=== PATIENT | female | born 1965 | race Caucasian/White ===

== ENCOUNTER → 2017-06-14 | Outpatient (CLI) | payer BC ==
--- NOTE | 2017-06-14 17:01 | Diagnostic Imaging Report ---
PROCEDURE: CT chest without contrast. TECHNIQUE: Multiple contiguous axial images were obtained through the chest without the use of intravenous contrast. INDICATION: Chronic bronchitis. Asthma. COPD. Dyspnea. Shortness of air. History of tuberculosis. COMPARISON: Chest radiograph dated 04/28/2006. FINDINGS: Evaluation of the lung windows demonstrates no focal consolidation, pleural effusion, nor pneumothorax. There is minimal scarring and/or atelectasis on the left. No pulmonary nodules or masses are identified. No central endobronchial obstructive lesions are seen. Evaluation of the remainder of the cardiomediastinal structures demonstrates normal heart size. There is no large pericardial effusion. No pathologically enlarged or morphologically abnormal adenopathy is seen within the mediastinum, saul, nor axilla. Note is made of rounded hyperdensity at the level of the thoracic inlet just inferior to the left thyroid. It measures approximately 1.7 x 1.4 cm. Bony structures show no acute abnormalities. Included portions of the upper abdomen show hypodense appearance of the hepatic parenchyma consistent with background of hepatic steatosis. There is also hepatosplenomegaly. IMPRESSION: 1. No acute cardiopulmonary process. 2. Hyperdensity at the level of the thoracic inlet inferior to the left thyroid lobe. Conceivably, this could be of thyroid origin. Other soft tissue lesion or adenopathy is not excluded. Correlation with dedicated thyroid sonogram is recommended. 3. Hepatic steatosis with hepatosplenomegaly. Dictated by: Dictated on workstation # [id number]
== END ==
LOC: RAD 15:28
PROVIDERS: ATTEND Nurse Practitioner Family
DX: K76.0 Fatty (change of) liver, not elsewhere classified (principal); R16.2 Hepatomegaly with splenomegaly, not elsewhere classified; J45.909 Unspecified asthma, uncomplicated; J44.9 Chronic obstructive pulmonary disease, unspecified; J42 Unspecified chronic bronchitis; G47.30 Sleep apnea, unspecified; Z86.11 Personal history of tuberculosis
CPT/HCPCS: 71250; 94060; 94726; 94729

== ENCOUNTER → 2017-06-29 | Outpatient (CLI) | payer BC, OTHER ==
[~2017-06-29] MED LIST: CATHETER FLUSH 10 ML SYR IV PRN; IOHEXOL 350 MG/ML 150 ML (OMNIPAQUE 350) VIAL IV ONE; NS 100 ML (IVPB) BAG IV ONE
--- NOTE | 2017-06-29 15:48 | Diagnostic Imaging Report ---
PROCEDURE: CT angiography of the chest with contrast. TECHNIQUE: Multiple contiguous axial images were obtained through the chest after uneventful bolus administration of intravenous contrast. Reconstructed CTA MIP acquisitions were also performed. INDICATION: COPD. History of old aortic dissection repaired with an aortic graft. CONTRAST: 125 mL of Omnipaque 350 was administered intravenously. FINDINGS: There is a soft tissue nodule seen measuring 1.7 cm along the inferior aspect of the right thyroid lobe. This could be arising from the thyroid gland although it is difficult to confirm on this study. There is normal appearance and caliber of the thoracic aorta with no dissection flap seen. No evidence of a stent graft. The pulmonary arteries are well opacified with patent pulmonary trunk, right and left main pulmonary arteries, and lobar branches. At the branch point, however, of the right lower lobe branch, there is a nonocclusive embolus seen extending to the proximal aspect of the segmental branches in the right lower lobe. There is no mediastinal mass or lymphadenopathy. No hilar lymphadenopathy is seen. The heart size is normal. No pleural or pericardial effusion. The axilla demonstrates no significantly enlarged lymph node. The lungs demonstrate no significant consolidation or mass. Sections of the upper abdomen demonstrate diffuse hepatic steatosis. The liver size is also mildly enlarged. Surgical clips around the liver are seen. The spleen is mildly enlarged measuring 14.9 x 6.7 x 14 cm. A small upper abdominal ventral hernia containing fat is noted. There is minimal right convexity scoliotic curvature seen in the thoracic spine. IMPRESSION: 1. There is a nonocclusive pulmonary embolism involving the right lower lobe artery branch point seen. 2. A 1.7 cm soft tissue nodule abutting the undersurface of the left thyroid lobe could be arising from the thyroid although it is not clear on this exam. This could be verified with a thyroid ultrasound. 3. Mild hepatosplenomegaly. The patient has a fatty liver. 4. Small upper abdominal fat-containing ventral hernia. 5. The findings of pulmonary embolism were discussed with Dr. Avila by phone at the time of dictation. Dictated by: Dictated on workstation # [id number]
--- NOTE | 2017-06-29 15:49 | Diagnostic Imaging Report ---
EXAMINATION: Bilateral lower extremity duplex venous ultrasound. TECHNIQUE: DVT protocol. Multiple sonographic images with color Doppler and waveform interrogation were performed of the lower extremity veins, bilaterally, with compression and augmentation maneuvers. INDICATION: Bilateral leg swelling and shortness of breath. FINDINGS: The lower extremity veins from the common femoral veins to below the knee veins were examined with normal color-flow, compressibility and normal waveform demonstrated. The great saphenous vein bilaterally is patent. IMPRESSION: No evidence of DVT in either lower extremity. Dictated by: Dictated on workstation # [id number]
== END ==
LOC: RAD 14:43
PROVIDERS: ATTEND Internal Medicine Critical Care Medicine
DX: I26.99 Other pulmonary embolism without acute cor pulmonale (principal); R22.43 Localized swelling, mass and lump, lower limb, bilateral; E04.1 Nontoxic single thyroid nodule; K76.0 Fatty (change of) liver, not elsewhere classified; K43.9 Ventral hernia without obstruction or gangrene
CPT/HCPCS: 71275; 93970

== ENCOUNTER → 2017-06-30 | Outpatient (CLI) | payer BC ==
[2017-06-30 08:56] LABS: BASOPHILS % (AUTO) 1 % (0-10); EOSINOPHILS # (AUTO) 0.3 10^3/uL (0.0-0.3); EOSINOPHILS % (AUTO) 6 % (0-10); LYMPHOCYTES # (AUTO) 1.1 X 10^3 (1.0-4.0); LYMPHOCYTES % (AUTO) 24 % (12-44); MEAN CORPUSCULAR HEMOGLOBIN 26 PG (25-34); MEAN CORPUSCULAR HGB CONC 32 G/DL (32-36); MEAN CORPUSCULAR VOLUME 83 FL (80-99); MEAN PLATELET VOLUME 9.6 FL (7.4-10.4); MONOCYTES # (AUTO) 0.5 X 10^3 (0.0-1.0); MONOCYTES % (AUTO) 10 % (0-12); NEUTROPHILS # (AUTO) 2.9 X 10^3 (1.8-7.8); NEUTROPHILS % (AUTO) 60 % (42-75); PLATELET COUNT 223 10^3/uL (130-400); RED BLOOD COUNT 4.57 10^6/uL (4.35-5.85); RED CELL DISTRIBUTION WIDTH 14.1 % (10.0-14.5); WHITE BLOOD COUNT 4.8 10^3/uL (4.3-11.0)
[2017-06-30 09:16] LABS: ALANINE AMINOTRANSFERASE 14 U/L (0-55); ALBUMIN 3.7 GM/DL (3.2-4.5); ANION GAP 7 MMOL/L (5-14); ASPARTATE AMINO TRANSFERASE 16 U/L (5-34); BILIRUBIN,TOTAL 0.3 MG/DL (0.1-1.0); BLOOD UREA NITROGEN 10 MG/DL (7-18); BUN/CREATININE RATIO 14; CALCIUM 9.6 MG/DL (8.5-10.1); CARBON DIOXIDE 31 MMOL/L (21-32); CHLORIDE 106 MMOL/L (98-107); CREATININE SERUM 0.74 MG/DL (0.60-1.30); GFR ESTIMATED > 60; GLUCOSE 106 MG/DL (70-105); POTASSIUM 4.2 MMOL/L (3.6-5.0); SODIUM 144 MMOL/L (135-145); TOTAL PROTEIN 6.9 GM/DL (6.4-8.2)
[2017-06-30 10:00] LABS: EOSINOPHILS % (MANUAL) 5 %; LYMPHOCYTES % (MANUAL) 33 %; NEUTROPHILS % (MANUAL) 54 %
== END ==
LOC: LAB 08:37
PROVIDERS: ATTEND Nurse Practitioner Family
DX: J44.9 Chronic obstructive pulmonary disease, unspecified (principal)
CPT/HCPCS: 36415; 80053; 85007; 85027

== ENCOUNTER → 2017-10-19 | Outpatient (CLI) | payer BC ==
[2017-10-19 15:39] LABS: BASOPHILS % (AUTO) 0 % (0-10); EOSINOPHILS # (AUTO) 0.2 10^3/uL (0.0-0.3); EOSINOPHILS % (AUTO) 3 % (0-10); HEMATOCRIT 40 % (35-52); HEMOGLOBIN 12.4 G/DL (11.5-16.0); LYMPHOCYTES # (AUTO) 1.9 X 10^3 (1.0-4.0); LYMPHOCYTES % (AUTO) 27 % (12-44); MEAN CORPUSCULAR HEMOGLOBIN 25 PG (25-34); MEAN CORPUSCULAR HGB CONC 31 G/DL (32-36); MEAN CORPUSCULAR VOLUME 81 FL (80-99); MEAN PLATELET VOLUME 9.8 FL (7.4-10.4); MONOCYTES # (AUTO) 0.6 X 10^3 (0.0-1.0); MONOCYTES % (AUTO) 9 % (0-12); NEUTROPHILS # (AUTO) 4.3 X 10^3 (1.8-7.8); NEUTROPHILS % (AUTO) 61 % (42-75); PLATELET COUNT 243 10^3/uL (130-400); RED BLOOD COUNT 4.89 10^6/uL (4.35-5.85); RED CELL DISTRIBUTION WIDTH 13.7 % (10.0-14.5)
== END ==
LOC: LAB 15:24
PROVIDERS: ATTEND Nurse Practitioner Family
DX: J44.9 Chronic obstructive pulmonary disease, unspecified (principal); R09.02 Hypoxemia; I26.99 Other pulmonary embolism without acute cor pulmonale; J98.4 Other disorders of lung
CPT/HCPCS: 36415; 85025

== ENCOUNTER 2017-11-30 13:00 | Outpatient (RCR) | payer BC, OTHER | END 2017-12-03 | disposition home or self-care (01) | LOC: PULM 13:00 | PROVIDERS: ATTEND Nurse Practitioner Family | DX: F41.9 Anxiety disorder, unspecified (principal); J45.909 Unspecified asthma, uncomplicated; J44.9 Chronic obstructive pulmonary disease, unspecified; E07.9 Disorder of thyroid, unspecified; G47.30 Sleep apnea, unspecified; J98.4 Other disorders of lung; R94.2 Abnormal results of pulmonary function studies; R09.02 Hypoxemia | CPT/HCPCS: 99211 ==

== ENCOUNTER → 2017-12-05 | Outpatient (CLI) | payer BC, OTHER ==
[2017-12-05 14:24] LABS: HEMOGLOBIN 12.6 G/DL (11.5-16.0); MEAN PLATELET VOLUME 10.5 FL (7.4-10.4); RED BLOOD COUNT 4.93 10^6/uL (4.35-5.85); RED CELL DISTRIBUTION WIDTH 14.3 % (10.0-14.5); WHITE BLOOD COUNT 8.3 10^3/uL (4.3-11.0)
[2017-12-05 14:43] LABS: BUN/CREATININE RATIO 15; CREATININE SERUM 0.81 MG/DL (0.60-1.30); GFR ESTIMATED > 60
--- NOTE | 2017-12-05 16:10 | Diagnostic Imaging Report ---
PROCEDURE: CT angiography of the chest with contrast. TECHNIQUE: Multiple contiguous axial images were obtained through the chest after uneventful bolus administration of intravenous contrast. Reconstructed CTA MIP acquisitions were also performed. 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 COMPARISON: Comparison is made to study of 06/29/2017. FINDINGS: On the current examination, there is good opacification of pulmonary arteries without evidence of persistent or recurrent filling defect to indicate embolism. There are also persistent focal areas of pleural thickening and subpleural parenchymal densities in the left lung. Calcification is seen along the right diaphragmatic dome. There is a persistent 1.1 cm nodule projecting along the inferior margin of the left lobe of the thyroid gland. Otherwise, there is no evidence of significant pleural or pericardial fluid. No pathologic adenopathy is seen in the thorax. IMPRESSION: No CTA evidence of pulmonary embolism. Subpleural density likely represents scarring in the left lung. There has been mild overall increase in size of nodule along the inferior margin of the left lobe of the thyroid gland. Ultrasonography could be performed for further assessment. Dictated by: Dictated on workstation # [id number]
== END ==
LOC: RAD 10-19 15:21
PROVIDERS: ATTEND Nurse Practitioner Family
DX: J44.9 Chronic obstructive pulmonary disease, unspecified (principal); I26.99 Other pulmonary embolism without acute cor pulmonale; E04.1 Nontoxic single thyroid nodule; J98.4 Other disorders of lung; F41.9 Anxiety disorder, unspecified
CPT/HCPCS: 36415; 71275; 82565; 84520; 85027

== ENCOUNTER → 2017-12-12 | Outpatient (CLI) | payer BC ==
[2017-12-12 17:00] LABS: ABG BASE EXCESS 2.8 MMOL/L (-2.5-2.5); ABG OXYGEN SATURATION 97 % (94-100); ABG PCO2 47 MMHG (35-45); ABG PH 7.39 (7.37-7.43); ABG PO2 81 MMHG (79-93); ABG TCO2 28.9 MMOL/L (21.0-31.0); ALLENS TEST YES-POS; INSPIRED O2 3L; VENTILATOR NO
[2017-12-12 17:01] LABS: PATIENT TEMP 98.2
== END ==
LOC: PULM 15:37
PROVIDERS: ATTEND Nurse Practitioner Family
DX: J45.909 Unspecified asthma, uncomplicated (principal); J42 Unspecified chronic bronchitis; R94.2 Abnormal results of pulmonary function studies; R09.02 Hypoxemia; J98.4 Other disorders of lung
CPT/HCPCS: 82805

== ENCOUNTER → 2017-12-18 | Outpatient (CLI) | payer BC | LOC: RT 11:38 | PROVIDERS: ATTEND Nurse Practitioner Family | DX: J98.4 Other disorders of lung (principal); J45.909 Unspecified asthma, uncomplicated; J42 Unspecified chronic bronchitis | CPT/HCPCS: 94060; 94726; 94729 ==

== ENCOUNTER 2017-12-19 13:00 | Outpatient (RCR) | payer BC, OTHER | END 2018-03-07 | disposition home or self-care (01) | LOC: PULM 13:00 | PROVIDERS: ATTEND Nurse Practitioner Family | DX: F41.9 Anxiety disorder, unspecified (principal); J45.909 Unspecified asthma, uncomplicated; J44.9 Chronic obstructive pulmonary disease, unspecified; E07.9 Disorder of thyroid, unspecified; G47.30 Sleep apnea, unspecified; J98.4 Other disorders of lung; R94.2 Abnormal results of pulmonary function studies; R09.02 Hypoxemia ==

== ENCOUNTER 2018-07-17 14:37 | Outpatient (CLI) | payer BC ==
[~2018-07-17] VITALS: Ht 162.6 cm; Wt 129.3 kg
[2018-07-17] MEDS ORDERED: ARMO150T2 PO (14:50)
[2018-07-17] MEDS ORDERED: FLUT9.9S NS (14:50)
[2018-07-17] MEDS ORDERED: LOVA40TA2 PO (14:50)
[2018-07-17] MEDS ORDERED: PANT40TA3 PO (14:50)
[2018-07-17] MEDS ORDERED: NAPR220T66 PO (14:50)
[2018-07-17] MEDS ORDERED: TIOT18CA2 IH (14:50)
[2018-07-17] MEDS ORDERED: NF-ROPIN4T PO (14:50)
[2018-07-17] MEDS ORDERED: LEVO5TAB28 PO (14:50)
[2018-07-17] MEDS ORDERED: CETI10TA17 PO (14:50)
[2018-07-17] MEDS ORDERED: FESO8TAB PO (14:50)
[2018-07-17] MEDS ORDERED: TRAZ150T72 PO (14:50)
[2018-07-17] MEDS ORDERED: ACET-2650 PO (14:50)
[2018-07-17] MEDS ORDERED: BISA5TAB8 PO (14:50)
[2018-07-17] MEDS ORDERED: MILN100T PO (14:50)
[2018-07-17] MEDS ORDERED: FLUT1BLS IH (14:50)
[2018-07-17] MEDS ORDERED: LAMO100T69 PO (14:50)
[2018-07-17] MEDS ORDERED: ARIP5TAB12 PO (14:50)
[2018-07-17] MEDS ORDERED: THYR60TA27 PO (14:57)
== END 2018-07-17 15:09 | disposition home or self-care (01) ==
LOC: PREOP 14:37
PROVIDERS: ATTEND Surgery
DX: Z01.818 Encounter for other preprocedural examination (principal)

== ENCOUNTER 2018-07-18 11:37 | Day surgery (SDC) | payer BC ==
[~2018-07-18] VITALS: Ht 162.6 cm; Wt 129.3 kg
[~2018-07-18 11:37] MED LIST changes: +ACET-2650 PO; +ARIP5TAB12 PO; +ARMO150T2 PO; +BISA5TAB8 PO; -CATHETER FLUSH 10 ML SYR IV PRN; +CETI10TA17 PO; +FESO8TAB PO; +FLUT1BLS IH; +FLUT9.9S NS; -IOHEXOL 350 MG/ML 150 ML (OMNIPAQUE 350) VIAL IV ONE; +LAMO100T69 PO; +LEVO5TAB28 PO; +LOVA40TA2 PO; +MILN100T PO; +NAPR220T66 PO; +NF-ROPIN4T PO; -NS 100 ML (IVPB) BAG IV ONE; +PANT40TA3 PO; +THYR60TA27 PO; +TIOT18CA2 IH; +TRAZ150T72 PO
--- OUTSIDE RECORDS SUMMARY | 2018-07-18 11:41 | XMS REPORT | CCD ---
Author Author CYRUS INMAN Organization Unknown Address [address] [place] [address] Care Team Providers Care Threshing Department Supervisor Name Role Phone PURVI GRULLON, HUSAM SINGH Attphys Allergies Allergy Code Allergy Type Reaction Status PERCOCET 34328 Drug allergy ITCHING Active ALBUTEROL 435 Drug allergy TACHYCARDIA Active Active Medications No Active Medications Problems Unknown or Not Available. Procedures Procedure Code Procedure Type Date Arthrs kne surg w/meniscectomy med/lat w/shvg; (-LT Left side of body) 08403 CPT 05/27/2016 Results Unknown or Not Available. Function Status Unknown or Not Available. History of Immunizations Unknown or Not Available. Plan of Treatment Unknown or Not Available. Social History Smoking Status Code Start Date End Date Never smoker [id number] Vital Signs Vital Sign Value Unit Date/Time Recent/Initial? Weight Measured 260 [lb_av] 05/12/2016 12:23 Initial VS Height 65 [in_i] 05/12/2016 12:23 Initial VS BMI (Body Mass Index) 43.27 kg/m2 05/12/2016 12:23 Initial VS BSA (Body Surface Area) 2.33 m2 05/12/2016 12:23 Initial VS Respiratory Rate 16 /min 05/27/2016 09:53 Initial VS Heart Rate 82 /min 05/27/2016 09:53 Initial VS O2 % BldC Oximetry 90 % 05/27/2016 09:53 Initial VS BP Systolic 116 mm[Hg] 05/27/2016 09:54 Initial VS BP Diastolic 45 mm[Hg] 05/27/2016 09:54 Initial VS BP Systolic 130 mm[Hg] 05/27/2016 10:29 Most Recent VS BP Diastolic 57 mm[Hg] 05/27/2016 10:29 Most Recent VS Respiratory Rate 16 /min 05/27/2016 10:29 Most Recent VS Heart Rate 72 /min 05/27/2016 10:29 Most Recent VS O2 % BldC Oximetry 96 % 05/27/2016 10:29 Most Recent VS Function Status Unknown or Not Available. Goals Unknown or Not Available. ASSESSMENTS Unknown or Not Available. Health Concerns Section Unknown or Not Available.
--- OUTSIDE RECORDS SUMMARY | 2018-07-18 11:41 | XMS REPORT | CCD ---
Author Author IJEOMA BURT Organization Unknown Address [address] [address] [place] [address] Care Team Providers Care Cancer Registrar Name Role Phone HOLLI PHYS, JO ER Attphys HOLLI PHYS, JO ER Prisurg Allergies Allergy Code Allergy Type Reaction Status PERCOCET 32492 Drug allergy ITCHING Active ALBUTEROL 435 Drug allergy TACHYCARDIA Active Active Medications Unknown or Not Available. Problems Unknown or Not Available. Procedures Procedure Code Procedure Type Date FOOT [id number] 12/28/2016 KNEE [id number] 12/28/2016 Results Unknown or Not Available. Encounters Encounter Diagnosis Diagnosis Code Start Date Abrasion, left knee, initial encounter [id number] 12/28/2016 Function Status Unknown or Not Available. History of Immunizations Immunization Code Date influenza, split (incl. purified surface antigen) 15 07/25/2008 influenza, split (incl. purified surface antigen) 15 07/06/2009 Tdap 115 04/26/2012 Plan of Treatment Unknown or Not Available. Social History Smoking Status Code Start Date End Date Never smoker [id number] Vital Signs Unknown or Not Available. Function Status Unknown or Not Available. Goals Unknown or Not Available. ASSESSMENTS Unknown or Not Available. Health Concerns Section Unknown or Not Available.
--- OUTSIDE RECORDS SUMMARY | 2018-07-18 11:46 | XMS REPORT ---
Author Author Sean Marie [facility] Address [address] [place], [place] [id number] Care Team Providers Care Student Dean Name Role Phone Sean Marie PCP Sean Marie PreferredProvider Allergies and Adverse Reactions Name Reaction Notes Albuterol tachycardia increases heart rate too much Percocet "head crawling" Adhesive Tape Plan of Treatment Planned Activity Comments Planned Date Planned Time Plan/Goal Mammography; bilateral 11/13/2017 12:00 AM CBC With Auto Differential 01/08/2013 12:00 AM CBC With Auto Differential 05/22/2018 12:00 AM CMP 05/22/2018 12:00 AM Thyroid stimulating hormone (TSH) 05/22/2018 12:00 AM T4 FREE 05/22/2018 12:00 AM T3 FREE 05/22/2018 12:00 AM EKG (12-lead electrocardiogram) 06/26/2013 12:00 AM fibromyalgia, RLS EKG (12-lead electrocardiogram) 04/01/2015 12:00 AM Medications Active Name Start Date Estimated Completion Date SIG Comments pravastatin 20 mg oral tablet 02/03/2014 TAKE ONE TABLET BY MOUTH EVERY DAY AT BEDTIME lovastatin 40 mg oral tablet 06/12/2014 take 1 tablet by oral route daily baclofen 10 mg oral tablet 08/22/2014 take 1 tablet by oral route 3 times a day as needed lovastatin 40 mg oral tablet 10/06/2014 TAKE ONE TABLET BY MOUTH ONCE DAILY AT BEDTIME lovastatin 40 mg oral tablet 11/10/2014 TAKE ONE TABLET BY MOUTH ONCE DAILY AT BEDTIME lovastatin 40 mg oral tablet 02/03/2015 TAKE ONE TABLET BY MOUTH ONCE DAILY AT BEDTIME lovastatin 40 mg oral tablet 05/11/2015 TAKE ONE TABLET BY MOUTH ONCE DAILY AT BEDTIME ropinirole 2 mg oral tablet 07/13/2015 TAKE ONE TABLET BY MOUTH ONCE DAILY AT BEDTIME furosemide 40 mg oral tablet 09/21/2015 TAKE ONE TABLET BY MOUTH ONCE DAILY IN THE MORNING NEEDED lovastatin 40 mg oral tablet 11/02/2015 TAKE ONE TABLET BY MOUTH ONCE DAILY AT BEDTIME pantoprazole 40 mg oral tablet,delayed release (DR/EC) 12/08/2015 TAKE ONE TABLET BY MOUTH ONCE DAILY Xopenex HFA 45 mcg/actuation inhalation HFA aerosol inhaler 09/19/2016 inhale 2 puffs (90 mcg) by inhalation route every 6 hours furosemide 40 mg oral tablet 03/20/2017 take 1-2 tablets by oral route daily as needed Flonase Allergy Relief 50 mcg/actuation nasal spray,suspension Singulair oral Zyrtec oral Breo Ellipta 100-25 mcg/dose inhalation blister with device 07/07/2017 inhale 1 puff by inhalation route once daily at the same time each day Xanax 0.25 mg oral tablet 09/11/2017 take 1 tablet by oral route 2 times a day as needed Toviaz 8 mg oral tablet extended release 24 hr 02/27/2018 TAKE ONE TABLET BY MOUTH ONCE DAILY Nuvigil 150 mg oral tablet 02/28/2018 06/28/2018 take 1 tablet (150 mg) by oral route once daily in the morning for 30 days lamotrigine 100 mg oral tablet 03/26/2018 TAKE ONE TABLET BY MOUTH ONCE DAILY (FILL AFTER TAPER OF 25 MG IS COMPLETE) Savella 50 mg oral tablet take 1 tablet (50 mg) by oral route 2 times per day Tylenol Arthritis Pain 650 mg oral tablet extended release take 2 tablets (1,300 mg) by oral route every 8 hours swallowing whole with water. Do not break, crush, dissolve and/or chew. Aleve 220 mg oral tablet take 2 tablet by oral route every 12 hours as needed trazodone 150 mg oral tablet take 1 tablet at bedtime aripiprazole 5 mg oral tablet 05/14/2018 TAKE 1 TABLET BY MOUTH ONCE DAILY Name Start Date Expiration Date SIG Comments Synthroid 50 mcg oral tablet 11/16/2009 02/14/2010 1QD - TAKE ONE TABLET BY MOUTH EVERY DAY Bactrim DS 800-160 mg oral tablet 02/08/2010 02/22/2010 take 1 tablet by oral route every 12 hours for 14 days Medrol (Jeronimo) 4 mg oral tablets,dose pack 03/03/2010 03/13/2010 take as directed for 5 days Levaquin 500 mg oral tablet 03/03/2010 03/10/2010 take 1 tablet (500 mg) by oral route once daily for 7 days SYNTHROID 50MCG TAB 50 each 12/13/2010 03/13/2011 1QD - TAKE ONE TABLET BY MOUTH EVERY DAY Flagyl 500 mg oral tablet 03/03/2011 03/10/2011 take 1 tablet (500 mg) by oral route every 12 hours for 7 days Lunesta 3 mg oral tablet 03/08/2011 03/08/2011 take 1 tablet (3 mg) by oral route once daily at bedtime Requip 2 mg oral tablet 04/19/2011 04/13/2012 1HS - TAKE ONE TABLET BY MOUTH AT BEDTIME Zithromax Z-Jeronimo 250 mg oral tablet 07/12/2011 07/17/2011 take 2 tablets ( 500 mg) by oral route once daily for 1 day then 1 tablet (250 mg) by oral route once daily for 4 days Levaquin 500 mg oral tablet 08/05/2011 08/12/2011 take 1 tablet (500 mg) by oral route once daily for 7 days Tussionex Pennkinetic ER 10-8 mg/5 mL oral suspension,extended rel 12 hr 201008/15/2011 take 5 milliliters by oral route every 12 hours for 10 days Levaquin 750 mg oral tablet 10/24/2011 10/31/2011 take 1 tablet by oral route daily for 7 days venlafaxine 150 mg oral capsule,extended release 24hr 03/05/2012 06/03/2012 TAKE ONE CAPSULE BY MOUTH EVERY DAY amoxicillin 500 mg oral capsule 10/30/2012 11/09/2012 take 2 capsules by oral route 3 times a day for 5 days Dexilant 60 mg oral capsule,biphase delayed releas 01/08/2013 01/03/2014 take 1 capsule (60 mg) by oral route once daily for 90 days prednisone 20 mg oral tablet 05/03/2013 05/12/2013 take 3 tabs PO x 3 days, then 2 tabs PO x 3 days, and then 1 tab PO x 3 days ropinirole 2 mg oral tablet 07/01/2013 08/30/2013 TAKE ONE TABLET BY MOUTH AT BEDTIME levothyroxine 75 mcg oral tablet 05/06/2013 06/05/2013 TAKE ONE TABLET BY MOUTH EVERY DAY loratadine 10 mg oral tablet 06/17/2013 07/17/2013 TAKE ONE TABLET BY MOUTH EVERY DAY Zithromax Z-Jeronimo 250 mg oral tablet 07/24/2013 07/29/2013 take 2 tablets ( 500 mg) by oral route once daily for 1 day then 1 tablet (250 mg) by oral route once daily for 4 days Cymbalta 60 mg oral capsule,delayed release(DR/EC) 11/14/2013 11/09/2014 TAKE ONE CAPSULE BY MOUTH EVERY DAY pravastatin 20 mg oral tablet 11/21/2013 02/19/2014 take 1 tablet (20 mg) by oral route once daily at bedtime for 30 days Naprosyn 500 mg oral tablet 08/01/2014 08/31/2014 take 1 tablet (500 mg) by oral route 2 times per day with food for 30 days Keflex 500 mg oral capsule 10/22/2014 10/29/2014 take 1 capsule (500 mg) by oral route every 12 hours for 7 days Vibramycin 100 mg oral capsule 01/26/2015 02/09/2015 take 1 capsule (100 mg) by oral route every 12 hours for 14 days Protonix 40 mg oral tablet,delayed release (DR/EC) 03/19/2015 06/11/2016 take 1 tablet (40 mg) by oral route once daily for 90 days Levaquin 500 mg oral tablet 04/01/2015 04/08/2015 take 1 tablet by oral route daily for 7 days Skelaxin 800 mg oral tablet 06/05/2015 07/05/2015 take 1 tablet (800 mg) by oral route 3 times per day as needed for 30 days Toviaz 8 mg oral tablet extended release 24 hr 08/25/2015 11/17/2016 take 1 tablet (8 mg) by oral route once daily for 90 days Flagyl 500 mg oral tablet 11/03/2015 11/10/2015 take 1 tablet (500 mg) by oral route every 12 hours for 7 days azithromycin 250 mg oral tablet 12/09/2015 12/14/2015 take 2 tablets (500 mg) by oral route once daily for 1 day then 1 tablet (250 mg) by oral route once daily for 4 days orphenadrine citrate 100 mg oral tablet extended release 12/31/2015 04/29/2016 take 1 tablet (100 mg) by oral route 2 times per day in the morning and evening for 30 days prednisone 20 mg oral tablet 01/16/2016 01/20/2016 take 2 tabs daily x 2 days then 1 tab daily x 2 days triamcinolone acetonide 0.1 % topical cream 01/16/2016 01/23/2016 apply a thin layer to the affected area(s) by topical route 2 times per day for 7 days Lyrica 75 mg oral capsule 02/25/2016 03/10/2016 take 2 capsules (150 mg) by oral route 2 times per day for 14 days amitriptyline 50 mg oral tablet 05/20/2016 09/17/2016 take 1 tablet (50 mg) by oral route once daily at bedtime for 30 days Brovana 15 mcg/2 mL inhalation solution for nebulization 09/19/20162016 inhale 2 milliliters (15 mcg) by inhalation route 2 times per day for 30 days Bactrim DS 800-160 mg oral tablet 03/03/2017 03/10/2017 take 1 tablet by oral route 2 times per day for 7 days Cymbalta 30 mg oral capsule,delayed release(DR/EC) 03/20/2017 07/18/2017 take 1 capsule (30 mg) by oral route once daily for 30 days oxycodone 15 mg oral tablet 07/31/2017 take 1 tablet (15 mg) by oral route every 4 hours HAND PICKER Thyroid 60 mg oral tablet 07/31/2017 07/31/2017 TAKE ONE TABLET BY MOUTH ONCE DAILY Toviaz 8 mg oral tablet extended release 24 hr 09/26/2017 09/26/2017 TAKE ONE TABLET BY MOUTH ONCE DAILY ropinirole 4 mg oral tablet 10/10/2017 10/10/2017 TAKE ONE TABLET BY MOUTH ONCE DAILY 1-3 HOURS BEFORE BEDTIME OxyContin 40 mg oral tablet,oral only,ext.rel.12 hr 10/23/2017 11/22/2017 take 1 tablet (40 mg) by oral route every 12 hours for 30 days lovastatin 40 mg oral tablet 10/30/2017 10/30/2017 TAKE ONE TABLET BY MOUTH ONCE DAILY AT BEDTIME lamotrigine 100 mg oral tablet 10/30/2017 10/30/2017 TAKE ONE TABLET BY MOUTH ONCE DAILY Spiriva Respimat 2.5 mcg/actuation inhalation mist 11/29/2017 11/29/2017 INHALE TWO SPRAY(S) BY MOUTH ONCE DAILY AT THE SAME TIME EACH DAY levalbuterol tartrate 45 mcg/actuation inhalation HFA aerosol inhaler 201711/29/2017 INHALE TWO PUFFS INTO LUNGS EVERY 6 HOURS pantoprazole 40 mg oral tablet,delayed release (DR/EC) 12/04/2017 12/04/2017 TAKE ONE TABLET BY MOUTH ONCE DAILY duloxetine 60 mg oral capsule,delayed release(DR/EC) 12/25/2017 12/25/2017 TAKE ONE CAPSULE BY MOUTH ONCE DAILY Movantik 25 mg oral tablet 12/25/2017 12/25/2017 TAKE ONE TABLET BY MOUTH IN THE MORNING tizanidine 4 mg oral tablet 01/01/2018 01/01/2018 TAKE ONE TABLET BY MOUTH EVERY 8 HOURS NEEDED FOR 30 DAYS (NOT TO EXCEED 3 DOSES IN 24 HOURS) OxyContin 40 mg oral tablet,oral only,ext.rel.12 hr 03/09/2018 04/08/2018 take 1 tablet (40 mg) by oral route every 12 hours for 30 days Lunesta 3 mg oral tablet 03/29/2018 04/28/2018 take 1 tablet (3 mg) by oral route once daily at bedtime for 30 days Discontinued Name Start Date Discontinued Date SIG Comments Lortab 5-500 mg oral tablet 02/08/2010 03/03/2010 take 1 tablet by oral route every 4 hours as needed for pain Ambien 10 mg oral tablet 02/08/2010 03/08/2011 take 1 tablet (10 mg) by oral route once daily at bedtime AMBIEN 10MG TAB 10 each 01/03/2011 03/08/2011 1HSPRN FOR INSOMNIA - TAKE ONE TABLET BY MOUTH AT BEDTIME NEEDED FOR INSOMNIA Dexilant 60 mg oral capsule,biphase delayed releas 03/03/2011 03/23/2011 take 1 capsule (60 mg) by oral route once daily for 90 days Seroquel 50 mg oral tablet 03/17/2011 03/23/2011 take 1 tablet by oral route once a day (at bedtime) Ambien 10 mg oral tablet 04/13/2011 take 1 tablet (10 mg) by oral route once daily at bedtime tramadol 50 mg oral tablet 07/12/2011 take 1 tablet by oral route every 6 hours Mobic 7.5 mg oral tablet 07/12/2011 take 1 tablet (7.5 mg) by oral route once daily folic acid 800 mcg oral tablet 02/27/2013 take 1 tablet (0.8 mg) by oral route once daily niacin 500 mg oral tablet 02/27/2013 take 1 tab @ HS aspirin 81 mg oral tablet,delayed release (DR/EC) 07/07/2017 take 1 tablet (81 mg) by oral route once daily triamcinolone acetonide 0.1 % topical cream 07/12/2011 05/03/2013 apply a thin layer to the affected area(s) by topical route 2 times per day Alen DM Cough and Chest 10-200 mg/5 mL oral liquid 07/12/2011 07/13/2011 take 5 milliliters by oral route 2 times a day hydrocodone-chlorpheniramine 10-8 mg/5 mL oral suspension,extended rel 12 hr 07/13/2011 02/27/2013 take 5 milliliters by oral route every 12 hours Toviaz 8 mg oral tablet extended release 24 hr 06/26/2013 take 1 tablet (8 mg) by oral route once daily Lortab 5-500 mg oral tablet 10/30/2012 06/09/2014 take 1 tablet by oral route 4 times a day as needed Premarin 0.625 mg/gram vaginal cream 10/30/2012 05/03/2013 insert 0.5 gram by vaginal route twice weekly Provera 5 mg oral tablet 03/05/2013 05/03/2013 take 1 tablet (5 mg) by oral route once daily promethazine-codeine 6.25-10 mg/5 mL oral syrup 03/28/2013 05/03/2013 take 5 milliliters by oral route every 6 hours as needed, not to exceed 30 mL in 24 hours Singulair 10 mg oral tablet 03/27/2013 11/24/2014 take 1 tablet (10 mg) by oral route once daily in the evening tramadol 50 mg oral tablet 11/14/2013 06/09/2014 take 1 tablet by oral route 3 times a day Estrace 0.01 % (0.1 mg/gram) vaginal cream 11/14/2013 06/09/2014 use vaginally twice a week Lyrica 75 mg oral capsule 11/25/2013 12/02/2013 take 1 capsule (75 mg) by oral route 2 times per day Lamar Thyroid 60 mg oral tablet 12/02/2013 take 1 tablet by oral route daily for 30 days Lamar Thyroid 60 mg oral tablet 04/07/2014 TAKE ONE TABLET BY MOUTH ONCE DAILY milk thistle oral 11/24/2014 chromium picolinate oral 06/09/2014 Zofran ODT oral 10/09/2015 Dexilant 60 mg oral capsule,biphase delayed releas 07/09/2014 11/24/2014 TAKE ONE CAPSULE BY MOUTH EVERY DAY Lamar Thyroid 60 mg oral tablet 08/04/2014 TAKE ONE TABLET BY MOUTH ONCE DAILY Abilify 5 mg oral tablet 11/24/2014 take 1 tablet (5 mg) by oral route once daily Naprosyn 500 mg oral tablet 08/11/2014 08/22/2014 take 1 tablet (500 mg) by oral route 2 times per day with food for 30 days Zantac 150 mg oral tablet 08/11/2014 03/04/2015 take 1 tablet (150 mg) by oral route 2 times per day for 90 days starting dexilant Dulera 200-5 mcg/actuation inhalation HFA aerosol inhaler 08/11/20142014 inhale 2 puffs by inhalation route 2 times a day Ambien 5 mg oral tablet 10/09/2015 take 1 tablet (5 mg) by oral route once daily at bedtime [place] 5-325 mg oral tablet 08/22/2014 11/24/2014 take 1 tablet by oral route every 6 hours as needed for pain trazodone 150 mg oral tablet 11/17/2014 04/01/2015 TAKE ONE TABLET BY MOUTH EVERY DAY AT BEDTIME Abilify 2 mg oral tablet 05/20/2016 phentermine 37.5 mg oral tablet 10/09/2015 take 1 tablet in morning Dexilant 60 mg oral capsule,biphase delayed releas 03/05/2015 take 1 capsule (60 mg) by oral route once daily Requip 2 mg oral tablet 03/19/2015 10/09/2015 take 1 tablet by mouth at bedtime. for 90 days Garcinia Cambogia 200-500 mcg-mg oral tablet 10/09/2015 triamcinolone acetonide 0.1 % topical cream 05/06/2015 10/09/2015 apply a thin layer to the affected area(s) by topical route 2 times per day Lamar Thyroid 60 mg oral tablet 07/13/2015 TAKE ONE TABLET BY MOUTH ONCE DAILY Xopenex 1.25 mg/3 mL inhalation solution for nebulization 08/21/20152016 inhale 3 milliliters (1.25 mg) by nebulization route 3 times per day promethazine-codeine 6.25-10 mg/5 mL oral syrup 08/25/2015 10/09/2015 take 5 milliliters by oral route every 6 hours as needed, not to exceed 30 mL in 24 hours Pennsaid 20 mg/gram /actuation(2 %) topical solution in metered-dose pump 11/03/2015 apply 2 pumps (40 mg) to the affected knee(s) by topical route 2 times per day Saxenda 3 mg/0.5 mL (18 mg/3 mL) subcutaneous pen injector 09/10/20152015 inject 0.5 milliliter (3 mg) by subcutaneous route once daily in the abdomen, thigh, or upper arm metaxalone 800 mg oral tablet 10/12/2015 11/17/2015 TAKE ONE TABLET BY MOUTH THREE TIMES DAILY NEEDED Lyrica 75 mg oral capsule 10/12/2015 11/17/2015 take 1 capsule by oral route 3 times a day for 30 days Movantik 25 mg oral tablet 07/01/2016 09/19/2016 take 1 tablet (25 mg) by oral route once daily in the morning for 30 days Lamar Thyroid 60 mg oral tablet 07/11/2016 08/09/2017 TAKE ONE TABLET BY MOUTH ONCE DAILY Abilify 10 mg oral tablet 09/23/2016 03/03/2017 take 1 tablet (10 mg) by oral route once daily Amitiza 8 mcg oral capsule 03/03/2017 take 1 capsule (8 mcg) by oral route 2 times per day with food and water Premarin 0.3 mg oral tablet 01/09/2017 07/07/2017 take 1 tablet (0.3 mg) by oral route once daily for 30 days Xarelto 15 mg oral tablet 08/31/2017 take 1 tablet (15 mg) by oral route 2 times per day with food Lamictal 100 mg oral tablet 07/07/2017 04/30/2018 take 1 tablet (100 mg) by oral route once daily for 30 days duloxetine 30 mg oral capsule,delayed release(DR/EC) 07/10/2017 04/11/2018 TAKE ONE CAPSULE BY MOUTH ONCE DAILY cyclobenzaprine 10 mg oral tablet 08/09/2017 10/27/2017 take 1 tablet by oral route 3 times a day as needed Saxenda 3 mg/0.5 mL (18 mg/3 mL) subcutaneous pen injector 08/09/20172017 inject 3 mg by subcutaneous route once daily in the abdomen, thigh, or upper arm Xarelto 20 mg oral tablet 01/29/2018 take 1 tablet (20 mg) by oral route once daily with the evening meal [place] 10-325 mg oral tablet 01/19/2018 04/30/2018 take 1 tablet by oral route every 6 hours as needed for pain Abilify 5 mg oral tablet 01/19/2018 05/22/2018 take 1 tablet (5 mg) by oral route once daily Ambien 10 mg oral tablet 03/26/2018 04/30/2018 take 1 tablet (10 mg) by oral route once daily at bedtime for 30 days gabapentin 600 mg oral tablet 03/29/2018 04/11/2018 take 1 tablet (600 mg) by oral route at HS gabapentin 300 mg oral capsule 03/29/2018 04/11/2018 take 1 capsule (300 mg) by oral route 2 times per day Belsomra 10 mg oral tablet 04/30/2018 TAKE 1 TABLET BY MOUTH AT BEDTIME FOR INSOMNIA clonidine HCl 0.1 mg oral tablet 04/23/2018 05/22/2018 take 1 tablet by oral route 3 times a day as needed for 30 days Belsomra 15 mg oral tablet 04/23/2018 04/30/2018 TAKE 1 TABLET BY MOUTH AT BEDTIME Belsomra 20 mg oral tablet 05/04/2018 05/09/2018 TAKE 1 TABLET BY MOUTH AT BEDTIME Problem List Description Status Onset Hypothyroidism, acquired Active Allergic rhinitis; due to other allergen Active Chronic Obstructive Pulmonary Disease Active 10/24/2011 Osteoarthritis Active 11/14/2013 Hyperlipidemia, unspecified Active 06/11/2014 Vital Signs Date Time BP-Sys(mm[Hg] BP-Jocelyn(mm[Hg]) HR(bpm) RR(rpm) Temp WT HT HC BMI BSA BMI Percentile O2 Sat(%) 05/22/2018 2:37:00 PM 146 mmHg 98 mmHg 87 bpm 18 rpm 97.9 F 289.25 lbs 65 in 48.1332 kg/m 2.453 m 97 % 04/30/2018 2:17:00 PM 140 mmHg 92 mmHg 95 bpm 20 rpm 98.2 F 286.375 lbs 65 in 47.65 kg/m2 2.44 m2 97 % 04/11/2018 1:12:00 PM 138 mmHg 84 mmHg 92 bpm 98.2 F 282.125 lbs 65 in 46.9476 kg/m 2.4226 m 97 % 03/29/2018 3:06:00 PM 138 mmHg 78 mmHg 84 bpm 18 rpm 98.4 F 278 lbs 65 in 46.26 kg/m2 2.40 m2 98 % 03/09/2018 8:58:00 AM 151 mmHg 85 mmHg 94 bpm 18 rpm 98.8 F 271.25 lbs 65 in 45.1379 kg/m 2.3754 m 95 % 02/28/2018 8:02:00 AM 130 mmHg 74 mmHg 89 bpm 18 rpm 97.9 F 268.125 lbs 65 in 44.62 kg/m2 2.36 m2 97 % 01/29/2018 3:32:00 PM 149 mmHg 81 mmHg 89 bpm 98.6 F 263.375 lbs 65 in 43.8274 kg/m 2.3407 m 10/27/2017 9:06:00 AM 130 mmHg 75 mmHg 90 bpm 20 rpm 99.2 F 264 lbs 65 in 43.93 kg/m2 2.34 m2 97 % 10/23/2017 8:32:00 AM 166 mmHg 84 mmHg 87 bpm 16 rpm 98.9 F 270 lbs 65 in 44.9299 kg/m 2.3699 m 97 % 09/20/2017 11:24:00 AM 150 mmHg 80 mmHg 83 bpm 98.8 F 268.25 lbs 97 % 08/31/2017 2:54:00 PM 140 mmHg 82 mmHg 87 bpm 99 F 276.125 lbs 96 % 08/09/2017 9:19:00 AM 144 mmHg 82 mmHg 34 bpm 83 rpm 97.5 F 274 lbs 65 in 45.5955 kg/m 2.3874 m 97 % 07/07/2017 8:42:00 AM 152 mmHg 76 mmHg 77 bpm 16 rpm 96.7 F 273 lbs 65 in 45.43 kg/m2 2.38 m2 93 % 06/16/2017 10:22:00 AM 142 mmHg 82 mmHg 78 bpm 18 rpm 97.7 F 274 lbs 65 in 45.5955 kg/m 2.3874 m 95 % 05/15/2017 8:51:00 AM 132 mmHg 76 mmHg 81 bpm 14 rpm 97 F 275 lbs 65 in 45.76 kg/m2 2.39 m2 99 % 04/23/2017 2:37:00 PM 126 mmHg 82 mmHg 84 bpm 18 rpm 98 F 280 lbs 65 in 46.594 kg/m 2.4134 m 91 % 04/14/2017 8:26:00 AM 140 mmHg 82 mmHg 84 bpm 16 rpm 97.8 F 273 lbs 65 in 45.43 kg/m2 2.38 m2 96 % 03/20/2017 2:26:00 PM 122 mmHg 86 mmHg 94 bpm 16 rpm 96.6 F 280.375 lbs 65 in 46.6564 kg/m 2.415 m 96 % 03/03/2017 5:08:00 PM 122 mmHg 78 mmHg 90 bpm 18 rpm 99.3 F 270 lbs 65 in 44.93 kg/m2 2.37 m2 91 % 01/09/2017 1:43:00 PM 140 mmHg 90 mmHg 88 bpm 16 rpm 98.5 F 274 lbs 65 in 45.5955 kg/m 2.3874 m 98 % 01/02/2017 1:38:00 PM 134 mmHg 86 mmHg 90 bpm 16 rpm 98.9 F 276 lbs 65 in 45.93 kg/m2 2.40 m2 98 % 12/27/2016 3:11:00 PM 132 mmHg 86 mmHg 83 bpm 18 rpm 97.5 F 273 lbs 65 in 45.4291 kg/m 2.3831 m 95 % 2016 8:49:00 AM 140 mmHg 84 mmHg 87 bpm 16 rpm 97.1 F 270 lbs 65 in 44.93 kg/m2 2.37 m2 96 % 09/19/2016 10:12:00 AM 140 mmHg 74 mmHg 86 bpm 18 rpm 97.8 F 263.25 lbs 65 in 43.8066 kg/m 2.3401 m 97 % 07/01/2016 8:25:00 AM 146 mmHg 78 mmHg 93 bpm 20 rpm 97 F 271 lbs 65 in 45.10 kg/m2 2.37 m2 95 % 06/17/2016 10:55:00 AM 140 mmHg 82 mmHg 78 bpm 18 rpm 98.2 F 268 lbs 65 in 44.5971 kg/m 2.3611 m 95 % 05/20/2016 9:29:00 AM 128 mmHg 82 mmHg 85 bpm 17 rpm 97.8 F 269 lbs 65 in 44.76 kg/m2 2.37 m2 95 % 04/01/2016 9:58:00 AM 142 mmHg 88 mmHg 80 bpm 16 rpm 97.9 F 259 lbs 65 in 43.0994 kg/m 2.3212 m 94 % 02/25/2016 3:55:00 PM 152 mmHg 88 mmHg 81 bpm 18 rpm 97.8 F 265.25 lbs 65 in 44.14 kg/m2 2.35 m2 93 % 01/16/2016 10:58:00 AM 136 mmHg 76 mmHg 78 bpm 16 rpm 99.1 F 263 lbs 65 in 43.765 kg/m 2.339 m 98 % 12/31/2015 2:34:00 PM 144 mmHg 82 mmHg 87 bpm 16 rpm 97.9 F 264 lbs 65 in 43.93 kg/m2 2.34 m2 95 % 12/09/2015 5:15:00 PM 138 mmHg 74 mmHg 89 bpm 98.3 F 262 lbs 65 in 43.5986 kg/m 2.3346 m 95 % 11/17/2015 3:00:00 PM 110 mmHg 68 mmHg 86 bpm 19 rpm 269 lbs 65 in 44.76 kg/m2 2.37 m2 98 % 11/03/2015 8:34:00 AM 136 mmHg 84 mmHg 83 bpm 16 rpm 98.1 F 271 lbs 65 in 45.0963 kg/m 2.3743 m 95 % 10/09/2015 8:47:00 AM 144 mmHg 84 mmHg 82 bpm 18 rpm 97.2 F 268 lbs 65 in 44.60 kg/m2 2.36 m2 95 % 08/31/2015 3:10:00 PM 132 mmHg 76 mmHg 84 bpm 18 rpm 98.3 F 259 lbs 65 in 43.0994 kg/m 2.3212 m 94 % 08/25/2015 10:09:00 AM 110 mmHg 80 mmHg 90 bpm 18 rpm 98 F 265 lbs 65 in 44.10 kg/m2 2.35 m2 90 % 06/05/2015 9:52:00 AM 138 mmHg 82 mmHg 90 bpm 18 rpm 97.8 F 256 lbs 65 in 42.6002 kg/m 2.3077 m 94 % 05/07/2015 6:36:00 PM 132 mmHg 68 mmHg 84 bpm 18 rpm 97 F 257.437 lbs 65 in 42.84 kg/m2 2.31 m2 99 % 05/06/2015 1:29:00 PM 134 mmHg 74 mmHg 71 bpm 18 rpm 97.8 F 257.25 lbs 65 in 42.8082 kg/m 2.3133 m 96 % 04/01/2015 8:38:00 AM 128 mmHg 72 mmHg 73 bpm 18 rpm 98.2 F 252 lbs 65 in 41.93 kg/m2 2.29 m2 93 % 04/01/2015 8:38:00 AM 102 mmHg 68 mmHg 03/26/2015 3:01:00 PM 124 mmHg 76 mmHg 72 bpm 18 rpm 97.8 F 253 lbs 65 in 42.101 kg/m 2.2941 m 03/19/2015 1:09:00 PM 118 mmHg 72 mmHg 88 bpm 18 rpm 96.8 F 254 lbs 65 in 42.27 kg/m2 2.30 m2 93 % 02/13/2015 8:55:00 AM 152 mmHg 84 mmHg 80 bpm 16 rpm 98.2 F 258 lbs 65 in 42.933 kg/m 2.3167 m 01/26/2015 3:23:00 PM 121 mmHg 84 mmHg 81 bpm 20 rpm 97.2 F 259 lbs 65 in 43.10 kg/m2 2.32 m2 99 % 01/12/2015 9:01:00 AM 152 mmHg 86 mmHg 88 bpm 18 rpm 98.6 F 273 lbs 65 in 45.4291 kg/m 2.3831 m 11/24/2014 1:54:00 PM 126 mmHg 72 mmHg 88 bpm 18 rpm 98.9 F 260 lbs 65 in 43.27 kg/m2 2.33 m2 98 % 10/22/2014 1:46:00 PM 128 mmHg 80 mmHg 92 bpm 16 rpm 96.8 F 262 lbs 65 in 43.5986 kg/m 2.3346 m 97 % 08/22/2014 8:44:00 AM 156 mmHg 80 mmHg 94 bpm 18 rpm 98.4 F 256 lbs 65 in 42.60 kg/m2 2.31 m2 08/01/2014 10:05:00 AM 156 mmHg 98 mmHg 78 bpm 18 rpm 98.1 F 262 lbs 65 in 43.5986 kg/m 2.3346 m 06/09/2014 2:55:00 PM 138 mmHg 64 mmHg 85 bpm 18 rpm 96.6 F 260.062 lbs 65 in 43.28 kg/m2 2.33 m2 98 % 03/14/2014 8:23:00 AM 124 mmHg 64 mmHg 86 bpm 18 rpm 97.3 F 260.4 lbs 65 in 43.3324 kg/m 2.3274 m 96 % 02/27/2014 2:29:00 PM 122 mmHg 81 mmHg 81 bpm 20 rpm 97.3 F 259.2 lbs 65 in 43.13 kg/m2 2.32 m2 95 % 12/02/2013 9:53:00 AM 152 mmHg 88 mmHg 92 bpm 18 rpm 97 F 263 lbs 65 in 43.765 kg/m 2.339 m 11/25/2013 9:20:00 AM 140 mmHg 82 mmHg 92 bpm 18 rpm 97.6 F 264.375 lbs 65 in 43.99 kg/m2 2.35 m2 95 % 11/14/2013 2:23:00 PM 128 mmHg 72 mmHg 92 bpm 18 rpm 98 F 264.125 lbs 65 in 43.9522 kg/m 2.344 m 97 % 08/21/2013 10:18:00 AM 138 mmHg 88 mmHg 81 bpm 20 rpm 97.9 F 257 lbs 65 in 42.77 kg/m2 2.31 m2 94 % 08/09/2013 10:53:00 AM 136 mmHg 74 mmHg 89 bpm 18 rpm 97.7 F 259.25 lbs 65 in 43.141 kg/m 2.3223 m 99 % 06/26/2013 8:55:00 AM 122 mmHg 84 mmHg 78 bpm 18 rpm 98 F 264 lbs 65 in 43.93 kg/m2 2.34 m2 06/21/2013 8:48:00 AM 148 mmHg 72 mmHg 68 bpm 18 rpm 98.3 F 265.25 lbs 65 in 44.1395 kg/m 2.349 m 05/31/2013 8:03:00 AM 140 mmHg 82 mmHg 90 bpm 18 rpm 98.1 F 266 lbs 95 % 05/10/2013 7:59:00 AM 132 mmHg 70 mmHg 74 bpm 18 rpm 97.6 F 267 lbs 65 in 44.43 kg/m2 2.36 m2 98 % 05/03/2013 11:36:00 AM 131 mmHg 72 mmHg 87 bpm 20 rpm 98.5 F 267 lbs 65 in 44.4307 kg/m 2.3567 m 96 % 03/27/2013 8:08:00 AM 138 mmHg 78 mmHg 76 bpm 18 rpm 98.2 F 262.125 lbs 65 in 43.62 kg/m2 2.34 m2 97 % 03/05/2013 11:10:00 AM 140 mmHg 68 mmHg 70 bpm 18 rpm 98 F 266.125 lbs 65 in 44.2851 kg/m 2.3529 m 02/27/2013 11:02:00 AM 142 mmHg 74 mmHg 74 bpm 18 rpm 98.1 F 267.5 lbs 65 in 44.51 kg/m2 2.36 m2 01/08/2013 10:50:00 AM 142 mmHg 82 mmHg 88 bpm 18 rpm 98.6 F 268 lbs 65 in 44.5971 kg/m 2.3611 m 10/30/2012 1:48:00 PM 148 mmHg 80 mmHg 88 bpm 20 rpm 97.6 F 274 lbs 65 in 45.60 kg/m2 2.39 m2 02/07/2012 10:33:00 AM 126 mmHg 84 mmHg 80 bpm 20 rpm 98.6 F 284 lbs 65 in 47.2596 kg/m 2.4306 m 12/13/2011 1:59:00 PM 128 mmHg 72 mmHg 82 bpm 18 rpm 97.8 F 278 lbs 65 in 46.26 kg/m2 2.40 m2 11/08/2011 8:50:00 AM 146 mmHg 80 mmHg 84 bpm 18 rpm 97.5 F 285 lbs 65 in 47.426 kg/m 2.4349 m 10/24/2011 9:12:00 AM 160 mmHg 92 mmHg 80 bpm 20 rpm 99 F 280 lbs 65 in 46.59 kg/m2 2.41 m2 08/05/2011 9:17:00 AM 156 mmHg 88 mmHg 80 bpm 20 rpm 98.6 F 280 lbs 65 in 46.594 kg/m 2.4134 m 07/12/2011 8:58:00 AM 142 mmHg 70 mmHg 68 bpm 20 rpm 97 F 280 lbs 65 in 46.59 kg/m2 2.41 m2 05/11/2011 8:58:00 AM 146 mmHg 88 mmHg 78 bpm 20 rpm 97.9 F 285 lbs 04/19/2011 10:25:00 AM 140 mmHg 88 mmHg 80 bpm 20 rpm 96.3 F 282 lbs 65 in 46.9268 kg/m 2.422 m 03/17/2011 8:43:00 AM 152 mmHg 80 mmHg 80 bpm 20 rpm 97.8 F 277 lbs 03/03/2011 8:50:00 AM 144 mmHg 84 mmHg 80 bpm 20 rpm 97.8 F 277 lbs 07/12/2010 11:23:00 AM 120 mmHg 76 mmHg 80 bpm 16 rpm 98 F 266 lbs 05/11/2010 10:23:00 AM 140 mmHg 84 mmHg 88 bpm 20 rpm 98.1 F 268 lbs 03/15/2010 8:54:00 AM 114 mmHg 74 mmHg 78 bpm 96.8 F 268 lbs 03/03/2010 10:44:00 AM 130 mmHg 80 mmHg 86 bpm 18 rpm 97.8 F 268 lbs 95 % 02/08/2010 10:53:00 AM 142 mmHg 88 mmHg 72 bpm 20 rpm 98.8 F 271 lbs Social History Name Description Comments Alcohol Use - Rare Lives with spouse Tobacco Never smoker History of Procedures Date Ordered Description Order Status 08/25/2015 12:00 AM Decadron, Per 1 Mg [facility]# [id number] Reviewed 08/25/2015 12:00 AM Depo-Medrol, Per 80 Mg [facility]#[address]-63 Reviewed 08/25/2015 12:00 AM Rocephin 1 gram [facility]#0453-3909-37 Reviewed 10/09/2015 12:00 AM COMPLETE CBC W/AUTO DIFF WBC Reviewed 10/09/2015 12:00 AM COMPREHEN METABOLIC PANEL Reviewed 10/09/2015 12:00 AM GLYCOSYLATED HEMOGLOBIN TEST Reviewed 10/09/2015 12:00 AM ASSAY THYROID STIM HORMONE Reviewed 11/03/2015 8:54 AM URINALYSIS AUTO W/O SCOPE Reviewed 11/03/2015 12:[address] HEAD/BRAIN W/O & W/DYE Reviewed 11/17/2015 12:00 AM Rocephin 1 gram [facility]#[id number] Reviewed 08/05/2011 12:00 AM CHEST X-RAY 2VW FRONTAL&LATL Reviewed 12/09/2015 12:00 AM THER/PROPH/DIAG INJ SC/IM Reviewed 12/09/2015 12:00 AM Rocephin 1 gram [facility]#[id number] Reviewed 11/08/2011 12:00 AM Decadron Inj. per 1mg-[facility] [id number] Reviewed 11/08/2011 12:00 AM Depo-Medrol 80 Mg [facility] [id number] Reviewed 05/20/2016 12:00 AM COMPLETE CBC W/AUTO DIFF WBC Reviewed 05/20/2016 12:00 AM COMPREHEN METABOLIC PANEL Reviewed 05/20/2016 12:00 AM ASSAY THYROID STIM HORMONE Reviewed 05/20/2016 12:00 AM ASSAY OF TOTAL THYROXINE Reviewed 12/13/2011 12:00 AM X-RAY EXAM OF FINGER(S) Reviewed 02/07/2012 12:00 AM ASSAY THYROID STIM HORMONE Reviewed 02/07/2012 12:00 AM BREATHING CAPACITY TEST Reviewed 02/07/2012 12:00 AM ELECTROCARDIOGRAM COMPLETE Reviewed 02/07/2012 12:00 AM ASSAY OF TOTAL THYROXINE Reviewed 12/27/2016 12:00 AM COMPLETE CBC W/AUTO DIFF WBC Reviewed 12/27/2016 12:00 AM COMPREHEN METABOLIC PANEL Reviewed 12/27/2016 12:00 AM ASSAY THYROID STIM HORMONE Reviewed 04/26/2012 12:00 AM IMMUNIZATION ADMIN Reviewed 04/26/2012 12:00 AM TDAP VACCINE 7 YRS/> IM Reviewed 03/24/2017 12:[address] SFT TSUE NCK W/O & W/DYE Returned 03/03/2017 12:00 AM THER/PROPH/DIAG INJ SC/IM Reviewed 03/03/2017 12:00 AM Rocephin 1 gram Injection Reviewed 03/03/2017 12:00 AM CUL BACT XCPT URINE BLOOD/STOOL AEROBIC ISOL Reviewed 05/15/2017 12:[address] ABD & PELV W/CONTRAST Returned 04/23/2017 12:00 AM THER/PROPH/DIAG INJ SC/IM Reviewed 04/23/2017 12:00 AM Depo-Medrol 40mg Injection Reviewed 04/23/2017 12:00 AM Decadron 4mg Injection Reviewed 05/18/2017 12:00 AM US EXAM PELVIC COMPLETE Returned 06/16/2017 12:00 AM COMPLETE CBC W/AUTO DIFF WBC Returned 06/16/2017 12:00 AM COMPREHEN METABOLIC PANEL Returned 06/16/2017 12:00 AM ASSAY THYROID STIM HORMONE Returned 06/16/2017 12:00 AM ASSAY OF MAGNESIUM Returned 07/07/2017 12:00 AM FLU VACC 4 ANJEL 3 YRS PLUS IM Reviewed 08/31/2017 12:00 AM US EXAM ABDO BACK WALL COMP Returned 10/09/2017 12:00 AM URNLS DIP STICK/TABLET RGNT AUTO W/O MICROSCOPY Returned 10/30/2012 12:00 AM Depo-Medrol 80 Mg Im/C'pancho Reviewed 10/30/2012 12:00 AM Decadron, Per 1 Mg [facility]# [address]-50 Reviewed 10/30/2012 12:00 AM COMPLETE CBC W/AUTO DIFF WBC Reviewed 10/30/2012 12:00 AM COMPREHEN METABOLIC PANEL Reviewed 10/30/2012 12:00 AM LIPID PANEL Reviewed 10/30/2012 12:00 AM ASSAY THYROID STIM HORMONE Reviewed 01/19/2018 12:00 AM COMPLETE CBC W/AUTO DIFF WBC Returned 01/19/2018 12:00 AM COMPREHEN METABOLIC PANEL Returned 01/19/2018 12:00 AM ANTINUCLEAR ANTIBODIES DOMINGA Returned 01/19/2018 12:00 AM RHEUMATOID FACTOR TEST QUAL Returned 01/08/2013 12:00 AM Depo-Medrol 80 Mg Im/C'pancho Reviewed 01/08/2013 12:00 AM Decadron, Per 1 Mg [facility]# [address]-86 Reviewed 01/08/2013 12:00 AM Rocephin 1 gram [facility]#[id number] Reviewed 01/08/2013 12:00 AM COMPREHEN METABOLIC PANEL Reviewed 01/08/2013 12:00 AM GLYCOSYLATED HEMOGLOBIN TEST Reviewed 01/08/2013 12:00 AM ASSAY THYROID STIM HORMONE Reviewed 01/08/2013 12:00 AM ASSAY OF PARATHORMONE Reviewed 01/08/2013 12:00 AM LIPID PANEL Reviewed 04/30/2018 12:00 AM US EXAM OF HEAD AND NECK Returned 04/30/2018 12:[address] ABD & PELV W/CONTRAST Returned 02/27/2013 12:00 AM THER/PROPH/DIAG INJ SC/IM Reviewed 02/27/2013 12:00 AM Decadron, Per 1 Mg [facility]# [address]-18 Reviewed 02/27/2013 12:00 AM Depo-Medrol, Per 80 Mg [facility]#6331-5778-73 Reviewed 03/04/2013 12:00 AM MAMMOGRAM SCREENING Reviewed 03/05/2013 12:00 AM CYTOPATH TBS C/V MANUAL Reviewed 03/05/2013 12:00 AM MAMMOGRAM BOTH BREASTS Reviewed 03/27/2013 12:00 AM THER/PROPH/DIAG INJ SC/IM Reviewed 03/27/2013 12:00 AM Bicillin CR, 1.2 million units [facility]# 27181-715-23 Reviewed 05/10/2013 12:00 AM X-RAY EXAM KNEE 4 OR MORE Reviewed 05/10/2013 12:00 AM Physical Therapy Consult Reviewed 06/26/2013 12:00 AM METABOLIC PANEL TOTAL CA Reviewed 06/26/2013 12:00 AM COMPLETE CBC W/AUTO DIFF WBC Reviewed 02/08/2010 12:00 AM COMPLETE CBC W/AUTO DIFF WBC Reviewed 02/08/2010 12:00 AM COMPREHEN METABOLIC PANEL Reviewed 02/08/2010 12:00 AM LIPID PANEL Reviewed 08/09/2013 12:00 AM THER/PROPH/DIAG INJ SC/IM Reviewed 08/09/2013 12:00 AM Decadron, Per 1 Mg [facility]# [address]-66 Reviewed 08/09/2013 12:00 AM Depo-Medrol, Per 80 Mg [facility]#3587-6278-12 Reviewed 08/21/2013 12:00 AM X-RAY EXAM OF HAND Reviewed 11/14/2013 12:00 AM COMPREHEN METABOLIC PANEL Reviewed 11/14/2013 12:00 AM LIPID PANEL Reviewed 11/14/2013 12:00 AM ANTINUCLEAR ANTIBODIES Reviewed 11/14/2013 12:00 AM RHEUMATOID FACTOR TEST QUAL Reviewed 11/14/2013 12:00 AM C-REACTIVE PROTEIN Reviewed 11/14/2013 12:00 AM RBC SED RATE AUTOMATED Reviewed 11/25/2013 12:00 AM X-RAY EXAM OF FOOT Reviewed 02/27/2014 12:00 AM CHEST X-RAY 2VW FRONTAL&LATL Reviewed 02/27/2014 12:00 AM COMPLETE CBC W/AUTO DIFF WBC Reviewed 02/27/2014 12:00 AM COMPREHEN METABOLIC PANEL Reviewed 02/27/2014 12:00 AM Culture-Sputum Reviewed 02/27/2014 12:00 AM MYCOPLASMA ANTIBODY Reviewed 05/11/2010 12:00 AM COMPLETE CBC W/AUTO DIFF WBC Reviewed 05/11/2010 12:00 AM COMPREHEN METABOLIC PANEL Reviewed 05/11/2010 12:00 AM LIPID PANEL Reviewed 05/11/2010 12:00 AM ASSAY THYROID STIM HORMONE Reviewed 05/11/2010 12:00 AM VITAMIN B-12 Reviewed 07/12/2010 12:00 AM X-RAY EXAM OF WRIST Reviewed 03/14/2014 12:00 AM TDAP VACCINE 7 YRS/> IM Reviewed 03/14/2014 12:00 AM THER/PROPH/DIAG INJ SC/IM Reviewed 06/09/2014 12:00 AM LIPID PANEL Reviewed 11/24/2014 12:00 AM RADEX HAND MINIMUM 3 VIEWS Reviewed 01/12/2015 12:00 AM BREATHING CAPACITY TEST Reviewed 03/03/2011 12:00 AM COMPLETE CBC W/AUTO DIFF WBC Reviewed 03/03/2011 12:00 AM COMPREHEN METABOLIC PANEL Reviewed 03/03/2011 12:00 AM LIPID PANEL Reviewed 03/03/2011 12:00 AM ASSAY THYROID STIM HORMONE Reviewed 01/26/2015 12:00 AM Tick Panel Reviewed 03/26/2015 12:00 AM Rocephin 1 gram [facility]#9366-7465-66 Reviewed 04/01/2015 12:00 AM COMPLETE CBC W/AUTO DIFF WBC Reviewed 04/01/2015 12:00 AM COMPREHEN METABOLIC PANEL Reviewed 04/01/2015 12:00 AM ASSAY THYROID STIM HORMONE Reviewed 04/01/2015 12:00 AM CHEST X-RAY 2VW FRONTAL&LATL Reviewed 05/07/2015 12:00 AM THER/PROPH/DIAG INJ SC/IM Reviewed 05/07/2015 12:00 AM Decadron injection Reviewed 05/07/2015 12:00 AM Depo-Medrol 40mg Reviewed 05/11/2011 12:00 AM Depo-Medrol 80 Mg [facility] [id number] Reviewed 05/11/2011 12:00 AM Decadron Inj. per 1mg-[facility] [id number] Reviewed Results Summary Date and Description Results 05/12/2010 5:55 AM TRIGLYCERIDES 397.0 mg/dLCHOLESTEROL 190.0 mg/dLHDL 39.0 mg/ dLTOT CHOL/HDL 4.9 LDL (CALC) 72.0 mg/dLTSH 2.270 uIU/mLVITAMIN B12 493.0 pg/ mLGLUCOSE 98.0 mg/dLSODIUM 142.0 mmol/LPOTASSIUM 4.40 mmol/LCHLORIDE 106.0 mmol/ LCO2 29.0 mmol/LBUN 19.0 mg/dLCREATININE 0.70 mg/dLSGOT/AST 21.0 IU/LSGPT/ALT 25.0 IU/LALK PHOS 81.0 IU/LTOTAL PROTEIN 6.90 g/dLALBUMIN 3.80 g/dLTOTAL BILI 0.30 mg/dLCALCIUM 10.0 mg/dLAGE 44 GFR NonAA 90 GFR AA 109 eGFR >60 mL/min/1.73 m2eGFR AA* >60 WBC 6.0 RBC 4.98 HGB 13.60 g/dLHCT 41.50 %MCV 83.0 fLMCH 27.30 pgMCHC 32.80 g/dLRDW SD 42 RDW CV 13.90 %MPV 11.20 fLPLT 226 NRBC# 0.00 NRBC% 0.0 %NEUT 56.60 %%LYMP 31.40 %%MONO 9.20 %%EOS 2.30 %%BASO 0.50 %#NEUT 3.38 # LYMP 1.88 #MONO 0.55 #EOS 0.14 #BASO 0.03 MANUAL DIFF NOT IND 02/07/2012 11:20 AM TSH 2.440 uIU/mLT4 8.60 ug/dL 10/31/2012 8:25 AM WBC 8.4 RBC 4.86 HGB 13.40 g/dLHCT 42.0 %MCV 86.0 fLMCH 27.60 pgMCHC 31.90 g/dLRDW SD 44 RDW CV 14.0 %MPV 11.20 fLPLT 245 NRBC# 0.00 NRBC% 0.0 %NEUT 77.50 %%LYMP 14.80 %%MONO 7.40 %%EOS 0.10 %%BASO 0.20 %#NEUT 6.49 #LYMP 1.24 #MONO 0.62 #EOS 0.01 #BASO 0.02 MANUAL DIFF NOT IND TRIGLYCERIDES 231.0 mg/dLCHOLESTEROL 229.0 mg/dLHDL 47.0 mg/dLTOT CHOL/HDL 4.9 LDL (CALC) 136.0 mg/dLGLUCOSE 109.0 mg/dLSODIUM 142.0 mmol/LPOTASSIUM 4.10 mmol/ LCHLORIDE 106.0 mmol/LCO2 27.0 mmol/LBUN 16.0 mg/dLCREATININE 0.80 mg/dLSGOT/ AST 20.0 IU/LSGPT/ALT 26.0 IU/LALK PHOS 94.0 IU/LTOTAL PROTEIN 7.90 g/dLALBUMIN 4.40 g/dLTOTAL BILI 0.30 mg/dLCALCIUM 10.90 mg/dLAGE 47 GFR NonAA 76 GFR AA 92 eGFR 60 eGFR AA* 60 TSH 0.960 uIU/mL 02/15/2013 8:55 AM TRIGLYCERIDES 196.0 mg/dLCHOLESTEROL 213.0 mg/dLHDL 43.0 mg/ dLTOT CHOL/HDL 5.0 LDL (CALC) 131.0 mg/dLGLUCOSE 107.0 mg/dLSODIUM 145.0 mmol/ LPOTASSIUM 4.30 mmol/LCHLORIDE 106.0 mmol/LCO2 29.0 mmol/LBUN 17.0 mg/ dLCREATININE 0.80 mg/dLSGOT/AST 20.0 IU/LSGPT/ALT 26.0 IU/LALK PHOS 82.0 IU/ LTOTAL PROTEIN 7.10 g/dLALBUMIN 3.90 g/dLTOTAL BILI 0.30 mg/dLCALCIUM 10.30 mg/ dLAGE 47 GFR NonAA 76 GFR AA 92 eGFR 60 eGFR AA* 60 TSH 1.230 uIU/ mLGLYCOHEMOGLOBIN A1C 6.0 % 06/26/2013 9:40 AM WBC 4.7 RBC 4.88 HGB 13.40 g/dLHCT 41.50 %MCV 85.0 fLMCH 27.50 pgMCHC 32.30 g/dLRDW SD 44 RDW CV 14.30 %MPV 11.0 fLPLT 209 NRBC# 0.00 NRBC% 0.0 %NEUT 54.20 %%LYMP 31.50 %%MONO 10.50 %%EOS 3.40 %%BASO 0.40 %#NEUT 2.53 #LYMP 1.47 #MONO 0.49 #EOS 0.16 #BASO 0.02 MANUAL DIFF NOT IND GLUCOSE 113.0 mg/dLSODIUM 146.0 mmol/LPOTASSIUM 5.30 mmol/LCHLORIDE 106.0 mmol/LCO2 29.0 mmol/LBUN 14.0 mg/dLCREATININE 0.80 mg/dLCALCIUM 10.20 mg/dLAGE 47 GFR NonAA 76 GFR AA 92 eGFR >60 mL/min/1.73 m2eGFR AA* >60 11/19/2013 8:10 AM RA Factor 16.30 IU/mLSEDRATE 29.0 mm/hrGLUCOSE 105.0 mg/ dLSODIUM 143.0 mmol/LPOTASSIUM 4.70 mmol/LCHLORIDE 105.0 mmol/LCO2 28.0 mmol/ LBUN 13.0 mg/dLCREATININE 0.80 mg/dLSGOT/AST 26.0 IU/LSGPT/ALT 27.0 IU/LALK PHOS 109.0 IU/LTOTAL PROTEIN 7.50 g/dLALBUMIN 4.20 g/dLTOTAL BILI 0.40 mg/ dLCALCIUM 9.80 mg/dLAGE 48 GFR NonAA 76 GFR AA 92 eGFR >60 mL/min/1.73 m2eGFR AA * >60 TRIGLYCERIDES 250.0 mg/dLCHOLESTEROL 180.0 mg/dLHDL 39.0 mg/dLTOT CHOL/ HDL 4.6 LDL (CALC) 91.0 mg/Leanna REACTIVE PROTEIN 15.0 mg/BREONNA Direct Negative 02/27/2014 3:24 PM WBC 8.7 RBC 5.12 HGB 13.90 g/dLHCT 42.50 %MCV 83.0 fLMCH 27.10 pgMCHC 32.70 g/dLRDW SD 41 RDW CV 13.60 %MPV 11.10 fLPLT 237 NRBC# 0.00 NRBC% 0.0 %NEUT 67.70 %%LYMP 21.70 %%MONO 8.30 %%EOS 1.80 %%BASO 0.50 %#NEUT 5.88 #LYMP 1.89 #MONO 0.72 #EOS 0.16 #BASO 0.04 MANUAL DIFF NOT IND GLUCOSE 99.0 mg/dLSODIUM 143.0 mmol/LPOTASSIUM 4.10 mmol/LCHLORIDE 103.0 mmol/LCO2 29.0 mmol/LBUN 14.0 mg/dLCREATININE 0.80 mg/dLSGOT/AST 16.0 IU/LSGPT/ALT 15.0 IU/ LALK PHOS 104.0 IU/LTOTAL PROTEIN 7.20 g/dLALBUMIN 3.90 g/dLTOTAL BILI 0.40 mg/ dLCALCIUM 9.90 mg/dLAGE 48 GFR NonAA 76 GFR AA 92 eGFR 60 eGFR AA* 60 M pneumoniae IgG Abs 1201.0 U/mLM pneumoniae IgM Abs <770 U/mL 06/11/2014 5:23 AM TRIGLYCERIDES 244.0 mg/dLCHOLESTEROL 165.0 mg/dLHDL 40.0 mg/ dLTOT CHOL/HDL 4.1 LDL (CALC) 76.0 mg/dL 04/01/2015 9:55 AM GLUCOSE 100.0 mg/dLSODIUM 144.0 mmol/LPOTASSIUM 4.50 mmol/ LCHLORIDE 105.0 mmol/LCO2 29.0 mmol/LBUN 13.0 mg/dLCREATININE 0.90 mg/dLSGOT/ AST 20.0 IU/LSGPT/ALT 17.0 IU/LALK PHOS 76.0 IU/LTOTAL PROTEIN 7.10 g/dLALBUMIN 4.10 g/dLTOTAL BILI 0.40 mg/dLCALCIUM 10.40 mg/dLAGE 49 GFR NonAA 66 GFR AA 80 eGFR >60 mL/min/1.73 m2eGFR AA* >60 WBC 5.0 RBC 4.94 HGB 13.40 g/dLHCT 42.40 % MCV 86.0 fLMCH 27.10 pgMCHC 31.60 g/dLRDW SD 43 RDW CV 13.70 %MPV 10.60 fLPLT 224 NRBC# 0.00 NRBC% 0.0 %NEUT 59.60 %%LYMP 28.60 %%MONO 8.20 %%EOS 3.0 %%BASO 0.60 %#NEUT 2.98 #LYMP 1.43 #MONO 0.41 #EOS 0.15 #BASO 0.03 MANUAL DIFF NOT IND TSH 1.210 uIU/mL 10/09/2015 9:52 AM WBC 4.7 RBC 5.07 HGB 13.50 g/dLHCT 42.70 %MCV 84.0 fLMCH 26.60 pgMCHC 31.60 g/dLRDW SD 42 RDW CV 13.90 %MPV 10.80 fLPLT 195 NRBC# 0.00 NRBC% 0.0 %NEUT 57.70 %%LYMP 28.40 %%MONO 10.50 %%EOS 2.80 %%BASO 0.60 %#NEUT 2.68 #LYMP 1.32 #MONO 0.49 #EOS 0.13 #BASO 0.03 MANUAL DIFF NOT IND GLUCOSE 100.0 mg/dLSODIUM 141.0 mmol/LPOTASSIUM 4.30 mmol/LCHLORIDE 105.0 mmol/LCO2 30.0 mmol/LBUN 12.0 mg/dLCREATININE 0.80 mg/dLSGOT/AST 23.0 IU/LSGPT/ALT 22.0 IU /LALK PHOS 88.0 IU/LTOTAL PROTEIN 6.80 g/dLALBUMIN 4.0 g/dLTOTAL BILI 0.30 mg/ dLCALCIUM 9.70 mg/dLAGE 50 GFR NonAA 75 GFR AA 91 eGFR >60 mL/min/1.73meGFR AA * >60 TSH 1.80 uIU/mLHemoglobin A1c 5.80 %Estim. Avg Glu (eAG) 120 11/03/2015 8:54 AM Clarity Ur clear Color Ur yellow Glucose Ur-sCnc negative Bilirub Ur Ql Strip neg Ketones Ur Ql Strip neg Sp Gr Ur Qn 1.005 Hgb Ur Ql Strip neg pH Ur-LsCnc 5.5 Urobilinogen Ur-mCnc 0.2 Nitrite Ur Ql Strip neg WBC Est Ur Ql Strip neg 05/20/2016 10:32 AM WBC 4.7 RBC 5.48 HGB 14.10 g/dLHCT 45.40 %MCV 83.0 fLMCH 25.70 pgMCHC 31.10 g/dLRDW SD 41 RDW CV 13.60 %MPV 10.0 fLPLT 234 NRBC# 0.00 NRBC% 0.0 %NEUT 56.0 %%LYMP 30.30 %%MONO 9.70 %%EOS 3.0 %%BASO 0.60 %#NEUT 2.64 #LYMP 1.43 #MONO 0.46 #EOS 0.14 #BASO 0.03 MANUAL DIFF NOT IND GLUCOSE 85.0 mg/ dLSODIUM 144.0 mmol/LPOTASSIUM 4.30 mmol/LCHLORIDE 105.0 mmol/LCO2 30.0 mmol/ LBUN 12.0 mg/dLCREATININE 0.80 mg/dLSGOT/AST 26.0 IU/LSGPT/ALT 31.0 IU/LALK PHOS 95.0 IU/LTOTAL PROTEIN 7.20 g/dLALBUMIN 4.20 g/dLTOTAL BILI 0.40 mg/ dLCALCIUM 10.10 mg/dLAGE 50 GFR NonAA 75 GFR AA 91 eGFR >60 mL/min/1.73meGFR AA* >60 TSH 2.370 uIU/mLT4 6.10 ug/dL 12/27/2016 4:54 PM TSH 1.740 uIU/mLWBC 7.5 RBC 4.93 HGB 13.20 g/dLHCT 41.10 % MCV 83.0 fLMCH 26.80 pgMCHC 32.10 g/dLRDW SD 40 RDW CV 13.30 %MPV 10.60 fLPLT 229 NRBC# 0.00 NRBC% 0.0 %NEUT 64.20 %%LYMP 24.40 %%MONO 8.20 %%EOS 2.40 %%BASO 0.50 %#NEUT 4.80 #LYMP 1.82 #MONO 0.61 #EOS 0.18 #BASO 0.04 MANUAL DIFF NOT IND GLUCOSE 97.0 mg/dLSODIUM 142.0 mmol/LPOTASSIUM 3.80 mmol/LCHLORIDE 103.0 mmol/ LCO2 29.0 mmol/LBUN 16.0 mg/dLCREATININE 0.80 mg/dLSGOT/AST 21.0 IU/LSGPT/ALT 18.0 IU/LALK PHOS 112.0 IU/LTOTAL PROTEIN 7.0 g/dLALBUMIN 3.90 g/dLTOTAL BILI 0.30 mg/dLCALCIUM 9.40 mg/dLAGE 51 GFR NonAA 75 GFR AA 91 eGFR >60 mL/min/1.73m eGFR AA* >60 03/03/2017 7:43 PM SPECIMEN SOURCE: CUTANEOUS ABSCESS LIMB History Of Immunizations Name Date Admin Mfg Name Mfg Code Trade Name Lot# Route Inj Vis Given Vis Pub CVX Tdap 04/26/2012 [employer] SKB ADACEL [id number] Intramuscular Left Arm 04/26/2012 08/19/2008 115 Tdap 03/14/2014 [employer] SKB BOOSTRIX [id number] Intramuscular Left Deltoid 03/14/2014 02/07/2013 115 Influenza 06/22/2015 [email or web address] Pamela. NOV FLUVIRIN [id number] Intramuscular Left Deltoid 06/23/2015 05/08/2015 140 Pneumococcal 09/16/2015 Not Entered NE PNEUMOVAX 23 Intramuscular Not Entered 11/11/2016 10/02/2017 33 Influenza 07/07/2017 [employer] pasteur PMC Fluzone Quadrivalent [id number] Intramuscular Left Deltoid 07/07/2017 05/08/2015 150 History of Past Illness Name Date of Onset Comments Allergic rhinitis; due to other allergen Hypothyroidism, acquired Otitis Media, Acute Feb 08 2010 11:02AM Cystitis, Acute Feb 08 2010 11:02AM Insomnia, unspecified Feb 08 2010 11:02AM Chronic Obstructive Pulmonary Disease 10/24/2011 Obesity Mar 03 2010 10:54AM Depression and anxiety Mar 03 2010 10:54AM Hypothyroidism, Acquired Mar 03 2010 10:54AM Cystitis Mar 03 2010 10:54AM Depression and anxiety Mar 15 2010 8:57AM Hypothyroidism, Acquired May 11 2010 10:27AM Fatigue May 11 2010 10:27AM Chest Pain May 11 2010 10:27AM Osteoarthritis 11/14/2013 Wrist pain Jul 12 2010 11:25AM Hyperlipidemia, unspecified 06/11/2014 Abdominal Pain Mar 03 2011 8:53AM Depression and anxiety Mar 03 2011 8:53AM Insomnia, unspecified Mar 03 2011 8:53AM Low Back Pain Mar 03 2011 8:53AM Bacterial Vaginitis Mar 03 2011 8:53AM Depression and anxiety Mar 17 2011 8:46AM Insomnia, unspecified Mar 17 2011 8:46AM Hypothyroidism, Acquired Apr 19 2011 10:26AM Edema, bilateral lower extremity Apr 19 2011 10:26AM Contact Dermatitis May 11 2011 8:57AM Edema May 11 2011 8:57AM Pulmonary embolism 06/29/17 right lung Bronchitis, Acute Jul 12 2011 8:56AM Asthma Head Injury, Closed Anxiety GERD Bronchitis, Acute Aug 05 2011 9:17AM Chronic Obstructive Pulmonary Disease Aug 05 2011 9:17AM Bronchitis, Acute Oct 24 2011 9:21AM Chronic Obstructive Pulmonary Disease Oct 24 2011 9:21AM Otitis Media, Acute Nov 08 2011 8:55AM Finger Contusion Dec 13 2011 2:03PM Hypothyroidism, Acquired Feb 07 2012 10:41AM Dyspnea Feb 07 2012 10:41AM Palpitations Feb 07 2012 10:41AM Adacel Apr 26 2012 8:11AM Incontinence of Urine Oct 30 2012 1:53PM Joint Pain Oct 30 2012 1:53PM Hormone Replacement Therapy Oct 30 2012 1:53PM Otitis Media, Acute Oct 30 2012 1:53PM Depression and anxiety Oct 30 2012 1:53PM Hypothyroidism, Acquired Oct 30 2012 1:53PM Hyperglycemia Jan 08 2013 10:53AM Hypercalcemia Jan 08 2013 10:53AM Upper Respiratory Infection Jan 08 2013 10:53AM Esophageal Reflux Jan 08 2013 10:53AM Osteoarthritis Jan 08 2013 10:53AM Joint Pain Feb 27 2013 11:04AM Allergic Rhinitis Feb 27 2013 11:04AM Dyspareunia Feb 27 2013 11:04AM Screening Mammogram Mar 04 2013 1:07PM Gynecological Exam Mar 05 2013 11:14AM Menopausal Syndrome Mar 05 2013 11:14AM Cystocele Mar 05 2013 11:14AM Rhinitis, Allergic Mar 27 2013 8:11AM Upper Respiratory Infections Mar 27 2013 8:11AM Right knee sprain May 03 2013 11:45AM Right knee sprain May 10 2013 8:04AM Right knee sprain/pain May 31 2013 8:07AM Eustachian Tube Dysfunction, Bilateral Jun 21 2013 8:51AM pre-operative examination, unspecified Jun 26 2013 9:01AM Upper Respiratory Infections Aug 09 2013 10:55AM Pain in joint; hand-Left Aug 21 2013 10:25AM Hypothyroidism, Acquired Nov 14 2013 2:25PM Chronic Obstructive Pulmonary Disease Nov 14 2013 2:25PM Osteoarthritis Nov 14 2013 2:25PM Dyspareunia, female Nov 14 2013 2:25PM Joint Pain Nov 14 2013 2:25PM Depression Nov 14 2013 2:25PM Pain in foot, Left Heel Nov 25 2013 9:26AM Myalgia Nov 25 2013 9:26AM Myalgia Dec 02 2013 9:58AM Hypothyroidism, Acquired Dec 02 2013 9:58AM Plantar fasciitis Dec 02 2013 9:58AM Cough Feb 27 2014 2:30PM Fever Feb 27 2014 2:30PM Abrasion Mar 14 2014 8:26AM Hyperlipidemia, unspecified Jun 09 2014 2:57PM Osteoarthritis Jun 09 2014 2:57PM Depression and anxiety Aug 01 2014 10:11AM Esophageal Reflux Aug 01 2014 10:11AM Depression and anxiety Aug 22 2014 8:56AM Osteoarthritis Aug 22 2014 8:56AM Sternal pain Aug 22 2014 8:56AM Great toe pain, left Oct 22 2014 1:48PM Hand pain, right Nov 24 2014 1:56PM Chronic Obstructive Pulmonary Disease Jan 12 2015 9:05AM Tick bite Jan 26 2015 3:24PM Suture granuloma Jan 26 2015 3:24PM Gastroenteritis Feb 13 2015 9:06AM Chronic Obstructive Pulmonary Disease Mar 19 2015 1:13PM Esophageal Reflux Mar 19 2015 1:13PM Chronic pain Mar 19 2015 1:13PM Sinusitis Mar 26 2015 3:06PM Bronchitis, Acute Apr 01 2015 8:38AM Orthostatic hypotension Apr 01 2015 8:38AM Syncope Apr 01 2015 8:38AM Hypothyroidism, Acquired Apr 01 2015 8:38AM Insomnia, unspecified Apr 01 2015 8:38AM Insect bites May 06 2015 1:31PM Poison agnes May 07 2015 6:39PM Low Back Pain Jun 05 2015 9:56AM Depression and anxiety Aug 25 2015 10:13AM Pneumonia Aug 25 2015 10:13AM Incontinence of urine in female Aug 25 2015 10:13AM Bursitis of knee, left Aug 31 2015 3:15PM Hyperlipidemia, unspecified Oct 09 2015 8:55AM Hypothyroidism, Acquired Oct 09 2015 8:55AM Hyperglycemia Oct 09 2015 8:55AM Fibromyalgia Oct 09 2015 8:55AM Chronic Obstructive Pulmonary Disease Oct 09 2015 8:55AM Altered mental state b 2015 8:47AM Bacterial vaginosis Nov 03 2015 8:47AM Left shoulder pain Nov 03 2015 8:47AM Memory loss, short term Nov 03 2015 8:47AM Sinusitis Nov 17 2015 3:04PM Altered mental status Nov 17 2015 3:04PM Upper respiratory tract infection, unspecified type Dec 09 2015 5:20PM Fibromyalgia Dec 31 2015 2:40PM Allergic reaction Jan 16 2016 11:00AM Fibromyalgia Feb 25 2016 4:00PM Fibromyalgia Apr 01 2016 10:02AM Hypothyroidism, Acquired May 20 2016 9:46AM Fibromyalgia May 20 2016 9:46AM Chronic Obstructive Pulmonary Disease May 20 2016 9:46AM Fibromyalgia Jun 17 2016 10:59AM Opioid abuse with opioid-induced disorder Jul 01 2016 8:25AM Fibromyalgia muscle pain Jul 01 2016 8:25AM Left Lower Hematoma Jul 01 2016 8:25AM Chronic Obstructive Pulmonary Disease Sep 19 2016 10:18AM Anxiety Sep 19 2016 10:18AM Drug induced constipation Sep 19 2016 10:18AM Adverse effect of other opioids, initial encounter Sep 19 2016 10:18AM Depression 2016 8:57AM Fibromyalgia Dec 27 2016 3:12PM Dyspareunia in female Dec 27 2016 3:12PM Hormone replacement therapy Dec 27 2016 3:12PM Hypothyroidism, Acquired Dec 27 2016 3:12PM Hormone replacement therapy Jan 02 2017 1:41PM Chest pain Jan 09 2017 1:49PM Left Cutaneous abscess of limb, unspecified Mar 03 2017 5:13PM Left Cellulitis of unspecified part of limb Mar 03 2017 5:13PM Edema Mar 20 2017 2:30PM Dyspnea Mar 20 2017 2:30PM Low Back Pain Mar 20 2017 2:30PM Thyroid nodule Mar 24 2017 9:34AM Low Back Pain Apr 14 2017 8:32AM Dyspnea Apr 14 2017 8:32AM Contact dermatitis due to [place] Apr 23 2017 2:41PM Right lower quadrant abdominal pain May 15 2017 8:53AM Low Back Pain May 15 2017 8:53AM RLS (restless legs syndrome) May 15 2017 8:53AM Right upper quadrant abdominal pain May 15 2017 1:44PM Left Ovarian cyst May 18 2017 1:42PM Chronic Obstructive Pulmonary Disease Jun 16 2017 10:24AM Hypothyroidism, Acquired Jun 16 2017 10:24AM Fatigue Jun 16 2017 10:24AM Abdominal hernia Jun 16 2017 10:24AM Myalgia Jun 16 2017 10:24AM Depression Jun 16 2017 10:24AM Chronic Obstructive Pulmonary Disease Jul 07 2017 8:53AM Pulmonary embolism Jul 07 2017 8:53AM Depression Jul 07 2017 8:53AM Fibromyalgia Aug 09 2017 9:27AM Drug induced constipation Aug 09 2017 9:27AM Adverse effect of other opioids, initial encounter Aug 09 2017 9:27AM Pulmonary embolism Aug 09 2017 9:27AM Morbidly obese Aug 09 2017 9:27AM Anterior spinal artery compression syndrome of lumbar region Aug 31 2017 3: 00PM Paraparesis of both lower limbs Aug 31 2017 3:00PM Anesthesia Aug 31 2017 3:00PM Neuropathic pain Aug 31 2017 3:00PM Neurogenic bladder Aug 31 2017 3:00PM Neurogenic bowel Aug 31 2017 3:00PM Fibromyalgia Aug 31 2017 3:00PM Chronic pain syndrome Aug 31 2017 3:00PM Anterior spinal artery compression syndrome of lumbar region Sep 20 2017 11: 28AM Paraparesis of both lower limbs Sep 20 2017 11:28AM Anesthesia Sep 20 2017 11:28AM Neuropathic pain Sep 20 2017 11:28AM Neurogenic bladder Sep 20 2017 11:28AM Neurogenic bowel Sep 20 2017 11:28AM Fibromyalgia Sep 20 2017 11:28AM Chronic pain syndrome Sep 20 2017 11:28AM Dysuria Oct 09 2017 10:40AM Fibromyalgia Oct 23 2017 8:38AM Pulmonary embolism Oct 23 2017 8:38AM Anterior spinal artery compression syndrome of lumbar region Oct 27 2017 9: 09AM Paraparesis of both lower limbs Oct 27 2017 9:09AM Anesthesia Oct 27 2017 9:09AM Neuropathic pain Oct 27 2017 9:09AM Neurogenic bladder Oct 27 2017 9:09AM Neurogenic bowel Oct 27 2017 9:09AM Fibromyalgia Oct 27 2017 9:09AM Chronic pain syndrome Oct 27 2017 9:09AM Encounter for screening mammogram for breast cancer Nov 13 2017 4:10PM Fibromyalgia Jan 19 2018 11:03AM Chronic pain Jan 19 2018 11:03AM Dyspareunia in female Jan 19 2018 11:03AM Depression (emotion) Jan 19 2018 11:03AM Dyspareunia in female Jan 29 2018 3:37PM Vaginal atrophy Jan 29 2018 3:37PM Anesthesia Feb 28 2018 8:09AM Neuropathic pain Feb 28 2018 8:09AM Fibromyalgia Feb 28 2018 8:09AM Chronic pain syndrome Feb 28 2018 8:09AM Cervicalgia Feb 28 2018 8:09AM Chronic pain Mar 09 2018 9:02AM Menopausal flushing Mar 09 2018 9:02AM Hypothyroidism, Acquired Mar 29 2018 3:07PM Insomnia, unspecified Mar 29 2018 3:07PM Cervicalgia Apr 11 2018 1:14PM Anesthesia Apr 11 2018 1:14PM Neuropathic pain Apr 11 2018 1:14PM Fibromyalgia Apr 11 2018 1:14PM Chronic pain syndrome Apr 11 2018 1:14PM Thyroid nodule Apr 30 2018 10:25AM Right lower quadrant abdominal pain Apr 30 2018 2:18PM Constipation Apr 30 2018 2:18PM Hypothyroidism, Acquired May 22 2018 2:38PM Weight gain May 22 2018 2:38PM Payers Insurance Name Company Name Plan Name Plan Number Policy Number Policy Group Number Start Date [employer] [place] [id number] N/A [employer] Alex 100 PERCENT Tuesday, November 21, 2017 [employer] Alex 100 percent Tuesday, November 21, 2017 [employer] [place] [id number] Friday, October 02, 2009 [employer] [place] [id number] November State Self Insurance Fund *INVALID State Self Insurance [id number] N /A State Self Insurance Fund *INVALID State Self Insurance [id number] N /A [employer] [place] [id number] July [employer] [place] [id number] September History of Encounters Visit Date Visit Type Provider 05/22/2018 Office visit Sean Marie MD 04/30/2018 Office visit Sean Marie MD 04/11/2018 Office visit Fredissuzan Lama DO 03/29/2018 Office visit Sean Marie MD 03/09/2018 Office visit Sean Marie MD 02/28/2018 Office visit Fredissuzan Lama DO 01/29/[address] Laine Siegel MD 01/19/2018 Office visit Sean Marie MD 10/27/2017 Office visit Fredissuzan Lama DO 10/23/2017 Office visit Sean Marie MD 09/20/2017 Office visit Fredissuzan Lama DO 08/31/2017 Office visit Fredissuzan Lama DO 08/09/2017 Office visit Sean Marie MD 07/07/2017 Office visit Sean Marie MD 06/16/2017 Office visit Sean Marie MD 05/15/2017 Office visit Sean Marie MD 04/23/2017 Office visit Aurora Martin HEAD OPERATOR SULFIDE 04/14/2017 Office visit Sean Marie MD 03/20/2017 Office visit Sean Marie MD 03/03/2017 Office visit Aurora Martin HEAD OPERATOR SULFIDE 01/09/2017 Office visit Sean Marie MD 01/02/2017 Office visit Sean Marie MD 12/27/2016 Office visit Sean Marie MD 2016 Office visit Sean Marie MD 09/19/2016 Office visit Sean Marie MD 07/01/2016 Office visit Sean Marie MD 06/17/2016 Office visit Sean Marie MD 05/20/2016 Office visit 05/20/2016 Office visit Sean Marie MD 05/16/2016 [facility] Gre[facility] MD 04/01/2016 Office visit Sean Marie MD 02/25/2016 Office visit Sean Marie MD 01/16/2016 Office visit Jania Stanley HEAD OPERATOR SULFIDE 01/07/2016 [facility] MD 12/31/2015 Office visit Sean Marie MD 12/09/2015 Office visit Miguel A Munoz HEAD OPERATOR SULFIDE 11/17/2015 Office visit Sean Marie MD 11/03/2015 Office visit Sean Marie MD 10/09/2015 Office visit 10/09/2015 Office visit Sean Marie MD 08/31/2015 Office visit Sean Marie MD 08/25/2015 Office visit Sean aMrie MD 06/05/2015 Office visit Sean Marie MD 05/07/2015 Office visit Amaris Gentile HEAD OPERATOR SULFIDE 05/06/2015 Office visit Kiarra Ramos HEAD OPERATOR SULFIDE 04/01/2015 Office visit 04/01/2015 Office visit Sean Marie MD 04/01/2015 [facility] MD 03/26/2015 Office visit Sean Marie MD 03/19/2015 Office visit Sean Marie MD 02/13/2015 Office visit Sean Marie MD 01/26/2015 Office visit Leena Haddad HEAD OPERATOR SULFIDE 01/12/2015 Office visit Sean Marie MD 11/24/2014 Office visit Kiarra Ramos HEAD OPERATOR SULFIDE 10/22/2014 Office visit Miguel A Munoz HEAD OPERATOR SULFIDE 08/22/2014 Office visit Sean Marie MD 08/01/2014 Office visit Sean Marie MD 06/09/2014 Office visit Kiarra Ramos HEAD OPERATOR SULFIDE 03/14/2014 Office visit Leena Haddad HEAD OPERATOR SULFIDE 02/27/2014 Office visit Leena Haddad HEAD OPERATOR SULFIDE 12/02/2013 Office visit Sean Marie MD 11/25/2013 Office visit Sean Marie MD 11/14/2013 Office visit Kiarra Ramos HEAD OPERATOR SULFIDE 08/21/2013 Office visit Leena Haddad HEAD OPERATOR SULFIDE 08/09/2013 Office visit Kiarra Ramos HEAD OPERATOR SULFIDE 06/26/2013 [facility] MD 06/26/2013 Office visit Sean Marie MD 06/21/2013 Office visit Kiarra Ramos HEAD OPERATOR SULFIDE 05/31/2013 Office visit Leena Haddad HEAD OPERATOR SULFIDE 05/10/2013 Office visit Leena Haddad HEAD OPERATOR SULFIDE 05/03/2013 Office visit Leena Haddad HEAD OPERATOR SULFIDE 03/27/2013 Office visit Kiarra Ramos HEAD OPERATOR SULFIDE 03/05/2013 Office visit Kiarra Ramos HEAD OPERATOR SULFIDE 02/27/2013 Office visit Kiarra Ramos HEAD OPERATOR SULFIDE 01/08/2013 Office visit Sean Marie MD 10/30/2012 Office visit Sean Marie MD 04/26/2012 Nurse visit Maria Antonia Barakat HEAD OPERATOR SULFIDE 02/07/2012 Office visit Sean Marie MD 02/07/2012 [facility]co MD 12/13/2011 Office visit Sean Marie MD 11/08/2011 Office visit Sean Marie MD 10/24/2011 Office visit Sean Marie MD 08/05/2011 Office visit Sean Marie MD 07/12/2011 Office visit Kiarra Ramos HEAD OPERATOR SULFIDE 05/11/2011 Office visit Sean Marie MD 04/19/2011 Office visit Sean Marie MD 03/17/2011 Office visit Sean Marie MD 03/03/2011 Office visit Sean Marie MD 07/12/2010 Office visit Maggie CH 05/11/2010 Office visit Sean Marie MD 03/15/2010 Office visit Sean Marie MD 03/03/2010 Office visit Sean Marie MD 02/08/2010 Office visit Sean Marie MD 08/21/2009 Laboratory Sean Marie MD 08/21/2009 Voided Sean Marie MD 07/27/2009 Office visit Sean Marie MD 07/06/2009 Nurse visit Sean Marie MD
--- OUTSIDE RECORDS SUMMARY | 2018-07-18 11:48 | XMS REPORT ---
Author Author [facility] Address [address] [place], [place] [id number] Care Team Providers Care Calciminer Name Role Phone Sean Marie PCP Sean Marie PreferredProvider Allergies and Adverse Reactions Name Reaction Notes Albuterol tachycardia increases heart rate too much Percocet "head crawling" Adhesive Tape Plan of Treatment Planned Activity Comments Planned Date Planned Time Plan/Goal Mammography; bilateral 11/13/2017 12:00 AM CBC With Auto Differential 01/08/2013 12:00 AM US SOFT TISSUES HEAD AND NECK 04/30/2018 12:[address] ABD AND PELVIS W/CONTRAST 04/30/2018 12:00 AM EKG (12-lead electrocardiogram) 06/26/2013 12:00 [...] TABLET BY MOUTH ONCE DAILY AT BEDTIME trazodone 150 mg oral tablet take 1/2 tablet at bedtime lovastatin 40 mg oral tablet 05/11/2015 TAKE [...] route 2 times a day as needed Abilify 5 mg oral tablet 01/19/2018 take 1 tablet (5 mg) by oral route once daily Toviaz 8 mg oral tablet extended release [...] oral route every 12 hours as needed clonidine HCl 0.1 mg oral tablet 04/23/2018 take 1 tablet by oral route 3 times a day as needed for 30 days Name Start Date Expiration Date SIG Comments [...] mg) by oral route every 4 hours [employer] Thyroid 60 mg oral tablet 07/31/2017 07/31/2017 [...] topical route 2 times per day Alen BATRES Cough and Chest 10-200 mg/5 mL oral [...] by oral route 2 times per day [place] Thyroid 60 mg oral tablet 12/02/2013 take 1 tablet by oral route daily for 30 days [place] Thyroid 60 mg oral tablet 04/07/2014 TAKE ONE TABLET BY MOUTH ONCE DAILY milk thistle oral 11/24/2014 chromium picolinate oral 06/09/2014 Zofran ODT oral 10/09/2015 Dexilant 60 mg oral capsule,biphase delayed releas 07/09/2014 11/24/2014 TAKE ONE CAPSULE BY MOUTH EVERY DAY [place] Thyroid 60 mg oral tablet 08/04/2014 TAKE [...] by oral route once daily at bedtime Murray 5-325 mg oral tablet 08/22/2014 11/24/2014 take [...] by topical route 2 times per day [place] Thyroid 60 mg oral tablet 07/13/2015 TAKE [...] daily in the morning for 30 days [place] Thyroid 60 mg oral tablet 07/11/2016 08/09/2017 [...] route once daily with the evening meal Murray 10-325 mg oral tablet 01/19/2018 04/30/2018 take 1 tablet by oral route every 6 hours as needed for pain Ambien 10 mg oral tablet 03/26/2018 04/30/2018 [...] TABLET BY MOUTH AT BEDTIME FOR INSOMNIA Belsomra 15 mg oral tablet 04/23/2018 04/30/2018 TAKE 1 TABLET BY MOUTH AT BEDTIME Problem List Description Status Onset Hypothyroidism, acquired Active Allergic rhinitis; due to other allergen Active Chronic Obstructive Pulmonary Disease Active 10/24/2011 Osteoarthritis Active 11/14/2013 Hyperlipidemia, unspecified Active 06/11/2014 Vital Signs Date Time BP-Sys(mm[Hg] BP-Jocelyn(mm[Hg]) HR(bpm) RR(rpm) Temp WT HT HC BMI BSA BMI Percentile O2 Sat(%) 04/30/2018 2:17:00 PM 140 mmHg 92 mmHg 95 bpm 20 rpm 98.2 F 286.375 lbs 65 in 47.6548 kg/m 2.4408 m 97 % 04/11/2018 1:12:00 PM 138 mmHg 84 mmHg 92 bpm 98.2 F 282.125 lbs 65 in 46.95 kg/m2 2.42 m2 97 % 03/29/2018 3:06:00 PM 138 mmHg 78 mmHg 84 bpm 18 rpm 98.4 F 278 lbs 65 in 46.2611 kg/m 2.4048 m 98 % 03/09/2018 8:58:00 AM 151 mmHg 85 mmHg 94 bpm 18 rpm 98.8 F 271.25 lbs 65 in 45.14 kg/m2 2.38 m2 95 % 02/28/2018 8:02:00 AM 130 mmHg 74 mmHg 89 bpm 18 rpm 97.9 F 268.125 lbs 65 in 44.6179 kg/m 2.3617 m 97 % 01/29/2018 3:32:00 PM 149 mmHg 81 mmHg 89 bpm 98.6 F 263.375 lbs 65 in 43.83 kg/m2 2.34 m2 10/27/2017 9:06:00 AM 130 mmHg 75 mmHg 90 bpm 20 rpm 99.2 F 264 lbs 65 in 43.9314 kg/m 2.3435 m 97 % 10/23/2017 8:32:00 AM 166 mmHg 84 mmHg 87 bpm 16 rpm 98.9 F 270 lbs 65 in 44.93 kg/m2 2.37 m2 97 % 09/20/2017 11:24:00 AM 150 mmHg [...] 12:00 AM Decadron, Per 1 Mg [facility]# [address]-02 Reviewed 08/25/2015 12:00 AM Depo-Medrol, Per 80 Mg [facility]#[address]-23 Reviewed 08/25/2015 12:00 AM Rocephin 1 gram [facility]#6086-4749-28 Reviewed 10/09/2015 12:00 AM COMPLETE CBC W/AUTO DIFF WBC Reviewed 10/09/2015 12:00 AM COMPREHEN METABOLIC PANEL Reviewed 10/09/2015 12:00 AM GLYCOSYLATED HEMOGLOBIN TEST Reviewed 10/09/2015 12:00 AM ASSAY THYROID STIM HORMONE Reviewed 11/03/2015 8:54 AM URINALYSIS AUTO W/O SCOPE Reviewed 11/03/2015 12:[address] HEAD/BRAIN W/O & W/DYE Reviewed 11/17/2015 12:00 AM Rocephin 1 gram [facility]#6307-2072-05 Reviewed 08/05/2011 12:00 AM CHEST X-RAY 2VW FRONTAL&LATL Reviewed 12/09/2015 12:00 AM THER/PROPH/DIAG INJ SC/IM Reviewed 12/09/2015 12:00 AM Rocephin 1 gram [facility]#8793-2862-48 Reviewed 11/08/2011 12:00 AM Decadron Inj. per 1mg-[facility] [id number] Reviewed 11/08/2011 12:00 AM Depo-Medrol 80 Mg [facility] [id number] Reviewed 05/20/2016 12:00 AM COMPLETE CBC W/AUTO [...] 12:00 AM Decadron, Per 1 Mg [facility]# [address]-45 Reviewed 10/30/2012 12:00 AM COMPLETE CBC W/AUTO [...] 12:00 AM Decadron, Per 1 Mg [facility]# [address]-38 Reviewed 01/08/2013 12:00 AM Rocephin 1 gram [facility]#7861-8116-96 Reviewed 01/08/2013 12:00 AM COMPREHEN METABOLIC PANEL Reviewed 01/08/2013 12:00 AM GLYCOSYLATED HEMOGLOBIN TEST Reviewed 01/08/2013 12:00 AM ASSAY THYROID STIM HORMONE Reviewed 01/08/2013 12:00 AM ASSAY OF PARATHORMONE Reviewed 01/08/2013 12:00 AM LIPID PANEL Reviewed 02/27/2013 12:00 AM THER/PROPH/DIAG INJ SC/IM Reviewed 02/27/2013 12:00 AM Decadron, Per 1 Mg [facility]# [address]-41 Reviewed 02/27/2013 12:00 AM Depo-Medrol, Per 80 Mg [facility]#1184-2406-27 Reviewed 03/04/2013 12:00 AM MAMMOGRAM SCREENING Reviewed 03/05/2013 12:00 AM CYTOPATH TBS C/V MANUAL Reviewed 03/05/2013 12:00 AM MAMMOGRAM BOTH BREASTS Reviewed 03/27/2013 12:00 AM THER/PROPH/DIAG INJ SC/IM Reviewed 03/27/2013 12:00 AM Bicillin CR, 1.2 million units [facility]# 35254-489-05 Reviewed 05/10/2013 12:00 AM X-RAY EXAM KNEE [...] 12:00 AM Decadron, Per 1 Mg [facility]# [address]-33 Reviewed 08/09/2013 12:00 AM Depo-Medrol, Per 80 Mg [facility]#7688-2928-61 Reviewed 08/21/2013 12:00 AM X-RAY EXAM OF [...] 03/26/2015 12:00 AM Rocephin 1 gram [facility]#9338-2463-23 Reviewed 04/01/2015 12:00 AM COMPLETE CBC W/AUTO DIFF WBC Reviewed 04/01/2015 12:00 AM COMPREHEN METABOLIC PANEL Reviewed 04/01/2015 12:00 AM ASSAY THYROID STIM HORMONE Reviewed 04/01/2015 12:00 AM CHEST X-RAY 2VW FRONTAL&LATL Reviewed 05/07/2015 12:00 AM THER/PROPH/DIAG INJ SC/IM Reviewed 05/07/2015 12:00 AM Decadron injection Reviewed 05/07/2015 12:00 AM Depo-Medrol 40mg Reviewed 05/11/2011 12:00 AM Depo-Medrol 80 Mg [facility] [id number] Reviewed 05/11/2011 12:00 AM Decadron Inj. per 1mg-[facility] [id number]-Rryuppcpj Reviewed Results Summary Date and Description Results [...] Vis Given Vis Pub CVX Tdap 04/26/2012 [employer] ADACEL [id number] Intramuscular Left Arm 04/26/2012 08/19/2008 115 Tdap 03/14/2014 test company [employer] [id number] Intramuscular Left Deltoid 03/14/2014 02/07/2013 115 Influenza 06/22/2015 [facility] NOV FLUVIRIN [id number] Intramuscular Left Deltoid 06/23/2015 05/08/2015 140 Pneumococcal 09/16/2015 Not Entered NE PNEUMOVAX 23 Intramuscular Not Entered 11/11/2016 10/02/2017 33 Influenza 07/07/2017 [employer]of[employer] pasteur [employer]C Fluzone Quadrivalent [id number] Intramuscular Left Deltoid 07/07/2017 05/08/2015 150 History [...] Oct 09 2015 8:55AM Altered mental state Nov 03 2015 8:47AM Bacterial vaginosis Nov 03 2015 [...] 2018 2:18PM Constipation Apr 30 2018 2:18PM Payers Insurance Name Company Name Plan Name Plan Number Policy Number Policy Group Number Start Date [employer] [place] [id number] N/A [employer] 100 PERCENT Tuesday, November 21, 2017 [employer] Assistance [employer] Alex 100 percent Tuesday, November 21, 2017 [employer] [place] [id number] Friday, October 02, 2009 [employer] [place] [id number] November State Self Insurance Fund *INVALID State Self Insurance [id number] N /A State Self Insurance Fund *INVALID State Self Insurance [id number] N /A [employer] [place] [id number] July [employer] [place] [id number] September History of Encounters Visit Date Visit Type Provider 04/30/2018 Office visit Sean Marie MD 04/11/2018 Office visit Fredis Rico DO 03/29/2018 Office visit Sean Marie MD 03/09/2018 Office visit Sean Marie MD 02/28/2018 Office visit Fredis Rico DO 01/29/[address] Laine Siegel MD 01/19/2018 Office visit Sean Marie MD 10/27/2017 Office visit Fredis Rico DO 10/23/2017 Office visit Sean Marie MD 09/20/2017 Office visit Fredis Rico DO 08/31/2017 Office visit Fredis Rico DO 08/09/2017 Office visit Sean Marie MD 07/07/2017 Office visit Sean Marie MD 06/16/2017 Office visit Sean Marie MD 05/15/2017 Office visit Sean Marie MD 04/23/2017 Office visit Aurora Martin APRN 04/14/2017 Office visit Sean Marie MD 03/20/2017 Office visit Sean Marie MD 03/03/2017 Office visit Aurora Martin AUGER OPERATOR 01/09/2017 Office visit Sean Marie MD 01/02/2017 [...] Marie MD 01/16/2016 Office visit Jania Stanley AUGER OPERATOR 01/07/2016 [facility] MD 12/31/2015 Office visit Sean Marie MD 12/09/2015 Office visit Miguel A Munoz AUGER OPERATOR 11/17/2015 Office visit Sean Marie MD 11/03/2015 Office visit Sean Marie MD 10/09/2015 Office visit 10/09/2015 Office visit Sean Marie MD 08/31/2015 Office visit Sean Marie MD 08/25/2015 Office visit Sean Marie MD 06/05/2015 Office visit Sean Marie MD 05/07/2015 Office visit Amaris Gentile AUGER OPERATOR 05/06/2015 Office visit Kiarra Ramos AUGER OPERATOR 04/01/2015 Office visit 04/01/2015 Office visit Sean Marie MD 04/01/2015 [facility]co MD 03/26/2015 Office visit Sean Marie MD 03/19/2015 Office visit Sean Marie MD 02/13/2015 Office visit Sean Marie MD 01/26/2015 Office visit Leena Haddad AUGER OPERATOR 01/12/2015 Office visit Sean Marie MD 11/24/2014 Office visit Kiarra Ramos AUGER OPERATOR 10/22/2014 Office visit Miguel A Munoz AUGER OPERATOR 08/22/2014 Office visit Sean Marie MD 08/01/2014 Office visit Sean Marie MD 06/09/2014 Office visit Kiarra Ramos AUGER OPERATOR 03/14/2014 Office visit Leena Haddad AUGER OPERATOR 02/27/2014 Office visit Leena Mona Haddad AUGER OPERATOR 12/02/2013 Office visit Sean Marie MD 11/25/2013 Office visit Sean Marie MD 11/14/2013 Office visit Kiarra Ramos AUGER OPERATOR 08/21/2013 Office visit Leena Haddad AUGER OPERATOR 08/09/2013 Office visit Kiarra Ramos AUGER OPERATOR 06/26/2013 [facility] Greco MD 06/26/2013 Office visit Sean Marie MD 06/21/2013 Office visit Kiarra Ramos AUGER OPERATOR 05/31/2013 Office visit Leena Haddad AUGER OPERATOR 05/10/2013 Office visit Leena Haddad AUGER OPERATOR 05/03/2013 Office visit Leena RodriguezEd Haddad AUGER OPERATOR 03/27/2013 Office visit Kiarra Ramos AUGER OPERATOR 03/05/2013 Office visit Kiarra Ramos AUGER OPERATOR 02/27/2013 Office visit Kiarra Ramos AUGER OPERATOR 01/08/2013 Office visit Sean Marie MD 10/30/2012 Office visit Sean Marie MD 04/26/2012 Nurse visit Maria Antonia Barakat AUGER OPERATOR 02/07/2012 Office visit Sean Marie MD 02/07/2012 [facility] Michelle Greco MD 12/13/2011 Office visit Sean Marie MD 11/08/2011 Office visit Sean Marie MD 10/24/2011 Office visit Sean Marie MD 08/05/2011 Office visit Sean Marie MD 07/12/2011 Office visit Kiarra Ramos AUGER OPERATOR 05/11/2011 Office visit Sean Marie MD 04/19/2011 [...]
--- OUTSIDE RECORDS SUMMARY | 2018-07-18 11:51 | XMS REPORT ---
Author Author Fredis Rico [facility] Address [address] [place] [id number] Care Team Providers Care Sight Effects Specialist Name Role Phone Fredis Rico PCP Sean Marie PreferredProvider Allergies and Adverse Reactions Name Reaction Notes Albuterol tachycardia increases heart rate too much Percocet "head crawling" Adhesive Tape Plan of Treatment Planned Activity Comments Planned Date Planned Time Plan/Goal Mammography; bilateral 11/13/2017 12:00 AM CBC With Auto Differential 01/08/2013 12:00 AM US SOFT TISSUES HEAD AND NECK 04/30/2018 12:00 AM EKG (12-lead electrocardiogram) 06/26/2013 [...] mcg/actuation nasal spray,suspension Singulair oral Zyrtec oral Lamictal 100 mg oral tablet 07/07/2017 take 1 tablet (100 mg) by oral route once daily for 30 days Breo Ellipta 100-25 mcg/dose inhalation blister with device 07/07/2017 inhale 1 puff by inhalation route once daily at the same time each day Xanax 0.25 mg oral tablet 09/11/2017 take 1 tablet by oral route 2 times a day as needed [place] 10-325 mg oral tablet 01/19/2018 take 1 tablet by oral route every 6 hours as needed for pain Abilify 5 mg oral tablet 01/19/2018 take [...] AFTER TAPER OF 25 MG IS COMPLETE) Ambien 10 mg oral tablet 03/26/2018 07/24/2018 take 1 tablet (10 mg) by oral route once daily at bedtime for 30 days Savella 50 mg oral tablet take 1 [...] oral route every 12 hours as needed Belsomra 10 mg oral tablet TAKE 1 TABLET BY MOUTH AT BEDTIME FOR INSOMNIA clonidine HCl 0.1 mg oral tablet 04/23/2018 take 1 tablet by oral route 3 times a day as needed for 30 days Belsomra 15 mg oral tablet 04/23/2018 TAKE 1 TABLET BY MOUTH AT BEDTIME Name Start Date Expiration Date SIG Comments [...] mg) by oral route every 4 hours 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 Thyroid 60 mg oral tablet 07/31/2017 07/31/2017 [...] by oral route 2 times per day [place] Thyroid 60 mg oral tablet 12/02/2013 take 1 tablet by oral route daily for 30 days [place] Thyroid 60 mg oral tablet 04/07/2014 TAKE ONE TABLET BY MOUTH ONCE DAILY milk thistle oral 11/24/2014 chromium picolinate oral 06/09/2014 Zofran ODT oral 10/09/2015 Dexilant 60 mg oral capsule,biphase delayed releas 07/09/2014 11/24/2014 TAKE ONE CAPSULE BY MOUTH EVERY DAY [place] Thyroid 60 mg oral tablet 08/04/2014 TAKE [...] by oral route once daily at bedtime [place] 5-325 mg oral tablet 08/22/2014 11/24/2014 take [...] by mouth at bedtime. for 90 days Jennifer Armentaogia 200-500 mcg-mg oral tablet 10/09/2015 triamcinolone acetonide 0.1 % topical cream 05/06/2015 10/09/2015 apply a thin layer to the affected area(s) by topical route 2 times per day [place] Thyroid 60 mg oral tablet 07/13/2015 TAKE [...] daily in the morning for 30 days [place] Thyroid 60 mg oral tablet 07/11/2016 08/09/2017 [...] route 2 times per day with food duloxetine 30 mg oral capsule,delayed release(DR/EC) 07/10/2017 [...] route once daily with the evening meal gabapentin 600 mg oral tablet 03/29/2018 04/11/2018 take 1 tablet (600 mg) by oral route at HS gabapentin 300 mg oral capsule 03/29/2018 04/11/2018 take 1 capsule (300 mg) by oral route 2 times per day Problem List Description Status Onset Hypothyroidism, acquired Active Allergic rhinitis; due to other allergen Active Chronic Obstructive Pulmonary Disease Active 10/24/2011 Osteoarthritis Active 11/14/2013 Hyperlipidemia, unspecified Active 06/11/2014 Vital Signs Date Time BP-Sys(mm[Hg] BP-Jocelyn(mm[Hg]) HR(bpm) RR(rpm) Temp WT HT HC BMI BSA BMI Percentile O2 Sat(%) 04/11/2018 1:12:00 PM 138 mmHg 84 mmHg [...] 08/25/2015 12:00 AM Decadron, Per 1 Mg [facility]# [address]-20 Reviewed 08/25/2015 12:00 AM Depo-Medrol, Per 80 Mg [facility]#[address]-86 Reviewed 08/25/2015 12:00 AM Rocephin 1 gram [facility]#6710-1102-80 Reviewed 10/09/2015 12:00 AM COMPLETE CBC W/AUTO DIFF WBC Reviewed 10/09/2015 12:00 AM COMPREHEN METABOLIC PANEL Reviewed 10/09/2015 12:00 AM GLYCOSYLATED HEMOGLOBIN TEST Reviewed 10/09/2015 12:00 AM ASSAY THYROID STIM HORMONE Reviewed 11/03/2015 8:54 AM URINALYSIS AUTO W/O SCOPE Reviewed 11/03/2015 12:[address] HEAD/BRAIN W/O & W/DYE Reviewed 11/17/2015 12:00 AM Rocephin 1 gram [facility]#7072-9134-35 Reviewed 08/05/2011 12:00 AM CHEST X-RAY 2VW FRONTAL&LATL Reviewed 12/09/2015 12:00 AM THER/PROPH/DIAG INJ SC/IM Reviewed 12/09/2015 12:00 AM Rocephin 1 gram [facility]#9482-1656-35 Reviewed 11/08/2011 12:00 AM Decadron Inj. per 1mg-[facility] [id number] Reviewed 11/08/2011 12:00 AM Depo-Medrol 80 Mg [facility] [id number] Reviewed 05/20/2016 12:00 AM COMPLETE CBC W/AUTO [...] 10/30/2012 12:00 AM Decadron, Per 1 Mg [facility]# [address]-37 Reviewed 10/30/2012 12:00 AM COMPLETE CBC W/AUTO [...] 01/08/2013 12:00 AM Decadron, Per 1 Mg [facility]# [address]-29 Reviewed 01/08/2013 12:00 AM Rocephin 1 gram [facility]#1762-6957-58 Reviewed 01/08/2013 12:00 AM COMPREHEN METABOLIC PANEL Reviewed 01/08/2013 12:00 AM GLYCOSYLATED HEMOGLOBIN TEST Reviewed 01/08/2013 12:00 AM ASSAY THYROID STIM HORMONE Reviewed 01/08/2013 12:00 AM ASSAY OF PARATHORMONE Reviewed 01/08/2013 12:00 AM LIPID PANEL Reviewed 02/27/2013 12:00 AM THER/PROPH/DIAG INJ SC/IM Reviewed 02/27/2013 12:00 AM Decadron, Per 1 Mg [facility]# [address]-01 Reviewed 02/27/2013 12:00 AM Depo-Medrol, Per 80 Mg [facility]#9102-0661-72 Reviewed 03/04/2013 12:00 AM MAMMOGRAM SCREENING Reviewed 03/05/2013 12:00 AM CYTOPATH TBS C/V MANUAL Reviewed 03/05/2013 12:00 AM MAMMOGRAM BOTH BREASTS Reviewed 03/27/2013 12:00 AM THER/PROPH/DIAG INJ SC/IM Reviewed 03/27/2013 12:00 AM Bicillin CR, 1.2 million units [facility]# 63130-079-98 Reviewed 05/10/2013 12:00 AM X-RAY EXAM KNEE [...] 08/09/2013 12:00 AM Decadron, Per 1 Mg [facility]# [address]-96 Reviewed 08/09/2013 12:00 AM Depo-Medrol, Per 80 Mg [facility]#6527-1958-36 Reviewed 08/21/2013 12:00 AM X-RAY EXAM OF [...] Reviewed 03/26/2015 12:00 AM Rocephin 1 gram [facility]#8715-6271-43 Reviewed 04/01/2015 12:00 AM COMPLETE CBC W/AUTO DIFF WBC Reviewed 04/01/2015 12:00 AM COMPREHEN METABOLIC PANEL Reviewed 04/01/2015 12:00 AM ASSAY THYROID STIM HORMONE Reviewed 04/01/2015 12:00 AM CHEST X-RAY 2VW FRONTAL&LATL Reviewed 05/07/2015 12:00 AM THER/PROPH/DIAG INJ SC/IM Reviewed 05/07/2015 12:00 AM Decadron injection Reviewed 05/07/2015 12:00 AM Depo-Medrol 40mg Reviewed 05/11/2011 12:00 AM Depo-Medrol 80 Mg [facility] [id number] Reviewed 05/11/2011 12:00 AM Decadron Inj. per 1mg-[facility] [id number] Reviewed Results Summary Date and Description Results [...] HGB 13.20 g/dLHCT 41.10 % MCV 83.0 fLH 26.80 pgMCHC 32.10 g/dLRDW SD 40 RDW [...] Vis Given Vis Pub CVX Tdap 04/26/2012 [email or web address] SKB ADACEL [id number] Intramuscular Left Arm 04/26/2012 08/19/2008 115 Tdap 03/14/2014 [email or web address] SKB BOOSTRIX [id number] Intramuscular Left Deltoid 03/14/2014 02/07/2013 115 Influenza 06/22/2015 [employer] NOV FLUVIRIN [id number] Intramuscular Left Deltoid 06/23/2015 05/08/2015 140 Pneumococcal 09/16/2015 Not Entered [place] PNEUMOVAX 23 Intramuscular Not Entered 11/11/2016 10/02/2017 33 Influenza 07/07/2017 sanofi pasteur [facility] Fluzone Quadrivalent [id number] Intramuscular Left Deltoid 07/07/2017 05/08/2015 150 History [...] 1:14PM Thyroid nodule Apr 30 2018 10:25AM Payers Insurance Name Company Name Plan Name Plan Number Policy Number Policy Group Number Start Date [employer] [place] [id number] N/A [facility] [employer] Alex 100 PERCENT Tuesday, November 21, 2017 [employer] [employer] Alex 100 percent Tuesday, November 21, 2017 [employer] [place] [id number] Friday, October 02, 2009 [employer] [place] [id number] November [place] Self Insurance Fund *INVALID [place] Self Insurance [id number] N /A State Self Insurance Fund *INVALID State Self Insurance [id number] N /A [employer] [place] [id number] July [employer] [place] [id number] September History of Encounters Visit Date Visit Type Provider 04/11/2018 Office visit Fredis Lama DO 03/29/2018 Office visit Sean Marie MD 03/09/2018 Office visit Sean Marie MD 02/28/2018 Office visit Fredis Rico DO 01/29/[address] Laine Siegel MD 01/19/2018 Office visit Sean Marie MD 10/27/2017 Office visit Fredis Lama DO 10/23/2017 Office visit Sean Marie MD 09/20/2017 Office visit Fredis Lama DO 08/31/2017 Office visit Fredis Rico DO 08/09/2017 Office visit Sean Marie MD 07/07/2017 Office visit Sean Marie MD 06/16/2017 Office visit Sean Marie MD 05/15/2017 Office visit Sean Marie MD 04/23/2017 Office visit Aurora Martin APRN 04/14/2017 Office visit Sean Marie MD 03/20/2017 Office visit Sean Marie MD 03/03/2017 Office visit Aurora Martin APRN 01/09/2017 Office visit Sean Marie MD 01/02/2017 [...] Marie MD 01/16/2016 Office visit Jania Stanley STAKING TECHNICIAN 01/07/2016 Hospital Michelle Greco MD 12/31/2015 Office visit Sean Marie MD 12/09/2015 Office visit Miguel A Munoz STAKING TECHNICIAN 11/17/2015 Office visit Sean Marie MD 11/03/2015 Office visit Sean Marie MD 10/09/2015 Office visit 10/09/2015 Office visit Sean Marie MD 08/31/2015 Office visit Sean Marie MD 08/25/2015 Office visit Sean Marie MD 06/05/2015 Office visit Saen Marie MD 05/07/2015 Office visit Amaris Gentile STAKING TECHNICIAN 05/06/2015 Office visit Kiarra Ramos STAKING TECHNICIAN 04/01/2015 Office visit 04/01/2015 Office visit Sean Marie MD 04/01/2015 Hospital Michelle Greco MD 03/26/2015 Office visit Sean Marie MD 03/19/2015 Office visit Sean Marie MD 02/13/2015 Office visit Sean Marie MD 01/26/2015 Office visit Leena Haddad STAKING TECHNICIAN 01/12/2015 Office visit Sean Marie MD 11/24/2014 Office visit Kiarra Ramos STAKING TECHNICIAN 10/22/2014 Office visit Miguel A Munoz STAKING TECHNICIAN 08/22/2014 Office visit Sean Marie MD 08/01/2014 Office visit Sean Marie MD 06/09/2014 Office visit Kiarra Ramos STAKING TECHNICIAN 03/14/2014 Office visit Leena Haddad STAKING TECHNICIAN 02/27/2014 Office visit Leena Haddad STAKING TECHNICIAN 12/02/2013 Office visit Sean Marie MD 11/25/2013 Office visit Sean Marie MD 11/14/2013 Office visit Kiarra Ramos STAKING TECHNICIAN 08/21/2013 Office visit Leena Haddad STAKING TECHNICIAN 08/09/2013 Office visit Kiarra Ramos STAKING TECHNICIAN 06/26/2013 Hospital Michelle Greco MD 06/26/2013 Office visit Sean Marie MD 06/21/2013 Office visit Kiarra Ramos STAKING TECHNICIAN 05/31/2013 Office visit Leena Haddad STAKING TECHNICIAN 05/10/2013 Office visit Leena Haddad STAKING TECHNICIAN 05/03/2013 Office visit Leena Haddad STAKING TECHNICIAN 03/27/2013 Office visit Kiarra Ramos STAKING TECHNICIAN 03/05/2013 Office visit Kiarra Ramos STAKING TECHNICIAN 02/27/2013 Office visit Kiarra Ramos STAKING TECHNICIAN 01/08/2013 Office visit Sean Marie MD 10/30/2012 Office visit Sean Marie MD 04/26/2012 Nurse visit Maria Antonia Barakat STAKING TECHNICIAN 02/07/2012 Office visit Sean Marie MD 02/07/2012 [facility] Michelle Greco MD 12/13/2011 Office visit Sean Marie MD 11/08/2011 Office visit Sean Marie MD 10/24/2011 Office visit Sean Marie MD 08/05/2011 Office visit Sean Marie MD 07/12/2011 Office visit Kiarra Ramos STAKING TECHNICIAN 05/11/2011 Office visit Sean Marie MD 04/19/2011 [...]
--- OUTSIDE RECORDS SUMMARY | 2018-07-18 11:54 | XMS REPORT ---
Author Author Fredis Rico Organization [facility] Address [address] [place] [id number] Care Team Providers Care Incident Response Engineer Name Role Phone Fredis Rico PCP Sean Marie PreferredProvider Allergies and Adverse Reactions Name Reaction Notes Albuterol tachycardia increases heart rate too much Percocet "head crawling" Adhesive Tape Plan of Treatment Planned Activity Comments Planned Date Planned Time Plan/Goal Mammography; bilateral 11/13/2017 12:00 AM CBC With Auto Differential 01/08/2013 12:00 AM EKG (12-lead electrocardiogram) 06/26/2013 12:00 [...] route 2 times a day as needed [place] 10-325 mg oral tablet 01/19/2018 take 1 [...] once daily at bedtime for 30 days Lunesta 3 mg oral [...] oral route every 12 hours as needed Name Start Date Expiration Date SIG Comments [...] mg) by oral route every 4 hours [employer] Thyroid 60 mg oral tablet 07/31/2017 07/31/2017 [...] TO EXCEED 3 DOSES IN 24 HOURS) clonidine HCl 0.1 mg oral tablet 03/09/2018 04/08/2018 take 1 tablet by oral route 3 times a day as needed for 30 days OxyContin 40 mg oral tablet,oral only,ext.rel.12 hr 03/09/2018 04/08/2018 take 1 tablet (40 mg) by oral route every 12 hours for 30 days Discontinued Name Start Date [...] by oral route 2 times per day [place] Thyroid 60 mg oral tablet 12/02/2013 take 1 tablet by oral route daily for 30 days [place] Thyroid 60 mg oral tablet 04/07/2014 TAKE ONE TABLET BY MOUTH ONCE DAILY milk thistle oral 11/24/2014 chromium picolinate oral 06/09/2014 Zofran ODT oral 10/09/2015 Dexilant 60 mg oral capsule,biphase delayed releas 07/09/2014 11/24/2014 TAKE ONE CAPSULE BY MOUTH EVERY DAY [place] Thyroid 60 mg oral tablet 08/04/2014 TAKE [...] by oral route once daily at bedtime [place] 5-325 mg oral tablet 08/22/2014 11/24/2014 take [...] by topical route 2 times per day [place] Thyroid 60 mg oral tablet 07/13/2015 TAKE [...] daily in the morning for 30 days [place] Thyroid 60 mg oral tablet 07/11/2016 08/09/2017 [...] day Problem List Description Status Onset Hypothyroidism, Acquired Active Allergic rhinitis; due to other allergen [...] 08/25/2015 12:00 AM Decadron, Per 1 Mg [facility]# [address]-81 Reviewed 08/25/2015 12:00 AM Depo-Medrol, Per 80 Mg [facility]#[address]-04 Reviewed 08/25/2015 12:00 AM Rocephin 1 gram [facility]#5572-0532-57 Reviewed 10/09/2015 12:00 AM COMPLETE CBC W/AUTO DIFF WBC Reviewed 10/09/2015 12:00 AM COMPREHEN METABOLIC PANEL Reviewed 10/09/2015 12:00 AM GLYCOSYLATED HEMOGLOBIN TEST Reviewed 10/09/2015 12:00 AM ASSAY THYROID STIM HORMONE Reviewed 11/03/2015 8:54 AM URINALYSIS AUTO W/O SCOPE Reviewed 11/03/2015 12:[address] HEAD/BRAIN W/O & W/DYE Reviewed 11/17/2015 12:00 AM Rocephin 1 gram [facility]#0349-4576-10 Reviewed 08/05/2011 12:00 AM CHEST X-RAY 2VW FRONTAL&LATL Reviewed 12/09/2015 12:00 AM THER/PROPH/DIAG INJ SC/IM Reviewed 12/09/2015 12:00 AM Rocephin 1 gram [facility]#4484-7488-53 Reviewed 11/08/2011 12:00 AM Decadron Inj. per 1mg-[facility] [id number] Reviewed 11/08/2011 12:00 AM Depo-Medrol 80 Mg [facility] [id number]-Hoeoursnl Reviewed 05/20/2016 12:00 AM COMPLETE CBC W/AUTO [...] 10/30/2012 12:00 AM Decadron, Per 1 Mg [facility]# [address]-46 Reviewed 10/30/2012 12:00 AM COMPLETE CBC W/AUTO [...] 01/08/2013 12:00 AM Decadron, Per 1 Mg [facility]# [address]-85 Reviewed 01/08/2013 12:00 AM Rocephin 1 gram [facility]#3642-3562-86 Reviewed 01/08/2013 12:00 AM COMPREHEN METABOLIC PANEL Reviewed 01/08/2013 12:00 AM GLYCOSYLATED HEMOGLOBIN TEST Reviewed 01/08/2013 12:00 AM ASSAY THYROID STIM HORMONE Reviewed 01/08/2013 12:00 AM ASSAY OF PARATHORMONE Reviewed 01/08/2013 12:00 AM LIPID PANEL Reviewed 02/27/2013 12:00 AM THER/PROPH/DIAG INJ SC/IM Reviewed 02/27/2013 12:00 AM Decadron, Per 1 Mg [facility]# [address]-13 Reviewed 02/27/2013 12:00 AM Depo-Medrol, Per 80 Mg [facility]#7791-9347-36 Reviewed 03/04/2013 12:00 AM MAMMOGRAM SCREENING Reviewed 03/05/2013 12:00 AM CYTOPATH TBS C/V MANUAL Reviewed 03/05/2013 12:00 AM MAMMOGRAM BOTH BREASTS Reviewed 03/27/2013 12:00 AM THER/PROPH/DIAG INJ SC/IM Reviewed 03/27/2013 12:00 AM Bicillin CR, 1.2 million units [facility]# 19488-112-68 Reviewed 05/10/2013 12:00 AM X-RAY EXAM KNEE [...] 08/09/2013 12:00 AM Decadron, Per 1 Mg [facility]# [address]-54 Reviewed 08/09/2013 12:00 AM Depo-Medrol, Per 80 Mg [facility]#6847-2927-34 Reviewed 08/21/2013 12:00 AM X-RAY EXAM OF [...] Reviewed 03/26/2015 12:00 AM Rocephin 1 gram [facility]#8595-7761-39 Reviewed 04/01/2015 12:00 AM COMPLETE CBC W/AUTO DIFF WBC Reviewed 04/01/2015 12:00 AM COMPREHEN METABOLIC PANEL Reviewed 04/01/2015 12:00 AM ASSAY THYROID STIM HORMONE Reviewed 04/01/2015 12:00 AM CHEST X-RAY 2VW FRONTAL&LATL Reviewed 05/07/2015 12:00 AM THER/PROPH/DIAG INJ SC/IM Reviewed 05/07/2015 12:00 AM Decadron injection Reviewed 05/07/2015 12:00 AM Depo-Medrol 40mg Reviewed 05/11/2011 12:00 AM Depo-Medrol 80 Mg [facility] [id number] Reviewed 05/11/2011 12:00 AM Decadron Inj. per 1mg-[facility] [id number] Reviewed Results Summary Date and Description Results [...] Vis Given Vis Pub CVX Tdap 04/26/2012 [employer] SKB ADACEL [id number] Intramuscular Left Arm 04/26/2012 08/19/2008 115 Tdap 03/14/2014 [facility] SKB BOOSTRIX [id number] Intramuscular Left Deltoid 03/14/2014 02/07/2013 115 Influenza 06/22/2015 [employer] NOV FLUVIRIN [id number] Intramuscular Left Deltoid 06/23/2015 05/08/2015 140 Pneumococcal 09/16/2015 Not Entered [place] PNEUMOVAX 23 Intramuscular Not Entered 11/11/2016 10/02/2017 33 Influenza 07/07/2017 [facility] Fluzone Quadrivalent [id number] Intramuscular Left Deltoid 07/07/2017 05/08/2015 150 History of Past Illness Name Date of Onset Comments Allergic rhinitis; due to other allergen Hypothyroidism, Acquired Otitis Media, Acute Feb 08 2010 11:02AM [...] Chronic pain syndrome Apr 11 2018 1:14PM Payers Insurance Name Company Name Plan Name Plan Number Policy Number Policy Group Number Start Date BCBS [facility] [id number] N/A [employer] Financial Assistance [employer] Alex 100 PERCENT Tuesday, November 21, 2017 [employer] Alex 100 percent Tuesday, November 21, 2017 [employer] [place] [id number] Friday, October 02, 2009 [employer] [place] [id number] November [facility] Self Insurance Fund *INVALID State Self Insurance [id number] N/A [employer] Self Insurance Fund *INVALID State Self Insurance [id number] N/A [employer] [place] [id number] July [employer] [place] [id number] September History of Encounters Visit Date Visit Type Provider 04/11/2018 Office visit Fredis Rico DO 03/29/2018 [...] 05/20/2016 Office visit Sean Marie MD 05/16/2016 [facility] Marcela Greco MD 04/01/2016 Office visit Sean Marie MD 02/25/2016 Office visit Sean Marie MD 01/16/2016 Office visit Jania Stanley TRAFFIC INSPECTOR 01/07/2016 [facility] Michelle Greco MD 12/31/2015 Office visit Sean Marie MD 12/09/2015 Office visit Miguel A Munoz TRAFFIC INSPECTOR 11/17/2015 Office visit Sean Marie MD 11/03/2015 Office visit Sean Marie MD 10/09/2015 Office visit 10/09/2015 Office visit Sean Marie MD 08/31/2015 Office visit Sean Marie MD 08/25/2015 Office visit Sean Marie MD 06/05/2015 Office visit Sean Marie MD 05/07/2015 Office visit Amaris Gentile TRAFFIC INSPECTOR 05/06/2015 Office visit Kiarra Ramos TRAFFIC INSPECTOR 04/01/2015 Office visit 04/01/2015 Office visit Sean Marie MD 04/01/2015 Hospital Michelle Greco MD 03/26/2015 Office visit Sean Marie MD 03/19/2015 Office visit Sean Marie MD 02/13/2015 Office visit Sean Marie MD 01/26/2015 Office visit Leena Haddad TRAFFIC INSPECTOR 01/12/2015 Office visit Sean Marie MD 11/24/2014 Office visit Kiarra Ramos TRAFFIC INSPECTOR 10/22/2014 Office visit Miguel A Munoz TRAFFIC INSPECTOR 08/22/2014 Office visit Sean Marie MD 08/01/2014 Office visit Sean Marie MD 06/09/2014 Office visit Kiarra Ramos TRAFFIC INSPECTOR 03/14/2014 Office visit Leena Haddad TRAFFIC INSPECTOR 02/27/2014 Office visit Leena Haddad TRAFFIC INSPECTOR 12/02/2013 Office visit Sean Marie MD 11/25/2013 Office visit Sean Marie MD 11/14/2013 Office visit Kiarra Ramos TRAFFIC INSPECTOR 08/21/2013 Office visit Leena Haddad TRAFFIC INSPECTOR 08/09/2013 Office visit Kiarra Ramos TRAFFIC INSPECTOR 06/26/2013 Hospital Michelle Greco MD 06/26/2013 Office visit Sean Marie MD 06/21/2013 Office visit Kiarra Ramos TRAFFIC INSPECTOR 05/31/2013 Office visit Leena Haddad TRAFFIC INSPECTOR 05/10/2013 Office visit Leena Haddad TRAFFIC INSPECTOR 05/03/2013 Office visit Leena Haddad TRAFFIC INSPECTOR 03/27/2013 Office visit Kiarra Richard TRAFFIC INSPECTOR 03/05/2013 Office visit Kiarra Richard TRAFFIC INSPECTOR 02/27/2013 Office visit Kiarra Richard TRAFFIC INSPECTOR 01/08/2013 Office visit Sean Marie MD 10/30/2012 Office visit Sean Marie MD 04/26/2012 Nurse visit Maria Antonia Barakat TRAFFIC INSPECTOR 02/07/2012 Office visit Sean Marie MD 02/07/2012 [facility] Marcela Greco MD 12/13/2011 Office visit Sean Marie MD 11/08/2011 Office visit Sean Marie MD 10/24/2011 Office visit Sean Marie MD 08/05/2011 Office visit Sean Marie MD 07/12/2011 Office visit Kiarra Ramos TRAFFIC INSPECTOR 05/11/2011 Office visit Sean Marie MD 04/19/2011 [...]
--- OUTSIDE RECORDS SUMMARY | 2018-07-18 11:56 | XMS REPORT ---
Author Author Fredis Rico Organization [facility] Address [address] [place] [id number] Care Team Providers Care Plate Painter Name Role Phone Fredis Rico PCP Sean Marie PreferredProvider Allergies and Adverse Reactions Name Reaction Notes Albuterol tachycardia increases heart rate too much Percocet "head crawling" Adhesive Tape Plan of Treatment Planned Activity Comments Planned Date Planned Time Plan/Goal URINALYSIS ROUTINE C&S IF IND 10/09/2017 12:00 AM CBC With Auto Differential 01/08/2013 [...] TAKE ONE TABLET BY MOUTH ONCE DAILY lovastatin 40 mg oral tablet 08/08/2016 TAKE ONE TABLET BY MOUTH ONCE DAILY AT BEDTIME Xopenex HFA 45 mcg/actuation inhalation HFA aerosol inhaler 09/19/2016 inhale 2 puffs (90 mcg) by inhalation route every 6 hours pantoprazole 40 mg oral tablet,delayed release (DR/EC) 12/05/2016 TAKE ONE TABLET BY MOUTH ONCE DAILY duloxetine 60 mg oral capsule,delayed release(DR/EC) 01/30/2017 TAKE ONE CAPSULE BY MOUTH ONCE DAILY furosemide 40 mg oral tablet 03/20/2017 take 1-2 tablets by oral route daily as needed ropinirole 4 mg oral tablet 05/15/2017 10/12/2017 take 1 tablet (4 mg) by oral route 1-3 hours before bedtime for 30 days Flonase Allergy Relief 50 mcg/actuation nasal spray,suspension Singulair oral Zyrtec oral Lamictal 100 mg oral tablet 07/07/2017 take 1 tablet (100 mg) by oral route once daily for 30 days Breo Ellipta 100-25 mcg/dose inhalation blister with device 07/07/2017 inhale 1 puff by inhalation route once daily at the same time each day Spiriva Respimat 2.5 mcg/actuation inhalation mist 07/07/2017 inhale 2 puffs (5 mcg) by inhalation route once daily at the same time each day duloxetine 30 mg oral capsule,delayed release(DR/EC) 07/10/2017 07/05/2018 TAKE ONE CAPSULE BY MOUTH ONCE DAILY oxycodone 15 mg oral tablet 07/31/2017 take 1 tablet (15 mg) by oral route every 4 hours Movantik 25 mg oral tablet 08/09/2017 take 1 tablet (25 mg) by oral route once daily in the morning cyclobenzaprine 10 mg oral tablet 08/09/2017 take 1 tablet by oral route 3 times a day as needed Saxenda 3 mg/0.5 mL (18 mg/3 mL) subcutaneous pen injector 08/09/2017 inject 3 mg by subcutaneous route once daily in the abdomen, thigh, or upper arm Nuvigil 150 mg oral tablet 08/28/2017 12/26/2017 take 1 tablet (150 mg) by oral route once daily in the morning for 30 days Xarelto 20 mg oral tablet take 1 tablet (20 mg) by oral route once daily with the evening meal Xanax 0.25 mg oral tablet 09/11/2017 take 1 tablet by oral route 2 times a day as needed tizanidine 4 mg oral tablet 09/20/2017 take 1 tablet (4 mg) by oral route every 8 hours as needed not to exceed 3 doses in 24 hours for 30 days gabapentin 300 mg oral capsule 09/20/2017 Take one by mouth in the morning and two by mouth at bedtime. Name Start Date Expiration Date SIG Comments [...] oral route once daily for 30 days Ambien 10 mg oral tablet 05/01/2017 08/29/2017 take 1 tablet (10 mg) by oral route once daily at bedtime for 30 days [employer] Thyroid 60 mg oral tablet 07/31/2017 07/31/2017 TAKE ONE TABLET BY MOUTH ONCE DAILY OxyContin 40 mg oral tablet,oral only,ext.rel.12 hr 08/09/2017 09/08/2017 take 1 tablet (40 mg) by oral route every 12 hours for 30 days Toviaz 8 mg oral tablet extended release 24 hr 09/26/2017 09/26/2017 TAKE ONE TABLET BY MOUTH ONCE DAILY Discontinued Name Start Date Discontinued Date SIG [...] by oral route 2 times per day [place] Thyroid 60 mg oral tablet 12/02/2013 take 1 tablet by oral route daily for 30 days [place] Thyroid 60 mg oral tablet 04/07/2014 TAKE ONE TABLET BY MOUTH ONCE DAILY milk thistle oral 11/24/2014 chromium picolinate oral 06/09/2014 Zofran ODT oral 10/09/2015 Dexilant 60 mg oral capsule,biphase delayed releas 07/09/2014 11/24/2014 TAKE ONE CAPSULE BY MOUTH EVERY DAY [place] Thyroid 60 mg oral tablet 08/04/2014 TAKE [...] by oral route once daily at bedtime Coleman 5-325 mg oral tablet 08/22/2014 11/24/2014 take [...] by topical route 2 times per day [place] Thyroid 60 mg oral tablet 07/13/2015 TAKE [...] daily in the morning for 30 days [place] Thyroid 60 mg oral tablet 07/11/2016 08/09/2017 [...] route 2 times per day with food Problem List Description Status Onset Hypothyroidism, Acquired Active Allergic rhinitis; due to other allergen Active Chronic Obstructive Pulmonary Disease Active 10/24/2011 Osteoarthritis Active 11/14/2013 Hyperlipidemia, unspecified Active 06/11/2014 Vital Signs Date Time BP-Sys(mm[Hg] BP-Jocelyn(mm[Hg]) HR(bpm) RR(rpm) Temp WT HT HC BMI BSA BMI Percentile O2 Sat(%) 09/20/2017 11:24:00 AM 150 mmHg 80 mmHg 83 bpm 98.8 F 268.25 lbs 97 % 08/31/2017 2:54:00 PM 140 mmHg 82 mmHg 87 bpm 99 F 276.125 lbs 96 % 08/09/2017 9:19:00 AM 144 mmHg 82 mmHg 34 bpm 83 rpm 97.5 F 274 lbs 65 in 45.60 kg/m2 2.39 m2 97 % 07/07/2017 8:42:00 AM 152 mmHg 76 mmHg 77 bpm 16 rpm 96.7 F 273 lbs 65 in 45.4291 kg/m 2.3831 m 93 % 06/16/2017 10:22:00 AM 142 mmHg 82 mmHg 78 bpm 18 rpm 97.7 F 274 lbs 65 in 45.60 kg/m2 2.39 m2 95 % 05/15/2017 8:51:00 AM 132 mmHg 76 mmHg 81 bpm 14 rpm 97 F 275 lbs 65 in 45.7619 kg/m 2.3918 m 99 % 04/23/2017 2:37:00 PM 126 mmHg 82 mmHg 84 bpm 18 rpm 98 F 280 lbs 65 in 46.59 kg/m2 2.41 m2 91 % 04/14/2017 8:26:00 AM 140 mmHg 82 mmHg 84 bpm 16 rpm 97.8 F 273 lbs 65 in 45.4291 kg/m 2.3831 m 96 % 03/20/2017 2:26:00 PM 122 mmHg 86 mmHg 94 bpm 16 rpm 96.6 F 280.375 lbs 65 in 46.66 kg/m2 2.42 m2 96 % 03/03/2017 5:08:00 PM 122 mmHg 78 mmHg 90 bpm 18 rpm 99.3 F 270 lbs 65 in 44.9299 kg/m 2.3699 m 91 % 01/09/2017 1:43:00 PM 140 mmHg 90 mmHg 88 bpm 16 rpm 98.5 F 274 lbs 65 in 45.60 kg/m2 2.39 m2 98 % 01/02/2017 1:38:00 PM 134 mmHg 86 mmHg 90 bpm 16 rpm 98.9 F 276 lbs 65 in 45.9283 kg/m 2.3961 m 98 % 12/27/2016 3:11:00 PM 132 mmHg 86 mmHg 83 bpm 18 rpm 97.5 F 273 lbs 65 in 45.43 kg/m2 2.38 m2 95 % 2016 8:49:00 AM 140 mmHg 84 mmHg 87 bpm 16 rpm 97.1 F 270 lbs 65 in 44.9299 kg/m 2.3699 m 96 % 09/19/2016 10:12:00 AM 140 mmHg 74 mmHg 86 bpm 18 rpm 97.8 F 263.25 lbs 65 in 43.81 kg/m2 2.34 m2 97 % 07/01/2016 8:25:00 AM 146 mmHg 78 mmHg 93 bpm 20 rpm 97 F 271 lbs 65 in 45.0963 kg/m 2.3743 m 95 % 06/17/2016 10:55:00 AM 140 mmHg 82 mmHg 78 bpm 18 rpm 98.2 F 268 lbs 65 in 44.60 kg/m2 2.36 m2 95 % 05/20/2016 9:29:00 AM 128 mmHg 82 mmHg 85 bpm 17 rpm 97.8 F 269 lbs 65 in 44.7635 kg/m 2.3656 m 95 % 04/01/2016 9:58:00 AM 142 mmHg 88 mmHg 80 bpm 16 rpm 97.9 F 259 lbs 65 in 43.10 kg/m2 2.32 m2 94 % 02/25/2016 3:55:00 PM 152 mmHg 88 mmHg 81 bpm 18 rpm 97.8 F 265.25 lbs 65 in 44.1395 kg/m 2.349 m 93 % 01/16/2016 10:58:00 AM 136 mmHg 76 mmHg 78 bpm 16 rpm 99.1 F 263 lbs 65 in 43.77 kg/m2 2.34 m2 98 % 12/31/2015 2:34:00 PM 144 mmHg 82 mmHg 87 bpm 16 rpm 97.9 F 264 lbs 65 in 43.9314 kg/m 2.3435 m 95 % 12/09/2015 5:15:00 PM 138 mmHg 74 mmHg 89 bpm 98.3 F 262 lbs 65 in 43.60 kg/m2 2.33 m2 95 % 11/17/2015 3:00:00 PM 110 mmHg 68 mmHg 86 bpm 19 rpm 269 lbs 65 in 44.7635 kg/m 2.3656 m 98 % 11/03/2015 8:34:00 AM 136 mmHg 84 mmHg 83 bpm 16 rpm 98.1 F 271 lbs 65 in 45.10 kg/m2 2.37 m2 95 % 10/09/2015 8:47:00 AM 144 mmHg 84 mmHg 82 bpm 18 rpm 97.2 F 268 lbs 65 in 44.5971 kg/m 2.3611 m 95 % 08/31/2015 3:10:00 PM 132 mmHg 76 mmHg 84 bpm 18 rpm 98.3 F 259 lbs 65 in 43.10 kg/m2 2.32 m2 94 % 08/25/2015 10:09:00 AM 110 mmHg 80 mmHg 90 bpm 18 rpm 98 F 265 lbs 65 in 44.0979 kg/m 2.3479 m 90 % 06/05/2015 9:52:00 AM 138 mmHg 82 mmHg 90 bpm 18 rpm 97.8 F 256 lbs 65 in 42.60 kg/m2 2.31 m2 94 % 05/07/2015 6:36:00 PM 132 mmHg 68 mmHg 84 bpm 18 rpm 97 F 257.437 lbs 65 in 42.8394 kg/m 2.3142 m 99 % 05/06/2015 1:29:00 PM 134 mmHg 74 mmHg 71 bpm 18 rpm 97.8 F 257.25 lbs 65 in 42.81 kg/m2 2.31 m2 96 % 04/01/2015 8:38:00 AM 128 mmHg 72 mmHg 73 bpm 18 rpm 98.2 F 252 lbs 65 in 41.9346 kg/m 2.2896 m 93 % 04/01/2015 8:38:00 AM 102 mmHg 68 mmHg 03/26/2015 3:01:00 PM 124 mmHg 76 mmHg 72 bpm 18 rpm 97.8 F 253 lbs 65 in 42.10 kg/m2 2.29 m2 03/19/2015 1:09:00 PM 118 mmHg 72 mmHg 88 bpm 18 rpm 96.8 F 254 lbs 65 in 42.2674 kg/m 2.2987 m 93 % 02/13/2015 8:55:00 AM 152 mmHg 84 mmHg 80 bpm 16 rpm 98.2 F 258 lbs 65 in 42.93 kg/m2 2.32 m2 01/26/2015 3:23:00 PM 121 mmHg 84 mmHg 81 bpm 20 rpm 97.2 F 259 lbs 65 in 43.0994 kg/m 2.3212 m 99 % 01/12/2015 9:01:00 AM 152 mmHg 86 mmHg 88 bpm 18 rpm 98.6 F 273 lbs 65 in 45.43 kg/m2 2.38 m2 11/24/2014 1:54:00 PM 126 mmHg 72 mmHg 88 bpm 18 rpm 98.9 F 260 lbs 65 in 43.2658 kg/m 2.3256 m 98 % 10/22/2014 1:46:00 PM 128 mmHg 80 mmHg 92 bpm 16 rpm 96.8 F 262 lbs 65 in 43.60 kg/m2 2.33 m2 97 % 08/22/2014 8:44:00 AM 156 mmHg 80 mmHg 94 bpm 18 rpm 98.4 F 256 lbs 65 in 42.6002 kg/m 2.3077 m 08/01/2014 10:05:00 AM 156 mmHg 98 mmHg 78 bpm 18 rpm 98.1 F 262 lbs 65 in 43.60 kg/m2 2.33 m2 06/09/2014 2:55:00 PM 138 mmHg 64 mmHg 85 bpm 18 rpm 96.6 F 260.062 lbs 65 in 43.2762 kg/m 2.3259 m 98 % 03/14/2014 8:23:00 AM 124 mmHg 64 mmHg 86 bpm 18 rpm 97.3 F 260.4 lbs 65 in 43.33 kg/m2 2.33 m2 96 % 02/27/2014 2:29:00 PM 122 mmHg 81 mmHg 81 bpm 20 rpm 97.3 F 259.2 lbs 65 in 43.1327 kg/m 2.3221 m 95 % 12/02/2013 9:53:00 AM 152 mmHg 88 mmHg 92 bpm 18 rpm 97 F 263 lbs 65 in 43.77 kg/m2 2.34 m2 11/25/2013 9:20:00 AM 140 mmHg 82 mmHg 92 bpm 18 rpm 97.6 F 264.375 lbs 65 in 43.9939 kg/m 2.3451 m 95 % 11/14/2013 2:23:00 PM 128 mmHg 72 mmHg 92 bpm 18 rpm 98 F 264.125 lbs 65 in 43.95 kg/m2 2.34 m2 97 % 08/21/2013 10:18:00 AM 138 mmHg 88 mmHg 81 bpm 20 rpm 97.9 F 257 lbs 65 in 42.7666 kg/m 2.3122 m 94 % 08/09/2013 10:53:00 AM 136 mmHg 74 mmHg 89 bpm 18 rpm 97.7 F 259.25 lbs 65 in 43.14 kg/m2 2.32 m2 99 % 06/26/2013 8:55:00 AM 122 mmHg 84 mmHg 78 bpm 18 rpm 98 F 264 lbs 65 in 43.9314 kg/m 2.3435 m 06/21/2013 8:48:00 AM 148 mmHg 72 mmHg 68 bpm 18 rpm 98.3 F 265.25 lbs 65 in 44.14 kg/m2 2.35 m2 05/31/2013 8:03:00 AM 140 mmHg 82 mmHg [...] rpm 96.3 F 282 lbs 65 in 46.93 kg/m2 2.42 m2 03/17/2011 8:43:00 AM 152 mmHg 80 mmHg [...] 08/25/2015 12:00 AM Decadron, Per 1 Mg [facility]# [address]-34 Reviewed 08/25/2015 12:00 AM Depo-Medrol, Per 80 Mg [facility]#[address]-55 Reviewed 08/25/2015 12:00 AM Rocephin 1 gram [facility]#7740-3313-02 Reviewed 10/09/2015 12:00 AM COMPLETE CBC W/AUTO DIFF WBC Reviewed 10/09/2015 12:00 AM COMPREHEN METABOLIC PANEL Reviewed 10/09/2015 12:00 AM GLYCOSYLATED HEMOGLOBIN TEST Reviewed 10/09/2015 12:00 AM ASSAY THYROID STIM HORMONE Reviewed 11/03/2015 8:54 AM URINALYSIS AUTO W/O SCOPE Reviewed 11/03/2015 12:[address] HEAD/BRAIN W/O & W/DYE Reviewed 11/17/2015 12:00 AM Rocephin 1 gram [facility]#2961-3448-33 Reviewed 08/05/2011 12:00 AM CHEST X-RAY 2VW FRONTAL&LATL Reviewed 12/09/2015 12:00 AM THER/PROPH/DIAG INJ SC/IM Reviewed 12/09/2015 12:00 AM Rocephin 1 gram [facility]#3670-7705-88 Reviewed 11/08/2011 12:00 AM Decadron Inj. per 1mg-[facility] [id number] Reviewed 11/08/2011 12:00 AM Depo-Medrol 80 Mg [facility] [id number] Reviewed 05/20/2016 12:00 AM COMPLETE CBC W/AUTO [...] US EXAM ABDO BACK WALL COMP Returned 10/30/2012 12:00 AM Depo-Medrol 80 Mg Im/C'pancho Reviewed 10/30/2012 12:00 AM Decadron, Per 1 Mg [facility]# [address]-02 Reviewed 10/30/2012 12:00 AM COMPLETE CBC W/AUTO DIFF WBC Reviewed 10/30/2012 12:00 AM COMPREHEN METABOLIC PANEL Reviewed 10/30/2012 12:00 AM LIPID PANEL Reviewed 10/30/2012 12:00 AM ASSAY THYROID STIM HORMONE Reviewed 01/08/2013 12:00 AM Depo-Medrol 80 Mg Im/C'pancho Reviewed 01/08/2013 12:00 AM Decadron, Per 1 Mg [facility]# [address]-13 Reviewed 01/08/2013 12:00 AM Rocephin 1 gram [facility]#6868-4921-39 Reviewed 01/08/2013 12:00 AM COMPREHEN METABOLIC PANEL Reviewed 01/08/2013 12:00 AM GLYCOSYLATED HEMOGLOBIN TEST Reviewed 01/08/2013 12:00 AM ASSAY THYROID STIM HORMONE Reviewed 01/08/2013 12:00 AM ASSAY OF PARATHORMONE Reviewed 01/08/2013 12:00 AM LIPID PANEL Reviewed 02/27/2013 12:00 AM THER/PROPH/DIAG INJ SC/IM Reviewed 02/27/2013 12:00 AM Decadron, Per 1 Mg [facility]# [address]-07 Reviewed 02/27/2013 12:00 AM Depo-Medrol, Per 80 Mg [facility]#4728-7176-62 Reviewed 03/04/2013 12:00 AM MAMMOGRAM SCREENING Reviewed 03/05/2013 12:00 AM CYTOPATH TBS C/V MANUAL Reviewed 03/05/2013 12:00 AM MAMMOGRAM BOTH BREASTS Reviewed 03/27/2013 12:00 AM THER/PROPH/DIAG INJ SC/IM Reviewed 03/27/2013 12:00 AM Bicillin CR, 1.2 million units [facility]# 57026-549-06 Reviewed 05/10/2013 12:00 AM X-RAY EXAM KNEE [...] 08/09/2013 12:00 AM Decadron, Per 1 Mg [facility]# [address]-05 Reviewed 08/09/2013 12:00 AM Depo-Medrol, Per 80 Mg [facility]#8664-5926-83 Reviewed 08/21/2013 12:00 AM X-RAY EXAM OF [...] Reviewed 03/26/2015 12:00 AM Rocephin 1 gram [facility]#1376-6483-14 Reviewed 04/01/2015 12:00 AM COMPLETE CBC W/AUTO DIFF WBC Reviewed 04/01/2015 12:00 AM COMPREHEN METABOLIC PANEL Reviewed 04/01/2015 12:00 AM ASSAY THYROID STIM HORMONE Reviewed 04/01/2015 12:00 AM CHEST X-RAY 2VW FRONTAL&LATL Reviewed 05/07/2015 12:00 AM THER/PROPH/DIAG INJ SC/IM Reviewed 05/07/2015 12:00 AM Decadron injection Reviewed 05/07/2015 12:00 AM Depo-Medrol 40mg Reviewed 05/11/2011 12:00 AM Depo-Medrol 80 Mg [facility] [id number] Reviewed 05/11/2011 12:00 AM Decadron Inj. per 1mg-[facility] [id number] Reviewed Results Summary Date and Description Results [...] Vis Given Vis Pub CVX Tdap 04/26/2012 [employer] SKB ADACEL [id number] Intramuscular Left Arm 04/26/2012 08/19/2008 115 Tdap 03/14/2014 [id number] SKB BOOSTRIX [id number] Intramuscular Left Deltoid 03/14/2014 02/07/2013 115 Influenza 06/22/2015 [employer] NOV Fluvirin [id number] Intramuscular Left Deltoid 06/23/2015 05/08/2015 140 Pneumococcal 09/16/2015 Not Entered NE Pneumovax 23 Intramuscular Not Entered 11/11/2016 10/02/2017 33 Influenza 07/07/2017 [employer] pasteur PMC Fluzone Quadrivalent [id number] Intramuscular Left Deltoid 07/07/2017 05/08/2015 150 History [...] lung Bronchitis, Acute Jul 12 2011 8:56AM Bronchitis, Acute Aug 05 2011 9:17AM Chronic [...] 2017 11:28AM Dysuria Oct 09 2017 10:40AM Payers Insurance Name Company Name Plan Name Plan Number Policy Number Policy Group Number Start Date [employer] [place] [id number] September [employer] Alex 40 percent clinic October [employer] [place] [id number] Friday, October 02, 2009 [employer] [place] [id number] November [employer] Self Insurance Fund *[place] Self Insurance [id number] N/A [facility] Self Insurance Fund *[place] Self Insurance [id number] N/A [employer] [place] [id number] July History of Encounters Visit Date Visit Type Provider 09/20/2017 Office visit Fredis Rico DO 08/31/2017 Office visit Fredis Rico DO 08/09/2017 Office visit Sean Marie MD 07/07/2017 Office visit Sean Marie MD 06/16/2017 Office visit Sean Marie MD 05/15/2017 Office visit Sean Marie MD 04/23/2017 Office visit Aurora Martin ENGINEERING INTERN 04/14/2017 Office visit Sean Marie MD 03/20/2017 Office visit Sean Marie MD 03/03/2017 Office visit Aurora Martin ENGINEERING INTERN 01/09/2017 Office visit Sean Marie MD 01/02/2017 [...] Marie MD 01/16/2016 Office visit Jania Stanley ENGINEERING INTERN 01/07/2016 [facility] Greco MD 12/31/2015 Office visit Sean Marie MD 12/09/2015 Office visit Miguel A Munoz ENGINEERING INTERN 11/17/2015 Office visit Sean Marie MD 11/03/2015 Office visit Sean Marie MD 10/09/2015 Office visit 10/09/2015 Office visit Sean Marie MD 08/31/2015 Office visit Sean Marie MD 08/25/2015 Office visit Sean Marie MD 06/05/2015 Office visit Sean Marie MD 05/07/2015 Office visit Amaris Gentile ENGINEERING INTERN 05/06/2015 Office visit Kiarra Ramos ENGINEERING INTERN 04/01/2015 Office visit 04/01/2015 Office visit Sean Marie MD 04/01/2015 [facility] MD 03/26/2015 Office visit Sean Marie MD 03/19/2015 Office visit Sean Marie MD 02/13/2015 Office visit Sean Marie MD 01/26/2015 Office visit Leena Haddad ENGINEERING INTERN 01/12/2015 Office visit Sean Marie MD 11/24/2014 Office visit Kiarra Ramos ENGINEERING INTERN 10/22/2014 Office visit Miguel A Munoz ENGINEERING INTERN 08/22/2014 Office visit Sean Marie MD 08/01/2014 Office visit Sean Marie MD 06/09/2014 Office visit Kiarra Ramos ENGINEERING INTERN 03/14/2014 Office visit Leena Haddad ENGINEERING INTERN 02/27/2014 Office visit Leena Haddad ENGINEERING INTERN 12/02/2013 Office visit Sean Marie MD 11/25/2013 Office visit Sean Marie MD 11/14/2013 Office visit Kiarra Ramos ENGINEERING INTERN 08/21/2013 Office visit Leena Mona Boo ENGINEERING INTERN 08/09/2013 Office visit Kiarra Ramos ENGINEERING INTERN 06/26/2013 [facility] Gre[facility] MD 06/26/2013 Office visit Sean Marie MD 06/21/2013 Office visit Kiarra Ramos ENGINEERING INTERN 05/31/2013 Office visit Leena Mona Boo ENGINEERING INTERN 05/10/2013 Office visit Leena Dunn Boo ENGINEERING INTERN 05/03/2013 Office visit Leena Haddad ENGINEERING INTERN 03/27/2013 Office visit Kiarra Ramos ENGINEERING INTERN 03/05/2013 Office visit Kiarra Ramos ENGINEERING INTERN 02/27/2013 Office visit Kiarra Ramos ENGINEERING INTERN 01/08/2013 Office visit Sean Marie MD 10/30/2012 Office visit Sean Marie MD 04/26/2012 Nurse visit Maria Antonia Barakat ENGINEERING INTERN 02/07/2012 Office visit Sean Marie MD 02/07/2012 Hospital Michelle Greco MD 12/13/2011 Office visit Sean Marie MD 11/08/2011 Office visit Sean Marie MD 10/24/2011 Office visit Sean Marie MD 08/05/2011 Office visit Sean Marie MD 07/12/2011 Office visit Kiarra Ramos ENGINEERING INTERN 05/11/2011 Office visit Sean Marie MD 04/19/2011 [...]
[2018-07-18] MEDS ORDERED: NS IV 500 ML 500 ML ONE (11:58)
--- OUTSIDE RECORDS SUMMARY | 2018-07-18 11:58 | XMS REPORT ---
Author Author Sean Marie [facility] Address [address] [place], [place] [id number] Care Team Providers Care Software Systems Engineer Name Role Phone Sean Marie PCP Unavailable Allergies and Adverse Reactions Name Reaction Notes Albuterol tachycardia increases heart rate too much Percocet "head crawling" Plan of Treatment Planned Activity Comments Planned Date Planned Time Plan/Goal COMPLETE CBC W/AUTO DIFF WBC 01/08/2013 12:00 AM ELECTROCARDIOGRAM COMPLETE 06/26/2013 12:00 AM ELECTROCARDIOGRAM COMPLETE 04/01/2015 12:00 AM Medications Active Name Start Date Estimated Completion Date SIG Comments aspirin 81 mg oral tablet,delayed release (DR/EC) take 1 tablet (81 mg) by oral route once daily pravastatin 20 mg oral tablet 02/03/2014 TAKE ONE TABLET BY MOUTH EVERY DAY AT BEDTIME Paragon Thyroid 60 mg oral tablet 04/07/2014 TAKE ONE TABLET BY MOUTH ONCE DAILY Zofran ODT oral lovastatin 40 mg oral tablet 06/12/2014 take 1 tablet by oral route daily Paragon Thyroid 60 mg oral tablet 08/04/2014 TAKE ONE TABLET BY MOUTH ONCE DAILY Xanax 0.25 mg oral tablet may take 1 tablet as needed daily baclofen 10 mg oral tablet 08/22/2014 take 1 tablet by oral route 3 times a day as needed lovastatin 40 mg oral tablet 10/06/2014 TAKE ONE TABLET BY MOUTH ONCE DAILY AT BEDTIME lovastatin 40 mg oral tablet 11/10/2014 TAKE ONE TABLET BY MOUTH ONCE DAILY AT BEDTIME Abilify 2 mg oral tablet Xopenex HFA 45 mcg/actuation inhalation HFA aerosol inhaler 01/12/2015 inhale 2 puffs (90 mcg) by inhalation route every 6 hours Spiriva Respimat 2.5 mcg/actuation inhalation mist 01/12/2015 inhale 2 puffs (5 mcg) by inhalation route once daily at the same time each day lovastatin 40 mg oral tablet 02/03/2015 TAKE ONE TABLET BY MOUTH ONCE DAILY AT BEDTIME phentermine 37.5 mg oral tablet take 1 tablet in morning Protonix 40 mg oral tablet,delayed release (DR/EC) 03/19/2015 06/11/2016 take 1 tablet (40 mg) by oral route once daily for 90 days Requip 2 mg oral tablet 03/19/2015 03/13/2016 take 1 tablet by mouth at bedtime. for 90 days Garcinia Cambogia 200-500 mcg-mg oral tablet Lyrica 75 mg oral capsule 04/15/2015 take 1 capsule (75 mg) by oral route 2 times per day trazodone 150 mg oral tablet take 1/2 tablet at bedtime triamcinolone acetonide 0.1 % topical cream 05/06/2015 apply a thin layer to the affected area(s) by topical route 2 times per day lovastatin 40 mg oral tablet 05/11/2015 TAKE ONE TABLET BY MOUTH ONCE DAILY AT BEDTIME Abilify 5 mg oral tablet 06/22/2015 TAKE ONE TABLET BY MOUTH ONCE DAILY Paragon Thyroid 60 mg oral tablet 07/13/2015 TAKE ONE TABLET BY MOUTH ONCE DAILY ropinirole 2 mg oral tablet 07/13/2015 TAKE ONE TABLET BY MOUTH ONCE DAILY AT BEDTIME Xopenex 1.25 mg/3 mL inhalation solution for nebulization 08/21/2015 inhale 3 milliliters (1.25 mg) by nebulization route 3 times per day Nuvigil 150 mg oral tablet take 1 tablet (150 mg) by oral route once daily in the morning promethazine-codeine 6.25-10 mg/5 mL oral syrup 08/25/2015 take 5 milliliters by oral route every 6 hours as needed, not to exceed 30 mL in 24 hours Brintellix 10 mg oral tablet 08/25/2015 09/24/2015 take 1 tablet (10 mg) by oral route once daily at the same time each day for 30 days Toviaz 8 mg oral tablet extended release 24 hr 08/25/2015 11/17/2016 take 1 tablet (8 mg) by oral route once daily for 90 days Name Start Date Expiration Date SIG [...] once daily at bedtime for 30 days Paragon Thyroid 60 mg oral tablet 12/02/2013 04/01/2014 take 1 tablet by oral route daily for 30 days Naprosyn 500 mg oral [...] route every 12 hours for 14 days Levaquin 500 mg oral tablet 04/01/2015 04/08/2015 take 1 tablet by oral route daily for 7 days Skelaxin 800 mg oral tablet 06/05/2015 07/05/2015 take 1 tablet (800 mg) by oral route 3 times per day as needed for 30 days Discontinued Name Start Date [...] tablet 02/27/2013 take 1 tab @ HS triamcinolone acetonide 0.1 % topical cream 07/12/2011 05/03/2013 apply a thin layer to the affected area(s) by topical route 2 times per day Alen BATRES Cough & Chest 10-200 mg/5 mL oral liquid 07/12/2011 [...] by oral route 2 times per day milk thistle oral 11/24/2014 chromium picolinate oral 06/09/2014 Dexilant 60 mg oral capsule,biphase delayed releas 07/09/2014 11/24/2014 TAKE ONE CAPSULE BY MOUTH EVERY DAY Abilify 5 mg oral tablet 11/24/2014 take [...] by inhalation route 2 times a day Weott 5-325 mg oral tablet 08/22/2014 11/24/2014 take 1 tablet by oral route every 6 hours as needed for pain trazodone 150 mg oral tablet 11/17/2014 04/01/2015 TAKE ONE TABLET BY MOUTH EVERY DAY AT BEDTIME Dexilant 60 mg oral capsule,biphase delayed releas 03/05/2015 take 1 capsule (60 mg) by oral route once daily Problem List Description Status Onset Hypothyroidism, Acquired Active Allergic rhinitis; due to other allergen Active Chronic Obstructive Pulmonary Disease Active 10/24/2011 Osteoarthritis Active 11/14/2013 Hyperlipidemia, unspecified Active 06/11/2014 Vital Signs Date Time BP-Sys(mm[Hg] BP-Jocelyn(mm[Hg]) HR(bpm) RR(rpm) Temp WT HT HC BMI BSA BMI Percentile O2 Sat(%) 08/25/2015 10:09:00 AM 110 mmHg 80 mmHg [...] rpm 97.6 F 267 lbs 65 in 44.4307 kg/m 2.3567 m 98 % 05/03/2013 11:36:00 AM 131 mmHg 72 mmHg 87 bpm 20 rpm 98.5 F 267 lbs 65 in 44.43 kg/m2 2.36 m2 96 % 03/27/2013 8:08:00 AM 138 mmHg 78 mmHg 76 bpm 18 rpm 98.2 F 262.125 lbs 65 in 43.6194 kg/m 2.3351 m 97 % 03/05/2013 11:10:00 AM 140 mmHg 68 mmHg 70 bpm 18 rpm 98 F 266.125 lbs 65 in 44.29 kg/m2 2.35 m2 02/27/2013 11:02:00 AM 142 mmHg 74 mmHg 74 bpm 18 rpm 98.1 F 267.5 lbs 65 in 44.5139 kg/m 2.3589 m 01/08/2013 10:50:00 AM 142 mmHg 82 mmHg 88 bpm 18 rpm 98.6 F 268 lbs 65 in 44.60 kg/m2 2.36 m2 10/30/2012 1:48:00 PM 148 mmHg 80 mmHg 88 bpm 20 rpm 97.6 F 274 lbs 65 in 45.5955 kg/m 2.3874 m 02/07/2012 10:33:00 AM 126 mmHg 84 mmHg 80 bpm 20 rpm 98.6 F 284 lbs 65 in 47.26 kg/m2 2.43 m2 12/13/2011 1:59:00 PM 128 mmHg 72 mmHg 82 bpm 18 rpm 97.8 F 278 lbs 65 in 46.2611 kg/m 2.4048 m 11/08/2011 8:50:00 AM 146 mmHg 80 mmHg 84 bpm 18 rpm 97.5 F 285 lbs 65 in 47.43 kg/m2 2.43 m2 10/24/2011 9:12:00 AM 160 mmHg 92 mmHg 80 bpm 20 rpm 99 F 280 lbs 65 in 46.594 kg/m 2.4134 m 08/05/2011 9:17:00 AM 156 mmHg 88 mmHg 80 bpm 20 rpm 98.6 F 280 lbs 65 in 46.59 kg/m2 2.41 m2 07/12/2011 8:58:00 AM 142 mmHg 70 mmHg 68 bpm 20 rpm 97 F 280 lbs 65 in 46.594 kg/m 2.4134 m 05/11/2011 8:58:00 AM 146 mmHg 88 mmHg [...] of Procedures Date Ordered Description Order Status 08/05/2011 12:00 AM CHEST X-RAY 2VW FRONTAL&LATL Reviewed 12/13/2011 12:00 AM X-RAY EXAM OF FINGER(S) Reviewed 02/07/2012 12:00 AM ASSAY THYROID STIM HORMONE Reviewed 02/07/2012 12:00 AM BREATHING CAPACITY TEST Reviewed 02/07/2012 12:00 AM ELECTROCARDIOGRAM COMPLETE Reviewed 02/07/2012 12:00 AM ASSAY OF TOTAL THYROXINE Reviewed 04/26/2012 12:00 AM IMMUNIZATION ADMIN Reviewed 04/26/2012 12:00 AM TDAP VACCINE 7 YRS/> IM Reviewed 10/30/2012 12:00 AM Depo-Medrol 80 Mg Im/C'pancho Reviewed 10/30/2012 12:00 AM Decadron, Per 1 Mg [facility] [place] [id number] Reviewed 10/30/2012 12:00 AM COMPLETE CBC W/AUTO DIFF WBC Reviewed 10/30/2012 12:00 AM COMPREHEN METABOLIC PANEL Reviewed 10/30/2012 12:00 AM LIPID PANEL Reviewed 10/30/2012 12:00 AM ASSAY THYROID STIM HORMONE Reviewed 01/08/2013 12:00 AM Depo-Medrol 80 Mg Im/C'pancho Reviewed 01/08/2013 12:00 AM Decadron, Per 1 Mg [facility] [place] [id number] Reviewed 01/08/2013 12:00 AM Rocephin 1 gram [facility] [place]2086-0847-87 Reviewed 01/08/2013 12:00 AM COMPREHEN METABOLIC PANEL Reviewed 01/08/2013 12:00 AM GLYCOSYLATED HEMOGLOBIN TEST Reviewed 01/08/2013 12:00 AM ASSAY THYROID STIM HORMONE Reviewed 01/08/2013 12:00 AM ASSAY OF PARATHORMONE Reviewed 01/08/2013 12:00 AM LIPID PANEL Reviewed 02/27/2013 12:00 AM THER/PROPH/DIAG INJ SC/IM Reviewed 02/27/2013 12:00 AM Decadron, Per 1 Mg [facility] [place] [address]-20 Reviewed 02/27/2013 12:00 AM Depo-Medrol, Per 80 Mg [facility] [place]8047-[address]-79 Reviewed 03/04/2013 12:00 AM MAMMOGRAM SCREENING Returned 03/05/2013 12:00 AM CYTOPATH TBS C/V MANUAL Returned 03/05/2013 12:00 AM MAMMOGRAM BOTH BREASTS Returned 03/27/2013 12:00 AM THER/PROPH/DIAG INJ SC/IM Reviewed 03/27/2013 12:00 AM Bicillin CR, 1.2 million units [facility] [place]# [address]8718-727-01 Reviewed 05/10/2013 12:00 AM X-RAY EXAM KNEE 4 OR MORE Returned 05/10/2013 12:00 AM Physical Therapy Consult Reviewed 06/26/2013 12:00 AM METABOLIC PANEL TOTAL CA Reviewed 06/26/2013 12:00 AM COMPLETE CBC W/AUTO DIFF WBC Reviewed 02/08/2010 12:00 AM COMPLETE CBC W/AUTO DIFF WBC Reviewed 02/08/2010 12:00 AM COMPREHEN METABOLIC PANEL Reviewed 02/08/2010 12:00 AM LIPID PANEL Reviewed 08/09/2013 12:00 AM THER/PROPH/DIAG INJ SC/IM Reviewed 08/09/2013 12:00 AM Decadron, Per 1 Mg [facility] [place] [address]-88 Reviewed 08/09/2013 12:00 AM Depo-Medrol, Per 80 Mg [facility] [place]6085-7989-17 Reviewed 08/21/2013 12:00 AM X-RAY EXAM OF HAND Returned 11/14/2013 12:00 AM COMPREHEN METABOLIC PANEL Returned 11/14/2013 12:00 AM LIPID PANEL Returned 11/14/2013 12:00 AM ANTINUCLEAR ANTIBODIES Returned 11/14/2013 12:00 AM RHEUMATOID FACTOR TEST QUAL Returned 11/14/2013 12:00 AM C-REACTIVE PROTEIN Returned 11/14/2013 12:00 AM RBC SED RATE AUTOMATED Returned 11/25/2013 12:00 AM X-RAY EXAM OF FOOT Reviewed 02/27/2014 12:00 AM CHEST X-RAY 2VW FRONTAL&LATL Returned 02/27/2014 12:00 AM COMPLETE CBC W/AUTO DIFF WBC Returned 02/27/2014 12:00 AM COMPREHEN METABOLIC PANEL Returned 02/27/2014 12:00 AM Culture-Sputum Returned 02/27/2014 12:00 AM MYCOPLASMA ANTIBODY Returned 05/11/2010 12:00 AM COMPLETE CBC W/AUTO DIFF [...] SC/IM Reviewed 06/09/2014 12:00 AM LIPID PANEL Returned 11/24/2014 12:00 AM RADEX HAND MINIMUM 3 VIEWS Returned 01/12/2015 12:00 AM BREATHING CAPACITY TEST Reviewed 03/03/2011 12:00 AM COMPLETE CBC W/AUTO DIFF WBC Reviewed 03/03/2011 12:00 AM COMPREHEN METABOLIC PANEL Reviewed 03/03/2011 12:00 AM LIPID PANEL Reviewed 03/03/2011 12:00 AM ASSAY THYROID STIM HORMONE Reviewed 03/26/2015 12:00 AM Rocephin 1 gram [facility] [place][id number] Reviewed 04/01/2015 12:00 AM COMPLETE CBC W/AUTO DIFF WBC Reviewed 04/01/2015 12:00 AM COMPREHEN METABOLIC PANEL Reviewed 04/01/2015 12:00 AM ASSAY THYROID STIM HORMONE Reviewed 04/01/2015 12:00 AM CHEST X-RAY 2VW FRONTAL&LATL Reviewed 05/07/2015 12:00 AM THER/PROPH/DIAG INJ SC/IM Reviewed 05/07/2015 12:00 AM Decadron injection Reviewed 05/07/2015 12:00 AM Depo-Medrol 40mg Reviewed 05/11/2011 12:00 AM Depo-Medrol 80 Mg [facility] [place] [id number] Reviewed 05/11/2011 12:00 AM Decadron Inj. per 1mg-[facility] [id number] Reviewed Results Summary Data and Description Results 05/12/2010 5:55 AM TRIGLYCERIDES 397.0 mg/dLCHOLESTEROL 190.0 mg/dLHDL 39.0 mg/ dLLDL (CALC) 72.0 mg/dLTSH 2.270 uIU/mLVITAMIN B12 493.0 pg/mLGLUCOSE 98.0 mg/ dLSODIUM 142.0 mmol/LPOTASSIUM 4.40 mmol/LCHLORIDE 106.0 mmol/LCO2 29.0 mmol/ LBUN 19.0 mg/dLCREATININE 0.70 mg/dLSGOT/AST 21.0 IU/LSGPT/ALT 25.0 IU/LALK PHOS 81.0 IU/LTOTAL PROTEIN 6.90 g/dLALBUMIN 3.80 g/dLTOTAL BILI 0.30 mg/ dLCALCIUM 10.0 mg/dLeGFR >60 mL/min/1.73 m2WBC 6.0 RBC 4.98 HGB 13.60 g/dLHCT 41.50 %MCV 83.0 fLMCH 27.30 pgMCHC 32.80 g/dLRDW CV 13.90 %MPV 11.20 fLPLT 226 % NEUT 56.60 %%LYMP 31.40 %%MONO 9.20 %%EOS 2.30 %%BASO 0.50 %#NEUT 3.38 #LYMP 1.88 #MONO 0.55 #EOS 0.14 #BASO 0.03 02/07/2012 11:20 AM TSH 2.440 uIU/mLT4 8.60 ug/dL 10/31/2012 8:25 AM WBC 8.4 RBC 4.86 HGB 13.40 g/dLHCT 42.0 %MCV 86.0 fLMCH 27.60 pgMCHC 31.90 g/dLRDW CV 14.0 %MPV 11.20 fLPLT 245 %NEUT 77.50 %%LYMP 14.80 %%MONO 7.40 %%EOS 0.10 %%BASO 0.20 %#NEUT 6.49 #LYMP 1.24 #MONO 0.62 #EOS 0.01 #BASO 0.02 TRIGLYCERIDES 231.0 mg/dLCHOLESTEROL 229.0 mg/dLHDL 47.0 mg/ dLLDL (CALC) 136.0 mg/dLGLUCOSE 109.0 mg/dLSODIUM 142.0 mmol/LPOTASSIUM 4.10 mmol/LCHLORIDE 106.0 mmol/LCO2 27.0 mmol/LBUN 16.0 mg/dLCREATININE 0.80 mg/ dLSGOT/AST 20.0 IU/LSGPT/ALT 26.0 IU/LALK PHOS 94.0 IU/LTOTAL PROTEIN 7.90 g/ dLALBUMIN 4.40 g/dLTOTAL BILI 0.30 mg/dLCALCIUM 10.90 mg/dLeGFR 60 TSH 0.960 uIU /mL 02/15/2013 8:55 AM WBC 5.1 RBC 4.78 HGB 12.90 g/dLHCT 41.40 %MCV 87.0 fLMCH 27.0 pgMCHC 31.20 g/dLRDW CV 14.90 %MPV 11.10 fLPLT 207 %NEUT 63.90 %%LYMP 25.40 %%MONO 8.0 %%EOS 2.30 %%BASO 0.40 %#NEUT 3.26 #LYMP 1.30 #MONO 0.41 #EOS 0.12 #BASO 0.02 TRIGLYCERIDES 196.0 mg/dLCHOLESTEROL 213.0 mg/dLHDL 43.0 mg/ dLLDL (CALC) 131.0 mg/dLGLUCOSE 107.0 mg/dLSODIUM 145.0 mmol/LPOTASSIUM 4.30 mmol/LCHLORIDE 106.0 mmol/LCO2 29.0 mmol/LBUN 17.0 mg/dLCREATININE 0.80 mg/ dLSGOT/AST 20.0 IU/LSGPT/ALT 26.0 IU/LALK PHOS 82.0 IU/LTOTAL PROTEIN 7.10 g/ dLALBUMIN 3.90 g/dLTOTAL BILI 0.30 mg/dLCALCIUM 10.30 mg/dLeGFR 60 TSH 1.230 uIU /mL 06/26/2013 9:40 AM WBC 4.7 RBC 4.88 HGB 13.40 g/dLHCT 41.50 %MCV 85.0 fLMCH 27.50 pgMCHC 32.30 g/dLRDW CV 14.30 %MPV 11.0 fLPLT 209 %NEUT 54.20 %%LYMP 31.50 %%MONO 10.50 %%EOS 3.40 %%BASO 0.40 %#NEUT 2.53 #LYMP 1.47 #MONO 0.49 # EOS 0.16 #BASO 0.02 GLUCOSE 113.0 mg/dLSODIUM 146.0 mmol/LPOTASSIUM 5.30 mmol/ LCHLORIDE 106.0 mmol/LCO2 29.0 mmol/LBUN 14.0 mg/dLCREATININE 0.80 mg/dLCALCIUM 10.20 mg/dLeGFR >60 mL/min/1.73 m2 11/19/2013 8:10 AM RA Factor 16.30 IU/mLSEDRATE 29.0 mm/hrGLUCOSE 105.0 mg/ dLSODIUM 143.0 mmol/LPOTASSIUM 4.70 mmol/LCHLORIDE 105.0 mmol/LCO2 28.0 mmol/ LBUN 13.0 mg/dLCREATININE 0.80 mg/dLSGOT/AST 26.0 IU/LSGPT/ALT 27.0 IU/LALK PHOS 109.0 IU/LTOTAL PROTEIN 7.50 g/dLALBUMIN 4.20 g/dLTOTAL BILI 0.40 mg/ dLCALCIUM 9.80 mg/dLeGFR >60 mL/min/1.73 [id number] 250.0 mg/dLCHOLESTEROL 180.0 mg/dLHDL 39.0 mg/dLLDL (CALC) 91.0 mg/Leanna REACTIVE PROTEIN 15.0 mg/BREONNA Direct Negative 02/27/2014 3:24 PM WBC 8.7 RBC 5.12 HGB 13.90 g/dLHCT 42.50 %MCV 83.0 fLMCH 27.10 pgMCHC 32.70 g/dLRDW CV 13.60 %MPV 11.10 fLPLT 237 %NEUT 67.70 %%LYMP 21.70 %%MONO 8.30 %%EOS 1.80 %%BASO 0.50 %#NEUT 5.88 #LYMP 1.89 #MONO 0.72 #EOS 0.16 #BASO 0.04 GLUCOSE 99.0 mg/dLSODIUM 143.0 mmol/LPOTASSIUM 4.10 mmol/ LCHLORIDE 103.0 mmol/LCO2 29.0 mmol/LBUN 14.0 mg/dLCREATININE 0.80 mg/dLSGOT/ AST 16.0 IU/LSGPT/ALT 15.0 IU/LALK PHOS 104.0 IU/LTOTAL PROTEIN 7.20 g/ dLALBUMIN 3.90 g/dLTOTAL BILI 0.40 mg/dLCALCIUM 9.90 mg/dLeGFR 60 M pneumoniae IgG Abs 1201.0 U/mLM pneumoniae IgM Abs <770 U/mL 06/11/2014 5:23 AM TRIGLYCERIDES 244.0 mg/dLCHOLESTEROL 165.0 mg/dLHDL 40.0 mg/ dLLDL (CALC) 76.0 mg/dL 04/01/2015 9:55 AM GLUCOSE 100.0 mg/dLSODIUM 144.0 mmol/LPOTASSIUM 4.50 mmol/ LCHLORIDE 105.0 mmol/LCO2 29.0 mmol/LBUN 13.0 mg/dLCREATININE 0.90 mg/dLSGOT/ AST 20.0 IU/LSGPT/ALT 17.0 IU/LALK PHOS 76.0 IU/LTOTAL PROTEIN 7.10 g/dLALBUMIN 4.10 g/dLTOTAL BILI 0.40 mg/dLCALCIUM 10.40 mg/dLeGFR >60 mL/min/1.73 m2WBC 5.0 RBC 4.94 HGB 13.40 g/dLHCT 42.40 %MCV 86.0 fLMCH 27.10 pgMCHC 31.60 g/dLRDW CV 13.70 %MPV 10.60 fLPLT 224 %NEUT 59.60 %%LYMP 28.60 %%MONO 8.20 %%EOS 3.0 %% BASO 0.60 %#NEUT 2.98 #LYMP 1.43 #MONO 0.41 #EOS 0.15 #BASO 0.03 TSH 1.210 uIU/ mL History Of Immunizations Name Date Admin Mfg Name Mfg Code Trade Name Lot# Route Inj Vis Given Vis Pub CVX Tdap 04/26/2012 [employer]fly LISETTE ADACEL [id number] Intramuscular Left Arm 04/26/2012 08/19/2008 115 Tdap 03/14/2014 [employer]fly SKB BOOSTRIX [id number] Intramuscular Left Deltoid 03/14/2014 02/07/2013 115 Influenza 06/22/2015 [employer]. NOV Fluvirin [id number] Intramuscular Left Deltoid 06/23/2015 05/08/2015 140 History of Past Illness Name Date of [...] 2011 8:57AM Edema May 11 2011 8:57AM Bronchitis, Acute Jul 12 2011 8:56AM Bronchitis, [...] urine in female Aug 25 2015 10:13AM Payers Insurance Name Company Name Plan Name Plan Number Policy Number Policy Group Number Start Date [employer] [place] [id number] September [facility] Financial Assistance [facility] Financial Alex 40 percent clinic October [employer] [place] [id number] Tuesday, August 30, 2011 [employer] [place] [id number] November State Self Insurance Fund *INVALID State Self Insurance [id number] N /A [facility] Self Insurance Fund *INVALID State Self Insurance [id number] N /A [employer] [place] [id number] July History of Encounters Visit Date Visit Type Provider 08/25/2015 Office visit Sean Marie MD 06/05/2015 Office visit Sean Marie MD 05/07/2015 Office visit Amaris Gentile [employer] UPHOLSTERER 05/06/2015 Office visit Kiarra Ramos [employer] SEAT UPHOLSTERER 04/01/2015 Office visit Sean Marie MD 04/01/2015 [facility] Michelle Greco MD 03/26/2015 Office visit Sean Marie MD 03/19/2015 Office visit Sean Marie MD 02/13/2015 Office visit Sean Marie MD 01/26/2015 Office visit Leena Haddad CAR SEAT UPHOLSTERER 01/12/2015 Office visit Sean Marie MD 11/24/2014 Office visit Kiarra Ramos CAR SEAT UPHOLSTERER 10/22/2014 Office visit Miguel A Munoz CAR SEAT UPHOLSTERER 08/22/2014 Office visit Sean Marie MD 08/01/2014 Office visit Sean Marie MD 06/09/2014 Office visit Kiarra Ramos CAR SEAT UPHOLSTERER 03/14/2014 Office visit Leena Haddad CAR SEAT UPHOLSTERER 02/27/2014 Office visit Leena Haddad CAR SEAT UPHOLSTERER 12/02/2013 Office visit Sean Marie MD 11/25/2013 Office visit Sean Marie MD 11/14/2013 Office visit Kiarra Ramos CAR SEAT UPHOLSTERER 08/21/2013 Office visit Leena NEd Haddad CAR SEAT UPHOLSTERER 08/09/2013 Office visit Kiarra Richard CAR SEAT UPHOLSTERER 06/26/2013 Hospital Michelle Greco MD 06/26/2013 Office visit Sean Marie MD 06/21/2013 Office visit Kiarra Richard CAR SEAT UPHOLSTERER 05/31/2013 Office visit Leena RodriguezEd Boo CAR SEAT UPHOLSTERER 05/10/2013 Office visit Leenaallison Haddad CAR SEAT UPHOLSTERER 05/03/2013 Office visit Leena Haddad CAR SEAT UPHOLSTERER 03/27/2013 Office visit Kiarra Ramos CAR SEAT UPHOLSTERER 03/05/2013 Office visit Kiarra Ramos CAR SEAT UPHOLSTERER 02/27/2013 Office visit Kiarra Ramos CAR SEAT UPHOLSTERER 01/08/2013 Office visit Sean Marie MD 10/30/2012 Office visit Sean Marie MD 04/26/2012 Nurse visit Maria Antonia Barakat CAR SEAT UPHOLSTERER 02/07/2012 Office visit Sean Marie MD 02/07/2012 [facility] Michelle Greco MD 12/13/2011 Office visit Sean Marie MD 11/08/2011 Office visit Sean Marie MD 10/24/2011 Office visit Sean Marie MD 08/05/2011 Office visit Sean Marie MD 07/12/2011 Office visit Kiarra Ramos CAR SEAT UPHOLSTERER 05/11/2011 Office visit Sean Marie MD 04/19/2011 [...]
--- OUTSIDE RECORDS SUMMARY | 2018-07-18 11:59 | XMS REPORT ---
Author Author Sean Marie [facility] Address [address] [place], [place] [id number] Care Team Providers Care Glassware Maker Name Role Phone Sean Marie PCP Unavailable [...] TABLET BY MOUTH EVERY DAY AT BEDTIME [facility] Thyroid 60 mg oral tablet 04/07/2014 TAKE ONE TABLET BY MOUTH ONCE DAILY lovastatin 40 mg oral tablet 06/12/2014 take 1 tablet by oral route daily [facility] Thyroid 60 mg oral tablet 08/04/2014 TAKE [...] TABLET BY MOUTH ONCE DAILY AT BEDTIME Protonix 40 mg oral tablet,delayed release (DR/EC) 03/19/2015 06/11/2016 take 1 tablet (40 mg) by oral route once daily for 90 days trazodone 150 mg oral tablet take 1/2 tablet at bedtime lovastatin 40 mg oral tablet 05/11/2015 TAKE ONE TABLET BY MOUTH ONCE DAILY AT BEDTIME Abilify 5 mg oral tablet 06/22/2015 TAKE ONE TABLET BY MOUTH ONCE DAILY [facility] Thyroid 60 mg oral tablet 07/13/2015 TAKE [...] oral route once daily in the morning Toviaz 8 mg oral tablet extended release 24 hr 08/25/2015 11/17/2016 take 1 tablet (8 mg) by oral route once daily for 90 days trazodone 150 mg oral tablet 08/31/2015 TAKE ONE TABLET BY MOUTH ONCE DAILY AT BEDTIME furosemide 40 mg oral tablet 09/21/2015 TAKE ONE TABLET BY MOUTH ONCE DAILY IN THE MORNING NEEDED Brovana 15 mcg/2 mL inhalation solution for nebulization 10/09/2015 inhale 2 milliliters (15 mcg) by inhalation route 2 times per day furosemide 40 mg oral tablet 10/19/2015 TAKE ONE TABLET BY MOUTH ONCE DAILY IN THE MORNING NEEDED lovastatin 40 mg oral tablet 11/02/2015 TAKE ONE TABLET BY MOUTH ONCE DAILY AT BEDTIME Name Start Date Expiration Date [...] once daily at bedtime for 30 days [facility] Thyroid 60 mg oral tablet 12/02/2013 04/01/2014 [...] per day as needed for 30 days Brintellix 10 mg oral tablet 08/25/2015 09/24/2015 take 1 tablet (10 mg) by oral route once daily at the same time each day for 30 days Flagyl 500 mg oral tablet 11/03/2015 11/10/2015 take 1 tablet (500 mg) by oral route every 12 hours for 7 days Discontinued Name Start Date Discontinued Date [...] by inhalation route 2 times a day [place] 5-325 mg oral tablet 08/22/2014 11/24/2014 take 1 tablet by oral route every 6 hours as needed for pain trazodone 150 mg oral tablet 11/17/2014 04/01/2015 TAKE ONE TABLET BY MOUTH EVERY DAY AT BEDTIME phentermine 37.5 mg oral tablet 10/09/2015 take [...] by topical route 2 times per day promethazine-codeine 6.25-10 mg/5 mL [...] 3 times a day for 30 days Problem List Description Status Onset Hypothyroidism, Acquired Active Allergic rhinitis; due to other allergen Active Chronic Obstructive Pulmonary Disease Active 10/24/2011 Osteoarthritis Active 11/14/2013 Hyperlipidemia, unspecified Active 06/11/2014 Vital Signs Date Time BP-Sys(mm[Hg] BP-Jocelyn(mm[Hg]) HR(bpm) RR(rpm) Temp WT HT HC BMI BSA BMI Percentile O2 Sat(%) 11/17/2015 3:00:00 PM 110 mmHg 68 mmHg [...] 08/25/2015 12:00 AM Decadron, Per 1 Mg [facility] [place] [id number] Reviewed 08/25/2015 12:00 AM Depo-Medrol, Per 80 Mg [facility] [id number] Reviewed 08/25/2015 12:00 AM Rocephin 1 gram [facility] [place][id number] Reviewed 10/09/2015 12:00 AM COMPLETE CBC W/AUTO DIFF WBC Returned 10/09/2015 12:00 AM COMPREHEN METABOLIC PANEL Returned 10/09/2015 12:00 AM GLYCOSYLATED HEMOGLOBIN TEST Returned 10/09/2015 12:00 AM ASSAY THYROID STIM HORMONE Returned 11/03/2015 8:54 AM URINALYSIS AUTO W/O SCOPE Reviewed 11/03/2015 12:[address] HEAD/BRAIN W/O & W/DYE Returned 08/05/2011 12:00 AM CHEST X-RAY 2VW FRONTAL&LATL [...] Mg [facility] [place] [id number] Reviewed 10/30/2012 12:00 AM COMPLETE CBC W/AUTO DIFF WBC Reviewed 10/30/2012 12:00 AM COMPREHEN METABOLIC PANEL Reviewed 10/30/2012 12:00 AM LIPID PANEL Reviewed 10/30/2012 12:00 AM ASSAY THYROID STIM HORMONE Reviewed 01/08/2013 12:00 AM Depo-Medrol 80 Mg Im/C'pancho Reviewed 01/08/2013 12:00 AM Decadron, Per 1 Mg [facility] [place] [id number] Reviewed 01/08/2013 12:00 AM Rocephin 1 gram [facility] [place][id number] Reviewed 01/08/2013 12:00 AM COMPREHEN METABOLIC PANEL Reviewed 01/08/2013 12:00 AM GLYCOSYLATED HEMOGLOBIN TEST Reviewed 01/08/2013 12:00 AM ASSAY THYROID STIM HORMONE Reviewed 01/08/2013 12:00 AM ASSAY OF PARATHORMONE Reviewed 01/08/2013 12:00 AM LIPID PANEL Reviewed 02/27/2013 12:00 AM THER/PROPH/DIAG INJ SC/IM Reviewed 02/27/2013 12:00 AM Decadron, Per 1 Mg [facility] [place] [id number] Reviewed 02/27/2013 12:00 AM Depo-Medrol, Per 80 Mg [facility] [place]#[id number] Reviewed 03/04/2013 12:00 AM MAMMOGRAM SCREENING Returned 03/05/2013 12:00 AM CYTOPATH TBS C/V MANUAL Returned 03/05/2013 12:00 AM MAMMOGRAM BOTH BREASTS Returned 03/27/2013 12:00 AM THER/PROPH/DIAG INJ SC/IM Reviewed 03/27/2013 12:00 AM Bicillin CR, 1.2 million units [facility] [place]# [id number] Reviewed 05/10/2013 12:00 AM X-RAY EXAM KNEE [...] Mg [facility] [place] [id number] Reviewed 08/09/2013 12:00 AM Depo-Medrol, Per 80 Mg [facility] [place]#[id number] Reviewed 08/21/2013 12:00 AM X-RAY EXAM OF [...] 1 gram [facility] [place]#[id number] Reviewed 04/01/2015 12:00 AM COMPLETE CBC W/AUTO [...] Mg [facility] [place] [id number] Reviewed 05/11/2011 12:00 AM Decadron Inj. per 1mg-[facility] [id number] Reviewed Results Summary Data and Description Results [...] 0.40 mg/ dLCALCIUM 9.80 mg/dLeGFR >60 mL/min/1.73 [id number] 250.0 mg/dLCHOLESTEROL 180.0 mg/dLHDL 39.0 mg/dLLDL (CALC) [...] 0.15 #BASO 0.03 TSH 1.210 uIU/ mL 10/09/2015 9:52 AM WBC 4.7 RBC 5.07 HGB 13.50 g/dLHCT 42.70 %MCV 84.0 fLMCH 26.60 pgHC 31.60 g/dLRDW CV 13.90 %MPV 10.80 fLPLT 195 %NEUT 57.70 %%LYMP 28.40 %%MONO 10.50 %%EOS 2.80 %%BASO 0.60 %#NEUT 2.68 #LYMP 1.32 #MONO 0.49 # EOS 0.13 #BASO 0.03 GLUCOSE 100.0 mg/dLSODIUM 141.0 mmol/LPOTASSIUM 4.30 mmol/ LCHLORIDE 105.0 mmol/LCO2 30.0 mmol/LBUN 12.0 mg/dLCREATININE 0.80 mg/dLSGOT/ AST 23.0 IU/LSGPT/ALT 22.0 IU/LALK PHOS 88.0 IU/LTOTAL PROTEIN 6.80 g/dLALBUMIN 4.0 g/dLTOTAL BILI 0.30 mg/dLCALCIUM 9.70 mg/dLeGFR >60 mL/min/1.73mTSH 1.80 uIU/mL 11/03/2015 8:54 AM Clarity Ur clear Color Ur yellow Glucose Ur-sCnc negative Bilirub Ur Ql Strip neg Ketones Ur Ql Strip neg Sp Gr Ur Qn 1.005 Hgb Ur Ql Strip neg pH Ur-LsCnc 5.5 Urobilinogen Ur-mCnc 0.2 Nitrite Ur Ql Strip neg WBC Est Ur Ql Strip neg History Of Immunizations Name Date Admin Mfg Name Mfg Code Trade Name Lot# Route Inj Vis Given Vis Pub CVX Tdap 04/26/2012 NuPatheine SKB ADACEL [id number] Intramuscular Left Arm 04/26/2012 08/19/2008 115 Tdap 03/14/2014 NuPatheine SKB BOOSTRIX [id number] Intramuscular Left Deltoid 03/14/2014 02/07/2013 115 Influenza 06/22/2015 Deolan. NOV Fluvirin [id number] Intramuscular Left Deltoid 06/23/2015 05/08/2015 140 History [...] Altered mental status Nov 17 2015 3:04PM Payers Insurance Name Company Name Plan Name Plan Number Policy Number Policy Group Number Start Date [employer] [place] [id number] September [facility] Financial Assistance [facility] Financial Alex 40 percent clinic October [employer] [place] [id number] Tuesday, August 30, 2011 [employer] [place] [id number] November State Self Insurance Fund *INVALID State Self Insurance [id number] N /A State Self Insurance Fund *INVALID State Self Insurance [id number] N /A [employer] [place] [id number] July History of Encounters Visit Date Visit Type Provider 11/17/2015 Office visit Sean Marie MD 11/03/2015 Office visit Sean Marie MD 10/09/2015 Office visit 10/09/2015 Office visit Sean Marie MD 08/31/2015 Office visit Sean Marie MD 08/25/2015 Office visit Sean Marie MD 06/05/2015 Office visit Sean Marie MD 05/07/2015 Office visit Amaris Gentile THERAPEUTIC PROGRAM WORKER 05/06/2015 Office visit Kiarra Ramos THERAPEUTIC PROGRAM WORKER 04/01/2015 Office visit 04/01/2015 Office visit Sean Marie MD 04/01/2015 [facility] Michelle Greco MD 03/26/2015 Office visit Sean Marie MD 03/19/2015 Office visit Sean Marie MD 02/13/2015 Office visit Sean Marie MD 01/26/2015 Office visit Leena Haddad THERAPEUTIC PROGRAM WORKER 01/12/2015 Office visit Sean Marie MD 11/24/2014 Office visit Kiarra Ramos THERAPEUTIC PROGRAM WORKER 10/22/2014 Office visit Miguel A Munoz THERAPEUTIC PROGRAM WORKER 08/22/2014 Office visit Sean Marie MD 08/01/2014 Office visit Sean Marie MD 06/09/2014 Office visit Kiarra Ramos THERAPEUTIC PROGRAM WORKER 03/14/2014 Office visit Leena Haddad THERAPEUTIC PROGRAM WORKER 02/27/2014 Office visit Leena Haddad THERAPEUTIC PROGRAM WORKER 12/02/2013 Office visit Sean Marie MD 11/25/2013 Office visit Sean Marie MD 11/14/2013 Office visit Kiarra Ramos THERAPEUTIC PROGRAM WORKER 08/21/2013 Office visit Leena Haddad THERAPEUTIC PROGRAM WORKER 08/09/2013 Office visit Kiarra Ramos THERAPEUTIC PROGRAM WORKER 06/26/2013 Hospital Michelle Greco MD 06/26/2013 Office visit Sean Marie MD 06/21/2013 Office visit Kiarra Ramos THERAPEUTIC PROGRAM WORKER 05/31/2013 Office visit Leena Haddad THERAPEUTIC PROGRAM WORKER 05/10/2013 Office visit Leena Haddad THERAPEUTIC PROGRAM WORKER 05/03/2013 Office visit Leena Haddad THERAPEUTIC PROGRAM WORKER 03/27/2013 Office visit Kiarra Ramos THERAPEUTIC PROGRAM WORKER 03/05/2013 Office visit Kiarra Ramos THERAPEUTIC PROGRAM WORKER 02/27/2013 Office visit Kiarra Ramos THERAPEUTIC PROGRAM WORKER 01/08/2013 Office visit Sean Marie MD 10/30/2012 Office visit Sean Marie MD 04/26/2012 Nurse visit Maria Antonia Barakat THERAPEUTIC PROGRAM WORKER 02/07/2012 Office visit Sean Marie MD 02/07/2012 Hospital Michelle Greco MD 12/13/2011 Office visit Sean Marie MD 11/08/2011 Office visit Sean Marie MD 10/24/2011 Office visit Sean Marie MD 08/05/2011 Office visit Sean Marie MD 07/12/2011 Office visit Kiarra Ramos APRN 05/11/2011 Office visit Sean Marie MD 04/19/2011 [...]
--- OUTSIDE RECORDS SUMMARY | 2018-07-18 12:01 | XMS REPORT ---
Author Author Sean Marie [facility] Address [address] [place], [place] [address] Care Team Providers Care Check Inspector Name Role Phone Sean Marie PCP Unavailable Sean Marie PreferredProvider Unavailable Allergies and Adverse Reactions Name Reaction Notes Albuterol tachycardia increases heart rate too much Percocet "head crawling" Adhesive Tape Plan of Treatment Planned Activity Comments Planned Date Planned Time Plan/Goal CBC With Auto Differential 01/08/2013 12:00 AM [...] TABLET BY MOUTH ONCE DAILY AT BEDTIME Toviaz 8 mg oral tablet extended release 24 hr 09/05/2016 TAKE ONE TABLET BY MOUTH ONCE DAILY [...] tablets by oral route daily as needed Ambien 10 mg oral tablet 05/01/2017 08/29/2017 take 1 tablet (10 mg) by oral route once daily at bedtime for 30 days Xanax 0.25 mg oral tablet 05/01/2017 take 1 tablet by oral route 2 times a day as needed ropinirole 4 mg oral tablet 05/15/2017 10/12/2017 take 1 tablet (4 mg) by oral route 1-3 hours before bedtime for 30 days Flonase Allergy Relief 50 mcg/actuation nasal spray,suspension Singulair oral Zyrtec oral Xarelto 15 mg oral tablet take 1 tablet (15 mg) by oral route 2 times per day with food Lamictal 100 mg oral tablet 07/07/2017 take [...] oral route once daily in the morning OxyContin 40 mg oral tablet,oral only,ext.rel.12 hr 08/09/2017 09/08/2017 take 1 tablet (40 mg) by oral route every 12 hours for 30 days cyclobenzaprine 10 mg oral tablet 08/09/2017 take 1 tablet by oral route 3 times a day as needed Saxenda 3 mg/0.5 mL (18 mg/3 mL) subcutaneous pen injector 08/09/2017 inject 3 mg by subcutaneous route once daily in the abdomen, thigh, or upper arm Name Start Date Expiration Date SIG Comments [...] 2 times per day for 30 days Nuvigil 250 mg oral tablet 09/19/2016 01/17/2017 take 1 tablet (250 mg) by oral route once daily in the morning for 30 days Bactrim DS 800-160 mg oral tablet 03/03/2017 03/10/2017 take 1 tablet by oral route 2 times per day for 7 days Cymbalta 30 mg oral capsule,delayed release(DR/EC) 03/20/2017 07/18/2017 take 1 capsule (30 mg) by oral route once daily for 30 days [employer]AX SERVICES MA[employer] Thyroid 60 mg oral tablet 07/31/2017 07/31/2017 [...] by oral route 2 times per day [place] Thyroid 60 mg oral tablet 12/02/2013 take 1 tablet by oral route daily for 30 days [place] Thyroid 60 mg oral tablet 04/07/2014 TAKE ONE TABLET BY MOUTH ONCE DAILY milk thistle oral 11/24/2014 chromium picolinate oral 06/09/2014 Zofran ODT oral 10/09/2015 Dexilant 60 mg oral capsule,biphase delayed releas 07/09/2014 11/24/2014 TAKE ONE CAPSULE BY MOUTH EVERY DAY [place] Thyroid 60 mg oral tablet 08/04/2014 TAKE [...] by oral route once daily at bedtime [place] 5-325 mg oral tablet 08/22/2014 11/24/2014 take [...] by topical route 2 times per day [place] Thyroid 60 mg oral tablet 07/13/2015 TAKE [...] daily in the morning for 30 days [place] Thyroid 60 mg oral tablet 07/11/2016 08/09/2017 [...] oral route once daily for 30 days Problem List Description Status Onset Hypothyroidism, Acquired Active Allergic rhinitis; due to other allergen Active Chronic Obstructive Pulmonary Disease Active 10/24/2011 Osteoarthritis Active 11/14/2013 Hyperlipidemia, unspecified Active 06/11/2014 Vital Signs Date Time BP-Sys(mm[Hg] BP-Jocelyn(mm[Hg]) HR(bpm) RR(rpm) Temp WT HT HC BMI BSA BMI Percentile O2 Sat(%) 08/09/2017 9:19:00 AM 144 mmHg 82 mmHg [...] 08/25/2015 12:00 AM Decadron, Per 1 Mg [facility]# [id number] Reviewed 08/25/2015 12:00 AM Depo-Medrol, Per 80 Mg [facility]#[address]-54 Reviewed 08/25/2015 12:00 AM Rocephin 1 gram [facility]#8873-8321-76 Reviewed 10/09/2015 12:00 AM COMPLETE CBC W/AUTO DIFF WBC Reviewed 10/09/2015 12:00 AM COMPREHEN METABOLIC PANEL Reviewed 10/09/2015 12:00 AM GLYCOSYLATED HEMOGLOBIN TEST Reviewed 10/09/2015 12:00 AM ASSAY THYROID STIM HORMONE Reviewed 11/03/2015 8:54 AM URINALYSIS AUTO W/O SCOPE Reviewed 11/03/2015 12:[address] HEAD/BRAIN W/O & W/DYE Reviewed 11/17/2015 12:00 AM Rocephin 1 gram [facility]#[id number] Reviewed 08/05/2011 12:00 AM CHEST X-RAY 2VW FRONTAL&LATL Reviewed 12/09/2015 12:00 AM THER/PROPH/DIAG INJ SC/IM Reviewed 12/09/2015 12:00 AM Rocephin 1 gram [facility]#4782-9574-89 Reviewed 11/08/2011 12:00 AM Decadron Inj. per 1mg-[facility] [id number] Reviewed 11/08/2011 12:00 AM Depo-Medrol 80 Mg [facility] [id number] Reviewed 05/20/2016 12:00 AM COMPLETE CBC W/AUTO [...] 4 ANJEL 3 YRS PLUS IM Reviewed 10/30/2012 12:00 AM Depo-Medrol 80 Mg Im/C'pancho Reviewed 10/30/2012 12:00 AM Decadron, Per 1 Mg [facility]# [address]-59 Reviewed 10/30/2012 12:00 AM COMPLETE CBC W/AUTO DIFF WBC Reviewed 10/30/2012 12:00 AM COMPREHEN METABOLIC PANEL Reviewed 10/30/2012 12:00 AM LIPID PANEL Reviewed 10/30/2012 12:00 AM ASSAY THYROID STIM HORMONE Reviewed 01/08/2013 12:00 AM Depo-Medrol 80 Mg Im/C'pancho Reviewed 01/08/2013 12:00 AM Decadron, Per 1 Mg [facility]# [id number] Reviewed 01/08/2013 12:00 AM Rocephin 1 gram [facility]#7780-3045-88 Reviewed 01/08/2013 12:00 AM COMPREHEN METABOLIC PANEL Reviewed 01/08/2013 12:00 AM GLYCOSYLATED HEMOGLOBIN TEST Reviewed 01/08/2013 12:00 AM ASSAY THYROID STIM HORMONE Reviewed 01/08/2013 12:00 AM ASSAY OF PARATHORMONE Reviewed 01/08/2013 12:00 AM LIPID PANEL Reviewed 02/27/2013 12:00 AM THER/PROPH/DIAG INJ SC/IM Reviewed 02/27/2013 12:00 AM Decadron, Per 1 Mg [facility]# [address]-38 Reviewed 02/27/2013 12:00 AM Depo-Medrol, Per 80 Mg [facility]#[id number] Reviewed 03/04/2013 12:00 AM MAMMOGRAM SCREENING Reviewed 03/05/2013 12:00 AM CYTOPATH TBS C/V MANUAL Reviewed 03/05/2013 12:00 AM MAMMOGRAM BOTH BREASTS Reviewed 03/27/2013 12:00 AM THER/PROPH/DIAG INJ SC/IM Reviewed 03/27/2013 12:00 AM Bicillin CR, 1.2 million units [facility]# 53337-143-41 Reviewed 05/10/2013 12:00 AM X-RAY EXAM KNEE [...] 08/09/2013 12:00 AM Decadron, Per 1 Mg [facility]# [address]-06 Reviewed 08/09/2013 12:00 AM Depo-Medrol, Per 80 Mg [facility]#7506-7485-60 Reviewed 08/21/2013 12:00 AM X-RAY EXAM OF [...] Reviewed 03/26/2015 12:00 AM Rocephin 1 gram [facility]#[id number] Reviewed 04/01/2015 12:00 AM COMPLETE CBC W/AUTO DIFF WBC Reviewed 04/01/2015 12:00 AM COMPREHEN METABOLIC PANEL Reviewed 04/01/2015 12:00 AM ASSAY THYROID STIM HORMONE Reviewed 04/01/2015 12:00 AM CHEST X-RAY 2VW FRONTAL&LATL Reviewed 05/07/2015 12:00 AM THER/PROPH/DIAG INJ SC/IM Reviewed 05/07/2015 12:00 AM Decadron injection Reviewed 05/07/2015 12:00 AM Depo-Medrol 40mg Reviewed 05/11/2011 12:00 AM Depo-Medrol 80 Mg [facility] [id number] Reviewed 05/11/2011 12:00 AM Decadron Inj. per 1mg[facility] [id number] Reviewed Results Summary Date and Description Results [...] Vis Given Vis Pub CVX Tdap 04/26/2012 [employer] SKB ADACEL [id number] Intramuscular Left Arm 04/26/2012 08/19/2008 115 Tdap 03/14/2014 [employer] SKB BOOSTRIX [id number] Intramuscular Left Deltoid 03/14/2014 02/07/2013 115 Influenza 06/22/2015 [employer]. NOV Fluvirin [id number] Intramuscular Left Deltoid 06/23/2015 05/08/2015 140 Pneumococcal 09/16/2015 Not Entered NE Pneumovax 23 Intramuscular Not Entered 11/11/2016 10/02/2017 33 Influenza 07/07/2017 sanofi pasteur PMC Fluzone Quadrivalent [id number] Intramuscular Left Deltoid 07/07/2017 05/08/2015 150 History [...] 9:27AM Morbidly obese Aug 09 2017 9:27AM Payers Insurance Name Company Name Plan Name Plan Number Policy Number Policy Group Number [id number] September [facility] Financial Assistance [facility] Financial Alex 40 percent clinic October [employer] [place] [id number] Friday, October 02, 2009 [employer] [place] [id number] November [place] *INVALID [place] Self Insurance [id number] N/A [employer] [employer] [place] *INVALID State Self Insurance [id number] N/A [employer] [place] [id number] July History of Encounters Visit Date Visit Type Provider 08/09/2017 Office visit Sean Marie MD 07/07/2017 Office visit Sean Marie MD 06/16/2017 Office visit Sean Marie MD 05/15/2017 Office visit Sean Marie MD 04/23/2017 Office visit Aurora Martin REEL CART OPERATOR 04/14/2017 Office visit Sean Marie MD 03/20/2017 Office visit Sean Marie MD 03/03/2017 Office visit Aurora Martin REEL CART OPERATOR 01/09/2017 Office visit Sean Marie MD [...] Marie MD 01/16/2016 Office visit Jania Stanley REEL CART OPERATOR 01/07/2016 [facility] Michelle Greco MD 12/31/2015 Office visit Sean Marie MD 12/09/2015 Office visit Miguel A Munoz REEL CART OPERATOR 11/17/2015 Office visit Sean Marie MD 11/03/2015 Office visit Sean Marie MD 10/09/2015 Office visit 10/09/2015 Office visit Sean Marie MD 08/31/2015 Office visit Sean Marie MD 08/25/2015 Office visit Sean Marie MD 06/05/2015 Office visit Sean Marie MD 05/07/2015 Office visit Amaris Gentile REEL CART OPERATOR 05/06/2015 Office visit Kiarra Ramos REEL CART OPERATOR 04/01/2015 Office visit 04/01/2015 Office visit Sean Marie MD 04/01/2015 [facility] Michelle Greco MD 03/26/2015 Office visit Sean Marie MD 03/19/2015 Office visit Sean Marie MD 02/13/2015 Office visit Sean Marie MD 01/26/2015 Office visit Leena Haddad REEL CART OPERATOR 01/12/2015 Office visit Sean Marie MD 11/24/2014 Office visit Kiarra Ramos REEL CART OPERATOR 10/22/2014 Office visit Miguel A Munoz REEL CART OPERATOR 08/22/2014 Office visit Sean Marie MD 08/01/2014 Office visit Sean Marie MD 06/09/2014 Office visit Kiarra Ramos REEL CART OPERATOR 03/14/2014 Office visit Leena Haddad REEL CART OPERATOR 02/27/2014 Office visit Leena Haddad REEL CART OPERATOR 12/02/2013 Office visit Sean Marie MD 11/25/2013 Office visit Sean Marie MD 11/14/2013 Office visit Kiarra Ramos REEL CART OPERATOR 08/21/2013 Office visit Leena Haddad REEL CART OPERATOR 08/09/2013 Office visit Kiarra Ramos REEL CART OPERATOR 06/26/2013 Hospital Michelle Greco MD 06/26/2013 Office visit Sean Marie MD 06/21/2013 Office visit Kiarra Ramos REEL CART OPERATOR 05/31/2013 Office visit Leena Haddad REEL CART OPERATOR 05/10/2013 Office visit Leena Haddad REEL CART OPERATOR 05/03/2013 Office visit Leena Haddad REEL CART OPERATOR 03/27/2013 Office visit Kiarra Ramos REEL CART OPERATOR 03/05/2013 Office visit Kiarra Ramos REEL CART OPERATOR 02/27/2013 Office visit Kiarra Ramos REEL CART OPERATOR 01/08/2013 Office visit Sean Marie MD 10/30/2012 Office visit Sean Marie MD 04/26/2012 Nurse visit Maria Antonia Barakat REEL CART OPERATOR 02/07/2012 Office visit Sean Marie MD [...]
--- OUTSIDE RECORDS SUMMARY | 2018-07-18 12:04 | XMS REPORT ---
Author Author Fredis Rico Organization [facility] Address [address] [place] [id number] Care Team Providers Care Lay Out Drafter Name Role Phone Fredis Rico PCP Sean [...] TAKE ONE CAPSULE BY MOUTH ONCE DAILY Xanax 0.25 mg oral tablet 09/11/2017 take 1 tablet by oral route 2 times a day as needed Melvin 10-325 mg oral tablet 01/19/2018 take 1 [...] daily in the morning for 30 days gabapentin 600 mg oral tablet 02/28/2018 03/30/2018 take 1 tablet (600 mg) by oral route 3 times per day for 30 days Name Start Date Expiration [...] once daily at bedtime for 30 days oxycodone 15 mg oral tablet 07/31/2017 take 1 tablet (15 mg) by oral route every 4 hours RANGER AIDE Thyroid 60 mg oral tablet 07/31/2017 07/31/2017 [...] TO EXCEED 3 DOSES IN 24 HOURS) Discontinued Name Start Date Discontinued Date SIG [...] by oral route 2 times per day [place] Thyroid 60 mg oral tablet 12/02/2013 take 1 tablet by oral route daily for 30 days [place] Thyroid 60 mg oral tablet 04/07/2014 TAKE ONE TABLET BY MOUTH ONCE DAILY milk thistle oral 11/24/2014 chromium picolinate oral 06/09/2014 Zofran ODT oral 10/09/2015 Dexilant 60 mg oral capsule,biphase delayed releas 07/09/2014 11/24/2014 TAKE ONE CAPSULE BY MOUTH EVERY DAY [place] Thyroid 60 mg oral tablet 08/04/2014 TAKE [...] by oral route once daily at bedtime Melvin 5-325 mg oral tablet 08/22/2014 11/24/2014 take [...] by topical route 2 times per day [place] Thyroid 60 mg oral tablet 07/13/2015 TAKE [...] daily in the morning for 30 days [place] Thyroid 60 mg oral tablet 07/11/2016 08/09/2017 [...] route 2 times per day with food cyclobenzaprine 10 mg oral tablet 08/09/2017 10/27/2017 [...] route once daily with the evening meal Problem List Description Status Onset Hypothyroidism, Acquired Active Allergic rhinitis; due to other allergen Active Chronic Obstructive Pulmonary Disease Active 10/24/2011 Osteoarthritis Active 11/14/2013 Hyperlipidemia, unspecified Active 06/11/2014 Vital Signs Date Time BP-Sys(mm[Hg] BP-Jocelyn(mm[Hg]) HR(bpm) RR(rpm) Temp WT HT HC BMI BSA BMI Percentile O2 Sat(%) 02/28/2018 8:02:00 AM 130 mmHg 74 mmHg [...] 08/25/2015 12:00 AM Decadron, Per 1 Mg [facility]# [address]-19 Reviewed 08/25/2015 12:00 AM Depo-Medrol, Per 80 Mg [facility]#[address]-52 Reviewed 08/25/2015 12:00 AM Rocephin 1 gram [facility]#8570-3437-80 Reviewed 10/09/2015 12:00 AM COMPLETE CBC W/AUTO DIFF WBC Reviewed 10/09/2015 12:00 AM COMPREHEN METABOLIC PANEL Reviewed 10/09/2015 12:00 AM GLYCOSYLATED HEMOGLOBIN TEST Reviewed 10/09/2015 12:00 AM ASSAY THYROID STIM HORMONE Reviewed 11/03/2015 8:54 AM URINALYSIS AUTO W/O SCOPE Reviewed 11/03/2015 12:[address] HEAD/BRAIN W/O & W/DYE Reviewed 11/17/2015 12:00 AM Rocephin 1 gram [facility]#1709-6144-56 Reviewed 08/05/2011 12:00 AM CHEST X-RAY 2VW FRONTAL&LATL Reviewed 12/09/2015 12:00 AM THER/PROPH/DIAG INJ SC/IM Reviewed 12/09/2015 12:00 AM Rocephin 1 gram [facility]#6968-6090-75 Reviewed 11/08/2011 12:00 AM Decadron Inj. per 1mg-[facility] [id number] Reviewed 11/08/2011 12:00 AM Depo-Medrol 80 Mg [facility] [id number] Reviewed 05/20/2016 12:00 AM COMPLETE CBC W/AUTO [...] 10/30/2012 12:00 AM Decadron, Per 1 Mg [facility]# [address]-27 Reviewed 10/30/2012 12:00 AM COMPLETE CBC W/AUTO [...] 01/08/2013 12:00 AM Decadron, Per 1 Mg [facility]# [address]-14 Reviewed 01/08/2013 12:00 AM Rocephin 1 gram [facility]#4481-9065-69 Reviewed 01/08/2013 12:00 AM COMPREHEN METABOLIC PANEL Reviewed 01/08/2013 12:00 AM GLYCOSYLATED HEMOGLOBIN TEST Reviewed 01/08/2013 12:00 AM ASSAY THYROID STIM HORMONE Reviewed 01/08/2013 12:00 AM ASSAY OF PARATHORMONE Reviewed 01/08/2013 12:00 AM LIPID PANEL Reviewed 02/27/2013 12:00 AM THER/PROPH/DIAG INJ SC/IM Reviewed 02/27/2013 12:00 AM Decadron, Per 1 Mg [facility]# [address]-99 Reviewed 02/27/2013 12:00 AM Depo-Medrol, Per 80 Mg [facility]#7621-3612-24 Reviewed 03/04/2013 12:00 AM MAMMOGRAM SCREENING Reviewed 03/05/2013 12:00 AM CYTOPATH TBS C/V MANUAL Reviewed 03/05/2013 12:00 AM MAMMOGRAM BOTH BREASTS Reviewed 03/27/2013 12:00 AM THER/PROPH/DIAG INJ SC/IM Reviewed 03/27/2013 12:00 AM Bicillin CR, 1.2 million units [facility]# 29068-053-52 Reviewed 05/10/2013 12:00 AM X-RAY EXAM KNEE [...] 08/09/2013 12:00 AM Decadron, Per 1 Mg [facility]# [address]-97 Reviewed 08/09/2013 12:00 AM Depo-Medrol, Per 80 Mg [facility]#0781-0309-08 Reviewed 08/21/2013 12:00 AM X-RAY EXAM OF [...] Reviewed 03/26/2015 12:00 AM Rocephin 1 gram [facility]#6891-6228-85 Reviewed 04/01/2015 12:00 AM COMPLETE CBC W/AUTO DIFF WBC Reviewed 04/01/2015 12:00 AM COMPREHEN METABOLIC PANEL Reviewed 04/01/2015 12:00 AM ASSAY THYROID STIM HORMONE Reviewed 04/01/2015 12:00 AM CHEST X-RAY 2VW FRONTAL&LATL Reviewed 05/07/2015 12:00 AM THER/PROPH/DIAG INJ SC/IM Reviewed 05/07/2015 12:00 AM Decadron injection Reviewed 05/07/2015 12:00 AM Depo-Medrol 40mg Reviewed 05/11/2011 12:00 AM Depo-Medrol 80 Mg [facility] [id number] Reviewed 05/11/2011 12:00 AM Decadron Inj. per 1mg-[facility] [id number]-[id number] Reviewed Results Summary Date and Description Results [...] Vis Given Vis Pub CVX Tdap 04/26/2012 [employer] SKB ADACEL [id number] Intramuscular Left Arm 04/26/2012 08/19/2008 115 Tdap 03/14/2014 [employer] SKB BOOSTRIX [id number] Intramuscular Left Deltoid 03/14/2014 02/07/2013 115 Influenza 06/22/2015 [employer]. NOV FLUVIRIN [id number] Intramuscular Left Deltoid 06/23/2015 05/08/2015 140 Pneumococcal 09/16/2015 Not Entered NE PNEUMOVAX 23 Intramuscular Not Entered 11/11/2016 10/02/2017 33 Influenza 07/07/2017 sanofi pasteur PMC Fluzone Quadrivalent [id number] Intramuscular Left Deltoid 07/07/2017 05/08/2015 150 History [...] 2018 8:09AM Cervicalgia Feb 28 2018 8:09AM Payers Insurance Name Company Name Plan Name Plan Number Policy Number Policy Group Number Start Date [employer] [place] [id number] N/A [facility] [employer] Alex 100 PERCENT Tuesday, November 21, 2017 [facility] [employer] [facility] [employer] Alex 100 percent Tuesday, November 21, 2017 [employer] [place] [id number] Friday, October 02, 2009 [employer] [place] [id number] November [employer] Self Insurance Fund *INVALID State Self Insurance [id number] N/A [employer] Fund *INVALID [place] Self Insurance [id number] N/A [employer] [place] [id number] July [employer] [place] [id number] September History of Encounters Visit Date Visit Type Provider 02/28/2018 Office visit Fredis Rico DO 01/29/2018 [...] Marie MD 01/16/2016 Office visit Jania Stanley AUTO FINANCE SALES REP 01/07/2016 Hospital Michelle Greco MD 12/31/2015 Office visit Sean Marie MD 12/09/2015 Office visit Miguel A Munoz AUTO FINANCE SALES REP 11/17/2015 Office visit Sean Marie MD 11/03/2015 Office visit Sean Marie MD 10/09/2015 Office visit 10/09/2015 Office visit Sean Marie MD 08/31/2015 Office visit Sean Marie MD 08/25/2015 Office visit Sean Marie MD 06/05/2015 Office visit Sean Marie MD 05/07/2015 Office visit Amaris Gentile AUTO FINANCE SALES REP 05/06/2015 Office visit Kiarra Ramos AUTO FINANCE SALES REP 04/01/2015 Office visit 04/01/2015 Office visit Sean Marie MD 04/01/2015 [facility] Michelle Greco MD 03/26/2015 Office visit Sean Marie MD 03/19/2015 Office visit Sean Marie MD 02/13/2015 Office visit Sean Marie MD 01/26/2015 Office visit Leena Haddad AUTO FINANCE SALES REP 01/12/2015 Office visit Sean Marie MD 11/24/2014 Office visit Kiarra Ramos AUTO FINANCE SALES REP 10/22/2014 Office visit Miguel A Munoz AUTO FINANCE SALES REP 08/22/2014 Office visit Sean Marie MD 08/01/2014 Office visit Sean Marie MD 06/09/2014 Office visit Kiarra Ramos AUTO FINANCE SALES REP 03/14/2014 Office visit Leena Haddad AUTO FINANCE SALES REP 02/27/2014 Office visit Leena Haddad AUTO FINANCE SALES REP 12/02/2013 Office visit Sean Marei MD 11/25/2013 Office visit Sean Marie MD 11/14/2013 Office visit Kiarra Ramos AUTO FINANCE SALES REP 08/21/2013 Office visit Leena Haddad AUTO FINANCE SALES REP 08/09/2013 Office visit Kiarra Ramos AUTO FINANCE SALES REP 06/26/2013 Hospital Michelle Greco MD 06/26/2013 Office visit Sean Marie MD 06/21/2013 Office visit Kiarra Ramos AUTO FINANCE SALES REP 05/31/2013 Office visit Leena Haddad AUTO FINANCE SALES REP 05/10/2013 Office visit Leena Haddad AUTO FINANCE SALES REP 05/03/2013 Office visit Leena Haddad AUTO FINANCE SALES REP 03/27/2013 Office visit Kiarra Richard AUTO FINANCE SALES REP 03/05/2013 Office visit Kiarra Richard AUTO FINANCE SALES REP 02/27/2013 Office visit Kiarra Ramos AUTO FINANCE SALES REP 01/08/2013 Office visit Sean Marie MD 10/30/2012 Office visit Sean Marie MD 04/26/2012 Nurse visit Maria Antonia Barakat AUTO FINANCE SALES REP 02/07/2012 Office visit Sean Marie MD 02/07/2012 [facility] Marcela Greco MD 12/13/2011 Office visit Sean Marie MD 11/08/2011 Office visit Sean Marie MD 10/24/2011 Office visit Sean Marie MD 08/05/2011 Office visit Sean Marie MD 07/12/2011 Office visit Kiarra Ramos AUTO FINANCE SALES REP 05/11/2011 Office visit Sean Marie MD 04/19/2011 [...]
--- OUTSIDE RECORDS SUMMARY | 2018-07-18 12:06 | XMS REPORT ---
Author Author Miguel A Munoz [facility] Address [address] [place], [place] [id number] Care Team Providers Care Director Volunteer Services Name Role Phone Miguel A Munoz PCP Allergies and Adverse Reactions Name Reaction Notes [...] TABLET BY MOUTH EVERY DAY AT BEDTIME Barry Thyroid 60 mg oral tablet 04/07/2014 TAKE ONE TABLET BY MOUTH ONCE DAILY lovastatin 40 mg oral tablet 06/12/2014 take 1 tablet by oral route daily Barry Thyroid 60 mg oral tablet 08/04/2014 TAKE [...] TAKE ONE TABLET BY MOUTH ONCE DAILY Barry Thyroid 60 mg oral tablet 07/13/2015 TAKE [...] TAKE ONE TABLET BY MOUTH ONCE DAILY Name Start [...] once daily at bedtime for 30 days Barry Thyroid 60 mg oral tablet 12/02/2013 04/01/2014 [...] oral route once daily for 4 days Discontinued Name Start Date Discontinued Date [...] by oral route once daily at bedtime [place] 5-325 mg oral tablet 08/22/2014 11/24/2014 take [...] HC BMI BSA BMI Percentile O2 Sat(%) 12/09/2015 5:15:00 PM 138 mmHg 74 mmHg [...] 08/25/2015 12:00 AM Decadron, Per 1 Mg [facility]# [address]-51 Reviewed 08/25/2015 12:00 AM Depo-Medrol, Per 80 Mg [facility]#[address]-76 Reviewed 08/25/2015 12:00 AM Rocephin 1 gram [facility]#9895-4800-54 Reviewed 10/09/2015 12:00 AM COMPLETE CBC W/AUTO DIFF WBC Reviewed 10/09/2015 12:00 AM COMPREHEN METABOLIC PANEL Reviewed 10/09/2015 12:00 AM GLYCOSYLATED HEMOGLOBIN TEST Reviewed 10/09/2015 12:00 AM ASSAY THYROID STIM HORMONE Reviewed 11/03/2015 8:54 AM URINALYSIS AUTO W/O SCOPE Reviewed 11/03/2015 12:[address] HEAD/BRAIN W/O & W/DYE Reviewed 11/17/2015 12:00 AM Rocephin 1 gram [facility]#7312-5648-38 Reviewed 08/05/2011 12:00 AM CHEST X-RAY 2VW FRONTAL&LATL Reviewed 12/09/2015 12:00 AM THER/PROPH/DIAG INJ SC/IM Reviewed 12/09/2015 12:00 AM Rocephin 1 gram [facility]#6257-6834-61 Reviewed 12/13/2011 12:00 AM X-RAY EXAM OF [...] 10/30/2012 12:00 AM Decadron, Per 1 Mg [facility]# [address]-38 Reviewed 10/30/2012 12:00 AM COMPLETE CBC W/AUTO DIFF WBC Reviewed 10/30/2012 12:00 AM COMPREHEN METABOLIC PANEL Reviewed 10/30/2012 12:00 AM LIPID PANEL Reviewed 10/30/2012 12:00 AM ASSAY THYROID STIM HORMONE Reviewed 01/08/2013 12:00 AM Depo-Medrol 80 Mg Im/C'pancho Reviewed 01/08/2013 12:00 AM Decadron, Per 1 Mg [facility]# [address]-98 Reviewed 01/08/2013 12:00 AM Rocephin 1 gram [facility]#4166-8115-19 Reviewed 01/08/2013 12:00 AM COMPREHEN METABOLIC PANEL Reviewed 01/08/2013 12:00 AM GLYCOSYLATED HEMOGLOBIN TEST Reviewed 01/08/2013 12:00 AM ASSAY THYROID STIM HORMONE Reviewed 01/08/2013 12:00 AM ASSAY OF PARATHORMONE Reviewed 01/08/2013 12:00 AM LIPID PANEL Reviewed 02/27/2013 12:00 AM THER/PROPH/DIAG INJ SC/IM Reviewed 02/27/2013 12:00 AM Decadron, Per 1 Mg [facility]# [address]-95 Reviewed 02/27/2013 12:00 AM Depo-Medrol, Per 80 Mg [facility]#7574-5084-47 Reviewed 03/04/2013 12:00 AM MAMMOGRAM SCREENING Returned 03/05/2013 12:00 AM CYTOPATH TBS C/V MANUAL Returned 03/05/2013 12:00 AM MAMMOGRAM BOTH BREASTS Returned 03/27/2013 12:00 AM THER/PROPH/DIAG INJ SC/IM Reviewed 03/27/2013 12:00 AM Bicillin CR, 1.2 million units [facility]# 56212-738-12 Reviewed 05/10/2013 12:00 AM X-RAY EXAM KNEE [...] 08/09/2013 12:00 AM Decadron, Per 1 Mg [facility]# [address]-30 Reviewed 08/09/2013 12:00 AM Depo-Medrol, Per 80 Mg [facility]#3157-9928-18 Reviewed 08/21/2013 12:00 AM X-RAY EXAM OF [...] Reviewed 03/26/2015 12:00 AM Rocephin 1 gram [facility]#2576-6096-06 Reviewed 04/01/2015 12:00 AM COMPLETE CBC W/AUTO DIFF WBC Reviewed 04/01/2015 12:00 AM COMPREHEN METABOLIC PANEL Reviewed 04/01/2015 12:00 AM ASSAY THYROID STIM HORMONE Reviewed 04/01/2015 12:00 AM CHEST X-RAY 2VW FRONTAL&LATL Reviewed 05/07/2015 12:00 AM THER/PROPH/DIAG INJ SC/IM Reviewed 05/07/2015 12:00 AM Decadron injection Reviewed 05/07/2015 12:00 AM Depo-Medrol 40mg Reviewed 05/11/2011 12:00 AM Depo-Medrol 80 Mg [facility] [id number] Reviewed 05/11/2011 12:00 AM Decadron Inj. per 1mg-[facility] [id number]-Gvwtejwdo Reviewed Results Summary Data and Description Results [...] 0.40 mg/ dLCALCIUM 9.80 mg/dLeGFR >60 mL/min/1.73 e7LLEOGBVUVPAAN 250.0 mg/dLCHOLESTEROL 180.0 mg/dLHDL 39.0 mg/dLLDL (CALC) [...] %MCV 84.0 fLMCH 26.60 pgMCHC 31.60 g/dLRDW CV 13.90 %MPV 10.80 fLPLT [...] neg WBC Est Ur Ql Strip neg 11/28/2015 6:35 AM WBC 7.0 RBC 5.54 HGB 14.50 g/dLHCT 47.10 %MCV 85.0 fLMCH 26.20 pgMCHC 30.80 g/dLRDW CV 14.10 %MPV 10.90 fLPLT 223 %NEUT 68.30 %%LYMP 22.20 %%MONO 7.40 %%EOS 1.70 %%BASO 0.40 %#NEUT 4.79 #LYMP 1.56 #MONO 0.52 #EOS 0.12 #BASO 0.03 GLUCOSE 95.0 mg/dLSODIUM 141.0 mmol/LPOTASSIUM 4.0 mmol/ LCHLORIDE 103.0 mmol/LCO2 27.0 mmol/LBUN 19.0 mg/dLCREATININE 0.80 mg/dLSGOT/ AST 14.0 IU/LSGPT/ALT 16.0 IU/LALK PHOS 106.0 IU/LTOTAL PROTEIN 7.40 g/ dLALBUMIN 4.30 g/dLTOTAL BILI 0.30 mg/dLCALCIUM 10.0 mg/dLeGFR >60 mL/min/1.73m TSH 2.160 uIU/mLVITAMIN B12 513.0 pg/mLRPR Non Reactive VITAMIN D 52.40 ng/ mLCopper, Serum 140.0 ug/dL 11/28/2015 12:10 PM AChR Binding Abs, Serum <0.03 nmol/L History Of Immunizations Name Date Admin Mfg Name Mfg Code Trade Name Lot# Route Inj Vis Given Vis Pub CVX Tdap 04/26/2012 [employer] SKB ADACEL [id number] Intramuscular Left Arm 04/26/2012 08/19/2008 115 Tdap 03/14/2014 [employer] SKB BOOSTRIX [id number] Intramuscular Left Deltoid 03/14/2014 02/07/2013 115 Influenza 06/22/2015 [employer]. NOV Fluvirin [id number] Intramuscular Left Deltoid 06/23/2015 05/08/2015 140 History [...] infection, unspecified type Dec 09 2015 5:20PM Payers Insurance Name Company Name Plan Name Plan Number Policy Number Policy Group Number Start Date [facility] [id number] September [facility] Financial Assistance [facility] Financial Alex 40 percent clinic October [facility] [id number] Tuesday, August 30, [id number] November [employer] Self [employer] Fund *[place] Self Insurance [id number] N/A [employer] Fund *[place] Self Insurance [id number] N/A [facility] [id number] July History of Encounters Visit Date Visit Type Provider 12/09/2015 Office visit Miguel A Munoz APRN 11/17/2015 Office visit Sean Marie MD 11/03/2015 Office visit Sean Marie MD 10/09/2015 Office visit 10/09/2015 Office visit Sean Marie MD 08/31/2015 Office visit Sean Marie MD 08/25/2015 Office visit Sean Marie MD 06/05/2015 Office visit Sean Marie MD 05/07/2015 Office visit Amaris Gentile INTAKE MANAGER 05/06/2015 Office visit Kiarra Ramos INTAKE MANAGER 04/01/2015 Office visit 04/01/2015 Office visit Sean Marie MD 04/01/2015 Hospital Michelle Greco MD 03/26/2015 Office visit Sean Marie MD 03/19/2015 Office visit Sean Marie MD 02/13/2015 Office visit Sean Marie MD 01/26/2015 Office visit Leena Haddad INTAKE MANAGER 01/12/2015 Office visit Sean Marie MD 11/24/2014 Office visit Kiarra Ramos INTAKE MANAGER 10/22/2014 Office visit Miguel A Munoz INTAKE MANAGER 08/22/2014 Office visit Sean Marie MD 08/01/2014 Office visit Sean Marie MD 06/09/2014 Office visit Kiarra Ramos INTAKE MANAGER 03/14/2014 Office visit Leena Haddad INTAKE MANAGER 02/27/2014 Office visit Leena Haddad INTAKE MANAGER 12/02/2013 Office visit Sean Marie MD 11/25/2013 Office visit Sean Marie MD 11/14/2013 Office visit Kiarra Ramos INTAKE MANAGER 08/21/2013 Office visit Leena Haddad INTAKE MANAGER 08/09/2013 Office visit Kiarra Ramos INTAKE MANAGER 06/26/2013 Hospital Michelle Greco MD 06/26/2013 Office visit Sean Marie MD 06/21/2013 Office visit Kiarra Ramos INTAKE MANAGER 05/31/2013 Office visit Leean Haddad INTAKE MANAGER 05/10/2013 Office visit Leena Haddad INTAKE MANAGER 05/03/2013 Office visit Lenea Haddad INTAKE MANAGER 03/27/2013 Office visit Kiarra Ramos INTAKE MANAGER 03/05/2013 Office visit Kiarra Ramos INTAKE MANAGER 02/27/2013 Office visit Kiarra Ramos INTAKE MANAGER 01/08/2013 Office visit Sean Marie MD 10/30/2012 Office visit Sean Marie MD 04/26/2012 Nurse visit Maria Antonia Barakat INTAKE MANAGER 02/07/2012 Office visit Sean Marie MD 02/07/2012 [facility] Marcela Greco MD 12/13/2011 Office visit [...]
--- OUTSIDE RECORDS SUMMARY | 2018-07-18 12:08 | XMS REPORT ---
Author Author Sean Marie [facility] Address [address] [place], [place] [id number] Care Team Providers Care Sliver Cutter Name Role Phone Sean Marie PCP Unavailable Allergies and Adverse Reactions Name Reaction Notes Albuterol tachycardia increases heart rate too much Percocet "head crawling" Plan of Treatment Planned Activity Comments Planned Date Planned Time Plan/Goal COMPLETE CBC W/AUTO DIFF WBC 10/09/2015 12:00 AM COMPREHEN METABOLIC PANEL 10/09/2015 12:00 AM GLYCOSYLATED HEMOGLOBIN TEST 10/09/2015 12:00 AM ASSAY THYROID STIM HORMONE 10/09/2015 12:00 AM COMPLETE CBC W/AUTO DIFF WBC 01/08/2013 12:00 AM ELECTROCARDIOGRAM COMPLETE 06/26/2013 12:00 AM ELECTROCARDIOGRAM COMPLETE 04/01/2015 12:00 AM Medications Active Name Start Date Estimated Completion Date SIG Comments aspirin 81 mg oral tablet,delayed release (DR/EC) take 1 tablet (81 mg) by oral route once daily pravastatin 20 mg oral tablet 02/03/2014 TAKE ONE TABLET BY MOUTH EVERY DAY AT BEDTIME [place] Thyroid 60 mg oral tablet 04/07/2014 TAKE ONE TABLET BY MOUTH ONCE DAILY lovastatin 40 mg oral tablet 06/12/2014 take 1 tablet by oral route daily [place] Thyroid 60 mg oral tablet 08/04/2014 TAKE [...] TAKE ONE TABLET BY MOUTH ONCE DAILY [place] Thyroid 60 mg oral tablet 07/13/2015 TAKE [...] TABLET BY MOUTH ONCE DAILY AT BEDTIME Pen[place]aid 20 mg/gram /actuation(2 %) topical solution in metered-dose pump apply 2 pumps (40 mg) to the affected knee(s) by topical route 2 times per day Saxenda 3 mg/0.5 mL (18 mg/3 mL) subcutaneous pen injector 09/10/2015 inject 0.5 milliliter (3 mg) by subcutaneous route once daily in the abdomen, thigh, or upper arm furosemide 40 mg oral tablet 09/21/2015 TAKE ONE TABLET BY MOUTH ONCE DAILY IN THE MORNING NEEDED Brovana 15 mcg/2 mL inhalation solution for nebulization 10/09/2015 inhale 2 milliliters (15 mcg) by inhalation route 2 times per day Lyrica 75 mg oral capsule 10/09/2015 04/06/2016 take 1 capsule by oral route 3 times a day for 30 days Name Start Date [...] 4 days Cymbalta 60 mg oral capsule,delayed release(/EC) 11/14/2013 11/09/2014 TAKE ONE CAPSULE BY MOUTH EVERY DAY pravastatin 20 mg oral tablet 11/21/2013 02/19/2014 take 1 tablet (20 mg) by oral route once daily at bedtime for 30 days [place] Thyroid 60 mg oral tablet 12/02/2013 04/01/2014 [...] same time each day for 30 days Discontinued Name Start Date [...] by inhalation route 2 times a day [place] 5-325 mg oral tablet 08/22/2014 11/24/2014 take [...] to exceed 30 mL in 24 hours Problem List Description Status Onset Hypothyroidism, Acquired Active Allergic rhinitis; due to other allergen Active Chronic Obstructive Pulmonary Disease Active 10/24/2011 Osteoarthritis Active 11/14/2013 Hyperlipidemia, unspecified Active 06/11/2014 Vital Signs Date Time BP-Sys(mm[Hg] BP-Jocelyn(mm[Hg]) HR(bpm) RR(rpm) Temp WT HT HC BMI BSA BMI Percentile O2 Sat(%) 10/09/2015 8:47:00 AM 144 mmHg 84 mmHg [...] 1 Mg [facility]# [address]-58 Reviewed 08/25/2015 12:00 AM Depo-Medrol, Per 80 Mg [facility]#[address]-96 Reviewed 08/25/2015 12:00 AM Rocephin 1 gram [facility]#4723-4314-00 Reviewed 08/05/2011 12:00 AM CHEST X-RAY 2VW [...] 1 Mg [facility]# [address]-90 Reviewed 10/30/2012 12:00 AM COMPLETE CBC W/AUTO DIFF WBC Reviewed 10/30/2012 12:00 AM COMPREHEN METABOLIC PANEL Reviewed 10/30/2012 12:00 AM LIPID PANEL Reviewed 10/30/2012 12:00 AM ASSAY THYROID STIM HORMONE Reviewed 01/08/2013 12:00 AM Depo-Medrol 80 Mg Im/C'pancho Reviewed 01/08/2013 12:00 AM Decadron, Per 1 Mg [facility]# [address]-57 Reviewed 01/08/2013 12:00 AM Rocephin 1 gram [facility]#4913-5197-30 Reviewed 01/08/2013 12:00 AM COMPREHEN METABOLIC PANEL Reviewed 01/08/2013 12:00 AM GLYCOSYLATED HEMOGLOBIN TEST Reviewed 01/08/2013 12:00 AM ASSAY THYROID STIM HORMONE Reviewed 01/08/2013 12:00 AM ASSAY OF PARATHORMONE Reviewed 01/08/2013 12:00 AM LIPID PANEL Reviewed 02/27/2013 12:00 AM THER/PROPH/DIAG INJ SC/IM Reviewed 02/27/2013 12:00 AM Decadron, Per 1 Mg [facility]# [address]-17 Reviewed 02/27/2013 12:00 AM Depo-Medrol, Per 80 Mg [facility]#5865-4339-50 Reviewed 03/04/2013 12:00 AM MAMMOGRAM SCREENING Returned 03/05/2013 12:00 AM CYTOPATH TBS C/V MANUAL Returned 03/05/2013 12:00 AM MAMMOGRAM BOTH BREASTS Returned 03/27/2013 12:00 AM THER/PROPH/DIAG INJ SC/IM Reviewed 03/27/2013 12:00 AM Bicillin CR, 1.2 million units [facility]# 17829-659-95 Reviewed 05/10/2013 12:00 AM X-RAY EXAM KNEE [...] 1 Mg [facility]# [address]-92 Reviewed 08/09/2013 12:00 AM Depo-Medrol, Per 80 Mg [facility]#9364-5566-98 Reviewed 08/21/2013 12:00 AM X-RAY EXAM OF [...] Rocephin 1 gram [facility]#6525-8056-91 Reviewed 04/01/2015 12:00 AM COMPLETE CBC W/AUTO DIFF WBC Reviewed 04/01/2015 12:00 AM COMPREHEN METABOLIC PANEL Reviewed 04/01/2015 12:00 AM ASSAY THYROID STIM HORMONE Reviewed 04/01/2015 12:00 AM CHEST X-RAY 2VW FRONTAL&LATL Reviewed 05/07/2015 12:00 AM THER/PROPH/DIAG INJ SC/IM Reviewed 05/07/2015 12:00 AM Decadron injection Reviewed 05/07/2015 12:00 AM Depo-Medrol 40mg Reviewed 05/11/2011 12:00 AM Depo-Medrol 80 Mg [facility] [id number] Reviewed 05/11/2011 12:00 AM Decadron Inj. per 1mg-[facility] [id number] Reviewed Results Summary Data and Description Results [...] 0.40 mg/ dLCALCIUM 9.80 mg/dLeGFR >60 mL/min/1.73 [id number] 250.0 mg/dLCHOLESTEROL 180.0 mg/dLHDL 39.0 mg/dLLDL (CALC) [...] Vis Given Vis Pub CVX Tdap 04/26/2012 GlaxEvaluAgentine SKB ADACEL [id number] Intramuscular Left Arm 04/26/2012 08/19/2008 115 Tdap 03/14/2014 GlaxEvaluAgentine SKB BOOSTRIX [id number] Intramuscular Left Deltoid 03/14/2014 02/07/2013 115 Influenza 06/22/2015 [employer] Pamela. NOV Fluvirin [id number] Intramuscular Left Deltoid 06/23/2015 05/08/2015 140 History of Past Illness Name Date of Onset Comments Allergic rhinitis; due to other allergen Hypothyroidism, Acquired Otitis Media, Acute May 10 2010 11:02AM Cystitis, Acute Feb 08 2010 [...] Obstructive Pulmonary Disease Oct 09 2015 8:55AM Payers Insurance Name Company Name Plan Name Plan Number Policy Number Policy Group Number Start Date [employer] [place] [id number] September [facility] Financial Assistance [facility] Financial Alex 40 percent clinic October [employer] [place] [id number] Tuesday, August 30, 2011 [employer] [place] [id number] November State Self Insurance Fund *INVALID State Self Insurance [id number] N /A State Self Insurance Fund *INVALID State Self Insurance [id number] N /A [employer] [place] [id number] July History of Encounters Visit Date Visit Type Provider 10/09/2015 Office visit Sean Marie MD 08/31/2015 Office visit Sean Marie MD 08/25/2015 Office visit Sean Marie MD 06/05/2015 Office visit Sean Marie MD 05/07/2015 Office visit Amaris Gentile APPLICATION SUPPORT TECHNICIAN 05/06/2015 Office visit Kiarra Ramos APPLICATION SUPPORT TECHNICIAN 04/01/2015 Office visit Sean Marie MD 04/01/2015 [facility] Michelle Greco MD 03/26/2015 Office visit Sean Marie MD 03/19/2015 Office visit Sean Marie MD 02/13/2015 Office visit Sean Marie MD 01/26/2015 Office visit Leena Haddad APPLICATION SUPPORT TECHNICIAN 01/12/2015 Office visit Sean Marie MD 11/24/2014 Office visit Kiarra Ramos APRN 10/22/2014 Office visit Miguel A Munoz APRN 08/22/2014 Office visit Sean Marie MD 08/01/2014 Office visit Sean Marie MD 06/09/2014 Office visit Kiarra Ramos APPLICATION SUPPORT TECHNICIAN 03/14/2014 Office visit Leena Haddad APPLICATION SUPPORT TECHNICIAN 02/27/2014 Office visit Leena Haddad APPLICATION SUPPORT TECHNICIAN 12/02/2013 Office visit Sean Marie MD 11/25/2013 Office visit Sean Marie MD 11/14/2013 Office visit Kiarra Ramos APPLICATION SUPPORT TECHNICIAN 08/21/2013 Office visit Leena Haddad APPLICATION SUPPORT TECHNICIAN 08/09/2013 Office visit Kiarra Ramos APPLICATION SUPPORT TECHNICIAN 06/26/2013 Hospital Michelle Greco MD 06/26/2013 Office visit Sean Marie MD 06/21/2013 Office visit Kiarra Ramos APPLICATION SUPPORT TECHNICIAN 05/31/2013 Office visit Leena Haddad APPLICATION SUPPORT TECHNICIAN 05/10/2013 Office visit Leena Haddad APPLICATION SUPPORT TECHNICIAN 05/03/2013 Office visit Leena Haddad APPLICATION SUPPORT TECHNICIAN 03/27/2013 Office visit Kiarra Ramos APPLICATION SUPPORT TECHNICIAN 03/05/2013 Office visit Kiarra Ramos APPLICATION SUPPORT TECHNICIAN 02/27/2013 Office visit Kiarra Richard APPLICATION SUPPORT TECHNICIAN 01/08/2013 Office visit Sean Marie MD 10/30/2012 Office visit Sean Marie MD 04/26/2012 Nurse visit Maria Antonia Barakat APPLICATION SUPPORT TECHNICIAN 02/07/2012 Office visit Sean Marie MD 02/07/2012 Hospital Michelle Greco MD 12/13/2011 Office visit Sean Marie MD 11/08/2011 Office visit Sean Marie MD 10/24/2011 Office visit Sean Marie MD 08/05/2011 Office visit Sean Marie MD 07/12/2011 Office visit Kiarra Ramos APPLICATION SUPPORT TECHNICIAN 05/11/2011 Office visit Sean Marei MD 04/19/2011 Office visit Sean Marie MD [...]
--- OUTSIDE RECORDS SUMMARY | 2018-07-18 12:10 | XMS REPORT ---
Author Author Sean Marie [facility] Address [address] [place], [place] [id number] Care Team Providers Care Manager Of [facility] Services Name Role Phone Sean Marie PCP Unavailable Sean Marie PreferredProvider Unavailable Allergies and Adverse Reactions Name Reaction Notes Albuterol tachycardia increases heart rate too much Percocet "head crawling" Adhesive Tape Plan of Treatment Planned Activity Comments Planned Date Planned Time Plan/Goal US PELVIC NON-OB 05/18/2017 12:00 AM CBC With Auto Differential 01/08/2013 12:00 AM EKG (12-lead electrocardiogram) 06/26/2013 12:00 AM EKG (12-lead electrocardiogram) 04/01/2015 12:00 AM Medications Active Name Start Date Estimated Completion Date SIG Comments aspirin 81 mg oral tablet,delayed release (DR/EC) take 1 tablet (81 mg) by oral route once daily pravastatin 20 mg oral tablet 02/03/2014 TAKE ONE TABLET BY MOUTH EVERY DAY AT BEDTIME Goodrich Thyroid 60 mg oral tablet 04/07/2014 TAKE ONE TABLET BY MOUTH ONCE DAILY lovastatin 40 mg oral tablet 06/12/2014 take 1 tablet by oral route daily Goodrich Thyroid 60 mg oral tablet 08/04/2014 TAKE ONE TABLET BY MOUTH ONCE DAILY baclofen 10 mg oral tablet 08/22/2014 take [...] TABLET BY MOUTH ONCE DAILY AT BEDTIME Goodrich Thyroid 60 mg oral tablet 07/13/2015 TAKE [...] TAKE ONE TABLET BY MOUTH ONCE DAILY Goodrich Thyroid 60 mg oral tablet 07/11/2016 TAKE ONE TABLET BY MOUTH ONCE DAILY lovastatin 40 mg oral tablet 08/08/2016 TAKE ONE TABLET BY MOUTH ONCE DAILY AT BEDTIME Toviaz 8 mg oral tablet extended release 24 hr 09/05/2016 TAKE ONE TABLET BY MOUTH ONCE DAILY Spiriva Respimat 2.5 mcg/actuation inhalation mist 09/19/2016 inhale 2 puffs (5 mcg) by inhalation route once daily at the same time each day Xopenex HFA 45 mcg/actuation inhalation HFA aerosol inhaler 09/19/2016 inhale 2 puffs (90 mcg) by inhalation route every 6 hours pantoprazole 40 mg oral tablet,delayed release (DR/EC) 12/05/2016 TAKE ONE TABLET BY MOUTH ONCE DAILY Premarin 0.3 mg oral tablet 01/09/2017 08/07/2017 take 1 tablet (0.3 mg) by oral route once daily for 30 days duloxetine 60 mg oral capsule,delayed release(DR/EC) 01/30/2017 TAKE ONE CAPSULE BY MOUTH ONCE DAILY furosemide 40 mg oral tablet 03/20/2017 take 1-2 tablets by oral route daily as needed Cymbalta 30 mg oral capsule,delayed release(DR/EC) 03/20/2017 07/18/2017 take 1 capsule (30 mg) by oral route once daily for 30 days Ambien 10 mg oral tablet 05/01/2017 08/29/2017 take 1 tablet (10 mg) by oral route once daily at bedtime for 30 days Xanax 0.25 mg oral tablet 05/01/2017 take 1 tablet by oral route 2 times a day as needed oxycodone 15 mg oral tablet 05/15/2017 take 1 tablet (15 mg) by oral route every 4 hours OxyContin 40 mg oral tablet,oral only,ext.rel.12 hr 05/15/2017 06/14/2017 take 1 tablet (40 mg) by oral route every 12 hours for 30 days ropinirole 4 mg oral tablet 05/15/2017 10/12/2017 take 1 tablet (4 mg) by oral route 1-3 hours before bedtime for 30 days Name Start Date Expiration [...] once daily at bedtime for 30 days Goodrich Thyroid 60 mg oral tablet 12/02/2013 04/01/2014 [...] 2 times per day for 7 days Discontinued Name Start Date [...] by oral route once daily at bedtime [place] 5-325 mg oral tablet 08/22/2014 11/24/2014 take [...] by topical route 2 times per day Xopenex 1.25 mg/3 mL inhalation solution for [...] daily in the morning for 30 days Abilify 10 mg oral tablet 09/23/2016 03/03/2017 take 1 tablet (10 mg) by oral route once daily Amitiza 8 mcg oral capsule 03/03/2017 take 1 capsule (8 mcg) by oral route 2 times per day with food and water Problem List Description Status Onset Hypothyroidism, Acquired Active Allergic rhinitis; due to other allergen Active Chronic Obstructive Pulmonary Disease Active 10/24/2011 Osteoarthritis Active 11/14/2013 Hyperlipidemia, unspecified Active 06/11/2014 Vital Signs Date Time BP-Sys(mm[Hg] BP-Jocelyn(mm[Hg]) HR(bpm) RR(rpm) Temp WT HT HC BMI BSA BMI Percentile O2 Sat(%) 05/15/2017 8:51:00 AM 132 mmHg 76 mmHg [...] 08/25/2015 12:00 AM Decadron, Per 1 Mg [facility]# [id number] Reviewed 08/25/2015 12:00 AM Depo-Medrol, Per 80 Mg [facility]#[address]-70 Reviewed 08/25/2015 12:00 AM Rocephin 1 gram [facility]#9587-0028-88 Reviewed 10/09/2015 12:00 AM COMPLETE CBC W/AUTO DIFF WBC Reviewed 10/09/2015 12:00 AM COMPREHEN METABOLIC PANEL Reviewed 10/09/2015 12:00 AM GLYCOSYLATED HEMOGLOBIN TEST Reviewed 10/09/2015 12:00 AM ASSAY THYROID STIM HORMONE Reviewed 11/03/2015 8:54 AM URINALYSIS AUTO W/O SCOPE Reviewed 11/03/2015 12:[address] HEAD/BRAIN W/O & W/DYE Reviewed 11/17/2015 12:00 AM Rocephin 1 gram [facility]#[id number] Reviewed 08/05/2011 12:00 AM CHEST X-RAY 2VW FRONTAL&LATL Reviewed 12/09/2015 12:00 AM THER/PROPH/DIAG INJ SC/IM Reviewed 12/09/2015 12:00 AM Rocephin 1 gram [facility]#1478-6391-34 Reviewed 11/08/2011 12:00 AM Decadron Inj. per 1mg-[facility] [id number] Reviewed 11/08/2011 12:00 AM Depo-Medrol 80 Mg [facility] [id number] Reviewed 05/20/2016 12:00 AM COMPLETE CBC W/AUTO [...] 04/23/2017 12:00 AM Decadron 4mg Injection Reviewed 10/30/2012 12:00 AM Depo-Medrol 80 Mg Im/C'pancho Reviewed 10/30/2012 12:00 AM Decadron, Per 1 Mg [facility]# [address]-16 Reviewed 10/30/2012 12:00 AM COMPLETE CBC W/AUTO DIFF WBC Reviewed 10/30/2012 12:00 AM COMPREHEN METABOLIC PANEL Reviewed 10/30/2012 12:00 AM LIPID PANEL Reviewed 10/30/2012 12:00 AM ASSAY THYROID STIM HORMONE Reviewed 01/08/2013 12:00 AM Depo-Medrol 80 Mg Im/C'pancho Reviewed 01/08/2013 12:00 AM Decadron, Per 1 Mg [facility]# [id number] Reviewed 01/08/2013 12:00 AM Rocephin 1 gram [facility]#3358-6808-15 Reviewed 01/08/2013 12:00 AM COMPREHEN METABOLIC PANEL Reviewed 01/08/2013 12:00 AM GLYCOSYLATED HEMOGLOBIN TEST Reviewed 01/08/2013 12:00 AM ASSAY THYROID STIM HORMONE Reviewed 01/08/2013 12:00 AM ASSAY OF PARATHORMONE Reviewed 01/08/2013 12:00 AM LIPID PANEL Reviewed 02/27/2013 12:00 AM THER/PROPH/DIAG INJ SC/IM Reviewed 02/27/2013 12:00 AM Decadron, Per 1 Mg [facility]# [address]-85 Reviewed 02/27/2013 12:00 AM Depo-Medrol, Per 80 Mg [facility]#0746-9456-50 Reviewed 03/04/2013 12:00 AM MAMMOGRAM SCREENING Reviewed 03/05/2013 12:00 AM CYTOPATH TBS C/V MANUAL Reviewed 03/05/2013 12:00 AM MAMMOGRAM BOTH BREASTS Reviewed 03/27/2013 12:00 AM THER/PROPH/DIAG INJ SC/IM Reviewed 03/27/2013 12:00 AM Bicillin CR, 1.2 million units [facility]# 20062-752-38 Reviewed 05/10/2013 12:00 AM X-RAY EXAM KNEE [...] 08/09/2013 12:00 AM Decadron, Per 1 Mg [facility]# [address]-22 Reviewed 08/09/2013 12:00 AM Depo-Medrol, Per 80 Mg [facility]#4895-0559-24 Reviewed 08/21/2013 12:00 AM X-RAY EXAM OF [...] Reviewed 03/26/2015 12:00 AM Rocephin 1 gram [facility]#[id number] Reviewed 04/01/2015 12:00 AM COMPLETE CBC W/AUTO DIFF WBC Reviewed 04/01/2015 12:00 AM COMPREHEN METABOLIC PANEL Reviewed 04/01/2015 12:00 AM ASSAY THYROID STIM HORMONE Reviewed 04/01/2015 12:00 AM CHEST X-RAY 2VW FRONTAL&LATL Reviewed 05/07/2015 12:00 AM THER/PROPH/DIAG INJ SC/IM Reviewed 05/07/2015 12:00 AM Decadron injection Reviewed 05/07/2015 12:00 AM Depo-Medrol 40mg Reviewed 05/11/2011 12:00 AM Depo-Medrol 80 Mg [facility] [id number] Reviewed 05/11/2011 12:00 AM Decadron Inj. per 1mg-[facility] [id number] Reviewed Results Summary Date and Description Results [...] 60 TSH 0.960 uIU/mL 02/15/2013 8:55 AM WBC 5.1 RBC 4.78 HGB 12.90 g/dLHCT 41.40 %MCV 87.0 fLMCH 27.0 pgMCHC 31.20 g/dLRDW SD 47 RDW CV 14.90 %MPV 11.10 fLPLT 207 NRBC# 0.00 NRBC% 0.0 %NEUT 63.90 %%LYMP 25.40 %%MONO 8.0 %%EOS 2.30 %%BASO 0.40 %#NEUT 3.26 #LYMP 1.30 #MONO 0.41 #EOS 0.12 #BASO 0.02 MANUAL DIFF NOT IND TRIGLYCERIDES 196.0 mg/dLCHOLESTEROL 213.0 mg/dLHDL 43.0 mg/dLTOT CHOL/HDL 5.0 LDL (CALC) 131.0 mg/dLGLUCOSE 107.0 mg/dLSODIUM 145.0 mmol/LPOTASSIUM 4.30 mmol/ LCHLORIDE 106.0 mmol/LCO2 29.0 mmol/LBUN 17.0 mg/dLCREATININE 0.80 mg/dLSGOT/ AST 20.0 IU/LSGPT/ALT 26.0 IU/LALK PHOS 82.0 IU/LTOTAL PROTEIN 7.10 g/dLALBUMIN 3.90 g/dLTOTAL BILI 0.30 mg/dLCALCIUM 10.30 mg/dLAGE 47 GFR NonAA 76 GFR AA 92 eGFR 60 eGFR AA* 60 TSH 1.230 uIU/mLGLYCOHEMOGLOBIN A1C 6.0 % 06/26/2013 9:40 AM WBC [...] %MCV 85.0 fLMCH 26.20 pgMCHC 30.80 g/dLRDW SD 44 RDW CV 14.10 %MPV 10.90 fLPLT 223 NRBC# 0.00 NRBC% 0.0 %NEUT 68.30 %%LYMP 22.20 %%MONO 7.40 %%EOS 1.70 %%BASO 0.40 %#NEUT 4.79 #LYMP 1.56 #MONO 0.52 #EOS 0.12 #BASO 0.03 MANUAL DIFF NOT IND GLUCOSE 95.0 mg/dLSODIUM 141.0 mmol/LPOTASSIUM 4.0 mmol/LCHLORIDE 103.0 mmol/LCO2 27.0 mmol/LBUN 19.0 mg/dLCREATININE 0.80 mg/dLSGOT/AST 14.0 IU/LSGPT/ALT 16.0 IU/ LALK PHOS 106.0 IU/LTOTAL PROTEIN 7.40 g/dLALBUMIN 4.30 g/dLTOTAL BILI 0.30 mg/ dLCALCIUM 10.0 mg/dLAGE 50 GFR NonAA 75 GFR AA 91 eGFR >60 mL/min/1.73meGFR AA * >60 FREE T4 0.89 TSH 2.160 uIU/mLVITAMIN B12 513.0 pg/mLHemoglobin A1c 6.10 % Estim. Avg Glu (eAG) 128 RPR Non Reactive VITAMIN D 52.40 ng/mLHomocyst(e)ine, Plasma 15.5 Copper, Serum 140.0 ug/dLMethylmalonic Acid, Serum 349 11/28/2015 12:10 PM AChR Binding Abs, Serum <0.03 nmol/LAnti-striation Abs Negative 01/07/2016 12:10 PM WBC 5.4 RBC 4.86 HGB 12.90 g/dLHCT 41.70 %MCV 86.0 fLMCH 26.50 pgMCHC 30.90 g/dLRDW SD 46 RDW CV 14.80 %MPV 11.0 fLPLT 207 NRBC# 0.00 NRBC% 0.0 %NEUT 60.90 %%LYMP 28.0 %%MONO 7.40 %%EOS 2.60 %%BASO 0.70 %#NEUT 3.28 #LYMP 1.51 #MONO 0.40 #EOS 0.14 #BASO 0.04 MANUAL DIFF NOT IND GLUCOSE 101.0 mg/dLSODIUM 144.0 mmol/LPOTASSIUM 4.10 mmol/LCHLORIDE 106.0 mmol/LCO2 28.0 mmol/LBUN 12.0 mg/dLCREATININE 0.90 mg/dLCALCIUM 10.0 mg/dLAGE 50 GFR NonAA 66 GFR AA 80 eGFR >60 mL/min/1.73meGFR AA* >60 05/20/2016 10:32 AM WBC 4.7 RBC 5.48 [...] 91 eGFR >60 mL/min/1.73m eGFR AA* >60 01/23/2017 2:20 PM GLUCOSE 109.0 mg/dLSODIUM 142.0 mmol/LPOTASSIUM 3.70 mmol/ LCHLORIDE 106.0 mmol/LCO2 25.0 mmol/LBUN 10.0 mg/dLCREATININE 0.80 mg/dLCALCIUM 9.60 mg/dLAGE 51 GFR NonAA 75 GFR AA 91 eGFR >60 mL/min/1.73meGFR AA* >60 03/03/2017 7:43 PM SPECIMEN SOURCE: CUTANEOUS ABSCESS LIMB History Of Immunizations Name Date Admin Mfg Name Mfg Code Trade Name Lot# Route Inj Vis Given Vis Pub CVX Tdap 04/26/2012 [employer] SKB ADACEL [id number] Intramuscular Left Arm 04/26/2012 08/19/2008 115 Tdap 03/14/2014 [employer] SKB BOOSTRIX [id number] Intramuscular Left Deltoid 03/14/2014 02/07/2013 115 Influenza 06/22/2015 [employer]. NOV Fluvirin [id number] Intramuscular Left Deltoid 06/23/2015 05/08/2015 140 Pneumococcal 09/16/2015 Not Entered NE Pneumovax 23 Intramuscular Not Entered 11/11/2016 10/02/2017 33 History of Past Illness Name Date of [...] mental state b 2015 8:47AM Bacterial vaginosis b 2015 8:47AM Left shoulder pain Nov 03 2015 8:47AM Memory loss, short term b 2015 8:47AM Sinusitis Nov 17 2015 3:04PM [...] Left Ovarian cyst May 18 2017 1:42PM Payers Insurance Name Company Name Plan Name Plan Number Policy Number Policy Group Number Start Date [employer] [place] [id number] September [facility] Financial Assistance [facility] Financial Alex 40 percent clinic October [employer] [place] [id number] Friday, October 02, 2009 [employer] [place] [id number] November [employer] Self [employer] Fund *INVALID [place] Self Insurance [id number] N/A [facility] Self Insurance Fund *INVALID State Self Insurance [id number] N/A [employer] [place] [id number] July History of Encounters Visit Date Visit Type Provider 05/15/2017 Office visit Sean Marie MD 04/23/2017 Office visit Aurora Martin [employer] 04/14/2017 Office visit Sean Marie MD 03/20/2017 Office visit Sean Marie MD 03/03/2017 Office visit Aurora Martin [employer]INE[employer] 01/09/2017 Office visit Sean Marie MD 01/02/2017 [...] Marie MD 01/16/2016 Office visit Jania Stanley [employer] 01/07/2016 Hospital Michelle Greco MD 12/31/2015 Office visit Sean Marie MD 12/09/2015 Office visit Miguel A Munoz [employer] 11/17/2015 Office visit Sean Marie MD 11/03/2015 Office visit Sean Marie MD 10/09/2015 Office visit 10/09/2015 Office visit Sean Marie MD 08/31/2015 Office visit Sean Marie MD 08/25/2015 Office visit Sean Marie MD 06/05/2015 Office visit Sean Marie MD 05/07/2015 Office visit Amaris Gentile [employer] 05/06/2015 Office visit Kiarra Ramos [employer]ATION ENGINEER 04/01/2015 Office visit 04/01/2015 Office visit Sean Marie MD 04/01/2015 Hospital Michelle Greco MD 03/26/2015 Office visit Sean Marie MD 03/19/2015 Office visit Sean Marie MD 02/13/2015 Office visit Sean Marie MD 01/26/2015 Office visit Leena Haddad [employer]INEER 01/12/2015 Office visit Sean Marie MD 11/24/2014 Office visit Kiarra Ramos [employer]ATION ENGINEER 10/22/2014 Office visit Miguel A Munoz [employer] INTE[employer]ATION ENGINEER 08/22/2014 Office visit Sean Marie MD 08/01/2014 Office visit Sean Marie MD 06/09/2014 Office visit Kiarra Ramos [employer]TE[employer]ATION ENGINEER 03/14/2014 Office visit Leena Haddad [employer] INTE[employer]ATION ENGINEER 02/27/2014 Office visit Leena Haddad [employer] INTEGRATION ENGINEER 12/02/2013 Office visit Sean Marie MD 11/25/2013 Office visit Sean Marie MD 11/14/2013 Office visit Kiarra Ramos [employer]TE[employer]ATION ENGINEER 08/21/2013 Office visit Leena Haddad [employer] INTEGRATION ENGINEER 08/09/2013 Office visit Kiarra Ramos [employer] INTE[employer]ATION ENGINEER 06/26/2013 Hospital Michelle Greco MD 06/26/2013 Office visit Sean Marie MD 06/21/2013 Office visit Kiarra Ramos [employer]TE[employer]ATION ENGINEER 05/31/2013 Office visit Leena Haddad [employer] INTE[employer]ATION ENGINEER 05/10/2013 Office visit Leena Haddad [employer] INTE[employer]ATION ENGINEER 05/03/2013 Office visit Leena Haddad [employer] INTEGRATION ENGINEER 03/27/2013 Office visit Kiarra Richard [employer]TE[employer]ATION ENGINEER 03/05/2013 Office visit Kiarra Ramos [employer] INTE[employer]ATION ENGINEER 02/27/2013 Office visit Kiarra Richard [employer] INTE[employer]ATION ENGINEER 01/08/2013 Office visit Sean Marie MD 10/30/2012 Office visit Sean Marie MD 04/26/2012 Nurse visit Maria Antonia Barakat [employer] 02/07/2012 Office visit Sean Marie MD 02/07/2012 [facility] Marcela Greco MD 12/13/2011 Office visit Sean Marie MD 11/08/2011 Office visit Sean Marie MD 10/24/2011 Office visit Sean Marie MD 08/05/2011 Office visit Sean Marie MD 07/12/2011 Office visit Kiarra Ramos [employer]INEER 05/11/2011 Office visit Sean Marie MD 04/19/2011 [...]
--- NOTE | 2018-07-18 12:12 | Conscious Sedation/ASA ---
Conscious Sedation Pre-Proced Time 12:00 ASA Score 2 For ASA 3 and 4: Consider anesthesia and medical clearance. Also, for patients with a history of failed moderate sedation consider anesthesia. Airway Lungs Heart ASA score ASA 1: a normal healthy patient ASA 2: a patient with a mild systemic disease (mid diabetes, controlled hypertension, obesity ASA 3: a patient with a severe systemic disease that limits activity (angina , COPD, prior Myocardial infarction) ASA 4: a patient with an incapacitating disease that is a constant threat to life (CHF, renal failure) ASA 5: a moribund patient not expected to survive 24 hrs. (ruptured aneurysm) ASA 6: a declared brain patient whose organs are being harvested. For emergent operations, add the letter E after the classification Mallampati Classification Grade 2 Sedation Plan Analgesia, Amnesia, Plan communicated to team members, Discussed options with patient/fam, Discussed risks with patient/fam The patient is an appropriate candidate to undergo the planned procedure, sedation, and anesthesia. The patient immediately re-assessed prior to indication. MATILDE ADAMS MD Jul 18, 2018 12:12 pm
--- NOTE | 2018-07-18 12:12 | Progress Note-Pre Operative ---
Pre-Operative Progress Note H&P Reviewed The H&P was reviewed, patient examined and no changes noted. Date Seen by Provider: Jul 18, 2018 Time Seen by Provider: 12:00 Date H&P Reviewed: Jul 18, 2018 Time H&P Reviewed: 12:00 Pre-Operative Diagnosis: MATILDE DAVIS MD Jul 18, 2018 12:12 pm
--- OUTSIDE RECORDS SUMMARY | 2018-07-18 12:12 | XMS REPORT ---
Author Author Aurora Martin Organization [facility] Address [address] [place], [place] [id number] Care Team Providers Care Administrative Accountant Name Role Phone Aurora Martin PCP Unavailable Sean Marie PreferredProvider Unavailable Allergies [...] TABLET BY MOUTH EVERY DAY AT BEDTIME [place] Thyroid 60 mg oral tablet 04/07/2014 TAKE ONE TABLET BY MOUTH ONCE DAILY lovastatin 40 mg oral tablet 06/12/2014 take 1 tablet by oral route daily [place] Thyroid 60 mg oral tablet 08/04/2014 TAKE [...] TABLET BY MOUTH ONCE DAILY AT BEDTIME [place] Thyroid 60 mg oral tablet 07/13/2015 TAKE ONE TABLET BY MOUTH ONCE DAILY ropinirole 2 mg oral tablet 07/13/2015 TAKE ONE TABLET BY MOUTH ONCE DAILY AT BEDTIME Xopenex 1.25 mg/3 mL inhalation solution for nebulization 08/21/2015 inhale 3 milliliters (1.25 mg) by nebulization route 3 times per day furosemide 40 mg oral tablet 09/21/2015 TAKE ONE TABLET BY MOUTH ONCE DAILY IN THE MORNING NEEDED furosemide 40 mg oral tablet 10/19/2015 TAKE ONE TABLET BY MOUTH ONCE DAILY IN THE MORNING NEEDED lovastatin 40 mg oral tablet 11/02/2015 TAKE ONE TABLET BY MOUTH ONCE DAILY AT BEDTIME pantoprazole 40 mg oral tablet,delayed release (DR/EC) 12/08/2015 TAKE ONE TABLET BY MOUTH ONCE DAILY ropinirole 2 mg oral tablet 06/13/2016 TAKE ONE TABLET BY MOUTH ONCE DAILY AT BEDTIME [place] Thyroid 60 mg oral tablet 07/11/2016 TAKE [...] each day Xanax 0.25 mg oral tablet 09/19/2016 take 1 tablet by oral route 2 times a day as needed Xopenex HFA 45 mcg/actuation inhalation HFA aerosol inhaler 09/19/2016 inhale 2 puffs (90 mcg) by inhalation route every 6 hours pantoprazole 40 mg oral tablet,delayed release (DR/EC) 12/05/2016 TAKE ONE TABLET BY MOUTH ONCE DAILY Ambien 10 mg oral tablet 01/04/2017 05/04/2017 take 1 tablet (10 mg) by oral route once daily at bedtime for 30 days Premarin 0.3 mg oral tablet 01/09/2017 08/07/2017 take 1 tablet (0.3 mg) by oral route once daily for 30 days duloxetine 60 mg oral capsule,delayed release(DR/EC) 01/30/2017 TAKE ONE CAPSULE BY MOUTH ONCE DAILY Bactrim DS 800-160 mg oral tablet 03/03/2017 03/10/2017 take 1 tablet by oral route 2 times per day for 7 days oxycodone 15 mg oral tablet 03/06/2017 take 1 tablet (15 mg) by oral route every 4 hours Name Start Date Expiration Date SIG Comments [...] once daily at bedtime for 30 days [place] Thyroid 60 mg oral tablet 12/02/2013 04/01/2014 [...] daily in the morning for 30 days Cymbalta 60 mg oral capsule,delayed release(DR/EC) 2016 02/04/2017 take 1 capsule (60 mg) by oral route once daily for 30 days Discontinued Name Start Date [...] by oral route once daily at bedtime Leonore 5-325 mg oral tablet 08/22/2014 11/24/2014 take [...] HC BMI BSA BMI Percentile O2 Sat(%) 03/03/2017 5:08:00 PM 122 mmHg 78 mmHg [...] 08/25/2015 12:00 AM Decadron, Per 1 Mg [facility]# [address]-95 Reviewed 08/25/2015 12:00 AM Depo-Medrol, Per 80 Mg [facility]#[address]-92 Reviewed 08/25/2015 12:00 AM Rocephin 1 gram [facility]#4838-0055-55 Reviewed 10/09/2015 12:00 AM COMPLETE CBC W/AUTO DIFF WBC Reviewed 10/09/2015 12:00 AM COMPREHEN METABOLIC PANEL Reviewed 10/09/2015 12:00 AM GLYCOSYLATED HEMOGLOBIN TEST Reviewed 10/09/2015 12:00 AM ASSAY THYROID STIM HORMONE Reviewed 11/03/2015 8:54 AM URINALYSIS AUTO W/O SCOPE Reviewed 11/03/2015 12:[address] HEAD/BRAIN W/O & W/DYE Reviewed 11/17/2015 12:00 AM Rocephin 1 gram [facility]#8955-9404-09 Reviewed 08/05/2011 12:00 AM CHEST X-RAY 2VW FRONTAL&LATL Reviewed 12/09/2015 12:00 AM THER/PROPH/DIAG INJ SC/IM Reviewed 12/09/2015 12:00 AM Rocephin 1 gram [facility]#1166-6332-62 Reviewed 11/08/2011 12:00 AM Decadron Inj. per 1mg-[facility] [id number] Reviewed 11/08/2011 12:00 AM Depo-Medrol 80 Mg [facility] [id number] Reviewed 05/20/2016 12:00 AM COMPLETE CBC W/AUTO [...] AM TDAP VACCINE 7 YRS/> IM Reviewed 03/03/2017 12:00 AM THER/PROPH/DIAG INJ SC/IM Reviewed 03/03/2017 12:00 AM Rocephin 1 gram Injection Reviewed 03/03/2017 12:00 AM CUL BACT XCPT URINE BLOOD/STOOL AEROBIC ISOL Returned 10/30/2012 12:00 AM Depo-Medrol 80 Mg Im/[place] Reviewed 10/30/2012 12:00 AM Decadron, Per 1 Mg [facility]# [address]-58 Reviewed 10/30/2012 12:00 AM COMPLETE CBC W/AUTO DIFF WBC Reviewed 10/30/2012 12:00 AM COMPREHEN METABOLIC PANEL Reviewed 10/30/2012 12:00 AM LIPID PANEL Reviewed 10/30/2012 12:00 AM ASSAY THYROID STIM HORMONE Reviewed 01/08/2013 12:00 AM Depo-Medrol 80 Mg Im/C'pancho Reviewed 01/08/2013 12:00 AM Decadron, Per 1 Mg [facility]# [address]-15 Reviewed 01/08/2013 12:00 AM Rocephin 1 gram [facility]#0651-2916-69 Reviewed 01/08/2013 12:00 AM COMPREHEN METABOLIC PANEL Reviewed 01/08/2013 12:00 AM GLYCOSYLATED HEMOGLOBIN TEST Reviewed 01/08/2013 12:00 AM ASSAY THYROID STIM HORMONE Reviewed 01/08/2013 12:00 AM ASSAY OF PARATHORMONE Reviewed 01/08/2013 12:00 AM LIPID PANEL Reviewed 02/27/2013 12:00 AM THER/PROPH/DIAG INJ SC/IM Reviewed 02/27/2013 12:00 AM Decadron, Per 1 Mg [facility]# [address]-52 Reviewed 02/27/2013 12:00 AM Depo-Medrol, Per 80 Mg [facility]#6834-7445-44 Reviewed 03/04/2013 12:00 AM MAMMOGRAM SCREENING Reviewed 03/05/2013 12:00 AM CYTOPATH TBS C/V MANUAL Reviewed 03/05/2013 12:00 AM MAMMOGRAM BOTH BREASTS Reviewed 03/27/2013 12:00 AM THER/PROPH/DIAG INJ SC/IM Reviewed 03/27/2013 12:00 AM Bicillin CR, 1.2 million units [facility]# 99288-757-78 Reviewed 05/10/2013 12:00 AM X-RAY EXAM KNEE [...] 08/09/2013 12:00 AM Decadron, Per 1 Mg [facility]# [address]-16 Reviewed 08/09/2013 12:00 AM Depo-Medrol, Per 80 Mg [facility]#4843-9797-85 Reviewed 08/21/2013 12:00 AM X-RAY EXAM OF [...] Reviewed 03/26/2015 12:00 AM Rocephin 1 gram [facility]#9388-8976-63 Reviewed 04/01/2015 12:00 AM COMPLETE CBC W/AUTO DIFF WBC Reviewed 04/01/2015 12:00 AM COMPREHEN METABOLIC PANEL Reviewed 04/01/2015 12:00 AM ASSAY THYROID STIM HORMONE Reviewed 04/01/2015 12:00 AM CHEST X-RAY 2VW FRONTAL&LATL Reviewed 05/07/2015 12:00 AM THER/PROPH/DIAG INJ SC/IM Reviewed 05/07/2015 12:00 AM Decadron injection Reviewed 05/07/2015 12:00 AM Depo-Medrol 40mg Reviewed 05/11/2011 12:00 AM Depo-Medrol 80 Mg [facility] [id number] Reviewed 05/11/2011 12:00 AM Decadron Inj. per 1mg-[facility] [id number]-Oqgppmhbu Reviewed Results Summary Date and Description Results [...] Vis Given Vis Pub CVX Tdap 04/26/2012 Glax[employer]ollen[employer] SKB ADACEL [id number] Intramuscular Left Arm 04/26/2012 08/19/2008 115 Tdap 03/14/2014 GlaxPollenizer SKB BOOSTRIX [id number] Intramuscular Left Deltoid 03/14/2014 02/07/2013 115 Influenza 06/22/2015 [facility]. NOV Fluvirin [id number] Intramuscular Left Deltoid 06/23/2015 05/08/2015 140 Pneumococcal 09/16/2015 Not Entered [place] Pneumovax 23 Intramuscular Not Entered 11/11/2016 10/02/2016 33 History of Past Illness Name Date [...] 1:41PM Chest pain Jan 09 2017 1:49PM Cutaneous abscess of limb, unspecified Mar 03 2017 5:13PM Cellulitis of unspecified part of limb Mar 03 2017 5:13PM Payers Insurance Name Company Name Plan Name Plan Number Policy Number Policy Group Number Start Date BCBS [employer] [facility] [id number] September [facility] Financial Assistance [facility] Financial Alex 40 percent clinic October BCBS [employer] [facility] [id number] Friday, October 02, 2009 BCBS [employer] [facility] [id number] November [employer] Self Insurance Fund *INVALID State Self Insurance [id number] N/A [facility] Self Insurance Fund *INVALID State Self Insurance [id number] N/A BCBS [facility] [id number] July History of Encounters Visit Date Visit Type Provider 03/03/2017 Office visit Aurora Martin SECURITIES COUNSELOR 01/09/2017 Office visit Sean Marie MD 01/02/2017 [...] Marie MD 01/16/2016 Office visit Jania Stanley SECURITIES COUNSELOR 01/07/2016 Hospital Michelle Greco MD 12/31/2015 Office visit Sean Marie MD 12/09/2015 Office visit Miguel A Munoz SECURITIES COUNSELOR 11/17/2015 Office visit Sean Marie MD 11/03/2015 Office visit Sean Marie MD 10/09/2015 Office visit 10/09/2015 Office visit Sean Marie MD 08/31/2015 Office visit Sean Marie MD 08/25/2015 Office visit Sean Marie MD 06/05/2015 Office visit Sean Marie MD 05/07/2015 Office visit Amaris Gentile SECURITIES COUNSELOR 05/06/2015 Office visit Kiarra Ramos SECURITIES COUNSELOR 04/01/2015 Office visit 04/01/2015 Office visit Sean Marie MD 04/01/2015 Hospital Michelle Greco MD 03/26/2015 Office visit Sean Marie MD 03/19/2015 Office visit Sean Marie MD 02/13/2015 Office visit Sean Marie MD 01/26/2015 Office visit Leena Haddad SECURITIES COUNSELOR 01/12/2015 Office visit Sean Marie MD 11/24/2014 Office visit Kiarra Ramos SECURITIES COUNSELOR 10/22/2014 Office visit Miguel A Munoz SECURITIES COUNSELOR 08/22/2014 Office visit Sean Marie MD 08/01/2014 Office visit Sean Marie MD 06/09/2014 Office visit Kiarra Ramos SECURITIES COUNSELOR 03/14/2014 Office visit Leena Haddad SECURITIES COUNSELOR 02/27/2014 Office visit Leena Haddad SECURITIES COUNSELOR 12/02/2013 Office visit Sean Marie MD 11/25/2013 Office visit Sean Marie MD 11/14/2013 Office visit Kiarra Ramos SECURITIES COUNSELOR 08/21/2013 Office visit Leena Haddad SECURITIES COUNSELOR 08/09/2013 Office visit Kiarra Ramos SECURITIES COUNSELOR 06/26/2013 [facility] Michelle Greco MD 06/26/2013 Office visit Sean Marie MD 06/21/2013 Office visit Kiarra Ramos SECURITIES COUNSELOR 05/31/2013 Office visit Leena Haddad SECURITIES COUNSELOR 05/10/2013 Office visit Leena Haddad SECURITIES COUNSELOR 05/03/2013 Office visit Leena Haddad SECURITIES COUNSELOR 03/27/2013 Office visit Kiarra Ramos SECURITIES COUNSELOR 03/05/2013 Office visit Kiarra Richard SECURITIES COUNSELOR 02/27/2013 Office visit Kiarra Richard SECURITIES COUNSELOR 01/08/2013 Office visit Sean Marie MD 10/30/2012 Office visit Sean Marie MD 04/26/2012 Nurse visit Maria Antonia Barakat SECURITIES COUNSELOR 02/07/2012 Office visit Sean Marie MD 02/07/2012 [facility] Marcela Greco MD 12/13/2011 Office visit Sean Marie MD 11/08/2011 Office visit Sean Marie MD 10/24/2011 Office visit Sean Marie MD 08/05/2011 Office visit Sean Marie MD 07/12/2011 Office visit Kiarra Ramos SECURITIES COUNSELOR 05/11/2011 Office visit Sean Marie MD 04/19/2011 [...]
[2018-07-18] MEDS ORDERED: ONDANSETRON 4 MG/2 ML (SDV) Z0FRAN IV PRN (12:15)
[2018-07-18] MEDS ORDERED: morphine INJ 10 MG/ML 1ML (SYR OR VIAL) IV PRN (12:15)
--- OUTSIDE RECORDS SUMMARY | 2018-07-18 12:15 | XMS REPORT ---
Author Author Sean Marie [facility] Address [address] [place], [place] [id number] Care Team Providers Care Recycling Operator Name Role Phone Sean Marie PCP Sean [...] route 2 times a day as needed [place] 10-325 mg oral tablet 01/19/2018 take 1 [...] 3 times per day for 30 days clonidine HCl 0.1 mg oral tablet 03/09/2018 04/08/2018 take 1 tablet by oral route 3 times a day as needed for 30 days OxyContin 40 mg oral tablet,oral only,ext.rel.12 hr 03/09/2018 04/08/2018 take 1 tablet (40 mg) by oral route every 12 hours for 30 days Name Start Date Expiration [...] mg) by oral route every 4 hours BOTTOM [employer] LATHE [employer]ER Thyroid 60 mg oral tablet 07/31/2017 07/31/2017 [...] by oral route 2 times per day [place] Thyroid 60 mg oral tablet 12/02/2013 take 1 tablet by oral route daily for 30 days [place] Thyroid 60 mg oral tablet 04/07/2014 TAKE ONE TABLET BY MOUTH ONCE DAILY milk thistle oral 11/24/2014 chromium picolinate oral 06/09/2014 Zofran ODT oral 10/09/2015 Dexilant 60 mg oral capsule,biphase delayed releas 07/09/2014 11/24/2014 TAKE ONE CAPSULE BY MOUTH EVERY DAY [place] Thyroid 60 mg oral tablet 08/04/2014 TAKE [...] by oral route once daily at bedtime [place] 5-325 mg oral tablet 08/22/2014 11/24/2014 take [...] by topical route 2 times per day [place] Thyroid 60 mg oral tablet 07/13/2015 TAKE [...] daily in the morning for 30 days [place] Thyroid 60 mg oral tablet 07/11/2016 08/09/2017 [...] HC BMI BSA BMI Percentile O2 Sat(%) 03/09/2018 8:58:00 AM 151 mmHg 85 mmHg [...] 08/25/2015 12:00 AM Decadron, Per 1 Mg [facility]# [address]-88 Reviewed 08/25/2015 12:00 AM Depo-Medrol, Per 80 Mg [facility]#[address]-22 Reviewed 08/25/2015 12:00 AM Rocephin 1 gram [facility]#6451-6531-55 Reviewed 10/09/2015 12:00 AM COMPLETE CBC W/AUTO DIFF WBC Reviewed 10/09/2015 12:00 AM COMPREHEN METABOLIC PANEL Reviewed 10/09/2015 12:00 AM GLYCOSYLATED HEMOGLOBIN TEST Reviewed 10/09/2015 12:00 AM ASSAY THYROID STIM HORMONE Reviewed 11/03/2015 8:54 AM URINALYSIS AUTO W/O SCOPE Reviewed 11/03/2015 12:[address] HEAD/BRAIN W/O & W/DYE Reviewed 11/17/2015 12:00 AM Rocephin 1 gram [facility]#0089-8909-12 Reviewed 08/05/2011 12:00 AM CHEST X-RAY 2VW FRONTAL&LATL Reviewed 12/09/2015 12:00 AM THER/PROPH/DIAG INJ SC/IM Reviewed 12/09/2015 12:00 AM Rocephin 1 gram [facility]#2730-9235-68 Reviewed 11/08/2011 12:00 AM Decadron Inj. per 1mg-[facility] [id number] Reviewed 11/08/2011 12:00 AM Depo-Medrol 80 Mg [facility] [id number] Reviewed 05/20/2016 12:00 AM COMPLETE CBC W/AUTO [...] 10/30/2012 12:00 AM Decadron, Per 1 Mg [facility]# [address]-76 Reviewed 10/30/2012 12:00 AM COMPLETE CBC W/AUTO [...] 01/08/2013 12:00 AM Decadron, Per 1 Mg [facility]# [address]-11 Reviewed 01/08/2013 12:00 AM Rocephin 1 gram [facility]#3759-5823-16 Reviewed 01/08/2013 12:00 AM COMPREHEN METABOLIC PANEL Reviewed 01/08/2013 12:00 AM GLYCOSYLATED HEMOGLOBIN TEST Reviewed 01/08/2013 12:00 AM ASSAY THYROID STIM HORMONE Reviewed 01/08/2013 12:00 AM ASSAY OF PARATHORMONE Reviewed 01/08/2013 12:00 AM LIPID PANEL Reviewed 02/27/2013 12:00 AM THER/PROPH/DIAG INJ SC/IM Reviewed 02/27/2013 12:00 AM Decadron, Per 1 Mg [facility]# [address]-15 Reviewed 02/27/2013 12:00 AM Depo-Medrol, Per 80 Mg [facility]#3594-4573-65 Reviewed 03/04/2013 12:00 AM MAMMOGRAM SCREENING Reviewed 03/05/2013 12:00 AM CYTOPATH TBS C/V MANUAL Reviewed 03/05/2013 12:00 AM MAMMOGRAM BOTH BREASTS Reviewed 03/27/2013 12:00 AM THER/PROPH/DIAG INJ SC/IM Reviewed 03/27/2013 12:00 AM Bicillin CR, 1.2 million units [facility]# 24580-307-53 Reviewed 05/10/2013 12:00 AM X-RAY EXAM KNEE [...] 08/09/2013 12:00 AM Decadron, Per 1 Mg [facility]# [address]-89 Reviewed 08/09/2013 12:00 AM Depo-Medrol, Per 80 Mg [facility]#0351-2358-59 Reviewed 08/21/2013 12:00 AM X-RAY EXAM OF [...] Reviewed 03/26/2015 12:00 AM Rocephin 1 gram [facility]#5017-8371-67 Reviewed 04/01/2015 12:00 AM COMPLETE CBC W/AUTO DIFF WBC Reviewed 04/01/2015 12:00 AM COMPREHEN METABOLIC PANEL Reviewed 04/01/2015 12:00 AM ASSAY THYROID STIM HORMONE Reviewed 04/01/2015 12:00 AM CHEST X-RAY 2VW FRONTAL&LATL Reviewed 05/07/2015 12:00 AM THER/PROPH/DIAG INJ SC/IM Reviewed 05/07/2015 12:00 AM Decadron injection Reviewed 05/07/2015 12:00 AM Depo-Medrol 40mg Reviewed 05/11/2011 12:00 AM Depo-Medrol 80 Mg [facility] [id number] Reviewed 05/11/2011 12:00 AM Decadron Inj. per 1mg-[facility] [id number]-Jyshxfxti Reviewed Results Summary Date and Description Results [...] Vis Given Vis Pub CVX Tdap 04/26/2012 [employer] SKB ADACEL [id number] Intramuscular Left Arm 04/26/2012 08/19/2008 115 Tdap 03/14/2014 [employer] BOOSTRIX [id number] Intramuscular Left Deltoid 03/14/2014 02/07/2013 115 Influenza 06/22/2015 [employer] Pamela. NOV FLUVIRIN [id number] Intramuscular Left Deltoid 06/23/2015 05/08/2015 140 Pneumococcal 09/16/2015 Not Entered [place] PNEUMOVAX 23 Intramuscular Not Entered 11/11/2016 10/02/2017 33 Influenza 07/07/2017 sanofi pasteur PMC Fluzone Quadrivalent [id number] Intramuscular Left Deltoid 07/07/2017 05/08/2015 150 History [...] 9:02AM Menopausal flushing Mar 09 2018 9:02AM Payers Insurance Name Company Name Plan Name Plan Number Policy Number Policy Group Number Start Date [employer]BS [employer] [place] [id number] N/A [employer] Financial Assistance [employer] Alex 100 PERCENT Tuesday, November 21, 2017 [employer] Financial Assistance [employer] Alex 100 percent Tuesday, November 21, 2017 [employer] [place] [id number] Friday, October 02, 2009 [employer] [place] [id number] November [place] Self Insurance Fund *INVALID [place] Self Insurance [id number] N/A [facility] *INVALID State Self Insurance [id number] N/A [employer] [place] [id number] July [employer] [place] [id number] September History of Encounters Visit Date Visit Type Provider 03/09/2018 Office visit Sean Marie MD 02/28/2018 Office visit Fredis Rico DO 01/29/[address] Laine Siegel MD 01/19/2018 Office visit Sean Marie MD 10/27/2017 Office visit Fredis Rioc DO 10/23/2017 Office visit Sean Marie MD [...] Marie MD 03/03/2017 Office visit Aurora Martin LINE CAMERA OPERATOR 01/09/2017 Office visit Sean Marie MD [...] Marie MD 01/16/2016 Office visit Jania Stanley LINE CAMERA OPERATOR 01/07/2016 Hospital Michelle Greco MD 12/31/2015 Office visit Sean Marie MD 12/09/2015 Office visit Miguel A Munoz LINE CAMERA OPERATOR 11/17/2015 Office visit Sean Marie MD 11/03/2015 Office visit Sean Marie MD 10/09/2015 Office visit 10/09/2015 Office visit Sean Marie MD 08/31/2015 Office visit Sean Marie MD 08/25/2015 Office visit Sean Marie MD 06/05/2015 Office visit Sean Marie MD 05/07/2015 Office visit Amaris Gentiel LINE CAMERA OPERATOR 05/06/2015 Office visit Kiarra Ramos LINE CAMERA OPERATOR 04/01/2015 Office visit 04/01/2015 Office visit Sean Marie MD 04/01/2015 Hospital Michelle Greco MD 03/26/2015 Office visit Sean Marie MD 03/19/2015 Office visit Sean Marie MD 02/13/2015 Office visit Sean Marie MD 01/26/2015 Office visit Leena Haddad LINE CAMERA OPERATOR 01/12/2015 Office visit Sean Marie MD 11/24/2014 Office visit Kiarra Ramos LINE CAMERA OPERATOR 10/22/2014 Office visit Miguel A Munoz LINE CAMERA OPERATOR 08/22/2014 Office visit Sean Marie MD 08/01/2014 Office visit Sean Marie MD 06/09/2014 Office visit Kiarra Ramos LINE CAMERA OPERATOR 03/14/2014 Office visit Leena Haddad LINE CAMERA OPERATOR 02/27/2014 Office visit Leena RodriguezEd Boo LINE CAMERA OPERATOR 12/02/2013 Office visit Sean Marie MD 11/25/2013 Office visit Sean Marie MD 11/14/2013 Office visit Kiarra Ramos LINE CAMERA OPERATOR 08/21/2013 Office visit Leena Haddad LINE CAMERA OPERATOR 08/09/2013 Office visit Kiarra Ramos LINE CAMERA OPERATOR 06/26/2013 Hospital Michelle Greco MD 06/26/2013 Office visit Sean Marie MD 06/21/2013 Office visit Kiarra Ramos LINE CAMERA OPERATOR 05/31/2013 Office visit Leena Haddad LINE CAMERA OPERATOR 05/10/2013 Office visit Leena Haddad LINE CAMERA OPERATOR 05/03/2013 Office visit Leena RodriguezEd Boo LINE CAMERA OPERATOR 03/27/2013 Office visit Kiarra Ramos LINE CAMERA OPERATOR 03/05/2013 Office visit Kiarra Ramos LINE CAMERA OPERATOR 02/27/2013 Office visit Kiarra Ramos LINE CAMERA OPERATOR 01/08/2013 Office visit Sean Marie MD 10/30/2012 Office visit Sean Marie MD 04/26/2012 Nurse visit Maria Antonia Barakat LINE CAMERA OPERATOR 02/07/2012 Office visit Sean Marie MD 02/07/2012 [facility] Michelle Greco MD 12/13/2011 Office visit Saen Marie MD 11/08/2011 Office visit Sean Marie MD 10/24/2011 Office visit Sean Marie MD 08/05/2011 Office visit Sean Marie MD 07/12/2011 Office visit Kiarra Ramos LINE CAMERA OPERATOR 05/11/2011 Office visit Sean Marie MD [...]
--- OUTSIDE RECORDS SUMMARY | 2018-07-18 12:16 | XMS REPORT ---
Author Author Sean Marie [facility] Address [address] [place], [place] [id number] Care Team Providers Care Advertising Account Executive Name Role Phone Sean Marie PCP Unavailable Allergies and Adverse Reactions Name Reaction Notes NO KNOWN DRUG ALLERGIES Albuterol increases heart rate too much Plan of Treatment Planned Activity Comments Planned Date Planned Time Plan/Goal COMPLETE CBC W/AUTO DIFF WBC 01/08/2013 12:00 AM Medications Active Name Start Date Estimated Completion Date SIG Comments aspirin Oral Tablet, Delayed Release (E.C.) 81 mg take 1 tablet (81 mg) by oral route once daily Xopenex Inhalation Solution for Nebulization 1.25 mg/3 mL 08/09/2013 inhale 3 milliliters (1.25 mg) by nebulization route 3 times per day pravastatin oral tablet 20 mg 02/03/2014 TAKE ONE TABLET BY MOUTH EVERY DAY AT BEDTIME Coleman Thyroid oral tablet 60 mg 04/07/2014 TAKE ONE TABLET BY MOUTH ONCE DAILY Zofran ODT oral lovastatin oral tablet 40 mg 06/12/2014 take 1 tablet by oral route daily Coleman Thyroid oral tablet 60 mg 08/04/2014 TAKE ONE TABLET BY MOUTH ONCE DAILY trazodone Oral tablet 150 mg 08/11/2014 11/04/2015 TAKE ONE TABLET BY MOUTH EVERY DAY AT BEDTIME Xanax oral tablet 0.25 mg may take 1 tablet as needed daily baclofen oral tablet 10 mg 08/22/2014 take 1 tablet by oral route 3 times a day as needed lovastatin oral tablet 40 mg 10/06/2014 TAKE ONE TABLET BY MOUTH ONCE DAILY AT BEDTIME Cymbalta oral capsule,delayed release(DR/EC) 60 mg 11/03/2014 10/29/2015 TAKE ONE CAPSULE BY MOUTH EVERY DAY for 90 days lovastatin oral tablet 40 mg 11/10/2014 TAKE ONE TABLET BY MOUTH ONCE DAILY AT BEDTIME trazodone oral tablet 150 mg 11/17/2014 TAKE ONE TABLET BY MOUTH EVERY DAY AT BEDTIME Abilify oral tablet 2 mg Xopenex HFA inhalation HFA aerosol inhaler 45 mcg/actuation 01/12/2015 inhale 2 puffs (90 mcg) by inhalation route every 6 hours Spiriva Respimat inhalation mist 2.5 mcg/actuation 01/12/2015 inhale 2 puffs (5 mcg) by inhalation route once daily at the same time each day baclofen oral tablet 10 mg 02/02/2015 TAKE ONE TABLET BY MOUTH THREE TIMES DAILY NEEDED lovastatin oral tablet 40 mg 02/03/2015 TAKE ONE TABLET BY MOUTH ONCE DAILY AT BEDTIME phentermine oral tablet 37.5 mg take 1 tablet in morning Protonix oral tablet,delayed release (DR/EC) 40 mg 03/19/2015 06/11/2016 take 1 tablet (40 mg) by oral route once daily for 90 days Requip oral tablet 2 mg 03/19/2015 03/13/2016 take 1 tablet by mouth at bedtime. for 90 days Toviaz oral tablet extended release 24 hr 8 mg 03/19/2015 06/11/2016 take 1 tablet (8 mg) by oral route once daily for 90 days Lyrica oral capsule 75 mg 03/19/2015 take 1 capsule (75 mg) by oral route 2 times per day Name Start Date Expiration Date SIG Comments Synthroid Oral Tablet 50 mcg 11/16/2009 02/14/2010 1QD - TAKE ONE TABLET BY MOUTH EVERY DAY Bactrim DS Oral Tablet 160-800 mg 02/08/2010 02/22/2010 take 1 tablet by oral route every 12 hours for 14 days Medrol (Jeronimo) Oral Tablets, Dose Pack 4 mg 03/03/2010 03/13/2010 take as directed for 5 days Levaquin Oral Tablet 500 mg 03/03/2010 03/10/2010 take 1 tablet (500 mg) by oral route once daily for 7 days SYNTHROID 50MCG TAB 50 each 12/13/2010 03/13/2011 1QD - TAKE ONE TABLET BY MOUTH EVERY DAY Flagyl Oral Tablet 500 mg 03/03/2011 03/10/2011 take 1 tablet (500 mg) by oral route every 12 hours for 7 days Lunesta Oral Tablet 3 mg 03/08/2011 03/08/2011 take 1 tablet (3 mg) by oral route once daily at bedtime Requip Oral Tablet 2 mg 04/19/2011 04/13/2012 1HS - TAKE ONE TABLET BY MOUTH AT BEDTIME Zithromax Z-Jeronimo Oral Tablet 250 mg 07/12/2011 07/17/2011 take 2 tablets ( 500 mg) by oral route once daily for 1 day then 1 tablet (250 mg) by oral route once daily for 4 days Levaquin Oral Tablet 500 mg 08/05/2011 08/12/2011 take 1 tablet (500 mg) by oral route once daily for 7 days Tussionex Pennkinetic ER Oral Suspension, Extended Rel 12 hr 8-10 mg/5 mL 08/0508/15/2011 take 5 milliliters by oral route every 12 hours for 10 days Levaquin Oral Tablet 750 mg 10/24/2011 10/31/2011 take 1 tablet by oral route daily for 7 days venlafaxine Oral Capsule, Ext Release 24 hr 150 mg 03/05/2012 06/03/2012 TAKE ONE CAPSULE BY MOUTH EVERY DAY Amoxicillin Oral Capsule 500 mg 10/30/2012 11/09/2012 take 2 capsules by oral route 3 times a day for 5 days Dexilant Oral cap, multiphase delay release 60 mg 01/08/2013 01/03/2014 take 1 capsule (60 mg) by oral route once daily for 90 days prednisone Oral tablet 20 mg 05/03/2013 05/12/2013 take 3 tabs PO x 3 days, then 2 tabs PO x 3 days, and then 1 tab PO x 3 days ropinirole Oral tablet 2 mg 07/01/2013 08/30/2013 TAKE ONE TABLET BY MOUTH AT BEDTIME levothyroxine Oral tablet 75 mcg 05/06/2013 06/05/2013 TAKE ONE TABLET BY MOUTH EVERY DAY loratadine Oral tablet 10 mg 06/17/2013 07/17/2013 TAKE ONE TABLET BY MOUTH EVERY DAY Zithromax Z-Jeronimo Oral tablet 250 mg 07/24/2013 07/29/2013 take 2 tablets ( 500 mg) by oral route once daily for 1 day then 1 tablet (250 mg) by oral route once daily for 4 days Cymbalta oral capsule,delayed release(DR/EC) 60 mg 11/14/2013 11/09/2014 TAKE ONE CAPSULE BY MOUTH EVERY DAY pravastatin oral tablet 20 mg 11/21/2013 02/19/2014 take 1 tablet (20 mg) by oral route once daily at bedtime for 30 days Coleman Thyroid oral tablet 60 mg 12/02/2013 04/01/2014 take 1 tablet by oral route daily for 30 days Naprosyn oral tablet 500 mg 08/01/2014 08/31/2014 take 1 tablet (500 mg) by oral route 2 times per day with food for 30 days Keflex oral capsule 500 mg 10/22/2014 10/29/2014 take 1 capsule (500 mg) by oral route every 12 hours for 7 days Vibramycin oral capsule 100 mg 01/26/2015 02/09/2015 take 1 capsule (100 mg) by oral route every 12 hours for 14 days Discontinued Name Start Date Discontinued Date SIG Comments Lortab Oral Tablet 5-500 mg 02/08/2010 03/03/2010 take 1 tablet by oral route every 4 hours as needed for pain Ambien Oral Tablet 10 mg 02/08/2010 03/08/2011 take 1 tablet (10 mg) by oral route once daily at bedtime AMBIEN 10MG TAB 10 each 01/03/2011 03/08/2011 1HSPRN FOR INSOMNIA - TAKE ONE TABLET BY MOUTH AT BEDTIME NEEDED FOR INSOMNIA Dexilant Oral Cap, Delayed Rel., Multiphasic 60 mg 03/03/2011 03/23/2011 take 1 capsule (60 mg) by oral route once daily for 90 days Seroquel Oral Tablet 50 mg 03/17/2011 03/23/2011 take 1 tablet by oral route once a day (at bedtime) Ambien Oral Tablet 10 mg 04/13/2011 take 1 tablet (10 mg) by oral route once daily at bedtime tramadol Oral Tablet 50 mg 07/12/2011 take 1 tablet by oral route every 6 hours Mobic Oral Tablet 7.5 mg 07/12/2011 take 1 tablet (7.5 mg) by oral route once daily folic acid Oral Tablet 800 mcg 02/27/2013 take 1 tablet (0.8 mg) by oral route once daily niacin Oral Tablet 500 mg 02/27/2013 take 1 tab @ HS triamcinolone acetonide Topical Cream 0.1 % 07/12/2011 05/03/2013 apply a thin layer to the affected area(s) by topical route 2 times per day Alen DM Cough & Chest Oral Liquid 10-200 mg/5 mL 07/12/2011 07/13/2011 take 5 milliliters by oral route 2 times a day chlorpheniramine-hydrocodone Oral Suspension, Extended Rel 12 hr 8-10 mg/5 mL 07/13/2011 02/27/2013 take 5 milliliters by oral route every 12 hours Toviaz Oral Tablet Extended Release 24 hr 8 mg 06/26/2013 take 1 tablet (8 mg) by oral route once daily Lortab Oral tablet 5-500 mg 10/30/2012 06/09/2014 take 1 tablet by oral route 4 times a day as needed Premarin Vaginal Cream 0.625 mg/gram 10/30/2012 05/03/2013 insert 0.5 gram by vaginal route twice weekly Provera Oral tablet 5 mg 03/05/2013 05/03/2013 take 1 tablet (5 mg) by oral route once daily promethazine-codeine Oral Syrup 6.25-10 mg/5 mL 03/28/2013 05/03/2013 take 5 milliliters by oral route every 6 hours as needed, not to exceed 30 mL in 24 hours Singulair oral tablet 10 mg 03/27/2013 11/24/2014 take 1 tablet (10 mg) by oral route once daily in the evening tramadol oral tablet 50 mg 11/14/2013 06/09/2014 take 1 tablet by oral route 3 times a day Estrace vaginal cream 0.01 % (0.1 mg/gram) 11/14/2013 06/09/2014 use vaginally twice a week Lyrica oral capsule 75 mg 11/25/2013 12/02/2013 take 1 capsule (75 mg) by oral route 2 times per day milk thistle oral 11/24/2014 chromium picolinate oral 06/09/2014 Dexilant oral cap, multiphase delay release 60 mg 07/09/2014 11/24/2014 TAKE ONE CAPSULE BY MOUTH EVERY DAY Abilify oral tablet 5 mg 11/24/2014 take 1 tablet (5 mg) by oral route once daily Naprosyn oral tablet 500 mg 08/11/2014 08/22/2014 take 1 tablet (500 mg) by oral route 2 times per day with food for 30 days Zantac oral tablet 150 mg 08/11/2014 03/04/2015 take 1 tablet (150 mg) by oral route 2 times per day for 90 days starting dexilant Dulera Inhalation HFA Aerosol Inhaler 200-5 mcg/actuation 08/11/20142014 inhale 2 puffs by inhalation route 2 times a day Bevier oral tablet 5-325 mg 08/22/2014 11/24/2014 take 1 tablet by oral route every 6 hours as needed for pain Dexilant oral capsule,biphase delayed releas 60 mg 03/05/2015 take 1 capsule (60 mg) by oral route once daily Problem List Description Status Onset Hypothyroidism, Acquired Active Allergic rhinitis; due to other allergen Active Chronic obstructive pulmonary disease Active 10/24/2011 Osteoarthritis Active 11/14/2013 Hyperlipidemia, unspecified Active 06/11/2014 Vital Signs Date Time BP-Sys(mm[Hg] BP-Jocelyn(mm[Hg]) HR(bpm) RR(rpm) Temp WT HT HC BMI BSA BMI Percentile O2 Sat(%) 03/26/2015 3:01:00 PM 124 mmHg 76 mmHg [...] 7 YRS/> IM Reviewed 10/30/2012 12:00 AM COMPLETE CBC W/AUTO DIFF WBC Reviewed 10/30/2012 12:00 AM COMPREHEN METABOLIC PANEL Reviewed 10/30/2012 12:00 AM LIPID PANEL Reviewed 10/30/2012 12:00 AM ASSAY THYROID STIM HORMONE Reviewed 01/08/2013 12:00 AM COMPREHEN METABOLIC PANEL Reviewed 01/08/2013 12:00 AM GLYCOSYLATED HEMOGLOBIN TEST Reviewed 01/08/2013 12:00 AM ASSAY THYROID STIM HORMONE Reviewed 01/08/2013 12:00 AM ASSAY OF PARATHORMONE Reviewed 01/08/2013 12:00 AM LIPID PANEL Reviewed 02/27/2013 12:00 AM THER/PROPH/DIAG INJ SC/IM Reviewed 03/04/2013 12:00 AM MAMMOGRAM SCREENING Returned 03/05/2013 12:00 AM CYTOPATH TBS C/V MANUAL Returned 03/05/2013 12:00 AM MAMMOGRAM BOTH BREASTS Returned 03/27/2013 12:00 AM THER/PROPH/DIAG INJ SC/IM Reviewed 05/10/2013 12:00 AM X-RAY EXAM KNEE 4 OR MORE Returned 06/26/2013 12:00 AM METABOLIC PANEL TOTAL CA Reviewed 06/26/2013 12:00 AM COMPLETE CBC W/AUTO DIFF WBC Reviewed 02/08/2010 12:00 AM COMPLETE CBC W/AUTO DIFF WBC Reviewed 02/08/2010 12:00 AM COMPREHEN METABOLIC PANEL Reviewed 02/08/2010 12:00 AM LIPID PANEL Reviewed 08/09/2013 12:00 AM THER/PROPH/DIAG INJ SC/IM Reviewed 08/21/2013 12:00 AM X-RAY EXAM OF [...] COMPREHEN METABOLIC PANEL Returned 02/27/2014 12:00 AM MYCOPLASMA ANTIBODY Returned [...] Reviewed 06/09/2014 12:00 AM LIPID PANEL Returned 01/12/2015 12:00 AM BREATHING CAPACITY TEST Reviewed 03/03/2011 12:00 AM COMPLETE CBC W/AUTO DIFF WBC Reviewed 03/03/2011 12:00 AM COMPREHEN METABOLIC PANEL Reviewed 03/03/2011 12:00 AM LIPID PANEL Reviewed 03/03/2011 12:00 AM ASSAY THYROID STIM HORMONE Reviewed Results Summary Data and Description Results [...] mg/dLCALCIUM 10.30 mg/dLeGFR 60 TSH 1.230 uIU /mLGLYCOHEMOGLOBIN A1C 6.0 % 06/26/2013 9:40 AM WBC [...] 0.40 mg/ dLCALCIUM 9.80 mg/dLeGFR >60 mL/min/1.73 [id number] 250.0 mg/dLCHOLESTEROL 180.0 mg/dLHDL 39.0 mg/dLLDL (CALC) [...] g/dLTOTAL BILI 0.40 mg/dLCALCIUM 9.90 mg/dLeGFR 60 06/11/2014 5:23 AM TRIGLYCERIDES 244.0 mg/dLCHOLESTEROL 165.0 mg/dLHDL 40.0 mg/ dLLDL (CALC) 76.0 mg/dL History Of Immunizations Name Date Admin Mfg Name Mfg Code Trade Name Lot# Route Inj Vis Given Vis Pub CVX Tdap 04/26/2012 GlaxRed Stamp SKB ADACEL [id number] Intramuscular Left Arm 04/26/2012 08/19/2008 115 Tdap 03/14/2014 GlaxCEGA InnovationsKline SKB BOOSTRIX [id number] Intramuscular Left Deltoid 03/14/2014 02/07/2013 115 History of Past Illness Name Date of Onset Comments Allergic rhinitis; due to other allergen Hypothyroidism, Acquired Otitis Media, Acute Feb 08 2010 11:02AM Cystitis, Acute Feb 08 2010 11:02AM Insomnia, unspecified Feb 08 2010 11:02AM Chronic obstructive pulmonary disease 10/24/2011 Obesity Mar 03 2010 10:54AM Depression [...] 2015 1:13PM Sinusitis Mar 26 2015 3:06PM Payers Insurance Name Company Name Plan Name Plan Number Policy Number Policy Group Number Start Date Bcbs [facility] [id number] September [facility] Financial Assistance [facility] Financial Alex 40 percent clinic October Bcbs [facility] [id number] Tuesday, August 30, 2011 Bcbs [facility] [id number] November State Self Insurance Fund *INVALID State Self Insurance [id number] N /A State Self Insurance Fund *INVALID State Self Insurance [id number] N /A Bcbs [facility] [id number] July History of Encounters Visit Date Visit Type Provider 03/26/2015 Office visit Sean Marie MD 03/19/2015 Office visit Sean Marie MD 02/13/2015 Office visit Sean Marie MD 01/26/2015 Office visit Leena Haddad LOAN REVIEW OFFICER 01/12/2015 Office visit Sean Marie MD 11/24/2014 Office visit Kiarra Ramos LOAN REVIEW OFFICER 10/22/2014 Office visit Miguel A Munoz LOAN REVIEW OFFICER 08/22/2014 Office visit Sean Marie MD 08/01/2014 Office visit Sean Marie MD 06/09/2014 Office visit Kiarra Ramos LOAN REVIEW OFFICER 03/14/2014 Office visit Leena Haddad LOAN REVIEW OFFICER 02/27/2014 Office visit Leena Haddad LOAN REVIEW OFFICER 12/02/2013 Office visit Sean Marie MD 11/25/2013 Office visit Sean Marie MD 11/14/2013 Office visit Kiarra Ramos LOAN REVIEW OFFICER 08/21/2013 Office visit Leena Haddad LOAN REVIEW OFFICER 08/09/2013 Office visit Kiarra Ramos LOAN REVIEW OFFICER 06/26/2013 Office visit Sean Marie MD 06/26/2013 [facility] Michelle Greco MD 06/21/2013 Office visit Kiarra Ramos LOAN REVIEW OFFICER 05/31/2013 Office visit Leena Dunn Boo LOAN REVIEW OFFICER 05/10/2013 Office visit Leena Haddad LOAN REVIEW OFFICER 05/03/2013 Office visit Leena Haddad LOAN REVIEW OFFICER 03/27/2013 Office visit Kiarra Ramos LOAN REVIEW OFFICER 03/05/2013 Office visit Kiarra Ramos LOAN REVIEW OFFICER 02/27/2013 Office visit Kiarra Ramos LOAN REVIEW OFFICER 01/08/2013 Office visit Sean Marie MD 10/30/2012 Office visit Sean Marie MD 04/26/2012 Nurse visit Maria Antonia Barakat LOAN REVIEW OFFICER 02/07/2012 Office visit Sean Marie MD 02/07/2012 [facility] Michelle Greco MD 12/13/2011 Office visit Sean Marie MD 11/08/2011 Office visit Sean Marie MD 10/24/2011 Office visit Sean Marie MD 08/05/2011 Office visit Sean Marie MD 07/12/2011 Office visit Kiarra Ramos LOAN REVIEW OFFICER 05/11/2011 Office visit Sean Marie MD 04/19/2011 Office visit Sean Marie MD 03/17/2011 Office visit Sean Marie MD 03/03/2011 Office visit Sean Marie MD 07/12/2010 Office visit Maggie CH 05/11/2010 Office visit Sean Marie MD 03/15/2010 Office visit Sean Marie MD 03/03/2010 Office visit Sean Marie MD 02/08/2010 Office visit Sean Marie MD 08/21/2009 Voided Sean Marie MD 08/21/2009 Laboratory Sean Marie MD 07/27/2009 Office visit Sean Marie MD 07/06/2009 Nurse visit Sean Marie MD
--- OUTSIDE RECORDS SUMMARY | 2018-07-18 12:18 | XMS REPORT ---
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 Name Role Phone Sean Marie PCP Unavailable [...] TABLET BY MOUTH EVERY DAY AT BEDTIME Junior Thyroid 60 mg oral tablet 04/07/2014 TAKE ONE TABLET BY MOUTH ONCE DAILY lovastatin 40 mg oral tablet 06/12/2014 take 1 tablet by oral route daily Junior Thyroid 60 mg oral tablet 08/04/2014 TAKE [...] mcg) by inhalation route every 6 hours lovastatin 40 mg oral tablet 02/03/2015 TAKE ONE TABLET BY MOUTH ONCE DAILY AT BEDTIME trazodone 150 mg oral tablet take 1/2 tablet at bedtime lovastatin 40 mg oral tablet 05/11/2015 TAKE ONE TABLET BY MOUTH ONCE DAILY AT BEDTIME Abilify 5 mg oral tablet 06/22/2015 TAKE ONE TABLET BY MOUTH ONCE DAILY Junior Thyroid 60 mg oral tablet 07/13/2015 TAKE [...] TAKE ONE TABLET BY MOUTH ONCE DAILY amitriptyline 50 mg oral tablet 05/20/2016 09/17/2016 take 1 tablet (50 mg) by oral route once daily at bedtime for 30 days Spiriva Respimat 2.5 mcg/actuation inhalation mist 05/20/2016 inhale 2 puffs (5 mcg) by inhalation route once daily at the same time each day ropinirole 2 mg oral tablet 06/13/2016 TAKE ONE TABLET BY MOUTH ONCE DAILY AT BEDTIME oxycodone 15 mg oral tablet 06/17/2016 take 1 tablet (15 mg) by oral route every 6 hours Name Start Date Expiration Date SIG [...] once daily at bedtime for 30 days Junior Thyroid 60 mg oral tablet 12/02/2013 04/01/2014 [...] 2 times per day for 14 days Discontinued Name Start Date [...] by topical route 2 times per day Tussin DM Cough and Chest 10-200 mg/5 mL [...] by oral route once daily at bedtime [place] 5-325 mg oral tablet 08/22/2014 11/24/2014 take [...] HC BMI BSA BMI Percentile O2 Sat(%) 06/17/2016 10:55:00 AM 140 mmHg 82 mmHg [...] 08/25/2015 12:00 AM Decadron, Per 1 Mg [facility]# [address]-67 Reviewed 08/25/2015 12:00 AM Depo-Medrol, Per 80 Mg [facility]#[address]-06 Reviewed 08/25/2015 12:00 AM Rocephin 1 gram [facility]#8093-7691-64 Reviewed 10/09/2015 12:00 AM COMPLETE CBC W/AUTO DIFF WBC Reviewed 10/09/2015 12:00 AM COMPREHEN METABOLIC PANEL Reviewed 10/09/2015 12:00 AM GLYCOSYLATED HEMOGLOBIN TEST Reviewed 10/09/2015 12:00 AM ASSAY THYROID STIM HORMONE Reviewed 11/03/2015 8:54 AM URINALYSIS AUTO W/O SCOPE Reviewed 11/03/2015 12:[address] HEAD/BRAIN W/O & W/DYE Reviewed 11/17/2015 12:00 AM Rocephin 1 gram [facility]#9188-0929-40 Reviewed 08/05/2011 12:00 AM CHEST X-RAY 2VW FRONTAL&LATL Reviewed 12/09/2015 12:00 AM THER/PROPH/DIAG INJ SC/IM Reviewed 12/09/2015 12:00 AM Rocephin 1 gram [facility]#1139-2442-92 Reviewed 05/20/2016 12:00 AM COMPLETE CBC W/AUTO DIFF WBC Returned 05/20/2016 12:00 AM COMPREHEN METABOLIC PANEL Returned 05/20/2016 12:00 AM ASSAY THYROID STIM HORMONE Returned 05/20/2016 12:00 AM ASSAY OF TOTAL THYROXINE Returned 12/13/2011 12:00 AM X-RAY EXAM OF FINGER(S) [...] 10/30/2012 12:00 AM Decadron, Per 1 Mg [facility]# [address]-53 Reviewed 10/30/2012 12:00 AM COMPLETE CBC W/AUTO DIFF WBC Reviewed 10/30/2012 12:00 AM COMPREHEN METABOLIC PANEL Reviewed 10/30/2012 12:00 AM LIPID PANEL Reviewed 10/30/2012 12:00 AM ASSAY THYROID STIM HORMONE Reviewed 01/08/2013 12:00 AM Depo-Medrol 80 Mg Im/C'pancho Reviewed 01/08/2013 12:00 AM Decadron, Per 1 Mg [facility]# [address]-02 Reviewed 01/08/2013 12:00 AM Rocephin 1 gram [facility]#3049-2285-92 Reviewed 01/08/2013 12:00 AM COMPREHEN METABOLIC PANEL Reviewed 01/08/2013 12:00 AM GLYCOSYLATED HEMOGLOBIN TEST Reviewed 01/08/2013 12:00 AM ASSAY THYROID STIM HORMONE Reviewed 01/08/2013 12:00 AM ASSAY OF PARATHORMONE Reviewed 01/08/2013 12:00 AM LIPID PANEL Reviewed 02/27/2013 12:00 AM THER/PROPH/DIAG INJ SC/IM Reviewed 02/27/2013 12:00 AM Decadron, Per 1 Mg [facility]# [address]-88 Reviewed 02/27/2013 12:00 AM Depo-Medrol, Per 80 Mg [facility]#6885-3933-64 Reviewed 03/04/2013 12:00 AM MAMMOGRAM SCREENING Returned 03/05/2013 12:00 AM CYTOPATH TBS C/V MANUAL Returned 03/05/2013 12:00 AM MAMMOGRAM BOTH BREASTS Returned 03/27/2013 12:00 AM THER/PROPH/DIAG INJ SC/IM Reviewed 03/27/2013 12:00 AM Bicillin CR, 1.2 million units [facility]# 81220-641-34 Reviewed 05/10/2013 12:00 AM X-RAY EXAM KNEE [...] 08/09/2013 12:00 AM Decadron, Per 1 Mg [facility]# [address]-73 Reviewed 08/09/2013 12:00 AM Depo-Medrol, Per 80 Mg [facility]#4990-1279-85 Reviewed 08/21/2013 12:00 AM X-RAY EXAM OF [...] Reviewed 03/26/2015 12:00 AM Rocephin 1 gram [facility]#5066-9672-19 Reviewed 04/01/2015 12:00 AM COMPLETE CBC W/AUTO DIFF WBC Reviewed 04/01/2015 12:00 AM COMPREHEN METABOLIC PANEL Reviewed 04/01/2015 12:00 AM ASSAY THYROID STIM HORMONE Reviewed 04/01/2015 12:00 AM CHEST X-RAY 2VW FRONTAL&LATL Reviewed 05/07/2015 12:00 AM THER/PROPH/DIAG INJ SC/IM Reviewed 05/07/2015 12:00 AM Decadron injection Reviewed 05/07/2015 12:00 AM Depo-Medrol 40mg Reviewed 05/11/2011 12:00 AM Depo-Medrol 80 Mg [facility] [id number] Reviewed 05/11/2011 12:00 AM Decadron Inj. per 1mg-[facility] [id number] Reviewed Results Summary Data and Description Results [...] 0.40 mg/ dLCALCIUM 9.80 mg/dLeGFR >60 mL/min/1.73 [id number] 250.0 mg/dLCHOLESTEROL 180.0 mg/dLHDL 39.0 mg/dLLDL (CALC) [...] PM AChR Binding Abs, Serum <0.03 nmol/L 01/07/2016 12:10 PM WBC 5.4 RBC 4.86 HGB 12.90 g/dLHCT 41.70 %MCV 86.0 fLMCH 26.50 pgMCHC 30.90 g/dLRDW CV 14.80 %MPV 11.0 fLPLT 207 %NEUT 60.90 %%LYMP 28.0 %%MONO 7.40 %%EOS 2.60 %%BASO 0.70 %#NEUT 3.28 #LYMP 1.51 #MONO 0.40 #EOS 0.14 # BASO 0.04 GLUCOSE 101.0 mg/dLSODIUM 144.0 mmol/LPOTASSIUM 4.10 mmol/LCHLORIDE 106.0 mmol/LCO2 28.0 mmol/LBUN 12.0 mg/dLCREATININE 0.90 mg/dLCALCIUM 10.0 mg/ dLeGFR >60 mL/min/1.73m 05/20/2016 10:32 AM WBC 4.7 RBC 5.48 HGB 14.10 g/dLHCT 45.40 %MCV 83.0 fLMCH 25.70 pgMCHC 31.10 g/dLRDW CV 13.60 %MPV 10.0 fLPLT 234 %NEUT 56.0 %%LYMP 30.30 %%MONO 9.70 %%EOS 3.0 %%BASO 0.60 %#NEUT 2.64 #LYMP 1.43 #MONO 0.46 #EOS 0.14 # BASO 0.03 GLUCOSE 85.0 mg/dLSODIUM 144.0 mmol/LPOTASSIUM 4.30 mmol/LCHLORIDE 105.0 mmol/LCO2 30.0 mmol/LBUN 12.0 mg/dLCREATININE 0.80 mg/dLSGOT/AST 26.0 IU/ LSGPT/ALT 31.0 IU/LALK PHOS 95.0 IU/LTOTAL PROTEIN 7.20 g/dLALBUMIN 4.20 g/ dLTOTAL BILI 0.40 mg/dLCALCIUM 10.10 mg/dLeGFR >60 mL/min/1.73mTSH 2.370 uIU/ mLT4 6.10 ug/dL History Of Immunizations Name Date Admin Mfg Name Mfg Code Trade Name Lot# Route Inj Vis Given Vis Pub CVX Tdap 04/26/2012 [employer] SKB ADACEL [id number] Intramuscular Left Arm 04/26/2012 08/19/2008 115 Tdap 03/14/2014 [employer]ax[employer] SKB BOOSTRIX [id number] Intramuscular Left Deltoid 03/14/2014 02/07/2013 115 Influenza 06/22/2015 [employer]. NOV Fluvirin [id number] Intramuscular Left Deltoid 06/23/2015 05/08/2015 140 History [...] 2016 9:46AM Fibromyalgia Jun 17 2016 10:59AM Payers Insurance Name Company Name Plan Name Plan Number Policy Number Policy Group Number [id number] September [employer] Alex 40 percent clinic October [facility] [id number] Tuesday, August 30, 2011 [facility] [id number] November [facility] Self Insurance Fund *[place] State Self Insurance [id number] N/A [facility] Self Insurance [facility] *INVALID State Self Insurance [id number] N/A BCBS [facility] [id number] July History of Encounters Visit Date Visit Type Provider 06/17/2016 Office visit Sean Marie MD 05/20/2016 Office visit 05/20/2016 Office visit Sean Marie MD 05/16/2016 Hospital Michelle Greco MD 04/01/2016 Office visit Sean Marie MD 02/25/2016 Office visit Sean Marie MD 01/16/2016 Office visit Jania Stanley CENTRAL LAB TECHNICIAN 01/07/2016 Hospital Michelle Greco MD 12/31/2015 Office visit Sean Marie MD 12/09/2015 Office visit Miguel A Munoz CENTRAL LAB TECHNICIAN 11/17/2015 Office visit Sean Marie MD 11/03/2015 Office visit Sean Marie MD 10/09/2015 Office visit 10/09/2015 Office visit Sean Marie MD 08/31/2015 Office visit Sean Marie MD 08/25/2015 Office visit Sean Marie MD 06/05/2015 Office visit Sean Marie MD 05/07/2015 Office visit Amaris Gentile CENTRAL LAB TECHNICIAN 05/06/2015 Office visit Kiarra Ramos CENTRAL LAB TECHNICIAN 04/01/2015 Office visit 04/01/2015 Office visit Sean Marie MD 04/01/2015 Hospital Michelle Greco MD 03/26/2015 Office visit Sean Marie MD 03/19/2015 Office visit Sean Marie MD 02/13/2015 Office visit Sean Marie MD 01/26/2015 Office visit Leena Haddad CENTRAL LAB TECHNICIAN 01/12/2015 Office visit Sean Marie MD 11/24/2014 Office visit Kiarra Ramos CENTRAL LAB TECHNICIAN 10/22/2014 Office visit Miguel A Munoz CENTRAL LAB TECHNICIAN 08/22/2014 Office visit Sean Marie MD 08/01/2014 Office visit Sean Marie MD 06/09/2014 Office visit Kiarra Ramos CENTRAL LAB TECHNICIAN 03/14/2014 Office visit Leena Haddad CENTRAL LAB TECHNICIAN 02/27/2014 Office visit Leena Haddad CENTRAL LAB TECHNICIAN 12/02/2013 Office visit Sean Marie MD 11/25/2013 Office visit Sean Marie MD 11/14/2013 Office visit Kiarra Ramos CENTRAL LAB TECHNICIAN 08/21/2013 Office visit Leena Haddad CENTRAL LAB TECHNICIAN 08/09/2013 Office visit Kiarra Richard CENTRAL LAB TECHNICIAN 06/26/2013 Hospital Michelle Greco MD 06/26/2013 Office visit Sean Marie MD 06/21/2013 Office visit Kiarra Ramos CENTRAL LAB TECHNICIAN 05/31/2013 Office visit Leena NEd Haddad CENTRAL LAB TECHNICIAN 05/10/2013 Office visit Leena RodriguezEd Haddad CENTRAL LAB TECHNICIAN 05/03/2013 Office visit Leena Haddad CENTRAL LAB TECHNICIAN 03/27/2013 Office visit Kiarra Ramos CENTRAL LAB TECHNICIAN 03/05/2013 Office visit Kiarra Ramos CENTRAL LAB TECHNICIAN 02/27/2013 Office visit Kiarra Ramos CENTRAL LAB TECHNICIAN 01/08/2013 Office visit Sean Marie MD 10/30/2012 Office visit Sean Marie MD 04/26/2012 Nurse visit Maria Antonia Barakat CENTRAL LAB TECHNICIAN 02/07/2012 Office visit Sean Marie MD 02/07/2012 [facility] Michelle Greco MD 12/13/2011 Office visit Sean Marie MD 11/08/2011 Office visit Sean Marie MD 10/24/2011 Office visit Sean Marie MD 08/05/2011 Office visit Sean Marie MD 07/12/2011 Office visit Kiarra Ramos CENTRAL LAB TECHNICIAN 05/11/2011 Office visit Sean Marie MD [...]
--- OUTSIDE RECORDS SUMMARY | 2018-07-18 12:21 | XMS REPORT ---
Author Author Sean Marie [facility] Address [address] [place], [place] [id number] Care Team Providers Care German Tutor Name Role Phone Sean Marie PCP Unavailable Sean Marie PreferredProvider Unavailable Allergies and Adverse Reactions Name Reaction Notes Albuterol tachycardia increases heart rate too much Percocet "head crawling" Adhesive Tape Plan of Treatment Planned Activity Comments Planned Date Planned Time Plan/Goal CBC With Auto Differential 06/16/2017 12:00 AM CMP 06/16/2017 12:00 AM Thyroid stimulating hormone (TSH) 06/16/2017 12:00 AM MAGNESIUM. 06/16/2017 12:00 AM CBC With Auto Differential 01/08/2013 12:00 AM EKG (12-lead electrocardiogram) 06/26/2013 12:00 AM EKG (12-lead electrocardiogram) 04/01/2015 12:00 AM Medications Active Name Start Date Estimated Completion Date SIG Comments aspirin 81 mg oral tablet,delayed release (DR/EC) take 1 tablet (81 mg) by oral route once daily pravastatin 20 mg oral tablet 02/03/2014 TAKE ONE TABLET BY MOUTH EVERY DAY AT BEDTIME Mikana Thyroid 60 mg oral tablet 04/07/2014 TAKE ONE TABLET BY MOUTH ONCE DAILY lovastatin 40 mg oral tablet 06/12/2014 take 1 tablet by oral route daily Mikana Thyroid 60 mg oral tablet 08/04/2014 TAKE [...] TABLET BY MOUTH ONCE DAILY AT BEDTIME Mikana Thyroid 60 mg oral tablet 07/13/2015 TAKE [...] TAKE ONE TABLET BY MOUTH ONCE DAILY Mikana Thyroid 60 mg oral tablet 07/11/2016 TAKE [...] mg) by oral route every 4 hours ropinirole 4 mg oral tablet 05/15/2017 10/12/2017 take 1 tablet (4 mg) by oral route 1-3 hours before bedtime for 30 days Flonase Allergy Relief 50 mcg/actuation nasal spray,suspension Breo Ellipta inhalation Singulair oral Zyrtec oral Lamictal 25 mg oral tablet 06/16/2017 1 po ad for a week, then 2 po qd for a week, then 3 po qd for a week, then 4 po qd Name Start Date Expiration Date SIG Comments [...] once daily at bedtime for 30 days Mikana Thyroid 60 mg oral tablet 12/02/2013 04/01/2014 [...] 2 times per day for 7 days OxyContin 40 mg oral tablet,oral only,ext.rel.12 [...] by oral route once daily at bedtime [place] 5-325 mg oral tablet 08/22/2014 11/24/2014 take [...] HC BMI BSA BMI Percentile O2 Sat(%) 06/16/2017 10:22:00 AM 142 mmHg 82 mmHg [...] 12:00 AM Decadron, Per 1 Mg [facility]# [address]-78 Reviewed 08/25/2015 12:00 AM Depo-Medrol, Per 80 Mg [facility]#[address]-83 Reviewed 08/25/2015 12:00 AM Rocephin 1 gram [facility]#0200-1147-14 Reviewed 10/09/2015 12:00 AM COMPLETE CBC W/AUTO DIFF WBC Reviewed 10/09/2015 12:00 AM COMPREHEN METABOLIC PANEL Reviewed 10/09/2015 12:00 AM GLYCOSYLATED HEMOGLOBIN TEST Reviewed 10/09/2015 12:00 AM ASSAY THYROID STIM HORMONE Reviewed 11/03/2015 8:54 AM URINALYSIS AUTO W/O SCOPE Reviewed 11/03/2015 12:[address] HEAD/BRAIN W/O & W/DYE Reviewed 11/17/2015 12:00 AM Rocephin 1 gram [facility]#4719-6013-38 Reviewed 08/05/2011 12:00 AM CHEST X-RAY 2VW FRONTAL&LATL Reviewed 12/09/2015 12:00 AM THER/PROPH/DIAG INJ SC/IM Reviewed 12/09/2015 12:00 AM Rocephin 1 gram [facility]#6511-4855-52 Reviewed 11/08/2011 12:00 AM Decadron Inj. per 1mg-[facility] [id number] Reviewed 11/08/2011 12:00 AM Depo-Medrol 80 Mg [facility] [id number] Reviewed 05/20/2016 12:00 AM COMPLETE CBC W/AUTO [...] 12:00 AM US EXAM PELVIC COMPLETE Returned 10/30/2012 12:00 AM Depo-Medrol 80 Mg Im/C'pancho Reviewed 10/30/2012 12:00 AM Decadron, Per 1 Mg [facility]# [address]-26 Reviewed 10/30/2012 12:00 AM COMPLETE CBC W/AUTO DIFF WBC Reviewed 10/30/2012 12:00 AM COMPREHEN METABOLIC PANEL Reviewed 10/30/2012 12:00 AM LIPID PANEL Reviewed 10/30/2012 12:00 AM ASSAY THYROID STIM HORMONE Reviewed 01/08/2013 12:00 AM Depo-Medrol 80 Mg Im/C'pancho Reviewed 01/08/2013 12:00 AM Decadron, Per 1 Mg [facility]# [address]-60 Reviewed 01/08/2013 12:00 AM Rocephin 1 gram [facility]#0093-4599-24 Reviewed 01/08/2013 12:00 AM COMPREHEN METABOLIC PANEL Reviewed 01/08/2013 12:00 AM GLYCOSYLATED HEMOGLOBIN TEST Reviewed 01/08/2013 12:00 AM ASSAY THYROID STIM HORMONE Reviewed 01/08/2013 12:00 AM ASSAY OF PARATHORMONE Reviewed 01/08/2013 12:00 AM LIPID PANEL Reviewed 02/27/2013 12:00 AM THER/PROPH/DIAG INJ SC/IM Reviewed 02/27/2013 12:00 AM Decadron, Per 1 Mg [facility]# [address]-20 Reviewed 02/27/2013 12:00 AM Depo-Medrol, Per 80 Mg [facility]#9014-5916-55 Reviewed 03/04/2013 12:00 AM MAMMOGRAM SCREENING Reviewed 03/05/2013 12:00 AM CYTOPATH TBS C/V MANUAL Reviewed 03/05/2013 12:00 AM MAMMOGRAM BOTH BREASTS Reviewed 03/27/2013 12:00 AM THER/PROPH/DIAG INJ SC/IM Reviewed 03/27/2013 12:00 AM Bicillin CR, 1.2 million units [facility]# 74353-270-99 Reviewed 05/10/2013 12:00 AM X-RAY EXAM KNEE [...] 12:00 AM Decadron, Per 1 Mg [facility]# [address]-67 Reviewed 08/09/2013 12:00 AM Depo-Medrol, Per 80 Mg [facility]#6159-8222-67 Reviewed 08/21/2013 12:00 AM X-RAY EXAM OF [...] 03/26/2015 12:00 AM Rocephin 1 gram [facility]#1755-8544-53 Reviewed 04/01/2015 12:00 AM COMPLETE CBC W/AUTO DIFF WBC Reviewed 04/01/2015 12:00 AM COMPREHEN METABOLIC PANEL Reviewed 04/01/2015 12:00 AM ASSAY THYROID STIM HORMONE Reviewed 04/01/2015 12:00 AM CHEST X-RAY 2VW FRONTAL&LATL Reviewed 05/07/2015 12:00 AM THER/PROPH/DIAG INJ SC/IM Reviewed 05/07/2015 12:00 AM Decadron injection Reviewed 05/07/2015 12:00 AM Depo-Medrol 40mg Reviewed 05/11/2011 12:00 AM Depo-Medrol 80 Mg [facility] [id number] Reviewed 05/11/2011 12:00 AM Decadron Inj. per 1mg-[facility] [id number] Reviewed Results Summary Date and Description Results [...] Vis Given Vis Pub CVX Tdap 04/26/2012 [employer] SKB ADACEL [id number] Intramuscular Left Arm 04/26/2012 08/19/2008 115 Tdap 03/14/2014 [employer] SKB BOOSTRIX [id number] Intramuscular Left Deltoid 03/14/2014 02/07/2013 115 Influenza 06/22/2015 [employer] Pamela. NOV Fluvirin [id number] Intramuscular Left Deltoid 06/23/2015 05/08/2015 140 Pneumococcal [...] 2017 10:24AM Depression Jun 16 2017 10:24AM Payers Insurance Name Company Name Plan Name Plan Number Policy Number Policy Group Number Start Date [employer] [facility] [place] [id number] September [employer] Assistance [employer] Alex 40 percent clinic October [employer] [facility] [place] [id number] Friday, October 02, 2009 [employer] [place] [id number] November [employer] Self Insurance Fund *INVALID State Self Insurance [id number] N/A [employer] Self Insurance Fund *[place] State Self Insurance [id number] N/A [employer]BS [employer] [place] [id number] July History of Encounters Visit Date Visit Type Provider 06/16/2017 Office visit Sean Marie MD 05/15/2017 Office visit Sean Marie MD 04/23/2017 Office visit Aurora Martin TRANSITIONS MANAGER 04/14/2017 Office visit Sean Marie MD 03/20/2017 Office visit Sean Marie MD 03/03/2017 Office visit Aurora Martin TRANSITIONS MANAGER 01/09/2017 Office visit Sean Marie MD 01/02/2017 [...] Marie MD 01/16/2016 Office visit Jania Stanley TRANSITIONS MANAGER 01/07/2016 [facility] Michelle Greco MD 12/31/2015 Office visit Sean Marie MD 12/09/2015 Office visit Miguel A Munoz TRANSITIONS MANAGER 11/17/2015 Office visit Sean Marie MD 11/03/2015 Office visit Sean Marie MD 10/09/2015 Office visit 10/09/2015 Office visit Sean Marie MD 08/31/2015 Office visit Sean Marie MD 08/25/2015 Office visit Sean Marie MD 06/05/2015 Office visit Sean Marie MD 05/07/2015 Office visit Amaris Gentile TRANSITIONS MANAGER 05/06/2015 Office visit Kiarra Ramos TRANSITIONS MANAGER 04/01/2015 Office visit 04/01/2015 Office visit Sean Marie MD 04/01/2015 Hospital Michelle Greco MD 03/26/2015 Office visit Sean Marie MD 03/19/2015 Office visit Sean Marie MD 02/13/2015 Office visit Sean Marie MD 01/26/2015 Office visit Leena Haddad TRANSITIONS MANAGER 01/12/2015 Office visit Sean Marie MD 11/24/2014 Office visit Kiarra Ramos TRANSITIONS MANAGER 10/22/2014 Office visit Miguel A Munoz TRANSITIONS MANAGER 08/22/2014 Office visit Sean Marie MD 08/01/2014 Office visit Sean Marie MD 06/09/2014 Office visit Kiarra Ramos TRANSITIONS MANAGER 03/14/2014 Office visit Leena Haddad TRANSITIONS MANAGER 02/27/2014 Office visit Leena Haddad TRANSITIONS MANAGER 12/02/2013 Office visit Sean Marie MD 11/25/2013 Office visit Sean Marie MD 11/14/2013 Office visit Kiarra Ramos TRANSITIONS MANAGER 08/21/2013 Office visit Leena Haddad TRANSITIONS MANAGER 08/09/2013 Office visit Kiarra Ramos TRANSITIONS MANAGER 06/26/2013 Hospital Michelle Greco MD 06/26/2013 Office visit Sean Marie MD 06/21/2013 Office visit Kiarra Ramos TRANSITIONS MANAGER 05/31/2013 Office visit Leena Haddad TRANSITIONS MANAGER 05/10/2013 Office visit Leena Haddad TRANSITIONS MANAGER 05/03/2013 Office visit Leena Haddad TRANSITIONS MANAGER 03/27/2013 Office visit Kiarra Ramos TRANSITIONS MANAGER 03/05/2013 Office visit Kiarra Ramos TRANSITIONS MANAGER 02/27/2013 Office visit Kiarra Ramos TRANSITIONS MANAGER 01/08/2013 Office visit Sean Marie MD 10/30/2012 Office visit Sean Marie MD 04/26/2012 Nurse visit Maria Antonia Barakat TRANSITIONS MANAGER 02/07/2012 Office visit Sean Marie MD [...] Sean Marie MD 02/08/2010 Office visit Sean aMrie MD 08/21/2009 Laboratory Sean Marie MD 08/21/2009 Voided Sean Marie MD 07/27/2009 Office visit Sean Marie MD 07/06/2009 Nurse visit Sean Marie MD
--- OUTSIDE RECORDS SUMMARY | 2018-07-18 12:23 | XMS REPORT ---
Author Author Sean Marie [facility] Address [address] [place], [place] [id number] Care Team Providers Care Upholstery Cutter Name Role Phone Sean Marie PCP [...] TABLET BY MOUTH EVERY DAY AT BEDTIME [place] Thyroid 60 mg oral tablet 04/07/2014 TAKE ONE TABLET BY MOUTH ONCE DAILY lovastatin 40 mg oral tablet 06/12/2014 take 1 tablet by oral route daily [place] Thyroid 60 mg oral tablet 08/04/2014 TAKE [...] TAKE ONE TABLET BY MOUTH ONCE DAILY [place] Thyroid 60 mg oral tablet 07/13/2015 TAKE [...] TABLET BY MOUTH ONCE DAILY AT BEDTIME Movantik 25 mg oral tablet 07/01/2016 10/29/2016 take 1 tablet (25 mg) by oral route once daily in the morning for 30 days oxycodone 15 mg oral tablet 07/01/2016 take 1 tablet (15 mg) by oral [...] once daily at bedtime for 30 days [place] Thyroid 60 mg oral tablet 12/02/2013 04/01/2014 [...] by oral route once daily at bedtime [place] 5-325 mg oral tablet 08/22/2014 11/24/2014 take [...] HC BMI BSA BMI Percentile O2 Sat(%) 07/01/2016 8:25:00 AM 146 mmHg 78 mmHg [...] AM Decadron, Per 1 Mg [facility]# [address]-32 Reviewed 08/25/2015 12:00 AM Depo-Medrol, Per 80 Mg [facility]#[address]-54 Reviewed 08/25/2015 12:00 AM Rocephin 1 gram [facility]#4288-6737-25 Reviewed 10/09/2015 12:00 AM COMPLETE CBC W/AUTO DIFF WBC Reviewed 10/09/2015 12:00 AM COMPREHEN METABOLIC PANEL Reviewed 10/09/2015 12:00 AM GLYCOSYLATED HEMOGLOBIN TEST Reviewed 10/09/2015 12:00 AM ASSAY THYROID STIM HORMONE Reviewed 11/03/2015 8:54 AM URINALYSIS AUTO W/O SCOPE Reviewed 11/03/2015 12:[address] HEAD/BRAIN W/O & W/DYE Reviewed 11/17/2015 12:00 AM Rocephin 1 gram [facility]#6540-6850-95 Reviewed 08/05/2011 12:00 AM CHEST X-RAY 2VW FRONTAL&LATL Reviewed 12/09/2015 12:00 AM THER/PROPH/DIAG INJ SC/IM Reviewed 12/09/2015 12:00 AM Rocephin 1 gram [facility]#9495-8422-91 Reviewed 05/20/2016 12:00 AM COMPLETE CBC W/AUTO [...] AM Decadron, Per 1 Mg [facility]# [address]-07 Reviewed 10/30/2012 12:00 AM COMPLETE CBC W/AUTO DIFF WBC Reviewed 10/30/2012 12:00 AM COMPREHEN METABOLIC PANEL Reviewed 10/30/2012 12:00 AM LIPID PANEL Reviewed 10/30/2012 12:00 AM ASSAY THYROID STIM HORMONE Reviewed 01/08/2013 12:00 AM Depo-Medrol 80 Mg Im/C'pancho Reviewed 01/08/2013 12:00 AM Decadron, Per 1 Mg [facility]# [address]-03 Reviewed 01/08/2013 12:00 AM Rocephin 1 gram [facility]#0261-3820-94 Reviewed 01/08/2013 12:00 AM COMPREHEN METABOLIC PANEL Reviewed 01/08/2013 12:00 AM GLYCOSYLATED HEMOGLOBIN TEST Reviewed 01/08/2013 12:00 AM ASSAY THYROID STIM HORMONE Reviewed 01/08/2013 12:00 AM ASSAY OF PARATHORMONE Reviewed 01/08/2013 12:00 AM LIPID PANEL Reviewed 02/27/2013 12:00 AM THER/PROPH/DIAG INJ SC/IM Reviewed 02/27/2013 12:00 AM Decadron, Per 1 Mg [facility]# [address]-55 Reviewed 02/27/2013 12:00 AM Depo-Medrol, Per 80 Mg [facility]#7149-1454-21 Reviewed 03/04/2013 12:00 AM MAMMOGRAM SCREENING Returned 03/05/2013 12:00 AM CYTOPATH TBS C/V MANUAL Returned 03/05/2013 12:00 AM MAMMOGRAM BOTH BREASTS Returned 03/27/2013 12:00 AM THER/PROPH/DIAG INJ SC/IM Reviewed 03/27/2013 12:00 AM Bicillin CR, 1.2 million units [facility]# 45142-190-17 Reviewed 05/10/2013 12:00 AM X-RAY EXAM KNEE [...] AM Decadron, Per 1 Mg [facility]# [address]-31 Reviewed 08/09/2013 12:00 AM Depo-Medrol, Per 80 Mg [facility]#0952-3270-56 Reviewed 08/21/2013 12:00 AM X-RAY EXAM OF [...] 03/26/2015 12:00 AM Rocephin 1 gram [facility]#5147-6597-00 Reviewed 04/01/2015 12:00 AM COMPLETE CBC W/AUTO DIFF WBC Reviewed 04/01/2015 12:00 AM COMPREHEN METABOLIC PANEL Reviewed 04/01/2015 12:00 AM ASSAY THYROID STIM HORMONE Reviewed 04/01/2015 12:00 AM CHEST X-RAY 2VW FRONTAL&LATL Reviewed 05/07/2015 12:00 AM THER/PROPH/DIAG INJ SC/IM Reviewed 05/07/2015 12:00 AM Decadron injection Reviewed 05/07/2015 12:00 AM Depo-Medrol 40mg Reviewed 05/11/2011 12:00 AM Depo-Medrol 80 Mg [facility] [id number] Reviewed 05/11/2011 12:00 AM Decadron Inj. per 1mg-[facility] [id number] Reviewed Results Summary Data and Description Results [...] 0.40 mg/ dLCALCIUM 9.80 mg/dLeGFR >60 mL/min/1.73 [id number] 250.0 mg/dLCHOLESTEROL 180.0 mg/dLHDL 39.0 mg/dLLDL (CALC) [...] Vis Given Vis Pub CVX Tdap 04/26/2012 [employer] SKB ADACEL [id number] Intramuscular Left Arm 04/26/2012 08/19/2008 115 Tdap 03/14/2014 [employer] BOOSTRIX [id number] Intramuscular Left Deltoid 03/14/2014 02/07/2013 115 Influenza 06/22/2015 [employer] NOV Fluvirin [id number] Intramuscular Left Deltoid 06/23/2015 05/08/2015 140 History [...] Left Lower Hematoma Jul 01 2016 8:25AM Payers Insurance Name Company Name Plan Name Plan Number Policy Number Policy Group Number Start Date [employer] [place] [id number] September [facility] Financial Assistance [facility] Financial Alex 40 percent clinic October [employer] [place] [id number] Friday, October 02, 2009 [employer] [place] [id number] November [employer] Self Insurance Fund *INVALID State Self Insurance [id number] N/A [employer] Self Insurance Fund *INVALID State Self Insurance [id number] N/A [employer] [place] [id number] July History of Encounters Visit Date Visit Type Provider 07/01/2016 Office visit Sean Marie MD 06/17/2016 Office visit Sean Marie MD 05/20/2016 Office visit 05/20/2016 Office visit Sean Marie MD 05/16/2016 [facility] Michelle Greco MD 04/01/2016 Office visit Sean Marie MD 02/25/2016 Office visit Sean Marie MD 01/16/2016 Office visit Jania Stanley FLY WINDER 01/07/2016 [facility] MD 12/31/2015 Office visit Sean Marie MD 12/09/2015 Office visit Miguel A Munoz FLY WINDER 11/17/2015 Office visit Sean Marie MD 11/03/2015 Office visit Sean Marie MD 10/09/2015 Office visit 10/09/2015 Office visit Sean Marie MD 08/31/2015 Office visit Sean Marie MD 08/25/2015 Office visit Sean Marie MD 06/05/2015 Office visit Sean Marie MD 05/07/2015 Office visit Amaris Gentile FLY WINDER 05/06/2015 Office visit Kiarra Ramos FL[facility] WINDER 04/01/2015 Office visit 04/01/2015 Office visit Sean Marie MD 04/01/2015 Hospital Michelle Greco MD 03/26/2015 Office visit Sean Marie MD 03/19/2015 Office visit Sean Marie MD 02/13/2015 Office visit Sean Marie MD 01/26/2015 Office visit Leena Haddad FL[employer] WINDER 01/12/2015 Office visit Sean Marie MD 11/24/2014 Office visit Kiarra Ramos FL[employer] WINDER 10/22/2014 Office visit Miguel A Munoz FL[employer] WINDER 08/22/2014 Office visit Sean Marie MD 08/01/2014 Office visit Sean Marie MD 06/09/2014 Office visit Kiarra Ramos FL[employer] WINDER 03/14/2014 Office visit Leenaallison Haddad FL[employer] WINDER 02/27/2014 Office visit Leena Haddad FLY WINDER 12/02/2013 Office visit Sean Marie MD 11/25/2013 Office visit Sean Marie MD 11/14/2013 Office visit Kiarra Ramos FL[employer] WINDER 08/21/2013 Office visit Leena Dunn Boo FLY WINDER 08/09/2013 Office visit Kiarra Ramos FLY WINDER 06/26/2013 Hospital [facility] Greco MD 06/26/2013 Office visit Sean Marie MD 06/21/2013 Office visit Kiarra Ramso FLY WINDER 05/31/2013 Office visit Leena Haddad FLY WINDER 05/10/2013 Office visit Leena Haddad FLY WINDER 05/03/2013 Office visit Leena Haddad FLY WINDER 03/27/2013 Office visit Kiarra Ramos FLY WINDER 03/05/2013 Office visit Kiarra Ramos FLY WINDER 02/27/2013 Office visit Kiarra Ramos FLY WINDER 01/08/2013 Office visit Sean Marie MD 10/30/2012 Office visit Sean Marie MD 04/26/2012 Nurse visit Maria Antonia Barakat FLY WINDER 02/07/2012 Office visit Sean Marie MD 02/07/2012 [facility] Michelle Greco MD 12/13/2011 Office visit Sean Marie MD 11/08/2011 Office visit Sean Marie MD 10/24/2011 Office visit Sean Marie MD 08/05/2011 Office visit Sean Marie MD 07/12/2011 Office visit Kiarra Ramos FLY WINDER 05/11/2011 Office visit Sean Marie MD 04/19/2011 [...]
--- OUTSIDE RECORDS SUMMARY | 2018-07-18 12:25 | XMS REPORT ---
Author Author Sean Marie [facility] Address [address] [place], [place] [address] Care Team Providers Care Health Services Coordinator Name Role Phone Sean Marie PCP Sean Marie PreferredProvider Allergies and Adverse Reactions Name Reaction Notes Albuterol tachycardia increases heart rate too much Percocet "head crawling" Adhesive Tape Plan of Treatment Planned Activity Comments Planned Date Planned Time Plan/Goal Mammography; bilateral 11/13/2017 12:00 AM CBC With Auto Differential 01/19/2018 12:00 AM CMP 01/19/2018 12:00 AM DOMINGA W/REFLEX 01/19/2018 12:00 AM Rheumatoid factor screening test 01/19/2018 12:00 AM CBC With Auto Differential 01/08/2013 [...] TAKE ONE CAPSULE BY MOUTH ONCE DAILY Xarelto 20 mg oral tablet take 1 tablet (20 mg) by oral route once daily with the evening meal Xanax 0.25 mg oral tablet 09/11/2017 take 1 tablet by oral route 2 times a day as needed gabapentin 300 mg oral capsule 01/09/2018 TAKE ONE CAPSULE BY MOUTH IN THE MORNING AND TWO AT BEDTIME [place] 10-325 mg oral tablet 01/19/2018 take 1 tablet by oral route every 6 hours as needed for pain Abilify 5 mg oral tablet 01/19/2018 take 1 tablet (5 mg) by oral route once daily Name Start Date Expiration Date SIG Comments [...] mg) by oral route every 4 hours [employer] Thyroid 60 mg oral tablet 07/31/2017 07/31/2017 TAKE ONE TABLET BY MOUTH ONCE DAILY Nuvigil 150 mg oral tablet 08/28/2017 12/26/2017 take 1 tablet (150 mg) by oral route once daily in the morning for 30 days Toviaz 8 mg oral [...] by oral route 2 times per day [place] Thyroid 60 mg oral tablet 12/02/2013 take 1 tablet by oral route daily for 30 days [place] Thyroid 60 mg oral tablet 04/07/2014 TAKE ONE TABLET BY MOUTH ONCE DAILY milk thistle oral 11/24/2014 chromium picolinate oral 06/09/2014 Zofran ODT oral 10/09/2015 Dexilant 60 mg oral capsule,biphase delayed releas 07/09/2014 11/24/2014 TAKE ONE CAPSULE BY MOUTH EVERY DAY [place] Thyroid 60 mg oral tablet 08/04/2014 TAKE [...] by oral route once daily at bedtime [place] 5-325 mg oral tablet 08/22/2014 11/24/2014 take [...] by topical route 2 times per day [place] Thyroid 60 mg oral tablet 07/13/2015 TAKE [...] daily in the morning for 30 days [place] Thyroid 60 mg oral tablet 07/11/2016 08/09/2017 [...] in the abdomen, thigh, or upper arm Problem List Description Status Onset Hypothyroidism, Acquired Active Allergic rhinitis; due to other allergen Active Chronic Obstructive Pulmonary Disease Active 10/24/2011 Osteoarthritis Active 11/14/2013 Hyperlipidemia, unspecified Active 06/11/2014 Vital Signs Date Time BP-Sys(mm[Hg] BP-Jocelyn(mm[Hg]) HR(bpm) RR(rpm) Temp WT HT HC BMI BSA BMI Percentile O2 Sat(%) 10/27/2017 9:06:00 AM 130 mmHg 75 mmHg [...] Ordered Description Order Status 08/25/2015 12:00 AM Decadtamir, Per 1 Mg [facility]# [address]-25 Reviewed 08/25/2015 12:00 AM Depo-Medrol, Per 80 Mg [facility]#[address]-66 Reviewed 08/25/2015 12:00 AM Rocephin 1 gram [facility]#6010-3158-74 Reviewed 10/09/2015 12:00 AM COMPLETE CBC W/AUTO DIFF WBC Reviewed 10/09/2015 12:00 AM COMPREHEN METABOLIC PANEL Reviewed 10/09/2015 12:00 AM GLYCOSYLATED HEMOGLOBIN TEST Reviewed 10/09/2015 12:00 AM ASSAY THYROID STIM HORMONE Reviewed 11/03/2015 8:54 AM URINALYSIS AUTO W/O SCOPE Reviewed 11/03/2015 12:[address] HEAD/BRAIN W/O & W/DYE Reviewed 11/17/2015 12:00 AM Rocephin 1 gram [facility]#4487-0310-93 Reviewed 08/05/2011 12:00 AM CHEST X-RAY 2VW FRONTAL&LATL Reviewed 12/09/2015 12:00 AM THER/PROPH/DIAG INJ SC/IM Reviewed 12/09/2015 12:00 AM Rocephin 1 gram [facility]#0808-1608-21 Reviewed 11/08/2011 12:00 AM Decadron Inj. per 1mg-[facility] [id number] Reviewed 11/08/2011 12:00 AM Depo-Medrol 80 Mg [facility] [id number] Reviewed 05/20/2016 12:00 AM COMPLETE CBC W/AUTO [...] 12:00 AM Decadron, Per 1 Mg [facility]# [address]-29 Reviewed 10/30/2012 12:00 AM COMPLETE CBC W/AUTO DIFF WBC Reviewed 10/30/2012 12:00 AM COMPREHEN METABOLIC PANEL Reviewed 10/30/2012 12:00 AM LIPID PANEL Reviewed 10/30/2012 12:00 AM ASSAY THYROID STIM HORMONE Reviewed 01/08/2013 12:00 AM Depo-Medrol 80 Mg Im/C'pancho Reviewed 01/08/2013 12:00 AM Decadron, Per 1 Mg [facility]# [address]-52 Reviewed 01/08/2013 12:00 AM Rocephin 1 gram [facility]#9269-4115-32 Reviewed 01/08/2013 12:00 AM COMPREHEN METABOLIC PANEL Reviewed 01/08/2013 12:00 AM GLYCOSYLATED HEMOGLOBIN TEST Reviewed 01/08/2013 12:00 AM ASSAY THYROID STIM HORMONE Reviewed 01/08/2013 12:00 AM ASSAY OF PARATHORMONE Reviewed 01/08/2013 12:00 AM LIPID PANEL Reviewed 02/27/2013 12:00 AM THER/PROPH/DIAG INJ SC/IM Reviewed 02/27/2013 12:00 AM Decadron, Per 1 Mg [facility]# [address]-39 Reviewed 02/27/2013 12:00 AM Depo-Medrol, Per 80 Mg [facility]#9141-0437-07 Reviewed 03/04/2013 12:00 AM MAMMOGRAM SCREENING Reviewed 03/05/2013 12:00 AM CYTOPATH TBS C/V MANUAL Reviewed 03/05/2013 12:00 AM MAMMOGRAM BOTH BREASTS Reviewed 03/27/2013 12:00 AM THER/PROPH/DIAG INJ SC/IM Reviewed 03/27/2013 12:00 AM Bicillin CR, 1.2 million units [facility]# 32628-336-13 Reviewed 05/10/2013 12:00 AM X-RAY EXAM KNEE [...] 12:00 AM Decadron, Per 1 Mg [facility]# [address]-50 Reviewed 08/09/2013 12:00 AM Depo-Medrol, Per 80 Mg [facility]#0893-8652-06 Reviewed 08/21/2013 12:00 AM X-RAY EXAM OF [...] 03/26/2015 12:00 AM Rocephin 1 gram [facility]#6936-7833-66 Reviewed 04/01/2015 12:00 AM COMPLETE CBC W/AUTO DIFF WBC Reviewed 04/01/2015 12:00 AM COMPREHEN METABOLIC PANEL Reviewed 04/01/2015 12:00 AM ASSAY THYROID STIM HORMONE Reviewed 04/01/2015 12:00 AM CHEST X-RAY 2VW FRONTAL&LATL Reviewed 05/07/2015 12:00 AM THER/PROPH/DIAG INJ SC/IM Reviewed 05/07/2015 12:00 AM Decadron injection Reviewed 05/07/2015 12:00 AM Depo-Medrol 40mg Reviewed 05/11/2011 12:00 AM Depo-Medrol 80 Mg [facility] [id number] Reviewed 05/11/2011 12:00 AM Decadron Inj. per 1mg-[facility] [id number] Reviewed Results Summary Date and Description Results [...] Vis Given Vis Pub CVX Tdap 04/26/2012 [email or web address] SKB ADACEL [id number] Intramuscular Left Arm 04/26/2012 08/19/2008 115 Tdap 03/14/2014 [email or web address] SKB BOOSTRIX [id number] Intramuscular Left Deltoid 03/14/2014 02/07/2013 115 Influenza 06/22/2015 [employer] NOV FLUVIRIN [id number] Intramuscular Left Deltoid 06/23/2015 05/08/2015 140 Pneumococcal 09/16/2015 Not Entered [place] PNEUMOVAX 23 Intramuscular Not Entered 11/11/2016 10/02/2017 33 Influenza 07/07/2017 [facility] Fluzone Quadrivalent [id number] Intramuscular Left Deltoid 07/07/2017 05/08/2015 150 History [...] 11:03AM Depression (emotion) Jan 19 2018 11:03AM Payers Insurance Name Company Name Plan Name Plan Number Policy Number Policy Group Number Start Date [employer] [place] [id number] N/A [employer] Financial Assistance [employer] Financial Alex 100 percent Tuesday, November 21, 2017 [employer] Financial Assistance [employer] Financial Alex 100 percent Tuesday, November 21, 2017 [employer] [place] [id number] Friday, October 02, 2009 [employer] [place] [id number] November [employer] Self Insurance Fund *INVALID [place] Self Insurance [id number] N/A [employer] Self Insurance Fund *[place] Self Insurance [id number] N/A [employer] [place] [id number] July [employer] [place] [id number] September History of Encounters Visit Date Visit Type Provider 01/19/2018 Office visit Sean Marie MD 10/27/2017 Office visit Fredis Rico DO 10/23/2017 Office visit Sean Marie MD 09/20/2017 Office visit Fredis Rico DO 08/31/2017 Office visit Fredis Rico DO 08/09/2017 Office visit Sean Marie MD 07/07/2017 Office visit Sean Marie MD 06/16/2017 Office visit Sean Marie MD 05/15/2017 Office visit Sean Marie MD 04/23/2017 Office visit Aurora Martin PROTOCOL OFFICER 04/14/2017 Office visit Sean Marie MD 03/20/2017 Office visit Sean Marie MD 03/03/2017 Office visit Aurora Martin PROTOCOL OFFICER 01/09/2017 Office visit Sean Marie MD 01/02/2017 [...] Marie MD 01/16/2016 Office visit Jania Stanley PROTOCOL OFFICER 01/07/2016 Hospital Michelle Greco MD 12/31/2015 Office visit Sean Marie MD 12/09/2015 Office visit Miguel A Munoz PROTOCOL OFFICER 11/17/2015 Office visit Sean Marie MD 11/03/2015 Office visit Sean Marie MD 10/09/2015 Office visit 10/09/2015 Office visit Sean Marie MD 08/31/2015 Office visit Sean Marie MD 08/25/2015 Office visit Sean Marie MD 06/05/2015 Office visit Sean Marie MD 05/07/2015 Office visit Amaris Gentile PROTOCOL OFFICER 05/06/2015 Office visit Kiarra Ramos PROTOCOL OFFICER 04/01/2015 Office visit 04/01/2015 Office visit Sean Marie MD 04/01/2015 Hospital Michelle Greco MD 03/26/2015 Office visit Sean Marie MD 03/19/2015 Office visit Sean Marie MD 02/13/2015 Office visit Sean Marie MD 01/26/2015 Office visit Leena Haddad PROTOCOL OFFICER 01/12/2015 Office visit Sean Marie MD 11/24/2014 Office visit Kiarra Ramos PROTOCOL OFFICER 10/22/2014 Office visit Miguel A Munoz PROTOCOL OFFICER 08/22/2014 Office visit Sean Marie MD 08/01/2014 Office visit Sean Marie MD 06/09/2014 Office visit Kiarra Ramos PROTOCOL OFFICER 03/14/2014 Office visit Leena Haddad PROTOCOL OFFICER 02/27/2014 Office visit Leena Dunn Boo PROTOCOL OFFICER 12/02/2013 Office visit Sean Marie MD 11/25/2013 Office visit Sean Marie MD 11/14/2013 Office visit Kiarra Ramos PROTOCOL OFFICER 08/21/2013 Office visit Leena N. Boo PROTOCOL OFFICER 08/09/2013 Office visit Kiarra Ramos PROTOCOL OFFICER 06/26/2013 Hospital Michelle Greco MD 06/26/2013 Office visit Sean Marie MD 06/21/2013 Office visit Kiarra Ramos PROTOCOL OFFICER 05/31/2013 Office visit Leena Mona Boo PROTOCOL OFFICER 05/10/2013 Office visit Leena Dunn Boo PROTOCOL OFFICER 05/03/2013 Office visit Leena Haddad PROTOCOL OFFICER 03/27/2013 Office visit Kiarra Ramos PROTOCOL OFFICER 03/05/2013 Office visit Kiarra Ramos PROTOCOL OFFICER 02/27/2013 Office visit Kiarra Ramos PROTOCOL OFFICER 01/08/2013 Office visit Sean Marie MD 10/30/2012 Office visit Sean Marie MD 04/26/2012 Nurse visit Maria Antonia Barakat PROTOCOL OFFICER 02/07/2012 Office visit Sean Marie MD 02/07/2012 Hospital Michelle Greco MD 12/13/2011 Office visit Sean Marie MD 11/08/2011 Office visit Sean Marie MD 10/24/2011 Office visit Sean Marie MD 08/05/2011 Office visit Sean Marie MD 07/12/2011 Office visit Kiarra Ramos PROTOCOL OFFICER 05/11/2011 Office visit Sean Marie MD [...]
--- OUTSIDE RECORDS SUMMARY | 2018-07-18 12:27 | XMS REPORT ---
Author Author Fredis Rico Organization [facility] Address [address] [place] [id number] Care Team Providers Care Ccu Nurse Name Role Phone Fredis Rico PCP Sean Marie PreferredProvider Allergies and Adverse Reactions Name Reaction Notes Albuterol tachycardia increases heart rate too much Percocet "head crawling" Adhesive Tape Plan of Treatment Planned Activity Comments Planned Date Planned Time Plan/Goal Renal Ultrasound 08/31/2017 12:00 AM CBC With Auto Differential 01/08/2013 [...] tablets by oral route daily as needed Xanax 0.25 mg oral tablet 05/01/2017 take [...] once daily with the evening meal gabapentin 300 mg oral capsule 08/31/2017 take 1 capsule by oral route once a day (at bedtime) for 7 days Name Start Date Expiration Date SIG [...] once daily at bedtime for 30 days CURATOR OF MANUSCRIPTS Thyroid 60 mg oral tablet 07/31/2017 07/31/2017 [...] by oral route 2 times per day Hall Thyroid 60 mg oral tablet 12/02/2013 take 1 tablet by oral route daily for 30 days [place] Thyroid 60 mg oral tablet 04/07/2014 TAKE ONE TABLET BY MOUTH ONCE DAILY milk thistle oral 11/24/2014 chromium picolinate oral 06/09/2014 Zofran ODT oral 10/09/2015 Dexilant 60 mg oral capsule,biphase delayed releas 07/09/2014 11/24/2014 TAKE ONE CAPSULE BY MOUTH EVERY DAY [place] Thyroid 60 mg oral tablet 08/04/2014 TAKE [...] by oral route once daily at bedtime [place] 5-325 mg oral tablet 08/22/2014 11/24/2014 take [...] by topical route 2 times per day [place] Thyroid 60 mg oral tablet 07/13/2015 TAKE [...] daily in the morning for 30 days [place] Thyroid 60 mg oral tablet 07/11/2016 08/09/2017 [...] HC BMI BSA BMI Percentile O2 Sat(%) 08/31/2017 2:54:00 PM 140 mmHg 82 mmHg [...] 08/25/2015 12:00 AM Decadron, Per 1 Mg [facility]# [address]-71 Reviewed 08/25/2015 12:00 AM Depo-Medrol, Per 80 Mg [facility]#[address]-41 Reviewed 08/25/2015 12:00 AM Rocephin 1 gram [facility]#8697-4428-68 Reviewed 10/09/2015 12:00 AM COMPLETE CBC W/AUTO DIFF WBC Reviewed 10/09/2015 12:00 AM COMPREHEN METABOLIC PANEL Reviewed 10/09/2015 12:00 AM GLYCOSYLATED HEMOGLOBIN TEST Reviewed 10/09/2015 12:00 AM ASSAY THYROID STIM HORMONE Reviewed 11/03/2015 8:54 AM URINALYSIS AUTO W/O SCOPE Reviewed 11/03/2015 12:[address] HEAD/BRAIN W/O & W/DYE Reviewed 11/17/2015 12:00 AM Rocephin 1 gram [facility]#8830-6289-37 Reviewed 08/05/2011 12:00 AM CHEST X-RAY 2VW FRONTAL&LATL Reviewed 12/09/2015 12:00 AM THER/PROPH/DIAG INJ SC/IM Reviewed 12/09/2015 12:00 AM Rocephin 1 gram [facility]#0248-3998-66 Reviewed 11/08/2011 12:00 AM Decadron Inj. per 1mg-[facility] [id number] Reviewed 11/08/2011 12:00 AM Depo-Medrol 80 Mg [facility] [id number] Reviewed 05/20/2016 12:00 AM COMPLETE CBC W/AUTO [...] 10/30/2012 12:00 AM Decadron, Per 1 Mg [facility]# [address]-86 Reviewed 10/30/2012 12:00 AM COMPLETE CBC W/AUTO DIFF WBC Reviewed 10/30/2012 12:00 AM COMPREHEN METABOLIC PANEL Reviewed 10/30/2012 12:00 AM LIPID PANEL Reviewed 10/30/2012 12:00 AM ASSAY THYROID STIM HORMONE Reviewed 01/08/2013 12:00 AM Depo-Medrol 80 Mg Im/C'pancho Reviewed 01/08/2013 12:00 AM Decadron, Per 1 Mg [facility]# [address]-32 Reviewed 01/08/2013 12:00 AM Rocephin 1 gram [facility]#5569-2647-55 Reviewed 01/08/2013 12:00 AM COMPREHEN METABOLIC PANEL Reviewed 01/08/2013 12:00 AM GLYCOSYLATED HEMOGLOBIN TEST Reviewed 01/08/2013 12:00 AM ASSAY THYROID STIM HORMONE Reviewed 01/08/2013 12:00 AM ASSAY OF PARATHORMONE Reviewed 01/08/2013 12:00 AM LIPID PANEL Reviewed 02/27/2013 12:00 AM THER/PROPH/DIAG INJ SC/IM Reviewed 02/27/2013 12:00 AM Decadron, Per 1 Mg [facility]# [address]-98 Reviewed 02/27/2013 12:00 AM Depo-Medrol, Per 80 Mg [facility]#3211-4254-07 Reviewed 03/04/2013 12:00 AM MAMMOGRAM SCREENING Reviewed 03/05/2013 12:00 AM CYTOPATH TBS C/V MANUAL Reviewed 03/05/2013 12:00 AM MAMMOGRAM BOTH BREASTS Reviewed 03/27/2013 12:00 AM THER/PROPH/DIAG INJ SC/IM Reviewed 03/27/2013 12:00 AM Bicillin CR, 1.2 million units [facility]# 37775-670-83 Reviewed 05/10/2013 12:00 AM X-RAY EXAM KNEE [...] 08/09/2013 12:00 AM Decadron, Per 1 Mg [facility]# [address]-73 Reviewed 08/09/2013 12:00 AM Depo-Medrol, Per 80 Mg [facility]#0740-0560-64 Reviewed 08/21/2013 12:00 AM X-RAY EXAM OF [...] Reviewed 03/26/2015 12:00 AM Rocephin 1 gram [facility]#9331-2695-06 Reviewed 04/01/2015 12:00 AM COMPLETE CBC W/AUTO DIFF WBC Reviewed 04/01/2015 12:00 AM COMPREHEN METABOLIC PANEL Reviewed 04/01/2015 12:00 AM ASSAY THYROID STIM HORMONE Reviewed 04/01/2015 12:00 AM CHEST X-RAY 2VW FRONTAL&LATL Reviewed 05/07/2015 12:00 AM THER/PROPH/DIAG INJ SC/IM Reviewed 05/07/2015 12:00 AM Decadron injection Reviewed 05/07/2015 12:00 AM Depo-Medrol 40mg Reviewed 05/11/2011 12:00 AM Depo-Medrol 80 Mg [facility] [id number] Reviewed 05/11/2011 12:00 AM Decadron Inj. per 1mg-[facility] [id number]-[id number] Reviewed Results Summary Date and Description Results [...] Vis Given Vis Pub CVX Tdap 04/26/2012 xTurion ADACEL [id number] Intramuscular Left Arm 04/26/2012 08/19/2008 115 Tdap 03/14/2014 OleOle BOOSTRIX [id number] Intramuscular Left Deltoid 03/14/2014 02/07/2013 115 Influenza 06/22/2015 im3D. NOV Fluvirin [id number] Intramuscular Left Deltoid 06/23/2015 05/08/2015 140 Pneumococcal 09/16/2015 Not Entered NE Pneumovax 23 Intramuscular Not Entered 11/11/2016 10/02/2017 33 Influenza 07/07/2017 [facility] Fluzone Quadrivalent [id number] Intramuscular Left Deltoid 07/07/2017 05/08/2015 150 History [...] state Nov 03 2015 8:47AM Bacterial vaginosis Fe 2 2016 8:47AM Left shoulder pain Nov 03 2015 [...] Chronic pain syndrome Aug 31 2017 3:00PM Payers Insurance Name Company Name Plan Name Plan Number Policy Number Policy Group Number Start Date [employer] [place] [id number] September IMN Financial Assistance IMN Financial Alex 40 percent clinic October [employer] [place] [id number] Friday, October 02, 2009 [employer] [place] [id number] November [place] Self Insurance Fund *INVALID State Self Insurance [id number] N/A [facility] Self [facility] Fund *INVALID State Self Insurance [id number] N/A [employer] [place] [id number] July History of Encounters Visit Date Visit Type Provider 08/31/2017 Office visit Fredis Rico DO 08/09/2017 Office visit Sean Marie MD 07/07/2017 Office visit Sean Marie MD 06/16/2017 Office visit Sean Marie MD 05/15/2017 Office visit Sean Marie MD 04/23/2017 Office visit Aurora Martin CHAIRMAN & CHIEF EXECUTIVE OFFICER 04/14/2017 Office visit Sean Marie MD 03/20/2017 Office visit Sean Marie MD 03/03/2017 Office visit Aurora Martin CHAIRMAN & CHIEF EXECUTIVE OFFICER 01/09/2017 Office visit Sean Marie MD 01/02/2017 Office visit Sean Marie MD 12/27/2016 Office visit Sean Marie MD 2016 Office visit Sean Marie MD 09/19/2016 Office visit eSan Marie MD 07/01/2016 Office visit Sean Marie MD 06/17/2016 Office visit Sean Marie MD 05/20/2016 Office visit 05/20/2016 Office visit Sean Marie MD 05/16/2016 [facility] Greco MD 04/01/2016 Office visit Sean Marie MD 02/25/2016 Office visit Sean Marie MD 01/16/2016 Office visit Jania Stanley CHAIRMAN & CHIEF EXECUTIVE OFFICER 01/07/2016 [facility] MD 12/31/2015 Office visit Sean Marie MD 12/09/2015 Office visit Miguel A Munoz CHAIRMAN & CHIEF EXECUTIVE OFFICER 11/17/2015 Office visit Sean Marie MD 11/03/2015 Office visit Sean Marie MD 10/09/2015 Office visit 10/09/2015 Office visit Sean Marie MD 08/31/2015 Office visit Sean Marie MD 08/25/2015 Office visit Sean Marie MD 06/05/2015 Office visit Sean Marie MD 05/07/2015 Office visit Amaris Gentile CHAIRMAN & CHIEF EXECUTIVE OFFICER 05/06/2015 Office visit Kiarra Ramos CHAIRMAN & CHIEF EXECUTIVE OFFICER 04/01/2015 Office visit 04/01/2015 Office visit Sean Marie MD 04/01/2015 [facility] Greco MD 03/26/2015 Office visit Sean Marie MD 03/19/2015 Office visit Sean Marie MD 02/13/2015 Office visit Sean Marie MD 01/26/2015 Office visit Leena Haddad CHAIRMAN & CHIEF EXECUTIVE OFFICER 01/12/2015 Office visit Sean Marie MD 11/24/2014 Office visit Kiarra Ramos CHAIRMAN & CHIEF EXECUTIVE OFFICER 10/22/2014 Office visit Miguel A Munoz CHAIRMAN & CHIEF EXECUTIVE OFFICER 08/22/2014 Office visit Sean Marie MD 08/01/2014 Office visit Sean Marie MD 06/09/2014 Office visit Kiarra Ramos CHAIRMAN & CHIEF EXECUTIVE OFFICER 03/14/2014 Office visit Leena Haddad CHAIRMAN & CHIEF EXECUTIVE OFFICER 02/27/2014 Office visit Leena Haddad CHAIRMAN & CHIEF EXECUTIVE OFFICER 12/02/2013 Office visit Sean Marie MD 11/25/2013 Office visit Sean Marie MD 11/14/2013 Office visit Kiarra Ramos CHAIRMAN & CHIEF EXECUTIVE OFFICER 08/21/2013 Office visit Leena Haddad CHAIRMAN & CHIEF EXECUTIVE OFFICER 08/09/2013 Office visit Kiarra Ramos CHAIRMAN & CHIEF EXECUTIVE OFFICER 06/26/2013 [facility] Greco MD 06/26/2013 Office visit Sean Marie MD 06/21/2013 Office visit Kiarra Richard CHAIRMAN & CHIEF EXECUTIVE OFFICER 05/31/2013 Office visit Leena Haddad CHAIRMAN & CHIEF EXECUTIVE OFFICER 05/10/2013 Office visit Leena Haddad CHAIRMAN & CHIEF EXECUTIVE OFFICER 05/03/2013 Office visit Leena Haddad CHAIRMAN & CHIEF EXECUTIVE OFFICER 03/27/2013 Office visit Kiarra Ramos CHAIRMAN & CHIEF EXECUTIVE OFFICER 03/05/2013 Office visit Kiarra Ramos CHAIRMAN & CHIEF EXECUTIVE OFFICER 02/27/2013 Office visit Kiarra Richard CHAIRMAN & CHIEF EXECUTIVE OFFICER 01/08/2013 Office visit Sean Marie MD 10/30/2012 Office visit Sean Marie MD 04/26/2012 Nurse visit Maria Antonia Barakat CHAIRMAN & CHIEF EXECUTIVE OFFICER 02/07/2012 Office visit Sean Marie MD 02/07/2012 [facility] Marcela Greco MD 12/13/2011 Office visit Sean Marie MD 11/08/2011 Office visit Sean Marie MD 10/24/2011 Office visit Sean Marie MD 08/05/2011 Office visit Sean Marie MD 07/12/2011 Office visit Kiarra Ramos CHAIRMAN & CHIEF EXECUTIVE OFFICER 05/11/2011 Office visit Sean Marie MD [...]
--- OUTSIDE RECORDS SUMMARY | 2018-07-18 12:30 | XMS REPORT ---
Author Author Sean Marie [facility] Address [address] [place], [place] [id number] Care Team Providers Care Compensation And Benefits Manager Name Role Phone Sean Marie PCP Sean [...] route 2 times a day as needed [place] 10-325 mg oral tablet 01/19/2018 take 1 [...] daily in the morning for 30 days clonidine HCl 0.1 mg oral tablet 03/09/2018 04/08/2018 take 1 tablet by oral route 3 times a day as needed for 30 days OxyContin 40 mg oral tablet,oral only,ext.rel.12 hr 03/09/2018 04/08/2018 take 1 tablet (40 mg) by oral route every 12 hours for 30 days lamotrigine 100 mg oral tablet 03/26/2018 TAKE ONE TABLET BY MOUTH ONCE DAILY (FILL AFTER TAPER OF 25 MG IS COMPLETE) Ambien 10 mg oral tablet 03/26/2018 07/24/2018 take 1 tablet (10 mg) by oral route once daily at bedtime for 30 days gabapentin 600 mg oral tablet 03/29/2018 04/28/2018 take 1 tablet (600 mg) by oral route at HS gabapentin 300 mg oral capsule 03/29/2018 04/28/2018 take 1 capsule (300 mg) by oral route 2 times per day Lunesta 3 mg oral tablet 03/29/2018 04/28/2018 take 1 tablet (3 mg) by oral route once daily at bedtime for 30 days Name Start Date [...] mg) by oral route every 4 hours DURABLE MEDICAL EQUIPMENT REPAIRER Thyroid 60 mg oral tablet 07/31/2017 07/31/2017 [...] by oral route daily for 30 days [place] Thyroid 60 mg oral tablet 04/07/2014 TAKE ONE TABLET BY MOUTH ONCE DAILY milk thistle oral 11/24/2014 chromium picolinate oral 06/09/2014 Zofran ODT oral 10/09/2015 Dexilant 60 mg oral capsule,biphase delayed releas 07/09/2014 11/24/2014 TAKE ONE CAPSULE BY MOUTH EVERY DAY [place] Thyroid 60 mg oral tablet 08/04/2014 TAKE [...] by oral route once daily at bedtime [place] 5-325 mg oral tablet 08/22/2014 11/24/2014 take [...] by topical route 2 times per day [place] Thyroid 60 mg oral tablet 07/13/2015 TAKE [...] daily in the morning for 30 days [place] Thyroid 60 mg oral tablet 07/11/2016 08/09/2017 [...] HC BMI BSA BMI Percentile O2 Sat(%) 03/29/2018 3:06:00 PM 138 mmHg 78 mmHg [...] Decadron, Per 1 Mg [facility]# [address]-35 Reviewed 08/25/2015 12:00 AM Depo-Medrol, Per 80 Mg [facility]#[address]-10 Reviewed 08/25/2015 12:00 AM Rocephin 1 gram [facility]#0914-4938-38 Reviewed 10/09/2015 12:00 AM COMPLETE CBC W/AUTO DIFF WBC Reviewed 10/09/2015 12:00 AM COMPREHEN METABOLIC PANEL Reviewed 10/09/2015 12:00 AM GLYCOSYLATED HEMOGLOBIN TEST Reviewed 10/09/2015 12:00 AM ASSAY THYROID STIM HORMONE Reviewed 11/03/2015 8:54 AM URINALYSIS AUTO W/O SCOPE Reviewed 11/03/2015 12:[address] HEAD/BRAIN W/O & W/DYE Reviewed 11/17/2015 12:00 AM Rocephin 1 gram [facility]#6217-2680-52 Reviewed 08/05/2011 12:00 AM CHEST X-RAY 2VW FRONTAL&LATL Reviewed 12/09/2015 12:00 AM THER/PROPH/DIAG INJ SC/IM Reviewed 12/09/2015 12:00 AM Rocephin 1 gram [facility]#6730-8230-95 Reviewed 11/08/2011 12:00 AM Decadron Inj. per 1mg-[facility] [id number] Reviewed 11/08/2011 12:00 AM Depo-Medrol 80 Mg [facility] [id number] Reviewed 05/20/2016 12:00 AM COMPLETE CBC W/AUTO [...] Decadron, Per 1 Mg [facility]# [address]-00 Reviewed 10/30/2012 12:00 AM COMPLETE CBC W/AUTO [...] Decadron, Per 1 Mg [facility]# [address]-46 Reviewed 01/08/2013 12:00 AM Rocephin 1 gram [facility]#3413-3526-52 Reviewed 01/08/2013 12:00 AM COMPREHEN METABOLIC PANEL Reviewed 01/08/2013 12:00 AM GLYCOSYLATED HEMOGLOBIN TEST Reviewed 01/08/2013 12:00 AM ASSAY THYROID STIM HORMONE Reviewed 01/08/2013 12:00 AM ASSAY OF PARATHORMONE Reviewed 01/08/2013 12:00 AM LIPID PANEL Reviewed 02/27/2013 12:00 AM THER/PROPH/DIAG INJ SC/IM Reviewed 02/27/2013 12:00 AM Decadron, Per 1 Mg [facility]# [address]-12 Reviewed 02/27/2013 12:00 AM Depo-Medrol, Per 80 Mg [facility]#5790-7857-96 Reviewed 03/04/2013 12:00 AM MAMMOGRAM SCREENING Reviewed 03/05/2013 12:00 AM CYTOPATH TBS C/V MANUAL Reviewed 03/05/2013 12:00 AM MAMMOGRAM BOTH BREASTS Reviewed 03/27/2013 12:00 AM THER/PROPH/DIAG INJ SC/IM Reviewed 03/27/2013 12:00 AM Bicillin CR, 1.2 million units [facility]# 04179-137-50 Reviewed 05/10/2013 12:00 AM X-RAY EXAM KNEE [...] Decadron, Per 1 Mg [facility]# [address]-45 Reviewed 08/09/2013 12:00 AM Depo-Medrol, Per 80 Mg [facility]#3593-4548-70 Reviewed 08/21/2013 12:00 AM X-RAY EXAM OF [...] AM Rocephin 1 gram [facility]#6856-1185-64 Reviewed 04/01/2015 12:00 AM COMPLETE CBC W/AUTO DIFF WBC Reviewed 04/01/2015 12:00 AM COMPREHEN METABOLIC PANEL Reviewed 04/01/2015 12:00 AM ASSAY THYROID STIM HORMONE Reviewed 04/01/2015 12:00 AM CHEST X-RAY 2VW FRONTAL&LATL Reviewed 05/07/2015 12:00 AM THER/PROPH/DIAG INJ SC/IM Reviewed 05/07/2015 12:00 AM Decadron injection Reviewed 05/07/2015 12:00 AM Depo-Medrol 40mg Reviewed 05/11/2011 12:00 AM Depo-Medrol 80 Mg [facility] [id number] Reviewed 05/11/2011 12:00 AM Decadron Inj. per 1mg-[facility] [id number] Reviewed Results Summary Date and Description Results [...] Vis Given Vis Pub CVX Tdap 04/26/2012 [employer] [facility] ADACEL [id number] Intramuscular Left Arm 04/26/2012 08/19/2008 115 Tdap 03/14/2014 [employer]ive SKB BOOSTRIX [id number] Intramuscular Left Deltoid 03/14/2014 02/07/2013 115 Influenza 06/22/2015 [employer]. NOV FLUVIRIN [id number] Intramuscular Left Deltoid 06/23/2015 05/08/2015 140 Pneumococcal 09/16/2015 Not Entered [place] PNEUMOVAX 23 Intramuscular Not Entered 11/11/2016 10/02/2017 33 Influenza 07/07/2017 [facility] Fluzone Quadrivalent [id number] Intramuscular Left Deltoid 07/07/2017 05/08/2015 150 History [...] vaginosis b 2015 8:47AM Left shoulder pain Feb 2015 8:47AM Memory loss, short term b 2015 8:47AM Sinusitis Nov 17 2015 3:04PM Altered mental status b 2015 3:04PM Upper respiratory tract infection, unspecified [...] 3:07PM Insomnia, unspecified Mar 29 2018 3:07PM Payers Insurance Name Company Name Plan Name Plan Number Policy Number Policy Group Number Start Date [employer] [place] [id number] N/A [employer] Alex 100 PERCENT Tuesday, November 21, 2017 [facility] Financial Assistance [employer] Alex 100 percent Tuesday, November 21, 2017 [employer] [place] [id number] Friday, October 02, 2009 [employer] [place] [id number] November [employer] Self Insurance Fund *INVALID State Self Insurance [id number] N/A [employer] Self Insurance Fund *INVALID State Self Insurance [id number] N/A [employer] [place] [id number] July [employer] [place] [id number] September History of Encounters Visit Date Visit Type Provider 03/29/2018 Office visit Sean Marie MD 03/09/2018 [...] Marie MD 04/23/2017 Office visit Aurora Martin DIGITAL FIELD SERVICE TECHNICIAN 04/14/2017 Office visit Sean Marie MD 03/20/2017 Office visit Sean Marie MD 03/03/2017 Office visit Aurora Martin DIGITAL FIELD SERVICE TECHNICIAN 01/09/2017 Office visit Sean Marie MD 01/02/2017 [...] Marie MD 01/16/2016 Office visit Jania Stanley DIGITAL FIELD SERVICE TECHNICIAN 01/07/2016 Hospital Michelle Greco MD 12/31/2015 Office visit Sean Marie MD 12/09/2015 Office visit Miguel A Munoz DIGITAL FIELD SERVICE TECHNICIAN 11/17/2015 Office visit Sean Marie MD 11/03/2015 Office visit Sean Marie MD 10/09/2015 Office visit 10/09/2015 Office visit Sean Marie MD 08/31/2015 Office visit Sean Marie MD 08/25/2015 Office visit Sean Marie MD 06/05/2015 Office visit Sean Marie MD 05/07/2015 Office visit mAaris Gentile DIGITAL FIELD SERVICE TECHNICIAN 05/06/2015 Office visit Kiarra Ramos DIGITAL FIELD SERVICE TECHNICIAN 04/01/2015 Office visit 04/01/2015 Office visit Sean Marie MD 04/01/2015 [facility] Greco MD 03/26/2015 Office visit Sean Marie MD 03/19/2015 Office visit Sean Marie MD 02/13/2015 Office visit Sean Marie MD 01/26/2015 Office visit Leena Haddad DIGITAL FIELD SERVICE TECHNICIAN 01/12/2015 Office visit Sean Marie MD 11/24/2014 Office visit Kiarra Ramos DIGITAL FIELD SERVICE TECHNICIAN 10/22/2014 Office visit Miguel A Munoz DIGITAL FIELD SERVICE TECHNICIAN 08/22/2014 Office visit Sean Marie MD 08/01/2014 Office visit Sean Marie MD 06/09/2014 Office visit Kiarra Ramos DIGITAL FIELD SERVICE TECHNICIAN 03/14/2014 Office visit Leena Haddad DIGITAL FIELD SERVICE TECHNICIAN 02/27/2014 Office visit Leena Haddad DIGITAL FIELD SERVICE TECHNICIAN 12/02/2013 Office visit Sean Marie MD 11/25/2013 Office visit Sean Marie MD 11/14/2013 Office visit Kiarra Ramos DIGITAL FIELD SERVICE TECHNICIAN 08/21/2013 Office visit Leena Haddad DIGITAL FIELD SERVICE TECHNICIAN 08/09/2013 Office visit Kiarra Ramos DIGITAL FIELD SERVICE TECHNICIAN 06/26/2013 Hospital Michelle Greco MD 06/26/2013 Office visit Sean Marie MD 06/21/2013 Office visit Kiarra Ramos DIGITAL FIELD SERVICE TECHNICIAN 05/31/2013 Office visit Leena Haddad DIGITAL FIELD SERVICE TECHNICIAN 05/10/2013 Office visit Leena Haddad DIGITAL FIELD SERVICE TECHNICIAN 05/03/2013 Office visit Leena Haddad DIGITAL FIELD SERVICE TECHNICIAN 03/27/2013 Office visit Kiarra Ramos DIGITAL FIELD SERVICE TECHNICIAN 03/05/2013 Office visit Kiarra Ramos DIGITAL FIELD SERVICE TECHNICIAN 02/27/2013 Office visit Kiarra Ramos DIGITAL FIELD SERVICE TECHNICIAN 01/08/2013 Office visit Sean Marie MD 10/30/2012 Office visit Sean Marie MD 04/26/2012 Nurse visit Maria Antonia Barakat DIGITAL FIELD SERVICE TECHNICIAN 02/07/2012 Office visit Sean Marie MD 02/07/2012 Hospital Michelle Greco MD 12/13/2011 Office visit Sean Marie MD 11/08/2011 Office visit Sean Marie MD 10/24/2011 Office visit Sean Marie MD 08/05/2011 Office visit Sean Marie MD 07/12/2011 Office visit Kiarra Ramos DIGITAL FIELD SERVICE TECHNICIAN 05/11/2011 Office visit Sean Marie MD [...]
--- OUTSIDE RECORDS SUMMARY | 2018-07-18 12:32 | XMS REPORT ---
Author Author Sean Marie [facility] Address [address] [place], [place] [id number] Care Team Providers Care Flat Locker Name Role Phone Sean Marie PCP Unavailable [...] TABLET BY MOUTH EVERY DAY AT BEDTIME [place] Thyroid 60 mg oral tablet 04/07/2014 TAKE ONE TABLET BY MOUTH ONCE DAILY lovastatin 40 mg oral tablet 06/12/2014 take 1 tablet by oral route daily [place] Thyroid 60 mg oral tablet 08/04/2014 TAKE [...] TABLET BY MOUTH ONCE DAILY AT BEDTIME [place] Thyroid 60 mg oral tablet 07/13/2015 TAKE [...] TAKE ONE TABLET BY MOUTH ONCE DAILY [place] Thyroid 60 mg oral tablet 07/11/2016 TAKE [...] once daily at bedtime for 30 days [place] Thyroid 60 mg oral tablet 12/02/2013 04/01/2014 [...] by oral route once daily at bedtime [place] 5-325 mg oral tablet 08/22/2014 11/24/2014 take [...] 12:00 AM Decadron, Per [address] [facility]# [address]-79 Reviewed 08/25/2015 12:00 AM Depo-Medrol, Per [address] [facility]#[address]-26 Reviewed 08/25/2015 12:00 AM Rocephin [address] [facility]#4544-3271-00 Reviewed 10/09/2015 12:00 AM COMPLETE CBC W/AUTO DIFF WBC Reviewed 10/09/2015 12:00 AM COMPREHEN METABOLIC PANEL Reviewed 10/09/2015 12:00 AM GLYCOSYLATED HEMOGLOBIN TEST Reviewed 10/09/2015 12:00 AM ASSAY THYROID STIM HORMONE Reviewed 11/03/2015 8:54 AM URINALYSIS AUTO W/O SCOPE Reviewed 11/03/2015 12:[address] HEAD/BRAIN W/O & W/DYE Reviewed 11/17/2015 12:00 AM Rocephin [address] [facility]#2162-8784-67 Reviewed 08/05/2011 12:00 AM CHEST X-RAY 2VW FRONTAL&LATL Reviewed 12/09/2015 12:00 AM THER/PROPH/DIAG INJ SC/IM Reviewed 12/09/2015 12:00 AM Rocephin [address] [facility]#6414-4091-78 Reviewed 11/08/2011 12:00 AM Decadron Inj. per 1mg-[facility] [id number]-Kbwrocugs Reviewed 11/08/2011 12:00 AM Depo-Medrol [address] [facility] [id number] Reviewed 05/20/2016 12:00 AM COMPLETE CBC W/AUTO [...] 12:00 AM Decadron, Per [address] [facility]# [address]-05 Reviewed 10/30/2012 12:00 AM COMPLETE CBC W/AUTO DIFF WBC Reviewed 10/30/2012 12:00 AM COMPREHEN METABOLIC PANEL Reviewed 10/30/2012 12:00 AM LIPID PANEL Reviewed 10/30/2012 12:00 AM ASSAY THYROID STIM HORMONE Reviewed 01/08/2013 12:00 AM Depo-Medrol 80 Mg Im/C'pancho Reviewed 01/08/2013 12:00 AM Decadron, Per [address] [facility]# [address]-21 Reviewed 01/08/2013 12:00 AM Rocephin 1 gram [facility]#2526-5582-68 Reviewed 01/08/2013 12:00 AM COMPREHEN METABOLIC PANEL Reviewed 01/08/2013 12:00 AM GLYCOSYLATED HEMOGLOBIN TEST Reviewed 01/08/2013 12:00 AM ASSAY THYROID STIM HORMONE Reviewed 01/08/2013 12:00 AM ASSAY OF PARATHORMONE Reviewed 01/08/2013 12:00 AM LIPID PANEL Reviewed 02/27/2013 12:00 AM THER/PROPH/DIAG INJ SC/IM Reviewed 02/27/2013 12:00 AM Decadron, Per [address] [facility]# [address]-87 Reviewed 02/27/2013 12:00 AM Depo-Medrol, Per [address] [facility]#0012-8077-13 Reviewed 03/04/2013 12:00 AM MAMMOGRAM SCREENING Reviewed 03/05/2013 12:00 AM CYTOPATH TBS C/V MANUAL Reviewed 03/05/2013 12:00 AM MAMMOGRAM BOTH BREASTS Reviewed 03/27/2013 12:00 AM THER/PROPH/DIAG INJ SC/IM Reviewed 03/27/2013 12:00 AM Bicillin CR, 1.[address] [facility]# 28828-606-40 Reviewed 05/10/2013 12:00 AM X-RAY EXAM KNEE [...] 12:00 AM Decadron, Per [address] [facility]# [address]-84 Reviewed 08/09/2013 12:00 AM Depo-Medrol, Per [address] [facility]#9034-9585-04 Reviewed 08/21/2013 12:00 AM X-RAY EXAM OF [...] 03/26/2015 12:00 AM Rocephin [address] [facility]#6457-7996-25 Reviewed 04/01/2015 12:00 AM COMPLETE CBC W/AUTO DIFF WBC Reviewed 04/01/2015 12:00 AM COMPREHEN METABOLIC PANEL Reviewed 04/01/2015 12:00 AM ASSAY THYROID STIM HORMONE Reviewed 04/01/2015 12:00 AM CHEST X-RAY 2VW FRONTAL&LATL Reviewed 05/07/2015 12:00 AM THER/PROPH/DIAG INJ SC/IM Reviewed 05/07/2015 12:00 AM Decadron injection Reviewed 05/07/2015 12:00 AM Depo-Medrol 40mg Reviewed 05/11/2011 12:00 AM Depo-Medrol [address] [facility] [id number] Reviewed 05/11/2011 12:00 AM Decadron Inj. per 1mg-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 NOV Fluvirin [id number] Intramuscular Left Deltoid 06/23/2015 05/08/2015 140 Pneumococcal [...] Oct 09 2015 8:55AM Altered mental state Feb 2 2015 8:47AM Bacterial vaginosis Feb 2 2015 8:47AM Left shoulder pain Feb 2015 8:47AM Memory loss, short term Feb 2 2015 8:47AM Sinusitis Nov 17 2015 3:04PM [...] quadrant abdominal pain May 15 2017 1:44PM Payers Insurance Name Company Name Plan Name Plan Number Policy Number Policy Group Number Start Date [employer] [place] [id number] September [employer] [facility] Financial Assistance [facility] Financial Alex 40 percent clinic October [employer] [place] [id number] Friday, October 02, 2009 [employer] [place] [id number] November [employer] Self Insurance Fund *INVALID State Self Insurance [id number] N/A [facility] Self Insurance Fund *INVALID State Self Insurance [id number] N/A [employer] [place] [id number] July History of Encounters Visit Date Visit Type Provider 05/15/2017 Office visit Sean Marie MD 04/23/2017 Office visit Aurora Martin APRN 04/14/2017 Office visit Sean Marie MD 03/20/2017 Office visit Sean Marie MD 03/03/2017 Office visit Aurora Martin C APPLICATION DEVELOPER 01/09/2017 Office visit Sean Marie MD 01/02/2017 Office visit Sean Marie MD 12/27/2016 Office visit Sean Marie MD 2016 Office visit Sean Marie MD 09/19/2016 Office visit Sean Marie MD 07/01/2016 Office visit Sean Mraie MD 06/17/2016 Office visit Sean Marie MD 05/20/2016 Office visit 05/20/2016 Office visit Sean Marie MD 05/16/2016 [facility] Greco MD 04/01/2016 Office visit Sean Marie MD 02/25/2016 Office visit Sean Marie MD 01/16/2016 Office visit Jania Stanley C APPLICATION DEVELOPER 01/07/2016 [facility] MD 12/31/2015 Office visit Sean Marie MD 12/09/2015 Office visit Miguel A Munoz C APPLICATION DEVELOPER 11/17/2015 Office visit Sean Marie MD 11/03/2015 Office visit Sean Marie MD 10/09/2015 Office visit 10/09/2015 Office visit Sean Marie MD 08/31/2015 Office visit Sean Marie MD 08/25/2015 Office visit Sean Marie MD 06/05/2015 Office visit Sean Marie MD 05/07/2015 Office visit Aamris Gentile C APPLICATION DEVELOPER 05/06/2015 Office visit Kiarra Ramos C APPLICATION DEVELOPER 04/01/2015 Office visit 04/01/2015 Office visit Sean Marie MD 04/01/2015 [facility] Greco MD 03/26/2015 Office visit Sean Marie MD 03/19/2015 Office visit Sean Marie MD 02/13/2015 Office visit Sean Marie MD 01/26/2015 Office visit Leena Haddad C APPLICATION DEVELOPER 01/12/2015 Office visit Sean Marie MD 11/24/2014 Office visit Kiarra Ramos C APPLICATION DEVELOPER 10/22/2014 Office visit Miguel A Munoz C APPLICATION DEVELOPER 08/22/2014 Office visit Sean Marie MD 08/01/2014 Office visit Sean Marie MD 06/09/2014 Office visit Kiarra Ramos C APPLICATION DEVELOPER 03/14/2014 Office visit Leena Haddad C APPLICATION DEVELOPER 02/27/2014 Office visit Leena Haddad C APPLICATION DEVELOPER 12/02/2013 Office visit Sean Marie MD 11/25/2013 Office visit Sean Marie MD 11/14/2013 Office visit Kiarra Ramos C APPLICATION DEVELOPER 08/21/2013 Office visit Leena Haddad C APPLICATION DEVELOPER 08/09/2013 Office visit Kiarra Ramos C APPLICATION DEVELOPER 06/26/2013 [facility] MD 06/26/2013 Office visit Sean Marie MD 06/21/2013 Office visit Kiarra Ramos C APPLICATION DEVELOPER 05/31/2013 Office visit Leena Haddad C APPLICATION DEVELOPER 05/10/2013 Office visit Leena Haddad C APPLICATION DEVELOPER 05/03/2013 Office visit Leena Haddad C APPLICATION DEVELOPER 03/27/2013 Office visit Kiarra Richard C APPLICATION DEVELOPER 03/05/2013 Office visit Kiarra Richard C APPLICATION DEVELOPER 02/27/2013 Office visit Kiarra Richard C APPLICATION DEVELOPER 01/08/2013 Office visit Sean Marie MD 10/30/2012 Office visit Sean Marie MD 04/26/2012 Nurse visit Maria Antonia Barakat C APPLICATION DEVELOPER 02/07/2012 Office visit Sean Marie MD 02/07/2012 [facility] Marcela Greco MD 12/13/2011 Office visit Sean Marie MD 11/08/2011 Office visit Sean Marie MD 10/24/2011 Office visit Sean Marie MD 08/05/2011 Office visit Sean Marie MD 07/12/2011 Office visit Kiarra Ramos C APPLICATION DEVELOPER 05/11/2011 Office visit Sean Marie MD 04/19/2011 [...]
--- OUTSIDE RECORDS SUMMARY | 2018-07-18 12:35 | XMS REPORT ---
Author Author Fredis Rico Organization [facility] Address [address] [place] [id number] Care Team Providers Care [employer] Name Role Phone Fredis Rico PCP Sean [...] oral route once daily in the morning Nuvigil 150 mg oral tablet 08/28/2017 12/26/2017 [...] 30 days gabapentin 300 mg oral capsule 10/23/2017 10/18/2018 Take one by mouth in the morning and two by mouth at bedtime. OxyContin 40 mg oral tablet,oral only,ext.rel.12 hr [...] once daily at bedtime for 30 days [facility] Thyroid 60 mg oral tablet 07/31/2017 07/31/2017 TAKE ONE TABLET BY MOUTH ONCE DAILY Toviaz 8 mg oral tablet extended release 24 hr 09/26/2017 09/26/2017 TAKE ONE TABLET BY MOUTH ONCE DAILY ropinirole 4 mg oral tablet 10/10/2017 10/10/2017 TAKE ONE TABLET BY MOUTH ONCE DAILY 1-3 HOURS BEFORE BEDTIME lovastatin 40 mg oral tablet 10/30/2017 10/30/2017 [...] by oral route 2 times per day [place] Thyroid 60 mg oral tablet 12/02/2013 take 1 tablet by oral route daily for 30 days [place] Thyroid 60 mg oral tablet 04/07/2014 TAKE ONE TABLET BY MOUTH ONCE DAILY milk thistle oral 11/24/2014 chromium picolinate oral 06/09/2014 Zofran ODT oral 10/09/2015 Dexilant 60 mg oral capsule,biphase delayed releas 07/09/2014 11/24/2014 TAKE ONE CAPSULE BY MOUTH EVERY DAY [place] Thyroid 60 mg oral tablet 08/04/2014 TAKE [...] by oral route once daily at bedtime [place] 5-325 mg oral tablet 08/22/2014 11/24/2014 take [...] by topical route 2 times per day [place] Thyroid 60 mg oral tablet 07/13/2015 TAKE [...] daily in the morning for 30 days [place] Thyroid 60 mg oral tablet 07/11/2016 08/09/2017 [...] 08/25/2015 12:00 AM Decadron, Per 1 Mg [facility]# [address]-33 Reviewed 08/25/2015 12:00 AM Depo-Medrol, Per 80 Mg [facility]#[address]-20 Reviewed 08/25/2015 12:00 AM Rocephin 1 gram [facility]#0213-7967-54 Reviewed 10/09/2015 12:00 AM COMPLETE CBC W/AUTO DIFF WBC Reviewed 10/09/2015 12:00 AM COMPREHEN METABOLIC PANEL Reviewed 10/09/2015 12:00 AM GLYCOSYLATED HEMOGLOBIN TEST Reviewed 10/09/2015 12:00 AM ASSAY THYROID STIM HORMONE Reviewed 11/03/2015 8:54 AM URINALYSIS AUTO W/O SCOPE Reviewed 11/03/2015 12:[address] HEAD/BRAIN W/O & W/DYE Reviewed 11/17/2015 12:00 AM Rocephin 1 gram [facility]#0392-8920-38 Reviewed 08/05/2011 12:00 AM CHEST X-RAY 2VW FRONTAL&LATL Reviewed 12/09/2015 12:00 AM THER/PROPH/DIAG INJ SC/IM Reviewed 12/09/2015 12:00 AM Rocephin 1 gram [facility]#2181-1857-71 Reviewed 11/08/2011 12:00 AM Decadron Inj. per 1mg-[facility] [id number] Reviewed 11/08/2011 12:00 AM Depo-Medrol 80 Mg [facility] [id number] Reviewed 05/20/2016 12:00 AM COMPLETE CBC W/AUTO [...] 10/30/2012 12:00 AM Decadron, Per 1 Mg [facility]# [address]-08 Reviewed 10/30/2012 12:00 AM COMPLETE CBC W/AUTO DIFF WBC Reviewed 10/30/2012 12:00 AM COMPREHEN METABOLIC PANEL Reviewed 10/30/2012 12:00 AM LIPID PANEL Reviewed 10/30/2012 12:00 AM ASSAY THYROID STIM HORMONE Reviewed 01/08/2013 12:00 AM Depo-Medrol 80 Mg Im/C'pancho Reviewed 01/08/2013 12:00 AM Decadron, Per 1 Mg [facility]# [address]-98 Reviewed 01/08/2013 12:00 AM Rocephin 1 gram [facility]#4051-3183-62 Reviewed 01/08/2013 12:00 AM COMPREHEN METABOLIC PANEL Reviewed 01/08/2013 12:00 AM GLYCOSYLATED HEMOGLOBIN TEST Reviewed 01/08/2013 12:00 AM ASSAY THYROID STIM HORMONE Reviewed 01/08/2013 12:00 AM ASSAY OF PARATHORMONE Reviewed 01/08/2013 12:00 AM LIPID PANEL Reviewed 02/27/2013 12:00 AM THER/PROPH/DIAG INJ SC/IM Reviewed 02/27/2013 12:00 AM Decadron, Per 1 Mg [facility]# [address]-12 Reviewed 02/27/2013 12:00 AM Depo-Medrol, Per 80 Mg [facility]#0421-3906-86 Reviewed 03/04/2013 12:00 AM MAMMOGRAM SCREENING Reviewed 03/05/2013 12:00 AM CYTOPATH TBS C/V MANUAL Reviewed 03/05/2013 12:00 AM MAMMOGRAM BOTH BREASTS Reviewed 03/27/2013 12:00 AM THER/PROPH/DIAG INJ SC/IM Reviewed 03/27/2013 12:00 AM Bicillin CR, 1.2 million units [facility]# 32857-370-23 Reviewed 05/10/2013 12:00 AM X-RAY EXAM KNEE [...] 08/09/2013 12:00 AM Decadron, Per 1 Mg [facility]# [address]-06 Reviewed 08/09/2013 12:00 AM Depo-Medrol, Per 80 Mg [facility]#3727-6228-73 Reviewed 08/21/2013 12:00 AM X-RAY EXAM OF [...] Reviewed 03/26/2015 12:00 AM Rocephin 1 gram [facility]#5068-9624-93 Reviewed 04/01/2015 12:00 AM COMPLETE CBC W/AUTO DIFF WBC Reviewed 04/01/2015 12:00 AM COMPREHEN METABOLIC PANEL Reviewed 04/01/2015 12:00 AM ASSAY THYROID STIM HORMONE Reviewed 04/01/2015 12:00 AM CHEST X-RAY 2VW FRONTAL&LATL Reviewed 05/07/2015 12:00 AM THER/PROPH/DIAG INJ SC/IM Reviewed 05/07/2015 12:00 AM Decadron injection Reviewed 05/07/2015 12:00 AM Depo-Medrol 40mg Reviewed 05/11/2011 12:00 AM Depo-Medrol 80 Mg [facility] [id number] Reviewed 05/11/2011 12:00 AM Decadron Inj. per 1mg-[facility] [id number]-Savmvktly Reviewed Results Summary Date and Description Results [...] Vis Given Vis Pub CVX Tdap 04/26/2012 [employer] SKB ADACEL [id number] Intramuscular Left Arm 04/26/2012 08/19/2008 115 Tdap 03/14/2014 [employer] SKB BOOSTRIX [id number] Intramuscular Left Deltoid 03/14/2014 02/07/2013 115 Influenza 06/22/2015 unamia. NOV Fluvirin [id number] Intramuscular Left Deltoid 06/23/2015 05/08/2015 140 Pneumococcal 09/16/2015 Not Entered NE Pneumovax 23 Intramuscular Not Entered 11/11/2016 10/02/2018 33 Influenza 07/07/2017 [facility] Fluzone Quadrivalent [id number] Intramuscular Left Deltoid 07/07/2017 05/08/2015 150 History [...] for breast cancer Nov 13 2017 4:10PM Payers Insurance Name Company Name Plan Name Plan Number Policy Number Policy Group Number Start Date [employer] [place] [id number] N/A [employer] Financial Assistance [employer] [facility] Financial Alex 40 percent clinic October [employer] [place] [id number] Friday, October 02, 2009 [employer] [place] [id number] November [employer] Self Insurance Fund *INVALID State Self Insurance [id number] N/A [facility] Self Insurance Fund *INVALID State Self Insurance [id number] N/A [employer] [place] [id number] July [employer] [place] [id number] September History of Encounters Visit Date Visit Type Provider 10/27/2017 Office visit Fredis Rico DO 10/23/2017 Office visit Sean Marie MD 09/20/2017 Office visit Fredis Rico DO 08/31/2017 Office visit Fredis Rico DO 08/09/2017 Office visit Sean aMrie MD 07/07/2017 Office visit Sean Marie MD 06/16/2017 Office visit Sean Marie MD 05/15/2017 Office visit Sean Marie MD 04/23/2017 Office visit Aurora Martin SYSTEMS ANALYST 04/14/2017 Office visit Sean Marie MD 03/20/2017 Office visit Sean Marie MD 03/03/2017 Office visit Aurora Martin SYSTEMS ANALYST 01/09/2017 Office visit Sean Marie MD 01/02/2017 [...] Marie MD 01/16/2016 Office visit Jania Stanley SYSTEMS ANALYST 01/07/2016 [facility] Michelle Greco MD 12/31/2015 Office visit Sean Marie MD 12/09/2015 Office visit Miguel A Munoz SYSTEMS ANALYST 11/17/2015 Office visit Sean Marie MD 11/03/2015 Office visit Sean Marie MD 10/09/2015 Office visit 10/09/2015 Office visit Sean Marie MD 08/31/2015 Office visit Sean Marie MD 08/25/2015 Office visit Sean Marie MD 06/05/2015 Office visit Sean Marie MD 05/07/2015 Office visit Amaris Gentile SYSTEMS ANALYST 05/06/2015 Office visit Kiarra Ramos SYSTEMS ANALYST 04/01/2015 Office visit 04/01/2015 Office visit Sean Marie MD 04/01/2015 [facility] Greco MD 03/26/2015 Office visit Sean Marie MD 03/19/2015 Office visit Sean Marie MD 02/13/2015 Office visit Sean Marie MD 01/26/2015 Office visit Leena Haddad SYSTEMS ANALYST 01/12/2015 Office visit Sean Marie MD 11/24/2014 Office visit Kiarra Ramos SYSTEMS ANALYST 10/22/2014 Office visit Miguel A Munoz SYSTEMS ANALYST 08/22/2014 Office visit Sean Marie MD 08/01/2014 Office visit Sean Marie MD 06/09/2014 Office visit Kiarra Ramos SYSTEMS ANALYST 03/14/2014 Office visit Leena Haddad SYSTEMS ANALYST 02/27/2014 Office visit Leena Haddad SYSTEMS ANALYST 12/02/2013 Office visit Sean Marie MD 11/25/2013 Office visit Sean Marie MD 11/14/2013 Office visit Kiarra Ramos SYSTEMS ANALYST 08/21/2013 Office visit Leena Haddad SYSTEMS ANALYST 08/09/2013 Office visit Kiarra Ramos SYSTEMS ANALYST 06/26/2013 [facility] Greco MD 06/26/2013 Office visit Sean Marie MD 06/21/2013 Office visit Kiarra Richard SYSTEMS ANALYST 05/31/2013 Office visit Leena Haddad SYSTEMS ANALYST 05/10/2013 Office visit Leena Haddad SYSTEMS ANALYST 05/03/2013 Office visit Leena Haddad SYSTEMS ANALYST 03/27/2013 Office visit Kiarra Ramos SYSTEMS ANALYST 03/05/2013 Office visit Kiarra Ramos SYSTEMS ANALYST 02/27/2013 Office visit Kiarra Ramos SYSTEMS ANALYST 01/08/2013 Office visit Sean Marie MD 10/30/2012 Office visit Sean Marie MD 04/26/2012 Nurse visit Maria Antonia Barakat SYSTEMS ANALYST 02/07/2012 Office visit Sean Marie MD 02/07/2012 [facility] Marcela Greco MD 12/13/2011 Office visit Sean Marie MD 11/08/2011 Office visit Sean Marie MD 10/24/2011 Office visit Sean Marie MD 08/05/2011 Office visit Sean Marie MD 07/12/2011 Office visit Kiarra Ramos SYSTEMS ANALYST 05/11/2011 Office visit Sean Marie MD 04/19/2011 [...]
--- OUTSIDE RECORDS SUMMARY | 2018-07-18 12:37 | XMS REPORT ---
Author Author Sean Marie [facility] Address [address] [place], [place] [id number] Care Team Providers Care Psychological Examiner Name Role Phone Sean Marie PCP Unavailable [...] TABLET BY MOUTH EVERY DAY AT BEDTIME [place] Thyroid 60 mg oral tablet 04/07/2014 TAKE ONE TABLET BY MOUTH ONCE DAILY lovastatin 40 mg oral tablet 06/12/2014 take 1 tablet by oral route daily [place] Thyroid 60 mg oral tablet 08/04/2014 TAKE [...] TAKE ONE TABLET BY MOUTH ONCE DAILY [place] Thyroid 60 mg oral tablet 07/13/2015 TAKE [...] TAKE ONE TABLET BY MOUTH ONCE DAILY orphenadrine citrate 100 mg oral tablet extended release 12/31/2015 04/29/2016 take 1 tablet (100 mg) by oral route 2 times per day in the morning and evening for 30 days Name Start Date Expiration [...] once daily at bedtime for 30 days [place] Thyroid 60 mg oral tablet 12/02/2013 04/01/2014 [...] by oral route once daily at bedtime [place] 5-325 mg oral tablet 08/22/2014 11/24/2014 take [...] HC BMI BSA BMI Percentile O2 Sat(%) 12/31/2015 2:34:00 PM 144 mmHg 82 mmHg [...] 12:00 AM Decadron, Per 1 Mg [facility]# [address]-42 Reviewed 08/25/2015 12:00 AM Depo-Medrol, Per 80 Mg [facility]#[address]-37 Reviewed 08/25/2015 12:00 AM Rocephin 1 gram [facility]#6063-5494-23 Reviewed 10/09/2015 12:00 AM COMPLETE CBC W/AUTO DIFF WBC Reviewed 10/09/2015 12:00 AM COMPREHEN METABOLIC PANEL Reviewed 10/09/2015 12:00 AM GLYCOSYLATED HEMOGLOBIN TEST Reviewed 10/09/2015 12:00 AM ASSAY THYROID STIM HORMONE Reviewed 11/03/2015 8:54 AM URINALYSIS AUTO W/O SCOPE Reviewed 11/03/2015 12:[address] HEAD/BRAIN W/O & W/DYE Reviewed 11/17/2015 12:00 AM Rocephin 1 gram [facility]#5348-0987-29 Reviewed 08/05/2011 12:00 AM CHEST X-RAY 2VW FRONTAL&LATL Reviewed 12/09/2015 12:00 AM THER/PROPH/DIAG INJ SC/IM Reviewed 12/09/2015 12:00 AM Rocephin 1 gram [facility]#0368-7083-37 Reviewed 12/13/2011 12:00 AM X-RAY EXAM OF [...] 12:00 AM Decadron, Per 1 Mg [facility]# [address]-94 Reviewed 10/30/2012 12:00 AM COMPLETE CBC W/AUTO DIFF WBC Reviewed 10/30/2012 12:00 AM COMPREHEN METABOLIC PANEL Reviewed 10/30/2012 12:00 AM LIPID PANEL Reviewed 10/30/2012 12:00 AM ASSAY THYROID STIM HORMONE Reviewed 01/08/2013 12:00 AM Depo-Medrol 80 Mg Im/C'pancho Reviewed 01/08/2013 12:00 AM Decadron, Per 1 Mg [facility]# [address]-35 Reviewed 01/08/2013 12:00 AM Rocephin 1 gram [facility]#4963-4791-25 Reviewed 01/08/2013 12:00 AM COMPREHEN METABOLIC PANEL Reviewed 01/08/2013 12:00 AM GLYCOSYLATED HEMOGLOBIN TEST Reviewed 01/08/2013 12:00 AM ASSAY THYROID STIM HORMONE Reviewed 01/08/2013 12:00 AM ASSAY OF PARATHORMONE Reviewed 01/08/2013 12:00 AM LIPID PANEL Reviewed 02/27/2013 12:00 AM THER/PROPH/DIAG INJ SC/IM Reviewed 02/27/2013 12:00 AM Decadron, Per 1 Mg [facility]# [address]-06 Reviewed 02/27/2013 12:00 AM Depo-Medrol, Per 80 Mg [facility]#9671-8820-78 Reviewed 03/04/2013 12:00 AM MAMMOGRAM SCREENING Returned 03/05/2013 12:00 AM CYTOPATH TBS C/V MANUAL Returned 03/05/2013 12:00 AM MAMMOGRAM BOTH BREASTS Returned 03/27/2013 12:00 AM THER/PROPH/DIAG INJ SC/IM Reviewed 03/27/2013 12:00 AM Bicillin CR, 1.2 million units [facility]# 84205-496-75 Reviewed 05/10/2013 12:00 AM X-RAY EXAM KNEE [...] 12:00 AM Decadron, Per 1 Mg [facility]# [address]-09 Reviewed 08/09/2013 12:00 AM Depo-Medrol, Per 80 Mg [facility]#7805-8248-56 Reviewed 08/21/2013 12:00 AM X-RAY EXAM OF [...] 03/26/2015 12:00 AM Rocephin 1 gram [facility]#4306-2152-97 Reviewed 04/01/2015 12:00 AM COMPLETE CBC W/AUTO DIFF WBC Reviewed 04/01/2015 12:00 AM COMPREHEN METABOLIC PANEL Reviewed 04/01/2015 12:00 AM ASSAY THYROID STIM HORMONE Reviewed 04/01/2015 12:00 AM CHEST X-RAY 2VW FRONTAL&LATL Reviewed 05/07/2015 12:00 AM THER/PROPH/DIAG INJ SC/IM Reviewed 05/07/2015 12:00 AM Decadron injection Reviewed 05/07/2015 12:00 AM Depo-Medrol 40mg Reviewed 05/11/2011 12:00 AM Depo-Medrol 80 Mg [facility] [id number] Reviewed 05/11/2011 12:00 AM Decadron Inj. per 1mg-[facility] [id number] Reviewed Results Summary Data and Description Results [...] 0.40 mg/ dLCALCIUM 9.80 mg/dLeGFR >60 mL/min/1.73 [id number] 250.0 mg/dLCHOLESTEROL 180.0 mg/dLHDL 39.0 mg/dLLDL (CALC) [...] 0.30 mg/dLCALCIUM 9.70 mg/dLeGFR >60 mL/min/1.73mTSH 1.80 uIU/mLHemoglobin A1c 5.80 % 11/03/2015 8:54 AM Clarity Ur clear Color [...] >60 mL/min/1.73m TSH 2.160 uIU/mLVITAMIN B12 513.0 pg/mLHemoglobin A1c 6.10 %RPR Non Reactive VITAMIN D 52.40 ng/mLCopper, Serum 140.0 ug/dL 11/28/2015 12:10 PM AChR Binding Abs, Serum <0.03 nmol/L History Of Immunizations Name Date Admin Mfg Name Mfg Code Trade Name Lot# Route Inj Vis Given Vis Pub CVX Tdap 04/26/2012 GlaxBuzzoole SKB ADACEL [id number] Intramuscular Left Arm 04/26/2012 08/19/2008 115 Tdap 03/14/2014 GlaxBuzzoole SKB BOOSTRIX [id number] Intramuscular Left Deltoid 03/14/2014 02/07/2013 115 Influenza 06/22/2015 Tastemade. NOV Fluvirin [id number] Intramuscular Left Deltoid 06/23/2015 05/08/2015 140 History [...] 2015 5:20PM Fibromyalgia Dec 31 2015 2:40PM Payers Insurance Name Company Name Plan Name Plan Number Policy Number Policy Group Number [id number] September [employer] Alex 40 percent clinic October [facility] [id number] Tuesday, August 30, 2011 [facility] [id number] November [employer] Self Insurance Fund *INVALID State Self Insurance [id number] N/A [employer] Self Insurance Fund *INVALID State Self Insurance [id number] N/A BCBS [facility] [id number] July History of Encounters Visit Date Visit Type Provider 12/31/2015 Office visit Sean aMrie MD 12/09/2015 Office visit Miguel A Munoz LABELING SPECIALIST 11/17/2015 Office visit Sean Marie MD 11/03/2015 Office visit Sean Marie MD 10/09/2015 Office visit 10/09/2015 Office visit Sean Marie MD 08/31/2015 Office visit Sean Marie MD 08/25/2015 Office visit Sean Marie MD 06/05/2015 Office visit Sean Marie MD 05/07/2015 Office visit Amaris Gentile LABELING SPECIALIST 05/06/2015 Office visit Kiarra Ramos LABELING SPECIALIST 04/01/2015 Office visit 04/01/2015 Office visit Sean Marie MD 04/01/2015 Hospital Michelle Greco MD 03/26/2015 Office visit Sean Marie MD 03/19/2015 Office visit Sean Marie MD 02/13/2015 Office visit Sean Marie MD 01/26/2015 Office visit Leena Haddad LABELING SPECIALIST 01/12/2015 Office visit Sean Marie MD 11/24/2014 Office visit Kiarra Ramos LABELING SPECIALIST 10/22/2014 Office visit Miguel A Munoz LABELING SPECIALIST 08/22/2014 Office visit Sean Marie MD 08/01/2014 Office visit Sean Marie MD 06/09/2014 Office visit Kiarra Ramos LABELING SPECIALIST 03/14/2014 Office visit Leena Haddad LABELING SPECIALIST 02/27/2014 Office visit Leena Haddad LABELING SPECIALIST 12/02/2013 Office visit Sean Marie MD 11/25/2013 Office visit Sean Marie MD 11/14/2013 Office visit Kiarra Ramos LABELING SPECIALIST 08/21/2013 Office visit Leena Haddad LABELING SPECIALIST 08/09/2013 Office visit Kiarra Ramos LABELING SPECIALIST 06/26/2013 [facility] Michelle Greco MD 06/26/2013 Office visit Sean Marie MD 06/21/2013 Office visit Kiarra Ramos LABELING SPECIALIST 05/31/2013 Office visit Leena Haddad LABELING SPECIALIST 05/10/2013 Office visit Leena Haddad LABELING SPECIALIST 05/03/2013 Office visit Leena Haddad LABELING SPECIALIST 03/27/2013 Office visit Kiarra Ramos LABELING SPECIALIST 03/05/2013 Office visit Kiarra Richard LABELING SPECIALIST 02/27/2013 Office visit Kiarra Ramos LABELING SPECIALIST 01/08/2013 Office visit Sean Marie MD 10/30/2012 Office visit Sean Marie MD 04/26/2012 Nurse visit Maria Antonia Barakat LABELING SPECIALIST 02/07/2012 Office visit Sean Marie MD 02/07/2012 [facility] Marcela Greco MD 12/13/2011 Office visit Sean Marie MD 11/08/2011 Office visit Sean Marie MD 10/24/2011 Office visit Sean Marie MD 08/05/2011 Office visit Sean Marie MD 07/12/2011 Office visit Kiarra Ramos LABELING SPECIALIST 05/11/2011 Office visit Sean Marie MD 04/19/2011 [...]
--- OUTSIDE RECORDS SUMMARY | 2018-07-18 12:39 | XMS REPORT ---
Author Author Sean Marie [facility] Address [address] [place], [place] [id number] Care Team Providers Care Cage Fighter Name Role Phone Sean Marie PCP Unavailable [...] TABLET BY MOUTH EVERY DAY AT BEDTIME [place] Thyroid 60 mg oral tablet 04/07/2014 TAKE ONE TABLET BY MOUTH ONCE DAILY lovastatin 40 mg oral tablet 06/12/2014 take 1 tablet by oral route daily [place] Thyroid 60 mg oral tablet 08/04/2014 TAKE [...] TABLET BY MOUTH ONCE DAILY AT BEDTIME [place] Thyroid 60 mg oral tablet 07/13/2015 TAKE [...] TABLET BY MOUTH ONCE DAILY AT BEDTIME [place] Thyroid 60 mg oral tablet 07/11/2016 TAKE [...] 30 days oxycodone 15 mg oral tablet 04/10/2017 take 1 tablet (15 mg) by oral route every 4 hours OxyContin 40 mg oral tablet,oral only,ext.rel.12 hr 04/14/2017 05/14/2017 take 1 tablet (40 mg) by oral [...] once daily at bedtime for 30 days [place] Thyroid 60 mg oral tablet 12/02/2013 04/01/2014 [...] by oral route once daily at bedtime [place] 5-325 mg oral tablet 08/22/2014 11/24/2014 take [...] HC BMI BSA BMI Percentile O2 Sat(%) 04/14/2017 8:26:00 AM 140 mmHg 82 mmHg [...] 08/25/2015 12:00 AM Decadron, Per 1 Mg [facility]# [address]-59 Reviewed 08/25/2015 12:00 AM Depo-Medrol, Per 80 Mg [facility]#[address]-53 Reviewed 08/25/2015 12:00 AM Rocephin 1 gram [facility]#1762-4210-97 Reviewed 10/09/2015 12:00 AM COMPLETE CBC W/AUTO DIFF WBC Reviewed 10/09/2015 12:00 AM COMPREHEN METABOLIC PANEL Reviewed 10/09/2015 12:00 AM GLYCOSYLATED HEMOGLOBIN TEST Reviewed 10/09/2015 12:00 AM ASSAY THYROID STIM HORMONE Reviewed 11/03/2015 8:54 AM URINALYSIS AUTO W/O SCOPE Reviewed 11/03/2015 12:[address] HEAD/BRAIN W/O & W/DYE Reviewed 11/17/2015 12:00 AM Rocephin 1 gram [facility]#8058-3738-72 Reviewed 08/05/2011 12:00 AM CHEST X-RAY 2VW FRONTAL&LATL Reviewed 12/09/2015 12:00 AM THER/PROPH/DIAG INJ SC/IM Reviewed 12/09/2015 12:00 AM Rocephin 1 gram [facility]#6443-1124-29 Reviewed 11/08/2011 12:00 AM Decadron Inj. per 1mg-[facility] [id number] Reviewed 11/08/2011 12:00 AM Depo-Medrol 80 Mg [facility] [id number] Reviewed 05/20/2016 12:00 AM COMPLETE CBC W/AUTO [...] BACT XCPT URINE BLOOD/STOOL AEROBIC ISOL Reviewed 10/30/2012 12:00 AM Depo-Medrol 80 Mg Im/C'pancho Reviewed 10/30/2012 12:00 AM Decadron, Per 1 Mg [facility]# [address]-33 Reviewed 10/30/2012 12:00 AM COMPLETE CBC W/AUTO DIFF WBC Reviewed 10/30/2012 12:00 AM COMPREHEN METABOLIC PANEL Reviewed 10/30/2012 12:00 AM LIPID PANEL Reviewed 10/30/2012 12:00 AM ASSAY THYROID STIM HORMONE Reviewed 01/08/2013 12:00 AM Depo-Medrol 80 Mg Im/C'pancho Reviewed 01/08/2013 12:00 AM Decadron, Per 1 Mg [facility]# [address]-63 Reviewed 01/08/2013 12:00 AM Rocephin 1 gram [facility]#2467-1699-62 Reviewed 01/08/2013 12:00 AM COMPREHEN METABOLIC PANEL Reviewed 01/08/2013 12:00 AM GLYCOSYLATED HEMOGLOBIN TEST Reviewed 01/08/2013 12:00 AM ASSAY THYROID STIM HORMONE Reviewed 01/08/2013 12:00 AM ASSAY OF PARATHORMONE Reviewed 01/08/2013 12:00 AM LIPID PANEL Reviewed 02/27/2013 12:00 AM THER/PROPH/DIAG INJ SC/IM Reviewed 02/27/2013 12:00 AM Decadron, Per 1 Mg [place]# [address]-04 Reviewed 02/27/2013 12:00 AM Depo-Medrol, Per 80 Mg [facility]#9513-1418-99 Reviewed 03/04/2013 12:00 AM MAMMOGRAM SCREENING Reviewed 03/05/2013 12:00 AM CYTOPATH TBS C/V MANUAL Reviewed 03/05/2013 12:00 AM MAMMOGRAM BOTH BREASTS Reviewed 03/27/2013 12:00 AM THER/PROPH/DIAG INJ SC/IM Reviewed 03/27/2013 12:00 AM Bicillin CR, 1.2 million units [facility]# 81617-837-81 Reviewed 05/10/2013 12:00 AM X-RAY EXAM KNEE [...] 08/09/2013 12:00 AM Decadron, Per 1 Mg [facility]# [address]-43 Reviewed 08/09/2013 12:00 AM Depo-Medrol, Per 80 Mg [facility]#9999-5497-44 Reviewed 08/21/2013 12:00 AM X-RAY EXAM OF [...] Reviewed 03/26/2015 12:00 AM Rocephin 1 gram [facility]#3160-6595-53 Reviewed 04/01/2015 12:00 AM COMPLETE CBC W/AUTO DIFF WBC Reviewed 04/01/2015 12:00 AM COMPREHEN METABOLIC PANEL Reviewed 04/01/2015 12:00 AM ASSAY THYROID STIM HORMONE Reviewed 04/01/2015 12:00 AM CHEST X-RAY 2VW FRONTAL&LATL Reviewed 05/07/2015 12:00 AM THER/PROPH/DIAG INJ SC/IM Reviewed 05/07/2015 12:00 AM Decadron injection Reviewed 05/07/2015 12:00 AM Depo-Medrol 40mg Reviewed 05/11/2011 12:00 AM Depo-Medrol 80 Mg [facility] [id number] Reviewed 05/11/2011 12:00 AM Decadron Inj. per 1mg-[facility] [id number] Reviewed Results Summary Date and Description Results [...] Vis Given Vis Pub CVX Tdap 04/26/2012 GlaxClovis Oncologyine SKB ADACEL [id number] Intramuscular Left Arm 04/26/2012 08/19/2008 115 Tdap 03/14/2014 GlaxoSmithKline SKB BOOSTRIX [id number] Intramuscular Left Deltoid 03/14/2014 02/07/2013 115 Influenza 06/22/2015 [employer] Pamela. NOV Fluvirin [id number] Intramuscular Left Deltoid 06/23/2015 05/08/2015 140 Pneumococcal [...] 2017 8:32AM Dyspnea Apr 14 2017 8:32AM Payers Insurance Name Company Name Plan Name Plan Number Policy Number Policy Group Number [facility] Date [id number] September [employer] Alex 40 percent clinic October [facility] [id number] Friday, October 02, 2009 BCBS [facility] [facility] [employer] [id number] November [employer] Self Insurance Fund *INVALID State Self Insurance [id number] N/A [employer] Self Insurance Fund *INVALID State Self Insurance [id number] N/A BCBS [facility] [facility] [employer] [id number] July History of Encounters Visit Date Visit Type Provider 04/14/2017 Office visit Sean Marie MD 03/20/2017 Office visit Sean Marie MD 03/03/2017 Office visit Aurora SalmeornEd Martin PEDIATRIC LPN 01/09/2017 Office visit Sean Marie MD 01/02/2017 [...] Marie MD 01/16/2016 Office visit Jania Stanley PEDIATRIC LPN 01/07/2016 Hospital Michelle Greco MD 12/31/2015 Office visit Sean Marie MD 12/09/2015 Office visit Miguel A Munoz PEDIATRIC LPN 11/17/2015 Office visit Sean Marie MD 11/03/2015 Office visit Sean Marie MD 10/09/2015 Office visit 10/09/2015 Office visit Sean Marie MD 08/31/2015 Office visit Sean Marie MD 08/25/2015 Office visit Sean Marie MD 06/05/2015 Office visit Sean Marie MD 05/07/2015 Office visit Amaris Gentile PEDIATRIC LPN 05/06/2015 Office visit Kiarra Ramos PEDIATRIC LPN 04/01/2015 Office visit 04/01/2015 Office visit Sean Marie MD 04/01/2015 Hospital Michelle Greco MD 03/26/2015 Office visit Sean Marie MD 03/19/2015 Office visit Sean Marie MD 02/13/2015 Office visit Sean Marie MD 01/26/2015 Office visit Leena Haddad PEDIATRIC LPN 01/12/2015 Office visit Sean Marie MD 11/24/2014 Office visit Kiarra Ramos PEDIATRIC LPN 10/22/2014 Office visit Miguel A Munoz PEDIATRIC LPN 08/22/2014 Office visit Sean Marie MD 08/01/2014 Office visit Sean Marie MD 06/09/2014 Office visit Kiarra Ramos PEDIATRIC LPN 03/14/2014 Office visit Leena Haddad PEDIATRIC LPN 02/27/2014 Office visit Leena Haddad PEDIATRIC LPN 12/02/2013 Office visit Sean Marie MD 11/25/2013 Office visit Sean Marie MD 11/14/2013 Office visit Kiarra Ramos PEDIATRIC LPN 08/21/2013 Office visit Leena Haddad PEDIATRIC LPN 08/09/2013 Office visit Kiarra Ramos PEDIATRIC LPN 06/26/2013 Hospital Michelle Greco MD 06/26/2013 Office visit Sean Marie MD 06/21/2013 Office visit Kiarra Ramos PEDIATRIC LPN 05/31/2013 Office visit Leena Haddad PEDIATRIC LPN 05/10/2013 Office visit Leena Haddad PEDIATRIC LPN 05/03/2013 Office visit Leena Haddad PEDIATRIC LPN 03/27/2013 Office visit Kiarra Ramos PEDIATRIC LPN 03/05/2013 Office visit Kiarra Ramos PEDIATRIC LPN 02/27/2013 Office visit Kiarra Ramos PEDIATRIC LPN 01/08/2013 Office visit Sean Marie MD 10/30/2012 Office visit Sean Marie MD 04/26/2012 Nurse visit Maria Antonia Barakat PEDIATRIC LPN 02/07/2012 Office visit Sean Marie MD 02/07/2012 Hospital Michelle Greco MD 12/13/2011 Office visit Sean Marie MD 11/08/2011 Office visit Sean Marie MD 10/24/2011 Office visit Sean Marie MD 08/05/2011 Office visit Sean Marie MD 07/12/2011 Office visit Kiarra Ramos PEDIATRIC LPN 05/11/2011 Office visit Sean Marie MD 04/19/2011 [...]
--- OUTSIDE RECORDS SUMMARY | 2018-07-18 12:42 | XMS REPORT ---
Author Author Sean Marie [facility] Address [address] [place], [place] [id number] Care Team Providers Care Grade Teacher Name Role Phone Sean Marie PCP Sean [...] once daily at bedtime for 30 days CLASSIFIED ADVERTISING CLERK Thyroid 60 mg oral tablet 07/31/2017 07/31/2017 TAKE ONE TABLET BY MOUTH ONCE DAILY Toviaz 8 mg oral tablet extended release 24 hr 09/26/2017 09/26/2017 TAKE ONE TABLET BY MOUTH ONCE DAILY ropinirole 4 mg oral tablet 10/10/2017 10/10/2017 TAKE ONE TABLET BY MOUTH ONCE DAILY 1-3 HOURS BEFORE BEDTIME Discontinued Name Start Date Discontinued Date SIG [...] by oral route 2 times per day [place] Thyroid 60 mg oral tablet 12/02/2013 take 1 tablet by oral route daily for 30 days [place] Thyroid 60 mg oral tablet 04/07/2014 TAKE ONE TABLET BY MOUTH ONCE DAILY milk thistle oral 11/24/2014 chromium picolinate oral 06/09/2014 Zofran ODT oral 10/09/2015 Dexilant 60 mg oral capsule,biphase delayed releas 07/09/2014 11/24/2014 TAKE ONE CAPSULE BY MOUTH EVERY DAY [place] Thyroid 60 mg oral tablet 08/04/2014 TAKE [...] by oral route once daily at bedtime Bert[place] 5-325 mg oral tablet 08/22/2014 11/24/2014 take [...] by topical route 2 times per day [place] Thyroid 60 mg oral tablet 07/13/2015 TAKE [...] daily in the morning for 30 days [place] Thyroid 60 mg oral tablet 07/11/2016 08/09/2017 [...] HC BMI BSA BMI Percentile O2 Sat(%) 10/23/2017 8:32:00 AM 166 mmHg 84 mmHg [...] 12:00 AM Decadron, Per 1 Mg [facility]# [address]-67 Reviewed 08/25/2015 12:00 AM Depo-Medrol, Per 80 Mg [facility]#[address]-52 Reviewed 08/25/2015 12:00 AM Rocephin 1 gram [facility]#5887-4247-19 Reviewed 10/09/2015 12:00 AM COMPLETE CBC W/AUTO DIFF WBC Reviewed 10/09/2015 12:00 AM COMPREHEN METABOLIC PANEL Reviewed 10/09/2015 12:00 AM GLYCOSYLATED HEMOGLOBIN TEST Reviewed 10/09/2015 12:00 AM ASSAY THYROID STIM HORMONE Reviewed 11/03/2015 8:54 AM URINALYSIS AUTO W/O SCOPE Reviewed 11/03/2015 12:[address] HEAD/BRAIN W/O & W/DYE Reviewed 11/17/2015 12:00 AM Rocephin 1 gram [facility]#6754-1273-41 Reviewed 08/05/2011 12:00 AM CHEST X-RAY 2VW FRONTAL&LATL Reviewed 12/09/2015 12:00 AM THER/PROPH/DIAG INJ SC/IM Reviewed 12/09/2015 12:00 AM Rocephin 1 gram [facility]#0431-5050-72 Reviewed 11/08/2011 12:00 AM Decadron Inj. per 1mg-[facility] [id number] Reviewed 11/08/2011 12:00 AM Depo-Medrol 80 Mg [facility] [id number] Reviewed 05/20/2016 12:00 AM COMPLETE CBC W/AUTO [...] 12:00 AM Decadron, Per 1 Mg [facility]# [address]-48 Reviewed 10/30/2012 12:00 AM COMPLETE CBC W/AUTO DIFF WBC Reviewed 10/30/2012 12:00 AM COMPREHEN METABOLIC PANEL Reviewed 10/30/2012 12:00 AM LIPID PANEL Reviewed 10/30/2012 12:00 AM ASSAY THYROID STIM HORMONE Reviewed 01/08/2013 12:00 AM Depo-Medrol 80 Mg Im/C'pancho Reviewed 01/08/2013 12:00 AM Decadron, Per 1 Mg [facility]# [address]-82 Reviewed 01/08/2013 12:00 AM Rocephin 1 gram [facility]#1804-6022-42 Reviewed 01/08/2013 12:00 AM COMPREHEN METABOLIC PANEL Reviewed 01/08/2013 12:00 AM GLYCOSYLATED HEMOGLOBIN TEST Reviewed 01/08/2013 12:00 AM ASSAY THYROID STIM HORMONE Reviewed 01/08/2013 12:00 AM ASSAY OF PARATHORMONE Reviewed 01/08/2013 12:00 AM LIPID PANEL Reviewed 02/27/2013 12:00 AM THER/PROPH/DIAG INJ SC/IM Reviewed 02/27/2013 12:00 AM Decadron, Per 1 Mg [facility]# [address]-12 Reviewed 02/27/2013 12:00 AM Depo-Medrol, Per 80 Mg [facility]#6212-0888-35 Reviewed 03/04/2013 12:00 AM MAMMOGRAM SCREENING Reviewed 03/05/2013 12:00 AM CYTOPATH TBS C/V MANUAL Reviewed 03/05/2013 12:00 AM MAMMOGRAM BOTH BREASTS Reviewed 03/27/2013 12:00 AM THER/PROPH/DIAG INJ SC/IM Reviewed 03/27/2013 12:00 AM Bicillin CR, 1.2 million units [facility]# 70908-576-07 Reviewed 05/10/2013 12:00 AM X-RAY EXAM KNEE [...] 12:00 AM Decadron, Per 1 Mg [facility]# [address]-40 Reviewed 08/09/2013 12:00 AM Depo-Medrol, Per 80 Mg [facility]#0240-065[address]-38 Reviewed 08/21/2013 12:00 AM X-RAY EXAM OF [...] 03/26/2015 12:00 AM Rocephin 1 gram [facility]#2367-2237-32 Reviewed 04/01/2015 12:00 AM COMPLETE CBC W/AUTO DIFF WBC Reviewed 04/01/2015 12:00 AM COMPREHEN METABOLIC PANEL Reviewed 04/01/2015 12:00 AM ASSAY THYROID STIM HORMONE Reviewed 04/01/2015 12:00 AM CHEST X-RAY 2VW FRONTAL&LATL Reviewed 05/07/2015 12:00 AM THER/PROPH/DIAG INJ SC/IM Reviewed 05/07/2015 12:00 AM Decadron injection Reviewed 05/07/2015 12:00 AM Depo-Medrol 40mg Reviewed 05/11/2011 12:00 AM Depo-Medrol 80 Mg [facility] [id number] Reviewed 05/11/2011 12:00 AM Decadron Inj. per 1mg-[facility] [id number] Reviewed Results Summary Date and Description Results [...] Vis Given Vis Pub CVX Tdap 04/26/2012 sarvaMAIL SKB ADACEL [id number] Intramuscular Left Arm 04/26/2012 08/19/2008 115 Tdap 03/14/2014 sarvaMAIL SKB BOOSTRIX [id number] Intramuscular Left Deltoid 03/14/2014 02/07/2013 115 Influenza 06/22/2015 [place]. NOV Fluvirin [id number] Intramuscular Left Deltoid 06/23/2015 05/08/2015 140 Pneumococcal 09/16/2015 Not Entered NE Pneumovax 23 Intramuscular Not Entered 11/11/2016 10/02/2018 33 Influenza 07/07/2017 sanofi pasteur PMC Fluzone Quadrivalent [id number] Intramuscular Left Deltoid 07/07/2017 05/08/2015 150 History [...] 8:38AM Pulmonary embolism Oct 23 2017 8:38AM Payers Insurance Name Company Name Plan Name Plan Number Policy Number Policy Group Number Start Date BCBS Bcbs [facility] [id number] N/A [employer] Alex 40 percent clinic October BCBS Bcbs [facility] [id number] Friday, October 02, 2009 BCBS [employer]cbs [facility] [id number] November [place] Self Insurance Fund *INVALID State Self Insurance [id number] N/A [employer] Self Insurance Fund *INVALID State Self Insurance [id number] N/A BCBS [employer] [place] [id number] July BCBS [employer] [place] [id number] September History of Encounters Visit Date Visit Type Provider 10/23/2017 Office visit Sean Marie MD 09/20/2017 Office visit Fredis Rico DO 08/31/2017 Office visit Fredis Rico DO 08/09/2017 Office visit Sean Marie MD 07/07/2017 Office visit Sean Marie MD 06/16/2017 Office visit Sean Marie MD 05/15/2017 Office visit Sean Marie MD 04/23/2017 Office visit Aurora Martin CAKE WASHER 04/14/2017 Office visit Sean Marie MD 03/20/2017 Office visit Sean Marie MD 03/03/2017 Office visit Aurora Martin CAKE WASHER 01/09/2017 Office visit Sean Marie MD 01/02/2017 [...] Marie MD 01/16/2016 Office visit Jania Stanley CAKE WASHER 01/07/2016 Hospital Michelle Greco MD 12/31/2015 Office visit Sean Marie MD 12/09/2015 Office visit Miguel A Munoz CAKE WASHER 11/17/2015 Office visit Sean Marie MD 11/03/2015 Office visit Sean Marie MD 10/09/2015 Office visit 10/09/2015 Office visit Sean Maire MD 08/31/2015 Office visit Sean Marie MD 08/25/2015 Office visit Sean Marie MD 06/05/2015 Office visit Sean Marie MD 05/07/2015 Office visit Amaris Gentile CAKE WASHER 05/06/2015 Office visit Kiarra Ramos CAKE WASHER 04/01/2015 Office visit 04/01/2015 Office visit Sean Marie MD 04/01/2015 Hospital Michelle Greco MD 03/26/2015 Office visit Sean Marie MD 03/19/2015 Office visit Sean Marie MD 02/13/2015 Office visit Sean Marie MD 01/26/2015 Office visit Leena Haddad CAKE WASHER 01/12/2015 Office visit Sean Marie MD 11/24/2014 Office visit Kiarra Ramos CAKE WASHER 10/22/2014 Office visit Miguel A Munoz CAKE WASHER 08/22/2014 Office visit Sean Marie MD 08/01/2014 Office visit Sean Marie MD 06/09/2014 Office visit Kiarra Ramos CAKE WASHER 03/14/2014 Office visit Leena Haddad CAKE WASHER 02/27/2014 Office visit Leena Haddad CAKE WASHER 12/02/2013 Office visit Sean Marie MD 11/25/2013 Office visit Sean Marie MD 11/14/2013 Office visit Kiarra Ramos CAKE WASHER 08/21/2013 Office visit Leena Haddad CAKE WASHER 08/09/2013 Office visit Kiarra Ramos CAKE WASHER 06/26/2013 Hospital Michelle Greco MD 06/26/2013 Office visit Sean Marie MD 06/21/2013 Office visit iKarra Ramos CAKE WASHER 05/31/2013 Office visit Leena Haddad CAKE WASHER 05/10/2013 Office visit Leena Haddad CAKE WASHER 05/03/2013 Office visit Leena Haddad CAKE WASHER 03/27/2013 Office visit Kiarra Ramos CAKE WASHER 03/05/2013 Office visit Kiarra Ramos CAKE WASHER 02/27/2013 Office visit Kiarra Ramos CAKE WASHER 01/08/2013 Office visit Sean Marie MD 10/30/2012 Office visit Sean Marie MD 04/26/2012 Nurse visit Maria Antonia Barakat CAKE WASHER 02/07/2012 Office visit Sean Marie MD 02/07/2012 Hospital Michelle Greco MD 12/13/2011 Office visit Sean Marie MD 11/08/2011 Office visit Sean Marie MD 10/24/2011 Office visit Sean Marie MD 08/05/2011 Office visit Sean Marie MD 07/12/2011 Office visit Kiarra Ramos CAKE WASHER 05/11/2011 Office visit Sean Marie MD 04/19/2011 [...]
--- OUTSIDE RECORDS SUMMARY | 2018-07-18 12:43 | XMS REPORT ---
Author Author Sean Marie [facility] Address [address] [place], [place] [id number] Care Team Providers Care Ironing Pleater Name Role Phone Sean Marie PCP Unavailable [...] TABLET BY MOUTH EVERY DAY AT BEDTIME [place] Thyroid 60 mg oral tablet 04/07/2014 TAKE ONE TABLET BY MOUTH ONCE DAILY Zofran ODT oral lovastatin 40 mg oral tablet 06/12/2014 take 1 tablet by oral route daily [place] Thyroid 60 mg oral tablet 08/04/2014 TAKE [...] TAKE ONE TABLET BY MOUTH ONCE DAILY [place] Thyroid 60 mg oral tablet 07/13/2015 TAKE [...] by topical route 2 times per day Name Start [...] once daily at bedtime for 30 days [place] Thyroid 60 mg oral tablet 12/02/2013 04/01/2014 [...] per day Alen DM Cough & Chest 10-200 mg/5 mL oral [...] to exceed 30 mL in 24 hours Sauravir 10 mg oral tablet 03/27/2013 11/24/2014 take [...] by inhalation route 2 times a day [place] 5-325 mg oral tablet 08/22/2014 11/24/2014 take [...] HC BMI BSA BMI Percentile O2 Sat(%) 08/31/2015 3:10:00 PM 132 mmHg 76 mmHg [...] Decadron, Per 1 Mg [facility]# [address]-40 Reviewed 08/25/2015 12:00 AM Depo-Medrol, Per 80 Mg [facility]#[address]-37 Reviewed 08/25/2015 12:00 AM Rocephin 1 gram [facility]#8881-7679-49 Reviewed 08/05/2011 12:00 AM CHEST X-RAY 2VW [...] Decadron, Per 1 Mg [facility]# [address]-37 Reviewed 10/30/2012 12:00 AM COMPLETE CBC W/AUTO DIFF WBC Reviewed 10/30/2012 12:00 AM COMPREHEN METABOLIC PANEL Reviewed 10/30/2012 12:00 AM LIPID PANEL Reviewed 10/30/2012 12:00 AM ASSAY THYROID STIM HORMONE Reviewed 01/08/2013 12:00 AM Depo-Medrol 80 Mg Im/C'pancho Reviewed 01/08/2013 12:00 AM Decadron, Per 1 Mg [facility]# [address]-87 Reviewed 01/08/2013 12:00 AM Rocephin 1 gram [facility]#5261-9262-32 Reviewed 01/08/2013 12:00 AM COMPREHEN METABOLIC PANEL Reviewed 01/08/2013 12:00 AM GLYCOSYLATED HEMOGLOBIN TEST Reviewed 01/08/2013 12:00 AM ASSAY THYROID STIM HORMONE Reviewed 01/08/2013 12:00 AM ASSAY OF PARATHORMONE Reviewed 01/08/2013 12:00 AM LIPID PANEL Reviewed 02/27/2013 12:00 AM THER/PROPH/DIAG INJ SC/IM Reviewed 02/27/2013 12:00 AM Decadron, Per 1 Mg [facility]# [address]-12 Reviewed 02/27/2013 12:00 AM Depo-Medrol, Per 80 Mg [facility]#8506-3812-94 Reviewed 03/04/2013 12:00 AM MAMMOGRAM SCREENING Returned 03/05/2013 12:00 AM CYTOPATH TBS C/V MANUAL Returned 03/05/2013 12:00 AM MAMMOGRAM BOTH BREASTS Returned 03/27/2013 12:00 AM THER/PROPH/DIAG INJ SC/IM Reviewed 03/27/2013 12:00 AM Bicillin CR, 1.2 million units [facility]# 64262-487-17 Reviewed 05/10/2013 12:00 AM X-RAY EXAM KNEE [...] Decadron, Per 1 Mg [facility]# [address]-80 Reviewed 08/09/2013 12:00 AM Depo-Medrol, Per 80 Mg [facility]#2062-7350-72 Reviewed 08/21/2013 12:00 AM X-RAY EXAM OF [...] AM Rocephin 1 gram [facility]#5254-6264-48 Reviewed 04/01/2015 12:00 AM COMPLETE CBC W/AUTO DIFF WBC Reviewed 04/01/2015 12:00 AM COMPREHEN METABOLIC PANEL Reviewed 04/01/2015 12:00 AM ASSAY THYROID STIM HORMONE Reviewed 04/01/2015 12:00 AM CHEST X-RAY 2VW FRONTAL&LATL Reviewed 05/07/2015 12:00 AM THER/PROPH/DIAG INJ SC/IM Reviewed 05/07/2015 12:00 AM Decadron injection Reviewed 05/07/2015 12:00 AM Depo-Medrol 40mg Reviewed 05/11/2011 12:00 AM Depo-Medrol 80 Mg [facility] [id number] Reviewed 05/11/2011 12:00 AM Decadron Inj. per 1mg-[facility] [id number] Reviewed Results Summary Data and Description Results [...] 0.40 mg/ dLCALCIUM 9.80 mg/dLeGFR >60 mL/min/1.73 [id number] 250.0 mg/dLCHOLESTEROL 180.0 mg/dLHDL 39.0 mg/dLLDL (CALC) [...] Vis Given Vis Pub CVX Tdap 04/26/2012 [employer] SKB ADACEL [id number] Intramuscular Left Arm 04/26/2012 08/19/2008 115 Tdap 03/14/2014 [employer] SKB BOOSTRIX [id number] Intramuscular Left Deltoid 03/14/2014 02/07/2013 115 Influenza 06/22/2015 [place]. NOV Fluvirin [id number] Intramuscular Left Deltoid 06/23/2015 05/08/2015 140 History [...] of knee, left Aug 31 2015 3:15PM Payers Insurance Name Company Name Plan Name Plan Number Policy Number Policy Group Number Start Date [facility] [id number] September [facility] Financial Assistance [facility] Financial Alex 40 percent clinic October Bcbs [employer] [place] [id number] Tuesday, August 30, 2011 [employer] [place] [id number] November State Self Insurance Fund *INVALID State Self Insurance [id number] N /A State Self Insurance Fund *INVALID State Self Insurance [id number] N /A Bcbs [employer] [place] [id number] July History of Encounters Visit Date Visit Type Provider 08/31/2015 Office visit Sean Marie MD 08/25/2015 Office visit Sean Marie MD 06/05/2015 Office visit Sean Marie MD 05/07/2015 Office visit Amaris Gentile PREPARED FOODS SUPERVISOR 05/06/2015 Office visit Kiarra Ramos PREPARED FOODS SUPERVISOR 04/01/2015 Office visit Sean Marie MD 04/01/2015 Hospital Michelle Greco MD 03/26/2015 Office visit Sean Marie MD 03/19/2015 Office visit Sean Marie MD 02/13/2015 Office visit Sean Marie MD 01/26/2015 Office visit Leena Haddad PREPARED FOODS SUPERVISOR 01/12/2015 Office visit Sean Marie MD 11/24/2014 Office visit Kiarra Ramos PREPARED FOODS SUPERVISOR 10/22/2014 Office visit Miguel A Munoz PREPARED FOODS SUPERVISOR 08/22/2014 Office visit Sean Marie MD 08/01/2014 Office visit Sean Marie MD 06/09/2014 Office visit Kiarra Ramos PREPARED FOODS SUPERVISOR 03/14/2014 Office visit Leena Haddad PREPARED FOODS SUPERVISOR 02/27/2014 Office visit Leena Haddad PREPARED FOODS SUPERVISOR 12/02/2013 Office visit Sean Marie MD 11/25/2013 Office visit Sean Marie MD 11/14/2013 Office visit Kiarra Ramos PREPARED FOODS SUPERVISOR 08/21/2013 Office visit Leena Haddad PREPARED FOODS SUPERVISOR 08/09/2013 Office visit Kiarra Ramos PREPARED FOODS SUPERVISOR 06/26/2013 Hospital Michelle Greco MD 06/26/2013 Office visit Sean Marie MD 06/21/2013 Office visit Kiarra Ramos PREPARED FOODS SUPERVISOR 05/31/2013 Office visit Leena Haddad PREPARED FOODS SUPERVISOR 05/10/2013 Office visit Leena Haddad PREPARED FOODS SUPERVISOR 05/03/2013 Office visit Leena Haddad PREPARED FOODS SUPERVISOR 03/27/2013 Office visit Kiarra Ramos PREPARED FOODS SUPERVISOR 03/05/2013 Office visit Kiarra Ramos PREPARED FOODS SUPERVISOR 02/27/2013 Office visit Kiarra Ramos PREPARED FOODS SUPERVISOR 01/08/2013 Office visit Sean Marie MD 10/30/2012 Office visit Sean Marie MD 04/26/2012 Nurse visit Maria Antonia Barakat PREPARED FOODS SUPERVISOR 02/07/2012 Office visit Sean Marie MD 02/07/2012 [...]
--- OUTSIDE RECORDS SUMMARY | 2018-07-18 12:46 | XMS REPORT ---
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 Thyroid 60 mg oral tablet 07/31/2017 07/31/2017 [...] by oral route 2 times per day [place] Thyroid 60 mg oral tablet 12/02/2013 take 1 tablet by oral route daily for 30 days [place] Thyroid 60 mg oral tablet 04/07/2014 TAKE ONE TABLET BY MOUTH ONCE DAILY milk thistle oral 11/24/2014 chromium picolinate oral 06/09/2014 Zofran ODT oral 10/09/2015 Dexilant 60 mg oral capsule,biphase delayed releas 07/09/2014 11/24/2014 TAKE ONE CAPSULE BY MOUTH EVERY DAY [place] Thyroid 60 mg oral tablet 08/04/2014 TAKE [...] by oral route once daily at bedtime [place] 5-325 mg oral tablet 08/22/2014 11/24/2014 take [...] by topical route 2 times per day [place] Thyroid 60 mg oral tablet 07/13/2015 TAKE [...] daily in the morning for 30 days [place] Thyroid 60 mg oral tablet 07/11/2016 08/09/2017 [...] HC BMI BSA BMI Percentile O2 Sat(%) 01/29/2018 3:32:00 PM 149 mmHg 81 mmHg [...] 08/25/2015 12:00 AM Decadtamir, Per 1 Mg [facility]# [address]-66 Reviewed 08/25/2015 12:00 AM Depo-Medrol, Per 80 Mg [facility]#[address]-36 Reviewed 08/25/2015 12:00 AM Rocephin 1 gram [facility]#3618-5307-71 Reviewed 10/09/2015 12:00 AM COMPLETE CBC W/AUTO DIFF WBC Reviewed 10/09/2015 12:00 AM COMPREHEN METABOLIC PANEL Reviewed 10/09/2015 12:00 AM GLYCOSYLATED HEMOGLOBIN TEST Reviewed 10/09/2015 12:00 AM ASSAY THYROID STIM HORMONE Reviewed 11/03/2015 8:54 AM URINALYSIS AUTO W/O SCOPE Reviewed 11/03/2015 12:[address] HEAD/BRAIN W/O & W/DYE Reviewed 11/17/2015 12:00 AM Rocephin 1 gram [facility]#2495-0200-63 Reviewed 08/05/2011 12:00 AM CHEST X-RAY 2VW FRONTAL&LATL Reviewed 12/09/2015 12:00 AM THER/PROPH/DIAG INJ SC/IM Reviewed 12/09/2015 12:00 AM Rocephin 1 gram [facility]#5580-4633-94 Reviewed 11/08/2011 12:00 AM Decadron Inj. per 1mg-[facility] [id number]-[id number] Reviewed 11/08/2011 12:00 AM Depo-Medrol 80 Mg [facility] [id number] Reviewed 05/20/2016 12:00 AM COMPLETE CBC W/AUTO [...] Decadron, Per 1 Mg [facility]# [address]-74 Reviewed 10/30/2012 12:00 AM COMPLETE CBC W/AUTO [...] Decadron, Per 1 Mg [facility]# [address]-46 Reviewed 01/08/2013 12:00 AM Rocephin 1 gram [facility]#1310-9735-65 Reviewed 01/08/2013 12:00 AM COMPREHEN METABOLIC PANEL Reviewed 01/08/2013 12:00 AM GLYCOSYLATED HEMOGLOBIN TEST Reviewed 01/08/2013 12:00 AM ASSAY THYROID STIM HORMONE Reviewed 01/08/2013 12:00 AM ASSAY OF PARATHORMONE Reviewed 01/08/2013 12:00 AM LIPID PANEL Reviewed 02/27/2013 12:00 AM THER/PROPH/DIAG INJ SC/IM Reviewed 02/27/2013 12:00 AM Decadron, Per 1 Mg [facility]# [address]-56 Reviewed 02/27/2013 12:00 AM Depo-Medrol, Per 80 Mg [facility]#2386-6029-05 Reviewed 03/04/2013 12:00 AM MAMMOGRAM SCREENING Reviewed 03/05/2013 12:00 AM CYTOPATH TBS C/V MANUAL Reviewed 03/05/2013 12:00 AM MAMMOGRAM BOTH BREASTS Reviewed 03/27/2013 12:00 AM THER/PROPH/DIAG INJ SC/IM Reviewed 03/27/2013 12:00 AM Bicillin CR, 1.2 million units [facility]# 07102-864-91 Reviewed 05/10/2013 12:00 AM X-RAY EXAM KNEE [...] Decadron, Per 1 Mg [facility]# [address]-52 Reviewed 08/09/2013 12:00 AM Depo-Medrol, Per 80 Mg [facility]#3766-5748-84 Reviewed 08/21/2013 12:00 AM X-RAY EXAM OF [...] 12:00 AM Rocephin 1 gram [facility]#6284-9374-38 Reviewed 04/01/2015 12:00 AM COMPLETE CBC W/AUTO DIFF WBC Reviewed 04/01/2015 12:00 AM COMPREHEN METABOLIC PANEL Reviewed 04/01/2015 12:00 AM ASSAY THYROID STIM HORMONE Reviewed 04/01/2015 12:00 AM CHEST X-RAY 2VW FRONTAL&LATL Reviewed 05/07/2015 12:00 AM THER/PROPH/DIAG INJ SC/IM Reviewed 05/07/2015 12:00 AM Decadron injection Reviewed 05/07/2015 12:00 AM Depo-Medrol 40mg Reviewed 05/11/2011 12:00 AM Depo-Medrol 80 Mg [facility] [id number] Reviewed 05/11/2011 12:00 AM Decadron Inj. per 1mg-[facility] [id number]-Jnulwgxts Reviewed Results Summary Date and Description Results [...] Vis Given Vis Pub CVX Tdap 04/26/2012 [employer] SK[employer] ADACEL [id number] Intramuscular Left Arm 04/26/2012 08/19/2008 115 Tdap 03/14/2014 [employer] SKB BOOSTRIX [id number] Intramuscular Left Deltoid 03/14/2014 02/07/2013 115 Influenza 06/22/2015 [employer] NOV FLUVIRIN [id number] Intramuscular Left Deltoid 06/23/2015 05/08/2015 140 Pneumococcal 09/16/2015 Not Entered [place] PNEUMOVAX 23 Intramuscular Not Entered 11/11/2016 10/02/2017 33 Influenza 07/07/2017 [employer] [facility] Fluzone Quadrivalent [id number] Intramuscular Left Deltoid 07/07/2017 05/08/2015 150 History [...] 3:37PM Vaginal atrophy Jan 29 2018 3:37PM Payers Insurance Name Company Name Plan Name Plan Number Policy Number Policy Group Number Start Date [employer] [place] [id number] N/A [employer] Financial Assistance [employer] Financial Alex 100 percent Tuesday, November 21, 2017 [employer] Financial Assistance [employer] Financial Alex 100 percent Tuesday, November 21, 2017 [employer] [place] [id number] Friday, October 02, 2009 [employer] [place] [id number] November [facility] Self Insurance Fund *[place] Self Insurance [id number] N/A [facility] Self Insurance Fund *[place] Self Insurance [id number] N/A [employer] [place] [id number] July [employer] [place] [id number] September History of Encounters Visit Date Visit Type Provider 01/29/[address] Laine Siegel MD 01/19/2018 Office visit Sean Marie MD 10/27/2017 Office visit Fredissuzan Rico DO 10/23/2017 Office visit Sean Marie MD 09/20/2017 Office visit Fredissuzan Lama DO 08/31/2017 Office visit Fredis Rico DO 08/09/2017 Office visit Sean Marie MD 07/07/2017 Office visit Sean Marie MD 06/16/2017 Office visit Sean Marie MD 05/15/2017 Office visit Sean Marie MD 04/23/2017 Office visit Aurora Martin SURGERY SPECIALIST 04/14/2017 Office visit Sean Marie MD 03/20/2017 Office visit Sean Marie MD 03/03/2017 Office visit Aurora Martin SURGERY SPECIALIST 01/09/2017 Office visit Sean Marie MD 01/02/2017 [...] Marie MD 01/16/2016 Office visit Jania Stanley SURGERY SPECIALIST 01/07/2016 Hospital Michelle Greco MD 12/31/2015 Office visit Sean Marie MD 12/09/2015 Office visit Miguel A Munoz SURGERY SPECIALIST 11/17/2015 Office visit Sean Marie MD 11/03/2015 Office visit Sean Marie MD 10/09/2015 Office visit 10/09/2015 Office visit Sean Marie MD 08/31/2015 Office visit Sean Marie MD 08/25/2015 Office visit Sean Marie MD 06/05/2015 Office visit Sean Marie MD 05/07/2015 Office visit Amaris Gentile SURGERY SPECIALIST 05/06/2015 Office visit Kiarra Ramos SURGERY SPECIALIST 04/01/2015 Office visit 04/01/2015 Office visit Sean Marie MD 04/01/2015 Hospital Michelle Greco MD 03/26/2015 Office visit Sean Marie MD 03/19/2015 Office visit Sean Marie MD 02/13/2015 Office visit Sean Marie MD 01/26/2015 Office visit Leena Haddad SURGERY SPECIALIST 01/12/2015 Office visit Sean Marie MD 11/24/2014 Office visit Kiarra Ramos SURGERY SPECIALIST 10/22/2014 Office visit Miguel A Munoz SURGERY SPECIALIST 08/22/2014 Office visit Sean Marie MD 08/01/2014 Office visit Sean Marie MD 06/09/2014 Office visit Kiarra Ramos SURGERY SPECIALIST 03/14/2014 Office visit Leena Haddad SURGERY SPECIALIST 02/27/2014 Office visit Leena Haddad SURGERY SPECIALIST 12/02/2013 Office visit Sean Marie MD 11/25/2013 Office visit Sean Marie MD 11/14/2013 Office visit Kiarra Ramos SURGERY SPECIALIST 08/21/2013 Office visit Leena Haddad SURGERY SPECIALIST 08/09/2013 Office visit Kiarra Ramos SURGERY SPECIALIST 06/26/2013 Hospital Michelle Greco MD 06/26/2013 Office visit Sean Marie MD 06/21/2013 Office visit Kiarra Ramos SURGERY SPECIALIST 05/31/2013 Office visit Leena Haddad SURGERY SPECIALIST 05/10/2013 Office visit Leena Haddad SURGERY SPECIALIST 05/03/2013 Office visit Leena Haddad SURGERY SPECIALIST 03/27/2013 Office visit Kiarra Ramos SURGERY SPECIALIST 03/05/2013 Office visit Kiarra Ramos SURGERY SPECIALIST 02/27/2013 Office visit Kiarra Ramos SURGERY SPECIALIST 01/08/2013 Office visit Sean Marie MD 10/30/2012 Office visit Sean Marie MD 04/26/2012 Nurse visit Maria Antonia Barakat SURGERY SPECIALIST 02/07/2012 Office visit Sean Marie MD [...]
--- OUTSIDE RECORDS SUMMARY | 2018-07-18 12:49 | XMS REPORT ---
Author Author Sean Marie [facility] Address [address] [place], [place] [id number] Care Team Providers Care Slider Assembler Name Role Phone Sean Marie PCP Unavailable [...] TABLET BY MOUTH EVERY DAY AT BEDTIME [place] Thyroid 60 mg oral tablet 04/07/2014 TAKE ONE TABLET BY MOUTH ONCE DAILY lovastatin 40 mg oral tablet 06/12/2014 take 1 tablet by oral route daily [place] Thyroid 60 mg oral tablet 08/04/2014 TAKE [...] TABLET BY MOUTH ONCE DAILY AT BEDTIME [place] Thyroid 60 mg oral tablet 07/13/2015 TAKE [...] TABLET BY MOUTH ONCE DAILY AT BEDTIME [place] Thyroid 60 mg oral tablet 07/11/2016 TAKE [...] ONCE DAILY oxycodone 15 mg oral tablet 03/06/2017 take 1 tablet (15 mg) by oral route every 4 hours furosemide 40 mg oral tablet 03/20/2017 take 1-2 tablets by oral route daily as needed Cymbalta 30 mg oral capsule,delayed release(DR/EC) 03/20/2017 07/18/2017 take 1 capsule (30 mg) by oral route once daily for 30 days Name Start Date Expiration [...] once daily at bedtime for 30 days [place] Thyroid 60 mg oral tablet 12/02/2013 04/01/2014 [...] by oral route once daily at bedtime [place] 5-325 mg oral tablet 08/22/2014 11/24/2014 take [...] HC BMI BSA BMI Percentile O2 Sat(%) 03/20/2017 2:26:00 PM 122 mmHg 86 mmHg [...] F 268 lbs 65 in 44.60 kg/m2 2.3611 m 10/30/2012 1:48:00 PM 148 mmHg 80 mmHg 88 bpm 20 rpm 97.6 F 274 lbs 65 in 45.5955 kg/m 2.39 m2 02/07/2012 10:33:00 AM 126 mmHg 84 mmHg 80 bpm 20 rpm 98.6 F 284 lbs 65 in 47.26 kg/m2 2.4306 m 12/13/2011 1:59:00 PM 128 mmHg 72 mmHg 82 bpm 18 rpm 97.8 F 278 lbs 65 in 46.2611 kg/m 2.40 m2 11/08/2011 8:50:00 AM 146 mmHg 80 mmHg 84 bpm 18 rpm 97.5 F 285 lbs 65 in 47.43 kg/m2 2.4349 m 10/24/2011 9:12:00 AM 160 mmHg 92 mmHg 80 bpm 20 rpm 99 F 280 lbs 65 in 46.594 kg/m 2.41 m2 08/05/2011 9:17:00 AM 156 mmHg 88 mmHg 80 bpm 20 rpm 98.6 F 280 lbs 65 in 46.59 kg/m2 2.4134 m 07/12/2011 8:58:00 AM 142 mmHg 70 mmHg 68 bpm 20 rpm 97 F 280 lbs 65 in 46.594 kg/m 2.41 m2 05/11/2011 8:58:00 AM 146 mmHg 88 mmHg 78 bpm 20 rpm 97.9 F 285 lbs 04/19/2011 10:25:00 AM 140 mmHg 88 mmHg 80 bpm 20 rpm 96.3 F 282 lbs 65 in 46.9268 kg/m 2.42 m2 03/17/2011 8:43:00 AM 152 mmHg [...] 08/25/2015 12:00 AM Decadron, Per [address] [facility]# [address]-05 Reviewed 08/25/2015 12:00 AM Depo-Medrol, Per [address] [facility]#[address]-35 Reviewed 08/25/2015 12:00 AM Rocephin [address] [facility]#1257-7684-56 Reviewed 10/09/2015 12:00 AM COMPLETE CBC W/AUTO DIFF WBC Reviewed 10/09/2015 12:00 AM COMPREHEN METABOLIC PANEL Reviewed 10/09/2015 12:00 AM GLYCOSYLATED HEMOGLOBIN TEST Reviewed 10/09/2015 12:00 AM ASSAY THYROID STIM HORMONE Reviewed 11/03/2015 8:54 AM URINALYSIS AUTO W/O SCOPE Reviewed 11/03/2015 12:[address] HEAD/BRAIN W/O & W/DYE Reviewed 11/17/2015 12:00 AM Rocephin [address] [facility]#9232-0328-13 Reviewed 08/05/2011 12:00 AM CHEST X-RAY 2VW FRONTAL&LATL Reviewed 12/09/2015 12:00 AM THER/PROPH/DIAG INJ SC/IM Reviewed 12/09/2015 12:00 AM Rocephin [address] [facility]#6481-0984-99 Reviewed 11/08/2011 12:00 AM Decadron Inj. per 1mg-[facility] [id number]-Kmerqniud Reviewed 11/08/2011 12:00 AM Depo-Medrol [address] [facility] [id number]-Pifrlihal Reviewed 05/20/2016 12:00 AM COMPLETE CBC W/AUTO [...] 10/30/2012 12:00 AM Decadron, Per [address] [facility]# [address]-68 Reviewed 10/30/2012 12:00 AM COMPLETE CBC W/AUTO DIFF WBC Reviewed 10/30/2012 12:00 AM COMPREHEN METABOLIC PANEL Reviewed 10/30/2012 12:00 AM LIPID PANEL Reviewed 10/30/2012 12:00 AM ASSAY THYROID STIM HORMONE Reviewed 01/08/2013 12:00 AM Depo-Medrol 80 Mg Im/C'pancho Reviewed 01/08/2013 12:00 AM Decadron, Per [address] [facility]# [address]-20 Reviewed 01/08/2013 12:00 AM Rocephin [address] [facility]#9193-1335-96 Reviewed 01/08/2013 12:00 AM COMPREHEN METABOLIC PANEL Reviewed 01/08/2013 12:00 AM GLYCOSYLATED HEMOGLOBIN TEST Reviewed 01/08/2013 12:00 AM ASSAY THYROID STIM HORMONE Reviewed 01/08/2013 12:00 AM ASSAY OF PARATHORMONE Reviewed 01/08/2013 12:00 AM LIPID PANEL Reviewed 02/27/2013 12:00 AM THER/PROPH/DIAG INJ SC/IM Reviewed 02/27/2013 12:00 AM Decadron, Per [address] [facility]# [address]-90 Reviewed 02/27/2013 12:00 AM Depo-Medrol, Per [address] [facility]#4253-0821-55 Reviewed 03/04/2013 12:00 AM MAMMOGRAM SCREENING Reviewed 03/05/2013 12:00 AM CYTOPATH TBS C/V MANUAL Reviewed 03/05/2013 12:00 AM MAMMOGRAM BOTH BREASTS Reviewed 03/27/2013 12:00 AM THER/PROPH/DIAG INJ SC/IM Reviewed 03/27/2013 12:00 AM Bicillin CR, 1.2 million units [facility]# 07626-519-34 Reviewed 05/10/2013 12:00 AM X-RAY EXAM KNEE [...] 08/09/2013 12:00 AM Decadron, Per [address] [facility]# [address]-87 Reviewed 08/09/2013 12:00 AM Depo-Medrol, Per [address] [facility]#4803-8000-23 Reviewed 08/21/2013 12:00 AM X-RAY EXAM OF [...] Reviewed 03/26/2015 12:00 AM Rocephin [address] [facility]#4168-3511-82 Reviewed 04/01/2015 12:00 AM COMPLETE CBC W/AUTO DIFF WBC Reviewed 04/01/2015 12:00 AM COMPREHEN METABOLIC PANEL Reviewed 04/01/2015 12:00 AM ASSAY THYROID STIM HORMONE Reviewed 04/01/2015 12:00 AM CHEST X-RAY 2VW FRONTAL&LATL Reviewed 05/07/2015 12:00 AM THER/PROPH/DIAG INJ SC/IM Reviewed 05/07/2015 12:00 AM Decadron injection Reviewed 05/07/2015 12:00 AM Depo-Medrol 40mg Reviewed 05/11/2011 12:00 AM Depo-Medrol [address] [facility] [id number] Reviewed 05/11/2011 12:00 AM Decadron Inj. per 1mg-[facility] [id number]-Whfxygzcu Reviewed Results Summary Date and Description Results [...] HGB 13.20 g/dLHCT 41.10 % MCV 83.0 [facility] 26.80 pgHC 32.10 g/dLRDW SD 40 RDW CV 13.30 [...] Vis Given Vis Pub CVX Tdap 04/26/2012 [employer] SKB ADACEL [id number] Intramuscular Left Arm 04/26/2012 08/19/2008 115 Tdap 03/14/2014 [employer] SK[employer] BOOSTRIX [id number] Intramuscular Left Deltoid 03/14/2014 02/07/2013 115 Influenza 06/22/2015 Results [employer] NOV Fluvirin [id number] Intramuscular Left Deltoid 06/23/2015 05/08/2015 140 Pneumococcal [...] 2:30PM Thyroid nodule Mar 24 2017 9:34AM Payers Insurance Name Company Name Plan Name Plan Number Policy Number Policy Group Number Start Date [employer] [place] [id number] September [facility] Financial Assistance [facility] Financial Alex 40 percent clinic October [employer] [place] [id number] Friday, October 02, 2009 [employer] [place] [id number] November [employer] Self [employer] Fund *[place] Self Insurance [id number] N/A zCount includes the [facility] Self Insurance Fund *[place] Self Insurance [id number] N/A [employer] [place] [id number] July History of Encounters Visit Date Visit Type Provider 03/20/2017 Office visit Sean Marie MD 03/03/2017 Office visit Aurora Martin NUCLEAR EQUIPMENT DESIGN ENGINEER 01/09/2017 Office visit Sean Marie MD [...] Marie MD 01/16/2016 Office visit Jania Stanley NUCLEAR EQUIPMENT DESIGN ENGINEER 01/07/2016 Hospital Michelle Greco MD 12/31/2015 Office visit Sean Marie MD 12/09/2015 Office visit Miguel A Munoz NUCLEAR EQUIPMENT DESIGN ENGINEER 11/17/2015 Office visit Sean Marie MD 11/03/2015 Office visit Sean Marie MD 10/09/2015 Office visit 10/09/2015 Office visit Sean Marie MD 08/31/2015 Office visit Sean Marie MD 08/25/2015 Office visit Sean Marie MD 06/05/2015 Office visit Sean Marie MD 05/07/2015 Office visit Amaris Gentile NUCLEAR EQUIPMENT DESIGN ENGINEER 05/06/2015 Office visit Kiarra Ramos NUCLEAR EQUIPMENT DESIGN ENGINEER 04/01/2015 Office visit 04/01/2015 Office visit Sean Marie MD 04/01/2015 [facility] Michelle Greco MD 03/26/2015 Office visit Sean Marie MD 03/19/2015 Office visit Sean Marie MD 02/13/2015 Office visit Sean Marie MD 01/26/2015 Office visit Leena Haddad NUCLEAR EQUIPMENT DESIGN ENGINEER 01/12/2015 Office visit Sean Marie MD 11/24/2014 Office visit Kiarra Ramos NUCLEAR EQUIPMENT DESIGN ENGINEER 10/22/2014 Office visit Miguel A Munoz NUCLEAR EQUIPMENT DESIGN ENGINEER 08/22/2014 Office visit Sean Marie MD 08/01/2014 Office visit Sean Marie MD 06/09/2014 Office visit Kiarra Ramos NUCLEAR EQUIPMENT DESIGN ENGINEER 03/14/2014 Office visit Leena Haddad NUCLEAR EQUIPMENT DESIGN ENGINEER 02/27/2014 Office visit Leena Haddad NUCLEAR EQUIPMENT DESIGN ENGINEER 12/02/2013 Office visit Sean Marie MD 11/25/2013 Office visit Sean Marie MD 11/14/2013 Office visit Kiarra Richard NUCLEAR EQUIPMENT DESIGN ENGINEER 08/21/2013 Office visit Leena NEd Boo NUCLEAR EQUIPMENT DESIGN ENGINEER 08/09/2013 Office visit Kiarra Ramos NUCLEAR EQUIPMENT DESIGN ENGINEER 06/26/2013 [facility] Michelle Greco MD 06/26/2013 Office visit Sean Marie MD 06/21/2013 Office visit Kiarra Ramos NUCLEAR EQUIPMENT DESIGN ENGINEER 05/31/2013 Office visit Leena Haddad NUCLEAR EQUIPMENT DESIGN ENGINEER 05/10/2013 Office visit Leena RodriguezEd Boo NUCLEAR EQUIPMENT DESIGN ENGINEER 05/03/2013 Office visit Leenaallison Haddad NUCLEAR EQUIPMENT DESIGN ENGINEER 03/27/2013 Office visit Kiarra Ramos NUCLEAR EQUIPMENT DESIGN ENGINEER 03/05/2013 Office visit Kiarra Ramos NUCLEAR EQUIPMENT DESIGN ENGINEER 02/27/2013 Office visit Kiarra Ramos NUCLEAR EQUIPMENT DESIGN ENGINEER 01/08/2013 Office visit Sean Marie MD 10/30/2012 Office visit Sean Marie MD 04/26/2012 Nurse visit Maria Antonia Barakat NUCLEAR EQUIPMENT DESIGN ENGINEER 02/07/2012 Office visit Sean Marie MD 02/07/2012 [facility] Michelle Greco MD 12/13/2011 Office visit Sean Marie MD 11/08/2011 Office visit Sean Marie MD 10/24/2011 Office visit Sean Marie MD 08/05/2011 Office visit Sean Marie MD 07/12/2011 Office visit Kiarra Ramos NUCLEAR EQUIPMENT DESIGN ENGINEER 05/11/2011 Office visit Sean Marie MD [...]
--- OUTSIDE RECORDS SUMMARY | 2018-07-18 12:52 | XMS REPORT ---
Author Author Fredis Rico Organization [facility] Address [address] [place] [id number] Care Team Providers Care Inorganic Chemistry Professor Name Role Phone Fredis Rico PCP Sean [...] once daily at bedtime for 30 days PERFUMER Thyroid 60 mg oral tablet 07/31/2017 07/31/2017 [...] topical route 2 times per day Alen BATRSE Cough and Chest 10-200 mg/5 mL oral [...] by oral route 2 times per day [place] Thyroid 60 mg oral tablet 12/02/2013 take 1 tablet by oral route daily for 30 days [place] Thyroid 60 mg oral tablet 04/07/2014 TAKE ONE TABLET BY MOUTH ONCE DAILY milk thistle oral 11/24/2014 chromium picolinate oral 06/09/2014 Zofran ODT oral 10/09/2015 Dexilant 60 mg oral capsule,biphase delayed releas 07/09/2014 11/24/2014 TAKE ONE CAPSULE BY MOUTH EVERY DAY [place] Thyroid 60 mg oral tablet 08/04/2014 TAKE [...] by oral route once daily at bedtime [place] 5-325 mg oral tablet 08/22/2014 11/24/2014 take [...] by topical route 2 times per day [place] Thyroid 60 mg oral tablet 07/13/2015 TAKE [...] daily in the morning for 30 days [place] Thyroid 60 mg oral tablet 07/11/2016 08/09/2017 [...] 08/25/2015 12:00 AM Decadron, Per 1 Mg [facility]# [address]-68 Reviewed 08/25/2015 12:00 AM Depo-Medrol, Per 80 Mg [facility]#[address]-13 Reviewed 08/25/2015 12:00 AM Rocephin 1 gram [facility]#7416-2457-82 Reviewed 10/09/2015 12:00 AM COMPLETE CBC W/AUTO DIFF WBC Reviewed 10/09/2015 12:00 AM COMPREHEN METABOLIC PANEL Reviewed 10/09/2015 12:00 AM GLYCOSYLATED HEMOGLOBIN TEST Reviewed 10/09/2015 12:00 AM ASSAY THYROID STIM HORMONE Reviewed 11/03/2015 8:54 AM URINALYSIS AUTO W/O SCOPE Reviewed 11/03/2015 12:[address] HEAD/BRAIN W/O & W/DYE Reviewed 11/17/2015 12:00 AM Rocephin 1 gram [facility]#3834-9860-03 Reviewed 08/05/2011 12:00 AM CHEST X-RAY 2VW FRONTAL&LATL Reviewed 12/09/2015 12:00 AM THER/PROPH/DIAG INJ SC/IM Reviewed 12/09/2015 12:00 AM Rocephin 1 gram [facility]#7641-7398-84 Reviewed 11/08/2011 12:00 AM Decadron Inj. per 1mg-[facility] [id number] Reviewed 11/08/2011 12:00 AM Depo-Medrol 80 Mg [facility] [id number] Reviewed 05/20/2016 12:00 AM COMPLETE CBC W/AUTO [...] 10/30/2012 12:00 AM Decadron, Per 1 Mg [facility]# [address]-81 Reviewed 10/30/2012 12:00 AM COMPLETE CBC W/AUTO DIFF WBC Reviewed 10/30/2012 12:00 AM COMPREHEN METABOLIC PANEL Reviewed 10/30/2012 12:00 AM LIPID PANEL Reviewed 10/30/2012 12:00 AM ASSAY THYROID STIM HORMONE Reviewed 01/08/2013 12:00 AM Depo-Medrol 80 Mg Im/C'pancho Reviewed 01/08/2013 12:00 AM Decadron, Per 1 Mg [facility]# [address]-44 Reviewed 01/08/2013 12:00 AM Rocephin 1 gram [facility]#8463-1693-96 Reviewed 01/08/2013 12:00 AM COMPREHEN METABOLIC PANEL Reviewed 01/08/2013 12:00 AM GLYCOSYLATED HEMOGLOBIN TEST Reviewed 01/08/2013 12:00 AM ASSAY THYROID STIM HORMONE Reviewed 01/08/2013 12:00 AM ASSAY OF PARATHORMONE Reviewed 01/08/2013 12:00 AM LIPID PANEL Reviewed 02/27/2013 12:00 AM THER/PROPH/DIAG INJ SC/IM Reviewed 02/27/2013 12:00 AM Decadron, Per 1 Mg [facility]# [address]-64 Reviewed 02/27/2013 12:00 AM Depo-Medrol, Per 80 Mg [facility]#8822-2351-16 Reviewed 03/04/2013 12:00 AM MAMMOGRAM SCREENING Reviewed 03/05/2013 12:00 AM CYTOPATH TBS C/V MANUAL Reviewed 03/05/2013 12:00 AM MAMMOGRAM BOTH BREASTS Reviewed 03/27/2013 12:00 AM THER/PROPH/DIAG INJ SC/IM Reviewed 03/27/2013 12:00 AM Bicillin CR, 1.2 million units [facility]# 76522-312-31 Reviewed 05/10/2013 12:00 AM X-RAY EXAM KNEE [...] 08/09/2013 12:00 AM Decadron, Per 1 Mg [facility]# [address]-47 Reviewed 08/09/2013 12:00 AM Depo-Medrol, Per 80 Mg [facility]#7215-7340-99 Reviewed 08/21/2013 12:00 AM X-RAY EXAM OF [...] Reviewed 03/26/2015 12:00 AM Rocephin 1 gram [facility]#2400-3453-20 Reviewed 04/01/2015 12:00 AM COMPLETE CBC W/AUTO DIFF WBC Reviewed 04/01/2015 12:00 AM COMPREHEN METABOLIC PANEL Reviewed 04/01/2015 12:00 AM ASSAY THYROID STIM HORMONE Reviewed 04/01/2015 12:00 AM CHEST X-RAY 2VW FRONTAL&LATL Reviewed 05/07/2015 12:00 AM THER/PROPH/DIAG INJ SC/IM Reviewed 05/07/2015 12:00 AM Decadron injection Reviewed 05/07/2015 12:00 AM Depo-Medrol 40mg Reviewed 05/11/2011 12:00 AM Depo-Medrol 80 Mg [facility] [id number]-Ffjzejoos Reviewed 05/11/2011 12:00 AM Decadron Inj. per 1mg-[facility] [id number]-Wbbtdawed Reviewed Results Summary Date and Description Results [...] Vis Given Vis Pub CVX Tdap 04/26/2012 Savv[employer] SKB ADACEL [id number] Intramuscular Left Arm 04/26/2012 08/19/2008 115 Tdap 03/14/2014 GlaxBuddyine SKB BOOSTRIX [id number] Intramuscular Left Deltoid 03/14/2014 02/07/2013 115 Influenza 06/22/2015 [employer] Pamela. NOV Fluvirin [id number] Intramuscular Left Deltoid 06/23/2015 05/08/2015 140 Pneumococcal 09/16/2015 Not Entered NE Pneumovax 23 Intramuscular Not Entered 11/11/2016 10/02/2018 33 Influenza 07/07/2017 [facility] Fluzone Quadrivalent [id number] Intramuscular Left Deltoid 07/07/2017 05/08/2015 150 History [...] Chronic pain syndrome Oct 27 2017 9:09AM Payers Insurance Name Company Name Plan Name Plan Number Policy Number Policy Group Number Start Date [employer] [place] [id number] N/A [employer] [facility] Financial Alex 40 percent clinic October [employer] [place] [id number] Friday, October 02, 2009 [employer] [place] [id number] November [employer] Self Insurance Fund *INVALID State Self Insurance [id number] N/A [employer] Self Insurance Fund *INVALID State Self Insurance [id number] N/A [employer] [place] [id number] July [employer] [place] [id number] September History of Encounters Visit Date Visit [...] 05/20/2016 Office visit Sean Marie MD 05/16/2016 [facility] Marcela Greco MD 04/01/2016 Office visit Sean Marie MD 02/25/2016 Office visit Sean Marie MD 01/16/2016 Office visit Jania Stanley CURATOR [employer]URAL HISTORY MUSEUM 01/07/2016 [facility] Michelle Greco MD 12/31/2015 Office visit Sean Marie MD 12/09/2015 Office visit Miguel A Munoz [employer]ATOR [employer]ORY [employer] 11/17/2015 Office visit Sean Marie MD 11/03/2015 Office visit Sean Marie MD 10/09/2015 Office visit 10/09/2015 Office visit Sean Marie MD 08/31/2015 Office visit Sean Marie MD 08/25/2015 Office visit Sean Marie MD 06/05/2015 Office visit Sean Marie MD 05/07/2015 Office visit Amaris Gentile [employer]ATOR [employer]ORY [employer] 05/06/2015 Office visit Kiarra Ramos CURATOR [employer]ORY [employer]USEUM 04/01/2015 Office visit 04/01/2015 Office visit Sean Marie MD 04/01/2015 [facility] Michelle Greco MD 03/26/2015 Office visit Sean Marie MD 03/19/2015 Office visit Sean Marie MD 02/13/2015 Office visit Sean Marie MD 01/26/2015 Office visit Leena Haddad [employer]ATOR [employer]ORY [employer]USE[employer] 01/12/2015 Office visit Sean Marie MD 11/24/2014 Office visit Kiarra Ramos [employer]ATOR [employer]ORY [employer] 10/22/2014 Office visit Miguel A Munoz [employer]ATOR [employer]ORY [employer]USEUM 08/22/2014 Office visit Sean Marie MD 08/01/2014 Office visit Sean Marie MD 06/09/2014 Office visit Kiarra Ramos [employer]ATOR [employer]ORY [employer] 03/14/2014 Office visit Leena Haddad CURATOR [employer] HISTORY MUSEUM 02/27/2014 Office visit Leena Haddad CURATOR [employer] H[employer]ORY MUSEUM 12/02/2013 Office visit Sean Marie MD 11/25/2013 Office visit Sean Marie MD 11/14/2013 Office visit Kiarra Ramos [employer]ATOR [employer]ORY [employer]USE[employer] 08/21/2013 Office visit Leena Haddad CURATOR [employer] HISTORY MUSEUM 08/09/2013 Office visit Kiarra Ramos CURATOR [employer] H[employer]ORY MUSEUM 06/26/2013 Hospital Michelle Greco MD 06/26/2013 Office visit Sean Marie MD 06/21/2013 Office visit Kiarra Ramos [employer]ATOR [employer]ORY [employer]USEUM 05/31/2013 Office visit Leena Haddad CURATOR [employer] HISTORY MUSEUM 05/10/2013 Office visit Leena Haddad CURATOR [employer] H[employer]ORY MUSEUM 05/03/2013 Office visit Leena Haddad CURATOR [employer] H[employer]ORY MUSEUM 03/27/2013 Office visit Kiarra Richard [employer]ATOR [employer] HISTORY MUSEUM 03/05/2013 Office visit Kiarra Richard [employer]ATOR [employer] HISTORY MUSEUM 02/27/2013 Office visit Kiarra Richard [employer]ATOR [employer]ORY [employer]USEUM 01/08/2013 Office visit Sean Marie MD 10/30/2012 Office visit Sean Marie MD 04/26/2012 Nurse visit Maria Antonia Barakat [employer]ATOR [employer]ORY [employer]USEUM 02/07/2012 Office visit Sean Marie MD 02/07/2012 [facility] Marcela Greco MD 12/13/2011 Office visit Sean Marie MD 11/08/2011 Office visit Sean Marie MD 10/24/2011 Office visit Sean Marie MD 08/05/2011 Office visit Sean Marie MD 07/12/2011 Office visit Kiarra Ramos [employer] 05/11/2011 Office visit Sean Marie MD 04/19/2011 Office visit Sean Marie MD 03/17/2011 Office visit Sean Marie MD 03/03/2011 Office visit Sean Marie MD 07/12/2010 Office visit Maggie CH 05/11/2010 Office visit Saen Marie MD 03/15/2010 Office visit Sean Marie MD 03/03/2010 Office visit Sean Marie MD 02/08/2010 Office visit Sean Marie MD 08/21/2009 Laboratory Sean Marie MD 08/21/2009 Voided Sean Marie MD 07/27/2009 Office visit Sean Marie MD 07/06/2009 Nurse visit Sean Marie MD
--- OUTSIDE RECORDS SUMMARY | 2018-07-18 12:53 | XMS REPORT ---
Author Author Sean Marie [facility] Address [address] [place], [place] [address] Care Team Providers Care Hedge Fund Accountant Name Role Phone Sean Marie PCP Unavailable [...] TABLET BY MOUTH EVERY DAY AT BEDTIME [place] Thyroid oral tablet 60 mg 04/07/2014 TAKE ONE TABLET BY MOUTH ONCE DAILY Zofran ODT oral lovastatin oral tablet 40 mg 06/12/2014 take 1 tablet by oral route daily [place] Thyroid oral tablet 60 mg 08/04/2014 TAKE [...] ONE TABLET BY MOUTH AT BEDTIME Zithromax Z-Ejronimo Oral Tablet 250 mg 07/12/2011 07/17/2011 take [...] once daily at bedtime for 30 days [place] Thyroid oral tablet 60 mg 12/02/2013 04/01/2014 [...] by inhalation route 2 times a day [place] oral tablet 5-325 mg 08/22/2014 11/24/2014 take [...] HC BMI BSA BMI Percentile O2 Sat(%) 03/19/2015 1:09:00 PM 118 mmHg 72 mmHg [...] 0.40 mg/ dLCALCIUM 9.80 mg/dLeGFR >60 mL/min/1.73 [id number] 250.0 mg/dLCHOLESTEROL 180.0 mg/dLHDL 39.0 mg/dLLDL (CALC) [...] Vis Given Vis Pub CVX Tdap 04/26/2012 [employer] SKB ADACEL [id number] Intramuscular Left Arm 04/26/2012 08/19/2008 115 Tdap 03/14/2014 [email or web address] SKB BOOSTRIX [id number] Intramuscular Left Deltoid 03/14/2014 [...] 1:13PM Chronic pain Mar 19 2015 1:13PM Payers Insurance Name Company Name Plan Name Plan Number Policy Number Policy Group Number Start Date [employer] [place] [id number] September [facility] Financial Assistance [facility] Financial Alex 40 percent clinic October [employer] [place] [id number] Tuesday, August 30, 2011 [employer] [place] [id number] November State Self Insurance Fund *INVALID State Self Insurance [id number] N /A State Self Insurance Fund *INVALID State Self Insurance [id number] N /A [employer] [place] [id number] July History of Encounters Visit Date Visit Type Provider 03/19/2015 Office visit Sean Marie MD 02/13/2015 Office visit Sean Marie MD 01/26/2015 Office visit Leena Haddad HIGH SCHOOL MATH TUTOR 01/12/2015 Office visit Sean Marie MD 11/24/2014 Office visit Kiarra Ramos HIGH SCHOOL MATH TUTOR 10/22/2014 Office visit Miguel A Munoz HIGH SCHOOL MATH TUTOR 08/22/2014 Office visit Sean Marie MD 08/01/2014 Office visit Sean Marie MD 06/09/2014 Office visit Kiarra Ramos HIGH SCHOOL MATH TUTOR 03/14/2014 Office visit Leena Haddad HIGH SCHOOL MATH TUTOR 02/27/2014 Office visit Leena Haddad HIGH SCHOOL MATH TUTOR 12/02/2013 Office visit Sean Marie MD 11/25/2013 Office visit Sean Marie MD 11/14/2013 Office visit Kiarra Ramos HIGH SCHOOL MATH TUTOR 08/21/2013 Office visit Leena Mona Haddad HIGH SCHOOL MATH TUTOR 08/09/2013 Office visit Kiarra Ramos HIGH SCHOOL MATH TUTOR 06/26/2013 Office visit Sean Marie MD 06/26/2013 [facility] Michelle Greco MD 06/21/2013 Office visit Kiarra Ramos HIGH SCHOOL MATH TUTOR 05/31/2013 Office visit Leena Haddad HIGH SCHOOL MATH TUTOR 05/10/2013 Office visit Leena Haddad HIGH SCHOOL MATH TUTOR 05/03/2013 Office visit Leena N. Boo HIGH SCHOOL MATH TUTOR 03/27/2013 Office visit Kiarra Ramos HIGH SCHOOL MATH TUTOR 03/05/2013 Office visit Kiarra Ramos HIGH SCHOOL MATH TUTOR 02/27/2013 Office visit Kiarra Ramos HIGH SCHOOL MATH TUTOR 01/08/2013 Office visit Sean Marie MD 10/30/2012 Office visit Sean Marie MD 04/26/2012 Nurse visit Maria Antonia Barakat HIGH SCHOOL MATH TUTOR 02/07/2012 Office visit Sean Marie MD 02/07/2012 [facility] Michelle Greco MD 12/13/2011 Office visit Sean Maire MD 11/08/2011 Office visit Sean Marie MD 10/24/2011 Office visit Sean Marie MD 08/05/2011 Office visit Sean Marie MD 07/12/2011 Office visit Kiarra Ramos HIGH SCHOOL MATH TUTOR 05/11/2011 Office visit Sean Marie MD 04/19/2011 [...]
[2018-07-18] MEDS ORDERED: NS IV 500 ML 500 ML IV PRN (12:54)
--- OUTSIDE RECORDS SUMMARY | 2018-07-18 12:55 | XMS REPORT ---
Author Author Sean Marie [facility] Address [address] [place], [place] [id number] Care Team Providers Care Lead Embedded Software Engineer Name Role Phone Sean Marie PCP [...] TABLET BY MOUTH EVERY DAY AT BEDTIME [place] Thyroid 60 mg oral tablet 04/07/2014 TAKE ONE TABLET BY MOUTH ONCE DAILY lovastatin 40 mg oral tablet 06/12/2014 take 1 tablet by oral route daily [place] Thyroid 60 mg oral tablet 08/04/2014 TAKE [...] TABLET BY MOUTH ONCE DAILY AT BEDTIME [place] Thyroid 60 mg oral tablet 07/13/2015 TAKE ONE TABLET BY MOUTH ONCE DAILY ropinirole 2 mg oral tablet 07/13/2015 TAKE ONE TABLET BY MOUTH ONCE DAILY AT BEDTIME Xopenex 1.25 mg/3 mL inhalation solution for nebulization 08/21/2015 inhale 3 milliliters (1.25 mg) by nebulization route 3 times per day Toviaz 8 mg oral tablet extended release 24 hr 08/25/2015 11/17/2016 take 1 tablet (8 mg) by oral route once daily for 90 days furosemide 40 mg oral tablet 09/21/2015 TAKE [...] TABLET BY MOUTH ONCE DAILY AT BEDTIME [place] Thyroid 60 mg oral tablet 07/11/2016 TAKE ONE TABLET BY MOUTH ONCE DAILY lovastatin 40 mg oral tablet 08/08/2016 TAKE ONE TABLET BY MOUTH ONCE DAILY AT BEDTIME Toviaz 8 mg oral tablet extended release 24 hr 09/05/2016 TAKE ONE TABLET BY MOUTH ONCE DAILY Brovana 15 mcg/2 mL inhalation solution for nebulization 09/19/20162016 inhale 2 milliliters (15 mcg) by inhalation route 2 times per day for 30 days Nuvigil 250 mg oral tablet 09/19/2016 01/17/2017 take 1 tablet (250 mg) by oral route once daily in the morning for 30 days oxycodone 15 mg oral tablet 09/19/2016 take 1 tablet (15 mg) by oral route every 6 hours Spiriva Respimat 2.5 mcg/actuation inhalation mist 09/19/2016 inhale 2 puffs (5 mcg) by inhalation route once daily at the same time each day Xanax 0.25 mg oral tablet 09/19/2016 take 1 tablet by oral route 2 times a day as needed Xopenex HFA 45 mcg/actuation inhalation HFA aerosol inhaler 09/19/2016 inhale 2 puffs (90 mcg) by inhalation route every 6 hours Abilify 10 mg oral tablet 09/23/2016 take 1 tablet (10 mg) by oral route once daily Ambien 10 mg oral tablet 2016 01/05/2017 take 1 tablet (10 mg) by oral route once daily at bedtime for 30 days Cymbalta 60 mg oral [...] once daily at bedtime for 30 days [place] Thyroid 60 mg oral tablet 12/02/2013 04/01/2014 [...] per day as needed for 30 days Flagyl 500 mg oral [...] by oral route once daily at bedtime [place] 5-325 mg oral tablet 08/22/2014 11/24/2014 take [...] daily in the morning for 30 days Problem List Description Status Onset Hypothyroidism, Acquired Active Allergic rhinitis; due to other allergen Active Chronic Obstructive Pulmonary Disease Active 10/24/2011 Osteoarthritis Active 11/14/2013 Hyperlipidemia, unspecified Active 06/11/2014 Vital Signs Date Time BP-Sys(mm[Hg] BP-Jocelyn(mm[Hg]) HR(bpm) RR(rpm) Temp WT HT HC BMI BSA BMI Percentile O2 Sat(%) 2016 8:49:00 AM 140 mmHg 84 mmHg [...] Decadron, Per 1 Mg [facility]# [address]-10 Reviewed 08/25/2015 12:00 AM Depo-Medrol, Per 80 Mg [facility]#[address]-92 Reviewed 08/25/2015 12:00 AM Rocephin 1 gram [facility]#9995-7652-02 Reviewed 10/09/2015 12:00 AM COMPLETE CBC W/AUTO DIFF WBC Reviewed 10/09/2015 12:00 AM COMPREHEN METABOLIC PANEL Reviewed 10/09/2015 12:00 AM GLYCOSYLATED HEMOGLOBIN TEST Reviewed 10/09/2015 12:00 AM ASSAY THYROID STIM HORMONE Reviewed 11/03/2015 8:54 AM URINALYSIS AUTO W/O SCOPE Reviewed 11/03/2015 12:[address] HEAD/BRAIN W/O & W/DYE Reviewed 11/17/2015 12:00 AM Rocephin 1 gram [facility]#2066-2014-14 Reviewed 08/05/2011 12:00 AM CHEST X-RAY 2VW FRONTAL&LATL Reviewed 12/09/2015 12:00 AM THER/PROPH/DIAG INJ SC/IM Reviewed 12/09/2015 12:00 AM Rocephin 1 gram [facility]#4975-3682-96 Reviewed 11/08/2011 12:00 AM Decadron Inj. per 1mg-[facility] [id number] Reviewed 11/08/2011 12:00 AM Depo-Medrol 80 Mg [facility] [id number] Reviewed 05/20/2016 12:00 AM COMPLETE CBC W/AUTO [...] Decadron, Per 1 Mg [facility]# [address]-41 Reviewed 10/30/2012 12:00 AM COMPLETE CBC W/AUTO DIFF WBC Reviewed 10/30/2012 12:00 AM COMPREHEN METABOLIC PANEL Reviewed 10/30/2012 12:00 AM LIPID PANEL Reviewed 10/30/2012 12:00 AM ASSAY THYROID STIM HORMONE Reviewed 01/08/2013 12:00 AM Depo-Medrol 80 Mg Im/C'pancho Reviewed 01/08/2013 12:00 AM Decadron, Per 1 Mg [facility]# [address]-39 Reviewed 01/08/2013 12:00 AM Rocephin 1 gram [facility]#1293-7338-90 Reviewed 01/08/2013 12:00 AM COMPREHEN METABOLIC PANEL Reviewed 01/08/2013 12:00 AM GLYCOSYLATED HEMOGLOBIN TEST Reviewed 01/08/2013 12:00 AM ASSAY THYROID STIM HORMONE Reviewed 01/08/2013 12:00 AM ASSAY OF PARATHORMONE Reviewed 01/08/2013 12:00 AM LIPID PANEL Reviewed 02/27/2013 12:00 AM THER/PROPH/DIAG INJ SC/IM Reviewed 02/27/2013 12:00 AM Decadron, Per 1 Mg [facility]# [address]-74 Reviewed 02/27/2013 12:00 AM Depo-Medrol, Per 80 Mg [facility]#7192-5601-44 Reviewed 03/04/2013 12:00 AM MAMMOGRAM SCREENING Reviewed 03/05/2013 12:00 AM CYTOPATH TBS C/V MANUAL Reviewed 03/05/2013 12:00 AM MAMMOGRAM BOTH BREASTS Reviewed 03/27/2013 12:00 AM THER/PROPH/DIAG INJ SC/IM Reviewed 03/27/2013 12:00 AM Bicillin CR, 1.2 million units [facility]# 18001-477-19 Reviewed 05/10/2013 12:00 AM X-RAY EXAM KNEE [...] Decadron, Per 1 Mg [facility]# [address]-55 Reviewed 08/09/2013 12:00 AM Depo-Medrol, Per 80 Mg [facility]#3133-8163-22 Reviewed 08/21/2013 12:00 AM X-RAY EXAM OF [...] 12:00 AM Rocephin 1 gram [facility]#4481-7949-94 Reviewed 04/01/2015 12:00 AM COMPLETE CBC W/AUTO DIFF WBC Reviewed 04/01/2015 12:00 AM COMPREHEN METABOLIC PANEL Reviewed 04/01/2015 12:00 AM ASSAY THYROID STIM HORMONE Reviewed 04/01/2015 12:00 AM CHEST X-RAY 2VW FRONTAL&LATL Reviewed 05/07/2015 12:00 AM THER/PROPH/DIAG INJ SC/IM Reviewed 05/07/2015 12:00 AM Decadron injection Reviewed 05/07/2015 12:00 AM Depo-Medrol 40mg Reviewed 05/11/2011 12:00 AM Depo-Medrol 80 Mg [facility] [id number] Reviewed 05/11/2011 12:00 AM Decadron Inj. per 1mg-[facility] [id number] Reviewed Results Summary Data and Description Results [...] 5.54 HGB 14.50 g/dLHCT 47.10 %MCV 85.0 [facility] 26.20 pgMCHC 30.80 g/dLRDW SD 44 RDW [...] AA* >60 TSH 2.370 uIU/mLT4 6.10 ug/dL History Of Immunizations Name Date Admin Mfg Name Mfg Code Trade Name Lot# Route Inj Vis Given Vis Pub CVX Tdap 04/26/2012 [employer] SKB ADACEL [id number] Intramuscular Left Arm 04/26/2012 08/19/2008 115 Tdap 03/14/2014 [employer] SKB BOOSTRIX [id number] Intramuscular Left Deltoid 03/14/2014 02/07/2013 115 Influenza 06/22/2015 [employer] NOV Fluvirin [id number] Intramuscular Left Deltoid 06/23/2015 05/08/2015 140 History [...] Sep 19 2016 10:18AM Depression 2016 8:57AM Payers Insurance Name Company Name Plan Name Plan Number Policy Number Policy Group Number Start Date [employer] [place] [id number] September [employer] Financial Assistance [facility] Financial Alex 40 percent clinic October [employer] [place] [id number] Friday, October 02, 2009 [employer] [place] [id number] November [employer] Self Insurance Fund *INVALID State Self Insurance [id number] N/A [employer] Self Insurance Fund *INVALID State Self Insurance [id number] N/A [employer] [place] [id number] July History of Encounters Visit Date Visit Type Provider 2016 Office visit Sean Marie MD 09/19/2016 Office visit Sean Marie MD 07/01/2016 Office visit Sean Marie MD 06/17/2016 Office visit Sean Marie MD 05/20/2016 Office visit 05/20/2016 Office visit Sean Marie MD 05/16/2016 Hospital Michelle Greco MD 04/01/2016 Office visit Sean Marie MD 02/25/2016 Office visit Sean Marie MD 01/16/2016 Office visit Jania Stanley PRINCIPAL CYBER ENGINEER 01/07/2016 Hospital Michelle Greco MD 12/31/2015 Office visit Sean Marie MD 12/09/2015 Office visit Miguel A Munoz PRINCIPAL CYBER ENGINEER 11/17/2015 Office visit Sean Marie MD 11/03/2015 Office visit Sean Marie MD 10/09/2015 Office visit 10/09/2015 Office visit Sean Marie MD 08/31/2015 Office visit Sean Marie MD 08/25/2015 Office visit Sean Marie MD 06/05/2015 Office visit Sean Marie MD 05/07/2015 Office visit Amaris Gentile PRINCIPAL CYBER ENGINEER 05/06/2015 Office visit Kiarra Ramos PRINCIPAL CYBER ENGINEER 04/01/2015 Office visit 04/01/2015 Office visit Sean Marie MD 04/01/2015 Hospital Michelle Greco MD 03/26/2015 Office visit Sean Marie MD 03/19/2015 Office visit Sean Marie MD 02/13/2015 Office visit Sean Marie MD 01/26/2015 Office visit Leena Haddad PRINCIPAL CYBER ENGINEER 01/12/2015 Office visit Sean Marie MD 11/24/2014 Office visit Kiarra Ramos PRINCIPAL CYBER ENGINEER 10/22/2014 Office visit Miguel A Munoz PRINCIPAL CYBER ENGINEER 08/22/2014 Office visit Sean Marie MD 08/01/2014 Office visit Sean Marie MD 06/09/2014 Office visit Kiarra Ramos PRINCIPAL CYBER ENGINEER 03/14/2014 Office visit Leena Haddad PRINCIPAL CYBER ENGINEER 02/27/2014 Office visit Leena Haddad PRINCIPAL CYBER ENGINEER 12/02/2013 Office visit Sean Marie MD 11/25/2013 Office visit Sean Marie MD 11/14/2013 Office visit Kiarra Ramos PRINCIPAL CYBER ENGINEER 08/21/2013 Office visit Leena Haddad PRINCIPAL CYBER ENGINEER 08/09/2013 Office visit Kiarra Ramos PRINCIPAL CYBER ENGINEER 06/26/2013 [facility] Michelle Greco MD 06/26/2013 Office visit Sean Marie MD 06/21/2013 Office visit Kiarra Ramos PRINCIPAL CYBER ENGINEER 05/31/2013 Office visit Leena Haddad PRINCIPAL CYBER ENGINEER 05/10/2013 Office visit Leena Haddad PRINCIPAL CYBER ENGINEER 05/03/2013 Office visit Leena Haddad PRINCIPAL CYBER ENGINEER 03/27/2013 Office visit Kiarra Ramos PRINCIPAL CYBER ENGINEER 03/05/2013 Office visit Kiarra Richard PRINCIPAL CYBER ENGINEER 02/27/2013 Office visit Kiarra Richard PRINCIPAL CYBER ENGINEER 01/08/2013 Office visit Sean Marie MD 10/30/2012 Office visit Sean Marie MD 04/26/2012 Nurse visit Maria Antonia Barakat PRINCIPAL CYBER ENGINEER 02/07/2012 Office visit Sean Marie MD 02/07/2012 [facility] Marcela Greco MD 12/13/2011 Office visit Sean Marie MD 11/08/2011 Office visit Sean Marie MD 10/24/2011 Office visit Sean Marie MD 08/05/2011 Office visit Sean Marie MD 07/12/2011 Office visit Kiarra Ramos PRINCIPAL CYBER ENGINEER 05/11/2011 Office visit Sean Marei MD 04/19/2011 Office visit Sean Marie MD 03/17/2011 Office visit Sean Marie MD 03/03/2011 Office visit Sean Maire MD 07/12/2010 Office visit Maggie CH 05/11/2010 Office visit Sean Marie MD 03/15/2010 Office visit Sean Marie MD 03/03/2010 Office visit Sean Marie MD 02/08/2010 Office visit Sean Marie MD 08/21/2009 Laboratory Sean Marie MD 08/21/2009 Voided Sean Marie MD 07/27/2009 Office visit Sean Marie MD 07/06/2009 Nurse visit Sean Marie MD
--- OUTSIDE RECORDS SUMMARY | 2018-07-18 12:58 | XMS REPORT ---
Author Author Sean Marie [facility] Address [address] [place], [place] [address] Care Team Providers Care Liquid Sugar Fortifier Name Role Phone Sean Marie PCP Unavailable Sean Marie PreferredProvider Unavailable Allergies and Adverse Reactions Name Reaction Notes Albuterol tachycardia increases heart rate too much Percocet "head crawling" Adhesive Tape Plan of Treatment Planned Activity Comments Planned Date Planned Time Plan/Goal CT NECK SOFT TISSUE W/WO CONTRAST 03/24/2017 12:00 AM CBC With Auto Differential 01/08/2013 12:00 AM EKG (12-lead electrocardiogram) 06/26/2013 12:00 AM EKG (12-lead electrocardiogram) 04/01/2015 12:00 AM Medications Active Name Start Date Estimated Completion Date SIG Comments aspirin 81 mg oral tablet,delayed release (DR/EC) take 1 tablet (81 mg) by oral route once daily pravastatin 20 mg oral tablet 02/03/2014 TAKE ONE TABLET BY MOUTH EVERY DAY AT BEDTIME [place] Thyroid 60 mg oral tablet 04/07/2014 TAKE ONE TABLET BY MOUTH ONCE DAILY lovastatin 40 mg oral tablet 06/12/2014 take 1 tablet by oral route daily [place] Thyroid 60 mg oral tablet 08/04/2014 TAKE [...] TABLET BY MOUTH ONCE DAILY AT BEDTIME [place] Thyroid 60 mg oral tablet 07/13/2015 TAKE [...] TABLET BY MOUTH ONCE DAILY AT BEDTIME [place] Thyroid 60 mg oral tablet 07/11/2016 TAKE [...] once daily at bedtime for 30 days [place] Thyroid 60 mg oral tablet 12/02/2013 04/01/2014 [...] by oral route once daily at bedtime [place] 5-325 mg oral tablet 08/22/2014 11/24/2014 take [...] 1 Mg [facility]# [address]-06 Reviewed 08/25/2015 12:00 AM Depo-Medrol, Per 80 Mg [facility]#[address]-72 Reviewed 08/25/2015 12:00 AM Rocephin 1 gram [facility]#7052-2851-05 Reviewed 10/09/2015 12:00 AM COMPLETE CBC W/AUTO DIFF WBC Reviewed 10/09/2015 12:00 AM COMPREHEN METABOLIC PANEL Reviewed 10/09/2015 12:00 AM GLYCOSYLATED HEMOGLOBIN TEST Reviewed 10/09/2015 12:00 AM ASSAY THYROID STIM HORMONE Reviewed 11/03/2015 8:54 AM URINALYSIS AUTO W/O SCOPE Reviewed 11/03/2015 12:[address] HEAD/BRAIN W/O & W/DYE Reviewed 11/17/2015 12:00 AM Rocephin 1 gram [facility]#2004-3286-17 Reviewed 08/05/2011 12:00 AM CHEST X-RAY 2VW FRONTAL&LATL Reviewed 12/09/2015 12:00 AM THER/PROPH/DIAG INJ SC/IM Reviewed 12/09/2015 12:00 AM Rocephin 1 gram [facility]#5478-7835-26 Reviewed 11/08/2011 12:00 AM Decadron Inj. per 1mg-[facility] [id number] Reviewed 11/08/2011 12:00 AM Depo-Medrol 80 Mg [facility] [id number] Reviewed 05/20/2016 12:00 AM COMPLETE CBC W/AUTO [...] 1 Mg [facility]# [address]-66 Reviewed 10/30/2012 12:00 AM COMPLETE CBC W/AUTO DIFF WBC Reviewed 10/30/2012 12:00 AM COMPREHEN METABOLIC PANEL Reviewed 10/30/2012 12:00 AM LIPID PANEL Reviewed 10/30/2012 12:00 AM ASSAY THYROID STIM HORMONE Reviewed 01/08/2013 12:00 AM Depo-Medrol 80 Mg Im/C'pancho Reviewed 01/08/2013 12:00 AM Decadron, Per 1 Mg [facility]# [address]-78 Reviewed 01/08/2013 12:00 AM Rocephin 1 gram [facility]#0487-1349-11 Reviewed 01/08/2013 12:00 AM COMPREHEN METABOLIC PANEL Reviewed 01/08/2013 12:00 AM GLYCOSYLATED HEMOGLOBIN TEST Reviewed 01/08/2013 12:00 AM ASSAY THYROID STIM HORMONE Reviewed 01/08/2013 12:00 AM ASSAY OF PARATHORMONE Reviewed 01/08/2013 12:00 AM LIPID PANEL Reviewed 02/27/2013 12:00 AM THER/PROPH/DIAG INJ SC/IM Reviewed 02/27/2013 12:00 AM Decadron, Per 1 Mg [facility]# [address]-75 Reviewed 02/27/2013 12:00 AM Depo-Medrol, Per 80 Mg [facility]#7284-0654-68 Reviewed 03/04/2013 12:00 AM MAMMOGRAM SCREENING Reviewed 03/05/2013 12:00 AM CYTOPATH TBS C/V MANUAL Reviewed 03/05/2013 12:00 AM MAMMOGRAM BOTH BREASTS Reviewed 03/27/2013 12:00 AM THER/PROPH/DIAG INJ SC/IM Reviewed 03/27/2013 12:00 AM Bicillin CR, 1.2 million units [facility]# 58331-882-08 Reviewed 05/10/2013 12:00 AM X-RAY EXAM KNEE [...] 1 Mg [facility]# [address]-30 Reviewed 08/09/2013 12:00 AM Depo-Medrol, Per 80 Mg [facility]#2303-7723-84 Reviewed 08/21/2013 12:00 AM X-RAY EXAM OF [...] Rocephin 1 gram [facility]#5882-3884-21 Reviewed 04/01/2015 12:00 AM COMPLETE CBC W/AUTO DIFF WBC Reviewed 04/01/2015 12:00 AM COMPREHEN METABOLIC PANEL Reviewed 04/01/2015 12:00 AM ASSAY THYROID STIM HORMONE Reviewed 04/01/2015 12:00 AM CHEST X-RAY 2VW FRONTAL&LATL Reviewed 05/07/2015 12:00 AM THER/PROPH/DIAG INJ SC/IM Reviewed 05/07/2015 12:00 AM Decadron injection Reviewed 05/07/2015 12:00 AM Depo-Medrol 40mg Reviewed 05/11/2011 12:00 AM Depo-Medrol 80 Mg [facility] [id number] Reviewed 05/11/2011 12:00 AM Decadron Inj. per 1mg-[facility] [id number]-Mtzeyocdw Reviewed Results Summary Date and Description Results [...] Vis Given Vis Pub CVX Tdap 04/26/2012 [employer] SKB ADACEL [id number] Intramuscular Left Arm 04/26/2012 08/19/2008 115 Tdap 03/14/2014 [employer] SKB BOOSTRIX [id number] Intramuscular Left Deltoid 03/14/2014 02/07/2013 115 Influenza 06/22/2015 [employer] NOV Fluvirin [id number] Intramuscular Left Deltoid 06/23/2015 05/08/2015 140 Pneumococcal [...] Number Start Date [employer] [place] [id number] September [place] [facility] Financial Assistance [facility] Financial Alex 40 percent clinic October [employer] [place] [id number] Friday, October 02, 2009 [employer] [place] [id number] November [employer] Self Insurance Fund *INVALID State Self Insurance [id number] N/A [employer] Self Insurance Fund *INVALID State Self Insurance [id number] N/A [employer] [place] [id number] July History of Encounters Visit Date Visit Type Provider 03/20/2017 Office visit Sean Marie MD 03/03/2017 Office visit Aurora Martin AUDIT OFFICER 01/09/2017 Office visit Saen Marie MD 01/02/2017 Office visit Sean Marie [...] Marie MD 01/16/2016 Office visit Jania Stanley AUDIT OFFICER 01/07/2016 Hospital Michelle Greco MD 12/31/2015 Office visit Sean Marie MD 12/09/2015 Office visit Miguel A Munoz AUDIT OFFICER 11/17/2015 Office visit Sean Marie MD 11/03/2015 Office visit Sean Marie MD 10/09/2015 Office visit 10/09/2015 Office visit Sean Marie MD 08/31/2015 Office visit Sean Marie MD 08/25/2015 Office visit Sean Marie MD 06/05/2015 Office visit Sean Marie MD 05/07/2015 Office visit Amaris Gentile AUDIT OFFICER 05/06/2015 Office visit Kiarra Ramos AUDIT OFFICER 04/01/2015 Office visit 04/01/2015 Office visit Sean Marie MD 04/01/2015 Hospital Michelle Greco MD 03/26/2015 Office visit Sean Marie MD 03/19/2015 Office visit Sean Marie MD 02/13/2015 Office visit Sean Marie MD 01/26/2015 Office visit Leena Haddad AUDIT OFFICER 01/12/2015 Office visit Sean Marie MD 11/24/2014 Office visit Kiarra Ramos AUDIT OFFICER 10/22/2014 Office visit Miguel A Munoz AUDIT OFFICER 08/22/2014 Office visit Sean Marie MD 08/01/2014 Office visit Sean Marie MD 06/09/2014 Office visit Kiarra Ramos AUDIT OFFICER 03/14/2014 Office visit Leena Haddad AUDIT OFFICER 02/27/2014 Office visit Leena Haddad AUDIT OFFICER 12/02/2013 Office visit Sean Marie MD 11/25/2013 Office visit Sean Marie MD 11/14/2013 Office visit Kiarra Richard AUDIT OFFICER 08/21/2013 Office visit Leena Haddad AUDIT OFFICER 08/09/2013 Office visit Kiarra Ramos AUDIT OFFICER 06/26/2013 Hospital Michelle Greco MD 06/26/2013 Office visit Sean Marie MD 06/21/2013 Office visit Kiarra Ramos AUDIT OFFICER 05/31/2013 Office visit Leenaluis miguel Haddad AUDIT OFFICER 05/10/2013 Office visit Leena RodriguezEd Boo AUDIT OFFICER 05/03/2013 Office visit Leena N. Boo AUDIT OFFICER 03/27/2013 Office visit Kiarra Ramos AUDIT OFFICER 03/05/2013 Office visit Kiarra Ramos AUDIT OFFICER 02/27/2013 Office visit Kiarra Ramos AUDIT OFFICER 01/08/2013 Office visit Sean Marie MD 10/30/2012 Office visit Sean Marie MD 04/26/2012 Nurse visit Maria Antonia Barakat AUDIT OFFICER 02/07/2012 Office visit Sean Marie MD 02/07/2012 [facility] Michelle Greco MD 12/13/2011 Office visit Sean Marie MD 11/08/2011 Office visit Sean Marie MD 10/24/2011 Office visit Sean Marie MD 08/05/2011 Office visit Sean Marie MD 07/12/2011 Office visit Kiarra Ramos AUDIT OFFICER 05/11/2011 Office visit Sean Marie MD [...]
[2018-07-18] MEDS ORDERED: LIDOCAINE JELLY 2% 6 ML SYRINGE MM PRN (13:00)
[2018-07-18] MEDS ORDERED: MIDAZOLAM 2 MG/2 ML (VERSED) VIAL IVP ONE (13:00)
[2018-07-18] MEDS ORDERED: fentaNYL INJECTION 100 MCG/2 ML AMP IVP ONE (13:00)
[2018-07-18] MEDS ORDERED: HURRICAINE EXT TUBE (BENZOCAINE) XX PRN (13:00)
--- OUTSIDE RECORDS SUMMARY | 2018-07-18 13:01 | XMS REPORT ---
Author Author Sean Marie [facility] Address [address] [place], [place] [id number] Care Team Providers Care Motel Front Desk Attendant Name Role Phone Sean Marie PCP Unavailable [...] TABLET BY MOUTH EVERY DAY AT BEDTIME [place] Thyroid 60 mg oral tablet 04/07/2014 TAKE ONE TABLET BY MOUTH ONCE DAILY lovastatin 40 mg oral tablet 06/12/2014 take 1 tablet by oral route daily [place] Thyroid 60 mg oral tablet 08/04/2014 TAKE [...] TABLET BY MOUTH ONCE DAILY AT BEDTIME [place] Thyroid 60 mg oral tablet 07/13/2015 TAKE [...] TAKE ONE TABLET BY MOUTH ONCE DAILY [place] Thyroid 60 mg oral tablet 07/11/2016 TAKE [...] once daily at bedtime for 30 days [place] Thyroid 60 mg oral tablet 12/02/2013 04/01/2014 [...] by oral route once daily at bedtime [place] 5-325 mg oral tablet 08/22/2014 11/24/2014 take [...] 08/25/2015 12:00 AM Decadron, Per 1 Mg [facility]# [address]-18 Reviewed 08/25/2015 12:00 AM Depo-Medrol, Per 80 Mg [facility]#[address]-10 Reviewed 08/25/2015 12:00 AM Rocephin 1 gram [facility]#2929-1001-30 Reviewed 10/09/2015 12:00 AM COMPLETE CBC W/AUTO DIFF WBC Reviewed 10/09/2015 12:00 AM COMPREHEN METABOLIC PANEL Reviewed 10/09/2015 12:00 AM GLYCOSYLATED HEMOGLOBIN TEST Reviewed 10/09/2015 12:00 AM ASSAY THYROID STIM HORMONE Reviewed 11/03/2015 8:54 AM URINALYSIS AUTO W/O SCOPE Reviewed 11/03/2015 12:[address] HEAD/BRAIN W/O & W/DYE Reviewed 11/17/2015 12:00 AM Rocephin 1 gram [facility]#4131-6409-28 Reviewed 08/05/2011 12:00 AM CHEST X-RAY 2VW FRONTAL&LATL Reviewed 12/09/2015 12:00 AM THER/PROPH/DIAG INJ SC/IM Reviewed 12/09/2015 12:00 AM Rocephin 1 gram [facility]#4282-8886-74 Reviewed 11/08/2011 12:00 AM Decadron Inj. per 1mg-[facility] [id number] Reviewed 11/08/2011 12:00 AM Depo-Medrol 80 Mg [facility] [id number] Reviewed 05/20/2016 12:00 AM COMPLETE CBC W/AUTO [...] 10/30/2012 12:00 AM Decadron, Per 1 Mg [facility]# [address]-83 Reviewed 10/30/2012 12:00 AM COMPLETE CBC W/AUTO DIFF WBC Reviewed 10/30/2012 12:00 AM COMPREHEN METABOLIC PANEL Reviewed 10/30/2012 12:00 AM LIPID PANEL Reviewed 10/30/2012 12:00 AM ASSAY THYROID STIM HORMONE Reviewed 01/08/2013 12:00 AM Depo-Medrol 80 Mg Im/C'pancho Reviewed 01/08/2013 12:00 AM Decadron, Per 1 Mg [facility]# [address]-99 Reviewed 01/08/2013 12:00 AM Rocephin 1 gram [facility]#2195-0675-82 Reviewed 01/08/2013 12:00 AM COMPREHEN METABOLIC PANEL Reviewed 01/08/2013 12:00 AM GLYCOSYLATED HEMOGLOBIN TEST Reviewed 01/08/2013 12:00 AM ASSAY THYROID STIM HORMONE Reviewed 01/08/2013 12:00 AM ASSAY OF PARATHORMONE Reviewed 01/08/2013 12:00 AM LIPID PANEL Reviewed 02/27/2013 12:00 AM THER/PROPH/DIAG INJ SC/IM Reviewed 02/27/2013 12:00 AM Decadron, Per 1 Mg [facility]# [address]-54 Reviewed 02/27/2013 12:00 AM Depo-Medrol, Per 80 Mg [facility]#8918-3287-26 Reviewed 03/04/2013 12:00 AM MAMMOGRAM SCREENING Reviewed 03/05/2013 12:00 AM CYTOPATH TBS C/V MANUAL Reviewed 03/05/2013 12:00 AM MAMMOGRAM BOTH BREASTS Reviewed 03/27/2013 12:00 AM THER/PROPH/DIAG INJ SC/IM Reviewed 03/27/2013 12:00 AM Bicillin CR, 1.2 million units [facility]# 12297-652-92 Reviewed 05/10/2013 12:00 AM X-RAY EXAM KNEE [...] 08/09/2013 12:00 AM Decadron, Per 1 Mg [facility]# [address]-61 Reviewed 08/09/2013 12:00 AM Depo-Medrol, Per 80 Mg [facility]#6750-0478-90 Reviewed 08/21/2013 12:00 AM X-RAY EXAM OF [...] Reviewed 03/26/2015 12:00 AM Rocephin 1 gram [facility]#2390-2588-70 Reviewed 04/01/2015 12:00 AM COMPLETE CBC W/AUTO DIFF WBC Reviewed 04/01/2015 12:00 AM COMPREHEN METABOLIC PANEL Reviewed 04/01/2015 12:00 AM ASSAY THYROID STIM HORMONE Reviewed 04/01/2015 12:00 AM CHEST X-RAY 2VW FRONTAL&LATL Reviewed 05/07/2015 12:00 AM THER/PROPH/DIAG INJ SC/IM Reviewed 05/07/2015 12:00 AM Decadron injection Reviewed 05/07/2015 12:00 AM Depo-Medrol 40mg Reviewed 05/11/2011 12:00 AM Depo-Medrol 80 Mg [facility] [id number] Reviewed 05/11/2011 12:00 AM Decadron Inj. per 1mg-[facility] [id number] Reviewed Results Summary Date and Description Results [...] Vis Given Vis Pub CVX Tdap 04/26/2012 [employer] SKB ADACEL [id number] Intramuscular Left Arm 04/26/2012 08/19/2008 115 Tdap 03/14/2014 [employer] SKB BOOSTRIX [id number] Intramuscular Left Deltoid 03/14/2014 02/07/2013 115 Influenza 06/22/2015 [employer]. NOV Fluvirin [id number] Intramuscular Left Deltoid 06/23/2015 05/08/2015 140 Pneumococcal [...] Number Start Date [employer] [place] [id number] September [facility] Financial Assistance [facility] Financial Alex 40 percent clinic October [employer] [place] [id number] Friday, October 02, 2009 [employer] [place] [id number] November [place] *INVALID State Self Insurance [id number] N/A [facility] Self Insurance Fund *INVALID State Self Insurance [id number] N/A [employer] [place] [id number] July History of Encounters Visit Date Visit Type Provider 05/15/2017 Office visit Sean Marie MD 04/23/2017 Office visit Aurora Martin ENERGY CONSERVATION REPRESENTATIVE 04/14/2017 Office visit Sean aMrie MD 03/20/2017 Office visit Sean Marie MD 03/03/2017 Office visit Aurora Martin ENERGY CONSERVATION REPRESENTATIVE 01/09/2017 Office visit Sean Marie MD 01/02/2017 Office visit Sean Marie MD 12/27/2016 Office visit Sean Marie MD 2016 Office visit Sean Mraie MD 09/19/2016 Office visit Sean Marie MD 07/01/2016 Office visit Sean Marie MD 06/17/2016 Office visit Sean Marie MD 05/20/2016 Office visit 05/20/2016 Office visit Sean Marie MD 05/16/2016 Hospital Michelle Greco MD 04/01/2016 Office visit Sean Marie MD 02/25/2016 Office visit Sean Marie MD 01/16/2016 Office visit Jania Stanley ENERGY CONSERVATION REPRESENTATIVE 01/07/2016 Hospital Michelle Greco MD 12/31/2015 Office visit Sean Marie MD 12/09/2015 Office visit Miguel A Munoz ENERGY CONSERVATION REPRESENTATIVE 11/17/2015 Office visit Sean Marie MD 11/03/2015 Office visit Sean Marie MD 10/09/2015 Office visit 10/09/2015 Office visit Sean Marie MD 08/31/2015 Office visit Sean Marie MD 08/25/2015 Office visit Sean Marie MD 06/05/2015 Office visit Sean Marie MD 05/07/2015 Office visit Amaris Gentile ENERGY CONSERVATION REPRESENTATIVE 05/06/2015 Office visit Kiarra Ramos ENERGY CONSERVATION REPRESENTATIVE 04/01/2015 Office visit 04/01/2015 Office visit Sean Marie MD 04/01/2015 Hospital Michelle Greco MD 03/26/2015 Office visit Sean Marie MD 03/19/2015 Office visit Sean Marie MD 02/13/2015 Office visit Sean Marie MD 01/26/2015 Office visit Leena Haddad ENERGY CONSERVATION REPRESENTATIVE 01/12/2015 Office visit Sean Marie MD 11/24/2014 Office visit Kiarra Ramos ENERGY CONSERVATION REPRESENTATIVE 10/22/2014 Office visit Miguel A Munoz ENERGY CONSERVATION REPRESENTATIVE 08/22/2014 Office visit Sean Marie MD 08/01/2014 Office visit Sean Marie MD 06/09/2014 Office visit Kiarra Ramos ENERGY CONSERVATION REPRESENTATIVE 03/14/2014 Office visit Leena Haddad ENERGY CONSERVATION REPRESENTATIVE 02/27/2014 Office visit Leena Haddad ENERGY CONSERVATION REPRESENTATIVE 12/02/2013 Office visit Sean Marie MD 11/25/2013 Office visit Sean Marie MD 11/14/2013 Office visit Kiarra Ramos ENERGY CONSERVATION REPRESENTATIVE 08/21/2013 Office visit Leena Haddad ENERGY CONSERVATION REPRESENTATIVE 08/09/2013 Office visit Kiarra Ramos ENERGY CONSERVATION REPRESENTATIVE 06/26/2013 Hospital Michelle Greco MD 06/26/2013 Office visit Sean Marie MD 06/21/2013 Office visit Kiarra Ramos ENERGY CONSERVATION REPRESENTATIVE 05/31/2013 Office visit Leena Haddad ENERGY CONSERVATION REPRESENTATIVE 05/10/2013 Office visit Leena Haddad ENERGY CONSERVATION REPRESENTATIVE 05/03/2013 Office visit Leena Haddad ENERGY CONSERVATION REPRESENTATIVE 03/27/2013 Office visit Kiarra Richard ENERGY CONSERVATION REPRESENTATIVE 03/05/2013 Office visit Kiarra Ramos ENERGY CONSERVATION REPRESENTATIVE 02/27/2013 Office visit Kiarra Richard ENERGY CONSERVATION REPRESENTATIVE 01/08/2013 Office visit Sean Marie MD 10/30/2012 Office visit Sean Marie MD 04/26/2012 Nurse visit Maria Antonia Barakat ENERGY CONSERVATION REPRESENTATIVE 02/07/2012 Office visit Sean Marie MD 02/07/2012 [facility] Marcela Greco MD 12/13/2011 Office visit Sean Marie MD 11/08/2011 Office visit Sean Marie MD 10/24/2011 Office visit Sean Marie MD 08/05/2011 Office visit Sean Marie MD 07/12/2011 Office visit Kiarra Ramos ENERGY CONSERVATION REPRESENTATIVE 05/11/2011 Office visit Sean Marie MD 04/19/2011 [...]
[2018-07-18 13:02] VITALS: BP 173/68
--- OUTSIDE RECORDS SUMMARY | 2018-07-18 13:03 | XMS REPORT ---
Author Author Sean Marie [facility] Address [address] [place], [place] [id number] Care Team Providers Care Laundry Presser Name Role Phone Sean Marie PCP Unavailable [...] TABLET BY MOUTH EVERY DAY AT BEDTIME [place] Thyroid 60 mg oral tablet 04/07/2014 TAKE ONE TABLET BY MOUTH ONCE DAILY Zofran ODT oral lovastatin 40 mg oral tablet 06/12/2014 take 1 tablet by oral route daily [place] Thyroid 60 mg oral tablet 08/04/2014 TAKE ONE TABLET BY MOUTH ONCE DAILY Xanax 0.25 mg oral tablet may take 1 tablet as needed daily baclofen 10 mg oral tablet 08/22/2014 take 1 tablet by oral route 3 times a day as needed lovastatin 40 mg oral tablet 10/06/2014 TAKE ONE TABLET BY MOUTH ONCE DAILY AT BEDTIME Cymbalta 60 mg oral capsule,delayed release(DR/EC) 11/03/2014 10/29/2015 TAKE ONE CAPSULE BY MOUTH EVERY DAY for 90 days lovastatin 40 mg oral tablet 11/10/2014 TAKE [...] mouth at bedtime. for 90 days Toviaz 8 mg oral tablet extended release 24 hr 03/19/2015 06/11/2016 take 1 tablet (8 mg) by oral route once daily for 90 days Xopenex 1.25 mg/3 mL inhalation solution for nebulization 03/27/2015 inhale 3 milliliters (1.25 mg) by nebulization route 3 times per day Garcinia Cambogia 200-500 mcg-mg oral tablet Lyrica [...] TABLET BY MOUTH ONCE DAILY AT BEDTIME Skelaxin 800 mg oral tablet 06/05/2015 07/05/2015 take 1 tablet (800 mg) by oral route 3 times per day as needed for 30 days Name [...] once daily at bedtime for 30 days [place] Thyroid 60 mg oral tablet 12/02/2013 04/01/2014 [...] by oral route daily for 7 days Discontinued Name Start Date [...] by inhalation route 2 times a day [place] 5-325 mg oral tablet 08/22/2014 11/24/2014 take [...] HC BMI BSA BMI Percentile O2 Sat(%) 06/05/2015 9:52:00 AM 138 mmHg 82 mmHg [...] 10/30/2012 12:00 AM Decadron, Per 1 Mg [facility]# [address]-07 Reviewed 10/30/2012 12:00 AM COMPLETE CBC W/AUTO DIFF WBC Reviewed 10/30/2012 12:00 AM COMPREHEN METABOLIC PANEL Reviewed 10/30/2012 12:00 AM LIPID PANEL Reviewed 10/30/2012 12:00 AM ASSAY THYROID STIM HORMONE Reviewed 01/08/2013 12:00 AM Depo-Medrol 80 Mg Im/C'pancho Reviewed 01/08/2013 12:00 AM Decadron, Per 1 Mg [facility]# [address]-44 Reviewed 01/08/2013 12:00 AM Rocephin 1 gram [facility]#9301-2804-24 Reviewed 01/08/2013 12:00 AM COMPREHEN METABOLIC PANEL Reviewed 01/08/2013 12:00 AM GLYCOSYLATED HEMOGLOBIN TEST Reviewed 01/08/2013 12:00 AM ASSAY THYROID STIM HORMONE Reviewed 01/08/2013 12:00 AM ASSAY OF PARATHORMONE Reviewed 01/08/2013 12:00 AM LIPID PANEL Reviewed 02/27/2013 12:00 AM THER/PROPH/DIAG INJ SC/IM Reviewed 02/27/2013 12:00 AM Decadron, Per 1 Mg [facility]# [address]-62 Reviewed 02/27/2013 12:00 AM Depo-Medrol, Per 80 Mg [facility]#9144-1812-94 Reviewed 03/04/2013 12:00 AM MAMMOGRAM SCREENING Returned 03/05/2013 12:00 AM CYTOPATH TBS C/V MANUAL Returned 03/05/2013 12:00 AM MAMMOGRAM BOTH BREASTS Returned 03/27/2013 12:00 AM THER/PROPH/DIAG INJ SC/IM Reviewed 03/27/2013 12:00 AM Bicillin CR, 1.2 million units [facility]# 01334-875-33 Reviewed 05/10/2013 12:00 AM X-RAY EXAM KNEE [...] 08/09/2013 12:00 AM Decadron, Per 1 Mg [facility]# [address]-54 Reviewed 08/09/2013 12:00 AM Depo-Medrol, Per 80 Mg [facility]#2898-3212-39 Reviewed 08/21/2013 12:00 AM X-RAY EXAM OF [...] Reviewed 03/26/2015 12:00 AM Rocephin 1 gram [facility]#3413-8723-28 Reviewed 04/01/2015 12:00 AM COMPLETE CBC W/AUTO DIFF WBC Reviewed 04/01/2015 12:00 AM COMPREHEN METABOLIC PANEL Reviewed 04/01/2015 12:00 AM ASSAY THYROID STIM HORMONE Reviewed 04/01/2015 12:00 AM CHEST X-RAY 2VW FRONTAL&LATL Reviewed 05/07/2015 12:00 AM THER/PROPH/DIAG INJ SC/IM Reviewed 05/07/2015 12:00 AM Decadron injection Reviewed 05/07/2015 12:00 AM Depo-Medrol 40mg Reviewed 05/11/2011 12:00 AM Depo-Medrol 80 Mg [facility] [id number] Reviewed 05/11/2011 12:00 AM Decadron Inj. per 1mg-[facility] [id number] Reviewed Results Summary Data and Description Results [...] 0.40 mg/ dLCALCIUM 9.80 mg/dLeGFR >60 mL/min/1.73 [id number] 250.0 mg/dLCHOLESTEROL 180.0 mg/dLHDL 39.0 mg/dLLDL (CALC) [...] Vis Given Vis Pub CVX Tdap 04/26/2012 [employer] SKB ADACEL [id number] Intramuscular Left Arm 04/26/2012 08/19/2008 115 Tdap 03/14/2014 [employer] SKB BOOSTRIX [id number] Intramuscular Left Deltoid 03/14/2014 [...] Low Back Pain Jun 05 2015 9:56AM Payers Insurance Name Company Name Plan Name Plan Number Policy Number Policy Group Number [id number] September [employer] Financial Assistance [facility] Financial Alex 40 percent clinic October [facility] [id number] Tuesday, August 30, 2011 [facility] [id number] November State Self Insurance Fund *INVALID State Self Insurance [id number] N /A State Self Insurance Fund *INVALID State Self Insurance [id number] N /A [facility] [id number] July History of Encounters Visit Date Visit Type Provider 06/05/2015 Office visit Sean Marie MD 05/07/2015 Office visit Amaris Gentile STEAM SETTER 05/06/2015 Office visit Kiarra Ramos STEAM SETTER 04/01/2015 Office visit Sean Marie MD 04/01/2015 [facility] Michelle Greco MD 03/26/2015 Office visit Sean Marie MD 03/19/2015 Office visit Sean Marie MD 02/13/2015 Office visit Sean Marie MD 01/26/2015 Office visit Leena Haddad STEAM SETTER 01/12/2015 Office visit Sean Marie MD 11/24/2014 Office visit Kiarra Ramos STEAM SETTER 10/22/2014 Office visit Miguel A Munoz STEAM SETTER 08/22/2014 Office visit Sean Marie MD 08/01/2014 Office visit Sean Marie MD 06/09/2014 Office visit Kiarra Ramos STEAM SETTER 03/14/2014 Office visit Leena Haddad STEAM SETTER 02/27/2014 Office visit Leena Haddad STEAM SETTER 12/02/2013 Office visit Sean Marie MD 11/25/2013 Office visit Sean Marie MD 11/14/2013 Office visit Kiarra Ramos STEAM SETTER 08/21/2013 Office visit Leena Haddad STEAM SETTER 08/09/2013 Office visit Kiarra Ramos STEAM SETTER 06/26/2013 Hospital Michelle rGeco MD 06/26/2013 Office visit Sean Marie MD 06/21/2013 Office visit Kiarra Ramos STEAM SETTER 05/31/2013 Office visit Leena Haddad STEAM SETTER 05/10/2013 Office visit Leena Haddad STEAM SETTER 05/03/2013 Office visit Leena Haddad STEAM SETTER 03/27/2013 Office visit Kiarra Ramos STEAM SETTER 03/05/2013 Office visit Kiarra Ramos STEAM SETTER 02/27/2013 Office visit Kiarra Ramos STEAM SETTER 01/08/2013 Office visit Sean Marie MD 10/30/2012 Office visit Sean Marie MD 04/26/2012 Nurse visit Maria Antonia Barakat STEAM SETTER 02/07/2012 Office visit Sean Marie MD 02/07/2012 [facility] Marcela Greco MD 12/13/2011 Office visit Sean Marie MD 11/08/2011 Office visit Sean Marie MD 10/24/2011 Office visit Sean Marie MD 08/05/2011 Office visit Sean Marie MD 07/12/2011 Office visit Kiarra Ramos STEAM SETTER 05/11/2011 Office visit Sean Marie MD 04/19/2011 [...]
--- OUTSIDE RECORDS SUMMARY | 2018-07-18 13:05 | XMS REPORT ---
Author Author Sean Marie [facility] Address [address] [place], [place] [id number] Care Team Providers Care Emt Intermediate Name Role Phone Sean Marie PCP Unavailable [...] TABLET BY MOUTH EVERY DAY AT BEDTIME [place] Thyroid 60 mg oral tablet 04/07/2014 TAKE ONE TABLET BY MOUTH ONCE DAILY lovastatin 40 mg oral tablet 06/12/2014 take 1 tablet by oral route daily [place] Thyroid 60 mg oral tablet 08/04/2014 TAKE [...] TABLET BY MOUTH ONCE DAILY AT BEDTIME [place] Thyroid 60 mg oral tablet 07/13/2015 TAKE [...] TABLET BY MOUTH ONCE DAILY AT BEDTIME [place] Thyroid 60 mg oral tablet 07/11/2016 TAKE [...] daily in the morning for 30 days Spiriva Respimat 2.5 mcg/actuation inhalation mist 09/19/2016 [...] oral route once daily for 30 days Amitiza 8 mcg oral capsule take 1 capsule (8 mcg) by oral route 2 times per day with food and water pantoprazole 40 mg oral tablet,delayed release (DR/EC) 12/05/2016 TAKE ONE TABLET BY MOUTH ONCE DAILY oxycodone 15 mg oral tablet 12/27/2016 take 1 tablet (15 mg) by oral route every 4 hours Premarin 0.3 mg oral tablet 01/02/2017 01/07/2017 take 1 tablet (0.3 mg) by oral route once daily for 5 days Name Start Date Expiration Date SIG [...] once daily at bedtime for 30 days [place] Thyroid 60 mg oral tablet 12/02/2013 04/01/2014 [...] by oral route once daily at bedtime Bruni 5-325 mg oral tablet 08/22/2014 11/24/2014 take [...] HC BMI BSA BMI Percentile O2 Sat(%) 01/02/2017 1:38:00 PM 134 mmHg 86 mmHg [...] 12:00 AM Decadron, Per 1 Mg [facility]# [address]-21 Reviewed 08/25/2015 12:00 AM Depo-Medrol, Per 80 Mg [facility]#[address]-00 Reviewed 08/25/2015 12:00 AM Rocephin 1 gram [facility]#5249-7822-29 Reviewed 10/09/2015 12:00 AM COMPLETE CBC W/AUTO DIFF WBC Reviewed 10/09/2015 12:00 AM COMPREHEN METABOLIC PANEL Reviewed 10/09/2015 12:00 AM GLYCOSYLATED HEMOGLOBIN TEST Reviewed 10/09/2015 12:00 AM ASSAY THYROID STIM HORMONE Reviewed 11/03/2015 8:54 AM URINALYSIS AUTO W/O SCOPE Reviewed 11/03/2015 12:[address] HEAD/BRAIN W/O & W/DYE Reviewed 11/17/2015 12:00 AM Rocephin 1 gram [facility]#1064-0683-72 Reviewed 08/05/2011 12:00 AM CHEST X-RAY 2VW FRONTAL&LATL Reviewed 12/09/2015 12:00 AM THER/PROPH/DIAG INJ SC/IM Reviewed 12/09/2015 12:00 AM Rocephin 1 gram [facility]#5166-1936-04 Reviewed 11/08/2011 12:00 AM Decadron Inj. per 1mg-[facility] [id number] Reviewed 11/08/2011 12:00 AM Depo-Medrol 80 Mg [facility] [id number] Reviewed 05/20/2016 12:00 AM COMPLETE CBC W/AUTO [...] 12:00 AM Decadron, Per 1 Mg [facility]# [address]-87 Reviewed 10/30/2012 12:00 AM COMPLETE CBC W/AUTO DIFF WBC Reviewed 10/30/2012 12:00 AM COMPREHEN METABOLIC PANEL Reviewed 10/30/2012 12:00 AM LIPID PANEL Reviewed 10/30/2012 12:00 AM ASSAY THYROID STIM HORMONE Reviewed 01/08/2013 12:00 AM Depo-Medrol 80 Mg Im/C'pancho Reviewed 01/08/2013 12:00 AM Decadron, Per 1 Mg [facility]# [address]-63 Reviewed 01/08/2013 12:00 AM Rocephin 1 gram [facility]#6780-8517-40 Reviewed 01/08/2013 12:00 AM COMPREHEN METABOLIC PANEL Reviewed 01/08/2013 12:00 AM GLYCOSYLATED HEMOGLOBIN TEST Reviewed 01/08/2013 12:00 AM ASSAY THYROID STIM HORMONE Reviewed 01/08/2013 12:00 AM ASSAY OF PARATHORMONE Reviewed 01/08/2013 12:00 AM LIPID PANEL Reviewed 02/27/2013 12:00 AM THER/PROPH/DIAG INJ SC/IM Reviewed 02/27/2013 12:00 AM Decadron, Per 1 Mg [facility]# [address]-79 Reviewed 02/27/2013 12:00 AM Depo-Medrol, Per 80 Mg [facility]#5990-8253-09 Reviewed 03/04/2013 12:00 AM MAMMOGRAM SCREENING Reviewed 03/05/2013 12:00 AM CYTOPATH TBS C/V MANUAL Reviewed 03/05/2013 12:00 AM MAMMOGRAM BOTH BREASTS Reviewed 03/27/2013 12:00 AM THER/PROPH/DIAG INJ SC/IM Reviewed 03/27/2013 12:00 AM Bicillin CR, 1.2 million units [facility]# 23171-775-18 Reviewed 05/10/2013 12:00 AM X-RAY EXAM KNEE [...] 12:00 AM Decadron, Per 1 Mg [facility]# [address]-00 Reviewed 08/09/2013 12:00 AM Depo-Medrol, Per 80 Mg [facility]#0625-9659-86 Reviewed 08/21/2013 12:00 AM X-RAY EXAM OF [...] 03/26/2015 12:00 AM Rocephin 1 gram [facility]#7976-1163-99 Reviewed 04/01/2015 12:00 AM COMPLETE CBC W/AUTO DIFF WBC Reviewed 04/01/2015 12:00 AM COMPREHEN METABOLIC PANEL Reviewed 04/01/2015 12:00 AM ASSAY THYROID STIM HORMONE Reviewed 04/01/2015 12:00 AM CHEST X-RAY 2VW FRONTAL&LATL Reviewed 05/07/2015 12:00 AM THER/PROPH/DIAG INJ SC/IM Reviewed 05/07/2015 12:00 AM Decadron injection Reviewed 05/07/2015 12:00 AM Depo-Medrol 40mg Reviewed 05/11/2011 12:00 AM Depo-Medrol 80 Mg [facility] [id number] Reviewed 05/11/2011 12:00 AM Decadron Inj. per 1mg-[facility] [id number] Reviewed Results Summary Data and Description Results [...] 91 eGFR >60 mL/min/1.73m eGFR AA* >60 History Of Immunizations Name Date Admin Mfg Name Mfg Code Trade Name Lot# Route Inj Vis Given Vis Pub CVX Tdap 04/26/2012 [employer] SKB ADACEL [id number] Intramuscular Left Arm 04/26/2012 08/19/2008 115 Tdap 03/14/2014 [employer] SKB BOOSTRIX [id number] Intramuscular Left Deltoid 03/14/2014 02/07/2013 115 Influenza 06/22/2015 [employer] Pamela. NOV Fluvirin [id number] Intramuscular Left Deltoid 06/23/2015 05/08/2015 140 Pneumococcal [...] 2015 10:13AM Incontinence of urine in female Nov 24 2015 10:13AM Bursitis of knee, left Aug [...] Hormone replacement therapy Jan 02 2017 1:41PM Payers Insurance Name Company Name Plan Name Plan Number Policy Number Policy Group Number Start Date BCBS Bcbs [facility] [id number] September [employer] Financial Assistance [employer] Financial Alex 40 percent clinic October BCBS [employer] [place] [id number] Friday, October 02, 2009 BCBS [employer] [place] [id number] November [id number] Self Insurance Fund *INVALID State Self Insurance [id number] N/A [facility] Self Insurance Fund *INVALID State Self Insurance [id number] N/A BCBS [facility] [id number] July History of Encounters Visit Date Visit Type Provider 01/02/2017 Office visit Sean Marie MD 12/27/2016 [...] Marie MD 01/16/2016 Office visit Jania Stanley LOADING RACK SUPERVISOR 01/07/2016 Hospital Michelle Greco MD 12/31/2015 Office visit Sean Marie MD 12/09/2015 Office visit Miguel A Munoz LOADING RACK SUPERVISOR 11/17/2015 Office visit Sean Marie MD 11/03/2015 Office visit Sean Marie MD 10/09/2015 Office visit 10/09/2015 Office visit Sean Marie MD 08/31/2015 Office visit Sean Marie MD 08/25/2015 Office visit Sean Marie MD 06/05/2015 Office visit Sean Marie MD 05/07/2015 Office visit Amaris Gnetile LOADING RACK SUPERVISOR 05/06/2015 Office visit Kiarra Ramos LOADING RACK SUPERVISOR 04/01/2015 Office visit 04/01/2015 Office visit Sean Marie MD 04/01/2015 Hospital Michelle Greco MD 03/26/2015 Office visit Sean Marie MD 03/19/2015 Office visit Sean Marie MD 02/13/2015 Office visit Sean Marie MD 01/26/2015 Office visit Leena Haddad LOADING RACK SUPERVISOR 01/12/2015 Office visit Sean Marie MD 11/24/2014 Office visit Kiarra Ramos LOADING RACK SUPERVISOR 10/22/2014 Office visit Miguel A Munoz LOADING RACK SUPERVISOR 08/22/2014 Office visit Sean Marie MD 08/01/2014 Office visit Sean Marie MD 06/09/2014 Office visit Kiarra Ramos LOADING RACK SUPERVISOR 03/14/2014 Office visit Leena Haddad LOADING RACK SUPERVISOR 02/27/2014 Office visit Leena Haddad LOADING RACK SUPERVISOR 12/02/2013 Office visit Sean Marie MD 11/25/2013 Office visit Sean Marie MD 11/14/2013 Office visit Kiarra Richard LOADING RACK SUPERVISOR 08/21/2013 Office visit Leena RodriguezEd Boo LOADING RACK SUPERVISOR 08/09/2013 Office visit Kiarra Ramos LOADING RACK SUPERVISOR 06/26/2013 [facility] Michelle Greco MD 06/26/2013 Office visit Sean Marie MD 06/21/2013 Office visit Kiarra Ramos LOADING RACK SUPERVISOR 05/31/2013 Office visit Leena Haddad LOADING RACK SUPERVISOR 05/10/2013 Office visit Leena Mona Boo LOADING RACK SUPERVISOR 05/03/2013 Office visit Elena N. Boo LOADING RACK SUPERVISOR 03/27/2013 Office visit Kiarra Ramos LOADING RACK SUPERVISOR 03/05/2013 Office visit Kiarra Ramos LOADING RACK SUPERVISOR 02/27/2013 Office visit Kiarra Richard LOADING RACK SUPERVISOR 01/08/2013 Office visit Sean Marie MD 10/30/2012 Office visit Sean Marie MD 04/26/2012 Nurse visit Maria Antonia Barakat LOADING RACK SUPERVISOR 02/07/2012 Office visit Sean Marie MD 02/07/2012 [facility] Michelle Greco MD 12/13/2011 Office visit Sean Marie MD 11/08/2011 Office visit Sean Marie MD 10/24/2011 Office visit Sean Marie MD 08/05/2011 Office visit Sean Marie MD 07/12/2011 Office visit Kiarra Ramos LOADING RACK SUPERVISOR 05/11/2011 Office visit Sean Marie MD 04/19/2011 [...]
--- OUTSIDE RECORDS SUMMARY | 2018-07-18 13:07 | XMS REPORT ---
Author Author Sean Marie [facility] Address [address] [place], [place] [id number] Care Team Providers Care Metal Casket Maker Name Role Phone Sean Marie PCP Unavailable Allergies and Adverse Reactions Name Reaction Notes Albuterol tachycardia increases heart rate too much Percocet "head crawling" Plan of Treatment Planned Activity Comments Planned Date Planned Time Plan/Goal CT HEAD/BRAIN W/O & W/DYE 11/03/2015 12:00 AM COMPLETE CBC W/AUTO DIFF WBC 01/08/2013 12:00 AM ELECTROCARDIOGRAM COMPLETE 06/26/2013 12:00 AM ELECTROCARDIOGRAM COMPLETE 04/01/2015 12:00 AM Medications Active Name Start Date Estimated Completion Date SIG Comments aspirin 81 mg oral tablet,delayed release (DR/EC) take 1 tablet (81 mg) by oral route once daily pravastatin 20 mg oral tablet 02/03/2014 TAKE ONE TABLET BY MOUTH EVERY DAY AT BEDTIME [place] Thyroid 60 mg oral tablet 04/07/2014 TAKE ONE TABLET BY MOUTH ONCE DAILY lovastatin 40 mg oral tablet 06/12/2014 take 1 tablet by oral route daily [place] Thyroid 60 mg oral tablet 08/04/2014 TAKE [...] TAKE ONE TABLET BY MOUTH ONCE DAILY [place] Thyroid 60 mg oral tablet 07/13/2015 TAKE [...] by inhalation route 2 times per day metaxalone 800 mg oral tablet 10/12/2015 TAKE ONE TABLET BY MOUTH THREE TIMES DAILY NEEDED Lyrica 75 mg oral capsule 10/12/2015 04/09/2016 take 1 capsule by oral route 3 times a day for 30 days furosemide 40 mg oral tablet 10/19/2015 TAKE ONE TABLET BY MOUTH ONCE DAILY IN THE MORNING NEEDED lovastatin 40 mg oral tablet 11/02/2015 TAKE ONE TABLET BY MOUTH ONCE DAILY AT BEDTIME Flagyl 500 mg oral tablet 11/03/2015 11/10/2015 take 1 tablet (500 mg) by oral route every 12 hours for 7 days Name Start Date Expiration [...] once daily at bedtime for 30 days [place] Thyroid 60 mg oral tablet 12/02/2013 04/01/2014 [...] by inhalation route 2 times a day [place] 5-325 mg oral tablet 08/22/2014 11/24/2014 take [...] HC BMI BSA BMI Percentile O2 Sat(%) 11/03/2015 8:34:00 AM 136 mmHg 84 mmHg [...] Mg [facility]# [address]-46 Reviewed 08/25/2015 12:00 AM Depo-Medrol, Per 80 Mg [facility]#[address]-56 Reviewed 08/25/2015 12:00 AM Rocephin 1 gram [facility]#3678-6924-76 Reviewed 10/09/2015 12:00 AM COMPLETE CBC W/AUTO DIFF WBC Returned 10/09/2015 12:00 AM COMPREHEN METABOLIC PANEL Returned 10/09/2015 12:00 AM GLYCOSYLATED HEMOGLOBIN TEST Returned 10/09/2015 12:00 AM ASSAY THYROID STIM HORMONE Returned 11/03/2015 8:54 AM URINALYSIS AUTO W/O SCOPE Reviewed 08/05/2011 12:00 AM CHEST X-RAY 2VW [...] Mg [facility]# [address]-33 Reviewed 10/30/2012 12:00 AM COMPLETE CBC W/AUTO DIFF WBC Reviewed 10/30/2012 12:00 AM COMPREHEN METABOLIC PANEL Reviewed 10/30/2012 12:00 AM LIPID PANEL Reviewed 10/30/2012 12:00 AM ASSAY THYROID STIM HORMONE Reviewed 01/08/2013 12:00 AM Depo-Medrol 80 Mg Im/C'pancho Reviewed 01/08/2013 12:00 AM Decadron, Per 1 Mg [facility]# [address]-94 Reviewed 01/08/2013 12:00 AM Rocephin 1 gram [facility]#9945-7265-60 Reviewed 01/08/2013 12:00 AM COMPREHEN METABOLIC PANEL Reviewed 01/08/2013 12:00 AM GLYCOSYLATED HEMOGLOBIN TEST Reviewed 01/08/2013 12:00 AM ASSAY THYROID STIM HORMONE Reviewed 01/08/2013 12:00 AM ASSAY OF PARATHORMONE Reviewed 01/08/2013 12:00 AM LIPID PANEL Reviewed 02/27/2013 12:00 AM THER/PROPH/DIAG INJ SC/IM Reviewed 02/27/2013 12:00 AM Decadron, Per 1 Mg [facility]# [address]-56 Reviewed 02/27/2013 12:00 AM Depo-Medrol, Per 80 Mg [facility]#8660-9547-42 Reviewed 03/04/2013 12:00 AM MAMMOGRAM SCREENING Returned 03/05/2013 12:00 AM CYTOPATH TBS C/V MANUAL Returned 03/05/2013 12:00 AM MAMMOGRAM BOTH BREASTS Returned 03/27/2013 12:00 AM THER/PROPH/DIAG INJ SC/IM Reviewed 03/27/2013 12:00 AM Bicillin CR, 1.2 million units [facility]# 96720-124-86 Reviewed 05/10/2013 12:00 AM X-RAY EXAM KNEE [...] Mg [facility]# [address]-10 Reviewed 08/09/2013 12:00 AM Depo-Medrol, Per 80 Mg [facility]#9702-1066-32 Reviewed 08/21/2013 12:00 AM X-RAY EXAM OF [...] 1 gram [facility]#7872-9904-14 Reviewed 04/01/2015 12:00 AM COMPLETE CBC W/AUTO [...] Mg [facility] [id number] Reviewed 05/11/2011 12:00 AM Decadron Inj. per 1mg-[facility] [id number] Reviewed Results Summary Data and Description Results [...] 0.40 mg/ dLCALCIUM 9.80 mg/dLeGFR >60 mL/min/1.73 [id number] 250.0 mg/dLCHOLESTEROL 180.0 mg/dLHDL 39.0 mg/dLLDL (CALC) [...] Vis Given Vis Pub CVX Tdap 04/26/2012 [employer]medi[employer] SK[employer] ADACEL [id number] Intramuscular Left Arm 04/26/2012 08/19/2008 115 Tdap 03/14/2014 [employer] SKB BOOSTRIX [id number] Intramuscular Left Deltoid 03/14/2014 02/07/2013 115 Influenza 06/22/2015 [employer]. NOV Fluvirin [id number] Intramuscular Left Deltoid 06/23/2015 05/08/2015 140 History [...] Left shoulder pain Nov 03 2015 8:47AM Payers Insurance Name Company Name Plan Name Plan Number Policy Number Policy Group Number Start Date BCBS [employer] [place] [id number] September [facility] Financial Assistance [facility] Financial Alex 40 percent clinic October [employer]BS [employer] [place] [id number] Tuesday, August 30, 2011 BCBS [employer] [place] [id number] November State Self Insurance Fund *INVALID State Self Insurance [id number] N /A State Self Insurance Fund *INVALID State Self Insurance [id number] N /A BCBS [employer] [place] [id number] July History of Encounters Visit Date Visit Type Provider 11/03/2015 Office visit Sean Marie MD 10/09/2015 Office visit 10/09/2015 Office visit Sean Marie MD 08/31/2015 Office visit Sean Marie MD 08/25/2015 Office visit Sean Marie MD 06/05/2015 Office visit Sean Marie MD 05/07/2015 Office visit Amaris Gnetile [employer] CONSULTANT 05/06/2015 Office visit Kiarra Ramos [employer] CONSULTANT 04/01/2015 Office visit 04/01/2015 Office visit Sean Marie MD 04/01/2015 [facility] Michelle Greco MD 03/26/2015 Office visit Sean Marie MD 03/19/2015 Office visit Sean Marie MD 02/13/2015 Office visit Sean Marie MD 01/26/2015 Office visit Leena Haddad [employer] CONSULTANT 01/12/2015 Office visit Sean Marie MD 11/24/2014 Office visit Kiarra Ramos [employer] CONSULTANT 10/22/2014 Office visit Miguel A Munoz [employer] CONSULTANT 08/22/2014 Office visit Sean Marie MD 08/01/2014 Office visit Sean Marie MD 06/09/2014 Office visit Kiarra Ramos [employer] CONSULTANT 03/14/2014 Office visit Leena Haddad [employer] CONSULTANT 02/27/2014 Office visit Leena Haddad [employer] CONSULTANT 12/02/2013 Office visit Sean Marie MD 11/25/2013 Office visit Sean Marie MD 11/14/2013 Office visit Kiarra Ramos [employer] CONSULTANT 08/21/2013 Office visit Leena Dunn Boo [employer] CONSULTANT 08/09/2013 Office visit Kiarra Ramos [employer] 365 CONSULTANT 06/26/2013 [facility] Michelle Greco MD 06/26/2013 Office visit Sean Marie MD 06/21/2013 Office visit Kiarra Ramos [employer] CONSULTANT 05/31/2013 Office visit Leena Haddad [employer] CONSULTANT 05/10/2013 Office visit Leena Dunn Obo [employer] CONSULTANT 05/03/2013 Office visit Leena Hadadd [employer] CONSULTANT 03/27/2013 Office visit Kiarra Ramos [employer] CONSULTANT 03/05/2013 Office visit Kiarra Ramos [employer] CONSULTANT 02/27/2013 Office visit Kiarra Ramos [employer] CONSULTANT 01/08/2013 Office visit Sean Marie MD 10/30/2012 Office visit Sean Marie MD 04/26/2012 Nurse visit Maria Antonia Barakat [employer] CONSULTANT 02/07/2012 Office visit Sean Marie MD 02/07/2012 Hospital Michelle Greco MD 12/13/2011 Office visit Sean Marie MD 11/08/2011 Office visit Sean Marie MD 10/24/2011 Office visit Sean Marie MD 08/05/2011 Office visit Sean Marie MD 07/12/2011 Office visit Kiarra Ramos [employer] CONSULTANT 05/11/2011 Office visit Sean Marie MD 04/19/2011 [...]
--- OUTSIDE RECORDS SUMMARY | 2018-07-18 13:10 | XMS REPORT ---
Author Author Sean Marie [facility] Address [address] [place], [place] [id number] Care Team Providers Care Business Initiatives Manager Name Role Phone Sean Marie PCP Unavailable [...] TABLET BY MOUTH EVERY DAY AT BEDTIME [place] Thyroid 60 mg oral tablet 04/07/2014 TAKE ONE TABLET BY MOUTH ONCE DAILY lovastatin 40 mg oral tablet 06/12/2014 take 1 tablet by oral route daily [place] Thyroid 60 mg oral tablet 08/04/2014 TAKE [...] TABLET BY MOUTH ONCE DAILY AT BEDTIME [place] Thyroid 60 mg oral tablet 07/13/2015 TAKE [...] TABLET BY MOUTH ONCE DAILY AT BEDTIME [place] Thyroid 60 mg oral tablet 07/11/2016 TAKE [...] once daily at bedtime for 30 days [place] Thyroid 60 mg oral tablet 12/02/2013 04/01/2014 [...] by oral route once daily at bedtime [place] 5-325 mg oral tablet 08/22/2014 11/24/2014 take [...] Per 1 Mg [facility]# [address]-41 Reviewed 08/25/2015 12:00 AM Depo-Medrol, Per 80 Mg [facility]#[address]-83 Reviewed 08/25/2015 12:00 AM Rocephin 1 gram [facility]#6882-6931-86 Reviewed 10/09/2015 12:00 AM COMPLETE CBC W/AUTO DIFF WBC Reviewed 10/09/2015 12:00 AM COMPREHEN METABOLIC PANEL Reviewed 10/09/2015 12:00 AM GLYCOSYLATED HEMOGLOBIN TEST Reviewed 10/09/2015 12:00 AM ASSAY THYROID STIM HORMONE Reviewed 11/03/2015 8:54 AM URINALYSIS AUTO W/O SCOPE Reviewed 11/03/2015 12:[address] HEAD/BRAIN W/O & W/DYE Reviewed 11/17/2015 12:00 AM Rocephin 1 gram [facility]#0467-6124-93 Reviewed 08/05/2011 12:00 AM CHEST X-RAY 2VW FRONTAL&LATL Reviewed 12/09/2015 12:00 AM THER/PROPH/DIAG INJ SC/IM Reviewed 12/09/2015 12:00 AM Rocephin 1 gram [facility]#9052-6055-34 Reviewed 11/08/2011 12:00 AM Decadron Inj. per 1mg-[facility] [id number] Reviewed 11/08/2011 12:00 AM Depo-Medrol 80 Mg [facility] [id number] Reviewed 05/20/2016 12:00 AM COMPLETE CBC W/AUTO [...] Per 1 Mg [facility]# [address]-91 Reviewed 10/30/2012 12:00 AM COMPLETE CBC W/AUTO DIFF WBC Reviewed 10/30/2012 12:00 AM COMPREHEN METABOLIC PANEL Reviewed 10/30/2012 12:00 AM LIPID PANEL Reviewed 10/30/2012 12:00 AM ASSAY THYROID STIM HORMONE Reviewed 01/08/2013 12:00 AM Depo-Medrol 80 Mg Im/C'pancho Reviewed 01/08/2013 12:00 AM Decadron, Per 1 Mg [facility]# [address]-50 Reviewed 01/08/2013 12:00 AM Rocephin 1 gram [facility]#2039-7483-09 Reviewed 01/08/2013 12:00 AM COMPREHEN METABOLIC PANEL Reviewed 01/08/2013 12:00 AM GLYCOSYLATED HEMOGLOBIN TEST Reviewed 01/08/2013 12:00 AM ASSAY THYROID STIM HORMONE Reviewed 01/08/2013 12:00 AM ASSAY OF PARATHORMONE Reviewed 01/08/2013 12:00 AM LIPID PANEL Reviewed 02/27/2013 12:00 AM THER/PROPH/DIAG INJ SC/IM Reviewed 02/27/2013 12:00 AM Decadron, Per 1 Mg [facility]# [address]-31 Reviewed 02/27/2013 12:00 AM Depo-Medrol, Per 80 Mg [facility]#4862-9720-59 Reviewed 03/04/2013 12:00 AM MAMMOGRAM SCREENING Reviewed 03/05/2013 12:00 AM CYTOPATH TBS C/V MANUAL Reviewed 03/05/2013 12:00 AM MAMMOGRAM BOTH BREASTS Reviewed 03/27/2013 12:00 AM THER/PROPH/DIAG INJ SC/IM Reviewed 03/27/2013 12:00 AM Bicillin CR, 1.2 million units [facility]# 11668-902-73 Reviewed 05/10/2013 12:00 AM X-RAY EXAM KNEE [...] Per 1 Mg [facility]# [address]-25 Reviewed 08/09/2013 12:00 AM Depo-Medrol, Per 80 Mg [facility]#2536-6354-02 Reviewed 08/21/2013 12:00 AM X-RAY EXAM OF [...] AM Rocephin 1 gram [facility]#3111-2390-84 Reviewed 04/01/2015 12:00 AM COMPLETE CBC W/AUTO DIFF WBC Reviewed 04/01/2015 12:00 AM COMPREHEN METABOLIC PANEL Reviewed 04/01/2015 12:00 AM ASSAY THYROID STIM HORMONE Reviewed 04/01/2015 12:00 AM CHEST X-RAY 2VW FRONTAL&LATL Reviewed 05/07/2015 12:00 AM THER/PROPH/DIAG INJ SC/IM Reviewed 05/07/2015 12:00 AM Decadron injection Reviewed 05/07/2015 12:00 AM Depo-Medrol 40mg Reviewed 05/11/2011 12:00 AM Depo-Medrol 80 Mg [facility] [id number] Reviewed 05/11/2011 12:00 AM Decadron Inj. per 1mg-[facility] [id number] Reviewed Results Summary Date and Description Results [...] Vis Given Vis Pub CVX Tdap 04/26/2012 [employer] [facility] ADACEL [id number] Intramuscular Left Arm 04/26/2012 08/19/2008 115 Tdap 03/14/2014 [employer] [facility] BOOSTRIX [id number] Intramuscular Left Deltoid 03/14/2014 02/07/2013 115 Influenza 06/22/2015 [employer]. NOV Fluvirin [id number] Intramuscular Left Deltoid 06/23/2015 05/08/2015 140 Pneumococcal [...] Start Date [employer] [place] [id number] September [facility] Financial Assistance [facility] Financial Alex 40 percent clinic October [employer] [place] [id number] Friday, October 02, 2009 [employer] [place] [id number] November [employer] Self [employer] Fund *INVALID State Self Insurance [id number] N/A [employer] Self [employer] Fund *INVALID State Self Insurance [id number] N/A [employer] [place] [id number] July History of Encounters Visit Date Visit Type Provider 03/20/2017 Office visit Sean Marie MD 03/03/2017 Office visit Aurora Martin PROFESSOR OF FORESTRY 01/09/2017 Office visit Sean Marie MD 01/02/2017 [...] Marie MD 01/16/2016 Office visit Jania Stanley PROFESSOR OF FORESTRY 01/07/2016 Hospital Michelle Greco MD 12/31/2015 Office visit Sean Marie MD 12/09/2015 Office visit Miguel A Munoz PROFESSOR OF FORESTRY 11/17/2015 Office visit Sean Marie MD 11/03/2015 Office visit Sean Marie MD 10/09/2015 Office visit 10/09/2015 Office visit Sean Marie MD 08/31/2015 Office visit Sean Marie MD 08/25/2015 Office visit Sean Marie MD 06/05/2015 Office visit Sean Marie MD 05/07/2015 Office visit Amaris Gentile PROFESSOR OF FORESTRY 05/06/2015 Office visit Kiarra Ramos PROFESSOR OF FORESTRY 04/01/2015 Office visit 04/01/2015 Office visit Sean Marie MD 04/01/2015 Hospital Michelle Greco MD 03/26/2015 Office visit Sean Marie MD 03/19/2015 Office visit Sean Marie MD 02/13/2015 Office visit Sean Marie MD 01/26/2015 Office visit Leena Haddad PROFESSOR OF FORESTRY 01/12/2015 Office visit Sean Marie MD 11/24/2014 Office visit Kiarra Ramos PROFESSOR OF FORESTRY 10/22/2014 Office visit Miguel A Munoz PROFESSOR OF FORESTRY 08/22/2014 Office visit Sean Marie MD 08/01/2014 Office visit Sean Marie MD 06/09/2014 Office visit Kiarra Ramos PROFESSOR OF FORESTRY 03/14/2014 Office visit Leena Haddad PROFESSOR OF FORESTRY 02/27/2014 Office visit Leena Haddad PROFESSOR OF FORESTRY 12/02/2013 Office visit Sean Marie MD 11/25/2013 Office visit Sean Marie MD 11/14/2013 Office visit Kiarra Richard PROFESSOR OF FORESTRY 08/21/2013 Office visit Leena Haddad PROFESSOR OF FORESTRY 08/09/2013 Office visit Kiarra Ramos PROFESSOR OF FORESTRY 06/26/2013 Hospital Michelle Greco MD 06/26/2013 Office visit Sean Marie MD 06/21/2013 Office visit Kiarra Ramos PROFESSOR OF FORESTRY 05/31/2013 Office visit Leenaluis miguel Haddad PROFESSOR OF FORESTRY 05/10/2013 Office visit Leena RodriguezEd Boo PROFESSOR OF FORESTRY 05/03/2013 Office visit Leena N. Boo PROFESSOR OF FORESTRY 03/27/2013 Office visit Kiarra Ramos PROFESSOR OF FORESTRY 03/05/2013 Office visit Kiarra Ramos PROFESSOR OF FORESTRY 02/27/2013 Office visit Kiarra Ramos PROFESSOR OF FORESTRY 01/08/2013 Office visit Sean Marie MD 10/30/2012 Office visit Sean Marie MD 04/26/2012 Nurse visit Maria Antonia Barakat PROFESSOR OF FORESTRY 02/07/2012 Office visit Sean Marie MD 02/07/2012 [facility] Michelle Greco MD 12/13/2011 Office visit Sean Marie MD 11/08/2011 Office visit Sean Marie MD 10/24/2011 Office visit Sean Marie MD 08/05/2011 Office visit Sean Marie MD 07/12/2011 Office visit Kiarra Ramos PROFESSOR OF FORESTRY 05/11/2011 Office visit Sean Marie MD 04/19/2011 [...]
--- OUTSIDE RECORDS SUMMARY | 2018-07-18 13:12 | XMS REPORT ---
Author Author Sean Marie [facility] Address [address] [place], [place] [id number] Care Team Providers Care Public [employer] Teacher Name Role Phone Sean Marie PCP Unavailable Sean Marie PreferredProvider Unavailable Allergies and Adverse Reactions Name Reaction Notes Albuterol tachycardia increases heart rate too much Percocet "head crawling" Adhesive Tape Plan of Treatment Planned Activity Comments Planned Date Planned Time Plan/Goal CBC With Auto Differential 12/27/2016 12:00 AM CMP 12/27/2016 12:00 AM Thyroid stimulating hormone (TSH) 12/27/2016 12:00 AM CBC With Auto Differential 01/08/2013 12:00 AM EKG (12-lead electrocardiogram) 06/26/2013 12:00 AM EKG (12-lead electrocardiogram) 04/01/2015 12:00 AM Medications Active Name Start Date Estimated Completion Date SIG Comments aspirin 81 mg oral tablet,delayed release (DR/EC) take 1 tablet (81 mg) by oral route once daily pravastatin 20 mg oral tablet 02/03/2014 TAKE ONE TABLET BY MOUTH EVERY DAY AT BEDTIME [place] Thyroid 60 mg oral tablet 04/07/2014 TAKE ONE TABLET BY MOUTH ONCE DAILY lovastatin 40 mg oral tablet 06/12/2014 take 1 tablet by oral route daily [place] Thyroid 60 mg oral tablet 08/04/2014 TAKE [...] TABLET BY MOUTH ONCE DAILY AT BEDTIME [place] Thyroid 60 mg oral tablet 07/13/2015 TAKE [...] TABLET BY MOUTH ONCE DAILY AT BEDTIME [place] Thyroid 60 mg oral tablet 07/11/2016 TAKE [...] mg) by oral route every 4 hours Prempro 0.3-1.5 mg oral tablet 12/27/2016 take 1 tablet by oral route once daily Name Start [...] once daily at bedtime for 30 days [place] Thyroid 60 mg oral tablet 12/02/2013 04/01/2014 [...] by oral route once daily at bedtime [place] 5-325 mg oral tablet 08/22/2014 11/24/2014 take [...] HC BMI BSA BMI Percentile O2 Sat(%) 12/27/2016 3:11:00 PM 132 mmHg 86 mmHg [...] AM Decadron, Per 1 Mg [facility]# [address]-44 Reviewed 08/25/2015 12:00 AM Depo-Medrol, Per 80 Mg [facility]#[address]-37 Reviewed 08/25/2015 12:00 AM Rocephin 1 gram [facility]#4160-9220-47 Reviewed 10/09/2015 12:00 AM COMPLETE CBC W/AUTO DIFF WBC Reviewed 10/09/2015 12:00 AM COMPREHEN METABOLIC PANEL Reviewed 10/09/2015 12:00 AM GLYCOSYLATED HEMOGLOBIN TEST Reviewed 10/09/2015 12:00 AM ASSAY THYROID STIM HORMONE Reviewed 11/03/2015 8:54 AM URINALYSIS AUTO W/O SCOPE Reviewed 11/03/2015 12:[address] HEAD/BRAIN W/O & W/DYE Reviewed 11/17/2015 12:00 AM Rocephin 1 gram [facility]#2696-5434-27 Reviewed 08/05/2011 12:00 AM CHEST X-RAY 2VW FRONTAL&LATL Reviewed 12/09/2015 12:00 AM THER/PROPH/DIAG INJ SC/IM Reviewed 12/09/2015 12:00 AM Rocephin 1 gram [facility]#1841-1522-97 Reviewed 11/08/2011 12:00 AM Decadron Inj. per 1mg-[facility] [id number] Reviewed 11/08/2011 12:00 AM Depo-Medrol 80 Mg [facility] [id number] Reviewed 05/20/2016 12:00 AM COMPLETE CBC W/AUTO [...] AM Decadron, Per 1 Mg [facility]# [address]-39 Reviewed 10/30/2012 12:00 AM COMPLETE CBC W/AUTO DIFF WBC Reviewed 10/30/2012 12:00 AM COMPREHEN METABOLIC PANEL Reviewed 10/30/2012 12:00 AM LIPID PANEL Reviewed 10/30/2012 12:00 AM ASSAY THYROID STIM HORMONE Reviewed 01/08/2013 12:00 AM Depo-Medrol 80 Mg Im/C'pancho Reviewed 01/08/2013 12:00 AM Decadron, Per 1 Mg [facility]# [address]-18 Reviewed 01/08/2013 12:00 AM Rocephin 1 gram [facility]#1471[address]57[address]-68 Reviewed 01/08/2013 12:00 AM COMPREHEN METABOLIC PANEL Reviewed 01/08/2013 12:00 AM GLYCOSYLATED HEMOGLOBIN TEST Reviewed 01/08/2013 12:00 AM ASSAY THYROID STIM HORMONE Reviewed 01/08/2013 12:00 AM ASSAY OF PARATHORMONE Reviewed 01/08/2013 12:00 AM LIPID PANEL Reviewed 02/27/2013 12:00 AM THER/PROPH/DIAG INJ SC/IM Reviewed 02/27/2013 12:00 AM Decadron, Per 1 Mg [facility]# [address]-78 Reviewed 02/27/2013 12:00 AM Depo-Medrol, Per 80 Mg [facility]#2588-3613-84 Reviewed 03/04/2013 12:00 AM MAMMOGRAM SCREENING Reviewed 03/05/2013 12:00 AM CYTOPATH TBS C/V MANUAL Reviewed 03/05/2013 12:00 AM MAMMOGRAM BOTH BREASTS Reviewed 03/27/2013 12:00 AM THER/PROPH/DIAG INJ SC/IM Reviewed 03/27/2013 12:00 AM Bicillin CR, 1.2 million units [facility]# [address]-541-10 Reviewed 05/10/2013 12:00 AM X-RAY EXAM KNEE [...] AM Decadron, Per 1 Mg [facility]# [address]-60 Reviewed 08/09/2013 12:00 AM Depo-Medrol, Per 80 Mg [facility]#1097-6887-60 Reviewed 08/21/2013 12:00 AM X-RAY EXAM OF [...] 12:00 AM Rocephin 1 gram [facility]#0736-3580-18 Reviewed 04/01/2015 12:00 AM COMPLETE CBC W/AUTO DIFF WBC Reviewed 04/01/2015 12:00 AM COMPREHEN METABOLIC PANEL Reviewed 04/01/2015 12:00 AM ASSAY THYROID STIM HORMONE Reviewed 04/01/2015 12:00 AM CHEST X-RAY 2VW FRONTAL&LATL Reviewed 05/07/2015 12:00 AM THER/PROPH/DIAG INJ SC/IM Reviewed 05/07/2015 12:00 AM Decadron injection Reviewed 05/07/2015 12:00 AM Depo-Medrol 40mg Reviewed 05/11/2011 12:00 AM Depo-Medrol 80 Mg [facility] [id number] Reviewed 05/11/2011 12:00 AM Decadron Inj. per 1mg-[facility] [id number] Reviewed Results Summary Data and Description Results [...] Vis Given Vis Pub CVX Tdap 04/26/2012 [facility] ADACEL [id number] Intramuscular Left Arm 04/26/2012 08/19/2008 115 Tdap 03/14/2014 [facility] BOOSTRIX [id number] Intramuscular Left Deltoid 03/14/2014 02/07/2013 115 Influenza 06/22/2015 [facility]. NOV Fluvirin [id number] Intramuscular Left Deltoid 06/23/2015 05/08/2015 140 Pneumococcal [...] mental state b 2015 8:47AM Bacterial vaginosis Feb 2015 8:47AM Left shoulder pain b 2015 8:47AM Memory loss, short term b [...] 3:12PM Hypothyroidism, Acquired Dec 27 2016 3:12PM Payers Insurance Name Company Name Plan Name Plan Number Policy Number Policy Group Number Start Date [employer] [place] [id number] September [facility] Financial Assistance [facility] Financial Alex 40 percent clinic October [employer] [place] [id number] Friday, October 02, 2009 [employer] [place] [id number] November [employer] Self Insurance Fund *INVALID State Self Insurance [id number] N/A [employer] Self Insurance Fund *INVALID State Self Insurance [id number] N/A [employer] [place] [id number] July History of Encounters Visit Date Visit Type Provider 12/27/2016 Office visit Sean Marie MD 2016 Office visit Sean Marie MD 09/19/2016 Office visit Sean Marie MD 07/01/2016 Office visit Sean Marie MD 06/17/2016 Office visit Sean Marie MD 05/20/2016 Office visit 05/20/2016 Office visit Sean Marie MD 05/16/2016 [facility] Michelle Greco MD 04/01/2016 Office visit Sean Marie MD 02/25/2016 Office visit Sean Marie MD 01/16/2016 Office visit Jania Stanley PLANNER/SCHEDULER 01/07/2016 [facility] MD 12/31/2015 Office visit Sean Marie MD 12/09/2015 Office visit Miguel A Munoz PLANNER/SCHEDULER 11/17/2015 Office visit Sean Marie MD 11/03/2015 Office visit Sean Marie MD 10/09/2015 Office visit 10/09/2015 Office visit Sean Marie MD 08/31/2015 Office visit Sean Marie MD 08/25/2015 Office visit Sean Marie MD 06/05/2015 Office visit Sean Marie MD 05/07/2015 Office visit Amaris Gentile PLANNER/SCHEDULER 05/06/2015 Office visit Kiarra Ramos PLANNER/SCHEDULER 04/01/2015 Office visit 04/01/2015 Office visit Sean Marie MD 04/01/2015 [facility] Greco MD 03/26/2015 Office visit Sean Marie MD 03/19/2015 Office visit Sean Marie MD 02/13/2015 Office visit Sean Marie MD 01/26/2015 Office visit Leena Haddad PLANNER/SCHEDULER 01/12/2015 Office visit Sean Marie MD 11/24/2014 Office visit Kiarra Ramos PLANNER/SCHEDULER 10/22/2014 Office visit Miguel A Munoz PLANNER/SCHEDULER 08/22/2014 Office visit Sean Marie MD 08/01/2014 Office visit Sean Marie MD 06/09/2014 Office visit Kiarra Ramos PLANNER/SCHEDULER 03/14/2014 Office visit Leena Haddad PLANNER/SCHEDULER 02/27/2014 Office visit Leena Haddad PLANNER/SCHEDULER 12/02/2013 Office visit Sean Marie MD 11/25/2013 Office visit Sean Marie MD 11/14/2013 Office visit Kiarra Ramos PLANNER/SCHEDULER 08/21/2013 Office visit Leena Mona Boo PLANNER/SCHEDULER 08/09/2013 Office visit Kiarra Ramos PLANNER/SCHEDULER 06/26/2013 Hospital Michelle Greco MD 06/26/2013 Office visit Sean Marie MD 06/21/2013 Office visit Kiarra Ramos PLANNER/SCHEDULER 05/31/2013 Office visit Leena Mona Boo PLANNER/SCHEDULER 05/10/2013 Office visit Leena Dunn Boo PLANNER/SCHEDULER 05/03/2013 Office visit Leena Haddad PLANNER/SCHEDULER 03/27/2013 Office visit Kiarra Ramos PLANNER/SCHEDULER 03/05/2013 Office visit Kiarra Ramos PLANNER/SCHEDULER 02/27/2013 Office visit Kiarra Ramos PLANNER/SCHEDULER 01/08/2013 Office visit Sean Marie MD 10/30/2012 Office visit Sean Marie MD 04/26/2012 Nurse visit Maria Antonia Barakat PLANNER/SCHEDULER 02/07/2012 Office visit Sean Marie MD 02/07/2012 Hospital Michelle Greco MD 12/13/2011 Office visit Sean Marie MD 11/08/2011 Office visit Sean Marie MD 10/24/2011 Office visit Sean Marie MD 08/05/2011 Office visit Sean Marie MD 07/12/2011 Office visit Kiarra Ramos PLANNER/SCHEDULER 05/11/2011 Office visit Sean Marie MD 04/19/2011 [...]
--- OUTSIDE RECORDS SUMMARY | 2018-07-18 13:15 | XMS REPORT ---
Author Author Sean Marie [facility] Address [address] [place], [place] [id number] Care Team Providers Care Catering Cook Name Role Phone Sean Marie PCP Unavailable [...] TABLET BY MOUTH EVERY DAY AT BEDTIME [place] Thyroid 60 mg oral tablet 04/07/2014 TAKE ONE TABLET BY MOUTH ONCE DAILY lovastatin 40 mg oral tablet 06/12/2014 take 1 tablet by oral route daily [place] Thyroid 60 mg oral tablet 08/04/2014 TAKE [...] TABLET BY MOUTH ONCE DAILY AT BEDTIME [place] Thyroid 60 mg oral tablet 07/13/2015 TAKE [...] TABLET BY MOUTH ONCE DAILY AT BEDTIME [place] Thyroid 60 mg oral tablet 07/11/2016 TAKE [...] (10 mg) by oral route once daily Cymbalta 60 mg oral capsule,delayed release(DR/EC) 2016 [...] mg) by oral route every 4 hours Ambien 10 mg oral tablet 01/04/2017 05/04/2017 [...] once daily at bedtime for 30 days [place] Thyroid 60 mg oral tablet 12/02/2013 04/01/2014 [...] by oral route once daily at bedtime [place] 5-325 mg oral tablet 08/22/2014 11/24/2014 take [...] HC BMI BSA BMI Percentile O2 Sat(%) 01/09/2017 1:43:00 PM 140 mmHg 90 mmHg [...] F 267 lbs 65 in 44.4307 kg/m 2.36 m2 98 % 05/03/2013 11:36:00 AM 131 mmHg 72 mmHg 87 bpm 20 rpm 98.5 F 267 lbs 65 in 44.43 kg/m2 2.3567 m 96 % 03/27/2013 8:08:00 AM 138 mmHg 78 mmHg 76 bpm 18 rpm 98.2 F 262.125 lbs 65 in 43.6194 kg/m 2.34 m2 97 % 03/05/2013 11:10:00 AM 140 mmHg 68 mmHg 70 bpm 18 rpm 98 F 266.125 lbs 65 in 44.29 kg/m2 2.3529 m 02/27/2013 11:02:00 AM 142 mmHg 74 mmHg 74 bpm 18 rpm 98.1 F 267.5 lbs 65 in 44.5139 kg/m 2.36 m2 01/08/2013 10:50:00 AM 142 mmHg [...] Decadron, Per 1 Mg [facility]# [address]-37 Reviewed 08/25/2015 12:00 AM Depo-Medrol, Per 80 Mg [facility]#[address]-32 Reviewed 08/25/2015 12:00 AM Rocephin 1 gram [facility]#2075-3882-45 Reviewed 10/09/2015 12:00 AM COMPLETE CBC W/AUTO DIFF WBC Reviewed 10/09/2015 12:00 AM COMPREHEN METABOLIC PANEL Reviewed 10/09/2015 12:00 AM GLYCOSYLATED HEMOGLOBIN TEST Reviewed 10/09/2015 12:00 AM ASSAY THYROID STIM HORMONE Reviewed 11/03/2015 8:54 AM URINALYSIS AUTO W/O SCOPE Reviewed 11/03/2015 12:[address] HEAD/BRAIN W/O & W/DYE Reviewed 11/17/2015 12:00 AM Rocephin 1 gram [facility]#4402-6615-75 Reviewed 08/05/2011 12:00 AM CHEST X-RAY 2VW FRONTAL&LATL Reviewed 12/09/2015 12:00 AM THER/PROPH/DIAG INJ SC/IM Reviewed 12/09/2015 12:00 AM Rocephin 1 gram [facility]#1711-9364-44 Reviewed 11/08/2011 12:00 AM Decadron Inj. per 1mg-[facility] [id number] Reviewed 11/08/2011 12:00 AM Depo-Medrol 80 Mg [facility] [id number] Reviewed 05/20/2016 12:00 AM COMPLETE CBC W/AUTO [...] Decadron, Per 1 Mg [facility]# [address]-03 Reviewed 10/30/2012 12:00 AM COMPLETE CBC W/AUTO DIFF WBC Reviewed 10/30/2012 12:00 AM COMPREHEN METABOLIC PANEL Reviewed 10/30/2012 12:00 AM LIPID PANEL Reviewed 10/30/2012 12:00 AM ASSAY THYROID STIM HORMONE Reviewed 01/08/2013 12:00 AM Depo-Medrol 80 Mg Im/C'pancho Reviewed 01/08/2013 12:00 AM Decadron, Per 1 Mg [facility]# [address]-66 Reviewed 01/08/2013 12:00 AM Rocephin 1 gram [facility]#1440-3820-73 Reviewed 01/08/2013 12:00 AM COMPREHEN METABOLIC PANEL Reviewed 01/08/2013 12:00 AM GLYCOSYLATED HEMOGLOBIN TEST Reviewed 01/08/2013 12:00 AM ASSAY THYROID STIM HORMONE Reviewed 01/08/2013 12:00 AM ASSAY OF PARATHORMONE Reviewed 01/08/2013 12:00 AM LIPID PANEL Reviewed 02/27/2013 12:00 AM THER/PROPH/DIAG INJ SC/IM Reviewed 02/27/2013 12:00 AM Decadron, Per 1 Mg [facility]# [address]-85 Reviewed 02/27/2013 12:00 AM Depo-Medrol, Per 80 Mg [facility]#2608-7572-71 Reviewed 03/04/2013 12:00 AM MAMMOGRAM SCREENING Reviewed 03/05/2013 12:00 AM CYTOPATH TBS C/V MANUAL Reviewed 03/05/2013 12:00 AM MAMMOGRAM BOTH BREASTS Reviewed 03/27/2013 12:00 AM THER/PROPH/DIAG INJ SC/IM Reviewed 03/27/2013 12:00 AM Bicillin CR, 1.2 million units [facility]# 48050-414-33 Reviewed 05/10/2013 12:00 AM X-RAY EXAM KNEE [...] Decadron, Per 1 Mg [facility]# [address]-19 Reviewed 08/09/2013 12:00 AM Depo-Medrol, Per 80 Mg [facility]#7349-5841-08 Reviewed 08/21/2013 12:00 AM X-RAY EXAM OF [...] AM Rocephin 1 gram [facility]#2002-1265-06 Reviewed 04/01/2015 12:00 AM COMPLETE CBC W/AUTO DIFF WBC Reviewed 04/01/2015 12:00 AM COMPREHEN METABOLIC PANEL Reviewed 04/01/2015 12:00 AM ASSAY THYROID STIM HORMONE Reviewed 04/01/2015 12:00 AM CHEST X-RAY 2VW FRONTAL&LATL Reviewed 05/07/2015 12:00 AM THER/PROPH/DIAG INJ SC/IM Reviewed 05/07/2015 12:00 AM Decadron injection Reviewed 05/07/2015 12:00 AM Depo-Medrol 40mg Reviewed 05/11/2011 12:00 AM Depo-Medrol 80 Mg [facility] [id number] Reviewed 05/11/2011 12:00 AM Decadron Inj. per 1mg-[facility] [id number] Reviewed Results Summary Data and Description Results [...] Vis Given Vis Pub CVX Tdap 04/26/2012 GlaxOrdoro SKB ADACEL [id number] Intramuscular Left Arm 04/26/2012 08/19/2008 115 Tdap 03/14/2014 OneCard SKB BOOSTRIX [id number] Intramuscular Left Deltoid 03/14/2014 02/07/2013 115 Influenza 06/22/2015 [facility]. NOV Fluvirin [id number] Intramuscular Left Deltoid 06/23/2015 05/08/2015 140 Pneumococcal [...] 1:41PM Chest pain Jan 09 2017 1:49PM Payers Insurance Name Company Name Plan Name Plan Number Policy Number Policy Group Number Start Date [facility] [id number] September [employer] Financial Assistance [facility] Financial Alex 40 percent clinic October [facility] [id number] Friday, October 02, 2009 [facility] [id number] November [employer] Self Insurance Fund *INVALID State Self Insurance [id number] N/A [employer] Self Insurance Fund *INVALID State Self Insurance [id number] N/A BCBS [employer] [place] [id number] July History of Encounters Visit Date Visit Type Provider 01/09/2017 Office visit Sean Marie MD 01/02/2017 Office visit Sean Marie MD 12/27/2016 Office visit Sean Marie MD 2016 Office visit Sean Marie MD 09/19/2016 Office visit Sean Marie MD 07/01/2016 Office visit Sean Marie MD 06/17/2016 Office visit Sean Marie MD 05/20/2016 Office visit 05/20/2016 Office visit Sean Marei MD 05/16/2016 Hospital Michelle Greco MD 04/01/2016 Office visit Sean Marie MD 02/25/2016 Office visit Sean Marie MD 01/16/2016 Office visit Jania Stanley BOOKKEEPING ASSISTANT 01/07/2016 [facility] Michelle Greco MD 12/31/2015 Office visit Sean Marie MD 12/09/2015 Office visit Miguel A Munoz BOOKKEEPING ASSISTANT 11/17/2015 Office visit Sean Marie MD 11/03/2015 Office visit Sean Marie MD 10/09/2015 Office visit 10/09/2015 Office visit Sean Marie MD 08/31/2015 Office visit Sean Marie MD 08/25/2015 Office visit Sean Marie MD 06/05/2015 Office visit Sean Marie MD 05/07/2015 Office visit Amaris Gentile BOOKKEEPING ASSISTANT 05/06/2015 Office visit Kiarra Ramos BOOKKEEPING ASSISTANT 04/01/2015 Office visit 04/01/2015 Office visit Sean Marie MD 04/01/2015 [facility] Michelle Greco MD 03/26/2015 Office visit Sean Marie MD 03/19/2015 Office visit Sean Marie MD 02/13/2015 Office visit Sean Marie MD 01/26/2015 Office visit Leena Haddad BOOKKEEPING ASSISTANT 01/12/2015 Office visit Sean Marie MD 11/24/2014 Office visit Kiarra Ramos BOOKKEEPING ASSISTANT 10/22/2014 Office visit Miguel A Munoz BOOKKEEPING ASSISTANT 08/22/2014 Office visit Sean Marie MD 08/01/2014 Office visit Sean Marie MD 06/09/2014 Office visit Kiarra Ramos BOOKKEEPING ASSISTANT 03/14/2014 Office visit Leena Dunn Boo BOOKKEEPING ASSISTANT 02/27/2014 Office visit Leena Haddad BOOKKEEPING ASSISTANT 12/02/2013 Office visit Sean Marie MD 11/25/2013 Office visit Sean Marie MD 11/14/2013 Office visit Kiarra Ramos BOOKKEEPING ASSISTANT 08/21/2013 Office visit Leena Dunn Boo BOOKKEEPING ASSISTANT 08/09/2013 Office visit Kiarra Richard BOOKKEEPING ASSISTANT 06/26/2013 [facility] Michelle Greco MD 06/26/2013 Office visit Sean Marie MD 06/21/2013 Office visit Kiarra Ramos BOOKKEEPING ASSISTANT 05/31/2013 Office visit Leena Dunn Boo BOOKKEEPING ASSISTANT 05/10/2013 Office visit Leena Haddad BOOKKEEPING ASSISTANT 05/03/2013 Office visit Leena Haddad BOOKKEEPING ASSISTANT 03/27/2013 Office visit Kiarra Ramos BOOKKEEPING ASSISTANT 03/05/2013 Office visit Kiarra Ramos BOOKKEEPING ASSISTANT 02/27/2013 Office visit Kiarra Ramos BOOKKEEPING ASSISTANT 01/08/2013 Office visit Sean Marie MD 10/30/2012 Office visit Sean Marie MD 04/26/2012 Nurse visit Maria Antonia Barakat BOOKKEEPING ASSISTANT 02/07/2012 Office visit Sean Marie MD 02/07/2012 [facility] Michelle Greco MD 12/13/2011 Office visit Sean Marie MD 11/08/2011 Office visit Sean Marie MD 10/24/2011 Office visit Sean Marie MD 08/05/2011 Office visit Sean Marie MD 07/12/2011 Office visit Kiarra Ramos BOOKKEEPING ASSISTANT 05/11/2011 Office visit Sean Marie MD 04/19/2011 [...]
--- OUTSIDE RECORDS SUMMARY | 2018-07-18 13:18 | XMS REPORT ---
Author Author Sean Marie [facility] Address [address] [place], [place] [address] Care Team Providers Care Waffle Machine Operator Name Role Phone Sean Marie [...] TABLET BY MOUTH EVERY DAY AT BEDTIME [place] Thyroid 60 mg oral tablet 04/07/2014 TAKE ONE TABLET BY MOUTH ONCE DAILY lovastatin 40 mg oral tablet 06/12/2014 take 1 tablet by oral route daily [place] Thyroid 60 mg oral tablet 08/04/2014 TAKE [...] TABLET BY MOUTH ONCE DAILY AT BEDTIME [place] Thyroid 60 mg oral tablet 07/13/2015 TAKE [...] TABLET BY MOUTH ONCE DAILY AT BEDTIME [place] Thyroid 60 mg oral tablet 07/11/2016 TAKE ONE TABLET BY MOUTH ONCE DAILY lovastatin 40 mg oral tablet 08/08/2016 TAKE ONE TABLET BY MOUTH ONCE DAILY AT BEDTIME Toviaz 8 mg oral tablet extended release 24 hr 09/05/2016 TAKE ONE TABLET BY MOUTH ONCE DAILY Abilify 5 mg oral tablet 09/19/2016 TAKE ONE TABLET BY MOUTH ONCE DAILY [...] mcg) by inhalation route every 6 hours Name Start Date [...] once daily at bedtime for 30 days [place] Thyroid 60 mg oral tablet 12/02/2013 04/01/2014 [...] by oral route once daily at bedtime [place] 5-325 mg oral tablet 08/22/2014 11/24/2014 take [...] HC BMI BSA BMI Percentile O2 Sat(%) 09/19/2016 10:12:00 AM 140 mmHg 74 mmHg [...] Per 1 Mg [facility]# [address]-17 Reviewed 08/25/2015 12:00 AM Depo-Medrol, Per 80 Mg [facility]#[address]-13 Reviewed 08/25/2015 12:00 AM Rocephin 1 gram [facility]#9420-4492-10 Reviewed 10/09/2015 12:00 AM COMPLETE CBC W/AUTO DIFF WBC Reviewed 10/09/2015 12:00 AM COMPREHEN METABOLIC PANEL Reviewed 10/09/2015 12:00 AM GLYCOSYLATED HEMOGLOBIN TEST Reviewed 10/09/2015 12:00 AM ASSAY THYROID STIM HORMONE Reviewed 11/03/2015 8:54 AM URINALYSIS AUTO W/O SCOPE Reviewed 11/03/2015 12:[address] HEAD/BRAIN W/O & W/DYE Reviewed 11/17/2015 12:00 AM Rocephin 1 gram [facility]#3891-0802-97 Reviewed 08/05/2011 12:00 AM CHEST X-RAY 2VW FRONTAL&LATL Reviewed 12/09/2015 12:00 AM THER/PROPH/DIAG INJ SC/IM Reviewed 12/09/2015 12:00 AM Rocephin 1 gram [facility]#3787-0181-70 Reviewed 11/08/2011 12:00 AM Decadron Inj. per 1mg-[facility] [id number] Reviewed 11/08/2011 12:00 AM Depo-Medrol 80 Mg [facility] [id number] Reviewed 05/20/2016 12:00 AM COMPLETE CBC W/AUTO [...] Per 1 Mg [facility]# [address]-83 Reviewed 10/30/2012 12:00 AM COMPLETE CBC W/AUTO DIFF WBC Reviewed 10/30/2012 12:00 AM COMPREHEN METABOLIC PANEL Reviewed 10/30/2012 12:00 AM LIPID PANEL Reviewed 10/30/2012 12:00 AM ASSAY THYROID STIM HORMONE Reviewed 01/08/2013 12:00 AM Depo-Medrol 80 Mg Im/C'pancho Reviewed 01/08/2013 12:00 AM Decadron, Per 1 Mg [facility]# [address]-64 Reviewed 01/08/2013 12:00 AM Rocephin 1 gram [facility]#8135-1842-86 Reviewed 01/08/2013 12:00 AM COMPREHEN METABOLIC PANEL Reviewed 01/08/2013 12:00 AM GLYCOSYLATED HEMOGLOBIN TEST Reviewed 01/08/2013 12:00 AM ASSAY THYROID STIM HORMONE Reviewed 01/08/2013 12:00 AM ASSAY OF PARATHORMONE Reviewed 01/08/2013 12:00 AM LIPID PANEL Reviewed 02/27/2013 12:00 AM THER/PROPH/DIAG INJ SC/IM Reviewed 02/27/2013 12:00 AM Decadron, Per 1 Mg [facility]# [address]-95 Reviewed 02/27/2013 12:00 AM Depo-Medrol, Per 80 Mg [facility]#3721-2209-89 Reviewed 03/04/2013 12:00 AM MAMMOGRAM SCREENING Reviewed 03/05/2013 12:00 AM CYTOPATH TBS C/V MANUAL Reviewed 03/05/2013 12:00 AM MAMMOGRAM BOTH BREASTS Reviewed 03/27/2013 12:00 AM THER/PROPH/DIAG INJ SC/IM Reviewed 03/27/2013 12:00 AM Bicillin CR, 1.2 million units [facility]# 19794-776-08 Reviewed 05/10/2013 12:00 AM X-RAY EXAM KNEE [...] Per 1 Mg [facility]# [address]-57 Reviewed 08/09/2013 12:00 AM Depo-Medrol, Per 80 Mg [facility]#6963-2963-70 Reviewed 08/21/2013 12:00 AM X-RAY EXAM OF [...] AM Rocephin 1 gram [facility]#5535-3742-18 Reviewed 04/01/2015 12:00 AM COMPLETE CBC W/AUTO DIFF WBC Reviewed 04/01/2015 12:00 AM COMPREHEN METABOLIC PANEL Reviewed 04/01/2015 12:00 AM ASSAY THYROID STIM HORMONE Reviewed 04/01/2015 12:00 AM CHEST X-RAY 2VW FRONTAL&LATL Reviewed 05/07/2015 12:00 AM THER/PROPH/DIAG INJ SC/IM Reviewed 05/07/2015 12:00 AM Decadron injection Reviewed 05/07/2015 12:00 AM Depo-Medrol 40mg Reviewed 05/11/2011 12:00 AM Depo-Medrol 80 Mg [facility] [id number] Reviewed 05/11/2011 12:00 AM Decadron Inj. per 1mg-[facility] [id number] Reviewed Results Summary Data and Description Results [...] 13.40 g/dLHCT 41.50 %MCV 85.0 fLMCH 27.50 pgHC 32.30 g/dLRDW SD 44 RDW CV 14.30 [...] Vis Given Vis Pub CVX Tdap 04/26/2012 GlaxDiabetes [place] SKB ADACEL [id number] Intramuscular Left Arm 04/26/2012 08/19/2008 115 Tdap 03/14/2014 GlaxDiabetes [place] SKB BOOSTRIX [id number] Intramuscular Left Deltoid 03/14/2014 02/07/2013 115 Influenza 06/22/2015 [email or web address]. NOV Fluvirin [id number] Intramuscular Left Deltoid 06/23/2015 05/08/2015 140 History [...] opioids, initial encounter Sep 19 2016 10:18AM Payers Insurance Name Company Name Plan Name Plan Number Policy Number Policy Group Number Start Date [employer] [place] [id number] September [employer] Financial Assistance [facility] Financial Alex 40 percent clinic October [employer] [place] [id number] Friday, October 02, 2009 [employer] [place] [id number] November [employer] Self Insurance Fund *INVALID State Self Insurance [id number] N/A [facility] Self Insurance Fund *INVALID State Self Insurance [id number] N/A [employer] [place] [id number] July History of Encounters Visit Date Visit Type Provider 09/19/2016 Office visit Sean Marie MD 07/01/2016 Office visit Sean Marie MD 06/17/2016 Office visit Sean Marie MD 05/20/2016 Office visit 05/20/2016 Office visit Sean Marie MD 05/16/2016 [facility] Greco MD 04/01/2016 Office visit Sean Marie MD 02/25/2016 Office visit Sean Marie MD 01/16/2016 Office visit Jania Stanley APRN 01/07/2016 [facility] MD 12/31/2015 Office visit Sean Marie MD 12/09/2015 Office visit Miguel A Munoz BISCUIT MAKER 11/17/2015 Office visit Sean Marie MD 11/03/2015 Office visit Sean Marie MD 10/09/2015 Office visit 10/09/2015 Office visit Sean Marie MD 08/31/2015 Office visit Sean Marie MD 08/25/2015 Office visit Sean Marie MD 06/05/2015 Office visit Sean Marie MD 05/07/2015 Office visit Amaris Gentile BISCUIT MAKER 05/06/2015 Office visit Kiarra Ramos BISCUIT MAKER 04/01/2015 Office visit 04/01/2015 Office visit Sean Marie MD 04/01/2015 [facility] Greco MD 03/26/2015 Office visit Sean Marie MD 03/19/2015 Office visit Sean Marie MD 02/13/2015 Office visit Sean Marie MD 01/26/2015 Office visit Leena Haddad BISCUIT MAKER 01/12/2015 Office visit Sean Marie MD 11/24/2014 Office visit Kiarra Ramos BISCUIT MAKER 10/22/2014 Office visit Miguel A Munoz BISCUIT MAKER 08/22/2014 Office visit Sean Marie MD 08/01/2014 Office visit Sean Marie MD 06/09/2014 Office visit Kiarra Ramos BISCUIT MAKER 03/14/2014 Office visit Leena Haddad BISCUIT MAKER 02/27/2014 Office visit Leena Haddad BISCUIT MAKER 12/02/2013 Office visit Sean Marie MD 11/25/2013 Office visit Sean Marie MD 11/14/2013 Office visit Kairra Ramos BISCUIT MAKER 08/21/2013 Office visit Leena Haddad BISCUIT MAKER 08/09/2013 Office visit Kiarra Ramos BISCUIT MAKER 06/26/2013 [facility] Michelle Greco MD 06/26/2013 Office visit Sean Marie MD 06/21/2013 Office visit Kiarra Ramos BISCUIT MAKER 05/31/2013 Office visit Leena Haddad BISCUIT MAKER 05/10/2013 Office visit Lenea Haddad BISCUIT MAKER 05/03/2013 Office visit Leena Haddad BISCUIT MAKER 03/27/2013 Office visit Kiarra Ramos BISCUIT MAKER 03/05/2013 Office visit Kiarra Ramos BISCUIT MAKER 02/27/2013 Office visit Kiarra Ramos BISCUIT MAKER 01/08/2013 Office visit Sean Marie MD 10/30/2012 Office visit Sean Marie MD 04/26/2012 Nurse visit Maria Antonia Barakat APRN 02/07/2012 Office visit Sean Marie MD 02/07/2012 [facility] Marcela Greco MD 12/13/2011 Office visit Sean Marie MD 11/08/2011 Office visit Sean Marie MD 10/24/2011 Office visit Sean Marie MD 08/05/2011 Office visit Sean Marie MD 07/12/2011 Office visit Kiarra Ramos BISCUIT MAKER 05/11/2011 Office visit Sean Marie MD 04/19/2011 [...]
--- OUTSIDE RECORDS SUMMARY | 2018-07-18 13:19 | XMS REPORT ---
Author Author Sean Marie [facility] Address [address] [place], [place] [address] Care Team Providers Care Community Arts Worker Name Role Phone Sean Marie PCP Unavailable [...] TABLET BY MOUTH EVERY DAY AT BEDTIME [place] Thyroid oral tablet 60 mg 04/07/2014 TAKE ONE TABLET BY MOUTH ONCE DAILY Zofran ODT oral lovastatin oral tablet 40 mg 06/12/2014 take 1 tablet by oral route daily [place] Thyroid oral tablet 60 mg 08/04/2014 TAKE ONE TABLET BY MOUTH ONCE DAILY trazodone Oral tablet 150 mg 08/11/2014 11/04/2015 TAKE ONE TABLET BY MOUTH EVERY DAY AT BEDTIME Requip oral tablet 2 mg 08/11/2014 08/06/2015 take 1 tablet by mouth at bedtime. for 90 days Zantac oral tablet 150 mg 08/11/2014 08/06/2015 take 1 tablet (150 mg) by oral route 2 times per day for 90 days Xanax oral tablet 0.25 mg may take [...] 37.5 mg take 1 tablet in morning Name Start Date Expiration Date SIG Comments [...] once daily at bedtime for 30 days [place] Thyroid oral tablet 60 mg 12/02/2013 04/01/2014 take 1 tablet by oral route daily for 30 days Naprosyn oral tablet 500 mg 08/01/2014 08/31/2014 take 1 tablet (500 mg) by oral route 2 times per day with food for 30 days Toviaz oral tablet extended release 24 hr 8 mg 09/29/2014 10/29/2014 take 1 tablet (8 mg) by oral route once daily for 30 days Keflex oral capsule 500 [...] per day Alen BATRES Cough & Chest Oral Liquid 10-200 mg/5 [...] per day with food for 30 days Dulera Inhalation HFA Aerosol Inhaler 200-5 mcg/actuation 08/11/20142014 inhale 2 puffs by inhalation route 2 times a day [place] oral tablet 5-325 mg 08/22/2014 11/24/2014 take 1 tablet by oral route every 6 hours as needed for pain Problem List Description Status Onset Hypothyroidism, Acquired Active Allergic rhinitis; due to other allergen Active Chronic Obstructive Pulmonary Disease Active 10/24/2011 Osteoarthritis Active 11/14/2013 Hyperlipidemia, unspecified Active 06/11/2014 Vital Signs Date Time BP-Sys(mm[Hg] BP-Jocelyn(mm[Hg]) HR(bpm) RR(rpm) Temp WT HT HC BMI BSA BMI Percentile O2 Sat(%) 02/13/2015 8:55:00 AM 152 mmHg 84 mmHg [...] 0.40 mg/ dLCALCIUM 9.80 mg/dLeGFR >60 mL/min/1.73 [id number] 250.0 mg/dLCHOLESTEROL 180.0 mg/dLHDL 39.0 mg/dLLDL (CALC) [...] Vis Given Vis Pub CVX Tdap 04/26/2012 GlaxEndoShapeine SKB ADACEL [id number] Intramuscular Left Arm 04/26/2012 08/19/2008 115 Tdap 03/14/2014 GlaxPainting With A Twist SKB BOOSTRIX [id number] Intramuscular Left Deltoid 03/14/2014 [...] 2015 3:24PM Gastroenteritis Feb 13 2015 9:06AM Payers Insurance Name Company Name Plan Name Plan Number Policy Number Policy Group Number Start Date [employer] [place] [id number] September [facility] Financial Assistance [facility] Financial Alex 40 percent clinic October [employer]bs [employer] [place] [id number] Tuesday, August 30, 2011 [employer] [place] [id number] November State Self Insurance Fund *INVALID State Self Insurance [id number] N /A State Self Insurance Fund *INVALID State Self Insurance [id number] N /A [employer]bs [employer] [place] [id number] July History of Encounters Visit Date Visit Type Provider 02/13/2015 Office visit Sean Marie MD 01/26/2015 Office visit Leena Haddad APRN 01/12/2015 Office visit Sean Marie MD 11/24/2014 Office visit Kiarra Ramos SCREEN CLEANER 10/22/2014 Office visit Miguel A Munoz SCREEN CLEANER 08/22/2014 Office visit Sean Marie MD 08/01/2014 Office visit Sean Marie MD 06/09/2014 Office visit Kiarra Ramos SCREEN CLEANER 03/14/2014 Office visit Leena Haddad SCREEN CLEANER 02/27/2014 Office visit Leena Haddad SCREEN CLEANER 12/02/2013 Office visit Sean Marie MD 11/25/2013 Office visit Sean Marie MD 11/14/2013 Office visit Kiarra Ramos SCREEN CLEANER 08/21/2013 Office visit Leena Haddad SCREEN CLEANER 08/09/2013 Office visit Kiarra Ramos SCREEN CLEANER 06/26/2013 Office visit Sean Marie MD 06/26/2013 [facility] Michelle Greco MD 06/21/2013 Office visit Kiarra Ramos SCREEN CLEANER 05/31/2013 Office visit Leena Haddad SCREEN CLEANER 05/10/2013 Office visit Leena Haddad SCREEN CLEANER 05/03/2013 Office visit Leena Haddad SCREEN CLEANER 03/27/2013 Office visit Kiarra Ramos SCREEN CLEANER 03/05/2013 Office visit Kiarra Ramos APRN 02/27/2013 Office visit Kiarra Ramos SCREEN CLEANER 01/08/2013 Office visit Sean Marie MD 10/30/2012 Office visit Sean Marie MD 04/26/2012 Nurse visit Maria Antonia Yuval SCREEN CLEANER 02/07/2012 Office visit Sean Marie MD 02/07/2012 [facility] Marcela Greco MD 12/13/2011 Office visit Sean Marie MD 11/08/2011 Office visit Sean Marie MD 10/24/2011 Office visit Sean Marie MD 08/05/2011 Office visit Sean Marie MD 07/12/2011 Office visit Kiarra Ramos SCREEN CLEANER 05/11/2011 Office visit Sean Marie MD 04/19/2011 [...]
--- OUTSIDE RECORDS SUMMARY | 2018-07-18 13:22 | XMS REPORT ---
Author Author Sean Marie [facility] Address [address] [place], [place] [id number] Care Team Providers Care Console Attendant Name Role Phone Sean Marie PCP [...] TABLET BY MOUTH EVERY DAY AT BEDTIME [place] Thyroid 60 mg oral tablet 04/07/2014 TAKE ONE TABLET BY MOUTH ONCE DAILY lovastatin 40 mg oral tablet 06/12/2014 take 1 tablet by oral route daily [place] Thyroid 60 mg oral tablet 08/04/2014 TAKE [...] TABLET BY MOUTH ONCE DAILY AT BEDTIME [place] Thyroid 60 mg oral tablet 07/13/2015 TAKE [...] TAKE ONE TABLET BY MOUTH ONCE DAILY [place] Thyroid 60 mg oral tablet 07/11/2016 TAKE [...] once daily at bedtime for 30 days [place] Thyroid 60 mg oral tablet 12/02/2013 04/01/2014 [...] by oral route once daily at bedtime [place] 5-325 mg oral tablet 08/22/2014 11/24/2014 take [...] 12:00 AM Decadron, Per 1 Mg [facility]# [address]-65 Reviewed 08/25/2015 12:00 AM Depo-Medrol, Per 80 Mg [facility]#[address]-42 Reviewed 08/25/2015 12:00 AM Rocephin 1 gram [facility]#9728-7300-24 Reviewed 10/09/2015 12:00 AM COMPLETE CBC W/AUTO DIFF WBC Reviewed 10/09/2015 12:00 AM COMPREHEN METABOLIC PANEL Reviewed 10/09/2015 12:00 AM GLYCOSYLATED HEMOGLOBIN TEST Reviewed 10/09/2015 12:00 AM ASSAY THYROID STIM HORMONE Reviewed 11/03/2015 8:54 AM URINALYSIS AUTO W/O SCOPE Reviewed 11/03/2015 12:[address] HEAD/BRAIN W/O & W/DYE Reviewed 11/17/2015 12:00 AM Rocephin 1 gram [facility]#5999-1635-79 Reviewed 08/05/2011 12:00 AM CHEST X-RAY 2VW FRONTAL&LATL Reviewed 12/09/2015 12:00 AM THER/PROPH/DIAG INJ SC/IM Reviewed 12/09/2015 12:00 AM Rocephin 1 gram [facility]#2944-8246-02 Reviewed 11/08/2011 12:00 AM Decadron Inj. per 1[place] [place] [facility] [id number] Reviewed 11/08/2011 12:00 AM Depo-Medrol 80 Mg [facility] [id number] Reviewed 05/20/2016 12:00 AM COMPLETE CBC W/AUTO [...] BACT XCPT URINE BLOOD/STOOL AEROBIC ISOL Reviewed 04/23/2017 12:00 AM THER/PROPH/DIAG INJ SC/IM Reviewed 04/23/2017 12:00 AM Depo-Medrol 40mg Injection Reviewed 04/23/2017 12:00 AM Decadron 4mg Injection Reviewed 10/30/2012 12:00 AM Depo-Medrol 80 Mg Im/C'pancho Reviewed 10/30/2012 12:00 AM Decadron, Per 1 Mg [facility]# [address]-02 Reviewed 10/30/2012 12:00 AM COMPLETE CBC W/AUTO DIFF WBC Reviewed 10/30/2012 12:00 AM COMPREHEN METABOLIC PANEL Reviewed 10/30/2012 12:00 AM LIPID PANEL Reviewed 10/30/2012 12:00 AM ASSAY THYROID STIM HORMONE Reviewed 01/08/2013 12:00 AM Depo-Medrol 80 Mg Im/C'pancho Reviewed 01/08/2013 12:00 AM Decadron, Per 1 Mg [facility]# [address]-63 Reviewed 01/08/2013 12:00 AM Rocephin 1 gram [facility]#1385-6497-83 Reviewed 01/08/2013 12:00 AM COMPREHEN METABOLIC PANEL Reviewed 01/08/2013 12:00 AM GLYCOSYLATED HEMOGLOBIN TEST Reviewed 01/08/2013 12:00 AM ASSAY THYROID STIM HORMONE Reviewed 01/08/2013 12:00 AM ASSAY OF PARATHORMONE Reviewed 01/08/2013 12:00 AM LIPID PANEL Reviewed 02/27/2013 12:00 AM THER/PROPH/DIAG INJ SC/IM Reviewed 02/27/2013 12:00 AM Decadron, Per 1 Mg [facility]# [address]-58 Reviewed 02/27/2013 12:00 AM Depo-Medrol, Per 80 Mg [facility]#3213-4574-87 Reviewed 03/04/2013 12:00 AM MAMMOGRAM SCREENING Reviewed 03/05/2013 12:00 AM CYTOPATH TBS C/V MANUAL Reviewed 03/05/2013 12:00 AM MAMMOGRAM BOTH BREASTS Reviewed 03/27/2013 12:00 AM THER/PROPH/DIAG INJ SC/IM Reviewed 03/27/2013 12:00 AM Bicillin CR, 1.2 million units [facility]# 58907-166-59 Reviewed 05/10/2013 12:00 AM X-RAY EXAM KNEE [...] 12:00 AM Decadron, Per 1 Mg [facility]# [address]-27 Reviewed 08/09/2013 12:00 AM Depo-Medrol, Per 80 Mg [facility]#2950-4287-77 Reviewed 08/21/2013 12:00 AM X-RAY EXAM OF [...] 03/26/2015 12:00 AM Rocephin 1 gram [facility]#6196-0958-52 Reviewed 04/01/2015 12:00 AM COMPLETE CBC W/AUTO DIFF WBC Reviewed 04/01/2015 12:00 AM COMPREHEN METABOLIC PANEL Reviewed 04/01/2015 12:00 AM ASSAY THYROID STIM HORMONE Reviewed 04/01/2015 12:00 AM CHEST X-RAY 2VW FRONTAL&LATL Reviewed 05/07/2015 12:00 AM THER/PROPH/DIAG INJ SC/IM Reviewed 05/07/2015 12:00 AM Decadron injection Reviewed 05/07/2015 12:00 AM Depo-Medrol 40mg Reviewed 05/11/2011 12:00 AM Depo-Medrol 80 Mg [facility] [id number] Reviewed 05/11/2011 12:00 AM Decadron Inj. per 1mg-[facility] [place] [facility] [id number] Reviewed Results Summary Date and Description Results [...] 5.48 HGB 14.10 g/dLHCT 45.40 %MCV 83.0 [facility] 25.70 pgHC 31.10 g/dLRDW SD 41 RDW CV 13.60 [...] Vis Given Vis Pub CVX Tdap 04/26/2012 [employer] SKB ADACEL [id number] Intramuscular Left Arm 04/26/2012 08/19/2008 115 Tdap 03/14/2014 [employer] SKB BOOSTRIX [id number] Intramuscular Left Deltoid 03/14/2014 02/07/2013 115 Influenza 06/22/2015 [employer] NOV Fluvirin [id number] Intramuscular Left Deltoid 06/23/2015 05/08/2015 140 Pneumococcal [...] 09 2015 8:55AM Altered mental state Feb 2015 8:47AM Bacterial vaginosis Feb 2 2015 8:47AM Left shoulder pain Feb 2 2015 8:47AM Memory loss, short term Feb 2015 8:47AM Sinusitis Fe2015 3:04PM Altered mental status b 2015 3:04PM [...] (restless legs syndrome) May 15 2017 8:53AM Payers Insurance Name Company Name Plan Name Plan Number Policy Number Policy Group Number Start Date [employer] [place] [id number] September [facility] Financial Assistance [facility] Financial Alex 40 percent clinic October [employer] [place] [id number] Friday, October 02, 2009 [employer] [place] [id number] November [employer] Self Insurance Fund *INVALID State Self Insurance [id number] N/A [employer] Self Insurance Fund *INVALID State Self Insurance [id number] N/A [employer] [place] [id number] July History of Encounters Visit Date Visit Type Provider 05/15/2017 Office visit Sean Marie MD 04/23/2017 Office visit Aurora Martin DRILLER BRAKE LINING 04/14/2017 Office visit Sean Marie MD 03/20/2017 Office visit Sean Marie MD 03/03/2017 Office visit Aurora Martin [employer]ING 01/09/2017 Office visit Sean Marie MD 01/02/2017 Office visit Sean Marie MD 12/27/2016 Office visit Sean Marie MD 2016 Office visit Sean Marie MD 09/19/2016 Office visit Sean Marie MD 07/01/2016 Office visit Sean Marie MD 06/17/2016 Office visit Sean Marie MD 05/20/2016 Office visit 05/20/2016 Office visit Sean Marie MD 05/16/2016 [facility] Michelle Greco MD 04/01/2016 Office visit Sean Marie MD 02/25/2016 Office visit Sean Marie MD 01/16/2016 Office visit Jania Stanley [employer]RI[employer] BRAKE LINING 01/07/2016 Hospital Michelle Greco MD 12/31/2015 Office visit Sean Marie MD 12/09/2015 Office visit Miguel A Munoz [employer]RI[employer]RA[employer] LINING 11/17/2015 Office visit Sean Marie MD 11/03/2015 Office visit Sean Marie MD 10/09/2015 Office visit 10/09/2015 Office visit Sean Marie MD 08/31/2015 Office visit Sean Marie MD 08/25/2015 Office visit Sean Marie MD 06/05/2015 Office visit Sean Marie MD 05/07/2015 Office visit Amaris Gentile [employer] LINING 05/06/2015 Office visit Kiarra Ramos [employer]RI[employer] BRAKE LINING 04/01/2015 Office visit 04/01/2015 Office visit Sean Marie MD 04/01/2015 Hospital Michelle Greco MD 03/26/2015 Office visit Sean Marie MD 03/19/2015 Office visit Sean Marie MD 02/13/2015 Office visit Sean Marie MD 01/26/2015 Office visit Leena Hadadd [employer] LINING 01/12/2015 Office visit Sena Marie MD 11/24/2014 Office visit Kiarra Ramos [employer]ING 10/22/2014 Office visit Miguel A Munoz [employer]ING 08/22/2014 Office visit Sean Marie MD 08/01/2014 Office visit Sean Marie MD 06/09/2014 Office visit Kiarra Ramos [employer] BRAKE LINING 03/14/2014 Office visit Leena Haddad [employer] LINING 02/27/2014 Office visit Leena Haddad [employer] LINING 12/02/2013 Office visit Sean Marie MD 11/25/2013 Office visit Sean Marie MD 11/14/2013 Office visit Kiarra Ramos [employer] 08/21/2013 Office visit Leena Haddad [employer]ING 08/09/2013 Office visit Kiarra Ramos [employer]ING 06/26/2013 Hospital Michelle Greco MD 06/26/2013 Office visit Sean Marie MD 06/21/2013 Office visit Kiarra Ramos [employer]RI[employer]RA[employer] LINING 05/31/2013 Office visit Leena Haddad [employer]RA[employer] LINING 05/10/2013 Office visit Leena Haddad [employer]RI[employer] BRA[employer] LINING 05/03/2013 Office visit Leena Haddad [employer]RI[employer]RA[employer] LINING 03/27/2013 Office visit Kiarra Ramos [employer]RA[employer] LINING 03/05/2013 Office visit Kiarra Ramos [employer]RAKE LINING 02/27/2013 Office visit Kiarra Richard [employer]ING 01/08/2013 Office visit Sean Marie MD 10/30/2012 Office visit Sean Marie MD 04/26/2012 Nurse visit Maria Antonia Yuval [employer]ING 02/07/2012 Office visit Sean Marie MD 02/07/2012 [facility] Marcela Greco MD 12/13/2011 Office visit Sean Marie MD 11/08/2011 Office visit Sean Marie MD 10/24/2011 Office visit Sean Marie MD 08/05/2011 Office visit Sean Marie MD 07/12/2011 Office visit Kiarra Ramos [employer]RI[employer] BRAKE LINING 05/11/2011 Office visit Sean Marie MD 04/19/2011 [...]
--- OUTSIDE RECORDS SUMMARY | 2018-07-18 13:24 | XMS REPORT ---
Author Author Sean Marie [facility] Address [address] [place], [place] [address] Care Team Providers Care Instructional Assistant Name Role Phone Sean Marie PCP Unavailable Allergies and Adverse Reactions Name Reaction Notes Albuterol tachycardia increases heart rate too much Percocet "head crawling" Adhesive Tape Plan of Treatment Planned Activity Comments Planned Date Planned Time Plan/Goal COMPLETE CBC W/AUTO DIFF WBC 05/20/2016 12:00 AM COMPREHEN METABOLIC PANEL 05/20/2016 12:00 AM ASSAY THYROID STIM HORMONE 05/20/2016 12:00 AM ASSAY OF TOTAL THYROXINE 05/20/2016 12:00 AM COMPLETE CBC W/AUTO DIFF WBC 01/08/2013 12:00 AM ELECTROCARDIOGRAM COMPLETE 06/26/2013 12:00 AM ELECTROCARDIOGRAM COMPLETE 04/01/2015 12:00 AM Medications Active Name Start Date Estimated Completion Date SIG Comments aspirin 81 mg oral tablet,delayed release (DR/EC) take 1 tablet (81 mg) by oral route once daily pravastatin 20 mg oral tablet 02/03/2014 TAKE ONE TABLET BY MOUTH EVERY DAY AT BEDTIME [place] Thyroid 60 mg oral tablet 04/07/2014 TAKE ONE TABLET BY MOUTH ONCE DAILY lovastatin 40 mg oral tablet 06/12/2014 take 1 tablet by oral route daily [place] Thyroid 60 mg oral tablet 08/04/2014 TAKE [...] TAKE ONE TABLET BY MOUTH ONCE DAILY [place] Thyroid 60 mg oral tablet 07/13/2015 TAKE [...] daily at the same time each day Name Start Date Expiration Date SIG [...] once daily at bedtime for 30 days [place] Thyroid 60 mg oral tablet 12/02/2013 04/01/2014 [...] by oral route once daily at bedtime [place] 5-325 mg oral tablet 08/22/2014 11/24/2014 take [...] HC BMI BSA BMI Percentile O2 Sat(%) 05/20/2016 9:29:00 AM 128 mmHg 82 mmHg [...] 08/25/2015 12:00 AM Decadron, Per 1 Mg [facility]# [address]-73 Reviewed 08/25/2015 12:00 AM Depo-Medrol, Per 80 Mg [facility]#[address]-70 Reviewed 08/25/2015 12:00 AM Rocephin 1 gram [facility]#1595-5272-53 Reviewed 10/09/2015 12:00 AM COMPLETE CBC W/AUTO DIFF WBC Reviewed 10/09/2015 12:00 AM COMPREHEN METABOLIC PANEL Reviewed 10/09/2015 12:00 AM GLYCOSYLATED HEMOGLOBIN TEST Reviewed 10/09/2015 12:00 AM ASSAY THYROID STIM HORMONE Reviewed 11/03/2015 8:54 AM URINALYSIS AUTO W/O SCOPE Reviewed 11/03/2015 12:[address] HEAD/BRAIN W/O & W/DYE Reviewed 11/17/2015 12:00 AM Rocephin 1 gram [facility]#8476-7154-44 Reviewed 08/05/2011 12:00 AM CHEST X-RAY 2VW FRONTAL&LATL Reviewed 12/09/2015 12:00 AM THER/PROPH/DIAG INJ SC/IM Reviewed 12/09/2015 12:00 AM Rocephin 1 gram [facility]#7092-6760-42 Reviewed 12/13/2011 12:00 AM X-RAY EXAM OF [...] 10/30/2012 12:00 AM Decadron, Per 1 Mg [facility]# [address]-89 Reviewed 10/30/2012 12:00 AM COMPLETE CBC W/AUTO DIFF WBC Reviewed 10/30/2012 12:00 AM COMPREHEN METABOLIC PANEL Reviewed 10/30/2012 12:00 AM LIPID PANEL Reviewed 10/30/2012 12:00 AM ASSAY THYROID STIM HORMONE Reviewed 01/08/2013 12:00 AM Depo-Medrol 80 Mg Im/C'pancho Reviewed 01/08/2013 12:00 AM Decadron, Per 1 Mg [facility]# [address]-58 Reviewed 01/08/2013 12:00 AM Rocephin 1 gram [facility]#7984-5804-58 Reviewed 01/08/2013 12:00 AM COMPREHEN METABOLIC PANEL Reviewed 01/08/2013 12:00 AM GLYCOSYLATED HEMOGLOBIN TEST Reviewed 01/08/2013 12:00 AM ASSAY THYROID STIM HORMONE Reviewed 01/08/2013 12:00 AM ASSAY OF PARATHORMONE Reviewed 01/08/2013 12:00 AM LIPID PANEL Reviewed 02/27/2013 12:00 AM THER/PROPH/DIAG INJ SC/IM Reviewed 02/27/2013 12:00 AM Decadron, Per 1 Mg [facility]# [address]-83 Reviewed 02/27/2013 12:00 AM Depo-Medrol, Per 80 Mg [facility]#3655-6722-42 Reviewed 03/04/2013 12:00 AM MAMMOGRAM SCREENING Returned 03/05/2013 12:00 AM CYTOPATH TBS C/V MANUAL Returned 03/05/2013 12:00 AM MAMMOGRAM BOTH BREASTS Returned 03/27/2013 12:00 AM THER/PROPH/DIAG INJ SC/IM Reviewed 03/27/2013 12:00 AM Bicillin CR, 1.2 million units [facility]# 70006-101-05 Reviewed 05/10/2013 12:00 AM X-RAY EXAM KNEE [...] 08/09/2013 12:00 AM Decadron, Per 1 Mg [facility]# [address]-21 Reviewed 08/09/2013 12:00 AM Depo-Medrol, Per 80 Mg [facility]#4278-4988-79 Reviewed 08/21/2013 12:00 AM X-RAY EXAM OF [...] Reviewed 03/26/2015 12:00 AM Rocephin 1 gram [facility]#9761-8520-39 Reviewed 04/01/2015 12:00 AM COMPLETE CBC W/AUTO DIFF WBC Reviewed 04/01/2015 12:00 AM COMPREHEN METABOLIC PANEL Reviewed 04/01/2015 12:00 AM ASSAY THYROID STIM HORMONE Reviewed 04/01/2015 12:00 AM CHEST X-RAY 2VW FRONTAL&LATL Reviewed 05/07/2015 12:00 AM THER/PROPH/DIAG INJ SC/IM Reviewed 05/07/2015 12:00 AM Decadron injection Reviewed 05/07/2015 12:00 AM Depo-Medrol 40mg Reviewed 05/11/2011 12:00 AM Depo-Medrol 80 Mg [facility] [id number] Reviewed 05/11/2011 12:00 AM Decadron Inj. per 1mg-[facility] [place] [id number] Reviewed Results Summary Data and Description Results [...] 0.40 mg/ dLCALCIUM 9.80 mg/dLeGFR >60 mL/min/1.73 [id number] 250.0 mg/dLCHOLESTEROL 180.0 mg/dLHDL 39.0 mg/dLLDL (CALC) [...] 0.90 mg/dLCALCIUM 10.0 mg/ dLeGFR >60 mL/min/1.73m History Of Immunizations Name Date Admin Mfg Name Mfg Code Trade Name Lot# Route Inj Vis Given Vis Pub CVX Tdap 04/26/2012 [employer] SKB ADACEL [id number] Intramuscular Left Arm 04/26/2012 08/19/2008 115 Tdap 03/14/2014 [employer] SKB BOOSTRIX [id number] Intramuscular Left Deltoid 03/14/2014 02/07/2013 115 Influenza 06/22/2015 [employer]. NOV Fluvirin [id number] Intramuscular Left Deltoid 06/23/2015 05/08/2015 140 History [...] Obstructive Pulmonary Disease May 20 2016 9:46AM Payers Insurance Name Company Name Plan Name Plan Number Policy Number Policy Group Number Start Date [employer] [place] [id number] September [employer] Financial Assistance [facility] Financial Alex 40 percent clinic October [employer] [id number] Tuesday, August 30, 2011 [employer] [place] [id number] November [employer] Self Insurance Fund *[place] State Self Insurance [id number] N/A [facility] Self Insurance Fund *INVALID [place] Self Insurance [id number] N/A [employer] [place] [id number] July History of Encounters Visit Date Visit Type Provider 05/20/2016 Office visit 05/20/2016 Office visit Sean Marie MD 04/01/2016 Office visit Sean Marie MD 02/25/2016 Office visit Sean Marie MD 01/16/2016 Office visit Jania Stanley BINDERY CUTTER OPERATOR 01/07/2016 Hospital Michelle Greco MD 12/31/2015 Office visit Sean Marie MD 12/09/2015 Office visit Miguel A Munoz BINDERY CUTTER OPERATOR 11/17/2015 Office visit Sean Marie MD 11/03/2015 Office visit Sean Marie MD 10/09/2015 Office visit 10/09/2015 Office visit Sean Marie MD 08/31/2015 Office visit Sean Marie MD 08/25/2015 Office visit Sean Marie MD 06/05/2015 Office visit Sean Marie MD 05/07/2015 Office visit Amaris Gentile BINDERY CUTTER OPERATOR 05/06/2015 Office visit Kiarra Ramos BINDERY CUTTER OPERATOR 04/01/2015 Office visit 04/01/2015 Office visit Sean Marie MD 04/01/2015 Hospital Michelle Greco MD 03/26/2015 Office visit Sean Marie MD 03/19/2015 Office visit Sean Marie MD 02/13/2015 Office visit Sean Marie MD 01/26/2015 Office visit Leena Haddad BINDERY CUTTER OPERATOR 01/12/2015 Office visit Sean Marie MD 11/24/2014 Office visit Kiarra Ramos BINDERY CUTTER OPERATOR 10/22/2014 Office visit Miguel A Munoz BINDERY CUTTER OPERATOR 08/22/2014 Office visit Sean Marie MD 08/01/2014 Office visit Sean Marie MD 06/09/2014 Office visit Kiarra Ramos BINDERY CUTTER OPERATOR 03/14/2014 Office visit Leena Dunn Boo BINDERY CUTTER OPERATOR 02/27/2014 Office visit Leena Haddad BINDERY CUTTER OPERATOR 12/02/2013 Office visit Sean Marie MD 11/25/2013 Office visit Sean Marie MD 11/14/2013 Office visit Kiarra Ramos BINDERY CUTTER OPERATOR 08/21/2013 Office visit Leena Dunn Boo BINDERY CUTTER OPERATOR 08/09/2013 Office visit Kiarra Ramos BINDERY CUTTER OPERATOR 06/26/2013 Hospital Michelle Greco MD 06/26/2013 Office visit Sean Marie MD 06/21/2013 Office visit Kiarra Ramos BINDERY CUTTER OPERATOR 05/31/2013 Office visit Leena Haddad BINDERY CUTTER OPERATOR 05/10/2013 Office visit Leena Haddad BINDERY CUTTER OPERATOR 05/03/2013 Office visit Leena Haddad BINDERY CUTTER OPERATOR 03/27/2013 Office visit Kiarra Ramos BINDERY CUTTER OPERATOR 03/05/2013 Office visit Kiarra Ramos BINDERY CUTTER OPERATOR 02/27/2013 Office visit Kiarra Ramos BINDERY CUTTER OPERATOR 01/08/2013 Office visit Sean Marie MD 10/30/2012 Office visit Sean Marie MD 04/26/2012 Nurse visit Maria Antonia Barakat BINDERY CUTTER OPERATOR 02/07/2012 Office visit Sean Marie MD 02/07/2012 [facility] Michelle Greco MD 12/13/2011 Office visit Sean Marie MD 11/08/2011 Office visit Sean Marie MD 10/24/2011 Office visit Sean Marie MD 08/05/2011 Office visit Sean Marie MD 07/12/2011 Office visit Kiarra Ramos BINDERY CUTTER OPERATOR 05/11/2011 Office visit Sean Marie MD [...]
[2018-07-18] MEDS ORDERED: LIDOCAINE JELLY 2% 6 ML SYRINGE ONE (13:29)
[2018-07-18] MEDS ORDERED: fentaNYL INJECTION 100 MCG/2 ML AMP ONE (13:29)
[2018-07-18] MEDS ORDERED: HURRICAINE EXT TUBE (BENZOCAINE) ONE (13:29)
[2018-07-18] MEDS ORDERED: MIDAZOLAM 2 MG/2 ML (VERSED) VIAL ONE ×3 (13:29)
--- OUTSIDE RECORDS SUMMARY | 2018-07-18 13:32 | XMS REPORT ---
Author Author Sean Marie [facility] Address [address] [place], [place] [id number] Care Team Providers Care Rheostat Assembler Name Role Phone Sean Marie PCP [...] TABLET BY MOUTH EVERY DAY AT BEDTIME [place] Thyroid 60 mg oral tablet 04/07/2014 TAKE ONE TABLET BY MOUTH ONCE DAILY lovastatin 40 mg oral tablet 06/12/2014 take 1 tablet by oral route daily [place] Thyroid 60 mg oral tablet 08/04/2014 TAKE [...] TAKE ONE TABLET BY MOUTH ONCE DAILY [place] Thyroid 60 mg oral tablet 07/13/2015 TAKE [...] the morning and evening for 30 days Lyrica 75 mg oral capsule 02/25/2016 03/10/2016 take 2 capsules (150 mg) by oral route 2 times per day for 14 days Name Start Date Expiration Date SIG [...] once daily at bedtime for 30 days [place] Thyroid 60 mg oral tablet 12/02/2013 04/01/2014 [...] oral route once daily for 4 days prednisone 20 mg oral tablet 01/16/2016 [...] by topical route 2 times per day Juvencioin DM Cough and Chest 10-200 mg/5 mL [...] oral route once daily at bedtime [place] 5-325 mg oral tablet 08/22/2014 11/24/2014 take [...] HC BMI BSA BMI Percentile O2 Sat(%) 02/25/2016 3:55:00 PM 152 mmHg 88 mmHg [...] Per 1 Mg [facility]# [address]-64 Reviewed 08/25/2015 12:00 AM Depo-Medrol, Per 80 Mg [facility]#[address]-12 Reviewed 08/25/2015 12:00 AM Rocephin 1 gram [facility]#9254-4355-47 Reviewed 10/09/2015 12:00 AM COMPLETE CBC W/AUTO DIFF WBC Reviewed 10/09/2015 12:00 AM COMPREHEN METABOLIC PANEL Reviewed 10/09/2015 12:00 AM GLYCOSYLATED HEMOGLOBIN TEST Reviewed 10/09/2015 12:00 AM ASSAY THYROID STIM HORMONE Reviewed 11/03/2015 8:54 AM URINALYSIS AUTO W/O SCOPE Reviewed 11/03/2015 12:[address] HEAD/BRAIN W/O & W/DYE Reviewed 11/17/2015 12:00 AM Rocephin 1 gram [facility]#4897-2239-44 Reviewed 08/05/2011 12:00 AM CHEST X-RAY 2VW FRONTAL&LATL Reviewed 12/09/2015 12:00 AM THER/PROPH/DIAG INJ SC/IM Reviewed 12/09/2015 12:00 AM Rocephin 1 gram [facility]#3945-6684-74 Reviewed 12/13/2011 12:00 AM X-RAY EXAM OF [...] Per 1 Mg [facility]# [address]-64 Reviewed 10/30/2012 12:00 AM COMPLETE CBC W/AUTO DIFF WBC Reviewed 10/30/2012 12:00 AM COMPREHEN METABOLIC PANEL Reviewed 10/30/2012 12:00 AM LIPID PANEL Reviewed 10/30/2012 12:00 AM ASSAY THYROID STIM HORMONE Reviewed 01/08/2013 12:00 AM Depo-Medrol 80 Mg Im/C'pancho Reviewed 01/08/2013 12:00 AM Decadron, Per 1 Mg [facility]# [address]-08 Reviewed 01/08/2013 12:00 AM Rocephin 1 gram [facility]#7340-1593-42 Reviewed 01/08/2013 12:00 AM COMPREHEN METABOLIC PANEL Reviewed 01/08/2013 12:00 AM GLYCOSYLATED HEMOGLOBIN TEST Reviewed 01/08/2013 12:00 AM ASSAY THYROID STIM HORMONE Reviewed 01/08/2013 12:00 AM ASSAY OF PARATHORMONE Reviewed 01/08/2013 12:00 AM LIPID PANEL Reviewed 02/27/2013 12:00 AM THER/PROPH/DIAG INJ SC/IM Reviewed 02/27/2013 12:00 AM Decadron, Per 1 Mg [facility]# [address]-19 Reviewed 02/27/2013 12:00 AM Depo-Medrol, Per 80 Mg [facility]#4458-3846-31 Reviewed 03/04/2013 12:00 AM MAMMOGRAM SCREENING Returned 03/05/2013 12:00 AM CYTOPATH TBS C/V MANUAL Returned 03/05/2013 12:00 AM MAMMOGRAM BOTH BREASTS Returned 03/27/2013 12:00 AM THER/PROPH/DIAG INJ SC/IM Reviewed 03/27/2013 12:00 AM Bicillin CR, 1.2 million units [facility]# 77613-127-60 Reviewed 05/10/2013 12:00 AM X-RAY EXAM KNEE [...] Per 1 Mg [facility]# [address]-64 Reviewed 08/09/2013 12:00 AM Depo-Medrol, Per 80 Mg [facility]#7493-3461-17 Reviewed 08/21/2013 12:00 AM X-RAY EXAM OF [...] AM Rocephin 1 gram [facility]#9904-2684-00 Reviewed 04/01/2015 12:00 AM COMPLETE CBC W/AUTO DIFF WBC Reviewed 04/01/2015 12:00 AM COMPREHEN METABOLIC PANEL Reviewed 04/01/2015 12:00 AM ASSAY THYROID STIM HORMONE Reviewed 04/01/2015 12:00 AM CHEST X-RAY 2VW FRONTAL&LATL Reviewed 05/07/2015 12:00 AM THER/PROPH/DIAG INJ SC/IM Reviewed 05/07/2015 12:00 AM Decadron injection Reviewed 05/07/2015 12:00 AM Depo-Medrol 40mg Reviewed 05/11/2011 12:00 AM Depo-Medrol 80 Mg [facility] [id number] Reviewed 05/11/2011 12:00 AM Decadron Inj. per 1mg-[facility] [id number] Reviewed Results Summary Data and Description Results [...] 0.40 mg/ dLCALCIUM 9.80 mg/dLeGFR >60 mL/min/1.73 [id number] 250.0 mg/dLCHOLESTEROL 180.0 mg/dLHDL 39.0 mg/dLLDL (CALC) 91.0 mg/[place] REACTIVE PROTEIN 15.0 mg/BREONNA Direct Negative 02/27/2014 [...] Vis Given Vis Pub CVX Tdap 04/26/2012 [employer] SKB ADACEL [id number] Intramuscular Left Arm 04/26/2012 08/19/2008 115 Tdap 03/14/2014 [employer] SKB BOOSTRIX [id number] Intramuscular Left Deltoid 03/14/2014 02/07/2013 115 Influenza 06/22/2015 RAREFORM. NOV Fluvirin [id number] Intramuscular Left Deltoid 06/23/2015 05/08/2015 140 History [...] 2016 11:00AM Fibromyalgia Feb 25 2016 4:00PM Payers Insurance Name Company Name Plan Name Plan Number Policy Number Policy Group Number Start Date [facility] [id number] September [facility] Financial Assistance [facility] Financial Alex 40 percent clinic [facility] [id number] Tuesday, August 30, 2011 [facility] [id number] November [employer] Self Insurance Fund *INVALID State Self Insurance [id number] N/A [employer] Self Insurance Fund *INVALID State Self Insurance [id number] N/A BCBS [facility] [id number] July History of Encounters Visit Date Visit Type Provider 02/25/2016 Office visit Sean Marie MD 01/16/2016 Office visit Jania Vacadez PHARMACEUTICAL PHYSICIAN 12/31/2015 Office visit Sean Marie MD 12/09/2015 Office visit Miguel A Munoz PHARMACEUTICAL PHYSICIAN 11/17/2015 Office visit Sean Marie MD 11/03/2015 Office visit Sean Marie MD 10/09/2015 Office visit 10/09/2015 Office visit Sean Marie MD 08/31/2015 Office visit Sean Marie MD 08/25/2015 Office visit Sean Marie MD 06/05/2015 Office visit Sean Marie MD 05/07/2015 Office visit Amaris Gentile PHARMACEUTICAL PHYSICIAN 05/06/2015 Office visit Kiarra Ramos PHARMACEUTICAL PHYSICIAN 04/01/2015 Office visit 04/01/2015 Office visit Sean Marie MD 04/01/2015 Hospital Michelle Greco MD 03/26/2015 Office visit Sean Marie MD 03/19/2015 Office visit Sean Marie MD 02/13/2015 Office visit Sean Marie MD 01/26/2015 Office visit Leena Haddad PHARMACEUTICAL PHYSICIAN 01/12/2015 Office visit Sean Marie MD 11/24/2014 Office visit Kiarra Ramos PHARMACEUTICAL PHYSICIAN 10/22/2014 Office visit Miguel A Munoz PHARMACEUTICAL PHYSICIAN 08/22/2014 Office visit Sean Marie MD 08/01/2014 Office visit Sean Marie MD 06/09/2014 Office visit Kiarra Ramos PHARMACEUTICAL PHYSICIAN 03/14/2014 Office visit Leena Haddad PHARMACEUTICAL PHYSICIAN 02/27/2014 Office visit Leena Haddad PHARMACEUTICAL PHYSICIAN 12/02/2013 Office visit Sean Marie MD 11/25/2013 Office visit Sean Marie MD 11/14/2013 Office visit Kiarra Ramos PHARMACEUTICAL PHYSICIAN 08/21/2013 Office visit Leena Haddad PHARMACEUTICAL PHYSICIAN 08/09/2013 Office visit Kiarra Ramos PHARMACEUTICAL PHYSICIAN 06/26/2013 Hospital Michelle Greco MD 06/26/2013 Office visit Sean Marie MD 06/21/2013 Office visit Kiarra Ramos PHARMACEUTICAL PHYSICIAN 05/31/2013 Office visit Leena Haddad PHARMACEUTICAL PHYSICIAN 05/10/2013 Office visit Leena Haddad PHARMACEUTICAL PHYSICIAN 05/03/2013 Office visit Leena Haddad PHARMACEUTICAL PHYSICIAN 03/27/2013 Office visit Kiarra Ramos PHARMACEUTICAL PHYSICIAN 03/05/2013 Office visit Kiarra Ramos PHARMACEUTICAL PHYSICIAN 02/27/2013 Office visit Kiarra Ramos PHARMACEUTICAL PHYSICIAN 01/08/2013 Office visit Sean Marie MD 10/30/2012 Office visit Sean Marie MD 04/26/2012 Nurse visit Maria Antonia Barakat APRN 02/07/2012 Office visit Sean Marie MD 02/07/2012 [facility] Marcela Greco MD 12/13/2011 Office visit [...]
--- OUTSIDE RECORDS SUMMARY | 2018-07-18 13:34 | XMS REPORT ---
Author Author Sean Marie [facility] Address [address] [place], [place] [address] Care Team Providers Care Spray I Painter Name Role Phone Sean Marie PCP Unavailable [...] TABLET BY MOUTH EVERY DAY AT BEDTIME [place] Thyroid 60 mg oral tablet 04/07/2014 TAKE ONE TABLET BY MOUTH ONCE DAILY lovastatin 40 mg oral tablet 06/12/2014 take 1 tablet by oral route daily [place] Thyroid 60 mg oral tablet 08/04/2014 TAKE [...] TAKE ONE TABLET BY MOUTH ONCE DAILY [place] Thyroid 60 mg oral tablet 07/13/2015 TAKE [...] every 12 hours for 14 days Medrol (Ejronimo) 4 mg oral tablets,dose pack 03/03/2010 03/13/2010 [...] once daily at bedtime for 30 days [place] Thyroid 60 mg oral tablet 12/02/2013 04/01/2014 [...] by inhalation route 2 times a day [place] 5-325 mg oral tablet 08/22/2014 11/24/2014 take [...] Decadron, Per 1 Mg [facility]# [address]-03 Reviewed 08/25/2015 12:00 AM Depo-Medrol, Per 80 Mg [facility]#[address]-85 Reviewed 08/25/2015 12:00 AM Rocephin 1 gram [facility]#3106-0095-97 Reviewed 10/09/2015 12:00 AM COMPLETE CBC W/AUTO [...] Decadron, Per 1 Mg [facility]# [address]-74 Reviewed 10/30/2012 12:00 AM COMPLETE CBC W/AUTO DIFF WBC Reviewed 10/30/2012 12:00 AM COMPREHEN METABOLIC PANEL Reviewed 10/30/2012 12:00 AM LIPID PANEL Reviewed 10/30/2012 12:00 AM ASSAY THYROID STIM HORMONE Reviewed 01/08/2013 12:00 AM Depo-Medrol 80 Mg Im/C'pancho Reviewed 01/08/2013 12:00 AM Decadron, Per 1 Mg [facility]# [address]-09 Reviewed 01/08/2013 12:00 AM Rocephin 1 gram [facility]#5082-0216-96 Reviewed 01/08/2013 12:00 AM COMPREHEN METABOLIC PANEL Reviewed 01/08/2013 12:00 AM GLYCOSYLATED HEMOGLOBIN TEST Reviewed 01/08/2013 12:00 AM ASSAY THYROID STIM HORMONE Reviewed 01/08/2013 12:00 AM ASSAY OF PARATHORMONE Reviewed 01/08/2013 12:00 AM LIPID PANEL Reviewed 02/27/2013 12:00 AM THER/PROPH/DIAG INJ SC/IM Reviewed 02/27/2013 12:00 AM Decadron, Per 1 Mg [facility]# [address]-21 Reviewed 02/27/2013 12:00 AM Depo-Medrol, Per 80 Mg [facility]#7329-2572-73 Reviewed 03/04/2013 12:00 AM MAMMOGRAM SCREENING Returned 03/05/2013 12:00 AM CYTOPATH TBS C/V MANUAL Returned 03/05/2013 12:00 AM MAMMOGRAM BOTH BREASTS Returned 03/27/2013 12:00 AM THER/PROPH/DIAG INJ SC/IM Reviewed 03/27/2013 12:00 AM Bicillin CR, 1.2 million units [facility]# 37191-466-32 Reviewed 05/10/2013 12:00 AM X-RAY EXAM KNEE [...] Decadron, Per 1 Mg [facility]# [address]-12 Reviewed 08/09/2013 12:00 AM Depo-Medrol, Per 80 Mg [facility]#5489-6403-30 Reviewed 08/21/2013 12:00 AM X-RAY EXAM OF [...] 12:00 AM Rocephin 1 gram [facility]#1280-9291-20 Reviewed 04/01/2015 12:00 AM COMPLETE CBC W/AUTO DIFF WBC Reviewed 04/01/2015 12:00 AM COMPREHEN METABOLIC PANEL Reviewed 04/01/2015 12:00 AM ASSAY THYROID STIM HORMONE Reviewed 04/01/2015 12:00 AM CHEST X-RAY 2VW FRONTAL&LATL Reviewed 05/07/2015 12:00 AM THER/PROPH/DIAG INJ SC/IM Reviewed 05/07/2015 12:00 AM Decadron injection Reviewed 05/07/2015 12:00 AM Depo-Medrol 40mg Reviewed 05/11/2011 12:00 AM Depo-Medrol 80 Mg [facility] [id number] Reviewed 05/11/2011 12:00 AM Decadron Inj. per 1mg-[facility] [id number] Reviewed Results Summary Data and Description Results [...] 0.40 mg/ dLCALCIUM 9.80 mg/dLeGFR >60 mL/min/1.73 [id number] 250.0 mg/dLCHOLESTEROL 180.0 mg/dLHDL 39.0 mg/dLLDL (CALC) [...] Vis Given Vis Pub CVX Tdap 04/26/2012 [employer] SKB ADACEL [id number] Intramuscular Left Arm 04/26/2012 08/19/2008 115 Tdap 03/14/2014 [employer] SKB BOOSTRIX [id number] Intramuscular Left Deltoid 03/14/2014 02/07/2013 115 Influenza 06/22/2015 [employer]. NOV Fluvirin [id number] Intramuscular Left Deltoid 06/23/2015 05/08/2015 140 History [...] Nov 03 2015 8:47AM Left shoulder pain b 2015 8:47AM Memory loss, short term b 2015 8:47AM Payers Insurance Name Company Name Plan Name Plan Number Policy Number Policy Group Number Start Date [employer] [place] [id number] September [facility] Financial Assistance [facility] Financial Alex 40 percent clinic October [employer] [place] [id number] Tuesday, August 30, 2011 [employer] [place] [id number] November State Self Insurance Fund *INVALID State Self Insurance [id number] N /A State Self Insurance Fund *INVALID State Self Insurance [id number] N /A [employer] [employer] [place] [id number] July History of Encounters Visit Date Visit Type Provider 11/03/2015 Office visit Sean Marie MD 10/09/2015 Office visit 10/09/2015 Office visit Sean Marie MD 08/31/2015 Office visit Sean Marie MD 08/25/2015 Office visit Sean Marie MD 06/05/2015 Office visit Sean Marie MD 05/07/2015 Office visit Amaris Gentile FRONT END DEVELOPER DESIGNER 05/06/2015 Office visit Kiarra Ramos FRONT END DEVELOPER DESIGNER 04/01/2015 Office visit 04/01/2015 Office visit Sean aMrie MD 04/01/2015 [facility] Michelle Greco MD 03/26/2015 Office visit Sean Marie MD 03/19/2015 Office visit Sean Marie MD 02/13/2015 Office visit Sean Marie MD 01/26/2015 Office visit Leena Haddad FRONT END DEVELOPER DESIGNER 01/12/2015 Office visit Sean Marie MD 11/24/2014 Office visit Kiarra Ramos FRONT END DEVELOPER DESIGNER 10/22/2014 Office visit Miguel A Munoz FRONT END DEVELOPER DESIGNER 08/22/2014 Office visit Sean Marie MD 08/01/2014 Office visit Sean Marie MD 06/09/2014 Office visit Kiarra Ramos FRONT END DEVELOPER DESIGNER 03/14/2014 Office visit Leena Dunn Boo FRONT END DEVELOPER DESIGNER 02/27/2014 Office visit Leena Dunn Boo FRONT END DEVELOPER DESIGNER 12/02/2013 Office visit Sean Marie MD 11/25/2013 Office visit Sean Marie MD 11/14/2013 Office visit Kiarra Ramos FRONT END DEVELOPER DESIGNER 08/21/2013 Office visit Leenaluis miguel Haddad FRONT END DEVELOPER DESIGNER 08/09/2013 Office visit Kiarra Ramos FRONT END DEVELOPER DESIGNER 06/26/2013 Hospital Michelle Greco MD 06/26/2013 Office visit Sean Marie MD 06/21/2013 Office visit Kiarra Ramos FRONT END DEVELOPER DESIGNER 05/31/2013 Office visit Leena NEd Boo FRONT END DEVELOPER DESIGNER 05/10/2013 Office visit Leena Mona Boo FRONT END DEVELOPER DESIGNER 05/03/2013 Office visit Leena Dunn Boo FRONT END DEVELOPER DESIGNER 03/27/2013 Office visit Kiarra Ramos FRONT END DEVELOPER DESIGNER 03/05/2013 Office visit Kiarra Ramos FRONT END DEVELOPER DESIGNER 02/27/2013 Office visit Kiarra Ramos FRONT END DEVELOPER DESIGNER 01/08/2013 Office visit Sean Marie MD 10/30/2012 Office visit Sean Marie MD 04/26/2012 Nurse visit Maria Antonia Barakat FRONT END DEVELOPER DESIGNER 02/07/2012 Office visit Sean Marie MD 02/07/2012 Hospital Michelle Greco MD 12/13/2011 Office visit Sean Marie MD 11/08/2011 Office visit Sean Marie MD 10/24/2011 Office visit Sean Marie MD 08/05/2011 Office visit Sean Marie MD 07/12/2011 Office visit Kiarra Ramos FRONT END DEVELOPER DESIGNER 05/11/2011 Office visit Sean Marie MD 04/19/2011 [...]
--- OUTSIDE RECORDS SUMMARY | 2018-07-18 13:38 | XMS REPORT ---
Author Author Sean Marie [facility] Address [address] [place], [place] [address] Care Team Providers Care Window Display Designer Name Role Phone Sean Marie PCP Unavailable [...] TABLET BY MOUTH EVERY DAY AT BEDTIME [place] Thyroid 60 mg oral tablet 04/07/2014 TAKE ONE TABLET BY MOUTH ONCE DAILY lovastatin 40 mg oral tablet 06/12/2014 take 1 tablet by oral route daily [place] Thyroid 60 mg oral tablet 08/04/2014 TAKE [...] TAKE ONE TABLET BY MOUTH ONCE DAILY [place] Thyroid 60 mg oral tablet 07/13/2015 TAKE [...] the morning and evening for 30 days amitriptyline 25 mg oral tablet 04/01/2016 07/30/2016 take 1 tablet (25 mg) by oral route once daily at [...] once daily at bedtime for 30 days [place] Thyroid 60 mg oral tablet 12/02/2013 04/01/2014 [...] by oral route once daily at bedtime [place] 5-325 mg oral tablet 08/22/2014 11/24/2014 take [...] HC BMI BSA BMI Percentile O2 Sat(%) 04/01/2016 9:58:00 AM 142 mmHg 88 mmHg [...] 12:00 AM Decadron, Per 1 Mg [facility]# [address]-74 Reviewed 08/25/2015 12:00 AM Depo-Medrol, Per 80 Mg [facility]#[address]-52 Reviewed 08/25/2015 12:00 AM Rocephin 1 gram [facility]#7532-3593-14 Reviewed 10/09/2015 12:00 AM COMPLETE CBC W/AUTO DIFF WBC Reviewed 10/09/2015 12:00 AM COMPREHEN METABOLIC PANEL Reviewed 10/09/2015 12:00 AM GLYCOSYLATED HEMOGLOBIN TEST Reviewed 10/09/2015 12:00 AM ASSAY THYROID STIM HORMONE Reviewed 11/03/2015 8:54 AM URINALYSIS AUTO W/O SCOPE Reviewed 11/03/2015 12:[address] HEAD/BRAIN W/O & W/DYE Reviewed 11/17/2015 12:00 AM Rocephin 1 gram [facility]#1925-8905-64 Reviewed 08/05/2011 12:00 AM CHEST X-RAY 2VW FRONTAL&LATL Reviewed 12/09/2015 12:00 AM THER/PROPH/DIAG INJ SC/IM Reviewed 12/09/2015 12:00 AM Rocephin 1 gram [facility]#6030-5395-29 Reviewed 12/13/2011 12:00 AM X-RAY EXAM OF [...] 12:00 AM Decadron, Per 1 Mg [facility]# [address]-45 Reviewed 10/30/2012 12:00 AM COMPLETE CBC W/AUTO DIFF WBC Reviewed 10/30/2012 12:00 AM COMPREHEN METABOLIC PANEL Reviewed 10/30/2012 12:00 AM LIPID PANEL Reviewed 10/30/2012 12:00 AM ASSAY THYROID STIM HORMONE Reviewed 01/08/2013 12:00 AM Depo-Medrol 80 Mg Im/C'pancho Reviewed 01/08/2013 12:00 AM Decadron, Per 1 Mg [facility]# [address]-16 Reviewed 01/08/2013 12:00 AM Rocephin 1 gram [facility]#4682-9800-18 Reviewed 01/08/2013 12:00 AM COMPREHEN METABOLIC PANEL Reviewed 01/08/2013 12:00 AM GLYCOSYLATED HEMOGLOBIN TEST Reviewed 01/08/2013 12:00 AM ASSAY THYROID STIM HORMONE Reviewed 01/08/2013 12:00 AM ASSAY OF PARATHORMONE Reviewed 01/08/2013 12:00 AM LIPID PANEL Reviewed 02/27/2013 12:00 AM THER/PROPH/DIAG INJ SC/IM Reviewed 02/27/2013 12:00 AM Decadron, Per 1 Mg [facility]# [address]-81 Reviewed 02/27/2013 12:00 AM Depo-Medrol, Per 80 Mg [facility]#3035-4090-10 Reviewed 03/04/2013 12:00 AM MAMMOGRAM SCREENING Returned 03/05/2013 12:00 AM CYTOPATH TBS C/V MANUAL Returned 03/05/2013 12:00 AM MAMMOGRAM BOTH BREASTS Returned 03/27/2013 12:00 AM THER/PROPH/DIAG INJ SC/IM Reviewed 03/27/2013 12:00 AM Bicillin CR, 1.2 million units [facility]# 01058-794-52 Reviewed 05/10/2013 12:00 AM X-RAY EXAM KNEE [...] 12:00 AM Decadron, Per 1 Mg [facility]# [address]-27 Reviewed 08/09/2013 12:00 AM Depo-Medrol, Per 80 Mg [facility]#1235-3272-00 Reviewed 08/21/2013 12:00 AM X-RAY EXAM OF [...] 03/26/2015 12:00 AM Rocephin 1 gram [facility]#0618-8355-65 Reviewed 04/01/2015 12:00 AM COMPLETE CBC W/AUTO DIFF WBC Reviewed 04/01/2015 12:00 AM COMPREHEN METABOLIC PANEL Reviewed 04/01/2015 12:00 AM ASSAY THYROID STIM HORMONE Reviewed 04/01/2015 12:00 AM CHEST X-RAY 2VW FRONTAL&LATL Reviewed 05/07/2015 12:00 AM THER/PROPH/DIAG INJ SC/IM Reviewed 05/07/2015 12:00 AM Decadron injection Reviewed 05/07/2015 12:00 AM Depo-Medrol 40mg Reviewed 05/11/2011 12:00 AM Depo-Medrol 80 Mg [facility] [id number] Reviewed 05/11/2011 12:00 AM Decadron Inj. per 1mg[facility] [id number] Reviewed Results Summary Data and Description Results [...] 0.40 mg/ dLCALCIUM 9.80 mg/dLeGFR >60 mL/min/1.73 [id number] 250.0 mg/dLCHOLESTEROL 180.0 mg/dLHDL 39.0 mg/dLLDL (CALC) [...] Vis Given Vis Pub CVX Tdap 04/26/2012 [employer] SKB ADACEL [id number] Intramuscular Left Arm 04/26/2012 08/19/2008 115 Tdap 03/14/2014 [employer] SKB BOOSTRIX [id number] Intramuscular Left Deltoid 03/14/2014 02/07/2013 115 Influenza 06/22/2015 Cell Therapy. NOV Fluvirin [id number] Intramuscular Left Deltoid 06/23/2015 05/08/2015 140 History [...] 2016 4:00PM Fibromyalgia Apr 01 2016 10:02AM Payers Insurance Name Company Name Plan Name Plan Number Policy Number Policy Group Number Start Date [employer]BS [facility] [id number] September [employer] Financial Assistance [employer] Financial Alex 40 percent clinic October [employer]BS [employer] [facility] [id number] Tuesday, August 30, 2011 BCBS [employer] [facility] [id number] November [employer] Self Insurance Fund *INVALID State Self Insurance [id number] N/A [employer] Self Insurance Fund *INVALID State Self Insurance [id number] N/A BCBS [employer] [place] [id number] July History of Encounters Visit Date Visit Type Provider 04/01/2016 Office visit Sean Marie MD 02/25/2016 Office visit Sean Marie MD 01/16/2016 Office visit Jania Stanley CALENDAR CONTROL CLERK BLOOD BANK 01/07/2016 Hospital Michelle Greco MD 12/31/2015 Office visit Sean Marie MD 12/09/2015 Office visit Miguel A Munoz CALENDAR CONTROL CLERK BLOOD BANK 11/17/2015 Office visit Sean Marie MD 11/03/2015 Office visit Sean Marie MD 10/09/2015 Office visit 10/09/2015 Office visit Sean Marie MD 08/31/2015 Office visit Sean Marie MD 08/25/2015 Office visit Sean Marie MD 06/05/2015 Office visit Sean Marie MD 05/07/2015 Office visit Amaris Gentile CALENDAR CONTROL CLERK BLOOD BANK 05/06/2015 Office visit Kiarra Ramos CALENDAR CONTROL CLERK BLOOD BANK 04/01/2015 Office visit 04/01/2015 Office visit Sean Marie MD 04/01/2015 Hospital Michelle Greco MD 03/26/2015 Office visit Sean Marie MD 03/19/2015 Office visit Sean Marie MD 02/13/2015 Office visit Sean Marie MD 01/26/2015 Office visit Leena Haddad CALENDAR CONTROL CLERK BLOOD BANK 01/12/2015 Office visit Sean Marie MD 11/24/2014 Office visit Kiarra Ramos CALENDAR CONTROL CLERK BLOOD BANK 10/22/2014 Office visit Miguel A Munoz CALENDAR CONTROL CLERK BLOOD BANK 08/22/2014 Office visit Sean Marie MD 08/01/2014 Office visit Sean Marie MD 06/09/2014 Office visit Kiarra Ramos CALENDAR CONTROL CLERK BLOOD BANK 03/14/2014 Office visit Leena Haddad CALENDAR CONTROL CLERK BLOOD BANK 02/27/2014 Office visit Leena Haddad CALENDAR CONTROL CLERK BLOOD BANK 12/02/2013 Office visit Sean Marie MD 11/25/2013 Office visit Sean Marie MD 11/14/2013 Office visit Kiarra Ramos CALENDAR CONTROL CLERK BLOOD BANK 08/21/2013 Office visit Leena Haddad CALENDAR CONTROL CLERK BLOOD BANK 08/09/2013 Office visit Kiarra Ramos CALENDAR CONTROL CLERK BLOOD BANK 06/26/2013 Hospital Michelle Greco MD 06/26/2013 Office visit Sean Marie MD 06/21/2013 Office visit Kiarra Ramos CALENDAR CONTROL CLERK BLOOD BANK 05/31/2013 Office visit Leena Haddad CALENDAR CONTROL CLERK BLOOD BANK 05/10/2013 Office visit Leenaluis miguel Haddad CALENDAR CONTROL CLERK BLOOD BANK 05/03/2013 Office visit Leena Haddad CALENDAR CONTROL CLERK BLOOD BANK 03/27/2013 Office visit Kiarra Ramos CALENDAR CONTROL CLERK BLOOD BANK 03/05/2013 Office visit Kiarra Ramos CALENDAR CONTROL CLERK BLOOD BANK 02/27/2013 Office visit Kiarra Ramos CALENDAR CONTROL CLERK BLOOD BANK 01/08/2013 Office visit Sean Marie MD 10/30/2012 Office visit Sean Marie MD 04/26/2012 Nurse visit Maria Antonia Barakat CALENDAR CONTROL CLERK BLOOD BANK 02/07/2012 Office visit Sean Marie MD 02/07/2012 [facility] Michelle Greco MD 12/13/2011 Office visit Sean Marie MD 11/08/2011 Office visit Sean Marie MD 10/24/2011 Office visit Sean Marie MD 08/05/2011 Office visit Sean Marie MD 07/12/2011 Office visit Kiarra Ramos CALENDAR CONTROL CLERK BLOOD BANK 05/11/2011 Office visit Sean Marie MD 04/19/2011 [...]
--- OUTSIDE RECORDS SUMMARY | 2018-07-18 13:40 | XMS REPORT ---
Author Author Sean Marie [facility] Address [address] [place], [place] [id number] Care Team Providers Care Manager Employee Benefits Name Role Phone Sean Marie PCP Unavailable Allergies and Adverse Reactions Name Reaction Notes NO KNOWN DRUG ALLERGIES Albuterol increases heart rate too much Plan of Treatment Planned Activity Comments Planned Date Planned Time Plan/Goal COMPLETE CBC W/AUTO DIFF WBC 01/08/2013 12:00 AM COMPLETE CBC W/AUTO DIFF WBC 04/01/2015 12:00 AM COMPREHEN METABOLIC PANEL 04/01/2015 12:00 AM ASSAY THYROID STIM HORMONE 04/01/2015 12:00 AM CHEST X-RAY 2VW FRONTAL&LATL 04/01/2015 12:00 AM Medications Active Name Start Date Estimated Completion Date SIG Comments aspirin Oral Tablet, Delayed Release (E.C.) 81 mg take 1 tablet (81 mg) by oral route once daily pravastatin oral tablet 20 mg 02/03/2014 TAKE ONE TABLET BY MOUTH EVERY DAY AT BEDTIME [place] Thyroid oral tablet 60 mg 04/07/2014 TAKE ONE TABLET BY MOUTH ONCE DAILY Zofran ODT oral lovastatin oral tablet 40 mg 06/12/2014 take 1 tablet by oral route daily [place] Thyroid oral tablet 60 mg 08/04/2014 TAKE [...] BY MOUTH ONCE DAILY AT BEDTIME Abilify oral tablet 2 mg [...] by oral route 2 times per day Xopenex Inhalation Solution for Nebulization 1.25 mg/3 mL 03/27/2015 inhale 3 milliliters (1.25 mg) by nebulization route 3 times per day Garcinia Cambogia oral tablet 200-500 mcg-mg Levaquin oral tablet 500 mg 04/01/2015 04/08/2015 take 1 tablet by oral route daily for 7 days Name Start Date Expiration [...] once daily at bedtime for 30 days [place] Thyroid oral tablet 60 mg 12/02/2013 04/01/2014 [...] by inhalation route 2 times a day [place] oral tablet 5-325 mg 08/22/2014 11/24/2014 take 1 tablet by oral route every 6 hours as needed for pain trazodone oral tablet 150 mg 11/17/2014 04/01/2015 TAKE ONE TABLET BY MOUTH EVERY DAY AT BEDTIME Dexilant oral capsule,biphase delayed releas 60 mg [...] HC BMI BSA BMI Percentile O2 Sat(%) 04/01/2015 8:38:00 AM 128 mmHg 72 mmHg [...] 0.40 mg/ dLCALCIUM 9.80 mg/dLeGFR >60 mL/min/1.73 [id number] 250.0 mg/dLCHOLESTEROL 180.0 mg/dLHDL 39.0 mg/dLLDL (CALC) [...] Vis Given Vis Pub CVX Tdap 04/26/2012 GlaxMunetrix SKB ADACEL [id number] Intramuscular Left Arm 04/26/2012 08/19/2008 115 Tdap 03/14/2014 Tonx SKB BOOSTRIX [id number] Intramuscular Left Deltoid 03/14/2014 [...] 8:38AM Insomnia, unspecified Apr 01 2015 8:38AM Payers Insurance Name Company Name Plan Name Plan Number Policy Number Policy Group Number [id number] September [email or web address] Financial Assistance [facility] Financial Alex 40 percent clinic October [employer] [place] [id number] Tuesday, August 30, 2011 [employer] [place] [id number] November State Self Insurance Fund *INVALID State Self Insurance [id number] N /A State Self Insurance Fund *INVALID State Self Insurance [id number] N /A [employer] [place] [id number] July History of Encounters Visit Date Visit Type Provider 04/01/2015 Office visit Sean Marie MD 03/26/2015 Office visit Sean Marie MD 03/19/2015 Office visit Sean Marie MD 02/13/2015 Office visit Sean Marie MD 01/26/2015 Office visit Leena Haddad COMMERCIAL CENTER MANAGER 01/12/2015 Office visit Sean Marie MD 11/24/2014 Office visit Kiarra Ramos COMMERCIAL CENTER MANAGER 10/22/2014 Office visit Miguel A Munoz COMMERCIAL CENTER MANAGER 08/22/2014 Office visit Sean Marie MD 08/01/2014 Office visit Sean Marie MD 06/09/2014 Office visit Kiarra Ramos COMMERCIAL CENTER MANAGER 03/14/2014 Office visit Leena Haddad COMMERCIAL CENTER MANAGER 02/27/2014 Office visit Leena Haddad COMMERCIAL CENTER MANAGER 12/02/2013 Office visit Sean Marie MD 11/25/2013 Office visit Sean Marie MD 11/14/2013 Office visit Kiarra Ramos COMMERCIAL CENTER MANAGER 08/21/2013 Office visit Leena Haddad COMMERCIAL CENTER MANAGER 08/09/2013 Office visit Kiarra Ramos COMMERCIAL CENTER MANAGER 06/26/2013 Office visit Sean Marie MD 06/26/2013 [facility] Michelle Greco MD 06/21/2013 Office visit Kiarra Ramos COMMERCIAL CENTER MANAGER 05/31/2013 Office visit Leena Haddad COMMERCIAL CENTER MANAGER 05/10/2013 Office visit Leena Haddad COMMERCIAL CENTER MANAGER 05/03/2013 Office visit Leena Haddad COMMERCIAL CENTER MANAGER 03/27/2013 Office visit Kiarra Ramos COMMERCIAL CENTER MANAGER 03/05/2013 Office visit Kiarra Ramos COMMERCIAL CENTER MANAGER 02/27/2013 Office visit Kiarra Ramos COMMERCIAL CENTER MANAGER 01/08/2013 Office visit Sean Marie MD 10/30/2012 Office visit Sean Marie MD 04/26/2012 Nurse visit Maria Antonia Barakat COMMERCIAL CENTER MANAGER 02/07/2012 Office visit Sean Marie MD 02/07/2012 [facility] Marcela Greco MD 12/13/2011 Office visit Sean [...]
--- OUTSIDE RECORDS SUMMARY | 2018-07-18 13:42 | XMS REPORT ---
Author Author Sean Marie [facility] Address [address] [place], [place] [address] Care Team Providers Care Manager Shipping Name Role Phone Sean Marie PCP Unavailable [...] TABLET BY MOUTH EVERY DAY AT BEDTIME [place] Thyroid oral tablet 60 mg 04/07/2014 TAKE ONE TABLET BY MOUTH ONCE DAILY Zofran ODT oral lovastatin oral tablet 40 mg 06/12/2014 take 1 tablet by oral route daily [place] Thyroid oral tablet 60 mg 08/04/2014 TAKE [...] daily at the same time each day Vibramycin oral capsule 100 mg 01/26/2015 02/09/2015 take 1 capsule (100 mg) by oral route every 12 hours for 14 days Name Start Date Expiration [...] once daily at bedtime for 30 days [place] Thyroid oral tablet 60 mg 12/02/2013 04/01/2014 [...] by inhalation route 2 times a day [place] oral tablet 5-325 mg 08/22/2014 11/24/2014 take [...] HC BMI BSA BMI Percentile O2 Sat(%) 01/26/2015 3:23:00 PM 121 mmHg 84 mmHg [...] THYROID STIM HORMONE Reviewed 02/07/2012 12:00 AM ELECTROCARDIOGRAM COMPLETE Reviewed [...] 0.40 mg/ dLCALCIUM 9.80 mg/dLeGFR >60 mL/min/1.73 [id number] 250.0 mg/dLCHOLESTEROL 180.0 mg/dLHDL 39.0 mg/dLLDL (CALC) [...] Vis Given Vis Pub CVX Tdap 04/26/2012 [employer] SKB ADACEL [id number] Intramuscular Left Arm 04/26/2012 08/19/2008 115 Tdap 03/14/2014 [employer] SKB BOOSTRIX [id number] Intramuscular Left Deltoid 03/14/2014 [...] 3:24PM Suture granuloma Jan 26 2015 3:24PM Payers Insurance Name Company Name Plan Name Plan Number Policy Number Policy Group Number Start Date [facility] [id number] September [employer] Financial Assistance [facility] Financial Alex 40 percent clinic October [facility] [id number] Tuesday, August 30, 2011 [facility] [id number] November State Self Insurance Fund State Self Insurance Fund [id number] N/A State Self Insurance Fund State Self Insurance Fund [id number] N/A [employer]cbs [employer] [facility] [id number] July History of Encounters Visit Date Visit Type Provider 01/26/2015 Office visit Leena Haddad FISHING BOAT MATE 01/12/2015 Office visit Sean Marie MD 11/24/2014 Office visit Kiarra Ramos FISHING BOAT MATE 10/22/2014 Office visit Miguel A Munoz FISHING BOAT MATE 08/22/2014 Office visit Sean Marie MD 08/01/2014 Office visit Sean Marie MD 06/09/2014 Office visit Kiarra Ramos FISHING BOAT MATE 03/14/2014 Office visit Leena Haddad FISHING BOAT MATE 02/27/2014 Office visit Leena Haddad FISHING BOAT MATE 12/02/2013 Office visit Sean Marie MD 11/25/2013 Office visit Sean Marie MD 11/14/2013 Office visit Kiarra Ramos FISHING BOAT MATE 08/21/2013 Office visit Leena Haddad FISHING BOAT MATE 08/09/2013 Office visit Kiarra Ramos FISHING BOAT MATE 06/26/2013 Office visit Sean Marie MD 06/26/2013 Hospital Michelle Greco MD 06/21/2013 Office visit Kiarra Ramos FISHING BOAT MATE 05/31/2013 Office visit Leena Haddad FISHING BOAT MATE 05/10/2013 Office visit Leena Haddad FISHING BOAT MATE 05/03/2013 Office visit Leena Haddad FISHING BOAT MATE 03/27/2013 Office visit Kiarra Ramos FISHING BOAT MATE 03/05/2013 Office visit Kiarra Ramos FISHING BOAT MATE 02/27/2013 Office visit Kiarra Ramos FISHING BOAT MATE 01/08/2013 Office visit Sean Marie MD 10/30/2012 Office visit Sean Marie MD 04/26/2012 Nurse visit Maria Antonia Barakat FISHING BOAT MATE 02/07/2012 Office visit Sean Marie MD 02/07/2012 Hospital Michelle Greco MD 12/13/2011 Office visit Sean Marie MD 11/08/2011 Office visit Sean Marie MD 10/24/2011 Office visit Sean Marie MD 08/05/2011 Office visit Sean Marie MD 07/12/2011 Office visit Kiarra Ramos FISHING BOAT MATE 05/11/2011 Office visit Sean Marie MD 04/19/2011 [...]
--- OUTSIDE RECORDS SUMMARY | 2018-07-18 13:46 | XMS REPORT ---
Author Author Sean Marie [facility] Address [address] [place], [place] [id number] Care Team Providers Care Sweat Band Sewer Name Role Phone Sean Marie PCP Unavailable [...] TABLET BY MOUTH EVERY DAY AT BEDTIME [place] Thyroid 60 mg oral tablet 04/07/2014 TAKE ONE TABLET BY MOUTH ONCE DAILY lovastatin 40 mg oral tablet 06/12/2014 take 1 tablet by oral route daily [place] Thyroid 60 mg oral tablet 08/04/2014 TAKE [...] TABLET BY MOUTH ONCE DAILY AT BEDTIME [place] Thyroid 60 mg oral tablet 07/13/2015 TAKE [...] TABLET BY MOUTH ONCE DAILY AT BEDTIME [place] Thyroid 60 mg oral tablet 07/11/2016 TAKE [...] once daily at bedtime for 30 days [place] Thyroid 60 mg oral tablet 12/02/2013 04/01/2014 [...] by oral route once daily at bedtime [place] 5-325 mg oral tablet 08/22/2014 11/24/2014 [...] Decadron, Per [address] [facility]# [id number] Reviewed 08/25/2015 12:00 AM Depo-Medrol, Per [address] [facility]#[id number] Reviewed 08/25/2015 12:00 AM Rocephin [address] [facility]#[id number] Reviewed 10/09/2015 12:00 AM COMPLETE CBC W/AUTO DIFF WBC Reviewed 10/09/2015 12:00 AM COMPREHEN METABOLIC PANEL Reviewed 10/09/2015 12:00 AM GLYCOSYLATED HEMOGLOBIN TEST Reviewed 10/09/2015 12:00 AM ASSAY THYROID STIM HORMONE Reviewed 11/03/2015 8:54 AM URINALYSIS AUTO W/O SCOPE Reviewed 11/03/2015 12:[address] HEAD/BRAIN W/O & W/DYE Reviewed 11/17/2015 12:00 AM Rocephin [address] [facility]#[id number] Reviewed 08/05/2011 12:00 AM CHEST X-RAY 2VW FRONTAL&LATL Reviewed 12/09/2015 12:00 AM THER/PROPH/DIAG INJ SC/IM Reviewed 12/09/2015 12:00 AM Rocephin [address] [facility]#[id number] Reviewed 11/08/2011 12:00 AM Decadron Inj. per 1mg-[facility] [id number] Reviewed 11/08/2011 12:00 AM Depo-Medrol [address] [facility] [id number] Reviewed 05/20/2016 12:00 AM COMPLETE CBC W/AUTO [...] Decadron, Per [address] [facility]# [id number] Reviewed 10/30/2012 12:00 AM COMPLETE CBC W/AUTO DIFF WBC Reviewed 10/30/2012 12:00 AM COMPREHEN METABOLIC PANEL Reviewed 10/30/2012 12:00 AM LIPID PANEL Reviewed 10/30/2012 12:00 AM ASSAY THYROID STIM HORMONE Reviewed 01/08/2013 12:00 AM Depo-Medrol 80 Mg Im/C'pancho Reviewed 01/08/2013 12:00 AM Decadron, Per [address] [facility]# [id number] Reviewed 01/08/2013 12:00 AM Rocephin [address] [facility]#[id number] Reviewed 01/08/2013 12:00 AM COMPREHEN METABOLIC PANEL Reviewed 01/08/2013 12:00 AM GLYCOSYLATED HEMOGLOBIN TEST Reviewed 01/08/2013 12:00 AM ASSAY THYROID STIM HORMONE Reviewed 01/08/2013 12:00 AM ASSAY OF PARATHORMONE Reviewed 01/08/2013 12:00 AM LIPID PANEL Reviewed 02/27/2013 12:00 AM THER/PROPH/DIAG INJ SC/IM Reviewed 02/27/2013 12:00 AM Decadron, Per [address] [facility]# [id number] Reviewed 02/27/2013 12:00 AM Depo-Medrol, Per [address] [facility]#[id number] Reviewed 03/04/2013 12:00 AM MAMMOGRAM SCREENING Reviewed 03/05/2013 12:00 AM CYTOPATH TBS C/V MANUAL Reviewed 03/05/2013 12:00 AM MAMMOGRAM BOTH BREASTS Reviewed 03/27/2013 12:00 AM THER/PROPH/DIAG INJ SC/IM Reviewed 03/27/2013 12:00 AM Bicillin CR, 1.2 million units [facility]# [id number] Reviewed 05/10/2013 12:00 AM X-RAY EXAM KNEE [...] Decadron, Per [address] [facility]# [id number] Reviewed 08/09/2013 12:00 AM Depo-Medrol, Per [address] [facility]#[id number] Reviewed 08/21/2013 12:00 AM X-RAY EXAM OF [...] AM Rocephin [address] [facility]#[id number] Reviewed 04/01/2015 12:00 AM COMPLETE CBC W/AUTO DIFF WBC Reviewed 04/01/2015 12:00 AM COMPREHEN METABOLIC PANEL Reviewed 04/01/2015 12:00 AM ASSAY THYROID STIM HORMONE Reviewed 04/01/2015 12:00 AM CHEST X-RAY 2VW FRONTAL&LATL Reviewed 05/07/2015 12:00 AM THER/PROPH/DIAG INJ SC/IM Reviewed 05/07/2015 12:00 AM Decadron injection Reviewed 05/07/2015 12:00 AM Depo-Medrol 40mg Reviewed 05/11/2011 12:00 AM Depo-Medrol [address] [facility] [id number] Reviewed 05/11/2011 12:00 AM Decadron Inj. per 1mg-[facility] [id number] Reviewed Results Summary Date and Description Results [...] Vis Given Vis Pub CVX Tdap 04/26/2012 GlaxNativoo SKB ADACEL [id number] Intramuscular Left Arm 04/26/2012 08/19/2008 115 Tdap 03/14/2014 OLED-T SKB BOOSTRIX [id number] Intramuscular Left Deltoid 03/14/2014 02/07/2013 115 Influenza 06/22/2015 [employer]. NOV Fluvirin [id number] Intramuscular Left Deltoid 06/23/2015 05/08/2015 140 Pneumococcal [...] Low Back Pain Mar 20 2017 2:30PM Payers Insurance Name Company Name Plan Name Plan Number Policy Number Policy Group Number Start Date BCBS [facility] [id number] September [facility] Financial Assistance [facility] Financial Alex 40 percent clinic October BCBS Bcbs [facility] [id number] Friday, October 02, 2009 BCBS Bcbs [facility] [id number] November [employer] Self Insurance Fund *INVALID State Self Insurance [id number] N/A [employer] Self Insurance Fund *INVALID State Self Insurance [id number] N/A BCBS [employer] [place] [id number] July History of Encounters Visit Date Visit Type Provider 03/20/2017 Office visit Sean Marie MD 03/03/2017 Office visit Aurora Martin OCCUPATIONAL NURSE 01/09/2017 Office visit Sean Marie MD 01/02/2017 [...] Sean Marie MD 02/25/2016 Office visit Sean aMrie MD 01/16/2016 Office visit Jania Stanley OCCUPATIONAL NURSE 01/07/2016 Hospital Michelle Greco MD 12/31/2015 Office visit Sean Marie MD 12/09/2015 Office visit Miguel A Munoz OCCUPATIONAL NURSE 11/17/2015 Office visit Sean Marie MD 11/03/2015 Office visit Sean Marie MD 10/09/2015 Office visit 10/09/2015 Office visit Sean Marie MD 08/31/2015 Office visit Sean Marie MD 08/25/2015 Office visit Sean Marie MD 06/05/2015 Office visit Sean Marie MD 05/07/2015 Office visit Amaris Gentile OCCUPATIONAL NURSE 05/06/2015 Office visit Kiarra Ramos OCCUPATIONAL NURSE 04/01/2015 Office visit 04/01/2015 Office visit Sean Marie MD 04/01/2015 Hospital Michelle Greco MD 03/26/2015 Office visit Sean Marie MD 03/19/2015 Office visit Sean Marie MD 02/13/2015 Office visit Sean Marie MD 01/26/2015 Office visit Leena Haddad OCCUPATIONAL NURSE 01/12/2015 Office visit Sean Marie MD 11/24/2014 Office visit Kiarra Ramos OCCUPATIONAL NURSE 10/22/2014 Office visit Miguel A Munoz OCCUPATIONAL NURSE 08/22/2014 Office visit Sean Marie MD 08/01/2014 Office visit Sean Marie MD 06/09/2014 Office visit Kiarra Ramos OCCUPATIONAL NURSE 03/14/2014 Office visit Leena Haddad OCCUPATIONAL NURSE 02/27/2014 Office visit Leena Haddad OCCUPATIONAL NURSE 12/02/2013 Office visit Sean Marie MD 11/25/2013 Office visit Sean Marie MD 11/14/2013 Office visit Kiarra Ramos OCCUPATIONAL NURSE 08/21/2013 Office visit Leenaallison Haddad OCCUPATIONAL NURSE 08/09/2013 Office visit Kiarra Richard OCCUPATIONAL NURSE 06/26/2013 Hospital Michelle Greco MD 06/26/2013 Office visit Sean Marie MD 06/21/2013 Office visit Kiarra Ramos OCCUPATIONAL NURSE 05/31/2013 Office visit Leenaallison Haddad OCCUPATIONAL NURSE 05/10/2013 Office visit Leena Haddad OCCUPATIONAL NURSE 05/03/2013 Office visit Leena Haddad OCCUPATIONAL NURSE 03/27/2013 Office visit Kiarra Ramos OCCUPATIONAL NURSE 03/05/2013 Office visit Kiarra Ramos OCCUPATIONAL NURSE 02/27/2013 Office visit Kiarra Ramos OCCUPATIONAL NURSE 01/08/2013 Office visit Sean Marie MD 10/30/2012 Office visit Sean Marie MD 04/26/2012 Nurse visit Maria Antonia Barakat OCCUPATIONAL NURSE 02/07/2012 Office visit Sean Marie MD 02/07/2012 [facility] Michelle Greco MD 12/13/2011 Office visit Sean Marie MD 11/08/2011 Office visit Sean Marie MD 10/24/2011 Office visit Sean Marie MD 08/05/2011 Office visit Sean Marie MD 07/12/2011 Office visit Kiarra Ramos OCCUPATIONAL NURSE 05/11/2011 Office visit Sean Marie MD 04/19/2011 [...]
--- OUTSIDE RECORDS SUMMARY | 2018-07-18 13:49 | XMS REPORT ---
Author Author Jania Stanley [facility] Address [address] [place], [place] [id number] Care Team Providers Care Roundsman Name Role Phone Jania Stanley PCP Unavailable Allergies and Adverse Reactions Name [...] TABLET BY MOUTH EVERY DAY AT BEDTIME [place] Thyroid 60 mg oral tablet 04/07/2014 TAKE ONE TABLET BY MOUTH ONCE DAILY lovastatin 40 mg oral tablet 06/12/2014 take 1 tablet by oral route daily [place] Thyroid 60 mg oral tablet 08/04/2014 TAKE [...] TAKE ONE TABLET BY MOUTH ONCE DAILY [place] Thyroid 60 mg oral tablet 07/13/2015 TAKE [...] 2 times per day for 7 days Name Start Date Expiration [...] once daily at bedtime for 30 days [place] Thyroid 60 mg oral tablet 12/02/2013 04/01/2014 [...] by oral route once daily at bedtime [place] 5-325 mg oral tablet 08/22/2014 11/24/2014 take [...] HC BMI BSA BMI Percentile O2 Sat(%) 01/16/2016 10:58:00 AM 136 mmHg 76 mmHg [...] 08/25/2015 12:00 AM Decadron, Per 1 Mg [facility] [place]# [address]-10 Reviewed 08/25/2015 12:00 AM Depo-Medrol, Per 80 Mg [facility] [place]#[address]-29 Reviewed 08/25/2015 12:00 AM Rocephin 1 gram [facility] [place] 2]#0589-2135-11 Reviewed 10/09/2015 12:00 AM COMPLETE CBC W/AUTO DIFF WBC Reviewed 10/09/2015 12:00 AM COMPREHEN METABOLIC PANEL Reviewed 10/09/2015 12:00 AM GLYCOSYLATED HEMOGLOBIN TEST Reviewed 10/09/2015 12:00 AM ASSAY THYROID STIM HORMONE Reviewed 11/03/2015 8:54 AM URINALYSIS AUTO W/O SCOPE Reviewed 11/03/2015 12:[address] HEAD/BRAIN W/O & W/DYE Reviewed 11/17/2015 12:00 AM Rocephin 1 gram [facility] [place]]#2865-9037-88 Reviewed 08/05/2011 12:00 AM CHEST X-RAY 2VW FRONTAL&LATL Reviewed 12/09/2015 12:00 AM THER/PROPH/DIAG INJ SC/IM Reviewed 12/09/2015 12:00 AM Rocephin 1 gram [facility] [place]]#5288-5802-37 Reviewed 12/13/2011 12:00 AM X-RAY EXAM OF [...] 10/30/2012 12:00 AM Decadron, Per 1 Mg [facility] [place]# [address]-43 Reviewed 10/30/2012 12:00 AM COMPLETE CBC W/AUTO DIFF WBC Reviewed 10/30/2012 12:00 AM COMPREHEN METABOLIC PANEL Reviewed 10/30/2012 12:00 AM LIPID PANEL Reviewed 10/30/2012 12:00 AM ASSAY THYROID STIM HORMONE Reviewed 01/08/2013 12:00 AM Depo-Medrol 80 Mg Im/C'pancho Reviewed 01/08/2013 12:00 AM Decadron, Per 1 Mg [facility] [place]# [address]-22 Reviewed 01/08/2013 12:00 AM Rocephin 1 gram [facility] [place]]#6760-6083-15 Reviewed 01/08/2013 12:00 AM COMPREHEN METABOLIC PANEL Reviewed 01/08/2013 12:00 AM GLYCOSYLATED HEMOGLOBIN TEST Reviewed 01/08/2013 12:00 AM ASSAY THYROID STIM HORMONE Reviewed 01/08/2013 12:00 AM ASSAY OF PARATHORMONE Reviewed 01/08/2013 12:00 AM LIPID PANEL Reviewed 02/27/2013 12:00 AM THER/PROPH/DIAG INJ SC/IM Reviewed 02/27/2013 12:00 AM Decadron, Per 1 Mg [facility] [place]# [address]-83 Reviewed 02/27/2013 12:00 AM Depo-Medrol, Per 80 Mg [facility] [place] 2]#5133-4273-19 Reviewed 03/04/2013 12:00 AM MAMMOGRAM SCREENING Returned 03/05/2013 12:00 AM CYTOPATH TBS C/V MANUAL Returned 03/05/2013 12:00 AM MAMMOGRAM BOTH BREASTS Returned 03/27/2013 12:00 AM THER/PROPH/DIAG INJ SC/IM Reviewed 03/27/2013 12:00 AM Bicillin CR, 1.2 million units [facility] [place]# 44928-834-16 Reviewed 05/10/2013 12:00 AM X-RAY EXAM KNEE [...] 08/09/2013 12:00 AM Decadron, Per 1 Mg [facility] [place]# [address]-48 Reviewed 08/09/2013 12:00 AM Depo-Medrol, Per 80 Mg [facility] [place] 2]#2407-0859-11 Reviewed 08/21/2013 12:00 AM X-RAY EXAM OF [...] Reviewed 03/26/2015 12:00 AM Rocephin 1 gram [facility] [place]]#8603-0845-75 Reviewed 04/01/2015 12:00 AM COMPLETE CBC W/AUTO DIFF WBC Reviewed 04/01/2015 12:00 AM COMPREHEN METABOLIC PANEL Reviewed 04/01/2015 12:00 AM ASSAY THYROID STIM HORMONE Reviewed 04/01/2015 12:00 AM CHEST X-RAY 2VW FRONTAL&LATL Reviewed 05/07/2015 12:00 AM THER/PROPH/DIAG INJ SC/IM Reviewed 05/07/2015 12:00 AM Decadron injection Reviewed 05/07/2015 12:00 AM Depo-Medrol 40mg Reviewed 05/11/2011 12:00 AM Depo-Medrol 80 Mg [facility] [place] [id number] Reviewed 05/11/2011 12:00 AM Decadron Inj. per 1mg-[facility] [id number]-Qftulkaea Reviewed Results Summary Data and Description Results [...] 12.90 g/dLHCT 41.40 %MCV 87.0 fLMCH 27.0 pgHC 31.20 g/dLRDW CV 14.90 %MPV 11.10 fLPLT [...] 0.40 mg/ dLCALCIUM 9.80 mg/dLeGFR >60 mL/min/1.73 [id number] 250.0 mg/dLCHOLESTEROL 180.0 mg/dLHDL 39.0 mg/dLLDL (CALC) [...] Vis Given Vis Pub CVX Tdap 04/26/2012 [employer] SKB ADACEL [id number] Intramuscular Left Arm 04/26/2012 08/19/2008 115 Tdap 03/14/2014 [employer] SKB BOOSTRIX [id number] Intramuscular Left Deltoid 03/14/2014 02/07/2013 115 Influenza 06/22/2015 [facility] Pamela. NOV Fluvirin [id number] Intramuscular Left Deltoid 06/23/2015 05/08/2015 140 History [...] 2:40PM Allergic reaction Jan 16 2016 11:00AM Payers Insurance Name Company Name Plan Name Plan Number Policy Number Policy Group Number Start Date BCBS [facility]bs [facility] [id number] September [place] [facility] Financial Assistance [facility] Financial Alex 40 percent clinic October BCBS [employer] [facility] [id number] Tuesday, August 30, 2011 BCBS [employer] [facility] [id number] November [employer] Self Insurance Fund *INVALID State Self Insurance [id number] N/A [employer]State Self Insurance Fund *INVALID State Self Insurance [id number] N/A BCBS [employer] [facility] [id number] July History of Encounters Visit Date Visit Type Provider 01/16/2016 Office visit Jania Stanley APRN 12/31/2015 Office visit Sean Marie MD 12/09/2015 Office visit Miguel A Munoz LEGAL RECRUITER 11/17/2015 Office visit eSan Marie MD 11/03/2015 Office visit Sean Marie MD 10/09/2015 Office visit 10/09/2015 Office visit Sean Marie MD 08/31/2015 Office visit Sean Marie MD 08/25/2015 Office visit Sean Marie MD 06/05/2015 Office visit Sean Marie MD 05/07/2015 Office visit Amaris Gentile LEGAL RECRUITER 05/06/2015 Office visit Kiarra Ramos LEGAL RECRUITER 04/01/2015 Office visit 04/01/2015 Office visit Sean Marie MD 04/01/2015 [facility] Michelle Greco MD 03/26/2015 Office visit Sean Marie MD 03/19/2015 Office visit Sean Marie MD 02/13/2015 Office visit Sean Marie MD 01/26/2015 Office visit Leena Haddad LEGAL RECRUITER 01/12/2015 Office visit Sean Marie MD 11/24/2014 Office visit Kiarra Ramos LEGAL RECRUITER 10/22/2014 Office visit Miguel A Munoz LEGAL RECRUITER 08/22/2014 Office visit Sean Marie MD 08/01/2014 Office visit Sean Marie MD 06/09/2014 Office visit Kiarra Ramos LEGAL RECRUITER 03/14/2014 Office visit Leena Haddad LEGAL RECRUITER 02/27/2014 Office visit Leena Haddad LEGAL RECRUITER 12/02/2013 Office visit Sean Marie MD 11/25/2013 Office visit Sean Marie MD 11/14/2013 Office visit Kiarra Ramos LEGAL RECRUITER 08/21/2013 Office visit Leena Haddad LEGAL RECRUITER 08/09/2013 Office visit Kiarra Ramos LEGAL RECRUITER 06/26/2013 Hospital Michelle Greco MD 06/26/2013 Office visit Sean Marie MD 06/21/2013 Office visit Kiarra Ramos LEGAL RECRUITER 05/31/2013 Office visit Leena Haddad LEGAL RECRUITER 05/10/2013 Office visit Leena Haddad LEGAL RECRUITER 05/03/2013 Office visit Leena Haddad LEGAL RECRUITER 03/27/2013 Office visit Kiarra Ramos LEGAL RECRUITER 03/05/2013 Office visit Kiarra Ramos LEGAL RECRUITER 02/27/2013 Office visit Kiarra Ramos LEGAL RECRUITER 01/08/2013 Office visit Sean Marie MD 10/30/2012 Office visit Sean Marie MD 04/26/2012 Nurse visit Maria Antonia Barakat LEGAL RECRUITER 02/07/2012 Office visit Sean Marie MD 02/07/2012 [...]
--- OUTSIDE RECORDS SUMMARY | 2018-07-18 13:51 | XMS REPORT ---
Author Author Sean Marie [facility] Address [address] [place], [place] [address] Care Team Providers Care Subassembly Supervisor Name Role Phone Sean Marie PCP Unavailable Sean Marie PreferredProvider Unavailable Allergies and Adverse Reactions Name Reaction Notes Albuterol tachycardia increases heart rate too much Percocet "head crawling" Adhesive Tape Plan of Treatment Planned Activity Comments Planned Date Planned Time Plan/Goal Flu vaccine, 3yrs & older, Quadrivalent (multi-dose vial) 07/07/2017 12:00 AM CBC With Auto Differential 01/08/2013 12:00 AM EKG (12-lead electrocardiogram) 06/26/2013 12:00 AM EKG (12-lead electrocardiogram) 04/01/2015 12:00 AM Medications Active Name Start Date Estimated Completion Date SIG Comments pravastatin 20 mg oral tablet 02/03/2014 TAKE ONE TABLET BY MOUTH EVERY DAY AT BEDTIME [place] Thyroid 60 mg oral tablet 04/07/2014 TAKE ONE TABLET BY MOUTH ONCE DAILY lovastatin 40 mg oral tablet 06/12/2014 take 1 tablet by oral route daily [place] Thyroid 60 mg oral tablet 08/04/2014 TAKE [...] TABLET BY MOUTH ONCE DAILY AT BEDTIME [place] Thyroid 60 mg oral tablet 07/13/2015 TAKE [...] TAKE ONE TABLET BY MOUTH ONCE DAILY [place] Thyroid 60 mg oral tablet 07/11/2016 TAKE [...] once daily at bedtime for 30 days [place] Thyroid 60 mg oral tablet 12/02/2013 04/01/2014 [...] by oral route once daily at bedtime [place] 5-325 mg oral tablet 08/22/2014 11/24/2014 take [...] HC BMI BSA BMI Percentile O2 Sat(%) 07/07/2017 8:42:00 AM 152 mmHg 76 mmHg [...] Per [address] [facility]# [address]-41 Reviewed 08/25/2015 12:00 AM Depo-Medrol, Per [address] [facility]#[address]-31 Reviewed 08/25/2015 12:00 AM Rocephin [address] [facility]#4095-9727-39 Reviewed 10/09/2015 12:00 AM COMPLETE CBC W/AUTO DIFF WBC Reviewed 10/09/2015 12:00 AM COMPREHEN METABOLIC PANEL Reviewed 10/09/2015 12:00 AM GLYCOSYLATED HEMOGLOBIN TEST Reviewed 10/09/2015 12:00 AM ASSAY THYROID STIM HORMONE Reviewed 11/03/2015 8:54 AM URINALYSIS AUTO W/O SCOPE Reviewed 11/03/2015 12:[address] HEAD/BRAIN W/O & W/DYE Reviewed 11/17/2015 12:00 AM Rocephin [address] [facility]#1945-4481-39 Reviewed 08/05/2011 12:00 AM CHEST X-RAY 2VW FRONTAL&LATL Reviewed 12/09/2015 12:00 AM THER/PROPH/DIAG INJ SC/IM Reviewed 12/09/2015 12:00 AM Rocephin [address] [facility]#7512-7159-85 Reviewed 11/08/2011 12:00 AM Decadron Inj. per 1mg-[facility] [id number]-Alrwtnycn Reviewed 11/08/2011 12:00 AM Depo-Medrol [address] [facility] [id number]-Dyokpimli Reviewed 05/20/2016 12:00 AM COMPLETE CBC W/AUTO [...] 06/16/2017 12:00 AM ASSAY OF MAGNESIUM Returned 10/30/2012 12:00 AM Depo-Medrol 80 Mg Im/C'pancho Reviewed 10/30/2012 12:00 AM Decadron, Per [address] [facility]# [address]-93 Reviewed 10/30/2012 12:00 AM COMPLETE CBC W/AUTO DIFF WBC Reviewed 10/30/2012 12:00 AM COMPREHEN METABOLIC PANEL Reviewed 10/30/2012 12:00 AM LIPID PANEL Reviewed 10/30/2012 12:00 AM ASSAY THYROID STIM HORMONE Reviewed 01/08/2013 12:00 AM Depo-Medrol 80 Mg Im/C'pancho Reviewed 01/08/2013 12:00 AM Decadron, Per [address] [facility]# [address]-32 Reviewed 01/08/2013 12:00 AM Rocephin [address] [facility]#2209-3107-09 Reviewed 01/08/2013 12:00 AM COMPREHEN METABOLIC PANEL Reviewed 01/08/2013 12:00 AM GLYCOSYLATED HEMOGLOBIN TEST Reviewed 01/08/2013 12:00 AM ASSAY THYROID STIM HORMONE Reviewed 01/08/2013 12:00 AM ASSAY OF PARATHORMONE Reviewed 01/08/2013 12:00 AM LIPID PANEL Reviewed 02/27/2013 12:00 AM THER/PROPH/DIAG INJ SC/IM Reviewed 02/27/2013 12:00 AM Decadron, Per [address] [facility]# [address]-51 Reviewed 02/27/2013 12:00 AM Depo-Medrol, Per [address] [facility]#8205-2891-30 Reviewed 03/04/2013 12:00 AM MAMMOGRAM SCREENING Reviewed 03/05/2013 12:00 AM CYTOPATH TBS C/V MANUAL Reviewed 03/05/2013 12:00 AM MAMMOGRAM BOTH BREASTS Reviewed 03/27/2013 12:00 AM THER/PROPH/DIAG INJ SC/IM Reviewed 03/27/2013 12:00 AM Bicillin CR, 1.2 million units [facility]# 40359-266-75 Reviewed 05/10/2013 12:00 AM X-RAY EXAM KNEE [...] Per [address] [facility]# [address]-61 Reviewed 08/09/2013 12:00 AM Depo-Medrol, Per [address] [facility]#3313-3748-84 Reviewed 08/21/2013 12:00 AM X-RAY EXAM OF [...] Rocephin [address] [facility]#8192-4941-99 Reviewed 04/01/2015 12:00 AM COMPLETE CBC W/AUTO DIFF WBC Reviewed 04/01/2015 12:00 AM COMPREHEN METABOLIC PANEL Reviewed 04/01/2015 12:00 AM ASSAY THYROID STIM HORMONE Reviewed 04/01/2015 12:00 AM CHEST X-RAY 2VW FRONTAL&LATL Reviewed 05/07/2015 12:00 AM THER/PROPH/DIAG INJ SC/IM Reviewed 05/07/2015 12:00 AM Decadron injection Reviewed 05/07/2015 12:00 AM Depo-Medrol 40mg Reviewed 05/11/2011 12:00 AM Depo-Medrol [address] [facility] [id number] Reviewed 05/11/2011 12:00 AM Decadron Inj. per 1mg-[facility] [id number]-Egatfkdgu Reviewed Results Summary Date and Description Results [...] Vis Given Vis Pub CVX Tdap 04/26/2012 [employer] SKB ADACEL [id number] Intramuscular Left Arm 04/26/2012 08/19/2008 115 Tdap 03/14/2014 GlaxoSmithKline SKB BOOSTRIX [id number] Intramuscular Left Deltoid 03/14/2014 02/07/2013 115 Influenza 06/22/2015 [facility] Pamela. NOV Fluvirin [id number] Intramuscular Left Deltoid 06/23/2015 05/08/2015 140 Pneumococcal [...] 2017 8:53AM Depression Jul 07 2017 8:53AM Payers Insurance Name Company Name Plan Name Plan Number Policy Number Policy Group Number Start Date [employer]BS [employer] [facility] [place] [id number] September [place] [employer] Alex 40 percent clinic October [employer] [place] [id number] Friday, October 02, 2009 [employer]BS [employer] [place] [id number] November [employer]State Self Insurance Fund *INVALID State Self Insurance [id number] N/A [facility] Self Insurance Fund *INVALID State Self Insurance [id number] N/A BCBS [employer] [place] [id number] July History of Encounters Visit Date Visit Type Provider 07/07/2017 Office visit Sean Marie MD 06/16/2017 [...] Marie MD 01/16/2016 Office visit Jania Stanley POWDER CARRIER 01/07/2016 Hospital Michelle Greco MD 12/31/2015 Office visit Sean Marie MD 12/09/2015 Office visit Miguel A Munoz POWDER CARRIER 11/17/2015 Office visit Sean Marie MD 11/03/2015 Office visit Sean Marie MD 10/09/2015 Office visit 10/09/2015 Office visit Sean Marie MD 08/31/2015 Office visit Sean Marie MD 08/25/2015 Office visit Sean Marie MD 06/05/2015 Office visit Sean Marie MD 05/07/2015 Office visit Amaris Gentile POWDER CARRIER 05/06/2015 Office visit Kiarra Ramos POWDER CARRIER 04/01/2015 Office visit 04/01/2015 Office visit Sean Marie MD 04/01/2015 Hospital Michelle Greco MD 03/26/2015 Office visit Sean Marie MD 03/19/2015 Office visit Sean Marie MD 02/13/2015 Office visit Sean Marie MD 01/26/2015 Office visit Leena Haddad POWDER CARRIER 01/12/2015 Office visit Sean Marie MD 11/24/2014 Office visit Kiarra Ramos POWDER CARRIER 10/22/2014 Office visit Miguel A Munoz POWDER CARRIER 08/22/2014 Office visit Sean Marie MD 08/01/2014 Office visit Sean Marie MD 06/09/2014 Office visit Kiarra Ramos POWDER CARRIER 03/14/2014 Office visit Leena Haddad POWDER CARRIER 02/27/2014 Office visit Leena Haddad POWDER CARRIER 12/02/2013 Office visit Sean Marie MD 11/25/2013 Office visit Sean Marie MD 11/14/2013 Office visit Kiarra Ramos POWDER CARRIER 08/21/2013 Office visit Leena Haddad POWDER CARRIER 08/09/2013 Office visit Kiarra Ramos POWDER CARRIER 06/26/2013 Hospital Michelle Greco MD 06/26/2013 Office visit Sean Marie MD 06/21/2013 Office visit Kiarra Richard POWDER CARRIER 05/31/2013 Office visit Leena Haddad POWDER CARRIER 05/10/2013 Office visit Leena Haddad POWDER CARRIER 05/03/2013 Office visit Leena Haddad POWDER CARRIER 03/27/2013 Office visit Kiarra Ramos POWDER CARRIER 03/05/2013 Office visit Kiarra Ramos POWDER CARRIER 02/27/2013 Office visit Kiarra Richard POWDER CARRIER 01/08/2013 Office visit Sean Marie MD 10/30/2012 Office visit Sean Marie MD 04/26/2012 Nurse visit Maria Antonia Barakat POWDER CARRIER 02/07/2012 Office visit Sean Marie MD 02/07/2012 [facility] Michelle Greco MD 12/13/2011 Office visit Sean Marie MD 11/08/2011 Office visit Sean Marie MD 10/24/2011 Office visit Sean Marie MD 08/05/2011 Office visit Sean Marie MD 07/12/2011 Office visit Kiarra Ramos POWDER CARRIER 05/11/2011 Office visit Sean Marie MD 04/19/2011 Office visit Sean Marie MD 03/17/2011 Office visit Sean Marie MD 03/03/2011 Office visit Sean Marie MD 07/12/2010 Office visit Maggie CH 05/11/2010 Office visit Sean Marie MD 03/15/2010 Office visit Sean aMrie MD 03/03/2010 Office visit Sean Marie MD 02/08/2010 Office visit Sean Marie MD 08/21/2009 Laboratory Sean Marie MD 08/21/2009 Voided Sean Marie MD 07/27/2009 Office visit Sean Marie MD 07/06/2009 Nurse visit Sean Marie MD
--- OUTSIDE RECORDS SUMMARY | 2018-07-18 13:54 | XMS REPORT ---
Author Author Fredis Rico Organization [facility] Address [address] [place] [id number] Care Team Providers Care Band Saw Runner Name Role Phone Fredis Rico PCP Sean [...] once daily at bedtime for 30 days [employer] Thyroid 60 mg oral tablet 07/31/2017 07/31/2017 [...] by oral route 2 times per day [place] Thyroid 60 mg oral tablet 12/02/2013 take 1 tablet by oral route daily for 30 days [place] Thyroid 60 mg oral tablet 04/07/2014 TAKE ONE TABLET BY MOUTH ONCE DAILY milk thistle oral 11/24/2014 chromium picolinate oral 06/09/2014 Zofran ODT oral 10/09/2015 Dexilant 60 mg oral capsule,biphase delayed releas 07/09/2014 11/24/2014 TAKE ONE CAPSULE BY MOUTH EVERY DAY [place] Thyroid 60 mg oral tablet 08/04/2014 TAKE [...] by oral route once daily at bedtime [place] 5-325 mg oral tablet 08/22/2014 11/24/2014 take [...] by topical route 2 times per day [place] Thyroid 60 mg oral tablet 07/13/2015 TAKE [...] daily in the morning for 30 days [place] Thyroid 60 mg oral tablet 07/11/2016 08/09/2017 [...] 08/25/2015 12:00 AM Decadron, Per 1 Mg [facility]# [id number] Reviewed 08/25/2015 12:00 AM Depo-Medrol, Per 80 Mg [facility]#[address]-53 Reviewed 08/25/2015 12:00 AM Rocephin 1 gram [facility]#[id number] Reviewed 10/09/2015 12:00 AM COMPLETE CBC W/AUTO DIFF WBC Reviewed 10/09/2015 12:00 AM COMPREHEN METABOLIC PANEL Reviewed 10/09/2015 12:00 AM GLYCOSYLATED HEMOGLOBIN TEST Reviewed 10/09/2015 12:00 AM ASSAY THYROID STIM HORMONE Reviewed 11/03/2015 8:54 AM URINALYSIS AUTO W/O SCOPE Reviewed 11/03/2015 12:[address] HEAD/BRAIN W/O & W/DYE Reviewed 11/17/2015 12:00 AM Rocephin 1 gram [facility]#4090-3123-41 Reviewed 08/05/2011 12:00 AM CHEST X-RAY 2VW FRONTAL&LATL Reviewed 12/09/2015 12:00 AM THER/PROPH/DIAG INJ SC/IM Reviewed 12/09/2015 12:00 AM Rocephin 1 gram [facility]#[id number] Reviewed 11/08/2011 12:00 AM Decadron Inj. per 1mg-[facility] [id number] Reviewed 11/08/2011 12:00 AM Depo-Medrol 80 Mg [facility] [id number] Reviewed 05/20/2016 12:00 AM COMPLETE CBC W/AUTO [...] 10/30/2012 12:00 AM Decadron, Per 1 Mg [facility]# [address]-68 Reviewed 10/30/2012 12:00 AM COMPLETE CBC W/AUTO DIFF WBC Reviewed 10/30/2012 12:00 AM COMPREHEN METABOLIC PANEL Reviewed 10/30/2012 12:00 AM LIPID PANEL Reviewed 10/30/2012 12:00 AM ASSAY THYROID STIM HORMONE Reviewed 01/08/2013 12:00 AM Depo-Medrol 80 Mg Im/C'pancho Reviewed 01/08/2013 12:00 AM Decadron, Per 1 Mg [facility]# [address]-42 Reviewed 01/08/2013 12:00 AM Rocephin 1 gram [facility]#[id number] Reviewed 01/08/2013 12:00 AM COMPREHEN METABOLIC PANEL Reviewed 01/08/2013 12:00 AM GLYCOSYLATED HEMOGLOBIN TEST Reviewed 01/08/2013 12:00 AM ASSAY THYROID STIM HORMONE Reviewed 01/08/2013 12:00 AM ASSAY OF PARATHORMONE Reviewed 01/08/2013 12:00 AM LIPID PANEL Reviewed 02/27/2013 12:00 AM THER/PROPH/DIAG INJ SC/IM Reviewed 02/27/2013 12:00 AM Decadron, Per 1 Mg [facility]# [address]-70 Reviewed 02/27/2013 12:00 AM Depo-Medrol, Per 80 Mg [facility]#6863-6843-47 Reviewed 03/04/2013 12:00 AM MAMMOGRAM SCREENING Reviewed 03/05/2013 12:00 AM CYTOPATH TBS C/V MANUAL Reviewed 03/05/2013 12:00 AM MAMMOGRAM BOTH BREASTS Reviewed 03/27/2013 12:00 AM THER/PROPH/DIAG INJ SC/IM Reviewed 03/27/2013 12:00 AM Bicillin CR, 1.2 million units [facility]# 57788-194-67 Reviewed 05/10/2013 12:00 AM X-RAY EXAM KNEE [...] 08/09/2013 12:00 AM Decadron, Per 1 Mg [facility]# [address]-48 Reviewed 08/09/2013 12:00 AM Depo-Medrol, Per 80 Mg [facility]#2995-4318-86 Reviewed 08/21/2013 12:00 AM X-RAY EXAM OF [...] Reviewed 03/26/2015 12:00 AM Rocephin 1 gram [facility]#3315-3154-05 Reviewed 04/01/2015 12:00 AM COMPLETE CBC W/AUTO DIFF WBC Reviewed 04/01/2015 12:00 AM COMPREHEN METABOLIC PANEL Reviewed 04/01/2015 12:00 AM ASSAY THYROID STIM HORMONE Reviewed 04/01/2015 12:00 AM CHEST X-RAY 2VW FRONTAL&LATL Reviewed 05/07/2015 12:00 AM THER/PROPH/DIAG INJ SC/IM Reviewed 05/07/2015 12:00 AM Decadron injection Reviewed 05/07/2015 12:00 AM Depo-Medrol 40mg Reviewed 05/11/2011 12:00 AM Depo-Medrol 80 Mg [facility] [id number] Reviewed 05/11/2011 12:00 AM Decadron Inj. per 1mg-[facility] [id number] Reviewed Results Summary Date and Description Results [...] Vis Given Vis Pub CVX Tdap 04/26/2012 [employer] SKB ADACEL [id number] Intramuscular Left Arm 04/26/2012 08/19/2008 115 Tdap 03/14/2014 [employer] SKB BOOSTRIX [id number] Intramuscular Left Deltoid 03/14/2014 02/07/2013 115 Influenza 06/22/2015 [employer] Pamela. NOV Fluvirin [id number] Intramuscular Left Deltoid 06/23/2015 05/08/2015 140 Pneumococcal 09/16/2015 Not Entered NE Pneumovax 23 Intramuscular Not Entered 11/11/2016 10/02/2017 33 Influenza 07/07/2017 [employer] PMC Fluzone Quadrivalent [id number] Intramuscular Left Deltoid 07/07/2017 05/08/2015 150 History [...] Chronic pain syndrome Sep 20 2017 11:28AM Payers Insurance Name Company Name Plan Name Plan Number Policy Number Policy Group Number Start Date [employer] [place] [id number] September [facility] Financial Assistance [facility] Financial Alex 40 percent clinic October [employer] [place] [id number] Friday, October 02, 2009 [employer] [place] [id number] November [employer] Fund *INVALID State Self Insurance [id number] N/A [employer] *[place] Self Insurance [id number] N/A [employer] [place] [id number] July History of Encounters Visit Date Visit Type Provider 09/20/2017 Office visit Fredis Rico DO 08/31/2017 Office visit Fredis Rico DO 08/09/2017 Office visit Sean Marie MD 07/07/2017 Office visit Sean Marie MD 06/16/2017 Office visit Sean Marie MD 05/15/2017 Office visit Sean Marie MD 04/23/2017 Office visit Aurora Martin ENVIRONMENTAL TECHNOLOGY PROFESSOR 04/14/2017 Office visit Sean Marie MD 03/20/2017 Office visit Sean Marie MD 03/03/2017 Office visit Aurora Martin ENVIRONMENTAL TECHNOLOGY PROFESSOR 01/09/2017 Office visit Sean Marie MD 01/02/2017 [...] Marie MD 01/16/2016 Office visit Jania Stanley ENVIRONMENTAL TECHNOLOGY PROFESSOR 01/07/2016 Hospital Michelle Greco MD 12/31/2015 Office visit Sean Marie MD 12/09/2015 Office visit Miguel A Munoz ENVIRONMENTAL TECHNOLOGY PROFESSOR 11/17/2015 Office visit Sean Marie MD 11/03/2015 Office visit Sean Marie MD 10/09/2015 Office visit 10/09/2015 Office visit Sean Marie MD 08/31/2015 Office visit Sean Marie MD 08/25/2015 Office visit Sean Marie MD 06/05/2015 Office visit Sean Marie MD 05/07/2015 Office visit Amaris Gentile ENVIRONMENTAL TECHNOLOGY PROFESSOR 05/06/2015 Office visit Kiarra Ramos ENVIRONMENTAL TECHNOLOGY PROFESSOR 04/01/2015 Office visit 04/01/2015 Office visit Sean Marie MD 04/01/2015 Hospital Michelle Greco MD 03/26/2015 Office visit Sean Marie MD 03/19/2015 Office visit Sean Marie MD 02/13/2015 Office visit Sean Marie MD 01/26/2015 Office visit Leena Haddad ENVIRONMENTAL TECHNOLOGY PROFESSOR 01/12/2015 Office visit Sean Marie MD 11/24/2014 Office visit Kiarra Ramos ENVIRONMENTAL TECHNOLOGY PROFESSOR 10/22/2014 Office visit Miguel A Munoz ENVIRONMENTAL TECHNOLOGY PROFESSOR 08/22/2014 Office visit Sean Marie MD 08/01/2014 Office visit Sean Marie MD 06/09/2014 Office visit Kiarra Ramos ENVIRONMENTAL TECHNOLOGY PROFESSOR 03/14/2014 Office visit Leena Haddad ENVIRONMENTAL TECHNOLOGY PROFESSOR 02/27/2014 Office visit Leena Haddad ENVIRONMENTAL TECHNOLOGY PROFESSOR 12/02/2013 Office visit Sean Marie MD 11/25/2013 Office visit Sean Marie MD 11/14/2013 Office visit Kiarra Ramos ENVIRONMENTAL TECHNOLOGY PROFESSOR 08/21/2013 Office visit Leena Dunn Boo ENVIRONMENTAL TECHNOLOGY PROFESSOR 08/09/2013 Office visit Kiarra Ramos ENVIRONMENTAL TECHNOLOGY PROFESSOR 06/26/2013 Hospital Michelle Greco MD 06/26/2013 Office visit Sean Marie MD 06/21/2013 Office visit Kiarra Richard ENVIRONMENTAL TECHNOLOGY PROFESSOR 05/31/2013 Office visit Leena Haddad ENVIRONMENTAL TECHNOLOGY PROFESSOR 05/10/2013 Office visit Leena Haddad ENVIRONMENTAL TECHNOLOGY PROFESSOR 05/03/2013 Office visit Leena Haddad ENVIRONMENTAL TECHNOLOGY PROFESSOR 03/27/2013 Office visit Kiarra Ramos ENVIRONMENTAL TECHNOLOGY PROFESSOR 03/05/2013 Office visit Kiarra Ramos ENVIRONMENTAL TECHNOLOGY PROFESSOR 02/27/2013 Office visit Kiarra Richard ENVIRONMENTAL TECHNOLOGY PROFESSOR 01/08/2013 Office visit Sean Marie MD 10/30/2012 Office visit Sean Marie MD 04/26/2012 Nurse visit Maria Antonia Barakat ENVIRONMENTAL TECHNOLOGY PROFESSOR 02/07/2012 Office visit Sean Marie MD 02/07/2012 [facility] Michelle Greco MD 12/13/2011 Office visit Sean Marie MD 11/08/2011 Office visit Sean Marie MD 10/24/2011 Office visit Sean Marie MD 08/05/2011 Office visit Sean Marie MD 07/12/2011 Office visit Kiarra Ramos ENVIRONMENTAL TECHNOLOGY PROFESSOR 05/11/2011 Office visit Sean Marie MD 04/19/2011 [...]
--- NOTE | 2018-07-18 13:55 | Progress Note-Post Operative ---
Post-Operative Progess Note Surgeon (s)/Mock Up Builder (s) Surgeon MATILDE ADAMS MD Mock Up Builder: none Pre-Operative Diagnosis GERD Post-Operative Diagnosis reflux esophagitis(stage 2), intact stomach, moderate gastritis. Procedure & Operative Findings Date of Procedure 07/18/18 Procedure Performed/Findings EGD with bx. Anesthesia Type CS Estimated Blood Loss Estimated blood loss (mL): minimal Specimens/Packing Specimens Removed GE jxn, antrum MATILDE ADAMS MD Jul 18, 2018 1:55 pm
--- OUTSIDE RECORDS SUMMARY | 2018-07-18 13:55 | XMS REPORT | Continuity of Care Document ---
Author Author [facility] Address Unknown Phone Unavailable Allergies Active Description Code Type Severity Reaction Onset Reported/Identified Relationship to Patient Clinical Status Yes ALBUTEROL [id number] DRUG N/A TACHYCARDIA Yes PERCOCET [id number] BRANDNAME N/ A ITCHING Yes No Allergy Information Available [id number] Drug Allergy Unknown N/A 2016 Yes acetaminophen [id number] Drug Allergy Unknown N/A 07/17/2018 Yes albuterol [id number] Drug Allergy Unknown tachycardia 07/17/2018 Yes estrogens, conjugated [id number] Drug Allergy Unknown N/A 07/17/2018 Yes oxycodone [id number] Drug Allergy Unknown N/A 07/17/2018 Yes pregabalin [id number] Drug Allergy Unknown N/A 07/17/2018 Medications Medication Packaging Start Date Stop Date Route Dosage Sig XOPENEX Vial 04/03/2018 1.25 mg/3 mL SAVELLA Dose Pack 04/03/2018 04/30/2018 12.5 mg (5)-25 mg(8)-50 mg(42) CETIRIZINE HCL Tablet 04/03/2018 10 mg ALPRAZOLAM Tablet 04/03/2018 0.25 mg TIZANIDINE HCL Tablet 04/03/2018 4 mg SAVELLA Unspecified 04/30/2018 06/26/2018 12.5 mg (5)-25 mg(8)-50 mg(42) SAVELLA Tablet 05/02/2018 06/26/2018 50 mg SAVELLA Tablet 06/26/2018 100 mg Problems Date Dx Coded Attending Type Code Diagnosis Diagnosed By 06/28/2017 AUDREY AYOUB APRN Ot G47.30 SLEEP APNEA, UNSPECIFIED 06/28/2017 AUDREY AYOUB APRN Ot J42 UNSPECIFIED CHRONIC BRONCHITIS 06/28/2017 AUDREY AYOUB APRN Ot J44.9 CHRONIC OBSTRUCTIVE PULMONARY DISEASE, U 06/28/2017 AUDREY AYOUB APRN Ot J45.909 UNSPECIFIED ASTHMA, UNCOMPLICATED 06/28/2017 AUDREY AYOUB APRN Ot K76.0 FATTY (CHANGE OF) LIVER, NOT ELSEWHERE C 06/28/2017 AUDREY AYOUB RN ACUTE DIALYSIS Ot R16.2 HEPATOMEGALY WITH SPLENOMEGALY, NOT ELSE 06/28/2017 AUDREY AYOUB RN ACUTE DIALYSIS Ot Z86.11 PERSONAL HISTORY OF TUBERCULOSIS 06/30/2017 AUDREY AYOUB APRN Ot G47.30 SLEEP APNEA, UNSPECIFIED 06/30/2017 AUDREY AYOUB APRN Ot J42 UNSPECIFIED CHRONIC BRONCHITIS 06/30/2017 AUDREY AYOUB APRN Ot J44.9 CHRONIC OBSTRUCTIVE PULMONARY DISEASE, U 06/30/2017 AUDREY AYOUB APRN Ot J45.909 UNSPECIFIED ASTHMA, UNCOMPLICATED 06/30/2017 AUDREY AYOUB APRN Ot K76.0 FATTY (CHANGE OF) LIVER, NOT ELSEWHERE C 06/30/2017 AUDREY AYOUB APRN Ot R16.2 HEPATOMEGALY WITH SPLENOMEGALY, NOT ELSE 06/30/2017 AUDREY AYOUB APRN Ot Z86.11 PERSONAL HISTORY OF TUBERCULOSIS 07/12/2017 WEN POOL DO Ot E04.1 NONTOXIC SINGLE THYROID NODULE 07/12/2017 WEN POOL DO Ot I26.99 OTHER PULMONARY EMBOLISM WITHOUT ACUTE C 07/12/2017 WEN POOL DO Ot K43.9 VENTRAL HERNIA WITHOUT OBSTRUCTION OR GA 07/12/2017 WEN POOL DO Ot K76.0 FATTY (CHANGE OF) LIVER, NOT ELSEWHERE C 07/12/2017 WEN POOL DO Ot R22.43 LOCALIZED SWELLING, MASS AND LUMP, LOWER 07/12/2017 AUDREY AYOUB RN ACUTE DIALYSIS Ot J44.9 CHRONIC OBSTRUCTIVE PULMONARY DISEASE, U 10/17/2017 P R300 Dysuria 10/19/2017 AUDREY AYOUB APRN Ot G47.30 SLEEP APNEA, UNSPECIFIED 10/19/2017 AUDREY AYOUB APRN Ot J42 UNSPECIFIED CHRONIC BRONCHITIS 10/19/2017 AUDREY AYOUB APRN Ot J44.9 CHRONIC OBSTRUCTIVE PULMONARY DISEASE, U 10/19/2017 AUDREY AYOUB APRN Ot J45.909 UNSPECIFIED ASTHMA, UNCOMPLICATED 10/19/2017 AUDREY AYOUB APRN Ot K76.0 FATTY (CHANGE OF) LIVER, NOT ELSEWHERE C 10/19/2017 AUDREY AYOUB APRN Ot R16.2 HEPATOMEGALY WITH SPLENOMEGALY, NOT ELSE 10/19/2017 AUDREY AYOUB APRN Ot Z86.11 PERSONAL HISTORY OF TUBERCULOSIS 10/19/2017 WEN POOL DO Ot E04.1 NONTOXIC SINGLE THYROID NODULE 10/19/2017 WEN POOL DO Ot I26.99 OTHER PULMONARY EMBOLISM WITHOUT ACUTE C 10/19/2017 WEN POOL DO Ot K43.9 VENTRAL HERNIA WITHOUT OBSTRUCTION OR GA 10/19/2017 WEN POOL DO Ot K76.0 FATTY (CHANGE OF) LIVER, NOT ELSEWHERE C 10/19/2017 WEN POOL DO Ot R22.43 LOCALIZED SWELLING, MASS AND LUMP, LOWER 10/19/2017 AUDREY AYOUB APRN Ot J44.9 CHRONIC OBSTRUCTIVE PULMONARY DISEASE, U 10/19/2017 AUDREY AYOUB APRN Ot E07.9 DISORDER OF THYROID, UNSPECIFIED 10/19/2017 AUDREY AYOUB RN ACUTE DIALYSIS Ot F41.9 ANXIETY DISORDER, UNSPECIFIED 10/19/2017 AUDREY AYOUB APRN Ot G47.30 SLEEP APNEA, UNSPECIFIED 10/19/2017 AUDREY AYOUB APRN Ot J44.9 CHRONIC OBSTRUCTIVE PULMONARY DISEASE, U 10/19/2017 AUDREY AYOUB APRN Ot J45.909 UNSPECIFIED ASTHMA, UNCOMPLICATED 10/19/2017 AUDREY AYOUB APRN Ot J98.4 OTHER DISORDERS OF LUNG 10/19/2017 AUDREY AYOUB APRN Ot R09.02 HYPOXEMIA 10/19/2017 AUDREY AYOUB APRN Ot R94.2 ABNORMAL RESULTS OF PULMONARY FUNCTION S 10/20/2017 AUDREY AYOUB APRN Ot I26.99 OTHER PULMONARY EMBOLISM WITHOUT ACUTE C 10/20/2017 AUDREY AYOUB APRN Ot J44.9 CHRONIC OBSTRUCTIVE PULMONARY DISEASE, U 10/20/2017 AUDREY AYOUB APRN Ot J98.4 OTHER DISORDERS OF LUNG 10/20/2017 AUDREY AYOUB APRN Ot R09.02 HYPOXEMIA 10/25/2017 MEGA, AUDREY E RN ACUTE DIALYSIS Ot E07.9 DISORDER OF THYROID, UNSPECIFIED 10/25/2017 IESHA AYOUBINE Rosy RN ACUTE DIALYSIS Ot F41.9 ANXIETY DISORDER, UNSPECIFIED 10/25/2017 IESHA AYOUBINE Rosy RN ACUTE DIALYSIS Ot G47.30 SLEEP APNEA, UNSPECIFIED 10/25/2017 IESHA AYOUBINE Rosy RN ACUTE DIALYSIS Ot J44.9 CHRONIC OBSTRUCTIVE PULMONARY DISEASE, U 10/25/2017 IESHA AYOUBINE Rosy RN ACUTE DIALYSIS Ot J45.909 UNSPECIFIED ASTHMA, UNCOMPLICATED 10/25/2017 IESHA AYOUBINE Rosy RN ACUTE DIALYSIS Ot J98.4 OTHER DISORDERS OF LUNG 10/25/2017 MEGAIESHA MAGANAINE Rosy RN ACUTE DIALYSIS Ot R09.02 HYPOXEMIA 10/25/2017 IESHA AYOUBINE Rosy RN ACUTE DIALYSIS Ot R94.2 ABNORMAL RESULTS OF PULMONARY FUNCTION S 11/02/2017 AUDREY AYOUB RN ACUTE DIALYSIS Ot I26.99 OTHER PULMONARY EMBOLISM WITHOUT ACUTE C 11/02/2017 AUDREY AYOUB RN ACUTE DIALYSIS Ot J44.9 CHRONIC OBSTRUCTIVE PULMONARY DISEASE, U 11/02/2017 AUDREY AYOUB RN ACUTE DIALYSIS Ot J98.4 OTHER DISORDERS OF LUNG 11/02/2017 IESHA AYOUBINE Rosy RN ACUTE DIALYSIS Ot R09.02 HYPOXEMIA 11/23/2017 IESHA AYOUBINE Rosy RN ACUTE DIALYSIS Ot I26.99 OTHER PULMONARY EMBOLISM WITHOUT ACUTE C 11/23/2017 AUDREY AYOUB RN ACUTE DIALYSIS Ot J44.9 CHRONIC OBSTRUCTIVE PULMONARY DISEASE, U 11/23/2017 IESHA AYOUBINE Rosy RN ACUTE DIALYSIS Ot J98.4 OTHER DISORDERS OF LUNG 11/23/2017 AUDREY AYOUB RN ACUTE DIALYSIS Ot R09.02 HYPOXEMIA 11/23/2017 AUDREY AYOUB RN ACUTE DIALYSIS Ot E07.9 DISORDER OF THYROID, UNSPECIFIED 11/23/2017 IESHA AYOUBINE Rosy RN ACUTE DIALYSIS Ot F41.9 ANXIETY DISORDER, UNSPECIFIED 11/23/2017 AUDREY AYOUB RN ACUTE DIALYSIS Ot G47.30 SLEEP APNEA, UNSPECIFIED 11/23/2017 IESHA AYOUBINE Rosy RN ACUTE DIALYSIS Ot J44.9 CHRONIC OBSTRUCTIVE PULMONARY DISEASE, U 11/23/2017 IESHA AYOUBINE Rosy RN ACUTE DIALYSIS Ot J45.909 UNSPECIFIED ASTHMA, UNCOMPLICATED 11/23/2017 IESHA AYOUBINE Rosy RN ACUTE DIALYSIS Ot J98.4 OTHER DISORDERS OF LUNG 11/23/2017 IESHA AYOUBINE E RN ACUTE DIALYSIS Ot R09.02 HYPOXEMIA 11/23/2017 IESHA AYOUBINE E RN ACUTE DIALYSIS Ot R94.2 ABNORMAL RESULTS OF PULMONARY FUNCTION S 11/23/2017 IESHA AYOUBINE Rosy RN ACUTE DIALYSIS Ot I26.99 OTHER PULMONARY EMBOLISM WITHOUT ACUTE C 11/23/2017 IESHA AYOUBINE E RN ACUTE DIALYSIS Ot J44.9 CHRONIC OBSTRUCTIVE PULMONARY DISEASE, U 11/23/2017 IESHA AYOUBINE E RN ACUTE DIALYSIS Ot J98.4 OTHER DISORDERS OF LUNG 11/23/2017 IESHA AYOUBINE E RN ACUTE DIALYSIS Ot R09.02 HYPOXEMIA 12/03/2017 MEGA AUDREY E RN ACUTE DIALYSIS Ot E07.9 DISORDER OF THYROID, UNSPECIFIED 12/03/2017 MEGAIESHA MAGANAINE E RN ACUTE DIALYSIS Ot F41.9 ANXIETY DISORDER, UNSPECIFIED 12/03/2017 IESHA AYOUBINE Rosy RN ACUTE DIALYSIS Ot G47.30 SLEEP APNEA, UNSPECIFIED 12/03/2017 AUDREY AYOUB RN ACUTE DIALYSIS Ot J44.9 CHRONIC OBSTRUCTIVE PULMONARY DISEASE, U 12/03/2017 AUDREY AYOUB RN ACUTE DIALYSIS Ot J45.909 UNSPECIFIED ASTHMA, UNCOMPLICATED 12/03/2017 IESHA AYOUBINE Rosy RN ACUTE DIALYSIS Ot J98.4 OTHER DISORDERS OF LUNG 12/03/2017 IESHA AYOUBINE E RN ACUTE DIALYSIS Ot R09.02 HYPOXEMIA 12/03/2017 IESHA AYOUBINE E RN ACUTE DIALYSIS Ot R94.2 ABNORMAL RESULTS OF PULMONARY FUNCTION S 12/05/2017 IESHA AYOUBINE Rosy RN ACUTE DIALYSIS Ot E07.9 DISORDER OF THYROID, UNSPECIFIED 12/05/2017 IESHA AYOUBINE Rosy RN ACUTE DIALYSIS Ot F41.9 ANXIETY DISORDER, UNSPECIFIED 12/05/2017 AUDREY AYOUB RN ACUTE DIALYSIS Ot G47.30 SLEEP APNEA, UNSPECIFIED 12/05/2017 IESHA AYOUBINE Rosy RN ACUTE DIALYSIS Ot J44.9 CHRONIC OBSTRUCTIVE PULMONARY DISEASE, U 12/05/2017 IESHA AYOUBINE E RN ACUTE DIALYSIS Ot J45.909 UNSPECIFIED ASTHMA, UNCOMPLICATED 12/05/2017 MEGAIESHA MAGANAINE E RN ACUTE DIALYSIS Ot J98.4 OTHER DISORDERS OF LUNG 12/05/2017 IESHA AYOUBINE Rosy RN ACUTE DIALYSIS Ot R09.02 HYPOXEMIA 12/05/2017 MEGAIESHA MAGANAINE E RN ACUTE DIALYSIS Ot R94.2 ABNORMAL RESULTS OF PULMONARY FUNCTION S 12/06/2017 IESHA AYOUBINE Rosy RN ACUTE DIALYSIS Ot E07.9 DISORDER OF THYROID, UNSPECIFIED 12/06/2017 IESHA AYUOBINE Rosy RN ACUTE DIALYSIS Ot F41.9 ANXIETY DISORDER, UNSPECIFIED 12/06/2017 IESHA AYOUBINE Rosy RN ACUTE DIALYSIS Ot G47.30 SLEEP APNEA, UNSPECIFIED 12/06/2017 IESHA AYOUBINE E RN ACUTE DIALYSIS Ot J44.9 CHRONIC OBSTRUCTIVE PULMONARY DISEASE, U 12/06/2017 IESHA AYOUBINE E RN ACUTE DIALYSIS Ot J45.909 UNSPECIFIED ASTHMA, UNCOMPLICATED 12/06/2017 IESHA AYOUBINE Rosy RN ACUTE DIALYSIS Ot J98.4 OTHER DISORDERS OF LUNG 12/06/2017 IESHA AYOUBINE E RN ACUTE DIALYSIS Ot R09.02 HYPOXEMIA 12/06/2017 IESHA AYOUBINE E RN ACUTE DIALYSIS Ot R94.2 ABNORMAL RESULTS OF PULMONARY FUNCTION S 12/06/2017 AUDREY AYOUB RN ACUTE DIALYSIS Ot E04.1 NONTOXIC SINGLE THYROID NODULE 12/06/2017 AUDREY AYOUB RN ACUTE DIALYSIS Ot F41.9 ANXIETY DISORDER, UNSPECIFIED 12/06/2017 AUDREY AYOUB RN ACUTE DIALYSIS Ot I26.99 OTHER PULMONARY EMBOLISM WITHOUT ACUTE C 12/06/2017 IESHA AYOUBINE Rosy RN ACUTE DIALYSIS Ot J44.9 CHRONIC OBSTRUCTIVE PULMONARY DISEASE, U 12/06/2017 IESHA AYOUBINE Rosy RN ACUTE DIALYSIS Ot J98.4 OTHER DISORDERS OF LUNG 12/08/2017 AUDREY AYOUB RN ACUTE DIALYSIS Ot E07.9 DISORDER OF THYROID, UNSPECIFIED 12/08/2017 AUDREY AYOUB RN ACUTE DIALYSIS Ot F41.9 ANXIETY DISORDER, UNSPECIFIED 12/08/2017 AUDREY AYOUB RN ACUTE DIALYSIS Ot G47.30 SLEEP APNEA, UNSPECIFIED 12/08/2017 AUDREY AYOUB RN ACUTE DIALYSIS Ot J44.9 CHRONIC OBSTRUCTIVE PULMONARY DISEASE, U 12/08/2017 IESHA AYOUBINE Rosy RN ACUTE DIALYSIS Ot J45.909 UNSPECIFIED ASTHMA, UNCOMPLICATED 12/08/2017 IESHA AYOUBINE Rosy RN ACUTE DIALYSIS Ot J98.4 OTHER DISORDERS OF LUNG 12/08/2017 IESHA AYOUBINE Rosy RN ACUTE DIALYSIS Ot R09.02 HYPOXEMIA 12/08/2017 IESHA AYOUBINE E RN ACUTE DIALYSIS Ot R94.2 ABNORMAL RESULTS OF PULMONARY FUNCTION S 12/09/2017 AUDREY AYOUB RN ACUTE DIALYSIS Ot E07.9 DISORDER OF THYROID, UNSPECIFIED 12/09/2017 MEGAAUDREY MAGANA RN ACUTE DIALYSIS Ot F41.9 ANXIETY DISORDER, UNSPECIFIED 12/09/2017 AUDREY AYOUB RN ACUTE DIALYSIS Ot G47.30 SLEEP APNEA, UNSPECIFIED 12/09/2017 AUDREY AYOUB RN ACUTE DIALYSIS Ot J44.9 CHRONIC OBSTRUCTIVE PULMONARY DISEASE, U 12/09/2017 AUDREY AYOUB RN ACUTE DIALYSIS Ot J45.909 UNSPECIFIED ASTHMA, UNCOMPLICATED 12/09/2017 AUDREY AYOUB RN ACUTE DIALYSIS Ot J98.4 OTHER DISORDERS OF LUNG 12/09/2017 AUDREY AYOUB RN ACUTE DIALYSIS Ot R09.02 HYPOXEMIA 12/09/2017 AUDREY AYOUB RN ACUTE DIALYSIS Ot R94.2 ABNORMAL RESULTS OF PULMONARY FUNCTION S 12/11/2017 AUDREY AYOUB RN ACUTE DIALYSIS Ot E04.1 NONTOXIC SINGLE THYROID NODULE 12/11/2017 AUDREY AYOUB RN ACUTE DIALYSIS Ot F41.9 ANXIETY DISORDER, UNSPECIFIED 12/11/2017 AUDREY AYOUB RN ACUTE DIALYSIS Ot I26.99 OTHER PULMONARY EMBOLISM WITHOUT ACUTE C 12/11/2017 AUDREY AYOUB RN ACUTE DIALYSIS Ot J44.9 CHRONIC OBSTRUCTIVE PULMONARY DISEASE, U 12/11/2017 AUDREY AYOUB RN ACUTE DIALYSIS Ot J98.4 OTHER DISORDERS OF LUNG 12/11/2017 AUDREY AYOUB RN ACUTE DIALYSIS Ot I26.99 OTHER PULMONARY EMBOLISM WITHOUT ACUTE C 12/11/2017 AUDREY AYOUB RN ACUTE DIALYSIS Ot J44.9 CHRONIC OBSTRUCTIVE PULMONARY DISEASE, U 12/11/2017 AUDREY AYOUB RN ACUTE DIALYSIS Ot J98.4 OTHER DISORDERS OF LUNG 12/11/2017 AUDREY AYOUB RN ACUTE DIALYSIS Ot R09.02 HYPOXEMIA 12/11/2017 AUDREY AYOUB RN ACUTE DIALYSIS Ot G47.30 SLEEP APNEA, UNSPECIFIED 12/11/2017 AUDREY AYOUB RN ACUTE DIALYSIS Ot J42 UNSPECIFIED CHRONIC BRONCHITIS 12/11/2017 AUDREY AYOUB RN ACUTE DIALYSIS Ot J44.9 CHRONIC OBSTRUCTIVE PULMONARY DISEASE, U 12/11/2017 AUDREY AYOUB RN ACUTE DIALYSIS Ot J45.909 UNSPECIFIED ASTHMA, UNCOMPLICATED 12/11/2017 AUDREY AYOUB RN ACUTE DIALYSIS Ot K76.0 FATTY (CHANGE OF) LIVER, NOT ELSEWHERE C 12/11/2017 AUDREY AYOUB RN ACUTE DIALYSIS Ot R16.2 HEPATOMEGALY WITH SPLENOMEGALY, NOT ELSE 12/11/2017 AUDREY AYOUB APRN Ot Z86.11 PERSONAL HISTORY OF TUBERCULOSIS 12/11/2017 WEN POOL DO Ot E04.1 NONTOXIC SINGLE THYROID NODULE 12/11/2017 WEN POOL DO Ot I26.99 OTHER PULMONARY EMBOLISM WITHOUT ACUTE C 12/11/2017 WEN POOL DO Ot K43.9 VENTRAL HERNIA WITHOUT OBSTRUCTION OR GA 12/11/2017 WEN POOL DO Ot K76.0 FATTY (CHANGE OF) LIVER, NOT ELSEWHERE C 12/11/2017 WEN POOL DO Ot R22.43 LOCALIZED SWELLING, MASS AND LUMP, LOWER 12/11/2017 AUDREY AYOUB RN ACUTE DIALYSIS Ot J44.9 CHRONIC OBSTRUCTIVE PULMONARY DISEASE, U 12/11/2017 AUDREY AYOUB APRN Ot E04.1 NONTOXIC SINGLE THYROID NODULE 12/11/2017 AUDREY AYOUB RN ACUTE DIALYSIS Ot F41.9 ANXIETY DISORDER, UNSPECIFIED 12/11/2017 AUDREY AYOUB RN ACUTE DIALYSIS Ot I26.99 OTHER PULMONARY EMBOLISM WITHOUT ACUTE C 12/11/2017 AUDREY AYOUB RN ACUTE DIALYSIS Ot J44.9 CHRONIC OBSTRUCTIVE PULMONARY DISEASE, U 12/11/2017 AUDREY AYOUB RN ACUTE DIALYSIS Ot J98.4 OTHER DISORDERS OF LUNG 12/11/2017 AUDREY AYOUB RN ACUTE DIALYSIS Ot I26.99 OTHER PULMONARY EMBOLISM WITHOUT ACUTE C 12/11/2017 AUDREY AYOUB RN ACUTE DIALYSIS Ot J44.9 CHRONIC OBSTRUCTIVE PULMONARY DISEASE, U 12/11/2017 AUDREY AYOUB RN ACUTE DIALYSIS Ot J98.4 OTHER DISORDERS OF LUNG 12/11/2017 AUDREY AYOUB RN ACUTE DIALYSIS Ot R09.02 HYPOXEMIA 12/11/2017 AUDREY AYOUB RN ACUTE DIALYSIS Ot E07.9 DISORDER OF THYROID, UNSPECIFIED 12/11/2017 AUDREY AYOUB RN ACUTE DIALYSIS Ot F41.9 ANXIETY DISORDER, UNSPECIFIED 12/11/2017 AUDREY AYOUB RN ACUTE DIALYSIS Ot G47.30 SLEEP APNEA, UNSPECIFIED 12/11/2017 AUDREY AYOUB RN ACUTE DIALYSIS Ot J44.9 CHRONIC OBSTRUCTIVE PULMONARY DISEASE, U 12/11/2017 AUDREY AYOUB RN ACUTE DIALYSIS Ot J45.909 UNSPECIFIED ASTHMA, UNCOMPLICATED 12/11/2017 AUDREY AYOUB RN ACUTE DIALYSIS Ot J98.4 OTHER DISORDERS OF LUNG 12/11/2017 AUDREY AYOUB RN ACUTE DIALYSIS Ot R09.02 HYPOXEMIA 12/11/2017 AUDREY AYOUB RN ACUTE DIALYSIS Ot R94.2 ABNORMAL RESULTS OF PULMONARY FUNCTION S 12/13/2017 AUDREY AYOUB RN ACUTE DIALYSIS Ot J42 UNSPECIFIED CHRONIC BRONCHITIS 12/13/2017 AUDREY AYOUB RN ACUTE DIALYSIS Ot J45.909 UNSPECIFIED ASTHMA, UNCOMPLICATED 12/13/2017 AUDREY AYOUB RN ACUTE DIALYSIS Ot J98.4 OTHER DISORDERS OF LUNG 12/13/2017 AUDREY AYOUB RN ACUTE DIALYSIS Ot R09.02 HYPOXEMIA 12/13/2017 AUDREY AYOUB RN ACUTE DIALYSIS Ot R94.2 ABNORMAL RESULTS OF PULMONARY FUNCTION S 12/19/2017 AUDREY AYOUB RN ACUTE DIALYSIS Ot J42 UNSPECIFIED CHRONIC BRONCHITIS 12/19/2017 AUDREY AYOUB RN ACUTE DIALYSIS Ot J45.909 UNSPECIFIED ASTHMA, UNCOMPLICATED 12/19/2017 AUDREY AYOUB RN ACUTE DIALYSIS Ot J98.4 OTHER DISORDERS OF LUNG 12/20/2017 AUDREY AYOUB RN ACUTE DIALYSIS Ot E04.1 NONTOXIC SINGLE THYROID NODULE 12/20/2017 AUDREY AYOUB RN ACUTE DIALYSIS Ot F41.9 ANXIETY DISORDER, UNSPECIFIED 12/20/2017 AUDREY AYOUB RN ACUTE DIALYSIS Ot I26.99 OTHER PULMONARY EMBOLISM WITHOUT ACUTE C 12/20/2017 AUDREY AYOUB RN ACUTE DIALYSIS Ot J44.9 CHRONIC OBSTRUCTIVE PULMONARY DISEASE, U 12/20/2017 AUDREY AYOUB RN ACUTE DIALYSIS Ot J98.4 OTHER DISORDERS OF LUNG 12/27/2017 AUDREY AYOUB RN ACUTE DIALYSIS Ot J42 UNSPECIFIED CHRONIC BRONCHITIS 12/27/2017 AUDREY AYOUB RN ACUTE DIALYSIS Ot J45.909 UNSPECIFIED ASTHMA, UNCOMPLICATED 12/27/2017 AUDREY AYOUB RN ACUTE DIALYSIS Ot J98.4 OTHER DISORDERS OF LUNG 12/27/2017 AUDREY AYOUB RN ACUTE DIALYSIS Ot R09.02 HYPOXEMIA 12/27/2017 AUDREY AYOUB RN ACUTE DIALYSIS Ot R94.2 ABNORMAL RESULTS OF PULMONARY FUNCTION S 01/03/2018 AUDREY AYOUB RN ACUTE DIALYSIS Ot J42 UNSPECIFIED CHRONIC BRONCHITIS 01/03/2018 AUDREY AYOUB RN ACUTE DIALYSIS Ot J45.909 UNSPECIFIED ASTHMA, UNCOMPLICATED 01/03/2018 AUDREY AYOUB RN ACUTE DIALYSIS Ot J98.4 OTHER DISORDERS OF LUNG 03/07/2018 AUDREY AYOUB RN ACUTE DIALYSIS Ot E07.9 DISORDER OF THYROID, UNSPECIFIED 03/07/2018 AUDREY AYOUB RN ACUTE DIALYSIS Ot F41.9 ANXIETY DISORDER, UNSPECIFIED 03/07/2018 AUDREY AYOUB RN ACUTE DIALYSIS Ot G47.30 SLEEP APNEA, UNSPECIFIED 03/07/2018 AUDREY AYOUB RN ACUTE DIALYSIS Ot J44.9 CHRONIC OBSTRUCTIVE PULMONARY DISEASE, U 03/07/2018 AUDREY AYOUB RN ACUTE DIALYSIS Ot J45.909 UNSPECIFIED ASTHMA, UNCOMPLICATED 03/07/2018 MEGAIESHA MAGANAINE Rosy RN ACUTE DIALYSIS Ot J98.4 OTHER DISORDERS OF LUNG 03/07/2018 UADREY AYOUB RN ACUTE DIALYSIS Ot R09.02 HYPOXEMIA 03/07/2018 IESHA AYOUBINE E RN ACUTE DIALYSIS Ot R94.2 ABNORMAL RESULTS OF PULMONARY FUNCTION S 03/08/2018 AUDREY AYOUB RN ACUTE DIALYSIS Ot E07.9 DISORDER OF THYROID, UNSPECIFIED 03/08/2018 AUDREY AYOUB RN ACUTE DIALYSIS Ot F41.9 ANXIETY DISORDER, UNSPECIFIED 03/08/2018 AUDREY AYOUB RN ACUTE DIALYSIS Ot G47.30 SLEEP APNEA, UNSPECIFIED 03/08/2018 AUDREY AYOUB RN ACUTE DIALYSIS Ot J44.9 CHRONIC OBSTRUCTIVE PULMONARY DISEASE, U 03/08/2018 AUDREY AYOUB RN ACUTE DIALYSIS Ot J45.909 UNSPECIFIED ASTHMA, UNCOMPLICATED 03/08/2018 AUDREY AYOUB RN ACUTE DIALYSIS Ot J98.4 OTHER DISORDERS OF LUNG 03/08/2018 AUDREY AYOUB RN ACUTE DIALYSIS Ot R09.02 HYPOXEMIA 03/08/2018 AUDREY AYOUB RN ACUTE DIALYSIS Ot R94.2 ABNORMAL RESULTS OF PULMONARY FUNCTION S 04/03/2018 Carolina Barry M79.7 Fibromyalgia 04/10/2018 Carolina Barry M79.7 Fibromyalgia 04/10/2018 P M542 Cervicalgia 04/10/2018 S R51 Headache 07/17/2018 AUDREY AYOUB RN ACUTE DIALYSIS Ot E07.9 DISORDER OF THYROID, UNSPECIFIED 07/17/2018 AUDREY AYOUB RN ACUTE DIALYSIS Ot F41.9 ANXIETY DISORDER, UNSPECIFIED 07/17/2018 AUDREY AYOUB RN ACUTE DIALYSIS Ot G47.30 SLEEP APNEA, UNSPECIFIED 07/17/2018 MEGA AUDREY Gallegos RN ACUTE DIALYSIS Ot J44.9 CHRONIC OBSTRUCTIVE PULMONARY DISEASE, U 07/17/2018 MEGAIESHA MAGANAINE Rosy RN ACUTE DIALYSIS Ot J45.909 UNSPECIFIED ASTHMA, UNCOMPLICATED 07/17/2018 MEGAIESHAAUDREY Rosy RN ACUTE DIALYSIS Ot J98.4 OTHER DISORDERS OF LUNG 07/17/2018 MEGA AUDREY Gallegos RN ACUTE DIALYSIS Ot R09.02 HYPOXEMIA 07/17/2018 AUDREY AYOUB RN ACUTE DIALYSIS Ot R94.2 ABNORMAL RESULTS OF PULMONARY FUNCTION S 07/17/2018 MEGA AUDREY Gallegos RN ACUTE DIALYSIS Ot E07.9 DISORDER OF THYROID, UNSPECIFIED 07/17/2018 MEGA AUDREY Gallegos RN ACUTE DIALYSIS Ot F41.9 ANXIETY DISORDER, UNSPECIFIED 07/17/2018 MEGAAUDREY MAGANA RN ACUTE DIALYSIS Ot G47.30 SLEEP APNEA, UNSPECIFIED 07/17/2018 AUDREY AYOUB RN ACUTE DIALYSIS Ot J44.9 CHRONIC OBSTRUCTIVE PULMONARY DISEASE, U 07/17/2018 MEGA AUDREY Gallegos RN ACUTE DIALYSIS Ot J45.909 UNSPECIFIED ASTHMA, UNCOMPLICATED 07/17/2018 MEGA AUDREY Gallegos RN ACUTE DIALYSIS Ot J98.4 OTHER DISORDERS OF LUNG 07/17/2018 MEGA AUDREY Gallegos RN ACUTE DIALYSIS Ot R09.02 HYPOXEMIA 07/17/2018 IESHA AYOUBINE Rosy RN ACUTE DIALYSIS Ot R94.2 ABNORMAL RESULTS OF PULMONARY FUNCTION S Procedures Code Description [place] [id number] OFFICE/OUTPATIENT VISIT NEW 04/03/2018 Results Test Result Range Arterial blood gas measurement - 12/12/17 16:50 Blood pCO2 47 mm[Hg] 35-45 Blood pO2 81 mm[Hg] 79-93 Arterial blood bicarbonate measurement (moles/volume) 27 mmol/L 23-27 Arterial blood base excess by calculation 2.8 mmol/L -2.5 -2.5 Arterial blood oxygen saturation measurement 97 % 94-100 * Inhaled oxygen flow rate 3L NRG Arterial blood pH measurement with patient temperature correction 7.39 7.37-7.43 Arterial blood carbon dioxide, total measurement (moles/volume) 28.9 mmol/L 21.0-31.0 Body site RT RAD NRG Assessment of wrist artery patency prior to arterial puncture YES- POS NRG Setting of ventilation mode NO NRG Measurement of body temperature 98.2 NRG DOMINGA w/Reflex - 01/19/18 12:08 DOMINGA Direct Negative Negative Encounters ACCT No. Visit Date/Time Discharge Status Pt. Type Provider Facility Loc./Unit Complaint [id number] 04/11/2018 13:52:57 04/11/2018 23:59:59 CLS Outpatient Fredis Rico [id number] 03/29/2018 15:19:47 03/29/2018 23:59:59 CLS Outpatient Sean Marie [id number] 03/09/2018 09:51:30 03/09/2018 23:59:59 CLS Outpatient Sean Marie [id number] 02/28/2018 08:52:38 02/28/2018 23:59:59 CLS Outpatient Destinee Ricoitya [id number] 01/29/2018 17:36:47 01/29/2018 23:59:59 CLS Outpatient Laine Siegel [id number] 01/19/2018 11:26:07 01/19/2018 23:59:59 CLS Outpatient Sean Marie [id number] 10/27/2017 10:00:45 10/27/2017 23:59:59 CLS Outpatient Fredis Rico [id number] 10/23/2017 09:29:56 10/23/2017 23:59:59 CLS Outpatient Sean Marie [id number] 09/20/2017 12:18:44 09/20/2017 23:59:59 CLS Outpatient Destiene Ricoitya [id number] 08/31/2017 15:49:06 08/31/2017 23:59:59 CLS Outpatient Destinee Ricoitya [id number] 08/09/2017 10:08:51 08/09/2017 23:59:59 CLS Outpatient Sean Marie [id number] 07/07/2017 09:35:41 07/07/2017 23:59:59 CLS Outpatient Sean Marie [id number] 06/16/2017 11:07:00 06/16/2017 23:59:59 CLS Outpatient DaniellaflorentinolongSean [id number] 05/15/2017 09:46:10 05/15/2017 23:59:59 CLS Outpatient Sean Marie [id number] 04/23/2017 14:14:47 04/23/2017 23:59:59 CLS Outpatient Aurora Martin [id number] 04/14/2017 09:19:24 04/14/2017 23:59:59 CLS Outpatient Hetlinger, Sean [id number] 03/20/2017 15:22:17 03/20/2017 23:59:59 CLS Outpatient Hetlinger, Sean [id number] 03/03/2017 17:59:33 03/03/2017 23:59:59 CLS Outpatient Aurora Martin [id number] 01/09/2017 14:30:18 01/09/2017 23:59:59 CLS Outpatient Hetlinger, Sean [id number] 01/02/2017 14:28:33 01/02/2017 23:59:59 CLS Outpatient Hetlinger, Sean [id number] 12/27/2016 15:56:43 12/27/2016 23:59:59 CLS Outpatient Hetlinger, Sean [id number] 2016 09:39:41 2016 23:59:59 CLS Outpatient HetlingerSean [id number] 09/19/2016 11:06:13 09/19/2016 23:59:59 CLS Outpatient Hetlinger, Sean [id number] 07/01/2016 09:18:55 07/01/2016 23:59:59 CLS Outpatient HetlingerSean [id number] 06/17/2016 11:21:34 06/17/2016 23:59:59 CLS Outpatient Hetlinger, Sean [id number] 06/02/2016 11:45:43 06/02/2016 23:59:59 CLS Outpatient Michelle Greco [id number] 05/20/2016 10:07:14 05/20/2016 23:59:59 CLS Outpatient HetlingerSean [id number] 04/01/2016 10:43:20 04/01/2016 23:59:59 CLS Outpatient Hetlinger, Sean [id number] 12/09/2015 18:02:06 12/09/2015 23:59:59 CLS Outpatient Miguel A Munoz [id number] 11/17/2015 15:42:52 11/17/2015 23:59:59 CLS Outpatient HetlingerSean [id number] 11/03/2015 09:17:08 11/03/2015 23:59:59 CLS Outpatient Hetlinger, Sean [id number] 10/09/2015 09:43:07 10/09/2015 23:59:59 CLS Outpatient Hetlinger, Sean [id number] 08/31/2015 15:29:16 08/31/2015 23:59:59 CLS Outpatient HetlingerSean [id number] 08/25/2015 11:01:57 08/25/2015 23:59:59 CLS Outpatient HetlingerSean [id number] 06/05/2015 10:21:13 06/05/2015 23:59:59 CLS Outpatient HetlingSean magana [id number] 06/01/2015 07:40:23 06/01/2015 23:59:59 CLS Outpatient Michelle Greco [id number] 05/11/2015 22:33:28 05/11/2015 23:59:59 CLS Outpatient Amaris Gentile [id number] 05/11/2015 22:31:59 05/11/2015 23:59:59 CLS Outpatient Kiarra Ramos [id number] 05/11/2015 22:07:32 05/11/2015 23:59:59 CLS Outpatient HetlingSean magana [id number] 05/11/2015 22:03:31 05/11/2015 23:59:59 CLS Outpatient HetlingerSean [id number] 05/11/2015 21:59:14 05/11/2015 23:59:59 CLS Outpatient HetlingSean magana [id number] 05/11/2015 21:28:40 05/11/2015 23:59:59 CLS Outpatient HetlingSean magana [id number] 01/26/2015 16:10:40 01/26/2015 23:59:59 CLS Outpatient Leena Haddad [id number] 01/12/2015 09:52:09 01/12/2015 23:59:59 CLS Outpatient HetlingSean magana [id number] 10/22/2014 14:36:19 10/22/2014 23:59:59 CLS Outpatient Miguel A Munoz [id number] 08/22/2014 09:31:15 08/22/2014 23:59:59 CLS Outpatient HetlingSean magana [id number] 08/01/2014 10:40:38 08/01/2014 23:59:59 CLS Outpatient HetlingSean magana [id number] 06/09/2014 15:49:13 06/09/2014 23:59:59 CLS Outpatient RichardKiarra [id number] 03/14/2014 09:18:53 03/14/2014 23:59:59 CLS Outpatient Leena Haddad [id number] 02/27/2014 14:57:30 02/27/2014 23:59:59 CLS Outpatient Leena Haddad [id number] 12/02/2013 10:40:20 12/02/2013 23:59:59 CLS Outpatient Sean Marie [id number] 11/25/2013 10:02:26 11/25/2013 23:59:59 CLS Outpatient Sean Marie [id number] 11/14/2013 15:16:36 11/14/2013 23:59:59 CLS Outpatient Kiarra Ramos [id number] 05/22/2018 15:27:56 Document Registration [id number] 04/30/2018 10:19:47 Document Registration [id number] 03/02/2018 08:28:44 Document Registration [id number] 01/19/2018 11:47:58 Document Registration [id number] 12/04/2017 22:01:23 Document Registration [id number] 11/17/2017 14:30:23 Document Registration [id number] 11/17/2017 14:20:24 Document Registration [id number] 11/13/2017 16:14:58 Document Registration [id number] 10/17/2017 14:41:57 Document Registration [id number] 09/22/2017 16:12:37 Document Registration [id number] 09/22/2017 16:11:47 Document Registration [id number] 09/01/2017 08:49:17 Document Registration [id number] 06/16/2017 11:00:02 Document Registration [id number] 05/18/2017 13:38:17 Document Registration [id number] 05/17/2017 08:52:26 Document Registration [id number] 07/17/2018 14:37:00 07/17/2018 15:09:00 DIS Outpatient MATILDE ADAMS MD [facility] PREOP EGD [id number] 03/08/2018 08:15:00 03/08/2018 23:59:59 CLS Preadmit AUDREY AYOUB APRN [facility] PULM F41.9 ANXIETY J45.909 ASTHMA [id number] 12/19/2017 13:00:00 03/07/2018 00:01:00 DIS Outpatient AUDREY AYOUB APRN [facility] PULM F41.9 ANXIETY J45.909 ASTHMA [id number] 12/18/2017 11:38:00 12/18/2017 23:59:59 CLS Outpatient MEGA, AUDREY E RN ACUTE DIALYSIS [facility] RT RESTRICITVE LUNG DISEASE,ASTHMA [id number] 12/12/2017 15:37:00 12/12/2017 23:59:59 CLS Outpatient MEGA, AUDREY E RN ACUTE DIALYSIS [facility] PULM J45.909 [id number] 12/05/2017 13:54:00 12/05/2017 23:59:59 CLS Outpatient MEGA, AUDREY E RN ACUTE DIALYSIS [facility] RAD J45.909,J44.9 [id number] 11/30/2017 13:00:00 12/03/2017 00:01:00 DIS Outpatient MEGA, AUDREY E RN ACUTE DIALYSIS [facility] PULM F41.9 ANXIETY J45.909 ASTHMA [id number] 10/19/2017 15:24:00 10/19/2017 23:59:59 CLS Outpatient MEGA, AUDREY E RN ACUTE DIALYSIS [facility] LAB J44.9 R09.02 I26.99 J98.4 [id number] 06/30/2017 08:37:00 06/30/2017 23:59:59 CLS Outpatient MEGA, AUDREY E RN ACUTE DIALYSIS [facility] LAB J44.9 [id number] 06/29/2017 14:43:00 06/29/2017 23:59:59 CLS Outpatient WEN POOL DO [facility] RAD COPD,ASTHMA [id number] 06/14/2017 15:28:00 06/14/2017 23:59:59 CLS Outpatient MEGA, AUDREY E RN ACUTE DIALYSIS [facility] RAD J45.909 ASTHMA [id number] 08/15/2018 09:00:00 PEN PreadMATILDE Vo MD [facility] RAD REFLUX [id number] 01/22/2018 11:05:00 Document Registration [id number] 06/26/2018 14:46:00 06/26/2018 23:59:59 CLS Outpatient Carolina Barry [id number] 05/02/2018 11:05:00 05/02/2018 23:59:59 CLS Outpatient Meryl Barryie [id number] 04/30/2018 08:38:00 04/30/2018 23:59:59 CLS Outpatient Meryl Barryie [id number] 04/16/2018 12:00:00 04/16/2018 23:59:59 CLS Outpatient Meryl Barryie [id number] 04/03/2018 13:30:00 04/03/2018 23:59:59 [facility] Outpatient [place]
--- NOTE | 2018-07-18 13:57 | Discharge Inst-Surgical ---
D/C Lap Instructions-BRYAN Follow Up PRN, will call Activity as tolerated High Fiber Diet 25g or more per day Avoid Alcohol, Caffeine, Spicy [place] and Acid foods. Drink 64 fluid oz or more of fluids per day. Symptoms to Report: Fever over 101 degree F, Nausea/Vomiting If any problems/questions: Contact your physician or go to Emergency Room MATILDE ADAMS MD Jul 18, 2018 1:56 pm
[2018-07-18 14:30] VITALS: BP 132/67
[2018-07-18 14:45] VITALS: BP 148/58
[2018-07-18 14:59] VITALS: BP 148/58
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
== END 2018-07-18 14:50 | disposition home or self-care (01) ==
LOC: ENDO 11:37
PROVIDERS: ATTEND Surgery
DX: K21.0 Gastro-esophageal reflux disease with esophagitis (principal); K44.9 Diaphragmatic hernia without obstruction or gangrene; K29.70 Gastritis, unspecified, without bleeding; J44.9 Chronic obstructive pulmonary disease, unspecified; G47.33 Obstructive sleep apnea (adult) (pediatric); Z79.899 Other long term (current) drug therapy
CPT/HCPCS: 88305

== ENCOUNTER → 2018-07-31 | Outpatient (CLI) | payer BC ==
[2018-07-31 11:35] LABS: ABG BASE EXCESS 2.1 MMOL/L (-2.5-2.5); ABG OXYGEN SATURATION 97 % (94-100); ABG PCO2 41 MMHG (35-45); ABG PH 7.42 (7.37-7.43); ABG PO2 77 MMHG (79-93); ABG TCO2 27.5 MMOL/L (21.0-31.0); ALLENS TEST YES-POS; INSPIRED O2 3L; VENTILATOR NO
--- NOTE | 2018-07-31 15:58 | Diagnostic Imaging Report ---
INDICATION: Preop for gastric bypass surgery. Patient does have COPD and insomnia. TIME OF EXAMINATION: 11:22 AM. COMPARISON: 04/28/2006. FINDINGS: The heart size is stable. Linear scarring in the left upper lobe is stable. No infiltrates are seen. No effusion or pneumothorax is identified. IMPRESSION: Stable chest. No acute feature is detected. Dictated by: Dictated on workstation # [id number]
== END ==
LOC: RAD 10:14
PROVIDERS: ATTEND Nurse Practitioner Family
DX: Z01.818 Encounter for other preprocedural examination (principal); J44.9 Chronic obstructive pulmonary disease, unspecified; G47.00 Insomnia, unspecified; G47.30 Sleep apnea, unspecified
CPT/HCPCS: 36600; 71046; 82805; 94640

== ENCOUNTER → 2018-08-15 | Outpatient (CLI) | payer BC, OTHER ==
[~2018-08-15] MED LIST changes: +BARIUM SUSPENSION 105% (LIQUID POLIBAR PLUS) 240 ML/DOSE PO ONE; +BARIUM SUSPENSION 60% (LIQUID EZ PAQUE) 240 ML DOSE PO ONE
--- NOTE | 2018-08-15 12:58 | Diagnostic Imaging Report ---
INDICATION: Reflux. Study is performed prior to gastric sleeve surgery. TECHNIQUE: The patient ingested effervescent crystals as well as thin and thick barium and imaging of the esophagus, stomach and small bowel was performed. Total of one minute and 8 seconds of fluoroscopy was utilized. FINDINGS: Preliminary radiograph of the abdomen shows some surgical clips overlying the abdomen. Spinal stimulator is in place. The esophagus has a smooth contour. No mass or stricture is seen. No gastroesophageal reflux was demonstrated. No significant hiatal hernia is identified. The stomach has a normal configuration. There is prompt emptying into the small bowel. Duodenal bulb is without deformity. Small bowel loops are normal in caliber. Transit time is within normal limits, without evidence of obstruction. The mucosal fold pattern is unremarkable. IMPRESSION: Unremarkable upper GI and small bowel follow-through. Dictated by: Dictated on workstation # [id number]
== END ==
LOC: RAD 08:11
PROVIDERS: ATTEND Surgery
DX: Z01.818 Encounter for other preprocedural examination (principal); K21.9 Gastro-esophageal reflux disease without esophagitis
CPT/HCPCS: 74249

== ENCOUNTER 2018-08-27 12:07 | Outpatient (CLI) | payer OTHER, BC ==
[~2018-08-27] VITALS: Ht 162.6 cm; Wt 126.1 kg
[~2018-08-27 12:07] MED LIST changes: -BARIUM SUSPENSION 105% (LIQUID POLIBAR PLUS) 240 ML/DOSE PO ONE; -BARIUM SUSPENSION 60% (LIQUID EZ PAQUE) 240 ML DOSE PO ONE
[2018-08-27] MEDS ORDERED: GABA800T PO (12:42)
[2018-08-27] MEDS ORDERED: FURO40TA4 PO (12:42)
[2018-08-27] MEDS ORDERED: MONT10TA21 PO (12:42)
[2018-08-27] MEDS ORDERED: AMBERIN PO (12:42)
[2018-08-27] MEDS ORDERED: ALPR0.254 PO (12:42)
[2018-08-27] MEDS ORDERED: TIZA4TAB3 PO (12:42)
[2018-08-27] MEDS ORDERED: LEVA1.2527 NEB (12:42)
[2018-08-27 12:51] VITALS: BP 117/80
[2018-08-27 13:26] LABS: BASOPHILS % (AUTO) 0 % (0-10); EOSINOPHILS # (AUTO) 0.2 10^3/uL (0.0-0.3); EOSINOPHILS % (AUTO) 2 % (0-10); HEMATOCRIT 44 % (35-52); HEMOGLOBIN 14.2 G/DL (11.5-16.0); LYMPHOCYTES # (AUTO) 1.6 X 10^3 (1.0-4.0); LYMPHOCYTES % (AUTO) 21 % (12-44); MEAN CORPUSCULAR HEMOGLOBIN 27 PG (25-34); MEAN CORPUSCULAR HGB CONC 32 G/DL (32-36); MEAN CORPUSCULAR VOLUME 83 FL (80-99); MEAN PLATELET VOLUME 11.1 FL (7.4-10.4); MONOCYTES # (AUTO) 0.5 X 10^3 (0.0-1.0); MONOCYTES % (AUTO) 7 % (0-12); NEUTROPHILS # (AUTO) 5.4 X 10^3 (1.8-7.8); NEUTROPHILS % (AUTO) 70 % (42-75); PLATELET COUNT 286 10^3/uL (130-400); RED BLOOD COUNT 5.32 10^6/uL (4.35-5.85); RED CELL DISTRIBUTION WIDTH 13.8 % (10.0-14.5); WHITE BLOOD COUNT 7.7 10^3/uL (4.3-11.0)
== END 2018-08-27 15:47 | disposition home or self-care (01) ==
LOC: PREOP 12:07
PROVIDERS: ATTEND Surgery
DX: Z01.812 Encounter for preprocedural laboratory examination (principal); Z11.2 Encounter for screening for other bacterial diseases; E66.01 Morbid (severe) obesity due to excess calories; Z68.42 Body mass index [BMI] 45.0-49.9, adult
CPT/HCPCS: 36415; 85025; 87081

== ENCOUNTER 2018-08-30 11:18 | Inpatient (IN) | payer SELFPAY ==
[~2018-08-30] VITALS: Ht 162.6 cm; Wt 123.4 kg
[~2018-08-30 11:18] MED LIST changes: +ALPR0.254 PO; +AMBERIN PO; +FURO40TA4 PO; +GABA800T PO; +LEVA1.2527 NEB; +MONT10TA21 PO; +TIZA4TAB3 PO
[2018-08-30 11:30] VITALS: BP 138/76
[2018-08-30] MEDS: LACTATED RINGERS 1,000 ML IV PRN ×2 (11:40→15:00)
[2018-08-30] MEDS ORDERED: ceFAZolin 2 GM IV Premixed 50 ML IV ONE (11:45)
[2018-08-30] MEDS ORDERED: proPOfol 200 MG/20 ML (DIPRIVAN) VIAL IV ONE (12:52)
[2018-08-30] MEDS ORDERED: LIDOCAINE PF 2% 5 ML (XYLOCAINE) VIAL ONE (12:52)
[2018-08-30] MEDS ORDERED: ROCURONIUM 10 MG/ML 5 ML SYRINGE IV ONE (12:52)
[2018-08-30] MEDS ORDERED: ONDANSETRON 4 MG/2 ML (SDV) Z0FRAN ONE (12:52)
[2018-08-30] MEDS ORDERED: DEXAMETHASONE 10 MG/ML (DECADRON) 1 ML VIAL ONE (12:53)
[2018-08-30] MEDS ORDERED: LACTATED RINGERS 1,000 ML IV ONE (12:53)
[2018-08-30] MEDS ORDERED: fentaNYL INJECTION 100 MCG/2 ML AMP ONE ×2 (12:53→15:44)
[2018-08-30] MEDS ORDERED: MIDAZOLAM 2 MG/2 ML (VERSED) VIAL ONE (12:53)
[2018-08-30] MEDS ORDERED: SEVOFLURANE (ULTANE) 15 ML INHAL SOLN ONE ×11 (12:53→16:34)
[2018-08-30] MEDS ORDERED: BUP/EPI 0.5% 1:200,000 (SENSORCAINE) 30 ML VIAL ONE (13:13)
--- NOTE | 2018-08-30 13:52 | Progress Note-Pre Operative ---
Pre-Operative Progress Note H&P Reviewed The H&P was reviewed, patient examined and no changes noted. Date Seen by Provider: Aug 30, 2018 Time Seen by Provider: 13:30 Date H&P Reviewed: Aug 30, 2018 Time H&P Reviewed: 13:30 Pre-Operative Diagnosis: morbid obesity, HTN MATILDE ADAMS MD Aug 30, 2018 1:52 pm
--- NOTE | 2018-08-30 13:58 | Discharge Inst-Surgical ---
D/C Lap Instructions-BRYAN Follow Up Appt in 2 weeks Activity as tolerated No driving for 24 hours No driving while on pain medications Incentive Spirometry use every 2 hours while awake phase 1 clear liquid diet 2 weeks. Symptoms to Report: Fever over 101 degree F, Nausea/Vomiting Infection Signs and Symptoms to report: Increased redness, Foul odor of wound, Increased drainage Bathing instructions: May shower Operative Area Clean/Dry; Keep incision clean/dry If any problems/questions: Contact your physician or go to Emergency Room MATILDE ADAMS MD Aug 30, 2018 1:58 pm
[2018-08-30] MEDS ORDERED: GLYCOPYRROLATE 0.2 MG/ML (ROBINUL) 2 ML VIAL ONE (16:29)
[2018-08-30] MEDS ORDERED: NEOSTIGMINE 1 MG/ML 5 ML SYRINGE ONE (16:29)
--- NOTE | 2018-08-30 16:42 | Progress Note-Post Operative ---
Post-Operative Progess Note Surgeon (s)/Child Protective Services Specialist (s) Surgeon MATILDE ADAMS MD Child Protective Services Specialist: chaparro briggs 2ND [employer] Pre-Operative Diagnosis morbid obesity, HTN Post-Operative Diagnosis same Procedure & Operative Findings Date of Procedure 08/30/18 Procedure Performed/Findings laparoscopic gastric sleeve resection. Anesthesia Type GET Estimated Blood Loss Estimated blood loss (mL): minimal Specimens/Packing Specimens Removed stomach MATILDE ADAMS MD Aug 30, 2018 4:42 pm
[2018-08-30] MEDS ORDERED: NS IV 1000 ML 1,000 ML IV SCH (16:43)
[2018-08-30] MEDS ORDERED: METOCLOPRAMIDE INJ 10 MG/2 ML (REGLAN) IV PRN (16:45)
[2018-08-30] MEDS ORDERED: fentaNYL INJECTION 1,000 MCG in NS (IVPB) 80 ML IV SCH (16:45)
[2018-08-30] MEDS ORDERED: diphenhydrAMINE 50 MG/ML INJ (BENADRYL) IVP PRN (16:45)
[2018-08-30] MEDS ORDERED: diphenhydrAMINE 50 MG/ML INJ (BENADRYL) IV PRN (16:45)
[2018-08-30] MEDS ORDERED: NALOXONE 0.4 MG/ML 1 ML (NARCAN) VIAL IV PRN (16:45)
[2018-08-30] MEDS ORDERED: ONDANSETRON 4 MG/2 ML (SDV) Z0FRAN IV PRN (16:45)
[2018-08-30] MEDS ORDERED: HYDROcodone/APAP 7.5MG-325 MG/15 ML (LORTAB) UDC PO PRN (16:45)
[2018-08-30] MEDS ORDERED: KETOROLAC 30 MG/ML VIAL ONE (16:49)
[2018-08-30] MEDS ORDERED: HYDROmorphone 2 MG/ML VIAL (DILAUDID) IV ONE (17:00)
[2018-08-30] MEDS ORDERED: morphine INJ 10 MG/ML 1ML (SYR OR VIAL) IVP ONE (17:00)
[2018-08-30] MEDS ORDERED: PROMETHAZINE INJ 25 MG/ML (PHENERGAN) AMP IVP ONE (17:00)
[2018-08-30] MEDS ORDERED: ONDANSETRON 4 MG/2 ML (SDV) Z0FRAN IVP PRN (17:00)
[2018-08-30] MEDS ORDERED: morphine INJ 10 MG/ML 1ML (SYR OR VIAL) ONE (17:03)
[2018-08-30] MEDS ORDERED: HYDROmorphone 2 MG/ML VIAL (DILAUDID) ONE (17:22)
[2018-08-30] MEDS: ONDANSETRON 4 MG/2 ML (SDV) Z0FRAN IVP SCH (18:54)
[2018-08-30] MEDS: METOCLOPRAMIDE INJ 10 MG/2 ML (REGLAN) IVP SCH (18:54)
[2018-08-30] MEDS: metroNIDAZOLE 500MG/100ML IVPB 100 ML IV SCH (18:54)
[2018-08-30] MEDS: 1/2 NS W/KCL 20 MEQ/L 1,000 ML IV SCH (18:54)
[2018-08-30 19:00] VITALS: BP 152/67
[2018-08-30] MEDS: ENOXAPARIN 40 MG/0.4 ML (LOVENOX) SYR SC SCH (20:00)
[2018-08-30] MEDS: ceFAZolin 2 GM IV Premixed 50 ML IV SCH (21:57)
[2018-08-31] MEDS: ONDANSETRON 4 MG/2 ML (SDV) Z0FRAN IVP SCH ×3 (00:05→12:20)
[2018-08-31] MEDS: 1/2 NS W/KCL 20 MEQ/L 1,000 ML IV SCH ×3 (00:05→12:21)
[2018-08-31] MEDS: METOCLOPRAMIDE INJ 10 MG/2 ML (REGLAN) IVP SCH ×3 (00:05→12:20)
[2018-08-31 00:07] VITALS: BP 168/80
--- OUTSIDE RECORDS SUMMARY | 2018-08-31 00:46 | XMS REPORT ---
Author Author Sean Marie [facility] Address [address] [place], [place] [id number] Care Team Providers Care Land Survey Technician Name Role Phone Sean Marie PCP Sean Marie PreferredProvider Allergies and Adverse Reactions Name Reaction Notes Albuterol tachycardia increases heart rate too much Percocet "head crawling" Adhesive Tape Plan of Treatment Planned Activity Comments Planned Date Planned Time Plan/Goal Mammography; bilateral 11/13/2017 12:00 AM CBC With Auto Differential 01/08/2013 12:00 AM VITAMIN D 25 Hydroxy 07/31/2018 12:00 AM Cyanocobalamin measurement 07/31/2018 12:00 AM Thiamine measurement 07/31/2018 12:00 AM EKG (12-lead electrocardiogram) 06/26/2013 12:00 [...] TAKE ONE TABLET BY MOUTH ONCE DAILY lamotrigine 100 mg oral tablet 03/26/2018 TAKE [...] TAKE 1 TABLET BY MOUTH ONCE DAILY armodafinil 150 mg oral tablet 06/25/2018 TAKE 1 TABLET BY MOUTH ONCE DAILY IN THE MORNING nystatin 100,000 unit/gram topical cream 07/20/2018 apply to the affected area(s) by topical route 3 times per day Name Start Date Expiration [...] mg) by oral route every 4 hours [employer] Thyroid 60 mg oral tablet 07/31/2017 07/31/2017 [...] TO EXCEED 3 DOSES IN 24 HOURS) Nuvigil 150 mg oral tablet 02/28/2018 06/28/2018 take 1 tablet (150 mg) by oral route once daily in the morning for 30 days OxyContin 40 mg oral [...] by oral route 2 times per day [place] Thyroid 60 mg oral tablet 12/02/2013 take 1 tablet by oral route daily for 30 days [place] Thyroid 60 mg oral tablet 04/07/2014 TAKE ONE TABLET BY MOUTH ONCE DAILY milk thistle oral 11/24/2014 chromium picolinate oral 06/09/2014 Zofran ODT oral 10/09/2015 Dexilant 60 mg oral capsule,biphase delayed releas 07/09/2014 11/24/2014 TAKE ONE CAPSULE BY MOUTH EVERY DAY [place] Thyroid 60 mg oral tablet 08/04/2014 TAKE [...] by oral route once daily at bedtime Con[place] 5-325 mg oral tablet 08/22/2014 11/24/2014 take [...] by topical route 2 times per day [place] Thyroid 60 mg oral tablet 07/13/2015 TAKE [...] daily in the morning for 30 days [place] Thyroid 60 mg oral tablet 07/11/2016 08/09/2017 [...] route once daily with the evening meal [place] 10-325 mg oral tablet 01/19/2018 04/30/2018 take [...] HC BMI BSA BMI Percentile O2 Sat(%) 07/20/2018 8:34:00 AM 140 mmHg 88 mmHg 92 bpm 16 rpm 98.2 F 288 lbs 65 in 47.9252 kg/m 2.4477 m 99 % 05/22/2018 2:37:00 PM 146 mmHg 98 mmHg 87 bpm 18 rpm 97.9 F 289.25 lbs 65 in 48.13 kg/m2 2.45 m2 97 % 04/30/2018 2:17:00 PM 140 mmHg [...] Mg [facility]# [address]-94 Reviewed 08/25/2015 12:00 AM Depo-Medrol, Per [address] [facility]#[address]-86 Reviewed 08/25/2015 12:00 AM Rocephin [address] [facility]#3255-3766-04 Reviewed 10/09/2015 12:00 AM COMPLETE CBC W/AUTO DIFF WBC Reviewed 10/09/2015 12:00 AM COMPREHEN METABOLIC PANEL Reviewed 10/09/2015 12:00 AM GLYCOSYLATED HEMOGLOBIN TEST Reviewed 10/09/2015 12:00 AM ASSAY THYROID STIM HORMONE Reviewed 11/03/2015 8:54 AM URINALYSIS AUTO W/O SCOPE Reviewed 11/03/2015 12:[address] HEAD/BRAIN W/O & W/DYE Reviewed 11/17/2015 12:00 AM Rocephin [address] [facility]#1676-9579-39 Reviewed 08/05/2011 12:00 AM CHEST X-RAY 2VW FRONTAL&LATL Reviewed 12/09/2015 12:00 AM THER/PROPH/DIAG INJ SC/IM Reviewed 12/09/2015 12:00 AM Rocephin [address] [facility]#9779-2748-56 Reviewed 11/08/2011 12:00 AM Decadron Inj. per 1mg-[facility] [id number] Reviewed 11/08/2011 12:00 AM Depo-Medrol [address] [facility] [id number] Reviewed 05/20/2016 12:00 AM COMPLETE CBC W/AUTO [...] Mg [facility]# [address]-24 Reviewed 10/30/2012 12:00 AM COMPLETE CBC W/AUTO [...] Mg [facility]# [address]-96 Reviewed 01/08/2013 12:00 AM Rocephin [address] [facility]#5744-0051-16 Reviewed 01/08/2013 12:00 AM COMPREHEN METABOLIC PANEL Reviewed 01/08/2013 12:00 AM GLYCOSYLATED HEMOGLOBIN TEST Reviewed 01/08/2013 12:00 AM ASSAY THYROID STIM HORMONE Reviewed 01/08/2013 12:00 AM ASSAY OF PARATHORMONE Reviewed 01/08/2013 12:00 AM LIPID PANEL Reviewed 04/30/2018 12:00 AM US EXAM OF HEAD AND NECK Returned 04/30/2018 12:[address] ABD & PELV W/CONTRAST Returned 05/22/2018 12:00 AM COMPLETE CBC W/AUTO DIFF WBC Returned 05/22/2018 12:00 AM COMPREHEN METABOLIC PANEL Returned 05/22/2018 12:00 AM ASSAY THYROID STIM HORMONE Returned 05/22/2018 12:00 AM ASSAY OF FREE THYROXINE Returned 05/22/2018 12:00 AM FREE ASSAY (FT-3) Returned 02/27/2013 12:00 AM THER/PROPH/DIAG INJ SC/IM Reviewed 02/27/2013 12:00 AM Decadron, Per [address] [facility]# [address]-19 Reviewed 02/27/2013 12:00 AM Depo-Medrol, Per [address] [facility]#2467-7371-00 Reviewed 03/04/2013 12:00 AM MAMMOGRAM SCREENING Reviewed 03/05/2013 12:00 AM CYTOPATH TBS C/V MANUAL Reviewed 03/05/2013 12:00 AM MAMMOGRAM BOTH BREASTS Reviewed 03/27/2013 12:00 AM THER/PROPH/DIAG INJ SC/IM Reviewed 03/27/2013 12:00 AM Bicillin CR, 1.2 million units [facility]# 91265-172-63 Reviewed 07/20/2018 12:00 AM X-RAY EXAM OF FOOT Returned 05/10/2013 12:00 AM X-RAY EXAM KNEE 4 [...] Mg [facility]# [address]-27 Reviewed 08/09/2013 12:00 AM Depo-Medrol, Per [address] [facility]#2688-5680-94 Reviewed 08/21/2013 12:00 AM X-RAY EXAM OF [...] [address] [facility]#6027-7864-67 Reviewed 04/01/2015 12:00 AM COMPLETE CBC W/AUTO [...] Mg [facility] [id number] Reviewed 05/11/2011 12:00 AM Decadron Inj. per 1mg-[facility] [id number] Reviewed Results Summary Date and Description Results [...] Vis Given Vis Pub CVX Tdap 04/26/2012 [employer] SKB ADACEL [id number] Intramuscular Left Arm 04/26/2012 08/19/2008 115 Tdap 03/14/2014 [employer] SKB BOOSTRIX [id number] Intramuscular Left Deltoid 03/14/2014 02/07/2013 115 Influenza 06/22/2015 [email or web address] NOV FLUVIRIN [id number] Intramuscular Left Deltoid 06/23/2015 05/08/2015 140 Pneumococcal 09/16/2015 Not Entered NE PNEUMOVAX 23 Intramuscular Not Entered 11/11/2016 10/02/2017 33 Influenza 07/07/[address] [facility] Fluzone Quadrivalent [id number] Intramuscular Left Deltoid 07/07/2017 05/08/2015 150 History [...] 2:38PM Weight gain May 22 2018 2:38PM Foot pain, right Jul 20 2018 8:43AM Yeast dermatitis Jul 20 2018 8:43AM Morbid obesity Jul 31 2018 10:08AM Payers Insurance Name Company Name Plan Name Plan Number Policy Number Policy Group Number Start Date [facility] [id number] N/A [employer] [facility] Financial Alex 100 PERCENT Tuesday, November 21, 2017 [employer] [facility] Financial Alex 100 percent Tuesday, November 21, 2017 [employer] [place] [id number] Friday, October 02, 2009 [employer] [place] [id number] November State Self Insurance Fund *INVALID State Self Insurance [id number] N /A State Self Insurance Fund *INVALID State Self Insurance [id number] N /A [employer] [place] [id number] July [employer] [place] [id number] September History of Encounters Visit Date Visit Type Provider 07/20/2018 Office visit Sean Marie MD 05/22/2018 Office visit Sean Marie MD 04/30/2018 [...] Marie MD 01/16/2016 Office visit Jania Stanley RADIATION MONITOR 01/07/2016 Hospital Michelle Greco MD 12/31/2015 Office visit Sean Marie MD 12/09/2015 Office visit Miguel A Munoz RADIATION MONITOR 11/17/2015 Office visit Sean Marie MD 11/03/2015 Office visit Sean Marie MD 10/09/2015 Office visit 10/09/2015 Office visit Sean Marie MD 08/31/2015 Office visit Sean Marie MD 08/25/2015 Office visit Sean Marie MD 06/05/2015 Office visit Sean Marie MD 05/07/2015 Office visit Amaris Gentile RADIATION MONITOR 05/06/2015 Office visit Kiarra Ramos RADIATION MONITOR 04/01/2015 Office visit 04/01/2015 Office visit Sean Marie MD 04/01/2015 Hospital Michelle Greco MD 03/26/2015 Office visit Sean Marie MD 03/19/2015 Office visit Sean Marie MD 02/13/2015 Office visit Sean Marie MD 01/26/2015 Office visit Leena Haddad RADIATION MONITOR 01/12/2015 Office visit Sean Marie MD 11/24/2014 Office visit Kiarra Ramos RADIATION MONITOR 10/22/2014 Office visit Miguel A Munoz RADIATION MONITOR 08/22/2014 Office visit Saen Marie MD 08/01/2014 Office visit Sean Marie MD 06/09/2014 Office visit Kiarra Ramos RADIATION MONITOR 03/14/2014 Office visit Leena Haddad RADIATION MONITOR 02/27/2014 Office visit Leena Haddad RADIATION MONITOR 12/02/2013 Office visit Sean Marie MD 11/25/2013 Office visit Sean Marie MD 11/14/2013 Office visit Kiarra Ramos RADIATION MONITOR 08/21/2013 Office visit Leena Haddad RADIATION MONITOR 08/09/2013 Office visit Kiarra Ramos RADIATION MONITOR 06/26/2013 Hospital Michelle Greco MD 06/26/2013 Office visit Sean Marie MD 06/21/2013 Office visit Kiarra Ramos RADIATION MONITOR 05/31/2013 Office visit Leena Haddad RADIATION MONITOR 05/10/2013 Office visit Leena Haddad RADIATION MONITOR 05/03/2013 Office visit Leena Haddad RADIATION MONITOR 03/27/2013 Office visit Kiarra Ramos RADIATION MONITOR 03/05/2013 Office visit Kiarra Ramos RADIATION MONITOR 02/27/2013 Office visit Kiarra Ramos RADIATION MONITOR 01/08/2013 Office visit Sean Marie MD 10/30/2012 Office visit Sean Marie MD 04/26/2012 Nurse visit Maria Antonia Barakat RADIATION MONITOR 02/07/2012 Office visit Sean Marie MD 02/07/2012 [facility] Marcela Greco MD 12/13/2011 Office visit Sean Marie MD 11/08/2011 Office visit Sean Marie MD 10/24/2011 Office visit Sean Marie MD 08/05/2011 Office visit Sean Marie MD 07/12/2011 Office visit Kiarra Ramos RADIATION MONITOR 05/11/2011 Office visit Sean Marie MD 04/19/2011 [...]
--- OUTSIDE RECORDS SUMMARY | 2018-08-31 00:49 | XMS REPORT ---
Author Author Sean Marie [facility] Address [address] [place], [place] [id number] Care Team Providers Care Cone Cleaner Name Role Phone Sean Marie PCP Sean Marie PreferredProvider Allergies and Adverse Reactions Name Reaction Notes Albuterol tachycardia increases heart rate too much Percocet "head crawling" Adhesive Tape Plan of Treatment Planned Activity Comments Planned Date Planned Time Plan/Goal Mammography; bilateral 11/13/2017 12:00 AM CBC With Auto Differential 01/08/2013 12:00 AM Foot 3Views - Main 07/20/2018 12:00 AM EKG (12-lead electrocardiogram) 06/26/2013 12:00 [...] mg) by oral route every 4 hours 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 [employer] Thyroid 60 mg oral tablet 07/31/2017 07/31/2017 [...] by oral route 2 times per day Crawford Thyroid 60 mg oral tablet 12/02/2013 take 1 tablet by oral route daily for 30 days [place] Thyroid 60 mg oral tablet 04/07/2014 TAKE ONE TABLET BY MOUTH ONCE DAILY milk thistle oral 11/24/2014 chromium picolinate oral 06/09/2014 Zofran ODT oral 10/09/2015 Dexilant 60 mg oral capsule,biphase delayed releas 07/09/2014 11/24/2014 TAKE ONE CAPSULE BY MOUTH EVERY DAY [place] Thyroid 60 mg oral tablet 08/04/2014 TAKE [...] by oral route once daily at bedtime [place] 5-325 mg oral tablet 08/22/2014 11/24/2014 take [...] by topical route 2 times per day [place] Thyroid 60 mg oral tablet 07/13/2015 TAKE [...] daily in the morning for 30 days [place] Thyroid 60 mg oral tablet 07/11/2016 08/09/2017 [...] route once daily with the evening meal [place] 10-325 mg oral tablet 01/19/2018 04/30/2018 take [...] AM Decadron, Per 1 Mg [facility]# [address]-70 Reviewed 08/25/2015 12:00 AM Depo-Medrol, Per 80 Mg [facility]#[address]-30 Reviewed 08/25/2015 12:00 AM Rocephin 1 gram [facility]#8705-3603-04 Reviewed 10/09/2015 12:00 AM COMPLETE CBC W/AUTO DIFF WBC Reviewed 10/09/2015 12:00 AM COMPREHEN METABOLIC PANEL Reviewed 10/09/2015 12:00 AM GLYCOSYLATED HEMOGLOBIN TEST Reviewed 10/09/2015 12:00 AM ASSAY THYROID STIM HORMONE Reviewed 11/03/2015 8:54 AM URINALYSIS AUTO W/O SCOPE Reviewed 11/03/2015 12:[address] HEAD/BRAIN W/O & W/DYE Reviewed 11/17/2015 12:00 AM Rocephin 1 gram [facility]#6669-4439-70 Reviewed 08/05/2011 12:00 AM CHEST X-RAY 2VW FRONTAL&LATL Reviewed 12/09/2015 12:00 AM THER/PROPH/DIAG INJ SC/IM Reviewed 12/09/2015 12:00 AM Rocephin 1 gram [facility]#7513-7574-78 Reviewed 11/08/2011 12:00 AM Decadron Inj. per 1mg-[facility] [id number]-[id number] Reviewed 11/08/2011 12:00 AM Depo-Medrol 80 Mg [facility] [id number]-Spzgrtrhw Reviewed 05/20/2016 12:00 AM COMPLETE CBC W/AUTO [...] AM Decadron, Per 1 Mg [facility]# [address]-48 Reviewed 10/30/2012 12:00 AM COMPLETE CBC W/AUTO [...] AM Decadron, Per 1 Mg [facility]# [address]-98 Reviewed 01/08/2013 12:00 AM Rocephin 1 gram [facility]#4968-5845-03 Reviewed 01/08/2013 12:00 AM COMPREHEN METABOLIC PANEL [...] AM Decadron, Per 1 Mg [facility]# [address]-14 Reviewed 02/27/2013 12:00 AM Depo-Medrol, Per 80 Mg [facility]#3508-2625-11 Reviewed 03/04/2013 12:00 AM MAMMOGRAM SCREENING Reviewed 03/05/2013 12:00 AM CYTOPATH TBS C/V MANUAL Reviewed 03/05/2013 12:00 AM MAMMOGRAM BOTH BREASTS Reviewed 03/27/2013 12:00 AM THER/PROPH/DIAG INJ SC/IM Reviewed 03/27/2013 12:00 AM Bicillin CR, 1.2 million units [facility]# 55857-218-05 Reviewed 05/10/2013 12:00 AM X-RAY EXAM KNEE [...] AM Decadron, Per 1 Mg [facility]# [address]-43 Reviewed 08/09/2013 12:00 AM Depo-Medrol, Per 80 Mg [facility]#5882-6548-22 Reviewed 08/21/2013 12:00 AM X-RAY EXAM OF [...] 03/26/2015 12:00 AM Rocephin 1 gram [facility]#4833-3554-52 Reviewed 04/01/2015 12:00 AM COMPLETE CBC W/AUTO DIFF WBC Reviewed 04/01/2015 12:00 AM COMPREHEN METABOLIC PANEL Reviewed 04/01/2015 12:00 AM ASSAY THYROID STIM HORMONE Reviewed 04/01/2015 12:00 AM CHEST X-RAY 2VW FRONTAL&LATL Reviewed 05/07/2015 12:00 AM THER/PROPH/DIAG INJ SC/IM Reviewed 05/07/2015 12:00 AM Decadron injection Reviewed 05/07/2015 12:00 AM Depo-Medrol 40mg Reviewed 05/11/2011 12:00 AM Depo-Medrol 80 Mg [facility] [id number]-Dqkwfuiso Reviewed 05/11/2011 12:00 AM Decadron Inj. per 1mg-[facility] [facility] [id number]-Dijknvrse Reviewed Results Summary Date and Description Results [...] Vis Given Vis Pub CVX Tdap 04/26/2012 [employer] SKB ADACEL [id number] Intramuscular Left Arm 04/26/2012 08/19/2008 115 Tdap 03/14/2014 [employer] SKB BOOSTRIX [id number] Intramuscular Left Deltoid 03/14/2014 02/07/2013 115 Influenza 06/22/2015 [facility] NOV FLUVIRIN [id number] Intramuscular Left Deltoid 06/23/2015 05/08/2015 140 Pneumococcal 09/16/2015 Not Entered NE PNEUMOVAX 23 Intramuscular Not Entered 11/11/2016 10/02/2017 33 Influenza 07/07/2017 [facility] Fluzone Quadrivalent [id number] Intramuscular Left Deltoid 07/07/2017 05/08/2015 150 History [...] 8:43AM Yeast dermatitis Jul 20 2018 8:43AM Payers Insurance Name Company Name Plan Name Plan Number Policy Number Policy Group Number Start Date [id number] N/A [employer] Alex 100 PERCENT Tuesday, November 21, 2017 [employer] Alex 100 percent Tuesday, November 21, 2017 [id number] Friday, October 02, 2009 [employer] [place] [id number] November State Self Insurance Fund *INVALID State Self Insurance [id number] N /A State Self Insurance Fund *INVALID State Self Insurance [id number] N /A [employer] [place] [id number] July [employer] [place] [id number] September History of Encounters Visit Date Visit [...] Sean Marie MD 01/16/2016 Office visit Jania tSanley LIGHT BULB TESTER 01/07/2016 Hospital Michelle Greco MD 12/31/2015 Office visit Sean Marie MD 12/09/2015 Office visit Miguel A Munoz LIGHT BULB TESTER 11/17/2015 Office visit Sean Marie MD 11/03/2015 Office visit Sean Marie MD 10/09/2015 Office visit 10/09/2015 Office visit Sean Marie MD 08/31/2015 Office visit Sean Marie MD 08/25/2015 Office visit Sean Marie MD 06/05/2015 Office visit Sean Marie MD 05/07/2015 Office visit Amaris Gentile LIGHT BULB TESTER 05/06/2015 Office visit Kiarra Ramos LIGHT BULB TESTER 04/01/2015 Office visit 04/01/2015 Office visit Sean Marie MD 04/01/2015 Hospital Michelle Greco MD 03/26/2015 Office visit Sean Marie MD 03/19/2015 Office visit Sean Marie MD 02/13/2015 Office visit Sean Marie MD 01/26/2015 Office visit Leena Haddad LIGHT BULB TESTER 01/12/2015 Office visit Sean Marie MD 11/24/2014 Office visit Kiarra Ramos LIGHT BULB TESTER 10/22/2014 Office visit Miguel A Munoz LIGHT BULB TESTER 08/22/2014 Office visit Sean Marie MD 08/01/2014 Office visit Sean Marie MD 06/09/2014 Office visit Kiarra Rmaos LIGHT BULB TESTER 03/14/2014 Office visit Leena Haddad LIGHT BULB TESTER 02/27/2014 Office visit Leena Haddad LIGHT BULB TESTER 12/02/2013 Office visit Sean Marie MD 11/25/2013 Office visit Sean Marie MD 11/14/2013 Office visit Kiarra Ramos LIGHT BULB TESTER 08/21/2013 Office visit Leena Haddad LIGHT BULB TESTER 08/09/2013 Office visit Kiarra Ramos LIGHT BULB TESTER 06/26/2013 Hospital Michelle Greco MD 06/26/2013 Office visit Sean Marie MD 06/21/2013 Office visit Kiarra Ramos LIGHT BULB TESTER 05/31/2013 Office visit Leena Haddad LIGHT BULB TESTER 05/10/2013 Office visit Leena Haddad LIGHT BULB TESTER 05/03/2013 Office visit Leena Haddad LIGHT BULB TESTER 03/27/2013 Office visit Kiarra Richard LIGHT BULB TESTER 03/05/2013 Office visit Kiarra Richard LIGHT BULB TESTER 02/27/2013 Office visit Kiarra Richard LIGHT BULB TESTER 01/08/2013 Office visit Sean Marie MD 10/30/2012 Office visit Sean Marie MD 04/26/2012 Nurse visit Maria Atnonia Barakat LIGHT BULB TESTER 02/07/2012 Office visit Sean Marie MD 02/07/2012 [facility] Marcela Greco MD 12/13/2011 Office visit Sean Marie MD 11/08/2011 Office visit Sean Marie MD 10/24/2011 Office visit Sean Marie MD 08/05/2011 Office visit Sean Marie MD 07/12/2011 Office visit Kiarra Ramos LIGHT BULB TESTER 05/11/2011 Office visit Sean Marie MD 04/19/2011 [...]
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
[2018-08-31] MEDS: metroNIDAZOLE 500MG/100ML IVPB 100 ML IV SCH ×2 (02:44→12:21)
--- OUTSIDE RECORDS SUMMARY | 2018-08-31 02:51 | XMS REPORT ---
Author Author CLEMENTE GONZALES Organization [facility] Address [address] [place] [address] Care Team Providers Care Field Crop Grower Name Role Phone CLEMENTE GONZALES Unavailable PROBLEMS Unknown Problems ALLERGIES No Information ENCOUNTERS Encounter Location Date Diagnosis [facility] [address] [facility] [id number] [address] Aug, [facility] [address] [facility] [id number] [address] Aug, IMMUNIZATIONS No Known Immunizations SOCIAL HISTORY Never Assessed REASON FOR VISIT bariatric surgery evaluation PLAN OF CARE VITAL SIGNS MEDICATIONS Unknown Medications RESULTS No Results PROCEDURES No Known procedures INSTRUCTIONS MEDICATIONS ADMINISTERED No Known Medications
--- OUTSIDE RECORDS SUMMARY | 2018-08-31 02:51 | XMS REPORT | Continuity of Care Document ---
Author Author [facility] Address Unknown Phone Unavailable Allergies Active Description Code Type Severity Reaction Onset Reported/Identified Relationship to Patient Clinical Status Yes ALBUTEROL [id number] DRUG N/A TACHYCARDIA Yes PERCOCET [id number] BRANDNAME N/ A ITCHING Yes No Allergy Information Available [id number] Drug Allergy Unknown N/A 2016 Yes acetaminophen [id number] Drug Allergy Unknown N/A 07/18/2018 Yes albuterol [id number] Drug Allergy Unknown tachycardia 07/18/2018 Yes estrogens, conjugated [id number] Drug Allergy Unknown N/A 07/18/2018 Yes oxycodone [id number] Drug Allergy Unknown N/A 07/18/2018 Yes pregabalin [id number] Drug Allergy Unknown N/A 07/18/2018 Medications Medication Packaging Start Date Stop Date Route Dosage Sig XOPENEX Vial 04/03/2018 1.25 mg/3 mL SAVELLA Dose Pack 04/03/2018 04/30/2018 12.5 mg (5)-25 mg(8)-50 mg(42) CETIRIZINE HCL Tablet 04/03/2018 10 mg ALPRAZOLAM Tablet 04/03/2018 0.25 mg TIZANIDINE HCL Tablet 04/03/2018 4 mg SAVELLA Unspecified 04/30/2018 06/26/2018 12.5 mg (5)-25 mg(8)-50 mg(42) SAVELLA Tablet 05/02/2018 06/26/2018 50 mg SAVELLA Tablet 06/26/2018 100 mg GABAPENTIN Capsule 08/06/2018 300 mg Problems Date Dx Coded Attending Type Code Diagnosis Diagnosed By 06/28/2017 AUDREY AYOUB APRN Ot G47.30 SLEEP APNEA, UNSPECIFIED 06/28/2017 AUDREY AYOUB APRN Ot J42 UNSPECIFIED CHRONIC BRONCHITIS 06/28/2017 AUDREY AYOUB APRN Ot J44.9 CHRONIC OBSTRUCTIVE PULMONARY DISEASE, U 06/28/2017 AUDREY AYOUB APRN, Ot J45.909 UNSPECIFIED ASTHMA, UNCOMPLICATED 06/28/2017 AUDREY AYOUB APRN Ot K76.0 FATTY (CHANGE OF) LIVER, NOT ELSEWHERE C 06/28/2017 AUDREY AYOUB ACUTE CARE PHYSICIAN Ot R16.2 HEPATOMEGALY WITH SPLENOMEGALY, NOT ELSE 06/28/2017 AUDREY AYOUB ACUTE CARE PHYSICIAN Ot Z86.11 PERSONAL HISTORY OF TUBERCULOSIS 06/30/2017 AUDREY AYOUB APRN Ot G47.30 SLEEP APNEA, UNSPECIFIED 06/30/2017 AUDREY AYOUB ACUTE CARE PHYSICIAN Ot J42 UNSPECIFIED CHRONIC BRONCHITIS 06/30/2017 AUDREY AYOUB ACUTE CARE PHYSICIAN Ot J44.9 CHRONIC OBSTRUCTIVE PULMONARY DISEASE, U 06/30/2017 AUDREY AYOUB APRN Ot J45.909 UNSPECIFIED ASTHMA, UNCOMPLICATED 06/30/2017 AUDREY AYOUB APRN Ot K76.0 FATTY (CHANGE OF) LIVER, NOT ELSEWHERE C 06/30/2017 AUDREY AYOUB APRN Ot R16.2 HEPATOMEGALY WITH SPLENOMEGALY, NOT ELSE 06/30/2017 AUDREY AYOUB ACUTE CARE PHYSICIAN Ot Z86.11 PERSONAL HISTORY OF TUBERCULOSIS 07/12/2017 [...] MASS AND LUMP, LOWER 07/12/2017 AUDREY AYOUB ACUTE CARE PHYSICIAN Ot J44.9 CHRONIC OBSTRUCTIVE PULMONARY DISEASE, U 10/17/2017 P R300 Dysuria 10/19/2017 AUDREY AYOUB ACUTE CARE PHYSICIAN Ot G47.30 SLEEP APNEA, UNSPECIFIED 10/19/2017 AUDREY AYOUB ACUTE CARE PHYSICIAN Ot J42 UNSPECIFIED CHRONIC BRONCHITIS 10/19/2017 AUDREY AYOUB ACUTE CARE PHYSICIAN Ot J44.9 CHRONIC OBSTRUCTIVE PULMONARY DISEASE, U 10/19/2017 AUDREY AYOUB ACUTE CARE PHYSICIAN Ot J45.909 UNSPECIFIED ASTHMA, UNCOMPLICATED 10/19/2017 AUDREY [...] DISORDER OF THYROID, UNSPECIFIED 10/19/2017 AUDREY AYOUB APRN Ot F41.9 ANXIETY DISORDER, UNSPECIFIED 10/19/2017 AUDREY AYOUB APRN Ot G47.30 SLEEP APNEA, UNSPECIFIED 10/19/2017 AUDREY AYOUB APRN Ot J44.9 CHRONIC OBSTRUCTIVE PULMONARY DISEASE, U 10/19/2017 AUDREY AYOUB ACUTE CARE PHYSICIAN Ot J45.909 UNSPECIFIED ASTHMA, UNCOMPLICATED 10/19/2017 AUDREY AYOUB APRN Ot J98.4 OTHER DISORDERS OF LUNG 10/19/2017 AUDREY AYOUB ACUTE CARE PHYSICIAN Ot R09.02 HYPOXEMIA 10/19/2017 AUDREY AYOUB APRN Ot R94.2 ABNORMAL RESULTS OF PULMONARY FUNCTION S 10/20/2017 AUDREY AYOUB APRN Ot I26.99 OTHER PULMONARY EMBOLISM WITHOUT ACUTE C 10/20/2017 AUDREY AYOUB ACUTE CARE PHYSICIAN Ot J44.9 CHRONIC OBSTRUCTIVE PULMONARY DISEASE, U 10/20/2017 AUDREY AYOUB ACUTE CARE PHYSICIAN Ot J98.4 OTHER DISORDERS OF LUNG 10/20/2017 AUDREY AYOUB ACUTE CARE PHYSICIAN Ot R09.02 HYPOXEMIA 10/25/2017 MEGA, AUDREY E ACUTE CARE PHYSICIAN Ot E07.9 DISORDER OF THYROID, UNSPECIFIED 10/25/2017 AUDREY AYOUB ACUTE CARE PHYSICIAN Ot F41.9 ANXIETY DISORDER, UNSPECIFIED 10/25/2017 AUDREY AYOUB ACUTE CARE PHYSICIAN Ot G47.30 SLEEP APNEA, UNSPECIFIED 10/25/2017 AUDREY AYOUB ACUTE CARE PHYSICIAN Ot J44.9 CHRONIC OBSTRUCTIVE PULMONARY DISEASE, U 10/25/2017 AUDREY AYOUB ACUTE CARE PHYSICIAN Ot J45.909 UNSPECIFIED ASTHMA, UNCOMPLICATED 10/25/2017 IESHA AYOUBINE Rosy ACUTE CARE PHYSICIAN Ot J98.4 OTHER DISORDERS OF LUNG 10/25/2017 IESHA AYOUBINE Rosy ACUTE CARE PHYSICIAN Ot R09.02 HYPOXEMIA 10/25/2017 AUDREY AYOUB ACUTE CARE PHYSICIAN Ot R94.2 ABNORMAL RESULTS OF PULMONARY FUNCTION S 11/02/2017 AUDREY AYOUB ACUTE CARE PHYSICIAN Ot I26.99 OTHER PULMONARY EMBOLISM WITHOUT ACUTE C 11/02/2017 AUDREY AYOUB ACUTE CARE PHYSICIAN Ot J44.9 CHRONIC OBSTRUCTIVE PULMONARY DISEASE, U 11/02/2017 AUDREY AYOUB ACUTE CARE PHYSICIAN Ot J98.4 OTHER DISORDERS OF LUNG 11/02/2017 AUDREY AYOUB ACUTE CARE PHYSICIAN Ot R09.02 HYPOXEMIA 11/23/2017 IESHA AYOUBINE Rosy ACUTE CARE PHYSICIAN Ot I26.99 OTHER PULMONARY EMBOLISM WITHOUT ACUTE C 11/23/2017 AUDREY AYOUB ACUTE CARE PHYSICIAN Ot J44.9 CHRONIC OBSTRUCTIVE PULMONARY DISEASE, U 11/23/2017 AUDREY AYOUB ACUTE CARE PHYSICIAN Ot J98.4 OTHER DISORDERS OF LUNG 11/23/2017 AUDREY AYOUB ACUTE CARE PHYSICIAN Ot R09.02 HYPOXEMIA 11/23/2017 AUDREY AYOUB ACUTE CARE PHYSICIAN Ot E07.9 DISORDER OF THYROID, UNSPECIFIED 11/23/2017 AUDREY AYOUB ACUTE CARE PHYSICIAN Ot F41.9 ANXIETY DISORDER, UNSPECIFIED 11/23/2017 AUDREY AYOUB ACUTE CARE PHYSICIAN Ot G47.30 SLEEP APNEA, UNSPECIFIED 11/23/2017 AUDREY AYOUB ACUTE CARE PHYSICIAN Ot J44.9 CHRONIC OBSTRUCTIVE PULMONARY DISEASE, U 11/23/2017 AUDREY AYOUB ACUTE CARE PHYSICIAN Ot J45.909 UNSPECIFIED ASTHMA, UNCOMPLICATED 11/23/2017 AUDREY AYOUB ACUTE CARE PHYSICIAN Ot J98.4 OTHER DISORDERS OF LUNG 11/23/2017 AUDREY AYOUB ACUTE CARE PHYSICIAN Ot R09.02 HYPOXEMIA 11/23/2017 MEGA, AUDREY E ACUTE CARE PHYSICIAN Ot R94.2 ABNORMAL RESULTS OF PULMONARY FUNCTION S 11/23/2017 IESHA AYOUBINE Rosy ACUTE CARE PHYSICIAN Ot I26.99 OTHER PULMONARY EMBOLISM WITHOUT ACUTE C 11/23/2017 IESHA AYOUBINE Rosy ACUTE CARE PHYSICIAN Ot J44.9 CHRONIC OBSTRUCTIVE PULMONARY DISEASE, U 11/23/2017 IESHA AYOUBINE Rosy ACUTE CARE PHYSICIAN Ot J98.4 OTHER DISORDERS OF LUNG 11/23/2017 IESHA AYOUBINE Rosy ACUTE CARE PHYSICIAN Ot R09.02 HYPOXEMIA 12/03/2017 IESHA AYOUBINE Rosy ACUTE CARE PHYSICIAN Ot E07.9 DISORDER OF THYROID, UNSPECIFIED 12/03/2017 IESHA AYOUBINE Rosy ACUTE CARE PHYSICIAN Ot F41.9 ANXIETY DISORDER, UNSPECIFIED 12/03/2017 IESHA AYOUBINE Rosy ACUTE CARE PHYSICIAN Ot G47.30 SLEEP APNEA, UNSPECIFIED 12/03/2017 IESHA AYOUBINE Rosy ACUTE CARE PHYSICIAN Ot J44.9 CHRONIC OBSTRUCTIVE PULMONARY DISEASE, U 12/03/2017 IESHA AYOUBINE Rosy ACUTE CARE PHYSICIAN Ot J45.909 UNSPECIFIED ASTHMA, UNCOMPLICATED 12/03/2017 MEGAIESHA MAGANAINE Rosy ACUTE CARE PHYSICIAN Ot J98.4 OTHER DISORDERS OF LUNG 12/03/2017 IESHA AYOUBINE Rosy ACUTE CARE PHYSICIAN Ot R09.02 HYPOXEMIA 12/03/2017 IESHA AYOUBINE Rosy ACUTE CARE PHYSICIAN Ot R94.2 ABNORMAL RESULTS OF PULMONARY FUNCTION S 12/05/2017 AUDREY AYOUB ACUTE CARE PHYSICIAN Ot E07.9 DISORDER OF THYROID, UNSPECIFIED 12/05/2017 IESHA AYOUBINE Rosy ACUTE CARE PHYSICIAN Ot F41.9 ANXIETY DISORDER, UNSPECIFIED 12/05/2017 IESHA AYOUBINE Rosy ACUTE CARE PHYSICIAN Ot G47.30 SLEEP APNEA, UNSPECIFIED 12/05/2017 IESHA AYOUBINE Rosy ACUTE CARE PHYSICIAN Ot J44.9 CHRONIC OBSTRUCTIVE PULMONARY DISEASE, U 12/05/2017 IESHA AYOUBINE E ACUTE CARE PHYSICIAN Ot J45.909 UNSPECIFIED ASTHMA, UNCOMPLICATED 12/05/2017 IESHA AYOUBINE E ACUTE CARE PHYSICIAN Ot J98.4 OTHER DISORDERS OF LUNG 12/05/2017 IESHA AYOUBINE Rosy ACUTE CARE PHYSICIAN Ot R09.02 HYPOXEMIA 12/05/2017 IESHA AYOUBINE E ACUTE CARE PHYSICIAN Ot R94.2 ABNORMAL RESULTS OF PULMONARY FUNCTION S 12/06/2017 AUDREY AYOUB ACUTE CARE PHYSICIAN Ot E07.9 DISORDER OF THYROID, UNSPECIFIED 12/06/2017 AUDREY AYOUB ACUTE CARE PHYSICIAN Ot F41.9 ANXIETY DISORDER, UNSPECIFIED 12/06/2017 AUDREY AYOUB ACUTE CARE PHYSICIAN Ot G47.30 SLEEP APNEA, UNSPECIFIED 12/06/2017 AUDREY AYOUB ACUTE CARE PHYSICIAN Ot J44.9 CHRONIC OBSTRUCTIVE PULMONARY DISEASE, U 12/06/2017 AUDREY AYOUB ACUTE CARE PHYSICIAN Ot J45.909 UNSPECIFIED ASTHMA, UNCOMPLICATED 12/06/2017 AUDREY AYOUB ACUTE CARE PHYSICIAN Ot J98.4 OTHER DISORDERS OF LUNG 12/06/2017 IESHA AYOUBINE Rosy ACUTE CARE PHYSICIAN Ot R09.02 HYPOXEMIA 12/06/2017 IESHA AYOUBINE Rosy ACUTE CARE PHYSICIAN Ot R94.2 ABNORMAL RESULTS OF PULMONARY FUNCTION S 12/06/2017 AUDREY AYOUB ACUTE CARE PHYSICIAN Ot E04.1 NONTOXIC SINGLE THYROID NODULE 12/06/2017 AUDREY AYOUB ACUTE CARE PHYSICIAN Ot F41.9 ANXIETY DISORDER, UNSPECIFIED 12/06/2017 AUDREY AYOUB ACUTE CARE PHYSICIAN Ot I26.99 OTHER PULMONARY EMBOLISM WITHOUT ACUTE C 12/06/2017 AUDREY AYOUB ACUTE CARE PHYSICIAN Ot J44.9 CHRONIC OBSTRUCTIVE PULMONARY DISEASE, U 12/06/2017 AUDREY AYOUB ACUTE CARE PHYSICIAN Ot J98.4 OTHER DISORDERS OF LUNG 12/08/2017 AUDREY AYOUB ACUTE CARE PHYSICIAN Ot E07.9 DISORDER OF THYROID, UNSPECIFIED 12/08/2017 AUDREY AYOUB ACUTE CARE PHYSICIAN Ot F41.9 ANXIETY DISORDER, UNSPECIFIED 12/08/2017 AUDREY AYOUB ACUTE CARE PHYSICIAN Ot G47.30 SLEEP APNEA, UNSPECIFIED 12/08/2017 AUDREY AYOUB ACUTE CARE PHYSICIAN Ot J44.9 CHRONIC OBSTRUCTIVE PULMONARY DISEASE, U 12/08/2017 IESHA AYOUBINE Rosy ACUTE CARE PHYSICIAN Ot J45.909 UNSPECIFIED ASTHMA, UNCOMPLICATED 12/08/2017 IESHA AYOUBINE Rosy ACUTE CARE PHYSICIAN Ot J98.4 OTHER DISORDERS OF LUNG 12/08/2017 IESHA AYOUBINE Rosy ACUTE CARE PHYSICIAN Ot R09.02 HYPOXEMIA 12/08/2017 IESHA AYOUBINE Rosy ACUTE CARE PHYSICIAN Ot R94.2 ABNORMAL RESULTS OF PULMONARY FUNCTION S 12/09/2017 AUDREY AYOUB ACUTE CARE PHYSICIAN Ot E07.9 DISORDER OF THYROID, UNSPECIFIED 12/09/2017 AUDREY AYOUB ACUTE CARE PHYSICIAN Ot F41.9 ANXIETY DISORDER, UNSPECIFIED 12/09/2017 AUDREY AYOUB ACUTE CARE PHYSICIAN Ot G47.30 SLEEP APNEA, UNSPECIFIED 12/09/2017 AUDREY AYOUB ACUTE CARE PHYSICIAN Ot J44.9 CHRONIC OBSTRUCTIVE PULMONARY DISEASE, U 12/09/2017 AUDREY AYOUB ACUTE CARE PHYSICIAN Ot J45.909 UNSPECIFIED ASTHMA, UNCOMPLICATED 12/09/2017 AUDREY AYOUB ACUTE CARE PHYSICIAN Ot J98.4 OTHER DISORDERS OF LUNG 12/09/2017 IESHA AYOUBINE E ACUTE CARE PHYSICIAN Ot R09.02 HYPOXEMIA 12/09/2017 IESHA AYOUBINE Rosy ACUTE CARE PHYSICIAN Ot R94.2 ABNORMAL RESULTS OF PULMONARY FUNCTION S 12/11/2017 AUDREY AYOUB ACUTE CARE PHYSICIAN Ot E04.1 NONTOXIC SINGLE THYROID NODULE 12/11/2017 AUDREY AYOUB ACUTE CARE PHYSICIAN Ot F41.9 ANXIETY DISORDER, UNSPECIFIED 12/11/2017 AUDREY AYOUB ACUTE CARE PHYSICIAN Ot I26.99 OTHER PULMONARY EMBOLISM WITHOUT ACUTE C 12/11/2017 AUDREY AYOUB ACUTE CARE PHYSICIAN Ot J44.9 CHRONIC OBSTRUCTIVE PULMONARY DISEASE, U 12/11/2017 AUDREY AYOUB ACUTE CARE PHYSICIAN Ot J98.4 OTHER DISORDERS OF LUNG 12/11/2017 AUDREY AYOUB ACUTE CARE PHYSICIAN Ot I26.99 OTHER PULMONARY EMBOLISM WITHOUT ACUTE C 12/11/2017 AUDREY AYOUB ACUTE CARE PHYSICIAN Ot J44.9 CHRONIC OBSTRUCTIVE PULMONARY DISEASE, U 12/11/2017 AUDREY AYOUB ACUTE CARE PHYSICIAN Ot J98.4 OTHER DISORDERS OF LUNG 12/11/2017 AUDREY AYOUB ACUTE CARE PHYSICIAN Ot R09.02 HYPOXEMIA 12/11/2017 AUDREY AYOUB ACUTE CARE PHYSICIAN Ot G47.30 SLEEP APNEA, UNSPECIFIED 12/11/2017 IESHA AYOUBINE Rosy ACUTE CARE PHYSICIAN Ot J42 UNSPECIFIED CHRONIC BRONCHITIS 12/11/2017 AUDREY AYOUB ACUTE CARE PHYSICIAN Ot J44.9 CHRONIC OBSTRUCTIVE PULMONARY DISEASE, U 12/11/2017 IESHA AYOUBINE Rosy ACUTE CARE PHYSICIAN Ot J45.909 UNSPECIFIED ASTHMA, UNCOMPLICATED 12/11/2017 AUDREY AYOUB ACUTE CARE PHYSICIAN Ot K76.0 FATTY (CHANGE OF) LIVER, NOT ELSEWHERE C 12/11/2017 AUDREY AYOUB ACUTE CARE PHYSICIAN Ot R16.2 HEPATOMEGALY WITH SPLENOMEGALY, NOT ELSE 12/11/2017 AUDREY AYOUB ACUTE CARE PHYSICIAN Ot Z86.11 PERSONAL HISTORY OF TUBERCULOSIS 12/11/2017 WEN POOL DO Magaly Ot E04.1 NONTOXIC SINGLE THYROID NODULE 12/11/2017 CORINE WEN Mckenzie Ot I26.99 OTHER PULMONARY EMBOLISM WITHOUT ACUTE C 12/11/2017 CORINE MEDINA WEN Mckenzie Ot K43.9 VENTRAL HERNIA WITHOUT OBSTRUCTION OR GA 12/11/2017 CORINE MEDINA WEN Mckenzie Ot K76.0 FATTY (CHANGE OF) LIVER, NOT ELSEWHERE C 12/11/2017 WEN POOL DO Magaly Ot R22.43 LOCALIZED SWELLING, MASS AND LUMP, LOWER 12/11/2017 AUDREY AYOUB ACUTE CARE PHYSICIAN Ot J44.9 CHRONIC OBSTRUCTIVE PULMONARY DISEASE, U 12/11/2017 AUDREY AYOUB ACUTE CARE PHYSICIAN Ot E04.1 NONTOXIC SINGLE THYROID NODULE 12/11/2017 AUDREY AYOUB ACUTE CARE PHYSICIAN Ot F41.9 ANXIETY DISORDER, UNSPECIFIED 12/11/2017 AUDREY AYOUB ACUTE CARE PHYSICIAN Ot I26.99 OTHER PULMONARY EMBOLISM WITHOUT ACUTE C 12/11/2017 AUDREY AYOUB ACUTE CARE PHYSICIAN Ot J44.9 CHRONIC OBSTRUCTIVE PULMONARY DISEASE, U 12/11/2017 AUDREY AYOUB ACUTE CARE PHYSICIAN Ot J98.4 OTHER DISORDERS OF LUNG 12/11/2017 AUDREY AYOUB ACUTE CARE PHYSICIAN Ot I26.99 OTHER PULMONARY EMBOLISM WITHOUT ACUTE C 12/11/2017 AUDREY AYOUB ACUTE CARE PHYSICIAN Ot J44.9 CHRONIC OBSTRUCTIVE PULMONARY DISEASE, U 12/11/2017 AUDREY AYOUB ACUTE CARE PHYSICIAN Ot J98.4 OTHER DISORDERS OF LUNG 12/11/2017 AUDREY AYOUB ACUTE CARE PHYSICIAN Ot R09.02 HYPOXEMIA 12/11/2017 AUDREY AYOUB ACUTE CARE PHYSICIAN Ot E07.9 DISORDER OF THYROID, UNSPECIFIED 12/11/2017 AUDREY AYOUB ACUTE CARE PHYSICIAN Ot F41.9 ANXIETY DISORDER, UNSPECIFIED 12/11/2017 AUDREY AYOUB ACUTE CARE PHYSICIAN Ot G47.30 SLEEP APNEA, UNSPECIFIED 12/11/2017 AUDREY AYOUB ACUTE CARE PHYSICIAN Ot J44.9 CHRONIC OBSTRUCTIVE PULMONARY DISEASE, U 12/11/2017 AUDREY AYOUB ACUTE CARE PHYSICIAN Ot J45.909 UNSPECIFIED ASTHMA, UNCOMPLICATED 12/11/2017 AUDREY AYOUB ACUTE CARE PHYSICIAN Ot J98.4 OTHER DISORDERS OF LUNG 12/11/2017 AUDREY AYOUB ACUTE CARE PHYSICIAN Ot R09.02 HYPOXEMIA 12/11/2017 IESHA AYOUBINE E ACUTE CARE PHYSICIAN Ot R94.2 ABNORMAL RESULTS OF PULMONARY FUNCTION S 12/13/2017 AUDREY AYOUB ACUTE CARE PHYSICIAN Ot J42 UNSPECIFIED CHRONIC BRONCHITIS 12/13/2017 AUDREY AYOUB ACUTE CARE PHYSICIAN Ot J45.909 UNSPECIFIED ASTHMA, UNCOMPLICATED 12/13/2017 AUDREY AYOUB ACUTE CARE PHYSICIAN Ot J98.4 OTHER DISORDERS OF LUNG 12/13/2017 AUDREY AYOUB ACUTE CARE PHYSICIAN Ot R09.02 HYPOXEMIA 12/13/2017 AUDREY AYOUB ACUTE CARE PHYSICIAN Ot R94.2 ABNORMAL RESULTS OF PULMONARY FUNCTION S 12/19/2017 AUDREY AYOUB ACUTE CARE PHYSICIAN Ot J42 UNSPECIFIED CHRONIC BRONCHITIS 12/19/2017 AUDREY AYOUB ACUTE CARE PHYSICIAN Ot J45.909 UNSPECIFIED ASTHMA, UNCOMPLICATED 12/19/2017 AUDREY AYOUB ACUTE CARE PHYSICIAN Ot J98.4 OTHER DISORDERS OF LUNG 12/20/2017 AUDREY AYOUB ACUTE CARE PHYSICIAN Ot E04.1 NONTOXIC SINGLE THYROID NODULE 12/20/2017 AUDREY AYOUB ACUTE CARE PHYSICIAN Ot F41.9 ANXIETY DISORDER, UNSPECIFIED 12/20/2017 AUDREY AYOUB ACUTE CARE PHYSICIAN Ot I26.99 OTHER PULMONARY EMBOLISM WITHOUT ACUTE C 12/20/2017 AUDREY AYOUB ACUTE CARE PHYSICIAN Ot J44.9 CHRONIC OBSTRUCTIVE PULMONARY DISEASE, U 12/20/2017 AUDREY AYOUB ACUTE CARE PHYSICIAN Ot J98.4 OTHER DISORDERS OF LUNG 12/27/2017 AUDREY AYOUB ACUTE CARE PHYSICIAN Ot J42 UNSPECIFIED CHRONIC BRONCHITIS 12/27/2017 AUDREY AYOUB ACUTE CARE PHYSICIAN Ot J45.909 UNSPECIFIED ASTHMA, UNCOMPLICATED 12/27/2017 AUDREY AYOUB ACUTE CARE PHYSICIAN Ot J98.4 OTHER DISORDERS OF LUNG 12/27/2017 AUDREY AYOUB ACUTE CARE PHYSICIAN Ot R09.02 HYPOXEMIA 12/27/2017 IESHA AYOUBINE E ACUTE CARE PHYSICIAN Ot R94.2 ABNORMAL RESULTS OF PULMONARY FUNCTION S 01/03/2018 AUDREY AYOUB ACUTE CARE PHYSICIAN Ot J42 UNSPECIFIED CHRONIC BRONCHITIS 01/03/2018 AUDREY AYOUB ACUTE CARE PHYSICIAN Ot J45.909 UNSPECIFIED ASTHMA, UNCOMPLICATED 01/03/2018 AUDREY AYOUB ACUTE CARE PHYSICIAN Ot J98.4 OTHER DISORDERS OF LUNG 03/07/2018 AUDREY AYOUB ACUTE CARE PHYSICIAN Ot E07.9 DISORDER OF THYROID, UNSPECIFIED 03/07/2018 AUDREY AYOUB ACUTE CARE PHYSICIAN Ot F41.9 ANXIETY DISORDER, UNSPECIFIED 03/07/2018 AUDREY AYOUB ACUTE CARE PHYSICIAN Ot G47.30 SLEEP APNEA, UNSPECIFIED 03/07/2018 AUDREY AYOUB E ACUTE CARE PHYSICIAN Ot J44.9 CHRONIC OBSTRUCTIVE PULMONARY DISEASE, U 03/07/2018 IESHA YAOUBINE E ACUTE CARE PHYSICIAN Ot J45.909 UNSPECIFIED ASTHMA, UNCOMPLICATED 03/07/2018 MEGAAUDREY MAGANA ACUTE CARE PHYSICIAN Ot J98.4 OTHER DISORDERS OF LUNG 03/07/2018 AUDREY AYOUB ACUTE CARE PHYSICIAN Ot R09.02 HYPOXEMIA 03/07/2018 AUDREY AYOUB ACUTE CARE PHYSICIAN Ot R94.2 ABNORMAL RESULTS OF PULMONARY FUNCTION S 03/08/2018 AUDREY AYOUB ACUTE CARE PHYSICIAN Ot E07.9 DISORDER OF THYROID, UNSPECIFIED 03/08/2018 AUDREY AYOUB ACUTE CARE PHYSICIAN Ot F41.9 ANXIETY DISORDER, UNSPECIFIED 03/08/2018 AUDREY AYOUB ACUTE CARE PHYSICIAN Ot G47.30 SLEEP APNEA, UNSPECIFIED 03/08/2018 AUDREY AYOUB ACUTE CARE PHYSICIAN Ot J44.9 CHRONIC OBSTRUCTIVE PULMONARY DISEASE, U 03/08/2018 AUDREY AYOUB ACUTE CARE PHYSICIAN Ot J45.909 UNSPECIFIED ASTHMA, UNCOMPLICATED 03/08/2018 AUDREY AYOUB ACUTE CARE PHYSICIAN Ot J98.4 OTHER DISORDERS OF LUNG 03/08/2018 AUDREY AYOUB ACUTE CARE PHYSICIAN Ot R09.02 HYPOXEMIA 03/08/2018 AUDREY AYOUB ACUTE CARE PHYSICIAN Ot R94.2 ABNORMAL RESULTS OF PULMONARY FUNCTION S 04/03/2018 Carolina Barry M79.7 Fibromyalgia 04/10/2018 Carolina Barry M79.7 Fibromyalgia 04/10/2018 P M542 Cervicalgia 04/10/2018 S R51 Headache 07/17/2018 AUDREY AYOUB ACUTE CARE PHYSICIAN Ot E07.9 DISORDER OF THYROID, UNSPECIFIED 07/17/2018 AUDREY AYOUB ACUTE CARE PHYSICIAN Ot F41.9 ANXIETY DISORDER, UNSPECIFIED 07/17/2018 AUDREY AYOUB ACUTE CARE PHYSICIAN Ot G47.30 SLEEP APNEA, UNSPECIFIED 07/17/2018 AUDREY AYOUB ACUTE CARE PHYSICIAN Ot J44.9 CHRONIC OBSTRUCTIVE PULMONARY DISEASE, U 07/17/2018 AUDREY AYOUB ACUTE CARE PHYSICIAN Ot J45.909 UNSPECIFIED ASTHMA, UNCOMPLICATED 07/17/2018 AUDREY AYOUB ACUTE CARE PHYSICIAN Ot J98.4 OTHER DISORDERS OF LUNG 07/17/2018 AUDREY AYOUB ACUTE CARE PHYSICIAN Ot R09.02 HYPOXEMIA 07/17/2018 AUDREY AYOUB ACUTE CARE PHYSICIAN Ot R94.2 ABNORMAL RESULTS OF PULMONARY FUNCTION S 07/17/2018 AUDREY AYOUB ACUTE CARE PHYSICIAN Ot E07.9 DISORDER OF THYROID, UNSPECIFIED 07/17/2018 AUDREY AYOUB ACUTE CARE PHYSICIAN Ot F41.9 ANXIETY DISORDER, UNSPECIFIED 07/17/2018 MEGAAUDREY MAGANA ACUTE CARE PHYSICIAN Ot G47.30 SLEEP APNEA, UNSPECIFIED 07/17/2018 AUDREY AYOUB ACUTE CARE PHYSICIAN Ot J44.9 CHRONIC OBSTRUCTIVE PULMONARY DISEASE, U 07/17/2018 AUDREY AYOUB ACUTE CARE PHYSICIAN Ot J45.909 UNSPECIFIED ASTHMA, UNCOMPLICATED 07/17/2018 AUDREY AYOUB ACUTE CARE PHYSICIAN Ot J98.4 OTHER DISORDERS OF LUNG 07/17/2018 AUDREY AYOUB ACUTE CARE PHYSICIAN Ot R09.02 HYPOXEMIA 07/17/2018 AUDREY AYOUB ACUTE CARE PHYSICIAN Ot R94.2 ABNORMAL RESULTS OF PULMONARY FUNCTION S 07/17/2018 BRYAN GRULLON, MATILDE Ot Z01.818 ENCOUNTER FOR OTHER PREPROCEDURAL EXAMIN 07/18/2018 AUDREY AYOUB ACUTE CARE PHYSICIAN Ot G47.30 SLEEP APNEA, UNSPECIFIED 07/18/2018 AUDREY AYOUB ACUTE CARE PHYSICIAN Ot J42 UNSPECIFIED CHRONIC BRONCHITIS 07/18/2018 AUDREY AYOUB ACUTE CARE PHYSICIAN Ot J44.9 CHRONIC OBSTRUCTIVE PULMONARY DISEASE, U 07/18/2018 AUDREY AYOUB ACUTE CARE PHYSICIAN Ot J45.909 UNSPECIFIED ASTHMA, UNCOMPLICATED 07/18/2018 AUDREY AYOUB ACUTE CARE PHYSICIAN Ot K76.0 FATTY (CHANGE OF) LIVER, NOT ELSEWHERE C 07/18/2018 AUDREY AYOUB ACUTE CARE PHYSICIAN Ot R16.2 HEPATOMEGALY WITH SPLENOMEGALY, NOT ELSE 07/18/2018 AUDREY AYOUB ACUTE CARE PHYSICIAN Ot Z86.11 PERSONAL HISTORY OF TUBERCULOSIS 07/18/2018 CORINE MEDINAWEN Ot E04.1 NONTOXIC SINGLE THYROID NODULE 07/18/2018 CORINE DO WEN M Ot I26.99 OTHER PULMONARY EMBOLISM WITHOUT ACUTE C 07/18/2018 CORINE DOWEN Ot K43.9 VENTRAL HERNIA WITHOUT OBSTRUCTION OR GA 07/18/2018 CORINE DO WEN Mckenzie Ot K76.0 FATTY (CHANGE OF) LIVER, NOT ELSEWHERE C 07/18/2018 WEN POOL DO Ot R22.43 LOCALIZED SWELLING, MASS AND LUMP, LOWER 07/18/2018 AUDREY AYOUB ACUTE CARE PHYSICIAN Ot J44.9 CHRONIC OBSTRUCTIVE PULMONARY DISEASE, U 07/18/2018 AUDREY AYOUB ACUTE CARE PHYSICIAN Ot E04.1 NONTOXIC SINGLE THYROID NODULE 07/18/2018 AUDREY AYOUB ACUTE CARE PHYSICIAN Ot F41.9 ANXIETY DISORDER, UNSPECIFIED 07/18/2018 AUDREY AYOUB ACUTE CARE PHYSICIAN Ot I26.99 OTHER PULMONARY EMBOLISM WITHOUT ACUTE C 07/18/2018 AUDREY AYOUB ACUTE CARE PHYSICIAN Ot J44.9 CHRONIC OBSTRUCTIVE PULMONARY DISEASE, U 07/18/2018 AUDREY AYOUB ACUTE CARE PHYSICIAN Ot J98.4 OTHER DISORDERS OF LUNG 07/18/2018 AUDREY AYOUB ACUTE CARE PHYSICIAN Ot I26.99 OTHER PULMONARY EMBOLISM WITHOUT ACUTE C 07/18/2018 AUDREY AYOUB ACUTE CARE PHYSICIAN Ot J44.9 CHRONIC OBSTRUCTIVE PULMONARY DISEASE, U 07/18/2018 AUDREY AYOUB ACUTE CARE PHYSICIAN Ot J98.4 OTHER DISORDERS OF LUNG 07/18/2018 AUDREY AYOUB ACUTE CARE PHYSICIAN Ot R09.02 HYPOXEMIA 07/18/2018 AUDREY AYOUB ACUTE CARE PHYSICIAN Ot J42 UNSPECIFIED CHRONIC BRONCHITIS 07/18/2018 AUDREY AYOUB ACUTE CARE PHYSICIAN Ot J45.909 UNSPECIFIED ASTHMA, UNCOMPLICATED 07/18/2018 AUDREY AYOUB ACUTE CARE PHYSICIAN Ot J98.4 OTHER DISORDERS OF LUNG 07/18/2018 AUDREY AYOUB ACUTE CARE PHYSICIAN Ot J42 UNSPECIFIED CHRONIC BRONCHITIS 07/18/2018 AUDREY AYOUB ACUTE CARE PHYSICIAN Ot J45.909 UNSPECIFIED ASTHMA, UNCOMPLICATED 07/18/2018 AUDREY AYOUB ACUTE CARE PHYSICIAN Ot J98.4 OTHER DISORDERS OF LUNG 07/18/2018 AUDREY AYOUB ACUTE CARE PHYSICIAN Ot R09.02 HYPOXEMIA 07/18/2018 AUDREY AYOUB ACUTE CARE PHYSICIAN Ot R94.2 ABNORMAL RESULTS OF PULMONARY FUNCTION S 07/18/2018 AUDREY AYOUB ACUTE CARE PHYSICIAN Ot E07.9 DISORDER OF THYROID, UNSPECIFIED 07/18/2018 AUDREY AYOUB ACUTE CARE PHYSICIAN Ot F41.9 ANXIETY DISORDER, UNSPECIFIED 07/18/2018 AUDREY AYOUB ACUTE CARE PHYSICIAN Ot G47.30 SLEEP APNEA, UNSPECIFIED 07/18/2018 AUDREY AYOUB ACUTE CARE PHYSICIAN Ot J44.9 CHRONIC OBSTRUCTIVE PULMONARY DISEASE, U 07/18/2018 AUDREY AYOUB APRN Ot J45.909 UNSPECIFIED ASTHMA, UNCOMPLICATED 07/18/2018 AUDREY AYOUB APRN Ot J98.4 OTHER DISORDERS OF LUNG 07/18/2018 AUDREY AYOUB APRN Ot R09.02 HYPOXEMIA 07/18/2018 AUDREY AYOUB APRN Ot R94.2 ABNORMAL RESULTS OF PULMONARY FUNCTION S 07/23/2018 MATILDE ADAMS MD Ot G47.33 OBSTRUCTIVE SLEEP APNEA (ADULT) (PEDIATR 07/23/2018 MATILDE ADAMS MD, Ot J44.9 CHRONIC OBSTRUCTIVE PULMONARY DISEASE, U 07/23/2018 MATILDE ADAMS MD Ot K21.0 GASTRO-ESOPHAGEAL REFLUX DISEASE WITH ES 07/23/2018 MATILDE ADAMS MD Ot K29.70 GASTRITIS, UNSPECIFIED, WITHOUT BLEEDING 07/23/2018 MATILDE ADAMS MD Ot K44.9 DIAPHRAGMATIC HERNIA WITHOUT OBSTRUCTION 07/23/2018 MATILDE ADAMS MD Ot Z79.899 OTHER INTERMEDIATE (CURRENT) DRUG THERAPY 08/02/2018 AUDREY AYOUB APRN Ot G47.00 INSOMNIA, UNSPECIFIED 08/02/2018 AUDREY AYOUB APRN Ot G47.30 SLEEP APNEA, UNSPECIFIED 08/02/2018 AUDREY AYOUB APRN Ot J44.9 CHRONIC OBSTRUCTIVE PULMONARY DISEASE, U 08/02/2018 AUDREY AYOUB APRN Ot Z01.818 ENCOUNTER FOR OTHER PREPROCEDURAL EXAMIN 08/06/2018 Carolina Barry M79.7 Fibromyalgia 08/13/2018 Carolina Barry M79.7 Fibromyalgia 08/17/2018 MATILDE ADAMS MD, Ot K21.9 GASTRO-ESOPHAGEAL REFLUX DISEASE WITHOUT 08/17/2018 BRYAN GRULLON, MATILDE Ot Z01.818 ENCOUNTER FOR OTHER PREPROCEDURAL EXAMIN Procedures Code Description [place] [id number] OFFICE/OUTPATIENT VISIT NEW 04/03/2018 [id number] OFFICE/OUTPATIENT VISIT EST 08/06/2018 Results Test Result Range Arterial blood gas [...] - 01/19/18 12:08 DOMINGA Direct Negative Negative Arterial blood gas measurement - 07/31/18 11:24 Blood pCO2 41 mm[Hg] 35-45 Blood pO2 77 mm[Hg] 79-93 Arterial blood bicarbonate measurement (moles/volume) 26 mmol/L 23-27 Arterial blood base excess by calculation 2.1 mmol/L -2.5 -2.5 Arterial blood oxygen saturation measurement 97 % 94-100 * Inhaled oxygen flow rate 3L NRG Arterial blood pH measurement with patient temperature correction 7.42 7.37-7.43 Arterial blood carbon dioxide, total measurement (moles/volume) 27.5 mmol/L 21.0-31.0 Body site RR NRG Assessment of wrist artery patency prior to arterial puncture YES- POS NRG Setting of ventilation mode NO NRG Measurement of body temperature 98.0 NRG Vitamin B1 (Thiamine), Blood - 08/01/18 12:20 Vit. B1, Whole Blood 137.0 nmol/L 66.5-200.0 Encounters ACCT No. Visit Date/Time Discharge Status Pt. Type Provider Facility Loc./Unit Complaint [id number] 08/13/2018 13:49:27 08/13/2018 23:59:59 CLS Outpatient Aurora Martin [id number] 08/12/2018 13:55:43 08/12/2018 23:59:59 CLS Outpatient Aurora Martin [id number] 07/20/2018 16:46:18 07/20/2018 23:59:59 CLS Outpatient HetlingerSean [id number] 04/11/2018 13:52:57 04/11/2018 23:59:59 CLS Outpatient Jacky Fredis [id number] 03/29/2018 15:19:47 03/29/2018 23:59:59 CLS Outpatient HetlingerSean [id number] 03/09/2018 09:51:30 03/09/2018 23:59:59 CLS Outpatient HetlingerSean [id number] 02/28/2018 08:52:38 02/28/2018 23:59:59 CLS Outpatient Jacky Fredis [id number] 01/29/2018 17:36:47 01/29/2018 23:59:59 CLS Outpatient ChristalArelyLaine [id number] 01/19/2018 11:26:07 01/19/2018 23:59:59 CLS Outpatient HetlingerSean [id number] 10/27/2017 10:00:45 10/27/2017 23:59:59 CLS Outpatient Rico, Fredis [id number] 10/23/2017 09:29:56 10/23/2017 23:59:59 CLS Outpatient Hetlinger Sean [id number] 09/20/2017 12:18:44 09/20/2017 23:59:59 CLS Outpatient RicoFredis [id number] 08/31/2017 15:49:06 08/31/2017 23:59:59 CLS Outpatient Rico Fredis [id number] 08/09/2017 10:08:51 08/09/2017 23:59:59 CLS Outpatient Hetlinger Sean [id number] 07/07/2017 09:35:41 07/07/2017 23:59:59 CLS Outpatient Hetlinger Sean [id number] 06/16/2017 11:07:00 06/16/2017 23:59:59 CLS Outpatient Hetlinger Sean [id number] 05/15/2017 09:46:10 05/15/2017 23:59:59 CLS Outpatient Hetlinger Sean [id number] 04/23/2017 14:14:47 04/23/2017 23:59:59 CLS Outpatient Aurora Martin [id number] 04/14/2017 09:19:24 04/14/2017 23:59:59 CLS Outpatient HetlingerSean [id number] 03/20/2017 15:22:17 03/20/2017 23:59:59 CLS Outpatient HetlingerSean [id number] 03/03/2017 17:59:33 03/03/2017 23:59:59 CLS Outpatient Aurora Martin [id number] 01/09/2017 14:30:18 01/09/2017 23:59:59 CLS Outpatient HetlingerSean [id number] 01/02/2017 14:28:33 01/02/2017 23:59:59 CLS Outpatient HetlingerSean [id number] 12/27/2016 15:56:43 12/27/2016 23:59:59 CLS Outpatient HetlingerSean [id number] 2016 09:39:41 2016 23:59:59 CLS Outpatient HetlingerSean [id number] 09/19/2016 11:06:13 09/19/2016 23:59:59 CLS Outpatient HetlingerSean [id number] 07/01/2016 09:18:55 07/01/2016 23:59:59 CLS Outpatient HetlingerSean [id number] 06/17/2016 11:21:34 06/17/2016 23:59:59 CLS Outpatient HetlingerSean [id number] 06/02/2016 11:45:43 06/02/2016 23:59:59 CLS Outpatient Michelle Greco [id number] 05/20/2016 10:07:14 05/20/2016 23:59:59 CLS Outpatient HetlingerSean [id number] 04/01/2016 10:43:20 04/01/2016 23:59:59 CLS Outpatient HetlingerSean [id number] 12/09/2015 18:02:06 12/09/2015 23:59:59 CLS Outpatient Miguel A Munoz [id number] 11/17/2015 15:42:52 11/17/2015 23:59:59 CLS Outpatient HetlingerSean [id number] 11/03/2015 09:17:08 11/03/2015 23:59:59 CLS Outpatient HetlingerSean [id number] 10/09/2015 09:43:07 10/09/2015 23:59:59 CLS Outpatient Hetlinger, Sean [id number] 08/31/2015 15:29:16 08/31/2015 23:59:59 CLS Outpatient Hetlinger, Sean [id number] 08/25/2015 11:01:57 08/25/2015 23:59:59 CLS Outpatient HetlingerSean [id number] 06/05/2015 10:21:13 06/05/2015 23:59:59 CLS Outpatient HetlingerSean [id number] 06/01/2015 07:40:23 06/01/2015 23:59:59 CLS Outpatient Angus Michelle Sean [id number] 05/11/2015 22:33:28 05/11/2015 23:59:59 CLS Outpatient Amaris Gentile [id number] 05/11/2015 22:31:59 05/11/2015 23:59:59 CLS Outpatient Richard Kiarra [id number] 05/11/2015 22:07:32 05/11/2015 23:59:59 CLS Outpatient HetlingerSean [id number] 05/11/2015 22:03:31 05/11/2015 23:59:59 CLS Outpatient HetlingerSean [id number] 05/11/2015 21:59:14 05/11/2015 23:59:59 CLS Outpatient HetlingerSean [id number] 05/11/2015 21:28:40 05/11/2015 23:59:59 CLS Outpatient HetlingSean magana [id number] 01/26/2015 16:10:40 01/26/2015 23:59:59 CLS Outpatient Leena Haddad [id number] 01/12/2015 09:52:09 01/12/2015 23:59:59 CLS Outpatient HetlingSean magana [id number] 10/22/2014 14:36:19 10/22/2014 23:59:59 CLS Outpatient Miguel A Munoz [id number] 08/22/2014 09:31:15 08/22/2014 23:59:59 CLS Outpatient HetlingSean magana [id number] 08/01/2014 10:40:38 08/01/2014 23:59:59 CLS Outpatient HetlingerSean [id number] 06/09/2014 15:49:13 06/09/2014 23:59:59 CLS Outpatient Kiarra Ramos [id number] 03/14/2014 09:18:53 03/14/2014 23:59:59 CLS Outpatient Leena aHddad [id number] 02/27/2014 14:57:30 02/27/2014 23:59:59 CLS Outpatient Leena Haddad [id number] 12/02/2013 10:40:20 12/02/2013 23:59:59 CLS Outpatient Sean Marie [id number] 11/25/2013 10:02:26 11/25/2013 23:59:59 CLS Outpatient Sean Marie [id number] 11/14/2013 15:16:36 11/14/2013 23:59:59 CLS Outpatient Kiarra Ramos [id number] 08/01/2018 12:07:55 Document Registration [id number] 07/25/2018 10:28:51 Document Registration [id number] 07/20/2018 08:59:49 Document Registration [id number] 05/22/2018 15:27:56 Document Registration [id number] 04/30/2018 10:19:47 Document Registration [id number] 03/02/2018 08:28:44 Document Registration [id number] 01/19/2018 11:47:58 Document Registration [id number] 12/04/2017 22:01:23 Document Registration [id number] 11/17/2017 14:30:23 Document Registration [id number] 11/17/2017 14:20:24 Document Registration [id number] 11/13/2017 16:14:58 Document Registration [id number] 10/17/2017 14:41:57 Document Registration [id number] 09/22/2017 16:12:37 Document Registration [id number] 09/22/2017 16:11:47 Document Registration [id number] 09/01/2017 08:49:17 Document Registration [id number] 06/16/2017 11:00:02 Document Registration [id number] 05/18/2017 13:38:17 Document Registration [id number] 05/17/2017 08:52:26 Document Registration [id number] 08/15/2018 08:11:00 08/15/2018 23:59:59 CLS Outpatient MATILDE ADAMS MD [facility] RAD REFLUX [id number] 07/31/2018 10:14:00 07/31/2018 23:59:59 CLS Outpatient MEGA, AUDREY E ACUTE CARE PHYSICIAN [facility] RAD J44.9,G47.00 [id number] 07/18/2018 11:37:00 07/18/2018 14:50:00 DIS Outpatient MATILDE ADAMS MD [facility] ENDO REFLUX [id number] 07/17/2018 14:37:00 07/17/2018 15:09:00 DIS Outpatient MATILDE ADAMS MD [facility] PREOP EGD [id number] 03/08/2018 08:15:00 03/08/2018 23:59:59 CLS Preadmit MEGA, AUDREY E ACUTE CARE PHYSICIAN [facility] PULM F41.9 ANXIETY J45.909 ASTHMA [id number] 12/19/2017 13:00:00 03/07/2018 00:01:00 DIS Outpatient MEGA, AUDREY E ACUTE CARE PHYSICIAN [facility] PULM F41.9 ANXIETY J45.909 ASTHMA [id number] 12/18/2017 11:38:00 12/18/2017 23:59:59 CLS Outpatient MEGA, AUDREY E ACUTE CARE PHYSICIAN [facility] RT RESTRICITVE LUNG DISEASE,ASTHMA [id number] 12/12/2017 15:37:00 12/12/2017 23:59:59 CLS Outpatient MEGA, AUDREY E ACUTE CARE PHYSICIAN [facility] PULM J45.909 [id number] 12/05/2017 13:54:00 12/05/2017 23:59:59 CLS Outpatient MEGA, AUDREY E ACUTE CARE PHYSICIAN [facility] RAD J45.909,J44.9 [id number] 11/30/2017 13:00:00 12/03/2017 00:01:00 DIS Outpatient MEGA, AUDREY E ACUTE CARE PHYSICIAN [facility] PULM F41.9 ANXIETY J45.909 ASTHMA [id number] 10/19/2017 15:24:00 10/19/2017 23:59:59 CLS Outpatient MEGA, AUDREY E ACUTE CARE PHYSICIAN [facility] LAB J44.9 R09.02 I26.99 J98.4 [id number] 06/30/2017 08:37:00 06/30/2017 23:59:59 CLS Outpatient AUDREY AYOUB APRN [facility] LAB J44.9 [id number] 06/29/2017 14:43:00 06/29/2017 23:59:59 CLS Outpatient CORINE MEDINA WEN Mckenzie [facility] RAD COPD,ASTHMA [id number] 06/14/2017 15:28:00 06/14/2017 23:59:59 CLS Outpatient AUDREY AYOUB APRN [facility] RAD J45.909 ASTHMA [id number] 08/30/2018 11:45:00 PEN PreadMATILDE Vo MD [facility] MORBID OBESITY [id number] 01/22/2018 11:05:00 Document Registration [id number] 08/06/2018 15:45:00 08/06/2018 23:59:59 CLS Outpatient JhonnyMeryl salesie [id number] 06/26/2018 14:46:00 06/26/2018 23:59:59 CLS Outpatient JhonnyCarolina [id number] 05/02/2018 11:05:00 05/02/2018 23:59:59 CLS Outpatient JhonnyMerylie [id number] 04/30/2018 08:38:00 04/30/2018 23:59:59 CLS Outpatient JhonnyMerylie [id number] 04/16/2018 12:00:00 04/16/2018 23:59:59 CLS Outpatient JhonnyMerylie [id number] 04/03/2018 13:30:00 04/03/2018 23:59:59 CLS Outpatient JhonnyMerylie [id number] 08/04/2018 14:05:00 Document Registration
--- OUTSIDE RECORDS SUMMARY | 2018-08-31 02:51 | XMS REPORT ---
Author Author CLEMENTE GONZALES Organization [facility] Address [address] [place] [address] Care Team Providers Care Tree Shear Operator Name Role Phone CLEMENTE GONZALES Unavailable PROBLEMS Type Condition ICD9-CM Code XQG53-PM Code Onset Dates Condition Status SNOMED Code Problem Major depressive disorder, recurrent episode, in partial remission F33.41 Active [id number] ALLERGIES No Information ENCOUNTERS Encounter Location Date Diagnosis [facility] [address] [id number] [address] Aug, [facility] [address] [id number] [address] Aug, Major depressive disorder, recurrent episode, in partial remission F33.41 IMMUNIZATIONS No Known Immunizations SOCIAL HISTORY Never Assessed REASON FOR VISIT Psychological evaluation for bariatirc surgery. PLAN OF CARE VITAL SIGNS MEDICATIONS Unknown Medications RESULTS No Results PROCEDURES Procedure Date Ordered Result Body Site Psych diagnostic evaluation, new patient Aug 15, 2018 INSTRUCTIONS MEDICATIONS ADMINISTERED No Known Medications
[2018-08-31 03:49] VITALS: BP 156/79
[2018-08-31 05:04] LABS: HEMOGLOBIN 11.9 G/DL (11.5-16.0); RED BLOOD COUNT 4.5 10^6/uL (4.35-5.85); RED CELL DISTRIBUTION WIDTH 13.6 % (10.0-14.5); WHITE BLOOD COUNT 8.9 10^3/uL (4.3-11.0)
[2018-08-31] MEDS: ceFAZolin 2 GM IV Premixed 50 ML IV SCH (05:46)
[2018-08-31] MEDS ORDERED: PANTOPRAZOLE 40 MG (PROTONIX) TAB PO SCH (07:00)
--- NOTE | 2018-08-31 07:06 | Anesthesia-General Post-Op ---
General Patient Condition Mental Status/LOC: Same as Preop Cardiovascular: Satisfactory Nausea/Vomiting: Absent Respiratory: Satisfactory Pain: Controlled Complications: Absent Post Op Complications Complications None Follow Up Care/Instructions Patient Instructions None needed. Anesthesia/Patient Condition Patient Condition Patient is doing well, no complaints, stable vital signs, no apparent adverse anesthesia problems. No complications reported per nursing. D/C home per [facility] Criteria: PRAMOD Mclean CRNA Aug 31, 2018 07:06
[2018-08-31 08:00] VITALS: BP 178/76
[2018-08-31] MEDS: ENOXAPARIN 40 MG/0.4 ML (LOVENOX) SYR SC SCH (08:31)
[2018-08-31] MEDS ORDERED: PANTOPRAZOLE 40 MG (PROTONIX) VIAL IV SCH (09:00)
[2018-08-31] MEDS ORDERED: SENNA W/DOCUSATE (SENOKOT S) TABLET PO SCH (09:00)
[2018-08-31 10:08] LABS: ALANINE AMINOTRANSFERASE 49 U/L (0-55); ALBUMIN 3.8 GM/DL (3.2-4.5); ALKALINE PHOSPHATASE 87 U/L (40-136); BILIRUBIN,TOTAL 0.4 MG/DL (0.1-1.0); BUN/CREATININE RATIO 13; CALCIUM 9.2 MG/DL (8.5-10.1); CARBON DIOXIDE 26 MMOL/L (21-32); CHLORIDE 104 MMOL/L (98-107); CREATININE SERUM 0.68 MG/DL (0.60-1.30); GFR ESTIMATED > 60; GLUCOSE 99 MG/DL (70-105); POTASSIUM 4.1 MMOL/L (3.6-5.0); SODIUM 140 MMOL/L (135-145); TOTAL PROTEIN 6.5 GM/DL (6.4-8.2)
[2018-08-31 12:00] VITALS: BP 185/79
--- NOTE | 2018-08-31 12:02 | Consultation-Hospitalist ---
HPI History of Present Illness: HPI/Chief Complaint CC: Gastric sleeve medical management HPI: This is a 52yoWF clinic patient of Dr Marie in [place], [place] who presents to med-surg after an uncomplicated gastric sleeve procedure by Dr Rueda. Pt wears O2 at home and uses Nebs prn. She feels good currently from a lung standpoint. Source: patient Exam Limitations: no limitations Date Seen 08/31/18 Attending Physician Eliu Rueda MD PCP Sean Marie MD Referring Physician Date of Admission Aug 30, 2018 at 11:18 Home Medications & Allergies Home Medications Reviewed patient Home Medication Reconciliation performed by pharmacy medication reconciliations senior controls technician and/or nursing. Patients Allergies have been reviewed. 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) Alcohol Use: Rarely Uses Number of Drinks Today: 0 Recreational Drug Use: No Smoking Status: Never a Smoker Physical Abuse Screen: No Sexual Abuse: No Recent Foreign Travel: No Contact w/other who traveled: No Recent Hopitalizations: No Recent Infectious Disease Expo: No Immunizations Up To Date Tetanus Booster (TDap): Unknown Date of Pneumonia Vaccine: Jul 02, 2016 Date of Influenza Vaccine: May 31, 2018 Seasonal Allergies Seasonal Allergies: Yes Past Medical History Surgeries: Abdominal Respiratory: COPD, Emphysema Currently Using CPAP: Yes Cardiac: Heart Murmur Neurological: Neuropathy Reproductive: No Sexually Transmitted Disease: No HIV/AIDS: No Female Reproductive Disorders: Denies Hysterectomy Genitourinary: Neurogenic Bladder Gastrointestinal: Gastroesophageal Reflux, Chronic Constipation Musculoskeletal: Arthritis, Fibromyalgia, Chronic Back Pain, Fractures Loss of Vision: Bilateral Hearing Impairment: Denies Psychosocial: Anxiety, Depression History of Blood Disorders: Yes (HX ANEMIA) Adverse Reaction to Blood Faust: No (HAS HAD BLOOD WITH NO REACTION) Review of Systems Constitutional: see HPI, weakness Respiratory: no symptoms reported Cardiovascular: no symptoms reported Gastrointestinal: abdominal pain (RUQ) Genitourinary: no symptoms reported Musculoskeletal: no symptoms reported Skin: no symptoms reported Psychiatric/Neurological: No Symptoms Reported All Other Systems Reviewed Negative Unless Noted: Yes Physical Exam Physical Exam Vital Signs Vital Signs - First Documented 08/30/18 08/30/18 08/31/18 11:30 18:32 07:50 Temp 98.9 Pulse 82 Resp 16 B/P (MAP) 138/76 (96) Pulse Ox 99 O2 Delivery Room Air O2 Flow Rate 3.00 FiO2 50 Capillary Refill : Height, Weight, BMI Height: 5'4.00" Weight: 272lbs. 1.0oz. 123.285541yr; 46.7 BMI Method: General Appearance: WD/WN, Chronically ill, Moderate Distress, Obese Eyes: Bilateral Eye Normal Inspection, Bilateral Eye PERRL HEENT: PERRL/EOMI, Normal ENT Inspection, Pharynx Normal Neck: Full Range of Motion, Normal Inspection, Non Tender, Supple, Carotid Bruit Respiratory: Chest Non Tender, Lungs Clear, Normal Breath Sounds, No Accessory Muscle Use, No Respiratory Distress Cardiovascular: Regular Rate, Rhythm, No Edema, No Gallop, No JVD, No Murmur, Normal Peripheral Pulses Back: Normal Inspection, No CVA Tenderness, No Vertebral Tenderness Extremity: Normal Capillary Refill, Normal Inspection, Normal Range of Motion, Non Tender, No Calf Tenderness, No Pedal Edema Neurologic/Psychiatric: Alert, Oriented x3, No Motor/Sensory Deficits, Normal Mood/Affect Skin: Normal Color, Warm/Dry Lymphatic: No Adenopathy Results Results/Procedures Labs Laboratory Tests 08/31/18 04:53 08/31/18 09:40 Patient resulted labs reviewed. Assessment/Plan Assessment and Plan Assess & Plan/Chief Complaint Assessment: s/p gastric sleeve POD # 1 COPD Hypoxia on home O2 Obesity Plan: O2 Nebs prn Lungs stable currently Clinical Quality Measures DVT/VTE Risk/Contraindication: Risk Factor Score Per Nursin RFS Level Per Nursing on Admit: 4+=Very High POLO CUELLAR DO Aug 31, 2018 12:02
--- NOTE | 2018-08-31 14:00 | Progress Note (SOAP) ---
Subjective Date Seen by a Provider: Aug 31, 2018 Time Seen by a Provider: 13:45 Subjective/Events-last exam Patient reports doing well. Does report abdominal pain but controlled on medication. Denies any N/V. Tolerating clear liquids. No fever/chills. Ambulating. Objective Exam Vital Signs Date Time Temp Pulse Resp B/P (MAP) Pulse Ox O2 Delivery O2 Flow Rate FiO2 08/31/18 12:00 99.8 91 18 185/79 (114) 91 Nasal Cannula 3.00 08/31/18 10:32 98 Nasal Cannula 3.00 50 08/31/18 09:00 Nasal Cannula 3.00 08/31/18 08:00 98.5 72 17 178/76 (110) 98 Nasal Cannula 3.00 08/31/18 07:50 97 Nasal Cannula 3.00 50 08/31/18 05:51 18 08/31/18 03:49 97.6 85 18 156/79 (104) 100 Nasal Cannula 3.00 08/31/18 02:21 97 NIV CPAP 3.00 08/31/18 00:07 98.3 85 18 168/80 (109) 97 Nasal Cannula 3.00 08/30/18 21:18 96 NIV CPAP 3.00 08/30/18 20:00 Nasal Cannula 3.00 08/30/18 19:20 16 08/30/18 19:00 91 Nasal Cannula 2.00 08/30/18 19:00 97.3 84 18 152/67 (95) 93 Nasal Cannula 3.00 08/30/18 18:32 Nasal Cannula 3.00 I & O 08/31/18 07:00 Intake Total 2300 ml Output Total 1245 ml Balance 1055 ml Capillary Refill : General Appearance: No Apparent Distress, WD/WN Respiratory: Lungs Clear, Normal Breath Sounds, No Accessory Muscle Use, No Respiratory Distress Cardiovascular: Regular Rate, Rhythm, No Edema Gastrointestinal: normal bowel sounds, soft, tenderness, other (NATHEN drain in place with clear, watery, red sang. drainage) Extremity: Normal Capillary Refill, Normal Inspection, Normal Range of Motion Neurologic/Psychiatric: Alert, Oriented x3 Skin: Normal Color, Warm/Dry, Other (Lap incisions C/D/I) Results Lab Laboratory Tests 08/31/18 04:53: White Blood Count 8.9, Red Blood Count 4.50, Hemoglobin 11.9, Hematocrit 38, Mean Corpuscular Volume 84, Mean Corpuscular Hemoglobin 26, Mean Corpuscular Hemoglobin Concent 32, Red Cell Distribution Width 13.6, Platelet Count 209, Mean Platelet Volume 11.0H 08/31/18 09:40: Sodium Level 140, Potassium Level 4.1, Chloride Level 104, Carbon Dioxide Level 26, Anion Gap 10, Blood Urea Nitrogen 9, Creatinine 0.68, Estimat Glomerular Filtration Rate > 60, BUN/Creatinine Ratio 13, Glucose Level 99, Calcium Level 9.2, Corrected Calcium 9.4, Total Bilirubin 0.4, Aspartate Amino Transf (AST/ SGOT) 41H, Alanine Aminotransferase (ALT/SGPT) 49, Alkaline Phosphatase 87, Total Protein 6.5, Albumin 3.8 Assessment/Plan Assessment/Plan Assess & Plan/Chief Complaint A 52 year old female with morbid obesity and HTN who is S/P lap gastric sleeve resection. VSS. Ambulating. Tolerating clear liquids. Pain and Nausea controlled. OK to DC home. Clinical Quality Measures DVT/VTE Risk/Contraindication: Risk Factor Score Per Nursin RFS Level Per Nursing on Admit: 4+=Very High SUSAN MURRAY SNUFF CONTAINER INSPECTOR Aug 31, 2018 1:59 pm
[2018-08-31 15:45] VITALS: BP 185/79
[2018-08-31] MEDS ORDERED: METOCLOPRAMIDE INJ 10 MG/2 ML (REGLAN) IVP PRN (16:45)
[2018-08-31] MEDS ORDERED: ONDANSETRON 4 MG/2 ML (SDV) Z0FRAN IVP PRN (16:45)
== END 2018-08-31 15:50 | disposition home or self-care (01) | DRG 621 ==
LOC: 4TH 11:18 → SURG 11:19 → EDSTATUS 11:45 → 4TH 17:55
PROVIDERS: ADMIT Surgery; ATTEND Surgery
PROC: 0DB64Z3 Excision of Stomach, Percutaneous Endoscopic Approach, Vertical (ICD-10-PCS; principal; 2018-08-30 14:10)
DX: E66.01 Morbid (severe) obesity due to excess calories (principal); Z68.42 Body mass index [BMI] 45.0-49.9, adult; I10 Essential (primary) hypertension; G47.33 Obstructive sleep apnea (adult) (pediatric); M17.0 Bilateral primary osteoarthritis of knee; M16.0 Bilateral primary osteoarthritis of hip; E78.00 Pure hypercholesterolemia, unspecified; F41.9 Anxiety disorder, unspecified; F32.9 Major depressive disorder, single episode, unspecified; J43.9 Emphysema, unspecified; G62.9 Polyneuropathy, unspecified; R01.1 Cardiac murmur, unspecified; K21.9 Gastro-esophageal reflux disease without esophagitis; K59.09 Other constipation; M79.7 Fibromyalgia; D32.9 Benign neoplasm of meninges, unspecified; N31.9 Neuromuscular dysfunction of bladder, unspecified; R09.02 Hypoxemia; E03.9 Hypothyroidism, unspecified; G47.00 Insomnia, unspecified; G25.81 Restless legs syndrome; Z80.3 Family history of malignant neoplasm of breast; Z80.1 Family history of malignant neoplasm of trachea, bronchus and lung; Z99.81 Dependence on supplemental oxygen; Z86.2 Personal history of diseases of the blood and blood-forming organs and certain disorders involving the immune mechanism
CPT/HCPCS: 36415; 80053; 85027; 88305; 94664; 94760

== ENCOUNTER 2018-08-31 22:25 | Emergency (ER) | payer SELFPAY ==
[~2018-08-31] VITALS: Ht 162.6 cm; Wt 123.4 kg
[2018-08-31] MEDS ORDERED: NS IV 1000 ML 1,000 ML IV STA (23:23)
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
--- OUTSIDE RECORDS SUMMARY | 2018-09-01 00:18 | XMS REPORT | Continuity of Care Document ---
Author Author [facility] Address Unknown Phone Unavailable Allergies Active Description Code Type Severity Reaction Onset Reported/Identified Relationship to Patient Clinical Status Yes ALBUTEROL [id number] DRUG N/A TACHYCARDIA Yes PERCOCET [id number] BRANDNAME N/ A ITCHING Yes No Allergy Information Available [id number] Drug Allergy Unknown N/A 2016 Yes acetaminophen [id number] Drug Allergy Unknown N/A 07/18/2018 Yes albuterol [id number] Drug Allergy Unknown tachycardia 07/18/2018 Yes estrogens, conjugated [id number] Drug Allergy Unknown N/A 07/18/2018 Yes oxycodone [id number] Drug Allergy Unknown N/A 07/18/2018 Yes pregabalin [id number] Drug Allergy Unknown N/A 07/18/2018 Medications Medication [...] APRN, Ot J45.909 UNSPECIFIED ASTHMA, UNCOMPLICATED 06/28/2017 UADREY AYOUB APRN Ot K76.0 FATTY (CHANGE OF) LIVER, NOT ELSEWHERE C 06/28/2017 AUDREY AYOUB CURATOR [employer] Ot R16.2 HEPATOMEGALY WITH SPLENOMEGALY, NOT ELSE 06/28/2017 AUDREY AYOUB CURATOR [employer]USE[employer] Ot Z86.11 PERSONAL HISTORY OF TUBERCULOSIS 06/30/2017 AUDREY AYOUB APRN Ot G47.30 SLEEP APNEA, UNSPECIFIED 06/30/2017 AUDREY AYOUB CURATOR [employer]USE[employer] Ot J42 UNSPECIFIED CHRONIC BRONCHITIS 06/30/2017 AUDREY AYOUB CURATOR [employer]IST[employer]USE[employer] Ot J44.9 CHRONIC OBSTRUCTIVE PULMONARY DISEASE, U 06/30/2017 AUDREY AYOUB APRN Ot J45.909 UNSPECIFIED ASTHMA, UNCOMPLICATED 06/30/2017 AUDREY AYOUB APRN Ot K76.0 FATTY (CHANGE OF) LIVER, NOT ELSEWHERE C 06/30/2017 AUDREY AYOUB APRN Ot R16.2 HEPATOMEGALY WITH SPLENOMEGALY, NOT ELSE 06/30/2017 AUDREY AYOUB CURATOR [employer]ISTORY MUSE[employer] Ot Z86.11 PERSONAL HISTORY OF TUBERCULOSIS 07/12/2017 [...] MASS AND LUMP, LOWER 07/12/2017 AUDREY AYOUB CURATOR [employer]USE[employer] Ot J44.9 CHRONIC OBSTRUCTIVE PULMONARY DISEASE, U 10/17/2017 P R300 Dysuria 10/19/2017 AUDREY AYOUB CURATOR [employer] Ot G47.30 SLEEP APNEA, UNSPECIFIED 10/19/2017 AUDREY AYOUB CURATOR [employer] Ot J42 UNSPECIFIED CHRONIC BRONCHITIS 10/19/2017 AUDREY AYOUB CURATOR [employer]ISTORY MUSE[employer] Ot J44.9 CHRONIC OBSTRUCTIVE PULMONARY DISEASE, U 10/19/2017 AUDREY AYOUB CURATOR [employer]ORY MUSE[employer] Ot J45.909 UNSPECIFIED ASTHMA, UNCOMPLICATED 10/19/2017 AUDREY [...] OBSTRUCTIVE PULMONARY DISEASE, U 10/19/2017 AUDREY AYOUB CURATOR [employer]ISTORY MUSE[employer] Ot J45.909 UNSPECIFIED ASTHMA, UNCOMPLICATED 10/19/2017 AUDREY AYOUB APRN Ot J98.4 OTHER DISORDERS OF LUNG 10/19/2017 AUDREY AYOUB CURATOR [employer] Ot R09.02 HYPOXEMIA 10/19/2017 AUDREY AYOUB APRN Ot R94.2 ABNORMAL RESULTS OF PULMONARY FUNCTION S 10/20/2017 AUDREY AYOUB APRN Ot I26.99 OTHER PULMONARY EMBOLISM WITHOUT ACUTE C 10/20/2017 AUDREY AYOUB CURATOR [employer]USE[employer] Ot J44.9 CHRONIC OBSTRUCTIVE PULMONARY DISEASE, U 10/20/2017 AUDREY AYOUB CURATOR NAT[employer]ISTORY MUSE[employer] Ot J98.4 OTHER DISORDERS OF LUNG 10/20/2017 AUDREY AYOUB CURATOR [employer]ISTORY MUSE[employer] Ot R09.02 HYPOXEMIA 10/25/2017 MEGA, AUDREY E CURATOR [employer]USE[employer] Ot E07.9 DISORDER OF THYROID, UNSPECIFIED 10/25/2017 AUDREY AYOUB CURATOR [employer]USE[employer] Ot F41.9 ANXIETY DISORDER, UNSPECIFIED 10/25/2017 AUDREY AYOUB CURATOR [employer] Ot G47.30 SLEEP APNEA, UNSPECIFIED 10/25/2017 AUDREY AYOUB CURATOR [employer]ISTORY [employer]USE[employer] Ot J44.9 CHRONIC OBSTRUCTIVE PULMONARY DISEASE, U 10/25/2017 AUDREY AYOUB CURATOR [employer]ISTORY MUSE[employer] Ot J45.909 UNSPECIFIED ASTHMA, UNCOMPLICATED 10/25/2017 IESHA AYOUBINE Rosy CURATOR NAT[employer]ISTORY MUSEUM Ot J98.4 OTHER DISORDERS OF LUNG 10/25/2017 IESHA AYOUBINE Rosy CURATOR [employer]ISTORY MUSE[employer] Ot R09.02 HYPOXEMIA 10/25/2017 AUDREY AYOUB CURATOR NAT[employer]ISTORY MUSE[employer] Ot R94.2 ABNORMAL RESULTS OF PULMONARY FUNCTION S 11/02/2017 AUDREY AYOUB CURATOR [employer]ISTORY MUSE[employer] Ot I26.99 OTHER PULMONARY EMBOLISM WITHOUT ACUTE C 11/02/2017 AUDREY AYOUB CURATOR [employer]ISTORY MUSE[employer] Ot J44.9 CHRONIC OBSTRUCTIVE PULMONARY DISEASE, U 11/02/2017 AUDREY AYOUB CURATOR [employer]ISTORY MUSE[employer] Ot J98.4 OTHER DISORDERS OF LUNG 11/02/2017 AUDREY AYOUB CURATOR [employer]ISTORY MUSE[employer] Ot R09.02 HYPOXEMIA 11/23/2017 IESHA AYOUBINE Rosy CURATOR NATURAL HISTORY MUSEUM Ot I26.99 OTHER PULMONARY EMBOLISM WITHOUT ACUTE C 11/23/2017 AUDREY AYOUB CURATOR NAT[employer] HISTORY MUSEUM Ot J44.9 CHRONIC OBSTRUCTIVE PULMONARY DISEASE, U 11/23/2017 AUDREY AYOUB CURATOR NAT[employer] HISTORY MUSE[employer] Ot J98.4 OTHER DISORDERS OF LUNG 11/23/2017 AUDREY AYOUB CURATOR [employer]ISTORY MUSE[employer] Ot R09.02 HYPOXEMIA 11/23/2017 AUDREY AYOUB CURATOR [employer]ORY [employer]USE[employer] Ot E07.9 DISORDER OF THYROID, UNSPECIFIED 11/23/2017 AUDREY AYOUB CURATOR [employer]ORY [employer]USE[employer] Ot F41.9 ANXIETY DISORDER, UNSPECIFIED 11/23/2017 AUDREY AYOUB CURATOR [employer]ORY MUSE[employer] Ot G47.30 SLEEP APNEA, UNSPECIFIED 11/23/2017 AUDREY AYOUB CURATOR [employer]ISTORY MUSE[employer] Ot J44.9 CHRONIC OBSTRUCTIVE PULMONARY DISEASE, U 11/23/2017 AUDREY AYOUB CURATOR NAT[employer]ISTORY MUSE[employer] Ot J45.909 UNSPECIFIED ASTHMA, UNCOMPLICATED 11/23/2017 AUDREY AYOUB CURATOR NAT[employer]ISTORY MUSE[employer] Ot J98.4 OTHER DISORDERS OF LUNG 11/23/2017 AUDREY AYOUB CURATOR [employer]ISTORY MUSE[employer] Ot R09.02 HYPOXEMIA 11/23/2017 MEGA, AUDREY E CURATOR [employer]ISTORY MUSE[employer] Ot R94.2 ABNORMAL RESULTS OF PULMONARY FUNCTION S 11/23/2017 IESHA AYOUBINE Rosy CURATOR NAT[employer]ISTORY MUSE[employer] Ot I26.99 OTHER PULMONARY EMBOLISM WITHOUT ACUTE C 11/23/2017 IESHA AYOUBINE Rosy CURATOR [employer]ISTORY MUSEUM Ot J44.9 CHRONIC OBSTRUCTIVE PULMONARY DISEASE, U 11/23/2017 IESHA AYOUBINE Rosy CURATOR NAT[employer]ISTORY MUSE[employer] Ot J98.4 OTHER DISORDERS OF LUNG 11/23/2017 IESHA AYOUBINE Rosy CURATOR [employer]ORY MUSE[employer] Ot R09.02 HYPOXEMIA 12/03/2017 IESHA AYOUBINE Rosy CURATOR [employer]ORY MUSE[employer] Ot E07.9 DISORDER OF THYROID, UNSPECIFIED 12/03/2017 IESHA AYOUBINE Rosy CURATOR [employer] MUSE[employer] Ot F41.9 ANXIETY DISORDER, UNSPECIFIED 12/03/2017 IESHA AYOUBINE Rosy CURATOR [employer]USE[employer] Ot G47.30 SLEEP APNEA, UNSPECIFIED 12/03/2017 IESHA AYOUBINE Rosy CURATOR [employer]ISTORY MUSE[employer] Ot J44.9 CHRONIC OBSTRUCTIVE PULMONARY DISEASE, U 12/03/2017 IESHA AYOUBINE Rosy CURATOR [employer]ISTORY MUSE[employer] Ot J45.909 UNSPECIFIED ASTHMA, UNCOMPLICATED 12/03/2017 MEGAIESHA MAGANAINE Rosy CURATOR [employer]ISTORY MUSE[employer] Ot J98.4 OTHER DISORDERS OF LUNG 12/03/2017 IESHA AYOUBINE Rosy CURATOR [employer]ORY MUSE[employer] Ot R09.02 HYPOXEMIA 12/03/2017 IESHA AYOUBINE Rosy CURATOR NAT[employer]ISTORY MUSEUM Ot R94.2 ABNORMAL RESULTS OF PULMONARY FUNCTION S 12/05/2017 AUDREY AYOUB CURATOR [employer]ISTORY MUSE[employer] Ot E07.9 DISORDER OF THYROID, UNSPECIFIED 12/05/2017 IESHA AYOUBINE Rosy CURATOR [employer]ISTORY MUSE[employer] Ot F41.9 ANXIETY DISORDER, UNSPECIFIED 12/05/2017 IESHA AYOUBINE Rosy CURATOR [employer]ISTORY MUSEUM Ot G47.30 SLEEP APNEA, UNSPECIFIED 12/05/2017 IESHA AYOUBINE Rosy CURATOR NAT[employer] HISTORY MUSEUM Ot J44.9 CHRONIC OBSTRUCTIVE PULMONARY DISEASE, U 12/05/2017 IESHA AYOUBINE E CURATOR NATURAL HISTORY MUSEUM Ot J45.909 UNSPECIFIED ASTHMA, UNCOMPLICATED 12/05/2017 IESHA AYOUBINE E CURATOR NATURAL HISTORY MUSEUM Ot J98.4 OTHER DISORDERS OF LUNG 12/05/2017 IESHA AYOUBINE Rosy CURATOR NAT[employer]ISTORY MUSEUM Ot R09.02 HYPOXEMIA 12/05/2017 IESHA AYOUBINE E CURATOR NAT[employer] HISTORY MUSEUM Ot R94.2 ABNORMAL RESULTS OF PULMONARY FUNCTION S 12/06/2017 AUDREY AYOUB CURATOR NAT[employer] HISTORY MUSE[employer] Ot E07.9 DISORDER OF THYROID, UNSPECIFIED 12/06/2017 AUDREY AYOUB CURATOR NATURAL HISTORY MUSEUM Ot F41.9 ANXIETY DISORDER, UNSPECIFIED 12/06/2017 AUDREY AYOUB CURATOR NAT[employer] HISTORY MUSEUM Ot G47.30 SLEEP APNEA, UNSPECIFIED 12/06/2017 AUDREY AYOUB CURATOR NATURAL HISTORY MUSEUM Ot J44.9 CHRONIC OBSTRUCTIVE PULMONARY DISEASE, U 12/06/2017 AUDREY AYOUB CURATOR NATURAL HISTORY MUSEUM Ot J45.909 UNSPECIFIED ASTHMA, UNCOMPLICATED 12/06/2017 AUDREY AYOUB CURATOR NATURAL HISTORY MUSEUM Ot J98.4 OTHER DISORDERS OF LUNG 12/06/2017 IESHA AYOUBINE Rosy CURATOR NAT[employer] HISTORY MUSE[employer] Ot R09.02 HYPOXEMIA 12/06/2017 IESHA AYOUBINE Rosy CURATOR NAT[employer] HISTORY MUSEUM Ot R94.2 ABNORMAL RESULTS OF PULMONARY FUNCTION S 12/06/2017 AUDREY AYOUB CURATOR [employer]ISTORY MUSE[employer] Ot E04.1 NONTOXIC SINGLE THYROID NODULE 12/06/2017 AUDREY AYOUB CURATOR NATURAL HISTORY MUSEUM Ot F41.9 ANXIETY DISORDER, UNSPECIFIED 12/06/2017 AUDREY AYOUB CURATOR NATURAL HISTORY MUSEUM Ot I26.99 OTHER PULMONARY EMBOLISM WITHOUT ACUTE C 12/06/2017 AUDREY AYOUB CURATOR NATURAL HISTORY MUSEUM Ot J44.9 CHRONIC OBSTRUCTIVE PULMONARY DISEASE, U 12/06/2017 AUDREY AYOUB CURATOR NATURAL HISTORY MUSEUM Ot J98.4 OTHER DISORDERS OF LUNG 12/08/2017 AUDREY AYOUB CURATOR NAT[employer] HISTORY MUSEUM Ot E07.9 DISORDER OF THYROID, UNSPECIFIED 12/08/2017 AUDREY AYOUB CURATOR NATURAL HISTORY MUSEUM Ot F41.9 ANXIETY DISORDER, UNSPECIFIED 12/08/2017 AUDREY AYOUB CURATOR NAT[employer] HISTORY MUSEUM Ot G47.30 SLEEP APNEA, UNSPECIFIED 12/08/2017 AUDREY AYOUB CURATOR NATURAL HISTORY MUSEUM Ot J44.9 CHRONIC OBSTRUCTIVE PULMONARY DISEASE, U 12/08/2017 IESHA AYOUBINE Rosy CURATOR NAT[employer] HISTORY MUSEUM Ot J45.909 UNSPECIFIED ASTHMA, UNCOMPLICATED 12/08/2017 IESHA AYOUBINE Rosy CURATOR NATURAL HISTORY MUSEUM Ot J98.4 OTHER DISORDERS OF LUNG 12/08/2017 IESHA AYOUBINE Rosy CURATOR NAT[employer] HISTORY MUSEUM Ot R09.02 HYPOXEMIA 12/08/2017 IESHA AYOUBINE Rosy CURATOR NAT[employer] HISTORY MUSEUM Ot R94.2 ABNORMAL RESULTS OF PULMONARY FUNCTION S 12/09/2017 AUDREY AYOUB CURATOR NATURAL HISTORY MUSEUM Ot E07.9 DISORDER OF THYROID, UNSPECIFIED 12/09/2017 AUDREY AYOUB CURATOR NATURAL HISTORY MUSEUM Ot F41.9 ANXIETY DISORDER, UNSPECIFIED 12/09/2017 AUDREY AYOUB CURATOR NATURAL HISTORY MUSEUM Ot G47.30 SLEEP APNEA, UNSPECIFIED 12/09/2017 AUDREY AYOUB CURATOR NATURAL HISTORY MUSEUM Ot J44.9 CHRONIC OBSTRUCTIVE PULMONARY DISEASE, U 12/09/2017 AUDREY AYOUB CURATOR NATURAL HISTORY MUSEUM Ot J45.909 UNSPECIFIED ASTHMA, UNCOMPLICATED 12/09/2017 AUDREY AYOUB CURATOR NATURAL HISTORY MUSEUM Ot J98.4 OTHER DISORDERS OF LUNG 12/09/2017 IESHA AYOUBINE E CURATOR NAT[employer] HISTORY MUSEUM Ot R09.02 HYPOXEMIA 12/09/2017 IESHA AYOUBINE Rosy CURATOR NAT[employer] HISTORY MUSEUM Ot R94.2 ABNORMAL RESULTS OF PULMONARY FUNCTION S 12/11/2017 AUDREY AYOUB CURATOR NATURAL HISTORY MUSEUM Ot E04.1 NONTOXIC SINGLE THYROID NODULE 12/11/2017 AUDREY AYOUB CURATOR NAT[employer] HISTORY MUSEUM Ot F41.9 ANXIETY DISORDER, UNSPECIFIED 12/11/2017 AUDREY AYOUB CURATOR NAT[employer] HISTORY MUSEUM Ot I26.99 OTHER PULMONARY EMBOLISM WITHOUT ACUTE C 12/11/2017 AUDREY AYOUB CURATOR NAT[employer] HISTORY MUSEUM Ot J44.9 CHRONIC OBSTRUCTIVE PULMONARY DISEASE, U 12/11/2017 AUDREY AYOUB CURATOR NAT[employer] HISTORY MUSEUM Ot J98.4 OTHER DISORDERS OF LUNG 12/11/2017 AUDREY AYOUB CURATOR NATURAL HISTORY MUSEUM Ot I26.99 OTHER PULMONARY EMBOLISM WITHOUT ACUTE C 12/11/2017 AUDREY AYOUB CURATOR NAT[employer] HISTORY MUSEUM Ot J44.9 CHRONIC OBSTRUCTIVE PULMONARY DISEASE, U 12/11/2017 AUDREY AYOUB CURATOR NATURAL HISTORY MUSEUM Ot J98.4 OTHER DISORDERS OF LUNG 12/11/2017 AUDREY AYOUB CURATOR NAT[employer] HISTORY MUSEUM Ot R09.02 HYPOXEMIA 12/11/2017 AUDREY AYOUB CURATOR NAT[employer] HISTORY MUSEUM Ot G47.30 SLEEP APNEA, UNSPECIFIED 12/11/2017 IESHA AYOUBINE Rosy CURATOR NAT[employer] HISTORY MUSEUM Ot J42 UNSPECIFIED CHRONIC BRONCHITIS 12/11/2017 AUDREY AYOUB CURATOR NATURAL HISTORY MUSEUM Ot J44.9 CHRONIC OBSTRUCTIVE PULMONARY DISEASE, U 12/11/2017 IESHA AYOUBINE Rosy CURATOR NAT[employer] HISTORY MUSEUM Ot J45.909 UNSPECIFIED ASTHMA, UNCOMPLICATED 12/11/2017 AUDREY AYOUB CURATOR NAT[employer] HISTORY MUSEUM Ot K76.0 FATTY (CHANGE OF) LIVER, NOT ELSEWHERE C 12/11/2017 AUDREY AYOUB CURATOR NAT[employer] HISTORY MUSEUM Ot R16.2 HEPATOMEGALY WITH SPLENOMEGALY, NOT ELSE 12/11/2017 AUDREY AYOUB CURATOR NAT[employer] HISTORY MUSEUM Ot Z86.11 PERSONAL HISTORY OF TUBERCULOSIS 12/11/2017 [...] MASS AND LUMP, LOWER 12/11/2017 AUDREY AYOUB CURATOR NAT[employer] HISTORY MUSE[employer] Ot J44.9 CHRONIC OBSTRUCTIVE PULMONARY DISEASE, U 12/11/2017 AUDREY AYOUB CURATOR NAT[employer] HISTORY MUSE[employer] Ot E04.1 NONTOXIC SINGLE THYROID NODULE 12/11/2017 AUDREY AYOUB CURATOR NAT[employer] HISTORY MUSEUM Ot F41.9 ANXIETY DISORDER, UNSPECIFIED 12/11/2017 AUDREY AYOUB CURATOR NATURAL HISTORY MUSEUM Ot I26.99 OTHER PULMONARY EMBOLISM WITHOUT ACUTE C 12/11/2017 AUDREY AYOUB CURATOR NATURAL HISTORY MUSEUM Ot J44.9 CHRONIC OBSTRUCTIVE PULMONARY DISEASE, U 12/11/2017 AUDREY AYOUB CURATOR NATURAL HISTORY MUSEUM Ot J98.4 OTHER DISORDERS OF LUNG 12/11/2017 AUDREY AYOUB CURATOR NATURAL HISTORY MUSEUM Ot I26.99 OTHER PULMONARY EMBOLISM WITHOUT ACUTE C 12/11/2017 AUDREY AYOUB CURATOR NATURAL HISTORY MUSEUM Ot J44.9 CHRONIC OBSTRUCTIVE PULMONARY DISEASE, U 12/11/2017 AUDREY AYOUB CURATOR NATURAL HISTORY MUSEUM Ot J98.4 OTHER DISORDERS OF LUNG 12/11/2017 AUDREY AYOUB CURATOR NAT[employer] HISTORY MUSEUM Ot R09.02 HYPOXEMIA 12/11/2017 AUDREY AYOUB CURATOR NATURAL HISTORY MUSEUM Ot E07.9 DISORDER OF THYROID, UNSPECIFIED 12/11/2017 AUDREY AYOUB CURATOR NATURAL HISTORY MUSEUM Ot F41.9 ANXIETY DISORDER, UNSPECIFIED 12/11/2017 AUDREY AYOUB CURATOR NAT[employer] HISTORY MUSEUM Ot G47.30 SLEEP APNEA, UNSPECIFIED 12/11/2017 AUDREY AYOUB CURATOR NATURAL HISTORY MUSEUM Ot J44.9 CHRONIC OBSTRUCTIVE PULMONARY DISEASE, U 12/11/2017 AUDREY AYOUB CURATOR NAT[employer] HISTORY MUSEUM Ot J45.909 UNSPECIFIED ASTHMA, UNCOMPLICATED 12/11/2017 AUDREY AYOUB CURATOR NAT[employer] HISTORY MUSEUM Ot J98.4 OTHER DISORDERS OF LUNG 12/11/2017 AUDREY AYOUB CURATOR NAT[employer] HISTORY MUSEUM Ot R09.02 HYPOXEMIA 12/11/2017 IESHA AYOUBINE E CURATOR NAT[employer] HISTORY MUSEUM Ot R94.2 ABNORMAL RESULTS OF PULMONARY FUNCTION S 12/13/2017 AUDREY AYOUB CURATOR NAT[employer] HISTORY MUSEUM Ot J42 UNSPECIFIED CHRONIC BRONCHITIS 12/13/2017 AUDREY AYOUB CURATOR NATURAL HISTORY MUSEUM Ot J45.909 UNSPECIFIED ASTHMA, UNCOMPLICATED 12/13/2017 AUDREY AYOUB CURATOR NAT[employer] HISTORY MUSEUM Ot J98.4 OTHER DISORDERS OF LUNG 12/13/2017 AUDREY AYOUB CURATOR NATURAL HISTORY MUSEUM Ot R09.02 HYPOXEMIA 12/13/2017 AUDREY AYOUB CURATOR NATURAL HISTORY MUSEUM Ot R94.2 ABNORMAL RESULTS OF PULMONARY FUNCTION S 12/19/2017 AUDREY AYOUB CURATOR NATURAL HISTORY MUSEUM Ot J42 UNSPECIFIED CHRONIC BRONCHITIS 12/19/2017 AUDREY AYOUB CURATOR NATURAL HISTORY MUSEUM Ot J45.909 UNSPECIFIED ASTHMA, UNCOMPLICATED 12/19/2017 AUDREY AYOUB CURATOR NATURAL HISTORY MUSEUM Ot J98.4 OTHER DISORDERS OF LUNG 12/20/2017 AUDREY AYOUB CURATOR NATURAL HISTORY MUSEUM Ot E04.1 NONTOXIC SINGLE THYROID NODULE 12/20/2017 AUDREY AYOUB CURATOR NATURAL HISTORY MUSEUM Ot F41.9 ANXIETY DISORDER, UNSPECIFIED 12/20/2017 AUDREY AYOUB CURATOR NATURAL HISTORY MUSEUM Ot I26.99 OTHER PULMONARY EMBOLISM WITHOUT ACUTE C 12/20/2017 AUDREY AYOUB CURATOR NAT[employer] HISTORY MUSEUM Ot J44.9 CHRONIC OBSTRUCTIVE PULMONARY DISEASE, U 12/20/2017 ADUREY AYOUB CURATOR NATURAL HISTORY MUSEUM Ot J98.4 OTHER DISORDERS OF LUNG 12/27/2017 AUDREY AYOUB CURATOR NAT[employer] HISTORY MUSEUM Ot J42 UNSPECIFIED CHRONIC BRONCHITIS 12/27/2017 AUDREY AYOUB CURATOR NATURAL HISTORY MUSEUM Ot J45.909 UNSPECIFIED ASTHMA, UNCOMPLICATED 12/27/2017 AUDREY AYOUB CURATOR NATURAL HISTORY MUSEUM Ot J98.4 OTHER DISORDERS OF LUNG 12/27/2017 AUDREY AYOUB CURATOR NAT[employer] HISTORY MUSEUM Ot R09.02 HYPOXEMIA 12/27/2017 IESHA AYOUBINE E CURATOR NATURAL HISTORY MUSEUM Ot R94.2 ABNORMAL RESULTS OF PULMONARY FUNCTION S 01/03/2018 AUDREY AYOUB CURATOR NATURAL HISTORY MUSEUM Ot J42 UNSPECIFIED CHRONIC BRONCHITIS 01/03/2018 AUDREY AYOUB CURATOR NATURAL HISTORY MUSEUM Ot J45.909 UNSPECIFIED ASTHMA, UNCOMPLICATED 01/03/2018 AUDREY AYOUB CURATOR NATURAL HISTORY MUSEUM Ot J98.4 OTHER DISORDERS OF LUNG 03/07/2018 AUDREY AYOUB CURATOR NATURAL HISTORY MUSEUM Ot E07.9 DISORDER OF THYROID, UNSPECIFIED 03/07/2018 AUDREY AYOUB CURATOR NATURAL HISTORY MUSEUM Ot F41.9 ANXIETY DISORDER, UNSPECIFIED 03/07/2018 AUDREY AYOUB CURATOR NAT[employer] HISTORY MUSEUM Ot G47.30 SLEEP APNEA, UNSPECIFIED 03/07/2018 AUDREY AYOUB E CURATOR NAT[employer] HISTORY MUSEUM Ot J44.9 CHRONIC OBSTRUCTIVE PULMONARY DISEASE, U 03/07/2018 IESHA AYOUBINE E CURATOR NATURAL HISTORY MUSEUM Ot J45.909 UNSPECIFIED ASTHMA, UNCOMPLICATED 03/07/2018 MEGAAUDREY MAGANA CURATOR NATURAL HISTORY MUSEUM Ot J98.4 OTHER DISORDERS OF LUNG 03/07/2018 AUDREY AYOUB CURATOR NATURAL HISTORY MUSEUM Ot R09.02 HYPOXEMIA 03/07/2018 AUDREY AYOUB CURATOR NATURAL HISTORY MUSEUM Ot R94.2 ABNORMAL RESULTS OF PULMONARY FUNCTION S 03/08/2018 AUDREY AYOUB CURATOR NATURAL HISTORY MUSEUM Ot E07.9 DISORDER OF THYROID, UNSPECIFIED 03/08/2018 AUDREY AYOUB CURATOR NATURAL HISTORY MUSEUM Ot F41.9 ANXIETY DISORDER, UNSPECIFIED 03/08/2018 AUDREY AYOUB CURATOR NATURAL HISTORY MUSEUM Ot G47.30 SLEEP APNEA, UNSPECIFIED 03/08/2018 AUDREY AYOUB CURATOR NATURAL HISTORY MUSEUM Ot J44.9 CHRONIC OBSTRUCTIVE PULMONARY DISEASE, U 03/08/2018 AUDREY AYOUB CURATOR NATURAL HISTORY MUSEUM Ot J45.909 UNSPECIFIED ASTHMA, UNCOMPLICATED 03/08/2018 AUDREY AYOUB CURATOR NATURAL HISTORY MUSEUM Ot J98.4 OTHER DISORDERS OF LUNG 03/08/2018 AUDREY AYOUB CURATOR NAT[employer] HISTORY MUSEUM Ot R09.02 HYPOXEMIA 03/08/2018 AUDREY AYOUB CURATOR NAT[employer] HISTORY MUSEUM Ot R94.2 ABNORMAL RESULTS OF PULMONARY FUNCTION S 04/03/2018 Carolina Barry M79.7 Fibromyalgia 04/10/2018 Carolina Barry M79.7 Fibromyalgia 04/10/2018 P M542 Cervicalgia 04/10/2018 S R51 Headache 07/17/2018 AUDREY AYOUB CURATOR [employer]ORY MUSE[employer] Ot E07.9 DISORDER OF THYROID, UNSPECIFIED 07/17/2018 AUDREY AYOUB CURATOR NAT[employer] HISTORY MUSEUM Ot F41.9 ANXIETY DISORDER, UNSPECIFIED 07/17/2018 AUDREY AYOUB CURATOR NATURAL HISTORY MUSEUM Ot G47.30 SLEEP APNEA, UNSPECIFIED 07/17/2018 AUDREY AYOUB CURATOR NATURAL HISTORY MUSEUM Ot J44.9 CHRONIC OBSTRUCTIVE PULMONARY DISEASE, U 07/17/2018 AUDREY AYOUB CURATOR NATURAL HISTORY MUSEUM Ot J45.909 UNSPECIFIED ASTHMA, UNCOMPLICATED 07/17/2018 AUDREY AYOUB CURATOR NATURAL HISTORY MUSEUM Ot J98.4 OTHER DISORDERS OF LUNG 07/17/2018 AUDREY AYOUB CURATOR NATURAL HISTORY MUSEUM Ot R09.02 HYPOXEMIA 07/17/2018 AUDREY AYOUB CURATOR NATURAL HISTORY MUSEUM Ot R94.2 ABNORMAL RESULTS OF PULMONARY FUNCTION S 07/17/2018 AUDREY AYOUB CURATOR NATURAL HISTORY MUSEUM Ot E07.9 DISORDER OF THYROID, UNSPECIFIED 07/17/2018 AUDREY AYOUB CURATOR NATURAL HISTORY MUSEUM Ot F41.9 ANXIETY DISORDER, UNSPECIFIED 07/17/2018 MEGAAUDREY MAGANA CURATOR NATURAL HISTORY MUSEUM Ot G47.30 SLEEP APNEA, UNSPECIFIED 07/17/2018 AUDREY AYOUB CURATOR NATURAL HISTORY MUSEUM Ot J44.9 CHRONIC OBSTRUCTIVE PULMONARY DISEASE, U 07/17/2018 AUDREY AYOUB CURATOR NATURAL HISTORY MUSEUM Ot J45.909 UNSPECIFIED ASTHMA, UNCOMPLICATED 07/17/2018 AUDREY AYOUB CURATOR NATURAL HISTORY MUSEUM Ot J98.4 OTHER DISORDERS OF LUNG 07/17/2018 AUDREY AYOUB CURATOR NAT[employer] HISTORY MUSEUM Ot R09.02 HYPOXEMIA 07/17/2018 AUDREY AYOUB CURATOR NATURAL HISTORY MUSEUM Ot R94.2 ABNORMAL RESULTS OF PULMONARY FUNCTION S 07/17/2018 BRYAN GRULLON, MATILDE Ot Z01.818 ENCOUNTER FOR OTHER PREPROCEDURAL EXAMIN 07/18/2018 AUDREY AYOUB CURATOR [employer] HISTORY MUSEUM Ot G47.30 SLEEP APNEA, UNSPECIFIED 07/18/2018 AUDREY AYOUB CURATOR NATURAL HISTORY MUSEUM Ot J42 UNSPECIFIED CHRONIC BRONCHITIS 07/18/2018 AUDREY AYOUB CURATOR NATURAL HISTORY MUSEUM Ot J44.9 CHRONIC OBSTRUCTIVE PULMONARY DISEASE, U 07/18/2018 AUDREY AYOUB CURATOR NATURAL HISTORY MUSEUM Ot J45.909 UNSPECIFIED ASTHMA, UNCOMPLICATED 07/18/2018 AUDREY AYOUB CURATOR [employer] HISTORY MUSEUM Ot K76.0 FATTY (CHANGE OF) LIVER, NOT ELSEWHERE C 07/18/2018 AUDREY AYOUB CURATOR NAT[employer] HISTORY MUSEUM Ot R16.2 HEPATOMEGALY WITH SPLENOMEGALY, NOT ELSE 07/18/2018 AUDREY AYOUB CURATOR NATURAL HISTORY MUSEUM Ot Z86.11 PERSONAL HISTORY OF TUBERCULOSIS 07/18/2018 [...] MASS AND LUMP, LOWER 07/18/2018 AUDREY AYOUB CURATOR [employer] HISTORY MUSEUM Ot J44.9 CHRONIC OBSTRUCTIVE PULMONARY DISEASE, U 07/18/2018 AUDREY AYOUB CURATOR NAT[employer] HISTORY MUSEUM Ot E04.1 NONTOXIC SINGLE THYROID NODULE 07/18/2018 AUDREY AYOUB CURATOR [employer] HISTORY MUSEUM Ot F41.9 ANXIETY DISORDER, UNSPECIFIED 07/18/2018 AUDREY AYOUB CURATOR NATURAL HISTORY MUSEUM Ot I26.99 OTHER PULMONARY EMBOLISM WITHOUT ACUTE C 07/18/2018 AUDREY AYOUB CURATOR NAT[employer] HISTORY MUSEUM Ot J44.9 CHRONIC OBSTRUCTIVE PULMONARY DISEASE, U 07/18/2018 AUDREY AYOUB CURATOR NATURAL HISTORY MUSEUM Ot J98.4 OTHER DISORDERS OF LUNG 07/18/2018 AUDREY AYOUB CURATOR NATURAL HISTORY MUSEUM Ot I26.99 OTHER PULMONARY EMBOLISM WITHOUT ACUTE C 07/18/2018 AUDREY AYOUB CURATOR NATURAL HISTORY MUSE[employer] Ot J44.9 CHRONIC OBSTRUCTIVE PULMONARY DISEASE, U 07/18/2018 AUDREY AYOUB CURATOR [employer] Ot J98.4 OTHER DISORDERS OF LUNG 07/18/2018 AUDREY AYOUB CURATOR [employer] Ot R09.02 HYPOXEMIA 07/18/2018 AUDREY AYOUB CURATOR [employer] Ot J42 UNSPECIFIED CHRONIC BRONCHITIS 07/18/2018 AUDREY AYOUB CURATOR [employer] Ot J45.909 UNSPECIFIED ASTHMA, UNCOMPLICATED 07/18/2018 AUDREY AYOUB CURATOR [employer] Ot J98.4 OTHER DISORDERS OF LUNG 07/18/2018 AUDREY AYOUB CURATOR [employer] Ot J42 UNSPECIFIED CHRONIC BRONCHITIS 07/18/2018 AUDREY AYOUB CURATOR [employer]ORY [employer]USE[employer] Ot J45.909 UNSPECIFIED ASTHMA, UNCOMPLICATED 07/18/2018 AUDREY AYOUB CURATOR [employer] Ot J98.4 OTHER DISORDERS OF LUNG 07/18/2018 AUDREY AYOUB CURATOR [employer] Ot R09.02 HYPOXEMIA 07/18/2018 AUDREY AYOUB CURATOR [employer] Ot R94.2 ABNORMAL RESULTS OF PULMONARY FUNCTION S 07/18/2018 AUDREY AYOUB CURATOR [employer] Ot E07.9 DISORDER OF THYROID, UNSPECIFIED 07/18/2018 AUDREY AYOUB CURATOR [employer] Ot F41.9 ANXIETY DISORDER, UNSPECIFIED 07/18/2018 AUDREY AYOUB CURATOR [employer] Ot G47.30 SLEEP APNEA, UNSPECIFIED 07/18/2018 AUDREY AYOUB CURATOR [employer] Ot J44.9 CHRONIC OBSTRUCTIVE PULMONARY DISEASE, U [...] 07/23/2018 MATILDE ADAMS MD Ot Z79.899 OTHER SENIOR CARE (CURRENT) DRUG THERAPY 08/02/2018 AUDREY AYOUB APRN [...] Procedures Code Description [place] [address] OFFICE/OUTPATIENT VISIT NEW 04/03/2018 06323 OFFICE/OUTPATIENT VISIT EST 08/06/2018 Results Test Result [...] Status Pt. Type Provider Facility Loc./Unit Complaint [id number] 08/13/2018 13:49:27 08/13/2018 23:59:59 CLS Outpatient Aurora Martin [id number] 08/12/2018 13:55:43 08/12/2018 23:59:59 CLS Outpatient Aurora Martin [id number] 07/20/2018 16:46:18 07/20/2018 23:59:59 CLS Outpatient HetlingerSean [id number] 04/11/2018 13:52:57 04/11/2018 23:59:59 CLS Outpatient Jacky Fredis [id number] 03/29/2018 15:19:47 03/29/2018 23:59:59 CLS Outpatient HetlingerSean [id number] 03/09/2018 09:51:30 03/09/2018 23:59:59 CLS Outpatient HetlingerSean [id number] 02/28/2018 08:52:38 02/28/2018 23:59:59 CLS Outpatient Jacky Fredis [id number] 01/29/2018 17:36:47 01/29/2018 23:59:59 CLS Outpatient ChristalArelyLaine [id number] 01/19/2018 11:26:07 01/19/2018 23:59:59 CLS Outpatient HetlingerSean [id number] 10/27/2017 10:00:45 10/27/2017 23:59:59 CLS Outpatient Rico, Fredis [id number] 10/23/2017 09:29:56 10/23/2017 23:59:59 CLS Outpatient Hetlinger Sean [id number] 09/20/2017 12:18:44 09/20/2017 23:59:59 CLS Outpatient RicoFredis [id number] 08/31/2017 15:49:06 08/31/2017 23:59:59 CLS Outpatient Rico Fredis [id number] 08/09/2017 10:08:51 08/09/2017 23:59:59 CLS Outpatient Hetlinger Sean [id number] 07/07/2017 09:35:41 07/07/2017 23:59:59 CLS Outpatient Hetlinger Sean [id number] 06/16/2017 11:07:00 06/16/2017 23:59:59 CLS Outpatient Hetlinger Sean [id number] 05/15/2017 09:46:10 05/15/2017 23:59:59 CLS Outpatient Hetlinger Sean [id number] 04/23/2017 14:14:47 04/23/2017 23:59:59 CLS Outpatient Aurora Martin [id number] 04/14/2017 09:19:24 04/14/2017 23:59:59 CLS Outpatient HetlingerSean [id number] 03/20/2017 15:22:17 03/20/2017 23:59:59 CLS Outpatient HetlingerSean [id number] 03/03/2017 17:59:33 03/03/2017 23:59:59 CLS Outpatient Aurora Martin [id number] 01/09/2017 14:30:18 01/09/2017 23:59:59 CLS Outpatient HetlingerSean [id number] 01/02/2017 14:28:33 01/02/2017 23:59:59 CLS Outpatient HetlingerSean [id number] 12/27/2016 15:56:43 12/27/2016 23:59:59 CLS Outpatient HetlingerSean [id number] 2016 09:39:41 2016 23:59:59 CLS Outpatient HetlingerSean [id number] 09/19/2016 11:06:13 09/19/2016 23:59:59 CLS Outpatient HetlingerSean [id number] 07/01/2016 09:18:55 07/01/2016 23:59:59 CLS Outpatient HetlingerSean [id number] 06/17/2016 11:21:34 06/17/2016 23:59:59 CLS Outpatient HetlingerSean [id number] 06/02/2016 11:45:43 06/02/2016 23:59:59 CLS Outpatient Michelle Greco [id number] 05/20/2016 10:07:14 05/20/2016 23:59:59 CLS Outpatient HetlingerSean [id number] 04/01/2016 10:43:20 04/01/2016 23:59:59 CLS Outpatient HetlingerSean [id number] 12/09/2015 18:02:06 12/09/2015 23:59:59 CLS Outpatient Miguel A Munoz [id number] 11/17/2015 15:42:52 11/17/2015 23:59:59 CLS Outpatient HetlingerSean [id number] 11/03/2015 09:17:08 11/03/2015 23:59:59 CLS Outpatient HetlingerSean [id number] 10/09/2015 09:43:07 10/09/2015 23:59:59 CLS Outpatient Hetlinger, Sean [id number] 08/31/2015 15:29:16 08/31/2015 23:59:59 CLS Outpatient Hetlinger, Sean [id number] 08/25/2015 11:01:57 08/25/2015 23:59:59 CLS Outpatient HetlingerSean [id number] 06/05/2015 10:21:13 06/05/2015 23:59:59 CLS Outpatient HetlingerSean [id number] 06/01/2015 07:40:23 06/01/2015 23:59:59 CLS Outpatient Angus Michelle Sean [id number] 05/11/2015 22:33:28 05/11/2015 23:59:59 CLS Outpatient Amaris Gentile [id number] 05/11/2015 22:31:59 05/11/2015 23:59:59 CLS Outpatient Richard Kiarra [id number] 05/11/2015 22:07:32 05/11/2015 23:59:59 CLS Outpatient HetlingerSean [id number] 05/11/2015 22:03:31 05/11/2015 23:59:59 CLS Outpatient HetlingerSean [id number] 05/11/2015 21:59:14 05/11/2015 23:59:59 CLS Outpatient HetlingerSean [id number] 05/11/2015 21:28:40 05/11/2015 23:59:59 CLS Outpatient HetlingSean magana [id number] 01/26/2015 16:10:40 01/26/2015 23:59:59 CLS Outpatient Leena Haddad [id number] 01/12/2015 09:52:09 01/12/2015 23:59:59 CLS Outpatient HetlingSean magana [id number] 10/22/2014 14:36:19 10/22/2014 23:59:59 CLS Outpatient Miguel A Munoz [id number] 08/22/2014 09:31:15 08/22/2014 23:59:59 CLS Outpatient HetlingSean magana [id number] 08/01/2014 10:40:38 08/01/2014 23:59:59 CLS Outpatient HetlingerSean [id number] 06/09/2014 15:49:13 06/09/2014 23:59:59 CLS Outpatient Kiarra Ramos [id number] 03/14/2014 09:18:53 03/14/2014 23:59:59 CLS Outpatient Leena Haddad [id number] 02/27/2014 14:57:30 02/27/2014 23:59:59 CLS Outpatient Leena Haddad [id number] 12/02/2013 10:40:20 12/02/2013 23:59:59 CLS Outpatient Sean Marie [id number] 11/25/2013 10:02:26 11/25/2013 23:59:59 CLS Outpatient Sean Marie [id number] 11/14/2013 15:16:36 11/14/2013 23:59:59 CLS Outpatient Kiarra Ramos [id number] 08/01/2018 12:07:55 Document Registration [id number] 07/25/2018 10:28:51 Document Registration [id number] 07/20/2018 08:59:49 Document Registration [id number] 05/22/2018 15:27:56 Document Registration [id number] 04/30/2018 10:19:47 Document Registration [id number] 03/02/2018 08:28:44 Document Registration [id number] 01/19/2018 11:47:58 Document Registration [id number] 12/04/2017 22:01:23 Document Registration [id number] 11/17/2017 14:30:23 Document Registration [id number] 11/17/2017 14:20:24 Document Registration [id number] 11/13/2017 16:14:58 Document Registration [id number] 10/17/2017 14:41:57 Document Registration [id number] 09/22/2017 16:12:37 Document Registration [id number] 09/22/2017 16:11:47 Document Registration [id number] 09/01/2017 08:49:17 Document Registration [id number] 06/16/2017 11:00:02 Document Registration [id number] 05/18/2017 13:38:17 Document Registration [id number] 05/17/2017 08:52:26 Document Registration [id number] 08/15/2018 08:11:00 08/15/2018 23:59:59 CLS Outpatient MATILDE ADAMS MD [facility] RAD REFLUX [id number] 07/31/2018 10:14:00 07/31/2018 23:59:59 CLS Outpatient MEGA, AUDREY E [employer] [facility] RAD J44.9,G47.00 [id number] 07/18/2018 11:37:00 07/18/2018 14:50:00 DIS Outpatient MATILDE ADAMS MD [facility] ENDO REFLUX [id number] 07/17/2018 14:37:00 07/17/2018 15:09:00 DIS Outpatient MAITLDE ADAMS MD [facility] PREOP EGD [id number] 03/08/2018 08:15:00 03/08/2018 23:59:59 CLS Preadmit MEGA, AUDREY E [employer] [facility] PULM F41.9 ANXIETY J45.909 ASTHMA [id number] 12/19/2017 13:00:00 03/07/2018 00:01:00 DIS Outpatient MEGA, AUDREY E [employer] [facility] PULM F41.9 ANXIETY J45.909 ASTHMA [id number] 12/18/2017 11:38:00 12/18/2017 23:59:59 CLS Outpatient MEGA, AUDREY E [employer] [facility] RT RESTRICITVE LUNG DISEASE,ASTHMA [id number] 12/12/2017 15:37:00 12/12/2017 23:59:59 CLS Outpatient MEGA, AUDREY E [employer] [facility] PULM J45.909 [id number] 12/05/2017 13:54:00 12/05/2017 23:59:59 CLS Outpatient MEGA, AUDREY E [employer] [facility] RAD J45.909,J44.9 [id number] 11/30/2017 13:00:00 12/03/2017 00:01:00 DIS Outpatient MEGA, AUDREY E [employer] [facility] PULM F41.9 ANXIETY J45.909 ASTHMA [id number] 10/19/2017 15:24:00 10/19/2017 23:59:59 CLS Outpatient MEGA, AUDREY E [employer] [facility] LAB J44.9 R09.02 I26.99 J98.4 [id number] 06/30/2017 08:37:00 06/30/2017 23:59:59 CLS Outpatient AUDREY AYOUB APRN [facility] LAB J44.9 [id number] 06/29/2017 14:43:00 06/29/2017 23:59:59 CLS Outpatient CORINE MEDINA WEN Mckenzie [facility] RAD COPD,ASTHMA [id number] 06/14/2017 15:28:00 06/14/2017 23:59:59 CLS Outpatient AUDREY AYOUB APRN [facility] RAD J45.909 ASTHMA [id number] 08/30/2018 11:45:00 PEN PreadMATILDE Vo MD [facility] MORBID OBESITY [id number] 01/22/2018 11:05:00 Document Registration [id number] 08/06/2018 15:45:00 08/06/2018 23:59:59 CLS Outpatient JhonnyMeryl salesie [id number] 06/26/2018 14:46:00 06/26/2018 23:59:59 CLS Outpatient JhonnyCarolina [id number] 05/02/2018 11:05:00 05/02/2018 23:59:59 CLS Outpatient JhonnyMerylie [id number] 04/30/2018 08:38:00 04/30/2018 23:59:59 CLS Outpatient JhonnyMerylie [id number] 04/16/2018 12:00:00 04/16/2018 23:59:59 CLS Outpatient JhonnyMerylie [id number] 04/03/2018 13:30:00 04/03/2018 23:59:59 CLS Outpatient JhonnyMerylie [id number] 08/04/2018 14:05:00 Document Registration
[2018-09-01 00:26] LABS: BASOPHILS % (AUTO) 0 % (0-10); EOSINOPHILS % (AUTO) 0 % (0-10); HEMATOCRIT 38 % (35-52); HEMOGLOBIN 11.9 G/DL (11.5-16.0); LYMPHOCYTES # (AUTO) 1.4 X 10^3 (1.0-4.0); LYMPHOCYTES % (AUTO) 10 % (12-44); MEAN CORPUSCULAR HEMOGLOBIN 26 PG (25-34); MEAN CORPUSCULAR HGB CONC 31 G/DL (32-36); MEAN CORPUSCULAR VOLUME 84 FL (80-99); MONOCYTES # (AUTO) 1.2 X 10^3 (0.0-1.0); MONOCYTES % (AUTO) 9 % (0-12); NEUTROPHILS # (AUTO) 11.2 X 10^3 (1.8-7.8); NEUTROPHILS % (AUTO) 81 % (42-75); PLATELET COUNT 208 10^3/uL (130-400); RED BLOOD COUNT 4.53 10^6/uL (4.35-5.85); RED CELL DISTRIBUTION WIDTH 13.7 % (10.0-14.5); WHITE BLOOD COUNT 13.8 10^3/uL (4.3-11.0)
[2018-09-01 00:32] LABS: INR 1.1 (0.8-1.4); PROTHROMBIN TIME PATIENT 13.8 SEC (12.2-14.7)
[2018-09-01 00:37] LABS: BILIRUBIN,URINE NEGATIVE (NEGATIVE); CLARITY,URINE CLEAR; COLOR,URINE YELLOW; GLUCOSE, URINE (UA) NEGATIVE (NEGATIVE); KETONES,URINE 4+ (NEGATIVE); LEUKOCYTE ESTERASE ,URINE 1+ (NEGATIVE); NITRITE,URINE NEGATIVE (NEGATIVE); PH,URINE 6 (5-9); PROTEIN,URINE 1+ (NEGATIVE); UROBILINOGEN,URINE 1 MG/DL (NORMAL)
[2018-09-01] MEDS ORDERED: fentaNYL INJECTION 100 MCG/2 ML AMP ONE (00:40)
[2018-09-01] MEDS ORDERED: fentaNYL INJECTION 100 MCG/2 ML AMP IVP STA (00:41)
[2018-09-01 00:44] LABS: ALANINE AMINOTRANSFERASE 39 U/L (0-55); ALBUMIN 3.8 GM/DL (3.2-4.5); ALKALINE PHOSPHATASE 93 U/L (40-136); BILIRUBIN,TOTAL 0.7 MG/DL (0.1-1.0); BUN/CREATININE RATIO 10; CALCIUM 9.4 MG/DL (8.5-10.1); CARBON DIOXIDE 24 MMOL/L (21-32); CHLORIDE 105 MMOL/L (98-107); GFR ESTIMATED > 60; GLUCOSE 135 MG/DL (70-105); POTASSIUM 4.2 MMOL/L (3.6-5.0); SODIUM 140 MMOL/L (135-145); TOTAL PROTEIN 6.5 GM/DL (6.4-8.2)
[2018-09-01 00:51] LABS: BACTERIA,URINE TRACE /HPF; WBC,URINE 0-2 /HPF
[2018-09-01] MEDS ORDERED: NS 250 ML (IVPB) BAG IV ONE (01:45)
[2018-09-01] MEDS ORDERED: RECEIVED CONTRAST (Hold Metformin) IV SCH (01:45)
[2018-09-01] MEDS ORDERED: IOHEXOL 350 MG/ML 100 ML (OMNIPAQUE 350) VIAL IV ONE (01:45)
[2018-09-01] MEDS ORDERED: NS IV 500 ML 500 ML IV ONE (02:58)
[2018-09-01] MEDS ORDERED: HYDROmorphone 2 MG/ML VIAL (DILAUDID) IV STA (02:58)
[2018-09-01 04:30] VITALS: BP 134/49
--- NOTE | 2018-09-01 05:38 | Diagnostic Imaging Report ---
INDICATION: Fever. Status post recent bariatric surgery COMPARISON: 07/31/2018 FINDINGS: Frontal and lateral views of the chest demonstrate normal heart size and pulmonary vascularity. The lungs show low inspiratory volumes, but otherwise clear. There are no signs of infiltrate, pleural effusions or pneumothoraces. The visualized osseous structures show no acute abnormalities. Radiopaque tubing projects over the left upper abdominal quadrant. IMPRESSION: 1. No acute process. No signs of infiltrates, effusions or pneumothoraces. Dictated by: Dictated on workstation # [id number]
--- NOTE | 2018-09-01 07:03 | Diagnostic Imaging Report ---
PROCEDURE: CT abdomen and pelvis with contrast. TECHNIQUE: Multiple contiguous axial images were obtained through the abdomen and pelvis after administration of intravenous contrast. INDICATION: Fever. Bariatric surgery complications. COMPARISON: 12/05/2017 FINDINGS: Included portions of the lung bases show mild atelectasis bilaterally. CT ABDOMEN: Postsurgical changes of the stomach are noted. Small bowel loops are nondistended. Normal appendix cannot be adequately identified, but there is no pericecal inflammation. There is a surgical drain within the anterior margins of the left upper abdominal quadrant. There is a small amount of scattered pneumoperitoneum within the upper abdomen. There is a focal air-fluid level in the anterior left upper abdominal quadrant adjacent to the surgical drain that measures 3.1 x 2.6 cm. Despite the focality of this air-fluid collection, there is no definite enhancing rim to suggest focal loculation. There is otherwise no significant free fluid scattered throughout the abdomen. No other suspicious loculated air-fluid collections are identified. There is nonspecific stranding of the intraperitoneal fat of the anterior upper abdomen. Multiple surgical jayla are noted within the abdomen anteriorly and midline adjacent to the abdominal wall. There is focal diastases of the rectus abdominal muscle with thinning of the anterior abdominal wall and mild eventration, but no jesus herniation is identified. Benign-appearing left renal cysts are noted. Otherwise, the kidneys, adrenal glands, spleen, pancreas, and liver have an unremarkable CT appearance. No abnormal mesenteric or retroperitoneal adenopathy is identified. Bony structures show no acute abnormalities. CT PELVIS: The urinary bladder is grossly unremarkable. There is no loculated fluid collection, free fluid, or free air within the pelvis. No abnormal lymph nodes are identified. Bony structures show no acute abnormalities. IMPRESSION: 1. Postsurgical changes of the abdomen, as described above. Again, there is focal air-fluid level within the left upper abdominal quadrant adjacent to the surgical drain. No other suspicious focal fluid collection is seen to suggest abscess. 2. Mild amount of scattered pneumoperitoneum. This is not unexpected given recent surgery. 3. Postsurgical changes to the anterior abdominal wall, as described above. No jesus herniation. Dictated by: Dictated on workstation # [id number]
== END 2018-09-01 04:30 | disposition home or self-care (01) ==
LOC: EDUNIT# 22:25 → ER 22:27
DX: G89.18 Other acute postprocedural pain (principal); R10.12 Left upper quadrant pain; E86.0 Dehydration; R50.9 Fever, unspecified; J44.9 Chronic obstructive pulmonary disease, unspecified; K21.9 Gastro-esophageal reflux disease without esophagitis; F41.9 Anxiety disorder, unspecified; F32.9 Major depressive disorder, single episode, unspecified; F64.9 Gender identity disorder, unspecified; G47.30 Sleep apnea, unspecified; Z86.711 Personal history of pulmonary embolism; Z87.19 Personal history of other diseases of the digestive system; Z90.710 Acquired absence of both cervix and uterus; Z86.79 Personal history of other diseases of the circulatory system; Z98.84 Bariatric surgery status; Z88.5 Allergy status to narcotic agent; Z88.8 Allergy status to other drugs, medicaments and biological substances; Z79.51 Long term (current) use of inhaled steroids; Z98.890 Other specified postprocedural states
CPT/HCPCS: 36415; 71046; 74177; 85025; 87804; 96361; 96374; 96375

== ENCOUNTER 2018-09-06 13:16 | Inpatient (IN) | payer BC ==
[~2018-09-06] VITALS: Ht 162.6 cm; Wt 120.2 kg
[~2018-09-06 13:16] MED LIST changes: -ARIP5TAB20 PO; -FLUT16SP22 NS; -GABA800T2 PO; -HYDR118S10 PO; -LAMO100T PO; -LEVO500T80 PO; -NYST15CR TOP; -ONDA4TAB10 PO; -ROPI4TAB5 PO; -[UNRECOGNIZED DRUG - OTHER] PO
[2018-09-06 13:40] VITALS: BP 177/77
[2018-09-06] MEDS ORDERED: ONDANSETRON 4 MG/2 ML (SDV) Z0FRAN IV PRN (14:00)
[2018-09-06] MEDS ORDERED: NS IV 1000 ML 1,000 ML IV SCH (14:00)
[2018-09-06] MEDS: LEVOFLOXACIN 500 MG/100 ML IV 100 ML IV SCH (15:24)
[2018-09-06] MEDS: fentaNYL INJECTION 100 MCG/2 ML AMP IV PRN ×2 (15:25→19:56)
[2018-09-06 15:34] LABS: HEMOGLOBIN 9.7 G/DL (11.5-16.0); MEAN PLATELET VOLUME 10.6 FL (7.4-10.4); RED BLOOD COUNT 3.77 10^6/uL (4.35-5.85); RED CELL DISTRIBUTION WIDTH 14.1 % (10.0-14.5); WHITE BLOOD COUNT 6.8 10^3/uL (4.3-11.0)
--- NOTE | 2018-09-06 15:41 | Diagnostic Imaging Report ---
INDICATION: PICC line placement. TIME OF EXAM: 03:00 p.m. Correlation is made with prior study from 09/01/2018. Right upper extremity PICC line has tip overlying SVC right atrial junction. No pneumothorax is identified. Lungs are clear apart from linear atelectasis in the left mid lung. IMPRESSION: PICC line placement, as described. Dictated by: Dictated on workstation # [id number]
[2018-09-06 15:52] LABS: INR 1.1 (0.8-1.4)
[2018-09-06] MEDS ORDERED: ROPI4TAB5 PO (15:55)
[2018-09-06] MEDS ORDERED: LEVO5TAB28 PO (15:55)
[2018-09-06] MEDS ORDERED: ONDA4TAB10 PO (15:55)
[2018-09-06] MEDS ORDERED: ARIP5TAB20 PO (15:55)
[2018-09-06] MEDS ORDERED: GABA800T2 PO (15:55)
[2018-09-06] MEDS ORDERED: HYDR118S10 PO (15:55)
[2018-09-06] MEDS ORDERED: LEVO500T80 PO (15:55)
[2018-09-06] MEDS ORDERED: NYST15CR TOP (15:55)
[2018-09-06] MEDS ORDERED: LAMO100T PO (15:55)
[2018-09-06] MEDS ORDERED: FLUT16SP22 NS (15:55)
[2018-09-06 15:56] LABS: ALANINE AMINOTRANSFERASE 16 U/L (0-55); ALBUMIN 3.2 GM/DL (3.2-4.5); ALKALINE PHOSPHATASE 95 U/L (40-136); BILIRUBIN,TOTAL 0.4 MG/DL (0.1-1.0); BUN/CREATININE RATIO 16; CALCIUM 9.5 MG/DL (8.5-10.1); CARBON DIOXIDE 30 MMOL/L (21-32); CHLORIDE 100 MMOL/L (98-107); CREATININE SERUM 0.63 MG/DL (0.60-1.30); GFR ESTIMATED > 60; GLUCOSE 104 MG/DL (70-105); MAGNESIUM 2.2 MG/DL (1.8-2.4); PHOSPHORUS 3.4 MG/DL (2.3-4.7); POTASSIUM 3.4 MMOL/L (3.6-5.0); SODIUM 141 MMOL/L (135-145); TOTAL PROTEIN 6.4 GM/DL (6.4-8.2); TRIGLYCERIDES 122 MG/DL (<150)
[2018-09-06] MEDS ORDERED: [UNRECOGNIZED DRUG - OTHER] PO (15:56)
[2018-09-06 16:00] VITALS: BP 123/64
[2018-09-06] MEDS ORDERED: TPN IV SCH (16:15)
--- OUTSIDE RECORDS SUMMARY | 2018-09-06 16:20 | XMS REPORT | Continuity of Care Document ---
Author Author [facility] Address Unknown Phone Unavailable Allergies Active Description Code Type Severity Reaction Onset Reported/Identified Relationship to Patient Clinical Status Yes ALBUTEROL [id number] DRUG N/A TACHYCARDIA Yes PERCOCET [id number] BRANDNAME N/ A ITCHING Yes No Allergy Information Available [id number] Drug Allergy Unknown N/A 2016 Yes acetaminophen [id number] Drug Allergy Unknown N/A 07/18/2018 Yes albuterol [id number] Drug Allergy Unknown tachycardia 07/18/2018 Yes estrogens, conjugated [id number] Drug Allergy Unknown N/A 07/18/2018 Yes oxycodone [id number] Drug Allergy Unknown N/A 07/18/2018 Yes pregabalin [id number] Drug Allergy Unknown N/A 07/18/2018 Yes albuterol [id number] Drug Allergy Severe tachycardia 08/27/2018 Yes estrogens, conjugated [id number] Drug Allergy Severe PE 08/27/2018 Yes pregabalin [id number] Drug Allergy Moderate VISION PROBLEMS 08/27/2018 Yes acetaminophen [id number] Drug Allergy Mild ITCHING 08/27/2018 Yes oxycodone [id number] Drug Allergy Mild ITCHING 08/27/2018 Medications Medication Packaging Start Date Stop Date [...] Tablet 06/26/2018 100 mg GABAPENTIN Capsule 08/06/2018 08/27/2018 300 mg GABAPENTIN Tablet 08/27/2018 800 mg Problems Date Dx Coded Attending Type [...] LIVER, NOT ELSEWHERE C 06/28/2017 AUDREY AYOUB APRN Ot R16.2 HEPATOMEGALY WITH SPLENOMEGALY, NOT ELSE 06/28/2017 AUDREY AYOUB APRN Ot Z86.11 PERSONAL HISTORY OF TUBERCULOSIS 06/30/2017 [...] MASS AND LUMP, LOWER 07/12/2017 AUDREY AYOUB APRN Ot J44.9 CHRONIC OBSTRUCTIVE [...] PERSONAL HISTORY OF TUBERCULOSIS 10/19/2017 WEN POOL DO, Ot E04.1 NONTOXIC SINGLE THYROID NODULE 10/19/2017 WEN POOL DO, Ot I26.99 OTHER PULMONARY EMBOLISM WITHOUT ACUTE [...] AUDREY AYOUB APRN Ot R09.02 HYPOXEMIA 10/19/2017 MEGA, AUDREY E IT MANAGER Ot R94.2 ABNORMAL RESULTS OF PULMONARY FUNCTION S 10/20/2017 IESHA AYOUBINE E IT MANAGER Ot I26.99 OTHER PULMONARY EMBOLISM WITHOUT ACUTE C 10/20/2017 IESHA AYOUBINE Rosy IT MANAGER Ot J44.9 CHRONIC OBSTRUCTIVE PULMONARY DISEASE, U 10/20/2017 IESHA AYOUBINE E IT MANAGER Ot J98.4 OTHER DISORDERS OF LUNG 10/20/2017 IESHA AYOUBINE E IT MANAGER Ot R09.02 HYPOXEMIA 10/25/2017 IESHA AYOUBINE E IT MANAGER Ot E07.9 DISORDER OF THYROID, UNSPECIFIED 10/25/2017 IESHA AYOUBINE E IT MANAGER Ot F41.9 ANXIETY DISORDER, UNSPECIFIED 10/25/2017 IESHA AYOUBINE E IT MANAGER Ot G47.30 SLEEP APNEA, UNSPECIFIED 10/25/2017 IESHA AYOUBINE Rosy IT MANAGER Ot J44.9 CHRONIC OBSTRUCTIVE PULMONARY DISEASE, U 10/25/2017 IESHA AYOUBINE E IT MANAGER Ot J45.909 UNSPECIFIED ASTHMA, UNCOMPLICATED 10/25/2017 IESHA AYOUBINE E IT MANAGER Ot J98.4 OTHER DISORDERS OF LUNG 10/25/2017 IESHA AYOUBINE E IT MANAGER Ot R09.02 HYPOXEMIA 10/25/2017 IESHA AYOUBINE E IT MANAGER Ot R94.2 ABNORMAL RESULTS OF PULMONARY FUNCTION S 11/02/2017 AUDREY AYOUB IT MANAGER Ot I26.99 OTHER PULMONARY EMBOLISM WITHOUT ACUTE C 11/02/2017 AUDREY AYOUB IT MANAGER Ot J44.9 CHRONIC OBSTRUCTIVE PULMONARY DISEASE, U 11/02/2017 AUDREY AYOUB IT MANAGER Ot J98.4 OTHER DISORDERS OF LUNG 11/02/2017 IESHA AYOUBINE Rosy IT MANAGER Ot R09.02 HYPOXEMIA 11/23/2017 IESHA AYOUBINE Rosy IT MANAGER Ot I26.99 OTHER PULMONARY EMBOLISM WITHOUT ACUTE C 11/23/2017 IESHA AYOUBINE Rosy IT MANAGER Ot J44.9 CHRONIC OBSTRUCTIVE PULMONARY DISEASE, U 11/23/2017 IESHA AYOUBINE Rosy IT MANAGER Ot J98.4 OTHER DISORDERS OF LUNG 11/23/2017 IESHA AYOUBINE Rosy IT MANAGER Ot R09.02 HYPOXEMIA 11/23/2017 IESHA AYOUBINE E IT MANAGER Ot E07.9 DISORDER OF THYROID, UNSPECIFIED 11/23/2017 IESHA AYOUBINE Rosy IT MANAGER Ot F41.9 ANXIETY DISORDER, UNSPECIFIED 11/23/2017 IESHA AYOUBINE Rosy IT MANAGER Ot G47.30 SLEEP APNEA, UNSPECIFIED 11/23/2017 IESHA AYOUBINE Rosy IT MANAGER Ot J44.9 CHRONIC OBSTRUCTIVE PULMONARY DISEASE, U 11/23/2017 IESHA AYOUBINE E IT MANAGER Ot J45.909 UNSPECIFIED ASTHMA, UNCOMPLICATED 11/23/2017 IESHA AYOUBINE E IT MANAGER Ot J98.4 OTHER DISORDERS OF LUNG 11/23/2017 IESHA AYOUBINE Rosy IT MANAGER Ot R09.02 HYPOXEMIA 11/23/2017 IESHA AYOUBINE E IT MANAGER Ot R94.2 ABNORMAL RESULTS OF PULMONARY FUNCTION S 11/23/2017 AUDREY AYOUB IT MANAGER Ot I26.99 OTHER PULMONARY EMBOLISM WITHOUT ACUTE C 11/23/2017 AUDREY AYOUB IT MANAGER Ot J44.9 CHRONIC OBSTRUCTIVE PULMONARY DISEASE, U 11/23/2017 AUDREY AYOUB IT MANAGER Ot J98.4 OTHER DISORDERS OF LUNG 11/23/2017 AUDREY AYOUB IT MANAGER Ot R09.02 HYPOXEMIA 12/03/2017 IESHA AYOUBINE Rosy IT MANAGER Ot E07.9 DISORDER OF THYROID, UNSPECIFIED 12/03/2017 IESHA AYOUBINE Rosy IT MANAGER Ot F41.9 ANXIETY DISORDER, UNSPECIFIED 12/03/2017 AUDREY AYOUB IT MANAGER Ot G47.30 SLEEP APNEA, UNSPECIFIED 12/03/2017 IESHA AYOUBINE Rosy IT MANAGER Ot J44.9 CHRONIC OBSTRUCTIVE PULMONARY DISEASE, U 12/03/2017 AUDREY AYOUB IT MANAGER Ot J45.909 UNSPECIFIED ASTHMA, UNCOMPLICATED 12/03/2017 IESHA AYOUBINE Rosy IT MANAGER Ot J98.4 OTHER DISORDERS OF LUNG 12/03/2017 IESHA AYOUBINE Rosy IT MANAGER Ot R09.02 HYPOXEMIA 12/03/2017 IESHA AYOUBINE E IT MANAGER Ot R94.2 ABNORMAL RESULTS OF PULMONARY FUNCTION S 12/05/2017 AUDREY AYOUB IT MANAGER Ot E07.9 DISORDER OF THYROID, UNSPECIFIED 12/05/2017 IESHA AYOUBINE Rosy IT MANAGER Ot F41.9 ANXIETY DISORDER, UNSPECIFIED 12/05/2017 IESHA AYOBUINE Rosy IT MANAGER Ot G47.30 SLEEP APNEA, UNSPECIFIED 12/05/2017 IESHA AYOUBINE Rosy IT MANAGER Ot J44.9 CHRONIC OBSTRUCTIVE PULMONARY DISEASE, U 12/05/2017 AUDREY AYOUB IT MANAGER Ot J45.909 UNSPECIFIED ASTHMA, UNCOMPLICATED 12/05/2017 IESHA AYOUBINE Rosy IT MANAGER Ot J98.4 OTHER DISORDERS OF LUNG 12/05/2017 IESHA AYOUBINE Rosy IT MANAGER Ot R09.02 HYPOXEMIA 12/05/2017 IESHA AYOUBINE E IT MANAGER Ot R94.2 ABNORMAL RESULTS OF PULMONARY FUNCTION S 12/06/2017 AUDREY AYOUB IT MANAGER Ot E07.9 DISORDER OF THYROID, UNSPECIFIED 12/06/2017 AUDREY AYOUB IT MANAGER Ot F41.9 ANXIETY DISORDER, UNSPECIFIED 12/06/2017 AUDREY AYOUB IT MANAGER Ot G47.30 SLEEP APNEA, UNSPECIFIED 12/06/2017 AUDREY AYOUB IT MANAGER Ot J44.9 CHRONIC OBSTRUCTIVE PULMONARY DISEASE, U 12/06/2017 AUDREY AYOUB IT MANAGER Ot J45.909 UNSPECIFIED ASTHMA, UNCOMPLICATED 12/06/2017 AUDREY AYOUB IT MANAGER Ot J98.4 OTHER DISORDERS OF LUNG 12/06/2017 AUDREY AYOUB IT MANAGER Ot R09.02 HYPOXEMIA 12/06/2017 AUDREY AYOUB IT MANAGER Ot R94.2 ABNORMAL RESULTS OF PULMONARY FUNCTION S 12/06/2017 AUDREY AYOUB IT MANAGER Ot E04.1 NONTOXIC SINGLE THYROID NODULE 12/06/2017 AUDREY AYOUB IT MANAGER Ot F41.9 ANXIETY DISORDER, UNSPECIFIED 12/06/2017 AUDREY AYOUB IT MANAGER Ot I26.99 OTHER PULMONARY EMBOLISM WITHOUT ACUTE C 12/06/2017 AUDREY AYOUB IT MANAGER Ot J44.9 CHRONIC OBSTRUCTIVE PULMONARY DISEASE, U 12/06/2017 AUDREY AYOUB IT MANAGER Ot J98.4 OTHER DISORDERS OF LUNG 12/08/2017 AUDREY AYOUB IT MANAGER Ot E07.9 DISORDER OF THYROID, UNSPECIFIED 12/08/2017 AUDREY AYOUB IT MANAGER Ot F41.9 ANXIETY DISORDER, UNSPECIFIED 12/08/2017 AUDREY AYOUB IT MANAGER Ot G47.30 SLEEP APNEA, UNSPECIFIED 12/08/2017 AUDREY AYOUB IT MANAGER Ot J44.9 CHRONIC OBSTRUCTIVE PULMONARY DISEASE, U 12/08/2017 AUDREY AYOUB IT MANAGER Ot J45.909 UNSPECIFIED ASTHMA, UNCOMPLICATED 12/08/2017 IESHA AYOUBINE E IT MANAGER Ot J98.4 OTHER DISORDERS OF LUNG 12/08/2017 IESHA AYOUBINE E IT MANAGER Ot R09.02 HYPOXEMIA 12/08/2017 MEGA, AUDREY E IT MANAGER Ot R94.2 ABNORMAL RESULTS OF PULMONARY FUNCTION S 12/09/2017 AUDREY AYOUB IT MANAGER Ot E07.9 DISORDER OF THYROID, UNSPECIFIED 12/09/2017 AUDREY AYOUB IT MANAGER Ot F41.9 ANXIETY DISORDER, UNSPECIFIED 12/09/2017 IESHA AYOUBINE Rosy IT MANAGER Ot G47.30 SLEEP APNEA, UNSPECIFIED 12/09/2017 AUDREY AYOUB IT MANAGER Ot J44.9 CHRONIC OBSTRUCTIVE PULMONARY DISEASE, U 12/09/2017 AUDREY AYOUB IT MANAGER Ot J45.909 UNSPECIFIED ASTHMA, UNCOMPLICATED 12/09/2017 IESHA AYOUBINE Rosy IT MANAGER Ot J98.4 OTHER DISORDERS OF LUNG 12/09/2017 AUDREY AYOUB IT MANAGER Ot R09.02 HYPOXEMIA 12/09/2017 AUDREY AYOUB IT MANAGER Ot R94.2 ABNORMAL RESULTS OF PULMONARY FUNCTION S 12/11/2017 AUDREY AYOUB IT MANAGER Ot E04.1 NONTOXIC SINGLE THYROID NODULE 12/11/2017 AUDREY AYOUB IT MANAGER Ot F41.9 ANXIETY DISORDER, UNSPECIFIED 12/11/2017 AUDREY AYOUB IT MANAGER Ot I26.99 OTHER PULMONARY EMBOLISM WITHOUT ACUTE C 12/11/2017 AUDREY AYOUB IT MANAGER Ot J44.9 CHRONIC OBSTRUCTIVE PULMONARY DISEASE, U 12/11/2017 AUDRYE AYOUB IT MANAGER Ot J98.4 OTHER DISORDERS OF LUNG 12/11/2017 AUDREY AYOUB IT MANAGER Ot I26.99 OTHER PULMONARY EMBOLISM WITHOUT ACUTE C 12/11/2017 AUDREY AYOUB IT MANAGER Ot J44.9 CHRONIC OBSTRUCTIVE PULMONARY DISEASE, U 12/11/2017 IESHA AYOUBINE Rosy IT MANAGER Ot J98.4 OTHER DISORDERS OF LUNG 12/11/2017 AUDREY AYOUB IT MANAGER Ot R09.02 HYPOXEMIA 12/11/2017 IESHA AYOUBINE Rosy IT MANAGER Ot G47.30 SLEEP APNEA, UNSPECIFIED 12/11/2017 AUDREY AYOUB IT MANAGER Ot J42 UNSPECIFIED CHRONIC BRONCHITIS 12/11/2017 AUDREY AYOUB IT MANAGER Ot J44.9 CHRONIC OBSTRUCTIVE PULMONARY DISEASE, U 12/11/2017 AUDREY AYOUB IT MANAGER Ot J45.909 UNSPECIFIED ASTHMA, UNCOMPLICATED 12/11/2017 AUDREY AYOUB IT MANAGER Ot K76.0 FATTY (CHANGE OF) LIVER, NOT ELSEWHERE C 12/11/2017 AUDREY AYOUB APRN Ot R16.2 HEPATOMEGALY WITH SPLENOMEGALY, NOT ELSE 12/11/2017 AUDREY AYOUB IT MANAGER Ot Z86.11 PERSONAL HISTORY OF TUBERCULOSIS 12/11/2017 [...] MASS AND LUMP, LOWER 12/11/2017 AUDREY AYOUB IT MANAGER Ot J44.9 CHRONIC OBSTRUCTIVE PULMONARY DISEASE, U 12/11/2017 AUDREY AYOUB IT MANAGER Ot E04.1 NONTOXIC SINGLE THYROID NODULE 12/11/2017 AUDREY AYOUB IT MANAGER Ot F41.9 ANXIETY DISORDER, UNSPECIFIED 12/11/2017 AUDREY AYOUB IT MANAGER Ot I26.99 OTHER PULMONARY EMBOLISM WITHOUT ACUTE C 12/11/2017 AUDREY AYOUB APRN Ot J44.9 CHRONIC OBSTRUCTIVE PULMONARY DISEASE, U 12/11/2017 AUDREY AYOUB IT MANAGER Ot J98.4 OTHER DISORDERS OF LUNG 12/11/2017 AUDREY AYOUB APRN Ot I26.99 OTHER PULMONARY EMBOLISM WITHOUT ACUTE C 12/11/2017 AUDREY AYOUB IT MANAGER Ot J44.9 CHRONIC OBSTRUCTIVE PULMONARY DISEASE, U 12/11/2017 AUDREY AYOUB IT MANAGER Ot J98.4 OTHER DISORDERS OF LUNG 12/11/2017 AUDREY AYOUB IT MANAGER Ot R09.02 HYPOXEMIA 12/11/2017 AUDREY AYOUB IT MANAGER Ot E07.9 DISORDER OF THYROID, UNSPECIFIED 12/11/2017 AUDREY AYOUB IT MANAGER Ot F41.9 ANXIETY DISORDER, UNSPECIFIED 12/11/2017 AUDREY AYOUB IT MANAGER Ot G47.30 SLEEP APNEA, UNSPECIFIED 12/11/2017 AUDREY AYOUB IT MANAGER Ot J44.9 CHRONIC OBSTRUCTIVE PULMONARY DISEASE, U 12/11/2017 AUDREY AYOUB IT MANAGER Ot J45.909 UNSPECIFIED ASTHMA, UNCOMPLICATED 12/11/2017 AUDREY AYOUB IT MANAGER Ot J98.4 OTHER DISORDERS OF LUNG 12/11/2017 AUDREY AYOUB IT MANAGER Ot R09.02 HYPOXEMIA 12/11/2017 AUDREY AYOUB IT MANAGER Ot R94.2 ABNORMAL RESULTS OF PULMONARY FUNCTION S 12/13/2017 AUDREY AYOUB IT MANAGER Ot J42 UNSPECIFIED CHRONIC BRONCHITIS 12/13/2017 AUDREY AYOUB IT MANAGER Ot J45.909 UNSPECIFIED ASTHMA, UNCOMPLICATED 12/13/2017 AUDREY AYOUB IT MANAGER Ot J98.4 OTHER DISORDERS OF LUNG 12/13/2017 AUDREY AYOUB IT MANAGER Ot R09.02 HYPOXEMIA 12/13/2017 AUDREY AYOUB IT MANAGER Ot R94.2 ABNORMAL RESULTS OF PULMONARY FUNCTION S 12/19/2017 AUDREY AYOUB IT MANAGER Ot J42 UNSPECIFIED CHRONIC BRONCHITIS 12/19/2017 AUDREY AYOUB IT MANAGER Ot J45.909 UNSPECIFIED ASTHMA, UNCOMPLICATED 12/19/2017 AUDREY AYOUB IT MANAGER Ot J98.4 OTHER DISORDERS OF LUNG 12/20/2017 AUDREY AYOUB IT MANAGER Ot E04.1 NONTOXIC SINGLE THYROID NODULE 12/20/2017 AUDREY AYOUB IT MANAGER Ot F41.9 ANXIETY DISORDER, UNSPECIFIED 12/20/2017 AUDREY AYOUB IT MANAGER Ot I26.99 OTHER PULMONARY EMBOLISM WITHOUT ACUTE C 12/20/2017 AUDREY AYOUB IT MANAGER Ot J44.9 CHRONIC OBSTRUCTIVE PULMONARY DISEASE, U 12/20/2017 IESHA AYOUBINE Rosy IT MANAGER Ot J98.4 OTHER DISORDERS OF LUNG 12/27/2017 AUDREY AYOUB IT MANAGER Ot J42 UNSPECIFIED CHRONIC BRONCHITIS 12/27/2017 AUDREY AYOUB IT MANAGER Ot J45.909 UNSPECIFIED ASTHMA, UNCOMPLICATED 12/27/2017 MEGAIESHA MAGANAINE Rosy IT MANAGER Ot J98.4 OTHER DISORDERS OF LUNG 12/27/2017 IESHA AYOUBINE Rosy IT MANAGER Ot R09.02 HYPOXEMIA 12/27/2017 MEGA, AUDREY E IT MANAGER Ot R94.2 ABNORMAL RESULTS OF PULMONARY FUNCTION S 01/03/2018 AUDREY AYOUB IT MANAGER Ot J42 UNSPECIFIED CHRONIC BRONCHITIS 01/03/2018 IESHA AYOUBINE E IT MANAGER Ot J45.909 UNSPECIFIED ASTHMA, UNCOMPLICATED 01/03/2018 MEGAIESHA MAGANAINE E IT MANAGER Ot J98.4 OTHER DISORDERS OF LUNG 03/07/2018 IESHA AYOUBINE E IT MANAGER Ot E07.9 DISORDER OF THYROID, UNSPECIFIED 03/07/2018 IESHA AYOUBINE E IT MANAGER Ot F41.9 ANXIETY DISORDER, UNSPECIFIED 03/07/2018 IESHA AYOUBINE E IT MANAGER Ot G47.30 SLEEP APNEA, UNSPECIFIED 03/07/2018 IESHA AYOUBINE Rosy IT MANAGER Ot J44.9 CHRONIC OBSTRUCTIVE PULMONARY DISEASE, U 03/07/2018 IESHA AYOUBINE Rosy IT MANAGER Ot J45.909 UNSPECIFIED ASTHMA, UNCOMPLICATED 03/07/2018 MEGAIESHA MAGANAINE Rosy IT MANAGER Ot J98.4 OTHER DISORDERS OF LUNG 03/07/2018 IESHA AYOUBINE E IT MANAGER Ot R09.02 HYPOXEMIA 03/07/2018 IESHA AYOUBINE E IT MANAGER Ot R94.2 ABNORMAL RESULTS OF PULMONARY FUNCTION S 03/08/2018 AUDREY AYOUB IT MANAGER Ot E07.9 DISORDER OF THYROID, UNSPECIFIED 03/08/2018 IESHA AYOUBINE E IT MANAGER Ot F41.9 ANXIETY DISORDER, UNSPECIFIED 03/08/2018 IESHA AYOUBINE E IT MANAGER Ot G47.30 SLEEP APNEA, UNSPECIFIED 03/08/2018 IESHA AYOUBINE E IT MANAGER Ot J44.9 CHRONIC OBSTRUCTIVE PULMONARY DISEASE, U 03/08/2018 IESHA AYOUBINE E IT MANAGER Ot J45.909 UNSPECIFIED ASTHMA, UNCOMPLICATED 03/08/2018 IESHA AYOUBINE E IT MANAGER Ot J98.4 OTHER DISORDERS OF LUNG 03/08/2018 MEGAIESHAAUDREY E IT MANAGER Ot R09.02 HYPOXEMIA 03/08/2018 IESHA AYOUBINE E IT MANAGER Ot R94.2 ABNORMAL RESULTS OF PULMONARY FUNCTION S 04/03/2018 Carolina Barry M79.7 Fibromyalgia 04/10/2018 Jhonny[place]ina sales M79.7 Fibromyalgia 04/10/2018 P M542 Cervicalgia 04/10/2018 S R51 Headache 07/17/2018 AUDREY AYOUB IT MANAGER Ot E07.9 DISORDER OF THYROID, UNSPECIFIED 07/17/2018 MEGAIESHA MAGANAINE E IT MANAGER Ot F41.9 ANXIETY DISORDER, UNSPECIFIED 07/17/2018 IESHA AYOUBINE E IT MANAGER Ot G47.30 SLEEP APNEA, UNSPECIFIED 07/17/2018 MEGA, AUDREY E IT MANAGER Ot J44.9 CHRONIC OBSTRUCTIVE PULMONARY DISEASE, U 07/17/2018 MEGAIESHA MAGANAINE E IT MANAGER Ot J45.909 UNSPECIFIED ASTHMA, UNCOMPLICATED 07/17/2018 MEGAIESHA MAGANAINE E IT MANAGER Ot J98.4 OTHER DISORDERS OF LUNG 07/17/2018 IESHA AYOUBINE E IT MANAGER Ot R09.02 HYPOXEMIA 07/17/2018 IESHA AYOUBINE Rosy IT MANAGER Ot R94.2 ABNORMAL RESULTS OF PULMONARY FUNCTION S 07/17/2018 IESHA AYOUBINE Rosy IT MANAGER Ot E07.9 DISORDER OF THYROID, UNSPECIFIED 07/17/2018 IESHA AYOUBINE E IT MANAGER Ot F41.9 ANXIETY DISORDER, UNSPECIFIED 07/17/2018 AUDREY AYOUB E IT MANAGER Ot G47.30 SLEEP APNEA, UNSPECIFIED 07/17/2018 IESHA AYOUBINE E IT MANAGER Ot J44.9 CHRONIC OBSTRUCTIVE PULMONARY DISEASE, U 07/17/2018 AUDREY AYOUB IT MANAGER Ot J45.909 UNSPECIFIED ASTHMA, UNCOMPLICATED 07/17/2018 IESHA AYOUBINE Rosy IT MANAGER Ot J98.4 OTHER DISORDERS OF LUNG 07/17/2018 IESHA AYOUBINE E IT MANAGER Ot R09.02 HYPOXEMIA 07/17/2018 IESHA AYOUBINE E IT MANAGER Ot R94.2 ABNORMAL RESULTS OF PULMONARY FUNCTION S 07/17/2018 MATILDE ADAMS MD Ot Z01.818 ENCOUNTER FOR OTHER PREPROCEDURAL EXAMIN 07/18/2018 AUDREY AYOUB IT MANAGER Ot G47.30 SLEEP APNEA, UNSPECIFIED 07/18/2018 AUDREY AYOUB IT MANAGER Ot J42 UNSPECIFIED CHRONIC BRONCHITIS 07/18/2018 IESHA AYOUBALLI Gallegos IT MANAGER Ot J44.9 CHRONIC OBSTRUCTIVE PULMONARY DISEASE, U 07/18/2018 AUDREY AYOUB IT MANAGER Ot J45.909 UNSPECIFIED ASTHMA, UNCOMPLICATED 07/18/2018 AUDREY AYOUB IT MANAGER Ot K76.0 FATTY (CHANGE OF) LIVER, NOT ELSEWHERE C 07/18/2018 AUDREY AYOUB IT MANAGER Ot R16.2 HEPATOMEGALY WITH SPLENOMEGALY, NOT ELSE 07/18/2018 AUDREY AYOUB IT MANAGER Ot Z86.11 PERSONAL HISTORY OF TUBERCULOSIS 07/18/2018 RITU POOL DOSON M Ot E04.1 NONTOXIC SINGLE THYROID NODULE 07/18/2018 RITU POOL DOSON M Ot I26.99 OTHER PULMONARY EMBOLISM WITHOUT ACUTE C 07/18/2018 RITU POOL DOSON M Ot K43.9 VENTRAL HERNIA WITHOUT OBSTRUCTION OR GA 07/18/2018 RITU POOL DOSON M Ot K76.0 FATTY (CHANGE OF) LIVER, NOT ELSEWHERE C 07/18/2018 WEN POOL DO M Ot R22.43 LOCALIZED SWELLING, MASS AND LUMP, LOWER 07/18/2018 AUDREY AYOUB IT MANAGER Ot J44.9 CHRONIC OBSTRUCTIVE PULMONARY DISEASE, U 07/18/2018 AUDREY AYOUB IT MANAGER Ot E04.1 NONTOXIC SINGLE THYROID NODULE 07/18/2018 AUDREY AYOUB IT MANAGER Ot F41.9 ANXIETY DISORDER, UNSPECIFIED 07/18/2018 AUDREY AYOUB IT MANAGER Ot I26.99 OTHER PULMONARY EMBOLISM WITHOUT ACUTE C 07/18/2018 AUDREY AYOUB IT MANAGER Ot J44.9 CHRONIC OBSTRUCTIVE PULMONARY DISEASE, U 07/18/2018 AUDREY YAOUB IT MANAGER Ot J98.4 OTHER DISORDERS OF LUNG 07/18/2018 AUDREY AYOUB IT MANAGER Ot I26.99 OTHER PULMONARY EMBOLISM WITHOUT ACUTE C 07/18/2018 AUDREY AYOUB IT MANAGER Ot J44.9 CHRONIC OBSTRUCTIVE PULMONARY DISEASE, U 07/18/2018 AUDREY AYOUB IT MANAGER Ot J98.4 OTHER DISORDERS OF LUNG 07/18/2018 AUDREY AYOUB IT MANAGER Ot R09.02 HYPOXEMIA 07/18/2018 AUDREY AYOUB IT MANAGER Ot J42 UNSPECIFIED CHRONIC BRONCHITIS 07/18/2018 AUDREY AYOUB IT MANAGER Ot J45.909 UNSPECIFIED ASTHMA, UNCOMPLICATED 07/18/2018 AUDREY AYOUB IT MANAGER Ot J98.4 OTHER DISORDERS OF LUNG 07/18/2018 AUDREY AYOUB IT MANAGER Ot J42 UNSPECIFIED CHRONIC BRONCHITIS 07/18/2018 AUDREY AYOUB IT MANAGER Ot J45.909 UNSPECIFIED ASTHMA, UNCOMPLICATED 07/18/2018 AUDREY AYOUB IT MANAGER Ot J98.4 OTHER DISORDERS OF LUNG 07/18/2018 AUDREY AYOUB IT MANAGER Ot R09.02 HYPOXEMIA 07/18/2018 AUDREY AYOUB IT MANAGER Ot R94.2 ABNORMAL RESULTS OF PULMONARY FUNCTION S 07/18/2018 AUDREY AYOUB IT MANAGER Ot E07.9 DISORDER OF THYROID, UNSPECIFIED 07/18/2018 AUDREY AYOUB IT MANAGER Ot F41.9 ANXIETY DISORDER, UNSPECIFIED 07/18/2018 AUDREY AYOUB IT MANAGER Ot G47.30 SLEEP APNEA, UNSPECIFIED 07/18/2018 AUDREY AYOUB IT MANAGER Ot J44.9 CHRONIC OBSTRUCTIVE PULMONARY DISEASE, U 07/18/2018 AUDREY YAOUB IT MANAGER Ot J45.909 UNSPECIFIED ASTHMA, UNCOMPLICATED 07/18/2018 AUDREY AYOUB IT MANAGER Ot J98.4 OTHER DISORDERS OF LUNG 07/18/2018 AUDREY AYOUB IT MANAGER Ot R09.02 HYPOXEMIA 07/18/2018 AUDREY AYOUB IT MANAGER Ot R94.2 ABNORMAL RESULTS OF PULMONARY FUNCTION S 07/18/2018 MATILDE ADAMS MD, Ot G47.33 OBSTRUCTIVE SLEEP APNEA (ADULT) (PEDIATR 07/18/2018 MATILDE ADAMS MD, Ot J44.9 CHRONIC OBSTRUCTIVE PULMONARY DISEASE, U 07/18/2018 MATILDE ADAMS MD Ot K21.0 GASTRO-ESOPHAGEAL REFLUX DISEASE WITH ES 07/18/2018 MATILDE ADAMS MD Ot K29.70 GASTRITIS, UNSPECIFIED, WITHOUT BLEEDING 07/18/2018 MATILDE ADAMS MD, Ot K44.9 DIAPHRAGMATIC HERNIA WITHOUT OBSTRUCTION 07/18/2018 MATILDE ADAMS MD, Ot Z79.899 OTHER RESE[employer] (CURRENT) DRUG THERAPY 07/23/2018 MATILDE ADAMS MD, Ot G47.33 OBSTRUCTIVE SLEEP APNEA (ADULT) (PEDIATR 07/23/2018 KIDO MD, TAKAAKI Ot J44.9 CHRONIC OBSTRUCTIVE PULMONARY DISEASE, U 07/23/2018 MATILDE ADAMS MD Ot K21.0 GASTRO-ESOPHAGEAL REFLUX DISEASE WITH ES 07/23/2018 MATILDE ADAMS MD Ot K29.70 GASTRITIS, UNSPECIFIED, WITHOUT BLEEDING 07/23/2018 MATILDE ADAMS MD Ot K44.9 DIAPHRAGMATIC HERNIA WITHOUT OBSTRUCTION 07/23/2018 MATILDE ADAMS MD Ot Z79.899 OTHER LONGTERM (CURRENT) DRUG THERAPY 08/02/2018 AUDREY AYOUB APRN Ot G47.00 INSOMNIA, UNSPECIFIED 08/02/2018 AUDREY AYOUB APRN Ot G47.30 SLEEP APNEA, UNSPECIFIED 08/02/2018 AUDREY AYOUB APRN Ot J44.9 CHRONIC OBSTRUCTIVE PULMONARY DISEASE, U 08/02/2018 AUDREY AYOUB APRN Ot Z01.818 ENCOUNTER FOR OTHER PREPROCEDURAL EXAMIN 08/06/2018 Carolina Barry M79.7 Fibromyalgia 08/13/2018 Carolina Barry M79.7 Fibromyalgia 08/17/2018 MATILDE ADAMS MD, Ot K21.9 GASTRO-ESOPHAGEAL REFLUX DISEASE WITHOUT 08/17/2018 MATILDE ADAMS MD Ot Z01.818 ENCOUNTER FOR OTHER PREPROCEDURAL EXAMIN 08/27/2018 AUDREY AYOUB APRN Ot G47.30 SLEEP APNEA, UNSPECIFIED 08/27/2018 AUDREY AYOUB APRN Ot J42 UNSPECIFIED CHRONIC BRONCHITIS 08/27/2018 AUDREY AYOUB APRN Ot J44.9 CHRONIC OBSTRUCTIVE PULMONARY DISEASE, U 08/27/2018 AUDREY AYOUB APRN Ot J45.909 UNSPECIFIED ASTHMA, UNCOMPLICATED 08/27/2018 AUDREY AYOUB APRN Ot K76.0 FATTY (CHANGE OF) LIVER, NOT ELSEWHERE C 08/27/2018 AUDREY AYOUB APRN Ot R16.2 HEPATOMEGALY WITH SPLENOMEGALY, NOT ELSE 08/27/2018 AUDREY AYOUB APRN Ot Z86.11 PERSONAL HISTORY OF TUBERCULOSIS 08/27/2018 WEN POOL DO, Ot E04.1 NONTOXIC SINGLE THYROID NODULE 08/27/2018 WEN POOL DO, Ot I26.99 OTHER PULMONARY EMBOLISM WITHOUT ACUTE C 08/27/2018 WEN POOL DO Ot K43.9 VENTRAL HERNIA WITHOUT OBSTRUCTION OR GA 08/27/2018 WEN POOL DO Ot K76.0 FATTY (CHANGE OF) LIVER, NOT ELSEWHERE C 08/27/2018 WEN POOL DO Ot R22.43 LOCALIZED SWELLING, MASS AND LUMP, LOWER 08/27/2018 AUDREY AYOUB IT MANAGER Ot J44.9 CHRONIC OBSTRUCTIVE PULMONARY DISEASE, U 08/27/2018 AUDREY AYOUB IT MANAGER Ot E04.1 NONTOXIC SINGLE THYROID NODULE 08/27/2018 AUDREY AYOUB IT MANAGER Ot F41.9 ANXIETY DISORDER, UNSPECIFIED 08/27/2018 AUDREY AYOUB IT MANAGER Ot I26.99 OTHER PULMONARY EMBOLISM WITHOUT ACUTE C 08/27/2018 AUDREY AYOUB IT MANAGER Ot J44.9 CHRONIC OBSTRUCTIVE PULMONARY DISEASE, U 08/27/2018 AUDREY AYOUB IT MANAGER Ot J98.4 OTHER DISORDERS OF LUNG 08/27/2018 AUDREY AYOUB IT MANAGER Ot I26.99 OTHER PULMONARY EMBOLISM WITHOUT ACUTE C 08/27/2018 AUDREY AYOUB IT MANAGER Ot J44.9 CHRONIC OBSTRUCTIVE PULMONARY DISEASE, U 08/27/2018 AUDREY AYOUB IT MANAGER Ot J98.4 OTHER DISORDERS OF LUNG 08/27/2018 AUDREY AYOUB IT MANAGER Ot R09.02 HYPOXEMIA 08/27/2018 AUDREY AYOUB IT MANAGER Ot J42 UNSPECIFIED CHRONIC BRONCHITIS 08/27/2018 AUDREY AYOUB IT MANAGER Ot J45.909 UNSPECIFIED ASTHMA, UNCOMPLICATED 08/27/2018 AUDREY AYOUB IT MANAGER Ot J98.4 OTHER DISORDERS OF LUNG 08/27/2018 AUDREY AYOUB IT MANAGER Ot J42 UNSPECIFIED CHRONIC BRONCHITIS 08/27/2018 AUDREY AYOUB IT MANAGER Ot J45.909 UNSPECIFIED ASTHMA, UNCOMPLICATED 08/27/2018 AUDREY AYOUB IT MANAGER Ot J98.4 OTHER DISORDERS OF LUNG 08/27/2018 AUDREY AYOUB IT MANAGER Ot R09.02 HYPOXEMIA 08/27/2018 AUDREY AYOUB IT MANAGER Ot R94.2 ABNORMAL RESULTS OF PULMONARY FUNCTION S 08/27/2018 AUDREY AYOUB IT MANAGER Ot E07.9 DISORDER OF THYROID, UNSPECIFIED 08/27/2018 AUDREY AYOUB IT MANAGER Ot F41.9 ANXIETY DISORDER, UNSPECIFIED 08/27/2018 AUDREY AYOUB IT MANAGER Ot G47.30 SLEEP APNEA, UNSPECIFIED 08/27/2018 AUDREY AYOUB IT MANAGER Ot J44.9 CHRONIC OBSTRUCTIVE PULMONARY DISEASE, U 08/27/2018 AUDREY AYOUB IT MANAGER Ot J45.909 UNSPECIFIED ASTHMA, UNCOMPLICATED 08/27/2018 AUDREY AYOUB IT MANAGER Ot J98.4 OTHER DISORDERS OF LUNG 08/27/2018 IESHA AYOUBINE Rosy IT MANAGER Ot R09.02 HYPOXEMIA 08/27/2018 AUDREY AYOUB IT MANAGER Ot R94.2 ABNORMAL RESULTS OF PULMONARY FUNCTION S 08/27/2018 MATILDE ADAMS MD Ot K21.9 GASTRO-ESOPHAGEAL REFLUX DISEASE WITHOUT 08/27/2018 MATILDE ADAMS MD Ot Z01.818 ENCOUNTER FOR OTHER PREPROCEDURAL EXAMIN 08/27/2018 AUDREY AYOUB IT MANAGER Ot G47.00 INSOMNIA, UNSPECIFIED 08/27/2018 AUDREY AYOUB IT MANAGER Ot G47.30 SLEEP APNEA, UNSPECIFIED 08/27/2018 AUDREY AYOUB IT MANAGER Ot J44.9 CHRONIC OBSTRUCTIVE PULMONARY DISEASE, U 08/27/2018 AUDREY AYOUB IT MANAGER Ot Z01.818 ENCOUNTER FOR OTHER PREPROCEDURAL EXAMIN 08/27/2018 AUDREY AYOUB IT MANAGER Ot E07.9 DISORDER OF THYROID, UNSPECIFIED 08/27/2018 AUDREY AYOUB IT MANAGER Ot F41.9 ANXIETY DISORDER, UNSPECIFIED 08/27/2018 AUDREY AYOUB IT MANAGER Ot G47.30 SLEEP APNEA, UNSPECIFIED 08/27/2018 AUDREY AYOUB IT MANAGER Ot J44.9 CHRONIC OBSTRUCTIVE PULMONARY DISEASE, U 08/27/2018 AUDREY AYOUB IT MANAGER Ot J45.909 UNSPECIFIED ASTHMA, UNCOMPLICATED 08/27/2018 AUDREY AYOUB IT MANAGER Ot J98.4 OTHER DISORDERS OF LUNG 08/27/2018 AUDREY AYOUB IT MANAGER Ot R09.02 HYPOXEMIA 08/27/2018 AUDREY AYOUB IT MANAGER Ot R94.2 ABNORMAL RESULTS OF PULMONARY FUNCTION S 08/27/2018 MATILDE ADAMS MD Ot E66.01 MORBID (SEVERE) OBESITY DUE TO EXCESS CA 08/27/2018 MATILDE ADAMS MD, Ot Z01.812 ENCOUNTER FOR PREPROCEDURAL LABORATORY E 08/27/2018 MATILDE ADAMS MD, Ot Z11.2 ENCOUNTER FOR SCREENING FOR OTHER BACTER 08/27/2018 MATILDE ADAMS MD, Ot Z68.42 BODY MASS INDEX (BMI) 45.0-49.9, ADULT 08/31/2018 MATILDE ADAMS MD, Ot D32.9 BENIGN NEOPLASM OF MENINGES, UNSPECIFIED 08/31/2018 MATILDE ADAMS MD, Ot E03.9 HYPOTHYROIDISM, UNSPECIFIED 08/31/2018 MATILDE ADAMS MD, Ot E66.01 MORBID (SEVERE) OBESITY DUE TO EXCESS CA 08/31/2018 MATILDE ADAMS MD, Ot E78.00 PURE HYPERCHOLESTEROLEMIA, UNSPECIFIED 08/31/2018 MATILDE ADAMS MD, Ot F32.9 MAJOR DEPRESSIVE DISORDER, SINGLE EPISOD 08/31/2018 MATILDE ADAMS MD, Ot F41.9 ANXIETY DISORDER, UNSPECIFIED 08/31/2018 MATILDE ADAMS MD, Ot G25.81 RESTLESS LEGS SYNDROME 08/31/2018 MATILDE ADAMS MD Ot G47.00 INSOMNIA, UNSPECIFIED 08/31/2018 MATILDE ADAMS MD, Ot G47.33 OBSTRUCTIVE SLEEP APNEA (ADULT) (PEDIATR 08/31/2018 MATILDE ADAMS MD, Ot G62.9 POLYNEUROPATHY, UNSPECIFIED 08/31/2018 MATILDE ADAMS MD Ot I10 ESSENTIAL (PRIMARY) HYPERTENSION 08/31/2018 MATILDE ADAMS MD, Ot J43.9 EMPHYSEMA, UNSPECIFIED 08/31/2018 MATILDE ADAMS MD, Ot J44.9 CHRONIC OBSTRUCTIVE PULMONARY DISEASE, U 08/31/2018 MATILDE ADAMS MD, Ot K21.9 GASTRO-ESOPHAGEAL REFLUX DISEASE WITHOUT 08/31/2018 MATILDE ADAMS MD, Ot K59.09 OTHER CONSTIPATION 08/31/2018 MATILDE ADAMS MD, Ot M16.0 BILATERAL PRIMARY OSTEOARTHRITIS OF HIP 08/31/2018 MATILDE ADAMS MD, Ot M17.0 BILATERAL PRIMARY OSTEOARTHRITIS OF KNEE 08/31/2018 MATILDE ADAMS MD, Ot M19.91 PRIMARY OSTEOARTHRITIS, UNSPECIFIED SITE 08/31/2018 MATILDE ADAMS MD, Ot M79.7 FIBROMYALGIA 08/31/2018 MATILDE ADAMS MD, Ot N31.9 NEUROMUSCULAR DYSFUNCTION OF BLADDER, UN 08/31/2018 MATILDE ADAMS MD, Ot R01.1 CARDIAC MURMUR, UNSPECIFIED 08/31/2018 MATILDE ADAMS MD, Ot R09.02 HYPOXEMIA 08/31/2018 MATILDE ADAMS MD, Ot Z68.42 BODY MASS INDEX (BMI) 45.0-49.9, ADULT 08/31/2018 MATILDE ADAMS MD, Ot Z80.1 FAMILY HISTORY OF MALIG NEOPLASM OF TRAC 08/31/2018 MATILDE ADAMS MD, Ot Z80.3 FAMILY HISTORY OF MALIGNANT NEOPLASM OF 08/31/2018 MATILDE ADAMS MD, Ot Z86.2 PRSNL HISTORY OF DIS OF THE BLD/BLD-FORM 08/31/2018 MATILDE ADAMS MD, Ot Z99.81 DEPENDENCE ON SUPPLEMENTAL OXYGEN 08/31/2018 AUDREY AYOUB APRN Ot G47.30 SLEEP APNEA, UNSPECIFIED 08/31/2018 AUDREY AYOUB APRN Ot J42 UNSPECIFIED CHRONIC BRONCHITIS 08/31/2018 AUDREY AYOUB APRN Ot J44.9 CHRONIC OBSTRUCTIVE PULMONARY DISEASE, U 08/31/2018 AUDREY AYOUB APRN Ot J45.909 UNSPECIFIED ASTHMA, UNCOMPLICATED 08/31/2018 AUDREY AYOUB APRN Ot K76.0 FATTY (CHANGE OF) LIVER, NOT ELSEWHERE C 08/31/2018 AUDREY AYOUB APRN Ot R16.2 HEPATOMEGALY WITH SPLENOMEGALY, NOT ELSE 08/31/2018 AUDREY AYOUB APRN Ot Z86.11 PERSONAL HISTORY OF TUBERCULOSIS 08/31/2018 WEN POOL DO, Ot E04.1 NONTOXIC SINGLE THYROID NODULE 08/31/2018 WEN POOL DO, Ot I26.99 OTHER PULMONARY EMBOLISM WITHOUT ACUTE C 08/31/2018 WEN POOL DO, Ot K43.9 VENTRAL HERNIA WITHOUT OBSTRUCTION OR GA 08/31/2018 WEN POOL DO Ot K76.0 FATTY (CHANGE OF) LIVER, NOT ELSEWHERE C 08/31/2018 WEN POOL DO, Ot R22.43 LOCALIZED SWELLING, MASS AND LUMP, LOWER 08/31/2018 AUDREY AYOUB IT MANAGER Ot J44.9 CHRONIC OBSTRUCTIVE PULMONARY DISEASE, U 08/31/2018 AUDREY AYOUB IT MANAGER Ot E04.1 NONTOXIC SINGLE THYROID NODULE 08/31/2018 AUDREY AYOUB IT MANAGER Ot F41.9 ANXIETY DISORDER, UNSPECIFIED 08/31/2018 AUDREY AYOUB IT MANAGER Ot I26.99 OTHER PULMONARY EMBOLISM WITHOUT ACUTE C 08/31/2018 AUDREY AYOUB IT MANAGER Ot J44.9 CHRONIC OBSTRUCTIVE PULMONARY DISEASE, U 08/31/2018 IESHA AYOUBINE Rosy IT MANAGER Ot J98.4 OTHER DISORDERS OF LUNG 08/31/2018 AUDREY AYOUB IT MANAGER Ot I26.99 OTHER PULMONARY EMBOLISM WITHOUT ACUTE C 08/31/2018 AUDREY AYOUB IT MANAGER Ot J44.9 CHRONIC OBSTRUCTIVE PULMONARY DISEASE, U 08/31/2018 AUDREY AYOUB IT MANAGER Ot J98.4 OTHER DISORDERS OF LUNG 08/31/2018 AUDREY AYOUB IT MANAGER Ot R09.02 HYPOXEMIA 08/31/2018 AUDREY AYOUB IT MANAGER Ot J42 UNSPECIFIED CHRONIC BRONCHITIS 08/31/2018 AUDREY AYOUB IT MANAGER Ot J45.909 UNSPECIFIED ASTHMA, UNCOMPLICATED 08/31/2018 AUDREY AYOUB IT MANAGER Ot J98.4 OTHER DISORDERS OF LUNG 08/31/2018 AUDREY AYOUB IT MANAGER Ot J42 UNSPECIFIED CHRONIC BRONCHITIS 08/31/2018 AUDREY AYOUB IT MANAGER Ot J45.909 UNSPECIFIED ASTHMA, UNCOMPLICATED 08/31/2018 AUDREY AYOUB IT MANAGER Ot J98.4 OTHER DISORDERS OF LUNG 08/31/2018 AUDREY AYOUB IT MANAGER Ot R09.02 HYPOXEMIA 08/31/2018 AUDREY AYOUB IT MANAGER Ot R94.2 ABNORMAL RESULTS OF PULMONARY FUNCTION S 08/31/2018 AUDREY AYOUB IT MANAGER Ot E07.9 DISORDER OF THYROID, UNSPECIFIED 08/31/2018 AUDREY AYOUB IT MANAGER Ot F41.9 ANXIETY DISORDER, UNSPECIFIED 08/31/2018 AUDREY AYOUB IT MANAGER Ot G47.30 SLEEP APNEA, UNSPECIFIED 08/31/2018 AUDREY AYOUB IT MANAGER Ot J44.9 CHRONIC OBSTRUCTIVE PULMONARY DISEASE, U 08/31/2018 AUDREY AYOUB IT MANAGER Ot J45.909 UNSPECIFIED ASTHMA, UNCOMPLICATED 08/31/2018 AUDREY AYOUB IT MANAGER Ot J98.4 OTHER DISORDERS OF LUNG 08/31/2018 AUDREY AYOUB IT MANAGER Ot R09.02 HYPOXEMIA 08/31/2018 AUDREY AYOUB IT MANAGER Ot R94.2 ABNORMAL RESULTS OF PULMONARY FUNCTION S 08/31/2018 MATILDE ADAMS MD Ot K21.9 GASTRO-ESOPHAGEAL REFLUX DISEASE WITHOUT 08/31/2018 MATILDE ADAMS MD Ot Z01.818 ENCOUNTER FOR OTHER PREPROCEDURAL EXAMIN 08/31/2018 AUDREY AYOUB IT MANAGER Ot G47.00 INSOMNIA, UNSPECIFIED 08/31/2018 AUDREY AYOUB IT MANAGER Ot G47.30 SLEEP APNEA, UNSPECIFIED 08/31/2018 AUDREY AYOUB IT MANAGER Ot J44.9 CHRONIC OBSTRUCTIVE PULMONARY DISEASE, U 08/31/2018 AUDREY AYOUB APRN Ot Z01.818 ENCOUNTER FOR OTHER PREPROCEDURAL EXAMIN 09/01/2018 AUDREY AYOUB IT MANAGER Ot G47.30 SLEEP APNEA, UNSPECIFIED 09/01/2018 AUDREY AYOUB IT MANAGER Ot J42 UNSPECIFIED CHRONIC BRONCHITIS 09/01/2018 AUDREY AYOUB IT MANAGER Ot J44.9 CHRONIC OBSTRUCTIVE PULMONARY DISEASE, U 09/01/2018 AUDREY AYOUB IT MANAGER Ot J45.909 UNSPECIFIED ASTHMA, UNCOMPLICATED 09/01/2018 AUDREY AYOUB IT MANAGER Ot K76.0 FATTY (CHANGE OF) LIVER, NOT ELSEWHERE C 09/01/2018 AUDREY AYOUB IT MANAGER Ot R16.2 HEPATOMEGALY WITH SPLENOMEGALY, NOT ELSE 09/01/2018 AUDREY AYOUB IT MANAGER Ot Z86.11 PERSONAL HISTORY OF TUBERCULOSIS 09/01/2018 WEN POOL DO Ot E04.1 NONTOXIC SINGLE THYROID NODULE 09/01/2018 WEN POOL DO, Ot I26.99 OTHER PULMONARY EMBOLISM WITHOUT ACUTE C 09/01/2018 WEN POOL DO, Ot K43.9 VENTRAL HERNIA WITHOUT OBSTRUCTION OR GA 09/01/2018 WEN POOL DO, Ot K76.0 FATTY (CHANGE OF) LIVER, NOT ELSEWHERE C 09/01/2018 WEN POOL DO Ot R22.43 LOCALIZED SWELLING, MASS AND LUMP, LOWER 09/01/2018 MEGAAUDRYE MAGANA IT MANAGER Ot J44.9 CHRONIC OBSTRUCTIVE PULMONARY DISEASE, U 09/01/2018 AUDREY AYOUB IT MANAGER Ot E04.1 NONTOXIC SINGLE THYROID NODULE 09/01/2018 AUDREY AYOUB IT MANAGER Ot F41.9 ANXIETY DISORDER, UNSPECIFIED 09/01/2018 AUDREY AYOUB IT MANAGER Ot I26.99 OTHER PULMONARY EMBOLISM WITHOUT ACUTE C 09/01/2018 AUDREY AYOUB IT MANAGER Ot J44.9 CHRONIC OBSTRUCTIVE PULMONARY DISEASE, U 09/01/2018 AUDREY AYOUB IT MANAGER Ot J98.4 OTHER DISORDERS OF LUNG 09/01/2018 AURDEY AYOUB IT MANAGER Ot I26.99 OTHER PULMONARY EMBOLISM WITHOUT ACUTE C 09/01/2018 AUDREY AYOUB IT MANAGER Ot J44.9 CHRONIC OBSTRUCTIVE PULMONARY DISEASE, U 09/01/2018 AUDREY AYOUB IT MANAGER Ot J98.4 OTHER DISORDERS OF LUNG 09/01/2018 AUDREY AYOUB IT MANAGER Ot R09.02 HYPOXEMIA 09/01/2018 AUDREY AYOUB IT MANAGER Ot J42 UNSPECIFIED CHRONIC BRONCHITIS 09/01/2018 AUDREY AYOUB IT MANAGER Ot J45.909 UNSPECIFIED ASTHMA, UNCOMPLICATED 09/01/2018 AUDREY AYOUB IT MANAGER Ot J98.4 OTHER DISORDERS OF LUNG 09/01/2018 AUDREY AYOUB IT MANAGER Ot J42 UNSPECIFIED CHRONIC BRONCHITIS 09/01/2018 AUDREY AYOUB IT MANAGER Ot J45.909 UNSPECIFIED ASTHMA, UNCOMPLICATED 09/01/2018 AUDREY AYOUB IT MANAGER Ot J98.4 OTHER DISORDERS OF LUNG 09/01/2018 AUDREY AYOUB IT MANAGER Ot R09.02 HYPOXEMIA 09/01/2018 AUDREY AYOUB IT MANAGER Ot R94.2 ABNORMAL RESULTS OF PULMONARY FUNCTION S 09/01/2018 AUDREY AYOUB IT MANAGER Ot E07.9 DISORDER OF THYROID, UNSPECIFIED 09/01/2018 AUDREY AYOUB IT MANAGER Ot F41.9 ANXIETY DISORDER, UNSPECIFIED 09/01/2018 AUDREY AYOUB IT MANAGER Ot G47.30 SLEEP APNEA, UNSPECIFIED 09/01/2018 AUDREY AYOUB APRN Ot J44.9 CHRONIC OBSTRUCTIVE PULMONARY DISEASE, U 09/01/2018 AUDREY AYOUB APRN Ot J45.909 UNSPECIFIED ASTHMA, UNCOMPLICATED 09/01/2018 AUDREY AYOUB APRN Ot J98.4 OTHER DISORDERS OF LUNG 09/01/2018 AUDREY AYOUB APRN Ot R09.02 HYPOXEMIA 09/01/2018 AUDREY AYOUB APRN Ot R94.2 ABNORMAL RESULTS OF PULMONARY FUNCTION S 09/01/2018 MATILDE ADAMS MD Ot K21.9 GASTRO-ESOPHAGEAL REFLUX DISEASE WITHOUT 09/01/2018 MATILDE ADAMS MD Ot Z01.818 ENCOUNTER FOR OTHER PREPROCEDURAL EXAMIN 09/01/2018 AUDREY AYOUB APRN Ot G47.00 INSOMNIA, UNSPECIFIED 09/01/2018 AUDREY AYOUB APRN Ot G47.30 SLEEP APNEA, UNSPECIFIED 09/01/2018 AUDREY AYOUB APRN Ot J44.9 CHRONIC OBSTRUCTIVE PULMONARY DISEASE, U 09/01/2018 AUDREY AYOUB APRN Ot Z01.818 ENCOUNTER FOR OTHER PREPROCEDURAL EXAMIN 09/03/2018 DEMETRIUS LOPEZ MD Ot E86.0 DEHYDRATION 09/03/2018 DEMETRIUS LOPEZ MD Ot F32.9 MAJOR DEPRESSIVE DISORDER, SINGLE EPISOD 09/03/2018 DEMETRIUS LOPEZ MD Ot F41.9 ANXIETY DISORDER, UNSPECIFIED 09/03/2018 DEMETRIUS LOPEZ MD Ot F64.9 GENDER IDENTITY DISORDER, UNSPECIFIED 09/03/2018 DEMETRIUS LOPEZ MD Ot G47.30 SLEEP APNEA, UNSPECIFIED 09/03/2018 DEMETRIUS LOPEZ MD Ot G89.18 OTHER ACUTE POSTPROCEDURAL PAIN 09/03/2018 DEMETRIUS LOPEZ MD Ot J44.9 CHRONIC OBSTRUCTIVE PULMONARY DISEASE, U 09/03/2018 DEMETRIUS LOPEZ MD Ot K21.9 GASTRO-ESOPHAGEAL REFLUX DISEASE WITHOUT 09/03/2018 DEMETRIUS LOPEZ MD Ot R10.12 LEFT UPPER QUADRANT PAIN 09/03/2018 DEMETRIUS LOPEZ MD Ot R50.9 FEVER, UNSPECIFIED 09/03/2018 DEMETRIUS LOPEZ MD Ot Z79.51 LONGTERM (CURRENT) USE OF INHALED STERO 09/03/2018 DEMETRIUS LOPEZ MD Ot Z86.711 PERSONAL HISTORY OF PULMONARY EMBOLISM 09/03/2018 DEMETRIUS LOPEZ MD, Ot Z86.79 PERSONAL HISTORY OF OTHER DISEASES OF TH 09/03/2018 DEMETRIUS LOPEZ MD, Ot Z87.19 PERSONAL HISTORY OF OTHER DISEASES OF TH 09/03/2018 DEMETRIUS LOPEZ MD, Ot Z88.5 ALLERGY STATUS TO NARCOTIC AGENT STATUS 09/03/2018 DEMETRIUS LOPEZ MD, Ot Z88.8 ALLERGY STATUS TO OTH DRUG/MEDS/BIOL SUB 09/03/2018 DEMETRIUS LOPEZ MD, Ot Z90.710 ACQUIRED ABSENCE OF BOTH CERVIX AND UTER 09/03/2018 DEMETRIUS LOPEZ MD Ot Z98.84 BARIATRIC SURGERY STATUS 09/03/2018 DEMETRIUS LOPEZ MD Ot Z98.890 OTHER SPECIFIED POSTPROCEDURAL STATES 09/03/2018 DEMETRIUS LOPEZ MD Ot E86.0 DEHYDRATION 09/03/2018 DEMETRIUS LOPEZ MD, Ot F32.9 MAJOR DEPRESSIVE DISORDER, SINGLE EPISOD 09/03/2018 DEMETRIUS LOPEZ MD, Ot F41.9 ANXIETY DISORDER, UNSPECIFIED 09/03/2018 DEMETRIUS LOPEZ MD Ot F64.9 GENDER IDENTITY DISORDER, UNSPECIFIED 09/03/2018 DEMETRIUS LOPEZ MD Ot G47.30 SLEEP APNEA, UNSPECIFIED 09/03/2018 DEMETRIUS LOPEZ MD Ot G89.18 OTHER ACUTE POSTPROCEDURAL PAIN 09/03/2018 DEMETRIUS OLPEZ MD, Ot J44.9 CHRONIC OBSTRUCTIVE PULMONARY DISEASE, U 09/03/2018 DEMETRIUS LOPEZ MD, Ot K21.9 GASTRO-ESOPHAGEAL REFLUX DISEASE WITHOUT 09/03/2018 DEMETRIUS LOPEZ MD Ot R10.12 LEFT UPPER QUADRANT PAIN 09/03/2018 DEMETRIUS LOPEZ MD Ot R50.9 FEVER, UNSPECIFIED 09/03/2018 DEMETRIUS LOPEZ MD Ot 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 09/03/2018 DEMETRIUS LOPEZ MD Ot Z86.711 PERSONAL HISTORY OF PULMONARY EMBOLISM 09/03/2018 DEMETRIUS LOPEZ MD Ot Z86.79 PERSONAL HISTORY OF OTHER DISEASES OF TH 09/03/2018 DEMETRIUS LOPEZ MD Ot Z87.19 PERSONAL HISTORY OF OTHER DISEASES OF TH 09/03/2018 DEMETRIUS LOPEZ MD, Ot Z88.5 ALLERGY STATUS TO NARCOTIC AGENT STATUS 09/03/2018 DEMETRIUS LOPEZ MD, Ot Z88.8 ALLERGY STATUS TO OTH DRUG/MEDS/BIOL SUB 09/03/2018 DEMETRIUS LOPEZ MD Ot Z90.710 ACQUIRED ABSENCE OF BOTH CERVIX AND UTER 09/03/2018 DEMETRIUS LOPEZ MD Ot Z98.84 BARIATRIC SURGERY STATUS 09/03/2018 DEMETRIUS LOPEZ MD, Ot Z98.890 OTHER SPECIFIED POSTPROCEDURAL STATES 09/04/2018 DEMETRIUS LOPEZ MD Ot E86.0 DEHYDRATION 09/04/2018 DEMETRIUS LOPEZ MD Ot F32.9 MAJOR DEPRESSIVE DISORDER, SINGLE EPISOD 09/04/2018 DEMETRIUS LOPEZ MD, Ot F41.9 ANXIETY DISORDER, UNSPECIFIED 09/04/2018 DEMETRIUS LOPEZ MD Ot F64.9 GENDER IDENTITY DISORDER, UNSPECIFIED 09/04/2018 DEMETRIUS LOPEZ MD Ot G47.30 SLEEP APNEA, UNSPECIFIED 09/04/2018 DEMETRIUS LOPEZ MD Ot G89.18 OTHER ACUTE POSTPROCEDURAL PAIN 09/04/2018 DEMETRIUS LOPEZ MD Ot J44.9 CHRONIC OBSTRUCTIVE PULMONARY DISEASE, U 09/04/2018 DEMETRIUS LOPEZ MD Ot K21.9 GASTRO-ESOPHAGEAL REFLUX DISEASE WITHOUT 09/04/2018 DEMETRIUS LOPEZ MD Ot R10.12 LEFT UPPER QUADRANT PAIN 09/04/2018 DEMETRIUS LOPEZ MD Ot R50.9 FEVER, UNSPECIFIED 09/04/2018 DEMETRIUS LOPEZ MD Ot 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 STERO 09/04/2018 DEMETRIUS LOPEZ MD Ot Z86.711 PERSONAL HISTORY OF PULMONARY EMBOLISM 09/04/2018 DEMETRIUS LOPEZ MD Ot Z86.79 PERSONAL HISTORY OF OTHER DISEASES OF 09/04/2018 DEMETRIUS LOPEZ MD Ot Z87.19 PERSONAL HISTORY OF OTHER DISEASES OF TH 09/04/2018 DEMETRIUS LOPEZ MD Ot Z88.5 ALLERGY STATUS TO NARCOTIC AGENT STATUS 09/04/2018 DEMETRIUS LOPEZ MD, Ot Z88.8 ALLERGY STATUS TO OTH DRUG/MEDS/BIOL SUB 09/04/2018 DEMETRIUS LOPEZ MD Ot Z90.710 ACQUIRED ABSENCE OF BOTH CERVIX AND UTER 09/04/2018 DEMETRIUS LOPEZ MD Ot Z98.84 BARIATRIC SURGERY STATUS 09/04/2018 DEMETRIUS LOPEZ MD Ot Z98.890 OTHER SPECIFIED POSTPROCEDURAL STATES 09/06/2018 DEMETRIUS LOPEZ MD Ot E86.0 DEHYDRATION 09/06/2018 DEMETRIUS LOPEZ MD Ot F32.9 MAJOR DEPRESSIVE DISORDER, SINGLE EPISOD 09/06/2018 DEMETRIUS LOPEZ MD, Ot F41.9 ANXIETY DISORDER, UNSPECIFIED 09/06/2018 DEMETRIUS LOPEZ MD Ot F64.9 GENDER IDENTITY DISORDER, UNSPECIFIED 09/06/2018 DEMETRIUS LOPEZ MD Ot G47.30 SLEEP APNEA, UNSPECIFIED 09/06/2018 DEMETRIUS LOPEZ MD Ot G89.18 OTHER ACUTE POSTPROCEDURAL PAIN 09/06/2018 DEMETRIUS LOPEZ MD Ot J44.9 CHRONIC OBSTRUCTIVE PULMONARY DISEASE, U 09/06/2018 DEMETRIUS LOPEZ MD Ot K21.9 GASTRO-ESOPHAGEAL REFLUX DISEASE WITHOUT 09/06/2018 DEMETRIUS LOPEZ MD Ot R10.12 LEFT UPPER QUADRANT PAIN 09/06/2018 DEMETRIUS LOPEZ MD Ot R50.9 FEVER, UNSPECIFIED 09/06/2018 DEMETRIUS LOPEZ MD Ot Z79.51 LONGTERM (CURRENT) USE OF INHALED STERO 09/06/2018 DEMETRIUS LOPEZ MD Ot Z86.711 PERSONAL HISTORY OF PULMONARY EMBOLISM 09/06/2018 DEMETRIUS LOPEZ MD Ot Z86.79 PERSONAL HISTORY OF OTHER DISEASES OF TH 09/06/2018 DEMETRIUS LOPEZ MD Ot Z87.19 PERSONAL HISTORY OF OTHER DISEASES OF 09/06/2018 DEMETRIUS LOPEZ MD Ot Z88.5 ALLERGY STATUS TO NARCOTIC AGENT STATUS 09/06/2018 DEMETRIUS LOPEZ MD, Ot Z88.8 ALLERGY STATUS TO OTH DRUG/MEDS/BIOL SUB 09/06/2018 DEMETRIUS LOPEZ MD, Ot Z90.710 ACQUIRED ABSENCE OF BOTH CERVIX AND UTER 09/06/2018 DEMETRIUS LOPEZ MD Ot Z98.84 BARIATRIC SURGERY STATUS 09/06/2018 DEMETRIUS LOPEZ MD, Ot Z98.890 OTHER SPECIFIED POSTPROCEDURAL STATES Procedures Code Description [place] [address] OFFICE/OUTPATIENT VISIT NEW 04/03/2018 14358 OFFICE/OUTPATIENT VISIT EST 08/06/2018 [id number] EXCISION OF STOMACH, PERCUTANEOUS ENDOSC 08/30/2018 Results Test Result Range Arterial blood gas [...] Vit. B1, Whole Blood 137.0 nmol/L 66.5-200.0 Methicillin resistant Staphylococcus aureus (MRSA) screening culture - 13:05 MRSA SCREEN RESULT MRSA ISOLATED NR Complete blood count (CBC) with automated white blood cell (WBC) differential - 08/27/18 13:10 Blood leukocytes automated count (number/volume) 7.7 10*3/uL 4.3-11.0 Blood erythrocytes automated count (number/volume) 5.32 10*6/uL 4.35-5.85 Venous blood hemoglobin measurement (mass/volume) 14.2 g/dL 11.5-16.0 Blood hematocrit (volume fraction) 44 % 35-52 Automated erythrocyte mean corpuscular volume 83 [foz_us] 80-99 Automated erythrocyte mean corpuscular hemoglobin (mass per erythrocyte) 27 pg 25-34 Automated erythrocyte mean corpuscular hemoglobin concentration measurement ( mass/volume) 32 g/dL 32-36 Automated erythrocyte distribution width ratio 13.8 % 10.0-14.5 Automated blood platelet count (count/volume) 286 10*3/uL 130-400 Automated blood platelet mean volume measurement 11.1 [foz_us] 7.4-10.4 Automated blood neutrophils/100 leukocytes 70 % 42-75 Automated blood lymphocytes/100 leukocytes 21 % 12-44 Blood monocytes/100 leukocytes 7 % 0-12 Automated blood eosinophils/100 leukocytes 2 % 0-10 Automated blood basophils/100 leukocytes 0 % 0-10 Blood neutrophils automated count (number/volume) 5.4 10*3 1.8-7.8 Blood lymphocytes automated count (number/volume) 1.6 10*3 1.0-4.0 Blood monocytes automated count (number/volume) 0.5 10*3 0.0-1.0 Automated eosinophil count 0.2 10*3/uL 0.0-0.3 Automated blood basophil count (count/volume) 0.0 10*3/uL 0.0-0.1 Automated blood complete blood count (hemogram) panel - 08/31/18 04:53 Blood leukocytes automated count (number/volume) 8.9 10*3/uL 4.3-11.0 Blood erythrocytes automated count (number/volume) 4.50 10*6/uL 4.35-5.85 Venous blood hemoglobin measurement (mass/volume) 11.9 g/dL 11.5-16.0 Blood hematocrit (volume fraction) 38 % 35-52 Automated erythrocyte mean corpuscular volume 84 [foz_us] 80-99 Automated erythrocyte mean corpuscular hemoglobin (mass per erythrocyte) 26 pg 25-34 Automated erythrocyte mean corpuscular hemoglobin concentration measurement ( mass/volume) 32 g/dL 32-36 Automated erythrocyte distribution width ratio 13.6 % 10.0-14.5 Automated blood platelet count (count/volume) 209 10*3/uL 130-400 Automated blood platelet mean volume measurement 11.0 [foz_us] 7.4-10.4 Comprehensive metabolic panel - 08/31/18 09:40 Serum or plasma sodium measurement (moles/volume) 140 mmol/L 135-145 Serum or plasma potassium measurement (moles/volume) 4.1 mmol/L 3.6-5.0 Serum or plasma chloride measurement (moles/volume) 104 mmol/L 98-107 Carbon dioxide 26 mmol/L 21-32 Serum or plasma anion gap determination (moles/volume) 10 mmol/L 5-14 Serum or plasma urea nitrogen measurement (mass/volume) 9 mg/dL 7-18 Serum or plasma creatinine measurement (mass/volume) 0.68 mg/dL 0.60-1.30 Serum or plasma urea nitrogen/creatinine mass ratio 13 NRG Serum or plasma creatinine measurement with calculation of estimated glomerular filtration rate > NRG Serum or plasma glucose measurement (mass/volume) 99 mg/dL 70-105 Serum or plasma calcium measurement (mass/volume) 9.2 mg/dL 8.5-10.1 Serum or plasma total bilirubin measurement (mass/volume) 0.4 mg/dL 0.1-1.0 Serum or plasma alkaline phosphatase measurement (enzymatic activity/volume) 87 U/L 40-136 Serum or plasma aspartate aminotransferase measurement (enzymatic activity/ volume) 41 U/L 5-34 Serum or plasma alanine aminotransferase measurement (enzymatic activity/volume ) 49 U/L 0-55 Serum or plasma protein measurement (mass/volume) 6.5 g/dL 6.4-8.2 Serum or plasma albumin measurement (mass/volume) 3.8 g/dL 3.2-4.5 CALCIUM CORRECTED 9.4 mg/dL 8.5-10.1 Influenza virus A and B antigen detection - 08/31/18 23:45 FLU RESULT NEGATIVE FOR INFLUENZA A AND B ANTIGENS BY [facility] Bacterial blood culture - 09/01/18 00:13 Bacterial blood culture [facility] Complete blood count (CBC) with automated white blood cell (WBC) differential - 09/01/18 00:14 Blood leukocytes automated count (number/volume) 13.8 10*3/uL 4.3-11.0 Blood erythrocytes automated count (number/volume) 4.53 10*6/uL 4.35-5.85 Venous blood hemoglobin measurement (mass/volume) 11.9 g/dL 11.5-16.0 Blood hematocrit (volume fraction) 38 % 35-52 Automated erythrocyte mean corpuscular volume 84 [foz_us] 80-99 Automated erythrocyte mean corpuscular hemoglobin (mass per erythrocyte) 26 pg 25-34 Automated erythrocyte mean corpuscular hemoglobin concentration measurement ( mass/volume) 31 g/dL 32-36 Automated erythrocyte distribution width ratio 13.7 % 10.0-14.5 Automated blood platelet count (count/volume) 208 10*3/uL 130-400 Automated blood platelet mean volume measurement 11.0 [foz_us] 7.4-10.4 Automated blood neutrophils/100 leukocytes 81 % 42-75 Automated blood lymphocytes/100 leukocytes 10 % 12-44 Blood monocytes/100 leukocytes 9 % 0-12 Automated blood eosinophils/100 leukocytes 0 % 0-10 Automated blood basophils/100 leukocytes 0 % 0-10 Blood neutrophils automated count (number/volume) 11.2 10*3 1.8-7.8 Blood lymphocytes automated count (number/volume) 1.4 10*3 1.0-4.0 Blood monocytes automated count (number/volume) 1.2 10*3 0.0-1.0 Automated eosinophil count 0.0 10*3/uL 0.0-0.3 Automated blood basophil count (count/volume) 0.0 10*3/uL 0.0-0.1 Blood lactic acid measurement (moles/volume) - 09/01/18 00:14 Blood lactic acid measurement (moles/volume) 0.70 mmol/L 0.50-2.00 PT panel in platelet poor plasma by coagulation assay - 09/01/18 00:14 Prothrombin time (PT) in platelet poor plasma by coagulation assay 13.8 s 12.2-14.7 INR in platelet poor plasma or blood by coagulation assay 1.1 0.8-1.4 Activated partial thromboplastin time (aPTT) in platelet poor plasma bycoagulation assay - 09/01/18 00:14 Activated partial thromboplastin time (aPTT) in platelet poor plasma bycoagulation assay 34 s 24-35 Comprehensive metabolic panel - 09/01/18 00:14 Serum or plasma sodium measurement (moles/volume) 140 mmol/L 135-145 Serum or plasma potassium measurement (moles/volume) 4.2 mmol/L 3.6-5.0 Serum or plasma chloride measurement (moles/volume) 105 mmol/L 98-107 Carbon dioxide 24 mmol/L 21-32 Serum or plasma anion gap determination (moles/volume) 11 mmol/L 5-14 Serum or plasma urea nitrogen measurement (mass/volume) 7 mg/dL 7-18 Serum or plasma creatinine measurement (mass/volume) 0.70 mg/dL 0.60-1.30 Serum or plasma urea nitrogen/creatinine mass ratio 10 NRG Serum or plasma creatinine measurement with calculation of estimated glomerular filtration rate > NRG Serum or plasma glucose measurement (mass/volume) 135 mg/dL 70-105 Serum or plasma calcium measurement (mass/volume) 9.4 mg/dL 8.5-10.1 Serum or plasma total bilirubin measurement (mass/volume) 0.7 mg/dL 0.1-1.0 Serum or plasma alkaline phosphatase measurement (enzymatic activity/volume) 93 U/L 40-136 Serum or plasma aspartate aminotransferase measurement (enzymatic activity/ volume) 28 U/L 5-34 Serum or plasma alanine aminotransferase measurement (enzymatic activity/volume ) 39 U/L 0-55 Serum or plasma protein measurement (mass/volume) 6.5 g/dL 6.4-8.2 Serum or plasma albumin measurement (mass/volume) 3.8 g/dL 3.2-4.5 CALCIUM CORRECTED 9.6 mg/dL 8.5-10.1 Complete urinalysis with reflex to culture - 09/01/18 00:29 Urine color determination YELLOW NRG Urine clarity determination CLEAR NRG Urine pH measurement by test strip 6 5-9 Specific gravity of urine by test strip 1.015 1.016- 1.022 Urine protein assay by test strip, semi-quantitative 1+ NEGATIVE Urine glucose detection by automated test strip NEGATIVE NEGATIVE Erythrocytes detection in urine sediment by light microscopy NEGATIVE NEGATIVE Urine ketones detection by automated test strip 4+ NEGATIVE Urine nitrite detection by test strip NEGATIVE NEGATIVE Urine total bilirubin detection by test strip NEGATIVE NEGATIVE Urine urobilinogen measurement by automated test strip (mass/volume) 1 mg/dL NORMAL Urine leukocyte esterase detection by dipstick 1+ NEGATIVE Automated urine sediment erythrocyte count by microscopy (number/high power field) NONE NRG Automated urine sediment leukocyte count by microscopy (number/high power field ) [HPF] NRG Bacteria detection in urine sediment by light microscopy TRACE NRG Squamous epithelial cells detection in urine sediment by light microscopy 5-10 NRG Crystals detection in urine sediment by light microscopy NONE NRG Casts detection in urine sediment by light microscopy NONE NRG Mucus detection in urine sediment by light microscopy NEGATIVE NRG Complete urinalysis with reflex to culture NO NRG Bacterial urine culture - 09/01/18 00:29 Bacterial urine culture NG NRG Encounters ACCT No. Visit Date/Time Discharge Status Pt. Type Provider Facility Loc./Unit Complaint [id number] 08/13/2018 13:49:27 08/13/2018 23:59:59 CLS Outpatient Aurora Martin [id number] 08/12/2018 13:55:43 08/12/2018 23:59:59 CLS Outpatient Aurora Martin [id number] 07/20/2018 16:46:18 07/20/2018 23:59:59 CLS Outpatient FrankSean [id number] 04/11/2018 13:52:57 04/11/2018 23:59:59 CLS Outpatient Fredis Rico [id number] 03/29/2018 15:19:47 03/29/2018 23:59:59 CLS Outpatient FrankSean [id number] 03/09/2018 09:51:30 03/09/2018 23:59:59 CLS Outpatient Sean Marie [id number] 02/28/2018 08:52:38 02/28/2018 23:59:59 CLS Outpatient Fredis Rico [id number] 01/29/2018 17:36:47 01/29/2018 23:59:59 CLS Outpatient ChristalLaine huggins [id number] 01/19/2018 11:26:07 01/19/2018 23:59:59 CLS Outpatient Hetlinger, Sean [id number] 10/27/2017 10:00:45 10/27/2017 23:59:59 CLS Outpatient Fredis Rico [id number] 10/23/2017 09:29:56 10/23/2017 23:59:59 CLS Outpatient HetlingerSean [id number] 09/20/2017 12:18:44 09/20/2017 23:59:59 CLS Outpatient Destinee Ricoitya [id number] 08/31/2017 15:49:06 08/31/2017 23:59:59 CLS Outpatient Destinee Ricoitya [id number] 08/09/2017 10:08:51 08/09/2017 23:59:59 CLS Outpatient HetlingerSean [id number] 07/07/2017 09:35:41 07/07/2017 23:59:59 CLS Outpatient Hetlinger, Sean [id number] 06/16/2017 11:07:00 06/16/2017 23:59:59 CLS Outpatient HetlingerSean [id number] 05/15/2017 09:46:10 05/15/2017 23:59:59 CLS Outpatient Hetlinger, Sean [id number] 04/23/2017 14:14:47 04/23/2017 23:59:59 CLS Outpatient Aurora Martin [id number] 04/14/2017 09:19:24 04/14/2017 23:59:59 CLS Outpatient HetlingerSean [id number] 03/20/2017 15:22:17 03/20/2017 23:59:59 CLS Outpatient HetlingerSean [id number] 03/03/2017 17:59:33 03/03/2017 23:59:59 CLS Outpatient Aurora Martin [id number] 01/09/2017 14:30:18 01/09/2017 23:59:59 CLS Outpatient Hetlinger, Sean [id number] 01/02/2017 14:28:33 01/02/2017 23:59:59 CLS Outpatient Hetlinger, Sean [id number] 12/27/2016 15:56:43 12/27/2016 23:59:59 CLS Outpatient HetlingerSean [id number] 2016 09:39:41 2016 23:59:59 CLS Outpatient Hetlinger, Sean [id number] 09/19/2016 11:06:13 09/19/2016 23:59:59 CLS Outpatient Hetlinger, Sean [id number] 07/01/2016 09:18:55 07/01/2016 23:59:59 CLS Outpatient Hetlinger, Sean [id number] 06/17/2016 11:21:34 06/17/2016 23:59:59 CLS Outpatient Hetlinger, Sean [id number] 06/02/2016 11:45:43 06/02/2016 23:59:59 CLS Outpatient Michelle Greco [id number] 05/20/2016 10:07:14 05/20/2016 23:59:59 CLS Outpatient Hetlinger, Sean [id number] 04/01/2016 10:43:20 04/01/2016 23:59:59 CLS Outpatient Hetlinger, Sean [id number] 12/09/2015 18:02:06 12/09/2015 23:59:59 CLS Outpatient Munoz, Miguel A [id number] 11/17/2015 15:42:52 11/17/2015 23:59:59 CLS Outpatient Hetlinger, Sean [id number] 11/03/2015 09:17:08 11/03/2015 23:59:59 CLS Outpatient HetlingerSean [id number] 10/09/2015 09:43:07 10/09/2015 23:59:59 CLS Outpatient HetlingerSean [id number] 08/31/2015 15:29:16 08/31/2015 23:59:59 CLS Outpatient HetlingerSean [id number] 08/25/2015 11:01:57 08/25/2015 23:59:59 CLS Outpatient HetlingerSean [id number] 06/05/2015 10:21:13 06/05/2015 23:59:59 CLS Outpatient HetlingerSean [id number] 06/01/2015 07:40:23 06/01/2015 23:59:59 CLS Outpatient Michelle Greco [id number] 05/11/2015 22:33:28 05/11/2015 23:59:59 CLS Outpatient Amaris Gentile [id number] 05/11/2015 22:31:59 05/11/2015 23:59:59 CLS Outpatient Kiarra Ramos [id number] 05/11/2015 22:07:32 05/11/2015 23:59:59 CLS Outpatient Hetlinger Sean [id number] 05/11/2015 22:03:31 05/11/2015 23:59:59 CLS Outpatient HetlingerSean [id number] 05/11/2015 21:59:14 05/11/2015 23:59:59 CLS Outpatient HetlingerSean [id number] 05/11/2015 21:28:40 05/11/2015 23:59:59 CLS Outpatient HetlingSean magana [id number] 01/26/2015 16:10:40 01/26/2015 23:59:59 CLS Outpatient Leena Haddad [id number] 01/12/2015 09:52:09 01/12/2015 23:59:59 CLS Outpatient HetlingSean magana [id number] 10/22/2014 14:36:19 10/22/2014 23:59:59 CLS Outpatient MunozMiguel A darling [id number] 08/22/2014 09:31:15 08/22/2014 23:59:59 CLS Outpatient DaniellalingSean magana [id number] 08/01/2014 10:40:38 08/01/2014 23:59:59 CLS Outpatient HetlingerSean [id number] 06/09/2014 15:49:13 06/09/2014 23:59:59 CLS Outpatient Kiarra Ramos [id number] 03/14/2014 09:18:53 03/14/2014 23:59:59 CLS Outpatient Leena Haddad [id number] 02/27/2014 14:57:30 02/27/2014 23:59:59 CLS Outpatient Leena Haddad [id number] 12/02/2013 10:40:20 12/02/2013 23:59:59 CLS Outpatient HetlingSean magana [id number] 11/25/2013 10:02:26 11/25/2013 23:59:59 CLS Outpatient HetlingSean magana [id number] 11/14/2013 15:16:36 11/14/2013 23:59:59 CLS Outpatient Kiarra Ramos [id number] 08/01/2018 12:07:55 Document Registration [id number] 07/25/2018 10:28:51 Document Registration [id number] 07/20/2018 08:59:49 Document Registration [id number] 05/22/2018 15:27:56 Document Registration [id number] 04/30/2018 10:19:47 Document Registration [id number] 03/02/2018 08:28:44 Document Registration [id number] 01/19/2018 11:47:58 Document Registration [id number] 12/04/2017 22:01:23 Document Registration [id number] 11/17/2017 14:30:23 Document Registration [id number] 11/17/2017 14:20:24 Document Registration [id number] 11/13/2017 16:14:58 Document Registration [id number] 10/17/2017 14:41:57 Document Registration [id number] 09/22/2017 16:12:37 Document Registration [id number] 09/22/2017 16:11:47 Document Registration [id number] 09/01/2017 08:49:17 Document Registration [id number] 06/16/2017 11:00:02 Document Registration [id number] 05/18/2017 13:38:17 Document Registration [id number] 05/17/2017 08:52:26 Document Registration [id number] 08/31/2018 22:27:00 09/01/2018 04:30:00 DIS Outpatient JOHN GRULLON, DEMETRIUS Jacob [facility] ER TEMP; BARIATRIC SURGERY COMPLICATIONS [id number] 08/30/2018 11:18:00 08/31/2018 15:50:00 DIS Outpatient MATILDE ADAMS MD [facility] 4TH MORBID OBESITY [id number] 08/27/2018 12:07:00 08/27/2018 15:47:00 DIS Outpatient MATILDE ADAMS MD [facility] PREOP MORBID OBESITY [id number] 08/15/2018 08:11:00 08/15/2018 23:59:59 CLS Outpatient MATILDE ADAMS MD [facility] RAD REFLUX [id number] 07/31/2018 10:14:00 07/31/2018 23:59:59 CLS Outpatient AUDREY AYOUB APRN [facility] RAD J44.9,G47.00 [id number] 07/18/2018 11:37:00 07/18/2018 14:50:00 DIS Outpatient MATILDE ADAMS MD [facility] ENDO REFLUX [id number] 07/17/2018 14:37:00 07/17/2018 15:09:00 DIS Outpatient MATILDE ADAMS MD [facility] PREOP EGD [id number] 03/08/2018 08:15:00 03/08/2018 23:59:59 CLS Preadmit MEGA, AUDREY E IT MANAGER [facility] PULM F41.9 ANXIETY J45.909 ASTHMA [id number] 12/19/2017 13:00:00 03/07/2018 00:01:00 DIS Outpatient MEGA, AUDREY E IT MANAGER [facility] PULM F41.9 ANXIETY J45.909 ASTHMA [id number] 12/18/2017 11:38:00 12/18/2017 23:59:59 CLS Outpatient MEGA, AUDREY E IT MANAGER [facility] RT RESTRICITVE LUNG DISEASE,ASTHMA [id number] 12/12/2017 15:37:00 12/12/2017 23:59:59 CLS Outpatient MEGA, AUDREY E IT MANAGER [facility] PULM J45.909 [id number] 12/05/2017 13:54:00 12/05/2017 23:59:59 CLS Outpatient MEGA, AUDREY E IT MANAGER [facility] RAD J45.909,J44.9 [id number] 11/30/2017 13:00:00 12/03/2017 00:01:00 DIS Outpatient MEGA, AUDREY E IT MANAGER [facility] PULM F41.9 ANXIETY J45.909 ASTHMA [id number] 10/19/2017 15:24:00 10/19/2017 23:59:59 CLS Outpatient MEGA, AUDREY E IT MANAGER [facility] LAB J44.9 R09.02 I26.99 J98.4 [id number] 06/30/2017 08:37:00 06/30/2017 23:59:59 CLS Outpatient MEGA, AUDREY E IT MANAGER [facility] LAB J44.9 [id number] 06/29/2017 14:43:00 06/29/2017 23:59:59 CLS Outpatient WEN POOL DO [facility] RAD COPD,ASTHMA [id number] 06/14/2017 15:28:00 06/14/2017 23:59:59 CLS Outpatient AUDREY AYOUB APRN [facility] RAD J45.909 ASTHMA [id number] 09/06/2018 13:35:00 ACT Inpatient MATILDE ADAMS MD [facility] 4TH POST OP GASTRECTOMY LEAK [id number] 09/06/2018 11:44:00 ACT Outpatient MATILDE ADAMS MD [facility] RAD ABD PAIN S/P SLEEVE GASTRECTOMY [id number] 01/22/2018 11:05:00 Document Registration [id number] 08/27/2018 14:39:00 08/27/2018 23:59:59 CLS Outpatient Carolina Barry [id number] 08/06/2018 15:45:00 08/06/2018 23:59:59 CLS Outpatient Carolina Barry [id number] 06/26/2018 14:46:00 06/26/2018 23:59:59 CLS Outpatient Carolina Barry [id number] 05/02/2018 11:05:00 05/02/2018 23:59:59 CLS Outpatient Carolina Barry [id number] 04/30/2018 08:38:00 04/30/2018 23:59:59 CLS Outpatient Carolina Barry [id number] 04/16/2018 12:00:00 04/16/2018 23:59:59 CLS Outpatient Carolina Barry [id number] 04/03/2018 13:30:00 04/03/2018 23:59:59 CLS Outpatient Carolina Barry [id number] 08/04/2018 14:05:00 Document Registration
[2018-09-06] MEDS ORDERED: RT-LEVALBUTEROL (XOPENEX) 1.25 MG/3 ML NEB NON-FORMULARY INH PRN (16:45)
[2018-09-06] MEDS: metroNIDAZOLE 500MG/100ML IVPB 100 ML IV SCH (17:11)
[2018-09-06] MEDS: AA 4.25% W/LYTES IN D5W IV SOL 1,000 ML IV SCH (17:11)
[2018-09-06] MEDS ORDERED: LORazepam INJ 2 MG/ML (ATIVAN) VIAL IVP PRN (17:30)
--- NOTE | 2018-09-06 19:16 | HISTORY AND PHYSICAL ---
DATE OF SERVICE: ATTENDING PHYSICIAN: Dr. Marie and Dr. Malin. 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 She is status post laparoscopic gastric sleeve resection on 08/30/2018. At that time, she was found to have several dense adhesion tissues from multiple previous open abdominal surgeries in the past. She was seen in the office on 09/05/2018 for a followup status post laparoscopic gastric sleeve resection and did have a left upper quadrant abdominal NATHEN drain in place. At that time, she reports that she was doing well and denied any issues; however, did report that she did have to return to the ER the following evening for surgery with 103 fever; however, reports that she did not herniate. She had reported that her followup appointments did not had any issues since that time. She reported that she was tolerating a phase I clear liquid diet; however, was doing a Charcot as well as a peach protein shakes. At that time, it was discovered that she did have cloudy milky appearance drainage in her NATHEN drain and it was decided to proceed with an upper GI series with Gastrografin due to a potential leak. She did undergo the upper GI contrast series today where she was found to have a small contained leak from the stomach. Since then, she was admitted for a gastric leak and a PICC line was placed and she was placed on n.p.o. status except for medications and TPN was ordered. She reports since being admitted that she is doing well and is having minimal abdominal pain as well as no fever or chills. She also denies any nausea or vomiting. She did report that she did notice some leaking around the NATHEN drain insertion site and that this does continue to be a cloudy milky appearance to the drainage. She denies any other issues at this time. 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 repair of a torn bowel and ORIF of right humerus with an incisional abdominal hernia repair in 1997, 1998 and 2000, laparoscopic lysis of adhesions in 2002, somnoplasty in 1998, repair of nasal septum in 1999, InterStim unit implanted for aid with the urinary bladder control in the left buttock in 2006, removal, abdominal mass, which was benign in 2008, left wrist surgery in 2008, left knee arthroscopy for torn meniscus in total removal of bone spurs, right shoulder in 2012, removal of bone spurs, left shoulder in 2014, left knee arthroscopy for torn ligament in 2015, tracheostomy in 1997, cardiac catheterization x2 with no stents placed around 1999, laparoscopic gastric sleeve resection on 08/30/2018. ALLERGIES: ALBUTEROL, PERCOCET, PREMARIN, LYRICA. MEDICATIONS: levothyroxine 60 mcg daily, Nuvigil 150 mg daily, Spiriva respimat 2.5 mcg daily, Breo 25 mcg daily, Abilify 5 mg daily, Savella 100 mg b.i.d., Tylenol Arthritis 1300 mg b.i.d., Aleve 440 mg b.i.d., Zyrtec 10 mg daily p.r.n., Requip 4 mg daily, Protonix 40 mg daily, lovastatin 40 mg daily, Toviaz 8 mg daily, Lamictal 100 mg daily, fluticasone 50 mcg daily, Bisacodyl 5 mg daily, trazodone 150 mg daily, Xyzal 5 mg daily, Lasix 40 mg 1 to 2 tablets daily p.r.n., Xanax 0.25 mg p.r.n., Xopenex 45 mcg p.r.n., tizanidine 4 mg p.r.n., Singulair 10 mg daily p.r.n., Zofran 4 mg p.r.n., hydrocodone elixir p.r.n., 3 liters O2 continuous. SOCIAL HISTORY: Negative for smoke, social alcohol. FAMILY HISTORY: Mother with breast cancer diagnosed at 64 years of age. Paternal grandfather lung cancer. Maternal grandmother and grandfather with hypertension. PHYSICAL EXAMINATION: VITAL SIGNS: Temperature 98.5, pulse 86, respiratory rate 16, blood pressure 123/64, pulse ox at 99% on 3 liters nasal cannula. Current weight is 272 pounds with a body mass index of 46.7. LABORATORY DATA: WBC 6.8, hemoglobin 9.7, hematocrit 31, platelets 268. Sodium 141, potassium 3.4, chloride 100, BUN 10, creatinine 0.63, glucose 104, calcium 9.5, phosphorus 3.4, magnesium 2.2, AST 21, ALT 16, PT 14.0, INR 1.1. REVIEW OF SYSTEMS: This is a well-nourished female in no acute distress. She does report periodic episodes of shortness of breath, but no difficulty breathing. No chest pain, palpitations or diaphoresis. No nausea or vomiting. She does report some mild left upper quadrant abdominal tenderness. No diarrhea. Does report a history of constipation. No red blood per rectum. No dark tarry stools. She did report one episode of a fever of 103; however, none since. No recent inadvertent weight loss. All other review of systems is negative. PHYSICAL EXAMINATION: CHEST: Clear. Good breath sounds bilaterally. HEART: Regular, no murmurs. EXTREMITIES: No lower extremity edema. Negative Homans sign. HEENT: No scleral icterus. No cervical lymphadenopathy. ABDOMEN: Soft, nondistended. There is some tenderness with moderate palpation in left upper abdominal quadrant as well as a NATHEN drain in place with a cloudy milky drainage. There is a midline abdominal incision as well as a right upper incision from her previous cholecystectomy as well as the right lower incision for previous appendectomy. There are multiple incisional hernias along the midline incision and the recurrent; however, reducible. There are 3 laparoscopic incisions that are clean, dry and intact with no redness, erythema or any drainage noted. SKIN: Warm, dry and pink. NEUROLOGIC: Awake and oriented x3. ASSESSMENT AND PLAN: A 52-year-old female with morbid obesity and medical comorbidities related to obesity including obstructive sleep apnea, anxiety, depression, lower extremity edema, degenerative joint disease, knees, hips and hypercholesterolemia. She is status post laparoscopic gastric sleeve resection on 08/30/2018; however, was found today on upper GI contrast series to have a gastric leak. At this time, we will admit the patient and proceed with n.p.o. status and then proceed with a PICC line as well as with the TPN for nutrition as well as IV hydration. We will also proceed with IV antibiotics as well as pain and nausea medication. We will continue to monitor patient's labs as well as a physical exam and once her NATHEN drain has cleared up and had minimal drainage, we will be possibly considering repeating the upper GI contrast series and once the leak had healed and the patient is able to take p.o. liquids without any issues, we will discharge her home. Job ID: [id number] DocumentID: [id number] Dictated Date: 09/06/2018 17:16:06 Card Puncher Date: 09/06/2018 19:16:11 Dictated By: MATILDE ADAMS MD MTDD
[2018-09-06 20:07] VITALS: BP 132/68
[2018-09-06] MEDS ORDERED: NON-FORMULARY MEDICATION 1 EA EA (Ropinirole HCl 4 MG) PO SCH (21:00)
[2018-09-06] MEDS ORDERED: NON-FORMULARY MEDICATION 1 EA EA (Gabapentin 800 MG) PO SCH (21:00)
[2018-09-06] MEDS ORDERED: NON-FORMULARY MEDICATION 1 EA EA (Fesoterodine Fumarate (Toviaz) 8 MG) PO SCH (21:00)
[2018-09-06] MEDS ORDERED: NON-FORMULARY MEDICATION 1 EA EA (Lovastatin 40 MG) PO SCH (21:00)
[2018-09-06] MEDS ORDERED: NON-FORMULARY MEDICATION 1 EA EA (Milnacipran HCl (Savella) 100 MG) PO SCH (21:00)
[2018-09-06] MEDS ORDERED: NON-FORMULARY MEDICATION 1 EA EA (Lamotrigine 100 MG) PO SCH (21:00)
[2018-09-06] MEDS: FLUTICASONE NASAL SPRAY (FLONASE) 16 GM BTL NS SCH (21:21)
[2018-09-06] MEDS: traZODone 150 MG (DESYREL) TABLET PO SCH (21:22)
[2018-09-06] MEDS: SIMvastatin 20 MG (ZOCOR) TAB PO SCH (21:22)
[2018-09-06] MEDS: GABAPENTIN 400 MG (NEURONTIN) CAP PO SCH (21:22)
[2018-09-06] MEDS: TOLTERODINE LA 4 MG (DETROL) CAP PO SCH (21:22)
[2018-09-06] MEDS: rOPINIRole 1 MG (REQUIP) TABLET PO SCH (21:23)
[2018-09-07 00:07] VITALS: BP 117/64
[2018-09-07 04:02] VITALS: BP 142/63
[2018-09-07] MEDS: metroNIDAZOLE 500MG/100ML IVPB 100 ML IV SCH ×2 (04:15→14:28)
[2018-09-07] MEDS: AA 4.25% W/LYTES IN D5W IV SOL 1,000 ML IV SCH ×2 (04:15→12:49)
[2018-09-07] MEDS: THYROID (ARMOUR) 60 MG TABLET PO SCH (06:26)
[2018-09-07 06:45] LABS: HEMOGLOBIN 9.7 G/DL (11.5-16.0); MEAN PLATELET VOLUME 10.6 FL (7.4-10.4); RED BLOOD COUNT 3.76 10^6/uL (4.35-5.85); RED CELL DISTRIBUTION WIDTH 13.9 % (10.0-14.5); WHITE BLOOD COUNT 5.7 10^3/uL (4.3-11.0)
[2018-09-07 07:08] LABS: INR 1.1 (0.8-1.4); PROTHROMBIN TIME PATIENT 14.4 SEC (12.2-14.7)
[2018-09-07] MEDS: RT-ADVAIR HFA 115/21 MCG PER PUFF IH SCH (07:12)
[2018-09-07] MEDS: UMECLIDINIUM BROMIDE (INCRUSE ELLIPTA) 7'S IH SCH (07:12)
[2018-09-07 07:13] LABS: ALANINE AMINOTRANSFERASE 17 U/L (0-55); ALBUMIN 3.2 GM/DL (3.2-4.5); ALKALINE PHOSPHATASE 84 U/L (40-136); BILIRUBIN,TOTAL 0.3 MG/DL (0.1-1.0); BUN/CREATININE RATIO 17; CALCIUM 9.6 MG/DL (8.5-10.1); CARBON DIOXIDE 29 MMOL/L (21-32); CHLORIDE 101 MMOL/L (98-107); CREATININE SERUM 0.65 MG/DL (0.60-1.30); GFR ESTIMATED > 60; GLUCOSE 117 MG/DL (70-105); MAGNESIUM 2.2 MG/DL (1.8-2.4); PHOSPHORUS 3.7 MG/DL (2.3-4.7); POTASSIUM 3.6 MMOL/L (3.6-5.0); SODIUM 141 MMOL/L (135-145); TOTAL PROTEIN 6.2 GM/DL (6.4-8.2); TRIGLYCERIDES 123 MG/DL (<150)
[2018-09-07 08:00] VITALS: BP 128/58
[2018-09-07] MEDS: POTASSIUM CL 10 MEQ/50 ML IVPB (PRE-MIX) IV SCH ×4 (08:03→10:33)
[2018-09-07] MEDS: PANTOPRAZOLE 40 MG (PROTONIX) VIAL IV SCH (08:04)
[2018-09-07] MEDS: ARIPIPRAZOLE 10 MG (ABILIFY) TAB PO SCH (08:04)
[2018-09-07] MEDS: GABAPENTIN 400 MG (NEURONTIN) CAP PO SCH ×3 (08:04→20:58)
[2018-09-07] MEDS ORDERED: THYROID PORK 60 MG PO SCH (09:00)
[2018-09-07] MEDS ORDERED: NON-FORMULARY MEDICATION 1 EA EA (Aripiprazole 5 MG) PO SCH (09:00)
[2018-09-07] MEDS ORDERED: TIOTROPIUM BROMIDE (SPIRIVA) 5'S INHALER IH SCH (09:00)
[2018-09-07] MEDS: fentaNYL INJECTION 100 MCG/2 ML AMP IV PRN ×2 (09:00→17:46)
[2018-09-07 12:00] VITALS: BP 128/63
--- NOTE | 2018-09-07 13:04 | Progress Note (SOAP) ---
Subjective Date Seen by a Provider: Sep 07, 2018 Time Seen by a Provider: 12:00 Subjective/Events-last exam doing well. minimal drain output. no fever/chills. afebrile with normal WBC Objective Exam Vital Signs Date Time Temp Pulse Resp B/P (MAP) Pulse Ox O2 Delivery O2 Flow Rate FiO2 09/07/18 08:05 Nasal Cannula 3.00 09/07/18 08:00 99.3 77 19 128/58 (81) 100 Nasal Cannula 3.00 09/07/18 07:13 96 Nasal Cannula 3.00 09/07/18 04:02 97.7 79 18 142/63 (89) 93 NIV CPAP 09/07/18 00:07 98.6 80 20 117/64 (81) 95 NIV CPAP 09/06/18 20:07 98.6 86 18 132/68 (89) 99 Nasal Cannula 3.00 09/06/18 20:00 Nasal Cannula 3.00 09/06/18 16:00 98.5 86 16 123/64 (83) 99 Nasal Cannula 3.00 09/06/18 14:30 Nasal Cannula 3.00 09/06/18 13:40 97.5 90 18 177/77 (110) 100 Nasal Cannula 3.00 I & O 09/07/18 07:00 Intake Total 1500 ml Output Total 2045 ml Balance -545 ml Capillary Refill : General Appearance: No Apparent Distress HEENT: PERRL/EOMI Neck: Full Range of Motion Respiratory: Chest Non Tender, Lungs Clear, Normal Breath Sounds Cardiovascular: Regular Rate, Rhythm Gastrointestinal: normal bowel sounds Extremity: Normal Capillary Refill Neurologic/Psychiatric: Alert, Oriented x3 Skin: Normal Color Lymphatic: No Adenopathy Results Lab Laboratory Tests 09/06/18 15:15: White Blood Count 6.8, Red Blood Count 3.77L, Hemoglobin 9.7L, Hematocrit 31L, Mean Corpuscular Volume 83, Mean Corpuscular Hemoglobin 26, Mean Corpuscular Hemoglobin Concent 31L, Red Cell Distribution Width 14.1, Platelet Count 268, Mean Platelet Volume 10.6H, Prothrombin Time 14.0, INR Comment 1.1, Sodium Level 141, Potassium Level 3.4L, Chloride Level 100, Carbon Dioxide Level 30, Anion Gap 11, Blood Urea Nitrogen 10, Creatinine 0.63, Estimat Glomerular Filtration Rate > 60, BUN/Creatinine Ratio 16, Glucose Level 104, Calcium Level 9.5, Corrected Calcium 10.1, Phosphorus Level 3.4, Magnesium Level 2.2, Total Bilirubin 0.4, Aspartate Amino Transf (AST/SGOT) 21, Alanine Aminotransferase ( ALT/SGPT) 16, Alkaline Phosphatase 95, Total Protein 6.4, Albumin 3.2, Prealbumin 3.1L, Triglycerides Level 122 09/07/18 06:35: White Blood Count 5.7, Red Blood Count 3.76L, Hemoglobin 9.7L, Hematocrit 32L, Mean Corpuscular Volume 85, Mean Corpuscular Hemoglobin 26, Mean Corpuscular Hemoglobin Concent 31L, Red Cell Distribution Width 13.9, Platelet Count 266, Mean Platelet Volume 10.6H, Prothrombin Time 14.4, INR Comment 1.1, Sodium Level 141, Potassium Level 3.6, Chloride Level 101, Carbon Dioxide Level 29, Anion Gap 11, Blood Urea Nitrogen 11, Creatinine 0.65, Estimat Glomerular Filtration Rate > 60, BUN/Creatinine Ratio 17, Glucose Level 117H, Calcium Level 9.6, Corrected Calcium 10.2H, Phosphorus Level 3.7, Magnesium Level 2.2, Total Bilirubin 0.3, Aspartate Amino Transf (AST/SGOT) 19, Alanine Aminotransferase (ALT/SGPT) 17, Alkaline Phosphatase 84, Total Protein 6.2L, Albumin 3.2, Triglycerides Level 123 Assessment/Plan Assessment/Plan Assess & Plan/Chief Complaint contained gastric leak. conservative management with NPO, TPN, and abx. monitor drain output. Clinical Quality Measures DVT/VTE Risk/Contraindication: Risk Factor Score Per Nursin RFS Level Per Nursing on Admit: 4+=Very High MATILDE ADAMS MD Sep 07, 2018 13:04
[2018-09-07] MEDS: LEVOFLOXACIN 500 MG/100 ML IV 100 ML IV SCH (13:07)
[2018-09-07 15:45] VITALS: BP 122/70
[2018-09-07 16:15] LABS: MAGNESIUM 2.2 MG/DL (1.8-2.4); PHOSPHORUS 3.3 MG/DL (2.3-4.7)
[2018-09-07] MEDS ORDERED: [UNRECOGNIZED DRUG - OTHER] IV SCH ×11 (17:00)
[2018-09-07] MEDS ORDERED: 3-IN-1 TPN IV SCH ×10 (17:00)
[2018-09-07] MEDS ORDERED: SODIUM CHLORIDE IV SCH ×11 (17:00)
[2018-09-07] MEDS ORDERED: SODIUM ACETATE IV SCH ×11 (17:00)
[2018-09-07] MEDS: 1/2 NS IV SOLUTION 1,000 ML IV SCH (17:39)
[2018-09-07 19:40] VITALS: BP 110/53
[2018-09-07] MEDS: SIMvastatin 20 MG (ZOCOR) TAB PO SCH (20:58)
[2018-09-07] MEDS: TOLTERODINE LA 4 MG (DETROL) CAP PO SCH (20:58)
[2018-09-07] MEDS: FLUTICASONE NASAL SPRAY (FLONASE) 16 GM BTL NS SCH (20:58)
[2018-09-07] MEDS: rOPINIRole 1 MG (REQUIP) TABLET PO SCH (20:58)
[2018-09-07] MEDS: traZODone 150 MG (DESYREL) TABLET PO SCH (20:58)
[2018-09-07] MEDS: SAVELLA 100 MG PO SCH (20:59)
[2018-09-08] VITALS (7 sets, daily range): BP systolic 102–149; BP diastolic 53–79
[2018-09-08] MEDS: metroNIDAZOLE 500MG/100ML IVPB 100 ML IV SCH ×2 (03:08→15:05)
[2018-09-08] MEDS: THYROID (ARMOUR) 60 MG TABLET PO SCH (06:17)
[2018-09-08 07:07] LABS: ALANINE AMINOTRANSFERASE 16 U/L (0-55); ALBUMIN 3.2 GM/DL (3.2-4.5); ALKALINE PHOSPHATASE 81 U/L (40-136); BILIRUBIN,TOTAL 0.2 MG/DL (0.1-1.0); BUN/CREATININE RATIO 17; CALCIUM 9.4 MG/DL (8.5-10.1); CARBON DIOXIDE 29 MMOL/L (21-32); CHLORIDE 106 MMOL/L (98-107); GFR ESTIMATED > 60; GLUCOSE 118 MG/DL (70-105); POTASSIUM 4.6 MMOL/L (3.6-5.0); SODIUM 143 MMOL/L (135-145); TOTAL PROTEIN 6.3 GM/DL (6.4-8.2)
[2018-09-08] MEDS: PANTOPRAZOLE 40 MG (PROTONIX) VIAL IV SCH (08:50)
[2018-09-08] MEDS: GABAPENTIN 400 MG (NEURONTIN) CAP PO SCH ×3 (08:51→20:22)
[2018-09-08] MEDS: ARIPIPRAZOLE 10 MG (ABILIFY) TAB PO SCH (08:52)
[2018-09-08 08:59] LABS: MAGNESIUM 2.4 MG/DL (1.8-2.4); PHOSPHORUS 3.5 MG/DL (2.3-4.7)
--- NOTE | 2018-09-08 10:59 | Progress Note (SOAP) ---
Subjective Date Seen by a Provider: Sep 08, 2018 Time Seen by a Provider: 10:45 Subjective/Events-last exam Patient seen with Dr. Rueda. Patient reports doing well. Reports abdominal pain is improving. No N/V. No fever/chills. Ambulating well and had small BM yesterday. Passing flatus. Objective Exam Vital Signs Date Time Temp Pulse Resp B/P (MAP) Pulse Ox O2 Delivery O2 Flow Rate FiO2 09/08/18 08:45 Nasal Cannula 3.00 09/08/18 07:58 97.2 76 20 102/69 (80) 93 Nasal Cannula 3.00 09/08/18 04:00 98.2 79 20 107/53 (71) 95 NIV CPAP 09/08/18 00:09 98.4 76 19 128/61 (83) 96 NIV CPAP 09/07/18 20:00 Nasal Cannula 3.00 09/07/18 19:40 98.6 76 20 110/53 (72) 95 Nasal Cannula 3.00 09/07/18 15:45 98.9 78 18 122/70 (87) 100 Nasal Cannula 3.00 09/07/18 12:00 99.1 78 19 128/63 (84) 97 Nasal Cannula 3.00 I & O 09/08/18 07:00 Intake Total 1300 ml Output Total 1765 ml Balance -465 ml Capillary Refill : General Appearance: No Apparent Distress, WD/WN Neck: Full Range of Motion, Normal Inspection, Non Tender, Supple Respiratory: Lungs Clear, Normal Breath Sounds, No Accessory Muscle Use, No Respiratory Distress Cardiovascular: Regular Rate, Rhythm, No Edema Gastrointestinal: normal bowel sounds, soft, tenderness (Minimal), other (NATHEN drain still has some milky fluid, however does appear to be clearing up.) Extremity: Normal Capillary Refill, Normal Inspection, Normal Range of Motion Neurologic/Psychiatric: Alert, Oriented x3 Skin: Normal Color, Warm/Dry, Other (3 lap abdominal inscisions C/D/I) Results Lab Laboratory Tests 09/07/18 15:45: Phosphorus Level 3.3, Magnesium Level 2.2 09/07/18 18:19: Glucometer 115H 09/07/18 23:31: Glucometer 131H 09/08/18 05:26: Glucometer 132H 09/08/18 06:40: Sodium Level 143, Potassium Level 4.6, Chloride Level 106, Carbon Dioxide Level 29, Anion Gap 8, Blood Urea Nitrogen 12, Creatinine 0.70, Estimat Glomerular Filtration Rate > 60, BUN/Creatinine Ratio 17, Glucose Level 118H, Calcium Level 9.4, Corrected Calcium 10.0, Phosphorus Level 3.5, Magnesium Level 2.4, Total Bilirubin 0.2, Aspartate Amino Transf (AST/SGOT) 19, Alanine Aminotransferase (ALT/SGPT) 16, Alkaline Phosphatase 81, Total Protein 6.3L, Albumin 3.2, Triglycerides Level 130 Assessment/Plan Assessment/Plan Assess & Plan/Chief Complaint contained gastric leak. VSS. WBC normal. conservative management with NPO, TPN, and abx. monitor drain output. Clinical Quality Measures DVT/VTE Risk/Contraindication: Risk Factor Score Per Nursin RFS Level Per Nursing on Admit: 4+=Very High SUSAN MURRAY [employer] Sep 08, 2018 10:59
--- NOTE | 2018-09-08 11:08 | Consultation-Hospitalist ---
HPI History of Present Illness: HPI/Chief Complaint Pt is a 52yoCF admitted for postoperative gastectomy leak. She had surgery roughly 1 week ago and was discharged home but developed worsening abdominal pain and her drainage changed in color. She was admitted and found to have a GI leak. I am consulted for medical management. She has no complaints at this time and is on her chronic oxygen requirement. Her pain is improving as well. Source: patient Exam Limitations: no limitations Date Seen 09/08/18 Attending Physician Eliu Rueda MD PCP Sean Marie MD Referring Physician Date of Admission Sep 06, 2018 at 13:35 Home Medications & Allergies Home Medications Reviewed patient Home Medication Reconciliation performed by pharmacy medication reconciliations manufacturing plant technician and/or nursing. Patients Allergies have been reviewed. Allergies Allergies Coded Allergies albuterol (Verified Allergy, Severe, tachycardia, 08/27/18) estrogens, conjugated (Verified Allergy, Severe, PE, 08/27/18) pregabalin (Verified Allergy, Intermediate, VISION PROBLEMS/RASH, 08/27/18) acetaminophen (Verified Allergy, Mild, ITCHING, 08/27/18) oxycodone (Verified Allergy, Mild, ITCHING, 08/27/18) Past Ilibgwb-Gbrktq-Kpoyuy Hx Past Med/Social Hx: Reviewed Nursing Past Med/Soc Hx Patient Social History Marrital Status: Alcohol Use: Denies Use Recreational Drug Use: No Smoking Status: Never a Smoker 2nd Hand Smoke Exposure: No Physical Abuse Screen: No Sexual Abuse: No Recent Foreign Travel: Yes Contact w/other who traveled: Yes Recent Hopitalizations: No Recent Infectious Disease Expo: Yes Immunizations Up To Date Tetanus Booster (TDap): Unknown Date of Pneumonia Vaccine: Jul 02, 2016 Date of Influenza Vaccine: May 31, 2018 Seasonal Allergies Seasonal Allergies: Yes Past Medical History Surgeries: Abdominal, Bowel Surgery, Tracheostomy, Vascular Surgery Respiratory: COPD, Emphysema Currently Using CPAP: Yes Cardiac: Heart Murmur, High Cholesterol, Hypertension Neurological: Neuropathy Reproductive: No Sexually Transmitted Disease: No HIV/AIDS: No Female Reproductive Disorders: Denies Hysterectomy Genitourinary: Neurogenic Bladder Gastrointestinal: Gastroesophageal Reflux, Chronic Constipation Musculoskeletal: Arthritis, Fibromyalgia, Chronic Back Pain, Fractures Loss of Vision: Bilateral Hearing Impairment: Denies Psychosocial: Anxiety, Depression History of Blood Disorders: Yes (HX ANEMIA) Adverse Reaction to Blood Faust: No (HAS HAD BLOOD WITH NO REACTION) Family History Reviewed Nursing Family Hx No Pertinent Family Hx Review of Systems Constitutional: No chills, No fever EENTM: No blurred vision, No double vision, No nose congestion, No throat pain Respiratory: dyspnea on exertion Cardiovascular: No chest pain, No edema, No palpitations Gastrointestinal: see HPI, abdominal pain, constipation Genitourinary: No dysuria, No frequency Musculoskeletal: No joint pain, No muscle pain Skin: No lesions, No rash Psychiatric/Neurological: Denies Headache, Denies Numbness, Denies Tingling Physical Exam Physical Exam Vital Signs Vital Signs - First Documented 09/06/18 13:40 Temp 97.5 Pulse 90 Resp 18 B/P (MAP) 177/77 (110) Pulse Ox 100 O2 Delivery Nasal Cannula O2 Flow Rate 3.00 Capillary Refill : Height, Weight, BMI Height: 5'4.00" Weight: 271lbs. 1.6oz. 122.003925hp; 46.7 BMI Method:Actual General Appearance: No Apparent Distress, WD/WN HEENT: PERRL/EOMI, Moist Mucous Membranes Neck: Non Tender, Supple Respiratory: Lungs Clear, No Respiratory Distress, Other (on oxygen) Cardiovascular: Regular Rate, Rhythm, No Murmur Gastrointestinal: Soft, Abnormal Bowel Sounds (quiet) Extremity: Normal Capillary Refill, No Calf Tenderness Neurologic/Psychiatric: Alert, Oriented x3, Other (flat affect) Skin: Normal Color, Warm/Dry Results Results/Procedures Labs Laboratory Tests 09/06/18 15:15 09/07/18 06:35 09/08/18 06:40 Patient resulted labs reviewed. Imaging: Reviewed Imaging Report Assessment/Plan Assessment and Plan Assess & Plan/Chief Complaint Gastrectomy leak Diagnosis/Problems Diagnosis/Problems (1) S/P gastrectomy Assessment & Plan: with leak management per primary (2) COPD (chronic obstructive pulmonary disease) Status: Chronic Assessment & Plan: No signs of exacerbation MAT protocol On baseline oxygen of 3lpm Qualifiers: COPD type: unspecified COPD Qualified Codes: J44.9 - Chronic obstructive pulmonary disease, unspecified (3) Hypothyroidism Status: Chronic Assessment & Plan: Continue supplementation Qualifiers: Hypothyroidism type: acquired Qualified Codes: E03.9 - Hypothyroidism, unspecified (4) Essential (primary) hypertension Status: Chronic Assessment & Plan: BP well controlled (5) Depression Assessment & Plan: Continue home meds On lamictal as well, unsure if actually bipolar underlying Qualifiers: Depression Type: major depressive disorder Major depression recurrence: unspecified whether recurrent Active/Remission status: remission status unspecified Qualified Codes: F32.9 - Major depressive disorder, single episode , unspecified Clinical Quality Measures DVT/VTE Risk/Contraindication: Risk Factor Score Per Nursin RFS Level Per Nursing on Admit: 4+=Very High RENEE ALLEN MD Sep 08, 2018 11:08
[2018-09-08] MEDS: SAVELLA 100 MG PO SCH ×2 (11:11→20:21)
[2018-09-08] MEDS: RT-ADVAIR HFA 115/21 MCG PER PUFF IH SCH (12:13)
[2018-09-08] MEDS: UMECLIDINIUM BROMIDE (INCRUSE ELLIPTA) 7'S IH SCH (12:14)
[2018-09-08] MEDS: LEVOFLOXACIN 500 MG/100 ML IV 100 ML IV SCH (13:11)
[2018-09-08] MEDS: fentaNYL INJECTION 100 MCG/2 ML AMP IV PRN (15:02)
[2018-09-08] MEDS: [UNRECOGNIZED DRUG - OTHER] IV SCH ×11 (17:06)
[2018-09-08] MEDS: SODIUM ACETATE IV SCH ×11 (17:06)
[2018-09-08] MEDS: SODIUM CHLORIDE IV SCH ×11 (17:06)
[2018-09-08] MEDS: 1/2 NS IV SOLUTION 1,000 ML IV SCH (17:06)
[2018-09-08] MEDS: FLUTICASONE NASAL SPRAY (FLONASE) 16 GM BTL NS SCH (20:22)
[2018-09-08] MEDS: SIMvastatin 20 MG (ZOCOR) TAB PO SCH (20:22)
[2018-09-08] MEDS: TOLTERODINE LA 4 MG (DETROL) CAP PO SCH (20:22)
[2018-09-08] MEDS: traZODone 150 MG (DESYREL) TABLET PO SCH (20:22)
[2018-09-08] MEDS: rOPINIRole 1 MG (REQUIP) TABLET PO SCH (20:23)
[2018-09-09] MEDS: 1/2 NS IV SOLUTION 1,000 ML IV SCH (03:11)
[2018-09-09] MEDS: metroNIDAZOLE 500MG/100ML IVPB 100 ML IV SCH ×2 (03:11→15:41)
[2018-09-09 04:27] VITALS: BP 106/54
[2018-09-09] MEDS: THYROID (ARMOUR) 60 MG TABLET PO SCH (06:01)
[2018-09-09] MEDS: RT-ADVAIR HFA 115/21 MCG PER PUFF IH SCH (06:41)
[2018-09-09] MEDS: UMECLIDINIUM BROMIDE (INCRUSE ELLIPTA) 7'S IH SCH (06:41)
[2018-09-09 08:07] VITALS: BP 146/66
[2018-09-09] MEDS: ARIPIPRAZOLE 10 MG (ABILIFY) TAB PO SCH (08:59)
[2018-09-09] MEDS: PANTOPRAZOLE 40 MG (PROTONIX) VIAL IV SCH (08:59)
[2018-09-09] MEDS: SAVELLA 100 MG PO SCH ×2 (09:00→20:43)
[2018-09-09] MEDS: GABAPENTIN 400 MG (NEURONTIN) CAP PO SCH ×3 (09:00→20:42)
--- NOTE | 2018-09-09 09:46 | Progress Note (SOAP) ---
Subjective Date Seen by a Provider: Sep 09, 2018 Time Seen by a Provider: 09:10 Subjective/Events-last exam Patient seen with Dr. Rueda. Patient reports still doing well. No N/V, fever/ chills. Ambulating and having BMs. Minimal abdominal tenderness. Objective Exam Vital Signs Date Time Temp Pulse Resp B/P (MAP) Pulse Ox O2 Delivery O2 Flow Rate FiO2 09/09/18 08:55 Nasal Cannula 3.00 09/09/18 08:07 97.8 77 18 146/66 (92) 96 Room Air 09/09/18 06:41 96 Nasal Cannula 3.00 09/09/18 04:27 98.1 74 20 106/54 (71) 96 NIV CPAP 09/08/18 23:58 97.7 76 20 121/63 (82) 96 Nasal Cannula 3.00 09/08/18 20:00 Nasal Cannula 3.00 09/08/18 19:28 Nasal Cannula 3.00 09/08/18 19:05 98.4 79 24 107/59 (75) 97 Nasal Cannula 3.00 09/08/18 15:20 97.5 79 24 111/58 (75) 97 Nasal Cannula 3.00 09/08/18 12:00 97.3 76 20 149/79 (102) 97 Nasal Cannula 3.00 I & O 09/09/18 07:00 Intake Total 1635.5699 ml Output Total 2612 ml Balance -976.4301 ml Capillary Refill : General Appearance: No Apparent Distress, WD/WN Neck: Full Range of Motion, Normal Inspection, Non Tender, Supple Respiratory: Lungs Clear, Normal Breath Sounds, No Accessory Muscle Use, No Respiratory Distress Cardiovascular: Regular Rate, Rhythm, No Edema Gastrointestinal: normal bowel sounds, non tender, soft, other (NATHEN drain with milky drainage but improving.) Extremity: Normal Capillary Refill, Normal Inspection, Normal Range of Motion, Non Tender Neurologic/Psychiatric: Alert, Oriented x3 Skin: Normal Color, Warm/Dry, Other (Lap incisions C/D/I) Results Lab Laboratory Tests 09/08/18 12:50: Glucometer 102 09/08/18 17:49: Glucometer 122H 09/08/18 23:54: Glucometer 117H 09/09/18 05:27: Glucometer 121H Assessment/Plan Assessment/Plan Assess & Plan/Chief Complaint contained gastric leak. VSS. WBC normal. conservative management with NPO, TPN, and abx. monitor drain output. Clinical Quality Measures DVT/VTE Risk/Contraindication: Risk Factor Score Per Nursin RFS Level Per Nursing on Admit: 4+=Very High SUSAN MURRAY PHYSICAL SCIENCES INSTRUCTOR Sep 09, 2018 09:46
[2018-09-09 12:24] VITALS: BP 117/58
[2018-09-09] MEDS: LEVOFLOXACIN 500 MG/100 ML IV 100 ML IV SCH (13:12)
[2018-09-09] MEDS: fentaNYL INJECTION 100 MCG/2 ML AMP IV PRN (13:12)
[2018-09-09 15:15] VITALS: BP 115/57
[2018-09-09] MEDS: SODIUM CHLORIDE IV SCH ×11 (17:49)
[2018-09-09] MEDS: [UNRECOGNIZED DRUG - OTHER] IV SCH ×11 (17:49)
[2018-09-09] MEDS: SODIUM ACETATE IV SCH ×11 (17:49)
[2018-09-09 19:25] VITALS: BP 120/58
[2018-09-09] MEDS: TOLTERODINE LA 4 MG (DETROL) CAP PO SCH (20:42)
[2018-09-09] MEDS: SIMvastatin 20 MG (ZOCOR) TAB PO SCH (20:42)
[2018-09-09] MEDS: rOPINIRole 1 MG (REQUIP) TABLET PO SCH (20:42)
[2018-09-09] MEDS: traZODone 150 MG (DESYREL) TABLET PO SCH (20:42)
[2018-09-09] MEDS: FLUTICASONE NASAL SPRAY (FLONASE) 16 GM BTL NS SCH (20:43)
[2018-09-10] VITALS: BP 109/56
[2018-09-10] MEDS: metroNIDAZOLE 500MG/100ML IVPB 100 ML IV SCH ×2 (01:56→15:08)
[2018-09-10 04:00] VITALS: BP 110/55
[2018-09-10] MEDS: THYROID (ARMOUR) 60 MG TABLET PO SCH (06:54)
[2018-09-10] MEDS: RT-ADVAIR HFA 115/21 MCG PER PUFF IH SCH (07:49)
[2018-09-10] MEDS: UMECLIDINIUM BROMIDE (INCRUSE ELLIPTA) 7'S IH SCH (07:49)
[2018-09-10 08:00] VITALS: BP 123/65
[2018-09-10] MEDS: PANTOPRAZOLE 40 MG (PROTONIX) VIAL IV SCH (08:38)
[2018-09-10] MEDS: GABAPENTIN 400 MG (NEURONTIN) CAP PO SCH ×3 (08:38→20:05)
[2018-09-10] MEDS: ARIPIPRAZOLE 10 MG (ABILIFY) TAB PO SCH (08:39)
[2018-09-10] MEDS: SAVELLA 100 MG PO SCH ×2 (08:39→20:07)
[2018-09-10] MEDS ORDERED: DIATRIZOATE MEGLUM/SODIUM 37% 120 ML (GASTROGRAFIN) PO ONE (11:45)
[2018-09-10 12:00] VITALS: BP 118/57
--- NOTE | 2018-09-10 12:41 | Diagnostic Imaging Report ---
EXAMINATION: Upper GI exam with KUB. INDICATION: Gastric leak. FINDINGS: The recent upper GI exam performed on 09/06/2018 noted a small area of extravasation extending from the lateral aspect of the gastric fundus towards the drainage catheter in the left upper quadrant. The patient was asked to swallow a small amount of Gastrografin. She was able to do this without difficulty. There was immediate extension of the contrast from the gastric lumen towards the drainage catheter in the left upper quadrant. This would indicate that the integrity of the gastric wall is still compromised. The exam was subsequently then terminated. IMPRESSION: 1. There is persistent extravasation of the contrast from the gastric lumen towards the drainage catheter in the left upper quadrant. 2. These results were discussed with Dr. Rueda. Dictated by: Dictated on workstation # [id number]
[2018-09-10] MEDS: LEVOFLOXACIN 500 MG/100 ML IV 100 ML IV SCH (13:30)
[2018-09-10] MEDS: 1/2 NS IV SOLUTION 1,000 ML IV SCH (13:31)
[2018-09-10 16:10] VITALS: BP 112/58
[2018-09-10] MEDS ORDERED: TOVIAZ 8 MG PO SCH (16:45)
[2018-09-10] MEDS: [UNRECOGNIZED DRUG - OTHER] IV SCH ×11 (17:20)
[2018-09-10] MEDS: SODIUM ACETATE IV SCH ×11 (17:20)
[2018-09-10] MEDS: SODIUM CHLORIDE IV SCH ×11 (17:20)
--- NOTE | 2018-09-10 17:22 | Progress Note (SOAP) ---
Subjective Date Seen by a Provider: Sep 10, 2018 Time Seen by a Provider: 17:00 Subjective/Events-last exam doing well clinically. no complaints. no SOB/cough. no abdominal pain. no fever/ chills. repeat upper GI did show continued contained leak. Objective Exam Vital Signs Date Time Temp Pulse Resp B/P (MAP) Pulse Ox O2 Delivery O2 Flow Rate FiO2 09/10/18 12:00 98.7 89 18 118/57 (77) 98 Nasal Cannula 3.00 09/10/18 08:00 99.1 84 20 123/65 (84) 97 Nasal Cannula 3.00 09/10/18 08:00 97 Nasal Cannula 3.00 09/10/18 07:50 97 Nasal Cannula 3.00 09/10/18 04:00 98.2 79 20 110/55 (73) 97 Nasal Cannula 3.00 09/10/18 00:00 97.5 82 20 109/56 (73) 97 Nasal Cannula 3.00 09/09/18 20:32 Nasal Cannula 3.00 09/09/18 20:00 Nasal Cannula 3.00 09/09/18 19:25 97.1 83 24 120/58 (78) 95 Nasal Cannula 3.00 I & O 09/10/18 07:00 Intake Total 3254.1398 ml Output Total 3760 ml Balance -505.8602 ml Capillary Refill : General Appearance: No Apparent Distress HEENT: PERRL/EOMI Neck: Full Range of Motion Respiratory: Chest Non Tender, Lungs Clear, Normal Breath Sounds Cardiovascular: Regular Rate, Rhythm Gastrointestinal: normal bowel sounds, non tender, soft Extremity: Normal Capillary Refill Neurologic/Psychiatric: Alert, Oriented x3 Skin: Normal Color Lymphatic: No Adenopathy Results Lab Laboratory Tests 09/09/18 17:48: Glucometer 113H 09/10/18 05:11: Glucometer 124H Assessment/Plan Assessment/Plan Assess & Plan/Chief Complaint contained gastric leak. conservative management with NPO, TPN, and abx. monitor drain output. repaeat upper GI did show continued contained leak. gave option of continued conservative therapy with NPO, bowel rest and TPN which she would like to do. will proceed with another upper GI monday and if continued leak then GI referral for covered stent placement. Clinical Quality Measures DVT/VTE Risk/Contraindication: Risk Factor Score Per Nursin RFS Level Per Nursing on Admit: 4+=Very High MATILDE ADAMS MD Sep 10, 2018 17:22
[2018-09-10] MEDS: FLUTICASONE NASAL SPRAY (FLONASE) 16 GM BTL NS SCH (20:04)
[2018-09-10 20:05] VITALS: BP 113/56
[2018-09-10] MEDS: rOPINIRole 1 MG (REQUIP) TABLET PO SCH (20:05)
[2018-09-10] MEDS: traZODone 150 MG (DESYREL) TABLET PO SCH (20:05)
[2018-09-10] MEDS: SIMvastatin 20 MG (ZOCOR) TAB PO SCH (20:05)
[2018-09-10] MEDS: TOVIAZ 8 MG PO SCH (20:06)
[2018-09-11] VITALS: BP 108/52
[2018-09-11] MEDS: metroNIDAZOLE 500MG/100ML IVPB 100 ML IV SCH ×2 (02:46→14:51)
[2018-09-11 04:00] VITALS: BP 112/59
[2018-09-11] MEDS: THYROID (ARMOUR) 60 MG TABLET PO SCH (05:53)
[2018-09-11 06:35] LABS: HEMOGLOBIN 10.9 G/DL (11.5-16.0); MEAN PLATELET VOLUME 10.4 FL (7.4-10.4); RED BLOOD COUNT 4.26 10^6/uL (4.35-5.85); WHITE BLOOD COUNT 8.7 10^3/uL (4.3-11.0)
[2018-09-11] MEDS: RT-ADVAIR HFA 115/21 MCG PER PUFF IH SCH (07:37)
[2018-09-11] MEDS: UMECLIDINIUM BROMIDE (INCRUSE ELLIPTA) 7'S IH SCH (07:38)
[2018-09-11 08:00] VITALS: BP 121/60
[2018-09-11] MEDS: GABAPENTIN 400 MG (NEURONTIN) CAP PO SCH ×3 (08:12→20:12)
[2018-09-11] MEDS: PANTOPRAZOLE 40 MG (PROTONIX) VIAL IV SCH (08:12)
[2018-09-11] MEDS: ARIPIPRAZOLE 10 MG (ABILIFY) TAB PO SCH (08:12)
[2018-09-11] MEDS: SAVELLA 100 MG PO SCH ×2 (08:13→20:11)
[2018-09-11 12:00] VITALS: BP 145/77
[2018-09-11] MEDS: LEVOFLOXACIN 500 MG/100 ML IV 100 ML IV SCH (13:34)
--- NOTE | 2018-09-11 15:51 | Progress Note (SOAP) ---
Subjective Date Seen by a Provider: Sep 11, 2018 Time Seen by a Provider: 14:00 Subjective/Events-last exam no change in clinical status. pain controlled. no fever/chills. VSS, afebrile. minimal drain output. Objective Exam Vital Signs Date Time Temp Pulse Resp B/P (MAP) Pulse Ox O2 Delivery O2 Flow Rate FiO2 09/11/18 12:00 98.7 97 20 145/77 (99) 95 Room Air 09/11/18 08:00 97 Nasal Cannula 3.00 09/11/18 08:00 98.2 86 20 121/60 (80) 92 Room Air 09/11/18 07:40 90 21 09/11/18 04:00 98.7 84 20 112/59 (76) 95 NIV CPAP 09/11/18 00:00 97.1 89 20 108/52 (70) 97 NIV CPAP 3.00 09/10/18 20:05 97.1 88 20 113/56 (75) 98 Nasal Cannula 3.00 09/10/18 20:00 Nasal Cannula 3.00 09/10/18 19:15 Nasal Cannula 3.00 09/10/18 16:10 99.3 89 20 112/58 (76) 98 Nasal Cannula 3.00 I & O 09/11/18 07:00 Intake Total 1500 ml Output Total 2800 ml Balance -1300 ml Capillary Refill : General Appearance: No Apparent Distress HEENT: PERRL/EOMI Neck: Full Range of Motion Respiratory: Chest Non Tender, Lungs Clear, Normal Breath Sounds Cardiovascular: Regular Rate, Rhythm Gastrointestinal: normal bowel sounds, soft Extremity: Normal Capillary Refill Neurologic/Psychiatric: Alert, Oriented x3, No Motor/Sensory Deficits Skin: Normal Color Lymphatic: No Adenopathy Results Lab Laboratory Tests 09/11/18 05:17: Glucometer 149H 09/11/18 06:20: White Blood Count 8.7, Red Blood Count 4.26L, Hemoglobin 10.9L, Hematocrit 36, Mean Corpuscular Volume 85, Mean Corpuscular Hemoglobin 26, Mean Corpuscular Hemoglobin Concent 30L, Red Cell Distribution Width 14.0, Platelet Count 283, Mean Platelet Volume 10.4 Assessment/Plan Assessment/Plan Assess & Plan/Chief Complaint contained gastric leak. conservative management with NPO, TPN, and abx. monitor drain output. repaeat upper GI did show continued contained leak. gave option of continued conservative therapy with NPO, bowel rest and TPN which she would like to do. will proceed with another upper GI monday and if continued leak then GI referral for covered stent placement. current call out for [facility] transfer for endoscopic stent placement. Clinical Quality Measures DVT/VTE Risk/Contraindication: Risk Factor Score Per Nursin RFS Level Per Nursing on Admit: 4+=Very High MATILDE ADAMS MD Sep 11, 2018 15:50
[2018-09-11 16:00] VITALS: BP 117/65
[2018-09-11] MEDS: [UNRECOGNIZED DRUG - OTHER] IV SCH ×11 (17:10)
[2018-09-11] MEDS: SODIUM ACETATE IV SCH ×11 (17:10)
[2018-09-11] MEDS: SODIUM CHLORIDE IV SCH ×11 (17:10)
[2018-09-11] MEDS: 1/2 NS IV SOLUTION 1,000 ML IV SCH (17:12)
[2018-09-11 20:00] VITALS: BP 112/59
[2018-09-11] MEDS: rOPINIRole 1 MG (REQUIP) TABLET PO SCH (20:09)
[2018-09-11] MEDS: TOVIAZ 8 MG PO SCH (20:10)
[2018-09-11] MEDS: FLUTICASONE NASAL SPRAY (FLONASE) 16 GM BTL NS SCH (20:10)
[2018-09-11] MEDS: traZODone 150 MG (DESYREL) TABLET PO SCH (20:12)
[2018-09-11] MEDS: SIMvastatin 20 MG (ZOCOR) TAB PO SCH (20:12)
[2018-09-12] VITALS: BP 113/57
[2018-09-12] MEDS: metroNIDAZOLE 500MG/100ML IVPB 100 ML IV SCH ×2 (02:57→16:39)
[2018-09-12 04:00] VITALS: BP 102/53
[2018-09-12 05:34] LABS: ALANINE AMINOTRANSFERASE 17 U/L (0-55); ALBUMIN 3.3 GM/DL (3.2-4.5); ALKALINE PHOSPHATASE 82 U/L (40-136); BILIRUBIN,TOTAL 0.3 MG/DL (0.1-1.0); BUN/CREATININE RATIO 25; CALCIUM 9.7 MG/DL (8.5-10.1); CARBON DIOXIDE 27 MMOL/L (21-32); CHLORIDE 105 MMOL/L (98-107); CREATININE SERUM 0.77 MG/DL (0.60-1.30); GFR ESTIMATED > 60; GLUCOSE 111 MG/DL (70-105); MAGNESIUM 2.3 MG/DL (1.8-2.4); POTASSIUM 4.4 MMOL/L (3.6-5.0); SODIUM 141 MMOL/L (135-145); TOTAL PROTEIN 6.5 GM/DL (6.4-8.2)
[2018-09-12] MEDS: THYROID (ARMOUR) 60 MG TABLET PO SCH (05:58)
[2018-09-12] MEDS: HYDROcodone/APAP 7.5MG-325 MG/15 ML (LORTAB) UDC PO PRN ×2 (05:58→21:45)
[2018-09-12 08:00] VITALS: BP 109/56
[2018-09-12] MEDS: RT-ADVAIR HFA 115/21 MCG PER PUFF IH SCH (08:27)
[2018-09-12] MEDS: UMECLIDINIUM BROMIDE (INCRUSE ELLIPTA) 7'S IH SCH (08:33)
[2018-09-12] MEDS: PANTOPRAZOLE 40 MG (PROTONIX) VIAL IV SCH (09:16)
[2018-09-12] MEDS: SAVELLA 100 MG PO SCH ×2 (09:16→21:42)
[2018-09-12] MEDS: GABAPENTIN 400 MG (NEURONTIN) CAP PO SCH ×3 (09:16→21:44)
[2018-09-12] MEDS: ARIPIPRAZOLE 10 MG (ABILIFY) TAB PO SCH (09:16)
[2018-09-12 12:00] VITALS: BP 112/59
[2018-09-12] MEDS ORDERED: LIDOCAINE 1% INJ 20 ML 20 ML VIAL ONE (13:18)
[2018-09-12] MEDS: LEVOFLOXACIN 500 MG/100 ML IV 100 ML IV SCH (13:28)
--- NOTE | 2018-09-12 15:03 | Progress Note (SOAP) ---
Subjective Date Seen by a Provider: Sep 12, 2018 Time Seen by a Provider: 14:00 Subjective/Events-last exam doing ok, no change. minimal ida output and becoming more serous. no abd pain. Objective Exam Vital Signs Date Time Temp Pulse Resp B/P (MAP) Pulse Ox O2 Delivery O2 Flow Rate FiO2 09/12/18 12:00 98.6 85 18 112/59 (76) 99 Nasal Cannula 3.00 09/12/18 09:00 92 Room Air 3.00 09/12/18 08:33 92 Room Air 09/12/18 08:28 92 Room Air 09/12/18 08:00 99.5 82 20 109/56 (73) 97 Room Air 09/12/18 04:00 97.3 81 20 102/53 (69) 96 Room Air 09/12/18 00:00 99.0 83 20 113/57 (75) 96 Room Air 09/11/18 20:00 99.1 87 18 112/59 (76) 97 Room Air 09/11/18 20:00 Nasal Cannula 3.00 09/11/18 16:00 98.6 87 16 117/65 (82) 100 Room Air I & O 09/12/18 07:00 Intake Total 0 ml Output Total 1205 ml Balance -1205 ml Capillary Refill : General Appearance: No Apparent Distress HEENT: PERRL/EOMI Neck: Full Range of Motion Respiratory: Chest Non Tender, Lungs Clear, Normal Breath Sounds Cardiovascular: Regular Rate, Rhythm Gastrointestinal: normal bowel sounds, non tender, soft Extremity: Normal Capillary Refill Neurologic/Psychiatric: Alert, Oriented x3 Skin: Normal Color Lymphatic: No Adenopathy Results Lab Laboratory Tests 09/12/18 05:00: Sodium Level 141, Potassium Level 4.4, Chloride Level 105, Carbon Dioxide Level 27, Anion Gap 9, Blood Urea Nitrogen 19H, Creatinine 0.77, Estimat Glomerular Filtration Rate > 60, BUN/Creatinine Ratio 25, Glucose Level 111H, Calcium Level 9.7, Corrected Calcium 10.3H, Phosphorus Level 4.0, Magnesium Level 2.3, Total Bilirubin 0.3, Aspartate Amino Transf (AST/SGOT) 20, Alanine Aminotransferase (ALT/SGPT) 17, Alkaline Phosphatase 82, Total Protein 6.5, Albumin 3.3 09/12/18 05:05: Glucometer 106 Assessment/Plan Assessment/Plan Assess & Plan/Chief Complaint contained gastric leak. conservative management with NPO, TPN, and abx. monitor drain output. repaeat upper GI did show continued contained leak. gave option of continued conservative therapy with NPO, bowel rest and TPN which she would like to do. will proceed with another upper GI monday and if continued leak then GI referral for covered stent placement. current call out for [facility] transfer for endoscopic stent placement. state pt insurance out of network and would have to be a self pay. in the appeals process. will continue current care for now. maybe repeat upper GI on monday. Clinical Quality Measures DVT/VTE Risk/Contraindication: Risk Factor Score Per Nursin RFS Level Per Nursing on Admit: 4+=Very High MATILDE ADAMS MD Sep 12, 2018 15:03
[2018-09-12] MEDS ORDERED: ALPRAZolam 1 MG (XANAX) TAB PO PRN (15:15)
[2018-09-12] MEDS: SODIUM ACETATE IV SCH ×11 (16:39)
[2018-09-12] MEDS: SODIUM CHLORIDE IV SCH ×11 (16:39)
[2018-09-12] MEDS: [UNRECOGNIZED DRUG - OTHER] IV SCH ×11 (16:39)
[2018-09-12] MEDS: 1/2 NS IV SOLUTION 1,000 ML IV SCH (16:39)
[2018-09-12 16:47] VITALS: BP 118/57
[2018-09-12 20:00] VITALS: BP 133/64
[2018-09-12] MEDS: TOVIAZ 8 MG PO SCH (21:43)
[2018-09-12] MEDS: FLUTICASONE NASAL SPRAY (FLONASE) 16 GM BTL NS SCH (21:43)
[2018-09-12] MEDS: rOPINIRole 1 MG (REQUIP) TABLET PO SCH (21:44)
[2018-09-12] MEDS: traZODone 150 MG (DESYREL) TABLET PO SCH (21:45)
[2018-09-12] MEDS: SIMvastatin 20 MG (ZOCOR) TAB PO SCH (21:45)
[2018-09-13] VITALS: BP 102/51
[2018-09-13] MEDS: metroNIDAZOLE 500MG/100ML IVPB 100 ML IV SCH (03:27)
[2018-09-13] MEDS: THYROID (ARMOUR) 60 MG TABLET PO SCH (06:21)
[2018-09-13] MEDS: RT-ADVAIR HFA 115/21 MCG PER PUFF IH SCH (07:21)
[2018-09-13] MEDS: UMECLIDINIUM BROMIDE (INCRUSE ELLIPTA) 7'S IH SCH (07:21)
[2018-09-13 08:56] VITALS: BP 114/74
[2018-09-13] MEDS: ARIPIPRAZOLE 10 MG (ABILIFY) TAB PO SCH (12:11)
[2018-09-13] MEDS: GABAPENTIN 400 MG (NEURONTIN) CAP PO SCH ×3 (12:11→20:27)
[2018-09-13] MEDS: PANTOPRAZOLE 40 MG (PROTONIX) VIAL IV SCH (12:12)
[2018-09-13] MEDS: SAVELLA 100 MG PO SCH ×2 (12:13→20:28)
[2018-09-13] MEDS: fentaNYL INJECTION 100 MCG/2 ML AMP IV PRN (12:21)
--- NOTE | 2018-09-13 13:42 | Progress Note (SOAP) ---
Subjective Date Seen by a Provider: Sep 13, 2018 Time Seen by a Provider: 13:30 Subjective/Events-last exam Patient reports doing ok. No N/V. No Fever/chills. minimal abdominal tenderness in LUQ. Having liquid BMs and ambulating. Objective Exam Vital Signs Date Time Temp Pulse Resp B/P (MAP) Pulse Ox O2 Delivery O2 Flow Rate FiO2 09/13/18 08:56 98.2 87 20 114/74 (87) 97 Nasal Cannula 3.00 09/13/18 08:44 92 Room Air 3.00 09/13/18 07:22 93 Room Air 09/13/18 00:00 97.0 82 16 102/51 (68) 94 NIV CPAP 09/12/18 20:00 98.6 87 18 133/64 (87) 95 Room Air 09/12/18 20:00 92 Room Air 3.00 09/12/18 20:00 92 Room Air 3.00 09/12/18 16:47 98.2 87 18 118/57 (77) 95 Room Air 09/12/18 15:30 Room Air 3.00 I & O 09/13/18 07:00 Intake Total 1150 ml Output Total 1720 ml Balance -570 ml Capillary Refill : General Appearance: No Apparent Distress, WD/WN Neck: Full Range of Motion, Normal Inspection, Non Tender, Supple Respiratory: Lungs Clear, Normal Breath Sounds, No Accessory Muscle Use, No Respiratory Distress Cardiovascular: Regular Rate, Rhythm, No Edema Gastrointestinal: normal bowel sounds, soft, tenderness (LUQ), other (NATHEN drain still has some cloudy drainage but becoming more serous.) Extremity: Normal Capillary Refill, Normal Inspection, Normal Range of Motion Neurologic/Psychiatric: Alert, Oriented x3 Skin: Normal Color, Warm/Dry, Other (Lap incisions C/D/I.) Results Lab Laboratory Tests 09/13/18 06:15: Glucometer 134H Assessment/Plan Assessment/Plan Assess & Plan/Chief Complaint contained gastric leak. conservative management with NPO, TPN, and abx. monitor drain output. repaeat upper GI did show continued contained leak on 09/10/18 gave option of continued conservative therapy with NPO, bowel rest and TPN which she would like to do. current call out for [facility] transfer for endoscopic stent placement. state pt insurance out of network and would have to be a self pay. in the appeals process. will continue current care for now. maybe repeat upper GI on monday and if continued leak the possible GI referral for covered stent placement. Clinical Quality Measures DVT/VTE Risk/Contraindication: Risk Factor Score Per Nursin RFS Level Per Nursing on Admit: 4+=Very High SUSAN MURRAY CONTOUR PATH TAPE MILL OPERATOR Sep 13, 2018 13:42
[2018-09-13 16:00] VITALS: BP 106/69
[2018-09-13] MEDS: SODIUM ACETATE IV SCH ×11 (17:00)
[2018-09-13] MEDS: [UNRECOGNIZED DRUG - OTHER] IV SCH ×11 (17:00)
[2018-09-13] MEDS: SODIUM CHLORIDE IV SCH ×11 (17:00)
[2018-09-13] MEDS: 1/2 NS IV SOLUTION 1,000 ML IV SCH (17:00)
[2018-09-13] MEDS: rOPINIRole 1 MG (REQUIP) TABLET PO SCH (20:27)
[2018-09-13] MEDS: traZODone 150 MG (DESYREL) TABLET PO SCH (20:27)
[2018-09-13] MEDS: SIMvastatin 20 MG (ZOCOR) TAB PO SCH (20:27)
[2018-09-13] MEDS: TOVIAZ 8 MG PO SCH (20:28)
[2018-09-13] MEDS: FLUTICASONE NASAL SPRAY (FLONASE) 16 GM BTL NS SCH (20:28)
[2018-09-14] VITALS: BP 117/58
[2018-09-14] MEDS: THYROID (ARMOUR) 60 MG TABLET PO SCH (06:24)
[2018-09-14] MEDS: RT-ADVAIR HFA 115/21 MCG PER PUFF IH SCH (06:52)
[2018-09-14] MEDS: UMECLIDINIUM BROMIDE (INCRUSE ELLIPTA) 7'S IH SCH (06:53)
[2018-09-14 07:28] LABS: HEMOGLOBIN 10.1 G/DL (11.5-16.0); MEAN PLATELET VOLUME 10.9 FL (7.4-10.4); RED BLOOD COUNT 3.99 10^6/uL (4.35-5.85); RED CELL DISTRIBUTION WIDTH 14.3 % (10.0-14.5); WHITE BLOOD COUNT 6.2 10^3/uL (4.3-11.0)
[2018-09-14 08:09] VITALS: BP 91/59
[2018-09-14] MEDS: GABAPENTIN 400 MG (NEURONTIN) CAP PO SCH ×3 (08:50→21:10)
[2018-09-14] MEDS: SAVELLA 100 MG PO SCH ×2 (08:50→21:11)
[2018-09-14] MEDS: ARIPIPRAZOLE 10 MG (ABILIFY) TAB PO SCH (08:51)
[2018-09-14] MEDS: PANTOPRAZOLE 40 MG (PROTONIX) VIAL IV SCH (08:52)
--- NOTE | 2018-09-14 10:55 | Progress Note (SOAP) ---
Subjective Date Seen by a Provider: Sep 14, 2018 Time Seen by a Provider: 10:00 Subjective/Events-last exam doing well. no complaints. pain controlled. no SOB. minimal NATHEN output Objective Exam Vital Signs Date Time Temp Pulse Resp B/P (MAP) Pulse Ox O2 Delivery O2 Flow Rate FiO2 09/14/18 08:09 97.8 83 16 91/59 (70) 98 Nasal Cannula 3.00 09/14/18 08:00 Nasal Cannula 3.00 09/14/18 06:52 97 Nasal Cannula 3.00 09/14/18 00:00 98.9 78 20 117/58 (77) 94 NIV CPAP 09/13/18 23:52 Nasal Cannula 33.00 09/13/18 20:00 Nasal Cannula 3.00 09/13/18 16:00 97.9 91 18 106/69 (81) 97 Nasal Cannula 3.00 I & O 09/14/18 07:00 Intake Total 30 ml Output Total 2415 ml Balance -2385 ml Capillary Refill : General Appearance: No Apparent Distress HEENT: PERRL/EOMI Neck: Full Range of Motion Respiratory: Chest Non Tender, Normal Breath Sounds Cardiovascular: Regular Rate, Rhythm Gastrointestinal: normal bowel sounds, soft Extremity: Normal Capillary Refill Neurologic/Psychiatric: Alert, Oriented x3 Skin: Normal Color Lymphatic: No Adenopathy Results Lab Laboratory Tests 09/14/18 05:15: Glucometer 115H 09/14/18 06:46: White Blood Count 6.2, Red Blood Count 3.99L, Hemoglobin 10.1L, Hematocrit 34L, Mean Corpuscular Volume 85, Mean Corpuscular Hemoglobin 25, Mean Corpuscular Hemoglobin Concent 30L, Red Cell Distribution Width 14.3, Platelet Count 301, Mean Platelet Volume 10.9H Assessment/Plan Assessment/Plan Assess & Plan/Chief Complaint contained gastric leak. conservative management with NPO, TPN, and abx. monitor drain output. repaeat upper GI did show continued contained leak. gave option of continued conservative therapy with NPO, bowel rest and TPN which she would like to do. will proceed with another upper GI monday and if continued leak then GI referral for covered stent placement. current call out for [facility] transfer for endoscopic stent placement. state pt insurance out of network and would have to be a self pay. in the appeals process. will continue current care for now. maybe repeat gastrograffin upper GI on monday(09/17). Clinical Quality Measures DVT/VTE Risk/Contraindication: Risk Factor Score Per Nursin RFS Level Per Nursing on Admit: 4+=Very High MATILDE ADAMS MD Sep 14, 2018 10:55
[2018-09-14 16:00] VITALS: BP 103/69
[2018-09-14] MEDS: [UNRECOGNIZED DRUG - OTHER] IV SCH ×11 (16:53)
[2018-09-14] MEDS: SODIUM CHLORIDE IV SCH ×11 (16:53)
[2018-09-14] MEDS: SODIUM ACETATE IV SCH ×11 (16:53)
[2018-09-14] MEDS: 1/2 NS IV SOLUTION 1,000 ML IV SCH (16:53)
[2018-09-14 17:40] VITALS: BP 103/69
[2018-09-14] MEDS: SIMvastatin 20 MG (ZOCOR) TAB PO SCH (21:10)
[2018-09-14] MEDS: traZODone 150 MG (DESYREL) TABLET PO SCH (21:10)
[2018-09-14] MEDS: FLUTICASONE NASAL SPRAY (FLONASE) 16 GM BTL NS SCH (21:10)
[2018-09-14] MEDS: TOVIAZ 8 MG PO SCH (21:11)
[2018-09-14] MEDS: metroNIDAZOLE 500MG/100ML IVPB 100 ML IV SCH (21:13)
[2018-09-14] MEDS: rOPINIRole 1 MG (REQUIP) TABLET PO SCH (21:19)
[2018-09-14] MEDS: LEVOFLOXACIN 500 MG/100 ML IV 100 ML IV SCH (22:44)
[2018-09-15] VITALS: BP_SYST 136; BP_SYST 169; BP_DIAS 63; BP_DIAS 73
[2018-09-15] MEDS: THYROID (ARMOUR) 60 MG TABLET PO SCH (05:31)
[2018-09-15 07:45] VITALS: BP 116/59
[2018-09-15] MEDS: metroNIDAZOLE 500MG/100ML IVPB 100 ML IV SCH ×2 (09:06→21:20)
[2018-09-15] MEDS: PANTOPRAZOLE 40 MG (PROTONIX) VIAL IV SCH (09:06)
[2018-09-15] MEDS: GABAPENTIN 400 MG (NEURONTIN) CAP PO SCH ×3 (09:06→21:21)
[2018-09-15] MEDS: ARIPIPRAZOLE 10 MG (ABILIFY) TAB PO SCH (09:06)
[2018-09-15] MEDS: SAVELLA 100 MG PO SCH ×2 (09:07→21:20)
[2018-09-15] MEDS: RT-ADVAIR HFA 115/21 MCG PER PUFF IH SCH (09:46)
[2018-09-15] MEDS: UMECLIDINIUM BROMIDE (INCRUSE ELLIPTA) 7'S IH SCH (09:47)
--- NOTE | 2018-09-15 14:45 | Progress Note ---
Subjective Date Seen by a Provider: Sep 15, 2018 Time Seen by a Provider: 09:25 Subjective/Events-last exam Doing well. NOt having any pain or discomfort. Patient Minimal output from drain. NPO. TPN No new complaints. Objective Exam Vital Signs Date Time Temp Pulse Resp B/P (MAP) Pulse Ox O2 Delivery O2 Flow Rate FiO2 09/15/18 09:47 96 Room Air 09/15/18 08:00 96 Room Air 09/15/18 07:45 98.2 80 18 116/59 (78) 95 Room Air 09/15/18 00:00 97.8 92 18 136/63 (87) 95 NIV CPAP 1.50 09/14/18 20:00 Nasal Cannula 3.00 09/14/18 17:40 98.0 86 18 103/69 (80) 92 Room Air 09/14/18 16:00 98.0 86 18 103/69 (80) 92 Room Air I & O 09/15/18 07:00 Intake Total 260 ml Output Total 2205 ml Balance -1945 ml Capillary Refill : General Appearance: No Apparent Distress HEENT: PERRL/EOMI Neck: Full Range of Motion Respiratory: Chest Non Tender, Normal Breath Sounds Cardiovascular: Regular Rate, Rhythm Gastrointestinal: normal bowel sounds, soft (miimal output from drain) Extremity: Normal Capillary Refill Neurologic/Psychiatric: Alert, Oriented x3 Skin: Normal Color Lymphatic: No Adenopathy Results Lab Laboratory Tests 09/15/18 05:21: Glucometer 119H Assessment/Plan Assessment/Plan Assessment/Plan contained gastric leak. conservative management with NPO, TPN, and abx. monitor drain output. repaeat upper GI did show continued contained leak. gave option of continued conservative therapy with NPO, bowel rest and TPN which she would like to do. will proceed with another upper GI monday and if continued leak then GI referral for covered stent placement. current call out for [facility] transfer for endoscopic stent placement. state pt insurance out of network and would have to be a self pay. in the appeals process. will continue current care for now. maybe repeat gastrograffin upper GI on monday(09/17). Clinical Quality Measures DVT/VTE Risk/Contraindication: Risk Factor Score Per Nursin RFS Level Per Nursing on Admit: 4+=Very High MIGUEL ANGEL CORONA DO Sep 15, 2018 14:45
[2018-09-15 16:00] VITALS: BP 120/77
[2018-09-15] MEDS: [UNRECOGNIZED DRUG - OTHER] IV SCH ×11 (17:13)
[2018-09-15] MEDS: SODIUM ACETATE IV SCH ×11 (17:13)
[2018-09-15] MEDS: SODIUM CHLORIDE IV SCH ×11 (17:13)
[2018-09-15] MEDS: 1/2 NS IV SOLUTION 1,000 ML IV SCH (17:13)
[2018-09-15] MEDS: TOVIAZ 8 MG PO SCH (21:19)
[2018-09-15] MEDS: FLUTICASONE NASAL SPRAY (FLONASE) 16 GM BTL NS SCH (21:19)
[2018-09-15] MEDS: LEVOFLOXACIN 500 MG/100 ML IV 100 ML IV SCH (21:20)
[2018-09-15] MEDS: traZODone 150 MG (DESYREL) TABLET PO SCH (21:20)
[2018-09-15] MEDS: SIMvastatin 20 MG (ZOCOR) TAB PO SCH (21:21)
[2018-09-15] MEDS: rOPINIRole 1 MG (REQUIP) TABLET PO SCH (21:21)
[2018-09-15 23:50] VITALS: BP 103/58
[2018-09-16] MEDS: THYROID (ARMOUR) 60 MG TABLET PO SCH (06:10)
[2018-09-16] MEDS: RT-ADVAIR HFA 115/21 MCG PER PUFF IH SCH (07:12)
[2018-09-16] MEDS: UMECLIDINIUM BROMIDE (INCRUSE ELLIPTA) 7'S IH SCH (07:13)
[2018-09-16 07:50] LABS: ALANINE AMINOTRANSFERASE 17 U/L (0-55); ALBUMIN 3.4 GM/DL (3.2-4.5); ALKALINE PHOSPHATASE 96 U/L (40-136); BILIRUBIN,TOTAL 0.3 MG/DL (0.1-1.0); BUN/CREATININE RATIO 27; CALCIUM 9.5 MG/DL (8.5-10.1); CARBON DIOXIDE 27 MMOL/L (21-32); CHLORIDE 107 MMOL/L (98-107); CREATININE SERUM 0.75 MG/DL (0.60-1.30); GFR ESTIMATED > 60; GLUCOSE 108 MG/DL (70-105); MAGNESIUM 2.2 MG/DL (1.8-2.4); POTASSIUM 4.1 MMOL/L (3.6-5.0); SODIUM 143 MMOL/L (135-145); TOTAL PROTEIN 6.7 GM/DL (6.4-8.2)
[2018-09-16 08:11] VITALS: BP 108/58
[2018-09-16] MEDS: SAVELLA 100 MG PO SCH ×2 (08:22→21:36)
[2018-09-16] MEDS: PANTOPRAZOLE 40 MG (PROTONIX) VIAL IV SCH (08:22)
[2018-09-16] MEDS: GABAPENTIN 400 MG (NEURONTIN) CAP PO SCH ×3 (08:22→21:33)
[2018-09-16] MEDS: ARIPIPRAZOLE 10 MG (ABILIFY) TAB PO SCH (08:22)
[2018-09-16] MEDS: metroNIDAZOLE 500MG/100ML IVPB 100 ML IV SCH ×2 (08:22→21:39)
--- NOTE | 2018-09-16 10:18 | Progress Note ---
Subjective Date Seen by a Provider: Sep 16, 2018 Time Seen by a Provider: 10:16 Subjective/Events-last exam doing well. npo. minimal output ida. denies n/v fever sweats chills shortness of breath or chest pain. and dog at bedside. Objective Exam Vital Signs Date Time Temp Pulse Resp B/P (MAP) Pulse Ox O2 Delivery O2 Flow Rate FiO2 09/16/18 08:11 97.5 78 20 108/58 (75) 94 Room Air 09/16/18 08:00 96 Room Air 09/16/18 07:15 92 Room Air 09/15/18 23:50 98.6 82 20 103/58 (73) 92 Room Air 09/15/18 20:00 96 Room Air 09/15/18 19:10 Room Air 09/15/18 16:00 97.0 84 20 120/77 (91) 98 Room Air I & O 09/16/18 07:00 Output Total 3750 ml Balance -3750 ml Capillary Refill : General Appearance: No Apparent Distress HEENT: PERRL/EOMI Neck: Full Range of Motion Respiratory: Chest Non Tender, Normal Breath Sounds Cardiovascular: Regular Rate, Rhythm Gastrointestinal: normal bowel sounds, soft (miimal output from drain, incisions c/d/i) Extremity: Normal Capillary Refill Neurologic/Psychiatric: Alert, Oriented x3 Skin: Normal Color Lymphatic: No Adenopathy Results Lab Laboratory Tests 09/16/18 05:55: Glucometer 118H 09/16/18 06:10: Sodium Level 143, Potassium Level 4.1, Chloride Level 107, Carbon Dioxide Level 27, Anion Gap 9, Blood Urea Nitrogen 20H, Creatinine 0.75, Estimat Glomerular Filtration Rate > 60, BUN/Creatinine Ratio 27, Glucose Level 108H, Calcium Level 9.5, Corrected Calcium 10.0, Phosphorus Level 4.0, Magnesium Level 2.2, Total Bilirubin 0.3, Aspartate Amino Transf (AST/SGOT) 22, Alanine Aminotransferase (ALT/SGPT) 17, Alkaline Phosphatase 96, Total Protein 6.7, Albumin 3.4 Assessment/Plan Assessment/Plan Assessment/Plan contained gastric leak. conservative management with NPO, TPN, and abx. monitor drain output. repeat upper GI did show continued contained leak. gave option of continued conservative therapy with NPO, bowel rest and TPN which she would like to do. will continue current care for now. maybe repeat gastrograffin upper GI on monday(09/17). Clinical Quality Measures DVT/VTE Risk/Contraindication: Risk Factor Score Per Nursin RFS Level Per Nursing on Admit: 4+=Very High MIGUEL ANGEL CORONA DO Sep 16, 2018 10:18
[2018-09-16 16:00] VITALS: BP 144/84
[2018-09-16] MEDS: [UNRECOGNIZED DRUG - OTHER] IV SCH ×11 (16:50)
[2018-09-16] MEDS: 1/2 NS IV SOLUTION 1,000 ML IV SCH (16:50)
[2018-09-16] MEDS: SODIUM ACETATE IV SCH ×11 (16:50)
[2018-09-16] MEDS: SODIUM CHLORIDE IV SCH ×11 (16:50)
[2018-09-16] MEDS: traZODone 150 MG (DESYREL) TABLET PO SCH (21:33)
[2018-09-16] MEDS: rOPINIRole 1 MG (REQUIP) TABLET PO SCH (21:33)
[2018-09-16] MEDS: SIMvastatin 20 MG (ZOCOR) TAB PO SCH (21:33)
[2018-09-16] MEDS: FLUTICASONE NASAL SPRAY (FLONASE) 16 GM BTL NS SCH (21:35)
[2018-09-16] MEDS: TOVIAZ 8 MG PO SCH (21:36)
[2018-09-16] MEDS: LEVOFLOXACIN 500 MG/100 ML IV 100 ML IV SCH (22:51)
[2018-09-17] VITALS: BP 104/59
[2018-09-17] MEDS: THYROID (ARMOUR) 60 MG TABLET PO SCH (06:24)
[2018-09-17] MEDS: RT-ADVAIR HFA 115/21 MCG PER PUFF IH SCH (07:18)
[2018-09-17] MEDS: UMECLIDINIUM BROMIDE (INCRUSE ELLIPTA) 7'S IH SCH (07:19)
[2018-09-17 08:00] VITALS: BP 102/67
[2018-09-17] MEDS: metroNIDAZOLE 500MG/100ML IVPB 100 ML IV SCH ×2 (08:07→21:04)
[2018-09-17] MEDS: GABAPENTIN 400 MG (NEURONTIN) CAP PO SCH ×3 (08:08→21:05)
[2018-09-17] MEDS: PANTOPRAZOLE 40 MG (PROTONIX) VIAL IV SCH (08:08)
[2018-09-17] MEDS: SAVELLA 100 MG PO SCH ×2 (08:08→21:07)
[2018-09-17] MEDS: ARIPIPRAZOLE 10 MG (ABILIFY) TAB PO SCH (08:08)
--- NOTE | 2018-09-17 15:59 | Diagnostic Imaging Report ---
INDICATION: Drain placement. TIME OF EXAMINATION: 3:46 PM. COMPARISON: 09/06/2018. FINDINGS: The right upper extremity PICC line remains in place with the tip overlying the SVC. Linear atelectasis or scarring in the left midlung is unchanged. The remaining lung mcfarlane appear to be fairly clear. No significant effusion or pneumothorax is seen. IMPRESSION: Stable chest. Dictated by: Dictated on workstation # [id number]
[2018-09-17 16:00] VITALS: BP 116/58
[2018-09-17] MEDS ORDERED: LIDOCAINE 1% INJ 20 ML 20 ML VIAL ONE (17:04)
[2018-09-17] MEDS: SODIUM CHLORIDE IV SCH ×11 (17:14)
[2018-09-17] MEDS: SODIUM ACETATE IV SCH ×11 (17:14)
[2018-09-17] MEDS: [UNRECOGNIZED DRUG - OTHER] IV SCH ×11 (17:14)
[2018-09-17] MEDS: fentaNYL INJECTION 100 MCG/2 ML AMP IV PRN (17:16)
[2018-09-17] MEDS: 1/2 NS IV SOLUTION 1,000 ML IV SCH (17:19)
--- NOTE | 2018-09-17 18:27 | Progress Note (SOAP) ---
Subjective Date Seen by a Provider: Sep 17, 2018 Time Seen by a Provider: 18:00 Subjective/Events-last exam drain inadvertently pulled today. minimal output. tolerating 30ml clear liquids per 30 min. Objective Exam Vital Signs Date Time Temp Pulse Resp B/P (MAP) Pulse Ox O2 Delivery O2 Flow Rate FiO2 09/17/18 08:10 Room Air 09/17/18 08:00 98.7 80 20 102/67 (79) 94 Room Air 09/17/18 07:19 96 Room Air 09/17/18 00:00 98.7 80 20 104/59 (74) 92 Nasal Cannula 2.00 09/16/18 20:00 96 Room Air 09/16/18 19:36 Room Air I & O 09/17/18 07:00 Intake Total 870 ml Output Total 1610 ml Balance -740 ml Capillary Refill : General Appearance: No Apparent Distress HEENT: PERRL/EOMI Neck: Full Range of Motion Respiratory: Chest Non Tender, Lungs Clear, Normal Breath Sounds Cardiovascular: Regular Rate, Rhythm Gastrointestinal: non tender, soft Extremity: Normal Capillary Refill Neurologic/Psychiatric: Alert, Oriented x3 Skin: Normal Color Lymphatic: No Adenopathy Results Lab Laboratory Tests 09/17/18 05:20: Glucometer 123H Assessment/Plan Assessment/Plan Assess & Plan/Chief Complaint contained gastric leak. conservative management with NPO, TPN, and abx. monitor drain output. repaeat upper GI did show continued contained leak. gave option of continued conservative therapy with NPO, bowel rest and TPN which she would like to do. will proceed with another upper GI monday and if continued leak then GI referral for covered stent placement. current call out for [facility] transfer for endoscopic stent placement. state pt insurance out of network and would have to be a self pay. in the appeals process. will continue current care for now. maybe repeat gastrograffin upper GI on monday(09/17). Clinical Quality Measures DVT/VTE Risk/Contraindication: Risk Factor Score Per Nursin RFS Level Per Nursing on Admit: 4+=Very High MATILDE ADAMS MD Sep 17, 2018 18:27
[2018-09-17] MEDS: SIMvastatin 20 MG (ZOCOR) TAB PO SCH (21:04)
[2018-09-17] MEDS: traZODone 150 MG (DESYREL) TABLET PO SCH (21:04)
[2018-09-17] MEDS: rOPINIRole 1 MG (REQUIP) TABLET PO SCH (21:04)
[2018-09-17] MEDS: FLUTICASONE NASAL SPRAY (FLONASE) 16 GM BTL NS SCH (21:06)
[2018-09-17] MEDS: TOVIAZ 8 MG PO SCH (21:07)
[2018-09-17] MEDS: LEVOFLOXACIN 500 MG/100 ML IV 100 ML IV SCH (22:07)
[2018-09-18] VITALS: BP 116/62
[2018-09-18] MEDS: THYROID (ARMOUR) 60 MG TABLET PO SCH (06:43)
[2018-09-18] MEDS: RT-ADVAIR HFA 115/21 MCG PER PUFF IH SCH (07:42)
[2018-09-18] MEDS: UMECLIDINIUM BROMIDE (INCRUSE ELLIPTA) 7'S IH SCH (07:43)
[2018-09-18 08:19] VITALS: BP 123/68
[2018-09-18] MEDS: ARIPIPRAZOLE 10 MG (ABILIFY) TAB PO SCH (08:35)
[2018-09-18] MEDS: GABAPENTIN 400 MG (NEURONTIN) CAP PO SCH ×2 (08:35→13:06)
[2018-09-18] MEDS: metroNIDAZOLE 500MG/100ML IVPB 100 ML IV SCH (08:35)
[2018-09-18] MEDS: PANTOPRAZOLE 40 MG (PROTONIX) VIAL IV SCH (08:35)
[2018-09-18] MEDS: SAVELLA 100 MG PO SCH (08:36)
[2018-09-18] MEDS ORDERED: DIATRIZOATE MEGLUM/SODIUM 37% 120 ML (GASTROGRAFIN) PO ONE (14:15)
--- NOTE | 2018-09-18 14:47 | Diagnostic Imaging Report ---
INDICATION: Status post gastric sleeve surgery with a small leak noted on the prior upper GI studies. This study is performed for followup. COMPARISON: 09/10/2018 and 09/06/2018. TECHNIQUE: A small volume of Gastrografin contrast was ingested by the patient and fluoroscopic spot films over the lower esophagus and upper abdomen were performed. A total of 1 minute 50 seconds of fluoroscopy was utilized. FINDINGS: The distal esophagus is unremarkable. There are postsurgical changes of gastric sleeve surgery. The previously noted region of leak extending to the left from the fundal portion of the sleeve is no longer appreciated. No extraluminal collections of contrast are seen on today's exam. The patient was placed in multiple positions including Trendelenburg and left decubitus but still no extravasation was seen. IMPRESSION: Unremarkable limited upper GI study with Gastrografin contrast. The previously noted gastric leak is no longer appreciated. Dictated by: Dictated on workstation # [id number]
[2018-09-18 16:00] VITALS: BP 128/67
--- NOTE | 2018-09-18 16:10 | Progress Note (SOAP) ---
Subjective Date Seen by a Provider: Sep 18, 2018 Time Seen by a Provider: 16:00 Subjective/Events-last exam doing well. tolerating clear. no leak on upper GI contrast study. having normal BM's. no fever/chills. Objective Exam Vital Signs Date Time Temp Pulse Resp B/P (MAP) Pulse Ox O2 Delivery O2 Flow Rate FiO2 09/18/18 08:30 Room Air 09/18/18 08:19 98.4 80 20 123/68 (86) 96 Room Air 09/18/18 07:42 96 Room Air 09/18/18 00:00 98.4 75 20 116/62 (80) 96 Room Air 09/17/18 20:10 Room Air I & O 09/18/18 07:00 Intake Total 1140 ml Output Total 2350 ml Balance -1210 ml Capillary Refill : Less Than 3 Seconds General Appearance: No Apparent Distress HEENT: PERRL/EOMI Neck: Full Range of Motion Respiratory: Chest Non Tender, Lungs Clear, Normal Breath Sounds Cardiovascular: Regular Rate, Rhythm Gastrointestinal: normal bowel sounds, non tender, soft Extremity: Normal Capillary Refill Neurologic/Psychiatric: Alert, Oriented x3 Skin: Normal Color Lymphatic: No Adenopathy Results Lab Laboratory Tests 09/18/18 06:03: Glucometer 122H Assessment/Plan Assessment/Plan Assess & Plan/Chief Complaint contained gastric leak. conservative management with NPO, TPN, and abx. monitor drain output. repaeat upper GI did show continued contained leak. gave option of continued conservative therapy with NPO, bowel rest and TPN which she would like to do. will proceed with another upper GI monday and if continued leak then GI referral for covered stent placement. current call out for [facility] transfer for endoscopic stent placement. state pt insurance out of network and would have to be a self pay. in the appeals process. will continue current care for now. maybe repeat gastrograffin upper GI on monday(09/17). home today. follow phase 1 clear liquid diet for 1 week then will see in office. Clinical Quality Measures DVT/VTE Risk/Contraindication: Risk Factor Score Per Nursin RFS Level Per Nursing on Admit: 4+=Very High MATILDE ADAMS MD Sep 18, 2018 16:10
--- NOTE | 2018-09-18 16:14 | Discharge Inst-Surgical ---
D/C Lap Instructions-BRYAN New, Converted, or Re-Newed RX: RX on Chart Follow Up next week (09/27). Activity as tolerated No driving for 24 hours No driving while on pain medications Incentive Spirometry use every 2 hours while awake Phase 1 clear liquid diet(60ml q 30 min) until seen in the office. Symptoms to Report: Fever over 101 degree F, Nausea/Vomiting Infection Signs and Symptoms to report: Increased redness, Foul odor of wound, Increased drainage Bathing instructions: May shower Operative Area Clean/Dry; Keep incision clean/dry If any problems/questions: Contact your physician or go to Emergency Room MATILDE ADAMS MD Sep 18, 2018 16:14
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
== END 2018-09-18 17:00 | disposition home or self-care (01) | DRG 394 ==
LOC: 4TH 13:35 → PREOBSVTOIN 13:38 → UNDODISIN 09-12 16:35
PROVIDERS: ADMIT Surgery; ATTEND Surgery
PROC: 02HV33Z Insertion of Infusion Device into Superior Vena Cava, Percutaneous Approach (ICD-10-PCS; principal; 2018-09-06)
DX: K95.89 Other complications of other bariatric procedure (principal); E66.01 Morbid (severe) obesity due to excess calories; Z68.42 Body mass index [BMI] 45.0-49.9, adult; G47.33 Obstructive sleep apnea (adult) (pediatric); E03.9 Hypothyroidism, unspecified; J43.9 Emphysema, unspecified; F41.9 Anxiety disorder, unspecified; F32.9 Major depressive disorder, single episode, unspecified; R60.9 Edema, unspecified; G47.00 Insomnia, unspecified; M79.7 Fibromyalgia; G25.81 Restless legs syndrome; M17.0 Bilateral primary osteoarthritis of knee; M16.0 Bilateral primary osteoarthritis of hip; E78.00 Pure hypercholesterolemia, unspecified; Z99.81 Dependence on supplemental oxygen; I10 Essential (primary) hypertension; G62.9 Polyneuropathy, unspecified; N31.9 Neuromuscular dysfunction of bladder, unspecified; K21.9 Gastro-esophageal reflux disease without esophagitis
CPT/HCPCS: 36415; 36569; 71045; 74241; 76937; 80053; 82962; 83735; 84100; 84134; 84478; 85027; 85610; 94640; 94760

== ENCOUNTER → 2018-09-06 | Outpatient (CLI) | payer BC ==
[~2018-09-06] MED LIST changes: +ARIP5TAB20 PO; +FLUT16SP22 NS; +GABA800T2 PO; +HYDR118S10 PO; +LAMO100T PO; +LEVO500T80 PO; +NYST15CR TOP; +ONDA4TAB10 PO; +ROPI4TAB5 PO; +[UNRECOGNIZED DRUG - OTHER] PO
--- NOTE | 2018-09-06 17:12 | Diagnostic Imaging Report ---
INDICATION: Patient is status post gastric sleeve approximately one week ago. Patient has raya-colored drainage from the drain. TECHNIQUE: The patient ingested Gastrografin contrast and imaging over the distal esophagus, stomach, and proximal small bowel was performed. 1 minute and 45 seconds of fluoroscopy was utilized. FINDINGS: Dramatic Critic radiograph shows a drain over the left abdomen. Multiple surgical jayla in the left abdomen from gastric sleeve are seen. The patient ingested the contrast without difficulty. The distal esophagus has a smooth contour. There is prompt emptying into the gastric sleeve. Gastric sleeve shows prompt emptying into the proximal small bowel. No obstruction is seen. No extravasation of contrast was visualized during real-time fluoroscopic observation. However, delayed KUB was obtained. On the delayed study, contrast is seen throughout the gastric sleeve as well as proximal small bowel loops. In addition, there is a small collection of contrast extending from the fundal portion of the sleeve towards the left. A small amount of contrast appears to collect around the tip of the patient's drain. No other regions of extravasation are identified. IMPRESSION: Findings consistent with small region of extravasation from the gastric sleeve in the most cephalic aspect near the fundus, as described. Contrast does track around the tip of the internal drain. Dr. Rueda was called with these results. Dictated by: Dictated on workstation # [id number]
== END ==
LOC: RAD 11:44
PROVIDERS: ATTEND Surgery
DX: R10.9 Unspecified abdominal pain (principal); Z98.84 Bariatric surgery status
CPT/HCPCS: 74241

== ENCOUNTER 2018-12-18 16:31 | Observation (INO) | payer BC ==
[~2018-12-18] VITALS: Ht 162.6 cm; Wt 106.6 kg
[~2018-12-18 16:31] MED LIST changes: +ARIP5TAB20 PO; +FLUT16SP22 NS; +GABA800T10 PO; +HYDR118S10 PO; +LAMO100T PO; +LEVO500T80 PO; +NYST15CR TOP; +ONDA4TAB10 PO; +ROPI4TAB5 PO; +[UNRECOGNIZED DRUG - OTHER] PO
--- OUTSIDE RECORDS SUMMARY | 2018-12-18 16:39 | XMS REPORT ---
Author Author Kiarra Ramos Organization [facility] Address [address] [place], [place] [address] Care Team Providers Care Design Analyst Name Role Phone Kiarra Ramos PCP Sean Marie PreferredProvider Allergies and Adverse Reactions Name Reaction Notes Albuterol tachycardia increases heart rate too much Percocet "head crawling" Adhesive Tape Plan of Treatment Planned Activity Comments Planned Date Planned Time Plan/Goal Mammography; bilateral 11/13/2017 12:00 AM CBC With Auto Differential 01/08/2013 12:00 AM Cyanocobalamin measurement 07/31/2018 12:00 AM Thiamine measurement 07/31/2018 12:[address] ABD AND PELVIS W/WO CONTRAST 11/01/2018 12:00 AM EKG (12-lead electrocardiogram) 06/26/2013 12:00 AM Abdomen 2View Decub/Upright- MOB 12/18/2018 12:[address] ABD AND PELVIS W/CONTRAST 12/18/2018 12:00 AM fibromyalgia, RLS EKG (12-lead electrocardiogram) 04/01/2015 12:00 AM Medications Active Name Start Date Estimated Completion Date SIG Comments pravastatin 20 mg oral tablet 02/03/2014 TAKE ONE TABLET BY MOUTH EVERY DAY AT BEDTIME baclofen 10 mg oral tablet 08/22/2014 take 1 tablet by oral route 3 times a day as needed ropinirole 2 mg oral tablet 07/13/2015 TAKE ONE TABLET BY MOUTH ONCE DAILY AT BEDTIME furosemide 40 mg oral tablet 09/21/2015 TAKE ONE TABLET BY MOUTH ONCE DAILY IN THE MORNING NEEDED pantoprazole 40 mg oral tablet,delayed release (DR/EC) [...] TAKE ONE TABLET BY MOUTH ONCE DAILY Savella 50 mg oral tablet take 1 tablet (50 mg) by oral route 2 times per day trazodone 150 mg oral tablet take 1 tablet at bedtime aripiprazole 5 mg oral tablet 05/14/2018 TAKE 1 TABLET BY MOUTH ONCE DAILY nystatin 100,000 unit/gram topical cream 07/20/2018 apply to the affected area(s) by topical route 3 times per day NITRATE OPERATOR Thyroid 60 mg oral tablet 08/06/2018 TAKE ONE TABLET BY MOUTH ONCE DAILY gabapentin 600 mg oral tablet take 1 tablet (600 mg) by oral route 2 times per day Tessalon Perles 100 mg oral capsule 08/13/2018 take 1 capsule (100 mg) by oral route 3 times per day as needed for cough lamotrigine 100 mg oral tablet 08/27/2018 TAKE ONE TABLET BY MOUTH ONCE DAILY (FILL AFTER TAPER OF 25 MG IS COMPLETE) ropinirole 4 mg oral tablet 10/15/2018 TAKE ONE TABLET BY MOUTH ONCE DAILY 1-3 HOURS BEFORE BEDTIME Tussionex Pennkinetic ER 10-8 mg/5 mL oral suspension,extended rel 12 hr 2018 take 5 milliliters by oral route every 12 hours lovastatin 40 mg oral tablet 11/12/2018 TAKE 1 TABLET BY MOUTH ONCE DAILY AT BEDTIME trazodone 150 mg oral tablet 12/17/2018 TAKE 1 TABLET BY MOUTH AT BEDTIME [...] mg) by oral route every 4 hours Toviaz 8 mg oral tablet extended [...] once daily at bedtime for 30 days Augmentin 875-125 mg oral tablet 10/11/2018 10/18/2018 take 1 tablet by oral route every [...] by oral route 2 times per day [place] Thyroid 60 mg oral tablet 12/02/2013 take 1 tablet by oral route daily for 30 days [place] Thyroid 60 mg oral tablet 04/07/2014 TAKE ONE TABLET BY MOUTH ONCE DAILY milk thistle oral 11/24/2014 chromium picolinate oral 06/09/2014 Zofran ODT oral 10/09/2015 Dexilant 60 mg oral capsule,biphase delayed releas 07/09/2014 11/24/2014 TAKE ONE CAPSULE BY MOUTH EVERY DAY [place] Thyroid 60 mg oral tablet 08/04/2014 TAKE [...] oral route once daily at bedtime [place] 5-325 mg oral tablet 08/22/2014 11/24/2014 take [...] by topical route 2 times per day [place] Thyroid 60 mg oral tablet 07/13/2015 TAKE [...] daily in the morning for 30 days [place] Thyroid 60 mg oral tablet 07/11/2016 08/09/2017 [...] once daily with the evening meal [place] 10-325 mg oral tablet 01/19/2018 04/30/2018 take [...] Pain 650 mg oral tablet extended release 10/16/2018 take 2 tablets (1,300 mg) by oral route every 8 hours swallowing whole with water. Do not break, crush, dissolve and/or chew. Aleve 220 mg oral tablet 10/16/2018 take 2 tablet by oral route every 12 hours as needed Belsomra 10 mg oral tablet 04/30/2018 TAKE [...] TAKE 1 TABLET BY MOUTH AT BEDTIME armodafinil 150 mg oral tablet 06/25/2018 10/16/2018 TAKE 1 TABLET BY MOUTH ONCE DAILY IN THE MORNING Problem List Description Status Onset Hypothyroidism, acquired Active Allergic rhinitis; due to other allergen Active Chronic Obstructive Pulmonary Disease Active 10/24/2011 Osteoarthritis Active 11/14/2013 Hyperlipidemia, unspecified Active 06/11/2014 Vital Signs Date Time BP-Sys(mm[Hg] BP-Jocelyn(mm[Hg]) HR(bpm) RR(rpm) Temp WT HT HC BMI BSA BMI Percentile O2 Sat(%) 12/18/2018 9:48:00 AM 112 mmHg 62 mmHg 101 bpm 18 rpm 97.7 F 233 lbs 64 in 39.9939 kg/m 2.1846 m 98 % 11/01/2018 8:31:00 AM 130 mmHg 92 mmHg 101 bpm 18 rpm 97.4 F 247.5 lbs 64 in 42.48 kg/m2 2.25 m2 97 % 10/16/2018 2:02:00 PM 132 mmHg 76 mmHg 87 bpm 20 rpm 97.9 F 255.5 lbs 64 in 43.856 kg/m 2.2876 m 98 % 08/13/2018 12:57:00 PM 142 mmHg 90 mmHg 81 bpm 20 rpm 97.9 F 98 % 08/12/2018 1:18:00 PM 140 mmHg 72 mmHg 80 bpm 18 rpm 98.2 F 285.375 lbs 64 in 48.984 kg/m 2.4177 m 98 % 07/20/2018 8:34:00 AM 140 mmHg 88 mmHg 92 bpm 16 rpm 98.2 F 288 lbs 65 in 47.93 kg/m2 2.45 m2 99 % 05/22/2018 2:37:00 PM 146 mmHg [...] AM Decadron, Per 1 Mg [facility]# [address]-93 Reviewed 08/25/2015 12:00 AM Depo-Medrol, Per 80 Mg [facility]#[address]-57 Reviewed 08/25/2015 12:00 AM Rocephin 1 gram [facility]#7747-6141-29 Reviewed 10/09/2015 12:00 AM COMPLETE CBC W/AUTO DIFF WBC Reviewed 10/09/2015 12:00 AM COMPREHEN METABOLIC PANEL Reviewed 10/09/2015 12:00 AM GLYCOSYLATED HEMOGLOBIN TEST Reviewed 10/09/2015 12:00 AM ASSAY THYROID STIM HORMONE Reviewed 11/03/2015 8:54 AM URINALYSIS AUTO W/O SCOPE Reviewed 11/03/2015 12:[address] HEAD/BRAIN W/O & W/DYE Reviewed 11/17/2015 12:00 AM Rocephin 1 gram [facility]#2737-6286-69 Reviewed 08/05/2011 12:00 AM CHEST X-RAY 2VW FRONTAL&LATL Reviewed 12/09/2015 12:00 AM THER/PROPH/DIAG INJ SC/IM Reviewed 12/09/2015 12:00 AM Rocephin 1 gram [facility]#1106-5488-17 Reviewed 11/08/2011 12:00 AM Decadron Inj. per 1mg-[facility] [id number] Reviewed 11/08/2011 12:00 AM Depo-Medrol 80 Mg [facility] [id number] Reviewed 05/20/2016 12:00 AM COMPLETE CBC W/AUTO [...] AM Decadron, Per 1 Mg [facility]# [address]-50 Reviewed 10/30/2012 12:00 AM COMPLETE CBC W/AUTO [...] AM Decadron, Per 1 Mg [facility]# [address]-79 Reviewed 01/08/2013 12:00 AM Rocephin 1 gram [facility]#1998-65[address]-15 Reviewed 01/08/2013 12:00 AM COMPREHEN METABOLIC PANEL [...] AM Decadron, Per 1 Mg [facility]# [address]-40 Reviewed 02/27/2013 12:00 AM Depo-Medrol, Per 80 Mg [facility]#0026[address]225[address]-07 Reviewed 03/04/2013 12:00 AM MAMMOGRAM SCREENING Reviewed 03/05/2013 12:00 AM CYTOPATH TBS C/V MANUAL Reviewed 03/05/2013 12:00 AM MAMMOGRAM BOTH BREASTS Reviewed 03/27/2013 12:00 AM THER/PROPH/DIAG INJ SC/IM Reviewed 03/27/2013 12:00 AM Bicillin CR, 1.2 million units [facility]# 71247-449-61 Reviewed 07/20/2018 12:00 AM X-RAY EXAM OF FOOT Returned 07/31/2018 12:00 AM VIT D 1 25-DIHYDROXY Returned 05/10/2013 12:00 AM X-RAY EXAM KNEE 4 OR MORE Reviewed 05/10/2013 12:00 AM Physical Therapy Consult Reviewed 08/12/2018 12:00 AM THER/PROPH/DIAG INJ SC/IM Reviewed 08/12/2018 12:00 AM Rocephin 1 gram Injection Reviewed 08/12/2018 12:00 AM Decadron 4mg Injection Reviewed 08/12/2018 12:00 AM Depo-Medrol 40mg Injection Reviewed 08/13/2018 12:00 AM Rocephin 1 gram Injection Reviewed 10/16/2018 12:00 AM Decadron 8mg Injection Reviewed 10/16/2018 12:00 AM Depo-Medrol 80mg Injection Reviewed 11/01/2018 12:00 AM COMPLETE CBC W/AUTO DIFF WBC Returned 11/01/2018 12:00 AM COMPREHEN METABOLIC PANEL Returned 11/01/2018 12:00 AM C-REACTIVE PROTEIN Returned 06/26/2013 12:00 AM METABOLIC PANEL TOTAL CA Reviewed 06/26/2013 12:00 AM COMPLETE CBC W/AUTO DIFF WBC Reviewed 02/08/2010 12:00 AM COMPLETE CBC W/AUTO DIFF WBC Reviewed 02/08/2010 12:00 AM COMPREHEN METABOLIC PANEL Reviewed 02/08/2010 12:00 AM LIPID PANEL Reviewed 12/18/2018 12:00 AM COMPLETE CBC W/AUTO DIFF WBC Returned 12/18/2018 12:00 AM COMPREHEN METABOLIC PANEL Returned 12/18/2018 12:00 AM ASSAY OF LIPASE Returned 08/09/2013 12:00 AM THER/PROPH/DIAG INJ SC/IM Reviewed 08/09/2013 12:00 AM Decadron, Per 1 Mg [facility]# [address]-34 Reviewed 08/09/2013 12:00 AM Depo-Medrol, Per 80 Mg [facility]#8114-8411-16 Reviewed 08/21/2013 12:00 AM X-RAY EXAM OF [...] 12:00 AM Rocephin 1 gram [facility]#4308-3962-73 Reviewed 04/01/2015 12:00 AM COMPLETE CBC W/AUTO DIFF WBC Reviewed 04/01/2015 12:00 AM COMPREHEN METABOLIC PANEL Reviewed 04/01/2015 12:00 AM ASSAY THYROID STIM HORMONE Reviewed 04/01/2015 12:00 AM CHEST X-RAY 2VW FRONTAL&LATL Reviewed 05/07/2015 12:00 AM THER/PROPH/DIAG INJ SC/IM Reviewed 05/07/2015 12:00 AM Decadron injection Reviewed 05/07/2015 12:00 AM Depo-Medrol 40mg Reviewed 05/11/2011 12:00 AM Depo-Medrol 80 Mg [facility] [id number] Reviewed 05/11/2011 12:00 AM Decadron Inj. per 1mg-[facility] [id number] Reviewed Results Summary Date and Description Results [...] Vis Given Vis Pub CVX Tdap 04/26/2012 [employer] SKB ADACEL [id number] Intramuscular Left Arm 04/26/2012 08/19/2008 115 Tdap 03/14/2014 GlaxPandorama SKB BOOSTRIX [id number] Intramuscular Left Deltoid 03/14/2014 02/07/2013 115 Influenza 06/22/2015 [employer]. NOV FLUVIRIN [id number] Intramuscular Left Deltoid 06/23/2015 05/08/2015 140 Pneumococcal 09/16/2015 Not Entered [place] PNEUMOVAX 23 Intramuscular Not Entered 11/11/2016 10/02/2018 33 Influenza 07/07/2017 [facility] Fluzone Quadrivalent [id number] Intramuscular Left Deltoid 07/07/2017 05/08/2015 150 History [...] 8:43AM Morbid obesity Jul 31 2018 10:08AM COPD exacerbation Aug 12 2018 1:20PM COPD exacerbation Aug 13 2018 12:59PM Upper Respiratory Infection Oct 16 2018 2:10PM Right lower quadrant abdominal pain Nov 01 2018 8:33AM Gastroenteritis Nov 01 2018 8:33AM Abdominal pain Nov 01 2018 1:36PM Pelvic pain Nov 01 2018 1:36PM Leukocytosis Nov 01 2018 1:36PM CRP elevated Nov 01 2018 1:36PM Epigastric pain Dec 18 2018 9:52AM Left upper quadrant pain Dec 18 2018 9:52AM Diarrhea Dec 18 2018 9:52AM Epigastric pain Dec 18 2018 3:10PM Diarrhea Dec 18 2018 3:10PM Payers Insurance Name Company Name Plan Name Plan Number Policy Number Policy Group Number Start Date [employer] [place] [id number] N/A [id number] Financial Assistance [employer] Alex 100 PERCENT Tuesday, November 21, 2017 [employer] Financial Assistance [place] [employer] Alex 100 percent Tuesday, November 21, 2017 [employer] [place] [id number] Friday, October 02, 2009 [employer] [place] [id number] November State Self Insurance Fund *INVALID State Self Insurance [id number] N /A State Self Insurance Fund *INVALID State Self Insurance [id number] N /A [employer] [place] [id number] July [employer] [place] [id number] September History of Encounters Visit Date Visit Type Provider 12/18/2018 Office visit Kiarra Ramos SENIOR DATABASE ENGINEER 11/01/2018 Office visit Sean Marie MD 10/16/2018 Office visit Sean Marie MD 08/13/2018 Office visit Aurora Martin SENIOR DATABASE ENGINEER 08/12/2018 Office visit Aurora Martin SENIOR DATABASE ENGINEER 07/25/2018 [facility] Michelle Greco MD 07/20/2018 Office visit Sean Marie MD 05/22/2018 [...] Marie MD 04/23/2017 Office visit Aurora Martin SENIOR DATABASE ENGINEER 04/14/2017 Office visit Sean Marie MD 03/20/2017 Office visit Sean Marie MD 03/03/2017 Office visit Aurora Martin SENIOR DATABASE ENGINEER 01/09/2017 Office visit Sean Marie MD [...] Marie MD 01/16/2016 Office visit Jania Stanley SENIOR DATABASE ENGINEER 01/07/2016 Hospital Michelle Greco MD 12/31/2015 Office visit Sean Marie MD 12/09/2015 Office visit Miguel A Munoz SENIOR DATABASE ENGINEER 11/17/2015 Office visit Sean Marie MD 11/03/2015 Office visit Sean Marie MD 10/09/2015 Office visit 10/09/2015 Office visit Sean Marie MD 08/31/2015 Office visit Sean Marie MD 08/25/2015 Office visit Sean Marie MD 06/05/2015 Office visit Sean Marie MD 05/07/2015 Office visit Amaris Gentile SENIOR DATABASE ENGINEER 05/06/2015 Office visit Kiarra Ramos SENIOR DATABASE ENGINEER 04/01/2015 Office visit 04/01/2015 Office visit Sean Marie MD 04/01/2015 Hospital Michelle Greco MD 03/26/2015 Office visit Sean Marie MD 03/19/2015 Office visit Sean Marie MD 02/13/2015 Office visit Sean Marie MD 01/26/2015 Office visit Leena Haddad SENIOR DATABASE ENGINEER 01/12/2015 Office visit Sean Marie MD 11/24/2014 Office visit Kiarra Ramos SENIOR DATABASE ENGINEER 10/22/2014 Office visit Miguel A Munoz SENIOR DATABASE ENGINEER 08/22/2014 Office visit Sean Marie MD 08/01/2014 Office visit Sean Marie MD 06/09/2014 Office visit Kiarra Ramos SENIOR DATABASE ENGINEER 03/14/2014 Office visit Leena Haddad SENIOR DATABASE ENGINEER 02/27/2014 Office visit Leena Haddad SENIOR DATABASE ENGINEER 12/02/2013 Office visit Sean Marie MD 11/25/2013 Office visit Sean Marie MD 11/14/2013 Office visit Kiarra Ramos SENIOR DATABASE ENGINEER 08/21/2013 Office visit Leena Dunn Boo SENIOR DATABASE ENGINEER 08/09/2013 Office visit Kiarra Ramos SENIOR DATABASE ENGINEER 06/26/2013 Hospital Michelle Greco MD 06/26/2013 Office visit Sean Marie MD 06/21/2013 Office visit Kiarra Ramos SENIOR DATABASE ENGINEER 05/31/2013 Office visit Leena Dunn Boo SENIOR DATABASE ENGINEER 05/10/2013 Office visit Leena Dunn Boo SENIOR DATABASE ENGINEER 05/03/2013 Office visit Leena Haddad SENIOR DATABASE ENGINEER 03/27/2013 Office visit Kiarra Ramos SENIOR DATABASE ENGINEER 03/05/2013 Office visit Kiarra Ramos SENIOR DATABASE ENGINEER 02/27/2013 Office visit Kiarra Ramos SENIOR DATABASE ENGINEER 01/08/2013 Office visit Sean Marie MD 10/30/2012 Office visit Sean Marie MD 04/26/2012 Nurse visit Maria Antonia Barakat SENIOR DATABASE ENGINEER 02/07/2012 Office visit Sean Marie MD 02/07/2012 Hospital Michelle Greco MD 12/13/2011 Office visit Sean Marie MD 11/08/2011 Office visit Sean Marie MD 10/24/2011 Office visit Sean Marie MD 08/05/2011 Office visit Sean Marie MD 07/12/2011 Office visit Kiarra Ramos SENIOR DATABASE ENGINEER 05/11/2011 Office visit Sean Marie MD [...]
--- OUTSIDE RECORDS SUMMARY | 2018-12-18 16:41 | XMS REPORT ---
Author Author Kiarra Ramos Organization [facility] Address [address] [place], [place] [id number] Care Team Providers Care Animal Chiropractor Name Role Phone Kiarra Ramos PCP Sean [...] by topical route 3 times per day EVENTS DIRECTOR Thyroid 60 mg oral tablet 08/06/2018 TAKE [...] by oral route 2 times per day [place] Thyroid 60 mg oral tablet 12/02/2013 take 1 tablet by oral route daily for 30 days [place] Thyroid 60 mg oral tablet 04/07/2014 TAKE ONE TABLET BY MOUTH ONCE DAILY milk thistle oral 11/24/2014 chromium picolinate oral 06/09/2014 Zofran ODT oral 10/09/2015 Dexilant 60 mg oral capsule,biphase delayed releas 07/09/2014 11/24/2014 TAKE ONE CAPSULE BY MOUTH EVERY DAY [place] Thyroid 60 mg oral tablet 08/04/2014 TAKE [...] by oral route once daily at bedtime [place] 5-325 mg oral tablet 08/22/2014 11/24/2014 take [...] by topical route 2 times per day [place] Thyroid 60 mg oral tablet 07/13/2015 TAKE [...] daily in the morning for 30 days [place] Thyroid 60 mg oral tablet 07/11/2016 08/09/2017 [...] route once daily with the evening meal [place] 10-325 mg oral tablet 01/19/2018 04/30/2018 take [...] Per [address] [facility]# [address]-65 Reviewed 08/25/2015 12:00 AM Depo-Medrol, Per [address] [facility]#[address]-25 Reviewed 08/25/2015 12:00 AM Rocephin [address] [facility]#4821-8812-03 Reviewed 10/09/2015 12:00 AM COMPLETE CBC W/AUTO DIFF WBC Reviewed 10/09/2015 12:00 AM COMPREHEN METABOLIC PANEL Reviewed 10/09/2015 12:00 AM GLYCOSYLATED HEMOGLOBIN TEST Reviewed 10/09/2015 12:00 AM ASSAY THYROID STIM HORMONE Reviewed 11/03/2015 8:54 AM URINALYSIS AUTO W/O SCOPE Reviewed 11/03/2015 12:[address] HEAD/BRAIN W/O & W/DYE Reviewed 11/17/2015 12:00 AM Rocephin [address] [facility]#3049-7353-06 Reviewed 08/05/2011 12:00 AM CHEST X-RAY 2VW FRONTAL&LATL Reviewed 12/09/2015 12:00 AM THER/PROPH/DIAG INJ SC/IM Reviewed 12/09/2015 12:00 AM Rocephin [address] [facility]#7629-0351-86 Reviewed 11/08/2011 12:00 AM Decadron Inj. per 1mg-[facility] [id number] Reviewed 11/08/2011 12:00 AM Depo-Medrol [address] [facility] [id number] Reviewed 05/20/2016 12:00 AM COMPLETE CBC W/AUTO [...] Per [address] [facility]# [address]-18 Reviewed 10/30/2012 12:00 AM COMPLETE CBC W/AUTO [...] Per [address] [facility]# [address]-46 Reviewed 01/08/2013 12:00 AM Rocephin [address] [facility]#2814-4010-32 Reviewed 01/08/2013 12:00 AM COMPREHEN METABOLIC PANEL [...] Per [address] [facility]# [address]-91 Reviewed 02/27/2013 12:00 AM Depo-Medrol, Per [address] [facility]#3267-1123-42 Reviewed 03/04/2013 12:00 AM MAMMOGRAM SCREENING Reviewed 03/05/2013 12:00 AM CYTOPATH TBS C/V MANUAL Reviewed 03/05/2013 12:00 AM MAMMOGRAM BOTH BREASTS Reviewed 03/27/2013 12:00 AM THER/PROPH/DIAG INJ SC/IM Reviewed 03/27/2013 12:00 AM Bicillin CR, 1.[address] [facility]# 44284-838-87 Reviewed 07/20/2018 12:00 AM X-RAY EXAM OF [...] Per [address] [facility]# [address]-36 Reviewed 08/09/2013 12:00 AM Depo-Medrol, Per [address] [facility]#1480-1754-78 Reviewed 08/21/2013 12:00 AM X-RAY EXAM OF [...] AM Rocephin [address] [facility]#1446-5127-37 Reviewed 04/01/2015 12:00 AM COMPLETE CBC W/AUTO DIFF WBC Reviewed 04/01/2015 12:00 AM COMPREHEN METABOLIC PANEL Reviewed 04/01/2015 12:00 AM ASSAY THYROID STIM HORMONE Reviewed 04/01/2015 12:00 AM CHEST X-RAY 2VW FRONTAL&LATL Reviewed 05/07/2015 12:00 AM THER/PROPH/DIAG INJ SC/IM Reviewed 05/07/2015 12:00 AM Decadron injection Reviewed 05/07/2015 12:00 AM Depo-Medrol 40mg Reviewed 05/11/2011 12:00 AM Depo-Medrol [address] [facility] [id number] Reviewed 05/11/2011 12:00 AM Decadron Inj. per 1mg-[facility] [id number] Reviewed Results Summary Date and Description Results [...] Vis Given Vis Pub CVX Tdap 04/26/2012 [employer] SKB ADACEL [id number] Intramuscular Left Arm 04/26/2012 08/19/2008 115 Tdap 03/14/2014 GlaxAyannah SKB BOOSTRIX [id number] Intramuscular Left Deltoid 03/14/2014 02/07/2013 115 Influenza 06/22/2015 [employer]. NOV FLUVIRIN [id number] Intramuscular Left Deltoid 06/23/2015 05/08/2015 140 Pneumococcal 09/16/2015 Not Entered [place] PNEUMOVAX 23 Intramuscular Not Entered 11/11/2016 10/02/2018 33 Influenza 07/07/2017 [facility] Fluzone Quadrivalent [id number] Intramuscular Left Deltoid 07/07/2017 05/08/2015 150 History [...] Start Date [employer] [place] [id number] N/A [employer] Financial Assistance [place] [employer] Alex 100 PERCENT Tuesday, November 21, 2017 [employer] Financial Assistance [place] [employer] Alex 100 percent Tuesday, November 21, 2017 [employer] [place] [id number] Friday, October 02, 2009 [employer] [place] [id number] November State Self Insurance Fund *INVALID State Self Insurance [id number] N /A State Self Insurance Fund *INVALID State Self Insurance [id number] N /A [employer] [place] [id number] July [employer] [place] [id number] September History of Encounters Visit Date Visit Type Provider 12/18/2018 Office visit Kiarra Ramos ROUTE RIDER 11/01/2018 Office visit Sean Marie MD 10/16/2018 Office visit Sean Marie MD 08/13/2018 Office visit Aurora Martin ROUTE RIDER 08/12/2018 Office visit Aurora Martin ROUTE RIDER 07/25/2018 [facility] Michelle Greco MD 07/20/2018 Office visit Sean [...] Marie MD 04/23/2017 Office visit Aurora Martin ROUTE RIDER 04/14/2017 Office visit Sean Marie MD 03/20/2017 Office visit Sean Marie MD 03/03/2017 Office visit Aurora Martin ROUTE RIDER 01/09/2017 Office visit Sean Marie MD 01/02/2017 [...] Marie MD 01/16/2016 Office visit Jania Stanley ROUTE RIDER 01/07/2016 Hospital Michelle Greco MD 12/31/2015 Office visit Sean Marie MD 12/09/2015 Office visit Miguel A Munoz ROUTE RIDER 11/17/2015 Office visit Sean Marie MD 11/03/2015 Office visit Sean Marie MD 10/09/2015 Office visit 10/09/2015 Office visit Sean Marie MD 08/31/2015 Office visit Sean Marie MD 08/25/2015 Office visit Sean Marie MD 06/05/2015 Office visit Sean Marie MD 05/07/2015 Office visit Amaris Gentile ROUTE RIDER 05/06/2015 Office visit Kiarra Ramos ROUTE RIDER 04/01/2015 Office visit 04/01/2015 Office visit Sean Marie MD 04/01/2015 Hospital Michelle Greoc MD 03/26/2015 Office visit Sean Marie MD 03/19/2015 Office visit Sean Marie MD 02/13/2015 Office visit Sean Marie MD 01/26/2015 Office visit Leena Haddad ROUTE RIDER 01/12/2015 Office visit Sean Marie MD 11/24/2014 Office visit Kiarar Ramos ROUTE RIDER 10/22/2014 Office visit Miguel A Munoz ROUTE RIDER 08/22/2014 Office visit Sean Marie MD 08/01/2014 Office visit Sean Marie MD 06/09/2014 Office visit Kiarra Ramos ROUTE RIDER 03/14/2014 Office visit Leena Haddad ROUTE RIDER 02/27/2014 Office visit Leena Haddad ROUTE RIDER 12/02/2013 Office visit Sean Marie MD 11/25/2013 Office visit Sean Marie MD 11/14/2013 Office visit Kiarra Ramos ROUTE RIDER 08/21/2013 Office visit Leena Dunn Boo ROUTE RIDER 08/09/2013 Office visit Kiarra Ramos ROUTE RIDER 06/26/2013 Hospital Michelle Greco MD 06/26/2013 Office visit Sean Marie MD 06/21/2013 Office visit Kiarra Ramos ROUTE RIDER 05/31/2013 Office visit Leena Dunn Boo ROUTE RIDER 05/10/2013 Office visit Leena Dunn Boo ROUTE RIDER 05/03/2013 Office visit Leena Haddad ROUTE RIDER 03/27/2013 Office visit Kiarra Ramos ROUTE RIDER 03/05/2013 Office visit Kiarra Ramos ROUTE RIDER 02/27/2013 Office visit Kiarra Ramos ROUTE RIDER 01/08/2013 Office visit Sean Marie MD 10/30/2012 Office visit Sean Marie MD 04/26/2012 Nurse visit Maria Antonia Barakat ROUTE RIDER 02/07/2012 Office visit Sean Marie MD 02/07/2012 Hospital Michelle Greco MD 12/13/2011 Office visit Sean Marie MD 11/08/2011 Office visit Sean Marie MD 10/24/2011 Office visit Sean Marie MD 08/05/2011 Office visit Sean Marie MD 07/12/2011 Office visit Kiarra Ramos ROUTE RIDER 05/11/2011 Office visit Sean Marie MD 04/19/2011 [...]
--- OUTSIDE RECORDS SUMMARY | 2018-12-18 16:44 | XMS REPORT ---
Author Author Kiarra Ramos Organization [facility] Address [address] [place], [place] [id number] Care Team Providers Care Management Retail Intern Name Role Phone Kiarra Ramos PCP Sean [...] AM EKG (12-lead electrocardiogram) 06/26/2013 12:00 AM CBC With Auto Differential 12/18/2018 12:00 AM CMP (comprehensive metabolic panel) 12/18/2018 12:00 AM Abdomen 2View Decub/Upright- MOB 12/18/2018 12:00 AM LIPASE. 12/18/2018 12:00 AM fibromyalgia, RLS EKG (12-lead [...] by topical route 3 times per day [employer] Thyroid 60 mg oral tablet 08/06/2018 TAKE [...] by oral route 2 times per day [place] Thyroid 60 mg oral tablet 12/02/2013 take 1 tablet by oral route daily for 30 days [place] Thyroid 60 mg oral tablet 04/07/2014 TAKE ONE TABLET BY MOUTH ONCE DAILY milk thistle oral 11/24/2014 chromium picolinate oral 06/09/2014 Zofran ODT oral 10/09/2015 Dexilant 60 mg oral capsule,biphase delayed releas 07/09/2014 11/24/2014 TAKE ONE CAPSULE BY MOUTH EVERY DAY [place] Thyroid 60 mg oral tablet 08/04/2014 TAKE [...] by oral route once daily at bedtime [place] 5-325 mg oral tablet 08/22/2014 11/24/2014 take [...] by topical route 2 times per day [place] Thyroid 60 mg oral tablet 07/13/2015 TAKE [...] daily in the morning for 30 days [place] Thyroid 60 mg oral tablet 07/11/2016 08/09/2017 [...] route once daily with the evening meal [place] 10-325 mg oral tablet 01/19/2018 04/30/2018 take [...] 08/25/2015 12:00 AM Decadron, Per 1 Mg [facility]# [address]-78 Reviewed 08/25/2015 12:00 AM Depo-Medrol, Per 80 Mg [facility]#[address]-00 Reviewed 08/25/2015 12:00 AM Rocephin 1 gram [facility]#1083-4739-04 Reviewed 10/09/2015 12:00 AM COMPLETE CBC W/AUTO DIFF WBC Reviewed 10/09/2015 12:00 AM COMPREHEN METABOLIC PANEL Reviewed 10/09/2015 12:00 AM GLYCOSYLATED HEMOGLOBIN TEST Reviewed 10/09/2015 12:00 AM ASSAY THYROID STIM HORMONE Reviewed 11/03/2015 8:54 AM URINALYSIS AUTO W/O SCOPE Reviewed 11/03/2015 12:[address] HEAD/BRAIN W/O & W/DYE Reviewed 11/17/2015 12:00 AM Rocephin 1 gram [facility]#0668-8073-23 Reviewed 08/05/2011 12:00 AM CHEST X-RAY 2VW FRONTAL&LATL Reviewed 12/09/2015 12:00 AM THER/PROPH/DIAG INJ SC/IM Reviewed 12/09/2015 12:00 AM Rocephin 1 gram [facility]#4803-4232-84 Reviewed 11/08/2011 12:00 AM Decadron Inj. per 1mg-[facility] [id number] Reviewed 11/08/2011 12:00 AM Depo-Medrol 80 Mg [facility] [id number] Reviewed 05/20/2016 12:00 AM COMPLETE CBC W/AUTO [...] 10/30/2012 12:00 AM Decadron, Per 1 Mg [facility]# [address]-06 Reviewed 10/30/2012 12:00 AM COMPLETE CBC W/AUTO [...] 01/08/2013 12:00 AM Decadron, Per 1 Mg [facility]# [address]-67 Reviewed 01/08/2013 12:00 AM Rocephin 1 gram [facility]#9648-7648-00 Reviewed 01/08/2013 12:00 AM COMPREHEN METABOLIC PANEL [...] 02/27/2013 12:00 AM Decadron, Per 1 Mg [facility]# [address]-98 Reviewed 02/27/2013 12:00 AM Depo-Medrol, Per 80 Mg [facility]#3177-6409-32 Reviewed 03/04/2013 12:00 AM MAMMOGRAM SCREENING Reviewed 03/05/2013 12:00 AM CYTOPATH TBS C/V MANUAL Reviewed 03/05/2013 12:00 AM MAMMOGRAM BOTH BREASTS Reviewed 03/27/2013 12:00 AM THER/PROPH/DIAG INJ SC/IM Reviewed 03/27/2013 12:00 AM Bicillin CR, 1.2 million units [facility]# 00747-148-41 Reviewed 07/20/2018 12:00 AM X-RAY EXAM OF [...] 08/09/2013 12:00 AM Decadron, Per 1 Mg [facility]# [address]-81 Reviewed 08/09/2013 12:00 AM Depo-Medrol, Per 80 Mg [facility]#3957-8911-43 Reviewed 08/21/2013 12:00 AM X-RAY EXAM OF [...] Reviewed 03/26/2015 12:00 AM Rocephin 1 gram [facility]#8475-4646-45 Reviewed 04/01/2015 12:00 AM COMPLETE CBC W/AUTO DIFF WBC Reviewed 04/01/2015 12:00 AM COMPREHEN METABOLIC PANEL Reviewed 04/01/2015 12:00 AM ASSAY THYROID STIM HORMONE Reviewed 04/01/2015 12:00 AM CHEST X-RAY 2VW FRONTAL&LATL Reviewed 05/07/2015 12:00 AM THER/PROPH/DIAG INJ SC/IM Reviewed 05/07/2015 12:00 AM Decadron injection Reviewed 05/07/2015 12:00 AM Depo-Medrol 40mg Reviewed 05/11/2011 12:00 AM Depo-Medrol 80 Mg [facility] [id number] Reviewed 05/11/2011 12:00 AM Decadron Inj. per 1mg-[facility] [id number] Reviewed Results Summary Date and Description Results [...] Vis Given Vis Pub CVX Tdap 04/26/2012 [employer] SKB ADACEL [id number] Intramuscular Left Arm 04/26/2012 08/19/2008 115 Tdap 03/14/2014 [employer] SKB BOOSTRIX [id number] Intramuscular Left Deltoid 03/14/2014 02/07/2013 115 Influenza 06/22/2015 [employer]. NOV FLUVIRIN [id number] Intramuscular Left Deltoid 06/23/2015 05/08/2015 140 Pneumococcal 09/16/2015 Not Entered [place] PNEUMOVAX 23 Intramuscular Not Entered 11/11/2016 10/02/2018 33 Influenza 07/07/2017 [facility] Fluzone Quadrivalent [id number] Intramuscular Left Deltoid 07/07/2017 05/08/2015 150 History [...] 2018 9:52AM Diarrhea Dec 18 2018 9:52AM Payers Insurance Name Company Name Plan Name Plan Number Policy Number Policy Group Number Start Date [employer] [place] [id number] N/A [place] [facility] Financial [facility] [place] [employer] Alex 100 PERCENT Tuesday, November 21, 2017 [place] [facility] Financial [facility] [place] [facility] [employer] Alex 100 percent Tuesday, November 21, 2017 [employer] [place] [id number] Friday, October 02, 2009 [employer] [place] [id number] November State Self Insurance Fund *INVALID State Self Insurance [id number] N /A State Self Insurance Fund *INVALID State Self Insurance [id number] N /A [employer] [place] [id number] July [employer] [place] [id number] September History of Encounters Visit Date Visit Type Provider 12/18/2018 Office visit Kiarra Ramos AIRPLANE PILOT 11/01/2018 Office visit Sean Marie MD 10/16/2018 Office visit Sean Marie MD 08/13/2018 Office visit Aurora Martin AIRPLANE PILOT 08/12/2018 Office visit Aurora Martin AIRPLANE PILOT 07/25/2018 [facility] Michelle Greco MD 07/20/2018 Office visit [...] Marie MD 04/23/2017 Office visit Aurora Martin AIRPLANE PILOT 04/14/2017 Office visit Sean Marie MD 03/20/2017 Office visit Sean Marie MD 03/03/2017 Office visit Aurora Martin AIRPLANE PILOT 01/09/2017 Office visit Sean Marie MD 01/02/2017 [...] Marie MD 01/16/2016 Office visit Jania Stanley AIRPLANE PILOT 01/07/2016 Hospital Michelle Greco MD 12/31/2015 Office visit Sean Marie MD 12/09/2015 Office visit Miguel A Munoz AIRPLANE PILOT 11/17/2015 Office visit Sean Marie MD 11/03/2015 Office visit Sean Marie MD 10/09/2015 Office visit 10/09/2015 Office visit Sean Marie MD 08/31/2015 Office visit Sean Marie MD 08/25/2015 Office visit Sean Marie MD 06/05/2015 Office visit Sean Marie MD 05/07/2015 Office visit Amaris Gentile AIRPLANE PILOT 05/06/2015 Office visit Kiarra Ramos AIRPLANE PILOT 04/01/2015 Office visit 04/01/2015 Office visit Sean Marie MD 04/01/2015 Hospital Michelle Greco MD 03/26/2015 Office visit Sean Marie MD 03/19/2015 Office visit Sean Marie MD 02/13/2015 Office visit Sean Marie MD 01/26/2015 Office visit Leena Haddad AIRPLANE PILOT 01/12/2015 Office visit Sean Marie MD 11/24/2014 Office visit Kiarra Ramos AIRPLANE PILOT 10/22/2014 Office visit Miguel A Munoz AIRPLANE PILOT 08/22/2014 Office visit Sean Marie MD 08/01/2014 Office visit Sean Marie MD 06/09/2014 Office visit Kiarra Ramos AIRPLANE PILOT 03/14/2014 Office visit Leena Haddad AIRPLANE PILOT 02/27/2014 Office visit Leena Haddad AIRPLANE PILOT 12/02/2013 Office visit Sean Marie MD 11/25/2013 Office visit Sean Marie MD 11/14/2013 Office visit Kiarra Ramos AIRPLANE PILOT 08/21/2013 Office visit Leena Dunn Boo AIRPLANE PILOT 08/09/2013 Office visit Kiarra Ramos AIRPLANE PILOT 06/26/2013 Hospital Michelle Greco MD 06/26/2013 Office visit Sean Marie MD 06/21/2013 Office visit Kiarra Richard AIRPLANE PILOT 05/31/2013 Office visit Leena Haddad AIRPLANE PILOT 05/10/2013 Office visit Leena Haddad AIRPLANE PILOT 05/03/2013 Office visit Leena Haddad AIRPLANE PILOT 03/27/2013 Office visit Kiarra Ramos AIRPLANE PILOT 03/05/2013 Office visit Kiarra Ramos AIRPLANE PILOT 02/27/2013 Office visit Kiarra Richard AIRPLANE PILOT 01/08/2013 Office visit Sean Marie MD 10/30/2012 Office visit Saen Marie MD 04/26/2012 Nurse visit Maria Antonia Barakat AIRPLANE PILOT 02/07/2012 Office visit Sean Marie MD 02/07/2012 [facility] Michelle Greco MD 12/13/2011 Office visit Sean Marie MD 11/08/2011 Office visit Sean Marie MD 10/24/2011 Office visit Sean Marie MD 08/05/2011 Office visit Sean Marie MD 07/12/2011 Office visit Kiarra Ramos AIRPLANE PILOT 05/11/2011 Office visit Sean Marie MD 04/19/2011 [...]
--- OUTSIDE RECORDS SUMMARY | 2018-12-18 16:46 | XMS REPORT ---
Author Author Sean Marie [facility] Address [address] [place], [place] [address] Care Team Providers Care Video Journalist Name Role Phone Sean Marie PCP Sean [...] by topical route 3 times per day [place] Thyroid 60 mg oral tablet 08/06/2018 TAKE [...] milliliters by oral route every 12 hours Name Start Date Expiration Date SIG [...] by oral route daily for 30 days [place] Thyroid 60 mg oral tablet 04/07/2014 TAKE ONE TABLET BY MOUTH ONCE DAILY milk thistle oral 11/24/2014 chromium picolinate oral 06/09/2014 Zofran ODT oral 10/09/2015 Dexilant 60 mg oral capsule,biphase delayed releas 07/09/2014 11/24/2014 TAKE ONE CAPSULE BY MOUTH EVERY DAY [place] Thyroid 60 mg oral tablet 08/04/2014 TAKE [...] by oral route once daily at bedtime [place] 5-325 mg oral tablet 08/22/2014 11/24/2014 take [...] by topical route 2 times per day [place] Thyroid 60 mg oral tablet 07/13/2015 TAKE [...] daily in the morning for 30 days [place] Thyroid 60 mg oral tablet 07/11/2016 08/09/2017 [...] 30 days duloxetine 30 mg oral capsule,delayed release(/EC) 07/10/2017 04/11/2018 TAKE ONE CAPSULE BY MOUTH [...] route once daily with the evening meal [place] 10-325 mg oral tablet 01/19/2018 04/30/2018 take [...] HC BMI BSA BMI Percentile O2 Sat(%) 11/01/2018 8:31:00 AM 130 mmHg 92 mmHg 101 bpm 18 rpm 97.4 F 247.5 lbs 64 in 42.4828 kg/m 2.2515 m 97 % 10/16/2018 2:02:00 PM 132 mmHg 76 mmHg 87 bpm 20 rpm 97.9 F 255.5 lbs 64 in 43.86 kg/m2 2.29 m2 98 % 08/13/2018 12:57:00 PM 142 mmHg [...] 08/25/2015 12:00 AM Decadron, Per 1 Mg [facility]# [address]-19 Reviewed 08/25/2015 12:00 AM Depo-Medrol, Per 80 Mg [facility]#[address]-25 Reviewed 08/25/2015 12:00 AM Rocephin 1 gram [facility]#6075-7965-88 Reviewed 10/09/2015 12:00 AM COMPLETE CBC W/AUTO DIFF WBC Reviewed 10/09/2015 12:00 AM COMPREHEN METABOLIC PANEL Reviewed 10/09/2015 12:00 AM GLYCOSYLATED HEMOGLOBIN TEST Reviewed 10/09/2015 12:00 AM ASSAY THYROID STIM HORMONE Reviewed 11/03/2015 8:54 AM URINALYSIS AUTO W/O SCOPE Reviewed 11/03/2015 12:[address] HEAD/BRAIN W/O & W/DYE Reviewed 11/17/2015 12:00 AM Rocephin 1 gram [facility]#2167-0762-82 Reviewed 08/05/2011 12:00 AM CHEST X-RAY 2VW FRONTAL&LATL Reviewed 12/09/2015 12:00 AM THER/PROPH/DIAG INJ SC/IM Reviewed 12/09/2015 12:00 AM Rocephin 1 gram [facility]#6861-4784-50 Reviewed 11/08/2011 12:00 AM Decadron Inj. per 1mg-[facility] [id number] Reviewed 11/08/2011 12:00 AM Depo-Medrol 80 Mg [facility] [id number]-Swlnvovch Reviewed 05/20/2016 12:00 AM COMPLETE CBC W/AUTO [...] 10/30/2012 12:00 AM Decadron, Per 1 Mg [facility]# [address]-41 Reviewed 10/30/2012 12:00 AM COMPLETE CBC W/AUTO [...] 01/08/2013 12:00 AM Decadron, Per 1 Mg [facility]# [address]-49 Reviewed 01/08/2013 12:00 AM Rocephin 1 gram [facility]#7982-5839-60 Reviewed 01/08/2013 12:00 AM COMPREHEN METABOLIC PANEL [...] 02/27/2013 12:00 AM Decadron, Per 1 Mg [facility]# [address]-72 Reviewed 02/27/2013 12:00 AM Depo-Medrol, Per 80 Mg [facility]#5541-3126-21 Reviewed 03/04/2013 12:00 AM MAMMOGRAM SCREENING Reviewed 03/05/2013 12:00 AM CYTOPATH TBS C/V MANUAL Reviewed 03/05/2013 12:00 AM MAMMOGRAM BOTH BREASTS Reviewed 03/27/2013 12:00 AM THER/PROPH/DIAG INJ SC/IM Reviewed 03/27/2013 12:00 AM Bicillin CR, 1.2 million units [facility]# 37559-370-01 Reviewed 07/20/2018 12:00 AM X-RAY EXAM OF [...] 08/09/2013 12:00 AM Decadron, Per 1 Mg [facility]# [address]-82 Reviewed 08/09/2013 12:00 AM Depo-Medrol, Per 80 Mg [facility]#8293-0670-18 Reviewed 08/21/2013 12:00 AM X-RAY EXAM OF [...] Reviewed 03/26/2015 12:00 AM Rocephin 1 gram [facility]#9000-2596-69 Reviewed 04/01/2015 12:00 AM COMPLETE CBC W/AUTO DIFF WBC Reviewed 04/01/2015 12:00 AM COMPREHEN METABOLIC PANEL Reviewed 04/01/2015 12:00 AM ASSAY THYROID STIM HORMONE Reviewed 04/01/2015 12:00 AM CHEST X-RAY 2VW FRONTAL&LATL Reviewed 05/07/2015 12:00 AM THER/PROPH/DIAG INJ SC/IM Reviewed 05/07/2015 12:00 AM Decadron injection Reviewed 05/07/2015 12:00 AM Depo-Medrol 40mg Reviewed 05/11/2011 12:00 AM Depo-Medrol 80 Mg [facility] [id number] Reviewed 05/11/2011 12:00 AM Decadron Inj. per 1mg-[facility] [id number]-Wwalneknj Reviewed Results Summary Date and Description Results [...] Vis Given Vis Pub CVX Tdap 04/26/2012 [employer] SKB ADACEL [id number] Intramuscular Left Arm 04/26/2012 08/19/2008 115 Tdap 03/14/2014 [employer] SKB BOOSTRIX [id number] Intramuscular Left Deltoid 03/14/2014 02/07/2013 115 Influenza 06/22/2015 [employer]. NOV FLUVIRIN [id number] Intramuscular Left Deltoid 06/23/2015 05/08/2015 140 Pneumococcal 09/16/2015 Not Entered [place] PNEUMOVAX 23 Intramuscular Not Entered 11/11/2016 10/02/2018 33 Influenza 07/07/2017 [facility] Fluzone Quadrivalent [id number] Intramuscular Left Deltoid 07/07/2017 05/08/2015 150 History [...] 1:36PM CRP elevated Nov 01 2018 1:36PM Payers Insurance Name Company Name Plan Name Plan Number Policy Number Policy Group Number Start Date [employer] [place] [id number] N/A [facility] Financial Assistance [employer] Alex 100 PERCENT Tuesday, November 21, 2017 [facility] [employer] [facility] [employer] Alex 100 percent Tuesday, November 21, 2017 [employer] [place] [id number] Friday, October 02, 2009 [employer] [place] [id number] November State Self Insurance Fund *INVALID State Self Insurance [id number] N /A State Self Insurance Fund *INVALID State Self Insurance [id number] N /A [employer] [place] [id number] July [employer] [place] [id number] September History of Encounters Visit Date Visit Type Provider 11/01/2018 Office visit Sean Marie MD 10/16/2018 Office visit Sean Marie MD 08/13/2018 Office visit Aurora Martin APRN 08/12/2018 Office visit Aurora Martin APRN 07/25/2018 [facility] Michelle Greco MD 07/20/2018 Office [...] Sean Marie MD 04/23/2017 Office visit Aurora L. Mario RV MECHANIC 04/14/2017 Office visit Sean Marie MD 03/20/2017 Office visit Sean Marie MD 03/03/2017 Office visit Aurora L. Mario RV MECHANIC 01/09/2017 Office visit Sean Marie MD 01/02/2017 Office visit Sean Marie MD 12/27/2016 Office visit Sean Marie MD 2016 Office visit Sean Marie MD 09/19/2016 Office visit Sean Marie MD 07/01/2016 Office visit Sean Maire MD 06/17/2016 Office visit Sean Marie MD 05/20/2016 Office visit 05/20/2016 Office visit Sean Marie MD 05/16/2016 Hospital Michelle Greco MD 04/01/2016 Office visit Sean Marie MD 02/25/2016 Office visit Sean Marie MD 01/16/2016 Office visit Jania Stanley RV MECHANIC 01/07/2016 Hospital Michelle Greco MD 12/31/2015 Office visit Sean Marie MD 12/09/2015 Office visit Miguel A Munoz RV MECHANIC 11/17/2015 Office visit Sean Marie MD 11/03/2015 Office visit Sean Marie MD 10/09/2015 Office visit 10/09/2015 Office visit Sean Marie MD 08/31/2015 Office visit Sean Marie MD 08/25/2015 Office visit Sean Marie MD 06/05/2015 Office visit Sean Marie MD 05/07/2015 Office visit Amaris Gentile RV MECHANIC 05/06/2015 Office visit Kiarra Ramos RV MECHANIC 04/01/2015 Office visit 04/01/2015 Office visit Sean Marie MD 04/01/2015 Hospital Michelle Greco MD 03/26/2015 Office visit Sean Marie MD 03/19/2015 Office visit Sean Marie MD 02/13/2015 Office visit Sean Marie MD 01/26/2015 Office visit Leena Haddad RV MECHANIC 01/12/2015 Office visit Sean Marie MD 11/24/2014 Office visit Kiarra Ramos RV MECHANIC 10/22/2014 Office visit Miguel A Munoz RV MECHANIC 08/22/2014 Office visit Sean Marie MD 08/01/2014 Office visit Sean Marie MD 06/09/2014 Office visit Kiarra Ramos RV MECHANIC 03/14/2014 Office visit Leena Haddad RV MECHANIC 02/27/2014 Office visit Leena Haddad RV MECHANIC 12/02/2013 Office visit Sean Marie MD 11/25/2013 Office visit Sean Marie MD 11/14/2013 Office visit Kiarra Richard RV MECHANIC 08/21/2013 Office visit Leena NEd Haddad RV MECHANIC 08/09/2013 Office visit Kiarra Ramos RV MECHANIC 06/26/2013 Hospital Michelle Greco MD 06/26/2013 Office visit Sean Marie MD 06/21/2013 Office visit Kiarra Ramos RV MECHANIC 05/31/2013 Office visit Leena N. Boo RV MECHANIC 05/10/2013 Office visit Leenaallison Haddad RV MECHANIC 05/03/2013 Office visit Leena Haddad RV MECHANIC 03/27/2013 Office visit Kiarra Ramos RV MECHANIC 03/05/2013 Office visit Kiarra Ramos RV MECHANIC 02/27/2013 Office visit Kiarra Ramos RV MECHANIC 01/08/2013 Office visit Sean Marie MD 10/30/2012 Office visit Sean Marie MD 04/26/2012 Nurse visit Maria Antonia Barakat RV MECHANIC 02/07/2012 Office visit Sean Marie MD 02/07/2012 Hospital Michelle Greco MD 12/13/2011 Office visit Sean Marie MD 11/08/2011 Office visit Sean Marie MD 10/24/2011 Office visit Sean Marie MD 08/05/2011 Office visit Sean Marie MD 07/12/2011 Office visit Kiarra Ramos RV MECHANIC 05/11/2011 Office visit Sean Marie MD 04/19/2011 [...]
--- OUTSIDE RECORDS SUMMARY | 2018-12-18 16:48 | XMS REPORT ---
Author Author Sean Marie [facility] Address [address] [place], [place] [address] Care Team Providers Care Transportation Assistant Name Role Phone Sean Marie PCP Sean Marie PreferredProvider Allergies and Adverse Reactions Name Reaction Notes Albuterol tachycardia increases heart rate too much Percocet "head crawling" Adhesive Tape Plan of Treatment Planned Activity Comments Planned Date Planned Time Plan/Goal Mammography; bilateral 11/13/2017 12:00 AM CBC With Auto Differential 01/08/2013 12:00 AM Cyanocobalamin measurement 07/31/2018 12:00 AM Thiamine measurement 07/31/2018 12:00 AM CBC With Auto Differential 11/01/2018 12:00 AM CMP 11/01/2018 12:00 AM CRP 11/01/2018 12:00 AM EKG (12-lead electrocardiogram) 06/26/2013 [...] by topical route 3 times per day [employer]UAL [employer]OCIATE Thyroid 60 mg oral tablet 08/06/2018 TAKE [...] TAKE ONE CAPSULE BY MOUTH EVERY DAY [place] Thyroid 60 mg oral tablet 08/04/2014 TAKE [...] by oral route once daily at bedtime [place] 5-325 mg oral tablet 08/22/2014 11/24/2014 take [...] by topical route 2 times per day [place] Thyroid 60 mg oral tablet 07/13/2015 TAKE [...] daily in the morning for 30 days [place] Thyroid 60 mg oral tablet 07/11/2016 08/09/2017 [...] route once daily with the evening meal [place] 10-325 mg oral tablet 01/19/2018 04/30/2018 take [...] 08/25/2015 12:00 AM Decadron, Per [address] [facility]# [address]-82 Reviewed 08/25/2015 12:00 AM Depo-Medrol, Per [address] [facility]#[address]-68 Reviewed 08/25/2015 12:00 AM Rocephin [address] [facility]#8315-0548-48 Reviewed 10/09/2015 12:00 AM COMPLETE CBC W/AUTO DIFF WBC Reviewed 10/09/2015 12:00 AM COMPREHEN METABOLIC PANEL Reviewed 10/09/2015 12:00 AM GLYCOSYLATED HEMOGLOBIN TEST Reviewed 10/09/2015 12:00 AM ASSAY THYROID STIM HORMONE Reviewed 11/03/2015 8:54 AM URINALYSIS AUTO W/O SCOPE Reviewed 11/03/2015 12:[address] HEAD/BRAIN W/O & W/DYE Reviewed 11/17/2015 12:00 AM Rocephin [address] [facility]#7347-4162-15 Reviewed 08/05/2011 12:00 AM CHEST X-RAY 2VW FRONTAL&LATL Reviewed 12/09/2015 12:00 AM THER/PROPH/DIAG INJ SC/IM Reviewed 12/09/2015 12:00 AM Rocephin [address] [facility]#5362-7561-97 Reviewed 11/08/2011 12:00 AM Decadron Inj. per 1mg-[facility] [id number] Reviewed 11/08/2011 12:00 AM Depo-Medrol [address] [facility] [id number]-Sqmtcuzkh Reviewed 05/20/2016 12:00 AM COMPLETE CBC W/AUTO [...] 10/30/2012 12:00 AM Decadron, Per [address] [facility]# [address]-57 Reviewed 10/30/2012 12:00 AM COMPLETE CBC W/AUTO [...] 01/08/2013 12:00 AM Decadron, Per [address] [facility]# [address]-17 Reviewed 01/08/2013 12:00 AM Rocephin [address] [facility]#3070-2427-99 Reviewed 01/08/2013 12:00 AM COMPREHEN METABOLIC PANEL [...] 02/27/2013 12:00 AM Decadron, Per [address] [facility]# [address]-43 Reviewed 02/27/2013 12:00 AM Depo-Medrol, Per [address] [facility]#0444-9909-14 Reviewed 03/04/2013 12:00 AM MAMMOGRAM SCREENING Reviewed 03/05/2013 12:00 AM CYTOPATH TBS C/V MANUAL Reviewed 03/05/2013 12:00 AM MAMMOGRAM BOTH BREASTS Reviewed 03/27/2013 12:00 AM THER/PROPH/DIAG INJ SC/IM Reviewed 03/27/2013 12:00 AM Bicillin CR, 1.[address] [facility]# 78302-741-89 Reviewed 07/20/2018 12:00 AM X-RAY EXAM OF [...] 10/16/2018 12:00 AM Depo-Medrol 80mg Injection Reviewed 06/26/2013 12:00 AM METABOLIC PANEL TOTAL CA Reviewed 06/26/2013 12:00 AM COMPLETE CBC W/AUTO DIFF WBC Reviewed 02/08/2010 12:00 AM COMPLETE CBC W/AUTO DIFF WBC Reviewed 02/08/2010 12:00 AM COMPREHEN METABOLIC PANEL Reviewed 02/08/2010 12:00 AM LIPID PANEL Reviewed 08/09/2013 12:00 AM THER/PROPH/DIAG INJ SC/IM Reviewed 08/09/2013 12:00 AM Decadron, Per [address] [facility]# [address]-59 Reviewed 08/09/2013 12:00 AM Depo-Medrol, Per [address] [facility]#6240-6973-89 Reviewed 08/21/2013 12:00 AM X-RAY EXAM OF [...] Reviewed 03/26/2015 12:00 AM Rocephin [address] [facility]#7021-1240-20 Reviewed 04/01/2015 12:00 AM COMPLETE CBC W/AUTO DIFF WBC Reviewed 04/01/2015 12:00 AM COMPREHEN METABOLIC PANEL Reviewed 04/01/2015 12:00 AM ASSAY THYROID STIM HORMONE Reviewed 04/01/2015 12:00 AM CHEST X-RAY 2VW FRONTAL&LATL Reviewed 05/07/2015 12:00 AM THER/PROPH/DIAG INJ SC/IM Reviewed 05/07/2015 12:00 AM Decadron injection Reviewed 05/07/2015 12:00 AM Depo-Medrol 40mg Reviewed 05/11/2011 12:00 AM Depo-Medrol [address] [facility] [id number] Reviewed 05/11/2011 12:00 AM Decadron Inj. per 1mg-[facility] [id number]-Kqnaepruy Reviewed Results Summary Date and Description Results [...] Vis Given Vis Pub CVX Tdap 04/26/2012 [employer] SKB ADACEL [id number] Intramuscular Left Arm 04/26/2012 08/19/2008 115 Tdap 03/14/2014 [employer] BOOSTRIX [id number] Intramuscular Left Deltoid 03/14/2014 02/07/2013 115 Influenza 06/22/2015 [employer]. NOV FLUVIRIN [id number] Intramuscular Left Deltoid 06/23/2015 05/08/2015 140 Pneumococcal 09/16/2015 Not Entered [place] PNEUMOVAX 23 Intramuscular Not Entered 11/11/2016 10/02/2018 33 Influenza 07/07/2017 [facility] Fluzone Quadrivalent [id number] Intramuscular Left Deltoid 07/07/2017 05/08/2015 150 History [...] Oct 22 2014 1:48PM Hand pain, right Fe 23 2015 1:56PM Chronic Obstructive Pulmonary Disease Jan 12 [...] vaginosis Feb 2015 8:47AM Left shoulder pain Feb 2015 [...] 2018 8:33AM Gastroenteritis Nov 01 2018 8:33AM Payers Insurance Name Company Name Plan Name Plan Number Policy Number Policy Group Number Start Date BCBS [facility] [id number] N/A [employer] Alex 100 PERCENT Tuesday, November 21, 2017 [facility] Financial Assistance [facility] Financial Alex 100 percent Tuesday, November 21, 2017 BCBS [employer] [place] [id number] Friday, October 02, 2009 [employer] [place] [id number] November State Self Insurance Fund *INVALID State Self Insurance [id number] N /A State Self Insurance Fund *INVALID State Self Insurance [id number] N /A [employer] [place] [id number] July [employer] [place] [id number] September History of Encounters Visit Date Visit Type Provider 11/01/2018 Office visit Sean Marie MD 10/16/2018 Office visit Sean Marie MD 08/13/2018 Office visit Aurora Martin HUMAN SERVICES INSTRUCTOR 08/12/2018 Office visit Aurora Martin HUMAN SERVICES INSTRUCTOR 07/25/2018 [facility] Michelle Greco MD 07/20/2018 Office visit [...] Marie MD 04/23/2017 Office visit Aurora Martin HUMAN SERVICES INSTRUCTOR 04/14/2017 Office visit Sean Marie MD 03/20/2017 Office visit Sean Marie MD 03/03/2017 Office visit Aurora Martin HUMAN SERVICES INSTRUCTOR 01/09/2017 Office visit Sean Marie MD 01/02/2017 [...] Marie MD 01/16/2016 Office visit Jania Stanley HUMAN SERVICES INSTRUCTOR 01/07/2016 Hospital Michelle Greco MD 12/31/2015 Office visit Sean Marie MD 12/09/2015 Office visit Miguel A Munoz HUMAN SERVICES INSTRUCTOR 11/17/2015 Office visit Sean Marie MD 11/03/2015 Office visit Sean Marie MD 10/09/2015 Office visit 10/09/2015 Office visit Sean Marie MD 08/31/2015 Office visit Sean Marie MD 08/25/2015 Office visit Sean Marie MD 06/05/2015 Office visit Sean Marie MD 05/07/2015 Office visit Amaris Gentile HUMAN SERVICES INSTRUCTOR 05/06/2015 Office visit Kiarra Ramos HUMAN SERVICES INSTRUCTOR 04/01/2015 Office visit 04/01/2015 Office visit Sean Marie MD 04/01/2015 Hospital Michelle Greco MD 03/26/2015 Office visit Sean Marie MD 03/19/2015 Office visit Sean Marie MD 02/13/2015 Office visit Sean Marie MD 01/26/2015 Office visit Leena Haddad HUMAN SERVICES INSTRUCTOR 01/12/2015 Office visit Sean Marie MD 11/24/2014 Office visit Kiarra Ramos HUMAN SERVICES INSTRUCTOR 10/22/2014 Office visit Miguel A Munoz HUMAN SERVICES INSTRUCTOR 08/22/2014 Office visit Sean Marie MD 08/01/2014 Office visit Sean Marie MD 06/09/2014 Office visit Kiarra Ramos HUMAN SERVICES INSTRUCTOR 03/14/2014 Office visit Leena Haddad HUMAN SERVICES INSTRUCTOR 02/27/2014 Office visit Leena Haddad HUMAN SERVICES INSTRUCTOR 12/02/2013 Office visit Sean Marie MD 11/25/2013 Office visit Sean Marie MD 11/14/2013 Office visit Kiarra Ramos HUMAN SERVICES INSTRUCTOR 08/21/2013 Office visit Leena Haddad HUMAN SERVICES INSTRUCTOR 08/09/2013 Office visit Kiarra Richard HUMAN SERVICES INSTRUCTOR 06/26/2013 Hospital Michelle Greco MD 06/26/2013 Office visit Sean Marie MD 06/21/2013 Office visit Kiarra Ramos HUMAN SERVICES INSTRUCTOR 05/31/2013 Office visit Leena Haddad HUMAN SERVICES INSTRUCTOR 05/10/2013 Office visit Leena Haddad HUMAN SERVICES INSTRUCTOR 05/03/2013 Office visit Leena Haddad HUMAN SERVICES INSTRUCTOR 03/27/2013 Office visit Kiarra Ramos HUMAN SERVICES INSTRUCTOR 03/05/2013 Office visit Kiarra Ramos HUMAN SERVICES INSTRUCTOR 02/27/2013 Office visit Kiarra Ramos HUMAN SERVICES INSTRUCTOR 01/08/2013 Office visit Sean Marie MD 10/30/2012 Office visit Sean Marie MD 04/26/2012 Nurse visit Maria Antonia Barakat HUMAN SERVICES INSTRUCTOR 02/07/2012 Office visit Sean Marie MD 02/07/2012 [facility] Michelle Greco MD 12/13/2011 Office visit Sean Marie MD 11/08/2011 Office visit Sean Marie MD 10/24/2011 Office visit Sean Marie MD 08/05/2011 Office visit Sean Marie MD 07/12/2011 Office visit Kiarra Ramos HUMAN SERVICES INSTRUCTOR 05/11/2011 Office visit Sean Marie MD 04/19/2011 [...]
--- OUTSIDE RECORDS SUMMARY | 2018-12-18 16:51 | XMS REPORT ---
Author Author Sean Marie [facility] Address [address] [place], [place] [id number] Care Team Providers Care Staying Machine Operator Name Role Phone Sean Marie [...] by topical route 3 times per day LEATHER SCRUBBER Thyroid 60 mg oral tablet 08/06/2018 TAKE [...] AFTER TAPER OF 25 MG IS COMPLETE) Augmentin 875-125 mg oral tablet 10/11/2018 10/18/2018 take 1 tablet by oral route every 12 hours for 7 days ropinirole 4 mg oral tablet 10/15/2018 TAKE [...] by oral route 2 times per day [employer] Thyroid 60 mg oral tablet 12/02/2013 take 1 tablet by oral route daily for 30 days [employer] Thyroid 60 mg oral tablet 04/07/2014 TAKE ONE TABLET BY MOUTH ONCE DAILY milk thistle oral 11/24/2014 chromium picolinate oral 06/09/2014 Zofran ODT oral 10/09/2015 Dexilant 60 mg oral capsule,biphase delayed releas 07/09/2014 11/24/2014 TAKE ONE CAPSULE BY MOUTH EVERY DAY [employer] Thyroid 60 mg oral tablet 08/04/2014 TAKE [...] by oral route once daily at bedtime [place] 5-325 mg oral tablet 08/22/2014 11/24/2014 take [...] by topical route 2 times per day [employer] Thyroid 60 mg oral tablet 07/13/2015 TAKE [...] daily in the morning for 30 days [employer] Thyroid 60 mg oral tablet 07/11/2016 08/09/2017 [...] route once daily with the evening meal [place] 10-325 mg oral tablet 01/19/2018 04/30/2018 take [...] HC BMI BSA BMI Percentile O2 Sat(%) 10/16/2018 2:02:00 PM 132 mmHg 76 mmHg [...] 08/25/2015 12:00 AM Decadron, Per 1 Mg [facility]# [address]-39 Reviewed 08/25/2015 12:00 AM Depo-Medrol, Per 80 Mg [facility]#[address]-87 Reviewed 08/25/2015 12:00 AM Rocephin 1 gram [facility]#8887-9875-67 Reviewed 10/09/2015 12:00 AM COMPLETE CBC W/AUTO DIFF WBC Reviewed 10/09/2015 12:00 AM COMPREHEN METABOLIC PANEL Reviewed 10/09/2015 12:00 AM GLYCOSYLATED HEMOGLOBIN TEST Reviewed 10/09/2015 12:00 AM ASSAY THYROID STIM HORMONE Reviewed 11/03/2015 8:54 AM URINALYSIS AUTO W/O SCOPE Reviewed 11/03/2015 12:[address] HEAD/BRAIN W/O & W/DYE Reviewed 11/17/2015 12:00 AM Rocephin 1 gram [facility]#2226-2391-75 Reviewed 08/05/2011 12:00 AM CHEST X-RAY 2VW FRONTAL&LATL Reviewed 12/09/2015 12:00 AM THER/PROPH/DIAG INJ SC/IM Reviewed 12/09/2015 12:00 AM Rocephin 1 gram [facility]#8156-2707-04 Reviewed 11/08/2011 12:00 AM Decadron Inj. per 1mg-[facility] [id number]-Rztsgsdno Reviewed 11/08/2011 12:00 AM Depo-Medrol 80 Mg [facility] [id number] Reviewed 05/20/2016 12:00 AM COMPLETE CBC W/AUTO [...] 10/30/2012 12:00 AM Decadron, Per 1 Mg [facility]# [address]-87 Reviewed 10/30/2012 12:00 AM COMPLETE CBC W/AUTO [...] 01/08/2013 12:00 AM Decadron, Per 1 Mg [facility]# [address]-13 Reviewed 01/08/2013 12:00 AM Rocephin 1 gram [facility]#5433-8598-70 Reviewed 01/08/2013 12:00 AM COMPREHEN METABOLIC PANEL [...] 02/27/2013 12:00 AM Decadron, Per 1 Mg [facility]# [address]-04 Reviewed 02/27/2013 12:00 AM Depo-Medrol, Per 80 Mg [facility]#6140-2863-89 Reviewed 03/04/2013 12:00 AM MAMMOGRAM SCREENING Reviewed 03/05/2013 12:00 AM CYTOPATH TBS C/V MANUAL Reviewed 03/05/2013 12:00 AM MAMMOGRAM BOTH BREASTS Reviewed 03/27/2013 12:00 AM THER/PROPH/DIAG INJ SC/IM Reviewed 03/27/2013 12:00 AM Bicillin CR, 1.2 million units [facility]# 61724-078-76 Reviewed 07/20/2018 12:00 AM X-RAY EXAM OF [...] 12:00 AM Rocephin 1 gram Injection Reviewed 06/26/2013 12:00 AM METABOLIC PANEL TOTAL CA Reviewed 06/26/2013 12:00 AM COMPLETE CBC W/AUTO DIFF WBC Reviewed 02/08/2010 12:00 AM COMPLETE CBC W/AUTO DIFF WBC Reviewed 02/08/2010 12:00 AM COMPREHEN METABOLIC PANEL Reviewed 02/08/2010 12:00 AM LIPID PANEL Reviewed 08/09/2013 12:00 AM THER/PROPH/DIAG INJ SC/IM Reviewed 08/09/2013 12:00 AM Decadron, Per 1 Mg [facility]# [address]-24 Reviewed 08/09/2013 12:00 AM Depo-Medrol, Per 80 Mg [facility]#2105-0147-96 Reviewed 08/21/2013 12:00 AM X-RAY EXAM OF [...] Reviewed 03/26/2015 12:00 AM Rocephin 1 gram [facility]#4350-9180-78 Reviewed 04/01/2015 12:00 AM COMPLETE CBC W/AUTO DIFF WBC Reviewed 04/01/2015 12:00 AM COMPREHEN METABOLIC PANEL Reviewed 04/01/2015 12:00 AM ASSAY THYROID STIM HORMONE Reviewed 04/01/2015 12:00 AM CHEST X-RAY 2VW FRONTAL&LATL Reviewed 05/07/2015 12:00 AM THER/PROPH/DIAG INJ SC/IM Reviewed 05/07/2015 12:00 AM Decadron injection Reviewed 05/07/2015 12:00 AM Depo-Medrol 40mg Reviewed 05/11/2011 12:00 AM Depo-Medrol 80 Mg [facility] [id number] Reviewed 05/11/2011 12:00 AM Decadron Inj. per 1mg-[facility] [id number]-Tdlcvcoyt Reviewed Results Summary Date and Description Results [...] Vis Given Vis Pub CVX Tdap 04/26/2012 [employer] SKB ADACEL [id number] Intramuscular Left Arm 04/26/2012 08/19/2008 115 Tdap 03/14/2014 [employer] SKB BOOSTRIX [id number] Intramuscular Left Deltoid 03/14/2014 02/07/2013 115 Influenza 06/22/2015 [facility] Pam[facility]. NOV FLUVIRIN [id number] Intramuscular Left Deltoid 06/23/2015 05/08/2015 140 Pneumococcal 09/16/2015 Not Entered [place] PNEUMOVAX 23 Intramuscular Not Entered 11/11/2016 10/02/2018 33 Influenza 07/07/2017 [employer] Fluzone Quadrivalent [id number] Intramuscular Left Deltoid 07/07/2017 05/08/2015 150 History [...] Upper Respiratory Infection Oct 16 2018 2:10PM Payers Insurance Name Company Name Plan Name Plan Number Policy Number Policy Group Number Start Date BCBS [employer] [place] [id number] N/A [email or web address] Financial Assistance [email or web address] Alex 100 PERCENT Tuesday, November 21, 2017 [email or web address] Alex 100 percent Tuesday, November 21, 2017 [employer] [place] [id number] Friday, October 02, 2009 [employer] [place] [id number] November State Self Insurance Fund *INVALID State Self Insurance [id number] N /A State Self Insurance Fund *INVALID State Self Insurance [id number] N /A [employer] [place] [id number] July [employer] [place] [id number] September History of Encounters Visit Date Visit Type Provider 10/16/2018 Office visit Sean Marie MD 08/13/2018 Office visit Aurora Martin MOLD MAKING PLASTICS SHEETS SUPERVISOR 08/12/2018 Office visit Aurora Martin MOLD MAKING PLASTICS SHEETS SUPERVISOR 07/25/2018 Hospital Michelle Greco MD 07/20/2018 Office visit Sean Marie MD 05/22/2018 Office visit Sean Marie MD 04/30/2018 Office visit Sean Marie MD 04/11/2018 Office visit Fredissuzan Lama DO 03/29/2018 Office visit Sean Marie MD 03/09/2018 Office visit Sean Marie MD 02/28/2018 Office visit Fredissuzan Rico DO 01/29/[address] Laine [...] Sean Marie MD 04/23/2017 Office visit Aurora SalmeronEd Mario MOLD MAKING PLASTICS SHEETS SUPERVISOR 04/14/2017 Office visit Sean Marie MD 03/20/2017 Office visit Sean Marie MD 03/03/2017 Office visit Aurora Martin MOLD MAKING PLASTICS SHEETS SUPERVISOR 01/09/2017 Office visit Sean Marie MD 01/02/2017 [...] MD 12/09/2015 Office visit Miguel A Munoz MOLD MAKING PLASTICS SHEETS SUPERVISOR 11/17/2015 Office visit Sean Marie MD 11/03/2015 Office visit Sean Marie MD 10/09/2015 Office visit 10/09/2015 Office visit Sean Marie MD 08/31/2015 Office visit Sean Marie MD 08/25/2015 Office visit Sean Marie MD 06/05/2015 Office visit Sean Marie MD 05/07/2015 Office visit Amaris Gentile MOLD MAKING PLASTICS SHEETS SUPERVISOR 05/06/2015 Office visit Kiarra Ramos MOLD MAKING PLASTICS SHEETS SUPERVISOR 04/01/2015 Office visit 04/01/2015 Office visit Sean Marie MD 04/01/2015 Hospital Michelle Greco MD 03/26/2015 Office visit Sean Marie MD 03/19/2015 Office visit Sean Marie MD 02/13/2015 Office visit Sean Marie MD 01/26/2015 Office visit Leena Haddad MOLD MAKING PLASTICS SHEETS SUPERVISOR 01/12/2015 Office visit Sean Marie MD 11/24/2014 Office visit Kiarra Ramos MOLD MAKING PLASTICS SHEETS SUPERVISOR 10/22/2014 Office visit Miguel A Munoz MOLD MAKING PLASTICS SHEETS SUPERVISOR 08/22/2014 Office visit Sean Marie MD 08/01/2014 Office visit Sean Marie MD 06/09/2014 Office visit Kiarra Ramos MOLD MAKING PLASTICS SHEETS SUPERVISOR 03/14/2014 Office visit Leena Haddad MOLD MAKING PLASTICS SHEETS SUPERVISOR 02/27/2014 Office visit Leena Haddad MOLD MAKING PLASTICS SHEETS SUPERVISOR 12/02/2013 Office visit Sean Marie MD 11/25/2013 Office visit Sean Marie MD 11/14/2013 Office visit Kiarra Ramos MOLD MAKING PLASTICS SHEETS SUPERVISOR 08/21/2013 Office visit Leena Haddad MOLD MAKING PLASTICS SHEETS SUPERVISOR 08/09/2013 Office visit Kiarra Ramos MOLD MAKING PLASTICS SHEETS SUPERVISOR 06/26/2013 Hospital Michelle Greco MD 06/26/2013 Office visit Sean Marie MD 06/21/2013 Office visit Kiarra Ramos MOLD MAKING PLASTICS SHEETS SUPERVISOR 05/31/2013 Office visit Leena Haddad MOLD MAKING PLASTICS SHEETS SUPERVISOR 05/10/2013 Office visit Leena Haddad MOLD MAKING PLASTICS SHEETS SUPERVISOR 05/03/2013 Office visit Leena Haddad MOLD MAKING PLASTICS SHEETS SUPERVISOR 03/27/2013 Office visit Kiarra Ramos MOLD MAKING PLASTICS SHEETS SUPERVISOR 03/05/2013 Office visit Kiarra Ramos MOLD MAKING PLASTICS SHEETS SUPERVISOR 02/27/2013 Office visit Kiarra Ramos MOLD MAKING PLASTICS SHEETS SUPERVISOR 01/08/2013 Office visit Sean Marie MD 10/30/2012 Office visit Sean Marie MD 04/26/2012 Nurse visit Maria Antonia Barakat MOLD MAKING PLASTICS SHEETS SUPERVISOR 02/07/2012 Office visit Sean Marie MD 02/07/2012 [facility] Marcela Greco MD 12/13/2011 Office visit Sean Marie MD 11/08/2011 Office visit Sean Marie MD 10/24/2011 Office visit Sean Marie MD 08/05/2011 Office visit Sean Marie MD 07/12/2011 Office visit Kiarra Ramos MOLD MAKING PLASTICS SHEETS SUPERVISOR 05/11/2011 Office visit Sean Marie MD [...]
--- OUTSIDE RECORDS SUMMARY | 2018-12-18 16:54 | XMS REPORT ---
Author Author Aurora Martin Organization [facility] Address [address] [place] [id number] Care Team Providers Care Paperhanger Apprentice Name Role Phone Aurora Martin PCP Sean Marie PreferredProvider Allergies and Adverse [...] by topical route 3 times per day RECORDS MANAGEMENT TECHNICIAN Thyroid 60 mg oral tablet 08/06/2018 TAKE [...] AFTER TAPER OF 25 MG IS COMPLETE) Name Start Date Expiration Date SIG Comments [...] by oral route daily for 30 days [place] Thyroid 60 mg oral tablet 04/07/2014 TAKE ONE TABLET BY MOUTH ONCE DAILY milk thistle oral 11/24/2014 chromium picolinate oral 06/09/2014 Zofran ODT oral 10/09/2015 Dexilant 60 mg oral capsule,biphase delayed releas 07/09/2014 11/24/2014 TAKE ONE CAPSULE BY MOUTH EVERY DAY [place] Thyroid 60 mg oral tablet 08/04/2014 TAKE [...] by oral route once daily at bedtime [place] 5-325 mg oral tablet 08/22/2014 11/24/2014 take [...] by topical route 2 times per day [place] Thyroid 60 mg oral tablet 07/13/2015 TAKE [...] daily in the morning for 30 days [place] Thyroid 60 mg oral tablet 07/11/2016 08/09/2017 [...] route once daily with the evening meal [place] 10-325 mg oral tablet 01/19/2018 04/30/2018 take [...] HC BMI BSA BMI Percentile O2 Sat(%) 08/13/2018 12:57:00 PM 142 mmHg 90 mmHg [...] 08/25/2015 12:00 AM Decadron, Per 1 Mg [facility]# [address]-35 Reviewed 08/25/2015 12:00 AM Depo-Medrol, Per 80 Mg [facility]#[address]-59 Reviewed 08/25/2015 12:00 AM Rocephin 1 gram [facility]#2277-6108-23 Reviewed 10/09/2015 12:00 AM COMPLETE CBC W/AUTO DIFF WBC Reviewed 10/09/2015 12:00 AM COMPREHEN METABOLIC PANEL Reviewed 10/09/2015 12:00 AM GLYCOSYLATED HEMOGLOBIN TEST Reviewed 10/09/2015 12:00 AM ASSAY THYROID STIM HORMONE Reviewed 11/03/2015 8:54 AM URINALYSIS AUTO W/O SCOPE Reviewed 11/03/2015 12:[address] HEAD/BRAIN W/O & W/DYE Reviewed 11/17/2015 12:00 AM Rocephin 1 gram [facility]#2367-2201-10 Reviewed 08/05/2011 12:00 AM CHEST X-RAY 2VW FRONTAL&LATL Reviewed 12/09/2015 12:00 AM THER/PROPH/DIAG INJ SC/IM Reviewed 12/09/2015 12:00 AM Rocephin 1 gram [facility]#5158-6210-65 Reviewed 11/08/2011 12:00 AM Decadron Inj. per 1mg-[facility] [place] [id number] Reviewed 11/08/2011 12:00 AM Depo-Medrol 80 Mg [facility] [id number] Reviewed 05/20/2016 12:00 AM COMPLETE CBC W/AUTO [...] 10/30/2012 12:00 AM Decadron, Per 1 Mg [facility]# [address]-01 Reviewed 10/30/2012 12:00 AM COMPLETE CBC W/AUTO [...] 01/08/2013 12:00 AM Decadron, Per 1 Mg [facility]# [address]-96 Reviewed 01/08/2013 12:00 AM Rocephin 1 gram [facility]#0943-0906-84 Reviewed 01/08/2013 12:00 AM COMPREHEN METABOLIC PANEL [...] 02/27/2013 12:00 AM Decadron, Per 1 Mg [facility]# [address]-10 Reviewed 02/27/2013 12:00 AM Depo-Medrol, Per 80 Mg [facility]#9763-1732-13 Reviewed 03/04/2013 12:00 AM MAMMOGRAM SCREENING Reviewed 03/05/2013 12:00 AM CYTOPATH TBS C/V MANUAL Reviewed 03/05/2013 12:00 AM MAMMOGRAM BOTH BREASTS Reviewed 03/27/2013 12:00 AM THER/PROPH/DIAG INJ SC/IM Reviewed 03/27/2013 12:00 AM Bicillin CR, 1.2 million units [facility]# 25321-373-36 Reviewed 07/20/2018 12:00 AM X-RAY EXAM OF [...] 08/09/2013 12:00 AM Decadron, Per 1 Mg [facility]# [address]-84 Reviewed 08/09/2013 12:00 AM Depo-Medrol, Per 80 Mg [facility]#4019-0743-46 Reviewed 08/21/2013 12:00 AM X-RAY EXAM OF [...] Reviewed 03/26/2015 12:00 AM Rocephin 1 gram [facility]#8266-7707-70 Reviewed 04/01/2015 12:00 AM COMPLETE CBC W/AUTO DIFF WBC Reviewed 04/01/2015 12:00 AM COMPREHEN METABOLIC PANEL Reviewed 04/01/2015 12:00 AM ASSAY THYROID STIM HORMONE Reviewed 04/01/2015 12:00 AM CHEST X-RAY 2VW FRONTAL&LATL Reviewed 05/07/2015 12:00 AM THER/PROPH/DIAG INJ SC/IM Reviewed 05/07/2015 12:00 AM Decadron injection Reviewed 05/07/2015 12:00 AM Depo-Medrol 40mg Reviewed 05/11/2011 12:00 AM Depo-Medrol 80 Mg [facility] [id number] Reviewed 05/11/2011 12:00 AM Decadron Inj. per 1mg-[facility] [place] [id number]-Hhavclwwc Reviewed Results Summary Date and Description Results [...] Vis Given Vis Pub CVX Tdap 04/26/2012 [employer] ADACEL [id number] Intramuscular Left Arm 04/26/2012 08/19/2008 115 Tdap 03/14/2014 [employer] SKB BOOSTRIX [id number] Intramuscular Left Deltoid 03/14/2014 02/07/2013 115 Influenza 06/22/2015 [employer]. NOV FLUVIRIN [id number] Intramuscular Left Deltoid 06/23/2015 05/08/2015 140 Pneumococcal 09/16/2015 Not Entered [place] PNEUMOVAX 23 Intramuscular Not Entered 11/11/2016 10/02/2018 33 Influenza 07/07/2017 [facility] Fluzone Quadrivalent [id number] Intramuscular Left Deltoid 07/07/2017 05/08/2015 150 History [...] 1:20PM COPD exacerbation Aug 13 2018 12:59PM Payers Insurance Name Company Name Plan Name Plan Number Policy Number Policy Group Number Start Date BCBS [employer] [place] [id number] N/A [employer] Financial Assistance [employer] Alex 100 PERCENT Tuesday, November 21, 2017 [employer] Financial Assistance [employer] Alex 100 percent Tuesday, November 21, 2017 [employer] [place] [id number] Friday, October 02, 2009 [employer] [place] [id number] November State Self Insurance Fund *INVALID State Self Insurance [id number] N /A State Self Insurance Fund *INVALID State Self Insurance [id number] N /A [employer] [place] [id number] July [employer] [place] [id number] September History of Encounters Visit Date Visit Type Provider 08/13/2018 Office visit Aurora Martin APRN 08/12/2018 Office visit Aurora Martin APRN 07/25/2018 [facility] Michelle Greco MD 07/20/2018 Office visit [...] visit Fredis Rico DO 10/23/2017 Office visit eSan Marie MD 09/20/2017 Office visit Fredis Rico DO 08/31/2017 Office visit Fredis Rico DO 08/09/2017 Office visit Sean Marie MD 07/07/2017 Office visit Sean Marie MD 06/16/2017 Office visit Sean Marie MD 05/15/2017 Office visit Sean Marie MD 04/23/2017 Office visit Aurora Martin SANDBLAST CARVER 04/14/2017 Office visit Sean Marie MD 03/20/2017 Office visit Sean Marie MD 03/03/2017 Office visit Aurora Martin SANDBLAST CARVER 01/09/2017 Office visit Sean Marie MD 01/02/2017 Office visit Sean Marie MD 12/27/2016 Office visit Sean Marie MD 2016 Office visit Sean Marie MD 09/19/2016 Office visit Sean Marie MD 07/01/2016 Office visit Sean Marie MD 06/17/2016 Office visit Sean Marie MD 05/20/2016 Office visit 05/20/2016 Office visit Sean Marie MD 05/16/2016 [facility] Michelle Greco MD 04/01/2016 Office visit Sean Marie MD 02/25/2016 Office visit Sean Marie MD 01/16/2016 Office visit Jania Stanley SANDBLAST CARVER 01/07/2016 Hospital Michelle Greco MD 12/31/2015 Office visit Sean Marie MD 12/09/2015 Office visit Miguel A Munoz SANDBLAST CARVER 11/17/2015 Office visit Sean Marie MD 11/03/2015 Office visit Sean Marie MD 10/09/2015 Office visit 10/09/2015 Office visit Sean Marie MD 08/31/2015 Office visit Sean Marie MD 08/25/2015 Office visit Sean Marie MD 06/05/2015 Office visit Sean Marie MD 05/07/2015 Office visit Amaris Gentile SANDBLAST CARVER 05/06/2015 Office visit Kiarra Ramos SANDBLAST CARVER 04/01/2015 Office visit 04/01/2015 Office visit Sean Marie MD 04/01/2015 Hospital Michelle Greco MD 03/26/2015 Office visit Sean Marie MD 03/19/2015 Office visit Sean Marie MD 02/13/2015 Office visit Sean Marie MD 01/26/2015 Office visit Leena Haddad SANDBLAST CARVER 01/12/2015 Office visit Sean Marie MD 11/24/2014 Office visit Kiarra Ramos SANDBLAST CARVER 10/22/2014 Office visit Miguel A Munoz SANDBLAST CARVER 08/22/2014 Office visit Sean Marie MD 08/01/2014 Office visit Sean Marie MD 06/09/2014 Office visit Kiarra Ramos SANDBLAST CARVER 03/14/2014 Office visit Leena Haddad SANDBLAST CARVER 02/27/2014 Office visit Leena Haddad SANDBLAST CARVER 12/02/2013 Office visit Sean Marie MD 11/25/2013 Office visit Sean Marie MD 11/14/2013 Office visit Kiarra Ramos SANDBLAST CARVER 08/21/2013 Office visit Leena Haddad SANDBLAST CARVER 08/09/2013 Office visit Kiarra Ramos SANDBLAST CARVER 06/26/2013 Hospital Michelle Greco MD 06/26/2013 Office visit Sean Marie MD 06/21/2013 Office visit Kiarra Ramos SANDBLAST CARVER 05/31/2013 Office visit Leena Haddad SANDBLAST CARVER 05/10/2013 Office visit Lenea Haddad SANDBLAST CARVER 05/03/2013 Office visit Leena Haddad SANDBLAST CARVER 03/27/2013 Office visit Kiarra Ramos SANDBLAST CARVER 03/05/2013 Office visit Kiarra Ramos SANDBLAST CARVER 02/27/2013 Office visit Kiarra Ramos SANDBLAST CARVER 01/08/2013 Office visit Sean Marie MD 10/30/2012 Office visit Sean Marie MD 04/26/2012 Nurse visit Maria Antonia Barakat SANDBLAST CARVER 02/07/2012 Office visit Sena Marie MD 02/07/2012 Hospital Michelle Greco MD 12/13/2011 Office visit Sean Marie MD 11/08/2011 Office visit Sean Marie MD 10/24/2011 Office visit Sean Marie MD 08/05/2011 Office visit Sean Marie MD 07/12/2011 Office visit Kiarra Ramos SANDBLAST CARVER 05/11/2011 Office visit Sean Marie MD 04/19/2011 [...]
--- OUTSIDE RECORDS SUMMARY | 2018-12-18 16:56 | XMS REPORT ---
Author Author Aurora Martin Organization [facility] Address [address] [place] [id number] Care Team Providers Care Tin Tie Machine Operator Automatic Name Role Phone Aurora Martin PCP Sean [...] by topical route 3 times per day REGISTERED RADIATION THERAPIST Thyroid 60 mg oral tablet 08/06/2018 TAKE [...] by oral route daily for 30 days [place] Thyroid 60 mg oral tablet 04/07/2014 TAKE ONE TABLET BY MOUTH ONCE DAILY milk thistle oral 11/24/2014 chromium picolinate oral 06/09/2014 Zofran ODT oral 10/09/2015 Dexilant 60 mg oral capsule,biphase delayed releas 07/09/2014 11/24/2014 TAKE ONE CAPSULE BY MOUTH EVERY DAY [place] Thyroid 60 mg oral tablet 08/04/2014 TAKE [...] by oral route once daily at bedtime [place] 5-325 mg oral tablet 08/22/2014 11/24/2014 take [...] by topical route 2 times per day [place] Thyroid 60 mg oral tablet 07/13/2015 TAKE [...] daily in the morning for 30 days [place] Thyroid 60 mg oral tablet 07/11/2016 08/09/2017 [...] route once daily with the evening meal [place] 10-325 mg oral tablet 01/19/2018 04/30/2018 take [...] Per 1 Mg [facility]# [address]-73 Reviewed 08/25/2015 12:00 AM Depo-Medrol, Per 80 Mg [facility]#[address]-36 Reviewed 08/25/2015 12:00 AM Rocephin 1 gram [facility]#8743-3898-67 Reviewed 10/09/2015 12:00 AM COMPLETE CBC W/AUTO DIFF WBC Reviewed 10/09/2015 12:00 AM COMPREHEN METABOLIC PANEL Reviewed 10/09/2015 12:00 AM GLYCOSYLATED HEMOGLOBIN TEST Reviewed 10/09/2015 12:00 AM ASSAY THYROID STIM HORMONE Reviewed 11/03/2015 8:54 AM URINALYSIS AUTO W/O SCOPE Reviewed 11/03/2015 12:[address] HEAD/BRAIN W/O & W/DYE Reviewed 11/17/2015 12:00 AM Rocephin 1 gram [facility]#0681-7521-24 Reviewed 08/05/2011 12:00 AM CHEST X-RAY 2VW FRONTAL&LATL Reviewed 12/09/2015 12:00 AM THER/PROPH/DIAG INJ SC/IM Reviewed 12/09/2015 12:00 AM Rocephin 1 gram [facility]#3161-9444-69 Reviewed 11/08/2011 12:00 AM Decadron Inj. per 1mg-[facility] [id number] Reviewed 11/08/2011 12:00 AM Depo-Medrol 80 Mg [facility] [id number] Reviewed 05/20/2016 12:00 AM COMPLETE CBC W/AUTO [...] Per 1 Mg [facility]# [address]-71 Reviewed 10/30/2012 12:00 AM COMPLETE CBC W/AUTO [...] Per 1 Mg [facility]# [address]-64 Reviewed 01/08/2013 12:00 AM Rocephin 1 gram [facility]#2996-3078-56 Reviewed 01/08/2013 12:00 AM COMPREHEN METABOLIC PANEL [...] Per 1 Mg [facility]# [address]-20 Reviewed 02/27/2013 12:00 AM Depo-Medrol, Per 80 Mg [facility]#5992-3395-97 Reviewed 03/04/2013 12:00 AM MAMMOGRAM SCREENING Reviewed 03/05/2013 12:00 AM CYTOPATH TBS C/V MANUAL Reviewed 03/05/2013 12:00 AM MAMMOGRAM BOTH BREASTS Reviewed 03/27/2013 12:00 AM THER/PROPH/DIAG INJ SC/IM Reviewed 03/27/2013 12:00 AM Bicillin CR, 1.2 million units [facility]# 40752-691-30 Reviewed 07/20/2018 12:00 AM X-RAY EXAM OF FOOT Returned 07/31/2018 12:00 AM VIT D 1 25-DIHYDROXY Returned 08/13/2018 12:00 AM Rocephin 1 gram Injection Reviewed 05/10/2013 12:00 AM X-RAY EXAM KNEE 4 OR MORE Reviewed 05/10/2013 12:00 AM Physical Therapy Consult Reviewed 08/12/2018 12:00 AM THER/PROPH/DIAG INJ SC/IM Reviewed 08/12/2018 12:00 AM Rocephin 1 gram Injection Reviewed 08/12/2018 12:00 AM Decadron 4mg Injection Reviewed 08/12/2018 12:00 AM Depo-Medrol 40mg Injection Reviewed 06/26/2013 12:00 AM METABOLIC PANEL TOTAL CA Reviewed 06/26/2013 12:00 AM COMPLETE CBC W/AUTO DIFF WBC Reviewed 02/08/2010 12:00 AM COMPLETE CBC W/AUTO DIFF WBC Reviewed 02/08/2010 12:00 AM COMPREHEN METABOLIC PANEL Reviewed 02/08/2010 12:00 AM LIPID PANEL Reviewed 08/09/2013 12:00 AM THER/PROPH/DIAG INJ SC/IM Reviewed 08/09/2013 12:00 AM Decadron, Per 1 Mg [facility]# [address]-73 Reviewed 08/09/2013 12:00 AM Depo-Medrol, Per 80 Mg [facility]#8285-4770-10 Reviewed 08/21/2013 12:00 AM X-RAY EXAM OF [...] AM Rocephin 1 gram [facility]#5551-3343-87 Reviewed 04/01/2015 12:00 AM COMPLETE CBC W/AUTO DIFF WBC Reviewed 04/01/2015 12:00 AM COMPREHEN METABOLIC PANEL Reviewed 04/01/2015 12:00 AM ASSAY THYROID STIM HORMONE Reviewed 04/01/2015 12:00 AM CHEST X-RAY 2VW FRONTAL&LATL Reviewed 05/07/2015 12:00 AM THER/PROPH/DIAG INJ SC/IM Reviewed 05/07/2015 12:00 AM Decadron injection Reviewed 05/07/2015 12:00 AM Depo-Medrol 40mg Reviewed 05/11/2011 12:00 AM Depo-Medrol 80 Mg [facility] [id number] Reviewed 05/11/2011 12:00 AM Decadron Inj. per 1mg-[facility] [id number]-Wubboovij Reviewed Results Summary Date and Description Results [...] Vis Given Vis Pub CVX Tdap 04/26/2012 [employer] ADACEL [id number] Intramuscular Left Arm 04/26/2012 08/19/2008 115 Tdap 03/14/2014 [employer] SKB BOOSTRIX [id number] Intramuscular Left Deltoid 03/14/2014 02/07/2013 115 Influenza 06/22/2015 [employer]. NOV FLUVIRIN [id number] Intramuscular Left Deltoid 06/23/2015 05/08/2015 140 Pneumococcal 09/16/2015 Not Entered [place] PNEUMOVAX 23 Intramuscular Not Entered 11/11/2016 10/02/2018 33 Influenza 07/07/2017 [facility] Fluzone Quadrivalent [id number] Intramuscular Left Deltoid 07/07/2017 05/08/2015 150 History [...] 10:08AM COPD exacerbation Aug 12 2018 1:20PM Payers Insurance Name Company Name Plan Name Plan Number Policy Number Policy Group Number Start Date BCBS [employer] [place] [id number] N/A [employer] Financial Assistance [employer] Alex 100 PERCENT Tuesday, November 21, 2017 [employer] Assistance [employer] Alex 100 percent Tuesday, November 21, 2017 [employer] [place] [id number] Friday, October 02, 2009 [employer] [place] [id number] November State Self Insurance Fund *INVALID State Self Insurance [id number] N /A State Self Insurance Fund *INVALID State Self Insurance [id number] N /A [employer] [place] [id number] July [employer] [place] [id number] September History of Encounters Visit Date Visit Type Provider 08/13/2018 Office visit Aurora Martin APRN 08/12/2018 Office visit Aurora Martin APRN 07/25/2018 [facility] Michelle Greco MD 07/20/2018 Office visit Sean [...] Marie MD 04/23/2017 Office visit Aurora Martin PRIMER WATERPROOFING MACHINE ADJUSTER 04/14/2017 Office visit Sean Marie MD 03/20/2017 Office visit Sean Marie MD 03/03/2017 Office visit Aurora Martin PRIMER WATERPROOFING MACHINE ADJUSTER 01/09/2017 Office visit Sean Marie MD 01/02/2017 [...] Marie MD 01/16/2016 Office visit Jania Stanley PRIMER WATERPROOFING MACHINE ADJUSTER 01/07/2016 Hospital Michelle Greco MD 12/31/2015 Office visit Sean Marie MD 12/09/2015 Office visit Miguel A Munoz PRIMER WATERPROOFING MACHINE ADJUSTER 11/17/2015 Office visit Sean Marie MD 11/03/2015 Office visit Sean Marie MD 10/09/2015 Office visit 10/09/2015 Office visit Sean Marie MD 08/31/2015 Office visit Sean Marie MD 08/25/2015 Office visit Sean Marie MD 06/05/2015 Office visit Sean Marie MD 05/07/2015 Office visit Amaris Gentile PRIMER WATERPROOFING MACHINE ADJUSTER 05/06/2015 Office visit Kiarra Ramos PRIMER WATERPROOFING MACHINE ADJUSTER 04/01/2015 Office visit 04/01/2015 Office visit Sean Marie MD 04/01/2015 Hospital Michelle Greco MD 03/26/2015 Office visit Sean Marie MD 03/19/2015 Office visit Sean Marie MD 02/13/2015 Office visit Sean Marie MD 01/26/2015 Office visit Leena Haddad PRIMER WATERPROOFING MACHINE ADJUSTER 01/12/2015 Office visit Sean Marie MD 11/24/2014 Office visit Kiarra Ramos PRIMER WATERPROOFING MACHINE ADJUSTER 10/22/2014 Office visit Miguel A Munoz PRIMER WATERPROOFING MACHINE ADJUSTER 08/22/2014 Office visit Sean Marie MD 08/01/2014 Office visit Sean Marie MD 06/09/2014 Office visit Kiarra Ramos PRIMER WATERPROOFING MACHINE ADJUSTER 03/14/2014 Office visit Leena Haddad PRIMER WATERPROOFING MACHINE ADJUSTER 02/27/2014 Office visit Leena Haddad PRIMER WATERPROOFING MACHINE ADJUSTER 12/02/2013 Office visit Sean Marie MD 11/25/2013 Office visit Sean Marie MD 11/14/2013 Office visit Kiarra Ramos PRIMER WATERPROOFING MACHINE ADJUSTER 08/21/2013 Office visit Leena Haddad PRIMER WATERPROOFING MACHINE ADJUSTER 08/09/2013 Office visit Kiarra Ramos PRIMER WATERPROOFING MACHINE ADJUSTER 06/26/2013 Hospital Michelle Greco MD 06/26/2013 Office visit Sean Marie MD 06/21/2013 Office visit Kiarra Ramos PRIMER WATERPROOFING MACHINE ADJUSTER 05/31/2013 Office visit Leena Haddad PRIMER WATERPROOFING MACHINE ADJUSTER 05/10/2013 Office visit Leena Haddad PRIMER WATERPROOFING MACHINE ADJUSTER 05/03/2013 Office visit Leena Haddad PRIMER WATERPROOFING MACHINE ADJUSTER 03/27/2013 Office visit Kiarra Ramos PRIMER WATERPROOFING MACHINE ADJUSTER 03/05/2013 Office visit Kiarra Ramos PRIMER WATERPROOFING MACHINE ADJUSTER 02/27/2013 Office visit Kiarra Ramos PRIMER WATERPROOFING MACHINE ADJUSTER 01/08/2013 Office visit Sean Marie MD 10/30/2012 Office visit Sean Marie MD 04/26/2012 Nurse visit Maria Antonia Barakat PRIMER WATERPROOFING MACHINE ADJUSTER 02/07/2012 Office visit Sean Marie MD 02/07/2012 Hospital Michelle Greco MD 12/13/2011 Office visit Sean Marie MD 11/08/2011 Office visit Sean Marie MD 10/24/2011 Office visit Sean Marie MD 08/05/2011 Office visit Sean Marie MD 07/12/2011 Office visit Kiarra Ramos PRIMER WATERPROOFING MACHINE ADJUSTER 05/11/2011 Office visit Sean Marie MD 04/19/2011 [...]
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
[2018-12-18] MEDS ORDERED: IOHEXOL 350 MG/ML 100 ML (OMNIPAQUE 350) VIAL IV ONE (18:00)
[2018-12-18] MEDS ORDERED: NS IV 1000 ML 1,000 ML IV SCH (18:00)
[2018-12-18] MEDS ORDERED: KETOROLAC 30 MG/ML VIAL IVP ONE (18:00)
[2018-12-18] MEDS ORDERED: PROMETHAZINE INJ 25 MG/ML (PHENERGAN) AMP IVP ONE (18:00)
[2018-12-18] MEDS ORDERED: HOLD METFORMIN - RECEIVED CONTRAST 20 ML VIAL IV SCH (18:00)
[2018-12-18 18:19] LABS: BASOPHILS % (AUTO) 1 % (0-10); EOSINOPHILS # (AUTO) 0.1 10^3/uL (0.0-0.3); EOSINOPHILS % (AUTO) 1 % (0-10); HEMATOCRIT 39 % (35-52); HEMOGLOBIN 12.3 G/DL (11.5-16.0); LYMPHOCYTES # (AUTO) 0.9 X 10^3 (1.0-4.0); LYMPHOCYTES % (AUTO) 13 % (12-44); MEAN CORPUSCULAR HEMOGLOBIN 25 PG (25-34); MEAN CORPUSCULAR HGB CONC 32 G/DL (32-36); MEAN CORPUSCULAR VOLUME 78 FL (80-99); MEAN PLATELET VOLUME 11.3 FL (7.4-10.4); MONOCYTES # (AUTO) 1.5 X 10^3 (0.0-1.0); MONOCYTES % (AUTO) 22 % (0-12); NEUTROPHILS # (AUTO) 4.2 X 10^3 (1.8-7.8); NEUTROPHILS % (AUTO) 63 % (42-75); PLATELET COUNT 255 10^3/uL (130-400); WHITE BLOOD COUNT 6.6 10^3/uL (4.3-11.0)
[2018-12-18 18:35] LABS: ALANINE AMINOTRANSFERASE 14 U/L (0-55); ALBUMIN 3.6 GM/DL (3.2-4.5); ALKALINE PHOSPHATASE 115 U/L (40-136); BILIRUBIN,TOTAL 0.6 MG/DL (0.1-1.0); BUN/CREATININE RATIO 27; CALCIUM 9.6 MG/DL (8.5-10.1); CARBON DIOXIDE 25 MMOL/L (21-32); CHLORIDE 98 MMOL/L (98-107); CREATININE SERUM 1.69 MG/DL (0.60-1.30); GFR ESTIMATED 31; GLUCOSE 113 MG/DL (70-105); LIPASE < 4 U/L (8-78); POTASSIUM 3.4 MMOL/L (3.6-5.0); SODIUM 136 MMOL/L (135-145); TOTAL PROTEIN 6.5 GM/DL (6.4-8.2)
--- OUTSIDE RECORDS SUMMARY | 2018-12-18 18:37 | XMS REPORT | Continuity of Care Document ---
Author Author [facility] Address Unknown Phone Unavailable Allergies Active Description Code Type Severity Reaction Onset Reported/Identified Relationship to Patient Clinical Status Yes ALBUTEROL [id number] DRUG N/A TACHYCARDIA Yes PERCOCET [id number] BRANDNAME N/ A ITCHING Yes No Allergy Information Available [id number] Drug Allergy Unknown N/A 2016 Yes acetaminophen [id number] Drug Allergy Unknown N/A 07/18/2018 Yes albuterol [id number] Drug Allergy Unknown tachycardia 07/18/2018 Yes estrogens, conjugated [id number] Drug Allergy Unknown N/A 07/18/2018 Yes oxycodone [id number] Drug Allergy Unknown N/A 07/18/2018 Yes pregabalin [id number] Drug Allergy Unknown N/A 07/18/2018 Yes albuterol [id number] Drug Allergy Severe tachycardia 08/27/2018 Yes estrogens, conjugated [id number] Drug Allergy Severe PE 08/27/2018 Yes pregabalin [id number] Drug Allergy Moderate VISION PROBLEMS 08/27/2018 Yes acetaminophen [id number] Drug Allergy Mild ITCHING 08/27/2018 Yes oxycodone [id number] Drug Allergy Mild ITCHING 08/27/2018 Yes oxycodone [id number] Drug Allergy Mild ITCHING, Pt dede 09/10/2018 Medications Medication Packaging Start Date Stop Date [...] 08/06/2018 08/27/2018 300 mg GABAPENTIN Tablet 08/27/2018 12/03/2018 800 mg GABAPENTIN Tablet 12/03/2018 800 mg Problems Date Dx Coded Attending [...] NONTOXIC SINGLE THYROID NODULE 07/12/2017 WEN POOL DO, Ot I26.99 OTHER PULMONARY EMBOLISM WITHOUT ACUTE C 07/12/2017 WEN POOL DO, Ot K43.9 VENTRAL HERNIA WITHOUT OBSTRUCTION OR GA 07/12/2017 WEN POOL DO Ot K76.0 FATTY (CHANGE OF) LIVER, NOT ELSEWHERE C 07/12/2017 WEN POOL DO Ot R22.43 LOCALIZED SWELLING, MASS AND LUMP, LOWER 07/12/2017 AUDREY AYOUB APRN Ot J44.9 CHRONIC OBSTRUCTIVE PULMONARY DISEASE, U 10/17/2017 P R300 Dysuria 10/19/2017 AUDREY AYOUB PIZZA DELIVERY Ot G47.30 SLEEP APNEA, UNSPECIFIED 10/19/2017 AUDREY AYOUB PIZZA DELIVERY Ot J42 UNSPECIFIED CHRONIC BRONCHITIS 10/19/2017 AUDREY AYOUB APRN Ot J44.9 CHRONIC OBSTRUCTIVE PULMONARY DISEASE, U 10/19/2017 AUDREY AYOUB APRN Ot J45.909 UNSPECIFIED ASTHMA, UNCOMPLICATED 10/19/2017 AUDREY AYOUB APRN Ot K76.0 FATTY (CHANGE OF) LIVER, NOT ELSEWHERE C 10/19/2017 AURDEY AYOUB PIZZA DELIVERY Ot R16.2 HEPATOMEGALY WITH SPLENOMEGALY, NOT ELSE 10/19/2017 AUDREY AYOUB PIZZA DELIVERY Ot Z86.11 PERSONAL HISTORY OF TUBERCULOSIS 10/19/2017 [...] OBSTRUCTIVE PULMONARY DISEASE, U 10/19/2017 AUDREY AYOUB PIZZA DELIVERY Ot E07.9 DISORDER OF THYROID, UNSPECIFIED 10/19/2017 AUDREY AYOUB PIZZA DELIVERY Ot F41.9 ANXIETY DISORDER, UNSPECIFIED 10/19/2017 AUDREY AYOUB PIZZA DELIVERY Ot G47.30 SLEEP APNEA, UNSPECIFIED 10/19/2017 AUDREY AYOUB PIZZA DELIVERY Ot J44.9 CHRONIC OBSTRUCTIVE PULMONARY DISEASE, U 10/19/2017 AUDREY AYOUB PIZZA DELIVERY Ot J45.909 UNSPECIFIED ASTHMA, UNCOMPLICATED 10/19/2017 AUDREY AYOUB PIZZA DELIVERY Ot J98.4 OTHER DISORDERS OF LUNG 10/19/2017 MEGA AUDREY Rosy PIZZA DELIVERY Ot R09.02 HYPOXEMIA 10/19/2017 MEGA AUDREY Rosy PIZZA DELIVERY Ot R94.2 ABNORMAL RESULTS OF PULMONARY FUNCTION S 10/20/2017 MEGA AUDREY Rosy PIZZA DELIVERY Ot I26.99 OTHER PULMONARY EMBOLISM WITHOUT ACUTE C 10/20/2017 AUDREY AYOUB PIZZA DELIVERY Ot J44.9 CHRONIC OBSTRUCTIVE PULMONARY DISEASE, U 10/20/2017 IESHA AYOUBINE Rosy PIZZA DELIVERY Ot J98.4 OTHER DISORDERS OF LUNG 10/20/2017 MEGA AUDREY E PIZZA DELIVERY Ot R09.02 HYPOXEMIA 10/25/2017 IESHA AYOUBINE E PIZZA DELIVERY Ot E07.9 DISORDER OF THYROID, UNSPECIFIED 10/25/2017 IESHA AYOUBINE Rosy PIZZA DELIVERY Ot F41.9 ANXIETY DISORDER, UNSPECIFIED 10/25/2017 IESHA AYOUBINE Rosy PIZZA DELIVERY Ot G47.30 SLEEP APNEA, UNSPECIFIED 10/25/2017 AUDREY AYOUB PIZZA DELIVERY Ot J44.9 CHRONIC OBSTRUCTIVE PULMONARY DISEASE, U 10/25/2017 IESHA AYOUBINE Rosy PIZZA DELIVERY Ot J45.909 UNSPECIFIED ASTHMA, UNCOMPLICATED 10/25/2017 IESHA AYOUBINE Rosy PIZZA DELIVERY Ot J98.4 OTHER DISORDERS OF LUNG 10/25/2017 IESHA AYOUBINE Rosy PIZZA DELIVERY Ot R09.02 HYPOXEMIA 10/25/2017 IESHA AYOUBINE Rosy PIZZA DELIVERY Ot R94.2 ABNORMAL RESULTS OF PULMONARY FUNCTION S 11/02/2017 AUDREY AYOUB PIZZA DELIVERY Ot I26.99 OTHER PULMONARY EMBOLISM WITHOUT ACUTE C 11/02/2017 AUDREY AYOUB PIZZA DELIVERY Ot J44.9 CHRONIC OBSTRUCTIVE PULMONARY DISEASE, U 11/02/2017 IESHA AYUOBINE Rosy PIZZA DELIVERY Ot J98.4 OTHER DISORDERS OF LUNG 11/02/2017 IESHA AYOUBINE Rosy PIZZA DELIVERY Ot R09.02 HYPOXEMIA 11/23/2017 IESHA AYOUBINE E PIZZA DELIVERY Ot I26.99 OTHER PULMONARY EMBOLISM WITHOUT ACUTE C 11/23/2017 IESHA AYOUBINE Rosy PIZZA DELIVERY Ot J44.9 CHRONIC OBSTRUCTIVE PULMONARY DISEASE, U 11/23/2017 IESHA AOYUBINE Rosy PIZZA DELIVERY Ot J98.4 OTHER DISORDERS OF LUNG 11/23/2017 IESHA AYOUBINE Rosy PIZZA DELIVERY Ot R09.02 HYPOXEMIA 11/23/2017 AUDREY AYOUB PIZZA DELIVERY Ot E07.9 DISORDER OF THYROID, UNSPECIFIED 11/23/2017 IESHA AYOUBINE Rosy PIZZA DELIVERY Ot F41.9 ANXIETY DISORDER, UNSPECIFIED 11/23/2017 IESHA AYOUBINE Rosy PIZZA DELIVERY Ot G47.30 SLEEP APNEA, UNSPECIFIED 11/23/2017 AUDREY AYOUB PIZZA DELIVERY Ot J44.9 CHRONIC OBSTRUCTIVE PULMONARY DISEASE, U 11/23/2017 IESHA AYOUBINE Rosy PIZZA DELIVERY Ot J45.909 UNSPECIFIED ASTHMA, UNCOMPLICATED 11/23/2017 IESHA AYOUBINE E PIZZA DELIVERY Ot J98.4 OTHER DISORDERS OF LUNG 11/23/2017 MEGAIESHA MAGANAINE Rosy PIZZA DELIVERY Ot R09.02 HYPOXEMIA 11/23/2017 IESHA AYOUBINE Rosy PIZZA DELIVERY Ot R94.2 ABNORMAL RESULTS OF PULMONARY FUNCTION S 11/23/2017 AUDREY AYOUB PIZZA DELIVERY Ot I26.99 OTHER PULMONARY EMBOLISM WITHOUT ACUTE C 11/23/2017 AUDREY AYOUB PIZZA DELIVERY Ot J44.9 CHRONIC OBSTRUCTIVE PULMONARY DISEASE, U 11/23/2017 AUDREY AYOUB PIZZA DELIVERY Ot J98.4 OTHER DISORDERS OF LUNG 11/23/2017 AUDREY AYOUB PIZZA DELIVERY Ot R09.02 HYPOXEMIA 12/03/2017 AUDREY AYOUB PIZZA DELIVERY Ot E07.9 DISORDER OF THYROID, UNSPECIFIED 12/03/2017 AUDREY AYOUB PIZZA DELIVERY Ot F41.9 ANXIETY DISORDER, UNSPECIFIED 12/03/2017 IESHA AYOUBINE Rosy PIZZA DELIVERY Ot G47.30 SLEEP APNEA, UNSPECIFIED 12/03/2017 AUDREY AYOUB PIZZA DELIVERY Ot J44.9 CHRONIC OBSTRUCTIVE PULMONARY DISEASE, U 12/03/2017 IESHA AYOUBINE Rosy PIZZA DELIVERY Ot J45.909 UNSPECIFIED ASTHMA, UNCOMPLICATED 12/03/2017 IESHA AYOUBINE Rosy PIZZA DELIVERY Ot J98.4 OTHER DISORDERS OF LUNG 12/03/2017 IESHA AYOUBINE Rosy PIZZA DELIVERY Ot R09.02 HYPOXEMIA 12/03/2017 IESHA AYOUBINE E PIZZA DELIVERY Ot R94.2 ABNORMAL RESULTS OF PULMONARY FUNCTION S 12/05/2017 IESHA AYOUBINE Rosy PIZZA DELIVERY Ot E07.9 DISORDER OF THYROID, UNSPECIFIED 12/05/2017 IESHA AYOUBINE Rosy PIZZA DELIVERY Ot F41.9 ANXIETY DISORDER, UNSPECIFIED 12/05/2017 AUDREY AYOUB PIZZA DELIVERY Ot G47.30 SLEEP APNEA, UNSPECIFIED 12/05/2017 AUDREY AYOUB PIZZA DELIVERY Ot J44.9 CHRONIC OBSTRUCTIVE PULMONARY DISEASE, U 12/05/2017 AUDREY AYOUB PIZZA DELIVERY Ot J45.909 UNSPECIFIED ASTHMA, UNCOMPLICATED 12/05/2017 AUDREY AYOUB PIZZA DELIVERY Ot J98.4 OTHER DISORDERS OF LUNG 12/05/2017 AUDREY AYOUB PIZZA DELIVERY Ot R09.02 HYPOXEMIA 12/05/2017 AUDREY AYOUB PIZZA DELIVERY Ot R94.2 ABNORMAL RESULTS OF PULMONARY FUNCTION S 12/06/2017 AUDREY AYOUB PIZZA DELIVERY Ot E07.9 DISORDER OF THYROID, UNSPECIFIED 12/06/2017 AUDREY AYOUB PIZZA DELIVERY Ot F41.9 ANXIETY DISORDER, UNSPECIFIED 12/06/2017 AUDREY AYOUB PIZZA DELIVERY Ot G47.30 SLEEP APNEA, UNSPECIFIED 12/06/2017 AUDREY AYOUB PIZZA DELIVERY Ot J44.9 CHRONIC OBSTRUCTIVE PULMONARY DISEASE, U 12/06/2017 AUDREY AYOUB PIZZA DELIVERY Ot J45.909 UNSPECIFIED ASTHMA, UNCOMPLICATED 12/06/2017 AUDREY AYOUB PIZZA DELIVERY Ot J98.4 OTHER DISORDERS OF LUNG 12/06/2017 AUDREY AYOUB PIZZA DELIVERY Ot R09.02 HYPOXEMIA 12/06/2017 AUDREY AYOUB PIZZA DELIVERY Ot R94.2 ABNORMAL RESULTS OF PULMONARY FUNCTION S 12/06/2017 AUDREY AYOUB PIZZA DELIVERY Ot E04.1 NONTOXIC SINGLE THYROID NODULE 12/06/2017 AUDREY AYOUB PIZZA DELIVERY Ot F41.9 ANXIETY DISORDER, UNSPECIFIED 12/06/2017 AUDREY AYOUB PIZZA DELIVERY Ot I26.99 OTHER PULMONARY EMBOLISM WITHOUT ACUTE C 12/06/2017 AUDREY AYOUB PIZZA DELIVERY Ot J44.9 CHRONIC OBSTRUCTIVE PULMONARY DISEASE, U 12/06/2017 IESHA AYOUBINE Rosy PIZZA DELIVERY Ot J98.4 OTHER DISORDERS OF LUNG 12/08/2017 AUDREY AYOUB PIZZA DELIVERY Ot E07.9 DISORDER OF THYROID, UNSPECIFIED 12/08/2017 AUDREY AYOUB PIZZA DELIVERY Ot F41.9 ANXIETY DISORDER, UNSPECIFIED 12/08/2017 AUDREY AYOUB PIZZA DELIVERY Ot G47.30 SLEEP APNEA, UNSPECIFIED 12/08/2017 AUDREY AYOUB PIZZA DELIVERY Ot J44.9 CHRONIC OBSTRUCTIVE PULMONARY DISEASE, U 12/08/2017 IESHA AYOUBINE Rosy PIZZA DELIVERY Ot J45.909 UNSPECIFIED ASTHMA, UNCOMPLICATED 12/08/2017 MEGAIESHA MAGANAINE E PIZZA DELIVERY Ot J98.4 OTHER DISORDERS OF LUNG 12/08/2017 IESHA AYOUBINE E PIZZA DELIVERY Ot R09.02 HYPOXEMIA 12/08/2017 IESHA AYOUBINE Rosy PIZZA DELIVERY Ot R94.2 ABNORMAL RESULTS OF PULMONARY FUNCTION S 12/09/2017 IESHA AYOUBINE Rosy PIZZA DELIVERY Ot E07.9 DISORDER OF THYROID, UNSPECIFIED 12/09/2017 IESHA AYOUBINE Rosy PIZZA DELIVERY Ot F41.9 ANXIETY DISORDER, UNSPECIFIED 12/09/2017 AUDREY AYOUB PIZZA DELIVERY Ot G47.30 SLEEP APNEA, UNSPECIFIED 12/09/2017 AUDREY AYOUB PIZZA DELIVERY Ot J44.9 CHRONIC OBSTRUCTIVE PULMONARY DISEASE, U 12/09/2017 AUDREY AYOUB PIZZA DELIVERY Ot J45.909 UNSPECIFIED ASTHMA, UNCOMPLICATED 12/09/2017 IESHA AYOUBINE Rosy PIZZA DELIVERY Ot J98.4 OTHER DISORDERS OF LUNG 12/09/2017 AUDREY AYOUB PIZZA DELIVERY Ot R09.02 HYPOXEMIA 12/09/2017 IESHA AYOUBINE Rosy PIZZA DELIVERY Ot R94.2 ABNORMAL RESULTS OF PULMONARY FUNCTION S 12/11/2017 AUDREY AYOUB PIZZA DELIVERY Ot E04.1 NONTOXIC SINGLE THYROID NODULE 12/11/2017 AUDREY AYOUB PIZZA DELIVERY Ot F41.9 ANXIETY DISORDER, UNSPECIFIED 12/11/2017 AUDREY AYOUB PIZZA DELIVERY Ot I26.99 OTHER PULMONARY EMBOLISM WITHOUT ACUTE C 12/11/2017 IESHA AYOUBINE Rosy PIZZA DELIVERY Ot J44.9 CHRONIC OBSTRUCTIVE PULMONARY DISEASE, U 12/11/2017 IESHA AYOUBINE Rosy PIZZA DELIVERY Ot J98.4 OTHER DISORDERS OF LUNG 12/11/2017 AUDREY AYOUB PIZZA DELIVERY Ot I26.99 OTHER PULMONARY EMBOLISM WITHOUT ACUTE C 12/11/2017 AUDREY AYOUB PIZZA DELIVERY Ot J44.9 CHRONIC OBSTRUCTIVE PULMONARY DISEASE, U 12/11/2017 AUDREY AYOUB PIZZA DELIVERY Ot J98.4 OTHER DISORDERS OF LUNG 12/11/2017 AUDREY AYOUB PIZZA DELIVERY Ot R09.02 HYPOXEMIA 12/11/2017 AUDREY AYOUB PIZZA DELIVERY Ot G47.30 SLEEP APNEA, UNSPECIFIED 12/11/2017 AUDREY AYOUB PIZZA DELIVERY Ot J42 UNSPECIFIED CHRONIC BRONCHITIS 12/11/2017 AUDREY AYOUB PIZZA DELIVERY Ot J44.9 CHRONIC OBSTRUCTIVE PULMONARY DISEASE, U 12/11/2017 AUDREY AYOUB PIZZA DELIVERY Ot J45.909 UNSPECIFIED ASTHMA, UNCOMPLICATED 12/11/2017 AUDREY AYOUB PIZZA DELIVERY Ot K76.0 FATTY (CHANGE OF) LIVER, NOT ELSEWHERE C 12/11/2017 AUDREY AYOUB PIZZA DELIVERY Ot R16.2 HEPATOMEGALY WITH SPLENOMEGALY, NOT ELSE [...] MASS AND LUMP, LOWER 12/11/2017 AUDREY AYOUB APRN Ot J44.9 CHRONIC OBSTRUCTIVE PULMONARY DISEASE, U 12/11/2017 AUDREY AYOUB PIZZA DELIVERY Ot E04.1 NONTOXIC SINGLE THYROID NODULE 12/11/2017 AUDREY AYOUB PIZZA DELIVERY Ot F41.9 ANXIETY DISORDER, UNSPECIFIED 12/11/2017 AUDREY AYOUB PIZZA DELIVERY Ot I26.99 OTHER PULMONARY EMBOLISM WITHOUT ACUTE C 12/11/2017 AUDREY AYOUB PIZZA DELIVERY Ot J44.9 CHRONIC OBSTRUCTIVE PULMONARY DISEASE, U 12/11/2017 AUDREY AYOUB PIZZA DELIVERY Ot J98.4 OTHER DISORDERS OF LUNG 12/11/2017 AUDREY AYOUB PIZZA DELIVERY Ot I26.99 OTHER PULMONARY EMBOLISM WITHOUT ACUTE C 12/11/2017 AUDREY AYUOB PIZZA DELIVERY Ot J44.9 CHRONIC OBSTRUCTIVE PULMONARY DISEASE, U 12/11/2017 AUDREY AYOUB PIZZA DELIVERY Ot J98.4 OTHER DISORDERS OF LUNG 12/11/2017 AUDREY AYOUB PIZZA DELIVERY Ot R09.02 HYPOXEMIA 12/11/2017 AUDREY AYOUB PIZZA DELIVERY Ot E07.9 DISORDER OF THYROID, UNSPECIFIED 12/11/2017 AUDREY AYOUB PIZZA DELIVERY Ot F41.9 ANXIETY DISORDER, UNSPECIFIED 12/11/2017 AUDREY AYOUB PIZZA DELIVERY Ot G47.30 SLEEP APNEA, UNSPECIFIED 12/11/2017 AUDREY AYOUB PIZZA DELIVERY Ot J44.9 CHRONIC OBSTRUCTIVE PULMONARY DISEASE, U 12/11/2017 AUDREY AYOUB PIZZA DELIVERY Ot J45.909 UNSPECIFIED ASTHMA, UNCOMPLICATED 12/11/2017 AUDREY AYOUB PIZZA DELIVERY Ot J98.4 OTHER DISORDERS OF LUNG 12/11/2017 AUDREY AYOUB PIZZA DELIVERY Ot R09.02 HYPOXEMIA 12/11/2017 AUDREY AYOUB PIZZA DELIVERY Ot R94.2 ABNORMAL RESULTS OF PULMONARY FUNCTION S 12/13/2017 AUDREY AYOUB PIZZA DELIVERY Ot J42 UNSPECIFIED CHRONIC BRONCHITIS 12/13/2017 AUDREY AYOUB PIZZA DELIVERY Ot J45.909 UNSPECIFIED ASTHMA, UNCOMPLICATED 12/13/2017 AUDREY AYOUB PIZZA DELIVERY Ot J98.4 OTHER DISORDERS OF LUNG 12/13/2017 AUDREY AYOUB PIZZA DELIVERY Ot R09.02 HYPOXEMIA 12/13/2017 AUDREY AYOUB PIZZA DELIVERY Ot R94.2 ABNORMAL RESULTS OF PULMONARY FUNCTION S 12/19/2017 AUDREY AYOUB PIZZA DELIVERY Ot J42 UNSPECIFIED CHRONIC BRONCHITIS 12/19/2017 AUDREY AYOUB PIZZA DELIVERY Ot J45.909 UNSPECIFIED ASTHMA, UNCOMPLICATED 12/19/2017 AUDREY AYOUB PIZZA DELIVERY Ot J98.4 OTHER DISORDERS OF LUNG 12/20/2017 AUDREY AYOUB PIZZA DELIVERY Ot E04.1 NONTOXIC SINGLE THYROID NODULE 12/20/2017 AUDREY AYOUB PIZZA DELIVERY Ot F41.9 ANXIETY DISORDER, UNSPECIFIED 12/20/2017 AUDREY AYOUB PIZZA DELIVERY Ot I26.99 OTHER PULMONARY EMBOLISM WITHOUT ACUTE C 12/20/2017 AUDREY AYOUB PIZZA DELIVERY Ot J44.9 CHRONIC OBSTRUCTIVE PULMONARY DISEASE, U 12/20/2017 AUDREY AYOUB PIZZA DELIVERY Ot J98.4 OTHER DISORDERS OF LUNG 12/27/2017 AUDREY AYOUB PIZZA DELIVERY Ot J42 UNSPECIFIED CHRONIC BRONCHITIS 12/27/2017 IESHA AYOUBINE E PIZZA DELIVERY Ot J45.909 UNSPECIFIED ASTHMA, UNCOMPLICATED 12/27/2017 IESHA AYOUBINE E PIZZA DELIVERY Ot J98.4 OTHER DISORDERS OF LUNG 12/27/2017 IESHA AYOUBINE E PIZZA DELIVERY Ot R09.02 HYPOXEMIA 12/27/2017 IESHA AYOUBINE E PIZZA DELIVERY Ot R94.2 ABNORMAL RESULTS OF PULMONARY FUNCTION S 01/03/2018 AUDREY AYOUB PIZZA DELIVERY Ot J42 UNSPECIFIED CHRONIC BRONCHITIS 01/03/2018 IESHA AYOUBINE Rosy PIZZA DELIVERY Ot J45.909 UNSPECIFIED ASTHMA, UNCOMPLICATED 01/03/2018 IESHA AYOUBINE Rosy PIZZA DELIVERY Ot J98.4 OTHER DISORDERS OF LUNG 03/07/2018 IESHA AYOUBINE Rosy PIZZA DELIVERY Ot E07.9 DISORDER OF THYROID, UNSPECIFIED 03/07/2018 IESHA AYOUBINE Rosy PIZZA DELIVERY Ot F41.9 ANXIETY DISORDER, UNSPECIFIED 03/07/2018 AUDREY AYOUB PIZZA DELIVERY Ot G47.30 SLEEP APNEA, UNSPECIFIED 03/07/2018 IESHA AYOUBINE E PIZZA DELIVERY Ot J44.9 CHRONIC OBSTRUCTIVE PULMONARY DISEASE, U 03/07/2018 IESHA AYOUBINE Rosy PIZZA DELIVERY Ot J45.909 UNSPECIFIED ASTHMA, UNCOMPLICATED 03/07/2018 IESHA AYOUBINE Rosy PIZZA DELIVERY Ot J98.4 OTHER DISORDERS OF LUNG 03/07/2018 AUDREY AYOUB PIZZA DELIVERY Ot R09.02 HYPOXEMIA 03/07/2018 AUDREY AYOUB PIZZA DELIVERY Ot R94.2 ABNORMAL RESULTS OF PULMONARY FUNCTION S 03/08/2018 AUDREY AYOUB PIZZA DELIVERY Ot E07.9 DISORDER OF THYROID, UNSPECIFIED 03/08/2018 IESHA AYOUBINE Rosy PIZZA DELIVERY Ot F41.9 ANXIETY DISORDER, UNSPECIFIED 03/08/2018 IESHA AYOUBINE Rosy PIZZA DELIVERY Ot G47.30 SLEEP APNEA, UNSPECIFIED 03/08/2018 IESHA AYOUBINE Rosy PIZZA DELIVERY Ot J44.9 CHRONIC OBSTRUCTIVE PULMONARY DISEASE, U 03/08/2018 IESHA AYOUBINE Rosy PIZZA DELIVERY Ot J45.909 UNSPECIFIED ASTHMA, UNCOMPLICATED 03/08/2018 IESHA AYOUBINE Rosy PIZZA DELIVERY Ot J98.4 OTHER DISORDERS OF LUNG 03/08/2018 IESHA AYOUBINE E PIZZA DELIVERY Ot R09.02 HYPOXEMIA 03/08/2018 MEGA, AUDREY E PIZZA DELIVERY Ot R94.2 ABNORMAL RESULTS OF PULMONARY FUNCTION S 04/03/2018 Carolina Barry W M79.7 Fibromyalgia 04/10/2018 Carolina Barry W M79.7 Fibromyalgia 04/10/2018 P M542 Cervicalgia 04/10/2018 S R51 Headache 07/17/2018 IESHA AYOUBINE E PIZZA DELIVERY Ot E07.9 DISORDER OF THYROID, UNSPECIFIED 07/17/2018 MEGAIESHA MAGANAINE E PIZZA DELIVERY Ot F41.9 ANXIETY DISORDER, UNSPECIFIED 07/17/2018 MEGA, AUDREY E PIZZA DELIVERY Ot G47.30 SLEEP APNEA, UNSPECIFIED 07/17/2018 MEGAIESHA MAGANAINE E PIZZA DELIVERY Ot J44.9 CHRONIC OBSTRUCTIVE PULMONARY DISEASE, U 07/17/2018 IESHA AYOUBINE E PIZZA DELIVERY Ot J45.909 UNSPECIFIED ASTHMA, UNCOMPLICATED 07/17/2018 MEGAIESHA MAGANAINE Rosy PIZZA DELIVERY Ot J98.4 OTHER DISORDERS OF LUNG 07/17/2018 MEGAIESHA MAGANAINE Rosy PIZZA DELIVERY Ot R09.02 HYPOXEMIA 07/17/2018 MEGAIESHA MAGANAINE Rosy PIZZA DELIVERY Ot R94.2 ABNORMAL RESULTS OF PULMONARY FUNCTION S 07/17/2018 AUDREY AYOUB PIZZA DELIVERY Ot E07.9 DISORDER OF THYROID, UNSPECIFIED 07/17/2018 IESHA AYOUBINE E PIZZA DELIVERY Ot F41.9 ANXIETY DISORDER, UNSPECIFIED 07/17/2018 IESHA AYOUBINE E PIZZA DELIVERY Ot G47.30 SLEEP APNEA, UNSPECIFIED 07/17/2018 IESHA AYOUBINE E PIZZA DELIVERY Ot J44.9 CHRONIC OBSTRUCTIVE PULMONARY DISEASE, U 07/17/2018 IESHA AYOUBINE E PIZZA DELIVERY Ot J45.909 UNSPECIFIED ASTHMA, UNCOMPLICATED 07/17/2018 MEGA, AUDREY E PIZZA DELIVERY Ot J98.4 OTHER DISORDERS OF LUNG 07/17/2018 MEGAIESHA MAGANAINE E PIZZA DELIVERY Ot R09.02 HYPOXEMIA 07/17/2018 MEGA, AUDREY E PIZZA DELIVERY Ot R94.2 ABNORMAL RESULTS OF PULMONARY FUNCTION S 07/17/2018 BRYAN GRULLON, MATILDE Ot Z01.818 ENCOUNTER FOR OTHER PREPROCEDURAL EXAMIN 07/18/2018 IESHA AYOUBINE E PIZZA DELIVERY Ot G47.30 SLEEP APNEA, UNSPECIFIED 07/18/2018 AUDREY AYOUB APRN Ot J42 UNSPECIFIED CHRONIC BRONCHITIS 07/18/2018 AUDREY AYOUB APRN Ot J44.9 CHRONIC OBSTRUCTIVE PULMONARY DISEASE, U 07/18/2018 AUDREY AYOUB APRN Ot J45.909 UNSPECIFIED ASTHMA, UNCOMPLICATED 07/18/2018 AUDREY AYOUB PIZZA DELIVERY Ot K76.0 FATTY (CHANGE OF) LIVER, NOT ELSEWHERE C 07/18/2018 AUDREY AYOUB APRN Ot R16.2 HEPATOMEGALY WITH SPLENOMEGALY, NOT ELSE 07/18/2018 AUDREY AYOUB APRN Ot Z86.11 PERSONAL HISTORY OF TUBERCULOSIS 07/18/2018 WEN POLO DO Ot E04.1 NONTOXIC SINGLE THYROID NODULE 07/18/2018 WEN POOL DO Ot I26.99 OTHER PULMONARY EMBOLISM WITHOUT ACUTE C 07/18/2018 WEN POOL DO Ot K43.9 VENTRAL HERNIA WITHOUT OBSTRUCTION OR GA 07/18/2018 WEN POOL DO Ot K76.0 FATTY (CHANGE OF) LIVER, NOT ELSEWHERE C 07/18/2018 WEN POOL DO Ot R22.43 LOCALIZED SWELLING, MASS AND LUMP, LOWER 07/18/2018 AUDREY AYOUB APRN Ot J44.9 CHRONIC OBSTRUCTIVE PULMONARY DISEASE, U 07/18/2018 AUDREY AYOUB APRN Ot E04.1 NONTOXIC SINGLE THYROID NODULE 07/18/2018 AUDREY AYOUB APRN Ot F41.9 ANXIETY DISORDER, UNSPECIFIED 07/18/2018 AUDREY AYOUB APRN Ot I26.99 OTHER PULMONARY EMBOLISM WITHOUT ACUTE C 07/18/2018 AUDREY AYOUB PIZZA DELIVERY Ot J44.9 CHRONIC OBSTRUCTIVE PULMONARY DISEASE, U 07/18/2018 AUDREY AYOUB PIZZA DELIVERY Ot J98.4 OTHER DISORDERS OF LUNG 07/18/2018 AUDREY AYOUB PIZZA DELIVERY Ot I26.99 OTHER PULMONARY EMBOLISM WITHOUT ACUTE C 07/18/2018 AUDREY AYOUB PIZZA DELIVERY Ot J44.9 CHRONIC OBSTRUCTIVE PULMONARY DISEASE, U 07/18/2018 AUDREY AYOUB PIZZA DELIVERY Ot J98.4 OTHER DISORDERS OF LUNG 07/18/2018 AUDREY AYOUB PIZZA DELIVERY Ot R09.02 HYPOXEMIA 07/18/2018 AUDREY AYOUB PIZZA DELIVERY Ot J42 UNSPECIFIED CHRONIC BRONCHITIS 07/18/2018 MEGA AUDREY Rosy PIZZA DELIVERY Ot J45.909 UNSPECIFIED ASTHMA, UNCOMPLICATED 07/18/2018 MEGA AUDREY Rosy PIZZA DELIVERY Ot J98.4 OTHER DISORDERS OF LUNG 07/18/2018 MEGA AUDREY Rosy PIZZA DELIVERY Ot J42 UNSPECIFIED CHRONIC BRONCHITIS 07/18/2018 MEGAIESHA MAGANAINE Rosy PIZZA DELIVERY Ot J45.909 UNSPECIFIED ASTHMA, UNCOMPLICATED 07/18/2018 MEGAIESHA MAGANAINE Rosy PIZZA DELIVERY Ot J98.4 OTHER DISORDERS OF LUNG 07/18/2018 MEGAIESHA MAGANAINE Rosy PIZZA DELIVERY Ot R09.02 HYPOXEMIA 07/18/2018 MEGA AUDREY Rosy PIZZA DELIVERY Ot R94.2 ABNORMAL RESULTS OF PULMONARY FUNCTION S 07/18/2018 AUDREY AYOUB PIZZA DELIVERY Ot E07.9 DISORDER OF THYROID, UNSPECIFIED 07/18/2018 MEGAIESHA MAGANAINE Rosy PIZZA DELIVERY Ot F41.9 ANXIETY DISORDER, UNSPECIFIED 07/18/2018 AUDREY AYOUB PIZZA DELIVERY Ot G47.30 SLEEP APNEA, UNSPECIFIED 07/18/2018 IESHA AYOUBINE Rosy PIZZA DELIVERY Ot J44.9 CHRONIC OBSTRUCTIVE PULMONARY DISEASE, U 07/18/2018 AUDREY AYOUB PIZZA DELIVERY Ot J45.909 UNSPECIFIED ASTHMA, UNCOMPLICATED 07/18/2018 AUDREY AYOUB PIZZA DELIVERY Ot J98.4 OTHER DISORDERS OF LUNG 07/18/2018 AUDREY AYOUB PIZZA DELIVERY Ot R09.02 HYPOXEMIA 07/18/2018 AUDREY AYOUB PIZZA DELIVERY Ot R94.2 ABNORMAL RESULTS OF PULMONARY FUNCTION S 07/18/2018 MATILDE ADAMS MD Ot G47.33 OBSTRUCTIVE SLEEP APNEA (ADULT) (PEDIATR 07/18/2018 MATILDE ADAMS MD Ot J44.9 CHRONIC OBSTRUCTIVE PULMONARY DISEASE, U 07/18/2018 MATILDE ADAMS MD Ot K21.0 GASTRO-ESOPHAGEAL REFLUX DISEASE WITH ES 07/18/2018 MATILDE ADAMS MD Ot K29.70 GASTRITIS, UNSPECIFIED, WITHOUT BLEEDING 07/18/2018 MATILDE ADAMS MD Ot K44.9 DIAPHRAGMATIC HERNIA WITHOUT OBSTRUCTION 07/18/2018 MATILDE ADAMS MD Ot Z79.899 OTHER CORRECTION (CURRENT) DRUG THERAPY 07/23/2018 MATILDE ADAMS MD Ot G47.33 OBSTRUCTIVE SLEEP APNEA (ADULT) (PEDIATR 07/23/2018 MATILDE ADAMS MD, Ot J44.9 CHRONIC OBSTRUCTIVE PULMONARY DISEASE, U 07/23/2018 MATILDE ADAMS MD, Ot K21.0 GASTRO-ESOPHAGEAL REFLUX DISEASE WITH ES 07/23/2018 MATILDE ADAMS MD Ot K29.70 GASTRITIS, UNSPECIFIED, WITHOUT BLEEDING 07/23/2018 MATILDE ADAMS MD, Ot K44.9 DIAPHRAGMATIC HERNIA WITHOUT OBSTRUCTION 07/23/2018 MATILDE ADAMS MD, Ot Z79.899 OTHER TILE CONDUIT LAYER (CURRENT) DRUG THERAPY 08/02/2018 AUDREY AYOUB APRN Ot G47.00 INSOMNIA, UNSPECIFIED 08/02/2018 AUDREY AYOUB APRN Ot G47.30 SLEEP APNEA, UNSPECIFIED 08/02/2018 AUDREY AYOUB APRN Ot J44.9 CHRONIC OBSTRUCTIVE PULMONARY DISEASE, U 08/02/2018 AUDREY AYOUB APRN, Ot Z01.818 ENCOUNTER FOR OTHER PREPROCEDURAL EXAMIN [...] PERSONAL HISTORY OF TUBERCULOSIS 08/27/2018 WEN POOL DO Ot E04.1 NONTOXIC SINGLE THYROID NODULE 08/27/2018 WEN POOL DO Ot I26.99 OTHER PULMONARY EMBOLISM WITHOUT ACUTE C 08/27/2018 WEN POOL DO Ot K43.9 VENTRAL HERNIA WITHOUT OBSTRUCTION OR GA 08/27/2018 WEN POOL DO Ot K76.0 FATTY (CHANGE OF) LIVER, NOT ELSEWHERE C 08/27/2018 WEN POOL DO Ot R22.43 LOCALIZED SWELLING, MASS AND LUMP, LOWER 08/27/2018 AUDREY AYOUB PIZZA DELIVERY Ot J44.9 CHRONIC OBSTRUCTIVE PULMONARY DISEASE, U 08/27/2018 AUDREY AYOUB PIZZA DELIVERY Ot E04.1 NONTOXIC SINGLE THYROID NODULE 08/27/2018 AUDREY AYOUB PIZZA DELIVERY Ot F41.9 ANXIETY DISORDER, UNSPECIFIED 08/27/2018 AUDREY AYOUB PIZZA DELIVERY Ot I26.99 OTHER PULMONARY EMBOLISM WITHOUT ACUTE C 08/27/2018 AUDREY AYOUB PIZZA DELIVERY Ot J44.9 CHRONIC OBSTRUCTIVE PULMONARY DISEASE, U 08/27/2018 AUDREY AYOUB PIZZA DELIVERY Ot J98.4 OTHER DISORDERS OF LUNG 08/27/2018 AUDREY AYOUB PIZZA DELIVERY Ot I26.99 OTHER PULMONARY EMBOLISM WITHOUT ACUTE C 08/27/2018 AUDREY AYOUB PIZZA DELIVERY Ot J44.9 CHRONIC OBSTRUCTIVE PULMONARY DISEASE, U 08/27/2018 AUDREY AYOUB PIZZA DELIVERY Ot J98.4 OTHER DISORDERS OF LUNG 08/27/2018 AUDREY AYOUB PIZZA DELIVERY Ot R09.02 HYPOXEMIA 08/27/2018 AUDREY AYOUB PIZZA DELIVERY Ot J42 UNSPECIFIED CHRONIC BRONCHITIS 08/27/2018 AUDREY AYOUB PIZZA DELIVERY Ot J45.909 UNSPECIFIED ASTHMA, UNCOMPLICATED 08/27/2018 AUDREY AYOUB PIZZA DELIVERY Ot J98.4 OTHER DISORDERS OF LUNG 08/27/2018 AUDREY AYOUB PIZZA DELIVERY Ot J42 UNSPECIFIED CHRONIC BRONCHITIS 08/27/2018 AUDREY AYOUB PIZZA DELIVERY Ot J45.909 UNSPECIFIED ASTHMA, UNCOMPLICATED 08/27/2018 AUDREY AYOUB PIZZA DELIVERY Ot J98.4 OTHER DISORDERS OF LUNG 08/27/2018 AUDREY AYOUB PIZZA DELIVERY Ot R09.02 HYPOXEMIA 08/27/2018 MEGA, AUDREY E PIZZA DELIVERY Ot R94.2 ABNORMAL RESULTS OF PULMONARY FUNCTION S 08/27/2018 AUDREY AYOUB PIZZA DELIVERY Ot E07.9 DISORDER OF THYROID, UNSPECIFIED 08/27/2018 IESHA AYOUBINE Rosy PIZZA DELIVERY Ot F41.9 ANXIETY DISORDER, UNSPECIFIED 08/27/2018 IESHA AYOUBINE E PIZZA DELIVERY Ot G47.30 SLEEP APNEA, UNSPECIFIED 08/27/2018 AUDREY AYOUB PIZZA DELIVERY Ot J44.9 CHRONIC OBSTRUCTIVE PULMONARY DISEASE, U 08/27/2018 IESHA AYOUBINE Rosy PIZZA DELIVERY Ot J45.909 UNSPECIFIED ASTHMA, UNCOMPLICATED 08/27/2018 IESHA AYOUBINE Rosy PIZZA DELIVERY Ot J98.4 OTHER DISORDERS OF LUNG 08/27/2018 AUDREY AYOUB PIZZA DELIVERY Ot R09.02 HYPOXEMIA 08/27/2018 AUDREY AYOUB PIZZA DELIVERY Ot R94.2 ABNORMAL RESULTS OF PULMONARY FUNCTION S 08/27/2018 BRYAN GRULLON, MATILDE Ot K21.9 GASTRO-ESOPHAGEAL REFLUX DISEASE WITHOUT 08/27/2018 BRYAN GRULLON, MATILED Ot Z01.818 ENCOUNTER FOR OTHER PREPROCEDURAL EXAMIN 08/27/2018 AUDREY AYOUB PIZZA DELIVERY Ot G47.00 INSOMNIA, UNSPECIFIED 08/27/2018 AUDREY AYOUB PIZZA DELIVERY Ot G47.30 SLEEP APNEA, UNSPECIFIED 08/27/2018 AUDREY AYOUB PIZZA DELIVERY Ot J44.9 CHRONIC OBSTRUCTIVE PULMONARY DISEASE, U 08/27/2018 AUDREY AYOUB PIZZA DELIVERY Ot Z01.818 ENCOUNTER FOR OTHER PREPROCEDURAL EXAMIN 08/27/2018 AUDREY AYOUB PIZZA DELIVERY Ot E07.9 DISORDER OF THYROID, UNSPECIFIED 08/27/2018 IESHA AYOUBINE Rosy PIZZA DELIVERY Ot F41.9 ANXIETY DISORDER, UNSPECIFIED 08/27/2018 IESHA AYOUBINE [facility] DELIVERY Ot G47.30 SLEEP APNEA, UNSPECIFIED 08/27/2018 IESHA AYOUBINE [facility] DELIV[facility] Ot J44.9 CHRONIC OBSTRUCTIVE PULMONARY DISEASE, U 08/27/2018 IESHA AYOUBINE [facility] [employer] DELIVERY Ot J45.909 UNSPECIFIED ASTHMA, UNCOMPLICATED 08/27/2018 EISHA AYOUBINE E PIZZA DELIVERY Ot J98.4 OTHER DISORDERS OF LUNG 08/27/2018 IESHA AYOUBINE [facility] DELIVERY Ot R09.02 HYPOXEMIA 08/27/2018 AUDREY AYOUB APRN Ot R94.2 ABNORMAL RESULTS OF PULMONARY FUNCTION S 08/27/2018 MATILDE ADAMS MD, Ot E66.01 MORBID (SEVERE) [...] G25.81 RESTLESS LEGS SYNDROME 08/31/2018 MATILDE ADAMS MD, Ot G47.00 INSOMNIA, UNSPECIFIED 08/31/2018 MATILDE ADAMS MD Ot G47.33 OBSTRUCTIVE SLEEP [...] Ot K59.09 OTHER CONSTIPATION 08/31/2018 MATILDE ADAMS MD Ot M16.0 BILATERAL PRIMARY OSTEOARTHRITIS OF HIP [...] EMBOLISM WITHOUT ACUTE C 08/31/2018 WEN POOL DO Ot K43.9 VENTRAL HERNIA WITHOUT OBSTRUCTION OR GA 08/31/2018 WEN POOL DO, Ot K76.0 FATTY (CHANGE OF) LIVER, NOT ELSEWHERE C 08/31/2018 CORINE WEN MEDINA M Ot R22.43 LOCALIZED SWELLING, MASS AND LUMP, LOWER 08/31/2018 AUDREY AYOUB PIZZA DELIVERY Ot J44.9 CHRONIC OBSTRUCTIVE PULMONARY DISEASE, U 08/31/2018 IESHA AYOUBINE [facility] DELIVERY Ot E04.1 NONTOXIC SINGLE THYROID NODULE 08/31/2018 AUDREY AYOUB PIZZA DELIVERY Ot F41.9 ANXIETY DISORDER, UNSPECIFIED 08/31/2018 AUDREY AYOUB PIZZA DELIVERY Ot I26.99 OTHER PULMONARY EMBOLISM WITHOUT ACUTE C 08/31/2018 AUDREY AYOUB PIZZA DELIVERY Ot J44.9 CHRONIC OBSTRUCTIVE PULMONARY DISEASE, U 08/31/2018 AUDREY AYOUB PIZZA DELIVERY Ot J98.4 OTHER DISORDERS OF LUNG 08/31/2018 AUDREY AYOUB PIZZA DELIVERY Ot I26.99 OTHER PULMONARY EMBOLISM WITHOUT ACUTE C 08/31/2018 AUDREY AYOUB PIZZA DELIVERY Ot J44.9 CHRONIC OBSTRUCTIVE PULMONARY DISEASE, U 08/31/2018 AUDREY AYOUB PIZZA DELIVERY Ot J98.4 OTHER DISORDERS OF LUNG 08/31/2018 AUDREY AYOUB PIZZA DELIVERY Ot R09.02 HYPOXEMIA 08/31/2018 AUDREY AYOUB PIZZA DELIVERY Ot J42 UNSPECIFIED CHRONIC BRONCHITIS 08/31/2018 AUDREY AYOUB PIZZA DELIVERY Ot J45.909 UNSPECIFIED ASTHMA, UNCOMPLICATED 08/31/2018 AUDREY AYOUB PIZZA DELIVERY Ot J98.4 OTHER DISORDERS OF LUNG 08/31/2018 AUDREY AYOUB PIZZA DELIVERY Ot J42 UNSPECIFIED CHRONIC BRONCHITIS 08/31/2018 AUDREY AYOUB PIZZA DELIVERY Ot J45.909 UNSPECIFIED ASTHMA, UNCOMPLICATED 08/31/2018 AUDREY AYOUB PIZZA DELIVERY Ot J98.4 OTHER DISORDERS OF LUNG 08/31/2018 AUDREY AYOUB PIZZA DELIVERY Ot R09.02 HYPOXEMIA 08/31/2018 AUDREY AYOUB PIZZA DELIVERY Ot R94.2 ABNORMAL RESULTS OF PULMONARY FUNCTION S 08/31/2018 AUDREY AYOUB PIZZA DELIVERY Ot E07.9 DISORDER OF THYROID, UNSPECIFIED 08/31/2018 AUDREY AYOUB PIZZA DELIVERY Ot F41.9 ANXIETY DISORDER, UNSPECIFIED 08/31/2018 AUDREY AYOUB PIZZA DELIVERY Ot G47.30 SLEEP APNEA, UNSPECIFIED 08/31/2018 AUDREY AYOUB PIZZA DELIVERY Ot J44.9 CHRONIC OBSTRUCTIVE PULMONARY DISEASE, U 08/31/2018 AUDREY AYOUB PIZZA DELIVERY Ot J45.909 UNSPECIFIED ASTHMA, UNCOMPLICATED 08/31/2018 AUDREY AYOUB PIZZA DELIVERY Ot J98.4 OTHER DISORDERS OF LUNG 08/31/2018 AUDREY AYOUB PIZZA DELIVERY Ot R09.02 HYPOXEMIA 08/31/2018 AUDREY AYOUB PIZZA DELIVERY Ot R94.2 ABNORMAL RESULTS OF PULMONARY FUNCTION S 08/31/2018 MATILDE ADAMS MD Ot K21.9 GASTRO-ESOPHAGEAL REFLUX DISEASE WITHOUT 08/31/2018 MATILDE ADAMS MD Ot Z01.818 ENCOUNTER FOR OTHER PREPROCEDURAL EXAMIN 08/31/2018 AUDREY AYOUB PIZZA DELIVERY Ot G47.00 INSOMNIA, UNSPECIFIED 08/31/2018 AUDREY AYOUB PIZZA DELIVERY Ot G47.30 SLEEP APNEA, UNSPECIFIED 08/31/2018 AUDREY AYOUB PIZZA DELIVERY Ot J44.9 CHRONIC OBSTRUCTIVE PULMONARY DISEASE, U 08/31/2018 AUDREY AYOUB APRN Ot Z01.818 ENCOUNTER FOR OTHER PREPROCEDURAL EXAMIN 09/01/2018 AUDREY AYOUB APRN Ot G47.30 SLEEP APNEA, UNSPECIFIED 09/01/2018 AUDREY AYOUB PIZZA DELIVERY Ot J42 UNSPECIFIED CHRONIC BRONCHITIS 09/01/2018 AUDREY AYOUB PIZZA DELIVERY Ot J44.9 CHRONIC OBSTRUCTIVE PULMONARY DISEASE, U 09/01/2018 AUDREY AYOUB PIZZA DELIVERY Ot J45.909 UNSPECIFIED ASTHMA, UNCOMPLICATED 09/01/2018 AUDREY AYOUB PIZZA DELIVERY Ot K76.0 FATTY (CHANGE OF) LIVER, NOT ELSEWHERE C 09/01/2018 AUDREY AYOUB PIZZA DELIVERY Ot R16.2 HEPATOMEGALY WITH SPLENOMEGALY, NOT ELSE 09/01/2018 AUDREY AYOUB PIZZA DELIVERY Ot Z86.11 PERSONAL HISTORY OF TUBERCULOSIS 09/01/2018 WEN POOL DO Ot E04.1 NONTOXIC SINGLE THYROID NODULE 09/01/2018 WEN POOL DO Ot I26.99 OTHER PULMONARY EMBOLISM WITHOUT ACUTE C 09/01/2018 WEN POOL DO Ot K43.9 VENTRAL HERNIA WITHOUT OBSTRUCTION OR GA 09/01/2018 WEN OPOL DO Ot K76.0 FATTY (CHANGE OF) LIVER, NOT ELSEWHERE C 09/01/2018 WEN POOL DO Ot R22.43 LOCALIZED SWELLING, MASS AND LUMP, LOWER 09/01/2018 AUDREY AYOUB PIZZA DELIVERY Ot J44.9 CHRONIC OBSTRUCTIVE PULMONARY DISEASE, U 09/01/2018 AUDREY AYOUB PIZZA DELIVERY Ot E04.1 NONTOXIC SINGLE THYROID NODULE 09/01/2018 AUDREY AYOUB PIZZA DELIVERY Ot F41.9 ANXIETY DISORDER, UNSPECIFIED 09/01/2018 AUDREY AYOUB PIZZA DELIVERY Ot I26.99 OTHER PULMONARY EMBOLISM WITHOUT ACUTE C 09/01/2018 AUDREY AYOUB PIZZA DELIVERY Ot J44.9 CHRONIC OBSTRUCTIVE PULMONARY DISEASE, U 09/01/2018 AUDREY AYOUB PIZZA DELIVERY Ot J98.4 OTHER DISORDERS OF LUNG 09/01/2018 AUDREY AYOUB PIZZA DELIVERY Ot I26.99 OTHER PULMONARY EMBOLISM WITHOUT ACUTE C 09/01/2018 AUDREY AYOUB PIZZA DELIVERY Ot J44.9 CHRONIC OBSTRUCTIVE PULMONARY DISEASE, U 09/01/2018 AUDREY AYOUB PIZZA DELIVERY Ot J98.4 OTHER DISORDERS OF LUNG 09/01/2018 AUDREY AYOUB PIZZA DELIVERY Ot R09.02 HYPOXEMIA 09/01/2018 AUDREY AYOUB PIZZA DELIVERY Ot J42 UNSPECIFIED CHRONIC BRONCHITIS 09/01/2018 AUDREY AYOUB PIZZA DELIVERY Ot J45.909 UNSPECIFIED ASTHMA, UNCOMPLICATED 09/01/2018 AUDREY AYOUB PIZZA DELIVERY Ot J98.4 OTHER DISORDERS OF LUNG 09/01/2018 AUDREY AYOUB PIZZA DELIVERY Ot J42 UNSPECIFIED CHRONIC BRONCHITIS 09/01/2018 AUDREY AYOUB PIZZA DELIVERY Ot J45.909 UNSPECIFIED ASTHMA, UNCOMPLICATED 09/01/2018 AUDREY AYOUB PIZZA DELIVERY Ot J98.4 OTHER DISORDERS OF LUNG 09/01/2018 AUDREY AYOUB PIZZA DELIVERY Ot R09.02 HYPOXEMIA 09/01/2018 AUDREY AYOUB PIZZA DELIVERY Ot R94.2 ABNORMAL RESULTS OF PULMONARY FUNCTION S 09/01/2018 AUDREY AYOUB PIZZA DELIVERY Ot E07.9 DISORDER OF THYROID, UNSPECIFIED 09/01/2018 AUDREY AYOUB PIZZA DELIVERY Ot F41.9 ANXIETY DISORDER, UNSPECIFIED 09/01/2018 AUDREY AYOUB PIZZA DELIVERY Ot G47.30 SLEEP APNEA, UNSPECIFIED 09/01/2018 AUDREY AYOUB PIZZA DELIVERY Ot J44.9 CHRONIC OBSTRUCTIVE PULMONARY DISEASE, U 09/01/2018 AUDREY AYOUB PIZZA DELIVERY Ot J45.909 UNSPECIFIED ASTHMA, UNCOMPLICATED 09/01/2018 AUDREY AYOUB PIZZA DELIVERY Ot J98.4 OTHER DISORDERS OF LUNG 09/01/2018 AUDREY AYOUB PIZZA DELIVERY Ot R09.02 HYPOXEMIA 09/01/2018 AUDREY AYOUB PIZZA DELIVERY Ot R94.2 ABNORMAL RESULTS OF PULMONARY FUNCTION S 09/01/2018 MATILDE ADAMS MD Ot K21.9 GASTRO-ESOPHAGEAL REFLUX DISEASE WITHOUT 09/01/2018 MATILDE ADAMS MD Ot Z01.818 ENCOUNTER FOR OTHER PREPROCEDURAL EXAMIN 09/01/2018 AUDREY AYOUB PIZZA DELIVERY Ot G47.00 INSOMNIA, UNSPECIFIED 09/01/2018 AUDREY AYOUB PIZZA DELIVERY Ot G47.30 SLEEP APNEA, UNSPECIFIED 09/01/2018 AUDREY AYOUB PIZZA DELIVERY Ot J44.9 CHRONIC OBSTRUCTIVE PULMONARY DISEASE, U 09/01/2018 AUDREY AYOUB PIZZA DELIVERY Ot Z01.818 ENCOUNTER FOR OTHER PREPROCEDURAL EXAMIN 09/01/2018 DEMETRIUS LOPEZ MD Ot E86.0 DEHYDRATION 09/01/2018 DEMETRIUS LOPEZ MD Ot F32.9 MAJOR DEPRESSIVE DISORDER, SINGLE EPISOD 09/01/2018 DEMETRIUS LOPEZ MD Ot F41.9 ANXIETY DISORDER, UNSPECIFIED 09/01/2018 DEMETRIUS LOPEZ MD Ot F64.9 GENDER IDENTITY DISORDER, UNSPECIFIED 09/01/2018 DEMETRIUS LOPEZ MD Ot G47.30 SLEEP APNEA, UNSPECIFIED 09/01/2018 DEMETRIUS LOPEZ MD Ot G89.18 OTHER ACUTE POSTPROCEDURAL PAIN 09/01/2018 DEMETRIUS LOPEZ MD Ot J44.9 CHRONIC OBSTRUCTIVE PULMONARY DISEASE, U 09/01/2018 DEMETRIUS LOPEZ MD Ot K21.9 GASTRO-ESOPHAGEAL REFLUX DISEASE WITHOUT 09/01/2018 DEMETRIUS LOPEZ MD Ot R10.12 LEFT UPPER QUADRANT PAIN 09/01/2018 DEMETRIUS LOPEZ MD Ot R50.9 FEVER, UNSPECIFIED 09/01/2018 DEMETRIUS LOPEZ MD Ot Z79.51 TILE CONDUIT LAYER (CURRENT) USE OF INHALED STERO 09/01/2018 DEMETRIUS LOPEZ MD Ot Z86.711 PERSONAL HISTORY OF PULMONARY EMBOLISM 09/01/2018 DEMETRIUS LOPEZ MD Ot Z86.79 PERSONAL HISTORY OF OTHER DISEASES OF TH 09/01/2018 DEMETRIUS LOPEZ MD Ot Z87.19 PERSONAL HISTORY OF OTHER DISEASES OF TH 09/01/2018 DEMETRIUS LOPEZ MD Ot Z88.5 ALLERGY STATUS TO NARCOTIC AGENT STATUS 09/01/2018 DEMETRIUS LOPEZ MD, Ot Z88.8 ALLERGY STATUS TO OTH DRUG/MEDS/BIOL SUB 09/01/2018 DEMETRIUS LOPEZ MD Ot Z90.710 ACQUIRED ABSENCE OF BOTH CERVIX AND UTER 09/01/2018 DEMETRIUS LOPEZ MD Ot Z98.84 BARIATRIC SURGERY STATUS 09/01/2018 DEMETRIUS LOPEZ MD Ot Z98.890 OTHER SPECIFIED [...] UNSPECIFIED 09/03/2018 DEMETRIUS LOPEZ MD Ot Z79.51 CORRECTION (CURRENT) USE OF INHALED STERO 09/03/2018 DEMETRIUS [...] UNSPECIFIED 09/03/2018 DEMETRIUS LOPEZ MD Ot Z79.51 CORRECTION (CURRENT) USE OF INHALED STERO 09/03/2018 DEMETRIUS LOPEZ MD Ot Z86.711 PERSONAL HISTORY OF PULMONARY EMBOLISM 09/03/2018 DEMETRIUS LOPEZ MD Ot Z86.79 PERSONAL HISTORY OF OTHER DISEASES OF 09/03/2018 DEMETRIUS LOPEZ MD Ot Z87.19 PERSONAL HISTORY OF OTHER DISEASES OF 09/03/2018 DEMETRIUS LOPEZ MD Ot Z88.5 ALLERGY STATUS [...] DEPRESSIVE DISORDER, SINGLE EPISOD 09/04/2018 DEMETRIUS LOPEZ MD Ot F41.9 ANXIETY DISORDER, UNSPECIFIED 09/04/2018 DEMETRIUS [...] UNSPECIFIED 09/04/2018 DEMETRIUS LOPEZ MD Ot Z79.51 TILE CONDUIT LAYER (CURRENT) USE OF INHALED STERO 09/04/2018 DEMETRIUS LOPEZ MD Ot Z86.711 PERSONAL HISTORY OF PULMONARY EMBOLISM 09/04/2018 DEMETRIUS LOPEZ MD Ot Z86.79 PERSONAL HISTORY OF OTHER DISEASES OF 09/04/2018 DEMETRIUS LOPEZ MD Ot Z87.19 PERSONAL HISTORY OF OTHER DISEASES OF 09/04/2018 DEMETRIUS LOPEZ MD Ot Z88.5 ALLERGY STATUS TO NARCOTIC AGENT STATUS 09/04/2018 DEMETRIUS LOPEZ MD Ot Z88.8 ALLERGY STATUS TO OTH DRUG/MEDS/BIOL SUB 09/04/2018 DEMETRIUS LOPEZ MD Ot Z90.710 ACQUIRED ABSENCE OF BOTH CERVIX AND UTER 09/04/2018 DEMETRIUS LOPEZ MD Ot Z98.84 BARIATRIC SURGERY STATUS 09/04/2018 DEMETRIUS LOPEZ MD Ot Z98.890 OTHER SPECIFIED POSTPROCEDURAL STATES 09/06/2018 DEMETRIUS LOPEZ MD Ot E86.0 DEHYDRATION 09/06/2018 DEMETRIUS LOPEZ MD Ot F32.9 MAJOR DEPRESSIVE DISORDER, SINGLE EPISOD 09/06/2018 DEMETRIUS LOPEZ MD Ot F41.9 ANXIETY DISORDER, UNSPECIFIED 09/06/2018 DEMETRIUS [...] UNSPECIFIED 09/06/2018 DEMETRIUS LOPEZ MD Ot Z79.51 CORRECTION (CURRENT) USE OF INHALED STERO 09/06/2018 DEMETRIUS LOPEZ MD Ot Z86.711 PERSONAL HISTORY OF PULMONARY EMBOLISM 09/06/2018 DEMETRIUS LOPEZ MD Ot Z86.79 PERSONAL HISTORY OF OTHER DISEASES OF 09/06/2018 DEMETRIUS LOPEZ MD Ot Z87.19 PERSONAL HISTORY OF OTHER DISEASES OF 09/06/2018 DEMETRIUS LOPEZ MD Ot Z88.5 ALLERGY STATUS TO NARCOTIC AGENT STATUS 09/06/2018 DEMETRIUS LOPEZ MD Ot Z88.8 ALLERGY STATUS TO OTH DRUG/MEDS/BIOL SUB 09/06/2018 DEMETRIUS LOPEZ MD Ot Z90.710 ACQUIRED ABSENCE OF BOTH CERVIX AND UTER 09/06/2018 DEMETRIUS LOPEZ MD Ot Z98.84 BARIATRIC SURGERY STATUS 09/06/2018 DEMETRIUS LOPEZ MD, Ot Z98.890 OTHER SPECIFIED POSTPROCEDURAL STATES 09/10/2018 MATILDE ADAMS MD Ot R10.9 UNSPECIFIED ABDOMINAL PAIN 09/10/2018 MATILDE ADAMS MD Ot Z98.84 BARIATRIC SURGERY STATUS 09/10/2018 AUDREY AYOUB PIZZA DELIVERY Ot E07.9 DISORDER OF THYROID, UNSPECIFIED 09/10/2018 AUDREY AYOUB PIZZA DELIVERY Ot F41.9 ANXIETY DISORDER, UNSPECIFIED 09/10/2018 AUDREY AYOUB PIZZA DELIVERY Ot G47.30 SLEEP APNEA, UNSPECIFIED 09/10/2018 AUDREY AYOUB APRN Ot J44.9 CHRONIC OBSTRUCTIVE PULMONARY DISEASE, U 09/10/2018 AUDREY AYOUB PIZZA DELIVERY Ot J45.909 UNSPECIFIED ASTHMA, UNCOMPLICATED 09/10/2018 AUDREY AYOUB PIZZA DELIVERY Ot J98.4 OTHER DISORDERS OF LUNG 09/10/2018 AUDREY AYOUB PIZZA DELIVERY Ot R09.02 HYPOXEMIA 09/10/2018 AUDREY AYOUB APRN Ot R94.2 ABNORMAL RESULTS OF PULMONARY FUNCTION S 09/10/2018 MATILDE ADAMS MD Ot E03.9 HYPOTHYROIDISM, UNSPECIFIED 09/10/2018 MATILDE ADAMS MD Ot E66.01 MORBID (SEVERE) OBESITY DUE TO EXCESS CA 09/10/2018 MATILDE ADAMS MD Ot E78.00 PURE HYPERCHOLESTEROLEMIA, UNSPECIFIED 09/10/2018 MATILDE ADAMS MD Ot F32.9 MAJOR DEPRESSIVE DISORDER, SINGLE EPISOD 09/10/2018 MATILDE ADAMS MD Ot F41.9 ANXIETY DISORDER, UNSPECIFIED 09/10/2018 MATILDE ADAMS MD Ot G25.81 RESTLESS LEGS SYNDROME 09/10/2018 MATILDE ADAMS MD Ot G47.00 INSOMNIA, UNSPECIFIED 09/10/2018 MATILDE ADAMS MD Ot G47.33 OBSTRUCTIVE SLEEP APNEA (ADULT) (PEDIATR 09/10/2018 MATILDE ADAMS MD, Ot J44.9 CHRONIC OBSTRUCTIVE PULMONARY DISEASE, U 09/10/2018 MATILDE ADAMS MD Ot 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 09/10/2018 MATILDE ADAMS MD, Ot M16.0 BILATERAL PRIMARY OSTEOARTHRITIS OF HIP 09/10/2018 MATILDE ADAMS MD, Ot M17.0 BILATERAL PRIMARY OSTEOARTHRITIS OF KNEE 09/10/2018 MATILDE ADAMS MD Ot M79.7 FIBROMYALGIA 09/10/2018 MATILDE ADAMS MD Ot R60.9 EDEMA, UNSPECIFIED 09/10/2018 MATILDE ADAMS MD, Ot Z99.81 DEPENDENCE ON SUPPLEMENTAL OXYGEN 09/11/2018 MATILDE ADAMS MD Ot E03.9 HYPOTHYROIDISM, UNSPECIFIED 09/11/2018 MATILDE ADAMS MD Ot E66.01 MORBID (SEVERE) OBESITY DUE TO EXCESS CA 09/11/2018 MATILDE ADAMS MD Ot E78.00 PURE HYPERCHOLESTEROLEMIA, UNSPECIFIED 09/11/2018 MATILDE ADAMS MD Ot F32.9 MAJOR DEPRESSIVE DISORDER, SINGLE EPISOD 09/11/2018 MATILDE ADAMS MD, Ot F41.9 ANXIETY DISORDER, UNSPECIFIED 09/11/2018 MATILDE ADAMS MD Ot G25.81 RESTLESS LEGS SYNDROME 09/11/2018 MATILDE ADAMS MD Ot G47.00 INSOMNIA, UNSPECIFIED 09/11/2018 MATILDE ADAMS MD Ot G47.33 OBSTRUCTIVE SLEEP APNEA (ADULT) (PEDIATR 09/11/2018 MATILDE ADAMS MD, Ot J44.9 CHRONIC OBSTRUCTIVE PULMONARY DISEASE, U 09/11/2018 MATILDE ADAMS MD Ot 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 09/11/2018 MATILDE ADAMS MD, Ot M16.0 BILATERAL PRIMARY OSTEOARTHRITIS OF HIP 09/11/2018 MATILDE ADAMS MD, Ot M17.0 BILATERAL PRIMARY OSTEOARTHRITIS OF KNEE 09/11/2018 MATILDE ADAMS MD Ot M79.7 FIBROMYALGIA 09/11/2018 MATILDE ADAMS MD Ot R60.9 EDEMA, UNSPECIFIED 09/11/2018 MATILDE ADAMS MD Ot Z99.81 DEPENDENCE ON SUPPLEMENTAL OXYGEN 09/12/2018 MATILDE ADAMS MD Ot E03.9 HYPOTHYROIDISM, UNSPECIFIED 09/12/2018 MATILDE ADAMS MD Ot E66.01 MORBID (SEVERE) OBESITY DUE TO EXCESS CA 09/12/2018 MATILDE ADAMS MD Ot E78.00 PURE HYPERCHOLESTEROLEMIA, UNSPECIFIED 09/12/2018 MATILDE ADAMS MD Ot F32.9 MAJOR DEPRESSIVE DISORDER, SINGLE EPISOD 09/12/2018 MATILDE ADAMS MD Ot F41.9 ANXIETY DISORDER, UNSPECIFIED 09/12/2018 MATILDE ADAMS MD Ot G25.81 RESTLESS LEGS SYNDROME 09/12/2018 MATILDE ADAMS MD Ot G47.00 INSOMNIA, UNSPECIFIED 09/12/2018 MATILDE ADAMS MD Ot G47.33 OBSTRUCTIVE SLEEP APNEA (ADULT) (PEDIATR 09/12/2018 MATILDE AADMS MD Ot J44.9 CHRONIC OBSTRUCTIVE PULMONARY DISEASE, U 09/12/2018 MATILDE ADAMS MD Ot 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 09/12/2018 MATILDE ADAMS MD Ot M16.0 BILATERAL PRIMARY OSTEOARTHRITIS OF HIP 09/12/2018 MATILDE ADAMS MD Ot M17.0 BILATERAL PRIMARY OSTEOARTHRITIS OF KNEE 09/12/2018 MATILDE ADAMS MD Ot M79.7 FIBROMYALGIA 09/12/2018 MATILDE ADAMS MD Ot R60.9 EDEMA, UNSPECIFIED 09/12/2018 MATILDE ADAMS MD Ot Z99.81 DEPENDENCE ON SUPPLEMENTAL OXYGEN 09/13/2018 MATILDE ADAMS MD Ot E03.9 HYPOTHYROIDISM, UNSPECIFIED 09/13/2018 MATILDE ADAMS MD Ot E66.01 MORBID (SEVERE) OBESITY DUE TO EXCESS CA 09/13/2018 MATILDE ADAMS MD Ot E78.00 PURE HYPERCHOLESTEROLEMIA, UNSPECIFIED 09/13/2018 MATILDE ADAMS MD Ot F32.9 MAJOR DEPRESSIVE DISORDER, SINGLE EPISOD 09/13/2018 MATILDE ADAMS MD Ot F41.9 ANXIETY DISORDER, UNSPECIFIED 09/13/2018 MATILDE ADAMS MD Ot G25.81 RESTLESS LEGS SYNDROME 09/13/2018 MATILDE ADAMS MD Ot G47.00 INSOMNIA, UNSPECIFIED 09/13/2018 MATILDE ADAMS MD Ot G47.33 OBSTRUCTIVE SLEEP APNEA (ADULT) (PEDIATR 09/13/2018 MATILDE ADAMS MD, Ot J44.9 CHRONIC OBSTRUCTIVE PULMONARY DISEASE, U 09/13/2018 MATILDE ADAMS MD Ot 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 09/13/2018 MATILDE ADAMS MD, Ot M16.0 BILATERAL PRIMARY OSTEOARTHRITIS OF HIP 09/13/2018 MATILDE ADAMS MD, Ot M17.0 BILATERAL PRIMARY OSTEOARTHRITIS OF KNEE 09/13/2018 MATILDE ADAMS MD Ot M79.7 FIBROMYALGIA 09/13/2018 MATILDE ADAMS MD Ot R60.9 EDEMA, UNSPECIFIED 09/13/2018 MATILDE ADAMS MD, Ot Z99.81 DEPENDENCE ON SUPPLEMENTAL OXYGEN 09/13/2018 MATILDE ADAMS MD Ot E03.9 HYPOTHYROIDISM, UNSPECIFIED 09/13/2018 MATILDE ADAMS MD Ot E66.01 MORBID (SEVERE) OBESITY DUE TO EXCESS CA 09/13/2018 MATILDE ADAMS MD Ot E78.00 PURE HYPERCHOLESTEROLEMIA, UNSPECIFIED 09/13/2018 MATILDE ADAMS MD Ot F32.9 MAJOR DEPRESSIVE DISORDER, SINGLE EPISOD 09/13/2018 MATILDE ADAMS MD, Ot F41.9 ANXIETY DISORDER, UNSPECIFIED 09/13/2018 MATILDE ADAMS MD Ot G25.81 RESTLESS LEGS SYNDROME 09/13/2018 MATILDE ADAMS MD, Ot G47.00 INSOMNIA, UNSPECIFIED 09/13/2018 MATILDE ADAMS MD Ot G47.33 OBSTRUCTIVE SLEEP APNEA (ADULT) (PEDIATR 09/13/2018 MATILDE ADAMS MD, Ot J44.9 CHRONIC OBSTRUCTIVE PULMONARY DISEASE, U 09/13/2018 MATILDE ADAMS MD Ot 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 09/13/2018 MATILDE ADAMS MD, Ot M16.0 BILATERAL PRIMARY OSTEOARTHRITIS OF HIP 09/13/2018 MATILDE ADAMS MD, Ot M17.0 BILATERAL PRIMARY OSTEOARTHRITIS OF KNEE 09/13/2018 MATILDE ADAMS MD Ot M79.7 FIBROMYALGIA 09/13/2018 MATILDE ADAMS MD Ot R60.9 EDEMA, UNSPECIFIED 09/13/2018 MATILDE ADAMS MD Ot Z99.81 DEPENDENCE ON SUPPLEMENTAL OXYGEN 09/14/2018 MATILDE ADAMS MD Ot E03.9 HYPOTHYROIDISM, UNSPECIFIED 09/14/2018 MATILDE ADAMS MD Ot E66.01 MORBID (SEVERE) OBESITY DUE TO EXCESS CA 09/14/2018 MATILDE ADAMS MD Ot E78.00 PURE HYPERCHOLESTEROLEMIA, UNSPECIFIED 09/14/2018 MATILDE ADAMS MD Ot F32.9 MAJOR DEPRESSIVE DISORDER, SINGLE EPISOD 09/14/2018 MATILDE ADAMS MD Ot F41.9 ANXIETY DISORDER, UNSPECIFIED 09/14/2018 MATILDE ADAMS MD Ot G25.81 RESTLESS LEGS SYNDROME 09/14/2018 MATILDE ADAMS MD Ot G47.00 INSOMNIA, UNSPECIFIED 09/14/2018 MATILDE ADAMS MD Ot G47.33 OBSTRUCTIVE SLEEP APNEA (ADULT) (PEDIATR 09/14/2018 MATILDE ADAMS MD, Ot J44.9 CHRONIC OBSTRUCTIVE PULMONARY DISEASE, U 09/14/2018 MATILDE ADAMS MD Ot 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 09/14/2018 MATILDE ADAMS MD Ot M16.0 BILATERAL PRIMARY OSTEOARTHRITIS OF HIP 09/14/2018 MATILDE ADAMS MD Ot M17.0 BILATERAL PRIMARY OSTEOARTHRITIS OF KNEE 09/14/2018 MATILDE ADAMS MD Ot M79.7 FIBROMYALGIA 09/14/2018 MATILDE ADAMS MD Ot R60.9 EDEMA, UNSPECIFIED 09/14/2018 MATILDE ADAMS MD Ot Z99.81 DEPENDENCE ON SUPPLEMENTAL OXYGEN 09/15/2018 MATILDE ADAMS MD Ot E03.9 HYPOTHYROIDISM, UNSPECIFIED 09/15/2018 MATILDE ADAMS MD Ot E66.01 MORBID (SEVERE) OBESITY DUE TO EXCESS CA 09/15/2018 MATILDE ADAMS MD Ot E78.00 PURE HYPERCHOLESTEROLEMIA, UNSPECIFIED 09/15/2018 MATILDE ADAMS MD Ot F32.9 MAJOR DEPRESSIVE DISORDER, SINGLE EPISOD 09/15/2018 MATILDE ADAMS MD Ot F41.9 ANXIETY DISORDER, UNSPECIFIED 09/15/2018 MATILDE ADAMS MD Ot G25.81 RESTLESS LEGS SYNDROME 09/15/2018 MATILDE ADAMS MD Ot G47.00 INSOMNIA, UNSPECIFIED 09/15/2018 MATILDE ADAMS MD Ot G47.33 OBSTRUCTIVE SLEEP APNEA (ADULT) (PEDIATR 09/15/2018 MATILDE ADAMS MD Ot J44.9 CHRONIC OBSTRUCTIVE PULMONARY DISEASE, U 09/15/2018 MATILDE ADAMS MD Ot 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 09/15/2018 MATILDE ADAMS MD Ot M16.0 BILATERAL PRIMARY OSTEOARTHRITIS OF HIP 09/15/2018 MATILDE ADAMS MD, Ot M17.0 BILATERAL PRIMARY OSTEOARTHRITIS OF KNEE 09/15/2018 MATILDE ADAMS MD Ot M79.7 FIBROMYALGIA 09/15/2018 MATILDE ADAMS MD Ot R60.9 EDEMA, UNSPECIFIED 09/15/2018 MATILDE ADAMS MD Ot Z99.81 DEPENDENCE ON SUPPLEMENTAL OXYGEN 09/16/2018 MATILDE ADAMS MD Ot E03.9 HYPOTHYROIDISM, UNSPECIFIED 09/16/2018 MATILDE ADAMS MD Ot E66.01 MORBID (SEVERE) OBESITY DUE TO EXCESS CA 09/16/2018 MATILDE ADAMS MD Ot E78.00 PURE HYPERCHOLESTEROLEMIA, UNSPECIFIED 09/16/2018 MATILDE ADAMS MD Ot F32.9 MAJOR DEPRESSIVE DISORDER, SINGLE EPISOD 09/16/2018 MATILDE ADAMS MD Ot F41.9 ANXIETY DISORDER, UNSPECIFIED 09/16/2018 MATILDE ADAMS MD Ot G25.81 RESTLESS LEGS SYNDROME 09/16/2018 MATILDE ADAMS MD Ot G47.00 INSOMNIA, UNSPECIFIED 09/16/2018 MATILDE ADAMS MD Ot G47.33 OBSTRUCTIVE SLEEP APNEA (ADULT) (PEDIATR 09/16/2018 MATILDE ADAMS MD, Ot J44.9 CHRONIC OBSTRUCTIVE PULMONARY DISEASE, U 09/16/2018 MATILDE ADAMS MD Ot 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 09/16/2018 MATILDE ADAMS MD, Ot M16.0 BILATERAL PRIMARY OSTEOARTHRITIS OF HIP 09/16/2018 MATILDE ADAMS MD Ot M17.0 BILATERAL PRIMARY OSTEOARTHRITIS OF KNEE 09/16/2018 MATILDE ADAMS MD, Ot M79.7 FIBROMYALGIA 09/16/2018 MATILDE ADAMS MD Ot R60.9 EDEMA, UNSPECIFIED 09/16/2018 MATILDE ADAMS MD Ot Z99.81 DEPENDENCE ON SUPPLEMENTAL OXYGEN 09/17/2018 MATILDE ADAMS MD Ot E03.9 HYPOTHYROIDISM, UNSPECIFIED 09/17/2018 MATILDE ADAMS MD Ot E66.01 MORBID (SEVERE) OBESITY DUE TO EXCESS CA 09/17/2018 MATILDE ADAMS MD Ot E78.00 PURE HYPERCHOLESTEROLEMIA, UNSPECIFIED 09/17/2018 MATILDE ADAMS MD, Ot F32.9 MAJOR DEPRESSIVE DISORDER, SINGLE EPISOD 09/17/2018 MATILDE ADAMS MD, Ot F41.9 ANXIETY DISORDER, UNSPECIFIED 09/17/2018 MATILDE ADAMS MD Ot G25.81 RESTLESS LEGS SYNDROME 09/17/2018 MATILDE ADAMS MD Ot G47.00 INSOMNIA, UNSPECIFIED 09/17/2018 MATILDE ADAMS MD Ot G47.33 OBSTRUCTIVE SLEEP APNEA (ADULT) (PEDIATR 09/17/2018 MATILDE ADAMS MD, Ot J44.9 CHRONIC OBSTRUCTIVE PULMONARY DISEASE, U 09/17/2018 MATILDE ADAMS MD Ot 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 09/17/2018 MATILDE ADAMS MD Ot M16.0 BILATERAL PRIMARY OSTEOARTHRITIS OF HIP 09/17/2018 MATILDE ADAMS MD Ot M17.0 BILATERAL PRIMARY OSTEOARTHRITIS OF KNEE 09/17/2018 MATILDE ADAMS MD Ot M79.7 FIBROMYALGIA 09/17/2018 MATILDE ADAMS MD Ot R60.9 EDEMA, UNSPECIFIED 09/17/2018 MATILDE ADAMS MD Ot Z99.81 DEPENDENCE ON SUPPLEMENTAL OXYGEN 09/18/2018 DEMETRIUS LOPEZ MD Ot E86.0 DEHYDRATION 09/18/2018 DEMETRIUS LOPEZ MD, Ot F32.9 MAJOR DEPRESSIVE DISORDER, SINGLE EPISOD 09/18/2018 DEMETRIUS LOPEZ MD, Ot F41.9 ANXIETY DISORDER, UNSPECIFIED 09/18/2018 DEMETRIUS LOPEZ MD Ot F64.9 GENDER IDENTITY DISORDER, UNSPECIFIED 09/18/2018 DEMETRIUS LOPEZ MD Ot G47.30 SLEEP APNEA, UNSPECIFIED 09/18/2018 DEMETRIUS LOPEZ MD Ot G89.18 OTHER ACUTE POSTPROCEDURAL PAIN 09/18/2018 DEMETRIUS LOPEZ MD, Ot J44.9 CHRONIC OBSTRUCTIVE PULMONARY DISEASE, U 09/18/2018 DEMETRIUS LOPEZ MD Ot K21.9 GASTRO-ESOPHAGEAL REFLUX DISEASE WITHOUT 09/18/2018 DEMETRIUS LOPEZ MD Ot R10.12 LEFT UPPER QUADRANT PAIN 09/18/2018 DEMETRIUS LOPEZ MD, Ot R50.9 FEVER, UNSPECIFIED 09/18/2018 DEMETRIUS LOPEZ MD, Ot Z79.51 TILE CONDUIT LAYER (CURRENT) USE OF INHALED STERO 09/18/2018 DEMETRIUS LOPEZ MD, Ot Z86.711 PERSONAL HISTORY OF PULMONARY EMBOLISM 09/18/2018 DEMETRIUS LOPEZ MD, Ot Z86.79 PERSONAL HISTORY OF OTHER DISEASES OF TH 09/18/2018 DEMETRIUS LOPEZ MD, Ot Z87.19 PERSONAL HISTORY OF OTHER DISEASES OF 09/18/2018 DEMETRIUS LOPEZ MD, Ot Z88.5 ALLERGY STATUS TO NARCOTIC AGENT STATUS 09/18/2018 DEMETRIUS LOPEZ MD, Ot Z88.8 ALLERGY STATUS TO OTH DRUG/MEDS/BIOL SUB 09/18/2018 DEMETRIUS LOPEZ MD, Ot Z90.710 ACQUIRED ABSENCE OF BOTH CERVIX AND UTER 09/18/2018 DEMETRIUS LOPEZ MD, Ot Z98.84 BARIATRIC SURGERY STATUS 09/18/2018 DEMETRIUS LOPEZ MD, Ot Z98.890 OTHER SPECIFIED POSTPROCEDURAL STATES 09/18/2018 MATILDE ADAMS MD, Ot E03.9 HYPOTHYROIDISM, UNSPECIFIED 09/18/2018 MATILDE ADAMS MD Ot E66.01 MORBID (SEVERE) OBESITY DUE TO EXCESS CA 09/18/2018 MATILDE ADAMS MD, Ot E78.00 PURE HYPERCHOLESTEROLEMIA, UNSPECIFIED 09/18/2018 MATILDE ADAMS MD, Ot F32.9 MAJOR DEPRESSIVE DISORDER, SINGLE EPISOD 09/18/2018 MATILDE ADAMS MD, Ot F41.9 ANXIETY DISORDER, UNSPECIFIED 09/18/2018 MATILDE ADAMS MD, Ot G25.81 RESTLESS LEGS SYNDROME 09/18/2018 MATILDE ADAMS MD, Ot G47.00 INSOMNIA, UNSPECIFIED 09/18/2018 MATILDE ADAMS MD, Ot G47.33 OBSTRUCTIVE SLEEP APNEA (ADULT) (PEDIATR 09/18/2018 MATILDE ADAMS MD, Ot J44.9 CHRONIC OBSTRUCTIVE PULMONARY DISEASE, U 09/18/2018 MATILDE ADAMS MD Ot 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 09/18/2018 MATILDE ADAMS MD, Ot M16.0 BILATERAL PRIMARY OSTEOARTHRITIS OF HIP 09/18/2018 MATILDE ADAMS MD, Ot M17.0 BILATERAL PRIMARY OSTEOARTHRITIS OF KNEE 09/18/2018 MATILDE ADAMS MD, Ot M79.7 FIBROMYALGIA 09/18/2018 MATILDE ADAMS MD, Ot R60.9 EDEMA, UNSPECIFIED 09/18/2018 MATILDE ADAMS MD, Ot Z99.81 DEPENDENCE ON SUPPLEMENTAL OXYGEN 09/18/2018 MATILDE ADAMS MD, Ot E03.9 HYPOTHYROIDISM, UNSPECIFIED 09/18/2018 MATILDE ADAMS MD, Ot E66.01 MORBID (SEVERE) OBESITY DUE TO EXCESS CA 09/18/2018 MATILDE ADAMS MD, Ot E78.00 PURE HYPERCHOLESTEROLEMIA, UNSPECIFIED 09/18/2018 MATILDE ADAMS MD, Ot F32.9 MAJOR DEPRESSIVE DISORDER, SINGLE EPISOD 09/18/2018 MATILDE ADAMS MD, Ot F41.9 ANXIETY DISORDER, UNSPECIFIED 09/18/2018 MATILDE ADAMS MD, Ot G25.81 RESTLESS LEGS SYNDROME 09/18/2018 MATILDE ADAMS MD Ot G47.00 INSOMNIA, UNSPECIFIED 09/18/2018 MATILDE ADAMS MD Ot G47.33 OBSTRUCTIVE SLEEP APNEA (ADULT) (PEDIATR 09/18/2018 MATILDE ADAMS MD, Ot G62.9 POLYNEUROPATHY, UNSPECIFIED 09/18/2018 MATILDE ADAMS MD Ot I10 ESSENTIAL (PRIMARY) HYPERTENSION 09/18/2018 MATILDE ADAMS MD, Ot J43.9 EMPHYSEMA, UNSPECIFIED 09/18/2018 MATILDE ADAMS MD, Ot K21.9 GASTRO-ESOPHAGEAL REFLUX DISEASE WITHOUT 09/18/2018 MATILDE ADAMS MD Ot 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 09/18/2018 MATILDE ADAMS MD, Ot M16.0 BILATERAL PRIMARY OSTEOARTHRITIS OF HIP 09/18/2018 MATILDE ADAMS MD, Ot M17.0 BILATERAL PRIMARY OSTEOARTHRITIS OF KNEE 09/18/2018 MATILDE ADAMS MD, Ot M79.7 FIBROMYALGIA 09/18/2018 MATILDE ADAMS MD, Ot N31.9 NEUROMUSCULAR DYSFUNCTION OF BLADDER, UN 09/18/2018 MATILDE ADAMS MD, Ot R60.9 EDEMA, UNSPECIFIED 09/18/2018 MATILDE ADAMS MD, Ot Z68.42 BODY MASS INDEX (BMI) 45.0-49.9, ADULT 09/18/2018 MATILDE ADAMS MD, Ot Z99.81 DEPENDENCE ON SUPPLEMENTAL OXYGEN 10/24/2018 MATILDE ADAMS MD, Ot R10.9 UNSPECIFIED ABDOMINAL PAIN 10/24/2018 MATILDE ADAMS MD, Ot Z98.84 BARIATRIC SURGERY STATUS 11/05/2018 MATILDE ADAMS MD, Ot K21.9 GASTRO-ESOPHAGEAL REFLUX DISEASE WITHOUT 11/05/2018 MATILDE ADAMS MD, Ot Z01.818 ENCOUNTER FOR OTHER PREPROCEDURAL EXAMIN 11/08/2018 AUDREY AYOUB APRN Ot G47.00 INSOMNIA, UNSPECIFIED 11/08/2018 AUDREY AYOUB PIZZA DELIVERY Ot G47.30 SLEEP APNEA, UNSPECIFIED 11/08/2018 AUDREY AYOUB PIZZA DELIVERY Ot J44.9 CHRONIC OBSTRUCTIVE PULMONARY DISEASE, U 11/08/2018 AUDREY AYOUB APRN Ot Z01.818 ENCOUNTER FOR OTHER PREPROCEDURAL EXAMIN 12/05/2018 AUDREY AYOUB PIZZA DELIVERY Ot G47.00 INSOMNIA, UNSPECIFIED 12/05/2018 AUDREY AYOUB PIZZA DELIVERY Ot G47.30 SLEEP APNEA, UNSPECIFIED 12/05/2018 AUDREY AYOUB PIZZA DELIVERY Ot J44.9 CHRONIC OBSTRUCTIVE PULMONARY DISEASE, U 12/05/2018 AUDREY AYOUB APRN Ot Z01.818 ENCOUNTER FOR OTHER PREPROCEDURAL EXAMIN Procedures Code [place] [address] OFFICE/OUTPATIENT VISIT NEW 04/03/2018 [id number] OFFICE/OUTPATIENT VISIT EST 08/06/2018 [id number] EXCISION OF STOMACH, PERCUTANEOUS ENDOSC 08/30/2018 [id number] INSERTION OF INFUSION DEV INTO SUP VENA 09/06/2018 Results Test Result Range Arterial blood gas [...] - 13:05 MRSA SCREEN RESULT MRSA ISOLATED NRG Complete blood count (CBC) with automated white [...] INFLUENZA A AND B ANTIGENS BY IA [facility] Bacterial blood culture - 09/01/18 00:13 Bacterial blood culture [facility] Complete blood count (CBC) with automated white [...] 09/01/18 00:29 Bacterial urine culture NG NRG Automated blood complete blood count (hemogram) panel - 09/06/18 15:15 Blood leukocytes automated count (number/volume) 6.8 10*3/uL 4.3-11.0 Blood erythrocytes automated count (number/volume) 3.77 10*6/uL 4.35-5.85 Venous blood hemoglobin measurement (mass/volume) 9.7 g/dL 11.5-16.0 Blood hematocrit (volume fraction) 31 % 35-52 Automated erythrocyte mean corpuscular volume 83 [foz_us] 80-99 Automated erythrocyte mean corpuscular hemoglobin (mass per erythrocyte) 26 pg 25-34 Automated erythrocyte mean corpuscular hemoglobin concentration measurement ( mass/volume) 31 g/dL 32-36 Automated erythrocyte distribution width ratio 14.1 % 10.0-14.5 Automated blood platelet count (count/volume) 268 10*3/uL 130-400 Automated blood platelet mean volume measurement 10.6 [foz_us] 7.4-10.4 PT panel in platelet poor plasma by coagulation assay - 09/06/18 15:15 Prothrombin time (PT) in platelet poor plasma by coagulation assay 14.0 s 12.2-14.7 INR in platelet poor plasma or blood by coagulation assay 1.1 0.8-1.4 Comprehensive metabolic panel - 09/06/18 15:15 Serum or plasma sodium measurement (moles/volume) 141 mmol/L 135-145 Serum or plasma potassium measurement (moles/volume) 3.4 mmol/L 3.6-5.0 Serum or plasma chloride measurement (moles/volume) 100 mmol/L 98-107 Carbon dioxide 30 mmol/L 21-32 Serum or plasma anion gap determination (moles/volume) 11 mmol/L 5-14 Serum or plasma urea nitrogen measurement (mass/volume) 10 mg/dL 7-18 Serum or plasma creatinine measurement (mass/volume) 0.63 mg/dL 0.60-1.30 Serum or plasma urea nitrogen/creatinine mass ratio 16 NRG Serum or plasma creatinine measurement with calculation of estimated glomerular filtration rate > NRG Serum or plasma glucose measurement (mass/volume) 104 mg/dL 70-105 Serum or plasma calcium measurement (mass/volume) 9.5 mg/dL 8.5-10.1 Serum or plasma total bilirubin measurement (mass/volume) 0.4 mg/dL 0.1-1.0 Serum or plasma alkaline phosphatase measurement (enzymatic activity/volume) 95 U/L 40-136 Serum or plasma aspartate aminotransferase measurement (enzymatic activity/ volume) 21 U/L 5-34 Serum or plasma alanine aminotransferase measurement (enzymatic activity/volume ) 16 U/L 0-55 Serum or plasma protein measurement (mass/volume) 6.4 g/dL 6.4-8.2 Serum or plasma albumin measurement (mass/volume) 3.2 g/dL 3.2-4.5 CALCIUM CORRECTED 10.1 mg/dL 8.5-10.1 Serum or plasma phosphate measurement (mass/volume) - 09/06/18 15:15 Serum or plasma phosphate measurement (mass/volume) 3.4 mg/dL 2.3-4.7 Magnesium - 09/06/18 15:15 Magnesium 2.2 mg/dL 1.8-2.4 Serum or plasma triglyceride measurement (mass/volume) - 09/06/18 15:15 Serum or plasma triglyceride measurement (mass/volume) 122 mg/dL <150 PREALBUMIN - 09/06/18 15:15 PREALBUM 3.1 % 18.0-37.0 Automated blood complete blood count (hemogram) panel - 09/07/18 06:35 Blood leukocytes automated count (number/volume) 5.7 10*3/uL 4.3-11.0 Blood erythrocytes automated count (number/volume) 3.76 10*6/uL 4.35-5.85 Venous blood hemoglobin measurement (mass/volume) 9.7 g/dL 11.5-16.0 Blood hematocrit (volume fraction) 32 % 35-52 Automated erythrocyte mean corpuscular volume 85 [foz_us] 80-99 Automated erythrocyte mean corpuscular hemoglobin (mass per erythrocyte) 26 pg 25-34 Automated erythrocyte mean corpuscular hemoglobin concentration measurement ( mass/volume) 31 g/dL 32-36 Automated erythrocyte distribution width ratio 13.9 % 10.0-14.5 Automated blood platelet count (count/volume) 266 10*3/uL 130-400 Automated blood platelet mean volume measurement 10.6 [foz_us] 7.4-10.4 PT panel in platelet poor plasma by coagulation assay - 09/07/18 06:35 Prothrombin time (PT) in platelet poor plasma by coagulation assay 14.4 s 12.2-14.7 INR in platelet poor plasma or blood by coagulation assay 1.1 0.8-1.4 Comprehensive metabolic panel - 09/07/18 06:35 Serum or plasma sodium measurement (moles/volume) 141 mmol/L 135-145 Serum or plasma potassium measurement (moles/volume) 3.6 mmol/L 3.6-5.0 Serum or plasma chloride measurement (moles/volume) 101 mmol/L 98-107 Carbon dioxide 29 mmol/L 21-32 Serum or plasma anion gap determination (moles/volume) 11 mmol/L 5-14 Serum or plasma urea nitrogen measurement (mass/volume) 11 mg/dL 7-18 Serum or plasma creatinine measurement (mass/volume) 0.65 mg/dL 0.60-1.30 Serum or plasma urea nitrogen/creatinine mass ratio 17 NRG Serum or plasma creatinine measurement with calculation of estimated glomerular filtration rate > NRG Serum or plasma glucose measurement (mass/volume) 117 mg/dL 70-105 Serum or plasma calcium measurement (mass/volume) 9.6 mg/dL 8.5-10.1 Serum or plasma total bilirubin measurement (mass/volume) 0.3 mg/dL 0.1-1.0 Serum or plasma alkaline phosphatase measurement (enzymatic activity/volume) 84 U/L 40-136 Serum or plasma aspartate aminotransferase measurement (enzymatic activity/ volume) 19 U/L 5-34 Serum or plasma alanine aminotransferase measurement (enzymatic activity/volume ) 17 U/L 0-55 Serum or plasma protein measurement (mass/volume) 6.2 g/dL 6.4-8.2 Serum or plasma albumin measurement (mass/volume) 3.2 g/dL 3.2-4.5 CALCIUM CORRECTED 10.2 mg/dL 8.5-10.1 Serum or plasma phosphate measurement (mass/volume) - 09/07/18 06:35 Serum or plasma phosphate measurement (mass/volume) 3.7 mg/dL 2.3-4.7 Magnesium - 09/07/18 06:35 Magnesium 2.2 mg/dL 1.8-2.4 Serum or plasma triglyceride measurement (mass/volume) - 09/07/18 06:35 Serum or plasma triglyceride measurement (mass/volume) 123 mg/dL <150 PREALBUMIN - 09/07/18 06:35 PREALBUM 3.5 % 18.0-37.0 Serum or plasma phosphate measurement (mass/volume) - 09/07/18 15:45 Serum or plasma phosphate measurement (mass/volume) 3.3 mg/dL 2.3-4.7 Magnesium - 09/07/18 15:45 Magnesium 2.2 mg/dL 1.8-2.4 Capillary blood glucose measurement by glucometer (mass/volume) - 09/07/18 18: 19 Capillary blood glucose measurement by glucometer (mass/volume) 115 mg/dL 70-110 Capillary blood glucose measurement by glucometer (mass/volume) - 09/07/18 23: 31 Capillary blood glucose measurement by glucometer (mass/volume) 131 mg/dL 70-110 Capillary blood glucose measurement by glucometer (mass/volume) - 09/08/18 05: 26 Capillary blood glucose measurement by glucometer (mass/volume) 132 mg/dL 70-110 Comprehensive metabolic panel - 09/08/18 06:40 Serum or plasma sodium measurement (moles/volume) 143 mmol/L 135-145 Serum or plasma potassium measurement (moles/volume) 4.6 mmol/L 3.6-5.0 Serum or plasma chloride measurement (moles/volume) 106 mmol/L 98-107 Carbon dioxide 29 mmol/L 21-32 Serum or plasma anion gap determination (moles/volume) 8 mmol/L 5-14 Serum or plasma urea nitrogen measurement (mass/volume) 12 mg/dL 7-18 Serum or plasma creatinine measurement (mass/volume) 0.70 mg/dL 0.60-1.30 Serum or plasma urea nitrogen/creatinine mass ratio 17 NRG Serum or plasma creatinine measurement with calculation of estimated glomerular filtration rate > NRG Serum or plasma glucose measurement (mass/volume) 118 mg/dL 70-105 Serum or plasma calcium measurement (mass/volume) 9.4 mg/dL 8.5-10.1 Serum or plasma total bilirubin measurement (mass/volume) 0.2 mg/dL 0.1-1.0 Serum or plasma alkaline phosphatase measurement (enzymatic activity/volume) 81 U/L 40-136 Serum or plasma aspartate aminotransferase measurement (enzymatic activity/ volume) 19 U/L 5-34 Serum or plasma alanine aminotransferase measurement (enzymatic activity/volume ) 16 U/L 0-55 Serum or plasma protein measurement (mass/volume) 6.3 g/dL 6.4-8.2 Serum or plasma albumin measurement (mass/volume) 3.2 g/dL 3.2-4.5 CALCIUM CORRECTED 10.0 mg/dL 8.5-10.1 Serum or plasma phosphate measurement (mass/volume) - 09/08/18 06:40 Serum or plasma phosphate measurement (mass/volume) 3.5 mg/dL 2.3-4.7 Magnesium - 09/08/18 06:40 Magnesium 2.4 mg/dL 1.8-2.4 Serum or plasma triglyceride measurement (mass/volume) - 09/08/18 06:40 Serum or plasma triglyceride measurement (mass/volume) 130 mg/dL <150 Capillary blood glucose measurement by glucometer (mass/volume) - 09/08/18 12: 50 Capillary blood glucose measurement by glucometer (mass/volume) 102 mg/dL 70-110 Capillary blood glucose measurement by glucometer (mass/volume) - 09/08/18 17: 49 Capillary blood glucose measurement by glucometer (mass/volume) 122 mg/dL 70-110 Capillary blood glucose measurement by glucometer (mass/volume) - 09/08/18 23: 54 Capillary blood glucose measurement by glucometer (mass/volume) 117 mg/dL 70-110 Capillary blood glucose measurement by glucometer (mass/volume) - 09/09/18 05: 27 Capillary blood glucose measurement by glucometer (mass/volume) 121 mg/dL 70-110 Capillary blood glucose measurement by glucometer (mass/volume) - 09/09/18 12: 12 Capillary blood glucose measurement by glucometer (mass/volume) 99 mg/dL 70-110 Capillary blood glucose measurement by glucometer (mass/volume) - 09/09/18 17: 48 Capillary blood glucose measurement by glucometer (mass/volume) 113 mg/dL 70-110 Capillary blood glucose measurement by glucometer (mass/volume) - 09/10/18 05: 11 Capillary blood glucose measurement by glucometer (mass/volume) 124 mg/dL 70-110 Capillary blood glucose measurement by glucometer (mass/volume) - 09/11/18 05: 17 Capillary blood glucose measurement by glucometer (mass/volume) 149 mg/dL 70-110 Automated blood complete blood count (hemogram) panel - 09/11/18 06:20 Blood leukocytes automated count (number/volume) 8.7 10*3/uL 4.3-11.0 Blood erythrocytes automated count (number/volume) 4.26 10*6/uL 4.35-5.85 Venous blood hemoglobin measurement (mass/volume) 10.9 g/dL 11.5-16.0 Blood hematocrit (volume fraction) 36 % 35-52 Automated erythrocyte mean corpuscular volume 85 [foz_us] 80-99 Automated erythrocyte mean corpuscular hemoglobin (mass per erythrocyte) 26 pg 25-34 Automated erythrocyte mean corpuscular hemoglobin concentration measurement ( mass/volume) 30 g/dL 32-36 Automated erythrocyte distribution width ratio 14.0 % 10.0-14.5 Automated blood platelet count (count/volume) 283 10*3/uL 130-400 Automated blood platelet mean volume measurement 10.4 [foz_us] 7.4-10.4 Comprehensive metabolic panel - 09/12/18 05:00 Serum or plasma sodium measurement (moles/volume) 141 mmol/L 135-145 Serum or plasma potassium measurement (moles/volume) 4.4 mmol/L 3.6-5.0 Serum or plasma chloride measurement (moles/volume) 105 mmol/L 98-107 Carbon dioxide 27 mmol/L 21-32 Serum or plasma anion gap determination (moles/volume) 9 mmol/L 5-14 Serum or plasma urea nitrogen measurement (mass/volume) 19 mg/dL 7-18 Serum or plasma creatinine measurement (mass/volume) 0.77 mg/dL 0.60-1.30 Serum or plasma urea nitrogen/creatinine mass ratio 25 NRG Serum or plasma creatinine measurement with calculation of estimated glomerular filtration rate > NRG Serum or plasma glucose measurement (mass/volume) 111 mg/dL 70-105 Serum or plasma calcium measurement (mass/volume) 9.7 mg/dL 8.5-10.1 Serum or plasma total bilirubin measurement (mass/volume) 0.3 mg/dL 0.1-1.0 Serum or plasma alkaline phosphatase measurement (enzymatic activity/volume) 82 U/L 40-136 Serum or plasma aspartate aminotransferase measurement (enzymatic activity/ volume) 20 U/L 5-34 Serum or plasma alanine aminotransferase measurement (enzymatic activity/volume ) 17 U/L 0-55 Serum or plasma protein measurement (mass/volume) 6.5 g/dL 6.4-8.2 Serum or plasma albumin measurement (mass/volume) 3.3 g/dL 3.2-4.5 CALCIUM CORRECTED 10.3 mg/dL 8.5-10.1 Serum or plasma phosphate measurement (mass/volume) - 09/12/18 05:00 Serum or plasma phosphate measurement (mass/volume) 4.0 mg/dL 2.3-4.7 Magnesium - 09/12/18 05:00 Magnesium 2.3 mg/dL 1.8-2.4 Capillary blood glucose measurement by glucometer (mass/volume) - 09/12/18 05: 05 Capillary blood glucose measurement by glucometer (mass/volume) 106 mg/dL 70-110 Capillary blood glucose measurement by glucometer (mass/volume) - 09/13/18 06: 15 Capillary blood glucose measurement by glucometer (mass/volume) 134 mg/dL 70-110 Capillary blood glucose measurement by glucometer (mass/volume) - 09/14/18 05: 15 Capillary blood glucose measurement by glucometer (mass/volume) 115 mg/dL 70-110 Automated blood complete blood count (hemogram) panel - 09/14/18 06:46 Blood leukocytes automated count (number/volume) 6.2 10*3/uL 4.3-11.0 Blood erythrocytes automated count (number/volume) 3.99 10*6/uL 4.35-5.85 Venous blood hemoglobin measurement (mass/volume) 10.1 g/dL 11.5-16.0 Blood hematocrit (volume fraction) 34 % 35-52 Automated erythrocyte mean corpuscular volume 85 [foz_us] 80-99 Automated erythrocyte mean corpuscular hemoglobin (mass per erythrocyte) 25 pg 25-34 Automated erythrocyte mean corpuscular hemoglobin concentration measurement ( mass/volume) 30 g/dL 32-36 Automated erythrocyte distribution width ratio 14.3 % 10.0-14.5 Automated blood platelet count (count/volume) 301 10*3/uL 130-400 Automated blood platelet mean volume measurement 10.9 [foz_us] 7.4-10.4 Capillary blood glucose measurement by glucometer (mass/volume) - 09/15/18 05: 21 Capillary blood glucose measurement by glucometer (mass/volume) 119 mg/dL 70-110 Capillary blood glucose measurement by glucometer (mass/volume) - 09/16/18 05: 55 Capillary blood glucose measurement by glucometer (mass/volume) 118 mg/dL 70-110 Comprehensive metabolic panel - 09/16/18 06:10 Serum or plasma sodium measurement (moles/volume) 143 mmol/L 135-145 Serum or plasma potassium measurement (moles/volume) 4.1 mmol/L 3.6-5.0 Serum or plasma chloride measurement (moles/volume) 107 mmol/L 98-107 Carbon dioxide 27 mmol/L 21-32 Serum or plasma anion gap determination (moles/volume) 9 mmol/L 5-14 Serum or plasma urea nitrogen measurement (mass/volume) 20 mg/dL 7-18 Serum or plasma creatinine measurement (mass/volume) 0.75 mg/dL 0.60-1.30 Serum or plasma urea nitrogen/creatinine mass ratio 27 NRG Serum or plasma creatinine measurement with calculation of estimated glomerular filtration rate > NRG Serum or plasma glucose measurement (mass/volume) 108 mg/dL 70-105 Serum or plasma calcium measurement (mass/volume) 9.5 mg/dL 8.5-10.1 Serum or plasma total bilirubin measurement (mass/volume) 0.3 mg/dL 0.1-1.0 Serum or plasma alkaline phosphatase measurement (enzymatic activity/volume) 96 U/L 40-136 Serum or plasma aspartate aminotransferase measurement (enzymatic activity/ volume) 22 U/L 5-34 Serum or plasma alanine aminotransferase measurement (enzymatic activity/volume ) 17 U/L 0-55 Serum or plasma protein measurement (mass/volume) 6.7 g/dL 6.4-8.2 Serum or plasma albumin measurement (mass/volume) 3.4 g/dL 3.2-4.5 CALCIUM CORRECTED 10.0 mg/dL 8.5-10.1 Serum or plasma phosphate measurement (mass/volume) - 09/16/18 06:10 Serum or plasma phosphate measurement (mass/volume) 4.0 mg/dL 2.3-4.7 Magnesium - 09/16/18 06:10 Magnesium 2.2 mg/dL 1.8-2.4 Capillary blood glucose measurement by glucometer (mass/volume) - 09/17/18 05: 20 Capillary blood glucose measurement by glucometer (mass/volume) 123 mg/dL 70-110 Capillary blood glucose measurement by glucometer (mass/volume) - 09/18/18 06: 03 Capillary blood glucose measurement by glucometer (mass/volume) 122 mg/dL 70-110 Encounters ACCT No. Visit Date/Time Discharge Status Pt. Type Provider Facility Loc./Unit Complaint [id number] 11/01/2018 09:26:26 11/01/2018 23:59:59 CLS Outpatient DaniellalingSean magana [id number] 10/16/2018 14:31:29 10/16/2018 23:59:59 CLS Outpatient Sean Marie [id number] 09/27/2018 16:17:35 09/27/2018 23:59:59 CLS Outpatient Michelle Greco [id number] 08/13/2018 13:49:27 08/13/2018 23:59:59 CLS Outpatient Aurora Martin [id number] 08/12/2018 13:55:43 08/12/2018 23:59:59 CLS Outpatient Aurora Martin [id number] 07/20/2018 16:46:18 07/20/2018 23:59:59 CLS Outpatient Sean Marie [id number] 04/11/2018 13:52:57 04/11/2018 23:59:59 CLS Outpatient RicoFredis [id number] 03/29/2018 15:19:47 03/29/2018 23:59:59 CLS Outpatient Sean Marie [id number] 03/09/2018 09:51:30 03/09/2018 23:59:59 CLS Outpatient HetlingerSean [id number] 02/28/2018 08:52:38 02/28/2018 23:59:59 CLS Outpatient Rico Fredis [id number] 01/29/2018 17:36:47 01/29/2018 23:59:59 CLS Outpatient OelweinLaine [id number] 01/19/2018 11:26:07 01/19/2018 23:59:59 [id number] 10/27/2017 10:00:45 10/27/2017 23:59:59 CLS Outpatient Rico, Fredis [id number] 10/23/2017 09:29:56 10/23/2017 23:59:59 CLS Outpatient Frank Sean [id number] 09/20/2017 12:18:44 09/20/2017 23:59:59 CLS Outpatient Rico, Fredis [id number] 08/31/2017 15:49:06 08/31/2017 23:59:59 CLS Outpatient Rico, Fredis [id number] 08/09/2017 10:08:51 08/09/2017 23:59:59 CLS Outpatient Hetlinger, Sean [id number] 07/07/2017 09:35:41 07/07/2017 23:59:59 CLS Outpatient Hetlinger, Sean [id number] 06/16/2017 11:07:00 06/16/2017 23:59:59 CLS Outpatient Hetlinger, Sean [id number] 05/15/2017 09:46:10 05/15/2017 23:59:59 CLS Outpatient HetlingerSean [id number] 04/23/2017 14:14:47 04/23/2017 23:59:59 CLS Outpatient Aurora Martin [id number] 04/14/2017 09:19:24 04/14/2017 23:59:59 CLS Outpatient HetlingerSean [id number] 03/20/2017 15:22:17 03/20/2017 23:59:59 CLS Outpatient HetlingerSean [id number] 03/03/2017 17:59:33 03/03/2017 23:59:59 CLS Outpatient Aurora Martin [id number] 01/09/2017 14:30:18 01/09/2017 23:59:59 CLS Outpatient Hetlinger, Sean [id number] 01/02/2017 14:28:33 01/02/2017 23:59:59 CLS Outpatient HetlingerSean [id number] 12/27/2016 15:56:43 12/27/2016 23:59:59 CLS Outpatient HetlingerSean [id number] 2016 09:39:41 2016 23:59:59 CLS Outpatient Hetlinger, Sean [id number] 09/19/2016 11:06:13 09/19/2016 23:59:59 CLS Outpatient Hetlinger, Sean [id number] 07/01/2016 09:18:55 07/01/2016 23:59:59 CLS Outpatient Hetlinger, Sean [id number] 06/17/2016 11:21:34 06/17/2016 23:59:59 CLS Outpatient Hetlinger, Sean [id number] 06/02/2016 11:45:43 06/02/2016 23:59:59 CLS Outpatient Michelle Greco [id number] 05/20/2016 10:07:14 05/20/2016 23:59:59 CLS Outpatient Hetlinger, Sean [id number] 04/01/2016 10:43:20 04/01/2016 23:59:59 CLS Outpatient Hetlinger, Sean [id number] 12/09/2015 18:02:06 12/09/2015 23:59:59 CLS Outpatient Miguel A Munoz [id number] 11/17/2015 15:42:52 11/17/2015 23:59:59 CLS Outpatient Hetlinger, Sean [id number] 11/03/2015 09:17:08 11/03/2015 23:59:59 CLS Outpatient Hetlinger, Sean [id number] 10/09/2015 09:43:07 10/09/2015 23:59:59 CLS Outpatient Hetlinger, Sean [id number] 08/31/2015 15:29:16 08/31/2015 23:59:59 CLS Outpatient Hetlinger, Sean [id number] 08/25/2015 11:01:57 08/25/2015 23:59:59 CLS Outpatient Hetlinger, Sean [id number] 06/05/2015 10:21:13 06/05/2015 23:59:59 CLS Outpatient HetlingerSean [id number] 06/01/2015 07:40:23 06/01/2015 23:59:59 CLS Outpatient Michelle Greco Sean [id number] 05/11/2015 22:33:28 05/11/2015 23:59:59 CLS Outpatient Amaris Gentile [id number] 05/11/2015 22:31:59 05/11/2015 23:59:59 CLS Outpatient Kiarra Ramos [id number] 05/11/2015 22:07:32 05/11/2015 23:59:59 CLS Outpatient HetlingerSean [id number] 05/11/2015 22:03:31 05/11/2015 23:59:59 CLS Outpatient HetlingerSean [id number] 05/11/2015 21:59:14 05/11/2015 23:59:59 CLS Outpatient HetlingerSean [id number] 05/11/2015 21:28:40 05/11/2015 23:59:59 CLS Outpatient HetlingerSean [id number] 01/26/2015 16:10:40 01/26/2015 23:59:59 CLS Outpatient Leena Haddad Nelida [id number] 01/12/2015 09:52:09 01/12/2015 23:59:59 CLS Outpatient HetlingerSean [id number] 10/22/2014 14:36:19 10/22/2014 23:59:59 CLS Outpatient Miguel A Munoz [id number] 08/22/2014 09:31:15 08/22/2014 23:59:59 CLS Outpatient Sean Marie [id number] 08/01/2014 10:40:38 08/01/2014 23:59:59 CLS Outpatient Sean Marie [id number] 06/09/2014 15:49:13 06/09/2014 23:59:59 CLS Outpatient Kiarra Ramos [id number] 03/14/2014 09:18:53 03/14/2014 23:59:59 CLS Outpatient Leena Haddad [id number] 02/27/2014 14:57:30 02/27/2014 23:59:59 CLS Outpatient Leena Haddad [id number] 12/02/2013 10:40:20 12/02/2013 23:59:59 CLS Outpatient Sean Marie [id number] 11/25/2013 10:02:26 11/25/2013 23:59:59 CLS Outpatient Sean Marie [id number] 11/14/2013 15:16:36 11/14/2013 23:59:59 CLS Outpatient Kiarra Ramos [id number] 11/01/2018 15:16:55 Document Registration [id number] 11/01/2018 15:10:29 Document Registration [id number] 11/01/2018 11:41:00 Document Registration [id number] 11/01/2018 09:18:02 Document Registration [id number] 08/01/2018 12:07:55 Document Registration [id number] 07/25/2018 10:28:51 Document Registration [id number] 07/20/2018 08:59:49 Document Registration [id number] 05/22/2018 15:27:56 Document Registration [id number] 04/30/2018 10:19:47 Document Registration [id number] 03/02/2018 08:28:44 Document Registration [id number] 01/19/2018 11:47:58 Document Registration [id number] 12/04/2017 22:01:23 Document Registration [id number] 11/17/2017 14:30:23 Document Registration [id number] 11/17/2017 14:20:24 Document Registration [id number] 11/13/2017 16:14:58 Document Registration [id number] 10/17/2017 14:41:57 Document Registration [id number] 09/22/2017 16:12:37 Document Registration [id number] 09/22/2017 16:11:47 Document Registration [id number] 09/01/2017 08:49:17 Document Registration [id number] 06/16/2017 11:00:02 Document Registration [id number] 05/18/2017 13:38:17 Document Registration [id number] 05/17/2017 08:52:26 Document Registration [id number] 09/06/2018 13:35:00 09/18/2018 17:00:00 DIS Inpatient MATILDE ADAMS MD [facility] 4TH POST OP GASTRECTOMY LEAK [id number] 09/06/2018 11:44:00 09/06/2018 23:59:59 CLS Outpatient MATILDE ADAMS MD [facility] RAD ABD PAIN S/P SLEEVE GASTRECTOMY [id number] 08/31/2018 22:27:00 09/01/2018 04:30:00 DIS Emergency DEMETRIUS LOPEZ MD [facility] ER TEMP; BARIATRIC SURGERY COMPLICATIONS [id number] 08/30/2018 11:18:00 08/31/2018 15:50:00 DIS Outpatient MATILDE ADAMS MD [facility] 4TH MORBID OBESITY [id number] 08/27/2018 12:07:00 08/27/2018 15:47:00 DIS Outpatient MATILDE ADAMS MD [facility] PREOP MORBID OBESITY [id number] 08/15/2018 08:11:00 08/15/2018 23:59:59 CLS Outpatient MATILDE ADAMS MD [facility] RAD REFLUX [id number] 07/31/2018 10:14:00 07/31/2018 23:59:59 CLS Outpatient AUDREY AYOUB APRN [facility] RAD J44.9,G47.00 [id number] 07/18/2018 11:37:00 07/18/2018 14:50:00 DIS Outpatient MATILDE ADAMS MD [facility] ENDO REFLUX [id number] 07/17/2018 14:37:00 07/17/2018 15:09:00 DIS Outpatient MATILDE ADAMS MD [facility] PREOP EGD [id number] 03/08/2018 08:15:00 03/08/2018 23:59:59 CLS Preadmit MEGA, AUDREY E PIZZA DELIVERY [facility] PULM F41.9 ANXIETY J45.909 ASTHMA [id number] 12/19/2017 13:00:00 03/07/2018 00:01:00 DIS Outpatient MEGA, AUDREY E PIZZA DELIVERY [facility] PULM F41.9 ANXIETY J45.909 ASTHMA [id number] 12/18/2017 11:38:00 12/18/2017 23:59:59 CLS Outpatient MEGA, AUDREY E PIZZA DELIVERY [facility] RT RESTRICITVE LUNG DISEASE,ASTHMA [id number] 12/12/2017 15:37:00 12/12/2017 23:59:59 CLS Outpatient MEGA, AUDREY E PIZZA DELIVERY [facility] PULM J45.909 [id number] 12/05/2017 13:54:00 12/05/2017 23:59:59 CLS Outpatient MEGA, AUDREY E PIZZA DELIVERY [facility] RAD J45.909,J44.9 [id number] 11/30/2017 13:00:00 12/03/2017 00:01:00 DIS Outpatient MEGA, AUDREY E PIZZA DELIVERY [facility] PUL F41.9 ANXIETY J45.909 ASTHMA [id number] 10/19/2017 15:24:00 10/19/2017 23:59:59 CLS Outpatient MEGA, AUDREY E PIZZA DELIVERY [facility] LAB J44.9 R09.02 I26.99 J98.4 [id number] 06/30/2017 08:37:00 06/30/2017 23:59:59 CLS Outpatient MEGA, AUDREY E PIZZA DELIVERY [facility] LAB J44.9 [id number] 06/29/2017 14:43:00 06/29/2017 23:59:59 CLS Outpatient WEN POOL DO [facility] RAD COPD,ASTHMA [id number] 06/14/2017 15:28:00 06/14/2017 23:59:59 CLS Outpatient AUDREY AYOUB APRN [facility] J45.909 [facility] [id number] 01/22/2018 11:05:00 Document Registration [id number] 12/03/2018 07:49:00 12/03/2018 23:59:59 CLS Outpatient Jhonny, [place] [id number] 08/27/2018 14:39:00 08/27/2018 23:59:59 CLS Outpatient Jhonny, [place] [id number] 08/06/2018 15:45:00 08/06/2018 23:59:59 CLS Outpatient Jhonny, [place] [id number] 06/26/2018 14:46:00 06/26/2018 23:59:59 CLS Outpatient Jhonny, [place] [id number] 05/02/2018 11:05:00 05/02/2018 23:59:59 CLS Outpatient Jhonny, [place] [id number] 04/30/2018 08:38:00 04/30/2018 23:59:59 CLS Outpatient Jhonny, [place] [id number] 04/16/2018 12:00:00 04/16/2018 23:59:59 CLS Outpatient Jhonny, [place] [id number] 04/03/2018 13:30:00 04/03/2018 23:59:59 CLS Outpatient Jhonny, [place] [id number] 08/04/2018 14:05:00 Document Registration
[2018-12-18] MEDS ORDERED: LACTATED RINGERS 1,000 ML IV SCH (18:45)
[2018-12-18 18:50] LABS: BAND NEUTROPHILS 5 %; EOSINOPHILS % (MANUAL) 1 %; LYMPHOCYTES % (MANUAL) 13 %; MONOCYTES % (MANUAL) 18 %; NEUTROPHILS % (MANUAL) 49 %; REACTIVE LYMPHOCYTES 14 %
[2018-12-18 18:51] LABS: RBC MORPH NORMAL
--- NOTE | 2018-12-18 19:07 | Diagnostic Imaging Report ---
PROCEDURE: CT abdomen and pelvis without contrast. TECHNIQUE: Multiple contiguous axial images were obtained through the abdomen and pelvis without the use of intravenous contrast. INDICATION: Upper abdominal pain with nausea, vomiting and diarrhea. COMPARISON: Comparison is made with prior CT from 09/01/2018. FINDINGS: Imaging through the lung bases does show some minimal infiltrate or atelectasis in the posterior medial right lower lobe as well some scarring or atelectasis in the lingula. No discrete liver mass is seen. Gallbladder appears to be surgically absent. No biliary duct dilatation is seen. Pancreas and spleen are unremarkable. No adrenal mass is seen. Cortical lesion extends exophytically from the left kidney, appears to be stable and likely a cyst. No calculi or hydronephrosis is identified. Aorta is non-aneurysmal. Postsurgical changes to the stomach are again noted. There are some dilated and fluid filled small bowel loops within the central abdomen. There appears to be a transition involving small bowel loops in the anterior abdomen just deep to the abdominal wall. This could be site of the obstruction. No free fluid or fluid collection is seen. There is no free air. The bladder is unremarkable. IMPRESSION: Moderate fluid-filled distention of small bowel loops in the central abdomen with apparent transition in the anterior midline of the abdomen, perhaps the source of level of obstruction. No abscess or free air is detected. Dictated by: Dictated on workstation # [id number]
--- NOTE | 2018-12-18 21:30 | NUR ---
VERONICA HERRERA admitted to room 405-1, with an admitting diagnosis of n/v/d, ARF, on 12/18/18 from ed via [facility], accompanied by ed staff & family.VERONICA HERRERA introduced to surroundings, call light, bed controls, phone, TV, temperature control, lights, meal times, smoking policy, visitor policy, side rail policy, bathrooms and showers. Patient Rights given to patient in the handbook. VERONICA HERRERA verbalizes understanding that [facility] is not responsible for the loss or damage to any personal effects or valuables that are kept in the patients possession during their hospitalization. The patient's plan of care was discussed with the patient, she agrees to the plan & denies any questions or concerns. VERONICA HERRERA verbalizes understanding of Interdisciplinary Patient Education.
[2018-12-18 21:35] VITALS: BP 128/58
[2018-12-18] MEDS ORDERED: PROMETHAZINE INJ 25 MG/ML (PHENERGAN) AMP IV PRN (22:30)
[2018-12-18] MEDS ORDERED: ONDANSETRON 4 MG/2 ML (SDV) Z0FRAN IV PRN (22:30)
[2018-12-18] MEDS ORDERED: CATHETER FLUSH 10 ML SYR IV PRN (22:30)
--- OUTSIDE RECORDS SUMMARY | 2018-12-18 22:36 | XMS REPORT | Continuity of Care Document ---
Author Author [facility] Address Unknown Phone Unavailable Allergies Active Description Code Type Severity Reaction Onset Reported/Identified Relationship to Patient Clinical Status Yes ALBUTEROL [id number] DRUG N/A TACHYCARDIA Yes PERCOCET [id number] BRANDNAME N/ A ITCHING Yes No Allergy Information Available [id number] Drug Allergy Unknown N/A 2016 Yes acetaminophen [id number] Drug Allergy Unknown N/A 07/18/2018 Yes albuterol [id number] Drug Allergy Unknown tachycardia 07/18/2018 Yes estrogens, conjugated [id number] Drug Allergy Unknown N/A 07/18/2018 Yes oxycodone [id number] Drug Allergy Unknown N/A 07/18/2018 Yes pregabalin [id number] Drug Allergy Unknown N/A 07/18/2018 Yes albuterol [id number] Drug Allergy Severe tachycardia 08/27/2018 Yes estrogens, conjugated [id number] Drug Allergy Severe PE 08/27/2018 Yes pregabalin [id number] Drug Allergy Moderate VISION PROBLEMS 08/27/2018 Yes acetaminophen [id number] Drug Allergy Mild ITCHING 08/27/2018 Yes oxycodone [id number] Drug Allergy Mild ITCHING 08/27/2018 Yes oxycodone [id number] Drug Allergy Mild ITCHING, Pt dede 09/10/2018 [...] 10/17/2017 P R300 Dysuria 10/19/2017 AUDREY AYOUB ASSISTANT GUEST SERVICES MANAGER Ot G47.30 SLEEP APNEA, UNSPECIFIED 10/19/2017 AUDREY AYOUB ASSISTANT GUEST SERVICES MANAGER Ot J42 UNSPECIFIED CHRONIC BRONCHITIS 10/19/2017 AUDREY AYOUB APRN Ot J44.9 CHRONIC OBSTRUCTIVE PULMONARY DISEASE, U 10/19/2017 AUDREY AYOUB APRN Ot J45.909 UNSPECIFIED ASTHMA, UNCOMPLICATED 10/19/2017 AUDREY AYOUB APRN Ot K76.0 FATTY (CHANGE OF) LIVER, NOT ELSEWHERE C 10/19/2017 AUDREY AYOUB ASSISTANT GUEST SERVICES MANAGER Ot R16.2 HEPATOMEGALY WITH SPLENOMEGALY, NOT ELSE 10/19/2017 AUDREY AYOUB ASSISTANT GUEST SERVICES MANAGER Ot Z86.11 PERSONAL HISTORY OF TUBERCULOSIS 10/19/2017 [...] OBSTRUCTIVE PULMONARY DISEASE, U 10/19/2017 AUDREY AYOUB ASSISTANT GUEST SERVICES MANAGER Ot E07.9 DISORDER OF THYROID, UNSPECIFIED 10/19/2017 AUDREY AYOUB ASSISTANT GUEST SERVICES MANAGER Ot F41.9 ANXIETY DISORDER, UNSPECIFIED 10/19/2017 AUDREY AYOUB ASSISTANT GUEST SERVICES MANAGER Ot G47.30 SLEEP APNEA, UNSPECIFIED 10/19/2017 AUDREY AYOUB ASSISTANT GUEST SERVICES MANAGER Ot J44.9 CHRONIC OBSTRUCTIVE PULMONARY DISEASE, U 10/19/2017 AUDREY AYOUB ASSISTANT GUEST SERVICES MANAGER Ot J45.909 UNSPECIFIED ASTHMA, UNCOMPLICATED 10/19/2017 AUDREY AYOUB ASSISTANT GUEST SERVICES MANAGER Ot J98.4 OTHER DISORDERS OF LUNG 10/19/2017 MEGA AUDREY Rosy ASSISTANT GUEST SERVICES MANAGER Ot R09.02 HYPOXEMIA 10/19/2017 MEGA AUDREY Rosy ASSISTANT GUEST SERVICES MANAGER Ot R94.2 ABNORMAL RESULTS OF PULMONARY FUNCTION S 10/20/2017 MEGA AUDREY Rosy ASSISTANT GUEST SERVICES MANAGER Ot I26.99 OTHER PULMONARY EMBOLISM WITHOUT ACUTE C 10/20/2017 AUDREY AYOUB ASSISTANT GUEST SERVICES MANAGER Ot J44.9 CHRONIC OBSTRUCTIVE PULMONARY DISEASE, U 10/20/2017 IESHA AYOUBINE Rosy ASSISTANT GUEST SERVICES MANAGER Ot J98.4 OTHER DISORDERS OF LUNG 10/20/2017 MEGA AUDREY E ASSISTANT GUEST SERVICES MANAGER Ot R09.02 HYPOXEMIA 10/25/2017 IESHA AYOUBINE E ASSISTANT GUEST SERVICES MANAGER Ot E07.9 DISORDER OF THYROID, UNSPECIFIED 10/25/2017 IESHA AYOUBINE Rosy ASSISTANT GUEST SERVICES MANAGER Ot F41.9 ANXIETY DISORDER, UNSPECIFIED 10/25/2017 IESHA AYOUBINE Rosy ASSISTANT GUEST SERVICES MANAGER Ot G47.30 SLEEP APNEA, UNSPECIFIED 10/25/2017 AUDREY AYOUB ASSISTANT GUEST SERVICES MANAGER Ot J44.9 CHRONIC OBSTRUCTIVE PULMONARY DISEASE, U 10/25/2017 IESHA AYOUBINE Rosy ASSISTANT GUEST SERVICES MANAGER Ot J45.909 UNSPECIFIED ASTHMA, UNCOMPLICATED 10/25/2017 IESHA AYOUBINE Rosy ASSISTANT GUEST SERVICES MANAGER Ot J98.4 OTHER DISORDERS OF LUNG 10/25/2017 IESHA AYOUBINE Rosy ASSISTANT GUEST SERVICES MANAGER Ot R09.02 HYPOXEMIA 10/25/2017 IESHA AYOUBINE Rosy ASSISTANT GUEST SERVICES MANAGER Ot R94.2 ABNORMAL RESULTS OF PULMONARY FUNCTION S 11/02/2017 AUDREY AYOUB ASSISTANT GUEST SERVICES MANAGER Ot I26.99 OTHER PULMONARY EMBOLISM WITHOUT ACUTE C 11/02/2017 AUDREY AYOUB ASSISTANT GUEST SERVICES MANAGER Ot J44.9 CHRONIC OBSTRUCTIVE PULMONARY DISEASE, U 11/02/2017 IESHA AYOUBINE Rosy ASSISTANT GUEST SERVICES MANAGER Ot J98.4 OTHER DISORDERS OF LUNG 11/02/2017 IESHA AYOUBINE Rosy ASSISTANT GUEST SERVICES MANAGER Ot R09.02 HYPOXEMIA 11/23/2017 IESHA AYOUBINE E ASSISTANT GUEST SERVICES MANAGER Ot I26.99 OTHER PULMONARY EMBOLISM WITHOUT ACUTE C 11/23/2017 IESHA AYOUBINE Rosy ASSISTANT GUEST SERVICES MANAGER Ot J44.9 CHRONIC OBSTRUCTIVE PULMONARY DISEASE, U 11/23/2017 IESHA AYOUBINE Rosy ASSISTANT GUEST SERVICES MANAGER Ot J98.4 OTHER DISORDERS OF LUNG 11/23/2017 IESHA AYOUBINE Rosy ASSISTANT GUEST SERVICES MANAGER Ot R09.02 HYPOXEMIA 11/23/2017 AUDREY AYOUB ASSISTANT GUEST SERVICES MANAGER Ot E07.9 DISORDER OF THYROID, UNSPECIFIED 11/23/2017 IESHA AYOUBINE Rosy ASSISTANT GUEST SERVICES MANAGER Ot F41.9 ANXIETY DISORDER, UNSPECIFIED 11/23/2017 IESHA AYOUBINE Rosy ASSISTANT GUEST SERVICES MANAGER Ot G47.30 SLEEP APNEA, UNSPECIFIED 11/23/2017 AUDREY AYOUB ASSISTANT GUEST SERVICES MANAGER Ot J44.9 CHRONIC OBSTRUCTIVE PULMONARY DISEASE, U 11/23/2017 IESHA AYOUBINE Rosy ASSISTANT GUEST SERVICES MANAGER Ot J45.909 UNSPECIFIED ASTHMA, UNCOMPLICATED 11/23/2017 IESHA AYOUBINE E ASSISTANT GUEST SERVICES MANAGER Ot J98.4 OTHER DISORDERS OF LUNG 11/23/2017 MEGAIESHA MAGANAINE Rosy ASSISTANT GUEST SERVICES MANAGER Ot R09.02 HYPOXEMIA 11/23/2017 IESHA AYOUBINE Rosy ASSISTANT GUEST SERVICES MANAGER Ot R94.2 ABNORMAL RESULTS OF PULMONARY FUNCTION S 11/23/2017 AUDREY AYOUB ASSISTANT GUEST SERVICES MANAGER Ot I26.99 OTHER PULMONARY EMBOLISM WITHOUT ACUTE C 11/23/2017 AUDREY AYOUB ASSISTANT GUEST SERVICES MANAGER Ot J44.9 CHRONIC OBSTRUCTIVE PULMONARY DISEASE, U 11/23/2017 AUDREY AYOUB ASSISTANT GUEST SERVICES MANAGER Ot J98.4 OTHER DISORDERS OF LUNG 11/23/2017 AUDREY AYOUB ASSISTANT GUEST SERVICES MANAGER Ot R09.02 HYPOXEMIA 12/03/2017 AUDREY AYOUB ASSISTANT GUEST SERVICES MANAGER Ot E07.9 DISORDER OF THYROID, UNSPECIFIED 12/03/2017 AUDREY AYOUB ASSISTANT GUEST SERVICES MANAGER Ot F41.9 ANXIETY DISORDER, UNSPECIFIED 12/03/2017 IESHA AYOUBINE Rosy ASSISTANT GUEST SERVICES MANAGER Ot G47.30 SLEEP APNEA, UNSPECIFIED 12/03/2017 AUDREY AYOUB ASSISTANT GUEST SERVICES MANAGER Ot J44.9 CHRONIC OBSTRUCTIVE PULMONARY DISEASE, U 12/03/2017 IESHA AYOUBINE Rosy ASSISTANT GUEST SERVICES MANAGER Ot J45.909 UNSPECIFIED ASTHMA, UNCOMPLICATED 12/03/2017 IESHA AYOUBINE Rosy ASSISTANT GUEST SERVICES MANAGER Ot J98.4 OTHER DISORDERS OF LUNG 12/03/2017 IESHA AYOUBINE Rosy ASSISTANT GUEST SERVICES MANAGER Ot R09.02 HYPOXEMIA 12/03/2017 IESHA AYOUBINE E ASSISTANT GUEST SERVICES MANAGER Ot R94.2 ABNORMAL RESULTS OF PULMONARY FUNCTION S 12/05/2017 IESHA AYOUBINE Rosy ASSISTANT GUEST SERVICES MANAGER Ot E07.9 DISORDER OF THYROID, UNSPECIFIED 12/05/2017 IESHA AYOUBINE Rosy ASSISTANT GUEST SERVICES MANAGER Ot F41.9 ANXIETY DISORDER, UNSPECIFIED 12/05/2017 AUDREY AYOUB ASSISTANT GUEST SERVICES MANAGER Ot G47.30 SLEEP APNEA, UNSPECIFIED 12/05/2017 AUDREY AYOUB ASSISTANT GUEST SERVICES MANAGER Ot J44.9 CHRONIC OBSTRUCTIVE PULMONARY DISEASE, U 12/05/2017 AUDREY AYOUB ASSISTANT GUEST SERVICES MANAGER Ot J45.909 UNSPECIFIED ASTHMA, UNCOMPLICATED 12/05/2017 AUDREY AYOUB ASSISTANT GUEST SERVICES MANAGER Ot J98.4 OTHER DISORDERS OF LUNG 12/05/2017 AUDREY AYOUB ASSISTANT GUEST SERVICES MANAGER Ot R09.02 HYPOXEMIA 12/05/2017 AUDREY AYOUB ASSISTANT GUEST SERVICES MANAGER Ot R94.2 ABNORMAL RESULTS OF PULMONARY FUNCTION S 12/06/2017 AUDREY AYOUB ASSISTANT GUEST SERVICES MANAGER Ot E07.9 DISORDER OF THYROID, UNSPECIFIED 12/06/2017 AUDREY AYOUB ASSISTANT GUEST SERVICES MANAGER Ot F41.9 ANXIETY DISORDER, UNSPECIFIED 12/06/2017 AUDREY AYOUB ASSISTANT GUEST SERVICES MANAGER Ot G47.30 SLEEP APNEA, UNSPECIFIED 12/06/2017 AUDREY AYOUB ASSISTANT GUEST SERVICES MANAGER Ot J44.9 CHRONIC OBSTRUCTIVE PULMONARY DISEASE, U 12/06/2017 AUDREY AYOUB ASSISTANT GUEST SERVICES MANAGER Ot J45.909 UNSPECIFIED ASTHMA, UNCOMPLICATED 12/06/2017 AUDREY AYOUB ASSISTANT GUEST SERVICES MANAGER Ot J98.4 OTHER DISORDERS OF LUNG 12/06/2017 AUDREY AYOUB ASSISTANT GUEST SERVICES MANAGER Ot R09.02 HYPOXEMIA 12/06/2017 AUDREY AYOUB ASSISTANT GUEST SERVICES MANAGER Ot R94.2 ABNORMAL RESULTS OF PULMONARY FUNCTION S 12/06/2017 AUDREY AYOUB ASSISTANT GUEST SERVICES MANAGER Ot E04.1 NONTOXIC SINGLE THYROID NODULE 12/06/2017 AUDREY AYOUB ASSISTANT GUEST SERVICES MANAGER Ot F41.9 ANXIETY DISORDER, UNSPECIFIED 12/06/2017 AUDREY AYOUB ASSISTANT GUEST SERVICES MANAGER Ot I26.99 OTHER PULMONARY EMBOLISM WITHOUT ACUTE C 12/06/2017 AUDREY AYOUB ASSISTANT GUEST SERVICES MANAGER Ot J44.9 CHRONIC OBSTRUCTIVE PULMONARY DISEASE, U 12/06/2017 IESHA AYOUBINE Rosy ASSISTANT GUEST SERVICES MANAGER Ot J98.4 OTHER DISORDERS OF LUNG 12/08/2017 AUDREY AYOUB ASSISTANT GUEST SERVICES MANAGER Ot E07.9 DISORDER OF THYROID, UNSPECIFIED 12/08/2017 AUDREY AYOUB ASSISTANT GUEST SERVICES MANAGER Ot F41.9 ANXIETY DISORDER, UNSPECIFIED 12/08/2017 AUDREY AYOUB ASSISTANT GUEST SERVICES MANAGER Ot G47.30 SLEEP APNEA, UNSPECIFIED 12/08/2017 AUDREY AYOUB ASSISTANT GUEST SERVICES MANAGER Ot J44.9 CHRONIC OBSTRUCTIVE PULMONARY DISEASE, U 12/08/2017 IESHA AYOUBINE Rosy ASSISTANT GUEST SERVICES MANAGER Ot J45.909 UNSPECIFIED ASTHMA, UNCOMPLICATED 12/08/2017 MEGAIESHA MAGANAINE E ASSISTANT GUEST SERVICES MANAGER Ot J98.4 OTHER DISORDERS OF LUNG 12/08/2017 IESHA AYOUBINE E ASSISTANT GUEST SERVICES MANAGER Ot R09.02 HYPOXEMIA 12/08/2017 IESHA AYOUBINE Rosy ASSISTANT GUEST SERVICES MANAGER Ot R94.2 ABNORMAL RESULTS OF PULMONARY FUNCTION S 12/09/2017 IESHA AYOUBINE Rosy ASSISTANT GUEST SERVICES MANAGER Ot E07.9 DISORDER OF THYROID, UNSPECIFIED 12/09/2017 IESHA AYOUBINE Rosy ASSISTANT GUEST SERVICES MANAGER Ot F41.9 ANXIETY DISORDER, UNSPECIFIED 12/09/2017 AUDREY AYOUB ASSISTANT GUEST SERVICES MANAGER Ot G47.30 SLEEP APNEA, UNSPECIFIED 12/09/2017 AUDREY AYOUB ASSISTANT GUEST SERVICES MANAGER Ot J44.9 CHRONIC OBSTRUCTIVE PULMONARY DISEASE, U 12/09/2017 AUDREY AYOUB ASSISTANT GUEST SERVICES MANAGER Ot J45.909 UNSPECIFIED ASTHMA, UNCOMPLICATED 12/09/2017 IESHA AYOUBINE Rosy ASSISTANT GUEST SERVICES MANAGER Ot J98.4 OTHER DISORDERS OF LUNG 12/09/2017 AUDREY AYOUB ASSISTANT GUEST SERVICES MANAGER Ot R09.02 HYPOXEMIA 12/09/2017 IESHA AYOUBINE Rosy ASSISTANT GUEST SERVICES MANAGER Ot R94.2 ABNORMAL RESULTS OF PULMONARY FUNCTION S 12/11/2017 AUDREY AYOUB ASSISTANT GUEST SERVICES MANAGER Ot E04.1 NONTOXIC SINGLE THYROID NODULE 12/11/2017 AUDREY AYOUB ASSISTANT GUEST SERVICES MANAGER Ot F41.9 ANXIETY DISORDER, UNSPECIFIED 12/11/2017 AUDREY AYOUB ASSISTANT GUEST SERVICES MANAGER Ot I26.99 OTHER PULMONARY EMBOLISM WITHOUT ACUTE C 12/11/2017 IESHA AYOUBINE Rosy ASSISTANT GUEST SERVICES MANAGER Ot J44.9 CHRONIC OBSTRUCTIVE PULMONARY DISEASE, U 12/11/2017 IESHA AYOUBINE Rosy ASSISTANT GUEST SERVICES MANAGER Ot J98.4 OTHER DISORDERS OF LUNG 12/11/2017 AUDREY AYOUB ASSISTANT GUEST SERVICES MANAGER Ot I26.99 OTHER PULMONARY EMBOLISM WITHOUT ACUTE C 12/11/2017 AUDREY AYOUB ASSISTANT GUEST SERVICES MANAGER Ot J44.9 CHRONIC OBSTRUCTIVE PULMONARY DISEASE, U 12/11/2017 AUDREY AYOUB ASSISTANT GUEST SERVICES MANAGER Ot J98.4 OTHER DISORDERS OF LUNG 12/11/2017 AUDREY AYOUB ASSISTANT GUEST SERVICES MANAGER Ot R09.02 HYPOXEMIA 12/11/2017 AUDREY AYOUB ASSISTANT GUEST SERVICES MANAGER Ot G47.30 SLEEP APNEA, UNSPECIFIED 12/11/2017 AUDREY AYOUB ASSISTANT GUEST SERVICES MANAGER Ot J42 UNSPECIFIED CHRONIC BRONCHITIS 12/11/2017 AUDREY AYOUB ASSISTANT GUEST SERVICES MANAGER Ot J44.9 CHRONIC OBSTRUCTIVE PULMONARY DISEASE, U 12/11/2017 AUDREY AYOUB ASSISTANT GUEST SERVICES MANAGER Ot J45.909 UNSPECIFIED ASTHMA, UNCOMPLICATED 12/11/2017 AUDREY AYOUB ASSISTANT GUEST SERVICES MANAGER Ot K76.0 FATTY (CHANGE OF) LIVER, NOT ELSEWHERE C 12/11/2017 AUDREY AYOUB ASSISTANT GUEST SERVICES MANAGER Ot R16.2 HEPATOMEGALY WITH SPLENOMEGALY, NOT [...] OBSTRUCTIVE PULMONARY DISEASE, U 12/11/2017 AUDREY AYOUB ASSISTANT GUEST SERVICES MANAGER Ot E04.1 NONTOXIC SINGLE THYROID NODULE 12/11/2017 AUDREY AYOUB ASSISTANT GUEST SERVICES MANAGER Ot F41.9 ANXIETY DISORDER, UNSPECIFIED 12/11/2017 AUDREY AYOUB ASSISTANT GUEST SERVICES MANAGER Ot I26.99 OTHER PULMONARY EMBOLISM WITHOUT ACUTE C 12/11/2017 AUDREY AYOUB ASSISTANT GUEST SERVICES MANAGER Ot J44.9 CHRONIC OBSTRUCTIVE PULMONARY DISEASE, U 12/11/2017 AUDREY AYOUB ASSISTANT GUEST SERVICES MANAGER Ot J98.4 OTHER DISORDERS OF LUNG 12/11/2017 AUDREY AYOUB ASSISTANT GUEST SERVICES MANAGER Ot I26.99 OTHER PULMONARY EMBOLISM WITHOUT ACUTE C 12/11/2017 AUDREY AYOUB ASSISTANT GUEST SERVICES MANAGER Ot J44.9 CHRONIC OBSTRUCTIVE PULMONARY DISEASE, U 12/11/2017 AUDREY AYOUB ASSISTANT GUEST SERVICES MANAGER Ot J98.4 OTHER DISORDERS OF LUNG 12/11/2017 AUDREY AYOUB ASSISTANT GUEST SERVICES MANAGER Ot R09.02 HYPOXEMIA 12/11/2017 AUDREY AYOUB ASSISTANT GUEST SERVICES MANAGER Ot E07.9 DISORDER OF THYROID, UNSPECIFIED 12/11/2017 AUDREY AYOUB ASSISTANT GUEST SERVICES MANAGER Ot F41.9 ANXIETY DISORDER, UNSPECIFIED 12/11/2017 AUDREY AYOUB ASSISTANT GUEST SERVICES MANAGER Ot G47.30 SLEEP APNEA, UNSPECIFIED 12/11/2017 AUDREY AYOUB ASSISTANT GUEST SERVICES MANAGER Ot J44.9 CHRONIC OBSTRUCTIVE PULMONARY DISEASE, U 12/11/2017 AUDREY AYOUB ASSISTANT GUEST SERVICES MANAGER Ot J45.909 UNSPECIFIED ASTHMA, UNCOMPLICATED 12/11/2017 AUDREY AYOUB ASSISTANT GUEST SERVICES MANAGER Ot J98.4 OTHER DISORDERS OF LUNG 12/11/2017 AUDREY AYOUB ASSISTANT GUEST SERVICES MANAGER Ot R09.02 HYPOXEMIA 12/11/2017 AUDREY AYOUB ASSISTANT GUEST SERVICES MANAGER Ot R94.2 ABNORMAL RESULTS OF PULMONARY FUNCTION S 12/13/2017 AUDREY AYOUB ASSISTANT GUEST SERVICES MANAGER Ot J42 UNSPECIFIED CHRONIC BRONCHITIS 12/13/2017 AUDREY AYOUB ASSISTANT GUEST SERVICES MANAGER Ot J45.909 UNSPECIFIED ASTHMA, UNCOMPLICATED 12/13/2017 AUDREY AYOUB ASSISTANT GUEST SERVICES MANAGER Ot J98.4 OTHER DISORDERS OF LUNG 12/13/2017 AUDREY AYOUB ASSISTANT GUEST SERVICES MANAGER Ot R09.02 HYPOXEMIA 12/13/2017 AUDREY AYOUB ASSISTANT GUEST SERVICES MANAGER Ot R94.2 ABNORMAL RESULTS OF PULMONARY FUNCTION S 12/19/2017 AUDREY AYOUB ASSISTANT GUEST SERVICES MANAGER Ot J42 UNSPECIFIED CHRONIC BRONCHITIS 12/19/2017 AUDREY AYOUB ASSISTANT GUEST SERVICES MANAGER Ot J45.909 UNSPECIFIED ASTHMA, UNCOMPLICATED 12/19/2017 AUDREY AYOUB ASSISTANT GUEST SERVICES MANAGER Ot J98.4 OTHER DISORDERS OF LUNG 12/20/2017 AUDREY AYOUB ASSISTANT GUEST SERVICES MANAGER Ot E04.1 NONTOXIC SINGLE THYROID NODULE 12/20/2017 AUDREY AYOUB ASSISTANT GUEST SERVICES MANAGER Ot F41.9 ANXIETY DISORDER, UNSPECIFIED 12/20/2017 AUDREY AYOUB ASSISTANT GUEST SERVICES MANAGER Ot I26.99 OTHER PULMONARY EMBOLISM WITHOUT ACUTE C 12/20/2017 AUDREY AYOUB ASSISTANT GUEST SERVICES MANAGER Ot J44.9 CHRONIC OBSTRUCTIVE PULMONARY DISEASE, U 12/20/2017 AUDREY AYOUB ASSISTANT GUEST SERVICES MANAGER Ot J98.4 OTHER DISORDERS OF LUNG 12/27/2017 AUDREY AYOUB ASSISTANT GUEST SERVICES MANAGER Ot J42 UNSPECIFIED CHRONIC BRONCHITIS 12/27/2017 IESHA AYOUBINE E ASSISTANT GUEST SERVICES MANAGER Ot J45.909 UNSPECIFIED ASTHMA, UNCOMPLICATED 12/27/2017 IESHA AYOUBINE E ASSISTANT GUEST SERVICES MANAGER Ot J98.4 OTHER DISORDERS OF LUNG 12/27/2017 EISHA AYOUBINE E ASSISTANT GUEST SERVICES MANAGER Ot R09.02 HYPOXEMIA 12/27/2017 IESHA AYOUBINE E ASSISTANT GUEST SERVICES MANAGER Ot R94.2 ABNORMAL RESULTS OF PULMONARY FUNCTION S 01/03/2018 AUDREY AYOUB ASSISTANT GUEST SERVICES MANAGER Ot J42 UNSPECIFIED CHRONIC BRONCHITIS 01/03/2018 IESHA AYOUBINE Rosy ASSISTANT GUEST SERVICES MANAGER Ot J45.909 UNSPECIFIED ASTHMA, UNCOMPLICATED 01/03/2018 IESHA AYOUBINE Rosy ASSISTANT GUEST SERVICES MANAGER Ot J98.4 OTHER DISORDERS OF LUNG 03/07/2018 IESHA AYOUBINE Rosy ASSISTANT GUEST SERVICES MANAGER Ot E07.9 DISORDER OF THYROID, UNSPECIFIED 03/07/2018 IESHA AYOUBINE Rosy ASSISTANT GUEST SERVICES MANAGER Ot F41.9 ANXIETY DISORDER, UNSPECIFIED 03/07/2018 AUDREY AYOUB ASSISTANT GUEST SERVICES MANAGER Ot G47.30 SLEEP APNEA, UNSPECIFIED 03/07/2018 IESHA AYOUBINE E ASSISTANT GUEST SERVICES MANAGER Ot J44.9 CHRONIC OBSTRUCTIVE PULMONARY DISEASE, U 03/07/2018 IESHA AYOUBINE Rosy ASSISTANT GUEST SERVICES MANAGER Ot J45.909 UNSPECIFIED ASTHMA, UNCOMPLICATED 03/07/2018 IESHA AYOUBINE Rosy ASSISTANT GUEST SERVICES MANAGER Ot J98.4 OTHER DISORDERS OF LUNG 03/07/2018 AUDREY AYOUB ASSISTANT GUEST SERVICES MANAGER Ot R09.02 HYPOXEMIA 03/07/2018 AUDREY AYOUB ASSISTANT GUEST SERVICES MANAGER Ot R94.2 ABNORMAL RESULTS OF PULMONARY FUNCTION S 03/08/2018 AUDREY AYOUB ASSISTANT GUEST SERVICES MANAGER Ot E07.9 DISORDER OF THYROID, UNSPECIFIED 03/08/2018 IESHA AYOUBINE Rosy ASSISTANT GUEST SERVICES MANAGER Ot F41.9 ANXIETY DISORDER, UNSPECIFIED 03/08/2018 IESHA AYOUBINE Rosy ASSISTANT GUEST SERVICES MANAGER Ot G47.30 SLEEP APNEA, UNSPECIFIED 03/08/2018 IESHA AYOUBINE Rosy ASSISTANT GUEST SERVICES MANAGER Ot J44.9 CHRONIC OBSTRUCTIVE PULMONARY DISEASE, U 03/08/2018 IESHA AYOUBINE Rosy ASSISTANT GUEST SERVICES MANAGER Ot J45.909 UNSPECIFIED ASTHMA, UNCOMPLICATED 03/08/2018 IESHA AYOUBINE Rosy ASSISTANT GUEST SERVICES MANAGER Ot J98.4 OTHER DISORDERS OF LUNG 03/08/2018 IESHA AYOUBINE E ASSISTANT GUEST SERVICES MANAGER Ot R09.02 HYPOXEMIA 03/08/2018 MEGA, AUDREY E ASSISTANT GUEST SERVICES MANAGER Ot R94.2 ABNORMAL RESULTS OF PULMONARY FUNCTION S 04/03/2018 Carolina Barry W M79.7 Fibromyalgia 04/10/2018 Carolina Barry W M79.7 Fibromyalgia 04/10/2018 P M542 Cervicalgia 04/10/2018 S R51 Headache 07/17/2018 IESHA AYOUBINE E ASSISTANT GUEST SERVICES MANAGER Ot E07.9 DISORDER OF THYROID, UNSPECIFIED 07/17/2018 MEGAIESHA MAGANAINE E ASSISTANT GUEST SERVICES MANAGER Ot F41.9 ANXIETY DISORDER, UNSPECIFIED 07/17/2018 MEGA, AUDREY E ASSISTANT GUEST SERVICES MANAGER Ot G47.30 SLEEP APNEA, UNSPECIFIED 07/17/2018 MEGAIESHA MAGANAINE E ASSISTANT GUEST SERVICES MANAGER Ot J44.9 CHRONIC OBSTRUCTIVE PULMONARY DISEASE, U 07/17/2018 IESHA AYOUBINE E ASSISTANT GUEST SERVICES MANAGER Ot J45.909 UNSPECIFIED ASTHMA, UNCOMPLICATED 07/17/2018 MEGAIESHA MAGANAINE Rosy ASSISTANT GUEST SERVICES MANAGER Ot J98.4 OTHER DISORDERS OF LUNG 07/17/2018 MEGAIESHA MAGANAINE Rosy ASSISTANT GUEST SERVICES MANAGER Ot R09.02 HYPOXEMIA 07/17/2018 MEGAIESHA MAGANAINE Rosy ASSISTANT GUEST SERVICES MANAGER Ot R94.2 ABNORMAL RESULTS OF PULMONARY FUNCTION S 07/17/2018 AUDREY AYOUB ASSISTANT GUEST SERVICES MANAGER Ot E07.9 DISORDER OF THYROID, UNSPECIFIED 07/17/2018 IESHA AYOUBINE E ASSISTANT GUEST SERVICES MANAGER Ot F41.9 ANXIETY DISORDER, UNSPECIFIED 07/17/2018 IESHA AYOUBINE E ASSISTANT GUEST SERVICES MANAGER Ot G47.30 SLEEP APNEA, UNSPECIFIED 07/17/2018 IESHA AYOUBINE E ASSISTANT GUEST SERVICES MANAGER Ot J44.9 CHRONIC OBSTRUCTIVE PULMONARY DISEASE, U 07/17/2018 IESHA AYOUBINE E ASSISTANT GUEST SERVICES MANAGER Ot J45.909 UNSPECIFIED ASTHMA, UNCOMPLICATED 07/17/2018 MEGA, AUDREY E ASSISTANT GUEST SERVICES MANAGER Ot J98.4 OTHER DISORDERS OF LUNG 07/17/2018 MEGAIESHA MAGANAINE E ASSISTANT GUEST SERVICES MANAGER Ot R09.02 HYPOXEMIA 07/17/2018 MEGA, AUDREY E ASSISTANT GUEST SERVICES MANAGER Ot R94.2 ABNORMAL RESULTS OF PULMONARY FUNCTION S 07/17/2018 BRYAN GRULLON, MATILDE Ot Z01.818 ENCOUNTER FOR OTHER PREPROCEDURAL EXAMIN 07/18/2018 IESHA AYOUBINE E ASSISTANT GUEST SERVICES MANAGER Ot G47.30 SLEEP APNEA, UNSPECIFIED 07/18/2018 AUDREY AYOUB APRN Ot J42 UNSPECIFIED CHRONIC BRONCHITIS 07/18/2018 AUDREY AYOUB APRN Ot J44.9 CHRONIC OBSTRUCTIVE PULMONARY DISEASE, U 07/18/2018 AUDREY AYOUB APRN Ot J45.909 UNSPECIFIED ASTHMA, UNCOMPLICATED 07/18/2018 AUDREY AYOUB ASSISTANT GUEST SERVICES MANAGER Ot K76.0 FATTY (CHANGE OF) LIVER, NOT ELSEWHERE C 07/18/2018 AUDREY AYOUB APRN Ot R16.2 HEPATOMEGALY WITH SPLENOMEGALY, NOT ELSE 07/18/2018 AUDREY AYOUB APRN Ot Z86.11 PERSONAL HISTORY OF TUBERCULOSIS 07/18/2018 WEN POOL DO Ot E04.1 NONTOXIC SINGLE [...] EMBOLISM WITHOUT ACUTE C 07/18/2018 AUDREY AYOUB ASSISTANT GUEST SERVICES MANAGER Ot J44.9 CHRONIC OBSTRUCTIVE PULMONARY DISEASE, U 07/18/2018 AUDREY AYOUB ASSISTANT GUEST SERVICES MANAGER Ot J98.4 OTHER DISORDERS OF LUNG 07/18/2018 AUDREY AYOUB ASSISTANT GUEST SERVICES MANAGER Ot I26.99 OTHER PULMONARY EMBOLISM WITHOUT ACUTE C 07/18/2018 AUDREY AYOUB ASSISTANT GUEST SERVICES MANAGER Ot J44.9 CHRONIC OBSTRUCTIVE PULMONARY DISEASE, U 07/18/2018 AUDREY AYOUB ASSISTANT GUEST SERVICES MANAGER Ot J98.4 OTHER DISORDERS OF LUNG 07/18/2018 AUDREY AYOUB ASSISTANT GUEST SERVICES MANAGER Ot R09.02 HYPOXEMIA 07/18/2018 AUDREY AYOUB ASSISTANT GUEST SERVICES MANAGER Ot J42 UNSPECIFIED CHRONIC BRONCHITIS 07/18/2018 MEGA AUDREY Rosy ASSISTANT GUEST SERVICES MANAGER Ot J45.909 UNSPECIFIED ASTHMA, UNCOMPLICATED 07/18/2018 MEGA AUDREY Rosy ASSISTANT GUEST SERVICES MANAGER Ot J98.4 OTHER DISORDERS OF LUNG 07/18/2018 MEGA AUDREY Rosy ASSISTANT GUEST SERVICES MANAGER Ot J42 UNSPECIFIED CHRONIC BRONCHITIS 07/18/2018 MEGAIESHA MAGANAINE Rosy ASSISTANT GUEST SERVICES MANAGER Ot J45.909 UNSPECIFIED ASTHMA, UNCOMPLICATED 07/18/2018 MEGAIESHA MAGANAINE Rosy ASSISTANT GUEST SERVICES MANAGER Ot J98.4 OTHER DISORDERS OF LUNG 07/18/2018 MEGAIESHA MAGANAINE Rosy ASSISTANT GUEST SERVICES MANAGER Ot R09.02 HYPOXEMIA 07/18/2018 MEGA AUDREY Rosy ASSISTANT GUEST SERVICES MANAGER Ot R94.2 ABNORMAL RESULTS OF PULMONARY FUNCTION S 07/18/2018 AUDREY AYOUB ASSISTANT GUEST SERVICES MANAGER Ot E07.9 DISORDER OF THYROID, UNSPECIFIED 07/18/2018 MEGAIESHA MAGANAINE Rosy ASSISTANT GUEST SERVICES MANAGER Ot F41.9 ANXIETY DISORDER, UNSPECIFIED 07/18/2018 AUDREY AYOUB ASSISTANT GUEST SERVICES MANAGER Ot G47.30 SLEEP APNEA, UNSPECIFIED 07/18/2018 IESHA AYOUBINE Rosy ASSISTANT GUEST SERVICES MANAGER Ot J44.9 CHRONIC OBSTRUCTIVE PULMONARY DISEASE, U 07/18/2018 AUDREY AYUOB ASSISTANT GUEST SERVICES MANAGER Ot J45.909 UNSPECIFIED ASTHMA, UNCOMPLICATED 07/18/2018 AUDREY AYOUB ASSISTANT GUEST SERVICES MANAGER Ot J98.4 OTHER DISORDERS OF LUNG 07/18/2018 AUDREY AYOUB ASSISTANT GUEST SERVICES MANAGER Ot R09.02 HYPOXEMIA 07/18/2018 AUDREY AYOUB ASSISTANT GUEST SERVICES MANAGER Ot R94.2 ABNORMAL RESULTS OF PULMONARY [...] 07/18/2018 MATILDE ADAMS MD Ot Z79.899 OTHER [facility] (CURRENT) DRUG THERAPY 07/23/2018 MATILDE ADAMS MD Ot G47.33 OBSTRUCTIVE SLEEP APNEA (ADULT) (PEDIATR 07/23/2018 MATILDE ADAMS MD, Ot J44.9 CHRONIC OBSTRUCTIVE PULMONARY DISEASE, U 07/23/2018 MATILDE ADAMS MD, Ot K21.0 GASTRO-ESOPHAGEAL REFLUX DISEASE WITH ES 07/23/2018 MATILDE ADAMS MD Ot K29.70 GASTRITIS, UNSPECIFIED, WITHOUT BLEEDING 07/23/2018 MATILDE ADAMS MD, Ot K44.9 DIAPHRAGMATIC HERNIA WITHOUT OBSTRUCTION 07/23/2018 MATILDE ADAMS MD, Ot Z79.899 OTHER [employer] (CURRENT) DRUG THERAPY 08/02/2018 AUDREY AYOUB APRN [...] MASS AND LUMP, LOWER 08/27/2018 AUDREY AYOUB ASSISTANT GUEST SERVICES MANAGER Ot J44.9 CHRONIC OBSTRUCTIVE PULMONARY DISEASE, U 08/27/2018 AUDREY AYOUB ASSISTANT GUEST SERVICES MANAGER Ot E04.1 NONTOXIC SINGLE THYROID NODULE 08/27/2018 AUDREY AYOUB ASSISTANT GUEST SERVICES MANAGER Ot F41.9 ANXIETY DISORDER, UNSPECIFIED 08/27/2018 AUDREY AYOUB ASSISTANT GUEST SERVICES MANAGER Ot I26.99 OTHER PULMONARY EMBOLISM WITHOUT ACUTE C 08/27/2018 AUDREY AYOUB ASSISTANT GUEST SERVICES MANAGER Ot J44.9 CHRONIC OBSTRUCTIVE PULMONARY DISEASE, U 08/27/2018 AUDREY AYOUB ASSISTANT GUEST SERVICES MANAGER Ot J98.4 OTHER DISORDERS OF LUNG 08/27/2018 AUDREY AYOUB ASSISTANT GUEST SERVICES MANAGER Ot I26.99 OTHER PULMONARY EMBOLISM WITHOUT ACUTE C 08/27/2018 AUDREY AYOUB ASSISTANT GUEST SERVICES MANAGER Ot J44.9 CHRONIC OBSTRUCTIVE PULMONARY DISEASE, U 08/27/2018 AUDREY AYOUB ASSISTANT GUEST SERVICES MANAGER Ot J98.4 OTHER DISORDERS OF LUNG 08/27/2018 AUDREY AYOUB ASSISTANT GUEST SERVICES MANAGER Ot R09.02 HYPOXEMIA 08/27/2018 AUDREY AYOUB ASSISTANT GUEST SERVICES MANAGER Ot J42 UNSPECIFIED CHRONIC BRONCHITIS 08/27/2018 AUDREY AYOUB ASSISTANT GUEST SERVICES MANAGER Ot J45.909 UNSPECIFIED ASTHMA, UNCOMPLICATED 08/27/2018 AUDREY AYOUB ASSISTANT GUEST SERVICES MANAGER Ot J98.4 OTHER DISORDERS OF LUNG 08/27/2018 AUDREY AYOUB ASSISTANT GUEST SERVICES MANAGER Ot J42 UNSPECIFIED CHRONIC BRONCHITIS 08/27/2018 AUDREY AYOUB ASSISTANT GUEST SERVICES MANAGER Ot J45.909 UNSPECIFIED ASTHMA, UNCOMPLICATED 08/27/2018 AUDREY AYOUB ASSISTANT GUEST SERVICES MANAGER Ot J98.4 OTHER DISORDERS OF LUNG 08/27/2018 AUDREY AYOUB ASSISTANT GUEST SERVICES MANAGER Ot R09.02 HYPOXEMIA 08/27/2018 MEGA, AUDREY E ASSISTANT GUEST SERVICES MANAGER Ot R94.2 ABNORMAL RESULTS OF PULMONARY FUNCTION S 08/27/2018 AUDREY AYOUB ASSISTANT GUEST SERVICES MANAGER Ot E07.9 DISORDER OF THYROID, UNSPECIFIED 08/27/2018 IESHA AYOUBINE Rosy ASSISTANT GUEST SERVICES MANAGER Ot F41.9 ANXIETY DISORDER, UNSPECIFIED 08/27/2018 IESHA AYOUBINE E ASSISTANT GUEST SERVICES MANAGER Ot G47.30 SLEEP APNEA, UNSPECIFIED 08/27/2018 AUDREY AYOUB ASSISTANT GUEST SERVICES MANAGER Ot J44.9 CHRONIC OBSTRUCTIVE PULMONARY DISEASE, U 08/27/2018 IESHA AYOUBINE Rosy ASSISTANT GUEST SERVICES MANAGER Ot J45.909 UNSPECIFIED ASTHMA, UNCOMPLICATED 08/27/2018 IESHA AYOUBINE Rosy ASSISTANT GUEST SERVICES MANAGER Ot J98.4 OTHER DISORDERS OF LUNG 08/27/2018 AUDREY AYOUB ASSISTANT GUEST SERVICES MANAGER Ot R09.02 HYPOXEMIA 08/27/2018 AUDREY AYOUB ASSISTANT GUEST SERVICES MANAGER Ot R94.2 ABNORMAL RESULTS OF PULMONARY FUNCTION S 08/27/2018 BRYAN GRULLON, MATILDE Ot K21.9 GASTRO-ESOPHAGEAL REFLUX DISEASE WITHOUT 08/27/2018 BRYAN GRULLON, MATILDE Ot Z01.818 ENCOUNTER FOR OTHER PREPROCEDURAL EXAMIN 08/27/2018 AUDREY AYOUB ASSISTANT GUEST SERVICES MANAGER Ot G47.00 INSOMNIA, UNSPECIFIED 08/27/2018 AUDREY AYOUB ASSISTANT GUEST SERVICES MANAGER Ot G47.30 SLEEP APNEA, UNSPECIFIED 08/27/2018 AUDREY AYOUB ASSISTANT GUEST SERVICES MANAGER Ot J44.9 CHRONIC OBSTRUCTIVE PULMONARY DISEASE, U 08/27/2018 AUDREY AYOUB ASSISTANT GUEST SERVICES MANAGER Ot Z01.818 ENCOUNTER FOR OTHER PREPROCEDURAL EXAMIN 08/27/2018 AUDREY AYOUB ASSISTANT GUEST SERVICES MANAGER Ot E07.9 DISORDER OF THYROID, UNSPECIFIED 08/27/2018 IESHA AYOUBINE Rosy ASSISTANT GUEST SERVICES MANAGER Ot F41.9 ANXIETY DISORDER, UNSPECIFIED 08/27/2018 IESHA AYOUBINE Rosy ASSISTANT GUEST SERVICES MANAGER Ot G47.30 SLEEP APNEA, UNSPECIFIED 08/27/2018 IESHA AYOUBINE Rosy ASSISTANT GUEST SERVICES MANAGER Ot J44.9 CHRONIC OBSTRUCTIVE PULMONARY DISEASE, U 08/27/2018 IESHA AYOUBINE Rosy ASSISTANT GUEST SERVICES MANAGER Ot J45.909 UNSPECIFIED ASTHMA, UNCOMPLICATED 08/27/2018 IESHA AYOUBINE E ASSISTANT GUEST SERVICES MANAGER Ot J98.4 OTHER DISORDERS OF LUNG 08/27/2018 IESHA AYOUBINE Rosy ASSISTANT GUEST SERVICES MANAGER Ot R09.02 HYPOXEMIA 08/27/2018 AUDREY AYOUB APRN [...] MASS AND LUMP, LOWER 08/31/2018 AUDREY AYOUB ASSISTANT GUEST SERVICES MANAGER Ot J44.9 CHRONIC OBSTRUCTIVE PULMONARY DISEASE, U 08/31/2018 IESHA AYOUBINE Rosy ASSISTANT GUEST SERVICES MANAGER Ot E04.1 NONTOXIC SINGLE THYROID NODULE 08/31/2018 AUDREY AYOUB ASSISTANT GUEST SERVICES MANAGER Ot F41.9 ANXIETY DISORDER, UNSPECIFIED 08/31/2018 AUDREY AYOUB ASSISTANT GUEST SERVICES MANAGER Ot I26.99 OTHER PULMONARY EMBOLISM WITHOUT ACUTE C 08/31/2018 AUDREY AYOUB ASSISTANT GUEST SERVICES MANAGER Ot J44.9 CHRONIC OBSTRUCTIVE PULMONARY DISEASE, U 08/31/2018 AUDREY AYOUB ASSISTANT GUEST SERVICES MANAGER Ot J98.4 OTHER DISORDERS OF LUNG 08/31/2018 AUDREY AYOUB ASSISTANT GUEST SERVICES MANAGER Ot I26.99 OTHER PULMONARY EMBOLISM WITHOUT ACUTE C 08/31/2018 AUDREY AYOUB ASSISTANT GUEST SERVICES MANAGER Ot J44.9 CHRONIC OBSTRUCTIVE PULMONARY DISEASE, U 08/31/2018 AUDREY AYOUB ASSISTANT GUEST SERVICES MANAGER Ot J98.4 OTHER DISORDERS OF LUNG 08/31/2018 AUDREY AYOUB ASSISTANT GUEST SERVICES MANAGER Ot R09.02 HYPOXEMIA 08/31/2018 AUDREY AYOUB ASSISTANT GUEST SERVICES MANAGER Ot J42 UNSPECIFIED CHRONIC BRONCHITIS 08/31/2018 AUDREY AYOUB ASSISTANT GUEST SERVICES MANAGER Ot J45.909 UNSPECIFIED ASTHMA, UNCOMPLICATED 08/31/2018 AUDREY AYOUB ASSISTANT GUEST SERVICES MANAGER Ot J98.4 OTHER DISORDERS OF LUNG 08/31/2018 AUDREY AYOUB ASSISTANT GUEST SERVICES MANAGER Ot J42 UNSPECIFIED CHRONIC BRONCHITIS 08/31/2018 AUDREY AYOUB ASSISTANT GUEST SERVICES MANAGER Ot J45.909 UNSPECIFIED ASTHMA, UNCOMPLICATED 08/31/2018 AUDREY AYOUB ASSISTANT GUEST SERVICES MANAGER Ot J98.4 OTHER DISORDERS OF LUNG 08/31/2018 AUDREY AYOUB ASSISTANT GUEST SERVICES MANAGER Ot R09.02 HYPOXEMIA 08/31/2018 AUDREY AYOUB ASSISTANT GUEST SERVICES MANAGER Ot R94.2 ABNORMAL RESULTS OF PULMONARY FUNCTION S 08/31/2018 AUDREY AYOUB ASSISTANT GUEST SERVICES MANAGER Ot E07.9 DISORDER OF THYROID, UNSPECIFIED 08/31/2018 AUDREY AYOUB ASSISTANT GUEST SERVICES MANAGER Ot F41.9 ANXIETY DISORDER, UNSPECIFIED 08/31/2018 AUDREY AYOUB ASSISTANT GUEST SERVICES MANAGER Ot G47.30 SLEEP APNEA, UNSPECIFIED 08/31/2018 AUDREY AYOUB ASSISTANT GUEST SERVICES MANAGER Ot J44.9 CHRONIC OBSTRUCTIVE PULMONARY DISEASE, U 08/31/2018 AUDREY AYOUB ASSISTANT GUEST SERVICES MANAGER Ot J45.909 UNSPECIFIED ASTHMA, UNCOMPLICATED 08/31/2018 AUDREY AYOUB ASSISTANT GUEST SERVICES MANAGER Ot J98.4 OTHER DISORDERS OF LUNG 08/31/2018 AUDREY AYOUB ASSISTANT GUEST SERVICES MANAGER Ot R09.02 HYPOXEMIA 08/31/2018 AUDREY AYOUB ASSISTANT GUEST SERVICES MANAGER Ot R94.2 ABNORMAL RESULTS OF PULMONARY FUNCTION S 08/31/2018 MATILDE ADAMS MD Ot K21.9 GASTRO-ESOPHAGEAL REFLUX DISEASE WITHOUT 08/31/2018 MATILDE ADAMS MD Ot Z01.818 ENCOUNTER FOR OTHER PREPROCEDURAL EXAMIN 08/31/2018 AUDREY AYOUB ASSISTANT GUEST SERVICES MANAGER Ot G47.00 INSOMNIA, UNSPECIFIED 08/31/2018 AUDREY AYOUB ASSISTANT GUEST SERVICES MANAGER Ot G47.30 SLEEP APNEA, UNSPECIFIED 08/31/2018 AUDREY AYOUB ASSISTANT GUEST SERVICES MANAGER Ot J44.9 CHRONIC OBSTRUCTIVE PULMONARY DISEASE, U 08/31/2018 AUDREY AYOUB APRN Ot Z01.818 ENCOUNTER FOR OTHER PREPROCEDURAL EXAMIN 09/01/2018 AUDREY AYOUB APRN Ot G47.30 SLEEP APNEA, UNSPECIFIED 09/01/2018 AUDREY AYOUB ASSISTANT GUEST SERVICES MANAGER Ot J42 UNSPECIFIED CHRONIC BRONCHITIS 09/01/2018 AUDREY AYOUB ASSISTANT GUEST SERVICES MANAGER Ot J44.9 CHRONIC OBSTRUCTIVE PULMONARY DISEASE, U 09/01/2018 AUDREY AYOUB ASSISTANT GUEST SERVICES MANAGER Ot J45.909 UNSPECIFIED ASTHMA, UNCOMPLICATED 09/01/2018 AUDREY AYOUB ASSISTANT GUEST SERVICES MANAGER Ot K76.0 FATTY (CHANGE OF) LIVER, NOT ELSEWHERE C 09/01/2018 AUDREY AYOUB ASSISTANT GUEST SERVICES MANAGER Ot R16.2 HEPATOMEGALY WITH SPLENOMEGALY, NOT ELSE 09/01/2018 AUDREY AYOUB ASSISTANT GUEST SERVICES MANAGER Ot Z86.11 PERSONAL HISTORY OF TUBERCULOSIS 09/01/2018 WEN POOL DO Ot E04.1 NONTOXIC SINGLE THYROID NODULE 09/01/2018 WEN POOL DO Ot I26.99 OTHER PULMONARY EMBOLISM WITHOUT ACUTE C 09/01/2018 WEN POOL DO Ot K43.9 VENTRAL HERNIA WITHOUT OBSTRUCTION OR GA 09/01/2018 WEN POOL DO Ot K76.0 FATTY (CHANGE OF) LIVER, NOT ELSEWHERE C 09/01/2018 WEN POOL DO Ot R22.43 LOCALIZED SWELLING, MASS AND LUMP, LOWER 09/01/2018 AUDREY AYOUB ASSISTANT GUEST SERVICES MANAGER Ot J44.9 CHRONIC OBSTRUCTIVE PULMONARY DISEASE, U 09/01/2018 AUDREY AYOUB ASSISTANT GUEST SERVICES MANAGER Ot E04.1 NONTOXIC SINGLE THYROID NODULE 09/01/2018 AUDREY AYOUB ASSISTANT GUEST SERVICES MANAGER Ot F41.9 ANXIETY DISORDER, UNSPECIFIED 09/01/2018 AUDREY AYOUB ASSISTANT GUEST SERVICES MANAGER Ot I26.99 OTHER PULMONARY EMBOLISM WITHOUT ACUTE C 09/01/2018 AUDREY AYOUB ASSISTANT GUEST SERVICES MANAGER Ot J44.9 CHRONIC OBSTRUCTIVE PULMONARY DISEASE, U 09/01/2018 AUDREY AYOUB ASSISTANT GUEST SERVICES MANAGER Ot J98.4 OTHER DISORDERS OF LUNG 09/01/2018 AUDREY AYOUB ASSISTANT GUEST SERVICES MANAGER Ot I26.99 OTHER PULMONARY EMBOLISM WITHOUT ACUTE C 09/01/2018 AUDREY AYOUB ASSISTANT GUEST SERVICES MANAGER Ot J44.9 CHRONIC OBSTRUCTIVE PULMONARY DISEASE, U 09/01/2018 AUDREY AYOUB ASSISTANT GUEST SERVICES MANAGER Ot J98.4 OTHER DISORDERS OF LUNG 09/01/2018 AUDREY AYOUB ASSISTANT GUEST SERVICES MANAGER Ot R09.02 HYPOXEMIA 09/01/2018 AUDREY AYOUB ASSISTANT GUEST SERVICES MANAGER Ot J42 UNSPECIFIED CHRONIC BRONCHITIS 09/01/2018 AUDREY AYOUB ASSISTANT GUEST SERVICES MANAGER Ot J45.909 UNSPECIFIED ASTHMA, UNCOMPLICATED 09/01/2018 AUDREY AYOUB ASSISTANT GUEST SERVICES MANAGER Ot J98.4 OTHER DISORDERS OF LUNG 09/01/2018 AUDREY AYOUB ASSISTANT GUEST SERVICES MANAGER Ot J42 UNSPECIFIED CHRONIC BRONCHITIS 09/01/2018 AUDREY AYOUB ASSISTANT GUEST SERVICES MANAGER Ot J45.909 UNSPECIFIED ASTHMA, UNCOMPLICATED 09/01/2018 AUDREY AYOUB ASSISTANT GUEST SERVICES MANAGER Ot J98.4 OTHER DISORDERS OF LUNG 09/01/2018 AUDREY AYOUB ASSISTANT GUEST SERVICES MANAGER Ot R09.02 HYPOXEMIA 09/01/2018 AUDREY AYOUB ASSISTANT GUEST SERVICES MANAGER Ot R94.2 ABNORMAL RESULTS OF PULMONARY FUNCTION S 09/01/2018 AUDREY AYOUB ASSISTANT GUEST SERVICES MANAGER Ot E07.9 DISORDER OF THYROID, UNSPECIFIED 09/01/2018 AUDREY AYOUB ASSISTANT GUEST SERVICES MANAGER Ot F41.9 ANXIETY DISORDER, UNSPECIFIED 09/01/2018 AUDREY AYOUB ASSISTANT GUEST SERVICES MANAGER Ot G47.30 SLEEP APNEA, UNSPECIFIED 09/01/2018 AUDREY AYOUB ASSISTANT GUEST SERVICES MANAGER Ot J44.9 CHRONIC OBSTRUCTIVE PULMONARY DISEASE, U 09/01/2018 AUDREY AYOUB ASSISTANT GUEST SERVICES MANAGER Ot J45.909 UNSPECIFIED ASTHMA, UNCOMPLICATED 09/01/2018 AUDREY AYOUB ASSISTANT GUEST SERVICES MANAGER Ot J98.4 OTHER DISORDERS OF LUNG 09/01/2018 AUDREY AYOUB ASSISTANT GUEST SERVICES MANAGER Ot R09.02 HYPOXEMIA 09/01/2018 AUDREY AYOUB ASSISTANT GUEST SERVICES MANAGER Ot R94.2 ABNORMAL RESULTS OF PULMONARY FUNCTION S 09/01/2018 MATILDE ADAMS MD Ot K21.9 GASTRO-ESOPHAGEAL REFLUX DISEASE WITHOUT 09/01/2018 MATILDE ADAMS MD Ot Z01.818 ENCOUNTER FOR OTHER PREPROCEDURAL EXAMIN 09/01/2018 AUDREY AYOUB ASSISTANT GUEST SERVICES MANAGER Ot G47.00 INSOMNIA, UNSPECIFIED 09/01/2018 AUDREY AYOUB ASSISTANT GUEST SERVICES MANAGER Ot G47.30 SLEEP APNEA, UNSPECIFIED 09/01/2018 AUDREY AYOUB ASSISTANT GUEST SERVICES MANAGER Ot J44.9 CHRONIC OBSTRUCTIVE PULMONARY DISEASE, U 09/01/2018 AUDREY AYOUB ASSISTANT GUEST SERVICES MANAGER Ot Z01.818 ENCOUNTER FOR OTHER PREPROCEDURAL [...] UNSPECIFIED 09/01/2018 DEMETRIUS LOPEZ MD Ot Z79.51 [employer] (CURRENT) USE OF INHALED STERO 09/01/2018 DEMETRIUS [...] UNSPECIFIED 09/03/2018 DEMETRIUS LOPEZ MD Ot Z79.51 [facility] (CURRENT) USE OF INHALED STERO 09/03/2018 DEMETRIUS [...] UNSPECIFIED 09/03/2018 DEMETRIUS LOPEZ MD Ot Z79.51 [facility] (CURRENT) USE OF INHALED STERO 09/03/2018 DEMETRIUS [...] UNSPECIFIED 09/04/2018 DEMETRIUS LOPEZ MD Ot Z79.51 [employer] (CURRENT) USE OF INHALED STERO 09/04/2018 DEMETRIUS [...] UNSPECIFIED 09/06/2018 DEMETRIUS LOPEZ MD Ot Z79.51 [facility] (CURRENT) USE OF INHALED STERO 09/06/2018 DEMETRIUS [...] Z98.84 BARIATRIC SURGERY STATUS 09/10/2018 AUDREY AYOUB ASSISTANT GUEST SERVICES MANAGER Ot E07.9 DISORDER OF THYROID, UNSPECIFIED 09/10/2018 AUDREY AYOUB ASSISTANT GUEST SERVICES MANAGER Ot F41.9 ANXIETY DISORDER, UNSPECIFIED 09/10/2018 AUDREY AYOUB ASSISTANT GUEST SERVICES MANAGER Ot G47.30 SLEEP APNEA, UNSPECIFIED 09/10/2018 AUDREY AYOUB APRN Ot J44.9 CHRONIC OBSTRUCTIVE PULMONARY DISEASE, U 09/10/2018 AUDREY AYOUB ASSISTANT GUEST SERVICES MANAGER Ot J45.909 UNSPECIFIED ASTHMA, UNCOMPLICATED 09/10/2018 AUDREY AYOUB ASSISTANT GUEST SERVICES MANAGER Ot J98.4 OTHER DISORDERS OF LUNG 09/10/2018 AUDREY AYOUB ASSISTANT GUEST SERVICES MANAGER Ot R09.02 HYPOXEMIA 09/10/2018 AUDREY AYOUB APRN [...] (SEVERE) OBESITY DUE TO EXCESS CA 09/11/2018 MAITLDE ADAMS MD Ot E78.00 PURE HYPERCHOLESTEROLEMIA, UNSPECIFIED [...] OBSTRUCTIVE SLEEP APNEA (ADULT) (PEDIATR 09/12/2018 MATILDE ADAMS MD Ot J44.9 CHRONIC OBSTRUCTIVE [...] CHRONIC OBSTRUCTIVE PULMONARY DISEASE, U 09/13/2018 MATILDE ADMAS MD Ot K95.89 OTHER COMPLICATIONS OF OTHER [...] UNSPECIFIED 09/18/2018 DEMETRIUS LOPEZ MD, Ot Z79.51 [employer] (CURRENT) USE OF INHALED STERO 09/18/2018 DEMETRIUS [...] Ot G47.00 INSOMNIA, UNSPECIFIED 11/08/2018 AUDREY AYOUB ASSISTANT GUEST SERVICES MANAGER Ot G47.30 SLEEP APNEA, UNSPECIFIED 11/08/2018 AUDREY AYOUB ASSISTANT GUEST SERVICES MANAGER Ot J44.9 CHRONIC OBSTRUCTIVE PULMONARY DISEASE, U 11/08/2018 AUDREY AYOUB APRN Ot Z01.818 ENCOUNTER FOR OTHER PREPROCEDURAL EXAMIN 12/05/2018 AUDREY AYOUB ASSISTANT GUEST SERVICES MANAGER Ot G47.00 INSOMNIA, UNSPECIFIED 12/05/2018 AUDREY AYOUB ASSISTANT GUEST SERVICES MANAGER Ot G47.30 SLEEP APNEA, UNSPECIFIED 12/05/2018 AUDREY AYOUB ASSISTANT GUEST SERVICES MANAGER Ot J44.9 CHRONIC OBSTRUCTIVE PULMONARY DISEASE, U 12/05/2018 AUDREY AYOUB APRN Ot Z01.818 ENCOUNTER FOR OTHER PREPROCEDURAL EXAMIN Procedures Code Description [place] [id number] OFFICE/OUTPATIENT VISIT NEW 04/03/2018 [id number] OFFICE/OUTPATIENT VISIT EST 08/06/2018 [id number] EXCISION OF STOMACH, PERCUTANEOUS ENDOSC 08/30/2018 [id number] INSERTION OF INFUSION DEV INTO SUP VENA [...] INFLUENZA A AND B ANTIGENS BY IA [facility] Bacterial blood culture - 09/01/18 00:13 Bacterial blood culture [facility] Complete blood count (CBC) with automated [...] measurement by glucometer (mass/volume) 122 mg/dL 70-110 Complete blood count (CBC) with automated white blood cell (WBC) differential - 12/18/18 17:41 Blood leukocytes automated count (number/volume) 6.6 10*3/uL 4.3-11.0 Blood erythrocytes automated count (number/volume) 4.96 10*6/uL 4.35-5.85 Venous blood hemoglobin measurement (mass/volume) 12.3 g/dL 11.5-16.0 Blood hematocrit (volume fraction) 39 % 35-52 Automated erythrocyte mean corpuscular volume 78 [foz_us] 80-99 Automated erythrocyte mean corpuscular hemoglobin (mass per erythrocyte) 25 pg 25-34 Automated erythrocyte mean corpuscular hemoglobin concentration measurement ( mass/volume) 32 g/dL 32-36 Automated erythrocyte distribution width ratio 15.0 % 10.0-14.5 Automated blood platelet count (count/volume) 255 10*3/uL 130-400 Automated blood platelet mean volume measurement 11.3 [foz_us] 7.4-10.4 Automated blood neutrophils/100 leukocytes 63 % 42-75 Automated blood lymphocytes/100 leukocytes 13 % 12-44 Blood monocytes/100 leukocytes 22 % 0-12 Automated blood eosinophils/100 leukocytes 1 % 0-10 Automated blood basophils/100 leukocytes 1 % 0-10 Blood neutrophils automated count (number/volume) 4.2 10*3 1.8-7.8 Blood lymphocytes automated count (number/volume) 0.9 10*3 1.0-4.0 Blood monocytes automated count (number/volume) 1.5 10*3 0.0-1.0 Automated eosinophil count 0.1 10*3/uL 0.0-0.3 Automated blood basophil count (count/volume) 0.0 10*3/uL 0.0-0.1 Comprehensive metabolic panel - 12/18/18 17:41 Serum or plasma sodium measurement (moles/volume) 136 mmol/L 135-145 Serum or plasma potassium measurement (moles/volume) 3.4 mmol/L 3.6-5.0 Serum or plasma chloride measurement (moles/volume) 98 mmol/L 98-107 Carbon dioxide 25 mmol/L 21-32 Serum or plasma anion gap determination (moles/volume) 13 mmol/L 5-14 Serum or plasma urea nitrogen measurement (mass/volume) 46 mg/dL 7-18 Serum or plasma creatinine measurement (mass/volume) 1.69 mg/dL 0.60-1.30 Serum or plasma urea nitrogen/creatinine mass ratio 27 NRG Serum or plasma creatinine measurement with calculation of estimated glomerular filtration rate 31 NRG Serum or plasma glucose measurement (mass/volume) 113 mg/dL 70-105 Serum or plasma calcium measurement (mass/volume) 9.6 mg/dL 8.5-10.1 Serum or plasma total bilirubin measurement (mass/volume) 0.6 mg/dL 0.1-1.0 Serum or plasma alkaline phosphatase measurement (enzymatic activity/volume) 115 U/L 40-136 Serum or plasma aspartate aminotransferase measurement (enzymatic activity/ volume) 13 U/L 5-34 Serum or plasma alanine aminotransferase measurement (enzymatic activity/volume ) 14 U/L 0-55 Serum or plasma protein measurement (mass/volume) 6.5 g/dL 6.4-8.2 Serum or plasma albumin measurement (mass/volume) 3.6 g/dL 3.2-4.5 CALCIUM CORRECTED 9.9 mg/dL 8.5-10.1 Lipase - 12/18/18 17:41 Lipase < U/L 8-78 Blood manual differential performed detection - 12/18/18 17:41 Blood monocytes/100 leukocytes 18 % NRG Manual blood segmented neutrophils/100 leukocytes 49 % NRG Blood band neutrophils/100 leukocytes 5 % NRG Manual blood lymphocytes/100 leukocytes 13 % NRG Manual eosinophils/100 leukocytes in nose 1 % NRG Blood lymphocytes variant/100 leukocytes 14 % NRG Blood erythrocyte morphology finding identification NORMAL NRG Encounters ACCT No. Visit Date/Time Discharge Status Pt. Type Provider Facility Loc./Unit Complaint [id number] 11/01/2018 09:26:26 11/01/2018 23:59:59 [facility] Outpatient Sean Marie [id number] 10/16/2018 14:31:29 10/16/2018 23:59:59 [facility] Outpatient Sean Marie [id number] 09/27/2018 16:17:35 09/27/2018 23:59:59 CLS Outpatient Michelle Greco [id number] 08/13/2018 13:49:27 08/13/2018 23:59:59 CLS Outpatient Aurora Martin [id number] 08/12/2018 13:55:43 08/12/2018 23:59:59 CLS Outpatient Aurora Martin [id number] 07/20/2018 16:46:18 07/20/2018 23:59:59 CLS Outpatient Sean Marie [id number] 04/11/2018 13:52:57 04/11/2018 23:59:59 CLS Outpatient Destinee Ricoitya [id number] 03/29/2018 15:19:47 03/29/2018 23:59:59 CLS Outpatient DaniellalingSean magana [id number] 03/09/2018 09:51:30 03/09/2018 23:59:59 CLS Outpatient DaniellalingerSean [id number] 02/28/2018 08:52:38 02/28/2018 23:59:59 CLS Outpatient Destinee Ricoitya [id number] 01/29/2018 17:36:47 01/29/2018 23:59:59 CLS Outpatient Laine Siegel [id number] 01/19/2018 11:26:07 01/19/2018 23:59:59 CLS Outpatient DaniellalingSean magana [id number] 10/27/2017 10:00:45 10/27/2017 23:59:59 CLS Outpatient Destinee Ricoitya [id number] 10/23/2017 09:29:56 10/23/2017 23:59:59 CLS Outpatient DaniellalingSean magana [id number] 09/20/2017 12:18:44 09/20/2017 23:59:59 CLS Outpatient RicoDestinee sanonFredis [id number] 08/31/2017 15:49:06 08/31/2017 23:59:59 CLS Outpatient Destinee Ricoitya [id number] 08/09/2017 10:08:51 08/09/2017 23:59:59 [id number]2017 09:35:41 07/07/2017 23:59:59 [id number] 06/16/2017 11:07:00 06/16/2017 23:59:59 CLS Outpatient HetlingerSean [id number] 05/15/2017 09:46:10 05/15/2017 23:59:59 CLS Outpatient HetlingerSean [id number] 04/23/2017 14:14:47 04/23/2017 23:59:59 CLS Outpatient Aurora Martin [id number] 04/14/2017 09:19:24 04/14/2017 23:59:59 CLS Outpatient HetlingerSean [id number] 03/20/2017 15:22:17 03/20/2017 23:59:59 CLS Outpatient Hetlinger, Sean [id number] 03/03/2017 17:59:33 03/03/2017 23:59:59 CLS Outpatient Aurora Martin [id number] 01/09/2017 14:30:18 01/09/2017 23:59:59 CLS Outpatient Hetlinger, Sean [id number] 01/02/2017 14:28:33 01/02/2017 23:59:59 CLS Outpatient Hetlinger, Sean [id number] 12/27/2016 15:56:43 12/27/2016 23:59:59 CLS Outpatient Hetlinger, Sean [id number] 2016 09:39:41 2016 23:59:59 CLS Outpatient Hetlinger, Sean [id number] 09/19/2016 11:06:13 09/19/2016 23:59:59 CLS Outpatient Hetlinger, Sean [id number] 07/01/2016 09:18:55 07/01/2016 23:59:59 CLS Outpatient Hetlinger, Sean [id number] 06/17/2016 11:21:34 06/17/2016 23:59:59 CLS Outpatient Hetlinger, Sean [id number] 06/02/2016 11:45:43 06/02/2016 23:59:59 CLS Outpatient Michelle Greco Sean [id number] 05/20/2016 10:07:14 05/20/2016 23:59:59 CLS Outpatient Hetlinger, Sean [id number] 04/01/2016 10:43:20 04/01/2016 23:59:59 CLS Outpatient Hetlinger, Sean [id number] 12/09/2015 18:02:06 12/09/2015 23:59:59 CLS Outpatient Miguel A Munoz [id number] 11/17/2015 15:42:52 11/17/2015 23:59:59 CLS Outpatient Hetlinger, Sean [id number] 11/03/2015 09:17:08 11/03/2015 23:59:59 CLS Outpatient Hetlinger, Sean [id number] 10/09/2015 09:43:07 10/09/2015 23:59:59 CLS Outpatient Hetlinger, Sean [id number] 08/31/2015 15:29:16 08/31/2015 23:59:59 CLS Outpatient Hetlinger, Sean [id number] 08/25/2015 11:01:57 08/25/2015 23:59:59 CLS Outpatient HetlingerSean [id number] 06/05/2015 10:21:13 06/05/2015 23:59:59 CLS Outpatient HetlingerSean [id number] 06/01/2015 07:40:23 06/01/2015 23:59:59 CLS Outpatient Michelle Greco [id number] 05/11/2015 22:33:28 05/11/2015 23:59:59 CLS Outpatient Amaris Gentile [id number] 05/11/2015 22:31:59 05/11/2015 23:59:59 CLS Outpatient Kiarra Ramos [id number] 05/11/2015 22:07:32 05/11/2015 23:59:59 CLS Outpatient HetlingerSean [id number] 05/11/2015 22:03:31 05/11/2015 23:59:59 CLS Outpatient HetlingerSean [id number] 05/11/2015 21:59:14 05/11/2015 23:59:59 CLS Outpatient HetlingerSean [id number] 05/11/2015 21:28:40 05/11/2015 23:59:59 CLS Outpatient HetlingerSean [id number] 01/26/2015 16:10:40 01/26/2015 23:59:59 CLS Outpatient Leena Haddad [id number] 01/12/2015 09:52:09 01/12/2015 23:59:59 CLS Outpatient HetlingSean magana [id number] 10/22/2014 14:36:19 10/22/2014 23:59:59 CLS Outpatient Miguel A Munoz [id number] 08/22/2014 09:31:15 08/22/2014 23:59:59 CLS Outpatient HetlingerSean [id number] 08/01/2014 10:40:38 08/01/2014 23:59:59 CLS Outpatient HetlingSean magana [id number] 06/09/2014 15:49:13 06/09/2014 23:59:59 CLS Outpatient Kiarra Ramos [id number] 03/14/2014 09:18:53 03/14/2014 23:59:59 CLS Outpatient Leena Haddad [id number] 02/27/2014 14:57:30 02/27/2014 23:59:59 CLS Outpatient Leena Haddad [id number] 12/02/2013 10:40:20 12/02/2013 23:59:59 CLS Outpatient Sean Marie [id number] 11/25/2013 10:02:26 11/25/2013 23:59:59 CLS Outpatient Sean Marie [id number] 11/14/2013 15:16:36 11/14/2013 23:59:59 CLS Outpatient Kiarra Ramos [id number] 12/18/2018 14:59:16 Document Registration [id number] 12/18/2018 10:13:41 Document Registration [id number] 11/01/2018 15:16:55 Document Registration [id number] 11/01/2018 15:10:29 Document Registration [id number] 11/01/2018 11:41:00 Document Registration [id number] 11/01/2018 09:18:02 Document Registration [id number] 08/01/2018 12:07:55 Document Registration [id number] 07/25/2018 10:28:51 Document Registration [id number] 07/20/2018 08:59:49 Document Registration [id number] 05/22/2018 15:27:56 Document Registration [id number] 04/30/2018 10:19:47 Document Registration [id number] 03/02/2018 08:28:44 Document Registration [id number] 01/19/2018 11:47:58 Document Registration [id number] 12/04/2017 22:01:23 Document Registration [id number] 11/17/2017 14:30:23 Document Registration [id number] 11/17/2017 14:20:24 Document Registration [id number] 11/13/2017 16:14:58 Document Registration [id number] 10/17/2017 14:41:57 Document Registration [id number] 09/22/2017 16:12:37 Document Registration [id number] 09/22/2017 16:11:47 Document Registration [id number] 09/01/2017 08:49:17 Document Registration [id number] 06/16/2017 11:00:02 Document Registration [id number] 05/18/2017 13:38:17 Document Registration [id number] 05/17/2017 08:52:26 Document Registration [id number] 09/06/2018 13:35:00 09/18/2018 17:00:00 DIS Inpatient MATILDE ADAMS MD [facility] 4TH POST OP GASTRECTOMY LEAK [id number] 09/06/2018 11:44:00 09/06/2018 23:59:59 CLS Outpatient MATILDE ADAMS MD [facility] RAD ABD PAIN S/P SLEEVE GASTRECTOMY [id number] 08/31/2018 22:27:00 09/01/2018 04:30:00 DIS Emergency DEMETRIUS LOPEZ MD [facility] ER TEMP; BARIATRIC SURGERY COMPLICATIONS [id number] 08/30/2018 11:18:00 08/31/2018 15:50:00 DIS Outpatient MATILDE AADMS MD [facility] 4TH MORBID OBESITY [id number] 08/27/2018 12:07:00 08/27/2018 15:47:00 DIS Outpatient MATILDE ADAMS MD [facility] PREOP MORBID OBESITY [id number] 08/15/2018 08:11:00 08/15/2018 23:59:59 CLS Outpatient MATILDE ADAMS MD [facility] RAD REFLUX [id number] 07/31/2018 10:14:00 07/31/2018 23:59:59 CLS Outpatient AUDREY AYOUB APRN [facility] RAD J44.9,G47.00 [id number] 07/18/2018 11:37:00 07/18/2018 14:50:00 DIS Outpatient MATILDE ADAMS MD [facility] ENDO REFLUX [id number] 07/17/2018 14:37:00 07/17/2018 15:09:00 DIS Outpatient MATILDE ADAMS MD [facility] PREOP EGD [id number] 03/08/2018 08:15:00 03/08/2018 23:59:59 CLS Preadmit AUDREY AYOUB APRN [facility] PULM F41.9 ANXIETY J45.909 ASTHMA [id number] 12/19/2017 13:00:00 03/07/2018 00:01:00 DIS Outpatient AUDREY AYOUB ASSISTANT [employer] SERVICES MANAGER [facility] PULM F41.9 ANXIETY J45.909 ASTHMA [id number] 12/18/2017 11:38:00 12/18/2017 23:59:59 CLS Outpatient MEGA, AUDREY E ASSISTANT [employer]UE[employer] SERVICES MANAGER [facility] RT RESTRICITVE LUNG DISEASE,ASTHMA [id number] 12/12/2017 15:37:00 12/12/2017 23:59:59 CLS Outpatient MEGA, AUDREY E ASSISTANT [employer]UE[employer] SERVICES MANAGER [facility] PULM J45.909 [id number] 12/05/2017 13:54:00 12/05/2017 23:59:59 CLS Outpatient MEGA, AUDREY E ASSISTANT GUE[employer] SERVICES MANAGER [facility] RAD J45.909,J44.9 [id number] 11/30/2017 13:00:00 12/03/2017 00:01:00 DIS Outpatient MEGA, AUDREY E ASSISTANT [employer]UE[employer] SERVICES MANAGER [facility] PULM F41.9 ANXIETY J45.909 ASTHMA [id number] 10/19/2017 15:24:00 10/19/2017 23:59:59 CLS Outpatient MEGA, AUDREY E ASSISTANT GUEST SERVICES MANAGER [facility] LAB J44.9 R09.02 I26.99 J98.4 [id number] 06/30/2017 08:37:00 06/30/2017 23:59:59 CLS Outpatient MEGA, AUDREY E ASSISTANT GUEST SERVICES MANAGER [facility] LAB J44.9 [id number] 06/29/2017 14:43:00 06/29/2017 23:59:59 CLS Outpatient WEN POOL DO [facility] RAD COPD,ASTHMA [id number] 06/14/2017 15:28:00 06/14/2017 23:59:59 CLS Outpatient MEGA, AUDREY E ASSISTANT GUEST SERVICES MANAGER [facility] RAD J45.909 ASTHMA [id number] 12/18/2018 18:20:00 Document Registration [id number] 01/22/2018 11:05:00 Document Registration [id number] 12/03/2018 07:49:00 12/03/2018 23:59:59 CLS Outpatient Carolina Barry [id number] 08/27/2018 14:39:00 08/27/2018 23:59:59 CLS Outpatient Carolina Barry [id number] 08/06/2018 15:45:00 08/06/2018 23:59:59 CLS Outpatient Jhonny, Carolina [id number] 06/26/2018 14:46:00 06/26/2018 23:59:59 CLS Outpatient Jhonny, Carolina [id number] 05/02/2018 11:05:00 05/02/2018 23:59:59 CLS Outpatient Jhonny, Carolina [id number] 04/30/2018 08:38:00 04/30/2018 23:59:59 CLS Outpatient Jhonny, Carolina [id number] 04/16/2018 12:00:00 04/16/2018 23:59:59 CLS Outpatient Jhonny, Carolina [id number] 04/03/2018 13:30:00 04/03/2018 23:59:59 CLS Outpatient Jhonny, Carolina [id number] 08/04/2018 14:05:00 Document Registration
[2018-12-19] VITALS (7 sets, daily range): BP systolic 100–151; BP diastolic 50–77
[2018-12-19] MEDS: NS W/KCL 40 MEQ/L 1,000 ML IV SCH ×4 (01:10→17:56)
--- NOTE | 2018-12-19 03:21 | NUR ---
0113-pt complains of nausea and restless legs-prn zofran & zanaflex given 0145-pt resting in bed eyes closed, respirations even not labored, no further distress noted.
[2018-12-19] MEDS: CATHETER FLUSH 10 ML SYR IV SCH ×3 (05:47→19:58)
[2018-12-19 06:32] LABS: BASOPHILS % (AUTO) 0 % (0-10); EOSINOPHILS # (AUTO) 0.1 10^3/uL (0.0-0.3); EOSINOPHILS % (AUTO) 2 % (0-10); HEMATOCRIT 36 % (35-52); HEMOGLOBIN 11.3 G/DL (11.5-16.0); LYMPHOCYTES # (AUTO) 0.9 X 10^3 (1.0-4.0); LYMPHOCYTES % (AUTO) 20 % (12-44); MEAN CORPUSCULAR HEMOGLOBIN 25 PG (25-34); MEAN CORPUSCULAR HGB CONC 32 G/DL (32-36); MEAN CORPUSCULAR VOLUME 78 FL (80-99); MONOCYTES % (AUTO) 23 % (0-12); NEUTROPHILS # (AUTO) 2.4 X 10^3 (1.8-7.8); NEUTROPHILS % (AUTO) 55 % (42-75); PLATELET COUNT 234 10^3/uL (130-400); RED CELL DISTRIBUTION WIDTH 15.3 % (10.0-14.5); WHITE BLOOD COUNT 4.3 10^3/uL (4.3-11.0)
[2018-12-19] MEDS ORDERED: FLU QUADRIvalent (5+ YOA) 2018-2019 (AFLURIA) 0.5 ML IM ONE (07:00)
[2018-12-19 07:12] LABS: ALANINE AMINOTRANSFERASE 12 U/L (0-55); ALBUMIN 3.1 GM/DL (3.2-4.5); ALKALINE PHOSPHATASE 95 U/L (40-136); BILIRUBIN,TOTAL 0.4 MG/DL (0.1-1.0); BUN/CREATININE RATIO 40; CARBON DIOXIDE 24 MMOL/L (21-32); CHLORIDE 104 MMOL/L (98-107); CREATININE SERUM 0.92 MG/DL (0.60-1.30); GFR ESTIMATED > 60; GLUCOSE 118 MG/DL (70-105); POTASSIUM 3.8 MMOL/L (3.6-5.0); SODIUM 138 MMOL/L (135-145); TOTAL PROTEIN 5.6 GM/DL (6.4-8.2)
[2018-12-19] MEDS ORDERED: DICL75TA2 PO (09:04)
[2018-12-19] MEDS ORDERED: TIOT4MIS2 IH (09:11)
[2018-12-19] MEDS ORDERED: NF-XOP-HFA INH (09:11)
--- NOTE | 2018-12-19 09:14 | NUR ---
SPOKE WITH THE PATIENT ABOUT HER MEDICATIONS. SHE HAD A DETAILED LIST WITH HER AND I COMPARED IT WITH THE EXT MED HX.
--- NOTE | 2018-12-19 09:46 | Diagnostic Imaging Report ---
INDICATION: Generalized abdominal pain COMPARISON: CT 12/18/2018 FINDINGS: KUB and upright views of the abdomen demonstrate essentially unchanged moderately distended loops of small bowel throughout the abdomen. There is no free air. Postoperative changes are seen involving the stomach and anterior abdominal wall. Sacral stimulator device is present IMPRESSION: Continued small bowel obstruction versus ileus. No free air. Dictated by: Dictated on workstation # [id number]
[2018-12-19] MEDS: fentaNYL INJECTION 100 MCG/2 ML AMP IV PRN ×2 (10:27→15:15)
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
[2018-12-19] MEDS: HYDROcodone/APAP 7.5 MG/325 MG (LORTAB, LORCET PLUS) TABLET PO PRN (19:58)
[2018-12-19] MEDS: PANTOPRAZOLE 40 MG (PROTONIX) VIAL IV SCH (19:58)
[2018-12-20 00:27] VITALS: BP 99/53
[2018-12-20] MEDS: NS W/KCL 40 MEQ/L 1,000 ML IV SCH ×2 (02:15→10:21)
[2018-12-20 04:00] VITALS: BP 97/64
[2018-12-20] MEDS: CATHETER FLUSH 10 ML SYR IV SCH ×2 (07:47→13:11)
[2018-12-20 08:00] VITALS: BP 118/61
[2018-12-20] MEDS: PANTOPRAZOLE 40 MG (PROTONIX) VIAL IV SCH (08:30)
[2018-12-20 12:00] VITALS: BP 124/65
[2018-12-20] MEDS: HYDROcodone/APAP 7.5 MG/325 MG (LORTAB, LORCET PLUS) TABLET PO PRN (12:12)
[2018-12-20 15:40] VITALS: BP 138/61
--- NOTE | 2018-12-20 16:57 | Progress Note (SOAP) ---
Subjective Date Seen by a Provider: Dec 20, 2018 Time Seen by a Provider: 16:40 Subjective/Events-last exam Patient seen with Dr. Rueda. Patient reports doing better. Denies any N/V as well as no diarrhea. Denies any abdominal pain. Tolerating regular diet and having BMs. Ambulating. Objective Exam Vital Signs Date Time Temp Pulse Resp B/P (MAP) Pulse Ox O2 Delivery O2 Flow Rate FiO2 12/20/18 15:40 98.0 77 20 138/61 (86) 95 Room Air 12/20/18 13:00 79 12/20/18 12:00 96.6 82 18 124/65 (84) 100 Room Air 12/20/18 08:30 Room Air 12/20/18 08:00 98.4 88 18 118/61 (80) 98 Room Air 12/20/18 07:00 81 12/20/18 04:00 97.6 74 18 97/64 (75) 100 Room Air 12/20/18 01:00 72 12/20/18 00:27 97.5 75 20 99/53 (68) 97 Room Air 12/19/18 22:23 72 23 151/77 (101) 97 Room Air 12/19/18 20:07 98.2 97 18 146/70 (95) 97 Room Air 12/19/18 20:05 92 12/19/18 20:00 Nasal Cannula 2.00 I & O 12/20/18 07:00 Intake Total 2972 ml Output Total 2600 ml Balance 372 ml Capillary Refill : Less Than 3 Seconds General Appearance: No Apparent Distress, WD/WN Neck: Full Range of Motion, Normal Inspection, Non Tender, Supple Respiratory: Lungs Clear, Normal Breath Sounds, No Accessory Muscle Use, No Respiratory Distress Cardiovascular: Regular Rate, Rhythm, No Edema Gastrointestinal: normal bowel sounds, non tender, soft Extremity: Normal Capillary Refill, Normal Inspection, Normal Range of Motion Neurologic/Psychiatric: Alert, Oriented x3 Skin: Normal Color, Warm/Dry Assessment/Plan Assessment/Plan Assess & Plan/Chief Complaint A 53 year old female with N/V and diarrhea most likely secondary to gastroenteritis. VSS. Patient tolerating diet and ambulating. Symptoms resolved. Will DC home. Clinical Quality Measures DVT/VTE Risk/Contraindication: Risk Factor Score Per Nursin RFS Level Per Nursing on Admit: 4+=Very High SUSAN MURRAY CRAFT ARTIST Dec 20, 2018 16:57
[2018-12-20] MEDS ORDERED: HYDR-3816 PO (17:36)
--- NOTE | 2018-12-20 17:36 | Discharge Inst-Surgical ---
D/C Lap Instructions-KIDO New, Converted, or Re-Newed RX: RX on Chart Follow Up Appt PRN Activity as tolerated No driving while on pain medications Incentive Spirometry use every 2 hours while awake Resume phase III high protein, low carb diet. High Fiber Diet 25g or more per day Avoid Alcohol, Caffeine, Spicy [place] and Acid foods. Drink 64 fluid oz or more of fluids per day. Symptoms to Report: Fever over 101 degree F, Nausea/Vomiting If any problems/questions: Contact your physician or go to Emergency Room SUSAN MURRAY APRN Dec 20, 2018 17:16
--- NOTE | 2018-12-21 15:48 | Physician Query-Final Dx ---
ANGEL SURESH 12/21/18 1548: Final Diagnosis Give Final Diagnosis Please give Final Diagnosis MATIDLE ADAMS MD 12/22/18 1207: Final Diagnosis Give Final Diagnosis nausea, vomiting, diarrhea, dehydration ANGEL SURESH Dec 21, 2018 15:48 MATILDE ADAMS MD Dec 22, 2018 12:07
== END 2018-12-20 17:50 | disposition home or self-care (01) ==
LOC: EDUNIT# 16:31 → ER 16:32 → 4TH 19:19
PROVIDERS: ADMIT Surgery; ATTEND Surgery
DX: K52.9 Noninfective gastroenteritis and colitis, unspecified (principal); G47.33 Obstructive sleep apnea (adult) (pediatric); F41.9 Anxiety disorder, unspecified; F32.9 Major depressive disorder, single episode, unspecified; R60.0 Localized edema; M19.91 Primary osteoarthritis, unspecified site; E78.00 Pure hypercholesterolemia, unspecified; E66.01 Morbid (severe) obesity due to excess calories; I10 Essential (primary) hypertension; K21.9 Gastro-esophageal reflux disease without esophagitis; K59.09 Other constipation; M79.7 Fibromyalgia; N28.9 Disorder of kidney and ureter, unspecified; Z79.899 Other long term (current) drug therapy; Z88.5 Allergy status to narcotic agent; Z80.3 Family history of malignant neoplasm of breast; Z80.1 Family history of malignant neoplasm of trachea, bronchus and lung; Z86.711 Personal history of pulmonary embolism; Z68.41 Body mass index [BMI] 40.0-44.9, adult
CPT/HCPCS: 36415; 74019; 74176; 80053; 83690; 85007; 85025; 85027; 96361; 96374; 96375

== ENCOUNTER 2019-01-22 17:07 | Observation (INO) | payer BC ==
[~2019-01-22] VITALS: Ht 162.6 cm; Wt 102.1 kg
[~2019-01-22 17:07] MED LIST changes: +DICL75TA2 PO; +HYDR-3816 PO; +NF-XOP-HFA INH; +TIOT4MIS2 IH
--- OUTSIDE RECORDS SUMMARY | 2019-01-22 17:17 | XMS REPORT ---
Author Author Sean Marie [facility] Address [address] [place], [place] [id number] Care Team Providers Care [employer] Name Role Phone Sean Marie PCP Sean [...] AM EKG (12-lead electrocardiogram) 06/26/2013 12:[address] ABD AND PELVIS W/CONTRAST 12/18/2018 12:00 AM C difficile (EIA) 12/31/2018 12:00 AM Stool culture 12/31/2018 12:00 AM Ova + parasites stool 12/31/2018 12:00 AM Fecal leukocyte detection 12/31/2018 12:00 AM Fecal occult blood test 12/31/2018 12:00 AM fibromyalgia, RLS EKG (12-lead electrocardiogram) 04/01/2015 12:00 AM Medications Active Name Start Date Estimated Completion Date SIG Comments Xopenex HFA 45 mcg/actuation inhalation HFA aerosol [...] by oral route 2 times per day aripiprazole 5 mg oral tablet 05/14/2018 TAKE 1 TABLET BY MOUTH ONCE DAILY nystatin 100,000 unit/gram topical cream 07/20/2018 apply to the affected area(s) by topical route 3 times per day 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 Thyroid 60 mg oral tablet 08/06/2018 [...] TAKE 1 TABLET BY MOUTH AT BEDTIME Xifaxan 550 mg oral tablet 12/26/2018 01/09/2019 take 1 tablet (550 mg) by oral route 3 times per day for 14 days Name [...] 3 times a day for 5 days prednisone 20 mg oral tablet 05/03/2013 [...] oral route once daily for 4 days Keflex 500 mg oral capsule 10/22/2014 [...] 30 days lamotrigine 100 mg oral tablet 10/30/2017 10/30/2017 [...] by oral route 2 times per day Isabela Thyroid 60 mg oral tablet 12/02/2013 take 1 tablet by oral route daily for 30 days Isabela Thyroid 60 mg oral tablet 04/07/2014 TAKE ONE TABLET BY MOUTH ONCE DAILY milk thistle oral 11/24/2014 chromium picolinate oral 06/09/2014 Zofran ODT oral 10/09/2015 Dexilant 60 mg oral capsule,biphase delayed releas 07/09/2014 11/24/2014 TAKE ONE CAPSULE BY MOUTH EVERY DAY Isabela Thyroid 60 mg oral tablet 08/04/2014 TAKE [...] by oral route once daily at bedtime [place] 5-325 mg oral tablet 08/22/2014 11/24/2014 take [...] by topical route 2 times per day Isabela Thyroid 60 mg oral tablet 07/13/2015 TAKE [...] daily in the morning for 30 days Isabela Thyroid 60 mg oral tablet 07/11/2016 08/09/2017 [...] route once daily with the evening meal [place] 10-325 mg oral tablet 01/19/2018 04/30/2018 take [...] HC BMI BSA BMI Percentile O2 Sat(%) 12/31/2018 2:52:00 PM 132 mmHg 70 mmHg 104 bpm 14 rpm 97.3 F 226 lbs 64 in 38.7924 kg/m 2.1515 m 98 % 12/26/2018 10:41:00 AM 130 mmHg 74 mmHg 82 bpm 18 rpm 98.6 F 232.25 lbs 64 in 39.87 kg/m2 2.18 m2 98 % 12/18/2018 9:48:00 AM 112 mmHg 62 mmHg [...] Rare Lives with spouse Tobacco Never smoker 12/26/2018 - History of Procedures Date Ordered Description Order Status 08/25/2015 12:00 AM Decadron, Per 1 Mg [facility]# [id number] Reviewed 08/25/2015 12:00 AM Depo-Medrol, Per 80 Mg [facility]#[id number] Reviewed 08/25/2015 12:00 AM Rocephin 1 gram [facility]#[id number] Reviewed 10/09/2015 12:00 AM COMPLETE CBC W/AUTO DIFF WBC Reviewed 10/09/2015 12:00 AM COMPREHEN METABOLIC PANEL Reviewed 10/09/2015 12:00 AM GLYCOSYLATED HEMOGLOBIN TEST Reviewed 10/09/2015 12:00 AM ASSAY THYROID STIM HORMONE Reviewed 11/03/2015 8:54 AM URINALYSIS AUTO W/O SCOPE Reviewed 11/03/2015 12:[address] HEAD/BRAIN W/O & W/DYE Reviewed 11/17/2015 12:00 AM Rocephin 1 gram [facility]#[id number] Reviewed 08/05/2011 12:00 AM CHEST X-RAY 2VW FRONTAL&LATL Reviewed 12/09/2015 12:00 AM THER/PROPH/DIAG INJ SC/IM Reviewed 12/09/2015 12:00 AM Rocephin 1 gram [facility]#[id number] Reviewed 11/08/2011 12:00 AM Decadron Inj. per 1mg-[facility] [id number] Reviewed 11/08/2011 12:00 AM Depo-Medrol 80 Mg [facility] [id number] Reviewed 05/20/2016 12:00 AM COMPLETE CBC W/AUTO [...] 1 Mg [facility]# [id number] Reviewed 10/30/2012 12:00 AM COMPLETE CBC W/AUTO [...] 1 Mg [facility]# [id number] Reviewed 01/08/2013 12:00 AM Rocephin 1 gram [facility]#[id number] Reviewed 01/08/2013 12:00 AM COMPREHEN METABOLIC PANEL [...] 1 Mg [facility]# [id number] Reviewed 02/27/2013 12:00 AM Depo-Medrol, Per 80 Mg [facility]#[id number] Reviewed 03/04/2013 12:00 AM MAMMOGRAM SCREENING Reviewed 03/05/2013 12:00 AM CYTOPATH TBS C/V MANUAL Reviewed 03/05/2013 12:00 AM MAMMOGRAM BOTH BREASTS Reviewed 03/27/2013 12:00 AM THER/PROPH/DIAG INJ SC/IM Reviewed 03/27/2013 12:00 AM Bicillin CR, 1.2 million units [facility]# [id number] Reviewed 07/20/2018 12:00 AM X-RAY EXAM OF [...] COMPREHEN METABOLIC PANEL Returned 12/18/2018 12:00 AM RADEX ABDOMEN COMPL W/DCBTS&/ERC VIEWS Returned 12/18/2018 12:00 AM ASSAY OF LIPASE Returned 08/09/2013 12:00 AM THER/PROPH/DIAG INJ SC/IM Reviewed 08/09/2013 12:00 AM Decadron, Per 1 Mg [facility]# [id number] Reviewed 08/09/2013 12:00 AM Depo-Medrol, Per 80 Mg [facility]#[id number] Reviewed 08/21/2013 12:00 AM X-RAY EXAM OF [...] 1 gram [facility]#[id number] Reviewed 04/01/2015 12:00 AM COMPLETE CBC W/AUTO DIFF WBC Reviewed 04/01/2015 12:00 AM COMPREHEN METABOLIC PANEL Reviewed 04/01/2015 12:00 AM ASSAY THYROID STIM HORMONE Reviewed 04/01/2015 12:00 AM CHEST X-RAY 2VW FRONTAL&LATL Reviewed 05/07/2015 12:00 AM THER/PROPH/DIAG INJ SC/IM Reviewed 05/07/2015 12:00 AM Decadron injection Reviewed 05/07/2015 12:00 AM Depo-Medrol 40mg Reviewed 05/11/2011 12:00 AM Depo-Medrol 80 Mg [facility] [id number] Reviewed 05/11/2011 12:00 AM Decadron Inj. per 1mg-[facility] [id number] Reviewed Results Summary Date and Description Results [...] Vis Given Vis Pub CVX Tdap 04/26/2012 [employer] SKB ADACEL [id number] Intramuscular Left Arm 04/26/2012 08/19/2008 115 Tdap 03/14/2014 [employer] SKB BOOSTRIX [id number] Intramuscular Left Deltoid 03/14/2014 02/07/2013 115 Influenza 06/22/2015 [employer] Pamela. NOV FLUVIRIN [id number] Intramuscular Left Deltoid 06/23/2015 05/08/2015 140 Pneumococcal 09/16/2015 Not Entered NE PNEUMOVAX 23 Intramuscular Not Entered 11/11/2016 10/02/2018 33 Influenza 07/07/2017 sanofi pasteur PMC Fluzone Quadrivalent [id number] Intramuscular Left Deltoid 07/07/2017 05/08/2015 150 History [...] 2018 3:10PM Diarrhea Dec 18 2018 3:10PM IBS (irritable bowel syndrome) Dec 26 2018 10:43AM Gastroenteritis Dec 26 2018 10:43AM Gastroenteritis Dec 31 2018 2:59PM Payers Insurance Name Company Name Plan Name Plan Number Policy Number Policy Group Number Start Date [facility] [id number] N/A [employer] Alex 100 PERCENT Tuesday, November 21, 2017 [employer] Alex 100 percent Tuesday, November 21, 2017 [employer] [place] [id number] Friday, October 02, 2009 [employer] [place] [id number] November State Self Insurance Fund *INVALID State Self Insurance [id number] N /A State Self Insurance Fund *INVALID State Self Insurance [id number] N /A [employer] [place] [id number] July [employer] [place] [id number] September History of Encounters Visit Date Visit Type Provider 12/31/2018 Office visit Sean Marie MD 12/26/2018 Office visit Sean Marie MD 12/18/2018 Office visit Kiarra Ramos INSURANCE AGENT 11/01/2018 Office visit Sean Marie MD 10/16/2018 Office visit Sean Marie MD 08/13/2018 Office visit Aurora Martin INSURANCE AGENT 08/12/2018 Office visit Aurora Martin INSURANCE AGENT 07/25/2018 [facility] Michelle Greco MD 07/20/2018 Office visit [...] Marie MD 04/23/2017 Office visit Aurora Martin INSURANCE AGENT 04/14/2017 Office visit Sean Marie MD 03/20/2017 Office visit Sean Marie MD 03/03/2017 Office visit Aurora Mcbride Mario INSURANCE AGENT 01/09/2017 Office visit Sean Marie MD 01/02/2017 [...] Marie MD 01/16/2016 Office visit Jania Stanley INSURANCE AGENT 01/07/2016 Hospital Michelle Greco MD 12/31/2015 Office visit Sean Marie MD 12/09/2015 Office visit Miguel A Munoz INSURANCE AGENT 11/17/2015 Office visit Sean Marie MD 11/03/2015 Office visit Sean Marie MD 10/09/2015 Office visit 10/09/2015 Office visit Sean Marie MD 08/31/2015 Office visit Sean Marie MD 08/25/2015 Office visit Sean Marie MD 06/05/2015 Office visit Sean Marie MD 05/07/2015 Office visit Amaris Gentile INSURANCE AGENT 05/06/2015 Office visit Kiarra Ramos INSURANCE AGENT 04/01/2015 Office visit 04/01/2015 Office visit Sean Marie MD 04/01/2015 Hospital Michelle Greco MD 03/26/2015 Office visit Sean Marie MD 03/19/2015 Office visit Sean Marie MD 02/13/2015 Office visit Sean Marie MD 01/26/2015 Office visit Leena Haddad INSURANCE AGENT 01/12/2015 Office visit Sean Marie MD 11/24/2014 Office visit Kiarra Ramos INSURANCE AGENT 10/22/2014 Office visit Miguel A Munoz INSURANCE AGENT 08/22/2014 Office visit Sean Marie MD 08/01/2014 Office visit Sean Marie MD 06/09/2014 Office visit Kiarra Ramos INSURANCE AGENT 03/14/2014 Office visit Leena Haddad INSURANCE AGENT 02/27/2014 Office visit Leena Mona Boo INSURANCE AGENT 12/02/2013 Office visit Sean Marie MD 11/25/2013 Office visit Sean Marie MD 11/14/2013 Office visit Kiarra Ramos INSURANCE AGENT 08/21/2013 Office visit Leena Haddad INSURANCE AGENT 08/09/2013 Office visit Kiarra Ramos INSURANCE AGENT 06/26/2013 Hospital Michelle Greco MD 06/26/2013 Office visit Sean Marie MD 06/21/2013 Office visit Kiarra Ramos INSURANCE AGENT 05/31/2013 Office visit Leena Haddad INSURANCE AGENT 05/10/2013 Office visit Leena Haddad INSURANCE AGENT 05/03/2013 Office visit Leena Dunn Boo INSURANCE AGENT 03/27/2013 Office visit Kiarra Ramos INSURANCE AGENT 03/05/2013 Office visit Kiarra Ramos INSURANCE AGENT 02/27/2013 Office visit Kiarra Ramos INSURANCE AGENT 01/08/2013 Office visit Sean Marie MD 10/30/2012 Office visit Sean Marie MD 04/26/2012 Nurse visit Maria Antonia Barakat INSURANCE AGENT 02/07/2012 Office visit Sean Marie MD 02/07/2012 [facility] Michelle Greco MD 12/13/2011 Office visit Sean Marie MD 11/08/2011 Office visit Sean Marie MD 10/24/2011 Office visit Sean Marie MD 08/05/2011 Office visit Sean Marie MD 07/12/2011 Office visit Kiarra Ramos INSURANCE AGENT 05/11/2011 Office visit Sean Marie MD 04/19/2011 [...]
--- OUTSIDE RECORDS SUMMARY | 2019-01-22 17:19 | XMS REPORT ---
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 DISPLAY [employer]KER Thyroid 60 mg oral tablet 08/06/2018 TAKE [...] by oral route 2 times per day [place] Thyroid 60 mg oral tablet 12/02/2013 take 1 tablet by oral route daily for 30 days [place] Thyroid 60 mg oral tablet 04/07/2014 TAKE ONE TABLET BY MOUTH ONCE DAILY milk thistle oral 11/24/2014 chromium picolinate oral 06/09/2014 Zofran ODT oral 10/09/2015 Dexilant 60 mg oral capsule,biphase delayed releas 07/09/2014 11/24/2014 TAKE ONE CAPSULE BY MOUTH EVERY DAY [place] Thyroid 60 mg oral tablet 08/04/2014 TAKE [...] by oral route once daily at bedtime [place] 5-325 mg oral tablet 08/22/2014 11/24/2014 take [...] by mouth at bedtime. for 90 days [place] Cambogia 200-500 mcg-mg oral tablet 10/09/2015 triamcinolone acetonide 0.1 % topical cream 05/06/2015 10/09/2015 apply a thin layer to the affected area(s) by topical route 2 times per day [place] Thyroid 60 mg oral tablet 07/13/2015 TAKE [...] daily in the morning for 30 days [place] Thyroid 60 mg oral tablet 07/11/2016 08/09/2017 [...] route once daily with the evening meal [place] 10-325 mg oral tablet 01/19/2018 04/30/2018 take [...] HC BMI BSA BMI Percentile O2 Sat(%) 12/26/2018 10:41:00 AM 130 mmHg 74 mmHg 82 bpm 18 rpm 98.6 F 232.25 lbs 64 in 39.8652 kg/m 2.1811 m 98 % 12/18/2018 9:48:00 AM 112 mmHg 62 mmHg 101 bpm 18 rpm 97.7 F 233 lbs 64 in 39.99 kg/m2 2.18 m2 98 % 11/01/2018 8:31:00 AM 130 mmHg [...] 08/25/2015 12:00 AM Decadron, Per 1 Mg [facility]# [address]-08 Reviewed 08/25/2015 12:00 AM Depo-Medrol, Per 80 Mg [facility]#[address]-82 Reviewed 08/25/2015 12:00 AM Rocephin 1 gram [facility]#3318-4365-49 Reviewed 10/09/2015 12:00 AM COMPLETE CBC W/AUTO DIFF WBC Reviewed 10/09/2015 12:00 AM COMPREHEN METABOLIC PANEL Reviewed 10/09/2015 12:00 AM GLYCOSYLATED HEMOGLOBIN TEST Reviewed 10/09/2015 12:00 AM ASSAY THYROID STIM HORMONE Reviewed 11/03/2015 8:54 AM URINALYSIS AUTO W/O SCOPE Reviewed 11/03/2015 12:[address] HEAD/BRAIN W/O & W/DYE Reviewed 11/17/2015 12:00 AM Rocephin 1 gram [facility]#1266-2466-41 Reviewed 08/05/2011 12:00 AM CHEST X-RAY 2VW FRONTAL&LATL Reviewed 12/09/2015 12:00 AM THER/PROPH/DIAG INJ SC/IM Reviewed 12/09/2015 12:00 AM Rocephin 1 gram [facility]#7751-1405-07 Reviewed 11/08/2011 12:00 AM Decadron Inj. per 1mg-[facility][Note 3] [id number] Reviewed 11/08/2011 12:00 AM Depo-Medrol 80 Mg [facility] [id number] Reviewed 05/20/2016 12:00 AM COMPLETE CBC W/AUTO [...] 10/30/2012 12:00 AM Decadron, Per 1 Mg [facility]# [address]-71 Reviewed 10/30/2012 12:00 AM COMPLETE CBC W/AUTO [...] 01/08/2013 12:00 AM Decadron, Per 1 Mg [facility]# [address]-32 Reviewed 01/08/2013 12:00 AM Rocephin 1 gram [facility]#0870-3309-50 Reviewed 01/08/2013 12:00 AM COMPREHEN METABOLIC PANEL [...] 02/27/2013 12:00 AM Decadron, Per 1 Mg [facility]# [address]-80 Reviewed 02/27/2013 12:00 AM Depo-Medrol, Per 80 Mg [facility]#1724-8551-82 Reviewed 03/04/2013 12:00 AM MAMMOGRAM SCREENING Reviewed 03/05/2013 12:00 AM CYTOPATH TBS C/V MANUAL Reviewed 03/05/2013 12:00 AM MAMMOGRAM BOTH BREASTS Reviewed 03/27/2013 12:00 AM THER/PROPH/DIAG INJ SC/IM Reviewed 03/27/2013 12:00 AM Bicillin CR, 1.2 million units [facility]# 65145-364-16 Reviewed 07/20/2018 12:00 AM X-RAY EXAM OF [...] 08/09/2013 12:00 AM Decadron, Per 1 Mg [facility]# [address]-51 Reviewed 08/09/2013 12:00 AM Depo-Medrol, Per 80 Mg [facility]#9076-0853-08 Reviewed 08/21/2013 12:00 AM X-RAY EXAM OF [...] Reviewed 03/26/2015 12:00 AM Rocephin 1 gram [facility]#7392-7599-72 Reviewed 04/01/2015 12:00 AM COMPLETE CBC W/AUTO DIFF WBC Reviewed 04/01/2015 12:00 AM COMPREHEN METABOLIC PANEL Reviewed 04/01/2015 12:00 AM ASSAY THYROID STIM HORMONE Reviewed 04/01/2015 12:00 AM CHEST X-RAY 2VW FRONTAL&LATL Reviewed 05/07/2015 12:00 AM THER/PROPH/DIAG INJ SC/IM Reviewed 05/07/2015 12:00 AM Decadron injection Reviewed 05/07/2015 12:00 AM Depo-Medrol 40mg Reviewed 05/11/2011 12:00 AM Depo-Medrol 80 Mg [facility] [id number] Reviewed 05/11/2011 12:00 AM Decadron Inj. per 1mg-[facility][Note 3] [id number]-Iffhuzxar Reviewed Results Summary Date and Description Results [...] Of Immunizations Name Date Admin Mfg Name Mf Code Trade Name Lot# Route Inj Vis Given Vis Pub CVX Tdap 04/26/2012 GlaxFlowgram SKB ADACEL [id number] Intramuscular Left Arm 04/26/2012 08/19/2008 115 Tdap 03/14/2014 GlaxFlowgram SKB BOOSTRIX [id number] Intramuscular Left Deltoid 03/14/2014 02/07/2013 115 Influenza 06/22/2015 AorTx Pamela. NOV FLUVIRIN [id number] Intramuscular Left Deltoid 06/23/2015 05/08/2015 140 Pneumococcal 09/16/2015 Not Entered NE PNEUMOVAX 23 Intramuscular Not Entered 11/11/2016 10/02/2018 33 Influenza 07/07/2017 [facility] Fluzone Quadrivalent [id number] Intramuscular Left Deltoid 07/07/2017 05/08/2015 150 History [...] 2018 10:43AM Gastroenteritis Dec 26 2018 10:43AM Payers Insurance Name Company Name Plan Name Plan Number Policy Number Policy Group Number Start Date [employer] [place] [id number] N/A [employer] Financial Assistance [employer] 100 PERCENT Tuesday, November 21, 2017 [employer] 100 percent Tuesday, November 21, 2017 [employer] [place] [id number] Friday, October 02, 2009 [employer] [place] [id number] November State Self Insurance Fund *INVALID State Self Insurance [id number] N /A State Self Insurance Fund *INVALID State Self Insurance [id number] N /A [employer] [place] [id number] July [employer] [place] [id number] September History of Encounters Visit Date Visit Type Provider 12/26/2018 Office visit Sean Marie MD 12/18/2018 Office visit Kiarra Richard [employer]ER HOUSEKEEPING 11/01/2018 Office visit Sean Marie MD 10/16/2018 Office visit Sean Marie MD 08/13/2018 Office visit Aurora Martin [employer] 08/12/2018 Office visit Aurora Martin [employer] HOUSEKEEP[employer] 07/25/2018 [facility] Michelle Greco MD 07/20/2018 Office visit Sean Marie MD 05/22/2018 Office visit Sean Marie MD 04/30/2018 Office visit Sean Marie MD 04/11/2018 Office visit Fredis Rico DO 03/29/2018 Office visit Sean Marie MD 03/09/2018 Office visit Saen Marie MD 02/28/2018 Office visit Fredis Rico [...] Marie MD 04/23/2017 Office visit Aurora Martin [employer]KEEP[employer] 04/14/2017 Office visit Sean Marie MD 03/20/2017 Office visit Sean Marie MD 03/03/2017 Office visit Aurora Martin [employer] 01/09/2017 Office visit Sean Marie MD 01/02/2017 [...] Marie MD 01/16/2016 Office visit Jania Stanley [employer]KEEP[employer] 01/07/2016 Hospital Michelle Greco MD 12/31/2015 Office visit Sean Marie MD 12/09/2015 Office visit Miguel A Munoz [employer] 11/17/2015 Office visit Sean Marie MD 11/03/2015 Office visit Sean Marie MD 10/09/2015 Office visit 10/09/2015 Office visit Sean Marie MD 08/31/2015 Office visit Sean Marie MD 08/25/2015 Office visit Sean Marie MD 06/05/2015 Office visit Sean Marie MD 05/07/2015 Office visit Amaris Gentile [employer] 05/06/2015 Office visit Kiarra Ramos [employer]KEEP[employer] 04/01/2015 Office visit 04/01/2015 Office visit Sean Marie MD 04/01/2015 Hospital Michelle Greco MD 03/26/2015 Office visit Sean Marie MD 03/19/2015 Office visit Sean Marie MD 02/13/2015 Office visit Sean Marie MD 01/26/2015 Office visit Leena Haddad [employer] HOU[employer] 01/12/2015 Office visit Sean Marie MD 11/24/2014 Office visit Kiarra Ramos [employer] HOU[employer]KEEPING 10/22/2014 Office visit Miguel A Munoz [employer] HOU[employer]KEEPING 08/22/2014 Office visit Sean Marie MD 08/01/2014 Office visit Sean Marie MD 06/09/2014 Office visit Kiarra Ramos [employer] HOUSEKEEPING 03/14/2014 Office visit Leena Haddad [employer] HOU[employer]KEEPING 02/27/2014 Office visit Leena Haddad CLE[employer] HOUSEKEEPING 12/02/2013 Office visit Sean Marie MD 11/25/2013 Office visit Sean Marie MD 11/14/2013 Office visit Kiarra Ramos [employer] HOU[employer]KEEPING 08/21/2013 Office visit Leena Haddad CLE[employer]ER HOU[employer]KEEPING 08/09/2013 Office visit Kiarra Ramos CLE[employer]ER HOUSEKEEPING 06/26/2013 Hospital Michelle Greco MD 06/26/2013 Office visit Sean Marie MD 06/21/2013 Office visit Kiarra Ramos [employer] HOU[employer]KEEPING 05/31/2013 Office visit Leena Haddad CLE[employer]ER HOUSEKEEPING 05/10/2013 Office visit Leena Haddad CLE[employer]ER HOUSEKEEPING 05/03/2013 Office visit Leena Haddad CLE[employer]ER HOU[employer]KEEPING 03/27/2013 Office visit Kiarra Ramos [employer] HOU[employer]KEEPING 03/05/2013 Office visit Kiarra Ramos [employer]ER HOUSEKEEPING 02/27/2013 Office visit Kiarra Ramos [employer] HOU[employer]KEEPING 01/08/2013 Office visit Sean Marie MD 10/30/2012 Office visit Sean Marie MD 04/26/2012 Nurse visit Maria Antonia Barakat [employer]KEEP[employer] 02/07/2012 Office visit Sean Marie MD 02/07/2012 [facility] Marcela Greco MD 12/13/2011 Office visit Sean Marie MD 11/08/2011 Office visit Sean Marie MD 10/24/2011 Office visit Sean Marie MD 08/05/2011 Office visit Sean Marie MD 07/12/2011 Office visit Kiarra Ramos [employer]KEEPING 05/11/2011 Office visit Sean Marie MD 04/19/2011 [...]
--- NOTE | 2019-01-22 17:50 | NUR ---
PT COMPLAINS OF NAUSEA AND PAIN AND REQUESTS SOMETHING FOR NAUSEA. LULU NOTIFIED.
[2019-01-22 17:51] LABS: BASOPHILS % (AUTO) 0 % (0-10); EOSINOPHILS % (AUTO) 0 % (0-10); HEMATOCRIT 46 % (35-52); HEMOGLOBIN 14.2 G/DL (11.5-16.0); LYMPHOCYTES # (AUTO) 0.9 X 10^3 (1.0-4.0); LYMPHOCYTES % (AUTO) 14 % (12-44); MEAN CORPUSCULAR HEMOGLOBIN 25 PG (25-34); MEAN CORPUSCULAR HGB CONC 31 G/DL (32-36); MEAN CORPUSCULAR VOLUME 80 FL (80-99); MEAN PLATELET VOLUME 10.3 FL (7.4-10.4); MONOCYTES # (AUTO) 0.9 X 10^3 (0.0-1.0); MONOCYTES % (AUTO) 14 % (0-12); NEUTROPHILS # (AUTO) 4.6 X 10^3 (1.8-7.8); NEUTROPHILS % (AUTO) 73 % (42-75); PLATELET COUNT 385 10^3/uL (130-400); RED CELL DISTRIBUTION WIDTH 17.7 % (10.0-14.5); WHITE BLOOD COUNT 6.3 10^3/uL (4.3-11.0)
[2019-01-22] MEDS ORDERED: ONDANSETRON 4 MG/2 ML (SDV) Z0FRAN IVP ONE (18:00)
[2019-01-22 18:11] LABS: ALANINE AMINOTRANSFERASE 22 U/L (0-55); ALBUMIN 4.3 GM/DL (3.2-4.5); ALKALINE PHOSPHATASE 113 U/L (40-136); AMYLASE 9 U/L (25-125); BILIRUBIN,TOTAL 0.7 MG/DL (0.1-1.0); BUN/CREATININE RATIO 27; CALCIUM 10.5 MG/DL (8.5-10.1); CARBON DIOXIDE 33 MMOL/L (21-32); CHLORIDE 101 MMOL/L (98-107); CREATININE SERUM 0.83 MG/DL (0.60-1.30); GFR ESTIMATED > 60; GLUCOSE 143 MG/DL (70-105); LIPASE 6 U/L (8-78); POTASSIUM 3.9 MMOL/L (3.6-5.0); SODIUM 145 MMOL/L (135-145); TOTAL PROTEIN 7.9 GM/DL (6.4-8.2)
--- NOTE | 2019-01-22 18:11 | NUR ---
UP TO BATHROOM ET ASSISTED BY .
[2019-01-22] MEDS ORDERED: fentaNYL INJECTION 100 MCG/2 ML AMP IVP ONE (18:15)
[2019-01-22 18:29] LABS: CLARITY,URINE SLIGHTLY CLOUDY; COLOR,URINE AMBER; GLUCOSE, URINE (UA) NEGATIVE (NEGATIVE); KETONES,URINE 3+ (NEGATIVE); LEUKOCYTE ESTERASE ,URINE NEGATIVE (NEGATIVE); NITRITE,URINE NEGATIVE (NEGATIVE); PH,URINE 6 (5-9); PROTEIN,URINE 2+ (NEGATIVE); UROBILINOGEN,URINE 4 MG/DL (NORMAL)
[2019-01-22] MEDS ORDERED: NS IV 1000 ML 1,000 ML IV SCH (18:30)
[2019-01-22] MEDS ORDERED: HOLD METFORMIN - RECEIVED CONTRAST 20 ML VIAL IV SCH (18:30)
[2019-01-22] MEDS ORDERED: IOHEXOL 350 MG/ML 100 ML (OMNIPAQUE 350) VIAL IV ONE (18:30)
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
[2019-01-22 18:48] LABS: BACTERIA,URINE FEW /HPF; BILIRUBIN,URINE 1+ (NEGATIVE); WBC,URINE 0-2 /HPF
--- NOTE | 2019-01-22 18:52 | NUR ---
REPORT AND CARE TURNED OVER TO SOFI.
--- NOTE | 2019-01-22 18:53 | Diagnostic Imaging Report ---
PROCEDURE: CT abdomen and pelvis with contrast. TECHNIQUE: Multiple contiguous axial images were obtained through the abdomen and pelvis after administration of intravenous contrast. Auto Exposure Controls were utilized during the CT exam to meet ALARA standards for radiation dose reduction. INDICATION: Abdominal pain with nausea, vomiting and constipation for 7 days. CORRELATION is made with prior CT from 12/18/2018. FINDINGS: Imaging through the lung bases does show airspace infiltrate in the left lower lobe. There may be minimal infiltrate in the right lower lobe, as well. No discrete liver mass is identified. Gallbladder is surgically absent. No biliary ductal dilatation is seen. The pancreas and spleen are unremarkable. No adrenal mass is identified. The kidneys appear stable. Low-density lesion in posterior left kidney is stable and consistent with a cyst. Aorta is non-aneurysmal. Postop changes midline abdominal wall are seen. There is contrast throughout small and large bowel loops which are moderately distended. However, no focal small bowel transition is identified. There is a segment of luminal narrowing involving the sigmoid colon, indeterminate. There is no ascites. The no free air, or fluid collection is identified. The bladder is decompressed. IMPRESSION: 1. Bilateral lower lobe pulmonary infiltrates, left greater. This maybe owing to pneumonia. 2. Diffuse small and large bowel distention. Only potential transition is in the region of the sigmoid colon. This could be owing to an incomplete distention or focal contraction but other etiologies cannot be entirely occluded. Endoscopy may be useful for further evaluation. 3. The remainder of the study is unremarkable. Dictated by: Dictated on workstation # [id number]
[2019-01-22 18:58] VITALS: BP 174/65
--- OUTSIDE RECORDS SUMMARY | 2019-01-22 19:29 | XMS REPORT | Continuity of Care Document ---
Author Organization Unknown Address Unknown Allergies There is no data. Medications Medication Packaging Start Date Stop Date Route Dosage Sig XOPENEX Vial 04/03/2018 1.25 mg/3 mL SAVELLA Dose Pack 04/03/2018 04/30/2018 12.5 mg (5)-25 mg(8)-50 mg(42) CETIRIZINE HCL Tablet 04/03/2018 10 mg ALPRAZOLAM Tablet 04/03/2018 0.25 mg TIZANIDINE HCL Tablet 04/03/2018 4 mg SAVELLA Unspecified 04/30/2018 06/26/2018 12.5 mg (5)-25 mg(8)-50 mg(42) SAVELLA Tablet 05/02/2018 06/26/2018 50 mg SAVELLA Tablet 06/26/2018 01/14/2019 100 mg GABAPENTIN Capsule 08/06/2018 08/27/2018 300 mg GABAPENTIN Tablet 08/27/2018 12/03/2018 800 mg GABAPENTIN Tablet 12/03/2018 800 mg SAVELLA Tablet 01/14/2019 100 mg Problems Date Dx Coded Attending Type Code Diagnosis Diagnosed By 04/03/2018 Carolina Barry M79.7 Fibromyalgia 04/10/2018 Carolina Barry M79.7 Fibromyalgia 08/06/2018 Carolina Barry M79.7 Fibromyalgia 08/13/2018 Carolina Barry M79.7 Fibromyalgia Procedures Code [place] [address] OFFICE/OUTPATIENT VISIT NEW 04/03/2018 12407 OFFICE/OUTPATIENT VISIT EST 08/06/2018 Results There is no data. Encounters ACCT No. Visit Date/Time Discharge Status Pt. Type Provider Facility Loc./Unit Complaint [id number] 12/31/2018 15:08:25 12/31/2018 23:59:59 [facility] Outpatient Sean Marie [id number] 12/26/2018 10:50:32 12/26/2018 23:59:59 [facility] Outpatient Sean Marie [id number] 12/18/2018 10:41:21 12/18/2018 23:59:59 [facility] Outpatient Kiarra Ramos [id number] 11/01/2018 09:26:26 11/01/2018 23:59:59 [facility] Outpatient Sean Marie [id number] 10/16/2018 14:31:29 10/16/2018 23:59:59 [facility] Outpatient DaniellalingSean alves [id number] 09/27/2018 16:17:35 09/27/2018 23:59:59 [facility] Outpatient Michelle Greco Sean [id number] 08/13/2018 13:49:27 08/13/2018 23:59:59 [facility] Outpatient Aurora Martin [id number] 08/12/2018 13:55:43 08/12/2018 23:59:59 C[facility] Outpatient Aurora Martin [id number] 07/20/2018 16:46:18 07/20/2018 23:59:59 [facility] Outpatient Sean Marie [id number] 04/11/2018 13:52:57 04/11/2018 23:59:59 [facility] Outpatient Jacky Fredis [id number] 03/29/2018 15:19:47 03/29/2018 23:59:59 [facility] Outpatient DaniellalingSean alves [id number] 03/09/2018 09:51:30 03/09/2018 23:59:59 [facility] Outpatient DaniellalingSean alves [id number] 02/28/2018 08:52:38 02/28/2018 23:59:59 C[facility] Outpatient Rico Fredis [id number] 01/29/2018 17:36:47 01/29/2018 23:59:59 CLS Outpatient PattonLaine [id number] 01/19/2018 11:26:07 01/19/2018 23:59:59 [facility] Outpatient DaniellalingSean alves [id number] 10/27/2017 10:00:45 10/27/2017 23:59:59 CLS Outpatient Jacky Fredis [id number] 10/23/2017 09:29:56 10/23/2017 23:59:59 CLS Outpatient DaniellalingSean alves [id number] 09/20/2017 12:18:44 09/20/2017 23:59:59 CLS Outpatient Jacky Fredis [id number] 08/31/2017 15:49:06 08/31/2017 23:59:59 CLS Outpatient Fredis Rico [id number] 08/09/2017 10:08:51 08/09/2017 23:59:59 CLS Outpatient HetlingerSean [id number] 07/07/2017 09:35:41 07/07/2017 23:59:59 CLS Outpatient HetlingerSean [id number] 06/16/2017 11:07:00 06/16/2017 23:59:59 CLS Outpatient HetlingerSean [id number] 05/15/2017 09:46:10 05/15/2017 23:59:59 CLS Outpatient Hetlinger, Sean [id number] 04/23/2017 14:14:47 04/23/2017 23:59:59 CLS Outpatient Aurora Martin [id number] 04/14/2017 09:19:24 04/14/2017 23:59:59 CLS Outpatient HetlingSean alves [id number] 03/20/2017 15:22:17 03/20/2017 23:59:59 CLS Outpatient HetlingerSean [id number] 03/03/2017 17:59:33 03/03/2017 23:59:59 CLS Outpatient Aurora Martin [id number] 01/09/2017 14:30:18 01/09/2017 23:59:59 CLS Outpatient HetlingerSean [id number] 01/02/2017 14:28:33 01/02/2017 23:59:59 CLS Outpatient HetlingerSean [id number] 12/27/2016 15:56:43 12/27/2016 23:59:59 CLS Outpatient HetlingerSean [id number] 2016 09:39:41 2016 23:59:59 CLS Outpatient HetlingerSean [id number] 09/19/2016 11:06:13 09/19/2016 23:59:59 CLS Outpatient HetlingerSean [id number] 07/01/2016 09:18:55 07/01/2016 23:59:59 CLS Outpatient HetlingerSean [id number] 06/17/2016 11:21:34 06/17/2016 23:59:59 CLS Outpatient HetlingerSean [id number] 06/02/2016 11:45:43 06/02/2016 23:59:59 CLS Outpatient Michelle Greco [id number] 05/20/2016 10:07:14 05/20/2016 23:59:59 CLS Outpatient Hetlinger, Sean [id number] 04/01/2016 10:43:20 04/01/2016 23:59:59 CLS Outpatient Hetlinger, Sean [id number] 12/09/2015 18:02:06 12/09/2015 23:59:59 CLS Outpatient Miguel A Munoz [id number] 11/17/2015 15:42:52 11/17/2015 23:59:59 CLS Outpatient Hetlinger, Sean [id number] 11/03/2015 09:17:08 11/03/2015 23:59:59 CLS Outpatient HetlingerSean [id number] 10/09/2015 09:43:07 10/09/2015 23:59:59 CLS Outpatient Hetlinger, Sean [id number] 08/31/2015 15:29:16 08/31/2015 23:59:59 CLS Outpatient HetlingerSean [id number] 08/25/2015 11:01:57 08/25/2015 23:59:59 CLS Outpatient HetlingerSean [id number] 06/05/2015 10:21:13 06/05/2015 23:59:59 CLS Outpatient HetlingerSean [id number] 06/01/2015 07:40:23 06/01/2015 23:59:59 CLS Outpatient Michelle Greco [id number] 05/11/2015 22:33:28 05/11/2015 23:59:59 CLS Outpatient Amaris Gentile [id number] 05/11/2015 22:31:59 05/11/2015 23:59:59 CLS Outpatient Kiarra Ramos [id number] 05/11/2015 22:07:32 05/11/2015 23:59:59 CLS Outpatient HetlingerSean [id number] 05/11/2015 22:03:31 05/11/2015 23:59:59 CLS Outpatient HetlingerSean [id number] 05/11/2015 21:59:14 05/11/2015 23:59:59 CLS Outpatient HetlingerSean [id number] 05/11/2015 21:28:40 05/11/2015 23:59:59 CLS Outpatient HetlingerSean [id number] 01/26/2015 16:10:40 01/26/2015 23:59:59 CLS Outpatient Leena Haddad [id number] 01/12/2015 09:52:09 01/12/2015 23:59:59 CLS Outpatient Sean Marie [id number] 10/22/2014 14:36:19 10/22/2014 23:59:59 CLS Outpatient Miguel A Munoz [id number] 08/22/2014 09:31:15 08/22/2014 23:59:59 [facility] Outpatient Sean Marie [id number] 08/01/2014 10:40:38 08/01/2014 23:59:59 [facility] Outpatient Sean Marie [id number] 06/09/2014 15:49:13 06/09/2014 23:59:59 CLS Outpatient Kiarra Ramos [id number] 03/14/2014 09:18:53 03/14/2014 23:59:59 CLS Outpatient Leena Haddad [id number] 02/27/2014 14:57:30 02/27/2014 23:59:59 CLS Outpatient Leena Haddad [id number] 12/02/2013 10:40:20 12/02/2013 23:59:59 CLS Outpatient Sean Marie [id number] 11/25/2013 10:02:26 11/25/2013 23:59:59 CLS Outpatient Sean Marie [id number] 11/14/2013 15:16:36 11/14/2013 23:59:59 CLS Outpatient Kiarra Ramos [id number] 01/14/2019 07:45:00 01/14/2019 23:59:59 CLS Outpatient JhonnyCarolina [id number] 12/03/2018 07:49:00 12/03/2018 23:59:59 CLS Outpatient Jhonny, Carolina [id number] 08/27/2018 14:39:00 08/27/2018 23:59:59 CLS Outpatient Jhonny, Carolina [id number] 08/06/2018 15:45:00 08/06/2018 23:59:59 CLS Outpatient Jhonny, Carolina [id number] 06/26/2018 14:46:00 06/26/2018 23:59:59 CLS Outpatient Jhonny, Carolina [id number] 05/02/2018 11:05:00 05/02/2018 23:59:59 CLS Outpatient Jhonny, Carolina [id number] 04/30/2018 08:38:00 04/30/2018 23:59:59 CLS Outpatient Jhonny, Carolina [id number] 04/16/2018 12:00:00 04/16/2018 23:59:59 [facility] Outpatient Carolina Barry [id number] 04/03/2018 13:30:00 04/03/2018 23:59:59 [facility] Outpatient Carolina Barry
--- NOTE | 2019-01-22 20:35 | NUR ---
VERONICA HERRERA admitted to room 413-1, with an admitting diagnosis of POSSIBLE SMALL BOWEL OBSTRUCTION, on 01/22/19 from ER via WC, accompanied by AND ER STAFF. VERONICA HERRERA introduced to surroundings, call light, bed controls, phone, TV, temperature control, lights, meal times, smoking policy, visitor policy, side rail policy, bathrooms and showers. Patient Rights given to patient in the handbook. VERONICA HERRERA verbalizes understanding that [facility] is not responsible for the loss or damage to any personal effects or valuables that are kept in the patients poSsession during their hospitalization.
[2019-01-22 20:43] VITALS: BP 136/94
[2019-01-22] MEDS: NS IV 1000 ML 1,000 ML IV SCH (21:26)
[2019-01-22] MEDS ORDERED: PROMETHAZINE INJ 25 MG/ML (PHENERGAN) AMP IV PRN (22:00)
[2019-01-22] MEDS ORDERED: fentaNYL INJECTION 100 MCG/2 ML AMP IV PRN (22:00)
[2019-01-22] MEDS ORDERED: ONDANSETRON 4 MG/2 ML (SDV) Z0FRAN IV PRN (22:00)
--- OUTSIDE RECORDS SUMMARY | 2019-01-22 22:37 | XMS REPORT | Continuity of Care Document ---
[...] Procedures Code [place] [address] OFFICE/OUTPATIENT VISIT NEW 04/03/2018 39709 OFFICE/OUTPATIENT VISIT EST 08/06/2018 Results There is no data. Encounters ACCT No. Visit Date/Time Discharge Status Pt. Type Provider Facility Loc./Unit Complaint [id number] 12/31/2018 15:08:25 12/31/2018 23:59:59 [facility] Outpatient Sean Marie [id number] 12/26/2018 10:50:32 12/26/2018 23:59:59 [facility] Outpatient Sean Marie [id number] 12/18/2018 10:41:21 12/18/2018 23:59:59 [facility] Outpatient Kiarra Ramos [id number] 11/01/2018 09:26:26 11/01/2018 23:59:59 [facility] Outpatient Sean Marie [id number] 10/16/2018 14:31:29 10/16/2018 23:59:59 CLS Outpatient DaniellalingSean alves [id number] 09/27/2018 16:17:35 09/27/2018 23:59:59 CLS Outpatient Michelle Greco Sean [id number] 08/13/2018 13:49:27 08/13/2018 23:59:59 CLS Outpatient Aurora Martin [id number] 08/12/2018 13:55:43 08/12/2018 23:59:59 CLS Outpatient Aurora Martin [id number] 07/20/2018 16:46:18 07/20/2018 23:59:59 [facility] Outpatient Sean Marie [id number] 04/11/2018 13:52:57 04/11/2018 23:59:59 CLS Outpatient Jacky Fredis [id number] 03/29/2018 15:19:47 03/29/2018 23:59:59 CLS Outpatient DaniellalingSean alves [id number] 03/09/2018 09:51:30 03/09/2018 23:59:59 CLS Outpatient DaniellalingSean alves [id number] 02/28/2018 08:52:38 02/28/2018 23:59:59 CLS Outpatient Rico Fredis [id number] 01/29/2018 17:36:47 01/29/2018 23:59:59 CLS Outpatient [place] [id number] 01/19/2018 11:26:07 01/19/2018 23:59:59 CLS Outpatient DaniellalingSean alves [id number] 10/27/2017 10:00:45 10/27/2017 23:59:59 CLS Outpatient Jacky Fredis [id number] 10/23/2017 09:29:56 10/23/2017 23:59:59 CLS Outpatient DaniellalingSean alves [id number] 09/20/2017 12:18:44 09/20/2017 23:59:59 CLS Outpatient Jacky Fredis [id number] 08/31/2017 15:49:06 08/31/2017 23:59:59 CLS Outpatient Fredis Rico [id number] 08/09/2017 10:08:51 08/09/2017 23:59:59 CLS Outpatient HetlingerSean [id number] 07/07/2017 09:35:41 07/07/2017 23:59:59 CLS Outpatient HetlingerSean [id number] 06/16/2017 11:07:00 06/16/2017 23:59:59 CLS Outpatient HetlingerSean [id number] 05/15/2017 09:46:10 05/15/2017 23:59:59 CLS Outpatient Hetlinger, Sean [id number] 04/23/2017 14:14:47 04/23/2017 23:59:59 CLS Outpatient Aurora Martin [id number] 04/14/2017 09:19:24 04/14/2017 23:59:59 CLS Outpatient HetlingSean alves [id number] 03/20/2017 15:22:17 03/20/2017 23:59:59 CLS Outpatient HetlingerSean [id number] 03/03/2017 17:59:33 03/03/2017 23:59:59 CLS Outpatient Aurora Maritn [id number] 01/09/2017 14:30:18 01/09/2017 23:59:59 CLS Outpatient HetlingerSean [id number] 01/02/2017 14:28:33 01/02/2017 23:59:59 CLS Outpatient HetlingerSean [id number] 12/27/2016 15:56:43 12/27/2016 23:59:59 CLS Outpatient HetlingerSean [id number] 2016 09:39:41 2016 23:59:59 CLS Outpatient HetlingerSean [id number] 09/19/2016 11:06:13 09/19/2016 23:59:59 CLS Outpatient HetlingerSean [id number] 07/01/2016 09:18:55 07/01/2016 23:59:59 CLS Outpatient HetlingerSean [id number] 06/17/2016 11:21:34 06/17/2016 23:59:59 CLS Outpatient HetlingerSean [id number] 06/02/2016 11:45:43 06/02/2016 23:59:59 CLS Outpatient Michelle Greco [id number] 05/20/2016 10:07:14 05/20/2016 23:59:59 CLS Outpatient Hetlinger, Sean [id number] 04/01/2016 10:43:20 04/01/2016 23:59:59 CLS Outpatient Hetlinger, Sean [id number] 12/09/2015 18:02:06 12/09/2015 23:59:59 CLS Outpatient Miguel A Munoz [id number] 11/17/2015 15:42:52 11/17/2015 23:59:59 CLS Outpatient Hetlinger, Sean [id number] 11/03/2015 09:17:08 11/03/2015 23:59:59 CLS Outpatient HetlingerSean [id number] 10/09/2015 09:43:07 10/09/2015 23:59:59 CLS Outpatient Hetlinger, Sean [id number] 08/31/2015 15:29:16 08/31/2015 23:59:59 CLS Outpatient HetlingerSean [id number] 08/25/2015 11:01:57 08/25/2015 23:59:59 CLS Outpatient HetlingerSean [id number] 06/05/2015 10:21:13 06/05/2015 23:59:59 CLS Outpatient HetlingerSean [id number] 06/01/2015 07:40:23 06/01/2015 23:59:59 CLS Outpatient Michelle Greco [id number] 05/11/2015 22:33:28 05/11/2015 23:59:59 CLS Outpatient Amaris Gentile [id number] 05/11/2015 22:31:59 05/11/2015 23:59:59 CLS Outpatient Kiarra Ramos [id number] 05/11/2015 22:07:32 05/11/2015 23:59:59 CLS Outpatient HetlingerSean [id number] 05/11/2015 22:03:31 05/11/2015 23:59:59 CLS Outpatient HetlingerSean [id number] 05/11/2015 21:59:14 05/11/2015 23:59:59 CLS Outpatient HetlingerSean [id number] 05/11/2015 21:28:40 05/11/2015 23:59:59 CLS Outpatient HetlingerSean [id number] 01/26/2015 16:10:40 01/26/2015 23:59:59 CLS Outpatient Leena Haddad [id number] 01/12/2015 09:52:09 01/12/2015 23:59:59 CLS Outpatient Sean Marie [id number] 10/22/2014 14:36:19 10/22/2014 23:59:59 CLS Outpatient Miguel A Munoz [id number] 08/22/2014 09:31:15 08/22/2014 23:59:59 CLS Outpatient Sean Marie [id number] 08/01/2014 10:40:38 08/01/2014 23:59:59 CLS Outpatient Sean Marie [id number] 06/09/2014 15:49:13 06/09/2014 23:59:59 CLS Outpatient Kiarra Ramos [id number] 03/14/2014 09:18:53 03/14/2014 23:59:59 CLS Outpatient Leena Haddad [id number] 02/27/2014 14:57:30 02/27/2014 23:59:59 CLS Outpatient Leena Haddad [id number] 12/02/2013 10:40:20 12/02/2013 23:59:59 CLS Outpatient Sean Marie [id number] 11/25/2013 10:02:26 11/25/2013 23:59:59 CLS Outpatient Sean Marie [id number] 11/14/2013 15:16:36 11/14/2013 23:59:59 CLS Outpatient Kiarra Ramos [id number] 01/14/2019 07:45:00 01/14/2019 23:59:59 CLS Outpatient JhonnyCarolina [id number] 12/03/2018 07:49:00 12/03/2018 23:59:59 CLS Outpatient Jhonny, [place] [id number] 08/27/2018 14:39:00 08/27/2018 23:59:59 CLS Outpatient Jhonny, [place] [id number] 08/06/2018 15:45:00 08/06/2018 23:59:59 CLS Outpatient Jhonny, [place] [id number] 06/26/2018 14:46:00 06/26/2018 23:59:59 CLS Outpatient Jhonny, [place] [id number] 05/02/2018 11:05:00 05/02/2018 23:59:59 CLS Outpatient Jhonny, [place] [id number] 04/30/2018 08:38:00 04/30/2018 23:59:59 CLS Outpatient Jhonny, [place] [id number] 04/16/2018 12:00:00 04/16/2018 23:59:59 [facility] Outpatient Carolina Barry [id number] 04/03/2018 13:30:00 04/03/2018 23:59:59 [facility] Outpatient Carolina Barry
[2019-01-23 00:26] VITALS: BP 161/84
[2019-01-23 04:53] VITALS: BP 133/60
[2019-01-23 08:00] VITALS: BP 101/61
--- NOTE | 2019-01-23 09:01 | NUR ---
SPOKE WITH THE PATIENT ABOUT HER MEDICATIONS. WE WENT OVER THE EXT MED HX AND SHE VERIFIED HOW SHE TAKES HER MEDICATIONS. SHE STATES SHE IS NO LONGER TAKING THE DICLOFENAC 75MG BID #60 LAST FILLED 12-30-18. HER GABAPENTIN 800MG WAS FILLED #90 FOR 30 DAYS 12-03-18 HOWEVER SHE STATES SHE ONLY TAKES IT BID. SHE FILLED ZOFRAN ODT 4MG #20 11-02-18 - SHE STATES. DR HAS WRITTEN HER A NEW SCRIPT FOR 8MG Q6H BUT SHE HAS NOT FILLED IT YET, SHE HAS BEEN TAKING 2 OF THE 4MG TABLETS. SHE RECEIVES SAMPLES OF HER INHALERS BUT STATES SHE IS ALMOST OUT OF THEM: BREO SPIRIVA RESPIMAT XOPENEX HFA SHE ALSO STATES SHE USES FUROSEMIDE, TIZANIDINE AND XOPENEX NEBULIZER SOLUTION NEEDED. SHE REPORTS TAKING XANAX NEEDED WELL WHICH ACCORDING TO [facility] WAS LAST FILLED XANAX 0.25MG #60 FOR A 30 DAY SUPPLY 07-06-18. SHE TAKES THE FOLLOWING OTC: AMBEREN PACK DAILY XYZAL 5MG HS ZYRTEC 10MG DAILY
[2019-01-23] MEDS: NS IV 1000 ML 1,000 ML IV SCH (09:33)
--- NOTE | 2019-01-23 09:47 | Conscious Sedation/ASA ---
Conscious Sedation Pre-Proced Time 09:45 ASA Score 2 For ASA 3 and 4: Consider anesthesia and medical clearance. Also, for patients with a history of failed moderate sedation consider anesthesia. Airway Lungs Heart ASA score ASA 1: a normal healthy patient ASA 2: a patient with a mild systemic disease (mid diabetes, controlled hypertension, obesity ASA 3: a patient with a severe systemic disease that limits activity (angina , COPD, prior Myocardial infarction) ASA 4: a patient with an incapacitating disease that is a constant threat to life (CHF, renal failure) ASA 5: a moribund patient not expected to survive 24 hrs. (ruptured aneurysm) ASA 6: a declared brain- patient whose organs are being harvested. For emergent operations, add the letter E after the classification Mallampati Classification Grade 3 Sedation Plan Analgesia, Amnesia, Plan communicated to team members, Discussed options with patient/fam, Discussed risks with patient/fam The patient is an appropriate candidate to undergo the planned procedure, sedation, and anesthesia. The patient immediately re-assessed prior to indication. MATILDE ADAMS MD Jan 23, 2019 09:47
--- NOTE | 2019-01-23 09:49 | Progress Note-Pre Operative ---
Pre-Operative Progress Note H&P Reviewed The H&P was reviewed, patient examined and no changes noted. Date Seen by Provider: Jan 23, 2019 Time Seen by Provider: 09:45 Date H&P Reviewed: Jan 23, 2019 Time H&P Reviewed: 09:45 Pre-Operative Diagnosis: recurrent abdominal distention MATILDE ADAMS MD Jan 23, 2019 09:48
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
[2019-01-23 13:00] VITALS: BP 132/79
--- NOTE | 2019-01-23 14:21 | NUR ---
PATIENT TO ENDO PER W/C ACCOMPANIED BY HER S.O. AND KALI CHEN FROM ENDO. THIS RN WILL ASSUME CARE OF THIS PATIENT WHEN SHE ARRIVES BACK TO FORTH FLOOR.
[2019-01-23] MEDS ORDERED: fentaNYL INJECTION 100 MCG/2 ML AMP ONE (14:32)
[2019-01-23] MEDS ORDERED: NS IV 500 ML 500 ML ONE (14:32)
[2019-01-23] MEDS ORDERED: MIDAZOLAM 2 MG/2 ML (VERSED) VIAL ONE ×5 (14:32→15:02)
[2019-01-23] MEDS ORDERED: LIDOCAINE JELLY 2% 6 ML SYRINGE ONE (14:32)
--- NOTE | 2019-01-23 14:33 | Discharge Inst-Surgical ---
D/C Lap Instructions-BRYAN Follow Up As previously scheduled. Activity as tolerated High Fiber Diet 25g or more per day Avoid Alcohol, Caffeine, Spicy [place] and Acid foods. Drink 64 fluid oz or more of fluids per day. Symptoms to Report: Fever over 101 degree F, Nausea/Vomiting If any problems/questions: Contact your physician or go to Emergency Room MATILDE AADMS MD Jan 23, 2019 14:33
[2019-01-23] MEDS ORDERED: MIDAZOLAM 2 MG/2 ML (VERSED) VIAL IVP ONE (15:30)
[2019-01-23] MEDS ORDERED: LIDOCAINE JELLY 2% 6 ML SYRINGE MM PRN (15:30)
[2019-01-23] MEDS ORDERED: fentaNYL INJECTION 100 MCG/2 ML AMP IVP ONE (15:30)
[2019-01-23] MEDS ORDERED: NS IV 500 ML 500 ML IV ONE (15:30)
--- NOTE | 2019-01-23 15:46 | Progress Note-Post Operative ---
Post-Operative Progess Note Surgeon (s)/[place] (s) Surgeon MATILDE ADAMS MD [place] Up: none Pre-Operative Diagnosis recurrent abdominal distention Post-Operative Diagnosis mild sigmoid diverticulosis, colonic stricure, possible mid colon. Procedure & Operative Findings Date of Procedure 01/23/19 Procedure Performed/Findings colonoscopy with bx and submucosal injection. Anesthesia Type cs Estimated Blood Loss Estimated blood loss (mL): minimal Specimens/Packing Specimens Removed colonic stricture. MATILDE ADAMS MD Jan 23, 2019 15:46
--- NOTE | 2019-01-23 15:48 | NUR ---
PATIENT BACK TO ROOM AT THIS TIME FROM [facility] PER KALI SANCHEZ.
[2019-01-23 16:45] VITALS: BP 120/58
[2019-01-23 18:17] VITALS: BP 120/58
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
== END 2019-01-23 18:30 | disposition home or self-care (01) ==
LOC: EDUNIT# 17:07 → ER 17:08 → 4TH 19:50
PROVIDERS: ADMIT Surgery; ATTEND Surgery
DX: K56.600 Partial intestinal obstruction, unspecified as to cause (principal); K64.1 Second degree hemorrhoids; K57.30 Diverticulosis of large intestine without perforation or abscess without bleeding; J44.9 Chronic obstructive pulmonary disease, unspecified; G47.33 Obstructive sleep apnea (adult) (pediatric); E78.00 Pure hypercholesterolemia, unspecified; R60.0 Localized edema; R01.1 Cardiac murmur, unspecified; G62.9 Polyneuropathy, unspecified; N31.9 Neuromuscular dysfunction of bladder, unspecified; K21.9 Gastro-esophageal reflux disease without esophagitis; K59.09 Other constipation; M79.7 Fibromyalgia; M19.91 Primary osteoarthritis, unspecified site; E03.9 Hypothyroidism, unspecified; F41.9 Anxiety disorder, unspecified; F32.9 Major depressive disorder, single episode, unspecified; Z99.89 Dependence on other enabling machines and devices; Z98.84 Bariatric surgery status
CPT/HCPCS: 36415; 74177; 80053; 81000; 82150; 83690; 85025; 94760; G0378

== ENCOUNTER → 2019-01-25 | Outpatient (CLI) | payer BC ==
[2019-01-25 10:46] LABS: HEMOGLOBIN 11.3 G/DL (11.5-16.0); MEAN PLATELET VOLUME 10.2 FL (7.4-10.4)
[2019-01-25 11:09] LABS: ALANINE AMINOTRANSFERASE 36 U/L (0-55); ALBUMIN 3.6 GM/DL (3.2-4.5); ALKALINE PHOSPHATASE 90 U/L (40-136); BILIRUBIN,TOTAL 0.5 MG/DL (0.1-1.0); BUN/CREATININE RATIO 9; CALCIUM 9.5 MG/DL (8.5-10.1); CARBON DIOXIDE 28 MMOL/L (21-32); CHLORIDE 106 MMOL/L (98-107); CREATININE SERUM 0.75 MG/DL (0.60-1.30); GFR ESTIMATED > 60; GLUCOSE 94 MG/DL (70-105); POTASSIUM 3.4 MMOL/L (3.6-5.0); SODIUM 144 MMOL/L (135-145); TOTAL PROTEIN 6.1 GM/DL (6.4-8.2)
--- NOTE | 2019-01-25 12:05 | Diagnostic Imaging Report ---
PROCEDURE: CT abdomen and pelvis with contrast. TECHNIQUE: Multiple contiguous axial images were obtained through the abdomen and pelvis after administration of intravenous contrast. Auto Exposure Controls were utilized during the CT exam to meet ALARA standards for radiation dose reduction. INDICATION: Abdominal pain COMPARISON: CT of the abdomen and pelvis from 01/22/2019 FINDINGS: Lower chest: Persistent patchy nodular consolidations within the left lung base. Right lower lobe linear atelectasis persists. Peritoneum: No loculated fluid collections within the abdomen and no free intraperitoneal air. Liver and biliary system: Diffuse hepatic steatosis. No focal hepatic lesion. Main portal vein remains patent. Cholecystectomy. No pathologic biliary duct dilatation. Spleen and Pancreas: Spleen is normal. The pancreas enhances normally without mass lesion or peripancreatic inflammatory changes. Adrenals: Normal. tract: Stable small exophytic cyst arising from the mid aspect of the right kidney which measures 1.8 x 1.8 cm. No solid renal mass or obstructive uropathy. Status post hysterectomy. No concerning adnexal mass. GI tract: Stomach is partially decompressed with multiple surgical jayla along its margin from prior surgery. Rectal contrast was administered in a retrograde fashion. The contrast opacifies the normal caliber rectum, sigmoid and descending colon. Contrast does not reflux down the mid aspect of the transverse colon where there is likely a focal stricture or adhesion causing at least partial obstruction (best seen on axial image #37, series 3 and coronal image #17, series 5). This is in the region of prior ventral abdominal wall surgery as there are numerous surgical clips and jayla along this region. The small bowel loop dilatation has resolved. Vasculature and Lymph nodes: Normal caliber aorta. No abdominal or pelvic lymphadenopathy. Musculoskeletal: No concerning osseous lesion. IMPRESSION: 1. There is either an adhesion versus stricture resulting in partial obstruction of the mid transverse colon. Previously noted dilated loops of small bowel have resolved. 2. No acute inflammatory process. 3. Unchanged diffuse hepatic steatosis. Dictated by: Dictated on workstation # [id number]
--- NOTE | 2019-01-25 12:54 | Diagnostic Imaging Report ---
Indication: Shortness of breath. Exam compared 09/17/2018. Findings: There is some mild likely subsegmental atelectatic changes in the left lung base. There were no findings felt suggestive of pneumonia or failure. No pleural fluid, pneumothorax or vascular congestion. Impression: Likely slight left basilar atelectasis, otherwise negative. Dictated by: Dictated on workstation # [id number]
== END ==
LOC: RAD 10:27
PROVIDERS: ATTEND Surgery
DX: K56.600 Partial intestinal obstruction, unspecified as to cause (principal); K76.0 Fatty (change of) liver, not elsewhere classified; R06.02 Shortness of breath; Z90.49 Acquired absence of other specified parts of digestive tract; Z90.710 Acquired absence of both cervix and uterus; Z98.890 Other specified postprocedural states
CPT/HCPCS: 36415; 71046; 74177; 80053; 82378; 85027

== ENCOUNTER 2019-01-28 09:30 | Inpatient (IN) | payer BC ==
[~2019-01-28] VITALS: Ht 162.6 cm; Wt 100.2 kg
[~2019-01-28 09:30] MED LIST changes: -HYDR118S10 PO; +HYDR15SO6 PO
[2019-01-28 10:22] VITALS: BP 143/80
--- NOTE | 2019-01-28 10:30 | NUR ---
VERONICA HERRERA admitted to room 431-1, with an admitting diagnosis of bowel obstruction , on 01/28/[address] Rueda office ambulatory, accompanied by .VERONICA HERRERA introduced to surroundings, call light, bed controls, phone, TV, temperature control, lights, meal times, smoking policy, visitor policy, side rail policy, bathrooms and showers. Patient Rights given to patient in the handbook. VERONICA HERRERA verbalizes understanding that [facility] is not responsible for the loss or damage to any personal effects or valuables that are kept in the patients posession during their hospitalization. The following Patient Care Plans and discharge were discussed with the patient. VERONICA HERRERA verbalizes understanding of Interdisciplinary Patient Education.
--- NOTE | 2019-01-28 10:47 | NUR ---
PATIENT WAS RECENTLY ADMITTED AND I WENT OVER HER MED REC WITH HER IN DETAIL ON 01-23-19, SHE STATES TODAY NOTHING HAS CHANGED SINCE SHE WENT HOME. I REVIEWED THE MED REC IT WAS REPORTED ON HER PREVIOUS ADMISSION.
[2019-01-28] MEDS: fentaNYL INJECTION 100 MCG/2 ML AMP IV PRN ×2 (10:49→17:38)
[2019-01-28] MEDS: NS IV 1000 ML 1,000 ML IV SCH ×2 (10:49→20:58)
[2019-01-28] MEDS: ONDANSETRON 4 MG/2 ML (SDV) Z0FRAN IV PRN (10:49)
[2019-01-28] MEDS: PANTOPRAZOLE 40 MG (PROTONIX) VIAL IV SCH (10:49)
[2019-01-28] MEDS: PROMETHAZINE INJ 25 MG/ML (PHENERGAN) AMP IV PRN (10:55)
[2019-01-28 12:15] LABS: BASOPHILS % (AUTO) 0 % (0-10); EOSINOPHILS % (AUTO) 0 % (0-10); HEMATOCRIT 45 % (35-52); HEMOGLOBIN 14.1 G/DL (11.5-16.0); LYMPHOCYTES # (AUTO) 0.8 X 10^3 (1.0-4.0); LYMPHOCYTES % (AUTO) 10 % (12-44); MEAN CORPUSCULAR HEMOGLOBIN 25 PG (25-34); MEAN CORPUSCULAR HGB CONC 32 G/DL (32-36); MEAN CORPUSCULAR VOLUME 79 FL (80-99); MEAN PLATELET VOLUME 10.5 FL (7.4-10.4); MONOCYTES # (AUTO) 1.6 X 10^3 (0.0-1.0); MONOCYTES % (AUTO) 20 % (0-12); NEUTROPHILS # (AUTO) 5.6 X 10^3 (1.8-7.8); NEUTROPHILS % (AUTO) 70 % (42-75); PLATELET COUNT 326 10^3/uL (130-400); RED CELL DISTRIBUTION WIDTH 17.8 % (10.0-14.5)
[2019-01-28 12:31] LABS: ALBUMIN 4.3 GM/DL (3.2-4.5); BILIRUBIN,TOTAL 0.8 MG/DL (0.1-1.0); CALCIUM 10.2 MG/DL (8.5-10.1); CREATININE SERUM 1.09 MG/DL (0.60-1.30); POTASSIUM 3.7 MMOL/L (3.6-5.0); TOTAL PROTEIN 7.5 GM/DL (6.4-8.2)
--- OUTSIDE RECORDS SUMMARY | 2019-01-28 12:35 | XMS REPORT | Continuity of Care Document ---
Author Organization Unknown Address Unknown Allergies Active Description Code Type Severity Reaction Onset Reported/Identified Relationship to Patient Clinical Status Yes No Allergy Information Available [id number] Drug Allergy Unknown N/A 2016 Yes acetaminophen [id number] Drug Allergy Unknown N/A 07/18/2018 Yes albuterol [id number] Drug Allergy Unknown tachycardia 07/18/2018 Yes estrogens, conjugated [id number] Drug Allergy Unknown N/A 07/18/2018 Yes oxycodone [id number] Drug Allergy Unknown N/A 07/18/2018 Yes pregabalin [id number] Drug Allergy Unknown N/A 07/18/2018 Yes acetaminophen [id number] Drug Allergy Mild ITCHING 08/27/2018 Yes oxycodone [id number] Drug Allergy Mild ITCHING 08/27/2018 Yes albuterol [id number] Drug Allergy Severe tachycardia 01/23/2019 Yes estrogens, conjugated [id number] Drug Allergy Severe PE 01/23/2019 Yes pregabalin [id number] Drug Allergy Moderate VISION PROBLEMS 01/23/2019 Yes oxycodone [id number] Drug Allergy Mild ITCHING, Pt dede 01/23/2019 Medications Medication Packaging Start Date Stop Date [...] OBSTRUCTIVE PULMONARY DISEASE, U 10/19/2017 AUDREY AYOUB BLASTER HELPER Ot G47.30 SLEEP APNEA, UNSPECIFIED 10/19/2017 AUDREY AYOUB BLASTER HELPER Ot J42 UNSPECIFIED CHRONIC BRONCHITIS 10/19/2017 AUDREY AYOUB BLASTER HELPER Ot J44.9 CHRONIC OBSTRUCTIVE PULMONARY DISEASE, U 10/19/2017 AUDREY AYOUB BLASTER HELPER Ot J45.909 UNSPECIFIED ASTHMA, UNCOMPLICATED 10/19/2017 AUDREY AYOUB BLASTER HELPER Ot K76.0 FATTY (CHANGE OF) LIVER, NOT ELSEWHERE C 10/19/2017 AUDREY AYOUB APRN Ot R16.2 HEPATOMEGALY WITH SPLENOMEGALY, NOT ELSE 10/19/2017 AUDREY AYOUB BLASTER HELPER Ot Z86.11 PERSONAL HISTORY OF TUBERCULOSIS 10/19/2017 [...] DISORDER OF THYROID, UNSPECIFIED 10/19/2017 AUDREY AYOUB BLASTER HELPER Ot F41.9 ANXIETY DISORDER, UNSPECIFIED 10/19/2017 AUDREY AYOUB APRN Ot G47.30 SLEEP APNEA, UNSPECIFIED 10/19/2017 AUDREY AYOUB BLASTER HELPER Ot J44.9 CHRONIC OBSTRUCTIVE PULMONARY DISEASE, U 10/19/2017 AUDREY AYOUB BLASTER HELPER Ot J45.909 UNSPECIFIED ASTHMA, UNCOMPLICATED 10/19/2017 AUDREY AYOUB BLASTER HELPER Ot J98.4 OTHER DISORDERS OF LUNG 10/19/2017 AUDREY AYOUB BLASTER HELPER Ot R09.02 HYPOXEMIA 10/19/2017 AUDREY AYOUB BLASTER HELPER Ot R94.2 ABNORMAL RESULTS OF PULMONARY FUNCTION S 10/20/2017 AUDREY AYOUB BLASTER HELPER Ot I26.99 OTHER PULMONARY EMBOLISM WITHOUT ACUTE C 10/20/2017 AUDREY AYOUB BLASTER HELPER Ot J44.9 CHRONIC OBSTRUCTIVE PULMONARY DISEASE, U 10/20/2017 AUDREY AYOUB BLASTER HELPER Ot J98.4 OTHER DISORDERS OF LUNG 10/20/2017 IESHA AYOUBINE Rosy BLASTER HELPER Ot R09.02 HYPOXEMIA 10/25/2017 IESHA AYOUBINE Rosy BLASTER HELPER Ot E07.9 DISORDER OF THYROID, UNSPECIFIED 10/25/2017 IESHA AYOUBINE Rosy BLASTER HELPER Ot F41.9 ANXIETY DISORDER, UNSPECIFIED 10/25/2017 IESHA AYOUBINE Rosy BLASTER HELPER Ot G47.30 SLEEP APNEA, UNSPECIFIED 10/25/2017 AUDREY AYOUB BLASTER HELPER Ot J44.9 CHRONIC OBSTRUCTIVE PULMONARY DISEASE, U 10/25/2017 AUDREY AYOUB BLASTER HELPER Ot J45.909 UNSPECIFIED ASTHMA, UNCOMPLICATED 10/25/2017 IESHA AYOUBINE Rosy BLASTER HELPER Ot J98.4 OTHER DISORDERS OF LUNG 10/25/2017 AUDREY AYOUB BLASTER HELPER Ot R09.02 HYPOXEMIA 10/25/2017 AUDREY AYOUB BLASTER HELPER Ot R94.2 ABNORMAL RESULTS OF PULMONARY FUNCTION S 11/02/2017 AUDREY AYOUB BLASTER HELPER Ot I26.99 OTHER PULMONARY EMBOLISM WITHOUT ACUTE C 11/02/2017 AUDREY AYOUB BLASTER HELPER Ot J44.9 CHRONIC OBSTRUCTIVE PULMONARY DISEASE, U 11/02/2017 AUDREY AYOUB BLASTER HELPER Ot J98.4 OTHER DISORDERS OF LUNG 11/02/2017 IESHA AYOUBINE Rosy BLASTER HELPER Ot R09.02 HYPOXEMIA 11/23/2017 IESHA AYOUBINE Rosy BLASTER HELPER Ot I26.99 OTHER PULMONARY EMBOLISM WITHOUT ACUTE C 11/23/2017 AUDREY AYOUB BLASTER HELPER Ot J44.9 CHRONIC OBSTRUCTIVE PULMONARY DISEASE, U 11/23/2017 IESHA AYOUBINE Rosy BLASTER HELPER Ot J98.4 OTHER DISORDERS OF LUNG 11/23/2017 IESHA AYOUBINE Rosy BLASTER HELPER Ot R09.02 HYPOXEMIA 11/23/2017 AUDREY AYOUB BLASTER HELPER Ot E07.9 DISORDER OF THYROID, UNSPECIFIED 11/23/2017 IESHA AYOUBINE Rosy BLASTER HELPER Ot F41.9 ANXIETY DISORDER, UNSPECIFIED 11/23/2017 IESHA AYOUBINE Rosy BLASTER HELPER Ot G47.30 SLEEP APNEA, UNSPECIFIED 11/23/2017 IESHA AYOUBINE Rosy BLASTER HELPER Ot J44.9 CHRONIC OBSTRUCTIVE PULMONARY DISEASE, U 11/23/2017 IESHA AYOUBINE Rosy BLASTER HELPER Ot J45.909 UNSPECIFIED ASTHMA, UNCOMPLICATED 11/23/2017 IESHA AYOUBINE Rosy BLASTER HELPER Ot J98.4 OTHER DISORDERS OF LUNG 11/23/2017 IESHA AYOUBINE Rosy BLASTER HELPER Ot R09.02 HYPOXEMIA 11/23/2017 IESHA AYOUBINE Rosy BLASTER HELPER Ot R94.2 ABNORMAL RESULTS OF PULMONARY FUNCTION S 11/23/2017 AUDREY AYOUB BLASTER HELPER Ot I26.99 OTHER PULMONARY EMBOLISM WITHOUT ACUTE C 11/23/2017 AUDREY AYOUB BLASTER HELPER Ot J44.9 CHRONIC OBSTRUCTIVE PULMONARY DISEASE, U 11/23/2017 AUDREY AYOUB BLASTER HELPER Ot J98.4 OTHER DISORDERS OF LUNG 11/23/2017 AUDREY AYOUB BLASTER HELPER Ot R09.02 HYPOXEMIA 12/03/2017 AUDREY AYOUB BLASTER HELPER Ot E07.9 DISORDER OF THYROID, UNSPECIFIED 12/03/2017 AUDREY AYOUB BLASTER HELPER Ot F41.9 ANXIETY DISORDER, UNSPECIFIED 12/03/2017 IESHA AYOUBINE Rosy BLASTER HELPER Ot G47.30 SLEEP APNEA, UNSPECIFIED 12/03/2017 AUDREY AYOUB BLASTER HELPER Ot J44.9 CHRONIC OBSTRUCTIVE PULMONARY DISEASE, U 12/03/2017 AUDREY AYOUB BLASTER HELPER Ot J45.909 UNSPECIFIED ASTHMA, UNCOMPLICATED 12/03/2017 IESHA AYOUBINE Rosy BLASTER HELPER Ot J98.4 OTHER DISORDERS OF LUNG 12/03/2017 IESHA AYOUBINE Rosy BLASTER HELPER Ot R09.02 HYPOXEMIA 12/03/2017 IESHA AYOUBINE Rosy BLASTER HELPER Ot R94.2 ABNORMAL RESULTS OF PULMONARY FUNCTION S 12/05/2017 IESHA AYOUBINE Rosy BLASTER HELPER Ot E07.9 DISORDER OF THYROID, UNSPECIFIED 12/05/2017 IESHA AYOUBINE Rosy BLASTER HELPER Ot F41.9 ANXIETY DISORDER, UNSPECIFIED 12/05/2017 IESHA AYOUBINE Rosy BLASTER HELPER Ot G47.30 SLEEP APNEA, UNSPECIFIED 12/05/2017 AUDREY AYOUB BLASTER HELPER Ot J44.9 CHRONIC OBSTRUCTIVE PULMONARY DISEASE, U 12/05/2017 AUDREY AYOUB BLASTER HELPER Ot J45.909 UNSPECIFIED ASTHMA, UNCOMPLICATED 12/05/2017 AUDREY AYOUB BLASTER HELPER Ot J98.4 OTHER DISORDERS OF LUNG 12/05/2017 AUDREY AYOUB BLASTER HELPER Ot R09.02 HYPOXEMIA 12/05/2017 AUDREY AYOUB BLASTER HELPER Ot R94.2 ABNORMAL RESULTS OF PULMONARY FUNCTION S 12/06/2017 AUDREY AYOUB BLASTER HELPER Ot E07.9 DISORDER OF THYROID, UNSPECIFIED 12/06/2017 AUDREY AYOUB BLASTER HELPER Ot F41.9 ANXIETY DISORDER, UNSPECIFIED 12/06/2017 AUDREY AYOUB BLASTER HELPER Ot G47.30 SLEEP APNEA, UNSPECIFIED 12/06/2017 AUDREY AYOUB BLASTER HELPER Ot J44.9 CHRONIC OBSTRUCTIVE PULMONARY DISEASE, U 12/06/2017 AUDREY AYOUB BLASTER HELPER Ot J45.909 UNSPECIFIED ASTHMA, UNCOMPLICATED 12/06/2017 AUDREY AYOUB BLASTER HELPER Ot J98.4 OTHER DISORDERS OF LUNG 12/06/2017 AUDREY AYOUB BLASTER HELPER Ot R09.02 HYPOXEMIA 12/06/2017 AUDREY AYOUB BLASTER HELPER Ot R94.2 ABNORMAL RESULTS OF PULMONARY FUNCTION S 12/06/2017 AUDREY AYOUB BLASTER HELPER Ot E04.1 NONTOXIC SINGLE THYROID NODULE 12/06/2017 AUDREY AYOUB BLASTER HELPER Ot F41.9 ANXIETY DISORDER, UNSPECIFIED 12/06/2017 AUDREY AYOUB BLASTER HELPER Ot I26.99 OTHER PULMONARY EMBOLISM WITHOUT ACUTE C 12/06/2017 AUDREY AYOUB BLASTER HELPER Ot J44.9 CHRONIC OBSTRUCTIVE PULMONARY DISEASE, U 12/06/2017 AUDREY AYOUB BLASTER HELPER Ot J98.4 OTHER DISORDERS OF LUNG 12/08/2017 AUDREY AYOUB BLASTER HELPER Ot E07.9 DISORDER OF THYROID, UNSPECIFIED 12/08/2017 AUDREY AYOUB BLASTER HELPER Ot F41.9 ANXIETY DISORDER, UNSPECIFIED 12/08/2017 AUDREY AYOUB BLASTER HELPER Ot G47.30 SLEEP APNEA, UNSPECIFIED 12/08/2017 AUDREY AYOUB BLASTER HELPER Ot J44.9 CHRONIC OBSTRUCTIVE PULMONARY DISEASE, U 12/08/2017 AUDREY AYOUB BLASTER HELPER Ot J45.909 UNSPECIFIED ASTHMA, UNCOMPLICATED 12/08/2017 IESHA AYOUBINE Rosy BLASTER HELPER Ot J98.4 OTHER DISORDERS OF LUNG 12/08/2017 IESHA AYOUBINE Rosy BLASTER HELPER Ot R09.02 HYPOXEMIA 12/08/2017 IESHA AYOUBINE Rosy BLASTER HELPER Ot R94.2 ABNORMAL RESULTS OF PULMONARY FUNCTION S 12/09/2017 AUDREY AYOUB BLASTER HELPER Ot E07.9 DISORDER OF THYROID, UNSPECIFIED 12/09/2017 IESHA AYOUBINE Rosy BLASTER HELPER Ot F41.9 ANXIETY DISORDER, UNSPECIFIED 12/09/2017 IESHA AYOUBINE Rosy BLASTER HELPER Ot G47.30 SLEEP APNEA, UNSPECIFIED 12/09/2017 AUDREY AYOUB BLASTER HELPER Ot J44.9 CHRONIC OBSTRUCTIVE PULMONARY DISEASE, U 12/09/2017 AUDREY AYOUB BLASTER HELPER Ot J45.909 UNSPECIFIED ASTHMA, UNCOMPLICATED 12/09/2017 AUDREY AYOUB BLASTER HELPER Ot J98.4 OTHER DISORDERS OF LUNG 12/09/2017 AUDREY AYOUB BLASTER HELPER Ot R09.02 HYPOXEMIA 12/09/2017 AUDREY AYOUB BLASTER HELPER Ot R94.2 ABNORMAL RESULTS OF PULMONARY FUNCTION S 12/11/2017 AUDREY AYOUB BLASTER HELPER Ot E04.1 NONTOXIC SINGLE THYROID NODULE 12/11/2017 AUDREY AYOUB BLASTER HELPER Ot F41.9 ANXIETY DISORDER, UNSPECIFIED 12/11/2017 AUDREY AYOUB BLASTER HELPER Ot I26.99 OTHER PULMONARY EMBOLISM WITHOUT ACUTE C 12/11/2017 AUDREY AYOUB BLASTER HELPER Ot J44.9 CHRONIC OBSTRUCTIVE PULMONARY DISEASE, U 12/11/2017 AUDREY AYOUB BLASTER HELPER Ot J98.4 OTHER DISORDERS OF LUNG 12/11/2017 AUDREY AYOUB BLASTER HELPER Ot I26.99 OTHER PULMONARY EMBOLISM WITHOUT ACUTE C 12/11/2017 AUDREY AYOUB BLASTER HELPER Ot J44.9 CHRONIC OBSTRUCTIVE PULMONARY DISEASE, U 12/11/2017 AUDREY AYOUB BLASTER HELPER Ot J98.4 OTHER DISORDERS OF LUNG 12/11/2017 AUDREY AYOUB BLASTER HELPER Ot R09.02 HYPOXEMIA 12/11/2017 AUDREY AYOUB BLASTER HELPER Ot G47.30 SLEEP APNEA, UNSPECIFIED 12/11/2017 AUDREY AYOUB APRN Ot J42 UNSPECIFIED CHRONIC BRONCHITIS 12/11/2017 AUDREY AYOUB APRN Ot J44.9 CHRONIC OBSTRUCTIVE PULMONARY DISEASE, U 12/11/2017 AUDREY AYOUB BLASTER HELPER Ot J45.909 UNSPECIFIED ASTHMA, UNCOMPLICATED 12/11/2017 AUDREY AYOUB BLASTER HELPER Ot K76.0 FATTY (CHANGE OF) LIVER, NOT [...] NONTOXIC SINGLE THYROID NODULE 12/11/2017 AUDREY AYOUB APRN Ot F41.9 ANXIETY DISORDER, UNSPECIFIED 12/11/2017 AUDREY AYOUB APRN Ot I26.99 OTHER PULMONARY EMBOLISM WITHOUT ACUTE C 12/11/2017 AUDREY AYOUB BLASTER HELPER Ot J44.9 CHRONIC OBSTRUCTIVE PULMONARY DISEASE, U 12/11/2017 AUDREY AYOUB BLASTER HELPER Ot J98.4 OTHER DISORDERS OF LUNG 12/11/2017 AUDREY AYOUB BLASTER HELPER Ot I26.99 OTHER PULMONARY EMBOLISM WITHOUT ACUTE C 12/11/2017 AUDREY AYOUB BLASTER HELPER Ot J44.9 CHRONIC OBSTRUCTIVE PULMONARY DISEASE, U 12/11/2017 AUDREY AYOUB BLASTER HELPER Ot J98.4 OTHER DISORDERS OF LUNG 12/11/2017 AUDREY AYOUB BLASTER HELPER Ot R09.02 HYPOXEMIA 12/11/2017 AUDREY AYOUB BLASTER HELPER Ot E07.9 DISORDER OF THYROID, UNSPECIFIED 12/11/2017 AUDREY AYOUB BLASTER HELPER Ot F41.9 ANXIETY DISORDER, UNSPECIFIED 12/11/2017 AUDREY AYOUB BLASTER HELPER Ot G47.30 SLEEP APNEA, UNSPECIFIED 12/11/2017 AUDREY AYOUB BLASTER HELPER Ot J44.9 CHRONIC OBSTRUCTIVE PULMONARY DISEASE, U 12/11/2017 AUDREY AYOUB BLASTER HELPER Ot J45.909 UNSPECIFIED ASTHMA, UNCOMPLICATED 12/11/2017 IESHA AYOUBINE Rosy BLASTER HELPER Ot J98.4 OTHER DISORDERS OF LUNG 12/11/2017 AUDREY AYOUB BLASTER HELPER Ot R09.02 HYPOXEMIA 12/11/2017 AUDREY AYOUB BLASTER HELPER Ot R94.2 ABNORMAL RESULTS OF PULMONARY FUNCTION S 12/13/2017 AUDREY AYOUB BLASTER HELPER Ot J42 UNSPECIFIED CHRONIC BRONCHITIS 12/13/2017 AUDREY AYOUB BLASTER HELPER Ot J45.909 UNSPECIFIED ASTHMA, UNCOMPLICATED 12/13/2017 AUDREY AYOUB BLASTER HELPER Ot J98.4 OTHER DISORDERS OF LUNG 12/13/2017 AUDREY AYOUB BLASTER HELPER Ot R09.02 HYPOXEMIA 12/13/2017 AUDREY AYOUB BLASTER HELPER Ot R94.2 ABNORMAL RESULTS OF PULMONARY FUNCTION S 12/19/2017 AUDREY AYOUB BLASTER HELPER Ot J42 UNSPECIFIED CHRONIC BRONCHITIS 12/19/2017 AUDREY AYOUB BLASTER HELPER Ot J45.909 UNSPECIFIED ASTHMA, UNCOMPLICATED 12/19/2017 AUDREY AYOUB BLASTER HELPER Ot J98.4 OTHER DISORDERS OF LUNG 12/20/2017 AUDREY AYOUB BLASTER HELPER Ot E04.1 NONTOXIC SINGLE THYROID NODULE 12/20/2017 AURDEY AYOUB BLASTER HELPER Ot F41.9 ANXIETY DISORDER, UNSPECIFIED 12/20/2017 AUDREY AYOUB BLASTER HELPER Ot I26.99 OTHER PULMONARY EMBOLISM WITHOUT ACUTE C 12/20/2017 AUDREY AYOUB BLASTER HELPER Ot J44.9 CHRONIC OBSTRUCTIVE PULMONARY DISEASE, U 12/20/2017 AUDREY AYOUB BLASTER HELPER Ot J98.4 OTHER DISORDERS OF LUNG 12/27/2017 AUDREY AYOUB BLASTER HELPER Ot J42 UNSPECIFIED CHRONIC BRONCHITIS 12/27/2017 AUDREY AYOUB BLASTER HELPER Ot J45.909 UNSPECIFIED ASTHMA, UNCOMPLICATED 12/27/2017 MEGAIESHA MAGANAINE E BLASTER HELPER Ot J98.4 OTHER DISORDERS OF LUNG 12/27/2017 MEGAIESHA MAGANAINE E BLASTER HELPER Ot R09.02 HYPOXEMIA 12/27/2017 MEGA, AUDREY E BLASTER HELPER Ot R94.2 ABNORMAL RESULTS OF PULMONARY FUNCTION S 01/03/2018 IESHA AYOUBINE E BLASTER HELPER Ot J42 UNSPECIFIED CHRONIC BRONCHITIS 01/03/2018 IESHA AYOUBINE E BLASTER HELPER Ot J45.909 UNSPECIFIED ASTHMA, UNCOMPLICATED 01/03/2018 MEGAIESHA MAGANAINE E BLASTER HELPER Ot J98.4 OTHER DISORDERS OF LUNG 03/07/2018 MEGAIESHA MAGANAINE Rosy BLASTER HELPER Ot E07.9 DISORDER OF THYROID, UNSPECIFIED 03/07/2018 MEGAIESHA MAGANAINE E BLASTER HELPER Ot F41.9 ANXIETY DISORDER, UNSPECIFIED 03/07/2018 IESHA AYOUBINE E BLASTER HELPER Ot G47.30 SLEEP APNEA, UNSPECIFIED 03/07/2018 IESHA AYOUBINE E BLASTER HELPER Ot J44.9 CHRONIC OBSTRUCTIVE PULMONARY DISEASE, U 03/07/2018 IESHA AYOUBINE E BLASTER HELPER Ot J45.909 UNSPECIFIED ASTHMA, UNCOMPLICATED 03/07/2018 MEGAIESHA MAGANAINE E BLASTER HELPER Ot J98.4 OTHER DISORDERS OF LUNG 03/07/2018 IESHA AYOUBINE Rosy BLASTER HELPER Ot R09.02 HYPOXEMIA 03/07/2018 MEGAIESHA MAGANAINE E BLASTER HELPER Ot R94.2 ABNORMAL RESULTS OF PULMONARY FUNCTION S 03/08/2018 AUDREY AYOUB BLASTER HELPER Ot E07.9 DISORDER OF THYROID, UNSPECIFIED 03/08/2018 IESHA AYOUBINE Rosy BLASTER HELPER Ot F41.9 ANXIETY DISORDER, UNSPECIFIED 03/08/2018 IESHA AYOUBINE E BLASTER HELPER Ot G47.30 SLEEP APNEA, UNSPECIFIED 03/08/2018 MEGAIESHA MAGANAINE Rosy BLASTER HELPER Ot J44.9 CHRONIC OBSTRUCTIVE PULMONARY DISEASE, U 03/08/2018 IESHA AYOUBINE E BLASTER HELPER Ot J45.909 UNSPECIFIED ASTHMA, UNCOMPLICATED 03/08/2018 MEGAIESHA MAGANAINE Rosy BLASTER HELPER Ot J98.4 OTHER DISORDERS OF LUNG 03/08/2018 IESHA AYOUBINE Rosy BLASTER HELPER Ot R09.02 HYPOXEMIA 03/08/2018 MEGA, AUDREY E BLASTER HELPER Ot R94.2 ABNORMAL RESULTS OF PULMONARY FUNCTION S 04/03/2018 Carolina Barry W M79.7 Fibromyalgia 04/10/2018 Carolina Barry W M79.7 Fibromyalgia 07/17/2018 MEGA, AUDREY E BLASTER HELPER Ot E07.9 DISORDER OF THYROID, UNSPECIFIED 07/17/2018 MEGA, AUDREY E BLASTER HELPER Ot F41.9 ANXIETY DISORDER, UNSPECIFIED 07/17/2018 MEGA, AUDREY E BLASTER HELPER Ot G47.30 SLEEP APNEA, UNSPECIFIED 07/17/2018 MEGA, AUDREY E BLASTER HELPER Ot J44.9 CHRONIC OBSTRUCTIVE PULMONARY DISEASE, U 07/17/2018 MEGA, AUDREY E BLASTER HELPER Ot J45.909 UNSPECIFIED ASTHMA, UNCOMPLICATED 07/17/2018 MEGA, AUDREY E BLASTER HELPER Ot J98.4 OTHER DISORDERS OF LUNG 07/17/2018 MEGA, AUDREY E BLASTER HELPER Ot R09.02 HYPOXEMIA 07/17/2018 MEGA, AUDREY E BLASTER HELPER Ot R94.2 ABNORMAL RESULTS OF PULMONARY FUNCTION S 07/17/2018 MEGA, AUDREY E BLASTER HELPER Ot E07.9 DISORDER OF THYROID, UNSPECIFIED 07/17/2018 MEGA, AUDREY E BLASTER HELPER Ot F41.9 ANXIETY DISORDER, UNSPECIFIED 07/17/2018 MEGA, AUDREY E BLASTER HELPER Ot G47.30 SLEEP APNEA, UNSPECIFIED 07/17/2018 MEGA, AUDREY E BLASTER HELPER Ot J44.9 CHRONIC OBSTRUCTIVE PULMONARY DISEASE, U 07/17/2018 MEGA, AUDREY E BLASTER HELPER Ot J45.909 UNSPECIFIED ASTHMA, UNCOMPLICATED 07/17/2018 MEGA, AUDREY E BLASTER HELPER Ot J98.4 OTHER DISORDERS OF LUNG 07/17/2018 MEGA, AUDREY E BLASTER HELPER Ot R09.02 HYPOXEMIA 07/17/2018 MEGA, AUDREY E BLASTER HELPER Ot R94.2 ABNORMAL RESULTS OF PULMONARY FUNCTION S 07/17/2018 BRYAN GRULLON, MATILDE Ot Z01.818 ENCOUNTER FOR OTHER PREPROCEDURAL EXAMIN 07/18/2018 MEGA, AUDREY E BLASTER HELPER Ot G47.30 SLEEP APNEA, UNSPECIFIED 07/18/2018 MEGA, AUDREY E BLASTER HELPER Ot J42 UNSPECIFIED CHRONIC BRONCHITIS 07/18/2018 MEGA, AUDREY E BLASTER HELPER Ot J44.9 CHRONIC OBSTRUCTIVE PULMONARY DISEASE, U 07/18/2018 AUDREY AYOUB BLASTER HELPER Ot J45.909 UNSPECIFIED ASTHMA, UNCOMPLICATED 07/18/2018 AUDREY AYOUB BLASTER HELPER Ot K76.0 FATTY (CHANGE OF) LIVER, NOT ELSEWHERE C 07/18/2018 AUDREY AYOUB BLASTER HELPER Ot R16.2 HEPATOMEGALY WITH SPLENOMEGALY, NOT ELSE 07/18/2018 AUDREY AYOUB BLASTER HELPER Ot Z86.11 PERSONAL HISTORY OF TUBERCULOSIS 07/18/2018 [...] MASS AND LUMP, LOWER 07/18/2018 AUDREY AYOUB BLASTER HELPER Ot J44.9 CHRONIC OBSTRUCTIVE PULMONARY DISEASE, U 07/18/2018 AUDREY AYOUB BLASTER HELPER Ot E04.1 NONTOXIC SINGLE THYROID NODULE 07/18/2018 AUDREY AYOUB BLASTER HELPER Ot F41.9 ANXIETY DISORDER, UNSPECIFIED 07/18/2018 AUDREY AYOUB BLASTER HELPER Ot I26.99 OTHER PULMONARY EMBOLISM WITHOUT ACUTE C 07/18/2018 AUDREY AYOUB BLASTER HELPER Ot J44.9 CHRONIC OBSTRUCTIVE PULMONARY DISEASE, U 07/18/2018 AUDREY AYOUB BLASTER HELPER Ot J98.4 OTHER DISORDERS OF LUNG 07/18/2018 AUDREY AYOUB BLASTER HELPER Ot I26.99 OTHER PULMONARY EMBOLISM WITHOUT ACUTE C 07/18/2018 AUDREY AYOUB BLASTER HELPER Ot J44.9 CHRONIC OBSTRUCTIVE PULMONARY DISEASE, U 07/18/2018 AUDREY AYOUB BLASTER HELPER Ot J98.4 OTHER DISORDERS OF LUNG 07/18/2018 AUDREY AYOUB BLASTER HELPER Ot R09.02 HYPOXEMIA 07/18/2018 AUDREY AYOUB BLASTER HELPER Ot J42 UNSPECIFIED CHRONIC BRONCHITIS 07/18/2018 AUDREY AYOUB BLASTER HELPER Ot J45.909 UNSPECIFIED ASTHMA, UNCOMPLICATED 07/18/2018 AUDREY AYOUB BLASTER HELPER Ot J98.4 OTHER DISORDERS OF LUNG 07/18/2018 AUDREY AYOUB BLASTER HELPER Ot J42 UNSPECIFIED CHRONIC BRONCHITIS 07/18/2018 AUDREY AYOUB BLASTER HELPER Ot J45.909 UNSPECIFIED ASTHMA, UNCOMPLICATED 07/18/2018 AUDREY AYOUB BLASTER HELPER Ot J98.4 OTHER DISORDERS OF LUNG 07/18/2018 AUDREY AYOUB BLASTER HELPER Ot R09.02 HYPOXEMIA 07/18/2018 AUDREY AYOUB BLASTER HELPER Ot R94.2 ABNORMAL RESULTS OF PULMONARY FUNCTION S 07/18/2018 AUDREY AYOUB BLASTER HELPER Ot E07.9 DISORDER OF THYROID, UNSPECIFIED 07/18/2018 AUDREY AYOUB BLASTER HELPER Ot F41.9 ANXIETY DISORDER, UNSPECIFIED 07/18/2018 MEGAAUDREY MAGANA BLASTER HELPER Ot G47.30 SLEEP APNEA, UNSPECIFIED 07/18/2018 AUDREY AYOUB BLASTER HELPER Ot J44.9 CHRONIC OBSTRUCTIVE PULMONARY DISEASE, U 07/18/2018 AUDREY AYOUB BLASTER HELPER Ot J45.909 UNSPECIFIED ASTHMA, UNCOMPLICATED 07/18/2018 AUDREY AYOUB BLASTER HELPER Ot J98.4 OTHER DISORDERS OF LUNG 07/18/2018 AUDREY AYOUB APRN Ot R09.02 HYPOXEMIA 07/18/2018 AUDREY AYOUB BLASTER HELPER Ot R94.2 ABNORMAL RESULTS OF PULMONARY FUNCTION [...] 07/18/2018 MATILDE ADAMS MD Ot Z79.899 OTHER [facility] (CURRENT) DRUG THERAPY 07/23/2018 MATILDE ADAMS MD, Ot G47.33 OBSTRUCTIVE SLEEP APNEA (ADULT) (PEDIATR 07/23/2018 MATILDE ADAMS MD, Ot J44.9 CHRONIC OBSTRUCTIVE PULMONARY DISEASE, U 07/23/2018 MATILDE ADAMS MD Ot K21.0 GASTRO-ESOPHAGEAL REFLUX DISEASE WITH ES 07/23/2018 MATILDE ADAMS MD Ot K29.70 GASTRITIS, UNSPECIFIED, WITHOUT BLEEDING 07/23/2018 MATILDE ADAMS MD Ot K44.9 DIAPHRAGMATIC HERNIA WITHOUT OBSTRUCTION 07/23/2018 MATILDE ADAMS MD Ot Z79.899 OTHER [facility] (CURRENT) DRUG THERAPY 08/02/2018 AUDREY AYOUB APRN [...] OTHER PULMONARY EMBOLISM WITHOUT ACUTE C 08/27/2018 CROINE DO, WEN M Ot K43.9 VENTRAL HERNIA WITHOUT OBSTRUCTION OR GA 08/27/2018 WEN POOL DO Ot K76.0 FATTY (CHANGE OF) LIVER, NOT ELSEWHERE C 08/27/2018 WEN POOL DO Ot R22.43 LOCALIZED SWELLING, MASS AND LUMP, LOWER 08/27/2018 AUDREY AYOUB APRN Ot J44.9 CHRONIC OBSTRUCTIVE PULMONARY DISEASE, U 08/27/2018 AUDREY AYOUB BLASTER HELPER Ot E04.1 NONTOXIC SINGLE THYROID NODULE 08/27/2018 AUDREY AYOUB BLASTER HELPER Ot F41.9 ANXIETY DISORDER, UNSPECIFIED 08/27/2018 AUDREY AYOUB BLASTER HELPER Ot I26.99 OTHER PULMONARY EMBOLISM WITHOUT ACUTE C 08/27/2018 AUDREY AYOUB BLASTER HELPER Ot J44.9 CHRONIC OBSTRUCTIVE PULMONARY DISEASE, U 08/27/2018 AUDREY AYOUB BLASTER HELPER Ot J98.4 OTHER DISORDERS OF LUNG 08/27/2018 AUDREY AYOUB APRN Ot I26.99 OTHER PULMONARY EMBOLISM WITHOUT ACUTE C 08/27/2018 AUDREY AYOUB BLASTER HELPER Ot J44.9 CHRONIC OBSTRUCTIVE PULMONARY DISEASE, U 08/27/2018 AUDREY AYOUB BLASTER HELPER Ot J98.4 OTHER DISORDERS OF LUNG 08/27/2018 AUDREY AYOUB BLASTER HELPER Ot R09.02 HYPOXEMIA 08/27/2018 AUDREY AYOUB BLASTER HELPER Ot J42 UNSPECIFIED CHRONIC BRONCHITIS 08/27/2018 AUDREY AYOUB BLASTER HELPER Ot J45.909 UNSPECIFIED ASTHMA, UNCOMPLICATED 08/27/2018 AUDREY AYOUB BLASTER HELPER Ot J98.4 OTHER DISORDERS OF LUNG 08/27/2018 AUDREY AYOUB BLASTER HELPER Ot J42 UNSPECIFIED CHRONIC BRONCHITIS 08/27/2018 AUDREY AYOUB BLASTER HELPER Ot J45.909 UNSPECIFIED ASTHMA, UNCOMPLICATED 08/27/2018 AUDREY AYOUB BLASTER HELPER Ot J98.4 OTHER DISORDERS OF LUNG 08/27/2018 AUDREY AYOUB BLASTER HELPER Ot R09.02 HYPOXEMIA 08/27/2018 AUDREY AYOUB BLASTER HELPER Ot R94.2 ABNORMAL RESULTS OF PULMONARY FUNCTION S 08/27/2018 AUDREY AYOUB BLASTER HELPER Ot E07.9 DISORDER OF THYROID, UNSPECIFIED 08/27/2018 AUDREY AYOUB BLASTER HELPER Ot F41.9 ANXIETY DISORDER, UNSPECIFIED 08/27/2018 IESHA AYOUBINE Rosy BLASTER HELPER Ot G47.30 SLEEP APNEA, UNSPECIFIED 08/27/2018 IESHA AYOUBINE Rosy BLASTER HELPER Ot J44.9 CHRONIC OBSTRUCTIVE PULMONARY DISEASE, U 08/27/2018 IESHA AYOUBINE Rosy BLASTER HELPER Ot J45.909 UNSPECIFIED ASTHMA, UNCOMPLICATED 08/27/2018 AUDREY AYOUB BLASTER HELPER Ot J98.4 OTHER DISORDERS OF LUNG 08/27/2018 AUDREY AYOUB BLASTER HELPER Ot R09.02 HYPOXEMIA 08/27/2018 AUDREY AYOUB BLASTER HELPER Ot R94.2 ABNORMAL RESULTS OF PULMONARY FUNCTION S 08/27/2018 MATILDE ADAMS MD Ot K21.9 GASTRO-ESOPHAGEAL REFLUX DISEASE WITHOUT 08/27/2018 MATILDE ADAMS MD Ot Z01.818 ENCOUNTER FOR OTHER PREPROCEDURAL EXAMIN 08/27/2018 AUDREY AYOUB BLASTER HELPER Ot G47.00 INSOMNIA, UNSPECIFIED 08/27/2018 AUDREY AYOUB BLASTER HELPER Ot G47.30 SLEEP APNEA, UNSPECIFIED 08/27/2018 AUDREY AYOUB BLASTER HELPER Ot J44.9 CHRONIC OBSTRUCTIVE PULMONARY DISEASE, U 08/27/2018 AUDREY AYOUB BLASTER HELPER Ot Z01.818 ENCOUNTER FOR OTHER PREPROCEDURAL EXAMIN 08/27/2018 AUDREY AYOUB BLASTER HELPER Ot E07.9 DISORDER OF THYROID, UNSPECIFIED 08/27/2018 AUDREY AYOUB BLASTER HELPER Ot F41.9 ANXIETY DISORDER, UNSPECIFIED 08/27/2018 AUDREY AYOUB BLASTER HELPER Ot G47.30 SLEEP APNEA, UNSPECIFIED 08/27/2018 IESHA AYOUBINE Rosy BLASTER HELPER Ot J44.9 CHRONIC OBSTRUCTIVE PULMONARY DISEASE, U 08/27/2018 AUDREY AYOUB BLASTER HELPER Ot J45.909 UNSPECIFIED ASTHMA, UNCOMPLICATED 08/27/2018 AUDREY AYOUB BLASTER HELPER Ot J98.4 OTHER DISORDERS OF LUNG 08/27/2018 IESHA AYOBUINE Rosy BLASTER HELPER Ot R09.02 HYPOXEMIA 08/27/2018 IESHA AYOUBINE Rosy BLASTER HELPER Ot R94.2 ABNORMAL RESULTS OF PULMONARY FUNCTION [...] PERSONAL HISTORY OF TUBERCULOSIS 08/31/2018 WEN POOL DO Ot E04.1 NONTOXIC SINGLE THYROID NODULE 08/31/2018 WEN POOL DO, Ot I26.99 OTHER PULMONARY EMBOLISM WITHOUT ACUTE C 08/31/2018 WEN POOL DO Ot K43.9 VENTRAL HERNIA WITHOUT OBSTRUCTION OR GA 08/31/2018 WEN POOL DO Ot K76.0 FATTY (CHANGE OF) LIVER, NOT ELSEWHERE C 08/31/2018 WEN POOL DO Ot R22.43 LOCALIZED SWELLING, MASS AND LUMP, LOWER 08/31/2018 MEGA, AUDREY E BLASTER HELPER Ot J44.9 CHRONIC OBSTRUCTIVE PULMONARY DISEASE, U 08/31/2018 IESHA AYOUBINE Rosy BLASTER HELPER Ot E04.1 NONTOXIC SINGLE THYROID NODULE 08/31/2018 AUDREY AYOUB BLASTER HELPER Ot F41.9 ANXIETY DISORDER, UNSPECIFIED 08/31/2018 IESHA AYOUBINE Rosy BLASTER HELPER Ot I26.99 OTHER PULMONARY EMBOLISM WITHOUT ACUTE C 08/31/2018 AUDREY AYOUB BLASTER HELPER Ot J44.9 CHRONIC OBSTRUCTIVE PULMONARY DISEASE, U 08/31/2018 IESHA AYOUBINE Rosy BLASTER HELPER Ot J98.4 OTHER DISORDERS OF LUNG 08/31/2018 MEGAIESHA MAGANAINE Rosy BLASTER HELPER Ot I26.99 OTHER PULMONARY EMBOLISM WITHOUT ACUTE C 08/31/2018 IESHA AYOUBINE Rosy BLASTER HELPER Ot J44.9 CHRONIC OBSTRUCTIVE PULMONARY DISEASE, U 08/31/2018 IESHA AYOUBINE Rosy BLASTER HELPER Ot J98.4 OTHER DISORDERS OF LUNG 08/31/2018 AUDREY AYOUB BLASTER HELPER Ot R09.02 HYPOXEMIA 08/31/2018 AUDREY AYOUB BLASTER HELPER Ot J42 UNSPECIFIED CHRONIC BRONCHITIS 08/31/2018 IESHA AYOUBINE Rosy BLASTER HELPER Ot J45.909 UNSPECIFIED ASTHMA, UNCOMPLICATED 08/31/2018 MEGAIESHA MAGANAINE Rosy BLASTER HELPER Ot J98.4 OTHER DISORDERS OF LUNG 08/31/2018 AUDREY AYOUB BLASTER HELPER Ot J42 UNSPECIFIED CHRONIC BRONCHITIS 08/31/2018 IESHA AYOUBINE Rsoy BLASTER HELPER Ot J45.909 UNSPECIFIED ASTHMA, UNCOMPLICATED 08/31/2018 AUDREY AYOUB BLASTER HELPER Ot J98.4 OTHER DISORDERS OF LUNG 08/31/2018 AUDREY AYOUB BLASTER HELPER Ot R09.02 HYPOXEMIA 08/31/2018 AUDREY AYOUB BLASTER HELPER Ot R94.2 ABNORMAL RESULTS OF PULMONARY FUNCTION S 08/31/2018 AUDREY AYOUB BLASTER HELPER Ot E07.9 DISORDER OF THYROID, UNSPECIFIED 08/31/2018 IESHA AYOUBINE Rosy BLASTER HELPER Ot F41.9 ANXIETY DISORDER, UNSPECIFIED 08/31/2018 MEGAIESHA MAGANAINE Rosy BLASTER HELPER Ot G47.30 SLEEP APNEA, UNSPECIFIED 08/31/2018 AUDREY AYOUB BLASTER HELPER Ot J44.9 CHRONIC OBSTRUCTIVE PULMONARY DISEASE, U 08/31/2018 AUDREY AYOUB BLASTER HELPER Ot J45.909 UNSPECIFIED ASTHMA, UNCOMPLICATED 08/31/2018 AUDREY AYOUB BLASTER HELPER Ot J98.4 OTHER DISORDERS OF LUNG 08/31/2018 AUDREY AYOUB BLASTER HELPER Ot R09.02 HYPOXEMIA 08/31/2018 AUDREY AYOUB BLASTER HELPER Ot R94.2 ABNORMAL RESULTS OF PULMONARY FUNCTION S 08/31/2018 MATILDE ADAMS MD Ot K21.9 GASTRO-ESOPHAGEAL REFLUX DISEASE WITHOUT 08/31/2018 MATILDE ADAMS MD Ot Z01.818 ENCOUNTER FOR OTHER PREPROCEDURAL EXAMIN 08/31/2018 AUDREY AYOUB APRN Ot G47.00 INSOMNIA, UNSPECIFIED 08/31/2018 AUDREY AYOUB APRN Ot G47.30 SLEEP APNEA, UNSPECIFIED 08/31/2018 AUDREY AYOUB BLASTER HELPER Ot J44.9 CHRONIC OBSTRUCTIVE PULMONARY DISEASE, U 08/31/2018 AUDREY AYOUB APRN Ot Z01.818 ENCOUNTER FOR OTHER PREPROCEDURAL EXAMIN 09/01/2018 AUDREY AYOUB APRN Ot G47.30 SLEEP APNEA, UNSPECIFIED 09/01/2018 AUDREY AYOUB APRN Ot J42 UNSPECIFIED CHRONIC BRONCHITIS 09/01/2018 AUDREY AYOUB APRN Ot J44.9 CHRONIC OBSTRUCTIVE PULMONARY DISEASE, U 09/01/2018 AUDREY AYOUB BLASTER HELPER Ot J45.909 UNSPECIFIED ASTHMA, UNCOMPLICATED 09/01/2018 AUDREY AYOUB APRN Ot K76.0 FATTY (CHANGE OF) LIVER, NOT ELSEWHERE C 09/01/2018 AUDREY AYOUB APRN Ot R16.2 HEPATOMEGALY WITH SPLENOMEGALY, NOT ELSE 09/01/2018 AUDREY AYOUB BLASTER HELPER Ot Z86.11 PERSONAL HISTORY OF TUBERCULOSIS 09/01/2018 WEN POOL DO, Ot E04.1 NONTOXIC SINGLE THYROID NODULE 09/01/2018 WEN POOL DO, Ot I26.99 OTHER PULMONARY EMBOLISM WITHOUT ACUTE C 09/01/2018 WEN POOL DO, Ot K43.9 VENTRAL HERNIA WITHOUT OBSTRUCTION OR GA 09/01/2018 WEN POOL DO, Ot K76.0 FATTY (CHANGE OF) LIVER, NOT ELSEWHERE C 09/01/2018 CORINE DO, WEN M Ot R22.43 LOCALIZED SWELLING, MASS AND LUMP, LOWER 09/01/2018 AUDREY AYOUB BLASTER HELPER Ot J44.9 CHRONIC OBSTRUCTIVE PULMONARY DISEASE, U 09/01/2018 AUDREY AYOUB BLASTER HELPER Ot E04.1 NONTOXIC SINGLE THYROID NODULE 09/01/2018 AUDREY AYOUB BLASTER HELPER Ot F41.9 ANXIETY DISORDER, UNSPECIFIED 09/01/2018 AUDREY AYOUB BLASTER HELPER Ot I26.99 OTHER PULMONARY EMBOLISM WITHOUT ACUTE C 09/01/2018 AUDREY AYOUB BLASTER HELPER Ot J44.9 CHRONIC OBSTRUCTIVE PULMONARY DISEASE, U 09/01/2018 AUDREY AYOUB BLASTER HELPER Ot J98.4 OTHER DISORDERS OF LUNG 09/01/2018 AUDREY AYOUB BLASTER HELPER Ot I26.99 OTHER PULMONARY EMBOLISM WITHOUT ACUTE C 09/01/2018 AUDREY AYOUB BLASTER HELPER Ot J44.9 CHRONIC OBSTRUCTIVE PULMONARY DISEASE, U 09/01/2018 AUDREY AYOUB BLASTER HELPER Ot J98.4 OTHER DISORDERS OF LUNG 09/01/2018 AUDREY AYOUB BLASTER HELPER Ot R09.02 HYPOXEMIA 09/01/2018 AUDREY AYOUB BLASTER HELPER Ot J42 UNSPECIFIED CHRONIC BRONCHITIS 09/01/2018 AUDREY AYOUB BLASTER HELPER Ot J45.909 UNSPECIFIED ASTHMA, UNCOMPLICATED 09/01/2018 AUDREY AYOUB BLASTER HELPER Ot J98.4 OTHER DISORDERS OF LUNG 09/01/2018 AUDREY AYOUB BLASTER HELPER Ot J42 UNSPECIFIED CHRONIC BRONCHITIS 09/01/2018 AUDREY AYOUB BLASTER HELPER Ot J45.909 UNSPECIFIED ASTHMA, UNCOMPLICATED 09/01/2018 AUDREY AYOUB BLASTER HELPER Ot J98.4 OTHER DISORDERS OF LUNG 09/01/2018 AUDREY AYOUB BLASTER HELPER Ot R09.02 HYPOXEMIA 09/01/2018 AUDREY AYOUB BLASTER HELPER Ot R94.2 ABNORMAL RESULTS OF PULMONARY FUNCTION S 09/01/2018 AUDREY AYOUB BLASTER HELPER Ot E07.9 DISORDER OF THYROID, UNSPECIFIED 09/01/2018 AUDREY AYOUB BLASTER HELPER Ot F41.9 ANXIETY DISORDER, UNSPECIFIED 09/01/2018 AUDREY AYOUB BLASTER HELPER Ot G47.30 SLEEP APNEA, UNSPECIFIED 09/01/2018 AUDREY AYOUB BLASTER HELPER Ot J44.9 CHRONIC OBSTRUCTIVE PULMONARY DISEASE, U [...] UNSPECIFIED 09/01/2018 DEMETRIUS LOPEZ MD Ot Z79.51 FDC (CURRENT) USE OF INHALED STERO 09/01/2018 DEMETRIUS LOPEZ MD Ot Z86.711 PERSONAL HISTORY OF PULMONARY EMBOLISM 09/01/2018 DEMETRIUS LOPEZ MD, Ot Z86.79 PERSONAL HISTORY OF OTHER DISEASES OF TH 09/01/2018 DEMETRIUS LOPEZ MD Ot Z87.19 PERSONAL HISTORY OF OTHER DISEASES OF TH 09/01/2018 DEMETRIUS LOPEZ MD Ot Z88.5 ALLERGY STATUS TO NARCOTIC AGENT STATUS 09/01/2018 DEMETIRUS LOPEZ MD Ot Z88.8 ALLERGY STATUS TO [...] Ot R10.12 LEFT UPPER QUADRANT PAIN 09/03/2018 DEMERTIUS LOPEZ MD Ot R50.9 FEVER, UNSPECIFIED 09/03/2018 DEMETRIUS LOPEZ MD Ot Z79.51 FDC (CURRENT) USE OF INHALED STERO 09/03/2018 DEMETRIUS LOPEZ MD Ot Z86.711 PERSONAL HISTORY OF PULMONARY EMBOLISM 09/03/2018 DEMETRIUS LOPEZ MD, Ot Z86.79 PERSONAL HISTORY OF OTHER DISEASES OF TH 09/03/2018 DEMETRIUS LOPEZ MD Ot Z87.19 PERSONAL HISTORY OF OTHER DISEASES OF TH 09/03/2018 DEMETRIUS LOPEZ MD, Ot Z88.5 ALLERGY STATUS TO NARCOTIC AGENT STATUS 09/03/2018 DEMETRIUS LOPEZ MD Ot Z88.8 ALLERGY STATUS TO OTH DRUG/MEDS/BIOL SUB 09/03/2018 DEMETRIUS LOPEZ MD Ot Z90.710 ACQUIRED ABSENCE OF BOTH CERVIX AND UTER 09/03/2018 DEMETRIUS LOPEZ MD Ot Z98.84 BARIATRIC SURGERY STATUS 09/03/2018 DEMETRIUS LOPEZ MD, Ot Z98.890 OTHER SPECIFIED POSTPROCEDURAL STATES 09/03/2018 [...] UNSPECIFIED 09/03/2018 DEMETRIUS LOPEZ MD Ot Z79.51 FDC (CURRENT) USE OF INHALED STERO 09/03/2018 DEMETRIUS LOPEZ MD Ot Z86.711 PERSONAL HISTORY OF PULMONARY EMBOLISM 09/03/2018 DEMETRIUS LOPEZ MD Ot Z86.79 PERSONAL HISTORY OF OTHER DISEASES OF 09/03/2018 DEMETRIUS LOPEZ MD, Ot Z87.19 PERSONAL HISTORY OF OTHER DISEASES OF 09/03/2018 DEMETRIUS OLPEZ MD Ot Z88.5 ALLERGY STATUS TO NARCOTIC AGENT STATUS 09/03/2018 DEMETRIUS LOPEZ MD Ot Z88.8 ALLERGY STATUS TO OTH DRUG/MEDS/BIOL SUB 09/03/2018 DEMETRIUS LOPEZ MD Ot Z90.710 ACQUIRED ABSENCE OF BOTH CERVIX AND UTER 09/03/2018 DEMETRIUS LOPEZ MD Ot Z98.84 BARIATRIC SURGERY STATUS 09/03/2018 DEMETRIUS LOPEZ MD Ot Z98.890 OTHER SPECIFIED POSTPROCEDURAL STATES 09/04/2018 [...] UNSPECIFIED 09/04/2018 DEMETRIUS LOPEZ MD Ot Z79.51 FDC (CURRENT) USE OF INHALED STERO 09/04/2018 DEMETRIUS LOPEZ MD Ot Z86.711 PERSONAL HISTORY OF PULMONARY EMBOLISM 09/04/2018 DEMETRIUS LOPEZ MD Ot Z86.79 PERSONAL HISTORY OF OTHER DISEASES OF TH 09/04/2018 DEMETRIUS LOPEZ MD Ot Z87.19 PERSONAL HISTORY OF OTHER DISEASES OF TH 09/04/2018 DEMETRIUS LOPEZ MD Ot Z88.5 ALLERGY STATUS TO NARCOTIC AGENT STATUS 09/04/2018 DEMETRIUS LOPEZ MD Ot Z88.8 ALLERGY STATUS TO OTH DRUG/MEDS/BIOL SUB 09/04/2018 DEMETRIUS LOPEZ MD Ot Z90.710 ACQUIRED ABSENCE OF BOTH CERVIX AND UTER 09/04/2018 DEMETRIUS LOPEZ MD Ot Z98.84 BARIATRIC SURGERY STATUS 09/04/2018 DEMETRIUS LOPEZ MD, Ot Z98.890 OTHER SPECIFIED POSTPROCEDURAL STATES 09/06/2018 DEMETRIUS LOPEZ MD Ot E86.0 DEHYDRATION 09/06/2018 DEMETRIUS LOPEZ MD Ot F32.9 MAJOR DEPRESSIVE DISORDER, SINGLE EPISOD 09/06/2018 DEMETRIUS LOPEZ MD, Ot F41.9 ANXIETY DISORDER, UNSPECIFIED 09/06/2018 DEMETRIUS LOPEZ MD, Ot F64.9 GENDER IDENTITY DISORDER, UNSPECIFIED 09/06/2018 [...] UNSPECIFIED 09/06/2018 DEMETRIUS LOPEZ MD Ot Z79.51 FDC (CURRENT) USE OF INHALED STERO 09/06/2018 DEMETRIUS LOPEZ MD Ot Z86.711 PERSONAL HISTORY OF PULMONARY EMBOLISM 09/06/2018 DEMETRIUS LOPEZ MD Ot Z86.79 PERSONAL HISTORY OF OTHER DISEASES OF TH 09/06/2018 DEMETRIUS LOPEZ MD Ot Z87.19 PERSONAL HISTORY OF OTHER DISEASES OF TH 09/06/2018 DEMETRIUS LOPEZ MD Ot Z88.5 ALLERGY STATUS TO NARCOTIC AGENT STATUS 09/06/2018 DEMETRIUS LOPEZ MD Ot Z88.8 ALLERGY STATUS TO OTH DRUG/MEDS/BIOL SUB 09/06/2018 DEMETRIUS LOPEZ MD Ot Z90.710 ACQUIRED ABSENCE OF BOTH CERVIX AND UTER 09/06/2018 DEMETRIUS LOPEZ MD Ot Z98.84 BARIATRIC SURGERY STATUS 09/06/2018 DEMETRIUS LOPEZ MD Ot Z98.890 OTHER SPECIFIED POSTPROCEDURAL STATES 09/10/2018 MATILDE ADAMS MD Ot R10.9 UNSPECIFIED ABDOMINAL PAIN 09/10/2018 MATILDE ADAMS MD Ot Z98.84 BARIATRIC SURGERY STATUS 09/10/2018 AUDREY AYOUB BLASTER HELPER Ot E07.9 DISORDER OF THYROID, UNSPECIFIED 09/10/2018 MEGAAUDREY MAGANA BLASTER HELPER Ot F41.9 ANXIETY DISORDER, UNSPECIFIED 09/10/2018 AUDREY AYOUB BLASTER HELPER Ot G47.30 SLEEP APNEA, UNSPECIFIED 09/10/2018 AUDREY AYOUB BLASTER HELPER Ot J44.9 CHRONIC OBSTRUCTIVE PULMONARY DISEASE, U 09/10/2018 AUDREY AYOUB BLASTER HELPER Ot J45.909 UNSPECIFIED ASTHMA, UNCOMPLICATED 09/10/2018 AUDREY AYOUB APRN Ot J98.4 OTHER DISORDERS OF LUNG 09/10/2018 AUDREY AYOUB BLASTER HELPER Ot R09.02 HYPOXEMIA 09/10/2018 AUDREY AYOUB BLASTER HELPER Ot R94.2 ABNORMAL RESULTS OF PULMONARY FUNCTION [...] SLEEP APNEA (ADULT) (PEDIATR 09/10/2018 MATILDE ADAMS MD Ot J44.9 CHRONIC OBSTRUCTIVE PULMONARY DISEASE, U 09/10/2018 MATILDE ADAMS MD Ot 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 09/10/2018 MATILDE ADAMS MD, Ot M16.0 BILATERAL PRIMARY OSTEOARTHRITIS OF HIP 09/10/2018 MATILDE ADAMS MD, Ot M17.0 BILATERAL PRIMARY OSTEOARTHRITIS OF KNEE 09/10/2018 MATILDE ADAMS MD Ot M79.7 FIBROMYALGIA 09/10/2018 MATILDE ADAMS MD, Ot R60.9 EDEMA, UNSPECIFIED 09/10/2018 MATILDE ADAMS MD Ot Z99.81 DEPENDENCE ON SUPPLEMENTAL OXYGEN 09/11/2018 MATILDE ADAMS MD Ot E03.9 HYPOTHYROIDISM, UNSPECIFIED 09/11/2018 MATILDE ADAMS MD, Ot E66.01 MORBID (SEVERE) OBESITY DUE TO EXCESS CA 09/11/2018 MATILDE ADAMS MD Ot E78.00 PURE HYPERCHOLESTEROLEMIA, UNSPECIFIED 09/11/2018 MATILDE ADAMS MD Ot F32.9 MAJOR DEPRESSIVE DISORDER, SINGLE EPISOD 09/11/2018 MATILDE ADAMS MD, Ot F41.9 ANXIETY DISORDER, UNSPECIFIED 09/11/2018 MATILDE ADAMS MD, Ot G25.81 RESTLESS LEGS SYNDROME 09/11/2018 MATILDE ADAMS MD Ot G47.00 INSOMNIA, UNSPECIFIED 09/11/2018 MATILDE ADAMS MD Ot G47.33 OBSTRUCTIVE SLEEP APNEA (ADULT) (PEDIATR 09/11/2018 MATILDE ADAMS MD, Ot J44.9 CHRONIC OBSTRUCTIVE PULMONARY DISEASE, U 09/11/2018 MATILDE ADAMS MD Ot 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 09/11/2018 MATILDE ADAMS MD, Ot M16.0 BILATERAL PRIMARY OSTEOARTHRITIS OF HIP 09/11/2018 MATILDE ADAMS MD Ot M17.0 BILATERAL PRIMARY OSTEOARTHRITIS OF KNEE 09/11/2018 MATILDE ADAMS MD, Ot M79.7 FIBROMYALGIA 09/11/2018 MATILDE ADAMS MD, Ot R60.9 EDEMA, UNSPECIFIED 09/11/2018 MATILDE ADAMS [...] SLEEP APNEA (ADULT) (PEDIATR 09/13/2018 MATILDE ADAMS MD Ot J44.9 CHRONIC OBSTRUCTIVE PULMONARY DISEASE, U 09/13/2018 MATILDE ADAMS MD Ot 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 09/13/2018 MATILDE ADAMS MD, Ot M16.0 BILATERAL PRIMARY OSTEOARTHRITIS OF HIP 09/13/2018 MATILDE ADAMS MD, Ot M17.0 BILATERAL PRIMARY OSTEOARTHRITIS OF KNEE 09/13/2018 MATILDE ADAMS MD, Ot M79.7 FIBROMYALGIA 09/13/2018 MATILDE ADAMS MD, Ot R60.9 EDEMA, UNSPECIFIED 09/13/2018 MATILDE ADAMS MD, Ot Z99.81 DEPENDENCE ON SUPPLEMENTAL OXYGEN 09/13/2018 MATILDE ADAMS MD Ot E03.9 HYPOTHYROIDISM, UNSPECIFIED 09/13/2018 MATILDE ADAMS MD, Ot E66.01 MORBID (SEVERE) OBESITY DUE TO EXCESS CA 09/13/2018 MATILDE ADAMS MD, Ot E78.00 PURE HYPERCHOLESTEROLEMIA, UNSPECIFIED 09/13/2018 MATILDE ADAMS MD, Ot F32.9 MAJOR DEPRESSIVE DISORDER, SINGLE EPISOD 09/13/2018 MATILDE ADAMS MD, Ot F41.9 ANXIETY DISORDER, UNSPECIFIED 09/13/2018 MATILDE ADAMS MD, Ot G25.81 RESTLESS LEGS SYNDROME 09/13/2018 MATILDE [...] PRIMARY OSTEOARTHRITIS OF KNEE 09/13/2018 MATILDE ADAMS MD, Ot M79.7 FIBROMYALGIA 09/13/2018 MATILDE ADAMS MD, Ot R60.9 EDEMA, UNSPECIFIED 09/13/2018 MATILDE ADAMS MD, Ot Z99.81 DEPENDENCE ON SUPPLEMENTAL OXYGEN 09/14/2018 MATILDE ADAMS MD, Ot E03.9 HYPOTHYROIDISM, UNSPECIFIED 09/14/2018 MATILDE ADAMS [...] SLEEP APNEA (ADULT) (PEDIATR 09/14/2018 MATILDE ADAMS MD Ot J44.9 CHRONIC OBSTRUCTIVE PULMONARY DISEASE, U 09/14/2018 MATILDE ADAMS MD Ot 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 09/14/2018 MATILDE ADAMS MD Ot M16.0 BILATERAL PRIMARY OSTEOARTHRITIS OF HIP 09/14/2018 MATILDE ADAMS MD, Ot M17.0 BILATERAL PRIMARY [...] OF OTHER BARIATRIC P 09/15/2018 MATILDE ADAMS MD, Ot M16.0 BILATERAL PRIMARY [...] E78.00 PURE HYPERCHOLESTEROLEMIA, UNSPECIFIED 09/16/2018 MATILDE ADAMS MD, Ot F32.9 MAJOR DEPRESSIVE [...] OF OTHER BARIATRIC P 09/16/2018 MATILDE ADAMS MD Ot M16.0 BILATERAL PRIMARY OSTEOARTHRITIS OF HIP 09/16/2018 MATILDE ADAMS MD Ot M17.0 BILATERAL PRIMARY OSTEOARTHRITIS OF KNEE 09/16/2018 MATILDE ADAMS MD, Ot M79.7 FIBROMYALGIA 09/16/2018 MATILDE ADAMS MD, Ot R60.9 EDEMA, UNSPECIFIED 09/16/2018 MATILDE ADAMS [...] F41.9 ANXIETY DISORDER, UNSPECIFIED 09/17/2018 MATILDE ADAMS MD, Ot G25.81 RESTLESS LEGS SYNDROME 09/17/2018 MATILDE ADAMS MD, Ot G47.00 INSOMNIA, UNSPECIFIED 09/17/2018 MATILDE ADAMS MD Ot G47.33 OBSTRUCTIVE SLEEP APNEA (ADULT) (PEDIATR 09/17/2018 MATILDE ADAMS MD, Ot J44.9 CHRONIC OBSTRUCTIVE PULMONARY DISEASE, U 09/17/2018 MATILDE ADAMS MD Ot 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 09/17/2018 MATILDE ADAMS MD, Ot M16.0 BILATERAL PRIMARY OSTEOARTHRITIS OF HIP 09/17/2018 MATILDE ADAMS MD, Ot M17.0 BILATERAL PRIMARY OSTEOARTHRITIS OF KNEE 09/17/2018 MATILDE ADAMS MD Ot M79.7 FIBROMYALGIA 09/17/2018 MATILDE ADAMS MD, Ot R60.9 EDEMA, UNSPECIFIED 09/17/2018 MATILDE ADAMS MD, Ot Z99.81 DEPENDENCE ON [...] LEFT UPPER QUADRANT PAIN 09/18/2018 DEMETRIUS LOPEZ MD Ot R50.9 FEVER, UNSPECIFIED 09/18/2018 DEMETRIUS LOPEZ MD, Ot Z79.51 FDC (CURRENT) USE OF INHALED STERO 09/18/2018 DEMETRIUS [...] OBSTRUCTIVE PULMONARY DISEASE, U 09/18/2018 MATILDE ADAMS MD, Ot K95.89 OTHER COMPLICATIONS OF OTHER BARIATRIC [...] MD, Ot E78.00 PURE HYPERCHOLESTEROLEMIA, UNSPECIFIED 09/18/2018 MATILED ADAMS MD, Ot F32.9 MAJOR DEPRESSIVE DISORDER, [...] DEPENDENCE ON SUPPLEMENTAL OXYGEN 10/24/2018 MATILDE ADAMS MD Ot R10.9 UNSPECIFIED ABDOMINAL PAIN 10/24/2018 MATILDE ADAMS MD, Ot Z98.84 BARIATRIC SURGERY STATUS 11/05/2018 MATILDE ADAMS MD, Ot K21.9 GASTRO-ESOPHAGEAL REFLUX DISEASE WITHOUT 11/05/2018 MATILDE ADAMS MD Ot Z01.818 ENCOUNTER FOR OTHER PREPROCEDURAL EXAMIN 11/08/2018 AUDREY AYOUB BLASTER HELPER Ot G47.00 INSOMNIA, UNSPECIFIED 11/08/2018 MEGA AUDREY E BLASTER HELPER Ot G47.30 SLEEP APNEA, UNSPECIFIED 11/08/2018 MEGA AUDREY E BLASTER HELPER Ot J44.9 CHRONIC OBSTRUCTIVE PULMONARY DISEASE, U 11/08/2018 IESHA AYOUBINE Rosy BLASTER HELPER Ot Z01.818 ENCOUNTER FOR OTHER PREPROCEDURAL EXAMIN 12/05/2018 IESHA AYOUBINE Rosy BLASTER HELPER Ot G47.00 INSOMNIA, UNSPECIFIED 12/05/2018 MEGA, AUDREY E BLASTER HELPER Ot G47.30 SLEEP APNEA, UNSPECIFIED 12/05/2018 IESHA AYOUBINE E BLASTER HELPER Ot J44.9 CHRONIC OBSTRUCTIVE PULMONARY DISEASE, U 12/05/2018 IESHA AYOUBINE Rosy BLASTER HELPER Ot Z01.818 ENCOUNTER FOR OTHER PREPROCEDURAL EXAMIN 12/20/2018 MATILDE ADAMS MD Ot E66.01 MORBID (SEVERE) OBESITY DUE TO EXCESS CA 12/20/2018 MATILDE ADAMS MD Ot E78.00 PURE HYPERCHOLESTEROLEMIA, UNSPECIFIED 12/20/2018 MATILDE ADAMS MD, Ot F32.9 MAJOR DEPRESSIVE DISORDER, SINGLE EPISOD 12/20/2018 MATILDE ADAMS MD, Ot F41.9 ANXIETY DISORDER, UNSPECIFIED 12/20/2018 MATILDE ADAMS MD Ot G47.33 OBSTRUCTIVE SLEEP APNEA (ADULT) (PEDIATR 12/20/2018 MATILDE ADAMS MD Ot I10 ESSENTIAL (PRIMARY) HYPERTENSION 12/20/2018 MATILDE ADAMS MD, Ot K21.9 GASTRO-ESOPHAGEAL REFLUX DISEASE WITHOUT 12/20/2018 MATILDE ADAMS MD, Ot K52.9 NONINFECTIVE GASTROENTERITIS AND COLITIS 12/20/2018 MATILDE ADAMS MD, Ot K59.09 OTHER CONSTIPATION 12/20/2018 MATILDE ADAMS MD, Ot M19.91 PRIMARY OSTEOARTHRITIS, UNSPECIFIED SITE 12/20/2018 MATILDE ADAMS MD, Ot M79.7 FIBROMYALGIA 12/20/2018 MATILDE ADAMS MD, Ot N28.9 DISORDER OF KIDNEY AND URETER, UNSPECIFI 12/20/2018 MATILDE DAAMS MD, Ot R60.0 LOCALIZED EDEMA 12/20/2018 MATILDE ADAMS MD, Ot Z68.41 BODY MASS INDEX (BMI) 40.0-44.9, ADULT 12/20/2018 MATILDE ADAMS MD, Ot Z79.899 OTHER [facility] (CURRENT) DRUG THERAPY 12/20/2018 MATILDE ADAMS MD, Ot Z80.1 FAMILY HISTORY OF MALIG NEOPLASM OF TRAC 12/20/2018 MATILDE ADAMS MD, Ot Z80.3 FAMILY HISTORY OF MALIGNANT NEOPLASM OF 12/20/2018 MATILDE ADAMS MD, Ot Z86.711 PERSONAL HISTORY OF PULMONARY EMBOLISM 12/20/2018 MATILDE ADAMS MD, Ot Z88.5 ALLERGY STATUS TO NARCOTIC AGENT STATUS 12/20/2018 MATILDE ADAMS MD, Ot E66.01 MORBID (SEVERE) OBESITY DUE TO EXCESS CA 12/20/2018 MATILDE ADAMS MD, Ot E78.00 PURE HYPERCHOLESTEROLEMIA, UNSPECIFIED 12/20/2018 MATILDE ADAMS MD, Ot F32.9 MAJOR DEPRESSIVE DISORDER, SINGLE EPISOD 12/20/2018 MATILDE ADAMS MD, Ot F41.9 ANXIETY DISORDER, UNSPECIFIED 12/20/2018 MATILDE ADAMS MD, Ot G47.33 OBSTRUCTIVE SLEEP APNEA (ADULT) (PEDIATR 12/20/2018 MATILDE ADAMS MD, Ot I10 ESSENTIAL (PRIMARY) HYPERTENSION 12/20/2018 MATILDE ADAMS MD, Ot K21.9 GASTRO-ESOPHAGEAL REFLUX DISEASE WITHOUT 12/20/2018 MATILDE ADAMS MD, Ot K52.9 NONINFECTIVE GASTROENTERITIS AND COLITIS 12/20/2018 MATILDE ADAMS MD, Ot K59.09 OTHER CONSTIPATION 12/20/2018 MATILDE ADAMS MD, Ot M19.91 PRIMARY OSTEOARTHRITIS, UNSPECIFIED SITE 12/20/2018 MATILDE ADAMS MD, Ot M79.7 FIBROMYALGIA 12/20/2018 MATILDE ADAMS MD, Ot N28.9 DISORDER OF KIDNEY AND URETER, UNSPECIFI 12/20/2018 MATILDE ADAMS MD, Ot R60.0 LOCALIZED EDEMA 12/20/2018 MATILDE ADAMS MD, Ot Z68.41 BODY MASS INDEX (BMI) 40.0-44.9, ADULT 12/20/2018 MATILDE ADAMS MD, Ot Z79.899 OTHER RECORDS ANALYSIS MANAGER (CURRENT) DRUG THERAPY 12/20/2018 MATILDE ADAMS MD, Ot Z80.1 FAMILY HISTORY OF MALIG NEOPLASM OF TRAC 12/20/2018 MATILDE ADAMS MD, Ot Z80.3 FAMILY HISTORY OF MALIGNANT NEOPLASM OF 12/20/2018 MATILDE ADAMS MD, Ot Z86.711 PERSONAL HISTORY OF PULMONARY EMBOLISM 12/20/2018 MATILDE ADAMS MD, Ot Z88.5 ALLERGY STATUS TO NARCOTIC AGENT STATUS 01/14/2019 MATILDE ADAMS MD, Ot K21.9 GASTRO-ESOPHAGEAL REFLUX DISEASE WITHOUT 01/14/2019 MATILDE ADAMS MD, Ot Z01.818 ENCOUNTER FOR OTHER PREPROCEDURAL EXAMIN 01/23/2019 MATILDE ADAMS MD, Ot E03.9 HYPOTHYROIDISM, UNSPECIFIED 01/23/2019 MATILDE ADAMS MD, Ot E78.00 PURE HYPERCHOLESTEROLEMIA, UNSPECIFIED 01/23/2019 MATILDE ADAMS MD, Ot F32.9 MAJOR DEPRESSIVE DISORDER, SINGLE EPISOD 01/23/2019 MATILDE ADAMS MD, Ot F41.9 ANXIETY DISORDER, UNSPECIFIED 01/23/2019 MATILDE ADAMS MD, Ot G47.33 OBSTRUCTIVE SLEEP APNEA (ADULT) (PEDIATR 01/23/2019 MATILDE ADAMS MD, Ot G62.9 POLYNEUROPATHY, UNSPECIFIED 01/23/2019 MATILDE ADAMS MD, Ot J44.9 CHRONIC OBSTRUCTIVE PULMONARY DISEASE, U 01/23/2019 MATILDE ADAMS MD, Ot K21.9 GASTRO-ESOPHAGEAL REFLUX DISEASE WITHOUT 01/23/2019 MATILDE ADAMS MD, Ot K56.600 PARTIAL INTESTINAL OBSTRUCTION, UNSPECIF 01/23/2019 MATILDE ADAMS MD, Ot K57.30 DVRTCLOS OF LG INT W/O PERFORATION OR AB 01/23/2019 MATILDE ADAMS MD, Ot K59.09 OTHER CONSTIPATION 01/23/2019 MATILDE ADAMS MD, Ot K64.1 SECOND DEGREE HEMORRHOIDS 01/23/2019 MATILDE ADAMS MD, Ot M19.91 PRIMARY OSTEOARTHRITIS, UNSPECIFIED SITE 01/23/2019 MATILDE ADAMS MD, Ot M79.7 FIBROMYALGIA 01/23/2019 MATILDE ADAMS MD, Ot N31.9 NEUROMUSCULAR DYSFUNCTION OF BLADDER, UN 01/23/2019 MATILDE ADAMS MD, Ot R01.1 CARDIAC MURMUR, UNSPECIFIED 01/23/2019 MATILDE ADAMS MD, Ot R60.0 LOCALIZED EDEMA 01/23/2019 MATILDE ADAMS MD, Ot Z98.84 BARIATRIC SURGERY STATUS 01/23/2019 MATILDE ADAMS MD, Ot Z99.89 DEPENDENCE ON OTHER ENABLING MACHINES AN Procedures Code Description [place] [id number] OFFICE/OUTPATIENT VISIT NEW 04/03/2018 [id number] OFFICE/OUTPATIENT VISIT EST 08/06/2018 [id number] EXCISION OF STOMACH, PERCUTANEOUS ENDOSC 08/30/2018 [id number] INSERTION OF INFUSION DEV INTO SUP VENA [...] NRG Measurement of body temperature 98.2 NRG Arterial blood gas measurement - 07/31/18 11:24 [...] NRG Measurement of body temperature 98.0 NRG Methicillin resistant Staphylococcus aureus (MRSA) screening culture [...] INFLUENZA A AND B ANTIGENS BY IA [facility] Bacterial blood culture - 09/01/18 00:13 Bacterial blood culture [facility] Complete blood count (CBC) with [...] Blood erythrocyte morphology finding identification NORMAL NRG Complete blood count (CBC) with automated white blood cell (WBC) differential - 12/19/18 05:20 Blood leukocytes automated count (number/volume) 4.3 10*3/uL 4.3-11.0 Blood erythrocytes automated count (number/volume) 4.60 10*6/uL 4.35-5.85 Venous blood hemoglobin measurement (mass/volume) 11.3 g/dL 11.5-16.0 Blood hematocrit (volume fraction) 36 % 35-52 Automated erythrocyte mean corpuscular volume 78 [foz_us] 80-99 Automated erythrocyte mean corpuscular hemoglobin (mass per erythrocyte) 25 pg 25-34 Automated erythrocyte mean corpuscular hemoglobin concentration measurement ( mass/volume) 32 g/dL 32-36 Automated erythrocyte distribution width ratio 15.3 % 10.0-14.5 Automated blood platelet count (count/volume) 234 10*3/uL 130-400 Automated blood platelet mean volume measurement 11.0 [foz_us] 7.4-10.4 Automated blood neutrophils/100 leukocytes 55 % 42-75 Automated blood lymphocytes/100 leukocytes 20 % 12-44 Blood monocytes/100 leukocytes 23 % 0-12 Automated blood eosinophils/100 leukocytes 2 % 0-10 Automated blood basophils/100 leukocytes 0 % 0-10 Blood neutrophils automated count (number/volume) 2.4 10*3 1.8-7.8 Blood lymphocytes automated count (number/volume) 0.9 10*3 1.0-4.0 Blood monocytes automated count (number/volume) 1.0 10*3 0.0-1.0 Automated eosinophil count 0.1 10*3/uL 0.0-0.3 Automated blood basophil count (count/volume) 0.0 10*3/uL 0.0-0.1 Comprehensive metabolic panel - 12/19/18 05:20 Serum or plasma sodium measurement (moles/volume) 138 mmol/L 135-145 Serum or plasma potassium measurement (moles/volume) 3.8 mmol/L 3.6-5.0 Serum or plasma chloride measurement (moles/volume) 104 mmol/L 98-107 Carbon dioxide 24 mmol/L 21-32 Serum or plasma anion gap determination (moles/volume) 10 mmol/L 5-14 Serum or plasma urea nitrogen measurement (mass/volume) 37 mg/dL 7-18 Serum or plasma creatinine measurement (mass/volume) 0.92 mg/dL 0.60-1.30 Serum or plasma urea nitrogen/creatinine mass ratio 40 NRG Serum or plasma creatinine measurement with calculation of estimated glomerular filtration rate > NRG Serum or plasma glucose measurement (mass/volume) 118 mg/dL 70-105 Serum or plasma calcium measurement (mass/volume) 9.0 mg/dL 8.5-10.1 Serum or plasma total bilirubin measurement (mass/volume) 0.4 mg/dL 0.1-1.0 Serum or plasma alkaline phosphatase measurement (enzymatic activity/volume) 95 U/L 40-136 Serum or plasma aspartate aminotransferase measurement (enzymatic activity/ volume) 15 U/L 5-34 Serum or plasma alanine aminotransferase measurement (enzymatic activity/volume ) 12 U/L 0-55 Serum or plasma protein measurement (mass/volume) 5.6 g/dL 6.4-8.2 Serum or plasma albumin measurement (mass/volume) 3.1 g/dL 3.2-4.5 CALCIUM CORRECTED 9.7 mg/dL 8.5-10.1 Complete blood count (CBC) with automated white blood cell (WBC) differential - 01/22/19 17:45 Blood leukocytes automated count (number/volume) 6.3 10*3/uL 4.3-11.0 Blood erythrocytes automated count (number/volume) 5.75 10*6/uL 4.35-5.85 Venous blood hemoglobin measurement (mass/volume) 14.2 g/dL 11.5-16.0 Blood hematocrit (volume fraction) 46 % 35-52 Automated erythrocyte mean corpuscular volume 80 [foz_us] 80-99 Automated erythrocyte mean corpuscular hemoglobin (mass per erythrocyte) 25 pg 25-34 Automated erythrocyte mean corpuscular hemoglobin concentration measurement ( mass/volume) 31 g/dL 32-36 Automated erythrocyte distribution width ratio 17.7 % 10.0-14.5 Automated blood platelet count (count/volume) 385 10*3/uL 130-400 Automated blood platelet mean volume measurement 10.3 [foz_us] 7.4-10.4 Automated blood neutrophils/100 leukocytes 73 % 42-75 Automated blood lymphocytes/100 leukocytes 14 % 12-44 Blood monocytes/100 leukocytes 14 % 0-12 Automated blood eosinophils/100 leukocytes 0 % 0-10 Automated blood basophils/100 leukocytes 0 % 0-10 Blood neutrophils automated count (number/volume) 4.6 10*3 1.8-7.8 Blood lymphocytes automated count (number/volume) 0.9 10*3 1.0-4.0 Blood monocytes automated count (number/volume) 0.9 10*3 0.0-1.0 Automated eosinophil count 0.0 10*3/uL 0.0-0.3 Automated blood basophil count (count/volume) 0.0 10*3/uL 0.0-0.1 Comprehensive metabolic panel - 01/22/19 17:45 Serum or plasma sodium measurement (moles/volume) 145 mmol/L 135-145 Serum or plasma potassium measurement (moles/volume) 3.9 mmol/L 3.6-5.0 Serum or plasma chloride measurement (moles/volume) 101 mmol/L 98-107 Carbon dioxide 33 mmol/L 21-32 Serum or plasma anion gap determination (moles/volume) 11 mmol/L 5-14 Serum or plasma urea nitrogen measurement (mass/volume) 22 mg/dL 7-18 Serum or plasma creatinine measurement (mass/volume) 0.83 mg/dL 0.60-1.30 Serum or plasma urea nitrogen/creatinine mass ratio 27 NRG Serum or plasma creatinine measurement with calculation of estimated glomerular filtration rate > NRG Serum or plasma glucose measurement (mass/volume) 143 mg/dL 70-105 Serum or plasma calcium measurement (mass/volume) 10.5 mg/dL 8.5-10.1 Serum or plasma total bilirubin measurement (mass/volume) 0.7 mg/dL 0.1-1.0 Serum or plasma alkaline phosphatase measurement (enzymatic activity/volume) 113 U/L 40-136 Serum or plasma aspartate aminotransferase measurement (enzymatic activity/ volume) 21 U/L 5-34 Serum or plasma alanine aminotransferase measurement (enzymatic activity/volume ) 22 U/L 0-55 Serum or plasma protein measurement (mass/volume) 7.9 g/dL 6.4-8.2 Serum or plasma albumin measurement (mass/volume) 4.3 g/dL 3.2-4.5 CALCIUM CORRECTED 10.3 mg/dL 8.5-10.1 Serum or plasma amylase measurement (enzymatic activity/volume) - 01/22/19 17: 45 Serum or plasma amylase measurement (enzymatic activity/volume) 9 U/ L 25-125 Lipase - 01/22/19 17:45 Lipase 6 U/L 8-78 Complete urinalysis with reflex to culture - 01/22/19 18:13 Urine color determination KIARRA NRG Urine clarity determination SLIGHTLY CLOUDY NRG Urine pH measurement by test strip 6 5-9 Specific gravity of urine by test strip 1.025 1.016- 1.022 Urine protein assay by test strip, semi-quantitative 2+ NEGATIVE Urine glucose detection by automated test strip NEGATIVE NEGATIVE Erythrocytes detection in urine sediment by light microscopy NEGATIVE NEGATIVE Urine ketones detection by automated test strip 3+ NEGATIVE Urine nitrite detection by test strip NEGATIVE NEGATIVE Urine total bilirubin detection by test strip 1+ NEGATIVE Urine urobilinogen measurement by automated test strip (mass/volume) 4 mg/dL NORMAL Urine leukocyte esterase detection by dipstick NEGATIVE NEGATIVE Automated urine sediment erythrocyte count by microscopy (number/high power field) NONE NRG Automated urine sediment leukocyte count by microscopy (number/high power field ) [HPF] NRG Bacteria detection in urine sediment by light microscopy FEW NRG Squamous epithelial cells detection in urine sediment by light microscopy 10-25 NRG Crystals detection in urine sediment by light microscopy NONE NRG Casts detection in urine sediment by light microscopy NONE NRG Mucus detection in urine sediment by light microscopy SMALL NRG Complete urinalysis with reflex to culture NO NRG Encounters ACCT No. Visit Date/Time Discharge Status Pt. Type Provider Facility Loc./Unit Complaint [id number] 12/31/2018 15:08:25 12/31/2018 23:59:59 CLS Outpatient Sean Marie [id number] 12/26/2018 10:50:32 12/26/2018 23:59:59 CLS Outpatient Sean Marie [id number] 12/18/2018 10:41:21 12/18/2018 23:59:59 CLS Outpatient Kiarra Ramos [id number] 11/01/2018 09:26:26 11/01/2018 23:59:59 CLS Outpatient Sean Marie [id number] 10/16/2018 14:31:29 10/16/2018 23:59:59 CLS Outpatient Sean Marie [id number] 09/27/2018 16:17:35 09/27/2018 23:59:59 CLS Outpatient Michelle Greco [id number] 08/13/2018 13:49:27 08/13/2018 23:59:59 CLS Outpatient Aurora Martin [id number] 08/12/2018 13:55:43 08/12/2018 23:59:59 CLS Outpatient Aurora Martin [id number] 07/20/2018 16:46:18 07/20/2018 23:59:59 CLS Outpatient DaniellalingSean magana [id number] 04/11/2018 13:52:57 04/11/2018 23:59:59 CLS Outpatient Rico Fredis [id number] 03/29/2018 15:19:47 03/29/2018 23:59:59 CLS Outpatient DaniellalingSean magana [id number] 03/09/2018 09:51:30 03/09/2018 23:59:59 CLS Outpatient Daniellalinger Sean [id number] 02/28/2018 08:52:38 02/28/2018 23:59:59 CLS Outpatient Rico Fredis [id number] 01/29/2018 17:36:47 01/29/2018 23:59:59 CLS Outpatient ChristalLaine [id number] 01/19/2018 11:26:07 01/19/2018 23:59:59 CLS Outpatient Daniellalingizzy Sean [id number] 10/27/2017 10:00:45 10/27/2017 23:59:59 CLS Outpatient RicoDestineeFredis [id number] 10/23/2017 09:29:56 10/23/2017 23:59:59 CLS Outpatient Hetlinger Sean [id number] 09/20/2017 12:18:44 09/20/2017 23:59:59 CLS Outpatient Rico Fredis [id number] 08/31/2017 15:49:06 08/31/2017 23:59:59 CLS Outpatient Rico Fredis [id number] 08/09/2017 10:08:51 08/09/2017 23:59:59 CLS Outpatient Daniellalingizzy Sean [id number] 07/07/2017 09:35:41 07/07/2017 23:59:59 CLS Outpatient HetlingerSean [id number] 06/16/2017 11:07:00 06/16/2017 23:59:59 CLS Outpatient Hetlinger, Sean [id number] 05/15/2017 09:46:10 05/15/2017 23:59:59 CLS Outpatient Hetlinger, Sean [id number] 04/23/2017 14:14:47 04/23/2017 23:59:59 CLS Outpatient Aurora Martin [id number] 04/14/2017 09:19:24 04/14/2017 23:59:59 CLS Outpatient HetlingerSean [id number] 03/20/2017 15:22:17 03/20/2017 23:59:59 CLS Outpatient HetlingerSean [id number] 03/03/2017 17:59:33 03/03/2017 23:59:59 CLS Outpatient Aurora Martin [id number] 01/09/2017 14:30:18 01/09/2017 23:59:59 CLS Outpatient HetlingerSean [id number] 01/02/2017 14:28:33 01/02/2017 23:59:59 CLS Outpatient HetlingerSean [id number] 12/27/2016 15:56:43 12/27/2016 23:59:59 CLS Outpatient HetlingerSean [id number] 2016 09:39:41 2016 23:59:59 CLS Outpatient HetlingerSean [id number] 09/19/2016 11:06:13 09/19/2016 23:59:59 CLS Outpatient HetlingerSean [id number] 07/01/2016 09:18:55 07/01/2016 23:59:59 CLS Outpatient Hetlinger, Sean [id number] 06/17/2016 11:21:34 06/17/2016 23:59:59 CLS Outpatient HetlingerSean [id number] 06/02/2016 11:45:43 06/02/2016 23:59:59 CLS Outpatient Michelle Greco Sean [id number] 05/20/2016 10:07:14 05/20/2016 23:59:59 CLS Outpatient Hetlinger, Sean [id number] 04/01/2016 10:43:20 04/01/2016 23:59:59 CLS Outpatient HetlingerSean [id number] 12/09/2015 18:02:06 12/09/2015 23:59:59 CLS Outpatient Miguel A Munoz [id number] 11/17/2015 15:42:52 11/17/2015 23:59:59 CLS Outpatient HetlingerSean [id number] 11/03/2015 09:17:08 11/03/2015 23:59:59 CLS Outpatient HetlingerSean [id number] 10/09/2015 09:43:07 10/09/2015 23:59:59 CLS Outpatient HetlingerSean [id number] 08/31/2015 15:29:16 08/31/2015 23:59:59 CLS Outpatient HetlingerSean [id number] 08/25/2015 11:01:57 08/25/2015 23:59:59 CLS Outpatient HetlingerSean [id number] 06/05/2015 10:21:13 06/05/2015 23:59:59 CLS Outpatient HetlingerSean [id number] 06/01/2015 07:40:23 06/01/2015 23:59:59 CLS Outpatient Angus Michelle Estrada [id number] 05/11/2015 22:33:28 05/11/2015 23:59:59 CLS Outpatient Amaris Gentile [id number] 05/11/2015 22:31:59 05/11/2015 23:59:59 CLS Outpatient Kiarra Ramos [id number] 05/11/2015 22:07:32 05/11/2015 23:59:59 CLS Outpatient HetlingerSean [id number] 05/11/2015 22:03:31 05/11/2015 23:59:59 CLS Outpatient HetlingerSean [id number] 05/11/2015 21:59:14 05/11/2015 23:59:59 CLS Outpatient HetlingerSean [id number] 05/11/2015 21:28:40 05/11/2015 23:59:59 CLS Outpatient HetlingerSean [id number] 01/26/2015 16:10:40 01/26/2015 23:59:59 CLS Outpatient Boo Leenaluis miguel Krause [id number] 01/12/2015 09:52:09 01/12/2015 23:59:59 CLS Outpatient HetlingSean magana [id number] 10/22/2014 14:36:19 10/22/2014 23:59:59 CLS Outpatient Miguel A Munoz [id number] 08/22/2014 09:31:15 08/22/2014 23:59:59 CLS Outpatient Sean Marie [id number] 08/01/2014 10:40:38 08/01/2014 23:59:59 CLS Outpatient Sean Marie [id number] 06/09/2014 15:49:13 06/09/2014 23:59:59 CLS Outpatient Kiarra Ramos [id number] 03/14/2014 09:18:53 03/14/2014 23:59:59 CLS Outpatient Leena Haddadle [id number] 02/27/2014 14:57:30 02/27/2014 23:59:59 CLS Outpatient Leena Haddad [id number] 12/02/2013 10:40:20 12/02/2013 23:59:59 CLS Outpatient Sean Marie [id number] 11/25/2013 10:02:26 11/25/2013 23:59:59 CLS Outpatient Frank Sean [id number] 11/14/2013 15:16:36 11/14/2013 23:59:59 CLS Outpatient Kiarra Ramos [id number] 01/22/2019 19:50:00 01/23/2019 18:30:00 DIS Inpatient MATILDE ADAMS MD [facility] 4TH POSSIBLE SMALL BOWEL OBSTRUCTION [id number] 12/18/2018 19:19:00 12/20/2018 17:50:00 DIS Inpatient MATILDE ADAMS MD [facility] 4TH N/V/D;ARF [id number] 09/06/2018 13:35:00 09/18/2018 17:00:00 DIS Inpatient MATILDE ADAMS MD [facility] 4TH POST OP GASTRECTOMY LEAK [id number] 09/06/2018 11:44:00 09/06/2018 23:59:59 CLS Outpatient MATILDE ADAMS MD [facility] RAD ABD PAIN S/P SLEEVE GASTRECTOMY [id number] 08/31/2018 22:27:00 09/01/2018 04:30:00 DIS Emergency DEMETRIUS LOPEZ MD [facility] ER TEMP; BARIATRIC SURGERY COMPLICATIONS [id number] 08/30/2018 11:18:00 08/31/2018 15:50:00 DIS Outpatient MATILDE ADAMS MD [facility] 4TH MORBID OBESITY [id number] 08/27/2018 12:07:00 08/27/2018 15:47:00 DIS Outpatient MATILDE ADAMS MD [facility] PREOP MORBID OBESITY [id number] 08/15/2018 08:11:00 08/15/2018 23:59:59 CLS Outpatient MATILDE ADAMS MD [facility] RAD REFLUX [id number] 07/31/2018 10:14:00 07/31/2018 23:59:59 CLS Outpatient MEGA AUDREY E BLASTER HELPER [facility] RAD J44.9,G47.00 [id number] 07/18/2018 11:37:00 07/18/2018 14:50:00 DIS Outpatient MATILDE ADAMS MD [facility] ENDO REFLUX [id number] 07/17/2018 14:37:00 07/17/2018 15:09:00 DIS Outpatient MATILDE ADAMS MD [facility] PREOP EGD [id number] 03/08/2018 08:15:00 03/08/2018 23:59:59 CLS Preadmit IESHA AYOUBINE E BLASTER HELPER [facility] PULM F41.9 ANXIETY J45.909 ASTHMA [id number] 12/19/2017 13:00:00 03/07/2018 00:01:00 DIS Outpatient MEGA AUDREY E BLASTER HELPER [facility] PULM F41.9 ANXIETY J45.909 ASTHMA [id number] 12/18/2017 11:38:00 12/18/2017 23:59:59 CLS Outpatient MEGA AUDREY E BLASTER HELPER [facility] RT RESTRICITVE LUNG DISEASE,ASTHMA [id number] 12/12/2017 15:37:00 12/12/2017 23:59:59 CLS Outpatient MEGA, AUDREY E BLASTER HELPER [facility] PULM J45.909 [id number] 12/05/2017 13:54:00 12/05/2017 23:59:59 CLS Outpatient MEGA AUDREY E BLASTER HELPER [facility] RAD J45.909,J44.9 [id number] 11/30/2017 13:00:00 12/03/2017 00:01:00 DIS Outpatient MEGAAUDREY BLASTER HELPER [facility] PULM F41.9 ANXIETY J45.909 ASTHMA [id number] 10/19/2017 15:24:00 10/19/2017 23:59:59 CLS Outpatient MEGAAUDREY BLASTER HELPER [facility] LAB J44.9 R09.02 I26.99 J98.4 [id number] 06/30/2017 08:37:00 06/30/2017 23:59:59 CLS Outpatient MEGAAUDREY BLASTER HELPER [facility] LAB J44.9 [id number] 06/29/2017 14:43:00 06/29/2017 23:59:59 CLS Outpatient WEN POOL DO [facility] RAD COPD,ASTHMA [id number] 06/14/2017 15:28:00 06/14/2017 23:59:59 CLS Outpatient IESHA AYOUBALLI Gallegos BLASTER HELPER [facility] RAD J45.909 ASTHMA [id number] 01/25/2019 10:27:00 ACT Outpatient MATILDE ADAMS MD [facility] RAD [facility] PA[facility] [id number] 01/14/2019 07:45:00 01/14/2019 23:59:59 CLS Outpatient Carolina Barry [id number] 12/03/2018 07:49:00 12/03/2018 23:59:59 CLS Outpatient JhonnyCarolina [id number] 08/27/2018 14:39:00 08/27/2018 23:59:59 CLS Outpatient JhonnyCarolina [id number] 08/06/2018 15:45:00 08/06/2018 23:59:59 CLS Outpatient Carolina Barry [id number] 06/26/2018 14:46:00 06/26/2018 23:59:59 CLS Outpatient JhonnyCarolina [id number] 05/02/2018 11:05:00 05/02/2018 23:59:59 CLS Outpatient JhonnyCarolina [id number] 04/30/2018 08:38:00 04/30/2018 23:59:59 CLS Outpatient JhonnyCarolina [id number] 04/16/2018 12:00:00 04/16/2018 23:59:59 [facility] Outpatient Carolina Barry [id number] 04/03/2018 13:30:00 04/03/2018 23:59:59 [facility] Outpatient Carolina Barry
[2019-01-28 12:45] LABS: BAND NEUTROPHILS 4 %; BASOPHILS % (MANUAL) 1 %; LYMPHOCYTES % (MANUAL) 10 %; MONOCYTES % (MANUAL) 19 %; NEUTROPHILS % (MANUAL) 66 %
[2019-01-28 12:46] LABS: RBC MORPH NORMAL
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
[2019-01-28 16:55] VITALS: BP 126/70
--- NOTE | 2019-01-28 17:35 | NUR ---
orders for hydrocodone - patient states being taking it at home - no allergic reaction to it - requested to take off the allergy - dr coe notified
[2019-01-28 20:53] VITALS: BP 140/69
[2019-01-28] MEDS: traZODone 150 MG (DESYREL) TABLET PO SCH (20:58)
[2019-01-28 23:59] VITALS: BP 125/58
[2019-01-29 03:30] VITALS: BP 126/60
[2019-01-29] MEDS: THYROID (ARMOUR) 60 MG TABLET PO SCH (06:04)
[2019-01-29] MEDS: NS IV 1000 ML 1,000 ML IV SCH ×2 (06:05→17:00)
[2019-01-29 08:00] VITALS: BP 119/58
[2019-01-29] MEDS: PANTOPRAZOLE 40 MG (PROTONIX) VIAL IV SCH (10:18)
[2019-01-29] MEDS: MAGNESIUM CITRATE 300 ML BTL PO SCH ×2 (10:18→17:01)
[2019-01-29] MEDS: ONDANSETRON 4 MG/2 ML (SDV) Z0FRAN IV PRN (10:32)
[2019-01-29 12:00] VITALS: BP 137/63
--- NOTE | 2019-01-29 12:32 | Progress Note (SOAP) ---
Subjective Date Seen by a Provider: Jan 29, 2019 Time Seen by a Provider: 12:00 Subjective/Events-last exam doing better. able to have multiple liquid stools. no nausea/vomiting. tolerating clears and mg citrate. Objective Exam Vital Signs Date Time Temp Pulse Resp B/P (MAP) Pulse Ox O2 Delivery O2 Flow Rate FiO2 01/29/19 08:00 97.4 90 18 119/58 (78) 93 Room Air 01/29/19 03:30 97.6 103 20 126/60 (82) 91 Room Air 01/28/19 23:59 98.4 93 18 125/58 (80) 92 Room Air 01/28/19 20:53 97.8 95 18 140/69 (92) 91 Room Air 01/28/19 19:25 Room Air 01/28/19 18:13 Room Air 01/28/19 16:55 97.4 103 18 126/70 (88) 94 Room Air I & O 01/29/19 07:00 Intake Total 2830 ml Balance 2830 ml Capillary Refill : General Appearance: No Apparent Distress HEENT: PERRL/EOMI Neck: Full Range of Motion Respiratory: Chest Non Tender, Lungs Clear, Normal Breath Sounds Cardiovascular: Regular Rate, Rhythm Gastrointestinal: normal bowel sounds, non tender, soft Extremity: Normal Capillary Refill Neurologic/Psychiatric: Alert, Oriented x3 Skin: Normal Color Lymphatic: No Adenopathy Assessment/Plan Assessment/Plan Assess & Plan/Chief Complaint benign symptomatic transverse colonic stricture secondary to adhesions. tolerating prep well with liquid stools. will plan for dx laparoscopy and segmental transverse colon resection tomorrow Clinical Quality Measures DVT/VTE Risk/Contraindication: Risk Factor Score Per Nursin RFS Level Per Nursing on Admit: 4+=Very High MATILDE ADAMS MD Jan 29, 2019 12:32
[2019-01-29] MEDS: fentaNYL INJECTION 100 MCG/2 ML AMP IV PRN (12:42)
[2019-01-29] MEDS ORDERED: LORazepam INJ 2 MG/ML (ATIVAN) VIAL IVP PRN (12:45)
[2019-01-29 16:00] VITALS: BP 113/65
--- NOTE | 2019-01-29 18:05 | Progress Note-Pre Operative ---
Pre-Operative Progress Note H&P Reviewed The H&P was reviewed, patient examined and no changes noted. Date Seen by Provider: Jan 29, 2019 Time Seen by Provider: 18:00 Date H&P Reviewed: Jan 29, 2019 Time H&P Reviewed: 18:00 Pre-Operative Diagnosis: symptomatic transverse colonic stricture MATILDE ADAMS MD Jan 29, 2019 18:05
[2019-01-29] MEDS: PROMETHAZINE INJ 25 MG/ML (PHENERGAN) AMP IV PRN (18:06)
[2019-01-29 20:00] VITALS: BP 123/58
[2019-01-29] MEDS: traZODone 150 MG (DESYREL) TABLET PO SCH (20:26)
[2019-01-29] MEDS ORDERED: rOPINIRole 1 MG (REQUIP) TABLET ONE (22:35)
[2019-01-29] MEDS: rOPINIRole 1 MG (REQUIP) TABLET PO SCH (22:43)
[2019-01-30] VITALS (12 sets, daily range): BP systolic 128–175; BP diastolic 67–86
[2019-01-30] MEDS: NS IV 1000 ML 1,000 ML IV SCH ×3 (02:46→22:18)
[2019-01-30] MEDS: THYROID (ARMOUR) 60 MG TABLET PO SCH (04:56)
[2019-01-30] MEDS: PANTOPRAZOLE 40 MG (PROTONIX) VIAL IV SCH (08:57)
[2019-01-30] MEDS: MAGNESIUM CITRATE 300 ML BTL PO SCH ×2 (08:58→22:59)
[2019-01-30] MEDS ORDERED: HEParin (CENTRAL IV FLUSH) 500 UNIT/5 ML SYR ONE (11:49)
[2019-01-30] MEDS ORDERED: BUP/EPI 0.5% 1:200,000 (SENSORCAINE) 30 ML VIAL ONE (11:49)
[2019-01-30] MEDS ORDERED: ROCURONIUM 10 MG/ML 5 ML SYRINGE IV ONE ×2 (12:46→18:51)
[2019-01-30] MEDS ORDERED: MIDAZOLAM 2 MG/2 ML (VERSED) VIAL ONE (12:46)
[2019-01-30] MEDS ORDERED: SEVOFLURANE (ULTANE) 15 ML INHAL SOLN ONE ×14 (12:46→20:30)
[2019-01-30] MEDS ORDERED: LIDOCAINE PF 2% 5 ML (XYLOCAINE) VIAL ONE (12:46)
[2019-01-30] MEDS ORDERED: DEXAMETHASONE 10 MG/ML (DECADRON) 1 ML VIAL ONE (12:46)
[2019-01-30] MEDS ORDERED: proPOfol 200 MG/20 ML (DIPRIVAN) VIAL IV ONE (12:46)
[2019-01-30] MEDS ORDERED: ONDANSETRON 4 MG/2 ML (SDV) Z0FRAN ONE (12:46)
[2019-01-30] MEDS ORDERED: fentaNYL INJECTION 250 MCG/5 ML AMP ONE (12:46)
[2019-01-30] MEDS ORDERED: metroNIDAZOLE 500MG/100ML IVPB 100 ML IV SCH (13:00)
[2019-01-30] MEDS ORDERED: ceFAZolin 2 GM IV Premixed 50 ML IV NR (13:00)
[2019-01-30] MEDS ORDERED: NEOSTIGMINE 1 MG/ML 5 ML SYRINGE ONE (13:10)
[2019-01-30] MEDS ORDERED: GLYCOPYRROLATE 0.2 MG/ML (ROBINUL) 2 ML VIAL ONE ×2 (13:10→19:22)
--- NOTE | 2019-01-30 15:15 | NUR ---
LEFT THE FLOOR FOR SURGERY
[2019-01-30] MEDS: LACTATED RINGERS 1,000 ML IV PRN ×2 (15:20→20:08)
[2019-01-30] MEDS ORDERED: HYDROmorphone 2 MG/ML VIAL (DILAUDID) ONE (17:27)
[2019-01-30] MEDS ORDERED: MEPERIDINE (DEMEROL) INJ 50 MG/ML ONE (17:28)
[2019-01-30] MEDS ORDERED: morphine INJ 10 MG/ML 1ML (SYR OR VIAL) ONE ×2 (17:28→18:50)
[2019-01-30] MEDS ORDERED: ceFAZolin INJECTION 2,000 MG ONE (18:10)
[2019-01-30] MEDS ORDERED: metroNIDAZOLE 500MG/100ML IVPB 100 ML ONE (18:10)
--- NOTE | 2019-01-30 19:45 | Progress Note-Post Operative ---
Post-Operative Progess Note Surgeon (s)/Customer Care Assistant (s) Surgeon MATILDE ADAMS MD Customer Care Assistant: chaparro briggs WIDTH STRIPPER Pre-Operative Diagnosis symptomatic transverse colonic stricture Post-Operative Diagnosis same, intraoperative enterotomy x3 Procedure & Operative Findings Date of Procedure 01/30/19 Procedure Performed/Findings diagnostic laparoscopy. JF(120min). segmental transverse colon resection. primary repair enterotomy repair x3. placement left subclavian central venous cath. Anesthesia Type GET Estimated Blood Loss Estimated blood loss (mL): 550ml Specimens/Packing Specimens Removed transverse colon MATILDE ADAMS MD January 30, 2019 19:45
[2019-01-30] MEDS ORDERED: HYDROmorphone 2 MG/ML VIAL (DILAUDID) IV ONE (20:00)
[2019-01-30] MEDS ORDERED: ONDANSETRON 4 MG/2 ML (SDV) Z0FRAN IVP PRN (20:00)
[2019-01-30] MEDS ORDERED: fentaNYL INJECTION 5,000 MCG in EMPTY IV BAG (PVC) 1 EA IV SCH (20:00)
[2019-01-30] MEDS ORDERED: PROMETHAZINE INJ 25 MG/ML (PHENERGAN) AMP IVP ONE (20:00)
[2019-01-30] MEDS ORDERED: morphine INJ 10 MG/ML 1ML (SYR OR VIAL) IVP ONE (20:00)
[2019-01-30] MEDS ORDERED: fentaNYL PCA 1,000 MCG/NS 80 ML (TOTAL VOLUME 100 ML) INJ SCH ×2 (20:00)
[2019-01-30] MEDS ORDERED: LACTATED RINGERS 1,000 ML IV ONE (20:08)
[2019-01-30] MEDS ORDERED: ROPIVACAINE 5MG/ML 30ML VIAL ONE (20:31)
--- NOTE | 2019-01-30 20:34 | Diagnostic Imaging Report ---
INDICATION: Central line placement. TIME OF EXAM: 8:19 p.m. EXAMINATION: Single view of the chest was obtained. COMPARISON: Correlation is made with prior study from 01/25/2019. FINDINGS: Left subclavian line is malpositioned. The tip is directed retrograde in the region of the lower right internal jugular vein. No pneumothorax is seen. There is some consolidation in the left base obscuring the left hemidiaphragm. IMPRESSION: Malpositioned left subclavian central line, as described. Dictated by: Dictated on workstation # [id number]
[2019-01-30] MEDS: rOPINIRole 1 MG (REQUIP) TABLET PO SCH (22:59)
[2019-01-30] MEDS: traZODone 150 MG (DESYREL) TABLET PO SCH (22:59)
[2019-01-31] VITALS (17 sets, daily range): BP systolic 127–175; BP diastolic 47–73
[2019-01-31] MEDS: ceFAZolin 2 GM IV Premixed 50 ML IV SCH ×3 (01:07→15:20)
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
[2019-01-31 04:24] LABS: BASOPHILS % (AUTO) 0 % (0-10); EOSINOPHILS % (AUTO) 0 % (0-10); HEMATOCRIT 37 % (35-52); HEMOGLOBIN 11.5 G/DL (11.5-16.0); LYMPHOCYTES # (AUTO) 0.9 X 10^3 (1.0-4.0); LYMPHOCYTES % (AUTO) 6 % (12-44); MEAN CORPUSCULAR HEMOGLOBIN 25 PG (25-34); MEAN CORPUSCULAR HGB CONC 31 G/DL (32-36); MEAN CORPUSCULAR VOLUME 80 FL (80-99); MONOCYTES # (AUTO) 1.1 X 10^3 (0.0-1.0); MONOCYTES % (AUTO) 7 % (0-12); NEUTROPHILS # (AUTO) 14.5 X 10^3 (1.8-7.8); NEUTROPHILS % (AUTO) 88 % (42-75); PLATELET COUNT 267 10^3/uL (130-400); RED CELL DISTRIBUTION WIDTH 16.8 % (10.0-14.5); WHITE BLOOD COUNT 16.5 10^3/uL (4.3-11.0)
[2019-01-31 04:44] LABS: BUN/CREATININE RATIO 7; CALCIUM 8.5 MG/DL (8.5-10.1); CARBON DIOXIDE 23 MMOL/L (21-32); CHLORIDE 108 MMOL/L (98-107); CREATININE SERUM 0.69 MG/DL (0.60-1.30); GFR ESTIMATED > 60; GLUCOSE 120 MG/DL (70-105); MAGNESIUM 1.7 MG/DL (1.8-2.4); PHOSPHORUS 3.8 MG/DL (2.3-4.7); POTASSIUM 3.3 MMOL/L (3.6-5.0); SODIUM 144 MMOL/L (135-145)
[2019-01-31 05:11] LABS: ANISOCYTOSIS SLIGHT; HYPOCHROMASIA SLIGHT; LYMPHOCYTES % (MANUAL) 8 %; MICROCYTOSIS SLIGHT; MONOCYTES % (MANUAL) 4 %; NEUTROPHILS % (MANUAL) 88 %; POIKILOCYTOSIS SLIGHT; TOXIC GRANULATION/VACUOLAZATIO 1+
[2019-01-31] MEDS ORDERED: MAGNESIUM 1 GM/100 ML IVPB 100 ML IV SCH (06:00)
[2019-01-31] MEDS ORDERED: KCL 20 MEQ TAB (K-DUR) PO SCH (06:00)
[2019-01-31] MEDS ORDERED: POTASSIUM CL 10MEQ/50ML IVPB 50 ML IV SCH (06:00)
[2019-01-31] MEDS: THYROID (ARMOUR) 60 MG TABLET PO SCH (06:10)
[2019-01-31] MEDS: metroNIDAZOLE 500MG/100ML IVPB 100 ML IV SCH ×2 (06:12→16:36)
--- NOTE | 2019-01-31 06:53 | Diagnostic Imaging Report ---
Indication: Shortness of breath. Portable chest 3:07 AM There is an NG tube that enters the stomach. There is some left basilar discoid atelectasis that appears similar to the previous study. . Right lung is clear. Impression: Stable chest with minimal left perihilar discoid atelectasis. Dictated by: Dictated on workstation # [id number]
[2019-01-31] MEDS: PANTOPRAZOLE 40 MG (PROTONIX) VIAL IV SCH (07:56)
[2019-01-31] MEDS: ENOXAPARIN 40 MG/0.4 ML (LOVENOX) SYR SC SCH (07:57)
[2019-01-31] MEDS: NS IV 1000 ML 1,000 ML IV SCH ×3 (08:07→23:37)
[2019-01-31] MEDS: MAGNESIUM CITRATE 300 ML BTL PO SCH ×2 (09:03→19:52)
--- NOTE | 2019-01-31 15:01 | NUR ---
DR ADAMS CALLED TO CHECK ON PATIENT NEW ORDERS RECEIVED.
[2019-01-31] MEDS ORDERED: TPN IV SCH (15:15)
[2019-01-31] MEDS: POTASSIUM CL 10MEQ/50ML IVPB 50 ML IV SCH ×2 (15:37→16:25)
[2019-01-31] MEDS: AA 4.25% W/LYTES IN D5W IV SOL 1,000 ML IV SCH (17:30)
--- NOTE | 2019-01-31 17:37 | NUR ---
1720 PT TO ROOM 432 VIA BED ACCOMPANIED BY ICU STAFF AND THIS RN. REPORT GIVEN TO Josette GIRON RN. ALL PERSONAL BELONGINGS SENT WITH PATIENT AND SPOUSE.
[2019-01-31] MEDS ORDERED: NS 1000 ML IV BAG IV SCH (17:45)
[2019-01-31] MEDS: traZODone 150 MG (DESYREL) TABLET PO SCH (19:52)
[2019-01-31] MEDS: rOPINIRole 1 MG (REQUIP) TABLET PO SCH (19:53)
--- NOTE | 2019-01-31 20:41 | Progress Note (SOAP) ---
Subjective Date Seen by a Provider: January 31, 2019 Time Seen by a Provider: 12:00 Subjective/Events-last exam patient doing well. pain controlled with NURSE QUALITY. was able to get OOB and into chair as well as ambulate in the room. mild-moderate SS NATHEN output from irrigation. Objective Exam Vital Signs Date Time Temp Pulse Resp B/P (MAP) Pulse Ox O2 Delivery O2 Flow Rate FiO2 01/31/19 17:36 98.5 100 26 137/61 (86) 91 01/31/19 16:04 97.5 01/31/19 16:00 101 29 153/63 (93) 92 OxyMask 4.00 01/31/19 15:00 98 32 157/56 (89) 92 OxyMask 4.00 01/31/19 14:00 99 27 145/67 (93) 92 OxyMask 4.00 01/31/19 13:03 98 01/31/19 13:00 100 29 90 OxyMask 4.00 01/31/19 12:00 97 25 135/66 (89) 91 OxyMask 4.00 01/31/19 11:00 95 15 141/66 (91) 91 OxyMask 4.00 01/31/19 10:00 94 25 127/73 (91) 90 OxyMask 4.00 01/31/19 08:15 94 Room Air 01/31/19 08:00 94 33 157/70 (99) 93 OxyMask 4.00 01/31/19 07:14 94 01/31/19 07:00 97 18 149/47 (81) 81 OxyMask 4.00 01/31/19 06:00 91 26 142/64 (90) 97 OxyMask 4.00 01/31/19 05:39 98.0 01/31/19 05:00 89 38 142/59 (86) 98 OxyMask 4.00 01/31/19 04:00 89 38 151/61 (91) 98 OxyMask 4.00 01/31/19 03:00 92 31 175/52 (93) 98 OxyMask 4.00 01/31/19 02:00 87 22 145/67 (93) 98 OxyMask 4.00 01/31/19 01:05 92 01/31/19 01:00 92 20 166/67 (100) 98 OxyMask 4.00 01/31/19 00:00 98.8 01/31/19 00:00 85 23 159/52 (87) 98 OxyMask 4.00 01/30/19 23:16 OxyMask 4.00 01/30/19 23:00 84 18 170/79 (109) 99 OxyMask 4.00 01/30/19 21:56 97.2 84 16 174/81 (112) 99 OxyMask 4.00 01/30/19 21:30 84 18 175/85 (115) 99 OxyMask 4.00 01/30/19 21:15 80 14 168/81 (110) 99 OxyMask 4.00 01/30/19 21:09 84 01/30/19 21:05 98.1 20 97 OxyMask 4 01/30/19 21:00 20 98 OxyMask 4 01/30/19 20:50 20 98 OxyMask 4 01/30/19 20:40 20 96 OxyMask 4 I & O 01/31/19 07:00 Intake Total 3250 ml Output Total 1120 ml Balance 2130 ml Capillary Refill : General Appearance: No Apparent Distress HEENT: PERRL/EOMI Neck: Full Range of Motion Respiratory: Chest Non Tender, Lungs Clear Cardiovascular: Regular Rate, Rhythm Gastrointestinal: soft, tenderness, other (incisions clean/dry) Extremity: Normal Capillary Refill Neurologic/Psychiatric: Alert, Oriented x3 Skin: Normal Color Lymphatic: No Adenopathy Results Lab Laboratory Tests 01/31/19 04:15: White Blood Count 16.5H, Red Blood Count 4.60, Hemoglobin 11.5, Hematocrit 37, Mean Corpuscular Volume 80, Mean Corpuscular Hemoglobin 25, Mean Corpuscular Hemoglobin Concent 31L, Red Cell Distribution Width 16.8H, Platelet Count 267, Mean Platelet Volume 10.0, Neutrophils (%) (Auto) 88H, Lymphocytes (%) (Auto) 6L , Monocytes (%) (Auto) 7, Eosinophils (%) (Auto) 0, Basophils (%) (Auto) 0, Neutrophils # (Auto) 14.5H, Lymphocytes # (Auto) 0.9L, Monocytes # (Auto) 1.1H, Eosinophils # (Auto) 0.0, Basophils # (Auto) 0.0, Neutrophils % (Manual) 88, Lymphocytes % (Manual) 8, Monocytes % (Manual) 4, Toxic Granulation 1+, Dohle Bodies SLIGHT, Hypochromasia SLIGHT, Poikilocytosis SLIGHT, Anisocytosis SLIGHT , Microcytosis SLIGHT, Sodium Level 144, Potassium Level 3.3L, Chloride Level 108H, Carbon Dioxide Level 23, Anion Gap 13, Blood Urea Nitrogen 5L, Creatinine 0.69, Estimat Glomerular Filtration Rate > 60, BUN/Creatinine Ratio 7, Glucose Level 120H, Calcium Level 8.5, Phosphorus Level 3.8, Magnesium Level 1.7L Microbiology 01/29/19 MRSA Screen - Final, Complete MRSA not isolated Assessment/Plan Assessment/Plan Assess & Plan/Chief Complaint benign symptomatic transverse colonic stricture secondary to adhesions. s/p laparoscopic JF, segmental transverse colon resection and enterrhaphy x3. doing ok. VSS and making every effort to rehab. will transfer to floor. await bowel fxn then d/c NGT. Clinical Quality Measures DVT/VTE Risk/Contraindication: Risk Factor Score Per Nursin RFS Level Per Nursing on Admit: 4+=Very High MATILDE ADAMS MD January 31, 2019 20:41
[2019-01-31] MEDS ORDERED: fentaNYL INJECTION 1,000 MCG in NS (IVPB) 80 ML INJ SCH ×2 (22:00→23:45)
--- NOTE | 2019-01-31 23:43 | NUR ---
PT C/O UNCONTROLLED PAIN. 07/11 DR. ADAMS INFORMED ORDER TO INCREASE CADD PUMP TO 20MCG Q10MIN WITH 300MCG 4HOUR LOCKOUT. CHANGE TO CADD VERIFIED BY LEANNE BASS.
[2019-02-01] MEDS: AA 4.25% W/LYTES IN D5W IV SOL 1,000 ML IV SCH (00:03)
[2019-02-01 00:53] VITALS: BP 140/63
[2019-02-01 03:25] VITALS: BP 155/75
[2019-02-01] MEDS: THYROID (ARMOUR) 60 MG TABLET PO SCH (03:34)
[2019-02-01 06:01] LABS: BASOPHILS % (AUTO) 0 % (0-10); EOSINOPHILS # (AUTO) 0.1 10^3/uL (0.0-0.3); EOSINOPHILS % (AUTO) 0 % (0-10); HEMATOCRIT 32 % (35-52); HEMOGLOBIN 10.2 G/DL (11.5-16.0); LYMPHOCYTES # (AUTO) 1.4 X 10^3 (1.0-4.0); LYMPHOCYTES % (AUTO) 7 % (12-44); MEAN CORPUSCULAR HEMOGLOBIN 25 PG (25-34); MEAN CORPUSCULAR HGB CONC 32 G/DL (32-36); MEAN CORPUSCULAR VOLUME 80 FL (80-99); MONOCYTES # (AUTO) 1.6 X 10^3 (0.0-1.0); MONOCYTES % (AUTO) 8 % (0-12); NEUTROPHILS # (AUTO) 16.3 X 10^3 (1.8-7.8); NEUTROPHILS % (AUTO) 84 % (42-75); PLATELET COUNT 272 10^3/uL (130-400); RED CELL DISTRIBUTION WIDTH 16.6 % (10.0-14.5); WHITE BLOOD COUNT 19.4 10^3/uL (4.3-11.0)
[2019-02-01 06:21] LABS: ALANINE AMINOTRANSFERASE 12 U/L (0-55); ALBUMIN 2.5 GM/DL (3.2-4.5); ALKALINE PHOSPHATASE 83 U/L (40-136); BILIRUBIN,TOTAL 0.4 MG/DL (0.1-1.0); BUN/CREATININE RATIO 13; CALCIUM 8.3 MG/DL (8.5-10.1); CARBON DIOXIDE 26 MMOL/L (21-32); CHLORIDE 104 MMOL/L (98-107); CREATININE SERUM 0.61 MG/DL (0.60-1.30); GFR ESTIMATED > 60; GLUCOSE 138 MG/DL (70-105); MAGNESIUM 1.5 MG/DL (1.8-2.4); PHOSPHORUS 1.7 MG/DL (2.3-4.7); POTASSIUM 3.2 MMOL/L (3.6-5.0); SODIUM 138 MMOL/L (135-145); TOTAL PROTEIN 4.7 GM/DL (6.4-8.2); TRIGLYCERIDES 67 MG/DL (<150)
[2019-02-01 06:29] LABS: BAND NEUTROPHILS 4 %; LYMPHOCYTES % (MANUAL) 5 %; MONOCYTES % (MANUAL) 9 %; NEUTROPHILS % (MANUAL) 80 %; RBC MORPH NORMAL
[2019-02-01 08:00] VITALS: BP 138/63
[2019-02-01] MEDS: MAGNESIUM CITRATE 300 ML BTL PO SCH ×2 (08:26→20:16)
[2019-02-01] MEDS ORDERED: AA 4.25% W/LYTES IN D5W IV SOL 1,000 ML IV SCH (08:30)
[2019-02-01] MEDS: NS IV SCH ×6 (09:05→14:33)
[2019-02-01] MEDS: ENOXAPARIN 40 MG/0.4 ML (LOVENOX) SYR SC SCH (09:05)
[2019-02-01] MEDS: POTASSIUM PHOSPHATE IV SCH ×6 (09:05→14:33)
[2019-02-01] MEDS: PANTOPRAZOLE 40 MG (PROTONIX) VIAL IV SCH (09:05)
[2019-02-01] MEDS: MAGNESIUM SULFATE IV SCH ×6 (09:05→14:33)
[2019-02-01 12:00] VITALS: BP 131/61
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
[2019-02-01 15:10] LABS: BILIRUBIN,URINE NEGATIVE (NEGATIVE); CLARITY,URINE CLEAR; COLOR,URINE YELLOW; GLUCOSE, URINE (UA) NEGATIVE (NEGATIVE); KETONES,URINE NEGATIVE (NEGATIVE); LEUKOCYTE ESTERASE ,URINE NEGATIVE (NEGATIVE); NITRITE,URINE NEGATIVE (NEGATIVE); PH,URINE 6 (5-9); PROTEIN,URINE 2+ (NEGATIVE); UROBILINOGEN,URINE NORMAL (NORMAL)
--- NOTE | 2019-02-01 15:19 | Diagnostic Imaging Report ---
INDICATION: Leukocytosis EXAM: Portable chest at 2:56 PM FINDINGS: There is an NG tube projecting over the stomach. There is atelectasis of the left lung base. Right lung is clear. Left subclavian Port-A-Cath tip projects over the SVC. IMPRESSION: Left basilar atelectasis. Dictated by: Dictated on workstation # [id number]
[2019-02-01 15:39] LABS: BACTERIA,URINE NEGATIVE /HPF; WBC,URINE RARE /HPF
[2019-02-01 15:42] VITALS: BP 133/63
[2019-02-01] MEDS: CIPROFLOXACIN IV 400MG/200ML 200 ML IV SCH (15:48)
[2019-02-01] MEDS: metroNIDAZOLE 500MG/100ML IVPB 100 ML IV SCH (15:48)
--- NOTE | 2019-02-01 16:03 | Progress Note (SOAP) ---
Subjective Date Seen by a Provider: February 01, 2019 Time Seen by a Provider: 16:00 Subjective/Events-last exam doing ok. pain controlled. no bowel fxn yet. ambulating well. leukocytosis without fever/chills. Objective Exam Vital Signs Date Time Temp Pulse Resp B/P (MAP) Pulse Ox O2 Delivery O2 Flow Rate FiO2 02/01/19 15:42 98.4 97 20 133/63 (86) 92 Room Air 02/01/19 12:00 98.4 99 20 131/61 (84) 91 Room Air 02/01/19 08:00 Room Air 02/01/19 08:00 98.6 101 18 138/63 (88) 92 Room Air 02/01/19 03:25 99.1 103 18 155/75 (101) 92 Room Air 02/01/19 00:53 98.3 106 20 140/63 (88) 91 Room Air 01/31/19 22:35 100.7 01/31/19 20:20 101.1 103 20 153/69 (97) 94 Room Air 01/31/19 20:00 Room Air 01/31/19 17:36 98.5 100 26 137/61 (86) 91 01/31/19 16:04 97.5 I & O 02/01/19 07:00 Intake Total 3360 ml Output Total 2280 ml Balance 1080 ml Capillary Refill : General Appearance: No Apparent Distress HEENT: PERRL/EOMI Neck: Full Range of Motion Respiratory: Chest Non Tender, Normal Breath Sounds Cardiovascular: Regular Rate, Rhythm Gastrointestinal: soft, tenderness, other (incision clean/dry) Extremity: Normal Capillary Refill Neurologic/Psychiatric: Alert, Oriented x3 Skin: Normal Color Lymphatic: No Adenopathy Results Lab Laboratory Tests 02/01/19 05:55: White Blood Count 19.4H, Red Blood Count 4.02L, Hemoglobin 10.2L, Hematocrit 32L , Mean Corpuscular Volume 80, Mean Corpuscular Hemoglobin 25, Mean Corpuscular Hemoglobin Concent 32, Red Cell Distribution Width 16.6H, Platelet Count 272, Mean Platelet Volume 10.0, Neutrophils (%) (Auto) 84H, Lymphocytes (%) (Auto) 7L , Monocytes (%) (Auto) 8, Eosinophils (%) (Auto) 0, Basophils (%) (Auto) 0, Neutrophils # (Auto) 16.3H, Lymphocytes # (Auto) 1.4, Monocytes # (Auto) 1.6H, Eosinophils # (Auto) 0.1, Basophils # (Auto) 0.0, Neutrophils % (Manual) 80, Lymphocytes % (Manual) 5, Monocytes % (Manual) 9, Band Neutrophils 4, Blood Morphology Comment NORMAL, Sodium Level 138, Potassium Level 3.2L, Chloride Level 104, Carbon Dioxide Level 26, Anion Gap 8, Blood Urea Nitrogen 8, Creatinine 0.61, Estimat Glomerular Filtration Rate > 60, BUN/Creatinine Ratio 13, Glucose Level 138H, Calcium Level 8.3L, Corrected Calcium 9.5, Phosphorus Level 1.7L, Magnesium Level 1.5L, Total Bilirubin 0.4, Aspartate Amino Transf ( AST/SGOT) 11, Alanine Aminotransferase (ALT/SGPT) 12, Alkaline Phosphatase 83, Total Protein 4.7L, Albumin 2.5L, Triglycerides Level 67 02/01/19 15:00: Urine Color YELLOW, Urine Clarity CLEAR, Urine pH 6, Urine Specific [place] 1.020, Urine Protein 2+H, Urine Glucose (UA) NEGATIVE, Urine Ketones NEGATIVE, Urine Nitrite NEGATIVE, Urine Bilirubin NEGATIVE, Urine Urobilinogen NORMAL, Urine Leukocyte Esterase NEGATIVE, Urine RBC (Auto) NEGATIVE, Urine RBC NONE, Urine WBC RARE, Urine Squamous Epithelial Cells NONE, Urine Crystals NONE, Urine Bacteria NEGATIVE, Urine Casts NONE, Urine Mucus NEGATIVE, Urine Culture Indicated NO Microbiology 01/29/19 MRSA Screen - Final, Complete MRSA not isolated Assessment/Plan Assessment/Plan Assess & Plan/Chief Complaint benign symptomatic transverse colonic stricture secondary to adhesions. s/p laparoscopic JF, segmental transverse colon resection and enterrhaphy x3. doing ok. VSS and making every effort to rehab. await bowel fxn then d/c NGT. get u/a and cxr for leukocytosis. Clinical Quality Measures DVT/VTE Risk/Contraindication: Risk Factor Score Per Nursin RFS Level Per Nursing on Admit: 4+=Very High MATILDE ADAMS MD February 01, 2019 16:03
[2019-02-01] MEDS ORDERED: 1/2 NS IV SOLUTION 1,000 ML IV SCH (17:00)
[2019-02-01] MEDS: SODIUM CHLORIDE IV SCH ×11 (17:27)
[2019-02-01] MEDS: SODIUM ACETATE IV SCH ×11 (17:27)
[2019-02-01] MEDS: 1/2 NS IV SOLUTION 1,000 ML IV SCH (17:27)
[2019-02-01] MEDS: [UNRECOGNIZED DRUG - OTHER] IV SCH ×11 (17:27)
[2019-02-01 19:19] VITALS: BP 122/59
[2019-02-01] MEDS: traZODone 150 MG (DESYREL) TABLET PO SCH (20:16)
[2019-02-01] MEDS: rOPINIRole 1 MG (REQUIP) TABLET PO SCH (20:16)
[2019-02-02] VITALS: BP 133/59
[2019-02-02] MEDS: metroNIDAZOLE 500MG/100ML IVPB 100 ML IV SCH ×2 (02:08→14:35)
[2019-02-02] MEDS: CIPROFLOXACIN IV 400MG/200ML 200 ML IV SCH ×2 (03:28→15:32)
[2019-02-02 04:00] VITALS: BP 143/63
[2019-02-02 06:28] LABS: BASOPHILS % (AUTO) 0 % (0-10); EOSINOPHILS # (AUTO) 0.3 10^3/uL (0.0-0.3); EOSINOPHILS % (AUTO) 2 % (0-10); HEMATOCRIT 29 % (35-52); HEMOGLOBIN 8.9 G/DL (11.5-16.0); LYMPHOCYTES # (AUTO) 1.3 X 10^3 (1.0-4.0); LYMPHOCYTES % (AUTO) 10 % (12-44); MEAN CORPUSCULAR HEMOGLOBIN 25 PG (25-34); MEAN CORPUSCULAR HGB CONC 31 G/DL (32-36); MEAN CORPUSCULAR VOLUME 81 FL (80-99); MEAN PLATELET VOLUME 10.5 FL (7.4-10.4); MONOCYTES # (AUTO) 1.2 X 10^3 (0.0-1.0); MONOCYTES % (AUTO) 9 % (0-12); NEUTROPHILS # (AUTO) 10.6 X 10^3 (1.8-7.8); NEUTROPHILS % (AUTO) 80 % (42-75); PLATELET COUNT 243 10^3/uL (130-400); RED CELL DISTRIBUTION WIDTH 17.1 % (10.0-14.5); WHITE BLOOD COUNT 13.3 10^3/uL (4.3-11.0)
[2019-02-02 06:40] LABS: ALANINE AMINOTRANSFERASE 11 U/L (0-55); ALBUMIN 2.4 GM/DL (3.2-4.5); ALKALINE PHOSPHATASE 79 U/L (40-136); BILIRUBIN,TOTAL 0.4 MG/DL (0.1-1.0); BUN/CREATININE RATIO 17; CALCIUM 8.3 MG/DL (8.5-10.1); CARBON DIOXIDE 27 MMOL/L (21-32); CHLORIDE 106 MMOL/L (98-107); CREATININE SERUM 0.52 MG/DL (0.60-1.30); GFR ESTIMATED > 60; GLUCOSE 105 MG/DL (70-105); MAGNESIUM 2.1 MG/DL (1.8-2.4); PHOSPHORUS 2.7 MG/DL (2.3-4.7); POTASSIUM 3.6 MMOL/L (3.6-5.0); SODIUM 140 MMOL/L (135-145); TOTAL PROTEIN 4.9 GM/DL (6.4-8.2)
[2019-02-02] MEDS: THYROID (ARMOUR) 60 MG TABLET PO SCH (06:55)
[2019-02-02 08:00] VITALS: BP 133/60
[2019-02-02] MEDS: ENOXAPARIN 40 MG/0.4 ML (LOVENOX) SYR SC SCH (08:32)
[2019-02-02] MEDS: PANTOPRAZOLE 40 MG (PROTONIX) VIAL IV SCH (08:33)
[2019-02-02] MEDS: MAGNESIUM CITRATE 300 ML BTL PO SCH ×2 (08:34→20:12)
--- NOTE | 2019-02-02 09:06 | NUR ---
TPN - Potassium - 3.6, will give 40mEq IVPB over 4 hours x 1 today per TPN electrolyte protocol.
[2019-02-02] MEDS: POTASSIUM CL 10 MEQ/50 ML IVPB (PRE-MIX) IV SCH ×4 (09:35→13:33)
--- NOTE | 2019-02-02 11:40 | Progress Note ---
Subjective Date Seen by a Provider: February 02, 2019 Time Seen by a Provider: 11:35 Subjective/Events-last exam No acute events overnight. Patient reports passing flatus and denies nausea and vomiting. She rates her pain at about a 3 or 4 but says her LEGAL OPERATIONS MANAGER pump has been effective for control. Is currently NPO. Using incentive spirometer some. Chest x ray yesterday shows atelectasis. WBC trending down. Denies fever sweats chills shortness of breath or chest pain. Objective Exam Vital Signs Date Time Temp Pulse Resp B/P (MAP) Pulse Ox O2 Delivery O2 Flow Rate FiO2 02/02/19 08:00 99.2 97 20 133/60 (84) 92 Room Air 02/02/19 07:50 Room Air 02/02/19 04:00 99.8 95 24 143/63 (89) 91 Room Air 02/02/19 00:00 99.3 101 22 133/59 (83) 88 Room Air 02/01/19 20:20 Room Air 02/01/19 19:19 98.2 97 20 122/59 (80) 93 Room Air 02/01/19 15:42 98.4 97 20 133/63 (86) 92 Room Air 02/01/19 12:00 98.4 99 20 131/61 (84) 91 Room Air I & O 02/02/19 07:00 Intake Total 4011.4008 ml Output Total 2770 ml Balance 1241.4008 ml Capillary Refill : General Appearance: No Apparent Distress HEENT: PERRL/EOMI, Normal ENT Inspection Neck: Full Range of Motion, Supple Respiratory: Chest Non Tender, Normal Breath Sounds, No Accessory Muscle Use, No Respiratory Distress Cardiovascular: Regular Rate, Rhythm Gastrointestinal: non tender, soft, other (incision clean/dry, NATHEN serous) Extremity: Normal Capillary Refill Neurologic/Psychiatric: Alert, Oriented x3, No Motor/Sensory Deficits, Normal Mood/Affect, career based intervention coordinator II-XII Norm as Tested Skin: Normal Color Lymphatic: No Adenopathy Results Lab Laboratory Tests 02/01/19 15:00: Urine Color YELLOW, Urine Clarity CLEAR, Urine pH 6, Urine Specific [place] 1.020, Urine Protein 2+H, Urine Glucose (UA) NEGATIVE, Urine Ketones NEGATIVE, Urine Nitrite NEGATIVE, Urine Bilirubin NEGATIVE, Urine Urobilinogen NORMAL, Urine Leukocyte Esterase NEGATIVE, Urine RBC (Auto) NEGATIVE, Urine RBC NONE, Urine WBC RARE, Urine Squamous Epithelial Cells NONE, Urine Crystals NONE, Urine Bacteria NEGATIVE, Urine Casts NONE, Urine Mucus NEGATIVE, Urine Culture Indicated NO 02/01/19 17:29: Glucometer 115H 02/02/19 00:41: Glucometer 136H 02/02/19 05:49: Glucometer 114H 02/02/19 06:08: White Blood Count 13.3H, Red Blood Count 3.59L, Hemoglobin 8.9L, Hematocrit 29L , Mean Corpuscular Volume 81, Mean Corpuscular Hemoglobin 25, Mean Corpuscular Hemoglobin Concent 31L, Red Cell Distribution Width 17.1H, Platelet Count 243, Mean Platelet Volume 10.5H, Neutrophils (%) (Auto) 80H, Lymphocytes (%) (Auto) 10L, Monocytes (%) (Auto) 9, Eosinophils (%) (Auto) 2, Basophils (%) (Auto) 0, Neutrophils # (Auto) 10.6H, Lymphocytes # (Auto) 1.3, Monocytes # (Auto) 1.2H, Eosinophils # (Auto) 0.3, Basophils # (Auto) 0.0, Sodium Level 140, Potassium Level 3.6, Chloride Level 106, Carbon Dioxide Level 27, Anion Gap 7, Blood Urea Nitrogen 9, Creatinine 0.52L, Estimat Glomerular Filtration Rate > 60, BUN/ Creatinine Ratio 17, Glucose Level 105, Calcium Level 8.3L, Corrected Calcium 9.6, Phosphorus Level 2.7, Magnesium Level 2.1, Total Bilirubin 0.4, Aspartate Amino Transf (AST/SGOT) 10, Alanine Aminotransferase (ALT/SGPT) 11, Alkaline Phosphatase 79, Total Protein 4.9L, Albumin 2.4L Microbiology 01/29/19 MRSA Screen - Final, Complete MRSA not isolated Assessment/Plan Assessment/Plan Assessment/Plan benign symptomatic transverse colonic stricture secondary to adhesions. s/p laparoscopic JF, segmental transverse colon resection and enterrhaphy x3. Leukocytosis (improving) atelectasis Clamp NG tube, If no nausea by PM and still passing flatus then remove NG tube abd advance diet to clear liquid Pain control ambulation IS Clinical Quality Measures DVT/VTE Risk/Contraindication: Risk Factor Score Per Nursin RFS Level Per Nursing on Admit: 4+=Very High MIGUEL ANGEL CORONA DO February 02, 2019 11:40
[2019-02-02] MEDS: 1/2 NS IV SOLUTION 1,000 ML IV SCH ×2 (11:51→20:11)
[2019-02-02 12:00] VITALS: BP 147/67
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
--- NOTE | 2019-02-02 16:00 | NUR ---
Wasted 15 mL of fentanyl from CADD with KALI Franks.
[2019-02-02 16:20] VITALS: BP 147/67
[2019-02-02] MEDS: [UNRECOGNIZED DRUG - OTHER] IV SCH ×11 (17:01)
[2019-02-02] MEDS: SODIUM CHLORIDE IV SCH ×11 (17:01)
[2019-02-02] MEDS: SODIUM ACETATE IV SCH ×11 (17:01)
[2019-02-02 19:40] VITALS: BP 143/64
[2019-02-02] MEDS: rOPINIRole 1 MG (REQUIP) TABLET PO SCH (20:11)
[2019-02-02] MEDS: traZODone 150 MG (DESYREL) TABLET PO SCH (20:11)
[2019-02-03 00:44] VITALS: BP 138/66
[2019-02-03] MEDS: metroNIDAZOLE 500MG/100ML IVPB 100 ML IV SCH ×2 (02:08→14:38)
[2019-02-03] MEDS: CIPROFLOXACIN IV 400MG/200ML 200 ML IV SCH ×2 (02:08→15:49)
[2019-02-03 04:00] VITALS: BP 139/65
[2019-02-03 05:27] LABS: BASOPHILS % (AUTO) 0 % (0-10); EOSINOPHILS # (AUTO) 0.2 10^3/uL (0.0-0.3); EOSINOPHILS % (AUTO) 3 % (0-10); HEMATOCRIT 28 % (35-52); HEMOGLOBIN 8.3 G/DL (11.5-16.0); LYMPHOCYTES % (AUTO) 14 % (12-44); MEAN CORPUSCULAR HEMOGLOBIN 25 PG (25-34); MEAN CORPUSCULAR HGB CONC 30 G/DL (32-36); MEAN CORPUSCULAR VOLUME 82 FL (80-99); MEAN PLATELET VOLUME 10.2 FL (7.4-10.4); MONOCYTES # (AUTO) 0.8 X 10^3 (0.0-1.0); MONOCYTES % (AUTO) 11 % (0-12); NEUTROPHILS # (AUTO) 5.1 X 10^3 (1.8-7.8); NEUTROPHILS % (AUTO) 72 % (42-75); PLATELET COUNT 237 10^3/uL (130-400); RED CELL DISTRIBUTION WIDTH 17.6 % (10.0-14.5); WHITE BLOOD COUNT 7.1 10^3/uL (4.3-11.0)
[2019-02-03] MEDS: THYROID (ARMOUR) 60 MG TABLET PO SCH (05:38)
[2019-02-03 05:53] LABS: ALANINE AMINOTRANSFERASE 10 U/L (0-55); ALBUMIN 2.5 GM/DL (3.2-4.5); ALKALINE PHOSPHATASE 71 U/L (40-136); BILIRUBIN,TOTAL 0.3 MG/DL (0.1-1.0); BUN/CREATININE RATIO 20; CALCIUM 8.4 MG/DL (8.5-10.1); CARBON DIOXIDE 25 MMOL/L (21-32); CHLORIDE 107 MMOL/L (98-107); CREATININE SERUM 0.54 MG/DL (0.60-1.30); GFR ESTIMATED > 60; GLUCOSE 107 MG/DL (70-105); MAGNESIUM 1.9 MG/DL (1.8-2.4); PHOSPHORUS 2.8 MG/DL (2.3-4.7); POTASSIUM 4.2 MMOL/L (3.6-5.0); SODIUM 139 MMOL/L (135-145)
[2019-02-03 08:00] VITALS: BP 167/69
[2019-02-03] MEDS: MAGNESIUM CITRATE 300 ML BTL PO SCH ×2 (08:39→20:18)
[2019-02-03] MEDS: PANTOPRAZOLE 40 MG (PROTONIX) VIAL IV SCH (08:39)
[2019-02-03] MEDS: ENOXAPARIN 40 MG/0.4 ML (LOVENOX) SYR SC SCH (08:39)
--- NOTE | 2019-02-03 11:56 | Progress Note (SOAP) ---
Subjective Date Seen by a Provider: February 03, 2019 Time Seen by a Provider: 11:50 Subjective/Events-last exam patient seen at request of patient. doing well. no fever/chills. tolerating clears and multiple soft BM's. pain controlled. Objective Exam Vital Signs Date Time Temp Pulse Resp B/P (MAP) Pulse Ox O2 Delivery O2 Flow Rate FiO2 02/03/19 08:45 Room Air 02/03/19 08:00 97.8 98 20 167/69 (101) 93 Room Air 02/03/19 04:00 98.7 97 24 139/65 (89) 92 Room Air 02/03/19 00:44 98.0 98 22 138/66 (90) 91 Room Air 02/02/19 20:15 Room Air 02/02/19 19:40 97.8 102 20 143/64 (90) 93 Room Air 02/02/19 16:20 99.2 98 22 147/67 (93) 92 Room Air 02/02/19 12:00 98.5 105 20 147/67 (93) 90 Room Air I & O 02/03/19 07:00 Intake Total 630 ml Output Total 3450 ml Balance -2820 ml Capillary Refill : General Appearance: No Apparent Distress HEENT: PERRL/EOMI Neck: Full Range of Motion Respiratory: Chest Non Tender, Lungs Clear, Normal Breath Sounds Cardiovascular: Regular Rate, Rhythm Gastrointestinal: normal bowel sounds, soft, other (inc clean/dry) Extremity: Normal Capillary Refill Neurologic/Psychiatric: Alert, Oriented x3 Skin: Normal Color Lymphatic: No Adenopathy Results Lab Laboratory Tests 02/03/19 05:17: White Blood Count 7.1, Red Blood Count 3.35L, Hemoglobin 8.3L, Hematocrit 28L, Mean Corpuscular Volume 82, Mean Corpuscular Hemoglobin 25, Mean Corpuscular Hemoglobin Concent 30L, Red Cell Distribution Width 17.6H, Platelet Count 237, Mean Platelet Volume 10.2, Neutrophils (%) (Auto) 72, Lymphocytes (%) (Auto) 14 , Monocytes (%) (Auto) 11, Eosinophils (%) (Auto) 3, Basophils (%) (Auto) 0, Neutrophils # (Auto) 5.1, Lymphocytes # (Auto) 1.0, Monocytes # (Auto) 0.8, Eosinophils # (Auto) 0.2, Basophils # (Auto) 0.0, Sodium Level 139, Potassium Level 4.2, Chloride Level 107, Carbon Dioxide Level 25, Anion Gap 7, Blood Urea Nitrogen 11, Creatinine 0.54L, Estimat Glomerular Filtration Rate > 60, BUN/ Creatinine Ratio 20, Glucose Level 107H, Calcium Level 8.4L, Corrected Calcium 9.6, Phosphorus Level 2.8, Magnesium Level 1.9, Total Bilirubin 0.3, Aspartate Amino Transf (AST/SGOT) 10, Alanine Aminotransferase (ALT/SGPT) 10, Alkaline Phosphatase 71, Total Protein 5.0L, Albumin 2.5L 02/03/19 05:32: Glucometer 104 Microbiology 01/29/19 MRSA Screen - Final, Complete MRSA not isolated Assessment/Plan Assessment/Plan Assess & Plan/Chief Complaint benign symptomatic transverse colonic stricture secondary to adhesions. s/p laparoscopic JF, segmental transverse colon resection and enterrhaphy x3. doing well. multiple liquid BM's. minimal SS NATHEN output. advance to DYS3 diet. continue ambulation. home soon. will leave scripts with patients spouse. Clinical Quality Measures DVT/VTE Risk/Contraindication: Risk Factor Score Per Nursin RFS Level Per Nursing on Admit: 4+=Very High MATILDE ADAMS MD February 03, 2019 11:56
[2019-02-03] MEDS ORDERED: LEVO750T9 PO (11:58)
[2019-02-03] MEDS ORDERED: HYDR-3820 PO (11:58)
[2019-02-03 12:00] VITALS: BP 144/61
--- NOTE | 2019-02-03 12:00 | Discharge Inst-Surgical ---
D/C Lap Instructions-JAIO New, Converted, or Re-Newed RX: RX on Chart Follow Up Appt in 1 week keep drain in until seen in office. record daily output Activity as tolerated No driving for 24 hours No driving while on pain medications Incentive Spirometry use every 2 hours while awake Low residue diet. Symptoms to Report: Fever over 101 degree F, Nausea/Vomiting Infection Signs and Symptoms to report: Increased redness, Foul odor of wound, Increased drainage Bathing instructions: May shower Operative Area Clean/Dry; Keep incision clean/dry If any problems/questions: Contact your physician or go to Emergency Room MATILDE ADAMS MD February 03, 2019 11:59
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
--- NOTE | 2019-02-03 15:14 | Progress Note ---
Subjective Date Seen by a Provider: February 03, 2019 Time Seen by a Provider: 15:10 Subjective/Events-last exam No acute events overnight. NG tube has been removed and patient reports drinking a small amount of clear liquids. Has had a BM and is passing flatus. No nausea or vomiting. No other concerns at this time. Objective Exam Vital Signs Date Time Temp Pulse Resp B/P (MAP) Pulse Ox O2 Delivery O2 Flow Rate FiO2 02/03/19 12:00 98.7 96 20 144/61 (88) 93 Room Air 02/03/19 08:45 Room Air 02/03/19 08:00 97.8 98 20 167/69 (101) 93 Room Air 02/03/19 04:00 98.7 97 24 139/65 (89) 92 Room Air 02/03/19 00:44 98.0 98 22 138/66 (90) 91 Room Air 02/02/19 20:15 Room Air 02/02/19 19:40 97.8 102 20 143/64 (90) 93 Room Air 02/02/19 16:20 99.2 98 22 147/67 (93) 92 Room Air I & O 02/03/19 07:00 Intake Total 630 ml Output Total 3450 ml Balance -2820 ml Capillary Refill : General Appearance: No Apparent Distress HEENT: PERRL/EOMI, Normal ENT Inspection Neck: Full Range of Motion, Normal Inspection, Non Tender Respiratory: Chest Non Tender, Normal Breath Sounds, No Accessory Muscle Use, No Respiratory Distress Cardiovascular: Regular Rate, Rhythm Gastrointestinal: normal bowel sounds, soft, other (incision clean/dry, draining serosanguinous fluid) Extremity: Normal Inspection, Normal Range of Motion Neurologic/Psychiatric: Alert, Oriented x3, No Motor/Sensory Deficits, Normal 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, 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 Norm as Tested Skin: Normal Color, Warm/Dry Lymphatic: No Adenopathy Results Lab Laboratory Tests 02/03/19 05:17: White Blood Count 7.1, Red Blood Count 3.35L, Hemoglobin 8.3L, Hematocrit 28L, Mean Corpuscular Volume 82, Mean Corpuscular Hemoglobin 25, Mean Corpuscular Hemoglobin Concent 30L, Red Cell Distribution Width 17.6H, Platelet Count 237, Mean Platelet Volume 10.2, Neutrophils (%) (Auto) 72, Lymphocytes (%) (Auto) 14 , Monocytes (%) (Auto) 11, Eosinophils (%) (Auto) 3, Basophils (%) (Auto) 0, Neutrophils # (Auto) 5.1, Lymphocytes # (Auto) 1.0, Monocytes # (Auto) 0.8, Eosinophils # (Auto) 0.2, Basophils # (Auto) 0.0, Sodium Level 139, Potassium Level 4.2, Chloride Level 107, Carbon Dioxide Level 25, Anion Gap 7, Blood Urea Nitrogen 11, Creatinine 0.54L, Estimat Glomerular Filtration Rate > 60, BUN/ Creatinine Ratio 20, Glucose Level 107H, Calcium Level 8.4L, Corrected Calcium 9.6, Phosphorus Level 2.8, Magnesium Level 1.9, Total Bilirubin 0.3, Aspartate Amino Transf (AST/SGOT) 10, Alanine Aminotransferase (ALT/SGPT) 10, Alkaline Phosphatase 71, Total Protein 5.0L, Albumin 2.5L 02/03/19 05:32: Glucometer 104 Microbiology 01/29/19 MRSA Screen - Final, Complete MRSA not isolated Assessment/Plan Assessment/Plan Assessment/Plan benign symptomatic transverse colonic stricture secondary to adhesions. s/p laparoscopic JF, segmental transverse colon resection and enterrhaphy x3. bowel function advance diet. continue ambulation and IS Clinical Quality Measures DVT/VTE Risk/Contraindication: Risk Factor Score Per Nursin RFS Level Per Nursing on Admit: 4+=Very High MIGUEL ANGEL CORONA DO February 03, 2019 15:14
[2019-02-03 16:00] VITALS: BP 131/60
[2019-02-03] MEDS: HYDROcodone/APAP 7.5 MG/325 MG (LORTAB, LORCET PLUS) TABLET PO PRN ×2 (16:04→20:20)
[2019-02-03 20:00] VITALS: BP 121/75
[2019-02-03] MEDS: traZODone 150 MG (DESYREL) TABLET PO SCH (20:19)
[2019-02-03] MEDS: rOPINIRole 1 MG (REQUIP) TABLET PO SCH (20:19)
[2019-02-04] VITALS: BP 145/78
[2019-02-04] MEDS: metroNIDAZOLE 500MG/100ML IVPB 100 ML IV SCH (02:13)
[2019-02-04] MEDS: CIPROFLOXACIN IV 400MG/200ML 200 ML IV SCH (02:14)
[2019-02-04 04:00] VITALS: BP 119/69
[2019-02-04] MEDS: THYROID (ARMOUR) 60 MG TABLET PO SCH (05:50)
--- NOTE | 2019-02-04 05:53 | NUR ---
Fentanyl (Cadd pump) dc'd and 85 mls wasted with AliceRN
[2019-02-04 06:00] LABS: BASOPHILS % (AUTO) 1 % (0-10); EOSINOPHILS # (AUTO) 0.2 10^3/uL (0.0-0.3); EOSINOPHILS % (AUTO) 4 % (0-10); HEMATOCRIT 27 % (35-52); HEMOGLOBIN 8.3 G/DL (11.5-16.0); LYMPHOCYTES # (AUTO) 0.9 X 10^3 (1.0-4.0); LYMPHOCYTES % (AUTO) 18 % (12-44); MEAN CORPUSCULAR HEMOGLOBIN 25 PG (25-34); MEAN CORPUSCULAR HGB CONC 31 G/DL (32-36); MEAN CORPUSCULAR VOLUME 82 FL (80-99); MEAN PLATELET VOLUME 10.3 FL (7.4-10.4); MONOCYTES # (AUTO) 0.6 X 10^3 (0.0-1.0); MONOCYTES % (AUTO) 14 % (0-12); NEUTROPHILS # (AUTO) 2.9 X 10^3 (1.8-7.8); NEUTROPHILS % (AUTO) 63 % (42-75); PLATELET COUNT 240 10^3/uL (130-400); RED CELL DISTRIBUTION WIDTH 17.4 % (10.0-14.5); WHITE BLOOD COUNT 4.6 10^3/uL (4.3-11.0)
[2019-02-04 06:23] LABS: MAGNESIUM 1.8 MG/DL (1.8-2.4); PHOSPHORUS 4.4 MG/DL (2.3-4.7)
[2019-02-04 07:44] VITALS: BP 133/66
[2019-02-04 08:13] VITALS: BP 133/66
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
== END 2019-02-04 08:20 | disposition home or self-care (01) | DRG 331 ==
LOC: 4TH 10:10 → ICU 01-30 19:00 → 4TH 01-31 17:17
PROVIDERS: ADMIT Surgery; ATTEND Surgery
PROC: 0DN84ZZ Release Small Intestine, Percutaneous Endoscopic Approach (ICD-10-PCS; 2019-01-30)
PROC: 0DQ80ZZ Repair Small Intestine, Open Approach (ICD-10-PCS; 2019-01-30)
PROC: 0DBL0ZZ Excision of Transverse Colon, Open Approach (ICD-10-PCS; principal; 2019-01-30 16:11)
PROC: 0DNL4ZZ Release Transverse Colon, Percutaneous Endoscopic Approach (ICD-10-PCS; 2019-01-30 16:11)
DX: K56.51 Intestinal adhesions [bands], with partial obstruction (principal); K56.690 Other partial intestinal obstruction; E66.01 Morbid (severe) obesity due to excess calories; G47.33 Obstructive sleep apnea (adult) (pediatric); F41.9 Anxiety disorder, unspecified; F32.9 Major depressive disorder, single episode, unspecified; E78.00 Pure hypercholesterolemia, unspecified; R60.0 Localized edema; M19.91 Primary osteoarthritis, unspecified site; J43.9 Emphysema, unspecified; R01.1 Cardiac murmur, unspecified; K21.9 Gastro-esophageal reflux disease without esophagitis; E03.9 Hypothyroidism, unspecified; G62.9 Polyneuropathy, unspecified; N31.9 Neuromuscular dysfunction of bladder, unspecified; K59.09 Other constipation; M79.7 Fibromyalgia; H54.3 Unqualified visual loss, both eyes; D64.9 Anemia, unspecified; I10 Essential (primary) hypertension; Z68.37 Body mass index [BMI] 37.0-37.9, adult; Z98.84 Bariatric surgery status
CPT/HCPCS: 36415; 71045; 80048; 80053; 81000; 82962; 83735; 84100; 84134; 84478; 85007; 85025; 85027; 87081; 88307; 94664

== ENCOUNTER → 2019-08-23 | Outpatient (CLI) | payer BC, OTHER ==
[~2019-08-23] MED LIST changes: +BARIUM for suspension 96% w/w (Vanilla Silq Medium Density) PO ONE; +BARIUM for suspension 98% w/w (Vanilla Silq High Density) PO ONE; +HYDR-3820 PO; +IOHEXOL 240 MGI/ML 50 ML (OMNIPAQUE) VIAL IV ONE; +LEVO750T9 PO; -TIZA4TAB3 PO; +TIZA4TAB4 PO
--- NOTE | 2019-08-23 09:45 | Diagnostic Imaging Report ---
INDICATION: Abdominal wall wound with drainage. The patient presents to undergo fistulogram under fluoroscopy for further characterization. Patient brought to the fluoroscopy suite, placed on table in the supine position. The small opening along the superior aspect of the patient's midline abdominal incision was catheterized with a pediatric feeding tube. Fluoroscopy over the abdomen was performed during the injection of a small amount of Omnipaque 240. 44 seconds of fluoroscopic time was utilized. The pediatric feeding tube extended into the tract approximately 5 to 6 cm. Contrast was injected, filling the tract. This appears to be blind ending. No fistulous communication with abdominal bowel loops is identified. Contrast noted left of the tract on several images is located outside the patient on the scan and a towel. 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 No fistulous communication with intra-abdominal bowel loops is seen. Dictated by: Dictated on workstation # [id number]
== END ==
LOC: RAD 07:08
PROVIDERS: ATTEND Nurse Practitioner Family
DX: K63.2 Fistula of intestine (principal)
CPT/HCPCS: 49465

== ENCOUNTER 2019-09-02 05:40 | Outpatient (CLI) | payer BC ==
[~2019-09-02] VITALS: Ht 162.6 cm; Wt 104.1 kg
[~2019-09-02 05:40] MED LIST changes: -BARIUM for suspension 96% w/w (Vanilla Silq Medium Density) PO ONE; -BARIUM for suspension 98% w/w (Vanilla Silq High Density) PO ONE; -IOHEXOL 240 MGI/ML 50 ML (OMNIPAQUE) VIAL IV ONE
== END 2019-09-02 11:10 ==
LOC: PREOP 05:40
PROVIDERS: ATTEND Surgery
DX: Z01.818 Encounter for other preprocedural examination (principal)

== ENCOUNTER 2019-09-05 11:31 | Day surgery (SDC) | payer BC, OTHER ==
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
[2019-09-05] VITALS (10 sets, daily range): BP systolic 123–151; BP diastolic 52–81
[~2019-09-05] VITALS: Ht 162.6 cm; Wt 103.6 kg
[~2019-09-05 11:31] MED LIST changes: -ARIP5TAB20 PO; +ARIP5TAB57 PO; -LAMO100T PO; +LAMO100T5 PO
[2019-09-05] MEDS ORDERED: LACTATED RINGERS 1,000 ML IV PRN (11:56)
[2019-09-05] MEDS ORDERED: ceFAZolin 2 GM/50 ML NS 50 ML IV ONE (12:00)
--- NOTE | 2019-09-05 13:05 | Progress Note-Pre Operative ---
Pre-Operative Progress Note H&P Reviewed The H&P was reviewed, patient examined and no changes noted. Date Seen by Provider: Sep 05, 2019 Time Seen by Provider: 13:00 Date H&P Reviewed: Sep 05, 2019 Time H&P Reviewed: 13:00 Pre-Operative Diagnosis: chronic abd wall sinus tract MATILDE ADAMS MD Sep 05, 2019 13:04 POS
[2019-09-05] MEDS ORDERED: HYDR-34 PO (13:07)
--- NOTE | 2019-09-05 13:07 | Discharge Inst-Surgical ---
D/C Lap Instructions-BRYAN New, Converted, or Re-Newed RX: RX on Chart Follow Up Appt in 2 weeks Activity as tolerated Regular Diet Symptoms to Report: Fever over 101 degree F, Nausea/Vomiting Infection Signs and Symptoms to report: Increased redness, Foul odor of wound, Increased drainage Bathing instructions: May shower Operative Area Clean/Dry; Keep incision clean/dry If any problems/questions: Contact your physician or go to Emergency Room MATILDE ADAMS MD Sep 05, 2019 13:07 POS
[2019-09-05] MEDS ORDERED: ACETAMINOPHEN 325 MG TABLET PO PRN (13:15)
[2019-09-05] MEDS ORDERED: ONDANSETRON 4 MG/2 ML (SDV) Z0FRAN IVP PRN (13:15)
[2019-09-05] MEDS ORDERED: HYDROcodone/APAP 5 MG/325 MG (LORTAB) TAB PO ONE (13:15)
[2019-09-05] MEDS ORDERED: morphine INJ 10 MG/ML 1ML (SYR OR VIAL) IVP PRN ×2 (13:15)
[2019-09-05] MEDS ORDERED: BUP/EPI 0.5% 1:200,000 (MARCAINE) 10ML VIAL IJ ONE (13:19)
[2019-09-05] MEDS ORDERED: ONDANSETRON 4 MG/2 ML (SDV) Z0FRAN ONE (14:13)
[2019-09-05] MEDS ORDERED: SEVOFLURANE (ULTANE) 15 ML INHAL SOLN ONE ×2 (14:13→15:37)
[2019-09-05] MEDS ORDERED: proPOfol 200 MG/20 ML (DIPRIVAN) VIAL IV ONE (14:13)
[2019-09-05] MEDS ORDERED: LIDOCAINE PF 2% 5 ML (XYLOCAINE) VIAL ONE (14:13)
[2019-09-05] MEDS ORDERED: DEXAMETHASONE 10 MG/ML (DECADRON) 1 ML VIAL ONE (14:13)
[2019-09-05] MEDS ORDERED: fentaNYL INJECTION 100 MCG/2 ML AMP ONE (14:14)
[2019-09-05] MEDS ORDERED: MIDAZOLAM 2 MG/2 ML (VERSED) VIAL ONE (14:14)
[2019-09-05] MEDS ORDERED: ceFAZolin INJECTION 2,000 MG ONE (14:48)
--- NOTE | 2019-09-05 15:57 | Progress Note-Post Operative ---
Post-Operative Progess Note Surgeon (s)/Manufacturing Machine Operator (s) Surgeon MATILDE ADAMS MD Manufacturing Machine Operator: chaparro briggs CALL CENTER CONSULTANT Pre-Operative Diagnosis chronic abd wall sinus tract Post-Operative Diagnosis same with infected abdominal wall mesh, sutures and metal clip. Procedure & Operative Findings Date of Procedure 09/05/19 Procedure Performed/Findings excision cyst and excision foreign body fascia. Anesthesia Type get Estimated Blood Loss Estimated blood loss (mL): minimal Specimens/Packing Specimens Removed abd wall fistula and FB MATILDE ADAMS MD Sep 05, 2019 15:57 POS
--- NOTE | 2019-09-05 16:33 | Anesthesia-General Post-Op ---
General Patient Condition Mental Status/LOC: Same as Preop Cardiovascular: Satisfactory Nausea/Vomiting: Absent Respiratory: Satisfactory Pain: Controlled Complications: Absent Post Op Complications Complications None Follow Up Care/Instructions Patient Instructions None needed. Anesthesia/Patient Condition Patient Condition Patient is doing well, no complaints, stable vital signs, no apparent adverse anesthesia problems. No complications reported per nursing. ARNULFO COREY CRNA Sep 05, 2019 16:33 POS
--- NOTE | 2019-09-05 16:50 | NUR ---
Pt arrived to floor with Karen RN via stretcher. Report received at bedside, abd dressing CDI, pt denies needs at this time, call light in reach, will continue to monitor.
--- NOTE | 2019-09-05 19:10 | NUR ---
VERONICA HERRERA demonstrates understanding of discharge instructions and accurately returns instructions upon questioning. Copy of Post-Discharge Instructions and Medication Discharge Instructions given to pt. VERONICA HERRERA is able to manage continuing needs after discharge. Patients belongings returned to pt. Skin dry and intact; no breakdown noted. Patient discharged from 4th floor on 09/05/2019 at 1840. VERONICA HERRERA left floor walking, accompanied by RN.
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
--- OUTSIDE RECORDS SUMMARY | 2019-10-01 11:28 | XMS REPORT ---
Author Author Chana Marie [facility] ou Address [address] [place], [place] [id number] Care Team Providers Care Ict Systems Test Engineer Name Role Phone Sean Marie PCP Sean [...] ABD AND PELVIS W/CONTRAST 12/18/2018 12:00 AM CBC With Auto Differential 03/11/2019 12:00 AM CMP 03/11/2019 12:00 AM Thyroid stimulating hormone (TSH) 03/11/2019 12:00 A M Vitamin B12 03/11/2019 12:00 AM IRON PANEL 03/11/2019 12:00 AM IRON PANEL 03/11/2019 12:00 AM IRON PANEL 03/11/2019 12:00 AM fibromyalgia, RLS EKG (12-lead electrocardiogram) 04/01/2015 12:00 AM Medications Active Name Start Date Estimated Completion Date SIG Co mments Xopenex HFA 45 mcg/actuation inhalation HFA aerosol inhaler 09/01 inhale 2 puffs (90 mcg) by inhalation route every 6 hours furosemide 40 mg oral tablet 03/20/2017 dede e 1-2 tablets by oral route daily as needed Flonase Allergy Relief 50 mcg/actuation nasal spray,suspension Singulair oral Zyrtec oral Breo Ellipta 100-25 mcg/dose inhalation blister with device 07/07 inhale 1 puff by inhalation route once daily at the same time each day Xanax 0.25 mg oral tablet 09/11/2017 take 1 tablet by oral route 2 times a day as needed Savella 50 mg oral tablet take 1 tablet (50 mg) by oral route 2 times per day aripiprazole 5 mg oral tablet 05/14/2018 TAKE 1 TABL ET BY MOUTH ONCE DAILY nystatin 100,000 unit/gram topical cream 07/20/2018 apply to the affected area(s) by topical route 3 times per day [employer] Thyroid 60 mg oral tablet 08/06/2018 TAKE ONE TAB LET BY MOUTH ONCE DAILY gabapentin 600 mg oral tablet ta ke 1 tablet (600 mg) by oral route 2 times per day Tessalon Perles 100 mg oral capsule 08/13/2018 take 1 capsule (100 mg) by oral route 3 times per day as needed for cough lamotrigine 100 mg oral tablet 08/27/2018 T CHRISTIN ONE TABLET BY MOUTH ONCE DAILY (FILL AFTER TAPER OF 25 MG IS COMPLETE) ropinirole 4 mg oral tablet 10/15/2018 TAKE ONE TABLET BY MOUTH ONCE DAILY 1-3 HOURS BEFORE BEDTIME Tussionex Pennkinetic ER 10-8 mg/5 mL oral suspension, extended rel 12 hr 10/16/2018 take 5 milliliters by oral route every 1 2 hours lovastatin 40 mg oral tablet 11/12/2018 DEDE E 1 TABLET BY MOUTH ONCE DAILY AT BEDTIME trazodone 150 mg oral tablet 12/17/2018 TAKE 1 TABLE T BY MOUTH AT BEDTIME Toviaz 8 mg oral tablet extended release 24 hr 02/18/2019 TAKE 1 TABLET BY MOUTH ONCE DAILY Augmentin 875-125 mg oral tablet take 1 tablet by oral route every 12 hours for 7 days Name Start Date Expiration Date SIG Comments Synthroid 50 mcg oral tablet 11/16/2009 02/14/2010 1QD - TAKE ONE TABLET BY MOUTH EVERY DAY Bactrim DS 800-160 mg oral tablet 02/08/2010 02/22/2010 take 1 tablet by oral route every 12 hours for 14 days Medrol (Jeronimo) 4 mg oral tablets,dose pack 03/03/2010 03/13/20 10 take as directed for 5 days Levaquin [...] mg oral tablet 04/19/2011 04/13/2012 1HS - TA KE ONE TABLET BY MOUTH AT BEDTIME Zithromax Z-Jeronimo 250 mg oral tablet 07/12/2011 07/17/2011 take 2 tablets (500 mg) by oral route once daily for 1 day then 1 tablet (250 mg) by oral route once daily for 4 days Levaquin 500 mg oral tablet 08/05/2011 08/12/2011 take 1 tablet (500 mg) by oral route once daily for 7 days Tussionex Pennkinetic ER 10-8 mg/5 mL oral suspension, extended rel 12 hr 08/05/2011 08/15/2011 take 5 milliliters by oral r oute every 12 hours for 10 days Levaquin [...] prednisone 20 mg oral tablet 05/03/2013 05/12/2013 dede e 3 tabs PO x 3 days, then 2 tabs PO x 3 days, and then 1 tab PO x 3 days ropinirole 2 mg oral tablet 07/01/2013 08/30/2013 TAKE ONE TABLET BY MOUTH AT BEDTIME levothyroxine 75 mcg oral tablet 05/06/2013 06/05/2013 TAKE ONE TABLET BY MOUTH EVERY DAY loratadine 10 mg oral tablet 06/17/2013 07/17/2013 DEDE E ONE TABLET BY MOUTH EVERY DAY Zithromax Z-Jeronimo 250 mg oral tablet 07/24/2013 07/29/2013 take 2 tablets (500 mg) by oral route once daily for 1 day then 1 tablet (250 mg) by oral route once daily for 4 days Keflex 500 mg oral capsule 10/22/2014 10/29/2014 take 1 capsule (500 mg) by oral route every 12 hours for 7 days Vibramycin 100 mg oral capsule 01/26/2015 02/09/2015 t christin 1 capsule (100 mg) by oral route [...] citrate 100 mg oral tablet extended release 12/31/19 16 04/29/2016 take 1 tablet (100 mg) by oral route 2 times per day in the morning and evening for 30 days prednisone 20 mg oral tablet 01/16/2016 01/20/2016 dede e 2 tabs daily x 2 days then 1 tab daily x 2 days triamcinolone acetonide 0.1 % topical cream 01/16/201601/22 apply a thin layer to the affected [...] 15 mcg/2 mL inhalation solution for nebulization 016 01/17/2017 inhale 2 milliliters (15 mcg) by inhalation [...] lamotrigine 100 mg oral tablet 10/30/2017 10/30/2017 T CHRISTIN ONE TABLET BY MOUTH ONCE DAILY Spiriva Respimat 2.5 mcg/actuation inhalation mist 11/29/2017 11/29/2017 INHALE TWO SPRAY(S) BY MOUTH ONCE DAILY AT THE SAME TIME EACH DAY levalbuterol tartrate 45 mcg/actuation inhalation HFA aeroso l inhaler 11/29/2017 11/29/2017 INHALE TWO PUFFS INTO LUNGS EVERY 6 [...] route every 12 hours for 7 days Xifaxan 550 mg oral tablet 12/26/2018 01/09/2019 take 1 tablet (550 mg) by oral route 3 times per day for 14 days doxycycline hyclate 100 mg oral capsule 02/18/2019 03/04/2019 take 1 capsule (100 mg) by oral [...] folic acid 800 mcg oral tablet 02/27/2013 t christin 1 tablet (0.8 mg) by oral route once daily niacin 500 mg oral tablet 02/27/2013 take 1 tab @ HS aspirin 81 mg oral tablet,delayed release (DR/EC) 07/07/2017 take 1 tablet (81 mg) by oral route once daily triamcinolone acetonide 0.1 % topical cream 07/12/20112012 apply a thin layer to the affected area(s) by topical route 2 times per day Alen BATRES Cough and Chest 10-200 mg/5 mL oral liquid 07/12/2011 07/13/2011 take 5 milliliters by oral route 2 times a day hydrocodone-chlorpheniramine 10-8 mg/5 mL oral suspens ion,extended rel 12 hr 07/13/2011 02/27/2013 take 5 milliliters by oral route every 1 2 hours Toviaz 8 mg oral tablet extended release 24 hr take 1 tablet (8 mg) by oral [...] 0.01 % (0.1 mg/gram) vaginal cream 11/14/2013 014 use vaginally twice a week Lyrica 75 mg oral capsule 11/25/2013 12/02/2013 take 1 capsule (75 mg) by oral route 2 times per day [facility] Thyroid 60 mg oral tablet 12/02/2013 take 1 tablet by oral route daily for 30 days [facility] Thyroid 60 mg oral tablet 04/07/2014 TAKE ONE TABLET BY MOUTH ONCE DAILY milk thistle oral 11/24/2014 chromium picolinate oral 06/09/2014 Zofran ODT oral 10/09/2015 Dexilant 60 mg oral capsule,biphase delayed releas 07/09/2014 11/24/2014 TAKE ONE CAPSULE BY MOUTH EVERY DAY [facility] Thyroid 60 mg oral tablet 08/04/2014 TAKE [...] Dulera 200-5 mcg/actuation inhalation HFA aerosol inhaler 201301/12/2015 inhale 2 puffs by inhalation route 2 times a day Ambien 5 mg oral tablet 10/09/2015 take 1 t ablet (5 mg) by oral route once daily at bedtime Inavale 5-325 mg oral tablet 08/22/2014 11/24/2014 take 1 tablet by oral route every 6 hours as needed for pain trazodone 150 mg oral tablet 11/17/2014 04/01/2015 DEDE E ONE TABLET BY MOUTH EVERY DAY AT BEDTIME Abilify 2 mg oral tablet 05/20/2016 phentermine 37.5 mg oral tablet 10/09/2015 take 1 ta blet in morning Dexilant 60 mg oral capsule,biphase delayed releas 03/05/2015 take 1 capsule (60 mg) by oral route once daily Requip 2 mg oral tablet 03/19/2015 10/09/2015 take 1 t ablet by mouth at bedtime. for 90 days Garcinia Cambogia 200-500 mcg-mg oral tablet 10/09/2015 triamcinolone acetonide 0.1 % topical cream 05/06/20152015 apply a thin layer to the affected area(s) by topical route 2 times per day [facility] Thyroid 60 mg oral tablet 07/13/2015 TAKE ONE TABLET BY MOUTH ONCE DAILY Xopenex 1.25 mg/3 mL inhalation solution for nebulization 201404/14/2017 inhale 3 milliliters (1.25 mg) by nebulization route 3 times per day promethazine-codeine 6.25-10 mg/5 mL oral syrup 08/25/2015 10/09/2015 take 5 milliliters by oral route every 6 hours as needed, not to exceed 30 mL in 24 hours Pennsaid 20 mg/gram /actuation(2 %) topical solution i n metered-dose pump 08/31/2015 11/03/2015 apply 2 pumps (40 mg) to the affected knee(s) by topical route 2 times per day Saxenda 3 mg/0.5 mL (18 mg/3 mL) subcutaneous pen injector 09/1011/03/2015 inject 0.5 milliliter (3 mg) by subcutaneous route once daily in the abdomen, thigh, or upper arm metaxalone 800 mg oral tablet 10/12/2015 11/17/2015 TA KE ONE TABLET BY MOUTH THREE TIMES DAILY NEEDED Lyrica 75 mg oral capsule 10/12/2015 11/17/2015 take 1 capsule by oral route 3 times a day for 30 days Movantik 25 mg oral tablet 07/01/2016 09/19/2016 take 1 tablet (25 mg) by oral route once daily in the morning for 30 days [facility] Thyroid 60 mg oral tablet 07/11/2016 08/09/2017 [...] mL (18 mg/3 mL) subcutaneous pen injector 201610/27/2017 inject 3 mg by subcutaneous route once daily in the abdomen, thigh, or upper arm Xarelto 20 mg oral tablet 01/29/2018 take 1 tablet (20 mg) by oral route once daily with the evening meal Inavale 10-325 mg oral tablet 01/19/2018 04/30/2018 take [...] gabapentin 600 mg oral tablet 03/29/2018 04/11/2018 ta ke 1 tablet (600 mg) by oral route at HS gabapentin 300 mg oral capsule 03/29/2018 04/11/2018 t christin 1 capsule (300 mg) by oral route [...] armodafinil 150 mg oral tablet 06/25/2018 10/16/2018 T CHRISTIN 1 TABLET BY MOUTH ONCE DAILY IN THE MORNING Problem List Description Status Onset Hypothyroidism, acquired Active Allergic rhinitis; due to other allergen Active Chronic Obstructive Pulmonary Disease Active Osteoarthritis Active 11/14/2013 Hyperlipidemia, unspecified Active 06/11/2014 Vital Signs Date Time BP-Sys(mm[Hg] BP-Jocelyn(mm[Hg]) HR(bpm) RR(rpm) Temp WT HT HC BMI BSA BMI Percentile O2 Sat(%) 03/11/2019 2:02:00 PM 120 mmHg 64 mmHg 83 bpm 14 rpm 98.1 F 205 lbs 64 in 35.1878 kg/m 2.0491 m 98 % 02/18/2019 10:36:00 AM 122 mmHg 68 mmHg 92 bpm 14 rpm 98.6 F 206 lbs 64 in 35.36 kg/m2 2.05 m2 97 % 12/31/2018 2:52:00 PM 132 mmHg 70 mmHg [...] 18 rpm 97.4 F 247.5 lbs 64 i n 42.48 kg/m2 2.25 m2 97 % 10/16/2018 [...] F 288 lbs 65 in 47.9252 kg/m 2.45 m2 99 % 05/22/2018 2:37:00 PM 146 mmHg 98 mmHg 87 bpm 18 rpm 97.9 F 289.25 lbs 65 i n 48.13 kg/m2 2.453 m 97 % 04/30/2018 2:17:00 PM 140 mmHg 92 mmHg 95 bpm 20 rpm 98.2 F 286.375 lbs 65 in 47.6548 kg/m 2.44 m2 97 % 04/11/2018 1:12:00 PM 138 mmHg 84 mmHg 92 bpm 98.2 F 282.125 lbs 65 i n 46.95 kg/m2 2.4226 m 97 % 03/29/2018 3:06:00 PM 138 mmHg 78 mmHg 84 bpm 18 rpm 98.4 F 278 lbs 65 in 46.2611 kg/m 2.40 m2 98 % 03/09/2018 8:58:00 AM 151 mmHg 85 mmHg 94 bpm 18 rpm 98.8 F 271.25 lbs 65 in 45.14 kg/m2 2.3754 m 95 % 02/28/2018 8:02:00 AM 130 mmHg 74 mmHg 89 bpm 18 rpm 97.9 F 268.125 lbs 65 in 44.6179 kg/m 2.36 m2 97 % 01/29/2018 3:32:00 PM 149 mmHg 81 mmHg 89 bpm 98.6 F 263.375 lbs 65 i n 43.83 kg/m2 2.3407 m 10/27/2017 9:06:00 AM 130 mmHg 75 mmHg 90 bpm 20 rpm 99.2 F 264 lbs 65 in 43.9314 kg/m 2.34 m2 97 % 10/23/2017 8:32:00 AM 166 mmHg 84 mmHg 87 bpm 16 rpm 98.9 F 270 lbs 65 in 44.93 kg/m2 2.3699 m 97 % 09/20/2017 11:24:00 AM [...] 18 rpm 97.8 F 265.25 lbs 65 i n 44.14 kg/m2 2.35 m2 93 % 01/16/2016 [...] 18 rpm 96.6 F 260.062 lbs 65 i n 43.28 kg/m2 2.33 m2 98 % 03/14/2014 [...] 18 rpm 98 F 264.125 lbs 65 i n 43.9522 kg/m 2.344 m 97 % 08/21/2013 [...] 18 rpm 98.3 F 265.25 lbs 65 i n 44.1395 kg/m 2.349 m 05/31/2013 8:03:00 AM [...] 18 rpm 98 F 266.125 lbs 65 i n 44.2851 kg/m 2.3529 m 02/27/2013 11:02:00 AM 142 mmHg 74 mmHg 74 bpm 18 rpm 98.1 F 267.5 lbs 65 i n 44.51 kg/m2 2.36 m2 01/08/2013 10:50:00 AM [...] 1 Mg [facility]# [id number] Re viewed 08/25/2015 12:00 AM Depo-Medrol, Per 80 Mg [facility]#[id number] Reviewed 08/25/2015 12:00 AM Rocephin 1 gram [facility]#[id number] Reviewe d 10/09/2015 12:00 AM COMPLETE CBC W/AUTO DIFF WBC Reviewed 10/09/2015 12:00 AM COMPREHEN METABOLIC PANEL Reviewed 10/09/2015 12:00 AM GLYCOSYLATED HEMOGLOBIN TEST Reviewed 10/09/2015 12:00 AM ASSAY THYROID STIM HORMONE Reviewed 11/03/2015 8:54 AM URINALYSIS AUTO W/O SCOPE Reviewed 11/03/2015 12:[address] HEAD/BRAIN W/O & W/DYE Reviewed 11/17/2015 12:00 AM Rocephin 1 gram [facility]#[id number] Reviewe d 08/05/2011 12:00 AM CHEST X-RAY 2VW FRONTAL&LATL Reviewed 12/09/2015 12:00 AM THER/PROPH/DIAG INJ SC/IM Reviewed 12/09/2015 12:00 AM Rocephin 1 gram [facility]#[id number] Reviewe d 11/08/2011 12:00 AM Decadron Inj. per 1mg-[facility] [id number] tlinger Reviewed 11/08/2011 12:00 AM Depo-Medrol 80 Mg [facility] [id number] garrett Reviewed 05/20/2016 12:00 AM COMPLETE CBC W/AUTO [...] AM URNLS DIP STICK/TABLET RGNT AUTO W/O BERHANE ROSCOPY Returned 10/30/2012 12:00 AM Depo-Medrol 80 Mg Im/C'pancho Reviewed 10/30/2012 12:00 AM Decadron, Per 1 Mg [facility]# [id number] Re viewed 10/30/2012 12:00 AM COMPLETE CBC W/AUTO DIFF [...] 1 Mg [facility]# [id number] Re viewed 01/08/2013 12:00 AM Rocephin 1 gram [facility]#[id number] Reviewe d 01/08/2013 12:00 AM COMPREHEN METABOLIC PANEL Reviewed [...] 1 Mg [facility]# [id number] Re viewed 02/27/2013 12:00 AM Depo-Medrol, Per 80 Mg [facility]#[id number] Reviewed 03/04/2013 12:00 AM MAMMOGRAM SCREENING Reviewed 03/05/2013 12:00 AM CYTOPATH TBS C/V MANUAL Reviewed 03/05/2013 12:00 AM MAMMOGRAM BOTH BREASTS Reviewed 03/27/2013 12:00 AM THER/PROPH/DIAG INJ SC/IM Reviewed 03/27/2013 12:00 AM Bicillin CR, 1.2 million units [facility]# [id number] Reviewed 07/20/2018 12:00 AM X-RAY EXAM OF [...] AM COMPLETE CBC W/AUTO DIFF WBC Reviewed 12/18/2018 12:00 AM COMPREHEN METABOLIC PANEL Reviewed 12/18/2018 12:00 AM RADEX ABDOMEN COMPL W/DCBTS&/ERC VIEWS R eviewed 12/18/2018 12:00 AM ASSAY OF LIPASE Reviewed 12/31/2018 12:00 AM CLOSTRIDIUM AG EIA Returned 12/31/2018 12:00 AM FECES CULTURE AEROBIC BACT Returned 12/31/2018 12:00 AM OVA AND PARASITES SMEARS Returned 12/31/2018 12:00 AM LEUKOCYTE ASSESSMENT FECAL Returned 12/31/2018 12:00 AM OCCULT BLD FECES 1-3 TESTS Returned 08/09/2013 12:00 AM THER/PROPH/DIAG INJ SC/IM Reviewed 08/09/2013 12:00 AM Decadron, Per 1 Mg [facility]# [id number] Re viewed 08/09/2013 12:00 AM Depo-Medrol, Per 80 Mg [facility]#[id number] Reviewed 02/18/2019 12:00 AM COMPLETE CBC W/AUTO DIFF WBC Returned 02/18/2019 12:00 AM COMPREHEN METABOLIC PANEL Returned 02/18/2019 12:00 AM C-REACTIVE PROTEIN Returned 02/18/2019 12:00 AM RBC SED RATE AUTOMATED Returned 08/21/2013 12:00 AM X-RAY EXAM OF HAND [...] 1 gram [facility]#[id number] Reviewe d 04/01/2015 12:00 AM COMPLETE CBC W/AUTO DIFF WBC Reviewed 04/01/2015 12:00 AM COMPREHEN METABOLIC PANEL Reviewed 04/01/2015 12:00 AM ASSAY THYROID STIM HORMONE Reviewed 04/01/2015 12:00 AM CHEST X-RAY 2VW FRONTAL&LATL Reviewed 05/07/2015 12:00 AM THER/PROPH/DIAG INJ SC/IM Reviewed 05/07/2015 12:00 AM Decadron injection Reviewed 05/07/2015 12:00 AM Depo-Medrol 40mg Reviewed 05/11/2011 12:00 AM Depo-Medrol 80 Mg [facility] [id number] garrett Reviewed 05/11/2011 12:00 AM Decadron Inj. per 1mg-[facility] [id number] tlinger Reviewed Results Summary Date and Description Results 05/12/2010 5:55 AM TRIGLYCERIDES 397.0 mg/dLCHO LESTEROL 190.0 mg/dLHDL 39.0 mg/dLTOT CHOL/HDL 4.9 LDL (CALC) 72.0 mg/dLTSH 2.270 uIU/mLVITAMIN B12 493.0 pg/mLGLUCOSE 98.0 mg/dLSODIUM 142.0 mmol/LPOTASSIUM 4.40 mmol/LCHLORIDE 106.0 mmol/LCO2 29.0 mmol/LBUN 19.0 mg/dLCREATININE 0.70 mg/dLSGOT/AST 21.0 [...] 02/07/2012 11:20 AM TSH 2.440 uIU/mLT4 8.60 ug/d L 10/31/2012 8:25 AM WBC 8.4 RBC 4.86 HGB 13.40 g /dLHCT 42.0 %MCV 86.0 fLMCH 27.60 pgMCHC 31.90 [...] 106.0 mmol/LCO2 27.0 mmol/LBUN 16.0 mg/dLCREATININE 0.80 mg/dLSGOT/AST 20.0 IU/LSGPT/ALT 26.0 IU/LALK PHOS 94.0 IU/LTOTAL PROTEIN 7.90 g/dLALBUMIN 4.40 g/dLTOTAL BILI 0.30 mg/dLCALCIUM 10.90 mg/dLAGE 47 GFR NonAA 76 GFR AA 92 eGFR 60 eGFR AA* 60 TSH 0.960 uIU/mL 02/15/2013 8:55 AM TRIGLYCERIDES 196.0 mg/dLCHO LESTEROL 213.0 mg/dLHDL 43.0 mg/dLTOT CHOL/HDL 5.0 LDL (CALC) 131.0 mg/dLGLUCOSE 107.0 mg/dLSODIUM 145.0 mmol/LPOTASSIUM 4.30 mmol/LCHLORIDE 106.0 mmol/LCO2 29.0 mmol/LBUN 17.0 mg/dLCREATININE 0.80 mg/dLSGOT/AST 20.0 IU/LSGPT/ALT 26.0 IU/LALK PHOS 82.0 IU/LTOTAL PROTEIN 7.10 g/dLALBUMIN 3.90 g/dLTOTAL BILI 0.30 mg/dLCALCIUM 10.30 mg/dLAGE 47 GFR NonAA 76 GFR AA 92 eGFR 60 eGFR AA* 60 TSH 1.230 uIU/mL GLYCOHEMOGLOBIN A1C 6.0 % 06/26/2013 9:40 AM WBC 4.7 RBC 4.88 HGB 13.40 g /dLHCT 41.50 %MCV 85.0 fLMCH 27.50 pgMCHC 32.30 [...] RA Factor 16.30 IU/mLSEDRATE 29.0 mm/hrGLUCOSE 105.0 mg/dLSODIUM 143.0 mmol/LPOTASSIUM 4.70 mmol/LCHLORIDE 105.0 mmol/LCO2 28.0 mmol/LBUN 13.0 mg/dLCREATININE 0.80 mg/dLSGOT/AST 26.0 IU/LSGPT/ALT 27.0 IU/LALK PHOS 109.0 IU/LTOTAL PROTEIN 7.50 g/dLALBUMIN 4.20 g/dLTOTAL BILI 0.40 mg/dLCALCIUM 9.80 mg/dLAGE 48 GFR NonAA 76 GFR AA 92 eGFR >60 mL/min/1.73 m2eGFR AA* >60 TRIGLYCERIDES 250.0 mg/dLCHOLESTEROL 180.0 mg/dLHDL 39.0 mg/dLTOT CHOL/HDL 4.6 LDL (CALC) 91.0 mg/Leanna REACTIVE PROTEIN 15.0 mg/BREONNA Direct Negative 02/27/2014 3:24 PM WBC 8.7 RBC 5.12 HGB 13.90 g /dLHCT 42.50 %MCV 83.0 fLMCH 27.10 pgMCHC 32.70 g/dLRDW SD 41 RDW CV 13.60 %MPV 11.10 fLPLT 237 NRBC# 0.00 NRBC% 0.0 %NEUT 67.70 %%LYMP 21.70 %%MONO 8.30 %%EOS 1.80 %%BASO 0.50 %#NEUT 5.88 #LYMP 1.89 #MONO 0.72 #EOS 0.16 #BASO 0.04 MANUAL DIFF NOT IND GLUCOSE 99.0 mg/dLSODIUM 143.0 mmol/LPOTASSIUM 4.10 mmol/LCHLORIDE 103.0 mmol/LCO2 29.0 mmol/LBUN 14.0 mg/dLCREATININE 0.80 mg/dLSGOT/AST 16.0 IU/LSGPT/ALT 15.0 IU/LALK PHOS 104.0 IU/LTOTAL PROTEIN 7.20 g/dLALBUMIN 3.90 g/dLTOTAL BILI 0.40 mg/dLCALCIUM 9.90 mg/dLAGE 48 GFR NonAA 76 GFR AA 92 eGFR 60 eGFR AA* 60 M pneumoniae IgG Abs 1201.0 U/mLM pneumoniae IgM Abs <770 U/mL 06/11/2014 5:23 AM TRIGLYCERIDES 244.0 mg/dLCHO LESTEROL 165.0 mg/dLHDL 40.0 mg/dLTOT CHOL/HDL 4.1 LDL (CALC) 76.0 mg/dL 04/01/2015 9:55 AM GLUCOSE 100.0 mg/dLSODIUM 14 4.0 mmol/LPOTASSIUM 4.50 mmol/LCHLORIDE 105.0 mmol/LCO2 29.0 mmol/LBUN 13.0 mg/dLCREATININE 0.90 mg/dLSGOT/AST 20.0 IU/LSGPT/ALT 17.0 IU/LALK PHOS 76.0 IU/LTOTAL PROTEIN 7.10 g/dLALBUMIN 4.10 g/dLTOTAL BILI 0.40 mg/dLCALCIUM 10.40 mg/dLAGE 49 GFR NonAA 66 GFR AA 80 eGFR >60 mL/min/1.73 m2eGFR AA* >60 WBC 5.0 RBC 4.94 HGB 13.40 g/dLHCT 42.40 %MCV 86.0 fLMCH 27.10 pgMCHC 31.60 g/dLRDW SD 43 RDW CV 13.70 %MPV 10.60 fLPLT 224 NRBC# 0.00 NRBC% 0.0 %NEUT 59.60 %%LYMP 28.60 %%MONO 8.20 %%EOS 3.0 %%BASO 0.60 %#NEUT 2.98 #LYMP 1.43 #MONO 0.41 #EOS 0.15 #BASO 0.03 MANUAL DIFF NOT IND TSH 1.210 uIU/mL 10/09/2015 9:52 AM WBC 4.7 RBC 5.07 HGB 13.50 g /dLHCT 42.70 %MCV 84.0 fLMCH 26.60 pgMCHC 31.60 g/dLRDW SD 42 RDW CV 13.90 %MPV 10.80 fLPLT 195 NRBC# 0.00 NRBC% 0.0 %NEUT 57.70 %%LYMP 28.40 %%MONO 10.50 %%EOS 2.80 %%BASO 0.60 %#NEUT 2.68 #LYMP 1.32 #MONO 0.49 #EOS 0.13 #BASO 0.03 MANUAL DIFF NOT IND GLUCOSE 100.0 mg/dLSODIUM 141.0 mmol/LPOTASSIUM 4.30 mmol/LCHLORIDE 105.0 mmol/LCO2 30.0 mmol/LBUN 12.0 mg/dLCREATININE 0.80 mg/dLSGOT/AST 23.0 IU/LSGPT/ALT 22.0 IU/LALK PHOS 88.0 IU/LTOTAL PROTEIN 6.80 g/dLALBUMIN 4.0 g/dLTOTAL BILI 0.30 mg/dLCALCIUM 9.70 mg/dLAGE 50 GFR NonAA 75 GFR AA 91 eGFR >60 mL/min/1.73meGFR AA* >60 TSH 1.80 uIU/mLHemoglobin A1c 5.80 %Estim. Avg Glu (eAG) 120 11/03/2015 8:54 AM Clarity Ur clear Color Ur ye llow Glucose Ur-sCnc negative Bilirub Ur Ql Strip neg Ketones Ur Ql Strip neg Sp Gr Ur Qn 1.005 Hgb Ur Ql Strip neg pH Ur-LsCnc 5.5 Urobilinogen Ur-mCnc 0.2 Nitrite Ur Ql Strip neg WBC Est Ur Ql Strip neg 05/20/2016 10:32 AM WBC 4.7 RBC 5.48 HGB 14.10 g /dLHCT 45.40 %MCV 83.0 fLMCH 25.70 pgMCHC 31.10 g/dLRDW SD 41 RDW CV 13.60 %MPV 10.0 fLPLT 234 NRBC# 0.00 NRBC% 0.0 %NEUT 56.0 %%LYMP 30.30 %%MONO 9.70 %%EOS 3.0 %%BASO 0.60 %#NEUT 2.64 #LYMP 1.43 #MONO 0.46 #EOS 0.14 #BASO 0.03 MANUAL DIFF NOT IND GLUCOSE 85.0 mg/dLSODIUM 144.0 mmol/LPOTASSIUM 4.30 mmol/LCHLORIDE 105.0 mmol/LCO2 30.0 mmol/LBUN 12.0 mg/dLCREATININE 0.80 mg/dLSGOT/AST 26.0 IU/LSGPT/ALT 31.0 IU/LALK PHOS 95.0 IU/LTOTAL PROTEIN 7.20 g/dLALBUMIN 4.20 g/dLTOTAL BILI 0.40 mg/dLCALCIUM 10.10 mg/dLAGE 50 GFR NonAA 75 GFR AA 91 eGFR >60 mL/min/1.73meGFR AA* >60 TSH 2.370 uIU/mLT4 6.10 ug/dL 12/27/2016 4:54 PM TSH 1.740 uIU/mLWBC 7.5 RBC 4.93 HGB 13.20 g/dLHCT 41.10 %MCV 83.0 fLMCH 26.80 pgMCHC 32.10 g/dLRDW SD 40 RDW CV 13.30 %MPV 10.60 fLPLT 229 NRBC# 0.00 NRBC% 0.0 %NEUT 64.20 %%LYMP 24.40 %%MONO 8.20 %%EOS 2.40 %%BASO 0.50 %#NEUT 4.80 #LYMP 1.82 #MONO 0.61 #EOS 0.18 #BASO 0.04 MANUAL DIFF NOT IND GLUCOSE 97.0 mg/dLSODIUM 142.0 mmol/LPOTASSIUM 3.80 mmol/LCHLORIDE 103.0 mmol/LCO2 29.0 mmol/LBUN 16.0 mg/dLCREATININE 0.80 mg/dLSGOT/AST 21.0 IU/LS GPT/ALT 18.0 IU/LALK PHOS 112.0 IU/LTOTAL PROTEIN 7.0 g/dLALBUMIN 3.90 g/dLTOTAL BILI 0.30 mg/dLCALCIUM 9.40 mg/dLAGE 51 GFR NonAA 75 GFR AA 91 eGFR >60 mL/min/1.73meGFR AA* >60 03/03/2017 7:43 PM SPECIMEN SOURCE: CUTANEOUS A BSCESS LIMB 12/18/2018 10:40 AM GLUCOSE 122 SODIUM 134 POTAS SIUM 3.5 CHLORIDE 96 CO2 28 BUN 40 CREATININE 1.3 SGOT/AST 13 SGPT/ALT 14 ALK PHOS 120 TOTAL PROTEIN 6.7 ALBUMIN 3.7 TOTAL BILI 0.7 CALCIUM 9.6 AGE 53 GFR NonAA 43 GFR AA 52 eGFR 43 eGFR AA* 52 LIPASE <4 WBC 6.5 RBC 5.13 HGB 12.8 HCT 40.3 MCV 79 MCH 25.0 MCHC 31.8 RDW SD 42 RDW CV 14.6 MPV 10.1 PLT 277 NRBC# 0.00 NRBC% 0.0 %NEUT 63.1 %LYMP 15.2 %MONO 19.5 %EOS 0.9 %BASO 0.8 #NEUT 4.07 #LYMP 0.98 #MONO 1.26 #EOS 0.06 #BASO 0.05 MANUAL DIFF SEE BELOW SEGS 41 BANDS 21 LYMPHS 14 MONOS 18 EOS 3 METAS 3 MICRO 1+ History Of Immunizations Name Date Admin Mfg Name Mfg Code Trade Name Lot# Route Inj Vis Given Vis Pub CVX Tdap 04/26/2012 [employer] SKB ADACEL [id number] Intramuscular Left Arm 04/26/2012 08/19/2008 115 Tdap 03/14/2014 [employer] SKB BOOSTRIX [id number] Intramuscular Left Deltoid 03/14/2014 02/07/2013 115 Influenza 06/22/2015 [place]. NOV FLUVIRIN [id number] Intramuscular Left Deltoid 06/23/2015 05/08/2015 140 Pneumococcal 09/16/2015 Not Entered NE PNEUMOVAX 23 Intramu scular Not Entered 11/11/2016 10/02/2019 33 Influenza 07/07/2017 [facility] Fluzone Quadrivalent [id number] Intramuscular Left Deltoid 07/07/2017 05/08/2015 150 History [...] 3:04PM Upper respiratory tract infection, unspecified type Nov 9 2 016 5:20PM Fibromyalgia Dec 31 2015 2:40PM Allergic reaction Jan 16 2016 11:00AM Fibromyalgia Feb 25 2016 4:00PM Fibromyalgia Apr 01 2016 10:02AM Hypothyroidism, Acquired May 20 2016 9:46AM Fibromyalgia May 20 2016 9:46AM Chronic Obstructive Pulmonary Disease May 20 2016 9:46AM Fibromyalgia Jun 17 2016 10:59AM Opioid abuse with opioid-induced disorder Jul 01 2016 8:25A M Fibromyalgia muscle pain Jul 01 2016 8:25AM Left Lower Hematoma Jul 01 2016 8:25AM Chronic Obstructive Pulmonary Disease Sep 19 2016 10:18AM Anxiety Sep 19 2016 10:18AM Drug induced constipation Sep 19 2016 10:18AM Adverse effect of other opioids, initial encounter Sep 19 10:18AM Depression 2016 8:57AM Fibromyalgia Dec 27 2016 3:12PM Dyspareunia in female Dec 27 2016 3:12PM Hormone replacement therapy Dec 27 2016 3:12PM Hypothyroidism, Acquired Dec 27 2016 3:12PM Hormone replacement therapy Jan 02 2017 1:41PM Chest pain Jan 09 2017 1:49PM Left Cutaneous abscess of limb, unspecified Mar 03 2017 5:1 3PM Left Cellulitis of unspecified part of limb Mar 03 2017 5:1 3PM Edema Mar 20 2017 2:30PM Dyspnea Mar [...] of other opioids, initial encounter Aug 09 9:27AM Pulmonary embolism Aug 09 2017 9:27AM Morbidly obese Aug 09 2017 9:27AM Anterior spinal artery compression syndrome of lumbar region Aug 31 2017 3:00PM Paraparesis of both lower limbs Aug 31 2017 3:00PM Anesthesia Aug 31 2017 3:00PM Neuropathic pain Aug 31 2017 3:00PM Neurogenic bladder Aug 31 2017 3:00PM Neurogenic bowel Aug 31 2017 3:00PM Fibromyalgia Aug 31 2017 3:00PM Chronic pain syndrome Aug 31 2017 3:00PM Anterior spinal artery compression syndrome of lumbar region Sep 20 2017 11:28AM Paraparesis of both lower limbs Sep 20 [...] syndrome of lumbar region Oct 27 2017 9:09AM Paraparesis of both lower limbs Oct 27 2017 9:09AM Anesthesia Oct 27 2017 9:09AM Neuropathic pain Oct 27 2017 9:09AM Neurogenic bladder Oct 27 2017 9:09AM Neurogenic bowel Oct 27 2017 9:09AM Fibromyalgia Oct 27 2017 9:09AM Chronic pain syndrome Oct 27 2017 9:09AM Encounter for screening mammogram for breast cancer Nov 13 018 4:10PM Fibromyalgia Jan 19 2018 11:03AM Chronic [...] 2018 10:43AM Gastroenteritis Dec 31 2018 2:59PM Epigastric pain Feb 18 2019 10:40AM Wound cellulitis Feb 18 2019 10:40AM Anemia Mar 11 2019 2:05PM Memory loss Mar 11 2019 2:05PM Payers Insurance Name Company Name Plan Name Plan Number Policy Number Ehsan cy Group Number Start Date [employer] [place] [id number] N/ A [employer] [facility] PERCENT Tuesday, November 21, 2017 [employer] [facility] Alex 100 percent Tuesday, November 21, 2017 [employer] [place] [id number] y, October 02, 2009 [employer] [place] [id number] December 08, 2011 State Self Insurance Fund *INVALID State Self Insurance [id number] N/A State Self Insurance Fund *INVALID State Self Insurance [id number] N/A [employer] [place] [id number] July 03, 2014 [employer] [place] [id number] September 11, 2014 History of Encounters Visit Date Visit Type Provider 03/11/2019 Office visit Sean Marie MD 02/18/2019 Office visit Sean Marie MD 12/31/2018 Office visit Sean Maire MD 12/26/2018 Office visit Sean Marie MD 12/18/2018 Office visit Kiarra Ramos ACCOUNT PLANNER 11/01/2018 Office visit Sean Marie MD 10/16/2018 Office visit Sean Marie MD 08/13/2018 Office visit Aurora Martin APR N 08/12/2018 Office visit Aurora Martin APR N 07/25/2018 [facility] Michelle Greco MD 07/20/2018 Office visit Sean Marie MD 05/22/2018 Office visit Sean Marie MD 04/30/2018 Office visit Sean Marie MD 04/11/2018 Office visit Fredis Rico DO 03/29/2018 Office visit Sean Marie MD 03/09/2018 Office visit Sean Marie MD 02/28/2018 Office visit Fredis Rico DO 01/29/[address] Laine santana MD 01/19/2018 Office visit Sean Marie MD 10/27/2017 Office visit Fredis Rico DO 10/23/2017 Office visit Sean Marie MD 09/20/2017 Office visit Fredis Rico DO 08/31/2017 Office visit Fredis Rico DO 08/09/2017 Office visit Sean Marie MD 07/07/2017 Office visit Sean Marie MD 06/16/2017 Office visit Sean Marie MD 05/15/2017 Office visit Sean Marie MD 04/23/2017 Office visit Aurora Martin APR N 04/14/2017 Office visit Sean Marie MD 03/20/2017 Office visit Sean Marie MD 03/03/2017 Office visit Aurora Martin APR N 01/09/2017 Office visit Sean Marie MD 01/02/2017 Office visit Sean Marie MD 12/27/2016 Office visit Saen Marie MD 2016 Office visit Sean Marie MD 09/19/2016 Office visit Sean Marie MD 07/01/2016 Office visit Sean Marie MD 06/17/2016 Office visit Sean Marie MD 05/20/2016 Office visit 05/20/2016 Office visit Sean Marie MD 05/16/2016 Hospital Michelle Greco MD 04/01/2016 Office visit Sean Marie MD 02/25/2016 Office visit Sean Marie MD 01/16/2016 Office visit Jania Stanley ACCOUNT PLANNER 01/07/2016 Hospital Michelle Greco MD 12/31/2015 Office visit Sean Marie MD 12/09/2015 Office visit Miguel A Munoz APR N 11/17/2015 Office visit Sean Marie MD 11/03/2015 Office visit Sean Marie MD 10/09/2015 Office visit 10/09/2015 Office visit Sean Marie MD 08/31/2015 Office visit Sean Marie MD 08/25/2015 Office visit Sean Marie MD 06/05/2015 Office visit Sean Marie MD 05/07/2015 Office visit Amaris Gentile ACCOUNT PLANNER 05/06/2015 Office visit Kiarra Ramos ACCOUNT PLANNER 04/01/2015 Office visit 04/01/2015 Office visit Sean Marie MD 04/01/2015 Hospital Michelle Greco MD 03/26/2015 Office visit Sean Marie MD 03/19/2015 Office visit Sean Marie MD 02/13/2015 Office visit Sean Marie MD 01/26/2015 Office visit Leena BILLINGSLEY RN 01/12/2015 Office visit Sean Marie MD 11/24/2014 Office visit Kiarra Ramos ACCOUNT PLANNER 10/22/2014 Office visit Miguel A Munoz APR N 08/22/2014 Office visit Sean Marie MD 08/01/2014 Office visit Sean Marie MD 06/09/2014 Office visit Kiarra Ramos ACCOUNT PLANNER 03/14/2014 Office visit Leena BILLINGSLEY RN 02/27/2014 Office visit Leena BILLINGSLEY RN 12/02/2013 Office visit Sean Marie MD 11/25/2013 Office visit Sean Marie MD 11/14/2013 Office visit Kiarra Ramos ACCOUNT PLANNER 08/21/2013 Office visit Leena BILLINGSLEY RN 08/09/2013 Office visit Kiarra Ramos ACCOUNT PLANNER 06/26/2013 Hospital Michelle Greco MD 06/26/2013 Office visit Saen Marie MD 06/21/2013 Office visit Kiarra Ramos ACCOUNT PLANNER 05/31/2013 Office visit Leena BILLINGSLEY RN 05/10/2013 Office visit Leena BILLINGSLEY RN 05/03/2013 Office visit Leena BILLINGSLEY RN 03/27/2013 Office visit Kiarra Ramos ACCOUNT PLANNER 03/05/2013 Office visit Kiarra Ramos ACCOUNT PLANNER 02/27/2013 Office visit Kiarra Ramos ACCOUNT PLANNER 01/08/2013 Office visit Sean Marie MD 10/30/2012 Office visit Sean Marie MD 04/26/2012 Nurse visit Maria Antonia Barakat ACCOUNT PLANNER 02/07/2012 Office visit Sean Marie MD 02/07/2012 Hospital Michelle Greco MD 12/13/2011 Office visit Sean Marie MD 11/08/2011 Office visit Sean Marie MD 10/24/2011 Office visit Sean Marie MD 08/05/2011 Office visit Sean Marie MD 07/12/2011 Office visit Kiarra Ramos ACCOUNT PLANNER 05/11/2011 Office visit Sean Marie MD 04/19/2011 [...]
--- OUTSIDE RECORDS SUMMARY | 2019-10-01 11:29 | XMS REPORT ---
Author Author Chana Marie [facility] Address [address] [place], [place] [id number] Care Team Providers Care Telemetry Registered Nurse Name Role Phone Sean Marie PCP Sean [...] 12/18/2018 12:00 AM CBC With Auto Differential 02/18/2019 12:00 AM CMP 02/18/2019 12:00 AM CRP 02/18/2019 12:00 AM ESR 02/18/2019 12:00 AM fibromyalgia, RLS EKG (12-lead electrocardiogram) [...] by topical route 3 times per day [employer] Thyroid 60 mg oral tablet 08/06/2018 TAKE ONE TAB LET BY MOUTH ONCE DAILY gabapentin 600 mg oral tablet ta ke 1 tablet (600 mg) by oral route 2 times per day Tessalon Perles 100 mg oral capsule 08/13/2018 take 1 capsule (100 mg) by oral route 3 times per day as needed for cough lamotrigine 100 mg oral tablet 08/27/2018 T HCRISTIN ONE TABLET BY MOUTH ONCE DAILY (FILL [...] TAKE 1 TABLET BY MOUTH ONCE DAILY doxycycline hyclate 100 mg oral capsule 02/18/2019 [...] citrate 100 mg oral tablet extended release 12/31/1904/29/2016 take 1 tablet (100 mg) by oral [...] 3 times per day for 14 days Discontinued [...] by oral route 2 times per day [place] Thyroid 60 mg oral tablet 12/02/2013 take 1 tablet by oral route daily for 30 days [place] Thyroid 60 mg oral tablet 04/07/2014 TAKE ONE TABLET BY MOUTH ONCE DAILY milk thistle oral 11/24/2014 chromium picolinate oral 06/09/2014 Zofran ODT oral 10/09/2015 Dexilant 60 mg oral capsule,biphase delayed releas 07/09/2014 11/24/2014 TAKE ONE CAPSULE BY MOUTH EVERY DAY [place] Thyroid 60 mg oral tablet 08/04/2014 TAKE [...] by oral route once daily at bedtime [place] 5-325 mg oral tablet 08/22/2014 11/24/2014 take [...] by topical route 2 times per day [place] Thyroid 60 mg oral tablet 07/13/2015 TAKE [...] daily in the morning for 30 days [place] Thyroid 60 mg oral tablet 07/11/2016 08/09/2017 [...] route once daily with the evening meal [place] 10-325 mg oral tablet 01/19/2018 04/30/2018 take [...] HC BMI BSA BMI Percentile O2 Sat(%) 02/18/2019 10:36:00 AM 122 mmHg 68 mmHg 92 bpm 14 rpm 98.6 F 206 lbs 64 in 35.3595 kg/m 2.0541 m 97 % 12/31/2018 2:52:00 PM 132 mmHg 70 mmHg 104 bpm 14 rpm 97.3 F 226 lbs 64 in 38.79 kg/m2 2.15 m2 98 % 12/26/2018 10:41:00 AM 130 mmHg [...] 97.4 F 247.5 lbs 64 i n 42.4828 kg/m 2.2515 m 97 % 10/16/2018 [...] 97.9 F 289.25 lbs 65 i n 48.1332 kg/m 2.453 m 97 % 04/30/2018 2:17:00 PM 140 mmHg 92 mmHg 95 bpm 20 rpm 98.2 F 286.375 lbs 65 in 47.65 kg/m2 2.44 m2 97 % 04/11/2018 1:12:00 PM 138 mmHg 84 mmHg 92 bpm 98.2 F 282.125 lbs 65 i n 46.9476 kg/m 2.4226 m 97 % 03/29/2018 [...] 98.6 F 263.375 lbs 65 i n 43.8274 kg/m 2.3407 m 10/27/2017 9:06:00 AM [...] Per 1 Mg [facility]# [address]-48 Re viewed 08/25/2015 12:00 AM Depo-Medrol, Per 80 Mg [facility]#[address]-86 Reviewed 08/25/2015 12:00 AM Rocephin 1 gram [facility]#3829-2946-59 Reviewe d 10/09/2015 12:00 AM COMPLETE CBC W/AUTO DIFF WBC Reviewed 10/09/2015 12:00 AM COMPREHEN METABOLIC PANEL Reviewed 10/09/2015 12:00 AM GLYCOSYLATED HEMOGLOBIN TEST Reviewed 10/09/2015 12:00 AM ASSAY THYROID STIM HORMONE Reviewed 11/03/2015 8:54 AM URINALYSIS AUTO W/O SCOPE Reviewed 11/03/2015 12:[address] HEAD/BRAIN W/O & W/DYE Reviewed 11/17/2015 12:00 AM Rocephin 1 gram [facility]#0148-3363-49 Reviewe d 08/05/2011 12:00 AM CHEST X-RAY 2VW FRONTAL&LATL Reviewed 12/09/2015 12:00 AM THER/PROPH/DIAG INJ SC/IM Reviewed 12/09/2015 12:00 AM Rocephin 1 gram [facility]#4088-6549-49 Reviewe d 11/08/2011 12:00 AM Decadron Inj. per 1mg-[facility] [id number] tlinger Reviewed 11/08/2011 12:00 AM Depo-Medrol 80 Mg [facility] [id number] garrett Reviewed 05/20/2016 12:00 AM COMPLETE CBC [...] Per 1 Mg [facility]# [address]-57 Re viewed 10/30/2012 12:00 AM COMPLETE CBC [...] Per 1 Mg [facility]# [address]-53 Re viewed 01/08/2013 12:00 AM Rocephin 1 gram [facility]#3076-2935-45 Reviewe d 01/08/2013 12:00 AM COMPREHEN METABOLIC [...] Per 1 Mg [facility]# [address]-17 Re viewed 02/27/2013 12:00 AM Depo-Medrol, Per 80 Mg [facility]#8460-8297-50 Reviewed 03/04/2013 12:00 AM MAMMOGRAM SCREENING Reviewed 03/05/2013 12:00 AM CYTOPATH TBS C/V MANUAL Reviewed 03/05/2013 12:00 AM MAMMOGRAM BOTH BREASTS Reviewed 03/27/2013 12:00 AM THER/PROPH/DIAG INJ SC/IM Reviewed 03/27/2013 12:00 AM Bicillin CR, 1.2 million units [facility]# 6079 3-600-10 Reviewed 07/20/2018 12:00 AM X-RAY [...] Per 1 Mg [facility]# [address]-74 Re viewed 08/09/2013 12:00 AM Depo-Medrol, Per 80 Mg [facility]#5988-2936-80 Reviewed 08/21/2013 12:00 AM X-RAY EXAM OF [...] Rocephin 1 gram [facility]#3098-0181-48 Reviewe d 04/01/2015 12:00 AM COMPLETE CBC W/AUTO DIFF WBC Reviewed 04/01/2015 12:00 AM COMPREHEN METABOLIC PANEL Reviewed 04/01/2015 12:00 AM ASSAY THYROID STIM HORMONE Reviewed 04/01/2015 12:00 AM CHEST X-RAY 2VW FRONTAL&LATL Reviewed 05/07/2015 12:00 AM THER/PROPH/DIAG INJ SC/IM Reviewed 05/07/2015 12:00 AM Decadron injection Reviewed 05/07/2015 12:00 AM Depo-Medrol 40mg Reviewed 05/11/2011 12:00 AM Depo-Medrol 80 Mg [facility] [id number] garrett Reviewed 05/11/2011 12:00 AM Decadron Inj. per 1mg-[facility] [id number] tlinger Reviewed Results Summary Date and Description [...] Vis Given Vis Pub CVX Tdap 04/26/2012 [employer] SKB ADACEL [id number] Intramuscular Left Arm 04/26/2012 08/19/2008 115 Tdap 03/14/2014 [employer] SKB BOOSTRIX [id number] Intramuscular Left Deltoid 03/14/2014 02/07/2013 115 Influenza 06/22/2015 [employer] Pamela. NOV FLUVIRIN [id number] Intramuscular Left Deltoid 06/23/2015 05/08/2015 140 Pneumococcal 09/16/2015 Not Entered NE PNEUMOVAX 23 Intramu scular Not Entered 11/11/2016 10/02/2019 33 Influenza 07/07/2017 sanofi pasteur PMC Fluzone Quadrivalent [id number] Intramuscular Left Deltoid [...] b 2015 8:47AM Memory loss, short term Nov 03 2015 8:47AM Sinusitis Nov 17 2015 3:04PM Altered mental status Nov 17 2015 3:04PM Upper respiratory tract infection, unspecified type Dec 08 5:20PM Fibromyalgia Dec 31 2015 2:40PM Allergic [...] screening mammogram for breast cancer Nov 13 2 018 4:10PM Fibromyalgia Jan 19 2018 11:03AM [...] 10:40AM Wound cellulitis Feb 18 2019 10:40AM Payers Insurance Name Company Name Plan Name Plan Number Policy Number Ehsan cy Group Number Start Date [employer]BS [facility] [id number] N/ A [employer] Financial Assistance [employer] [facility] ancial Alex 100 PERCENT Tuesday, November 21, 2017 [employer] ancial Alex 100 percent Tuesday, November 21, 2017 [employer] [place] [id number] October 02, 2009 [employer] [place] [id number] December 08, 2011 State Self Insurance Fund *INVALID State Self Insurance [id number] N/A State Self Insurance Fund *INVALID State Self Insurance [id number] N/A [employer] [place] [id number] July 03, 2014 [employer] [place] [id number] September 11, 2014 History of Encounters Visit Date Visit Type Provider 02/18/2019 Office visit Sean Marie MD 12/31/2018 Office visit Sean Marie MD 12/26/2018 Office visit Sean Marie MD 12/18/2018 Office visit Kiarra Ramos SENIOR PRODUCT CONSULTANT 11/01/2018 Office visit Sean Marie MD 10/16/2018 Office visit Sean Marie MD 08/13/2018 Office visit Aurora Martin APR N 08/12/2018 Office visit Aurora Martin APR N 07/25/2018 [facility] Marcela Greco MD 07/20/2018 Office visit Sean Marie [...] Sean Marie MD 03/03/2017 Office visit Aurora Greeneong APR N 01/09/2017 Office visit Sean Marie [...] MD 01/16/2016 Office visit Jania Stanley SENIOR PRODUCT CONSULTANT 01/07/2016 Hospital Michelle Greco MD 12/31/2015 Office [...] MD 05/07/2015 Office visit Amaris Gentile SENIOR PRODUCT CONSULTANT 05/06/2015 Office visit Kiarra Ramos SENIOR PRODUCT CONSULTANT 04/01/2015 Office visit 04/01/2015 Office visit Sean Marie MD 04/01/2015 Hospital Michelle Greco MD 03/26/2015 Office visit Sean Marie MD 03/19/2015 Office visit Sean Marie MD 02/13/2015 Office visit Sean Marie MD 01/26/2015 Office visit Leena BILLINGSLEY RN 01/12/2015 Office visit Sean Marie MD 11/24/2014 Office visit Kiarra Ramos SENIOR PRODUCT CONSULTANT 10/22/2014 Office visit Miguel A Munoz APR N 08/22/2014 Office visit Sean Marie MD 08/01/2014 Office visit Sean Marie MD 06/09/2014 Office visit Kiarra Ramos SENIOR PRODUCT CONSULTANT 03/14/2014 Office visit Leena BILLINGSLEY RN 02/27/2014 Office visit Leena BILLINGSLEY RN 12/02/2013 Office visit Sean Marie MD 11/25/2013 Office visit Sean Marie MD 11/14/2013 Office visit Kiarra Richard SENIOR PRODUCT CONSULTANT 08/21/2013 Office visit Leena Haddad AP RN 08/09/2013 Office visit Kiarra Richard SENIOR PRODUCT CONSULTANT 06/26/2013 [facility] Michelle Greco MD 06/26/2013 Office visit Sean Marie MD 06/21/2013 Office visit Kiarra Richard SENIOR PRODUCT CONSULTANT 05/31/2013 Office visit Leena Haddad AP RN 05/10/2013 Office visit Leena BILLINGSLEY RN 05/03/2013 Office visit Leena BILLINGSLEY RN 03/27/2013 Office visit Kiarra Ramos SENIOR PRODUCT CONSULTANT 03/05/2013 Office visit Kiarra Ramos SENIOR PRODUCT CONSULTANT 02/27/2013 Office visit Kiarra Richard SENIOR PRODUCT CONSULTANT 01/08/2013 Office visit Sean Marie MD 10/30/2012 Office visit Sean Marie MD 04/26/2012 Nurse visit Maria Antonia Barakat SENIOR PRODUCT CONSULTANT 02/07/2012 Office visit Sean Marie MD 02/07/2012 [facility] Michelle Greco MD 12/13/2011 Office visit Sean Marie MD 11/08/2011 Office visit Sean Marie MD 10/24/2011 Office visit Sean Marie MD 08/05/2011 Office visit Sean Marie MD 07/12/2011 Office visit Kiarra Ramos SENIOR PRODUCT CONSULTANT 05/11/2011 Office visit Sean Marie MD [...]
--- OUTSIDE RECORDS SUMMARY | 2019-10-01 11:53 | XMS REPORT | Continuity of Care Document ---
Author Organization Unknown Address Unknown Phone Unavailable Allergies Active Description Code Type Severity Reaction Onset Reported/Identified Relationship to Patient Clinical Status Yes No Allergy Information Available [id number] Drug Allergy Unknown N/A 017 Yes acetaminophen [id number] Yury g Allergy Unknown N/A 07/18/2018 Yes albuterol [id number] Drug Allergy Unknown tachycardia 07/18/2018 Yes estrogens, conjugated [id number] Drug Allergy Unknown N/A 07/18/2018 Yes oxycodone [id number] Drug Allergy Unknown N/A 07/18/2018 Yes pregabalin [id number] Drug Allerg y Unknown N/A 07/18/2018 Yes acetaminophen [id number] Yury g Allergy Mild ITCHING 08/27/2018 Yes oxycodone [id number] Drug Allergy Mild ITCHING 08/27/2018 Yes albuterol [id number] Drug Allergy Severe tachycardia 01/23/2019 Yes estrogens, conjugated [id number] Drug Allergy Severe PE 01/23/2019 Yes pregabalin [id number] Drug Allerg y Moderate VISION PROBLEMS 01/23/2019 Yes oxycodone [id number] Drug Allergy Mild ITCHING, Pt dede 01/23/2019 Yes acetaminophen [id number] Yury g Allergy Unknown makes skin craw 09/02/2019 Yes oxycodone [id number] Drug Allergy Unknown makes skin craw 09/02/2019 Medications Medication Packaging Start Date St op Date Route Dosage Sig XOPENEX Vial 04/03/20 18 1.25 mg/3 mL SAVELLA Dose Pack 04/03/2018 04/30/2018 12.5 mg (5)-25 mg(8)-50 mg( 42) CETIRIZINE HCL Tablet 04/03/2018 10 mg ALPRAZOLAM Tablet 04/03/2018 0.25 mg TIZANIDINE HCL Tablet 04/03/2018 4 mg SAVELLA Unspecified 04/30/2018 06/26/2018 12.5 mg (5)-25 mg(8)-50 mg( 42) SAVELLA Tablet 018 06/26/2018 50 mg SAVELLA Tablet 018 01/14/2019 100 mg GABAPENTIN Capsule 08/06/2018 08/27/2018 300 mg GABAPENTIN Tablet 08/27/2018 12/03/2018 800 mg GABAPENTIN Tablet 12/03/2018 01/28/2019 800 mg SAVELLA Tablet 019 02/26/2019 100 mg GABAPENTIN Tablet 01/28/2019 03/22/2019 800 mg SAVELLA Tablet 019 03/22/2019 100 mg SAVELLA Tablet 019 04/26/2019 100 mg GABAPENTIN Tablet 03/22/2019 05/13/2019 800 mg SAVELLA Tablet 019 05/27/2019 100 mg GABAPENTIN Tablet 05/13/2019 06/14/2019 800 mg SAVELLA Tablet 019 06/14/2019 100 mg SAVELLA Dose Pack 06/14/2019 12.5 mg (5)-25 mg(8)-50 mg(42) HYDROXYCHLOROQUINE SULFATE T ablet 06/14/2019 200 mg GABAPENTIN Tablet 06/14/2019 800 mg Problems Date Dx Coded Attending [...] LIVER, NOT ELSEWHERE C 06/30/2017 [facility] Ot R16.2 HEPATOMEGALY WITH SPLENOMEGALY, NOT ELSE 06/30/2017 AUDREY AYOUB APRN Ot Z86.11 PERSONAL HISTORY OF TUBERCULOSIS 07/12/2017 WEN POOL DO Ot E04. 1 NONTOXIC SINGLE THYROID NODULE 07/12/2017 WEN POOL DO M Ot I26. 99 OTHER PULMONARY EMBOLISM WITHOUT ACUTE C 07/12/2017 WEN POOL DO M Ot K43. 9 VENTRAL HERNIA WITHOUT OBSTRUCTION OR GA 07/12/2017 WEN POOL DO M Ot K76. 0 FATTY (CHANGE OF) LIVER, NOT ELSEWHERE C 07/12/2017 WEN POOL DO M Ot R22. 43 LOCALIZED SWELLING, MASS AND LUMP, LOWER 07/12/2017 AUDREY AYOUB APRN Ot J44.9 CHRONIC OBSTRUCTIVE PULMONARY DISEASE, U 10/19/2017 AUDREY AYOUB APRN Ot G47.30 SLEEP APNEA, UNSPECIFIED 10/19/2017 AUDREY AYOUB APRN Ot J42 UNSPECIFIED CHRONIC BRONCHITIS 10/19/2017 AUDREY AYOUB APRN Ot J44.9 CHRONIC OBSTRUCTIVE PULMONARY DISEASE, U 10/19/2017 [facility] Ot J45.909 UNSPECIFIED ASTHMA, UNCOMPLICATED 10/19/2017 AUDREY AYOUB APRN Ot K76.0 FATTY (CHANGE OF) LIVER, NOT ELSEWHERE C 10/19/2017 AUDREY AYOUB APRN Ot R16.2 HEPATOMEGALY WITH SPLENOMEGALY, NOT ELSE 10/19/2017 AUDREY AYOUB APRN Ot Z86.11 PERSONAL HISTORY OF TUBERCULOSIS 10/19/2017 WEN POOL DO Ot E04. 1 NONTOXIC SINGLE THYROID NODULE 10/19/2017 WEN POOL DO M Ot I26. 99 OTHER PULMONARY EMBOLISM WITHOUT ACUTE C 10/19/2017 WEN POOL DO M Ot K43. 9 VENTRAL HERNIA WITHOUT OBSTRUCTION OR GA 10/19/2017 WEN POOL DO Ot K76. 0 FATTY (CHANGE OF) LIVER, NOT ELSEWHERE C 10/19/2017 CORINE MEDINA WEN Magaly Ot R22. 43 LOCALIZED SWELLING, MASS AND LUMP, LOWER 10/19/2017 [facility] Ot J44.9 CHRONIC OBSTRUCTIVE PULMONARY DISEASE, U 10/19/2017 [facility] Ot E07.9 DISORDER OF THYROID, UNSPECIFIED 10/19/2017 [facility]IC[facility] Ot F41.9 ANXIETY DISORDER, UNSPECIFIED 10/19/2017 [facility]IC[facility] Ot G47.30 SLEEP APNEA, UNSPECIFIED 10/19/2017 [facility] Ot J44.9 CHRONIC OBSTRUCTIVE PULMONARY DISEASE, U 10/19/2017 [facility] Ot J45.909 UNSPECIFIED ASTHMA, UNCOMPLICATED 10/19/2017 [facility] Ot J98.4 OTHER DISORDERS OF LUNG 10/19/2017 [facility] Ot R09.02 HYPOXEMIA 10/19/2017 [facility] Ot R94.2 ABNORMAL RESULTS OF PULMONARY FUNCTION S 10/20/2017 [facility] Ot I26.99 OTHER PULMONARY EMBOLISM WITHOUT ACUTE C 10/20/2017 [facility] Ot J44.9 CHRONIC OBSTRUCTIVE PULMONARY DISEASE, U 10/20/2017 [facility] Ot J98.4 OTHER DISORDERS OF LUNG 10/20/2017 [facility]IC[facility] Ot R09.02 HYPOXEMIA 10/25/2017 [facility]IC[facility] Ot E07.9 DISORDER OF THYROID, UNSPECIFIED 10/25/2017 [facility]IC[facility] Ot F41.9 ANXIETY DISORDER, UNSPECIFIED 10/25/2017 [facility]IC[facility] Ot G47.30 SLEEP APNEA, UNSPECIFIED 10/25/2017 [facility]IC[facility] Ot J44.9 CHRONIC OBSTRUCTIVE PULMONARY DISEASE, U 10/25/2017 [facility]IC[facility] Ot J45.909 UNSPECIFIED ASTHMA, UNCOMPLICATED 10/25/2017 [facility]IC[facility] Ot J98.4 OTHER DISORDERS OF LUNG 10/25/2017 [facility] Ot R09.02 HYPOXEMIA 10/25/2017 [facility]IC[facility] Ot R94.2 ABNORMAL RESULTS OF PULMONARY FUNCTION S 11/02/2017 [facility] Ot I26.99 OTHER PULMONARY EMBOLISM WITHOUT ACUTE C 11/02/2017 [facility]IC[facility] Ot J44.9 CHRONIC OBSTRUCTIVE PULMONARY DISEASE, U 11/02/2017 [facility]HA [facility] Ot J98.4 OTHER DISORDERS OF LUNG 11/02/2017 [facility] Ot R09.02 HYPOXEMIA 11/23/2017 MEGAIESHA MAGANAINE [facility] Ot I26.99 OTHER PULMONARY EMBOLISM WITHOUT ACUTE C 11/23/2017 [facility] Ot J44.9 CHRONIC OBSTRUCTIVE PULMONARY DISEASE, U 11/23/2017 MEGAIESHA MAG[facility]INE [facility] Ot J98.4 OTHER DISORDERS OF LUNG 11/23/2017 MEGAIESHA [facility]INE [facility] Ot R09.02 HYPOXEMIA 11/23/2017 [facility] Ot E07.9 DISORDER OF THYROID, UNSPECIFIED 11/23/2017 [facility] Ot F41.9 ANXIETY DISORDER, UNSPECIFIED 11/23/2017 [facility]IC[facility] Ot G47.30 SLEEP APNEA, UNSPECIFIED 11/23/2017 [facility]IC[facility] Ot J44.9 CHRONIC OBSTRUCTIVE PULMONARY DISEASE, U 11/23/2017 [facility]IC[facility] Ot J45.909 UNSPECIFIED ASTHMA, UNCOMPLICATED 11/23/2017 [facility] Ot J98.4 OTHER DISORDERS OF LUNG 11/23/2017 [facility] Ot R09.02 HYPOXEMIA 11/23/2017 [facility]IC[facility] Ot R94.2 ABNORMAL RESULTS OF PULMONARY FUNCTION S 11/23/2017 [facility] Ot I26.99 OTHER PULMONARY EMBOLISM WITHOUT ACUTE C 11/23/2017 [facility]IC[facility] Ot J44.9 CHRONIC OBSTRUCTIVE PULMONARY DISEASE, U 11/23/2017 [facility] Ot J98.4 OTHER DISORDERS OF LUNG 11/23/2017 [facility] Ot R09.02 HYPOXEMIA 12/03/2017 [facility] Ot E07.9 DISORDER OF THYROID, UNSPECIFIED 12/03/2017 [facility] Ot F41.9 ANXIETY DISORDER, UNSPECIFIED 12/03/2017 MEGAIESHA MAGANAINE E [facility] SECURITY OFFICER Ot G47.30 SLEEP APNEA, UNSPECIFIED 12/03/2017 MEGAIESHA MAGANAINE E [facility] SECURITY OFFICER Ot J44.9 CHRONIC OBSTRUCTIVE PULMONARY DISEASE, U 12/03/2017 MEGAIESHA MAGANAINE E [facility]URITY OFFICER Ot J45.909 UNSPECIFIED ASTHMA, UNCOMPLICATED 12/03/2017 MEGAIESHA MAGANAINE E [facility] OFFICER Ot J98.4 OTHER DISORDERS OF LUNG 12/03/2017 MEGAIESHA MAGANAINE E [facility]URITY OFFICER Ot R09.02 HYPOXEMIA 12/03/2017 MEGAIESHA [facility]INE [facility] Ot R94.2 ABNORMAL RESULTS OF PULMONARY FUNCTION S 12/05/2017 [facility] Ot E07.9 DISORDER OF THYROID, UNSPECIFIED 12/05/2017 MEGAIESHA [facility]INE [facility] Ot F41.9 ANXIETY DISORDER, UNSPECIFIED 12/05/2017 MEGAIESHA [facility]INE [facility] Ot G47.30 SLEEP APNEA, UNSPECIFIED 12/05/2017 [facility] Ot J44.9 CHRONIC OBSTRUCTIVE PULMONARY DISEASE, U 12/05/2017 [facility] Ot J45.909 UNSPECIFIED ASTHMA, UNCOMPLICATED 12/05/2017 MEGAIESHA [facility]INE [facility] Ot J98.4 OTHER DISORDERS OF LUNG 12/05/2017 [facility] Ot R09.02 HYPOXEMIA 12/05/2017 [facility] Ot R94.2 ABNORMAL RESULTS OF PULMONARY FUNCTION S 12/06/2017 [facility] Ot E07.9 DISORDER OF THYROID, UNSPECIFIED 12/06/2017 [facility] Ot F41.9 ANXIETY DISORDER, UNSPECIFIED 12/06/2017 MEGAIESHA MAG[facility]INE [facility] Ot G47.30 SLEEP APNEA, UNSPECIFIED 12/06/2017 [facility] Ot J44.9 CHRONIC OBSTRUCTIVE PULMONARY DISEASE, U 12/06/2017 MEGAIESHA MAGANAINE E [facility] OFFICER Ot J45.909 UNSPECIFIED ASTHMA, UNCOMPLICATED 12/06/2017 MEGAIESHA MAGANAINE E [facility]URITY OFFICER Ot J98.4 OTHER DISORDERS OF LUNG 12/06/2017 [facility]ESHA [facility]BINE E [facility] SECURITY OFFICER Ot R09.02 HYPOXEMIA 12/06/2017 MEGA, [facility]UD[facility]Y E [facility] SECURITY OFFICER Ot R94.2 ABNORMAL RESULTS OF PULMONARY FUNCTION S 12/06/2017 [facility] Ot E04.1 NONTOXIC SINGLE THYROID NODULE 12/06/2017 [facility] Ot F41.9 ANXIETY DISORDER, UNSPECIFIED 12/06/2017 [facility] Ot I26.99 OTHER PULMONARY EMBOLISM WITHOUT ACUTE C 12/06/2017 [facility]IC[facility] Ot J44.9 CHRONIC OBSTRUCTIVE PULMONARY DISEASE, U 12/06/2017 [facility] Ot J98.4 OTHER DISORDERS OF LUNG 12/08/2017 [facility] Ot E07.9 DISORDER OF THYROID, UNSPECIFIED 12/08/2017 [facility] Ot F41.9 ANXIETY DISORDER, UNSPECIFIED 12/08/2017 [facility]INE E [facility] OFFICER Ot G47.30 SLEEP APNEA, UNSPECIFIED 12/08/2017 [facility] Ot J44.9 CHRONIC OBSTRUCTIVE PULMONARY DISEASE, U 12/08/2017 [facility] Ot J45.909 UNSPECIFIED ASTHMA, UNCOMPLICATED 12/08/2017 [facility] Ot J98.4 OTHER DISORDERS OF LUNG 12/08/2017 [facility] Ot R09.02 HYPOXEMIA 12/08/2017 [facility] Ot R94.2 ABNORMAL RESULTS OF PULMONARY FUNCTION S 12/09/2017 [facility] Ot E07.9 DISORDER OF THYROID, UNSPECIFIED 12/09/2017 [facility]IC[facility] Ot F41.9 ANXIETY DISORDER, UNSPECIFIED 12/09/2017 [facility]BINE E [facility]URITY OFFICER Ot G47.30 SLEEP APNEA, UNSPECIFIED 12/09/2017 [facility] Ot J44.9 CHRONIC OBSTRUCTIVE PULMONARY DISEASE, U 12/09/2017 [facility]INE E [facility] OFFICER Ot J45.909 UNSPECIFIED ASTHMA, UNCOMPLICATED 12/09/2017 [facility]HA [facility]INE E [facility] OFFICER Ot J98.4 OTHER DISORDERS OF LUNG 12/09/2017 [facility]INE E [facility] OFFICER Ot R09.02 HYPOXEMIA 12/09/2017 [facility]INE E [facility] OFFICER Ot R94.2 ABNORMAL RESULTS OF PULMONARY FUNCTION S 12/11/2017 [facility]IC[facility] Ot E04.1 NONTOXIC SINGLE THYROID NODULE 12/11/2017 [facility]IC[facility] Ot F41.9 ANXIETY DISORDER, UNSPECIFIED 12/11/2017 [facility] OFFIC[facility] Ot I26.99 OTHER PULMONARY EMBOLISM WITHOUT ACUTE C 12/11/2017 [facility] OFFIC[facility] Ot J44.9 CHRONIC OBSTRUCTIVE PULMONARY DISEASE, U 12/11/2017 [facility]IC[facility] Ot J98.4 OTHER DISORDERS OF LUNG 12/11/2017 [facility]IC[facility] Ot I26.99 OTHER PULMONARY EMBOLISM WITHOUT ACUTE C 12/11/2017 [facility]IC[facility] Ot J44.9 CHRONIC OBSTRUCTIVE PULMONARY DISEASE, U 12/11/2017 [facility] Ot J98.4 OTHER DISORDERS OF LUNG 12/11/2017 [facility]IC[facility] Ot R09.02 HYPOXEMIA 12/11/2017 [facility]IC[facility] Ot G47.30 SLEEP APNEA, UNSPECIFIED 12/11/2017 [facility]IC[facility] Ot J42 UNSPECIFIED CHRONIC BRONCHITIS 12/11/2017 [facility]IC[facility] Ot J44.9 CHRONIC OBSTRUCTIVE PULMONARY DISEASE, U 12/11/2017 [facility]IC[facility] Ot J45.909 UNSPECIFIED ASTHMA, UNCOMPLICATED 12/11/2017 [facility]IC[facility] Ot K76.0 FATTY (CHANGE OF) LIVER, NOT ELSEWHERE C 12/11/2017 [facility]IC[facility] Ot R16.2 HEPATOMEGALY WITH SPLENOMEGALY, NOT ELSE 12/11/2017 [facility]IC[facility] Ot Z86.11 PERSONAL HISTORY OF TUBERCULOSIS 12/11/2017 WEN POOL DO Ot E04. 1 NONTOXIC SINGLE THYROID NODULE 12/11/2017 WNE POOL DO Ot I26. 99 OTHER PULMONARY EMBOLISM WITHOUT ACUTE C 12/11/2017 WEN POOL DO Ot K43. 9 VENTRAL HERNIA WITHOUT OBSTRUCTION OR GA 12/11/2017 WEN POOL DO Ot K76. 0 FATTY (CHANGE OF) LIVER, NOT ELSEWHERE C 12/11/2017 WEN POOL DO Ot R22. 43 LOCALIZED SWELLING, MASS AND LUMP, LOWER 12/11/2017 [facility] Ot J44.9 CHRONIC OBSTRUCTIVE PULMONARY DISEASE, U 12/11/2017 [facility] Ot E04.1 NONTOXIC SINGLE THYROID NODULE 12/11/2017 [facility]IC[facility] Ot F41.9 ANXIETY DISORDER, UNSPECIFIED 12/11/2017 [facility]BINE E [facility] OFFICER Ot I26.99 OTHER PULMONARY EMBOLISM WITHOUT ACUTE C 12/11/2017 [facility]IC[facility] Ot J44.9 CHRONIC OBSTRUCTIVE PULMONARY DISEASE, U 12/11/2017 [facility] Ot J98.4 OTHER DISORDERS OF LUNG 12/11/2017 [facility]IC[facility] Ot I26.99 OTHER PULMONARY EMBOLISM WITHOUT ACUTE C 12/11/2017 [facility]IC[facility] Ot J44.9 CHRONIC OBSTRUCTIVE PULMONARY DISEASE, U 12/11/2017 [facility] Ot J98.4 OTHER DISORDERS OF LUNG 12/11/2017 [facility]IC[facility] Ot R09.02 HYPOXEMIA 12/11/2017 [facility]IC[facility] Ot E07.9 DISORDER OF THYROID, UNSPECIFIED 12/11/2017 [facility]IC[facility] Ot F41.9 ANXIETY DISORDER, UNSPECIFIED 12/11/2017 [facility]IC[facility] Ot G47.30 SLEEP APNEA, UNSPECIFIED 12/11/2017 [facility] Ot J44.9 CHRONIC OBSTRUCTIVE PULMONARY DISEASE, U 12/11/2017 [facility] Ot J45.909 UNSPECIFIED ASTHMA, UNCOMPLICATED 12/11/2017 [facility]IC[facility] Ot J98.4 OTHER DISORDERS OF LUNG 12/11/2017 [facility] Ot R09.02 HYPOXEMIA 12/11/2017 [facility] Ot R94.2 ABNORMAL RESULTS OF PULMONARY FUNCTION S 12/13/2017 [facility]IC[facility] Ot J42 UNSPECIFIED CHRONIC BRONCHITIS 12/13/2017 [facility] Ot J45.909 UNSPECIFIED ASTHMA, UNCOMPLICATED 12/13/2017 [facility] Ot J98.4 OTHER DISORDERS OF LUNG 12/13/2017 [facility] Ot R09.02 HYPOXEMIA 12/13/2017 MEGA, [facility] E [facility] OFFICER Ot R94.2 ABNORMAL RESULTS OF PULMONARY FUNCTION S 12/19/2017 [facility] Ot J42 UNSPECIFIED CHRONIC BRONCHITIS 12/19/2017 [facility]HA [facility]INE E [facility] OFFICER Ot J45.909 UNSPECIFIED ASTHMA, UNCOMPLICATED 12/19/2017 [facility]INE E [facility] OFFICER Ot J98.4 OTHER DISORDERS OF LUNG 12/20/2017 [facility] Ot E04.1 NONTOXIC SINGLE THYROID NODULE 12/20/2017 [facility] Ot F41.9 ANXIETY DISORDER, UNSPECIFIED 12/20/2017 [facility] Ot I26.99 OTHER PULMONARY EMBOLISM WITHOUT ACUTE C 12/20/2017 [facility]IC[facility] Ot J44.9 CHRONIC OBSTRUCTIVE PULMONARY DISEASE, U 12/20/2017 [facility] Ot J98.4 OTHER DISORDERS OF LUNG 12/27/2017 [facility]IC[facility] Ot J42 UNSPECIFIED CHRONIC BRONCHITIS 12/27/2017 [facility]IC[facility] Ot J45.909 UNSPECIFIED ASTHMA, UNCOMPLICATED 12/27/2017 [facility]IC[facility] Ot J98.4 OTHER DISORDERS OF LUNG 12/27/2017 [facility]IC[facility] Ot R09.02 HYPOXEMIA 12/27/2017 [facility]IC[facility] Ot R94.2 ABNORMAL RESULTS OF PULMONARY FUNCTION S 01/03/2018 [facility]IC[facility] Ot J42 UNSPECIFIED CHRONIC BRONCHITIS 01/03/2018 [facility]IC[facility] Ot J45.909 UNSPECIFIED ASTHMA, UNCOMPLICATED 01/03/2018 [facility]IC[facility] Ot J98.4 OTHER DISORDERS OF LUNG 03/07/2018 [facility]IC[facility] Ot E07.9 DISORDER OF THYROID, UNSPECIFIED 03/07/2018 [facility]IC[facility] Ot F41.9 ANXIETY DISORDER, UNSPECIFIED 03/07/2018 [facility]IC[facility] Ot G47.30 SLEEP APNEA, UNSPECIFIED 03/07/2018 [facility] Ot J44.9 CHRONIC OBSTRUCTIVE PULMONARY DISEASE, U 03/07/2018 [facility]IC[facility] Ot J45.909 UNSPECIFIED ASTHMA, UNCOMPLICATED 03/07/2018 MEGA, [facility] E [facility]URITY OFFICER Ot J98.4 OTHER DISORDERS OF LUNG 03/07/2018 [facility] Ot R09.02 HYPOXEMIA 03/07/2018 [facility]INE E [facility]URITY OFFICER Ot R94.2 ABNORMAL RESULTS OF PULMONARY FUNCTION S 03/08/2018 [facility]IC[facility] Ot E07.9 DISORDER OF THYROID, UNSPECIFIED 03/08/2018 [facility]INE E [facility] OFFICER Ot F41.9 ANXIETY DISORDER, UNSPECIFIED 03/08/2018 [facility] E [facility] OFFICER Ot G47.30 SLEEP APNEA, UNSPECIFIED 03/08/2018 [facility] E [facility] OFFICER Ot J44.9 CHRONIC OBSTRUCTIVE PULMONARY DISEASE, U 03/08/2018 [facility]IC[facility] Ot J45.909 UNSPECIFIED ASTHMA, UNCOMPLICATED 03/08/2018 [facility]IC[facility] Ot J98.4 OTHER DISORDERS OF LUNG 03/08/2018 [facility]IC[facility] Ot R09.02 HYPOXEMIA 03/08/2018 [facility] Ot R94.2 ABNORMAL RESULTS OF PULMONARY FUNCTION S 04/03/2018 [place]ny[place] M79.7 Fibromyalgia 04/10/2018 JhonnyCarolina W M79.7 Fibromyalgia 07/17/2018 [facility] Ot E07.9 DISORDER OF THYROID, UNSPECIFIED 07/17/2018 [facility]IC[facility] Ot F41.9 ANXIETY DISORDER, UNSPECIFIED 07/17/2018 [facility]IC[facility] Ot G47.30 SLEEP APNEA, UNSPECIFIED 07/17/2018 [facility]IC[facility] Ot J44.9 CHRONIC OBSTRUCTIVE PULMONARY DISEASE, U 07/17/2018 [facility] Ot J45.909 UNSPECIFIED ASTHMA, UNCOMPLICATED 07/17/2018 [facility]INE E [facility]ICER Ot J98.4 OTHER DISORDERS OF LUNG 07/17/2018 [facility] Ot R09.02 HYPOXEMIA 07/17/2018 [facility]IC[facility] Ot R94.2 ABNORMAL RESULTS OF PULMONARY FUNCTION S 07/17/2018 [facility]IC[facility] Ot E07.9 DISORDER OF THYROID, UNSPECIFIED 07/17/2018 [facility] OFFIC[facility] Ot F41.9 ANXIETY DISORDER, UNSPECIFIED 07/17/2018 AUDREY A[facility] APRN Ot G47.30 SLEEP APNEA, UNSPECIFIED 07/17/2018 [facility]Y [facility] APRN Ot J44.9 CHRONIC OBSTRUCTIVE PULMONARY DISEASE, U 07/17/2018 AUDREY [facility] APRN Ot J45.909 UNSPECIFIED ASTHMA, UNCOMPLICATED 07/17/2018 [facility]IC[facility] Ot J98.4 OTHER DISORDERS OF LUNG 07/17/2018 AUD[facility]Y A[facility] APRN Ot R09.02 HYPOXEMIA 07/17/2018 [facility]IC[facility] Ot R94.2 ABNORMAL RESULTS OF PULMONARY FUNCTION S 07/17/2018 BRYAN GRULLON, MATILDE Ot Z01.81 8 ENCOUNTER FOR OTHER PREPROCEDURAL EXAMIN 07/18/2018 [facility] APRN Ot G47.30 SLEEP APNEA, UNSPECIFIED 07/18/2018 [facility]UD[facility]Y [facility] APRN Ot J42 UNSPECIFIED CHRONIC BRONCHITIS 07/18/2018 AUDREY A[facility] APRN Ot J44.9 CHRONIC OBSTRUCTIVE PULMONARY DISEASE, U 07/18/2018 AUDREY A[facility] APRN Ot J45.909 UNSPECIFIED ASTHMA, UNCOMPLICATED 07/18/2018 AUDREY A[facility] APRN Ot K76.0 FATTY (CHANGE OF) LIVER, NOT ELSEWHERE C 07/18/2018 AUDREY A[facility] APRN Ot R16.2 HEPATOMEGALY WITH SPLENOMEGALY, NOT ELSE 07/18/2018 [facility]IC[facility] Ot Z86.11 PERSONAL HISTORY OF TUBERCULOSIS 07/18/2018 WEN POOL DO Ot E04. 1 NONTOXIC SINGLE THYROID NODULE 07/18/2018 WEN POOL DO Ot I26. 99 OTHER PULMONARY EMBOLISM WITHOUT ACUTE C 07/18/2018 WEN POOL DO Ot K43. 9 VENTRAL HERNIA WITHOUT OBSTRUCTION OR GA 07/18/2018 WEN POOL DO Ot K76. 0 FATTY (CHANGE OF) LIVER, NOT ELSEWHERE C 07/18/2018 WEN POOL DO Ot R22. 43 LOCALIZED SWELLING, MASS AND LUMP, LOWER 07/18/2018 [facility]IC[facility] Ot J44.9 CHRONIC OBSTRUCTIVE PULMONARY DISEASE, U 07/18/2018 AUDREY AYOUB APRN Ot E04.1 NONTOXIC SINGLE THYROID NODULE 07/18/2018 MEGA[facility] SECURITY OFFICER Ot F41.9 ANXIETY DISORDER, UNSPECIFIED 07/18/2018 MEGA, [facility] SECURITY OFFICER Ot I26.99 OTHER PULMONARY EMBOLISM WITHOUT ACUTE C 07/18/2018 [facility]ITY OFFICER Ot J44.9 CHRONIC OBSTRUCTIVE PULMONARY DISEASE, U 07/18/2018 [facility] OFFICER Ot J98.4 OTHER DISORDERS OF LUNG 07/18/2018 [facility]IC[facility] Ot I26.99 OTHER PULMONARY EMBOLISM WITHOUT ACUTE C 07/18/2018 [facility]IC[facility] Ot J44.9 CHRONIC OBSTRUCTIVE PULMONARY DISEASE, U 07/18/2018 [facility]GA, [facility] SECURITY OFFICER Ot J98.4 OTHER DISORDERS OF LUNG 07/18/2018 [facility] SECURITY OFFICER Ot R09.02 HYPOXEMIA 07/18/2018 [facility] OFFICER Ot J42 UNSPECIFIED CHRONIC BRONCHITIS 07/18/2018 [facility] OFFICER Ot J45.909 UNSPECIFIED ASTHMA, UNCOMPLICATED 07/18/2018 [facility] SECURITY OFFICER Ot J98.4 OTHER DISORDERS OF LUNG 07/18/2018 [facility] SECURITY OFFICER Ot J42 UNSPECIFIED CHRONIC BRONCHITIS 07/18/2018 [facility], [facility] SECURITY OFFICER Ot J45.909 UNSPECIFIED ASTHMA, UNCOMPLICATED 07/18/2018 MEGA, [facility] SECURITY OFFICER Ot J98.4 OTHER DISORDERS OF LUNG 07/18/2018 [facility] OFFICER Ot R09.02 HYPOXEMIA 07/18/2018 [facility]ITY OFFICER Ot R94.2 ABNORMAL RESULTS OF PULMONARY FUNCTION S 07/18/2018 [facility] OFFICER Ot E07.9 DISORDER OF THYROID, UNSPECIFIED 07/18/2018 [facility] OFFICER Ot F41.9 ANXIETY DISORDER, UNSPECIFIED 07/18/2018 [facility]URITY OFFICER Ot G47.30 SLEEP APNEA, UNSPECIFIED 07/18/2018 [facility] SECURITY OFFICER Ot J44.9 CHRONIC OBSTRUCTIVE PULMONARY DISEASE, U 07/18/2018 [facility]URITY OFFICER Ot J45.909 UNSPECIFIED ASTHMA, UNCOMPLICATED 07/18/2018 [facility]URITY OFFICER Ot J98.4 OTHER DISORDERS OF LUNG 07/18/2018 [facility]UDREY A[facility] APRN Ot R09.02 HYPOXEMIA 07/18/2018 [facility] OFFIC[facility] Ot R94.2 ABNORMAL RESULTS OF PULMONARY FUNCTION S 07/18/2018 MATILDE ADAMS MD Ot G47.33 OBSTRUCTIVE SLEEP APNEA (ADULT) (PEDIATR 07/18/2018 MATILDE ADAMS MD Ot J44.9 CHRONIC OBSTRUCTIVE PULMONARY DISEASE, U 07/18/2018 MAITLDE ADAMS MD Ot K21.0 GASTRO-ESOPHAGEAL REFLUX DISEASE WITH ES 07/18/2018 MATILDE ADAMS MD Ot K29.70 GASTRITIS, UNSPECIFIED, WITHOUT BLEEDING 07/18/2018 MATILDE ADAMS MD Ot K44.9 DIAPHRAGMATIC HERNIA WITHOUT OBSTRUCTION 07/18/2018 MATILDE ADAMS MD Ot Z79.89 9 OTHER NEWS AGENT (CURRENT) DRUG THERAPY 07/23/2018 MATILDE ADAMS MD Ot G47.33 OBSTRUCTIVE SLEEP APNEA (ADULT) (PEDIATR 07/23/2018 MATILDE ADAMS MD, Ot J44.9 CHRONIC OBSTRUCTIVE PULMONARY DISEASE, U 07/23/2018 MATILDE ADAMS MD Ot K21.0 GASTRO-ESOPHAGEAL REFLUX DISEASE WITH ES 07/23/2018 MATILDE ADAMS MD Ot K29.70 GASTRITIS, UNSPECIFIED, WITHOUT BLEEDING 07/23/2018 MATILDE ADAMS MD Ot K44.9 DIAPHRAGMATIC HERNIA WITHOUT OBSTRUCTION 07/23/2018 MATILDE ADAMS MD Ot Z79.89 9 OTHER SHELTER (CURRENT) DRUG THERAPY 08/02/2018 AUDREY AYOUB APRN Ot G47.00 INSOMNIA, UNSPECIFIED 08/02/2018 [facility]REY AYOUB [facility] SECURITY OFFICER Ot G47.30 SLEEP APNEA, UNSPECIFIED 08/02/2018 [facility]UDREY AYOUB [facility] SECURITY OFFICER Ot J44.9 CHRONIC OBSTRUCTIVE PULMONARY DISEASE, U 08/02/2018 AUDREY AYOUB APRN Ot Z01.818 ENCOUNTER FOR OTHER PREPROCEDURAL EXAMIN 08/06/2018 Carolina Barry M79.7 Fibromyalgia 08/13/2018 Carolina Barry M79.7 Fibromyalgia 08/17/2018 MATILDE ADAMS MD Ot K21.9 GASTRO-ESOPHAGEAL REFLUX DISEASE WITHOUT 08/17/2018 MATILDE ADAMS MD Ot Z01.81 8 ENCOUNTER FOR OTHER PREPROCEDURAL EXAMIN 08/27/2018 [facility]REY AYOUB [facility] SECURITY OFFICER Ot G47.30 SLEEP APNEA, UNSPECIFIED 08/27/2018 AUDREY AYOUB APRN Ot J42 UNSPECIFIED CHRONIC BRONCHITIS 08/27/2018 [facility]UDREY AYOUB [facility] SECURITY OFFICER Ot J44.9 CHRONIC OBSTRUCTIVE PULMONARY DISEASE, U 08/27/2018 [facility]UD[facility]Y AYOUB [facility] SECURITY OFFICER Ot J45.909 UNSPECIFIED ASTHMA, UNCOMPLICATED 08/27/2018 [facility]UDREY AYOUB [facility] SECURITY OFFICER Ot K76.0 FATTY (CHANGE OF) LIVER, NOT ELSEWHERE C 08/27/2018 AUDREY AYOUB [facility] SECURITY OFFICER Ot R16.2 HEPATOMEGALY WITH SPLENOMEGALY, NOT ELSE 08/27/2018 AUDREY AYOUB APRN Ot Z86.11 PERSONAL HISTORY OF TUBERCULOSIS 08/27/2018 WEN POOL DO Ot E04. 1 NONTOXIC SINGLE THYROID NODULE 08/27/2018 WEN POOL DO Ot I26. 99 OTHER PULMONARY EMBOLISM WITHOUT ACUTE C 08/27/2018 WEN POOL DO Ot K43. 9 VENTRAL HERNIA WITHOUT OBSTRUCTION OR GA 08/27/2018 WEN POOL DO Ot K76. 0 FATTY (CHANGE OF) LIVER, NOT ELSEWHERE C 08/27/2018 WEN POOL DO Ot R22. 43 LOCALIZED SWELLING, MASS AND LUMP, LOWER 08/27/2018 AUDREY AYOUB APRN Ot J44.9 CHRONIC OBSTRUCTIVE PULMONARY DISEASE, U 08/27/2018 AUDREY AYOUB APRN Ot E04.1 NONTOXIC SINGLE THYROID NODULE 08/27/2018 [facility]REY AYOUB [facility] SECURITY OFFICER Ot F41.9 ANXIETY DISORDER, UNSPECIFIED 08/27/2018 [facility]REY AYOUB [facility] SECURITY OFFICER Ot I26.99 OTHER PULMONARY EMBOLISM WITHOUT ACUTE C 08/27/2018 AUDREY AYOUB [facility] SECURITY OFFICER Ot J44.9 CHRONIC OBSTRUCTIVE PULMONARY DISEASE, U 08/27/2018 [facility]Y A[facility]B [facility] SECURITY OFFICER Ot J98.4 OTHER DISORDERS OF LUNG 08/27/2018 [facility]UDREY AYOUB [facility] SECURITY OFFICER Ot I26.99 OTHER PULMONARY EMBOLISM WITHOUT ACUTE C 08/27/2018 [facility]Y AYOUB [facility] SECURITY OFFICER Ot J44.9 CHRONIC OBSTRUCTIVE PULMONARY DISEASE, U 08/27/2018 [facility]B [facility] SECURITY OFFICER Ot J98.4 OTHER DISORDERS OF LUNG 08/27/2018 [facility]Y [facility]YOUB [facility] SECURITY OFFICER Ot R09.02 HYPOXEMIA 08/27/2018 [facility]Y [facility]B [facility] SECURITY OFFICER Ot J42 UNSPECIFIED CHRONIC BRONCHITIS 08/27/2018 [facility]Y AYOUB [facility] SECURITY OFFICER Ot J45.909 UNSPECIFIED ASTHMA, UNCOMPLICATED 08/27/2018 IESHA AYOUBINE [facility] SECURITY OFFICER Ot J98.4 OTHER DISORDERS OF LUNG 08/27/2018 [facility]UDREY AYOUB [facility] SECURITY OFFICER Ot J42 UNSPECIFIED CHRONIC BRONCHITIS 08/27/2018 [facility]UD[facility]Y AYOUB [facility] SECURITY OFFICER Ot J45.909 UNSPECIFIED ASTHMA, UNCOMPLICATED 08/27/2018 [facility]REY [facility]ITY OFFICER Ot J98.4 OTHER DISORDERS OF LUNG 08/27/2018 AUDREY AYOUB [facility] SECURITY OFFICER Ot R09.02 HYPOXEMIA 08/27/2018 [facility]Y AYOUB [facility] SECURITY OFFICER Ot R94.2 ABNORMAL RESULTS OF PULMONARY FUNCTION S 08/27/2018 [facility]UDREY AYOUB [facility] SECURITY OFFICER Ot E07.9 DISORDER OF THYROID, UNSPECIFIED 08/27/2018 [facility]UD[facility]Y AYOUB [facility] SECURITY OFFICER Ot F41.9 ANXIETY DISORDER, UNSPECIFIED 08/27/2018 AUDREY AYOUB [facility] SECURITY OFFICER Ot G47.30 SLEEP APNEA, UNSPECIFIED 08/27/2018 AUDREY AYOUB [facility] SECURITY OFFICER Ot J44.9 CHRONIC OBSTRUCTIVE PULMONARY DISEASE, U 08/27/2018 AUDREY AYOUB [facility] SECURITY OFFICER Ot J45.909 UNSPECIFIED ASTHMA, UNCOMPLICATED 08/27/2018 [facility]UD[facility]Y AYOUB [facility] SECURITY OFFICER Ot J98.4 OTHER DISORDERS OF LUNG 08/27/2018 [facility]UDREY AYOUB [facility] SECURITY OFFICER Ot R09.02 HYPOXEMIA 08/27/2018 [facility]Y [facility]B [facility] SECURITY OFFICER Ot R94.2 ABNORMAL RESULTS OF PULMONARY FUNCTION S 08/27/2018 MATILDE ADAMS MD Ot K21.9 GASTRO-ESOPHAGEAL REFLUX DISEASE WITHOUT 08/27/2018 MATILDE ADAMS MD Ot Z01.81 8 ENCOUNTER FOR OTHER PREPROCEDURAL EXAMIN 08/27/2018 [facility]UDREY AYOUB [facility] SECURITY OFFICER Ot G47.00 INSOMNIA, UNSPECIFIED 08/27/2018 [facility]UDREY AYOUB [facility] SECURITY OFFICER Ot G47.30 SLEEP APNEA, UNSPECIFIED 08/27/2018 [facility]UD[facility]Y AYOUB [facility] SECURITY OFFICER Ot J44.9 CHRONIC OBSTRUCTIVE PULMONARY DISEASE, U 08/27/2018 AUDREY AYOUB APRN Ot Z01.818 ENCOUNTER FOR OTHER PREPROCEDURAL EXAMIN 08/27/2018 AUDREY AYOUB APRN Ot E07.9 DISORDER OF THYROID, UNSPECIFIED 08/27/2018 [facility]Y AYOUB [facility] SECURITY OFFICER Ot F41.9 ANXIETY DISORDER, UNSPECIFIED 08/27/2018 [facility]UD[facility]Y AYOUB [facility] SECURITY OFFICER Ot G47.30 SLEEP APNEA, UNSPECIFIED 08/27/2018 AUDREY AYOUB [facility] SECURITY OFFICER Ot J44.9 CHRONIC OBSTRUCTIVE PULMONARY DISEASE, U 08/27/2018 [facility]UD[facility]Y [facility]YOUB [facility] SECURITY OFFICER Ot J45.909 UNSPECIFIED ASTHMA, UNCOMPLICATED 08/27/2018 [facility]Y AYOUB [facility] SECURITY OFFICER Ot J98.4 OTHER DISORDERS OF LUNG 08/27/2018 AUDREY AYOUB APRN Ot R09.02 HYPOXEMIA 08/27/2018 AUDREY AYOUB APRN Ot R94.2 ABNORMAL RESULTS OF PULMONARY FUNCTION S 08/27/2018 MATILDE ADAMS MD, Ot E66.01 MORBID (SEVERE) OBESITY DUE TO EXCESS CA 08/27/2018 MATILDE ADAMS MD Ot Z01.81 2 ENCOUNTER FOR PREPROCEDURAL LABORATORY E 08/27/2018 MATILDE ADAMS MD, Ot Z11.2 ENCOUNTER FOR SCREENING FOR OTHER BACTER 08/27/2018 MATILDE ADAMS MD, Ot Z68.42 BODY MASS INDEX (BMI) 45.0-49.9, ADULT 08/31/2018 MATILDE ADAMS MD, Ot D32.9 BENIGN NEOPLASM OF MENINGES, UNSPECIFIED 08/31/2018 MATILDE ADAMS MD, Ot E03.9 HYPOTHYROIDISM, UNSPECIFIED 08/31/2018 MATILDE ADAMS MD Ot E66.01 MORBID (SEVERE) OBESITY DUE TO EXCESS CA 08/31/2018 MATILDE ADAMS MD Ot E78.00 PURE HYPERCHOLESTEROLEMIA, UNSPECIFIED 08/31/2018 MATILDE ADAMS MD, Ot F32.9 MAJOR DEPRESSIVE DISORDER, SINGLE EPISOD 08/31/2018 MATILDE ADAMS MD, Ot F41.9 ANXIETY DISORDER, UNSPECIFIED 08/31/2018 MATILDE ADAMS MD Ot G25.81 RESTLESS LEGS SYNDROME 08/31/2018 MATILDE ADAMS MD, Ot G47.00 INSOMNIA, UNSPECIFIED 08/31/2018 MATILDE ADAMS MD, Ot G47.33 OBSTRUCTIVE SLEEP APNEA (ADULT) (PEDIATR 08/31/2018 MATILDE ADAMS MD, Ot G62.9 POLYNEUROPATHY, UNSPECIFIED 08/31/2018 MATILDE ADAMS MD, Ot I10 ESSENTIAL (PRIMARY) HYPERTENSION 08/31/2018 MATILDE [...] OBSTRUCTIVE PULMONARY DISEASE, U 08/31/2018 AUDREY AYOUB [facility] SECURITY OFFICER Ot J45.909 UNSPECIFIED ASTHMA, UNCOMPLICATED 08/31/2018 [facility]UDREY AYOUB [facility] SECURITY OFFICER Ot K76.0 FATTY (CHANGE OF) LIVER, NOT ELSEWHERE C 08/31/2018 AUDREY AYOUB [facility] SECURITY OFFICER Ot R16.2 HEPATOMEGALY WITH SPLENOMEGALY, NOT ELSE 08/31/2018 [facility]UDREY AYOUB [facility] SECURITY OFFICER Ot Z86.11 PERSONAL HISTORY OF TUBERCULOSIS 08/31/2018 WEN POOL DO Ot E04. 1 NONTOXIC SINGLE THYROID NODULE 08/31/2018 RITU POOL DOSON M Ot I26. 99 OTHER PULMONARY EMBOLISM WITHOUT ACUTE C 08/31/2018 WEN POOL DO M Ot K43. 9 VENTRAL HERNIA WITHOUT OBSTRUCTION OR GA 08/31/2018 WEN POOL DO M Ot K76. 0 FATTY (CHANGE OF) LIVER, NOT ELSEWHERE C 08/31/2018 WEN POOL DO M Ot R22. 43 LOCALIZED SWELLING, MASS AND LUMP, LOWER 08/31/2018 [facility]UD[facility]Y AYOUB [facility] SECURITY OFFICER Ot J44.9 CHRONIC OBSTRUCTIVE PULMONARY DISEASE, U 08/31/2018 [facility]UD[facility]Y [facility]YOUB [facility] SECURITY OFFICER Ot E04.1 NONTOXIC SINGLE THYROID NODULE 08/31/2018 [facility]UD[facility]Y AYOUB [facility] SECURITY OFFICER Ot F41.9 ANXIETY DISORDER, UNSPECIFIED 08/31/2018 [facility]UD[facility]Y AYOUB [facility] SECURITY OFFICER Ot I26.99 OTHER PULMONARY EMBOLISM WITHOUT ACUTE C 08/31/2018 [facility]UD[facility]Y AYOUB [facility] SECURITY OFFICER Ot J44.9 CHRONIC OBSTRUCTIVE PULMONARY DISEASE, U 08/31/2018 [facility]UD[facility]Y [facility]B [facility] SECURITY OFFICER Ot J98.4 OTHER DISORDERS OF LUNG 08/31/2018 [facility]UD[facility]Y [facility]YOUB [facility] SECURITY OFFICER Ot I26.99 OTHER PULMONARY EMBOLISM WITHOUT ACUTE C 08/31/2018 [facility]UD[facility]Y [facility]B [facility] SECURITY OFFICER Ot J44.9 CHRONIC OBSTRUCTIVE PULMONARY DISEASE, U 08/31/2018 [facility]B [facility] SECURITY OFFICER Ot J98.4 OTHER DISORDERS OF LUNG 08/31/2018 [facility]UD[facility]Y [facility]B [facility] SECURITY OFFICER Ot R09.02 HYPOXEMIA 08/31/2018 [facility]Y [facility]B [facility] SECURITY OFFICER Ot J42 UNSPECIFIED CHRONIC BRONCHITIS 08/31/2018 [facility]UD[facility]Y [facility]B [facility] SECURITY OFFICER Ot J45.909 UNSPECIFIED ASTHMA, UNCOMPLICATED 08/31/2018 [facility]Y [facility]B [facility] SECURITY OFFICER Ot J98.4 OTHER DISORDERS OF LUNG 08/31/2018 [facility]Y AYOUB [facility] SECURITY OFFICER Ot J42 UNSPECIFIED CHRONIC BRONCHITIS 08/31/2018 IESHA AYOUBINE [facility] SEC[facility]ITY OFFICER Ot J45.909 UNSPECIFIED ASTHMA, UNCOMPLICATED 08/31/2018 IESHA AYOUBINE E [facility] SECURITY OFFICER Ot J98.4 OTHER DISORDERS OF LUNG 08/31/2018 AUDREY AYOUB [facility] SECURITY OFFICER Ot R09.02 HYPOXEMIA 08/31/2018 [facility]UD[facility]Y AYOUB [facility] SECURITY OFFICER Ot R94.2 ABNORMAL RESULTS OF PULMONARY FUNCTION S 08/31/2018 [facility]UDREY AYOUB [facility] SECURITY OFFICER Ot E07.9 DISORDER OF THYROID, UNSPECIFIED 08/31/2018 [facility]UD[facility]Y AYOUB [facility] SECURITY OFFICER Ot F41.9 ANXIETY DISORDER, UNSPECIFIED 08/31/2018 [facility]UDREY AYOUB [facility] SECURITY OFFICER Ot G47.30 SLEEP APNEA, UNSPECIFIED 08/31/2018 AUDREY AYOUB [facility] SECURITY OFFICER Ot J44.9 CHRONIC OBSTRUCTIVE PULMONARY DISEASE, U 08/31/2018 [facility]UD[facility]Y [facility]YOUB [facility] SECURITY OFFICER Ot J45.909 UNSPECIFIED ASTHMA, UNCOMPLICATED 08/31/2018 [facility]UD[facility]Y AYOUB [facility] SECURITY OFFICER Ot J98.4 OTHER DISORDERS OF LUNG 08/31/2018 AUDREY AYOUB [facility] SECURITY OFFICER Ot R09.02 HYPOXEMIA 08/31/2018 [facility]UD[facility]Y [facility]B [facility] SECURITY OFFICER Ot R94.2 ABNORMAL RESULTS OF PULMONARY FUNCTION S 08/31/2018 MATILDE ADAMS MD Ot K21.9 GASTRO-ESOPHAGEAL REFLUX DISEASE WITHOUT 08/31/2018 MATILDE ADAMS MD Ot Z01.81 8 ENCOUNTER FOR OTHER PREPROCEDURAL EXAMIN 08/31/2018 [facility]UDREY AYOUB [facility] SECURITY OFFICER Ot G47.00 INSOMNIA, UNSPECIFIED 08/31/2018 [facility]UDREY AYOUB [facility] SECURITY OFFICER Ot G47.30 SLEEP APNEA, UNSPECIFIED 08/31/2018 AUDREY AYOUB [facility] SECURITY OFFICER Ot J44.9 CHRONIC OBSTRUCTIVE PULMONARY DISEASE, U 08/31/2018 [facility]UDREY AYOUB [facility] SECURITY OFFICER Ot Z01.818 ENCOUNTER FOR OTHER PREPROCEDURAL EXAMIN 09/01/2018 AUDREY AYOUB [facility] SECURITY OFFICER Ot G47.30 SLEEP APNEA, UNSPECIFIED 09/01/2018 AUDREY AYOUB [facility] SECURITY OFFICER Ot J42 UNSPECIFIED CHRONIC BRONCHITIS 09/01/2018 [facility]OBU [facility] SECURITY OFFICER Ot J44.9 CHRONIC OBSTRUCTIVE PULMONARY DISEASE, U 09/01/2018 AUDREY AYOUB [facility] SECURITY OFFICER Ot J45.909 UNSPECIFIED ASTHMA, UNCOMPLICATED 09/01/2018 [facility]UD[facility]Y AYOUB [facility] SECURITY OFFICER Ot K76.0 FATTY (CHANGE OF) LIVER, NOT ELSEWHERE C 09/01/2018 [facility]UDREY AYOUB [facility] SECURITY OFFICER Ot R16.2 HEPATOMEGALY WITH SPLENOMEGALY, NOT ELSE 09/01/2018 [facility]UD[facility]Y AYOUB [facility] SECURITY OFFICER Ot Z86.11 PERSONAL HISTORY OF TUBERCULOSIS 09/01/2018 WEN POOL DO Ot E04. 1 NONTOXIC SINGLE THYROID NODULE 09/01/2018 WEN POOL DO Ot I26. 99 OTHER PULMONARY EMBOLISM WITHOUT ACUTE C 09/01/2018 WEN POOL DO Ot K43. 9 VENTRAL HERNIA WITHOUT OBSTRUCTION OR GA 09/01/2018 WEN POOL DO Ot K76. 0 FATTY (CHANGE OF) LIVER, NOT ELSEWHERE C 09/01/2018 WEN POOL DO Ot R22. 43 LOCALIZED SWELLING, MASS AND LUMP, LOWER 09/01/2018 [facility]UD[facility]Y [facility]B [facility] SECURITY OFFICER Ot J44.9 CHRONIC OBSTRUCTIVE PULMONARY DISEASE, U 09/01/2018 [facility]UD[facility]Y [facility]YOUB [facility] SECURITY OFFICER Ot E04.1 NONTOXIC SINGLE THYROID NODULE 09/01/2018 [facility]UDREY AYOUB [facility] SECURITY OFFICER Ot F41.9 ANXIETY DISORDER, UNSPECIFIED 09/01/2018 [facility]UD[facility]Y AYOUB [facility] SECURITY OFFICER Ot I26.99 OTHER PULMONARY EMBOLISM WITHOUT ACUTE C 09/01/2018 AUDREY AYOUB [facility] SECURITY OFFICER Ot J44.9 CHRONIC OBSTRUCTIVE PULMONARY DISEASE, U 09/01/2018 [facility]UD[facility]Y A[facility]B [facility] SECURITY OFFICER Ot J98.4 OTHER DISORDERS OF LUNG 09/01/2018 [facility]UDREY AYOUB [facility] SECURITY OFFICER Ot I26.99 OTHER PULMONARY EMBOLISM WITHOUT ACUTE C 09/01/2018 [facility]UD[facility]Y AYOUB [facility] SECURITY OFFICER Ot J44.9 CHRONIC OBSTRUCTIVE PULMONARY DISEASE, U 09/01/2018 [facility]UD[facility]Y A[facility]B [facility] SECURITY OFFICER Ot J98.4 OTHER DISORDERS OF LUNG 09/01/2018 [facility]UD[facility]Y [facility]B [facility] SECURITY OFFICER Ot R09.02 HYPOXEMIA 09/01/2018 [facility]UD[facility]Y [facility]B [facility] SECURITY OFFICER Ot J42 UNSPECIFIED CHRONIC BRONCHITIS 09/01/2018 [facility]UD[facility]Y [facility]YOUB [facility] SECURITY OFFICER Ot J45.909 UNSPECIFIED ASTHMA, UNCOMPLICATED 09/01/2018 MEGAIESHA MAGANAINE [facility] SECURITY OFFICER Ot J98.4 OTHER DISORDERS OF LUNG 09/01/2018 [facility] SECURITY OFFICER Ot J42 UNSPECIFIED CHRONIC BRONCHITIS 09/01/2018 [facility]Y [facility] SECURITY OFFICER Ot J45.909 UNSPECIFIED ASTHMA, UNCOMPLICATED 09/01/2018 MEGAIESHAAUDREY E [facility] SECURITY OFFICER Ot J98.4 OTHER DISORDERS OF LUNG 09/01/2018 IESHA AYOUBINE [facility] SECURITY OFFICER Ot R09.02 HYPOXEMIA 09/01/2018 MEGA, AUDREY E [facility] SECURITY OFFICER Ot R94.2 ABNORMAL RESULTS OF PULMONARY FUNCTION S 09/01/2018 [facility]UDREY AYOUB [facility] SECURITY OFFICER Ot E07.9 DISORDER OF THYROID, UNSPECIFIED 09/01/2018 MEGAIESHA MAGANAINE [facility] SECURITY OFFICER Ot F41.9 ANXIETY DISORDER, UNSPECIFIED 09/01/2018 AUDREY AYOUB [facility] SECURITY OFFICER Ot G47.30 SLEEP APNEA, UNSPECIFIED 09/01/2018 [facility]UDREY AYOUB [facility] SECURITY OFFICER Ot J44.9 CHRONIC OBSTRUCTIVE PULMONARY DISEASE, U 09/01/2018 [facility]UD[facility]Y [facility]B [facility] SECURITY OFFICER Ot J45.909 UNSPECIFIED ASTHMA, UNCOMPLICATED 09/01/2018 [facility] SECURITY OFFICER Ot J98.4 OTHER DISORDERS OF LUNG 09/01/2018 [facility]UDREY AYOUB [facility] SECURITY OFFICER Ot R09.02 HYPOXEMIA 09/01/2018 IESHA [facility]BINE [facility] SECURITY OFFICER Ot R94.2 ABNORMAL RESULTS OF PULMONARY FUNCTION S 09/01/2018 MATILDE ADAMS MD Ot K21.9 GASTRO-ESOPHAGEAL REFLUX DISEASE WITHOUT 09/01/2018 MATILDE ADAMS MD Ot Z01.81 8 ENCOUNTER FOR OTHER PREPROCEDURAL EXAMIN 09/01/2018 [facility]Y [facility]B [facility] SECURITY OFFICER Ot G47.00 INSOMNIA, UNSPECIFIED 09/01/2018 [facility]UD[facility]Y [facility]B [facility] SECURITY OFFICER Ot G47.30 SLEEP APNEA, UNSPECIFIED 09/01/2018 [facility]UD[facility]Y [facility]B [facility] SECURITY OFFICER Ot J44.9 CHRONIC OBSTRUCTIVE PULMONARY DISEASE, U 09/01/2018 [facility]Y [facility]B [facility] SECURITY OFFICER Ot Z01.818 ENCOUNTER FOR OTHER PREPROCEDURAL EXAMIN 09/01/2018 DEMETRIUS LOPEZ MD Ot E86.0 DEHYDRATION 09/01/2018 DEMETRIUS LOPEZ MD Ot F32.9 MAJOR DEPRESSIVE DISORDER, SINGLE EPISOD 09/01/2018 DEMETRIUS LOPEZ MD, Ot F41.9 ANXIETY DISORDER, UNSPECIFIED 09/01/2018 DEMETRIUS LOPEZ MD, Ot F64.9 GENDER IDENTITY DISORDER, UNSPECIFIED 09/01/2018 DEMETRIUS LOPEZ MD, Ot G47.30 SLEEP APNEA, UNSPECIFIED 09/01/2018 DEMETRIUS LOPEZ MD Ot G89.18 OTHER ACUTE POSTPROCEDURAL PAIN 09/01/2018 DEMETRIUS LOPEZ MD, Ot J44.9 CHRONIC OBSTRUCTIVE PULMONARY DISEASE, U 09/01/2018 DEMETRIUS LOPEZ MD, Ot K21.9 GASTRO-ESOPHAGEAL REFLUX DISEASE WITHOUT 09/01/2018 DEMETRIUS LOPEZ MD Ot R10.12 LEFT UPPER QUADRANT PAIN 09/01/2018 DEMETRIUS LOPEZ MD, Ot R50.9 FEVER, UNSPECIFIED 09/01/2018 DEMETRIUS LOPEZ MD Ot Z79.51 SHELTER (CURRENT) USE OF INHALED STERO 09/01/2018 DEMETRIUS LOPEZ MD Ot Z86.711 PERSONAL HISTORY OF PULMONARY EMBOLISM 09/01/2018 DEMETRIUS LOPEZ MD Ot Z86.79 PERSONAL HISTORY OF OTHER DISEASES OF TH 09/01/2018 DEMETRIUS LOPEZ MD Ot Z87.19 PERSONAL HISTORY OF OTHER DISEASES OF TH 09/01/2018 DEMETRIUS LOPEZ MD Ot Z88.5 ALLERGY STATUS TO NARCOTIC AGENT STATUS 09/01/2018 DEMETRIUS LOPEZ MD Ot Z88.8 ALLERGY STATUS [...] UNSPECIFIED 09/03/2018 DEMETRIUS LOPEZ MD Ot Z79.51 NEWS AGENT (CURRENT) USE OF INHALED STERO 09/03/2018 DEMETRIUS LOPEZ MD Ot Z86.711 PERSONAL HISTORY OF PULMONARY EMBOLISM 09/03/2018 DEMETRIUS LOPEZ MD Ot Z86.79 PERSONAL HISTORY OF OTHER DISEASES OF TH 09/03/2018 DEMETRIUS LOPEZ MD Ot Z87.19 PERSONAL HISTORY OF OTHER DISEASES OF TH 09/03/2018 DEMETRIUS LOPEZ MD Ot Z88.5 ALLERGY [...] OTHER ACUTE POSTPROCEDURAL PAIN 09/03/2018 DEMETRIUS LOPEZ MD, Ot J44.9 CHRONIC OBSTRUCTIVE PULMONARY DISEASE, U 09/03/2018 DEMETRIUS LOPEZ MD Ot K21.9 GASTRO-ESOPHAGEAL REFLUX DISEASE WITHOUT 09/03/2018 DEMETRIUS LOPEZ MD Ot R10.12 LEFT UPPER QUADRANT PAIN 09/03/2018 DEMETRIUS LOPEZ MD, Ot R50.9 FEVER, UNSPECIFIED 09/03/2018 DEMETRIUS LOPEZ MD Ot Z79.51 SHELTER (CURRENT) USE OF INHALED STERO 09/03/2018 DEMETRIUS LOPEZ MD, Ot Z86.711 PERSONAL HISTORY [...] OBSTRUCTIVE PULMONARY DISEASE, U 09/04/2018 DEMETRIUS LOPEZ MD, Ot K21.9 GASTRO-ESOPHAGEAL REFLUX DISEASE WITHOUT 09/04/2018 DEMETRIUS LOPEZ MD, Ot R10.12 LEFT UPPER QUADRANT PAIN 09/04/2018 DEMETRIUS LOPEZ MD, Ot R50.9 FEVER, UNSPECIFIED 09/04/2018 DEMETRIUS LOPEZ MD Ot Z79.51 NEWS AGENT (CURRENT) USE OF INHALED STERO 09/04/2018 DEMETRIUS LOPEZ MD Ot Z86.711 PERSONAL HISTORY OF PULMONARY EMBOLISM 09/04/2018 DEMETRIUS LOPEZ MD, Ot Z86.79 PERSONAL HISTORY OF OTHER DISEASES OF TH 09/04/2018 DEMETRIUS LOPEZ MD, Ot Z87.19 PERSONAL HISTORY OF OTHER DISEASES OF 09/04/2018 DEMETRIUS LOPEZ MD, Ot Z88.5 ALLERGY STATUS [...] OTHER ACUTE POSTPROCEDURAL PAIN 09/06/2018 DEMETRIUS LOPEZ MD, Ot J44.9 CHRONIC OBSTRUCTIVE PULMONARY DISEASE, U 09/06/2018 DEMETRIUS LOPEZ MD, Ot K21.9 GASTRO-ESOPHAGEAL REFLUX DISEASE WITHOUT 09/06/2018 DEMETRIUS LOPEZ MD Ot R10.12 LEFT UPPER QUADRANT PAIN 09/06/2018 DEMETRIUS LOPEZ MD Ot R50.9 FEVER, UNSPECIFIED 09/06/2018 DEMETRIUS LOPEZ MD, Ot Z79.51 SHELTER (CURRENT) USE OF INHALED STERO 09/06/2018 DEMETRIUS LOPEZ MD, Ot Z86.711 PERSONAL HISTORY OF PULMONARY EMBOLISM 09/06/2018 DEMETRIUS LOPEZ MD, Ot Z86.79 PERSONAL HISTORY OF OTHER DISEASES OF TH 09/06/2018 DEMETRIUS LOPEZ MD, Ot Z87.19 PERSONAL HISTORY OF OTHER DISEASES OF 09/06/2018 DEMETRIUS LOPEZ MD, Ot Z88.5 ALLERGY STATUS [...] Z98.84 BARIATRIC SURGERY STATUS 09/10/2018 AUDREY AYOUB APRN Ot E07.9 DISORDER OF THYROID, UNSPECIFIED 09/10/2018 AUDREY AYOUB APRN Ot F41.9 ANXIETY DISORDER, UNSPECIFIED 09/10/2018 AUDREY AYOUB APRN Ot G47.30 SLEEP APNEA, UNSPECIFIED 09/10/2018 AUDREY AYOUB APRN Ot J44.9 CHRONIC OBSTRUCTIVE PULMONARY DISEASE, U 09/10/2018 AUDREY AYOUB APRN Ot J45.909 UNSPECIFIED ASTHMA, UNCOMPLICATED 09/10/2018 AUDREY AYOUB APRN Ot J98.4 OTHER DISORDERS OF LUNG 09/10/2018 AUDREY AYOUB APRN Ot R09.02 HYPOXEMIA 09/10/2018 AUDREY AYOUB APRN Ot R94.2 ABNORMAL RESULTS OF PULMONARY FUNCTION S 09/10/2018 MATILDE ADAMS MD Ot E03.9 HYPOTHYROIDISM, UNSPECIFIED 09/10/2018 MATILDE ADAMS MD Ot E66.01 MORBID (SEVERE) OBESITY DUE TO EXCESS CA 09/10/2018 MATILDE ADAMS MD Ot E78.00 PURE HYPERCHOLESTEROLEMIA, UNSPECIFIED 09/10/2018 MATILDE ADAMS MD, Ot F32.9 MAJOR DEPRESSIVE [...] OF OTHER BARIATRIC P 09/10/2018 MATILDE ADAMS MD Ot M16.0 BILATERAL PRIMARY OSTEOARTHRITIS OF HIP 09/10/2018 MATILDE ADAMS MD Ot M17.0 BILATERAL PRIMARY [...] DEPRESSIVE DISORDER, SINGLE EPISOD 09/11/2018 MATILDE ADAMS MD Ot F41.9 ANXIETY DISORDER, UNSPECIFIED 09/11/2018 MATILDE ADAMS MD Ot G25.81 RESTLESS LEGS SYNDROME 09/11/2018 MATILDE ADAMS MD Ot G47.00 INSOMNIA, UNSPECIFIED 09/11/2018 MATILDE ADAMS MD Ot G47.33 OBSTRUCTIVE SLEEP APNEA (ADULT) (PEDIATR 09/11/2018 MATILDE ADAMS MD, Ot J44.9 CHRONIC OBSTRUCTIVE PULMONARY DISEASE, U 09/11/2018 MATILDE ADMAS MD Ot 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 09/11/2018 MATILDE ADAMS MD, Ot M16.0 BILATERAL PRIMARY OSTEOARTHRITIS OF HIP 09/11/2018 MATILDE ADAMS MD, Ot M17.0 BILATERAL PRIMARY OSTEOARTHRITIS OF KNEE 09/11/2018 MATILDE ADAMS MD Ot M79.7 FIBROMYALGIA 09/11/2018 MATILDE ADAMS MD, Ot R60.9 EDEMA, UNSPECIFIED 09/11/2018 MATILDE ADAMS MD, Ot Z99.81 DEPENDENCE ON SUPPLEMENTAL OXYGEN 09/12/2018 MATILDE ADAMS MD, Ot E03.9 HYPOTHYROIDISM, UNSPECIFIED 09/12/2018 MATILDE ADAMS MD Ot E66.01 MORBID (SEVERE) OBESITY DUE TO EXCESS CA 09/12/2018 MATILDE ADAMS MD Ot E78.00 PURE HYPERCHOLESTEROLEMIA, UNSPECIFIED 09/12/2018 MATILDE ADAMS MD Ot F32.9 MAJOR DEPRESSIVE DISORDER, SINGLE EPISOD 09/12/2018 MATILDE ADAMS MD, Ot F41.9 ANXIETY DISORDER, UNSPECIFIED 09/12/2018 MATILDE ADAMS MD Ot G25.81 RESTLESS LEGS SYNDROME 09/12/2018 MATILDE ADAMS MD Ot G47.00 INSOMNIA, UNSPECIFIED 09/12/2018 MATILDE ADAMS MD Ot G47.33 OBSTRUCTIVE SLEEP APNEA (ADULT) (PEDIATR 09/12/2018 MATILDE ADAMS MD, Ot J44.9 CHRONIC OBSTRUCTIVE PULMONARY DISEASE, U 09/12/2018 MATILDE ADAMS MD Ot 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 09/12/2018 MATILDE ADAMS MD, Ot M16.0 BILATERAL PRIMARY OSTEOARTHRITIS OF HIP 09/12/2018 MATILDE ADAMS MD, Ot M17.0 BILATERAL PRIMARY OSTEOARTHRITIS OF KNEE 09/12/2018 MATILDE ADAMS MD, Ot M79.7 FIBROMYALGIA 09/12/2018 MATILDE ADAMS MD [...] Ot F41.9 ANXIETY DISORDER, UNSPECIFIED 09/13/2018 MATILDE DAAMS MD Ot G25.81 RESTLESS LEGS SYNDROME 09/13/2018 MATILDE ADAMS MD Ot G47.00 INSOMNIA, UNSPECIFIED 09/13/2018 MATILDE ADAMS MD Ot G47.33 OBSTRUCTIVE SLEEP APNEA (ADULT) (PEDIATR 09/13/2018 MATILDE ADAMS MD, Ot J44.9 CHRONIC OBSTRUCTIVE PULMONARY DISEASE, U 09/13/2018 MATILDE ADAMS MD Ot 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 09/13/2018 MATILDE ADAMS MD Ot M16.0 BILATERAL PRIMARY OSTEOARTHRITIS OF HIP 09/13/2018 MATILDE ADAMS MD Ot M17.0 BILATERAL PRIMARY [...] OF OTHER BARIATRIC P 09/13/2018 MATILDE ADAMS MD Ot M16.0 BILATERAL PRIMARY [...] DEPRESSIVE DISORDER, SINGLE EPISOD 09/14/2018 MATILDE ADAMS MD, Ot F41.9 ANXIETY DISORDER, UNSPECIFIED 09/14/2018 MATILDE [...] PRIMARY OSTEOARTHRITIS OF KNEE 09/14/2018 MATILDE ADAMS MD, Ot M79.7 FIBROMYALGIA 09/14/2018 MATILDE ADAMS MD [...] PRIMARY OSTEOARTHRITIS OF HIP 09/15/2018 MATILDE ADAMS MD Ot M17.0 BILATERAL PRIMARY [...] PRIMARY OSTEOARTHRITIS OF HIP 09/16/2018 MATILDE ADAMS MD, Ot M17.0 BILATERAL PRIMARY OSTEOARTHRITIS OF KNEE 09/16/2018 MATILDE ADAMS MD, Ot M79.7 FIBROMYALGIA 09/16/2018 MATILDE ADAMS MD, Ot R60.9 EDEMA, UNSPECIFIED 09/16/2018 MATILDE ADAMS MD, Ot Z99.81 DEPENDENCE ON SUPPLEMENTAL OXYGEN 09/17/2018 MATILDE ADAMS MD, Ot E03.9 HYPOTHYROIDISM, UNSPECIFIED 09/17/2018 MATILDE ADAMS [...] PRIMARY OSTEOARTHRITIS OF KNEE 09/17/2018 MATILDE ADAMS MD, Ot M79.7 FIBROMYALGIA 09/17/2018 MATILDE ADAMS MD, Ot R60.9 EDEMA, UNSPECIFIED 09/17/2018 MATILDE ADAMS MD Ot Z99.81 DEPENDENCE ON SUPPLEMENTAL OXYGEN 09/18/2018 DEMETRIUS LOPEZ MD Ot E86.0 DEHYDRATION 09/18/2018 DEMETRIUS LOPEZ MD, Ot F32.9 MAJOR DEPRESSIVE DISORDER, SINGLE EPISOD 09/18/2018 DEMETRIUS LOPEZ MD, Ot F41.9 ANXIETY DISORDER, UNSPECIFIED 09/18/2018 DEMETRIUS LOPEZ MD, Ot F64.9 GENDER IDENTITY DISORDER, UNSPECIFIED 09/18/2018 DEMETRIUS LOPEZ MD Ot G47.30 SLEEP APNEA, UNSPECIFIED 09/18/2018 DEMETRIUS LOPEZ MD, Ot G89.18 OTHER ACUTE POSTPROCEDURAL PAIN 09/18/2018 DEMETRIUS LOPEZ MD, Ot J44.9 CHRONIC OBSTRUCTIVE PULMONARY DISEASE, U 09/18/2018 DEMETRIUS LOPEZ MD, Ot K21.9 GASTRO-ESOPHAGEAL REFLUX DISEASE WITHOUT 09/18/2018 DEMETRIUS LOPEZ MD, Ot R10.12 LEFT UPPER QUADRANT PAIN 09/18/2018 DEMETRIUS LOPEZ MD, Ot R50.9 FEVER, UNSPECIFIED 09/18/2018 DEMETRIUS LOPEZ MD, Ot Z79.51 NEWS AGENT (CURRENT) USE OF INHALED STERO 09/18/2018 DEMETRIUS LOPEZ MD, Ot Z86.711 PERSONAL HISTORY OF PULMONARY EMBOLISM 09/18/2018 DEMETRIUS LOPEZ MD, Ot Z86.79 PERSONAL HISTORY OF OTHER DISEASES OF TH 09/18/2018 DEMETRIUS LOPEZ MD, Ot Z87.19 PERSONAL HISTORY OF OTHER DISEASES OF TH 09/18/2018 DEMETRIUS LOPEZ MD Ot Z88.5 ALLERGY STATUS TO NARCOTIC AGENT STATUS 09/18/2018 DEMETRIUS LOPEZ MD, Ot Z88.8 ALLERGY STATUS TO OTH DRUG/MEDS/BIOL SUB 09/18/2018 DEMETRIUS LOPEZ MD Ot Z90.710 ACQUIRED ABSENCE OF BOTH CERVIX AND UTER 09/18/2018 DEMETRIUS LOPEZ MD Ot Z98.84 BARIATRIC SURGERY STATUS 09/18/2018 DEMETRIUS LOPEZ MD, Ot Z98.890 OTHER SPECIFIED POSTPROCEDURAL STATES 09/18/2018 MATILDE ADAMS MD, Ot E03.9 HYPOTHYROIDISM, UNSPECIFIED 09/18/2018 MATILDE ADAMS MD Ot E66.01 MORBID (SEVERE) OBESITY DUE TO EXCESS CA 09/18/2018 MATILDE ADAMS MD Ot E78.00 PURE HYPERCHOLESTEROLEMIA, UNSPECIFIED 09/18/2018 MAITLDE ADAMS MD Ot F32.9 MAJOR DEPRESSIVE DISORDER, SINGLE EPISOD 09/18/2018 MATILDE ADAMS MD Ot F41.9 ANXIETY DISORDER, UNSPECIFIED 09/18/2018 MATILDE ADAMS MD Ot G25.81 RESTLESS LEGS SYNDROME 09/18/2018 MATILDE ADAMS MD Ot G47.00 INSOMNIA, UNSPECIFIED 09/18/2018 MATILDE ADAMS MD Ot G47.33 OBSTRUCTIVE SLEEP APNEA (ADULT) (PEDIATR 09/18/2018 MATILDE ADAMS MD, Ot J44.9 CHRONIC OBSTRUCTIVE PULMONARY DISEASE, U 09/18/2018 MATILDE ADAMS MD Ot 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 09/18/2018 MATILDE ADAMS MD Ot M16.0 BILATERAL PRIMARY OSTEOARTHRITIS OF HIP 09/18/2018 MATILDE ADAMS MD, Ot M17.0 BILATERAL PRIMARY OSTEOARTHRITIS OF KNEE 09/18/2018 MATILDE ADAMS MD Ot M79.7 FIBROMYALGIA 09/18/2018 MATILDE ADAMS MD Ot R60.9 EDEMA, UNSPECIFIED 09/18/2018 MATILDE ADAMS MD Ot Z99.81 DEPENDENCE ON SUPPLEMENTAL OXYGEN 09/18/2018 MATILDE ADAMS MD Ot E03.9 HYPOTHYROIDISM, UNSPECIFIED 09/18/2018 MATILDE ADAMS MD Ot E66.01 MORBID (SEVERE) OBESITY DUE TO EXCESS CA 09/18/2018 MATILDE ADAMS MD Ot E78.00 PURE HYPERCHOLESTEROLEMIA, UNSPECIFIED 09/18/2018 MATILDE ADAMS MD, Ot F32.9 MAJOR DEPRESSIVE DISORDER, SINGLE EPISOD 09/18/2018 MATILDE ADAMS MD Ot F41.9 ANXIETY DISORDER, UNSPECIFIED 09/18/2018 MATILDE ADAMS MD Ot G25.81 RESTLESS LEGS SYNDROME 09/18/2018 MATILDE ADAMS MD Ot G47.00 INSOMNIA, UNSPECIFIED 09/18/2018 MATILDE ADAMS MD Ot G47.33 OBSTRUCTIVE SLEEP APNEA (ADULT) (PEDIATR 09/18/2018 MATILDE ADAMS MD Ot G62.9 POLYNEUROPATHY, UNSPECIFIED 09/18/2018 MATILDE ADAMS MD Ot I10 ESSENTIAL (PRIMARY) HYPERTENSION 09/18/2018 MATILDE ADAMS MD, Ot J43.9 EMPHYSEMA, UNSPECIFIED 09/18/2018 MATILDE ADAMS MD, Ot K21.9 GASTRO-ESOPHAGEAL REFLUX DISEASE WITHOUT 09/18/2018 MATILDE ADAMS MD, Ot K95.89 OTHER [...] DISEASE WITHOUT 11/05/2018 MATILDE ADAMS MD Ot Z01.81 8 ENCOUNTER FOR OTHER PREPROCEDURAL EXAMIN 11/08/2018 [facility] Ot G47.00 INSOMNIA, UNSPECIFIED 11/08/2018 [facility]ICER Ot G47.30 SLEEP APNEA, UNSPECIFIED 11/08/2018 [facility] OFFICER Ot J44.9 CHRONIC OBSTRUCTIVE PULMONARY DISEASE, U 11/08/2018 [facility]IC[facility] Ot Z01.818 ENCOUNTER FOR OTHER PREPROCEDURAL EXAMIN 12/05/2018 [facility]ICER Ot G47.00 INSOMNIA, UNSPECIFIED 12/05/2018 [facility] E [facility] SECURITY OFFICER Ot G47.30 SLEEP APNEA, UNSPECIFIED 12/05/2018 [facility] OFFICER Ot J44.9 CHRONIC OBSTRUCTIVE PULMONARY DISEASE, U 12/05/2018 [facility]ICER Ot Z01.818 ENCOUNTER FOR OTHER PREPROCEDURAL EXAMIN 12/20/2018 MATILDE ADAMS MD, Ot E66.01 MORBID [...] 40.0-44.9, ADULT 12/20/2018 MATILDE ADAMS MD, Ot Z79.89 9 OTHER NEWS AGENT (CURRENT) DRUG THERAPY 12/20/2018 MATILDE ADAMS MD, Ot Z80.1 FAMILY HISTORY OF MALIG NEOPLASM OF TRAC 12/20/2018 MATILDE ADAMS MD, Ot Z80.3 FAMILY HISTORY OF MALIGNANT NEOPLASM OF 12/20/2018 MATILDE ADAMS MD, Ot Z86.71 1 PERSONAL HISTORY OF PULMONARY EMBOLISM 12/20/2018 MATILDE [...] 40.0-44.9, ADULT 12/20/2018 MATILDE ADAMS MD, Ot Z79.89 9 OTHER SHELTER (CURRENT) DRUG THERAPY 12/20/2018 MATILDE ADAMS MD, Ot Z80.1 FAMILY HISTORY OF MALIG NEOPLASM OF TRAC 12/20/2018 MATILDE ADAMS MD, Ot Z80.3 FAMILY HISTORY OF MALIGNANT NEOPLASM OF 12/20/2018 MATILDE ADAMS MD, Ot Z86.71 1 PERSONAL HISTORY OF PULMONARY EMBOLISM 12/20/2018 MATILDE ADAMS MD, Ot Z88.5 ALLERGY STATUS TO NARCOTIC AGENT STATUS 01/14/2019 MATILDE ADAMS MD, Ot K21.9 GASTRO-ESOPHAGEAL REFLUX DISEASE WITHOUT 01/14/2019 MATILDE ADAMS MD, Ot Z01.81 8 ENCOUNTER FOR OTHER PREPROCEDURAL EXAMIN 01/23/2019 MATILDE ADAMS MD, Ot E03.9 HYPOTHYROIDISM, UNSPECIFIED 01/23/2019 MATILDE ADAMS MD, Ot E78.00 PURE HYPERCHOLESTEROLEMIA, UNSPECIFIED 01/23/2019 MATILDE ADAMS MD, Ot F32.9 MAJOR DEPRESSIVE DISORDER, SINGLE EPISOD 01/23/2019 MATILDE AADMS MD, Ot F41.9 ANXIETY DISORDER, UNSPECIFIED 01/23/2019 MATILDE ADAMS MD, Ot G47.33 OBSTRUCTIVE SLEEP APNEA (ADULT) (PEDIATR 01/23/2019 MATILDE ADAMS MD, Ot G62.9 POLYNEUROPATHY, UNSPECIFIED 01/23/2019 MATILDE ADAMS MD, Ot J44.9 CHRONIC OBSTRUCTIVE PULMONARY DISEASE, U 01/23/2019 MATILDE ADAMS MD, Ot K21.9 GASTRO-ESOPHAGEAL REFLUX DISEASE WITHOUT 01/23/2019 MATILDE ADAMS MD, Ot K56.60 0 PARTIAL INTESTINAL OBSTRUCTION, UNSPECIF 01/23/2019 MATILDE ADAMS [...] Z99.89 DEPENDENCE ON OTHER ENABLING MACHINES AN 01/27/2019 MATILDE ADAMS MD, Ot K56.60 0 PARTIAL INTESTINAL OBSTRUCTION, UNSPECIF 01/27/2019 MATILDE ADAMS MD, Ot K76.0 FATTY (CHANGE OF) LIVER, NOT ELSEWHERE C 01/27/2019 MATILDE ADAMS MD, Ot R06.02 SHORTNESS OF BREATH 01/27/2019 MATILDE ADAMS MD, Ot Z90.49 ACQUIRED ABSENCE OF OTHER SPECIFIED PART 01/27/2019 MATILDE ADAMS MD, Ot Z90.71 0 ACQUIRED ABSENCE OF BOTH CERVIX AND UTER 01/27/2019 MATILDE ADAMS MD, Ot Z98.89 0 OTHER SPECIFIED POSTPROCEDURAL STATES 01/28/2019 AUDREY AYOUB APRN Ot E07.9 DISORDER OF THYROID, UNSPECIFIED 01/28/2019 AUDREY AYOUB APRN Ot F41.9 ANXIETY DISORDER, UNSPECIFIED 01/28/2019 AUDREY AYOUB APRN Ot G47.30 SLEEP APNEA, UNSPECIFIED 01/28/2019 UADREY AYOUB APRN Ot J44.9 CHRONIC OBSTRUCTIVE PULMONARY DISEASE, U 01/28/2019 AUDREY AYOUB APRN Ot J45.909 UNSPECIFIED ASTHMA, UNCOMPLICATED 01/28/2019 AUDREY AYOUB APRN Ot J98.4 OTHER DISORDERS OF LUNG 01/28/2019 AUDREY AYOUB APRN Ot R09.02 HYPOXEMIA 01/28/2019 AUDREY AYOUB APRN Ot R94.2 ABNORMAL RESULTS OF PULMONARY FUNCTION S 01/29/2019 MATILDE ADMAS MD, Ot E66.01 MORBID (SEVERE) OBESITY DUE TO EXCESS CA 01/29/2019 MATILDE ADAMS MD Ot E78.00 PURE HYPERCHOLESTEROLEMIA, UNSPECIFIED 01/29/2019 MATILDE ADAMS MD, Ot F41.9 ANXIETY DISORDER, UNSPECIFIED 01/29/2019 MATILDE ADAMS MD, Ot G47.33 OBSTRUCTIVE SLEEP APNEA (ADULT) (PEDIATR 01/29/2019 MATILDE ADAMS MD Ot K56.51 INTESTINAL ADHESIONS [BANDS], WITH PARTI 01/29/2019 MATILDE AADMS MD Ot K56.69 0 OTHER PARTIAL INTESTINAL OBSTRUCTION 01/29/2019 MATILDE ADAMS MD Ot M19.91 PRIMARY OSTEOARTHRITIS, UNSPECIFIED SITE 01/29/2019 MATILDE ADAMS MD Ot R60.0 LOCALIZED EDEMA 01/29/2019 MATILDE ADAMS MD, Ot Z68.37 BODY MASS INDEX (BMI) 37.0-37.9, ADULT 01/29/2019 MATILDE ADAMS MD, Ot Z98.84 BARIATRIC SURGERY STATUS 01/29/2019 MATILDE ADAMS MD, Ot E66.01 MORBID (SEVERE) OBESITY DUE TO EXCESS CA 01/29/2019 MATILDE ADAMS MD Ot E78.00 PURE HYPERCHOLESTEROLEMIA, UNSPECIFIED 01/29/2019 MATILDE ADAMS MD, Ot F41.9 ANXIETY DISORDER, UNSPECIFIED 01/29/2019 MATILDE ADAMS MD Ot G47.33 OBSTRUCTIVE SLEEP APNEA (ADULT) (PEDIATR 01/29/2019 MATILDE ADAMS MD Ot K56.51 INTESTINAL ADHESIONS [BANDS], WITH PARTI 01/29/2019 MATILDE ADAMS MD Ot K56.69 0 OTHER PARTIAL INTESTINAL OBSTRUCTION 01/29/2019 MAITLDE ADAMS MD, Ot M19.91 PRIMARY OSTEOARTHRITIS, UNSPECIFIED SITE 01/29/2019 MATILDE ADAMS MD Ot R60.0 LOCALIZED EDEMA 01/29/2019 MATILDE ADAMS MD Ot Z68.37 BODY MASS INDEX (BMI) 37.0-37.9, ADULT 01/29/2019 MATILDE ADAMS MD Ot Z98.84 BARIATRIC SURGERY STATUS 01/30/2019 MATILDE ADAMS MD Ot E66.01 MORBID (SEVERE) OBESITY DUE TO EXCESS CA 01/30/2019 MATILDE ADAMS MD Ot E78.00 PURE HYPERCHOLESTEROLEMIA, UNSPECIFIED 01/30/2019 MATILDE ADAMS MD, Ot F41.9 ANXIETY DISORDER, UNSPECIFIED 01/30/2019 MATILDE ADAMS MD Ot G47.33 OBSTRUCTIVE SLEEP APNEA (ADULT) (PEDIATR 01/30/2019 MATILDE ADAMS MD, Ot K56.51 INTESTINAL ADHESIONS [BANDS], WITH PARTI 01/30/2019 MATILDE ADAMS MD Ot K56.69 0 OTHER PARTIAL INTESTINAL OBSTRUCTION 01/30/2019 MATILDE ADAMS MD, Ot M19.91 PRIMARY OSTEOARTHRITIS, UNSPECIFIED SITE 01/30/2019 MATILDE ADAMS MD Ot R60.0 LOCALIZED EDEMA 01/30/2019 MATILDE ADAMS MD Ot Z68.37 BODY MASS INDEX (BMI) 37.0-37.9, ADULT 01/30/2019 MATILDE ADAMS MD Ot Z98.84 BARIATRIC SURGERY STATUS 01/31/2019 MATILDE ADAMS MD Ot E66.01 MORBID (SEVERE) OBESITY DUE TO EXCESS CA 01/31/2019 MATILDE ADAMS MD Ot E78.00 PURE HYPERCHOLESTEROLEMIA, UNSPECIFIED 01/31/2019 MATILDE ADAMS MD Ot F41.9 ANXIETY DISORDER, UNSPECIFIED 01/31/2019 MATILDE ADAMS MD Ot G47.33 OBSTRUCTIVE SLEEP APNEA (ADULT) (PEDIATR 01/31/2019 MATILDE ADAMS MD Ot K56.51 INTESTINAL ADHESIONS [BANDS], WITH PARTI 01/31/2019 MATILDE ADAMS MD Ot K56.69 0 OTHER PARTIAL INTESTINAL OBSTRUCTION 01/31/2019 MATILDE ADAMS MD, Ot M19.91 PRIMARY OSTEOARTHRITIS, UNSPECIFIED SITE 01/31/2019 MATILDE ADAMS MD Ot R60.0 LOCALIZED EDEMA 01/31/2019 MATILDE ADAMS MD Ot Z68.37 BODY MASS INDEX (BMI) 37.0-37.9, ADULT 01/31/2019 MATILDE ADAMS MD Ot Z98.84 BARIATRIC SURGERY STATUS 01/31/2019 MATILDE ADAMS MD Ot E66.01 MORBID (SEVERE) OBESITY DUE TO EXCESS CA 01/31/2019 MATILDE ADAMS MD Ot E78.00 PURE HYPERCHOLESTEROLEMIA, UNSPECIFIED 01/31/2019 MATILDE ADAMS MD, Ot F41.9 ANXIETY DISORDER, UNSPECIFIED 01/31/2019 MATILDE ADAMS MD, Ot G47.33 OBSTRUCTIVE SLEEP APNEA (ADULT) (PEDIATR 01/31/2019 MATILDE ADAMS MD Ot K56.51 INTESTINAL ADHESIONS [BANDS], WITH PARTI 01/31/2019 MATILDE ADAMS MD Ot K56.69 0 OTHER PARTIAL INTESTINAL OBSTRUCTION 01/31/2019 MATILDE ADAMS MD, Ot M19.91 PRIMARY OSTEOARTHRITIS, UNSPECIFIED SITE 01/31/2019 MATILDE ADAMS MD Ot R60.0 LOCALIZED EDEMA 01/31/2019 MATILDE ADAMS MD Ot Z68.37 BODY MASS INDEX (BMI) 37.0-37.9, ADULT 01/31/2019 MATILDE ADAMS MD Ot Z98.84 BARIATRIC SURGERY STATUS 02/01/2019 MATILDE ADAMS MD Ot K21.9 GASTRO-ESOPHAGEAL REFLUX DISEASE WITHOUT 02/01/2019 MATILDE ADAMS MD Ot Z01.81 8 ENCOUNTER FOR OTHER PREPROCEDURAL EXAMIN 02/02/2019 MATILDE ADAMS MD Ot E66.01 MORBID (SEVERE) OBESITY DUE TO EXCESS CA 02/02/2019 MATILDE ADAMS MD Ot E78.00 PURE HYPERCHOLESTEROLEMIA, UNSPECIFIED 02/02/2019 MATILDE ADAMS MD Ot F41.9 ANXIETY DISORDER, UNSPECIFIED 02/02/2019 MATILDE ADAMS MD Ot G47.33 OBSTRUCTIVE SLEEP APNEA (ADULT) (PEDIATR 02/02/2019 MATILDE ADAMS MD Ot K56.51 INTESTINAL ADHESIONS [BANDS], WITH PARTI 02/02/2019 MATILDE ADAMS MD Ot K56.69 0 OTHER PARTIAL INTESTINAL OBSTRUCTION 02/02/2019 MATILDE ADAMS MD, Ot M19.91 PRIMARY OSTEOARTHRITIS, UNSPECIFIED SITE 02/02/2019 MATILDE ADAMS MD Ot R60.0 LOCALIZED EDEMA 02/02/2019 MATILDE ADAMS MD Ot Z68.37 BODY MASS INDEX (BMI) 37.0-37.9, ADULT 02/02/2019 MATILDE ADAMS MD Ot Z98.84 BARIATRIC SURGERY STATUS 02/03/2019 MATILDE ADAMS MD Ot E66.01 MORBID (SEVERE) OBESITY DUE TO EXCESS CA 02/03/2019 MATILDE ADAMS MD Ot E78.00 PURE HYPERCHOLESTEROLEMIA, UNSPECIFIED 02/03/2019 MATILDE ADAMS MD Ot F41.9 ANXIETY DISORDER, UNSPECIFIED 02/03/2019 MATILDE ADAMS MD Ot G47.33 OBSTRUCTIVE SLEEP APNEA (ADULT) (PEDIATR 02/03/2019 MATILDE ADAMS MD, Ot K56.51 INTESTINAL ADHESIONS [BANDS], WITH PARTI 02/03/2019 MATILDE ADAMS MD Ot K56.69 0 OTHER PARTIAL INTESTINAL OBSTRUCTION 02/03/2019 MATILDE ADAMS MD, Ot M19.91 PRIMARY OSTEOARTHRITIS, UNSPECIFIED SITE 02/03/2019 MATILDE ADAMS MD Ot R60.0 LOCALIZED EDEMA 02/03/2019 MATILDE ADAMS MD Ot Z68.37 BODY MASS INDEX (BMI) 37.0-37.9, ADULT 02/03/2019 MATILDE ADAMS MD Ot Z98.84 BARIATRIC SURGERY STATUS 02/04/2019 MATILDE ADAMS MD Ot E66.01 MORBID (SEVERE) OBESITY DUE TO EXCESS CA 02/04/2019 MATILDE ADAMS MD Ot E78.00 PURE HYPERCHOLESTEROLEMIA, UNSPECIFIED 02/04/2019 MATILDE ADAMS MD Ot F41.9 ANXIETY DISORDER, UNSPECIFIED 02/04/2019 MATILDE ADAMS MD Ot G47.33 OBSTRUCTIVE SLEEP APNEA (ADULT) (PEDIATR 02/04/2019 MATILDE ADAMS MD, Ot K56.51 INTESTINAL ADHESIONS [BANDS], WITH PARTI 02/04/2019 MATILDE ADAMS MD, Ot K56.69 0 OTHER PARTIAL INTESTINAL OBSTRUCTION 02/04/2019 MATILDE ADAMS MD, Ot M19.91 PRIMARY OSTEOARTHRITIS, UNSPECIFIED SITE 02/04/2019 MATILDE ADAMS MD Ot R60.0 LOCALIZED EDEMA 02/04/2019 MATILDE ADAMS MD, Ot Z68.37 BODY MASS INDEX (BMI) 37.0-37.9, ADULT 02/04/2019 MATILDE ADAMS MD, Ot Z98.84 BARIATRIC SURGERY STATUS 02/04/2019 MATILDE ADAMS MD, Ot D64.9 ANEMIA, UNSPECIFIED 02/04/2019 MATILDE ADAMS MD, Ot E03.9 HYPOTHYROIDISM, UNSPECIFIED 02/04/2019 MATILDE ADAMS MD, Ot E66.01 MORBID (SEVERE) OBESITY DUE TO EXCESS CA 02/04/2019 MATILDE ADAMS MD, Ot E78.00 PURE HYPERCHOLESTEROLEMIA, UNSPECIFIED 02/04/2019 MATILDE ADAMS MD Ot F32.9 MAJOR DEPRESSIVE DISORDER, SINGLE EPISOD 02/04/2019 MATILDE ADAMS MD, Ot F41.9 ANXIETY DISORDER, UNSPECIFIED 02/04/2019 MATILDE ADAMS MD, Ot G47.33 OBSTRUCTIVE SLEEP APNEA (ADULT) (PEDIATR 02/04/2019 MATILDE ADAMS MD, Ot G62.9 POLYNEUROPATHY, UNSPECIFIED 02/04/2019 MATILDE ADAMS MD, Ot H54.3 UNQUALIFIED VISUAL LOSS, BOTH EYES 02/04/2019 MATILDE ADAMS MD Ot I10 ESSENTIAL (PRIMARY) HYPERTENSION 02/04/2019 MATILDE ADAMS MD, Ot J43.9 EMPHYSEMA, UNSPECIFIED 02/04/2019 MATILDE ADAMS MD Ot K21.9 GASTRO-ESOPHAGEAL REFLUX DISEASE WITHOUT 02/04/2019 MATILDE ADAMS MD, Ot K56.51 INTESTINAL ADHESIONS [BANDS], WITH PARTI 02/04/2019 MATILDE ADAMS MD, Ot K56.69 0 OTHER PARTIAL INTESTINAL OBSTRUCTION 02/04/2019 MATILDE ADAMS MD, Ot K59.09 OTHER CONSTIPATION 02/04/2019 MATILDE ADAMS MD, Ot M19.91 PRIMARY OSTEOARTHRITIS, UNSPECIFIED SITE 02/04/2019 MATILDE ADAMS MD, Ot M79.7 FIBROMYALGIA 02/04/2019 MATILDE ADAMS MD, Ot N31.9 NEUROMUSCULAR DYSFUNCTION OF BLADDER, UN 02/04/2019 MATILDE ADAMS MD, Ot R01.1 CARDIAC MURMUR, UNSPECIFIED 02/04/2019 MATILDE ADAMS MD, Ot R60.0 LOCALIZED EDEMA 02/04/2019 MATILDE ADAMS MD, Ot Z68.37 BODY MASS INDEX (BMI) 37.0-37.9, ADULT 02/04/2019 MATILDE ADAMS MD, Ot Z98.84 BARIATRIC SURGERY STATUS 04/02/2019 MATILDE ADAMS MD, Ot K56.60 0 PARTIAL INTESTINAL OBSTRUCTION, UNSPECIF 04/02/2019 MATILDE ADAMS MD, Ot K76.0 FATTY (CHANGE OF) LIVER, NOT ELSEWHERE C 04/02/2019 MATILDE ADAMS MD, Ot R06.02 SHORTNESS OF BREATH 04/02/2019 MATILDE ADAMS MD, Ot Z90.49 ACQUIRED ABSENCE OF OTHER SPECIFIED PART 04/02/2019 MATILDE ADAMS MD, Ot Z90.71 0 ACQUIRED ABSENCE OF BOTH CERVIX AND UTER 04/02/2019 MATILDE ADAMS MD, Ot Z98.89 0 OTHER SPECIFIED POSTPROCEDURAL STATES 06/14/2019 Carolina Barry M79.7 Fibromyalgia 06/14/2019 Carolina Barry M15.0 Primary generalized (osteo)arthritis 06/14/2019 Carolina Barry M79.7 Fibromyalgia 06/14/2019 Carolina Barry Z79.899 Other [facility] current drug therapy 06/14/2019 Carolina Barry M15.0 Primary generalized (osteo)arthritis 06/14/2019 Carolina Barry M79.7 Fibromyalgia 06/14/2019 Carolina Barry 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 06/21/2019 Carolina Barry M15.0 Primary generalized (osteo)arthritis 06/21/2019 Carolina Barry M79.7 Fibromyalgia 06/21/2019 Carolina Barry 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 06/21/2019 Carolina Barry M15.0 Primary generalized (osteo)arthritis 06/21/2019 Carolina Barry M79.7 Fibromyalgia 06/21/2019 Carolina Barry 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 06/21/2019 Carolina Barry M15.0 Primary generalized (osteo)arthritis 06/21/2019 Carolina Barry M79.7 Fibromyalgia 06/21/2019 Carolina Barry 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 1 NONTOXIC SINGLE THYROID NODULE 08/21/2019 WEN POOL DO Ot I26. 99 OTHER PULMONARY EMBOLISM WITHOUT ACUTE C 08/21/2019 WEN POOL DO Ot K43. 9 VENTRAL HERNIA WITHOUT OBSTRUCTION OR GA 08/21/2019 WEN POOL DO Ot K76. 0 FATTY (CHANGE OF) LIVER, NOT ELSEWHERE C 08/21/2019 WEN POOL DO Ot R22. 43 LOCALIZED SWELLING, MASS AND LUMP, LOWER 08/21/2019 AUDREY AYOUB APRN Ot J44.9 CHRONIC OBSTRUCTIVE PULMONARY DISEASE, U 08/21/2019 AUDREY AYOUB APRN Ot E04.1 NONTOXIC SINGLE THYROID NODULE 08/21/2019 [facility]IC[facility] Ot F41.9 ANXIETY DISORDER, UNSPECIFIED 08/21/2019 [facility] OFFIC[facility] Ot I26.99 OTHER PULMONARY EMBOLISM WITHOUT ACUTE C 08/21/2019 AUDREY AYOUB APRN Ot J44.9 CHRONIC OBSTRUCTIVE PULMONARY DISEASE, U 08/21/2019 [facility]IESHAAUDREY [facility] OFFICER Ot J98.4 OTHER DISORDERS OF LUNG 08/21/2019 MEGAIESHA MAGANAINE [facility] Ot I26.99 OTHER PULMONARY EMBOLISM WITHOUT ACUTE C 08/21/2019 MEGA [facility] OFFICER Ot J44.9 CHRONIC OBSTRUCTIVE PULMONARY DISEASE, U 08/21/2019 MEGAIESHAAUDREY [facility] OFFICER Ot J98.4 OTHER DISORDERS OF LUNG 08/21/2019 MEGA [facility]IC[facility] Ot R09.02 HYPOXEMIA 08/21/2019 MEGA [facility] OFFICER Ot J42 UNSPECIFIED CHRONIC BRONCHITIS 08/21/2019 MEGA [facility] OFFICER Ot J45.909 UNSPECIFIED ASTHMA, UNCOMPLICATED 08/21/2019 MEGA [facility]ICER Ot J98.4 OTHER DISORDERS OF LUNG 08/21/2019 MEGAIESHAAUDREY [facility]ITY OFFICER Ot J42 UNSPECIFIED CHRONIC BRONCHITIS 08/21/2019 MEGA [facility]Y [facility] OFFICER Ot J45.909 UNSPECIFIED ASTHMA, UNCOMPLICATED 08/21/2019 [facility]IESHAAUDREY E [facility] SECURITY OFFICER Ot J98.4 OTHER DISORDERS OF LUNG 08/21/2019 MEGAIESHAAUDREY [facility]ITY OFFICER Ot R09.02 HYPOXEMIA 08/21/2019 MEGAIESHAAUDREY [facility]ITY OFFICER Ot R94.2 ABNORMAL RESULTS OF PULMONARY FUNCTION S 08/21/2019 MEGA AUD[facility]Y [facility] OFFICER Ot E07.9 DISORDER OF THYROID, UNSPECIFIED 08/21/2019 [facility] OFFICER Ot F41.9 ANXIETY DISORDER, UNSPECIFIED 08/21/2019 [facility] OFFICER Ot G47.30 SLEEP APNEA, UNSPECIFIED 08/21/2019 [facility]ITY OFFICER Ot J44.9 CHRONIC OBSTRUCTIVE PULMONARY DISEASE, U 08/21/2019 MEGAIESHAAUDREY [facility] SECURITY OFFICER Ot J45.909 UNSPECIFIED ASTHMA, UNCOMPLICATED 08/21/2019 MEGA [facility]Y [facility]ITY OFFICER Ot J98.4 OTHER DISORDERS OF LUNG 08/21/2019 [facility] SEC[facility]ITY OFFICER Ot R09.02 HYPOXEMIA 08/21/2019 IESHA AYOUBINE [facility] OFFICER Ot R94.2 ABNORMAL RESULTS OF PULMONARY FUNCTION S 08/21/2019 MATILDE ADAMS MD Ot K21.9 GASTRO-ESOPHAGEAL REFLUX DISEASE WITHOUT 08/21/2019 MATILDE ADAMS MD Ot Z01.81 8 ENCOUNTER FOR OTHER PREPROCEDURAL EXAMIN 08/21/2019 AUDREY AYOUB APRN Ot G47.00 INSOMNIA, UNSPECIFIED 08/21/2019 AUDREY AYOUB APRN Ot G47.30 SLEEP APNEA, UNSPECIFIED 08/21/2019 AUDREY AYOUB APRN Ot J44.9 CHRONIC OBSTRUCTIVE PULMONARY DISEASE, U 08/21/2019 AUDREY AYOUB APRN Ot Z01.818 ENCOUNTER FOR OTHER PREPROCEDURAL EXAMIN 08/21/2019 MATILDE ADAMS MD Ot R10.9 UNSPECIFIED ABDOMINAL PAIN 08/21/2019 MATILDE ADAMS MD Ot Z98.84 BARIATRIC SURGERY STATUS 08/21/2019 MATILDE ADAMS MD Ot K56.60 0 PARTIAL INTESTINAL OBSTRUCTION, UNSPECIF 08/21/2019 MATILDE ADAMS MD Ot K76.0 FATTY (CHANGE OF) LIVER, NOT ELSEWHERE C 08/21/2019 MATILDE ADAMS MD Ot R06.02 SHORTNESS OF BREATH 08/21/2019 MATILDE ADAMS MD Ot Z90.49 ACQUIRED ABSENCE OF OTHER SPECIFIED PART 08/21/2019 MATILDE ADAMS MD Ot Z90.71 0 ACQUIRED ABSENCE OF BOTH CERVIX AND UTER 08/21/2019 MATILDE ADAMS MD Ot Z98.89 0 OTHER SPECIFIED POSTPROCEDURAL STATES 08/27/2019 SUSAN MURRAY APRN Ot K63.2 FISTULA OF INTESTINE 09/02/2019 AUDREY AYOUB APRN Ot E07.9 DISORDER OF THYROID, UNSPECIFIED 09/02/2019 AUDREY AYOUB APRN Ot F41.9 ANXIETY DISORDER, UNSPECIFIED 09/02/2019 AUDREY AYOUB APRN Ot G47.30 SLEEP APNEA, UNSPECIFIED 09/02/2019 AUDREY AYOUB APRN Ot J44.9 CHRONIC OBSTRUCTIVE PULMONARY DISEASE, U 09/02/2019 AUDREY AYOUB APRN Ot J45.909 UNSPECIFIED ASTHMA, UNCOMPLICATED 09/02/2019 [facility]ITY OFFICER Ot J98.4 OTHER DISORDERS OF LUNG 09/02/2019 AUDREY AYOUB APRN Ot R09.02 HYPOXEMIA 09/02/2019 MEGA, AUDREY E [facility]OSP[facility] SECURITY OFFICER Ot R94.2 ABNORMAL RESULTS OF PULMONARY FUNCTION S 09/04/2019 MATILDE ADAMS MD Ot Z01.81 8 ENCOUNTER FOR OTHER PREPROCEDURAL EXAMIN 09/05/2019 AUDREY AYOUB APRN Ot E07.9 DISORDER OF THYROID, UNSPECIFIED 09/05/2019 [facility]ITY OFFICER Ot F41.9 ANXIETY DISORDER, UNSPECIFIED 09/05/2019 [facility] SECURITY OFFICER Ot G47.30 SLEEP APNEA, UNSPECIFIED 09/05/2019 [facility] SECURITY OFFICER Ot J44.9 CHRONIC OBSTRUCTIVE PULMONARY DISEASE, U 09/05/2019 [facility] SECURITY OFFICER Ot J45.909 UNSPECIFIED ASTHMA, UNCOMPLICATED 09/05/2019 AUDREY AYOUB APRN Ot J98.4 OTHER DISORDERS OF LUNG 09/05/2019 [facility] APRN Ot R09.02 HYPOXEMIA 09/05/2019 [facility] APRN Ot R94.2 ABNORMAL RESULTS OF PULMONARY FUNCTION S 09/05/2019 MATILDE ADAMS MD, Ot E03.9 HYPOTHYROIDISM, UNSPECIFIED 09/05/2019 MATILDE ADAMS MD, Ot E66.01 MORBID (SEVERE) OBESITY DUE TO EXCESS CA 09/05/2019 MATILDE ADAMS MD, Ot E78.00 PURE HYPERCHOLESTEROLEMIA, UNSPECIFIED 09/05/2019 MATILDE ADAMS MD, Ot E78.5 HYPERLIPIDEMIA, UNSPECIFIED 09/05/2019 MATILDE ADAMS MD, Ot F32.9 MAJOR DEPRESSIVE DISORDER, SINGLE EPISOD 09/05/2019 MATILDE ADAMS MD, Ot F41.9 ANXIETY DISORDER, UNSPECIFIED 09/05/2019 MATILDE ADAMS MD Ot G47.33 OBSTRUCTIVE SLEEP APNEA (ADULT) (PEDIATR 09/05/2019 MATILDE ADAMS MD, Ot G62.9 POLYNEUROPATHY, UNSPECIFIED 09/05/2019 MATILDE ADAMS MD, Ot I10 ESSENTIAL (PRIMARY) HYPERTENSION 09/05/2019 MATILDE ADAMS MD, Ot J44.9 CHRONIC OBSTRUCTIVE PULMONARY DISEASE, U 09/05/2019 MATILDE ADAMS MD, Ot K21.9 GASTRO-ESOPHAGEAL REFLUX DISEASE WITHOUT 09/05/2019 MATILDE ADAMS MD, Ot K63.2 FISTULA OF INTESTINE 09/05/2019 MATILDE ADAMS MD, Ot M19.90 UNSPECIFIED OSTEOARTHRITIS, UNSPECIFIED 09/05/2019 MATILDE ADAMS MD, Ot T85.79 XA INFECT/INFLM REACTION DUE TO OTH INT PRO 09/05/2019 MATILDE ADAMS MD, Ot Z68.39 BODY MASS INDEX (BMI) 39.0-39.9, ADULT 09/05/2019 MATILDE ADAMS MD, Ot Z79.89 9 OTHER SHELTER (CURRENT) DRUG THERAPY 09/05/2019 MATILDE ADAMS MD, Ot Z80.1 FAMILY HISTORY OF MALIG NEOPLASM OF TRAC 09/05/2019 MATILDE ADAMS MD, Ot Z80.3 FAMILY HISTORY OF MALIGNANT NEOPLASM OF 09/05/2019 MATILDE ADAMS MD, Ot Z82.49 FAMILY HX OF ISCHEM HEART DIS AND OTH DI 09/05/2019 MATILDE ADAMS MD, Ot Z88.5 ALLERGY STATUS TO NARCOTIC AGENT STATUS 09/05/2019 MATILDE ADAMS MD, Ot Z88.8 ALLERGY STATUS TO OTH DRUG/MEDS/BIOL SUB 09/05/2019 MATILDE ADAMS MD, Ot Z90.89 ACQUIRED ABSENCE OF OTHER ORGANS 09/05/2019 MATILDE ADAMS MD, Ot Z98.84 BARIATRIC SURGERY STATUS 09/14/2019 MATILDE ADAMS MD, Ot E03.9 HYPOTHYROIDISM, UNSPECIFIED 09/14/2019 MATILDE ADAMS MD, Ot E66.01 MORBID (SEVERE) OBESITY DUE TO EXCESS CA 09/14/2019 MATILDE ADAMS MD, Ot E78.00 PURE HYPERCHOLESTEROLEMIA, UNSPECIFIED 09/14/2019 MATILDE ADAMS MD, Ot E78.5 HYPERLIPIDEMIA, UNSPECIFIED 09/14/2019 MATILDE ADAMS MD, Ot F32.9 MAJOR DEPRESSIVE DISORDER, SINGLE EPISOD 09/14/2019 MATILDE ADAMS MD, Ot F41.9 ANXIETY DISORDER, UNSPECIFIED 09/14/2019 MATILDE ADAMS MD, Ot G47.33 OBSTRUCTIVE SLEEP APNEA (ADULT) (PEDIATR 09/14/2019 MATILDE ADAMS MD, Ot G62.9 POLYNEUROPATHY, UNSPECIFIED 09/14/2019 MATILDE ADAMS MD, Ot I10 ESSENTIAL (PRIMARY) HYPERTENSION 09/14/2019 MATILDE ADAMS MD, Ot J44.9 CHRONIC OBSTRUCTIVE PULMONARY DISEASE, U 09/14/2019 MATILDE ADAMS MD, Ot K21.9 GASTRO-ESOPHAGEAL REFLUX DISEASE WITHOUT 09/14/2019 MATILDE ADAMS MD, Ot K63.2 FISTULA OF INTESTINE 09/14/2019 MATILDE ADAMS MD, Ot M19.90 UNSPECIFIED OSTEOARTHRITIS, UNSPECIFIED 09/14/2019 MATILDE ADAMS MD, Ot T85.79 XA INFECT/INFLM REACTION DUE TO OTH INT PRO 09/14/2019 MATILDE ADAMS MD, Ot Z68.39 BODY MASS INDEX (BMI) 39.0-39.9, ADULT 09/14/2019 MATILDE ADAMS MD, Ot Z79.89 9 OTHER SHELTER (CURRENT) DRUG THERAPY 09/14/2019 MATILDE ADAMS MD, Ot Z80.1 FAMILY HISTORY OF MALIG NEOPLASM OF TRAC 09/14/2019 MATILDE ADAMS MD, Ot Z80.3 FAMILY HISTORY OF MALIGNANT NEOPLASM OF 09/14/2019 MATILDE ADAMS MD, Ot Z82.49 FAMILY HX OF ISCHEM HEART DIS AND OTH DI 09/14/2019 MATILDE DAAMS MD, Ot Z88.5 ALLERGY STATUS TO NARCOTIC AGENT STATUS 09/14/2019 MATILDE ADAMS MD, Ot Z88.8 ALLERGY STATUS TO OTH DRUG/MEDS/BIOL SUB 09/14/2019 MATILDE ADAMS MD, Ot Z90.89 ACQUIRED ABSENCE OF OTHER ORGANS 09/14/2019 MATILDE ADAMS MD, Ot Z98.84 BARIATRIC SURGERY STATUS 09/16/2019 MATILDE ADAMS MD, Ot E03.9 HYPOTHYROIDISM, UNSPECIFIED 09/16/2019 MATILDE ADAMS MD, Ot E66.01 MORBID (SEVERE) OBESITY DUE TO EXCESS CA 09/16/2019 MATILDE ADAMS MD, Ot E78.00 PURE HYPERCHOLESTEROLEMIA, UNSPECIFIED 09/16/2019 MATILDE ADAMS MD, Ot E78.5 HYPERLIPIDEMIA, UNSPECIFIED 09/16/2019 MATILDE ADAMS MD, Ot F32.9 MAJOR DEPRESSIVE DISORDER, SINGLE EPISOD 09/16/2019 MATILDE ADAMS MD, Ot F41.9 ANXIETY DISORDER, UNSPECIFIED 09/16/2019 MATILDE ADAMS MD, Ot G47.33 OBSTRUCTIVE SLEEP APNEA (ADULT) (PEDIATR 09/16/2019 MATILDE ADAMS MD, Ot G62.9 POLYNEUROPATHY, UNSPECIFIED 09/16/2019 MATILDE ADAMS MD, Ot I10 ESSENTIAL (PRIMARY) HYPERTENSION 09/16/2019 MATILDE ADAMS MD, Ot J44.9 CHRONIC OBSTRUCTIVE PULMONARY DISEASE, U 09/16/2019 MATILDE ADAMS MD, Ot K21.9 GASTRO-ESOPHAGEAL REFLUX DISEASE WITHOUT 09/16/2019 MATILDE ADAMS MD, Ot K63.2 FISTULA OF INTESTINE 09/16/2019 MATILDE ADAMS MD, Ot M19.90 UNSPECIFIED OSTEOARTHRITIS, UNSPECIFIED 09/16/2019 MATILDE ADAMS MD, Ot T85.79 XA INFECT/INFLM REACTION DUE TO OTH INT PRO 09/16/2019 MATILDE ADAMS MD, Ot Z68.39 BODY MASS INDEX (BMI) 39.0-39.9, ADULT 09/16/2019 MATILDE ADAMS MD, Ot Z79.89 9 OTHER SHELTER (CURRENT) DRUG THERAPY 09/16/2019 MATILDE ADAMS MD, Ot Z80.1 FAMILY HISTORY OF MALIG NEOPLASM OF TRAC 09/16/2019 MATILDE ADAMS MD, Ot Z80.3 FAMILY HISTORY OF MALIGNANT NEOPLASM OF 09/16/2019 MATILDE ADAMS MD, Ot Z82.49 FAMILY HX OF ISCHEM HEART DIS AND OTH DI 09/16/2019 MATILDE ADAMS MD, Ot Z88.5 ALLERGY STATUS TO NARCOTIC AGENT STATUS 09/16/2019 MATILDE ADAMS MD, Ot Z88.8 ALLERGY STATUS TO OTH DRUG/MEDS/BIOL SUB 09/16/2019 MATILDE ADAMS MD, Ot Z90.89 ACQUIRED ABSENCE OF OTHER ORGANS 09/16/2019 MATILDE ADAMS MD, Ot Z98.84 BARIATRIC SURGERY STATUS 09/16/2019 MATILDE ADAMS MD, Ot E03.9 HYPOTHYROIDISM, UNSPECIFIED 09/16/2019 MATILDE ADAMS MD, Ot E66.01 MORBID (SEVERE) OBESITY DUE TO EXCESS CA 09/16/2019 MATILDE ADAMS MD, Ot E78.00 PURE HYPERCHOLESTEROLEMIA, UNSPECIFIED 09/16/2019 MATILDE ADAMS MD, Ot E78.5 HYPERLIPIDEMIA, UNSPECIFIED 09/16/2019 MATILDE ADAMS MD, Ot F32.9 MAJOR DEPRESSIVE DISORDER, SINGLE EPISOD 09/16/2019 MATILDE ADAMS MD, Ot F41.9 ANXIETY DISORDER, UNSPECIFIED 09/16/2019 MATILDE ADAMS MD, Ot G47.33 OBSTRUCTIVE SLEEP APNEA (ADULT) (PEDIATR 09/16/2019 MATILDE ADAMS MD, Ot G62.9 POLYNEUROPATHY, UNSPECIFIED 09/16/2019 MATILDE ADAMS MD, Ot I10 ESSENTIAL (PRIMARY) HYPERTENSION 09/16/2019 MATILDE ADAMS MD, Ot J44.9 CHRONIC OBSTRUCTIVE PULMONARY DISEASE, U 09/16/2019 MATILDE ADAMS MD, Ot K21.9 GASTRO-ESOPHAGEAL REFLUX DISEASE WITHOUT 09/16/2019 MATILDE ADAMS MD, Ot K63.2 FISTULA OF INTESTINE 09/16/2019 MATILDE ADAMS MD, Ot M19.90 UNSPECIFIED OSTEOARTHRITIS, UNSPECIFIED 09/16/2019 MATILDE ADAMS MD, Ot T85.79 XA INFECT/INFLM REACTION DUE TO OTH INT PRO 09/16/2019 MATILDE ADAMS MD, Ot Z68.39 BODY MASS INDEX (BMI) 39.0-39.9, ADULT 09/16/2019 MATILDE ADAMS MD, Ot Z79.89 9 OTHER SHELTER (CURRENT) DRUG THERAPY 09/16/2019 MATILDE ADAMS MD, Ot Z80.1 FAMILY HISTORY OF MALIG NEOPLASM OF TRAC 09/16/2019 MATILDE ADAMS MD, Ot Z80.3 FAMILY HISTORY OF MALIGNANT NEOPLASM OF 09/16/2019 MATILDE ADAMS MD, Ot Z82.49 FAMILY HX OF ISCHEM HEART DIS AND OTH DI 09/16/2019 MATILDE ADAMS MD, Ot Z88.5 ALLERGY STATUS TO NARCOTIC AGENT STATUS 09/16/2019 MATILDE ADAMS MD, Ot Z88.8 ALLERGY STATUS TO OTH DRUG/MEDS/BIOL SUB 09/16/2019 MATILDE ADAMS MD, Ot Z90.89 ACQUIRED ABSENCE OF OTHER ORGANS 09/16/2019 MATILDE ADAMS MD, Ot Z98.84 BARIATRIC SURGERY STATUS 09/17/2019 AUDREY AYOUB APRN Ot G47.33 OBSTRUCTIVE SLEEP APNEA (ADULT) (PEDIATR 09/17/2019 AUDREY AYOUB APRN Ot I26.99 OTHER PULMONARY EMBOLISM WITHOUT ACUTE C 09/17/2019 AUDREY AYOUB APRN Ot J42 UNSPECIFIED CHRONIC BRONCHITIS 09/17/2019 AUDREY AYOUB APRN Ot J45.909 UNSPECIFIED ASTHMA, UNCOMPLICATED 09/17/2019 AUDREY AYOUB APRN Ot J98.4 OTHER DISORDERS OF LUNG 09/17/2019 AUDREY AYOUB APRN Ot R09.02 HYPOXEMIA 09/17/2019 AUDREY AYOUB APRN Ot R94.2 ABNORMAL RESULTS OF PULMONARY FUNCTION S Procedures Code Description [place] [address] OFFI CE/OUTPATIENT VISIT NEW 04/03/2018 [id number] OFFI CE/OUTPATIENT VISIT EST 08/06/2018 [id number] EX CISION OF STOMACH, PERCUTANEOUS ENDOSC 08/30/2018 [id number] IN SERTION OF INFUSION DEV INTO SUP VENA 09/06/2018 [id number] EX CISION OF TRANSVERSE COLON, OPEN APPRO 01/30/2019 [id number] RE LEASE SMALL INTESTINE, PERCUTANEOUS EN 01/30/2019 [id number] RE LEASE TRANSVERSE COLON, PERCUTANEOUS E 01/30/2019 [id number] RE PAIR SMALL INTESTINE, OPEN APPROACH 01/30/2019 [id number] ROUT INE VENIPUNCTURE 06/14/2019 76976 X-RA Y EXAM OF HAND 06/14/2019 97085 RBC SED RATE NonAUTOMATED 06/14/2019 68700 C-RE ACTIVE PROTEIN 06/14/2019 44608 CCP ANTIBODY 06/14/2019 94542 OFFI CE/OUTPATIENT VISIT EST 06/14/2019 Results Test Result Range Arterial blood gas measurement - 8 16:50 Blood pCO2 47 mm[Hg] 35-45 Blood pO2 81 mm[Hg] 79-93 Arterial blood bicarbonate measurement (moles/volume) 27 mmol/L 23-27 Arterial blood base excess by calculation 2.8 mmol /L -2.5-2.5 Arterial blood oxygen saturation measurement 97 % 94-100 * Inhaled oxygen flow rate 3L NRG Arterial blood pH measurement with patient temperature correction 7.39 7.37-7.43 Arterial blood carbon dioxide, total measurement (mole s/volume) 28.9 mmol/L 21.0-31.0 Body site RT RAD NRG Assessment of wrist artery patency prior to arterial p uncture YES-POS NRG Setting of ventilation mode NO NR G Measurement of body temperature 98.2 NRG Arterial blood gas measurement - 8 11:24 Blood pCO2 41 mm[Hg] 35-45 Blood pO2 77 mm[Hg] 79-93 Arterial blood bicarbonate measurement (moles/volume) 26 mmol/L 23-27 Arterial blood base excess by calculation 2.1 mmol /L -2.5-2.5 Arterial blood oxygen saturation measurement 97 % 94-100 * Inhaled oxygen flow rate 3L NRG Arterial blood pH measurement with patient temperature correction 7.42 7.37-7.43 Arterial blood carbon dioxide, total measurement (mole s/volume) 27.5 mmol/L 21.0-31.0 Body site RR NRG Assessment of wrist artery patency prior to arterial p uncture YES-POS NRG Setting of ventilation mode NO NR G Measurement of body temperature 98.0 NRG Methicillin resistant Staphylococcus aur eus (MRSA) screening culture - 08/27/18 13:05 MRSA SCREEN RESULT MRSA ISOLATED NRG Complete blood count (CBC) with automate d white blood cell (WBC) differential - 08/27/18 13:10 Blood leukocytes automated count (number/volume) 7.7 10*3/uL 4.3-11.0 Blood erythrocytes automated count (number/volume) 5.32 10*6/uL 4.35-5.85 Venous blood hemoglobin measurement (mass/volume) 14.2 g/dL 11.5-16.0 Blood hematocrit (volume fraction) 44 % 35-52 Automated erythrocyte mean corpuscular volume 83 [ foz_us] 80-99 Automated erythrocyte mean corpuscular h emoglobin (mass per erythrocyte) 27 pg 25-34 Automated erythrocyte mean corpuscular h emoglobin concentration measurement (mass/volume) 32 g/dL 32-36 Automated erythrocyte distribution width ratio 13. 8 % 10.0- 14.5 Automated blood platelet count (count/volume) 286 10*3/uL [...] 10*3 1.0-4.0 Blood monocytes automated count (number/volume) 0. 5 10*3 0.0-1.0 Automated eosinophil count 0.2 10*3/uL 0 .0-0.3 Automated blood basophil count (count/volume) 0.0 10*3/uL 0.0-0.1 Automated blood complete blood count (he mogram) panel - 08/31/18 04:53 Blood leukocytes automated count (number/volume) 8.9 10*3/uL 4.3-11.0 Blood erythrocytes automated count (number/volume) 4.50 10*6/uL 4.35-5.85 Venous blood hemoglobin measurement (mass/volume) 11.9 g/dL 11.5-16.0 Blood hematocrit (volume fraction) 38 % 35-52 Automated erythrocyte mean corpuscular volume 84 [ foz_us] 80-99 Automated erythrocyte mean corpuscular h emoglobin (mass per erythrocyte) 26 pg 25-34 Automated erythrocyte mean corpuscular h emoglobin concentration measurement (mass/volume) 32 g/dL 32-36 Automated erythrocyte distribution width ratio 13. 6 % 10.0- 14.5 Automated blood platelet count (count/volume) 209 10*3/uL [...] 5-14 Serum or plasma urea nitrogen measurement (mass/volume ) 9 mg/dL 7-18 Serum or plasma creatinine measurement (mass/volume) 0.68 mg/dL 0.60-1.30 Serum or plasma urea nitrogen/creatinine mass ratio 13 NRG Serum or plasma creatinine measurement w ith calculation of estimated glomerular filtration rate > NRG Serum or plasma glucose measurement (mass/volume) 99 mg/dL 70-105 Serum or plasma calcium measurement (mass/volume) 9.2 mg/dL 8.5-10.1 Serum or plasma total bilirubin measurement (mass/volu me) 0.4 mg/dL 0.1-1.0 Serum or plasma alkaline phosphatase shanda surement (enzymatic activity/volume) 87 U/L 40-136 Serum or plasma aspartate aminotransfera se measurement (enzymatic activity/volume) 41 U/L 5-34 Serum or plasma alanine aminotransferase measurement (enzymatic activity/volume) 49 U/L 0-55 Serum or plasma protein measurement (mass/volume) 6.5 g/dL 6.4-8.2 Serum or plasma albumin measurement (mass/volume) 3.8 g/dL 3.2-4.5 CALCIUM CORRECTED 9.4 mg/dL 8.5-10.1 Influenza virus A and B antigen detectio n - 08/31/18 23:45 FLU RESULT NEGATIVE FOR INFLUENZA A AND B ANTIGENS BY IA [facility] Bacterial blood culture - 09/01/18 00:13 Bacterial blood culture [facility] Complete blood count (CBC) with automate d white blood cell (WBC) differential - 09/01/18 00:14 Blood leukocytes automated count (number/volume) 13.8 10*3/uL 4.3-11.0 Blood erythrocytes automated count (number/volume) 4.53 10*6/uL 4.35-5.85 Venous blood hemoglobin measurement (mass/volume) 11.9 g/dL 11.5-16.0 Blood hematocrit (volume fraction) 38 % 35-52 Automated erythrocyte mean corpuscular volume 84 [ foz_us] 80-99 Automated erythrocyte mean corpuscular h emoglobin (mass per erythrocyte) 26 pg 25-34 Automated erythrocyte mean corpuscular h emoglobin concentration measurement (mass/volume) 31 g/dL 32-36 Automated erythrocyte distribution width ratio 13. 7 % 10.0- 14.5 Automated blood platelet count (count/volume) 208 10*3/uL [...] 10*3 1.0-4.0 Blood monocytes automated count (number/volume) 1. 2 10*3 0.0-1.0 Automated eosinophil count 0.0 10*3/uL 0 .0-0.3 Automated blood basophil count (count/volume) 0.0 10*3/uL 0.0-0.1 Blood lactic acid measurement (moles/vol ume) - 09/01/18 00:14 Blood lactic acid measurement (moles/volume) 0.70 mmol/L 0.50-2.00 PT panel in platelet poor plasma by coag ulation assay - 09/01/18 00:14 Prothrombin time (PT) in platelet poor plasma by coagu lation assay 13.8 s 12.2-14.7 INR in platelet poor plasma or blood by coagulation as say 1.1 0.8-1.4 Activated partial thromboplastin time (a PTT) in platelet poor plasma bycoagulation assay - 09/01/18 00:14 Activated partial thromboplastin time (a PTT) in platelet poor plasma bycoagulation assay 34 s 24-35 Comprehensive metabolic panel - 09/01/18 00:14 Serum or plasma sodium measurement (moles/volume) 140 mmol/L 135-145 Serum or plasma potassium measurement (moles/volume) 4.2 mmol/L 3.6-5.0 Serum or plasma chloride measurement (moles/volume) 105 mmol/L 98-107 Carbon dioxide 24 mmol/L 21-32 Serum or plasma anion gap determination (moles/volume) 11 mmol/L 5-14 Serum or plasma urea nitrogen measurement (mass/volume ) 7 mg/dL 7-18 Serum or plasma creatinine measurement (mass/volume) 0.70 mg/dL 0.60-1.30 Serum or plasma urea nitrogen/creatinine mass ratio 10 NRG Serum or plasma creatinine measurement w ith calculation of estimated glomerular filtration rate > NRG Serum or plasma glucose measurement (mass/volume) 135 mg/dL 70-105 Serum or plasma calcium measurement (mass/volume) 9.4 mg/dL 8.5-10.1 Serum or plasma total bilirubin measurement (mass/volu me) 0.7 mg/dL 0.1-1.0 Serum or plasma alkaline phosphatase shanda surement (enzymatic activity/volume) 93 U/L 40-136 Serum or plasma aspartate aminotransfera se measurement (enzymatic activity/volume) 28 U/L 5-34 Serum or plasma alanine aminotransferase measurement (enzymatic activity/volume) 39 U/L 0-55 Serum or plasma protein measurement (mass/volume) 6.5 g/dL 6.4-8.2 Serum or plasma albumin measurement (mass/volume) 3.8 g/dL 3.2-4.5 CALCIUM CORRECTED 9.6 mg/dL 8.5-10.1 Complete urinalysis with reflex to cultu re - 09/01/18 00:29 Urine color determination YELLOW NRG Urine clarity determination CLEAR NR G Urine pH measurement by test strip 6 5-9 Specific gravity of urine by test strip 1.015 1.016-1.022 Urine protein assay by test strip, semi-quantitative 1+ NEGATIVE Urine glucose detection by automated test strip NE GATIVE NEGATIVE Erythrocytes detection in urine sediment by light micr oscopy NEGATIVE NEGATIVE Urine ketones detection by automated test strip 4+ NEGATIVE Urine nitrite detection by test strip NEGATIVE NEGATIVE Urine total bilirubin detection by test strip NEGA TIVE NEGATIVE Urine urobilinogen measurement by automated test strip (mass/volume) 1 mg/dL NORMAL Urine leukocyte esterase detection by dipstick 1+ NEGATIVE Automated urine sediment erythrocyte cou nt by microscopy (number/high power field) NONE NRG Automated urine sediment leukocyte count by microscopy (number/high power field) [HPF] NRG Bacteria detection in urine sediment by light microsco py TRACE NRG Squamous epithelial cells detection in u rine sediment by light microscopy 5-10 NRG Crystals detection in urine sediment by light microsco py NONE NRG Casts detection in urine sediment by light microscopy NONE NRG Mucus detection in urine sediment by light microscopy NEGATIVE NRG Complete urinalysis with reflex to culture NO NRG Bacterial urine culture - 09/01/18 00:29 Bacterial urine culture NG NRG Automated blood complete blood count (he mogram) panel - 09/06/18 15:15 Blood leukocytes automated count (number/volume) 6.8 10*3/uL 4.3-11.0 Blood erythrocytes automated count (number/volume) 3.77 10*6/uL 4.35-5.85 Venous blood hemoglobin measurement (mass/volume) 9.7 g/dL 11.5-16.0 Blood hematocrit (volume fraction) 31 % 35-52 Automated erythrocyte mean corpuscular volume 83 [ foz_us] 80-99 Automated erythrocyte mean corpuscular h emoglobin (mass per erythrocyte) 26 pg 25-34 Automated erythrocyte mean corpuscular h emoglobin concentration measurement (mass/volume) 31 g/dL 32-36 Automated erythrocyte distribution width ratio 14. 1 % 10.0- 14.5 Automated blood platelet count (count/volume) 268 10*3/uL 130-400 Automated blood platelet mean volume measurement 10.6 [foz_us] 7.4-10.4 PT panel in platelet poor plasma by coag ulation assay - 09/06/18 15:15 Prothrombin time (PT) in platelet poor plasma by coagu lation assay 14.0 s 12.2-14.7 INR in platelet poor plasma or blood by coagulation as say 1.1 0.8-1.4 Comprehensive metabolic panel - 09/06/18 15:15 Serum or plasma sodium measurement (moles/volume) 141 mmol/L 135-145 Serum or plasma potassium measurement (moles/volume) 3.4 mmol/L 3.6-5.0 Serum or plasma chloride measurement (moles/volume) 100 mmol/L 98-107 Carbon dioxide 30 mmol/L 21-32 Serum or plasma anion gap determination (moles/volume) 11 mmol/L 5-14 Serum or plasma urea nitrogen measurement (mass/volume ) 10 mg/dL 7-18 Serum or plasma creatinine measurement (mass/volume) 0.63 mg/dL 0.60-1.30 Serum or plasma urea nitrogen/creatinine mass ratio 16 NRG Serum or plasma creatinine measurement w ith calculation of estimated glomerular filtration rate > NRG Serum or plasma glucose measurement (mass/volume) 104 mg/dL 70-105 Serum or plasma calcium measurement (mass/volume) 9.5 mg/dL 8.5-10.1 Serum or plasma total bilirubin measurement (mass/volu me) 0.4 mg/dL 0.1-1.0 Serum or plasma alkaline phosphatase shanda surement (enzymatic activity/volume) 95 U/L 40-136 Serum or plasma aspartate aminotransfera se measurement (enzymatic activity/volume) 21 U/L 5-34 Serum or plasma alanine aminotransferase measurement (enzymatic activity/volume) 16 U/L 0-55 Serum or plasma protein measurement (mass/volume) 6.4 g/dL 6.4-8.2 Serum or plasma albumin measurement (mass/volume) 3.2 g/dL 3.2-4.5 CALCIUM CORRECTED 10.1 mg/dL 8.5-10.1 Serum or plasma phosphate measurement (m ass/volume) - 09/06/18 15:15 Serum or plasma phosphate measurement (mass/volume) 3.4 mg/dL 2.3-4.7 Magnesium - 09/06/18 15:15 Magnesium 2.2 mg/dL 1.8-2.4 Serum or plasma triglyceride measurement (mass/volume) - 09/06/18 15:15 Serum or plasma triglyceride measurement (mass/volume) 122 mg/dL <150 PREALBUMIN - 09/06/18 15:15 PREALBUM 3.1 % 18.0-37.0 Automated blood complete blood count (he mogram) panel - 09/07/18 06:35 Blood leukocytes automated count (number/volume) 5.7 10*3/uL 4.3-11.0 Blood erythrocytes automated count (number/volume) 3.76 10*6/uL 4.35-5.85 Venous blood hemoglobin measurement (mass/volume) 9.7 g/dL 11.5-16.0 Blood hematocrit (volume fraction) 32 % 35-52 Automated erythrocyte mean corpuscular volume 85 [ foz_us] 80-99 Automated erythrocyte mean corpuscular h emoglobin (mass per erythrocyte) 26 pg 25-34 Automated erythrocyte mean corpuscular h emoglobin concentration measurement (mass/volume) 31 g/dL 32-36 Automated erythrocyte distribution width ratio 13. 9 % 10.0- 14.5 Automated blood platelet count (count/volume) 266 10*3/uL 130-400 Automated blood platelet mean volume measurement 10.6 [foz_us] 7.4-10.4 PT panel in platelet poor plasma by coag ulation assay - 09/07/18 06:35 Prothrombin time (PT) in platelet poor plasma by coagu lation assay 14.4 s 12.2-14.7 INR in platelet poor plasma or blood by coagulation as say 1.1 0.8-1.4 Comprehensive metabolic panel - 09/07/18 06:35 Serum or plasma sodium measurement (moles/volume) 141 mmol/L 135-145 Serum or plasma potassium measurement (moles/volume) 3.6 mmol/L 3.6-5.0 Serum or plasma chloride measurement (moles/volume) 101 mmol/L 98-107 Carbon dioxide 29 mmol/L 21-32 Serum or plasma anion gap determination (moles/volume) 11 mmol/L 5-14 Serum or plasma urea nitrogen measurement (mass/volume ) 11 mg/dL 7-18 Serum or plasma creatinine measurement (mass/volume) 0.65 mg/dL 0.60-1.30 Serum or plasma urea nitrogen/creatinine mass ratio 17 NRG Serum or plasma creatinine measurement w ith calculation of estimated glomerular filtration rate > NRG Serum or plasma glucose measurement (mass/volume) 117 mg/dL 70-105 Serum or plasma calcium measurement (mass/volume) 9.6 mg/dL 8.5-10.1 Serum or plasma total bilirubin measurement (mass/volu me) 0.3 mg/dL 0.1-1.0 Serum or plasma alkaline phosphatase shanda surement (enzymatic activity/volume) 84 U/L 40-136 Serum or plasma aspartate aminotransfera se measurement (enzymatic activity/volume) 19 U/L 5-34 Serum or plasma alanine aminotransferase measurement (enzymatic activity/volume) 17 U/L 0-55 Serum or plasma protein measurement (mass/volume) 6.2 g/dL 6.4-8.2 Serum or plasma albumin measurement (mass/volume) 3.2 g/dL 3.2-4.5 CALCIUM CORRECTED 10.2 mg/dL 8.5-10.1 Serum or plasma phosphate measurement (m ass/volume) - 09/07/18 06:35 Serum or plasma phosphate measurement (mass/volume) 3.7 mg/dL 2.3-4.7 Magnesium - 09/07/18 06:35 Magnesium 2.2 mg/dL 1.8-2.4 Serum or plasma triglyceride measurement (mass/volume) - 09/07/18 06:35 Serum or plasma triglyceride measurement (mass/volume) 123 mg/dL <150 PREALBUMIN - 09/07/18 06:35 PREALBUM 3.5 % 18.0-37.0 Serum or plasma phosphate measurement (m ass/volume) - 09/07/18 15:45 Serum or plasma phosphate measurement (mass/volume) 3.3 mg/dL 2.3-4.7 Magnesium - 09/07/18 15:45 Magnesium 2.2 mg/dL 1.8-2.4 Capillary blood glucose measurement by g lucometer (mass/volume) - 09/07/18 18:19 Capillary blood glucose measurement by glucometer (mas s/volume) 115 mg/dL 70-110 Capillary blood glucose measurement by g lucometer (mass/volume) - 09/07/18 23:31 Capillary blood glucose measurement by glucometer (mas s/volume) 131 mg/dL 70-110 Capillary blood glucose measurement by g lucometer (mass/volume) - 09/08/18 05:26 Capillary blood glucose measurement by glucometer (mas s/volume) 132 mg/dL 70-110 Comprehensive metabolic panel - 09/08/18 06:40 Serum or plasma sodium measurement (moles/volume) 143 mmol/L 135-145 Serum or plasma potassium measurement (moles/volume) 4.6 mmol/L 3.6-5.0 Serum or plasma chloride measurement (moles/volume) 106 mmol/L 98-107 Carbon dioxide 29 mmol/L 21-32 Serum or plasma anion gap determination (moles/volume) 8 mmol/L 5-14 Serum or plasma urea nitrogen measurement (mass/volume ) 12 mg/dL 7-18 Serum or plasma creatinine measurement (mass/volume) 0.70 mg/dL 0.60-1.30 Serum or plasma urea nitrogen/creatinine mass ratio 17 NRG Serum or plasma creatinine measurement w ith calculation of estimated glomerular filtration rate > NRG Serum or plasma glucose measurement (mass/volume) 118 mg/dL 70-105 Serum or plasma calcium measurement (mass/volume) 9.4 mg/dL 8.5-10.1 Serum or plasma total bilirubin measurement (mass/volu me) 0.2 mg/dL 0.1-1.0 Serum or plasma alkaline phosphatase shanda surement (enzymatic activity/volume) 81 U/L 40-136 Serum or plasma aspartate aminotransfera se measurement (enzymatic activity/volume) 19 U/L 5-34 Serum or plasma alanine aminotransferase measurement (enzymatic activity/volume) 16 U/L 0-55 Serum or plasma protein measurement (mass/volume) 6.3 g/dL 6.4-8.2 Serum or plasma albumin measurement (mass/volume) 3.2 g/dL 3.2-4.5 CALCIUM CORRECTED 10.0 mg/dL 8.5-10.1 Serum or plasma phosphate measurement (m ass/volume) - 09/08/18 06:40 Serum or plasma phosphate measurement (mass/volume) 3.5 mg/dL 2.3-4.7 Magnesium - 09/08/18 06:40 Magnesium 2.4 mg/dL 1.8-2.4 Serum or plasma triglyceride measurement (mass/volume) - 09/08/18 06:40 Serum or plasma triglyceride measurement (mass/volume) 130 mg/dL <150 Capillary blood glucose measurement by g lucometer (mass/volume) - 09/08/18 12:50 Capillary blood glucose measurement by glucometer (mas s/volume) 102 mg/dL 70-110 Capillary blood glucose measurement by g lucometer (mass/volume) - 09/08/18 17:49 Capillary blood glucose measurement by glucometer (mas s/volume) 122 mg/dL 70-110 Capillary blood glucose measurement by g lucometer (mass/volume) - 09/08/18 23:54 Capillary blood glucose measurement by glucometer (mas s/volume) 117 mg/dL 70-110 Capillary blood glucose measurement by g lucometer (mass/volume) - 09/09/18 05:27 Capillary blood glucose measurement by glucometer (mas s/volume) 121 mg/dL 70-110 Capillary blood glucose measurement by g lucometer (mass/volume) - 09/09/18 12:12 Capillary blood glucose measurement by glucometer (mas s/volume) 99 mg/dL 70-110 Capillary blood glucose measurement by g lucometer (mass/volume) - 09/09/18 17:48 Capillary blood glucose measurement by glucometer (mas s/volume) 113 mg/dL 70-110 Capillary blood glucose measurement by g lucometer (mass/volume) - 09/10/18 05:11 Capillary blood glucose measurement by glucometer (mas s/volume) 124 mg/dL 70-110 Capillary blood glucose measurement by g lucometer (mass/volume) - 09/11/18 05:17 Capillary blood glucose measurement by glucometer (mas s/volume) 149 mg/dL 70-110 Automated blood complete blood count (he mogram) panel - 09/11/18 06:20 Blood leukocytes automated count (number/volume) 8.7 10*3/uL 4.3-11.0 Blood erythrocytes automated count (number/volume) 4.26 10*6/uL 4.35-5.85 Venous blood hemoglobin measurement (mass/volume) 10.9 g/dL 11.5-16.0 Blood hematocrit (volume fraction) 36 % 35-52 Automated erythrocyte mean corpuscular volume 85 [ foz_us] 80-99 Automated erythrocyte mean corpuscular h emoglobin (mass per erythrocyte) 26 pg 25-34 Automated erythrocyte mean corpuscular h emoglobin concentration measurement (mass/volume) 30 g/dL 32-36 Automated erythrocyte distribution width ratio 14. 0 % 10.0- 14.5 Automated blood platelet count (count/volume) 283 10*3/uL [...] 5-14 Serum or plasma urea nitrogen measurement (mass/volume ) 19 mg/dL 7-18 Serum or plasma creatinine measurement (mass/volume) 0.77 mg/dL 0.60-1.30 Serum or plasma urea nitrogen/creatinine mass ratio 25 NRG Serum or plasma creatinine measurement w ith calculation of estimated glomerular filtration rate > NRG Serum or plasma glucose measurement (mass/volume) 111 mg/dL 70-105 Serum or plasma calcium measurement (mass/volume) 9.7 mg/dL 8.5-10.1 Serum or plasma total bilirubin measurement (mass/volu me) 0.3 mg/dL 0.1-1.0 Serum or plasma alkaline phosphatase shanda surement (enzymatic activity/volume) 82 U/L 40-136 Serum or plasma aspartate aminotransfera se measurement (enzymatic activity/volume) 20 U/L 5-34 Serum or plasma alanine aminotransferase measurement (enzymatic activity/volume) 17 U/L 0-55 Serum or plasma protein measurement (mass/volume) 6.5 g/dL 6.4-8.2 Serum or plasma albumin measurement (mass/volume) 3.3 g/dL 3.2-4.5 CALCIUM CORRECTED 10.3 mg/dL 8.5-10.1 Serum or plasma phosphate measurement (m ass/volume) - 09/12/18 05:00 Serum or plasma phosphate measurement (mass/volume) 4.0 mg/dL 2.3-4.7 Magnesium - 09/12/18 05:00 Magnesium 2.3 mg/dL 1.8-2.4 Capillary blood glucose measurement by g lucometer (mass/volume) - 09/12/18 05:05 Capillary blood glucose measurement by glucometer (mas s/volume) 106 mg/dL 70-110 Capillary blood glucose measurement by g lucometer (mass/volume) - 09/13/18 06:15 Capillary blood glucose measurement by glucometer (mas s/volume) 134 mg/dL 70-110 Capillary blood glucose measurement by g lucometer (mass/volume) - 09/14/18 05:15 Capillary blood glucose measurement by glucometer (mas s/volume) 115 mg/dL 70-110 Automated blood complete blood count (he mogram) panel - 09/14/18 06:46 Blood leukocytes automated count (number/volume) 6.2 10*3/uL 4.3-11.0 Blood erythrocytes automated count (number/volume) 3.99 10*6/uL 4.35-5.85 Venous blood hemoglobin measurement (mass/volume) 10.1 g/dL 11.5-16.0 Blood hematocrit (volume fraction) 34 % 35-52 Automated erythrocyte mean corpuscular volume 85 [ foz_us] 80-99 Automated erythrocyte mean corpuscular h emoglobin (mass per erythrocyte) 25 pg 25-34 Automated erythrocyte mean corpuscular h emoglobin concentration measurement (mass/volume) 30 g/dL 32-36 Automated erythrocyte distribution width ratio 14. 3 % 10.0- 14.5 Automated blood platelet count (count/volume) 301 10*3/uL 130-400 Automated blood platelet mean volume measurement 10.9 [foz_us] 7.4-10.4 Capillary blood glucose measurement by g lucometer (mass/volume) - 09/15/18 05:21 Capillary blood glucose measurement by glucometer (mas s/volume) 119 mg/dL 70-110 Capillary blood glucose measurement by g lucometer (mass/volume) - 09/16/18 05:55 Capillary blood glucose measurement by glucometer (mas s/volume) 118 mg/dL 70-110 Comprehensive metabolic panel - 09/16/18 06:10 Serum or plasma sodium measurement (moles/volume) 143 mmol/L 135-145 Serum or plasma potassium measurement (moles/volume) 4.1 mmol/L 3.6-5.0 Serum or plasma chloride measurement (moles/volume) 107 mmol/L 98-107 Carbon dioxide 27 mmol/L 21-32 Serum or plasma anion gap determination (moles/volume) 9 mmol/L 5-14 Serum or plasma urea nitrogen measurement (mass/volume ) 20 mg/dL 7-18 Serum or plasma creatinine measurement (mass/volume) 0.75 mg/dL 0.60-1.30 Serum or plasma urea nitrogen/creatinine mass ratio 27 NRG Serum or plasma creatinine measurement w ith calculation of estimated glomerular filtration rate > NRG Serum or plasma glucose measurement (mass/volume) 108 mg/dL 70-105 Serum or plasma calcium measurement (mass/volume) 9.5 mg/dL 8.5-10.1 Serum or plasma total bilirubin measurement (mass/volu me) 0.3 mg/dL 0.1-1.0 Serum or plasma alkaline phosphatase shanda surement (enzymatic activity/volume) 96 U/L 40-136 Serum or plasma aspartate aminotransfera se measurement (enzymatic activity/volume) 22 U/L 5-34 Serum or plasma alanine aminotransferase measurement (enzymatic activity/volume) 17 U/L 0-55 Serum or plasma protein measurement (mass/volume) 6.7 g/dL 6.4-8.2 Serum or plasma albumin measurement (mass/volume) 3.4 g/dL 3.2-4.5 CALCIUM CORRECTED 10.0 mg/dL 8.5-10.1 Serum or plasma phosphate measurement (m ass/volume) - 09/16/18 06:10 Serum or plasma phosphate measurement (mass/volume) 4.0 mg/dL 2.3-4.7 Magnesium - 09/16/18 06:10 Magnesium 2.2 mg/dL 1.8-2.4 Capillary blood glucose measurement by g lucometer (mass/volume) - 09/17/18 05:20 Capillary blood glucose measurement by glucometer (mas s/volume) 123 mg/dL 70-110 Capillary blood glucose measurement by g lucometer (mass/volume) - 09/18/18 06:03 Capillary blood glucose measurement by glucometer (mas s/volume) 122 mg/dL 70-110 Complete blood count (CBC) with automate d white blood cell (WBC) differential - 12/18/18 17:41 Blood leukocytes automated count (number/volume) 6.6 10*3/uL 4.3-11.0 Blood erythrocytes automated count (number/volume) 4.96 10*6/uL 4.35-5.85 Venous blood hemoglobin measurement (mass/volume) 12.3 g/dL 11.5-16.0 Blood hematocrit (volume fraction) 39 % 35-52 Automated erythrocyte mean corpuscular volume 78 [ foz_us] 80-99 Automated erythrocyte mean corpuscular h emoglobin (mass per erythrocyte) 25 pg 25-34 Automated erythrocyte mean corpuscular h emoglobin concentration measurement (mass/volume) 32 g/dL 32-36 Automated erythrocyte distribution width ratio 15. 0 % 10.0- 14.5 Automated blood platelet count (count/volume) 255 10*3/uL [...] 10*3 1.0-4.0 Blood monocytes automated count (number/volume) 1. 5 10*3 0.0-1.0 Automated eosinophil count 0.1 10*3/uL 0 .0-0.3 Automated blood basophil count (count/volume) 0.0 10*3/uL 0.0-0.1 Comprehensive metabolic panel - 12/18/18 17:41 Serum or plasma sodium measurement (moles/volume) 136 mmol/L 135-145 Serum or plasma potassium measurement (moles/volume) 3.4 mmol/L 3.6-5.0 Serum or plasma chloride measurement (moles/volume) 98 mmol/L 98-107 Carbon dioxide 25 mmol/L 21-32 Serum or plasma anion gap determination (moles/volume) 13 mmol/L 5-14 Serum or plasma urea nitrogen measurement (mass/volume ) 46 mg/dL 7-18 Serum or plasma creatinine measurement (mass/volume) 1.69 mg/dL 0.60-1.30 Serum or plasma urea nitrogen/creatinine mass ratio 27 NRG Serum or plasma creatinine measurement w ith calculation of estimated glomerular filtration rate 31 NRG Serum or plasma glucose measurement (mass/volume) 113 mg/dL 70-105 Serum or plasma calcium measurement (mass/volume) 9.6 mg/dL 8.5-10.1 Serum or plasma total bilirubin measurement (mass/volu me) 0.6 mg/dL 0.1-1.0 Serum or plasma alkaline phosphatase shanda surement (enzymatic activity/volume) 115 U/L 40-136 Serum or plasma aspartate aminotransfera se measurement (enzymatic activity/volume) 13 U/L 5-34 Serum or plasma alanine aminotransferase measurement (enzymatic activity/volume) 14 U/L 0-55 Serum or plasma protein measurement (mass/volume) 6.5 g/dL 6.4-8.2 Serum or plasma albumin measurement (mass/volume) 3.6 g/dL 3.2-4.5 CALCIUM CORRECTED 9.9 mg/dL 8.5-10.1 Lipase - 12/18/18 17:41 Lipase < U/L 8-78 Blood manual differential performed dete ction - 12/18/18 17:41 Blood monocytes/100 leukocytes 18 % NRG Manual blood segmented neutrophils/100 leukocytes 49 % NRG Blood band neutrophils/100 leukocytes 5 % NRG Manual blood lymphocytes/100 leukocytes 13 % NRG Manual eosinophils/100 leukocytes in nose 1 % NRG Blood lymphocytes variant/100 leukocytes 14 % NRG Blood erythrocyte morphology finding identification NORMAL NRG Complete blood count (CBC) with automate d white blood cell (WBC) differential - 12/19/18 05:20 Blood leukocytes automated count (number/volume) 4.3 10*3/uL 4.3-11.0 Blood erythrocytes automated count (number/volume) 4.60 10*6/uL 4.35-5.85 Venous blood hemoglobin measurement (mass/volume) 11.3 g/dL 11.5-16.0 Blood hematocrit (volume fraction) 36 % 35-52 Automated erythrocyte mean corpuscular volume 78 [ foz_us] 80-99 Automated erythrocyte mean corpuscular h emoglobin (mass per erythrocyte) 25 pg 25-34 Automated erythrocyte mean corpuscular h emoglobin concentration measurement (mass/volume) 32 g/dL 32-36 Automated erythrocyte distribution width ratio 15. 3 % 10.0- 14.5 Automated blood platelet count (count/volume) 234 10*3/uL [...] 10*3 1.0-4.0 Blood monocytes automated count (number/volume) 1. 0 10*3 0.0-1.0 Automated eosinophil count 0.1 10*3/uL 0 .0-0.3 Automated blood basophil count (count/volume) 0.0 10*3/uL 0.0-0.1 Comprehensive metabolic panel - 12/19/18 05:20 Serum or plasma sodium measurement (moles/volume) 138 mmol/L 135-145 Serum or plasma potassium measurement (moles/volume) 3.8 mmol/L 3.6-5.0 Serum or plasma chloride measurement (moles/volume) 104 mmol/L 98-107 Carbon dioxide 24 mmol/L 21-32 Serum or plasma anion gap determination (moles/volume) 10 mmol/L 5-14 Serum or plasma urea nitrogen measurement (mass/volume ) 37 mg/dL 7-18 Serum or plasma creatinine measurement (mass/volume) 0.92 mg/dL 0.60-1.30 Serum or plasma urea nitrogen/creatinine mass ratio 40 NRG Serum or plasma creatinine measurement w ith calculation of estimated glomerular filtration rate > NRG Serum or plasma glucose measurement (mass/volume) 118 mg/dL 70-105 Serum or plasma calcium measurement (mass/volume) 9.0 mg/dL 8.5-10.1 Serum or plasma total bilirubin measurement (mass/volu me) 0.4 mg/dL 0.1-1.0 Serum or plasma alkaline phosphatase shanda surement (enzymatic activity/volume) 95 U/L 40-136 Serum or plasma aspartate aminotransfera se measurement (enzymatic activity/volume) 15 U/L 5-34 Serum or plasma alanine aminotransferase measurement (enzymatic activity/volume) 12 U/L 0-55 Serum or plasma protein measurement (mass/volume) 5.6 g/dL 6.4-8.2 Serum or plasma albumin measurement (mass/volume) 3.1 g/dL 3.2-4.5 CALCIUM CORRECTED 9.7 mg/dL 8.5-10.1 Complete blood count (CBC) with automate d white blood cell (WBC) differential - 01/22/19 17:45 Blood leukocytes automated count (number/volume) 6.3 10*3/uL 4.3-11.0 Blood erythrocytes automated count (number/volume) 5.75 10*6/uL 4.35-5.85 Venous blood hemoglobin measurement (mass/volume) 14.2 g/dL 11.5-16.0 Blood hematocrit (volume fraction) 46 % 35-52 Automated erythrocyte mean corpuscular volume 80 [ foz_us] 80-99 Automated erythrocyte mean corpuscular h emoglobin (mass per erythrocyte) 25 pg 25-34 Automated erythrocyte mean corpuscular h emoglobin concentration measurement (mass/volume) 31 g/dL 32-36 Automated erythrocyte distribution width ratio 17. 7 % 10.0- 14.5 Automated blood platelet count (count/volume) 385 10*3/uL [...] 10*3 1.0-4.0 Blood monocytes automated count (number/volume) 0. 9 10*3 0.0-1.0 Automated eosinophil count 0.0 10*3/uL 0 .0-0.3 Automated blood basophil count (count/volume) 0.0 10*3/uL 0.0-0.1 Comprehensive metabolic panel - 01/22/19 17:45 Serum or plasma sodium measurement (moles/volume) 145 mmol/L 135-145 Serum or plasma potassium measurement (moles/volume) 3.9 mmol/L 3.6-5.0 Serum or plasma chloride measurement (moles/volume) 101 mmol/L 98-107 Carbon dioxide 33 mmol/L 21-32 Serum or plasma anion gap determination (moles/volume) 11 mmol/L 5-14 Serum or plasma urea nitrogen measurement (mass/volume ) 22 mg/dL 7-18 Serum or plasma creatinine measurement (mass/volume) 0.83 mg/dL 0.60-1.30 Serum or plasma urea nitrogen/creatinine mass ratio 27 NRG Serum or plasma creatinine measurement w ith calculation of estimated glomerular filtration rate > NRG Serum or plasma glucose measurement (mass/volume) 143 mg/dL 70-105 Serum or plasma calcium measurement (mass/volume) 10.5 mg/dL 8.5-10.1 Serum or plasma total bilirubin measurement (mass/volu me) 0.7 mg/dL 0.1-1.0 Serum or plasma alkaline phosphatase shanda surement (enzymatic activity/volume) 113 U/L 40-136 Serum or plasma aspartate aminotransfera se measurement (enzymatic activity/volume) 21 U/L 5-34 Serum or plasma alanine aminotransferase measurement (enzymatic activity/volume) 22 U/L 0-55 Serum or plasma protein measurement (mass/volume) 7.9 g/dL 6.4-8.2 Serum or plasma albumin measurement (mass/volume) 4.3 g/dL 3.2-4.5 CALCIUM CORRECTED 10.3 mg/dL 8.5-10.1 Serum or plasma amylase measurement (enz ymatic activity/volume) - 01/22/19 17:45 Serum or plasma amylase measurement (enzymatic activit y/volume) 9 U/L 25-125 Lipase - 01/22/19 17:45 Lipase 6 U/L 8-78 Complete urinalysis with reflex to cultu re - 01/22/19 18:13 Urine color determination KIARRA NRG Urine clarity determination SLIGHTLY CLOUDY NRG Urine pH measurement by test strip 6 5-9 Specific gravity of urine by test strip 1.025 1.016-1.022 Urine protein assay by test strip, semi-quantitative 2+ NEGATIVE Urine glucose detection by automated test strip NE GATIVE NEGATIVE Erythrocytes detection in urine sediment by light micr oscopy NEGATIVE NEGATIVE Urine ketones detection by automated test strip 3+ NEGATIVE Urine nitrite detection by test strip NEGATIVE NEGATIVE Urine total bilirubin detection by test strip 1+ NEGATIVE Urine urobilinogen measurement by automated test strip (mass/volume) 4 mg/dL NORMAL Urine leukocyte esterase detection by dipstick NEG ATIVE NEGATIVE Automated urine sediment erythrocyte cou nt by microscopy (number/high power field) NONE NRG Automated urine sediment leukocyte count by microscopy (number/high power field) [HPF] NRG Bacteria detection in urine sediment by light microsco py FEW NRG Squamous epithelial cells detection in u rine sediment by light microscopy 10-25 NRG Crystals detection in urine sediment by light microsco py NONE NRG Casts detection in urine sediment by light microscopy NONE NRG Mucus detection in urine sediment by light microscopy SMALL NRG Complete urinalysis with reflex to culture NO NRG Blood CBC with ordered manual differenti al panel - 01/28/19 12:05 Blood leukocytes automated count (number/volume) 8.0 10*3/uL 4.3-11.0 Blood erythrocytes automated count (number/volume) 5.65 10*6/uL 4.35-5.85 Venous blood hemoglobin measurement (mass/volume) 14.1 g/dL 11.5-16.0 Blood hematocrit (volume fraction) 45 % 35-52 Automated erythrocyte mean corpuscular volume 79 [ foz_us] 80-99 Automated erythrocyte mean corpuscular h emoglobin (mass per erythrocyte) 25 pg 25-34 Automated erythrocyte mean corpuscular h emoglobin concentration measurement (mass/volume) 32 g/dL 32-36 Automated erythrocyte distribution width ratio 17. 8 % 10.0- 14.5 Automated blood platelet count (count/volume) 326 10*3/uL 130-400 Automated blood platelet mean volume measurement 10.5 [foz_us] 7.4-10.4 Automated blood neutrophils/100 leukocytes 70 % 42-75 Automated blood lymphocytes/100 leukocytes 10 % 12-44 Blood monocytes/100 leukocytes 19 % NRG Automated blood eosinophils/100 leukocytes 0 % 0-10 Automated blood basophils/100 leukocytes 0 % 0-10 Blood neutrophils automated count (number/volume) 5.6 10*3 1.8-7.8 Blood lymphocytes automated count (number/volume) 0.8 10*3 1.0-4.0 Blood monocytes automated count (number/volume) 1. 6 10*3 0.0-1.0 Automated eosinophil count 0.0 10*3/uL 0 .0-0.3 Automated blood basophil count (count/volume) 0.0 10*3/uL 0.0-0.1 Manual blood segmented neutrophils/100 leukocytes 66 % NRG Blood band neutrophils/100 leukocytes 4 % NRG Manual blood lymphocytes/100 leukocytes 10 % NRG Manual blood basophils/100 leukocytes 1 % NRG Blood erythrocyte morphology finding identification NORMAL NRG Comprehensive metabolic panel - 01/28/19 12:05 Serum or plasma sodium measurement (moles/volume) 139 mmol/L 135-145 Serum or plasma potassium measurement (moles/volume) 3.7 mmol/L 3.6-5.0 Serum or plasma chloride measurement (moles/volume) 97 mmol/L 98-107 Carbon dioxide 28 mmol/L 21-32 Serum or plasma anion gap determination (moles/volume) 14 mmol/L 5-14 Serum or plasma urea nitrogen measurement (mass/volume ) 23 mg/dL 7-18 Serum or plasma creatinine measurement (mass/volume) 1.09 mg/dL 0.60-1.30 Serum or plasma urea nitrogen/creatinine mass ratio 21 NRG Serum or plasma creatinine measurement w ith calculation of estimated glomerular filtration rate 52 NRG Serum or plasma glucose measurement (mass/volume) 144 mg/dL 70-105 Serum or plasma calcium measurement (mass/volume) 10.2 mg/dL 8.5-10.1 Serum or plasma total bilirubin measurement (mass/volu me) 0.8 mg/dL 0.1-1.0 Serum or plasma alkaline phosphatase shanda surement (enzymatic activity/volume) 118 U/L 40-136 Serum or plasma aspartate aminotransfera se measurement (enzymatic activity/volume) 25 U/L 5-34 Serum or plasma alanine aminotransferase measurement (enzymatic activity/volume) 38 U/L 0-55 Serum or plasma protein measurement (mass/volume) 7.5 g/dL 6.4-8.2 Serum or plasma albumin measurement (mass/volume) 4.3 g/dL 3.2-4.5 CALCIUM CORRECTED 10.0 mg/dL 8.5-10.1 Methicillin resistant Staphylococcus aur eus (MRSA) screening culture - 01/29/19 18:00 Methicillin resistant Staphylococcus aureus (MRSA) scr eening culture NEG NRG Complete blood count (CBC) with automate d white blood cell (WBC) differential - 01/31/19 04:15 Blood leukocytes automated count (number/volume) 16.5 10*3/uL 4.3-11.0 Blood erythrocytes automated count (number/volume) 4.60 10*6/uL 4.35-5.85 Venous blood hemoglobin measurement (mass/volume) 11.5 g/dL 11.5-16.0 Blood hematocrit (volume fraction) 37 % 35-52 Automated erythrocyte mean corpuscular volume 80 [ foz_us] 80-99 Automated erythrocyte mean corpuscular h emoglobin (mass per erythrocyte) 25 pg 25-34 Automated erythrocyte mean corpuscular h emoglobin concentration measurement (mass/volume) 31 g/dL 32-36 Automated erythrocyte distribution width ratio 16. 8 % 10.0- 14.5 Automated blood platelet count (count/volume) 267 10*3/uL 130-400 Automated blood platelet mean volume measurement 10.0 [foz_us] 7.4-10.4 Automated blood neutrophils/100 leukocytes 88 % 42-75 Automated blood lymphocytes/100 leukocytes 6 % 12-44 Blood monocytes/100 leukocytes 7 % 0-12 Automated blood eosinophils/100 leukocytes 0 % 0-10 Automated blood basophils/100 leukocytes 0 % 0-10 Blood neutrophils automated count (number/volume) 14.5 10*3 1.8-7.8 Blood lymphocytes automated count (number/volume) 0.9 10*3 1.0-4.0 Blood monocytes automated count (number/volume) 1. 1 10*3 0.0-1.0 Automated eosinophil count 0.0 10*3/uL 0 .0-0.3 Automated blood basophil count (count/volume) 0.0 10*3/uL 0.0-0.1 Whole blood basic metabolic panel - 11/20 04:15 Serum or plasma sodium measurement (moles/volume) 144 mmol/L 135-145 Serum or plasma potassium measurement (moles/volume) 3.3 mmol/L 3.6-5.0 Serum or plasma chloride measurement (moles/volume) 108 mmol/L 98-107 Carbon dioxide 23 mmol/L 21-32 Serum or plasma anion gap determination (moles/volume) 13 mmol/L 5-14 Serum or plasma urea nitrogen measurement (mass/volume ) 5 mg/dL 7-18 Serum or plasma creatinine measurement (mass/volume) 0.69 mg/dL 0.60-1.30 Serum or plasma urea nitrogen/creatinine mass ratio 7 NRG Serum or plasma creatinine measurement w ith calculation of estimated glomerular filtration rate > NRG Serum or plasma glucose measurement (mass/volume) 120 mg/dL 70-105 Serum or plasma calcium measurement (mass/volume) 8.5 mg/dL 8.5-10.1 Serum or plasma phosphate measurement (m ass/volume) - 01/31/19 04:15 Serum or plasma phosphate measurement (mass/volume) 3.8 mg/dL 2.3-4.7 Magnesium - 01/31/19 04:15 Magnesium 1.7 mg/dL 1.8-2.4 Blood manual differential performed dete ction - 01/31/19 04:15 Blood monocytes/100 leukocytes 4 % NRG Manual blood segmented neutrophils/100 leukocytes 88 % NRG Manual blood lymphocytes/100 leukocytes 8 % NRG Blood anisocytosis detection by light microscopy S LIGHT NRG Blood toxic granules detection by light microscopy 1+ NRG Blood dohle body detection by light microscopy [facility] NRG Blood poikilocytosis detection by light microscopy SLIGHT NRG Blood hypochromia detection by light microscopy [facility] Blood microcytes detection by light microscopy [facility] NRG Complete blood count (CBC) with automate d white blood cell (WBC) differential - 02/01/19 05:55 Blood leukocytes automated count (number/volume) 19.4 10*3/uL 4.3-11.0 Blood erythrocytes automated count (number/volume) 4.02 10*6/uL 4.35-5.85 Venous blood hemoglobin measurement (mass/volume) 10.2 g/dL 11.5-16.0 Blood hematocrit (volume fraction) 32 % 35-52 Automated erythrocyte mean corpuscular volume 80 [ foz_us] 80-99 Automated erythrocyte mean corpuscular h emoglobin (mass per erythrocyte) 25 pg 25-34 Automated erythrocyte mean corpuscular h emoglobin concentration measurement (mass/volume) 32 g/dL 32-36 Automated erythrocyte distribution width ratio 16. 6 % 10.0- 14.5 Automated blood platelet count (count/volume) 272 10*3/uL 130-400 Automated blood platelet mean volume measurement 10.0 [foz_us] 7.4-10.4 Automated blood neutrophils/100 leukocytes 84 % 42-75 Automated blood lymphocytes/100 leukocytes 7 % 12-44 Blood monocytes/100 leukocytes 8 % 0-12 Automated blood eosinophils/100 leukocytes 0 % 0-10 Automated blood basophils/100 leukocytes 0 % 0-10 Blood neutrophils automated count (number/volume) 16.3 10*3 1.8-7.8 Blood lymphocytes automated count (number/volume) 1.4 10*3 1.0-4.0 Blood monocytes automated count (number/volume) 1. 6 10*3 0.0-1.0 Automated eosinophil count 0.1 10*3/uL 0 .0-0.3 Automated blood basophil count (count/volume) 0.0 10*3/uL 0.0-0.1 Comprehensive metabolic panel - 02/01/19 05:55 Serum or plasma sodium measurement (moles/volume) 138 mmol/L 135-145 Serum or plasma potassium measurement (moles/volume) 3.2 mmol/L 3.6-5.0 Serum or plasma chloride measurement (moles/volume) 104 mmol/L 98-107 Carbon dioxide 26 mmol/L 21-32 Serum or plasma anion gap determination (moles/volume) 8 mmol/L 5-14 Serum or plasma urea nitrogen measurement (mass/volume ) 8 mg/dL 7-18 Serum or plasma creatinine measurement (mass/volume) 0.61 mg/dL 0.60-1.30 Serum or plasma urea nitrogen/creatinine mass ratio 13 NRG Serum or plasma creatinine measurement w ith calculation of estimated glomerular filtration rate > NRG Serum or plasma glucose measurement (mass/volume) 138 mg/dL 70-105 Serum or plasma calcium measurement (mass/volume) 8.3 mg/dL 8.5-10.1 Serum or plasma total bilirubin measurement (mass/volu me) 0.4 mg/dL 0.1-1.0 Serum or plasma alkaline phosphatase shanda surement (enzymatic activity/volume) 83 U/L 40-136 Serum or plasma aspartate aminotransfera se measurement (enzymatic activity/volume) 11 U/L 5-34 Serum or plasma alanine aminotransferase measurement (enzymatic activity/volume) 12 U/L 0-55 Serum or plasma protein measurement (mass/volume) 4.7 g/dL 6.4-8.2 Serum or plasma albumin measurement (mass/volume) 2.5 g/dL 3.2-4.5 CALCIUM CORRECTED 9.5 mg/dL 8.5-10.1 Serum or plasma phosphate measurement (m ass/volume) - 02/01/19 05:55 Serum or plasma phosphate measurement (mass/volume) 1.7 mg/dL 2.3-4.7 Magnesium - 02/01/19 05:55 Magnesium 1.5 mg/dL 1.8-2.4 Serum or plasma triglyceride measurement (mass/volume) - 02/01/19 05:55 Serum or plasma triglyceride measurement (mass/volume) 67 mg/dL <150 Blood manual differential performed dete ction - 02/01/19 05:55 Blood monocytes/100 leukocytes 9 % NRG Manual blood segmented neutrophils/100 leukocytes 80 % NRG Blood band neutrophils/100 leukocytes 4 % NRG Manual blood lymphocytes/100 leukocytes 5 % NRG Blood erythrocyte morphology finding identification NORMAL NRG PREALBUMIN - 02/01/19 05:55 PREALBUM 4.5 % 18.0-37.0 Complete urinalysis with reflex to cultu re - 02/01/19 15:00 Urine color determination YELLOW NRG Urine clarity determination CLEAR NR G Urine pH measurement by test strip 6 5-9 Specific gravity of urine by test strip 1.020 1.016-1.022 Urine protein assay by test strip, semi-quantitative 2+ NEGATIVE Urine glucose detection by automated test strip NE GATIVE NEGATIVE Erythrocytes detection in urine sediment by light micr oscopy NEGATIVE NEGATIVE Urine ketones detection by automated test strip NE GATIVE NEGATIVE Urine nitrite detection by test strip NEGATIVE NEGATIVE Urine total bilirubin detection by test strip NEGA TIVE NEGATIVE Urine urobilinogen measurement by automated test strip (mass/volume) NORMAL NORMAL Urine leukocyte esterase detection by dipstick NEG ATIVE NEGATIVE Automated urine sediment erythrocyte cou nt by microscopy (number/high power field) NONE NRG Automated urine sediment leukocyte count by microscopy (number/high power field) RARE NRG Bacteria detection in urine sediment by light microsco py NEGATIVE NRG Squamous epithelial cells detection in u rine sediment by light microscopy NONE NRG Crystals detection in urine sediment by light microsco py NONE NRG Casts detection in urine sediment by light microscopy NONE NRG Mucus detection in urine sediment by light microscopy NEGATIVE NRG Complete urinalysis with reflex to culture NO NRG Capillary blood glucose measurement by g lucometer (mass/volume) - 02/01/19 17:29 Capillary blood glucose measurement by glucometer (mas s/volume) 115 mg/dL 70-110 Capillary blood glucose measurement by g lucometer (mass/volume) - 02/02/19 00:41 Capillary blood glucose measurement by glucometer (mas s/volume) 136 mg/dL 70-110 Capillary blood glucose measurement by g lucometer (mass/volume) - 02/02/19 05:49 Capillary blood glucose measurement by glucometer (mas s/volume) 114 mg/dL 70-110 Complete blood count (CBC) with automate d white blood cell (WBC) differential - 02/02/19 06:08 Blood leukocytes automated count (number/volume) 13.3 10*3/uL 4.3-11.0 Blood erythrocytes automated count (number/volume) 3.59 10*6/uL 4.35-5.85 Venous blood hemoglobin measurement (mass/volume) 8.9 g/dL 11.5-16.0 Blood hematocrit (volume fraction) 29 % 35-52 Automated erythrocyte mean corpuscular volume 81 [ foz_us] 80-99 Automated erythrocyte mean corpuscular h emoglobin (mass per erythrocyte) 25 pg 25-34 Automated erythrocyte mean corpuscular h emoglobin concentration measurement (mass/volume) 31 g/dL 32-36 Automated erythrocyte distribution width ratio 17. 1 % 10.0- 14.5 Automated blood platelet count (count/volume) 243 10*3/uL 130-400 Automated blood platelet mean volume measurement 10.5 [foz_us] 7.4-10.4 Automated blood neutrophils/100 leukocytes 80 % 42-75 Automated blood lymphocytes/100 leukocytes 10 % 12-44 Blood monocytes/100 leukocytes 9 % 0-12 Automated blood eosinophils/100 leukocytes 2 % 0-10 Automated blood basophils/100 leukocytes 0 % 0-10 Blood neutrophils automated count (number/volume) 10.6 10*3 1.8-7.8 Blood lymphocytes automated count (number/volume) 1.3 10*3 1.0-4.0 Blood monocytes automated count (number/volume) 1. 2 10*3 0.0-1.0 Automated eosinophil count 0.3 10*3/uL 0 .0-0.3 Automated blood basophil count (count/volume) 0.0 10*3/uL 0.0-0.1 Comprehensive metabolic panel - 02/02/19 06:08 Serum or plasma sodium measurement (moles/volume) 140 mmol/L 135-145 Serum or plasma potassium measurement (moles/volume) 3.6 mmol/L 3.6-5.0 Serum or plasma chloride measurement (moles/volume) 106 mmol/L 98-107 Carbon dioxide 27 mmol/L 21-32 Serum or plasma anion gap determination (moles/volume) 7 mmol/L 5-14 Serum or plasma urea nitrogen measurement (mass/volume ) 9 mg/dL 7-18 Serum or plasma creatinine measurement (mass/volume) 0.52 mg/dL 0.60-1.30 Serum or plasma urea nitrogen/creatinine mass ratio 17 NRG Serum or plasma creatinine measurement w ith calculation of estimated glomerular filtration rate > NRG Serum or plasma glucose measurement (mass/volume) 105 mg/dL 70-105 Serum or plasma calcium measurement (mass/volume) 8.3 mg/dL 8.5-10.1 Serum or plasma total bilirubin measurement (mass/volu me) 0.4 mg/dL 0.1-1.0 Serum or plasma alkaline phosphatase shanda surement (enzymatic activity/volume) 79 U/L 40-136 Serum or plasma aspartate aminotransfera se measurement (enzymatic activity/volume) 10 U/L 5-34 Serum or plasma alanine aminotransferase measurement (enzymatic activity/volume) 11 U/L 0-55 Serum or plasma protein measurement (mass/volume) 4.9 g/dL 6.4-8.2 Serum or plasma albumin measurement (mass/volume) 2.4 g/dL 3.2-4.5 CALCIUM CORRECTED 9.6 mg/dL 8.5-10.1 Serum or plasma phosphate measurement (m ass/volume) - 02/02/19 06:08 Serum or plasma phosphate measurement (mass/volume) 2.7 mg/dL 2.3-4.7 Magnesium - 02/02/19 06:08 Magnesium 2.1 mg/dL 1.8-2.4 Capillary blood glucose measurement by g lucometer (mass/volume) - 02/02/19 11:02 Capillary blood glucose measurement by glucometer (mas s/volume) 128 mg/dL 70-110 Complete blood count (CBC) with automate d white blood cell (WBC) differential - 02/03/19 05:17 Blood leukocytes automated count (number/volume) 7.1 10*3/uL 4.3-11.0 Blood erythrocytes automated count (number/volume) 3.35 10*6/uL 4.35-5.85 Venous blood hemoglobin measurement (mass/volume) 8.3 g/dL 11.5-16.0 Blood hematocrit (volume fraction) 28 % 35-52 Automated erythrocyte mean corpuscular volume 82 [ foz_us] 80-99 Automated erythrocyte mean corpuscular h emoglobin (mass per erythrocyte) 25 pg 25-34 Automated erythrocyte mean corpuscular h emoglobin concentration measurement (mass/volume) 30 g/dL 32-36 Automated erythrocyte distribution width ratio 17. 6 % 10.0- 14.5 Automated blood platelet count (count/volume) 237 10*3/uL 130-400 Automated blood platelet mean volume measurement 10.2 [foz_us] 7.4-10.4 Automated blood neutrophils/100 leukocytes 72 % 42-75 Automated blood lymphocytes/100 leukocytes 14 % 12-44 Blood monocytes/100 leukocytes 11 % 0-12 Automated blood eosinophils/100 leukocytes 3 % 0-10 Automated blood basophils/100 leukocytes 0 % 0-10 Blood neutrophils automated count (number/volume) 5.1 10*3 1.8-7.8 Blood lymphocytes automated count (number/volume) 1.0 10*3 1.0-4.0 Blood monocytes automated count (number/volume) 0. 8 10*3 0.0-1.0 Automated eosinophil count 0.2 10*3/uL 0 .0-0.3 Automated blood basophil count (count/volume) 0.0 10*3/uL 0.0-0.1 Comprehensive metabolic panel - 02/03/19 05:17 Serum or plasma sodium measurement (moles/volume) 139 mmol/L 135-145 Serum or plasma potassium measurement (moles/volume) 4.2 mmol/L 3.6-5.0 Serum or plasma chloride measurement (moles/volume) 107 mmol/L 98-107 Carbon dioxide 25 mmol/L 21-32 Serum or plasma anion gap determination (moles/volume) 7 mmol/L 5-14 Serum or plasma urea nitrogen measurement (mass/volume ) 11 mg/dL 7-18 Serum or plasma creatinine measurement (mass/volume) 0.54 mg/dL 0.60-1.30 Serum or plasma urea nitrogen/creatinine mass ratio 20 NRG Serum or plasma creatinine measurement w ith calculation of estimated glomerular filtration rate > NRG Serum or plasma glucose measurement (mass/volume) 107 mg/dL 70-105 Serum or plasma calcium measurement (mass/volume) 8.4 mg/dL 8.5-10.1 Serum or plasma total bilirubin measurement (mass/volu me) 0.3 mg/dL 0.1-1.0 Serum or plasma alkaline phosphatase shanda surement (enzymatic activity/volume) 71 U/L 40-136 Serum or plasma aspartate aminotransfera se measurement (enzymatic activity/volume) 10 U/L 5-34 Serum or plasma alanine aminotransferase measurement (enzymatic activity/volume) 10 U/L 0-55 Serum or plasma protein measurement (mass/volume) 5.0 g/dL 6.4-8.2 Serum or plasma albumin measurement (mass/volume) 2.5 g/dL 3.2-4.5 CALCIUM CORRECTED 9.6 mg/dL 8.5-10.1 Serum or plasma phosphate measurement (m ass/volume) - 02/03/19 05:17 Serum or plasma phosphate measurement (mass/volume) 2.8 mg/dL 2.3-4.7 Magnesium - 02/03/19 05:17 Magnesium 1.9 mg/dL 1.8-2.4 Capillary blood glucose measurement by g lucometer (mass/volume) - 02/03/19 05:32 Capillary blood glucose measurement by glucometer (mas s/volume) 104 mg/dL 70-110 Complete blood count (CBC) with automate d white blood cell (WBC) differential - 02/04/19 05:47 Blood leukocytes automated count (number/volume) 4.6 10*3/uL 4.3-11.0 Blood erythrocytes automated count (number/volume) 3.28 10*6/uL 4.35-5.85 Venous blood hemoglobin measurement (mass/volume) 8.3 g/dL 11.5-16.0 Blood hematocrit (volume fraction) 27 % 35-52 Automated erythrocyte mean corpuscular volume 82 [ foz_us] 80-99 Automated erythrocyte mean corpuscular h emoglobin (mass per erythrocyte) 25 pg 25-34 Automated erythrocyte mean corpuscular h emoglobin concentration measurement (mass/volume) 31 g/dL 32-36 Automated erythrocyte distribution width ratio 17. 4 % 10.0- 14.5 Automated blood platelet count (count/volume) 240 10*3/uL 130-400 Automated blood platelet mean volume measurement 10.3 [foz_us] 7.4-10.4 Automated blood neutrophils/100 leukocytes 63 % 42-75 Automated blood lymphocytes/100 leukocytes 18 % 12-44 Blood monocytes/100 leukocytes 14 % 0-12 Automated blood eosinophils/100 leukocytes 4 % 0-10 Automated blood basophils/100 leukocytes 1 % 0-10 Blood neutrophils automated count (number/volume) 2.9 10*3 1.8-7.8 Blood lymphocytes automated count (number/volume) 0.9 10*3 1.0-4.0 Blood monocytes automated count (number/volume) 0. 6 10*3 0.0-1.0 Automated eosinophil count 0.2 10*3/uL 0 .0-0.3 Automated blood basophil count (count/volume) 0.0 10*3/uL 0.0-0.1 Serum or plasma phosphate measurement (m ass/volume) - 02/04/19 05:47 Serum or plasma phosphate measurement (mass/volume) 4.4 mg/dL 2.3-4.7 Magnesium - 02/04/19 05:47 Magnesium 1.8 mg/dL 1.8-2.4 C-Reactive Protein - 06/14/19 08:18 CRP 1.00 mg/dL 0.00-0.49 ESR - 06/14/19 08:18 ESR 25 mm/hr 0-30 Cyclic Citrullinated Peptide - 06/14/19 08:18 Cyclic Citrullinated Peptide 0.20 U/ml 0 .00-6.90 Methicillin resistant Staphylococcus aur eus (MRSA) screening culture - 09/05/19 12:03 Methicillin resistant Staphylococcus aureus (MRSA) scr eening culture NEG NRG Bacteria identification in isolate by an aerobe culture - 09/05/19 15:21 FREE TEXT EXTERNAL PARVIMONAS MICRA NRG QUANTITY OF GROWTH . NRG Bacteria identification in isolate by anaerobe culture SEE COMMEN NRG Gram stain microscopy - 09/05/19 15:21 Gram stain microscopy NO BACTERIA SEEN NRG Bacteria identification in wound by cult ure - 09/05/19 15:21 Bacteria identification in wound by culture [id number] NRG FREE TEXT EXTERNAL FROM BROTH ONLY NRG QUANTITY OF GROWTH . NRG FREE TEXT ENTRY 2 SUSCEPTIBILITY REPORTED 09/10/19 16:05 NRG Encounters ACCT No. Visit Date/Time Discharge Status Pt. Type Provider Facility Loc./Unit Complaint [id number] 08/09/2019 09:33:48 08/09/2019 23:59: 59 CLS Outpatient Sean Marie [id number] 07/12/2019 10:45:59 07/12/2019 23:59: 59 CLS Outpatient Sean Marie [id number] 03/11/2019 14:36:48 03/11/2019 23:59: 59 CLS Outpatient Sean Marie [id number] 02/18/2019 10:59:12 02/18/2019 23:59: 59 CLS Outpatient Sean Marie [id number] 12/31/2018 15:08:25 12/31/2018 23:59: 59 CLS Outpatient Sean Marie [id number] 12/26/2018 10:50:32 12/26/2018 23:59: 59 CLS Outpatient Sean Marie [id number] 12/18/2018 10:41:21 12/18/2018 23:59: 59 CLS Outpatient Kiarra Ramos [id number] 11/01/2018 09:26:26 11/01/2018 23:59: 59 CLS Outpatient Sean Marie [id number] 10/16/2018 14:31:29 10/16/2018 23:59: 59 CLS Outpatient FrankSean [id number] 09/27/2018 16:17:35 09/27/2018 23:59: 59 CLS Outpatient AngusMichelle [id number] 08/13/2018 13:49:27 08/13/2018 23:59: 59 CLS Outpatient Aurora Martin [id number] 08/12/2018 13:55:43 08/12/2018 23:59: 59 CLS Outpatient Aurora Martin [id number] 07/20/2018 16:46:18 07/20/2018 23:59: 59 CLS Outpatient DaniellaflorentinoizzySean [id number] 04/11/2018 13:52:57 04/11/2018 23:59: 59 CLS Outpatient Jacky Fredis [id number] 03/29/2018 15:19:47 03/29/2018 23:59: 59 CLS Outpatient DaniellalingerSean [id number] 03/09/2018 09:51:30 03/09/2018 23:59: 59 CLS Outpatient HetlingerSean [id number] 02/28/2018 08:52:38 02/28/2018 23:59: 59 CLS Outpatient aJcky Fredis [id number] 01/29/2018 17:36:47 01/29/2018 23:59: 59 CLS Outpatient Laine Siegel [id number] 01/19/2018 11:26:07 01/19/2018 23:59: 59 CLS Outpatient HetlingerSean [id number] 10/27/2017 10:00:45 10/27/2017 23:59: 59 CLS Outpatient Jacky Fredis [id number] 10/23/2017 09:29:56 10/23/2017 23:59: 59 CLS Outpatient DaniellalingerSean [id number] 09/20/2017 12:18:44 09/20/2017 23:59: 59 CLS Outpatient Jacky Fredis [id number] 08/31/2017 15:49:06 08/31/2017 23:59: 59 CLS Outpatient Jacky Fredis [id number] 08/09/2017 10:08:51 08/09/2017 23:59: 59 CLS Outpatient HetlingerSean [id number] 07/07/2017 09:35:41 07/07/2017 23:59: 59 CLS Outpatient HetlingerSean [id number] 06/16/2017 11:07:00 06/16/2017 23:59: 59 CLS Outpatient HetlingerSean [id number] 05/15/2017 09:46:10 05/15/2017 23:59: 59 CLS Outpatient HetlingerSean [id number] 04/23/2017 14:14:47 04/23/2017 23:59: 59 CLS Outpatient Aurora Martin [id number] 04/14/2017 09:19:24 04/14/2017 23:59: 59 CLS Outpatient HetlingerSean [id number] 03/20/2017 15:22:17 03/20/2017 23:59: 59 CLS Outpatient HetlingerSean [id number] 03/03/2017 17:59:33 03/03/2017 23:59: 59 CLS Outpatient Aurora Martin [id number] 01/09/2017 14:30:18 01/09/2017 23:59: 59 CLS Outpatient Hetlinger, Sean [id number] 01/02/2017 14:28:33 01/02/2017 23:59: 59 CLS Outpatient Hetlinger, Sean [id number] 12/27/2016 15:56:43 12/27/2016 23:59: 59 CLS Outpatient Hetlinger, Sean [id number] 2016 09:39:41 2016 23:59: 59 CLS Outpatient Hetlinger, Sean [id number] 09/19/2016 11:06:13 09/19/2016 23:59: 59 CLS Outpatient Hetlinger, Sean [id number] 07/01/2016 09:18:55 07/01/2016 23:59: 59 CLS Outpatient Hetlinger, Sean [id number] 06/17/2016 11:21:34 06/17/2016 23:59: 59 CLS Outpatient HetlingerSean [id number] 06/02/2016 11:45:43 06/02/2016 23:59: 59 CLS Outpatient Angus, W Sean [id number] 05/20/2016 10:07:14 05/20/2016 23:59: 59 CLS Outpatient HetlingerSean [id number] 04/01/2016 10:43:20 04/01/2016 23:59: 59 CLS Outpatient Hetlinger, Sean [id number] 12/09/2015 18:02:06 12/09/2015 23:59: 59 CLS Outpatient Miguel A Munoz [id number] 11/17/2015 15:42:52 11/17/2015 23:59: 59 CLS Outpatient HetlingerSean [id number] 11/03/2015 09:17:08 11/03/2015 23:59: 59 CLS Outpatient Hetlinger, Sean [id number] 10/09/2015 09:43:07 10/09/2015 23:59: 59 CLS Outpatient HetlingerSean [id number] 08/31/2015 15:29:16 08/31/2015 23:59: 59 CLS Outpatient Hetlinger, Sean [id number] 08/25/2015 11:01:57 08/25/2015 23:59: 59 CLS Outpatient HetlingerSean [id number] 06/05/2015 10:21:13 06/05/2015 23:59: 59 CLS Outpatient HetlingerSean [id number] 06/01/2015 07:40:23 06/01/2015 23:59: 59 CLS Outpatient Michelle Greco [id number] 05/11/2015 22:33:28 05/11/2015 23:59: 59 CLS Outpatient Amaris Gentile [id number] 05/11/2015 22:31:59 05/11/2015 23:59: 59 CLS Outpatient Kiarra Ramos [id number] 05/11/2015 22:07:32 05/11/2015 23:59: 59 CLS Outpatient HetlingerSean [id number] 05/11/2015 22:03:31 05/11/2015 23:59: 59 CLS Outpatient HetlingerSean [id number] 05/11/2015 21:59:14 05/11/2015 23:59: 59 CLS Outpatient HetlingerSean [id number] 05/11/2015 21:28:40 05/11/2015 23:59: 59 CLS Outpatient HetlingerSean [id number] 01/26/2015 16:10:40 01/26/2015 23:59: 59 CLS Outpatient Leena Haddad [id number] 01/12/2015 09:52:09 01/12/2015 23:59: 59 CLS Outpatient HetlingerSean [id number] 10/22/2014 14:36:19 10/22/2014 23:59: 59 CLS Outpatient Miguel A Munoz [id number] 08/22/2014 09:31:15 08/22/2014 23:59: 59 CLS Outpatient HetlingereSan [id number] 08/01/2014 10:40:38 08/01/2014 23:59: 59 CLS Outpatient HetlingSean magana [id number] 06/09/2014 15:49:13 06/09/2014 23:59: 59 CLS Outpatient Kiarra Ramos [id number] 03/14/2014 09:18:53 03/14/2014 23:59: 59 CLS Outpatient Leena Haddad [id number] 02/27/2014 14:57:30 02/27/2014 23:59: 59 CLS Outpatient Leena Haddad [id number] 12/02/2013 10:40:20 12/02/2013 23:59: 59 CLS Outpatient Sean Marie [id number] 11/25/2013 10:02:26 11/25/2013 23:59: 59 CLS Outpatient Sean Marie [id number] 11/14/2013 15:16:36 11/14/2013 23:59: 59 CLS Outpatient Kiarra Ramos [id number] 09/16/2019 07:51:00 23:59:59 CLS Outpatient [facility] RT CHRONIC BRONCHI TIS [id number] 09/05/2019 11:31:00 18:40:00 DIS Outpatient MATILDE ADAMS MD [facility] SDC CHRONIC NON-HEALING SIN US TRACT [id number] 09/02/2019 05:40:00 11:10:00 DIS Outpatient MATILDE ADAMS MD [facility] PREOP CHRONIC NON-HEALING SIN US TRACT [id number] 08/23/2019 07:08:00 23:59:59 CLS Outpatient [facility] RAD FISTULA [id number] 01/28/2019 10:10:00 08:20:00 DIS Inpatient MATILDE ADAMS MD [facility] 4TH SMALL BOWEL OBSTRUCTION [id number] 01/25/2019 10:27:00 23:59:59 CLS Outpatient MATILDE ADAMS MD [facility] RAD ABD PAIN [id number] 01/22/2019 19:50:00 18:30:00 DIS Inpatient MATILDE ADAMS MD [facility] 4TH POSSIBLE SMALL BOWEL OB STRUCTION [id number] 12/18/2018 19:19:00 17:50:00 DIS Inpatient MATILDE ADAMS MD [facility] 4TH N/V/D;ARF [id number] 09/06/2018 13:35:00 17:00:00 DIS Inpatient MATILDE ADAMS MD [facility] 4TH POST OP GASTRECTOMY MICHAEL K [id number] 09/06/2018 11:44:00 23:59:59 CLS Outpatient MATILDE ADAMS MD [facility] RAD ABD PAIN S/P SLEEVE GAS TRECTOMY [id number] 08/31/2018 22:27:00 04:30:00 DIS Emergency DEMETRIUS LOPEZ MD [facility] ER TEMP; BARIATRIC SURGERY COMPLICATIONS [id number] 08/30/2018 11:18:00 15:50:00 DIS Inpatient MATILDE ADAMS MD [facility] 4TH MORBID OBESITY [id number] 08/27/2018 12:07:00 15:47:00 DIS Outpatient MATILDE ADAMS MD [facility] PREOP MORBID OBESITY [id number] 08/15/2018 08:11:00 23:59:59 CLS Outpatient MATILDE ADAMS MD [facility] RAD REFLUX [id number] 07/31/2018 10:14:00 23:59:59 CLS Outpatient AUDREY AYOUB APRN [facility] RAD J44.9,G47.00 [id number] 07/18/2018 11:37:00 14:50:00 DIS Outpatient MATILDE ADAMS MD [facility] ENDO REFLUX [id number] 07/17/2018 14:37:00 15:09:00 DIS Outpatient MATILDE ADAMS MD [facility] PREOP EGD [id number] 03/08/2018 08:15:00 23:59:59 CLS Preadmit AUDREY AYOUB APRN [facility] PULM F41.9 ANXIETY J 45.909 ASTHMA [id number] 12/19/2017 13:00:00 00:01:00 DIS Outpatient AUDREY AYOUB APRN [facility] PULM F41.9 ANXIETY J 45.909 ASTHMA [id number] 12/18/2017 11:38:00 018 23:59:59 CLS Outpatient MEGA, [facility] RT RESTRICITVE ODESSA G DISEASE,ASTHMA [id number] 12/12/2017 15:37:00 018 23:59:59 CLS Outpatient MEGA, [facility] PULM J45.909 [id number] 12/05/2017 13:54:00 018 23:59:59 CLS Outpatient MEGA, [facility] RAD J45.909,J44.9 [id number] 11/30/2017 13:00:00 018 00:01:00 DIS Outpatient MEGA [facility] PULM F41.9 ANXIETY J 45.909 ASTHMA [id number] 10/19/2017 15:24:00 018 23:59:59 CLS Outpatient MEGA [facility] LAB J44.9 R09.02 I2 6.99 J98.4 [id number] 06/30/2017 08:37:00 017 23:59:59 CLS Outpatient MEGA [facility] LAB J44.9 [id number] 06/29/2017 14:43:00 017 23:59:59 CLS Outpatient WEN POOL DO [facility] RAD COPD,ASTHMA [id number] 06/14/2017 15:28:00 017 23:59:59 CLS Outpatient MEGA [facility] RAD J45.909 ASTHMA [id number] 06/20/2019 07:57:00 06/20/2019 23:59: 59 CLS Outpatient Carolina Barry [id number] 06/14/2019 08:15:00 06/14/2019 23:59: 59 CLS Outpatient Carolina Barry [id number] 05/27/2019 08:30:00 05/27/2019 23:59: 59 CLS Outpatient Jhonny, [place] [id number] 05/13/2019 08:22:00 05/13/2019 23:59: 59 CLS Outpatient Jhonny, [place] [id number] 04/26/2019 08:28:00 04/26/2019 23:59: 59 CLS Outpatient Jhonny, [place] [id number] 03/22/2019 10:20:00 03/22/2019 23:59: 59 CLS Outpatient Jhonny, [place] [id number] 02/26/2019 08:05:00 02/26/2019 23:59: 59 CLS Outpatient Jhonny, [place] [id number] 01/28/2019 08:14:00 01/28/2019 23:59: 59 CLS Outpatient Jhonny, [place] [id number] 01/14/2019 07:45:00 01/14/2019 23:59: 59 CLS Outpatient Jhonny, [place] [id number] 12/03/2018 07:49:00 12/03/2018 23:59: 59 CLS Outpatient Jhonny, [place] [id number] 08/27/2018 14:39:00 08/27/2018 23:59: 59 CLS Outpatient Jhonny, [place] [id number] 08/06/2018 15:45:00 08/06/2018 23:59: 59 CLS Outpatient Jhonny, [place] [id number] 06/26/2018 14:46:00 06/26/2018 23:59: 59 CLS Outpatient Jhonny, [place] [id number] 05/02/2018 11:05:00 05/02/2018 23:59: 59 CLS Outpatient Jhonny, [place] [id number] 04/30/2018 08:38:00 04/30/2018 23:59: 59 CLS Outpatient Jhonny, [place] [id number] 04/16/2018 12:00:00 04/16/2018 23:59: 59 CLS Outpatient Jhonny, [place] [id number] 04/03/2018 13:30:00 04/03/2018 23:59: 59 CLS Outpatient Jhonny, [place]
== END 2019-09-05 18:40 | disposition home or self-care (01) ==
LOC: SDC 11:31 → 4TH 16:55 → SDC 18:40
PROVIDERS: ATTEND Surgery
DX: K63.2 Fistula of intestine (principal); T85.79XA Infection and inflammatory reaction due to other internal prosthetic devices, implants and grafts, initial encounter; E66.01 Morbid (severe) obesity due to excess calories; J44.9 Chronic obstructive pulmonary disease, unspecified; M19.90 Unspecified osteoarthritis, unspecified site; E78.00 Pure hypercholesterolemia, unspecified; G47.33 Obstructive sleep apnea (adult) (pediatric); I10 Essential (primary) hypertension; E78.5 Hyperlipidemia, unspecified; G62.9 Polyneuropathy, unspecified; K21.9 Gastro-esophageal reflux disease without esophagitis; E03.9 Hypothyroidism, unspecified; F41.9 Anxiety disorder, unspecified; F32.9 Major depressive disorder, single episode, unspecified; Z90.89 Acquired absence of other organs; Z88.8 Allergy status to other drugs, medicaments and biological substances; Z88.5 Allergy status to narcotic agent; Z79.899 Other long term (current) drug therapy; Z98.84 Bariatric surgery status; Z68.39 Body mass index [BMI] 39.0-39.9, adult; Z80.3 Family history of malignant neoplasm of breast; Z80.1 Family history of malignant neoplasm of trachea, bronchus and lung; Z82.49 Family history of ischemic heart disease and other diseases of the circulatory system
CPT/HCPCS: 87070; 87075; 87076; 87077; 87081; 87181; 87184; 87205; 88304

== ENCOUNTER → 2019-09-16 | Outpatient (CLI) | payer BC ==
[~2019-09-16] MED LIST changes: +ARIP5TAB20 PO; -ARIP5TAB57 PO; +CATHETER FLUSH 10 ML SYR IV PRN; +HOLD METFORMIN - RECEIVED CONTRAST 20 ML VIAL IV SCH; +HYDR-34 PO; +IOHEXOL 350 MG/ML 100 ML (OMNIPAQUE 350) VIAL IV ONE; +LAMO100T PO; -LAMO100T5 PO; +NS 100 ML (IVPB) BAG IV ONE
[2019-09-16 12:09] LABS: BUN/CREATININE RATIO 15; CREATININE SERUM 0.85 MG/DL (0.60-1.30); GFR ESTIMATED > 60
--- NOTE | 2019-09-16 13:51 | Diagnostic Imaging Report ---
PROCEDURE: CT angiography of the chest with contrast. TECHNIQUE: Multiple contiguous axial images were obtained through the chest after uneventful bolus administration of intravenous contrast. 3D reconstructed CTA MIP acquisitions were also performed. Auto Exposure Controls were utilized during the CT exam to meet ALARA standards for radiation dose reduction. INDICATION: Hypoxia and restrictive lung disease. COMPARISON: Correlation is made with prior CT angiogram of the chest from 12/05/2017. FINDINGS: Pulmonary arterial system is without thromboembolism. No filling defects are seen within central, lobar, or segmental branches. The thoracic aorta is normal in caliber. No dissection is identified. No pericardial or pleural fluid is identified. There is some scarring or subsegmental atelectasis in the lingula. Otherwise, the lungs are clear. No infiltrates or masses are seen. There are some pleural calcifications identified in the right base. Upper abdomen is unremarkable. IMPRESSION: No evidence of pulmonary embolism or thoracic aortic dissection. Dictated by: Dictated on workstation # [id number]
== END ==
LOC: RT 07:51
PROVIDERS: ATTEND Nurse Practitioner Family
DX: I26.99 Other pulmonary embolism without acute cor pulmonale (principal); J98.4 Other disorders of lung; R94.2 Abnormal results of pulmonary function studies; R09.02 Hypoxemia; G47.33 Obstructive sleep apnea (adult) (pediatric); J42 Unspecified chronic bronchitis; J45.909 Unspecified asthma, uncomplicated
CPT/HCPCS: 36415; 71275; 82565; 84520; 94060; 94726; 94729

== ENCOUNTER → 2021-01-07 | Outpatient (CLI) | payer MEDICARE, OTHER ==
[~2021-01-07] MED LIST changes: +ACHYD1T PO; +ALPR.25T PO; -ALPR0.254 PO; -ARIP5TAB20 PO; +ARIP5TAB57 PO; -CATHETER FLUSH 10 ML SYR IV PRN; -HOLD METFORMIN - RECEIVED CONTRAST 20 ML VIAL IV SCH; -HYDR-3816 PO; -HYDR-3820 PO; -IOHEXOL 350 MG/ML 100 ML (OMNIPAQUE 350) VIAL IV ONE; -LAMO100T PO; +LAMO100T5 PO; -NS 100 ML (IVPB) BAG IV ONE; +ONDA-105 PO; -ONDA4TAB10 PO; -PANT40TA3 PO; +PANT40TA52 PO
== END ==
LOC: RT 14:58
PROVIDERS: ATTEND Nurse Practitioner Family
DX: J45.909 Unspecified asthma, uncomplicated (principal)
CPT/HCPCS: 94060; 94726; 94729